=== PATIENT | female | born 1955 | race Caucasian/White ===

== ENCOUNTER 2017-01-18 08:32 | Emergency (ER) | payer OTHER ==
[~2017-01-18] VITALS: Ht 162.6 cm; Wt 68.0 kg
[~2017-01-18 08:32] MED LIST: ACET-1175 PO; ATOR-24 PO; CLC100 PO; CYAN100T PO; FLX10 PO; GLC500 PO; IMT100 PO; LEVO88TA3 PO; LISI-461; LISI10TA PO; MISO200T PO; ONDA4TAB46 PO; RANI150T3 PO; REPA0.5T PO; SITA100T3 PO; TRAM-10 PO; TRAZ50TA35 PO; VENL150C PO
[2017-01-18 08:40] VITALS: Ht 162.6 cm; Wt 68.0 kg
[2017-01-18 09:38] LABS: HEMATOCRIT 38.5 % (37-47); MEAN CELL VOLUME 86.3 fL (80-100); MEAN CORPUSCULAR HGB CONC 34.8 g/dl (32-36); MEAN PLATELET VOLUME 9.3 fL (7.4-10.4); PLATELET COUNT 297 K/uL (130-400); RED BLOOD COUNT 4.46 M/uL (4.2-5.4); WHITE BLOOD COUNT 14.82 K/uL (4.8-10.8)
--- NOTE | 2017-01-18 09:45 | DIAGNOSTIC IMAGING REPORT ---
CHEST ONE VIEW PORTABLE CLINICAL HISTORY: EPIGASTRIC PAIN nausea COMPARISON STUDY: 06/18/2015 FINDINGS: Several old right-sided rib fractures. Lungs are considered clear. Diaphragms smooth. IMPRESSION: No acute process. Electronically signed by: Konrad Issa M.D. 01/18/2017 9:43 AM Dictated Date/Time: 01/18/2017 9:43 AM
[2017-01-18 09:46] LABS: CALCIUM 9.3 mg/dl (8.5-10.1); CREATININE 1.3 mg/dl (0.60-1.20); POTASSIUM 3.8 mmol/L (3.5-5.1)
[2017-01-18 09:49] LABS: ALB/GLOB RATIO 1.1 (0.9-2)
[2017-01-18] MEDS ORDERED: ONDANSETRON INJ 2 MG/ML 2 ML VIAL IV STA (09:49)
[2017-01-18] MEDS ORDERED: SODIUM CHLORIDE 0.9% 1000ML 1,000 ML IV STA (09:49)
[2017-01-18 10:15] LABS: BASO % 0.1 %; BASO ABS # 0.02 K/uL (0-0.2); COMPLETE YES; EOS % 0.5 %; IG% 0.2 %; LYMPH % 9.9 %; LYMPH ABS # 1.46 K/uL (1.2-3.4); NEUT % 86.3 %
[2017-01-18] MEDS ORDERED: ONDA4TAB10 SL (11:38)
--- NOTE | 2017-01-18 11:39 | EMERGENCY ROOM VISIT NOTE ---
History Report prepared by oLy: Farhan Jennings Under the Supervision of: Dr. Asif Painter D.O. First contact with patient: 09:43 Chief Complaint: ILLNESS Stated Complaint: CHEST PAIN History of Present Illness The patient is a 61 year old female who presents to the Emergency Room with complaints of recurrent nausea & vomiting for the past several weeks. The patient notes that the vomiting was worse last night. The vomit was yellow and contained dried blood. The patient states that she vomits 20-30 times per day. The patient has intermittently taken Zofran, which usually helps very little. The patient was feeling pretty good this morning until she suddenly became lightheaded at work. At that time she was also experiencing chest pain and was having trouble moving her jaw. The patient denies diarrhea or burning with urination. She has been having bowel movements. The patient has had multiple previous endoscopies. The patient has a history of gastric ulcers and is s/p gastric bypass. Source of History: patient Onset: several weeks Position: other (GI) Quality: other (nausea & vomiting) Timing: other (recurrent) Modifying Factors (Relieving): other (Zofran) Associated Symptoms: + chest pain, No diarrhea, No urinary symptoms Review of Systems See HPI for pertinent positives & negatives. A total of 10 systems reviewed and were otherwise negative. Past Medical & Surgical Medical Problems: (1) Alcohol Abuse-Unspec (2) Anemia, iron deficiency (3) Depressive Disorder Nec (4) Diab Marita Wo Comp Type Ii,Or Nos/Uncontrolled (5) Hyperlipidemia Nec/Nos (6) Hypertension Nos (7) Hypothyroidism (8) Tobacco Use Disorder Surgical Problems: (1) Status post appendectomy (2) Status post cholecystectomy (3) Status post gastric bypass for obesity (4) Status post hysterectomy Family History Diabetes mellitus FH: heart disease Social History Smoking Status: Current Some Day Smoker Alcohol Use: none Drug Use: none Marital Status: Occupation Status: employed Current/Historical Medications Scheduled Acetaminophen (Tylenol), 650 MG PO Q4HR PRN Atorvastatin (Lipitor), 40 MG PO DAILY Cyanocobalamin (Vitamin B-12), 100 MCG PO DAILY Docusate Sodium (Docusate Sodium), 100 MG PO BID Levothyroxine Sodium (Levothyroxine Sodium), 1 TAB PO DAILY Lisinopril (Prinivil), 10 MG PO DAILY Lisinopril (Lisinopril), 10 DAILY Metformin HCL (Glucophage *), 1,000 MG PO BID Misoprostol (Cytotec), 100 MCG PO QID Ondasetron Odt (Zofran Odt), 4 MG SL Q6H Ranitidine Hcl (Zantac), 150 MG PO BID Repaglinide (Prandin), 0.5 MG PO AC Sitagliptin Phosphate (Januvia), 100 MG PO DAILY Sumatriptan Succinate (Imitrex), 100 MG PO PRN Venlafaxine Hcl (Effexor Xr), 150 MG PO DAILY Scheduled PRN Cyclobenzaprine HCl (Cyclobenzaprine HCl), MG PO TID PRN for Muscle Spasms Ondansetron Hcl (Zofran), 4 MG PO Q6 PRN for Nausea Tramadol (Ultram), 50 MG PO Q6 PRN for Pain Trazodone Hcl (Trazodone), 50 MG PO HS PRN for Sleep Allergies Coded Allergies: Sulfa Antibiotics (Verified Allergy, Severe, FACE/THROAT SWELL UP, 01/18/17 ) Physical Exam Vital Signs Date Time Temp Pulse Resp B/P Pulse Ox O2 Delivery O2 Flow Rate FiO2 01/18/17 11:02 98 16 121/68 01/18/17 10:03 103 16 120/69 01/18/17 08:40 92 Room Air Physical Exam CONSTITUTIONAL/VITAL SIGNS: Reviewed / noted above. GENERAL: Non-toxic in appearance. INTEGUMENTARY: Warm, dry, and [place]. HEAD: Normocephalic. EYES: without scleral icterus or trauma. ENT/OROPHARYNX: clear and moist. LYMPHADENOPATHY/NECK: Is supple without lymphadenopathy or meningismus. RESPIRATORY: Lungs clear and equal. CARDIOVASCULAR: Regular rate and rhythm. GI/ABDOMEN: Soft and nontender. No organomegaly or pulsatile mass. No rebound or guarding. Normal bowel sounds. EXTREMITIES: Warm and well perfused. BACK: No CVA tenderness. NEUROLOGICAL: Intact without focal deficits. PSYCHIATRIC: normal affect. MUSCULOSKELETAL: Normally developed with good muscle tone. Medical Decision & Procedures ER Provider Diagnostic Interpretation: X ray results and stated below per my interpretation and radiology interpretation. CHEST ONE VIEW PORTABLE CLINICAL HISTORY: EPIGASTRIC PAIN nausea COMPARISON STUDY: 06/18/2015 FINDINGS: Several old right-sided rib fractures. Lungs are considered clear. Diaphragms smooth. IMPRESSION: No acute process. Electronically signed by: Konrad Issa M.D. 01/18/2017 9:43 AM Dictated Date/Time: 01/18/2017 9:43 AM Laboratory Results 01/18/17 08:38 Red Blood Count 4.46, Mean Corpuscular Volume 86.3, Mean Corpuscular Hemoglobin 30.0, Mean Corpuscular Hemoglobin Concent 34.8, Mean Platelet Volume 9.3, Neutrophils (%) (Auto) 86.3, Lymphocytes (%) (Auto) 9.9, Monocytes (%) (Auto) 3.0, Eosinophils (%) (Auto) 0.5, Basophils (%) (Auto) 0.1, Neutrophils # (Auto) 12.80, Lymphocytes # (Auto) 1.46, Monocytes # (Auto) 0.44, Eosinophils # (Auto) 0.07, Basophils # (Auto) 0.02 01/18/17 08:38 Test 01/18/17 08:38 White Blood Count 14.82 K/uL (4.8-10.8) Red Blood Count 4.46 M/uL (4.2-5.4) Hemoglobin 13.4 g/dL (12.0-16.0) Hematocrit 38.5 % (37-47) Mean Corpuscular Volume 86.3 fL (80-100) Mean Corpuscular Hemoglobin 30.0 pg (25-34) Mean Corpuscular Hemoglobin Concent 34.8 g/dl (32-36) Platelet Count 297 K/uL (130-400) Mean Platelet Volume 9.3 fL (7.4-10.4) Neutrophils (%) (Auto) 86.3 % Lymphocytes (%) (Auto) 9.9 % Monocytes (%) (Auto) 3.0 % Eosinophils (%) (Auto) 0.5 % Basophils (%) (Auto) 0.1 % Neutrophils # (Auto) 12.80 K/uL (1.4-6.5) Lymphocytes # (Auto) 1.46 K/uL (1.2-3.4) Monocytes # (Auto) 0.44 K/uL (0.11-0.59) Eosinophils # (Auto) 0.07 K/uL (0-0.5) Basophils # (Auto) 0.02 K/uL (0-0.2) RDW Standard Deviation 42.3 fL (36.4-46.3) RDW Coefficient of Variation 13.3 % (11.5-14.5) Immature Granulocyte % (Auto) 0.2 % Immature Granulocyte # (Auto) 0.03 K/uL (0.00-0.02) Red Blood Cell Morphology Unremarkable Anion Gap 12.0 mmol/L (3-11) Est Creatinine Clear Calc Drug Dose 43.6 ml/min Estimated GFR () 51.6 Estimated GFR (Non- 44.6 BUN/Creatinine Ratio 10.0 (10-20) Calcium Level 9.3 mg/dl (8.5-10.1) Total Bilirubin 0.8 mg/dl (0.2-1) Aspartate Amino Transf (AST/SGOT) 13 U/L (15-37) Alanine Aminotransferase (ALT/SGPT) 16 U/L (12-78) Alkaline Phosphatase 87 U/L (45-117) Total Protein 7.7 gm/dl (6.4-8.2) Albumin 4.0 gm/dl (3.4-5.0) Globulin 3.7 gm/dl (2.5-4.0) Albumin/Globulin Ratio 1.1 (0.9-2) Laboratory results as stated above per my review. Medications Administered Medications (Trade) Dose Ordered Sig/Aaron Route Start Time Stop Time Status Last Admin Dose Admin Sodium Chloride (Nss 1000ml) 1,000 ml @ 999 mls/hr Q1H1M STAT IV 01/18/17 09:49 01/18/17 10:49 DC 01/18/17 10:01 999 MLS/HR Ondansetron HCl (Zofran Inj) 4 mg NOW STAT IV 01/18/17 09:49 01/18/17 09:50 DC 01/18/17 10:01 4 MG ECG Indication: chest pain Rate (beats per minute): 115 Rhythm: sinus tachycardia Findings: no acute ischemic change, no ectopy ED Course 0944: Previous medical records were reviewed. The patient was evaluated in room B3b. A complete history and physical examination was performed. 0949: NSS 1000 ml @ 999 mls/hr, Zofran 4 mg IV. 1140: Reassessed the patient. Discussed the discharge instructions with her. She verbalized understanding and agreement. She would like something for her headache before being discharged. 1145: Morphine Sulfate 4 mg IV. Medical Decision Differential diagnosis: Etiologies such as gastroenteritis, food borne illness, infections, appendicitis , diverticulitis, inflammatory bowel disease, obstruction, GI bleed, biliary pathology, as well as others were entertained. This is a 61-year-old female who presents to the ED with a chief complaint of nausea and vomiting that has been going on for "a long time". She states that she feels it is reflux. He has recently gotten worse. The patient reports a history of gastric bypass surgery. She has not seen a occasional caregiver for the symptoms recently. She reports vomiting 2 this morning as well as feeling a little lightheaded and sometimes some chest discomfort after vomiting. Her physical exam was unremarkable. She is in no distress. Vital signs are stable. Chest x-ray was negative for acute disease. White blood cell count was 14. Complete medical panel was unremarkable. EKG shows sinus tach. The patient was treated with IV fluids and IV Zofran. She was told results the test. She was told to follow-up with her occasional caregiver. She was given a shot of IV Morphine for a headache prior to DC. She will return for any worsening or new concerns. Impression Primary Impression: Vomiting Scribe Attestation The scribe's documentation has been prepared under my direction and personally reviewed by me in its entirety. I confirm that the note above accurately reflects all work, treatment, procedures, and medical decision making performed by me. Departure Information Dispostion Home / Self-Care Prescriptions Ondasetron Odt (ZOFRAN ODT) 4 Mg Tab 4 MG SL Q6H for Nausea, #15 TAB Prov: Asif Painter D.O. 01/18/17 Referrals Nolan Royal M.D.([facility]) (PCP) Forms HOME CARE DOCUMENTATION FORM, IMPORTANT VISIT INFORMATION, WORK / SCHOOL INSTRUCTIONS Patient Instructions My [facility] Additional Instructions Follow-up with your occasional caregiver for recheck. Call today for an appointment. Follow-up with your family doctor this week for recheck. Zofran: Allow one tablet to dissolve under the tongue every 6 hours as needed for nausea or vomiting. Follow-up with your doctor for further care and evaluation in 1-2 days. Return to the emergency department for worsening or new symptoms or any concerns. You have been examined and treated today on an emergency basis only. This is not a substitute for, or an effort to provide, complete comprehensive medical care. It is impossible to recognize and treat all injuries or illnesses in a single emergency department visit. It is therefore important that you follow up closely with your doctor. Call as soon as possible for an appointment.
[2017-01-18] MEDS ORDERED: MoRPHine SULFATE 4 MG/ML 1 ML CARP\\VIAL IV STA (11:42)
[2017-01-18 12:34] VITALS: BP 107/71; PULSE 113; O2SAT 98
== END 2017-01-18 12:36 | disposition home or self-care (01) ==
LOC: EDBD 08:32 → C.EDB 08:36
DX: R11.10 Vomiting, unspecified (principal); D50.9 Iron deficiency anemia, unspecified; F32.9 Major depressive disorder, single episode, unspecified; E11.9 Type 2 diabetes mellitus without complications; E78.5 Hyperlipidemia, unspecified; I10 Essential (primary) hypertension; E03.9 Hypothyroidism, unspecified; F17.200 Nicotine dependence, unspecified, uncomplicated; Z83.3 Family history of diabetes mellitus; Z82.49 Family history of ischemic heart disease and other diseases of the circulatory system; Z79.899 Other long term (current) drug therapy; Z98.84 Bariatric surgery status

== ENCOUNTER 2017-01-24 10:13 | Emergency (ER) | payer OTHER ==
[~2017-01-24] VITALS: Ht 165.1 cm; Wt 64.8 kg
[~2017-01-24 10:13] MED LIST changes: +ONDA4TAB10 SL
[2017-01-24 10:17] VITALS: Ht 165.1 cm; Wt 64.8 kg
[2017-01-24] MEDS ORDERED: MoRPHine SULFATE 4 MG/ML 1 ML CARP\\VIAL IV STA ×2 (10:39→11:42)
[2017-01-24] MEDS ORDERED: ONDANSETRON INJ 2 MG/ML 2 ML VIAL IV STA (10:39)
[2017-01-24] MEDS ORDERED: SODIUM CHLORIDE 0.9% 1000ML 1,000 ML IV STA (10:39)
[2017-01-24] MEDS ORDERED: SODIUM CHLORIDE 0.9% 500ML 500 ML IV STA (10:39)
--- NOTE | 2017-01-24 10:45 | EMERGENCY ROOM VISIT NOTE ---
History Report prepared by Loy: Wilmer Quevedo Under the Supervision of: Dr. Misti Childers M.D. First contact with patient: 10:26 Chief Complaint: DEHYDRATION Stated Complaint: DEHYDRATED, HEADACHE, NAUSEA-SENT BY 'S OFFICE History of Present Illness The patient is a 61 year old female who presents to the Emergency Room with complaints of persistent nausea for the past 6 days. The patient also complains of vomiting, headache, lightheadedness and dehydration. She notes that she is not able to keep anything down including water. Last week, the patient presented to the ED via ALS for similar symptoms and notes that her symptoms have not improved. The patient had an appointment with GI this morning who recommended she present to the ED for further evaluation and testing. She denies fever at this time. Source of History: patient Onset: the past 6 days Position: other (global) Timing: other (persistent) Associated Symptoms: + headache, + vomiting, No fevers Note: Other associated symptoms: lightheadedness, dehydration Review of Systems See HPI for pertinent positives & negatives. A total of 10 systems reviewed and were otherwise negative. Past Medical & Surgical Medical Problems: (1) Alcohol Abuse-Unspec (2) Anemia, iron deficiency (3) Depressive Disorder Nec (4) Diab Marita Wo Comp Type Ii,Or Nos/Uncontrolled (5) Hyperlipidemia Nec/Nos (6) Hypertension Nos (7) Hypothyroidism (8) Tobacco Use Disorder Surgical Problems: (1) Status post appendectomy (2) Status post cholecystectomy (3) Status post gastric bypass for obesity (4) Status post hysterectomy Family History Diabetes mellitus FH: heart disease Social History Smoking Status: Current Every Day Smoker Alcohol Use: none Drug Use: none Marital Status: Occupation Status: employed Current/Historical Medications Scheduled Folic Acid (Folvite), 1 MG PO DAILY Nortriptyline (Pamelor), 25 MG PO HS Omeprazole (Prilosec), 20 MG PO DAILY Omeprazole (Prilosec), 1 CAP PO BID Venlafaxine Hcl (Venlafaxine Extended Rel), 75 MG PO DAILY Scheduled PRN Cyclobenzaprine Hcl (Flexeril), 10 MG PO TID PRN for Muscle Spasms Ondansetron Odt (Zofran Odt), 8 MG SL Q6H PRN for Nausea Trazodone Hcl (Trazodone), 1-2 TAB PO HS PRN for Sleep Allergies Coded Allergies: Sulfa Antibiotics (Verified Allergy, Severe, FACE/THROAT SWELL UP, 01/24/17 ) Physical Exam Vital Signs Date Time Temp Pulse Resp B/P Pulse Ox O2 Delivery O2 Flow Rate FiO2 01/24/17 15:15 68 20 115/78 99 01/24/17 13:57 36.6 73 20 120/70 99 Room Air 01/24/17 12:22 72 18 111/55 95 Room Air 01/24/17 11:41 67 18 111/53 97 Room Air 01/24/17 11:05 76 01/24/17 10:17 36.9 88 20 115/75 98 Room Air Physical Exam Vital signs reviewed. General: Well-appearing female, in significant distress. HEENT: No scleral icterus, PERRLA, neck supple. Atraumatic. Dry mucus membranes. Cardiovascular: Regular rate and rhythm, no extra sounds. Pulmonary: Clear to auscultation bilaterally, normal work of breathing. Abdomen: Soft, mild diffuse abdominal tender, no rebound or guarding, positive bowel sounds. Musculoskeletal: Atraumatic, no peripheral edema. Neurologic: Patient awake alert and oriented x 3, full strength in all 4 extremities. Cranial nerves 2 through 12 grossly intact. Skin: Warm, dry, no rash Medical Decision & Procedures ER Provider Diagnostic Interpretation: X-ray results as stated below per interpretation by me and the radiologist: PA CHEST WITH ABDOMINAL SERIES CLINICAL HISTORY: Generalized abdominal pain. Vomiting. FINDINGS: A PA chest radiograph is compared to study dated 01/18/2017. The cardiac silhouette is normal for projection. There is atherosclerotic calcification of the thoracic aorta. Chronic interstitial thickening is similar to previous. There is no airspace consolidation or pleural effusion. No pneumothorax is seen. The skeletal structures are osteopenic. There are healed right-sided rib fractures. Degenerative changes and mild scoliosis are noted in the thoracic spine. Supine and erect abdominal radiographs are correlated with abdominal CT dated 06/18/2015. Suture material is present at the level of the esophageal hiatus. When correlated with prior CT scans, this is consistent with previous [place]-en-Y gastric bypass surgery. No bowel obstruction is identified. No evidence of intraperitoneal free air is seen. Moderate colonic fecal retention is observed. There are numerous calcified phleboliths in the pelvis. There is mild lumbosacral spondylosis. The bony pelvis is grossly intact. IMPRESSION: 1. No active disease in the chest. 2. Postoperative changes are consistent with a history of [place]-en-Y gastric bypass surgery when correlated with the prior CT scan. 3. There is no radiographic evidence of bowel obstruction. No intraperitoneal free air is seen. 4. Moderate colonic fecal retention. Electronically signed by: Yury Brown M.D. 01/24/2017 11:46 AM Dictated Date/Time: 01/24/2017 11:42 AM Laboratory Results 01/24/17 10:54 Red Blood Count 3.93, Mean Corpuscular Volume 88.5, Mean Corpuscular Hemoglobin 30.3, Mean Corpuscular Hemoglobin Concent 34.2, Mean Platelet Volume 8.7, Neutrophils (%) (Auto) 65.2, Lymphocytes (%) (Auto) 27.0, Monocytes (%) (Auto) 5.4, Eosinophils (%) (Auto) 1.8, Basophils (%) (Auto) 0.4, Neutrophils # (Auto) 3.24, Lymphocytes # (Auto) 1.34, Monocytes # (Auto) 0.27, Eosinophils # (Auto) 0.09, Basophils # (Auto) 0.02 01/24/17 10:54 Test 01/24/17 10:54 White Blood Count 4.97 K/uL (4.8-10.8) Red Blood Count 3.93 M/uL (4.2-5.4) Hemoglobin 11.9 g/dL (12.0-16.0) Hematocrit 34.8 % (37-47) Mean Corpuscular Volume 88.5 fL (80-100) Mean Corpuscular Hemoglobin 30.3 pg (25-34) Mean Corpuscular Hemoglobin Concent 34.2 g/dl (32-36) Platelet Count 250 K/uL (130-400) Mean Platelet Volume 8.7 fL (7.4-10.4) Neutrophils (%) (Auto) 65.2 % Lymphocytes (%) (Auto) 27.0 % Monocytes (%) (Auto) 5.4 % Eosinophils (%) (Auto) 1.8 % Basophils (%) (Auto) 0.4 % Neutrophils # (Auto) 3.24 K/uL (1.4-6.5) Lymphocytes # (Auto) 1.34 K/uL (1.2-3.4) Monocytes # (Auto) 0.27 K/uL (0.11-0.59) Eosinophils # (Auto) 0.09 K/uL (0-0.5) Basophils # (Auto) 0.02 K/uL (0-0.2) RDW Standard Deviation 44.3 fL (36.4-46.3) RDW Coefficient of Variation 13.6 % (11.5-14.5) Immature Granulocyte % (Auto) 0.2 % Immature Granulocyte # (Auto) 0.01 K/uL (0.00-0.02) Anion Gap 8.0 mmol/L (3-11) Est Creatinine Clear Calc Drug Dose 53.8 ml/min Estimated GFR () 70.9 Estimated GFR (Non- 61.2 BUN/Creatinine Ratio 10.3 (10-20) Calcium Level 8.7 mg/dl (8.5-10.1) Magnesium Level 2.3 mg/dl (1.8-2.4) Total Bilirubin 0.3 mg/dl (0.2-1) Direct Bilirubin 0.1 mg/dl (0-0.2) Aspartate Amino Transf (AST/SGOT) 8 U/L (15-37) Alanine Aminotransferase (ALT/SGPT) 28 U/L (12-78) Alkaline Phosphatase 79 U/L (45-117) Total Protein 6.7 gm/dl (6.4-8.2) Albumin 3.3 gm/dl (3.4-5.0) Lipase 243 U/L (73-393) Laboratory results per my review. Medications Administered Medications (Trade) Dose Ordered Sig/Aaron Route Start Time Stop Time Status Last Admin Dose Admin Morphine Sulfate (MoRPHine SULFATE INJ) 4 mg NOW STAT IV 01/24/17 10:39 01/24/17 10:41 DC 01/24/17 11:02 4 MG Ondansetron HCl 4 mg 4 mg NOW STAT IV 01/24/17 10:39 01/24/17 10:41 DC 01/24/17 11:01 4 MG Sodium Chloride 1,000 ml @ 150 mls/hr Q6H40M STAT IV 01/24/17 10:39 01/24/17 15:57 DC 01/24/17 11:40 150 MLS/HR Sodium Chloride (Nss 500ml) 500 ml @ 999 mls/hr Q31M STAT IV 01/24/17 10:39 01/24/17 11:09 DC 01/24/17 11:01 999 MLS/HR Morphine Sulfate (MoRPHine SULFATE INJ) 4 mg NOW STAT IV 01/24/17 11:42 01/24/17 11:43 DC 01/24/17 11:54 4 MG Miscellaneous (Soap Suds Enema) 1 ea NOW STAT NE 01/24/17 11:51 01/24/17 11:53 DC 01/24/17 12:33 1 EA Magnesium Citrate (Citrate Of Magnesia Soln) 300 ml NOW ONCE PO 01/24/17 13:15 01/24/17 13:16 DC 01/24/17 13:18 296 ML Methylprednisolone Sodium Succinate (Solu-Medrol IV) 125 mg NOW STAT IV 01/24/17 14:02 01/24/17 14:04 DC 01/24/17 14:18 125 MG Acetaminophen/ Hydrocodone Bitart 1 tab 1 tab NOW STAT PO 01/24/17 14:02 01/24/17 14:04 DC 01/24/17 14:18 1 TAB Promethazine HCl/ Sodium Chloride (Phenergan Inj/ Nss 50ml) 50.5 ml @ 204 mls/hr NOW STAT IV 01/24/17 14:02 01/24/17 14:16 DC 01/24/17 14:19 204 MLS/HR ED Course 1036: Past medical records reviewed. The patient was evaluated in room A4. A complete history and physical examination was performed. 1039: Ordered NSS 500 ml @ 999 mls/hr IV, NSS 1000 ml @ 150 mls/hr IV, Zofran Inj 4 mg IV, Morphine Sulfate 4 mg IV. 1142: Ordered Morphine Sulfate 4 mg IV. 1151: Ordered Soap Suds Enema 1 ea NE. 1315: Ordered Magnesium Citrate 300 ml PO. 1402: Ordered Promethazine HCl 12.5 mg/ NSS 50.5 ml @ 204 mls/hr IV, [place] 5/ 325 Tab 1 tab PO, Solu-Medrol IV 125 mg IV. 1445: Upon reevaluation, the patient appeared to have improvement of her symptoms. I discussed findings with her. She verbalized agreement of the treatment plan. The patient was discharged home. Medical Decision Differential diagnosis: Etiologies such as gastroenteritis, food borne illness, infections, appendicitis , diverticulitis, inflammatory bowel disease, obstruction, GI bleed, biliary pathology, as well as others were entertained. This pt was evaluated and appeared to be in no distress. IV access was obtained and lab work was drawn. PT was placed on the quality assurance monitor. She was hydrated with NSS and given IV morphine and zofran. She continued to c/o a headache and nausea. Abd XR series is c/w constipation. Pt felt comfortable that this is a typical [place] for her, therefore no further imaging of the head was performed. Pt was given po mag citrate for constipation, IV solu-medral and po norco. She did require additional morphine for pain. The pt was informed of the findings. She was asked to f/u with PCP this week and GI for further management. I do not feel comfortable Rx controlled medications to this pt as she is exhibiting some red flags with pain med requests. She was asked to continue her medications as prescribed and return to the ED for worsening of symptoms or any medical concerns. Impression Primary Impression: Constipation by delayed colonic transit Additional Impression: Migraine Scribe Attestation The scribe's documentation has been prepared under my direction and personally reviewed by me in its entirety. I confirm that the note above accurately reflects all work, treatment, procedures, and medical decision making performed by me. Departure Information Dispostion Home / Self-Care Prescriptions Omeprazole (PRILOSEC) 20 Mg Cap 1 CAP PO BID for 14 Days, #28 CAP 3 Refills Prov: Misti Childers M.D. 01/24/17 Referrals Nolan Royal M.D.([facility]) (PCP) Forms HOME CARE DOCUMENTATION FORM, IMPORTANT VISIT INFORMATION, WORK / SCHOOL INSTRUCTIONS Patient Instructions My [facility] Additional Instructions Diagnosis: Constipation, migraine Prilosec 20 mg twice daily for 2 weeks. MiraLAX 1 capful 1-2 times daily for regular bowel movement. Increase the fiber in your diet. Follow-up with your educational program director and primary care physician this week for reevaluation. Return to the ER for worsening of symptoms or any medical concerns. Problem Qualifiers Additional Impression: Migraine Migraine type: unspecified Status migrainosus presence: without status migrainosus Intractability: not intractable Qualified Codes: G43.909 - Migraine, unspecified, not intractable, without status migrainosus
[2017-01-24] MEDS ORDERED: CYCL10TA6 PO (10:50)
[2017-01-24] MEDS ORDERED: NORT25CA PO (10:50)
[2017-01-24] MEDS ORDERED: FOLI1TAB7 PO (10:50)
[2017-01-24] MEDS ORDERED: VENL75CA73 PO (10:50)
[2017-01-24] MEDS ORDERED: ONDA8TAB62 SL (10:50)
[2017-01-24] MEDS ORDERED: PRLSR20 PO (10:50)
[2017-01-24] MEDS ORDERED: TRAZ100T29 PO (10:50)
[2017-01-24 11:08] LABS: BASO % 0.4 %; BASO ABS # 0.02 K/uL (0-0.2); COMPLETE YES; EOS % 1.8 %; HEMATOCRIT 34.8 % (37-47); IG% 0.2 %; LYMPH ABS # 1.34 K/uL (1.2-3.4); MEAN CELL VOLUME 88.5 fL (80-100); MEAN CORPUSCULAR HEMOGLOBIN 30.3 pg (25-34); MEAN CORPUSCULAR HGB CONC 34.2 g/dl (32-36); MEAN PLATELET VOLUME 8.7 fL (7.4-10.4); MONO % 5.4 %; NEUT % 65.2 %; PLATELET COUNT 250 K/uL (130-400); RED BLOOD COUNT 3.93 M/uL (4.2-5.4); WHITE BLOOD COUNT 4.97 K/uL (4.8-10.8)
[2017-01-24 11:24] LABS: BUN/CREATININE RATIO 10.3 (10-20); CALCIUM 8.7 mg/dl (8.5-10.1); MAGNESIUM 2.3 mg/dl (1.8-2.4); POTASSIUM 3.4 mmol/L (3.5-5.1)
--- NOTE | 2017-01-24 11:47 | DIAGNOSTIC IMAGING REPORT ---
PA CHEST WITH ABDOMINAL SERIES CLINICAL HISTORY: Generalized abdominal pain. Vomiting. FINDINGS: A PA chest radiograph is compared to study dated 01/18/2017. The cardiac silhouette is normal for projection. There is atherosclerotic calcification of the thoracic aorta. Chronic interstitial thickening is similar to previous. There is no airspace consolidation or pleural effusion. No pneumothorax is seen. The skeletal structures are osteopenic. There are healed right-sided rib fractures. Degenerative changes and mild scoliosis are noted in the thoracic spine. Supine and erect abdominal radiographs are correlated with abdominal CT dated 06/18/2015. Suture material is present at the level of the esophageal hiatus. When correlated with prior CT scans, this is consistent with previous [place]-en-Y gastric bypass surgery. No bowel obstruction is identified. No evidence of intraperitoneal free air is seen. Moderate colonic fecal retention is observed. There are numerous calcified phleboliths in the pelvis. There is mild lumbosacral spondylosis. The bony pelvis is grossly intact. IMPRESSION: 1. No active disease in the chest. 2. Postoperative changes are consistent with a history of [place]-en-Y gastric bypass surgery when correlated with the prior CT scan. 3. There is no radiographic evidence of bowel obstruction. No intraperitoneal free air is seen. 4. Moderate colonic fecal retention. Electronically signed by: Yury Brown M.D. 01/24/2017 11:46 AM Dictated Date/Time: 01/24/2017 11:42 AM
[2017-01-24] MEDS ORDERED: SOAP SUDS ENEMA PR STA (11:51)
[2017-01-24] MEDS ORDERED: MAGNESIUM CITRATE 296 ML/BTL PO ONE (13:15)
[2017-01-24 13:57] VITALS: TEMP 36.6
[2017-01-24] MEDS ORDERED: HYDROCODONE/ACETAMOPHEN 5/325MG TAB PO STA (14:02)
[2017-01-24] MEDS ORDERED: PROMETHAZINE HCL INJ 12.5 MG in SODIUM CHLORIDE 0.9% 50ML 50 ML IV STA (14:02)
[2017-01-24] MEDS ORDERED: METHYLPREDNISOLONE 125 MG VIAL IV STA (14:02)
[2017-01-24] MEDS ORDERED: OMEP20CA9 PO (14:53)
[2017-01-24 15:15] VITALS: BP 115/78; PULSE 68; O2SAT 99
== END 2017-01-24 15:21 | disposition home or self-care (01) ==
LOC: C.EDB 10:14 → C.EDA 15:21
DX: K59.01 Slow transit constipation (principal); G43.909 Migraine, unspecified, not intractable, without status migrainosus; F17.200 Nicotine dependence, unspecified, uncomplicated; F32.9 Major depressive disorder, single episode, unspecified; E11.9 Type 2 diabetes mellitus without complications; I10 Essential (primary) hypertension; E78.5 Hyperlipidemia, unspecified; E03.9 Hypothyroidism, unspecified; Z90.49 Acquired absence of other specified parts of digestive tract; Z98.84 Bariatric surgery status; Z90.710 Acquired absence of both cervix and uterus

== ENCOUNTER 2017-02-19 12:58 | Emergency (ER) | payer OTHER ==
[~2017-02-19] VITALS: Ht 165.1 cm; Wt 67.2 kg
[~2017-02-19 12:58] MED LIST changes: -ACET-1175 PO; -ATOR-24 PO; -CLC100 PO; -CYAN100T PO; +CYCL10TA6 PO; -FLX10 PO; +FOLI1TAB7 PO; -GLC500 PO; -IMT100 PO; -LEVO88TA3 PO; -LISI-461; -LISI10TA PO; -MISO200T PO; +NORT25CA PO; +OMEP20CA9 PO; -ONDA4TAB10 SL; -ONDA4TAB46 PO; +ONDA8TAB62 SL; +PRLSR20 PO; -RANI150T3 PO; -REPA0.5T PO; -SITA100T3 PO; -TRAM-10 PO; +TRAZ100T29 PO; -TRAZ50TA35 PO; -VENL150C PO; +VENL75CA73 PO
[2017-02-19 13:04] VITALS: TEMP 36.5; Ht 165.1 cm; Wt 67.2 kg
[2017-02-19] MEDS ORDERED: SODIUM CHLORIDE 0.9% 1000ML 1,000 ML IV STA (13:20)
[2017-02-19] MEDS ORDERED: ONDANSETRON INJ 2 MG/ML 2 ML VIAL IV STA (13:20)
[2017-02-19] MEDS: MoRPHine SULFATE 4 MG/ML 1 ML CARP\\VIAL IV PRN ×2 (13:29→15:11)
[2017-02-19 13:58] LABS: BASO % 0.5 %; BASO ABS # 0.03 K/uL (0-0.2); COMPLETE YES; EOS % 1.4 %; HEMATOCRIT 34.4 % (37-47); IG% 0.2 %; LYMPH ABS # 1.87 K/uL (1.2-3.4); MEAN CELL VOLUME 89.1 fL (80-100); MEAN CORPUSCULAR HEMOGLOBIN 29.5 pg (25-34); MEAN CORPUSCULAR HGB CONC 33.1 g/dl (32-36); MEAN PLATELET VOLUME 8.8 fL (7.4-10.4); MONO % 3.9 %; PLATELET COUNT 285 K/uL (130-400); RED BLOOD COUNT 3.86 M/uL (4.2-5.4); WHITE BLOOD COUNT 5.66 K/uL (4.8-10.8)
--- NOTE | 2017-02-19 13:59 | DIAGNOSTIC IMAGING REPORT ---
CHEST ONE VIEW PORTABLE HISTORY: Generalized abdominal pain. COMPARISON: Chest 01/24/2017. FINDINGS: A few linear densities at the left lower lung zone favor subsegmental atelectasis. The lungs are otherwise clear. The heart is normal in size. No pleural effusions. No pneumothorax. IMPRESSION: Left basilar subsegmental atelectasis. Otherwise, no acute process within the chest. Electronically signed by: Matty Matias M.D. 02/19/2017 1:57 PM Dictated Date/Time: 02/19/2017 1:54 PM
[2017-02-19] MEDS ORDERED: MISO1TAB10 PO (14:11)
--- NOTE | 2017-02-19 14:19 | DIAGNOSTIC IMAGING REPORT ---
CT SCAN OF THE ABDOMEN AND PELVIS WITHOUT IV CONTRAST CLINICAL HISTORY: Generalized abdominal pain status post endoscopy. COMPARISON STUDY: Abdominal CT dated 06/18/2015. TECHNIQUE: CT scan of the abdomen and pelvis is performed from the lung bases to the proximal femora. Images are reviewed in the axial, sagittal, and coronal planes. IV contrast was not administered for this examination as per the front clinician. Note that the examination was performed in significantly suboptimal fashion without IV contrast. Automated dose control exposure was utilized. CT DOSE: 300.39 mGy.cm FINDINGS: Lung bases: The heart is normal in size and without pericardial effusion. There is no airspace consolidation typical for pneumonia or pleural effusion. A 9 mm pulmonary nodule at the left lung base seen on image #51. A 3 mm pleural-based nodule the right lung base is again seen on image #45. These are unchanged from 2015. Dependent atelectasis is observed. Liver: The unenhanced liver is normal in size, contour, and attenuation. There is mild central intrahepatic biliary ductal dilatation. Gallbladder: Not identified and presumed surgically absent. Spleen: Normal in size and attenuation. Pancreas: Atrophic and grossly unremarkable. Adrenal glands: There is mild nodular thickening of the adrenal glands. Kidneys: The unenhanced kidneys are atrophic and without hydronephrosis. There are bilateral extrarenal pelvises. There are no renal calculi identified. There is no evidence of contour deforming renal mass lesion. Abdominal vasculature: The abdominal aorta is normal in course and caliber noting advanced atherosclerotic calcification. Stomach and bowel: There are postoperative changes consistent with a Reno-en-Y gastric bypass surgery. No bowel obstruction is seen. There are scattered colonic diverticula without CT evidence of acute diverticulitis. Mild colonic fecal retention is observed. Enteric contrast is noted in the colon. The appendix is not identified and reported surgically absent. Peritoneum: There is no intraperitoneal free air or abdominal ascites. Lymphadenopathy: None. Pelvic viscera: The bladder is normal as visualized. The uterus is surgically absent. No adnexal lesion is seen. 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 This is unchanged from previous. Skeletal structures: The skeletal structures are osteopenic. There is mild/moderate lumbosacral spondylosis. No lytic or blastic lesions are seen. IMPRESSION: 1. Suboptimal examination without IV contrast. 2. There are no acute infectious or inflammatory findings in the abdomen or pelvis. 3. There are postoperative changes consistent with a Reno-en-Y gastric bypass procedure. No bowel obstruction is seen. 4. An 8 mm pulmonary nodule at the left lung base is unchanged from 2015. This is of low suspicion given long-term stability. 5. There are scattered colonic diverticula without CT evidence of acute diverticulitis. 6. Additional changes as above. Electronically signed by: Yury Brown M.D. 02/19/2017 2:17 PM Dictated Date/Time: 02/19/2017 2:04 PM
[2017-02-19 14:23] LABS: ALT/SGPT 14 U/L (12-78); AST/SGOT 8 U/L (15-37); BLOOD UREA NITROGEN 7 mg/dl (7-18); BUN/CREATININE RATIO 9.1 (10-20); CALCIUM 8.3 mg/dl (8.5-10.1); CARBON DIOXIDE 29 mmol/L (21-32); CHLORIDE 107 mmol/L (98-107); CREATININE 0.79 mg/dl (0.60-1.20); GLUCOSE 92 mg/dl (70-99); POTASSIUM 3.6 mmol/L (3.5-5.1); SODIUM 142 mmol/L (136-145)
[2017-02-19 14:24] LABS: ALKALINE PHOSPHATASE 71 U/L (45-117)
--- NOTE | 2017-02-19 15:35 | Progress Note ---
Progress Note Date of Service Feb 19, 2017. (Joi Welsh CRNP) Progress Note GI note: Pt is a 61 y/o female referred to ED by Dr. Christian for abd pain after EGD w dilation. Hx of Reno en Y gastric bypass, previous gastric anastamosis stenosis dilation before w/o issues. Today had EGD w repeat dilation done and then complained of severe epigastric abd pain radiating to below both ribs. She denies any n/v. In ED she had received Morphine 4mg IV but still having pain on the epigastric area. CT abd/pelvis and CXR reviewed - no signs of perforation after dilation. VS stable. Pt seen together w Dr. Haynes. Exam: AAOx3, in NAD. Chest clear to auscultation bilaterally. HR regular, no murmur or gallops. Abd soft, TTP on epigastric area, BS hypoactive. Pt prefers to be discharged home. We have discussed case together w Dr. Lambert ( ED physician) - recommended trial of GI cocktail, and symptomatic management before she is discharged home. Pt advised to call clinic if she still have severe abd pain or other concerning issues tomorrow. Pt may also consider referral back to GI Surgery for bypass revision if appropriate in the future. She has an appt to see ERIC Galarza at GI clinic on 02/26/17. Dr. Christian and Ms. Coburn have been notified of pt's ED visit today, and plans. (Joi Welsh CRNP) I performed a history and physical examination of the patient. I have discussed the patient's case, impression and plan with ERIC Diane on . Her note reflects my findings and plan. No signs of perforation. Patient wants to go home. She will stay on a liquid diet and call Dr. Christian with update in am. Shantanu Haynes MD (Shantanu Haynes MD)
--- NOTE | 2017-02-19 15:49 | EMERGENCY ROOM VISIT NOTE ---
History Report prepared by Loy: Karley Lancaster Under the Supervision of: Dr. Asif Painter D.O. First contact with patient: 13:12 Chief Complaint: ABDOMINAL PAIN Stated Complaint: ABD PAIN Nursing Triage Summary: PT PRESENTS TO ED VIA ALS FROM [facility] OFFICE S/P EGD. PT WAS HAVING EGD COMPLETED FOR ESOPHOGEAL STRETCHING. PT STATES HAS HAD IT DONE 15 TIMES IN THE PAST AND HAS NEVER HAD COMPLICATIONS RELATED TO THE PROCEDURE. PT STATES DEVELOPING EPIGASTRIC PAIN THAT RADIATES INTO STOMACH WITH NAUSEA. PT STATES RECEIVED ZOFRAN WHILE AT [facility] [place] WITH RELIEF. PT STATES HAVING GASTRIC BYPASS IN 1999 AND HAS HAD PROBLEMS SINCE. PT DENIES ANY OTHER SYMPTOMS History of Present Illness The patient is a 61 year old female who presents to the Emergency Room with complaints of persistent abdominal pain starting DAIRY HELPER. She rates her discomfort as an 8/10 in severity. She woke up from an EGD and had the pain. She had her lower esophagus stretched. She has had the procedure 15 times in the past and has never had complications. She reports nausea which resolved after Zofran. Source of History: patient Onset: DAIRY HELPER Position: abdomen Symptom Intensity: 8/10 Timing: other (persistent) Associated Symptoms: + nausea Review of Systems See HPI for pertinent positives & negatives. A total of 10 systems reviewed and were otherwise negative. Past Medical & Surgical Medical Problems: (1) Alcohol Abuse-Unspec (2) Anemia, iron deficiency (3) Depressive Disorder Nec (4) Diab Marita Wo Comp Type Ii,Or Nos/Uncontrolled (5) Hyperlipidemia Nec/Nos (6) Hypertension Nos (7) Hypothyroidism (8) Tobacco Use Disorder Surgical Problems: (1) Status post appendectomy (2) Status post cholecystectomy (3) Status post gastric bypass for obesity (4) Status post hysterectomy Family History Diabetes mellitus FH: heart disease Social History Smoking Status: Unknown if Ever Smoked Alcohol Use: none Drug Use: none Marital Status: Occupation Status: employed Current/Historical Medications Scheduled Folic Acid (Folvite), 1 MG PO DAILY Misoprostol (Cytotec), 100 MCG PO QID Nortriptyline (Pamelor), 25 MG PO HS Omeprazole (Prilosec), 20 MG PO DAILY Venlafaxine Hcl (Venlafaxine Extended Rel), 75 MG PO DAILY Scheduled PRN Ondansetron Odt (Zofran Odt), 8 MG SL Q6H PRN for Nausea Trazodone Hcl (Trazodone), 1-2 TAB PO HS PRN for Sleep Allergies Coded Allergies: Sulfa Antibiotics (Verified Allergy, Severe, FACE/THROAT SWELL UP, 02/19/17 ) Physical Exam Vital Signs Date Time Temp Pulse Resp B/P Pulse Ox O2 Delivery O2 Flow Rate FiO2 02/19/17 15:13 66 16 128/68 99 Room Air 02/19/17 14:05 64 20 126/70 94 Room Air 02/19/17 13:04 36.5 71 20 120/70 98 Room Air Physical Exam CONSTITUTIONAL/VITAL SIGNS: Reviewed / noted above. GENERAL: Non-toxic in appearance. INTEGUMENTARY: Warm, dry, and [place]. HEAD: Normocephalic. EYES: without scleral icterus or trauma. ENT/OROPHARYNX: clear and moist. LYMPHADENOPATHY/NECK: Is supple without lymphadenopathy or meningismus. RESPIRATORY: Lungs clear and equal. CARDIOVASCULAR: Regular rate and rhythm. GI/ABDOMEN: Soft with diffuse abdominal tenderness more prominent in the epigastric area.. No organomegaly or pulsatile mass. No rebound or guarding. Normal bowel sounds. EXTREMITIES: Warm and well perfused. BACK: No CVA tenderness. NEUROLOGICAL: Intact without focal deficits. PSYCHIATRIC: normal affect. MUSCULOSKELETAL: Normally developed with good muscle tone. Medical Decision & Procedures ER Provider Diagnostic Interpretation: X ray results and stated below per my interpretation and radiology interpretation. Radiology results as stated below per my review and radiologist interpretation: CHEST ONE VIEW PORTABLE HISTORY: Generalized abdominal pain. COMPARISON: Chest 01/24/2017. FINDINGS: A few linear densities at the left lower lung zone favor subsegmental atelectasis. The lungs are otherwise clear. The heart is normal in size. No pleural effusions. No pneumothorax. IMPRESSION: Left basilar subsegmental atelectasis. Otherwise, no acute process within the chest. Electronically signed by: Matty Matias M.D. 02/19/2017 1:57 PM Dictated Date/Time: 02/19/2017 1:[address] SCAN OF THE ABDOMEN AND PELVIS WITHOUT IV CONTRAST CLINICAL HISTORY: Generalized abdominal pain status post endoscopy. COMPARISON STUDY: Abdominal CT dated 06/18/2015. TECHNIQUE: CT scan of the abdomen and pelvis is performed from the lung bases to the proximal femora. Images are reviewed in the axial, sagittal, and coronal planes. IV contrast was not administered for this examination as per the front clinician. Note that the examination was performed in significantly suboptimal fashion without IV contrast. Automated dose control exposure was utilized. CT DOSE: 300.39 mGy.cm FINDINGS: Lung bases: The heart is normal in size and without pericardial effusion. There is no airspace consolidation typical for pneumonia or pleural effusion. A 9 mm pulmonary nodule at the left lung base seen on image #51. A 3 mm pleural-based nodule the right lung base is again seen on image #45. These are unchanged from 2015. Dependent atelectasis is observed. Liver: The unenhanced liver is normal in size, contour, and attenuation. There is mild central intrahepatic biliary ductal dilatation. Gallbladder: Not identified and presumed surgically absent. Spleen: Normal in size and attenuation. Pancreas: Atrophic and grossly unremarkable. Adrenal glands: There is mild nodular thickening of the adrenal glands. Kidneys: The unenhanced kidneys are atrophic and without hydronephrosis. There are bilateral extrarenal pelvises. There are no renal calculi identified. There is no evidence of contour deforming renal mass lesion. Abdominal vasculature: The abdominal aorta is normal in course and caliber noting advanced atherosclerotic calcification. Stomach and bowel: There are postoperative changes consistent with a Reno-en-Y gastric bypass surgery. No bowel obstruction is seen. There are scattered colonic diverticula without CT evidence of acute diverticulitis. Mild colonic fecal retention is observed. Enteric contrast is noted in the colon. The appendix is not identified and reported surgically absent. Peritoneum: There is no intraperitoneal free air or abdominal ascites. Lymphadenopathy: None. Pelvic viscera: The bladder is normal as visualized. The uterus is surgically absent. No adnexal lesion is seen. 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 This is unchanged from previous. Skeletal structures: The skeletal structures are osteopenic. There is mild/moderate lumbosacral spondylosis. No lytic or blastic lesions are seen. IMPRESSION: 1. Suboptimal examination without IV contrast. 2. There are no acute infectious or inflammatory findings in the abdomen or pelvis. 3. There are postoperative changes consistent with a Reno-en-Y gastric bypass procedure. No bowel obstruction is seen. 4. An 8 mm pulmonary nodule at the left lung base is unchanged from 2015. This is of low suspicion given long-term stability. 5. There are scattered colonic diverticula without CT evidence of acute diverticulitis. 6. Additional changes as above. Electronically signed by: Yury Brown M.D. 02/19/2017 2:17 PM Dictated Date/Time: 02/19/2017 2:04 PM Laboratory Results 02/19/17 13:35 Red Blood Count 3.86, Mean Corpuscular Volume 89.1, Mean Corpuscular Hemoglobin 29.5, Mean Corpuscular Hemoglobin Concent 33.1, Mean Platelet Volume 8.8, Neutrophils (%) (Auto) 61.0, Lymphocytes (%) (Auto) 33.0, Monocytes (%) (Auto) 3.9, Eosinophils (%) (Auto) 1.4, Basophils (%) (Auto) 0.5, Neutrophils # (Auto) 3.45, Lymphocytes # (Auto) 1.87, Monocytes # (Auto) 0.22, Eosinophils # (Auto) 0.08, Basophils # (Auto) 0.03 02/19/17 13:35 Test 02/19/17 13:35 White Blood Count 5.66 K/uL (4.8-10.8) Red Blood Count 3.86 M/uL (4.2-5.4) Hemoglobin 11.4 g/dL (12.0-16.0) Hematocrit 34.4 % (37-47) Mean Corpuscular Volume 89.1 fL (80-100) Mean Corpuscular Hemoglobin 29.5 pg (25-34) Mean Corpuscular Hemoglobin Concent 33.1 g/dl (32-36) Platelet Count 285 K/uL (130-400) Mean Platelet Volume 8.8 fL (7.4-10.4) Neutrophils (%) (Auto) 61.0 % Lymphocytes (%) (Auto) 33.0 % Monocytes (%) (Auto) 3.9 % Eosinophils (%) (Auto) 1.4 % Basophils (%) (Auto) 0.5 % Neutrophils # (Auto) 3.45 K/uL (1.4-6.5) Lymphocytes # (Auto) 1.87 K/uL (1.2-3.4) Monocytes # (Auto) 0.22 K/uL (0.11-0.59) Eosinophils # (Auto) 0.08 K/uL (0-0.5) Basophils # (Auto) 0.03 K/uL (0-0.2) RDW Standard Deviation 44.1 fL (36.4-46.3) RDW Coefficient of Variation 13.4 % (11.5-14.5) Immature Granulocyte % (Auto) 0.2 % Immature Granulocyte # (Auto) 0.01 K/uL (0.00-0.02) Anion Gap 6.0 mmol/L (3-11) Est Creatinine Clear Calc Drug Dose 68.1 ml/min Estimated GFR () 94.3 Estimated GFR (Non- 81.4 BUN/Creatinine Ratio 9.1 (10-20) Calcium Level 8.3 mg/dl (8.5-10.1) Total Bilirubin 0.4 mg/dl (0.2-1) Direct Bilirubin < 0.1 mg/dl (0-0.2) Aspartate Amino Transf (AST/SGOT) 8 U/L (15-37) Alanine Aminotransferase (ALT/SGPT) 14 U/L (12-78) Alkaline Phosphatase 71 U/L (45-117) Total Protein 6.4 gm/dl (6.4-8.2) Albumin 3.0 gm/dl (3.4-5.0) Lipase 141 U/L (73-393) Laboratory results as stated above per my review. Medications Administered Medications (Trade) Dose Ordered Sig/Aaron Route Start Time Stop Time Status Last Admin Dose Admin Sodium Chloride (Nss 1000ml) 1,000 ml @ 999 mls/hr Q1H1M STAT IV 02/19/17 13:20 02/19/17 14:20 DC 02/19/17 13:48 999 MLS/HR Ondansetron HCl (Zofran Inj) 4 mg NOW STAT IV 02/19/17 13:20 02/19/17 13:23 DC 02/19/17 13:29 4 MG Morphine Sulfate (MoRPHine SULFATE INJ) 4 mg Q1H PRN IV 02/19/17 13:30 03/05/17 13:29 02/19/17 15:11 4 MG ED Course 1312: Previous medical records were reviewed. The patient was evaluated in room B4B. A complete history and physical examination was performed. 1320: Zofran Inj 4 mg IV, NSS 1000 ml @ 999 mls/hr IV, Morphine Sulfate 4 mg IV. 1549: On reevaluation, the patient is resting comfortably. I discussed the results and findings with the patient. She verbalized agreement of the treatment plan. She was discharged home. Medical Decision Differential considered: pancreatitis, hepatitis, or acute cholecystitis, AAA, UTI, pyelonephritis, kidney stones, appendicitis, diverticulitis, shingles, bowel obstruction mesenteric ischemia, intussusception,hernia. This is a 61-year-old female who presents to the ED with a chief complaint of epigastric abdominal pain. The patient had her lower esophagus stretched just prior to arrival here. She was complaining of epigastric discomfort following the procedure. She was sent over by Dr. Christian. The patient has normal vital signs. Her physical exam revealed some tenderness the epigastric area predominantly. A CT scan of the abdomen and pelvis did not show acute process. A chest x-ray was negative for acute disease. CBC and complete metabolic panel are unremarkable. The patient was told the results. She was treated with IV morphine, she was given IV fluids and IV Zofran. She is felt to be stable for discharge. Impression Primary Impression: Epigastric abdominal pain Scribe Attestation The scribe's documentation has been prepared under my direction and personally reviewed by me in its entirety. I confirm that the note above accurately reflects all work, treatment, procedures, and medical decision making performed by me. Departure Information Dispostion Home / Self-Care Referrals Nolan Royal M.D.([facility]) (PCP) Patient Instructions My [facility] Additional Instructions Follow-up with your doctor for further care and evaluation in 1-2 days. Return to the emergency department for worsening or new symptoms or any concerns. You have been examined and treated today on an emergency basis only. This is not a substitute for, or an effort to provide, complete comprehensive medical care. It is impossible to recognize and treat all injuries or illnesses in a single emergency department visit. It is therefore important that you follow up closely with your doctor. Call as soon as possible for an appointment.
[2017-02-19 16:05] VITALS: BP 136/79; PULSE 80; O2SAT 98
[2017-02-19 16:07] LABS: URINE APPEARANCE CLEAR (CLEAR); URINE BILIRUBIN NEG (NEG); URINE COLOR YELLOW; URINE NITRITE NEG (NEG); URINE PH 8.5 (4.5-7.5); URINE SPECIFIC GRAVITY 1.006 (1.000-1.030); UROBILINOGEN NEG (NEG); ZZUR CULT IF INDIC CLEAN CATCH NO
[2017-02-19 16:16] LABS: MANUAL MICROSCOPIC REQUIRED? NO; REVIEW REQ? NO
== END 2017-02-19 16:05 | disposition home or self-care (01) ==
LOC: EDBD 12:58 → C.EDB 12:59
DX: R10.13 Epigastric pain (principal); E11.9 Type 2 diabetes mellitus without complications; E78.5 Hyperlipidemia, unspecified; I10 Essential (primary) hypertension; E03.9 Hypothyroidism, unspecified; F32.9 Major depressive disorder, single episode, unspecified; F17.200 Nicotine dependence, unspecified, uncomplicated; Z98.84 Bariatric surgery status; Z98.890 Other specified postprocedural states; Z90.710 Acquired absence of both cervix and uterus; Z90.49 Acquired absence of other specified parts of digestive tract; Z79.899 Other long term (current) drug therapy; Z88.2 Allergy status to sulfonamides; Z83.3 Family history of diabetes mellitus; Z82.49 Family history of ischemic heart disease and other diseases of the circulatory system

== ENCOUNTER 2018-02-26 08:51 | Observation (INO) | payer OTHER ==
[~2018-02-26] VITALS: Ht 162.6 cm; Wt 76.4 kg
[~2018-02-26 08:51] MED LIST changes: -CYCL10TA6 PO; -FOLI1TAB7 PO; +FOLI1TAB8 PO; +MISO1TAB10 PO; -OMEP20CA9 PO
[2018-02-26] MEDS ORDERED: SODIUM CHLORIDE 0.9% 500ML 500 ML IV STA (09:27)
[2018-02-26] MEDS ORDERED: ONDANSETRON INJ 2 MG/ML 2 ML VIAL IV STA (09:27)
[2018-02-26] MEDS ORDERED: SODIUM CHLORIDE 0.9% 1000ML 1,000 ML IV STA (09:27)
[2018-02-26 09:39] LABS: BASO % 0.4 %; BASO ABS # 0.04 K/uL (0-0.2); EOS % 1.4 %; EOS ABS # 0.13 K/uL (0-0.5); HEMATOCRIT 39.7 % (37-47); HEMOGLOBIN 13.1 g/dL (12.0-16.0); IG# 0.03 K/uL (0.00-0.02); LYMPH % 17.6 %; LYMPH ABS # 1.63 K/uL (1.2-3.4); MEAN CELL VOLUME 85.6 fL (80-100); MEAN CORPUSCULAR HEMOGLOBIN 28.2 pg (25-34); MEAN PLATELET VOLUME 8.7 fL (7.4-10.4); MONO % 6.2 %; MONO ABS # 0.57 K/uL (0.11-0.59); NEUT % 74.1 %; NEUT ABS # 6.85 K/uL (1.4-6.5); PLATELET COUNT 315 K/uL (130-400); RED CELL DISTRIBUTION WIDTH SD 46.8 fL (36.4-46.3); WHITE BLOOD COUNT 9.25 K/uL (4.8-10.8)
[2018-02-26 09:46] LABS: ALBUMIN 3.7 gm/dl (3.4-5.0); CALCIUM 8.8 mg/dl (8.5-10.1); CREATININE 1.32 mg/dl (0.60-1.20); POTASSIUM 3.2 mmol/L (3.5-5.1)
[2018-02-26 09:49] LABS: ISTAT CREATININE 1.1 mg/dl (0.6-1.3); ISTAT IONIZED CALCIUM 1.06 mmol/l (1.12-1.32); ISTAT POTASSIUM 3.1 mEq/L (3.3-5.0)
[2018-02-26 09:49] LABS: TOTAL PROTEIN 7.8 gm/dl (6.4-8.2)
[2018-02-26] MEDS ORDERED: DULO60CA44 PO (10:08)
[2018-02-26] MEDS ORDERED: MoRPHine SULFATE 4 MG/ML 1 ML CARP\\VIAL IV STA (10:18)
--- NOTE | 2018-02-26 10:20 | DIAGNOSTIC IMAGING REPORT ---
ABDOMEN 2VIEW W/PA CHEST RTN CLINICAL HISTORY: abd pain, vomiting, esoph stricture pain COMPARISON STUDY: No previous studies for comparison. FINDINGS: Lungs are considered clear. Heart top limits normal terms of size. Small fixed lateral hernia. Diaphragms are smooth. IMPRESSION: No acute process. The above report was generated using voice recognition software. It may contain grammatical, syntax or spelling errors. Electronically signed by: Konrad Issa M.D. 02/26/2018 10:19 AM Dictated Date/Time: 02/26/2018 10:19 AM
[2018-02-26] MEDS ORDERED: SUCRALFATE 1 GM/10 ML UDC PO STA (10:36)
[2018-02-26] MEDS ORDERED: POTASSIUM CHLR 10 MEQ / WTR 100 ML IV STA (11:37)
[2018-02-26 12:59] VITALS: O2SAT 91; Ht 162.6 cm; Wt 76.4 kg
--- NOTE | 2018-02-26 13:03 | EMERGENCY ROOM VISIT NOTE ---
History Report prepared by Loy: Shivam Drake Under the Supervision of: Dr. Misti Childers M.D. First contact with patient: 09:23 Chief Complaint: ABDOMINAL PAIN Stated Complaint: UPPER ABD PAIN,VOMITING Nursing Triage Summary: pt reports dr ramirez has been stretching stomach for months. told she has ulcer .done again in january. sunday pain started in abd , has not been able to meds down since sunday am. yesterday able to eat toast in am stayed down then at lunch ate toast came back up. this am took sips and vomited . mid upper abd pain. vomiting nauseated. no diarrhea History of Present Illness The patient is a 62 year old female who presents to the Emergency Room with complaints of worsening abdominal pain that began 3 days ago. The patient states that she has been having her esophagus stretched by Dr. Christian for the past several months. She had this procedure done again in January, around a month ago. She has been told that her abdominal pain is due to an ulcer in her stomach. She describes her pain as "unbearable" and "horrible." The patient has not been able to keep down any food/drink/medication in the past two days. She did eat a piece of toast yesterday and vomited it right back up. She does have a history of small bowel obstruction. Source of History: patient Onset: 3 days ago Position: abdomen Symptom Intensity: unbearable Timing: worsening Associated Symptoms: + vomiting Review of Systems See HPI for pertinent positives & negatives. A total of 10 systems reviewed and were otherwise negative. Past Medical & Surgical Medical Problems: (1) Alcohol Abuse-Unspec (2) Altered mental status (3) Anemia, iron deficiency (4) Depressive Disorder Nec (5) Diab Marita Wo Comp Type Ii,Or Nos/Uncontrolled (6) Drug overdose (7) Hyperlipidemia Nec/Nos (8) Hypertension Nos (9) Hypothyroidism (10) Small bowel obstruction (11) Tobacco Use Disorder Surgical Problems: (1) Status post appendectomy (2) Status post cholecystectomy (3) Status post gastric bypass for obesity (4) Status post hysterectomy Family History Diabetes mellitus FH: heart disease Social History Smoking Status: Former Smoker Alcohol Use: none Drug Use: none Marital Status: Occupation Status: employed Current/Historical Medications Scheduled Cyanocobalamin (Vitamin B-12), 1 TAB PO DAILY Duloxetine HCl (Cymbalta), 1 CAP PO BID Folic Acid (Folvite), 1 MG PO DAILY Gabapentin (Gabapentin), 1 CAP PO TID Misoprostol (Cytotec), 200 MCG PO QID Nortriptyline (Pamelor), 25 MG PO HS Omeprazole (Prilosec), 20 MG PO BID Sucralfate (Sucralfate), 1 GM PO QID Allergies Coded Allergies: Sulfa Antibiotics (Verified Allergy, Severe, FACE/THROAT SWELL UP, 02/26/18 ) Physical Exam Vital Signs Date Time Temp Pulse Resp B/P (MAP) Pulse Ox O2 Delivery O2 Flow Rate FiO2 02/26/18 12:30 71 117/59 91 Room Air 02/26/18 12:00 83 20 130/75 99 Room Air 02/26/18 11:15 83 22 98 Room Air 02/26/18 10:46 72 18 141/74 100 Room Air 02/26/18 10:24 69 02/26/18 09:44 69 16 147/62 100 Room Air 02/26/18 08:56 36.5 90 18 104/73 99 Room Air Physical Exam Vital signs reviewed General: uncomfortable appearing. in no significant distress. HEENT: No scleral icterus, PERRLA, neck supple. Atraumatic. Cardiovascular: Regular rate and rhythm, no extra sounds. Pulmonary: Clear to auscultation bilaterally, normal work of breathing. Abdomen: Soft, TTP in epigastric region. positive guarding, nondistended, positive bowel sounds. Musculoskeletal: Atraumatic, no peripheral edema. Neurologic: Patient awake alert and oriented x 3, full strength in all 4 extremities. Cranial nerves 2 through 12 grossly intact. Skin: Warm, dry, no rash Medical Decision & Procedures ER Provider Diagnostic Interpretation: Radiology results as stated below per my review and radiologist interpretation: ABDOMEN 2VIEW W/PA CHEST RTN CLINICAL HISTORY: abd pain, vomiting, esoph stricture pain COMPARISON STUDY: No previous studies for comparison. FINDINGS: Lungs are considered clear. Heart top limits normal terms of size. Small fixed lateral hernia. Diaphragms are smooth. IMPRESSION: No acute process. The above report was generated using voice recognition software. It may contain grammatical, syntax or spelling errors. Electronically signed by: Konrad Issa M.D. 02/26/2018 10:19 AM Dictated Date/Time: 02/26/2018 10:19 AM Laboratory Results Test 02/26/18 09:00 02/26/18 09:05 02/26/18 09:10 02/26/18 09:36 Immature Granulocyte % (Auto) 0.3 % White Blood Count 9.25 K/uL (4.8-10.8) Red Blood Count 4.64 M/uL (4.2-5.4) Hemoglobin 13.1 g/dL (12.0-16.0) Hematocrit 39.7 % (37-47) Mean Corpuscular Volume 85.6 fL (80-100) Mean Corpuscular Hemoglobin 28.2 pg (25-34) Mean Corpuscular Hemoglobin Concent 33.0 g/dl (32-36) Platelet Count 315 K/uL (130-400) Mean Platelet Volume 8.7 fL (7.4-10.4) Neutrophils (%) (Auto) 74.1 % Lymphocytes (%) (Auto) 17.6 % Monocytes (%) (Auto) 6.2 % Eosinophils (%) (Auto) 1.4 % Basophils (%) (Auto) 0.4 % Neutrophils # (Auto) 6.85 K/uL (1.4-6.5) Lymphocytes # (Auto) 1.63 K/uL (1.2-3.4) Monocytes # (Auto) 0.57 K/uL (0.11-0.59) Eosinophils # (Auto) 0.13 K/uL (0-0.5) Basophils # (Auto) 0.04 K/uL (0-0.2) Immature Granulocyte # (Auto) 0.03 K/uL (0.00-0.02) Total Bilirubin 0.6 mg/dl (0.2-1) Direct Bilirubin 0.2 mg/dl (0-0.2) Aspartate Amino Transf (AST/SGOT) 10 U/L (15-37) Alanine Aminotransferase (ALT/SGPT) 16 U/L (12-78) Alkaline Phosphatase 132 U/L (45-117) Total Protein 7.8 gm/dl (6.4-8.2) Albumin 3.7 gm/dl (3.4-5.0) Lipase 159 U/L (73-393) Thyroid Stimulating Hormone (TSH) 5.350 uIu/ml (0.300-4.500) Urine Color YELLOW Urine Appearance CLEAR (CLEAR) Urine pH 6.5 (4.5-7.5) Urine Specific [place] 1.032 (1.000-1.030) Urine Protein NEG (NEG) Urine Glucose (UA) 3+ (NEG) Urine Ketones NEG (NEG) Urine Occult Blood NEG (NEG) Urine Nitrite NEG (NEG) Urine Bilirubin NEG (NEG) Urine Urobilinogen NEG (NEG) Urine Leukocyte Esterase NEG (NEG) Prothrombin Time 10.0 SECONDS (9.0-12.0) Prothromb Time International Ratio 1.0 (0.9-1.1) Activated Partial Thromboplast Time 26.8 SECONDS (21.0-31.0) Partial Thromboplastin Ratio 1.0 Hepatitis C Antibody Screen NEG (NEG) Bedside Hemoglobin 13.6 g/dl (12.0-16.0) Bedside Hematocrit 40 % (37-47) Bedside Sodium 138 mEq/L (135-144) Bedside Potassium 3.1 mEq/L (3.3-5.0) Bedside Chloride 100 mEq/L (101-112) Bedside Total CO2 27 mEq/l (24-31) Bedside Blood Urea Nitrogen 12 mg/dl (7-18) Bedside Creatinine 1.1 mg/dl (0.6-1.3) Bedside Glucose (other) 139 mg/dl (70-99) Bedside Ionized Calcium (Yareli) 1.06 mmol/l (1.12-1.32) Laboratory results per my review. Medications Administered Medications (Trade) Dose Ordered Sig/Aaron Route Start Time Stop Time Status Last Admin Dose Admin Sodium Chloride 500 ml @ 999 mls/hr Q31M STAT IV 02/26/18 09:27 02/26/18 09:57 DC 02/26/18 09:27 999 MLS/HR Sodium Chloride 1,000 ml @ 150 mls/hr Q6H40M STAT IV 02/26/18 09:27 02/26/18 15:10 DC 02/26/18 09:42 150 MLS/HR Ondansetron HCl (Zofran Inj) 4 mg NOW STAT IV 02/26/18 09:27 02/26/18 09:30 DC 02/26/18 09:41 4 MG Morphine Sulfate (MoRPHine SULFATE INJ) 4 mg NOW STAT IV 02/26/18 10:18 02/26/18 10:19 DC 02/26/18 10:44 4 MG Sucralfate (Carafate Susp) 1 gm NOW STAT PO 02/26/18 10:36 02/26/18 10:37 DC 02/26/18 11:12 1 GM Potassium Chloride 100 ml @ 100 mls/hr NOW STAT IV 02/26/18 11:37 02/26/18 12:36 DC 02/26/18 12:07 100 MLS/HR ED Course 925: Past medical records reviewed. The patient was evaluated in room B11B. A complete history and physical examination was performed. 0927: Ordered Zofran 4 mg IV, Sodium Chloride 1000 mL @ 150 mL/hr IV, Sodium Chloride 500 mL @ 999 mL/hr IV. 1018: Ordered Morphine Sulfate 4 mg IV. 1036: Ordered Sucralfate 1 gm PO. 1137: Ordered Potassium Chloride 100 mL @ 100 mL/hr IV. 1211: I discussed the case with Dr. Javier Lindsey. She will evaluate the patient for further treatment. Medical Decision Differential diagnosis: Etiologies such as appendicitis, diverticulitis, PUD, biliary pathology, UTI, pancreatitis, obstruction, mesenteric ischemia, aortic pathology, infections, inflammatory bowel disease, renal colic, as well as others were entertained. This pt was evaluated and appeared to be in no distress. IV access was obtained and lab work was drawn. Pt was given IV zofran 4 mg, IV morphine, IVF were initially. Pt was given po carafate. GI was consulted and eels pt will likely need an admission for repeat scope and pain control. Potassium 20 MEq was given IV. Pt was reevaluated continued to be in pain. The hospitalist was consulted and agreed to evaluate the pt for admission. She is aware of the plan and agrees. Consults Time Called: 1207 Consulting Physician: Dr. Javier Lindsey Returned Call: 1211 I discussed the case with Dr. Javier Lindsey. She will evaluate the patient for further treatment. Impression Primary Impression: Intractable abdominal pain Additional Impressions: Peptic ulcer Hypokalemia Scribe Attestation The scribe's documentation has been prepared under my direction and personally reviewed by me in its entirety. I confirm that the note above accurately reflects all work, treatment, procedures, and medical decision making performed by me. Departure Information Dispostion Being Evaluated By Hospitalist Prescriptions Sucralfate (Sucralfate) 1 Gm/10 Ml Susp 1 GM PO QID for 30 Days, #1200 ML Prov: Nisa Reyes, 02/28/18 Misoprostol (CYTOTEC) 200 Mcg Tab 200 MCG PO QID for 30 Days, #120 TAB Prov: Nisa Reyes, 02/28/18 Referrals Nolan Royal M.D.(GARRETT) (PCP) Patient Instructions [facility] Problem Qualifiers
[2018-02-26 13:05] LABS: PTT PATIENT 26.8 SECONDS (21.0-31.0)
[2018-02-26] MEDS ORDERED: CYM/30 PO (13:08)
[2018-02-26] MEDS ORDERED: VTMB12100 PO (13:09)
[2018-02-26] MEDS ORDERED: NRN300 PO (13:09)
[2018-02-26] MEDS ORDERED: ALUMINUM/MAGNESIUM/SIMETH (MAALOX MAX) 30 ML UDC PO PRN (13:15)
[2018-02-26] MEDS ORDERED: MAGNESIUM HYDROXIDE SUSP 30 ML UDC PO PRN (13:15)
[2018-02-26] MEDS ORDERED: DEXTROSE 50% 50 ML SYR IV PRN (13:30)
[2018-02-26] MEDS ORDERED: GLUCOSE 40% GEL 15 GM TUBE PO PRN (13:30)
[2018-02-26] MEDS ORDERED: GLUCAGON FOR INJ 1 MG VIAL SQ PRN (13:30)
[2018-02-26] MEDS ORDERED: GLUCOSE 10 TABS/TUBE PO PRN (13:30)
[2018-02-26] MEDS ORDERED: OPTIRAY 320 IV PRN (13:30)
--- NOTE | 2018-02-26 13:31 | Gastrointestinal Consultation ---
Gastrointestinal Consultation Date of Consultation: Feb 26, 2018 Attending Physician: Misti Childers Consulting Physician: Shiva Quiles Reason for Consultation: Abd pain History of Present Illness Patient is a 62 year old female w PMHx of MDD, ETOH abuse (abstinent x 5 yrs), DM II, gastroparesis, hypothyroidism, s/p gastric bypass w revision between 1997 -1999 who presented to ED w c/o abd pain, n/v. She reports that since Sunday, as soon as she eats, she would experience epigastric area abd pain, then n/v. Denies any hematemesis, coffee ground emesis, or changes in bowel habits. Also denies any fever, chills, CP, SOB, sick contact. 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 Christian. She was also on Cytotec 100mcg QID and Prilosec 20mg BID which she reports she's been taking consistently. She admits to drinking Red Bull on daily basis and smoking tobacco "here and there" last use 3 weeks ago when camping. Denies ETOH x 5 yrs. Denies any NSAIDs Labs including CBC, CMP relatively normal except low K 3.1. Chest/abd xray normal appearing. Past Medical/Surgical History Medical Problems: (1) Constipation by delayed colonic transit Status: Acute (2) Epigastric abdominal pain Status: Acute (3) Hypokalemia Status: Acute (4) Intractable abdominal pain Status: Acute (5) Migraine Status: Acute (6) Peptic ulcer Status: Acute (7) Vomiting Status: Acute Past Medical History: See above. Past Surgical History: As above, appendectomy, total hysterectomy, cholecystectomy Family History Diabetes mellitus FH: heart disease Social History Smoking Status: Current Some Day Smoker Alcohol Use: none Drug Use: none Marital Status: Occupation Status: employed Allergies Coded Allergies: Sulfa Antibiotics (Verified Allergy, Severe, FACE/THROAT SWELL UP, 02/26/18 ) Current Medications Home Meds and Scripts Medications Dose Route/Sig Max Daily Dose Days Date Category Vitamin B-12 (Cyanocobalamin) 100 Mcg Tab 1 Tab PO DAILY 02/26/18 Reported Gabapentin 300 Mg Cap 1 Cap PO TID 02/26/18 Reported Cymbalta (Duloxetine HCl) 30 Mg Cap 1 Cap PO BID 30 02/26/18 Reported Cytotec (Misoprostol) 100 Mcg Tab 100 Mcg PO QID 02/19/17 Reported Prilosec (Omeprazole) 20 Mg Capcr 20 Mg PO BID 01/24/17 Reported Pamelor (Nortriptyline HCl) 25 Mg Cap 25 Mg PO HS 01/24/17 Reported Folvite (Folic Acid) 1 Mg Tab 1 Mg PO DAILY 01/24/17 Reported Review of Systems Constitutional: No fever, No chills Respiratory: No cough, No shortness of breath Cardiac: No chest pain Abdomen: + pain, + nausea, + vomiting Skin: No rash, No itch Physical Exam Date Time Temp Pulse Resp B/P (MAP) Pulse Ox O2 Delivery O2 Flow Rate FiO2 02/26/18 12:59 91 Room Air 02/26/18 12:30 71 117/59 91 Room Air 02/26/18 12:00 83 20 130/75 99 Room Air 02/26/18 11:15 83 22 98 Room Air 02/26/18 10:46 72 18 141/74 100 Room Air 02/26/18 10:24 69 02/26/18 09:44 69 16 147/62 100 Room Air 02/26/18 08:56 36.5 90 18 104/73 99 Room Air General Appearance: WD/WN, no apparent distress Eyes: normal inspection, PERRL, EOMI Neck: supple, no JVD, trachea midline Respiratory/Chest: normal breath sounds, no respiratory distress, no accessory muscle use Cardiovascular: regular rate, rhythm, no gallop, no murmur Abdomen: normal bowel sounds, soft, + tenderness (epigastric, RUQ, LLQ ) Extremities: normal inspection, no pedal edema, no calf tenderness Neurologic/Psych: alert, normal mood/affect, oriented x 3 Skin: normal color, no jaundice, no rash Laboratory Results Last 24 Hours Test 02/26/18 09:00 02/26/18 09:05 02/26/18 09:10 02/26/18 09:15 White Blood Count 9.25 K/uL Red Blood Count 4.64 M/uL Hemoglobin 13.1 g/dL Hematocrit 39.7 % Mean Corpuscular Volume 85.6 fL Mean Corpuscular Hemoglobin 28.2 pg Mean Corpuscular Hemoglobin Concent 33.0 g/dl Platelet Count 315 K/uL Mean Platelet Volume 8.7 fL Neutrophils (%) (Auto) 74.1 % Lymphocytes (%) (Auto) 17.6 % Monocytes (%) (Auto) 6.2 % Eosinophils (%) (Auto) 1.4 % Basophils (%) (Auto) 0.4 % Neutrophils # (Auto) 6.85 K/uL Lymphocytes # (Auto) 1.63 K/uL Monocytes # (Auto) 0.57 K/uL Eosinophils # (Auto) 0.13 K/uL Basophils # (Auto) 0.04 K/uL RDW Standard Deviation 46.8 fL RDW Coefficient of Variation 15.0 % Immature Granulocyte % (Auto) 0.3 % Immature Granulocyte # (Auto) 0.03 K/uL Sodium Level 136 mmol/L Potassium Level 3.2 mmol/L Chloride Level 102 mmol/L Carbon Dioxide Level 28 mmol/L Anion Gap 6.0 mmol/L Blood Urea Nitrogen 12 mg/dl Creatinine 1.32 mg/dl Est Creatinine Clear Calc Drug Dose 44.8 ml/min Estimated GFR () 50.3 Estimated GFR (Non- 43.4 BUN/Creatinine Ratio 9.3 Random Glucose 137 mg/dl Calcium Level 8.8 mg/dl Total Bilirubin 0.6 mg/dl Direct Bilirubin 0.2 mg/dl Aspartate Amino Transf (AST/SGOT) 10 U/L Alanine Aminotransferase (ALT/SGPT) 16 U/L Alkaline Phosphatase 132 U/L Total Protein 7.8 gm/dl Albumin 3.7 gm/dl Lipase 159 U/L Urine Color YELLOW Urine Appearance CLEAR Urine pH 6.5 Urine Specific [place] 1.032 Urine Protein NEG Urine Glucose (UA) 3+ Urine Ketones NEG Urine Occult Blood NEG Urine Nitrite NEG Urine Bilirubin NEG Urine Urobilinogen NEG Urine Leukocyte Esterase NEG Prothrombin Time 10.0 SECONDS Prothromb Time International Ratio 1.0 Activated Partial Thromboplast Time 26.8 SECONDS Partial Thromboplastin Ratio 1.0 Bedside Glucose 146 mg/dl Test 02/26/18 09:36 02/26/18 13:17 Bedside Hemoglobin 13.6 g/dl Bedside Hematocrit 40 % Bedside Sodium 138 mEq/L Bedside Potassium 3.1 mEq/L Bedside Chloride 100 mEq/L Bedside Total CO2 27 mEq/l Anion Gap 15.0 mmol/L Bedside Blood Urea Nitrogen 12 mg/dl Bedside Creatinine 1.1 mg/dl Bedside Glucose (other) 139 mg/dl Bedside Ionized Calcium (Yareli) 1.06 mmol/l Impression Patient is a 62 year old female w hx of gastric bypass, healing ulcer and 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 Has associated N/V. No bowel habit changes. Admits to be compliant w her PPI and Misoprostol. However admits to tobacco smoking occasionally and drinking Red Bull once daily. Denies NSAIDs and ETOH. Plan - Obtain CT abd/pelvis w contrast - Replete K - CL diet - Protonix 40mg IV BID, Misoprostol 100mcg QID. - Last EGD w stenosis dilation on 01/18/18 - Advised to quite tobacco and caffeinated beverages; remain abstinent of ETOH Attg add: I interviewed and examined pt, reviewed chart and labs. Pt with persistent abd miguel, known anastamotic ulcer and stenosis. Will plan repeat EGD for possible dilation.
--- NOTE | 2018-02-26 13:54 | History and Physical ---
History & Physical Date & Time of Service: Feb 26, 2018 at 13:10 Chief Complaint: Upper Abd Pain,Vomiting Primary Care Physician: Nolan Royal M.D.(GARRETT) History of Present Illness Source: patient, clinic records, hospital records Pt is 62 y/o F with PMH peptic ulcer, esophageal stricture, GERD, gastric bypass , depression presented to ER with c/o upper abdominal pain x 3 days. States having nausea and vomiting 2-3 times a day over the past 3 days. Also with epigastric discomfort described as constant sharp pain aggravated by eating. States was able to keep down toast and pretzels some over past couple of days, however other times has emesis. Reports small soft BM's daily which is "normal" for her. Pt reports has been drinking one Redbull drink daily. She states hasn't been drinking that past couple of days secondary to abdominal discomfort. Reports has not been drinking ETOH or using NSAIDs, and denies tobacco use to this provider. Denies fever/chills, diaphoresis, [place]WIN, dizziness, syncope, vision changes, neck pain, CP, SOB, orthopnea, palpitations, cough, sore throat, choking, otalgia, rhinorrhea, hematemesis, hematochezia, melena, paresthesias, weakness, extremity edema, rashes, urinary symptoms, weight loss. Hx bowel obstruction in past. Hx cholecystectomy, hysterectomy, appendectomy. Hx EGD with Dr Christian on 01/18/18 - dilation of esophageal stricture. Pt reports hx ulcer in past. Past Medical/Surgical History Medical Problems: (1) Alcohol Abuse-Unspec Status: Chronic (2) Altered mental status Status: Resolved (3) Anemia, iron deficiency Status: Chronic (4) Depressive Disorder Nec Status: Chronic (5) Diab Marita Wo Comp Type Ii,Or Nos/Uncontrolled Status: Chronic (6) Drug overdose Status: Resolved (7) Hyperlipidemia Nec/Nos Status: Chronic (8) Hypertension Nos Status: Chronic (9) Hypothyroidism Status: Chronic (10) Small bowel obstruction Status: Resolved (11) Tobacco Use Disorder Status: Chronic Surgical Problems: (1) Status post appendectomy Status: Chronic (2) Status post cholecystectomy Status: Chronic (3) Status post gastric bypass for obesity Status: Chronic (4) Status post hysterectomy Status: Chronic Family History Diabetes mellitus FH: heart disease Social History Smoking Status: Former Smoker Smokeless Tobacco Use: No Alcohol Use: none (Pt state hasn't consumed for 5 years) Drug Use: none Marital Status: Housing status: lives alone Occupational Status: employed Immunizations History of Influenza Vaccine: Yes Influenza Vaccine Date: Aug 19, 2007 History of Tetanus Vaccine?: Yes History of Pneumococcal: Yes History of Hepatitis B Vaccine: Yes Allergies Coded Allergies: Sulfa Antibiotics (Verified Allergy, Severe, FACE/THROAT SWELL UP, 02/26/18 ) Home Medications Scheduled Cyanocobalamin (Vitamin B-12), 1 TAB PO DAILY Duloxetine HCl (Cymbalta), 1 CAP PO BID Folic Acid (Folvite), 1 MG PO DAILY Gabapentin (Gabapentin), 1 CAP PO TID Misoprostol (Cytotec), 200 MCG PO QID Nortriptyline (Pamelor), 25 MG PO HS Omeprazole (Prilosec), 20 MG PO BID Sucralfate (Sucralfate), 1 GM PO QID Review of Systems See HPI for pertinent positives & negatives. All other systems reviewed and were otherwise negative Physical Exam Vital Signs Date Time Temp Pulse Resp B/P (MAP) Pulse Ox O2 Delivery O2 Flow Rate FiO2 02/26/18 12:30 71 117/59 91 Room Air 02/26/18 12:00 83 20 130/75 99 Room Air 02/26/18 11:15 83 22 98 Room Air 02/26/18 10:46 72 18 141/74 100 Room Air 02/26/18 10:24 69 02/26/18 09:44 69 16 147/62 100 Room Air 02/26/18 08:56 36.5 90 18 104/73 99 Room Air General Appearance: WD/WN, no apparent distress Head: normocephalic, atraumatic Eyes: normal inspection, sclerae normal ENT: hearing grossly normal, pharynx normal, + pertinent finding (mildly dry mucous membranes) Neck: supple, no JVD, trachea midline Respiratory/Chest: lungs clear, normal breath sounds, no respiratory distress Cardiovascular: regular rate, rhythm, no murmur Abdomen/GI: normal bowel sounds, soft, + tenderness (RUQ, epigastric, LUQ without guarding or rebound. ), + pertinent finding (+healed surgical scars noted) Back: no CVA tenderness Extremities/Musculoskelatal: normal inspection, no pedal edema, normal range of motion, non-tender Neurologic/Psych: alert, normal mood/affect, + abnormal cerebellar tests Skin: normal color, warm/dry Diagnostics Laboratory Results Results Past 24 Hours Test 02/26/18 09:00 02/26/18 09:05 02/26/18 09:10 02/26/18 09:15 Range/Units White Blood Count 9.25 4.8-10.8 K/uL Red Blood Count 4.64 4.2-5.4 M/uL Hemoglobin 13.1 12.0-16.0 g/dL Hematocrit 39.7 37-47 % Mean Corpuscular Volume 85.6 80-100 fL Mean Corpuscular Hemoglobin 28.2 25-34 pg Mean Corpuscular Hemoglobin Concent 33.0 32-36 g/dl Platelet Count 315 130-400 K/uL Mean Platelet Volume 8.7 7.4-10.4 fL Neutrophils (%) (Auto) 74.1 % Lymphocytes (%) (Auto) 17.6 % Monocytes (%) (Auto) 6.2 % Eosinophils (%) (Auto) 1.4 % Basophils (%) (Auto) 0.4 % Neutrophils # (Auto) 6.85 1.4-6.5 K/uL Lymphocytes # (Auto) 1.63 1.2-3.4 K/uL Monocytes # (Auto) 0.57 0.11-0.59 K/uL Eosinophils # (Auto) 0.13 0-0.5 K/uL Basophils # (Auto) 0.04 0-0.2 K/uL RDW Standard Deviation 46.8 36.4-46.3 fL RDW Coefficient of Variation 15.0 11.5-14.5 % Immature Granulocyte % (Auto) 0.3 % Immature Granulocyte # (Auto) 0.03 0.00-0.02 K/uL Sodium Level 136 136-145 mmol/L Potassium Level 3.2 3.5-5.1 mmol/L Chloride Level 102 98-107 mmol/L Carbon Dioxide Level 28 21-32 mmol/L Anion Gap 6.0 3-11 mmol/L Blood Urea Nitrogen 12 7-18 mg/dl Creatinine 1.32 0.60-1.20 mg/dl Est Creatinine Clear Calc Drug Dose 44.8 ml/min Estimated GFR () 50.3 Estimated GFR (Non- 43.4 BUN/Creatinine Ratio 9.3 10-20 Random Glucose 137 70-99 mg/dl Calcium Level 8.8 8.5-10.1 mg/dl Total Bilirubin 0.6 0.2-1 mg/dl Direct Bilirubin 0.2 0-0.2 mg/dl Aspartate Amino Transf (AST/SGOT) 10 15-37 U/L Alanine Aminotransferase (ALT/SGPT) 16 12-78 U/L Alkaline Phosphatase 132 45-117 U/L Total Protein 7.8 6.4-8.2 gm/dl Albumin 3.7 3.4-5.0 gm/dl Lipase 159 73-393 U/L Urine Color YELLOW Urine Appearance CLEAR CLEAR Urine pH 6.5 4.5-7.5 Urine Specific [place] 1.032 1.000-1.030 Urine Protein NEG NEG Urine Glucose (UA) 3+ NEG Urine Ketones NEG NEG Urine Occult Blood NEG NEG Urine Nitrite NEG NEG Urine Bilirubin NEG NEG Urine Urobilinogen NEG NEG Urine Leukocyte Esterase NEG NEG Prothrombin Time 10.0 9.0-12.0 SECONDS Prothromb Time International Ratio 1.0 0.9-1.1 Activated Partial Thromboplast Time 26.8 21.0-31.0 SECONDS Partial Thromboplastin Ratio 1.0 Bedside Glucose 146 70-90 mg/dl Test 02/26/18 09:36 Range/Units Bedside Hemoglobin 13.6 12.0-16.0 g/dl Bedside Hematocrit 40 37-47 % Bedside Sodium 138 135-144 mEq/L Bedside Potassium 3.1 3.3-5.0 mEq/L Bedside Chloride 100 101-112 mEq/L Bedside Total CO2 27 24-31 mEq/l Anion Gap 15.0 16-25 mmol/L Bedside Blood Urea Nitrogen 12 7-18 mg/dl Bedside Creatinine 1.1 0.6-1.3 mg/dl Bedside Glucose (other) 139 70-99 mg/dl Bedside Ionized Calcium ([place]) 1.06 1.12-1.32 mmol/l Diagnostic Radiology CXR/ ABD XRAY: IMPRESSION: No acute process. EKG EKG: NSR, rate 77, Left anterior fascicular block. Past EKG reviews with left anterior fascicular block noted also Impression Assessment and Plan ABDOMINAL PAIN Pt with 3 days of upper abdominal pain and N/V. Denies melena, hematochezia, hematemesis. Hx gastric bypass, ulcer and stricture. Most recent EGD 01/18/[address] Christian had dilation of stricture at that time. Pt been drinking Redbull. In ER afebrile, vitals stable. No leukocytosis. negative U/A. Suspect gastritis. In ER pt given morphine, zofran, carafate po, 1500ml NSS. -zofran prn N/V -morphine prn pain -clear fluids -Protonix IV BID instead of home dose omeprazole po -GI consult - spoke to Joi REYES - recommends abd/pelvis CT -CBC, PRP in AM HYPOKALEMIA probable secondary to vomiting and poor po intake. Pt given 20meq K IV in ER. -replace and monitor prp ANNE Cr: 1.32. baseline ~1.0. suspect secondary to dehydration -IVF -monitor renal functions -avoid nephrotoxic agents when possible HYPERGLYCEMIA HA1c 6.4 in 2017. Pt reports hx DM II in past, however now diet controlled. -HA1c in am -sliding scale per protocol if needed DEPRESSION -continue Cymbalta and nortriptyline HYPOTHYROIDISM Not on medications -TSH added DVT Prophylaxis -SCDs in case GI plans a procedure Disposition admit [facility] Full code Follows with Dr Royal for routine care Pt was seen with Dr Herrera. See addendum ATTENDING ADDENDUM : pt seen and examined care co ordinated with Rosa Deleon PA-C 62 yo F with hx of peptic ulcer disease /gastric bypass surgery , esophageal stricture -presented to ED with complain of 2-3 days of epigastric pain , nausea Ct abdomen/pelvis shows : Subtle infiltration the perigastric fat near the level of the gastrojejunostomy. This is likely secondary to an infectious/inflammatory process (gastritis or ulcer). GI consultation for consideration of upper endoscopy is recommended GI eval requested NPO IV PPI monitor H&H Barbi Herrera MD Resuscitation Status VTE Prophylaxis Will order VTE Prophylaxis: Yes Additional Copies To Nolan Royal M.D.(GARRETT)
[2018-02-26] MEDS: MoRPHine SULFATE 2 MG/ML CARP IV PRN ×2 (13:57→20:55)
[2018-02-26] MEDS ORDERED: IV FLUIDS COMPLETED PRN (14:30)
[2018-02-26 15:13] VITALS: BP 123/77; PULSE 75; TEMP 36.5; O2SAT 97
[2018-02-26] MEDS: GABAPENTIN 300 MG CAP PO SCH ×2 (15:23→20:54)
[2018-02-26] MEDS: ONDANSETRON INJ 2 MG/ML 2 ML VIAL IV PRN (15:24)
[2018-02-26] MEDS ORDERED: POTASSIUM CHLORIDE INJ 40 MEQ in SODIUM CHLORIDE 0.9% 1000ML 1,000 ML IV SCH (16:00)
[2018-02-26] MEDS: MISOPROSTOL 100 MCG TAB PO SCH ×2 (16:33→20:54)
--- NOTE | 2018-02-26 16:38 | DIAGNOSTIC IMAGING REPORT ---
CT ABD/PELVIS IV AND ORAL CONT CLINICAL HISTORY: Abdominal pain and vomiting COMPARISON STUDY: February 19, 2017 TECHNIQUE: Following the IV administration of 115 mL of Optiray-320, CT scan of the abdomen and pelvis was performed from the lung bases to the proximal femurs. Images are reviewed in the axial, sagittal, and coronal planes. IV contrast was administered without complication. A dose lowering technique was utilized adhering to the principles of ALARA. CT DOSE: 489.55 mGy.cm FINDINGS: Lower chest: There are old right-sided rib deformities. There is a hiatal hernia. There are basilar atelectatic changes. There is an 8 mm solid left lower lobe pulmonary nodule, unchanged in size from the preceding study. Liver: There is mild central ductal prominence, likely secondary to a prior cholecystectomy. No focal masses are visualized. Gallbladder: Not visualized and presumed surgically absent Spleen: Normal in size and attenuation. Pancreas: Unremarkable. Adrenal glands: Unremarkable. Kidneys: There is symmetric renal cortical enhancement. The kidneys are normal in size without hydronephrosis. Bowel: There are postsurgical changes of a prior gastric bypass. There are no transition zones indicate bowel obstruction. There is infiltration of the perigastric fat near the level of the gastrojejunostomy. This likely is secondary to an infectious/inflammatory process. This could indicate a gastritis or ulcer. GI consultation for consideration of upper endoscopy is recommended.. Peritoneum: There is no intraperitoneal free air or abdominal ascites. Vasculature: The abdominal aorta is normal in course and caliber. Adenopathy: None. Pelvic viscera: The uterus appears surgically absent Skeletal structures: No destructive osseous lesions are seen. IMPRESSION: 1. Stable 8 mm left lower lobe pulmonary nodule 2. Postsurgical changes of a prior gastric bypass with [place] anastomosis 3. No evidence of bowel obstruction. No evidence of free air 4. Subtle infiltration the perigastric fat near the level of the gastrojejunostomy. This is likely secondary to an infectious/inflammatory process (gastritis or ulcer). GI consultation for consideration of upper endoscopy is recommended 5. Hiatal hernia Electronically signed by: Jevon Fitzpatrick M.D. 02/26/2018 4:36 PM Dictated Date/Time: 02/26/2018 4:26 PM
[2018-02-26] MEDS: INSULIN ASPART 100 UNITS/ML 3 ML PEN SC SCH ×2 (17:04→20:51)
[2018-02-26 19:15] VITALS: O2SAT 97
[2018-02-26] MEDS ORDERED: SUCRALFATE 1 GM/10 ML UDC PO ONE (19:15)
[2018-02-26] MEDS: PANTOprazole INJ 40 MG in SYRINGE 0 ML IV SCH (20:54)
[2018-02-26] MEDS: DULOXETINE (CYMBALTA) 30 MG CAP PO SCH (20:54)
[2018-02-26] MEDS: SUCRALFATE 1 GM/10 ML UDC PO SCH (20:54)
[2018-02-26] MEDS: NORTRIPTYLINE HCL 25 MG CAP PO SCH (20:54)
[2018-02-26 22:45] VITALS: BP 111/69; PULSE 69; TEMP 36.7; O2SAT 95
[2018-02-27 06:21] LABS: HEMATOCRIT 33.3 % (37-47); HEMOGLOBIN 10.8 g/dL (12.0-16.0); MEAN CELL VOLUME 86.5 fL (80-100); MEAN CORPUSCULAR HEMOGLOBIN 28.1 pg (25-34); MEAN CORPUSCULAR HGB CONC 32.4 g/dl (32-36); MEAN PLATELET VOLUME 8.7 fL (7.4-10.4); PLATELET COUNT 217 K/uL (130-400); RED CELL DISTRIBUTION WIDTH SD 48.1 fL (36.4-46.3); WHITE BLOOD COUNT 4.21 K/uL (4.8-10.8)
[2018-02-27 06:39] LABS: CALCIUM 7.9 mg/dl (8.5-10.1); CREATININE 0.95 mg/dl (0.60-1.20)
[2018-02-27 07:00] LABS: HEMOGLOBIN A1C 6.9 % (4.5-5.6)
[2018-02-27 07:17] VITALS: BP 127/70; PULSE 67; TEMP 36.9; O2SAT 97
[2018-02-27] MEDS: PANTOprazole INJ 40 MG in SYRINGE 0 ML IV SCH ×2 (08:42→21:25)
[2018-02-27] MEDS: GABAPENTIN 300 MG CAP PO SCH ×3 (08:42→21:24)
[2018-02-27] MEDS: DULOXETINE (CYMBALTA) 30 MG CAP PO SCH ×2 (08:43→21:24)
[2018-02-27] MEDS: MISOPROSTOL 100 MCG TAB PO SCH ×4 (08:43→21:24)
[2018-02-27] MEDS: SUCRALFATE 1 GM/10 ML UDC PO SCH ×4 (08:43→21:25)
[2018-02-27] MEDS: CYANOCOBALAMIN 100 MCG TAB (VIT B-12) PO SCH (08:44)
[2018-02-27] MEDS: INSULIN ASPART 100 UNITS/ML 3 ML PEN SC SCH ×4 (09:07→20:04)
[2018-02-27] MEDS: ONDANSETRON INJ 2 MG/ML 2 ML VIAL IV PRN ×2 (09:07→17:12)
--- NOTE | 2018-02-27 12:02 | Gastroenterology Progress Note ---
Progress Note Date of Service: Feb 27, 2018 Subjective Pt evaluation today including: conversation w/ patient, physical exam, lab review, review of studies, review of inpatient medication list Mild abdominal pain this morning that worsened with pill ingestion, otherwise feeling better. Review of Systems Constitutional: No fever, No chills Respiratory: No cough, No sputum Cardiac: No chest pain Abdomen: + see HPI Medications Current Inpatient Medications Medications (Trade) Dose Ordered Sig/Aaron Route Start Time Stop Time Status Last Admin Dose Admin Ondansetron HCl (Zofran Inj) 4 mg Q6H PRN IV 02/26/18 13:00 03/28/18 12:59 02/27/18 09:07 4 MG Al Hydrox/Mg Hydrox/Simethicone (Maalox Max Susp) 15 ml Q4H PRN PO 02/26/18 13:15 03/28/18 13:14 Magnesium Hydroxide (Milk Of Magnesia Susp) 30 ml Q6H PRN PO 02/26/18 13:15 03/28/18 13:14 Morphine Sulfate (MoRPHine SULFATE INJ) 2 mg Q4 PRN IV 02/26/18 13:15 03/12/18 13:14 02/26/18 20:55 2 MG Cyanocobalamin (Vitamin B-12 Tab) 100 mcg DAILY PO 02/27/18 09:00 03/29/18 08:59 02/27/18 08:44 100 MCG Duloxetine HCl (Cymbalta Cap) 30 mg BID PO 02/26/18 21:00 03/28/18 20:59 02/27/18 08:43 30 MG Folic Acid (Folvite Tab) 1 mg DAILY PO 02/27/18 09:00 03/29/18 08:59 02/27/18 08:43 1 MG Gabapentin (Neurontin Cap) 300 mg TID PO 02/26/18 14:00 03/28/18 13:59 02/27/18 08:42 300 MG Misoprostol (Cytotec Tab) 100 mcg QID PO 02/26/18 17:00 03/28/18 16:59 02/27/18 08:43 100 MCG Nortriptyline HCl (Pamelor Cap) 25 mg HS PO 02/26/18 21:00 03/28/18 20:59 02/26/18 20:54 25 MG Pantoprazole Sodium 40 mg/ Syringe 10 ml @ 5 mls/min BID@0900,2100 IV 02/26/18 21:00 03/28/18 20:59 02/27/18 08:42 5 MLS/MIN Ioversol (Optiray 320) 125 ml UD PRN IV 02/26/18 13:30 03/02/18 13:29 Insulin Aspart (novoLOG ASPART) SLIDING SCALE If C... ACHS SC 02/26/18 16:30 03/28/18 16:29 02/26/18 17:04 1 UNITS Glucose (Glucose 40% Gel) 15-30 GRAMS 15 GRAMS... UD PRN PO 02/26/18 13:30 03/28/18 13:29 Glucose (Glucose Chew Tab) 4-8 Tablets 4 Tabl... UD PRN PO 02/26/18 13:30 03/28/18 13:29 Dextrose (Dextrose 50% 50ML Syringe) 25-50ML OF 50% DW IV FOR... UD PRN IV 02/26/18 13:30 03/28/18 13:29 Glucagon (Glucagon Inj) 1 mg UD PRN SQ 02/26/18 13:30 03/28/18 13:29 Miscellaneous (Iv Fluids Completed) 1 ea PRN PRN N/A 02/26/18 14:30 02/26/19 14:29 Sucralfate (Carafate Susp) 1 gm QID PO 02/26/18 21:00 03/28/18 20:59 02/27/18 08:43 1 GM Objective Vital Signs Date Time Temp Pulse Resp B/P (MAP) Pulse Ox O2 Delivery O2 Flow Rate FiO2 02/27/18 08:00 Room Air 02/27/18 07:17 36.9 67 20 127/70 (89) 97 Room Air 02/26/18 23:59 Room Air 02/26/18 22:45 36.7 69 20 111/69 (83) 95 Room Air 02/26/18 19:15 97 Room Air 02/26/18 16:00 Room Air 02/26/18 15:13 36.5 75 18 123/77 (92) 97 Room Air 02/26/18 14:44 80 14 134/67 98 02/26/18 13:31 75 12 109/60 97 Room Air 02/26/18 12:59 91 Room Air 02/26/18 12:30 71 117/59 91 Room Air 02/26/18 12:00 83 20 130/75 99 Room Air Physical Exam General Appearance: WD/WN, no apparent distress Eyes: PERRL, EOMI Respiratory/Chest: chest non-tender, lungs clear, normal breath sounds, no respiratory distress, no accessory muscle use Cardiovascular: regular rate, rhythm, no edema, no gallop Abdomen: normal bowel sounds, non tender, soft Laboratory Results Last 24 Hours Test 02/26/18 16:54 02/26/18 20:50 02/27/18 05:36 02/27/18 07:33 Bedside Glucose 151 mg/dl 141 mg/dl 100 mg/dl White Blood Count 4.21 K/uL Red Blood Count 3.85 M/uL Hemoglobin 10.8 g/dL Hematocrit 33.3 % Mean Corpuscular Volume 86.5 fL Mean Corpuscular Hemoglobin 28.1 pg Mean Corpuscular Hemoglobin Concent 32.4 g/dl RDW Standard Deviation 48.1 fL RDW Coefficient of Variation 15.0 % Platelet Count 217 K/uL Mean Platelet Volume 8.7 fL Sodium Level 140 mmol/L Potassium Level 4.0 mmol/L Chloride Level 110 mmol/L Carbon Dioxide Level 25 mmol/L Anion Gap 5.0 mmol/L Blood Urea Nitrogen 5 mg/dl Creatinine 0.95 mg/dl Est Creatinine Clear Calc Drug Dose 62.2 ml/min Estimated GFR () 74.9 Estimated GFR (Non- 64.6 BUN/Creatinine Ratio 5.5 Random Glucose 86 mg/dl Estimated Average Glucose 151 mg/dl Hemoglobin A1c 6.9 % Calcium Level 7.9 mg/dl Test 02/27/18 11:19 Bedside Glucose 130 mg/dl Assessment and Plan 62 year old female w hx of gastric bypass, healing ulcer and 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 Has associated N/V. No bowel habit changes. Admits to be compliant w her PPI and Misoprostol. However admits to tobacco smoking occasionally and drinking Red Bull once daily. Denies NSAIDs and ETOH. Plan - CT A/P reviewed- no evidence of obstruction. Persistent inflammation consistent with PUD which is known. - CL diet - Protonix 40mg IV BID, Misoprostol 100mcg QID. Carafate 1 gram qid. - Last EGD w stenosis dilation on 01/18/18 - Advised to quite tobacco and caffeinated beverages; remain abstinent of ETOH Attg add (late entry): I interviewed and examined pt, reviewed chart and labs, agree with plan as above. Pt with h//o mult anast ulcers, s/p approx 15 EGD's in the past, currently maintained on cytotec and PPI. She was admit with acute worsening of upper abd pain that has now resolved. Will plan EGD to r/o recurrent ulcer and stenosis.
[2018-02-27 14:37] VITALS: BP 104/66; PULSE 92; TEMP 36.9; O2SAT 90
--- NOTE | 2018-02-27 15:06 | Progress Note ---
Subjective Date of Service: Feb 27, 2018. Subjective Pt evaluation today including: conversation w/ patient, physical exam, lab review, review of studies, review of inpatient medication list Saw/examined the patient in room 255 She's doing well today, states she feels much better Had some nausea this AM after her pills, but improved after Zofran Tolerating clear liquid diet Problem List Medical Problems: (1) Constipation by delayed colonic transit Status: Acute (2) Epigastric abdominal pain Status: Acute (3) Hypokalemia Status: Acute (4) Intractable abdominal pain Status: Acute (5) Migraine Status: Acute (6) Peptic ulcer Status: Acute (7) Vomiting Status: Acute Review of Systems Constitutional: No fever, No chills Respiratory: No cough, No sputum, No shortness of breath Cardiac: No chest pain, No edema, No palpitations Abdomen: + pain (epigastric), + nausea, No vomiting, No diarrhea, No constipation, No GI bleeding Heme: No abnormal bleeding/bruising Medications Current Inpatient Medications Medications (Trade) Dose Ordered Sig/Aaron Route Start Time Stop Time Status Last Admin Dose Admin Ondansetron HCl (Zofran Inj) 4 mg Q6H PRN IV 02/26/18 13:00 03/28/18 12:59 02/27/18 09:07 4 MG Al Hydrox/Mg Hydrox/Simethicone (Maalox Max Susp) 15 ml Q4H PRN PO 02/26/18 13:15 03/28/18 13:14 Magnesium Hydroxide (Milk Of Magnesia Susp) 30 ml Q6H PRN PO 02/26/18 13:15 03/28/18 13:14 Morphine Sulfate (MoRPHine SULFATE INJ) 2 mg Q4 PRN IV 02/26/18 13:15 03/12/18 13:14 02/26/18 20:55 2 MG Cyanocobalamin (Vitamin B-12 Tab) 100 mcg DAILY PO 02/27/18 09:00 03/29/18 08:59 02/27/18 08:44 100 MCG Duloxetine HCl (Cymbalta Cap) 30 mg BID PO 02/26/18 21:00 03/28/18 20:59 02/27/18 08:43 30 MG Folic Acid (Folvite Tab) 1 mg DAILY PO 02/27/18 09:00 03/29/18 08:59 02/27/18 08:43 1 MG Gabapentin (Neurontin Cap) 300 mg TID PO 02/26/18 14:00 03/28/18 13:59 02/27/18 13:31 300 MG Misoprostol (Cytotec Tab) 100 mcg QID PO 02/26/18 17:00 03/28/18 16:59 02/27/18 12:21 100 MCG Nortriptyline HCl (Pamelor Cap) 25 mg HS PO 02/26/18 21:00 03/28/18 20:59 02/26/18 20:54 25 MG Pantoprazole Sodium 40 mg/ Syringe 10 ml @ 5 mls/min BID@0900,2100 IV 02/26/18 21:00 03/28/18 20:59 02/27/18 08:42 5 MLS/MIN Ioversol (Optiray 320) 125 ml UD PRN IV 02/26/18 13:30 03/02/18 13:29 Insulin Aspart (novoLOG ASPART) SLIDING SCALE If C... ACHS SC 02/26/18 16:30 03/28/18 16:29 02/27/18 12:23 1 UNITS Glucose (Glucose 40% Gel) 15-30 GRAMS 15 GRAMS... UD PRN PO 02/26/18 13:30 03/28/18 13:29 Glucose (Glucose Chew Tab) 4-8 Tablets 4 Tabl... UD PRN PO 02/26/18 13:30 03/28/18 13:29 Dextrose (Dextrose 50% 50ML Syringe) 25-50ML OF 50% DW IV FOR... UD PRN IV 02/26/18 13:30 03/28/18 13:29 Glucagon (Glucagon Inj) 1 mg UD PRN SQ 02/26/18 13:30 03/28/18 13:29 Miscellaneous (Iv Fluids Completed) 1 ea PRN PRN N/A 02/26/18 14:30 02/26/19 14:29 Sucralfate (Carafate Susp) 1 gm QID PO 02/26/18 21:00 03/28/18 20:59 02/27/18 12:21 1 GM Objective Vital Signs Date Time Temp Pulse Resp B/P (MAP) Pulse Ox O2 Delivery O2 Flow Rate FiO2 02/27/18 14:37 36.9 92 18 104/66 (79) 90 Room Air 02/27/18 08:00 Room Air 02/27/18 07:17 36.9 67 20 127/70 (89) 97 Room Air 02/26/18 23:59 Room Air 02/26/18 22:45 36.7 69 20 111/69 (83) 95 Room Air 02/26/18 19:15 97 Room Air 02/26/18 16:00 Room Air 02/26/18 15:13 36.5 75 18 123/77 (92) 97 Room Air 02/26/18 14:44 80 14 134/67 98 Physical Exam General Appearance: no apparent distress Respiratory/Chest: lungs clear, normal breath sounds, no respiratory distress, no accessory muscle use Cardiovascular: regular rate, rhythm, no edema, no murmur Abdomen: normal bowel sounds, non tender, soft Laboratory Results Last 24 Hours Test 02/26/18 16:54 02/26/18 20:50 02/27/18 05:36 02/27/18 07:33 Bedside Glucose 151 mg/dl 141 mg/dl 100 mg/dl White Blood Count 4.21 K/uL Red Blood Count 3.85 M/uL Hemoglobin 10.8 g/dL Hematocrit 33.3 % Mean Corpuscular Volume 86.5 fL Mean Corpuscular Hemoglobin 28.1 pg Mean Corpuscular Hemoglobin Concent 32.4 g/dl RDW Standard Deviation 48.1 fL RDW Coefficient of Variation 15.0 % Platelet Count 217 K/uL Mean Platelet Volume 8.7 fL Sodium Level 140 mmol/L Potassium Level 4.0 mmol/L Chloride Level 110 mmol/L Carbon Dioxide Level 25 mmol/L Anion Gap 5.0 mmol/L Blood Urea Nitrogen 5 mg/dl Creatinine 0.95 mg/dl Est Creatinine Clear Calc Drug Dose 62.2 ml/min Estimated GFR () 74.9 Estimated GFR (Non- 64.6 BUN/Creatinine Ratio 5.5 Random Glucose 86 mg/dl Estimated Average Glucose 151 mg/dl Hemoglobin A1c 6.9 % Calcium Level 7.9 mg/dl Test 02/27/18 11:19 Bedside Glucose 130 mg/dl Assessment and Plan This is a 62 year old female with a past medical history of gastric bypass, PUD , DM2, depression, hypothyroidism, HLD, iron deficiency anemia, tobacco use disorder - presents with epigastric pain, nausea Epigastric Pain Known PUD - peptic ulcer disease - recently had an EGD - plan to continue PPI BID, Misoprostol; adding Carafate - appreciate GI input - clear liquid diet - advance diet as tolerated - will monitor and hopefully d/c on 02/28 DM2 - no longer on medications s/p gastric bypass - Ha1c = 6.9%; monitor Major Depressive Disorder - continue home medications DVT ppx - SCDs FULL CODE
[2018-02-27 16:00] VITALS: O2SAT 90
[2018-02-27] MEDS: MoRPHine SULFATE 2 MG/ML CARP IV PRN (17:12)
[2018-02-27] MEDS: NORTRIPTYLINE HCL 25 MG CAP PO SCH (21:24)
[2018-02-27 22:56] VITALS: BP 108/64; PULSE 67; TEMP 36.6; O2SAT 94
[2018-02-28 07:51] LABS: HEMATOCRIT 33.6 % (37-47); HEMOGLOBIN 10.7 g/dL (12.0-16.0); MEAN CELL VOLUME 86.8 fL (80-100); MEAN CORPUSCULAR HEMOGLOBIN 27.6 pg (25-34); MEAN CORPUSCULAR HGB CONC 31.8 g/dl (32-36); MEAN PLATELET VOLUME 8.7 fL (7.4-10.4); PLATELET COUNT 220 K/uL (130-400); RED CELL DISTRIBUTION WIDTH CV 14.9 % (11.5-14.5); RED CELL DISTRIBUTION WIDTH SD 47.2 fL (36.4-46.3); WHITE BLOOD COUNT 3.83 K/uL (4.8-10.8)
[2018-02-28 07:54] VITALS: BP 123/71; PULSE 58; TEMP 36.7; O2SAT 96
[2018-02-28] MEDS: INSULIN ASPART 100 UNITS/ML 3 ML PEN SC SCH ×2 (08:10→14:07)
[2018-02-28 08:15] LABS: CALCIUM 8.1 mg/dl (8.5-10.1); CREATININE 1.01 mg/dl (0.60-1.20); POTASSIUM 4.2 mmol/L (3.5-5.1)
[2018-02-28] MEDS: PANTOprazole INJ 40 MG in SYRINGE 0 ML IV SCH (08:49)
[2018-02-28] MEDS: GABAPENTIN 300 MG CAP PO SCH ×2 (09:00→12:55)
[2018-02-28] MEDS: SUCRALFATE 1 GM/10 ML UDC PO SCH ×2 (09:00→12:56)
[2018-02-28] MEDS: MISOPROSTOL 100 MCG TAB PO SCH ×2 (09:00→12:55)
[2018-02-28] MEDS ORDERED: LIDOCAINE HCL 2% 2 ML VIAL (20MG/ML) ONE (11:32)
[2018-02-28] MEDS ORDERED: PROPOFOL IV EMULSION 10 MG/ML 20 ML VIAL IV ONE (11:32)
--- NOTE | 2018-02-28 11:33 | History & Physical Bridge Note ---
H&P Re-Evaluation Bridge Note: I have examined the patient, reviewed the History & Physical and in the interval since the performance of the History & Physical I have noted the following changes of clinical significance: No changes noted
[2018-02-28] MEDS ORDERED: FENTANYL CITRATE INJ 50 MCG/1 ML 2 ML VIAL ONE (11:37)
--- NOTE | 2018-02-28 12:04 | GI REPORT ---
Patient Name: Nicole Kelley Procedure Date: 02/28/2018 11:42 AM Date of : 1955 Admit Type: Inpatient Age: 62 Gender: Female Attending MD: Shiva Quiles MD Procedure: Upper GI endoscopy Providers: Shiva Quiles MD Referring MD: Nisa Reyes Md Indications: Abdominal pain; h/o RYGB in 1999 with persistent recurring ulcer and stricture at anastamosis, s/p recent dilation in January 2018. On cytotec 100 QID and PPI; Denies NSAIDs; + tobacco. Medicines: See the Anesthesia note for documentation of the administered medications Complications: No immediate complications. Estimated Blood Loss: Estimated blood loss: none. Procedure: Pre-Anesthesia Assessment: - ASA Grade Assessment: III - A patient with severe systemic disease. After obtaining informed consent, the endoscope was passed under direct vision. Throughout the procedure, the patient's blood pressure, pulse, and oxygen saturations were monitored continuously. The scope was introduced through the mouth, and advanced to the efferent jejunal loop. The upper GI endoscopy was accomplished without difficulty. The patient tolerated the procedure well. Findings: The examined esophagus was normal. The gastric pouch was small. The mucosa of the stomach was unremarkable. There was a gastro-enteric anastamosis. There was marked edema and mild narrowing of the anastamosis with easy passage of the upper endoscope. There was a giant (> 3cm) cratered ulcer at the jejunal side of the anastamosis. The base of the ulcer had a flat pigmented spot. The ulcer crater appeared deep. The ulcer appeared benign, with no associated at the mass. The edges of the ulcer were biopsied. The examined portion of the small intestine was normal. Impression: - Large cratered anastamotic ulcer. Mild associated narrowing of anastamosis. Recommendation: - Discharge patient to floor. Diet as tolerated. She may be discharged home if she tolerates PO. Would repeat EGD in 8 weeks. Smoking cessation and strict NSAID avoidance should be emphasized. Would continue BID PPI and increase Cytotec to 200 QID if tolerated. Would consider outpt f/u with bariatric surgery service for consideration for revision of bypass, given recurrent stricturing/ulcering disease. Shiva Quiles M.D. Shiva Quiles MD 02/28/2018 12:04:09 PM This report has been signed electronically. Note Initiated On: 02/28/2018 11:42 AM Number of Addenda: 0 I attest to the content of the Intraoperative Record and orders documented therein, exceptions below {[id number]}
--- NOTE | 2018-02-28 12:53 | Anesthesiology Progress Note ---
Anesthesia Post Op Note Date & Time Feb 28, 2018 at 12:53 Vital Signs Pain Intensity: 0 Vital Signs Past 12 Hours Date Time Temp Pulse Resp B/P (MAP) Pulse Ox O2 Delivery O2 Flow Rate FiO2 02/28/18 12:30 67 18 116/62 (80) 96 Room Air 02/28/18 12:14 68 18 121/63 (82) 95 Room Air 02/28/18 11:59 65 18 115/62 (79) 94 Room Air 02/28/18 10:54 36.6 66 18 125/68 (87) 99 Room Air 02/28/18 08:00 Room Air 02/28/18 07:54 36.7 58 18 123/71 (88) 96 Room Air Notes Mental Status: alert / awake / arousable, participated in evaluation Pt Amnestic to Procedure: Yes Nausea / Vomiting: adequately controlled Pain: adequately controlled Airway Patency, RR, SpO2: stable & adequate BP & HR: stable & adequate Hydration State: stable & adequate Anesthetic Complications: no major complications apparent
[2018-02-28] MEDS: CYANOCOBALAMIN 100 MCG TAB (VIT B-12) PO SCH (12:54)
[2018-02-28] MEDS: DULOXETINE (CYMBALTA) 30 MG CAP PO SCH (12:56)
[2018-02-28 15:21] VITALS: BP 116/62; PULSE 67; TEMP 36.6; O2SAT 96
[2018-02-28 15:39] VITALS: BP 137/77; PULSE 67; TEMP 36.6; O2SAT 94
--- NOTE | 2018-02-28 16:08 | Progress Note ---
Subjective Date of Service: Feb 28, 2018. Subjective Pt evaluation today including: conversation w/ patient, physical exam, lab review, review of studies, review of inpatient medication list Saw/examined the patient in room 255 She had an EGD - no other issues to note she is tolerating her diet no abdominal pain, no nausea/vomiting; diarrhea resolved Problem List Medical Problems: (1) Constipation by delayed colonic transit Status: Acute (2) Epigastric abdominal pain Status: Acute (3) Hypokalemia Status: Acute (4) Intractable abdominal pain Status: Acute (5) Migraine Status: Acute (6) Peptic ulcer Status: Acute (7) Vomiting Status: Acute Review of Systems Constitutional: No fever, No chills, No weakness Respiratory: No cough, No sputum, No shortness of breath Cardiac: No chest pain, No edema, No palpitations Abdomen: No pain (improving), No nausea, No vomiting, No diarrhea (improving), No constipation, No GI bleeding Musculoskeletal: No joint pain Heme: No abnormal bleeding/bruising Medications Current Inpatient Medications Medications (Trade) Dose Ordered Sig/Aaron Route Start Time Stop Time Status Last Admin Dose Admin Ondansetron HCl (Zofran Inj) 4 mg Q6H PRN IV 02/26/18 13:00 03/28/18 12:59 02/27/18 17:12 4 MG Al Hydrox/Mg Hydrox/Simethicone (Maalox Max Susp) 15 ml Q4H PRN PO 02/26/18 13:15 03/28/18 13:14 Magnesium Hydroxide (Milk Of Magnesia Susp) 30 ml Q6H PRN PO 02/26/18 13:15 03/28/18 13:14 Morphine Sulfate (MoRPHine SULFATE INJ) 2 mg Q4 PRN IV 02/26/18 13:15 03/12/18 13:14 02/27/18 17:12 2 MG Cyanocobalamin (Vitamin B-12 Tab) 100 mcg DAILY PO 02/27/18 09:00 03/29/18 08:59 02/28/18 12:54 100 MCG Duloxetine HCl (Cymbalta Cap) 30 mg BID PO 02/26/18 21:00 03/28/18 20:59 02/28/18 12:56 30 MG Folic Acid (Folvite Tab) 1 mg DAILY PO 02/27/18 09:00 03/29/18 08:59 02/28/18 12:56 1 MG Gabapentin (Neurontin Cap) 300 mg TID PO 02/26/18 14:00 03/28/18 13:59 02/28/18 12:55 300 MG Nortriptyline HCl (Pamelor Cap) 25 mg HS PO 02/26/18 21:00 03/28/18 20:59 02/27/18 21:24 25 MG Pantoprazole Sodium 40 mg/ Syringe 10 ml @ 5 mls/min BID@0900,2100 IV 02/26/18 21:00 03/28/18 20:59 02/28/18 08:49 5 MLS/MIN Ioversol (Optiray 320) 125 ml UD PRN IV 02/26/18 13:30 03/02/18 13:29 Insulin Aspart (novoLOG ASPART) SLIDING SCALE If C... ACHS SC 02/26/18 16:30 03/28/18 16:29 02/27/18 17:26 3 UNITS Glucose (Glucose 40% Gel) 15-30 GRAMS 15 GRAMS... UD PRN PO 02/26/18 13:30 03/28/18 13:29 Glucose (Glucose Chew Tab) 4-8 Tablets 4 Tabl... UD PRN PO 02/26/18 13:30 03/28/18 13:29 Dextrose (Dextrose 50% 50ML Syringe) 25-50ML OF 50% DW IV FOR... UD PRN IV 02/26/18 13:30 03/28/18 13:29 Glucagon (Glucagon Inj) 1 mg UD PRN SQ 02/26/18 13:30 03/28/18 13:29 Miscellaneous (Iv Fluids Completed) 1 ea PRN PRN N/A 02/26/18 14:30 02/26/19 14:29 Sucralfate (Carafate Susp) 1 gm QID PO 02/26/18 21:00 03/28/18 20:59 02/28/18 12:56 1 GM Misoprostol (Cytotec Tab) 200 mcg QID PO 02/28/18 17:00 03/28/18 16:59 Objective Vital Signs Date Time Temp Pulse Resp B/P (MAP) Pulse Ox O2 Delivery O2 Flow Rate FiO2 02/28/18 15:39 36.6 67 17 137/77 (97) 94 Room Air 02/28/18 15:21 36.6 67 18 96 Room Air 02/28/18 12:30 67 18 116/62 (80) 96 Room Air 02/28/18 12:14 68 18 121/63 (82) 95 Room Air 02/28/18 11:59 65 18 115/62 (79) 94 Room Air 02/28/18 10:54 36.6 66 18 125/68 (87) 99 Room Air 02/28/18 08:00 Room Air 02/28/18 07:54 36.7 58 18 123/71 (88) 96 Room Air 02/28/18 00:00 Room Air 02/27/18 22:56 36.6 67 18 108/64 (79) 94 Room Air Physical Exam General Appearance: no apparent distress Respiratory/Chest: lungs clear, normal breath sounds, no respiratory distress, no accessory muscle use Cardiovascular: regular rate, rhythm, no edema, no murmur Abdomen: normal bowel sounds, non tender, soft Laboratory Results Last 24 Hours Test 02/27/18 16:36 02/27/18 19:44 02/28/18 07:12 02/28/18 07:39 Bedside Glucose 113 mg/dl 80 mg/dl 95 mg/dl White Blood Count 3.83 K/uL Red Blood Count 3.87 M/uL Hemoglobin 10.7 g/dL Hematocrit 33.6 % Mean Corpuscular Volume 86.8 fL Mean Corpuscular Hemoglobin 27.6 pg Mean Corpuscular Hemoglobin Concent 31.8 g/dl RDW Standard Deviation 47.2 fL RDW Coefficient of Variation 14.9 % Platelet Count 220 K/uL Mean Platelet Volume 8.7 fL Sodium Level 141 mmol/L Potassium Level 4.2 mmol/L Chloride Level 109 mmol/L Carbon Dioxide Level 29 mmol/L Anion Gap 3.0 mmol/L Blood Urea Nitrogen 4 mg/dl Creatinine 1.01 mg/dl Est Creatinine Clear Calc Drug Dose 58.5 ml/min Estimated GFR () 69.6 Estimated GFR (Non- 60.0 BUN/Creatinine Ratio 3.9 Random Glucose 96 mg/dl Calcium Level 8.1 mg/dl Test 02/28/18 12:44 Bedside Glucose 85 mg/dl Assessment and Plan This is a 62 year old female with a past medical history of gastric bypass, PUD , DM2, depression, hypothyroidism, HLD, iron deficiency anemia, tobacco use disorder - presents with epigastric pain, nausea Epigastric Pain Known PUD 02/28 - s/p EGD, no significant findings - outpatient f/u with bariatric surgeon for possible revision - Carafate added, Misoprostol dose increased, PPI BID 02/27 - peptic ulcer disease - recently had an EGD - plan to continue PPI BID, Misoprostol; adding Carafate - appreciate GI input - clear liquid diet - advance diet as tolerated - will monitor and hopefully d/c on 02/28 DM2 - no longer on medications s/p gastric bypass - Ha1c = 6.9%; monitor Major Depressive Disorder - continue home medications DVT ppx - SCDs FULL CODE
[2018-02-28] MEDS ORDERED: PANT40TA PO (16:16)
[2018-02-28] MEDS ORDERED: CRFUDL PO (16:16)
[2018-02-28] MEDS ORDERED: MISO200T PO (16:16)
--- NOTE | 2018-02-28 16:22 | Discharge Instructions ---
Discharge Instructions Date of Service Feb 28, 2018. Admission Reason for Admission: Abdominal Pain Discharge Discharge Diagnosis / Problem: Peptic Ulcer Disease Discharge Goals Goal(s): Decrease discomfort, Improve function, Diagnostic testing, Therapeutic intervention Activity Recommendations Activity Limitations: resume your previous activity . Instructions / Follow-Up Instructions / Follow-Up Please follow-up with Dr. Royal on March 04 at 11:05AM * You are started on Carafate four times daily * Your dose of Misoprostol is increased to 200mcg four times daily * Continue Prilosec twice daily * Outpatient follow-up with bariatric surgeon Current Hospital Diet Patient's current hospital diet: Diabetes Type 2 Diet Discharge Diet Recommended Diet: Diabetes Type 2 Diet Procedures Procedures Performed: BX Pending Studies Studies pending at discharge: no Laboratory Results Hemoglobin A1c Test 02/27/18 05:36 Range/Units Estimated Average Glucose 151 mg/dl Hemoglobin A1c 6.9 H 4.5-5.6 % Medical Emergencies . Who to Call and When: Medical Emergencies: If at any time you feel your situation is an emergency, please call 911 immediately. . Non-Emergent Contact Non-Emergency issues call your: Primary Care Provider . . "Provider Documentation" section prepared by Nisa Reyes. .
--- NOTE | 2018-02-28 16:25 | Discharge Summary ---
Discharge Summary Date of Service Feb 28, 2018. Discharge Summary Admission Date: Feb 26, 2018 at 12:53 Discharge Date: Feb 28, 2018 Discharge Disposition: Home Principal Diagnosis: Epigastric Pain Peptic Ulcer Disease Status Post Gastric Bypass Diet controlled DM2 Major Depressive Disorder Medication Reconciliation New Medications: Sucralfate (Sucralfate) 1 Gm/10 Ml Susp 1 GM PO QID for 30 Days, #1200 ML Changed Medications: Misoprostol (Cytotec) 200 Mcg Tab 200 MCG PO QID for 30 Days, #120 TAB (Changed from: Misoprostol (Cytotec) 100 Mcg Tab 100 Mcg PO QID #120 ) Continued Medications: Cyanocobalamin (Vitamin B-12) 100 Mcg Tab 1 TAB PO DAILY Duloxetine HCl (Cymbalta) 30 Mg Cap 1 CAP PO BID for 30 Days, #60 CAP 5 Refills Folic Acid (Folvite) 1 Mg Tab 1 MG PO DAILY, TAB Gabapentin (Gabapentin) 300 Mg Cap 1 CAP PO TID Nortriptyline (Pamelor) 25 Mg Cap 25 MG PO HS, CAP Omeprazole (Prilosec) 20 Mg Capcr 20 MG PO BID, CAP Admission Information HPI (per Admitting provider): Pt is 62 y/o F with PMH peptic ulcer, esophageal stricture, GERD, gastric bypass , depression presented to ER with c/o upper abdominal pain x 3 days. States having nausea and vomiting 2-3 times a day over the past 3 days. Also with epigastric discomfort described as constant sharp pain aggravated by eating. States was able to keep down toast and pretzels some over past couple of days, however other times has emesis. Reports small soft BM's daily which is "normal" for her. Pt reports has been drinking one Redbull drink daily. She states hasn't been drinking that past couple of days secondary to abdominal discomfort. Reports has not been drinking ETOH or using NSAIDs, and denies tobacco use to this provider. Denies fever/chills, diaphoresis, [place]WIN, dizziness, syncope, vision changes, neck pain, CP, SOB, orthopnea, palpitations, cough, sore throat, choking, otalgia, rhinorrhea, hematemesis, hematochezia, melena, paresthesias, weakness, extremity edema, rashes, urinary symptoms, weight loss. Hx bowel obstruction in past. Hx cholecystectomy, hysterectomy, appendectomy. Hx EGD with Dr Christian on 01/18/18 - dilation of esophageal stricture. Pt reports hx ulcer in past. Physical Exam (per Admitting): General Appearance: WD/WN, no apparent distress Head: normocephalic, atraumatic Eyes: normal inspection, sclerae normal ENT: hearing grossly normal, pharynx normal, + pertinent finding (mildly dry mucous membranes) Neck: supple, no JVD, trachea midline Respiratory/Chest: lungs clear, normal breath sounds, no respiratory distress Cardiovascular: regular rate, rhythm, no murmur Abdomen/GI: normal bowel sounds, soft, + tenderness (RUQ, epigastric, LUQ without guarding or rebound. ), + pertinent finding (+healed surgical scars noted) Back: no CVA tenderness Extremities/Musculoskelatal: normal inspection, no pedal edema, normal range of motion, non-tender Neurologic/Psych: alert, normal mood/affect, + abnormal cerebellar tests Skin: normal color, warm/dry Hospital Course This is a 62 year old female with a past medical history of gastric bypass, PUD , DM2, depression, hypothyroidism, HLD, iron deficiency anemia, tobacco use disorder - presents with epigastric pain, nausea Epigastric Pain Known PUD 02/28 - s/p EGD, no significant findings - outpatient f/u with bariatric surgeon for possible revision - Carafate added, Misoprostol dose increased, PPI BID 02/27 - peptic ulcer disease - recently had an EGD - plan to continue PPI BID, Misoprostol; adding Carafate - appreciate GI input - clear liquid diet - advance diet as tolerated - will monitor and hopefully d/c on 02/28 DM2 - no longer on medications s/p gastric bypass - Ha1c = 6.9%; monitor Major Depressive Disorder - continue home medications DVT ppx - SCDs FULL CODE Total time spent on discharge = 25 minutes This includes examination of the patient, discharge planning, medication reconciliation, and communication with other providers. Discharge Instructions Please follow-up with Dr. Royal on March 04 at 11:05AM * You are started on Carafate four times daily * Your dose of Misoprostol is increased to 200mcg four times daily * Continue Prilosec twice daily * Outpatient follow-up with bariatric surgeon
[2018-02-28] MEDS ORDERED: MISOPROSTOL 200 MCG TAB PO SCH (17:00)
== END 2018-02-28 16:32 | disposition home or self-care (01) ==
LOC: C.EDB 08:52 → C.MS2W 12:53 → ENRESERV 13:17
PROVIDERS: ADMIT Hospitalist; ATTEND Family Medicine
DX: R10.13 Epigastric pain (principal); K27.9 Peptic ulcer, site unspecified, unspecified as acute or chronic, without hemorrhage or perforation; Z98.84 Bariatric surgery status; E11.9 Type 2 diabetes mellitus without complications; F32.9 Major depressive disorder, single episode, unspecified; Z79.899 Other long term (current) drug therapy; F17.200 Nicotine dependence, unspecified, uncomplicated; Z90.89 Acquired absence of other organs; Z90.710 Acquired absence of both cervix and uterus; Z90.49 Acquired absence of other specified parts of digestive tract; Z88.2 Allergy status to sulfonamides; Z83.3 Family history of diabetes mellitus; Z82.49 Family history of ischemic heart disease and other diseases of the circulatory system

== ENCOUNTER 2018-03-16 19:14 | Emergency (ER) | payer OTHER ==
[~2018-03-16] VITALS: Ht 162.6 cm; Wt 76.9 kg
[~2018-03-16 19:14] MED LIST changes: +CRFUDL PO; +CYM/30 PO; -MISO1TAB10 PO; +MISO200T PO; +NRN300 PO; -ONDA8TAB62 SL; -TRAZ100T29 PO; -VENL75CA73 PO; +VTMB12100 PO
[2018-03-16 19:17] VITALS: Ht 162.6 cm; Wt 76.9 kg
[2018-03-16] MEDS ORDERED: HYDROCODONE/ACETAMIN 5/325MG TAB PO STA (19:25)
[2018-03-16] MEDS ORDERED: PANT40TA PO (19:30)
[2018-03-16] MEDS ORDERED: ONDA4TAB9 PO (19:30)
[2018-03-16] MEDS ORDERED: MISO1TAB10 PO (19:30)
[2018-03-16] MEDS ORDERED: CYM20 PO (19:30)
[2018-03-16] MEDS ORDERED: VENL37.593 PO (19:30)
--- NOTE | 2018-03-16 19:35 | EMERGENCY ROOM VISIT NOTE ---
ED Visit Note First contact with patient: 19:21 CHIEF COMPLAINT: Wrist injury HISTORY OF PRESENT ILLNESS: This 62-year-old female patient presents to the emergency department by private vehicle complaining of pain in the left hand and wrist after injuring from a fall 2 days ago. Patient states that she was carrying a turkey and slipped on a wet floor in her kitchen, fell and put out her left hand to catch her fall. She states that she was initially managing the pain with ice and ibuprofen, however the pain has gotten worse today and the bruising has increased. She denies any previous injuries to this wrist.. The patient is able to move their wrist, but this greatly increases the pain. The patient states the pain is throbbing and 7/10. No laceration, no weakness. No numbness or tingling. Patient states that she has had trouble using the hand today because of increased swelling and is not able to bend her fingers very well. The patient denies any other injury. The patient is able to move the elbow without difficulty. The patient has taken ibuprofen for the pain last dose was 2:30 PM today. REVIEW OF SYSTEMS: A 6 system review of systems was performed with positives and pertinent negatives in the HPI. ALLERGIES: Reviewed in chart, see below MEDICATIONS: Reviewed in chart, see below PMH: Reviewed in chart, see problem list below SOCIAL HISTORY: Lives at home. She is a former smoker. She denies alcohol use. PHYSICAL EXAM: Vital Signs: Reviewed Nurse's notes, vital signs stable. GENERAL : Pleasant and cooperative, in no acute distress, but appears to be in pain, well-developed, well-nourished. NEURO: Alert and oriented to person place and time. Normal sensation to light and sharp touch. MUSCULOSKELETAL: There is no deformity of the left wrist. There is tenderness and edema over entire left hand and wrist, with ecchymosis tracking up the forearm. Most tenderness over the metacarpal and carpal bones. No tenderness to palpation of the fingers. There is positive snuff box tenderness. Range of motion is limited due to pain and swelling. There is no tenderness of the elbow or shoulder. Hand Rounder strength unable to be assessed as patient cannot make a fist due to swelling in her fingers. Radial pulse 2+. SKIN: Normal and intact. The hand is warm and well perfused with capillary refill less than 2 seconds. IMAGING: L WRIST W/NAVICULAR MIN 3 VIEWS, L HAND MIN 3 VIEWS ROUTINE HISTORY: 62 years-old Female FALL, PAIN, SWELLING, EVAL FX, DISLOCATION acute left hand and wrist pain and swelling COMPARISON: None available TECHNIQUE: 4 views of the left hand with 5 views of the left wrist and scaphoid FINDINGS: WRIST: Bones are mildly demineralized. 3 mm negative ulnar variance with mild radiocarpal and triscaphe with mild to moderate first carpometacarpal osteoarthritis. Mild soft tissue swelling about the wrist without acute fracture or dislocation identified. No opaque foreign body. HAND: Bones are mildly demineralized. There are acute mildly comminuted fracture is noted involving the distal metaphyseal portions of the second, third and fourth metacarpals with mild apex radial angulation of the fractures. No significant displacement. Moderate soft tissue swelling. No additional acute fracture, dislocation or opaque foreign body. Mild interphalangeal osteoarthritis throughout. IMPRESSION: Acute mildly comminuted and mildly angulated fractures of the distal metaphyseal second, third and fourth metacarpals with soft tissue swelling. EMERGENCY DEPARTMENT COURSE: I examined the patient. Differential diagnosis includes contusion, sprain/strain, fracture, dislocation, among others. Patient was given PO Barnet for pain. X-ray of the left hand and wrist was reviewed by myself and radiologist and showed acute fractures of the 2nd, 3rd, and 4th distal metacarpals. A volar Orthoglass splint was placed under my direction and the position was satisfactory. Neurovascular status rechecked and intact. Patient was educated regarding splint care, pain management, orthopedic surgery follow-up, and return precautions, she verbalized understanding. The patient was discharged home with a family member in stable condition and ambulatory. Problem List Medical Problems: (1) Alcohol Abuse-Unspec Status: Chronic (2) Altered mental status Status: Resolved (3) Anemia, iron deficiency Status: Chronic (4) Depressive Disorder Nec Status: Chronic (5) Diab Marita Wo Comp Type Ii,Or Nos/Uncontrolled Status: Chronic (6) Drug overdose Status: Resolved (7) Hyperlipidemia Nec/Nos Status: Chronic (8) Hypertension Nos Status: Chronic (9) Hypothyroidism Status: Chronic (10) Small bowel obstruction Status: Resolved (11) Tobacco Use Disorder Status: Chronic Surgical Problems: (1) Status post appendectomy Status: Chronic (2) Status post cholecystectomy Status: Chronic (3) Status post gastric bypass for obesity Status: Chronic (4) Status post hysterectomy Status: Chronic Current/Historical Medications Scheduled Cyanocobalamin (Vitamin B-12), 1 TAB PO DAILY Duloxetine HCl (Duloxetine HCl), 20 MG PO BID Folic Acid (Folvite), 1 MG PO DAILY Ibuprofen (Advil), 400 MG PO PRN UD Misoprostol (Cytotec), 100 MG PO QID Nortriptyline (Pamelor), 25 MG PO HS Ondansetron (Ondansetron HCl), 4 MG PO PRN UD Pantoprazole (Protonix), 40 MG PO BID Venlafaxine Hcl (Venlafaxine Extended Rel), 37.5 MG PO DAILY Scheduled PRN Hydrocodone/Acetaminophen 5MG/325MG (Barnet 5MG/325MG), 1 TABLET PO Q6H PRN for Pain Allergies Coded Allergies: Sulfa Antibiotics (Verified Allergy, Severe, FACE/THROAT SWELL UP, 03/16/18 ) Vital Signs Date Time Temp Pulse Resp B/P (MAP) Pulse Ox O2 Delivery O2 Flow Rate FiO2 03/16/18 20:25 36.6 88 16 132/83 98 03/16/18 19:17 36.6 88 16 132/83 98 Room Air Medications Administered Medications (Trade) Dose Ordered Sig/Aaron Route Start Time Stop Time Status Last Admin Dose Admin Acetaminophen/ Hydrocodone Bitart (Barnet 5/325 Tab) 1 tab NOW STAT PO 03/16/18 19:25 03/16/18 19:27 DC 03/16/18 19:30 1 TAB Acetaminophen/ Hydrocodone Bitart (Barnet 5/325mg Home Pack) 1 homepack UD ONCE PO 03/16/18 20:15 03/16/18 20:16 DC 03/16/18 20:19 1 HOMEPACK Departure Information Impression Primary Impression: Fracture of metacarpal, multiple sites, left hand, closed Dispostion Home / Self-Care Condition GOOD Prescriptions Hydrocodone/Acetaminophen 5MG/325MG (Barnet 5MG/325MG) Tab 1 TABLET PO Q6H Y for Pain, #20 TAB For Initial Treatment Prov: Shirley Smith, FISCAL MANAGER 03/16/18 Referrals Nolan Royal M.D.([facility]) (PCP) [facility] Patient Instructions ED Fx Hand Closed, My [facility] Additional Instructions DISCHARGE INSTRUCTIONS & TREATMENT: You have been evaluated and treated in the emergency department today for your left hand and wrist injury. X-rays today have shown fractures of the second, third, and fourth metacarpal bones that make up your left hand. Wear the wrist splint at all times to support your fractures. The splint cannot get wet. Apply ice and keep the hand elevated to help reduce swelling. You have been prescribed Barnet for the pain, 1 tablet every 4-6 hours as needed for SEVERE pain. This is a narcotic, do not drive, operate machinery, or drink alcohol while you are taking this medication. You may continue to take ibuprofen 600mg every 6-8 hours as needed for pain. Do not take more than 2400mg in 24 hours. You have been provided with follow-up information for [facility], please call on Sunday to make an appointment to follow-up in the next 4-5 days. Please return to the emergency department for severe pain that is not manageable with pain medication, or for new numbness in the hand or fingers. Problem Qualifiers Primary Impression: Fracture of metacarpal, multiple sites, left hand, closed Encounter type: initial encounter Qualified Codes: S62.309A - Unspecified fracture of unspecified metacarpal bone, initial encounter for closed fracture
[2018-03-16] MEDS ORDERED: IBUP-1050 PO (19:45)
--- NOTE | 2018-03-16 19:55 | DIAGNOSTIC IMAGING REPORT ---
L WRIST W/NAVICULAR MIN 3 VIEWS, L HAND MIN 3 VIEWS ROUTINE HISTORY: 62 years-old Female FALL, PAIN, SWELLING, EVAL FX, DISLOCATION acute left hand and wrist pain and swelling COMPARISON: None available TECHNIQUE: 4 views of the left hand with 5 views of the left wrist and scaphoid FINDINGS: WRIST: Bones are mildly demineralized. 3 mm negative ulnar variance with mild radiocarpal and triscaphe with mild to moderate first carpometacarpal osteoarthritis. Mild soft tissue swelling about the wrist without acute fracture or dislocation identified. No opaque foreign body. HAND: Bones are mildly demineralized. There are acute mildly comminuted fracture is noted involving the distal metaphyseal portions of the second, third and fourth metacarpals with mild apex radial angulation of the fractures. No significant displacement. Moderate soft tissue swelling. No additional acute fracture, dislocation or opaque foreign body. Mild interphalangeal osteoarthritis throughout. IMPRESSION: Acute mildly comminuted and mildly angulated fractures of the distal metaphyseal second, third and fourth metacarpals with soft tissue swelling. The above report was generated using voice recognition software. It may contain grammatical, syntax or spelling errors. Electronically signed by: Mitchell Nina M.D. 03/16/2018 7:54 PM Dictated Date/Time: 03/16/2018 7:49 PM
[2018-03-16] MEDS ORDERED: NORCO 5/325MG HOME PACK PO ONE (20:15)
[2018-03-16] MEDS ORDERED: HYDR-5688 PO (20:17)
[2018-03-16 20:25] VITALS: BP 132/83; PULSE 88; TEMP 36.6; O2SAT 98
== END 2018-03-16 20:26 | disposition home or self-care (01) ==
LOC: C.EDB 19:15 → C.EDD 20:26
DX: S62.341A Nondisplaced fracture of base of second metacarpal bone, left hand, initial encounter for closed fracture (principal); S62.343A Nondisplaced fracture of base of third metacarpal bone, left hand, initial encounter for closed fracture; S62.345A Nondisplaced fracture of base of fourth metacarpal bone, left hand, initial encounter for closed fracture; W01.0XXA Fall on same level from slipping, tripping and stumbling without subsequent striking against object, initial encounter; Y92.000 Kitchen of unspecified non-institutional (private) residence as the place of occurrence of the external cause; Z87.891 Personal history of nicotine dependence; F10.10 Alcohol abuse, uncomplicated; D50.9 Iron deficiency anemia, unspecified; F32.9 Major depressive disorder, single episode, unspecified; E11.9 Type 2 diabetes mellitus without complications; E78.5 Hyperlipidemia, unspecified; I10 Essential (primary) hypertension; E03.9 Hypothyroidism, unspecified; F17.200 Nicotine dependence, unspecified, uncomplicated; Z79.899 Other long term (current) drug therapy; Z88.2 Allergy status to sulfonamides

== ENCOUNTER 2019-08-17 17:58 | Inpatient (IN) ==
[2019-08-17] MEDS ORDERED: DAPTOmycin 350 MG in SYRINGE 0 ML IV ONE (18:17)
[2019-08-17] MEDS ORDERED: PIPERACILL/TAZOBAC CONSULT ACTIVE PRN (18:17)
[2019-08-17] MEDS ORDERED: PIPERACILLIN/TAZOBACTAM 4.5 GM/120 ML BAG IV ONE (18:17)
[2019-08-17] MEDS ORDERED: ONDANSETRON INJ 2 MG/ML 2 ML VIAL IV STA (18:17)
[2019-08-17 18:42] LABS: Basophils # (auto) 0.03 K/uL (0-0.2); Basophils % (auto) 0.7 %; Eosinophils # (auto) 0.03 K/uL (0-0.5); Eosinophils % (auto) 0.7 %; Hematocrit (blood only) 33.6 % (37-47); Hemoglobin 11.3 g/dL (12.0-16.0); Lymphocytes # (auto) 1.25 K/uL (1.2-3.4); Lymphocytes % (auto) 28.4 %; Mean Corpuscular Hemoglobin 29.7 pg (25-34); Mean Corpuscular Hgb Conc 33.6 g/dL (32-36); Mean Corpuscular Volume 88.4 fL (80-100); Mean Platelet Volume 8.1 fL (7.4-10.4); Monocytes # (auto) 0.31 K/uL (0.11-0.59); Neutrophils # (auto) 2.78 K/uL (1.4-6.5); Neutrophils % (auto) 63.2 %; Platelet Count 242 K/uL (130-400); RDW Coefficient of Variation 17.4 % (11.5-14.5); RDW Standard Deviation 56.5 fL (36.4-46.3)
[2019-08-17] MEDS ORDERED: IOVERSOL 100ml IV PRN (18:54)
[2019-08-17 18:55] LABS: Partial Thromboplastin Ratio 0.9; Partial Thromboplastin Time 23.4 Seconds (21.0-31.0); Prothrombin Time 10.4 Seconds (9.0-12.0)
[2019-08-17] MEDS: HYDROmorphone INJ 0.5 MG/0.5 ML SYR IV PRN ×2 (19:00→19:49)
[2019-08-17 19:04] LABS: Albumin Level 2.4 gm/dl (3.4-5.0); BUN Creatinine Ratio 6.1 (10-20); Calcium 7.8 mg/dl (8.5-10.1); Est GFR (African American) 74.4; Est GFR (Non-African American) 64.2; Potassium 2.7 mmol/L (3.5-5.1)
[2019-08-17 19:07] LABS: Albumin Globulin Ratio 0.7 (0.9-2); Bilirubin,Total 0.3 mg/dl (0.2-1); Globulin 3.3 gm/dl (2.5-4.0); Total Protein 5.7 gm/dl (6.4-8.2)
--- NOTE | 2019-08-17 19:09 | CT Scan Report ---
CT abd pelvis IV con only CLINICAL HISTORY: Generalized abdominal pain COMPARISON STUDY: 02/26/2018 TECHNIQUE: The patient was scanned in a dynamic helical fashion during intravenous administration of 92 cc of Optiray 3. A dose lowering technique was utilized adhering to the principles of ALARA. CT DOSE: 344.23 mGycm FINDINGS: Lower chest: There is a stable 7 mm left lower lobe pulmonary nodule. Also evident is a 3 mm left low er lobe pulmonary nodule, not included on the preceding study. There is mild dependent atelectasis. Liver: There is hepatic steatosis with a more focal hypodense area involving the medial aspect of the left lobe, likely representing focal fat. The liver is enlarged measuring 23 cm. Gallbladder: Surgically absent. The common bile duct measures 7 mm Spleen: Normal in size and attenuation. Pancreas: Unremarkable. Adrenal glands: There is minor left adrenal gland thickening similar to the preceding study Kidneys: There is symmetric renal cortical enhancement. The kidneys are normal in size without hydron ephrosis. Bowel: There is a hiatal hernia. There is a gastric bypass with a Reno-en-Y anastomosis. There are no transition zones indicate bowel obstruction. There is no evidence of acute diverticulitis. There are no findings to indicate acute appendicitis. The appendix is not visualized with certainty. Peritoneum: There is no intraperitoneal free air or abdominal ascites. There is a stable eggshell laurence cified nodule within the lower left anterior pelvis. This remains unchanged and is not felt to be of acute clinical significance Vasculature: The abdominal aorta is normal in course and caliber. Adenopathy: None. Pelvic viscera: The uterus appears surgically absent Skeletal structures: There is an old right-sided rib fracture. No destructive lesions are visualized IMPRESSION: 1. Postsurgical changes of a gastric bypass and Reno-en-Y anastomosis 2. No evidence of bowel obstruction. No evidence of free air 3. No evidence of diverticulitis. No evidence of acute appendicitis 4. Hiatal hernia 5. Hepatic steatosis and hepatomegaly Electronically signed by: Jevon Fitzpatrick M.D. 08/17/2019 7:07 PM
[2019-08-17] MEDS ORDERED: POTASSIUM CHLORIDE 20 MEQ TABCR PO STA (19:15)
[2019-08-17] MEDS ORDERED: METOCLOPRAMIDE HCL INJ 5 MG/ML 2 ML VIAL IV STA (19:16)
[2019-08-17] MEDS ORDERED: FAMOTIDINE 20 MG TAB PO ONE (19:18)
[2019-08-17] MEDS ORDERED: SUCRALFATE 1 GM TAB PO STA (19:18)
[2019-08-17] MEDS ORDERED: GI COCKTAIL ED USE PO ONE (19:18)
[2019-08-17] MEDS: POTASSIUM CHLORIDE / WTR 10 MEQ/100 ML PLCT IV SCH ×2 (19:45→22:12)
--- NOTE | 2019-08-17 20:01 | XRay Report ---
XR chest 1V portable CLINICAL HISTORY: Sepsis COMPARISON STUDY: 10/24/2018 FINDINGS: The cardiac and mediastinal contours are normal. There is no evidence of focal pulmonary co nsolidation. There is no evidence of failure. No pleural effusions are visualized.[Old right-sided ri b fractures are visualized. There is evidence for chronic calcific tendinitis involving the left shou lder IMPRESSION: No active disease in the chest. Electronically signed by: Jevon Fitzpatrick M.D. 08/17/2019 8:00 PM
[2019-08-17 20:06] LABS: Magnesium 1.9 mg/dl (1.8-2.4)
--- NOTE | 2019-08-17 20:22 | History & Physical Report ---
Date of Service August 17, 2019 Assessment & Plan (1) Bacteremia: Secondary to abscess, L chest wall No sepsis for now Hypokalemia secondary to emesis, poor p.o. intake Recurrent syncope Differentials include : Orthostasis, arrhythmia, structural cardiac pathology, brain tumor given headache complaints, seizures hypertension, slightly elevated DM2 diet-controlled, well-controlled as of recent outpatient hemoglobin A1c of 6.11 February 2018 hx bariatric surgery hx PUD Past alcohol abuse/tobacco abuse; off alcohol for years, patient admits to just one time drink before coming in today due to frustration with health issues mood disorder, at baseline chronic anemia, hemoglobin at baseline Medical telemetry Repeat blood cultures IV Daptomycin, ID consult for bacteremia Surgery consult RE left chest wall abscess Replace potassium Syncope work-up : orthostatic vitals, EKG, TTE, EEG, Brain MRI DVT prophylaxis SCDs for now; Lovenox subcu if no brain tumor on brain MRI Full code History of Present Illness Chief Complaint: Abnormal blood work Primary Care Provider: Jelly Quintanilla, History obtained from patient and records. Medical history significant for hypertension, hyperlipidemia DM2 diet- controlled, hx bariatric surgery, hx PUD, Past alcohol abuse/tobacco abuse, mood disorder, chronic MEHRAN ( baseline hemoglobin 11). Recent confinement February 2018 for epigastric discomfort. No significant findings on EGD. Few months history of poor appetite, generalized achy abdominal pain, nausea and emesis. Significant weight loss as per patient. Patient gives history of recurrent passing out episodes lasting a few minutes, almost every day since June 2019-usually while standing up, witnessed by some family members, she would be disoriented and be doing a small 'dance' after, no tongue biting/incontinence, persistent achy headache symptoms. Patient denies unusual chest pain, S OB. 1 week history of painful bump between left breast and armpit. A few days later, lesion broke open yielding white drainage. No fever, no chills. Patient self-medicating with topical Neosporin. Patient seen at the ER yesterday. Blood cultures obtained. Doxycycline prescribed for abscess. Blood cultures subsequently grew gram-positive cocci in clusters. Patient requested to come back to the ER. Patient given IV Daptomycin and Zosyn at the ER. Medical History as above 2017 mammogram was normal. Surgical History : TERRY-BSO, cholecystectomy, appendectomy, knee surgery, cholecystectomy, gastric bypass Family History : Breast cancer, diabetes, heart disease, COPD Personal/Social history : Past tobacco/alcohol abuse, disabled Allergies Allergy/AdvReac Type Severity Reaction Status Date / Time Sulfa (Sulfonamide Allergy Severe FACE/THROAT Verified 08/17/19 19:29 Antibiotics) SWELL UP Home Medications Home Medications Medication Instructions Recorded Confirmed Type nortriptyline 25 mg PO HS 10/24/18 08/17/19 History cyanocobalamin (vitamin B-12) 500 mcg PO DAILY 08/16/19 08/17/19 History [Vitamin B-12] doxycycline hyclate 100 mg PO BID 10 Days #20 tab 08/16/19 08/17/19 Rx duloxetine [Cymbalta] 30 mg PO BID 08/16/19 08/17/19 History esomeprazole magnesium [Nexium] 40 mg PO DAILY 08/16/19 08/17/19 History folic acid 1 mg PO DAILY 08/16/19 08/17/19 History gabapentin 300 mg PO TID 08/16/19 08/17/19 History misoprostol [Cytotec] 100 mcg PO QID 08/16/19 08/17/19 History ondansetron HCl 4 mg PO Q8 PRN 08/16/19 08/17/19 History sucralfate [Carafate] 1 g PO ACHS 08/16/19 08/17/19 History Past Med/Surg History Medical History Anemia, iron deficiency (Chronic) Small bowel obstruction (Resolved) Ulcer GI Surgical History Status post gastric bypass for obesity (Chronic) Status post cholecystectomy (Chronic) Status post hysterectomy (Chronic) Status post appendectomy (Chronic) History of incision and drainage (08/18/19) Left Axillary Abscess Incision and Drainage Dr. 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 Beliefs That Will Affect Care: None Current Living Situation: Alone Other Information That Helps Us Care for You: No Feels Safe at Home: Yes Safety Concerns: Feels Safe At This Time Smoking Status: Former smoker Tobacco Type: cigarettes ; Do You Dip or Chew Tobacco: No ; Second Hand Exposure: Yes ; Hx Alcohol Use: Yes Alcohol type: hard liquor Hx Substance Use: No Review of Systems Review of Systems: As per HPI, all 10 systems reviewed, all other ROS negative Physical Exam Physical Exam: GENERAL: Comfortable, slightly anxious, no respiratory distress SKIN: Pallor, warm HEENT: Pale palpebral conjunctivae, no ptosis, dry buccal mucosa NECK : Supple, no tenderness CHEST : oblong shaped indurated mass left upper outer chest/left axillary area with a necrotic surface with note of white-yellow granular drainage, mildly tender; decreased breath sounds, no tenderness HEART : RRR, no obvious murmurs ABDOMEN: Some distention, nontender EXTREMITIES : No LE swelling/tenderness, no other conspicuous deformities noted NEUROLOGIC : Coherent, no facial asymmetry, no other gross focality Results & Data Vital Signs (Past 12 Hours) Vital Signs Temp Pulse Pulse Resp BP Pulse Ox 08/17/19 19:08 79 99 08/17/19 18:20 97 08/17/19 18:07 37.0 C 82 18 148/90 H 99 Laboratory Results Laboratory Results WBC 4.40 K/uL (4.8-10.8) L 08/17/19 18:26 RBC 3.80 M/uL (4.2-5.4) L 08/17/19 18:26 Hgb 11.3 g/dL (12.0-16.0) L 08/17/19 18:26 Hct 33.6 % (37-47) L 08/17/19 18:26 MCV 88.4 fL (80-100) 08/17/19 18:26 MCH 29.7 pg (25-34) 08/17/19 18:26 MCHC 33.6 g/dL (32-36) 08/17/19 18:26 RDW Std Deviation 56.5 fL (36.4-46.3) H 08/17/19 18:26 RDW Coeff of Taye 17.4 % (11.5-14.5) H 08/17/19 18:26 Plt Count 242 K/uL (130-400) 08/17/19 18:26 MPV 8.1 fL (7.4-10.4) 08/17/19 18:26 Immature Gran % (Auto) 0.0 % 08/17/19 18:26 Neut % (Auto) 63.2 % 08/17/19 18:26 Lymph % (Auto) 28.4 % 08/17/19 18:26 Mills % (Auto) 7.0 % 08/17/19 18:26 Eos % (Auto) 0.7 % 08/17/19 18:26 Baso % (Auto) 0.7 % 08/17/19 18: Immature Gran # (Auto) 0.00 K/uL (0.00-0.02) 08/17/19 18: Neut # (Auto) 2.78 K/uL (1.4-6.5) 08/17/19 18: Lymph # (Auto) 1.25 K/uL (1.2-3.4) 08/17/19 18: Mills # (Auto) 0.31 K/uL (0.11-0.59) 08/17/19 18: Eos # (Auto) 0.03 K/uL (0-0.5) 08/17/19 18: Baso # (Auto) 0.03 K/uL (0-0.2) 08/17/19 18: PT 10.4 Seconds (9.0-12.0) 08/17/19 18: INR 1.0 (0.9-1.1) 08/17/19 18: APTT 23.4 Seconds (21.0-31.0) 08/17/19 18: PTT Ratio 0.9 08/17/19 18: Sodium 140 mmol/L (136-145) 08/17/19 18: Potassium 2.7 mmol/L (3.5-5.1) L 08/17/19 18: Chloride 103 mmol/L (98-107) 08/17/19 18: Carbon Dioxide 25 mmol/L (21-32) 08/17/19 18: Anion Gap 12.0 (3-11) H 08/17/19 18:26 BUN 6 mg/dl (7-18) L D 08/17/19 18: Creatinine 0.95 mg/dl (0.6-1.2) D 08/17/19 18:26 Est Cr Clr Drug Dosing 53.0 ml/min 08/17/19 18:26 Est GFR ( Amer) 74.4 08/17/19 18:26 Est GFR (Non-Af Amer) 64.2 08/17/19 18:26 BUN/Creatinine Ratio 6.1 (10-20) L 08/17/19 18:26 Glucose 148 mg/dl (70-99) H 08/17/19 18:26 Lactate 4.6 mmol/L (0.4-2.0) H* 08/17/19 19:37 Calcium 7.8 mg/dl (8.5-10.1) L 08/17/19 18:26 Magnesium 1.9 mg/dl (1.8-2.4) 08/17/19 18:26 Magnesium Cancelled 08/17/19 18:26 Total Bilirubin 0.3 mg/dl (0.2-1) 08/17/19 18:26 AST 70 U/L (15-37) H 08/17/19 18:26 ALT 62 U/L (12-78) 08/17/19 18:26 Alkaline Phosphatase 187 U/L (45-117) H 08/17/19 18:26 Total Creatine Kinase 63 U/L (26-192) 08/17/19 18:26 Total Creatine Kinase Cancelled 08/17/19 18:26 Total Protein 5.7 gm/dl (6.4-8.2) L 08/17/19 18:26 Albumin 2.4 gm/dl (3.4-5.0) L 08/17/19 18:26 Globulin 3.3 gm/dl (2.5-4.0) 08/17/19 18:26 Albumin/Globulin Ratio 0.7 (0.9-2) L 08/17/19 18:26 Lipase 158 U/L (73-393) 08/17/19 18:26 Lipase Cancelled 08/17/19 18:26 TSH Cancelled 08/17/19 18:26 Ethyl Alcohol mg/dL 148.0 mg/dl (0-3) H 08/17/19 18:[address] abdomen pelvis: 1. Postsurgical changes of a gastric bypass and Reno-en-Y anastomosis 2. No evidence of bowel obstruction. No evidence of free air 3. No evidence of diverticulitis. No evidence of acute appendicitis 4. Hiatal hernia 5. Hepatic steatosis and hepatomegaly Chest x-ray : No active disease
[2019-08-17 20:38] LABS: Thyroid Stimulating Hormone 7.46 uIu/ml (0.300-4.500)
[2019-08-17] MEDS ORDERED: OXYCODONE HCL IR 5 MG TAB (IMMEDIATE RELEASE) PO PRN (22:05)
[2019-08-17] MEDS ORDERED: GLUCOSE 10 TABS/TUBE PO PRN (22:05)
[2019-08-17] MEDS ORDERED: SODIUM CHLORIDE 0.9% 1000ML 1,000 ML IV ONE (22:05)
[2019-08-17] MEDS ORDERED: ACETAMINOPHEN 325 MG TAB PO PRN (22:05)
[2019-08-17] MEDS ORDERED: GLUCAGON FOR INJ 1 MG VIAL SQ PRN (22:05)
[2019-08-17] MEDS ORDERED: LORazepam 0.25 MG/0.5 ML VIAL IV PRN (22:05)
[2019-08-17] MEDS ORDERED: DEXTROSE 50% 50 ML SYRINGE IV PRN (22:05)
[2019-08-17] MEDS ORDERED: CARBOHYDRATES FOR HYPOGLYCEMIA PO PRN (22:05)
[2019-08-17] MEDS ORDERED: PROMETHAZINE HCL 12.5 MG in SODIUM CHLORIDE 0.9% 50 ML IV PRN (22:05)
[2019-08-17] MEDS ORDERED: GLUCOSE 40% GEL 15 GM TUBE PO PRN (22:05)
[2019-08-17] MEDS ORDERED: MoRPHine SULFATE 2 MG/ML CARP IV PRN (22:05)
[2019-08-17] MEDS ORDERED: POTASSIUM CHLORIDE 40 MEQ in SODIUM CHLORIDE 0.9% 1000ML 1,000 ML IV STA (22:05)
[2019-08-17] MEDS ORDERED: THIAMINE HCL 100 MG in SYRINGE 9 ML IV STA (22:16)
[2019-08-17] MEDS ORDERED: LACTATED RINGER'S 1,000 ML IV ONE (23:00)
[2019-08-17] MEDS ORDERED: POTASSIUM CHLORIDE 20 MEQ TABCR PO ONE (23:00)
[2019-08-17 23:14] LABS: Appearance Urine Clear (Clear); Bilirubin Urine Negative (Negative); Blood Urine Negative (Negative); Color Urine Yellow; Glucose Urine UA 1+ (Negative); Ketones Urine Negative (Negative); Leukocyte Esterase Urine Negative (Negative); Nitrite Urine Negative (Negative); Protein Urine Negative (Negative); Specific Gravity Urine 1.034 (1.000-1.030); Urobilinogen Urine Negative (Negative)
[2019-08-17 23:41] LABS: Amphetamines+Metham, Urine Neg (Neg); Barbiturates, Urine Neg (Neg); Benzodiazepine, Urine Neg (Neg); Cocaine, Urine Neg (Neg); MDMA (Ecstacy), Urine Neg (Neg); Methadone, Urine Neg (Neg); Opiate, Urine Neg (Neg); Phencyclidine, Urine Neg (Neg)
[2019-08-17] MEDS: SUCRALFATE 1 GM TAB PO SCH (23:41)
[2019-08-17] MEDS: GABAPENTIN 300 MG CAP PO SCH (23:41)
[2019-08-17] MEDS: DULOXETINE HCL 30 MG CAP PO SCH (23:41)
[2019-08-17] MEDS ORDERED: DAPTOMYCIN CONSULT ACTIVE PRN (23:42)
[2019-08-17] MEDS ORDERED: INSULIN GLARGINE SOLOSTAR 100 UNITS/ML 3 ML PEN SQ SCH (23:45)
[2019-08-18] MEDS: INSULIN ASPART 100 UNITS/ML 3 ML PEN SC SCH ×5 (00:14→21:25)
[2019-08-18] MEDS: NORTRIPTYLINE HCL 25 MG CAP PO SCH ×2 (00:17→20:55)
[2019-08-18] MEDS ORDERED: GADOBUTROL 65ML VIAL IV PRN (03:10)
[2019-08-18] MEDS: NORMOSOL-R 1,000 ML IV SCH ×2 (03:38→20:33)
[2019-08-18 04:06] LABS: Basophils # (auto) 0.04 K/uL (0-0.2); Basophils % (auto) 0.9 %; Eosinophils # (auto) 0.04 K/uL (0-0.5); Eosinophils % (auto) 0.9 %; Hematocrit (blood only) 30.7 % (37-47); Immature Granulocytes # (auto) 0.01 K/uL (0.00-0.02); Immature Granulocytes % (auto) 0.2 %; Lymphocytes # (auto) 1.09 K/uL (1.2-3.4); Lymphocytes % (auto) 24.4 %; Mean Corpuscular Hemoglobin 29.5 pg (25-34); Mean Corpuscular Hgb Conc 32.6 g/dL (32-36); Mean Corpuscular Volume 90.6 fL (80-100); Mean Platelet Volume 8.1 fL (7.4-10.4); Monocytes # (auto) 0.32 K/uL (0.11-0.59); Monocytes % (auto) 7.2 %; Neutrophils # (auto) 2.96 K/uL (1.4-6.5); Neutrophils % (auto) 66.4 %; Platelet Count 170 K/uL (130-400); RDW Coefficient of Variation 17.6 % (11.5-14.5); RDW Standard Deviation 57.9 fL (36.4-46.3); Red Blood Count 3.39 M/uL (4.2-5.4); White Blood Count 4.46 K/uL (4.8-10.8)
[2019-08-18 04:35] LABS: BUN Creatinine Ratio 4.9 (10-20); Calcium 7.3 mg/dl (8.5-10.1); Creatinine Clr Calc Pharmacy 58.6 ml/min; Est GFR (African American) 83.9; Est GFR (Non-African American) 72.4; Potassium 3.9 mmol/L (3.5-5.1)
[2019-08-18] MEDS ORDERED: NORMOSOL-R 1,000 ML IV ONE (05:02)
--- NOTE | 2019-08-18 07:01 | Magnetic Resonance Report ---
MR brain wo/w con CLINICAL HISTORY: headache COMPARISON STUDY: No previous studies for comparison. TECHNIQUE: Utilizing a 1.5 Tawanna magnet and dedicated coil, multiplanar, multiecho imaging of the br ain was performed pre and postcontrast administration. IV administration of 5.7 mL of Gadavist contr ast was uneventful. FINDINGS: Diffusion images show no evidence for an acute ischemic event. Considerable number of foci of increased signal within the periventricular deep white matter regions throughout both cerebral hem ispheres. No evidence for abnormal postcontrast enhancement. IMPRESSION: 1. No evidence for an acute intracranial abnormality. 2. Multiple foci of increased signal throughout both cerebral hemispheres suggesting either advanced chronic small vessel change versus a demyelinating disorder,. 3. No evidence for abnormal postcontrast enhancement. The above report was generated using voice recognition software. It may contain grammatical, syntax or spelling errors. Electronically signed by: Konrad Issa M.D. 08/18/2019 7:00 AM
[2019-08-18] MEDS: DULOXETINE HCL 30 MG CAP PO SCH ×2 (09:09→20:55)
[2019-08-18] MEDS: GABAPENTIN 300 MG CAP PO SCH ×3 (09:09→20:55)
[2019-08-18] MEDS: CYANOCOBALAMIN 500 MCG TABLET (VITAMIN B-12) PO SCH (09:09)
[2019-08-18] MEDS: PANTOprazole 40 MG TAB PO SCH (09:10)
[2019-08-18] MEDS: SUCRALFATE 1 GM TAB PO SCH ×4 (09:10→20:55)
[2019-08-18] MEDS: FOLIC ACID 1 MG TAB PO SCH (09:10)
[2019-08-18] MEDS: THIAMINE HCL 100 MG TAB PO SCH (09:13)
--- NOTE | 2019-08-18 09:14 | Surgery Consultation ---
Date of Consultation August 18, 2019 Assessment & Plan (1) Abscess: This is a 63y F who presents with a left axillary abscess. Wound cultures growing MRSA and blood cultures growing staph. She is currently on IV Daptomycin and infectious disease has been consulted. I have discussed this case with my attending and we will plan to take her to the OR to clean out abscess. Will make NPO and continue IV abx. Dr Perdue- I examined pt in her room- Lt axilla shows abscess with necrotic skin and subcutaneous tissue purulent drainage blood cult ++ MRSA will need incision/ drainage/ debridement in OR and wound vac at some point History of Present Illness Attending Physician: Kari Hayes, History of Present Illness This is a 63y F with a PMH of gastric bypass c/b GI ulcer, cholecystectomy, appendectomy, and hysterectomy who presented to the [facility] [place] ED on 08/16/19 with a 1 week history of a draining wound under her left armpit. Patient states that she noticed a bump about 1 week ago and as of a couple days ago it started draining pus. The lump has been painful and she endorses chills associated with this. She denies fevers, knicking herself with a razor, or any bug bites. She was using Neosporin on it at home. In the ED they took blood and wound culture and sent her home on oral abx. When results came back + she was asked to return to the hospital for IV abx and further treatment. In addition to this she has been dealing with a GI ulcer that causes her to vomit multiple times a week pending what she eats as well as intermittent syncope since June of which she is being worked up for by medicine here. General surgery was consulted for evaluation of abscess. WBC today is 4.4 and patient is afebrile. Allergies Allergy/AdvReac Type Severity Reaction Status Date / Time Sulfa (Sulfonamide Allergy Severe FACE/THROAT Verified 08/17/19 19:29 Antibiotics) SWELL UP Home Medications Home Medications Medication Instructions Recorded Confirmed Type nortriptyline 25 mg PO HS 10/24/18 08/17/19 History cyanocobalamin (vitamin B-12) 500 mcg PO DAILY 08/16/19 08/17/19 History [Vitamin B-12] doxycycline hyclate 100 mg PO BID 10 Days #20 tab 08/16/19 08/17/19 Rx duloxetine [Cymbalta] 30 mg PO BID 08/16/19 08/17/19 History esomeprazole magnesium [Nexium] 40 mg PO DAILY 08/16/19 08/17/19 History folic acid 1 mg PO DAILY 08/16/19 08/17/19 History gabapentin 300 mg PO TID 08/16/19 08/17/19 History misoprostol [Cytotec] 100 mcg PO QID 08/16/19 08/17/19 History ondansetron HCl 4 mg PO Q8 PRN 08/16/19 08/17/19 History sucralfate [Carafate] 1 g PO ACHS 08/16/19 08/17/19 History Patient History Medical History Anemia, iron deficiency (Chronic) Small bowel obstruction (Resolved) Surgical History Status post gastric bypass for obesity (Chronic) Status post cholecystectomy (Chronic) Status post hysterectomy (Chronic) Status post appendectomy (Chronic) Family History Other No pertinent family history in first degree relatives Social History 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 Beliefs That Will Affect Care: None Current Living Situation: Alone Other Information That Helps Us Care for You: No Feels Safe at Home: Yes Safety Concerns: Feels Safe At This Time Smoking Status: Former smoker Tobacco Type: cigarettes ; Do You Dip or Chew Tobacco: No ; Second Hand Exposure: Yes ; Hx Alcohol Use: Yes Alcohol type: hard liquor Hx Substance Use: No Review of Systems Constitutional: + chills; no fever Gastrointestinal: + vomiting Integumentary: + wounds left underarm wound draining pus Physical Exam Physical Exam: alert/awake Constitutional: well developed and well nourished; no acute distress Respiratory: normal respiratory effort Cardiovascular: Rate/Rhythm: regular rate Skin: left axillary abscess, with central opening draining pus. Inferiorly there is a black eschar. There is some surrounding fluctuance Results & Data Vital Signs (Past 12 Hours) Vital Signs Temp Pulse Pulse Resp BP BP Pulse Ox 08/18/19 08:09 75 08/18/19 04:00 36.4 C L 20 96 08/17/19 22:56 86 08/17/19 22:36 36.7 C 71 18 150/76 H 97 08/17/19 21:42 75 20 144/74 H 93 08/17/19 21:30 72 13 144/74 H 93 PG Care Time/CCT Total # of Minutes Spent Total Time Spent with Patient: Total time spent is greater than 50% in coordination of care (as documented) at patient's floor/unit and/or counseling patient:
[2019-08-18] MEDS ORDERED: BACITRACIN INJ 50,000 UNIT VIAL ONE (10:17)
[2019-08-18] MEDS ORDERED: BUPIVACAINE 0.5 % 5 MG/1 ML MPF 30ML VIAL ONE (10:17)
[2019-08-18] MEDS ORDERED: MIDAZOLAM HCL 1 MG/ML 2ML VIAL ONE (10:19)
[2019-08-18] MEDS ORDERED: PROPOFOL IV EMULSION 10 MG/ML 20 ML VIAL IV ONE (10:20)
[2019-08-18] MEDS ORDERED: fentaNYL citrate 100 MCG/2 ML VIAL ONE (10:20)
[2019-08-18] MEDS ORDERED: LIDOCAINE HCL 2% 2 ML VIAL/AMP(20MG/ML) INFIL ONE (10:20)
--- NOTE | 2019-08-18 10:21 | Infectious Disease Consult ---
Date of Consultation August 18, 2019 Assessment & Plan (1) Gram positive sepsis: continue dapto, suspect MRSA bsi. will need echo. follow repeat cultures, follow OR findings. will follow. (2) Abscess: History of Present Illness Attending Physician: Kari Hayes, pt intially presented to ER on 08/16 with left axillary abscess, pain and spontaneous drainage at home. no trauma to area, had I&D in ER, cultures obtained, blood cultures as well. was d/c home on doxy. blood and wound culture +, wound culture CA-MRSA, blood cultures gpc. notified of + blood cultures and returned for admission, she is to go to OR later today for I&D. She is on Dapto and tolerating well. had chills overnight, denies fevers, afebrile. wbc 4.4, creat 0.8. UA negative UDS negative, alcohol level elevated. CXR and abd ct nega tive. 08/17 blood cultures pending. Allergies Allergy/AdvReac Type Severity Reaction Status Date / Time Sulfa (Sulfonamide Allergy Severe FACE/THROAT Verified 08/17/19 19:29 Antibiotics) SWELL UP Home Medications Home Medications Medication Instructions Recorded Confirmed Type nortriptyline 25 mg PO HS 10/24/18 08/17/19 History cyanocobalamin (vitamin B-12) 500 mcg PO DAILY 08/16/19 08/17/19 History [Vitamin B-12] doxycycline hyclate 100 mg PO BID 10 Days #20 tab 08/16/19 08/17/19 Rx duloxetine [Cymbalta] 30 mg PO BID 08/16/19 08/17/19 History esomeprazole magnesium [Nexium] 40 mg PO DAILY 08/16/19 08/17/19 History folic acid 1 mg PO DAILY 08/16/19 08/17/19 History gabapentin 300 mg PO TID 08/16/19 08/17/19 History misoprostol [Cytotec] 100 mcg PO QID 08/16/19 08/17/19 History ondansetron HCl 4 mg PO Q8 PRN 08/16/19 08/17/19 History sucralfate [Carafate] 1 g PO ACHS 08/16/19 08/17/19 History Patient History Medical History Anemia, iron deficiency (Chronic) Small bowel obstruction (Resolved) Surgical History Status post gastric bypass for obesity (Chronic) Status post cholecystectomy (Chronic) Status post hysterectomy (Chronic) Status post appendectomy (Chronic) Family History Other No pertinent family history in first degree relatives Social History 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 Beliefs That Will Affect Care: None Current Living Situation: Alone Other Information That Helps Us Care for You: No Feels Safe at Home: Yes Safety Concerns: Feels Safe At This Time Smoking Status: Former smoker Tobacco Type: cigarettes ; Do You Dip or Chew Tobacco: No ; Second Hand Exposure: Yes ; Hx Alcohol Use: Yes Alcohol type: hard liquor Hx Substance Use: No Review of Systems Review of Systems: All systems reviewed & are unremarkable except as noted in HPI & below Physical Exam Constitutional: WD/WN, vitals as above Eyes: PERRL, conjunctivae normal, anicteric sclerae ENMT: external ear and nose normal, oropharynx normal Neck: normal visual inspection Respiratory: normal respiratory effort, lungs clear to auscultation Cardiovascular: RRR, no murmur, no edema Gastrointestinal (Abdomen): normal bowel sounds, soft, nontender, no he patosplenomegaly Musculoskeletal: no cyanosis or clubbing, extremities motor strength 5/5 Skin: + wound (left axillary dressing c/d/i, tender) Psychiatric: A+Ox3, euthymic affect Results & Data Vital Signs (Past 12 Hours) Vital Signs Temp Pulse Pulse Resp BP Pulse Ox 08/18/19 09:48 36.8 C 76 18 158/83 H 98 08/18/19 08:09 75 08/18/19 04:00 36.4 C L 20 96 08/17/19 22:56 86 08/17/19 22:36 36.7 C 71 18 150/76 H 97 PG Care Time/CCT Total # of Minutes Spent Total Time Spent with Patient: Total time spent is greater than 50% in coordination of care (as documented) at patient's floor/unit and/or counseling patient:
--- NOTE | 2019-08-18 10:28 | Anesthesiology Consultation ---
Date of Service August 18, 2019 Assessment & Plan (1) Encounter for pre-operative examination: Chart Review Chart Review: Acceptable Risk for Surgery and Patient NOT seen in Pre Admission Testing Consults Requested none History Surgery Operation Date: 08/18/19 09:30 Proposed Procedures p Left Axillary Abscess Incision and Drainage - Rai Perdue MD, FACS Height/Weight Height: 5 ft 4 in Weight: 57.9 kg Allergies Allergy/AdvReac Type Severity Reaction Status Date / Time Sulfa (Sulfonamide Allergy Severe FACE/THROAT Verified 08/17/19 19:29 Antibiotics) SWELL UP Medications Home Medications Medication Instructions Recorded Confirmed Last Taken nortriptyline 25 mg PO HS 10/24/18 08/17/19 08/16/19 cyanocobalamin (vitamin B-12) 500 mcg PO DAILY 08/16/19 08/17/19 08/16/19 [Vitamin B-12] doxycycline hyclate 100 mg PO BID 10 Days #20 tab 08/16/19 08/17/19 08/16/19 duloxetine [Cymbalta] 30 mg PO BID 08/16/19 08/17/19 08/16/19 esomeprazole magnesium [Nexium] 40 mg PO DAILY 08/16/19 08/17/19 08/16/19 folic acid 1 mg PO DAILY 08/16/19 08/17/19 08/16/19 gabapentin 300 mg PO TID 08/16/19 08/17/19 08/16/19 misoprostol [Cytotec] 100 mcg PO QID 08/16/19 08/17/19 08/16/19 ondansetron HCl 4 mg PO Q8 PRN 08/16/19 08/17/19 08/17/19 sucralfate [Carafate] 1 g PO ACHS 08/16/19 08/17/19 08/16/19 Active Medications Generic Name Dose Route Start Last Admin Trade Name Freq PRN Reason Stop Dose Admin Acetaminophen 325 mg 08/17/19 22:05 08/18/19 00:19 Tylenol PO 09/16/19 22:04 325 mg Q6H PRN Administration Pain or Fever Cyanocobalamin 500 mcg 08/18/19 09:00 08/18/19 09:09 Vitamin B-12 PO 09/17/19 08:59 500 mcg DAILY BABAK Administration Duloxetine HCl 30 mg 08/17/19 22:05 08/18/19 09:09 Cymbalta PO 09/16/19 22:04 30 mg BID BABAK Administration Folic Acid 1 mg 08/18/19 09:00 08/18/19 09:10 Folvite PO 09/17/19 08:59 1 mg DAILY BABAK Administration Gabapentin 300 mg 08/17/19 22:05 08/18/19 09:09 Neurontin PO 09/16/19 22:04 300 mg TID BABAK Administration Gadobutrol 5.7 ml 08/18/19 03:10 08/18/19 02:52 Gadavist 65ml IV 08/22/19 03:09 5.7 ml ONCE PRN Administration Interaction Checking Lorazepam 0.25 mg in 0.5 mls @ 0.5 mls/min 08/17/19 22:05 08/18/19 01:44 Ativan IV 09/16/19 22:04 0.5 mls/min Q4H PRN Administration Anxiety Parenteral Electrolytes 1,000 mls @ 75 mls/hr 08/18/19 01:00 08/18/19 05:13 Normosol-R IV 08/18/19 18:21 75 mls/hr .[id number] BABAK Infusion Insulin Aspart 0 units 08/17/19 23:45 08/18/19 09:10 Novolog Flexpen SC 09/16/19 23:44 Not Given ACHS BABAK Nortriptyline HCl 25 mg 08/17/19 22:05 08/18/19 00:17 Pamelor PO 09/16/19 22:04 25 mg HS BABAK Administration Pantoprazole Sodium 40 mg 08/18/19 09:00 08/18/19 09:10 Protonix PO 09/17/19 08:59 40 mg DAILY BABAK Administration Sucralfate 1 gm 08/17/19 22:05 08/18/19 09:10 Carafate Tab PO 09/16/19 22:04 1 gm ACHS BABAK Administration Thiamine HCl 100 mg 08/18/19 09:00 08/18/19 09:13 Vitamin B-1 PO 09/17/19 08:59 100 mg QAM BABAK Administration NPO Date Last Intake of Fluids: 08/18/19 Time Last Intake of Fluids: 08:00 Last Intake of Fluids Comment: 120 ml clear liquid breakfast, took am meds at 0900-- reported to OR staff Date Last Intake of Solids: 08/17/19 Time Last Intake of Solids: 20:00 Past Medical History Medical History Anemia, iron deficiency (Chronic) Small bowel obstruction (Resolved) Ulcer GI Exercise / Class Metabolic Activity II 4-5 Yardwork/Stairs/Walk up hill Past Family History Family History Other No pertinent family history in first degree relatives Past Surgical History Surgical History Status post gastric bypass for obesity (Chronic) Status post cholecystectomy (Chronic) Status post hysterectomy (Chronic) Status post appendectomy (Chronic) Past Anesthesia History No Hx of Anesthesia Complications and No Family Hx of Anesthesia Complications History of PONV No Hx of PONV and No Hx of Motion Sickness Social History Smoking Status: Former smoker tobacco type: cigarettes Do You Dip or Chew Tobacco: No Hx Alcohol Use: Yes Alcohol type: hard liquor alcohol intake frequency: other Alcohol Intake Frequency Comment: 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 Hx Substance Use: No Physical Exam Vital Signs Last Vital Signs Temp 36.8 C 08/18/19 09:48 Pulse 76 08/18/19 09:48 Resp 18 08/18/19 09:48 BP 158/83 H 08/18/19 09:48 Pulse Ox 98 08/18/19 09:48 Testing Laboratory Results 08/18/19 03:51 08/18/19 03:51 PT 10.4 Seconds (9.0-12.0) 08/17/19 18:26 INR 1.0 (0.9-1.1) 08/17/19 18:26 APTT 23.4 Seconds (21.0-31.0) 08/17/19 18:26 Urine Color Yellow 08/17/19 22:53 Urine Appearance Clear (Clear) 08/17/19 22:53 Urine pH 8.0 (4.5-7.5) H 08/17/19 22:53 Ur Specific [place] 1.034 (1.000-1.030) H 08/17/19 22:53 Urine Protein Negative (Negative) 08/17/19 22:53 Urine Glucose (UA) 1+ (Negative) H 08/17/19 22:53 Urine Ketones Negative (Negative) 08/17/19 22:53 Urine Nitrite Negative (Negative) 08/17/19 22:53 Ur Leukocyte Esterase Negative (Negative) 08/17/19 22:53 08/18/19 08/17/19 07:28 23:38 POC Glucose 78 105 H Electrocardiogram Date: 10/24/18 Findings: + NSR @ (81) Normal sinus rhythm Left axis deviation Abnormal ECG When compared with ECG of 26-FEB-2018 13:06, No significant change was found Confirmed by BEAR MELÉNDEZ ([id number]) on 10/26/2018 6:17:30 AM
[2019-08-18] MEDS ORDERED: HYDROmorphone INJ 1 MG/ML SYRINGE IV PRN (10:31)
[2019-08-18] MEDS ORDERED: ePHEDrine sulfate 50 MG/ML AMP IV PRN (10:31)
[2019-08-18] MEDS ORDERED: ATROPINE SULFATE 0.1 MG/ML 10ML SYR IV PRN (10:31)
[2019-08-18] MEDS ORDERED: ONDANSETRON INJ 2 MG/ML 2 ML VIAL IV PRN (10:31)
[2019-08-18] MEDS ORDERED: ACETAMINOPHEN 1,000 MG/100 ML VIAL IV ONE (12:18)
--- NOTE | 2019-08-18 12:18 | Operative Report ---
PG Post Operative Report Pre & Post Diagnosis Operation Date: 08/18/19 09:30 Pre-Op Diagnosis: Left axillary abscess Post-Op Diagnosis: Left axillary abscess I identified the patient and participated in the time-out.: Yes Procedure Operation Date: 08/18/19 09:30 Actual Procedures p Left Axillary Abscess Incision and Drainage(Left) - Rai Perdue MD, FACS debridement, culture Surgeon Rai Perdue MD, FACS [employer] Janel Aragon Estimated Blood Loss 10 Findings Consistent with Post-Op Diagnosis Specimens Lt axillary tissue Description of Procedure see dictation I attest to the content of the Intraoperative Record and any orders documented therein. Any exceptions are noted below.
[2019-08-18] MEDS ORDERED: MoRPHine SULFATE 2 MG/ML CARP IV PRN (12:22)
[2019-08-18] MEDS ORDERED: HYDROCODONE/ACETAMOPHEN 5/325MG TAB PO PRN ×2 (12:22)
--- NOTE | 2019-08-18 12:31 | Electroencephalogram ---
EEG Procedure Note Date of Service August 18, 2019 Start / End Times Start Time: 08:24 End Time: 08:[address] Alexander Fuentes History A 63 year old woman with recurrent syncope. Admitted to [facility] for sepsis. EEG performed for evaluation of epileptiform acivity. Home Medication List Home Medications Medication Instructions Recorded Confirmed Type nortriptyline 25 mg PO HS 10/24/18 08/17/19 History cyanocobalamin (vitamin B-12) 500 mcg PO DAILY 08/16/19 08/17/19 History [Vitamin B-12] doxycycline hyclate 100 mg PO BID 10 Days #20 tab 08/16/19 08/17/19 Rx duloxetine [Cymbalta] 30 mg PO BID 08/16/19 08/17/19 History esomeprazole magnesium [Nexium] 40 mg PO DAILY 08/16/19 08/17/19 History folic acid 1 mg PO DAILY 08/16/19 08/17/19 History gabapentin 300 mg PO TID 08/16/19 08/17/19 History misoprostol [Cytotec] 100 mcg PO QID 08/16/19 08/17/19 History ondansetron HCl 4 mg PO Q8 PRN 08/16/19 08/17/19 History sucralfate [Carafate] 1 g PO ACHS 08/16/19 08/17/19 History Inpatient Medication List Acetaminophen (Tylenol) 325 mg PO Q6H PRN PRN Reason: Pain or Fever Stop: 09/16/19 22:04 Last Admin: 08/18/19 00:19 Dose: 325 mg Documented by: [id number] Cyanocobalamin (Vitamin B-12) 500 mcg PO DAILY [facility] Stop: 09/17/19 08:59 Last Admin: 08/18/19 09:09 Dose: 500 mcg Documented by: [id number] Duloxetine HCl (Cymbalta) 30 mg PO BID [facility] Stop: 09/16/19 22:04 Last Admin: 08/18/19 09:09 Dose: 30 mg Documented by: [id number] Admin: 08/17/19 23:41 Dose: 30 mg Documented by: [id number] Folic Acid (Folvite) 1 mg PO DAILY [facility] Stop: 09/17/19 08:59 Last Admin: 08/18/19 09:10 Dose: 1 mg Documented by: [id number] Gabapentin (Neurontin) 300 mg PO TID BABAK Stop: 09/16/19 22:04 Last Admin: 08/18/19 09:09 Dose: 300 mg Documented by: [id number] Admin: 08/17/19 23:41 Dose: 300 mg Documented by: [id number] Gadobutrol (Gadavist 65ml) 5.7 ml IV ONCE PRN PRN Reason: Interaction Checking Stop: 08/22/19 03:09 Last Admin: 08/18/19 02:52 Dose: 5.7 ml Documented by: [id number] Lorazepam (Ativan) 0.25 mg in 0.5 mls @ 0.5 mls/min IV Q4H PRN PRN Reason: Anxiety Stop: 09/16/19 22:04 Last Admin: 08/18/19 01:44 Dose: 0.5 mls/min Documented by: [id number] Parenteral Electrolytes (Normosol-R) 1,000 mls @ 75 mls/hr IV .[id number] BABAK Stop: 08/18/19 18:21 Last Infusion: 08/18/19 05:13 Dose: 75 mls/hr Documented by: [id number] Admin: 08/18/19 03:38 Dose: 200 mls/hr Documented by: [id number] Insulin Aspart (Novolog Flexpen) 0 units SC ACHS BABAK Stop: 09/16/19 23:44 Last Admin: 08/18/19 09:10 Dose: Not Given Documented by: [id number] Cosigned by: [id number] Admin: 08/18/19 00:14 Dose: Not Given Documented by: [id number] Cosigned by: [id number] Nortriptyline HCl (Pamelor) 25 mg PO HS BABAK Stop: 09/16/19 22:04 Last Admin: 08/18/19 00:17 Dose: 25 mg Documented by: [id number] Pantoprazole Sodium (Protonix) 40 mg PO DAILY BABAK Stop: 09/17/19 08:59 Last Admin: 08/18/19 09:10 Dose: 40 mg Documented by: [id number] Sucralfate (Carafate Tab) 1 gm PO ACHS BABAK Stop: 09/16/19 22:04 Last Admin: 08/18/19 09:10 Dose: 1 gm Documented by: [id number] Admin: 08/17/19 23:41 Dose: 1 gm Documented by: [id number] Thiamine HCl (Vitamin B-1) 100 mg PO QAM [facility] Stop: 09/17/19 08:59 Last Admin: 08/18/19 09:13 Dose: 100 mg Documented by: [id number] Discontinued Medications Al Hydrox/Mg Hydrox/Simethicone () 1 dose PO ONE ONE Stop: 08/17/19 19:19 Last Admin: 08/17/19 19:49 Dose: 1 dose Documented by: [id number] Bacitracin (Bacitracin) Confirm Administered Dose 50,000 units .ROUTE .STK-MED ONE Stop: 08/18/19 10:18 Last Admin: 08/18/19 12:05 Dose: 50,000 units Documented by: [id number] Bupivacaine HCl (Marcaine 0.5% Mpf) Confirm Administered Dose 30 ml .ROUTE .STK- MED ONE Stop: 08/18/19 10:18 Last Admin: 08/18/19 12:05 Dose: 10 ml Documented by: [id number] Famotidine (Pepcid) 20 mg PO NOW ONE Stop: 08/17/19 19:19 Last Admin: 08/17/19 19:49 Dose: 20 mg Documented by: [id number] Hydromorphone HCl (Dilaudid) 0.5 mg IV Q15M PRN PRN Reason: Pain Stop: 08/31/19 18:16 Last Admin: 08/17/19 19:49 Dose: 0.5 mg Documented by: [id number] Admin: 08/17/19 19:00 Dose: 0.5 mg Documented by: [id number] Piperacillin Sod/Tazobactam Sod (Zosyn) 4.5 gm in 120 mls @ 240 mls/hr IV NOW ONE Stop: 08/17/19 18:46 Last Infusion: 08/17/19 19:40 Dose: 0 mls/hr Documented by: [id number] Admin: 08/17/19 19:00 Dose: 240 mls/hr Documented by: [id number] Daptomycin 350 mg/ Syringe 7 mls @ 3.5 mls/min IV NOW ONE; Protocol Stop: 08/17/19 18:18 Last Admin: 08/17/19 19:48 Dose: 3.5 mls/min Documented by: [id number] Potassium Chloride (K Yousif / Wtr) 10 meq in 100 mls @ 100 mls/hr IV Q1H BABAK Stop: 08/17/19 21:29 Last Infusion: 08/17/19 23:50 Dose: 0 mls/hr Documented by: [id number] Admin: 08/17/19 22:12 Dose: 100 mls/hr Documented by: [id number] Infusion: 08/17/19 20:45 Dose: 0 mls/hr Documented by: [id number] Admin: 08/17/19 19:45 Dose: 100 mls/hr Documented by: [id number] Lactated Ringer's (Lr) 1,000 mls @ 500 mls/hr IV .Q2H ONE Stop: 08/18/19 00:59 Last Infusion: 08/18/19 03:38 Dose: 0 mls/hr Documented by: [id number] Infusion: 08/18/19 01:49 Dose: 0 mls/hr Documented by: [id number] Admin: 08/18/19 00:06 Dose: 500 mls/hr Documented by: [id number] Thiamine HCl 100 mg/ Syringe 10 mls @ 2 mls/min IV NOW STA Stop: 08/17/19 22:20 Last Admin: 08/17/19 23:42 Dose: 2 mls/min Documented by: [id number] Potassium Chloride 40 meq/ (Sodium Chloride) 1,020 mls @ 75 mls/hr IV .[id number] STA Stop: 08/18/19 11:40 Last Admin: 08/17/19 23:51 Dose: Not Given Documented by: [id number] Sodium Chloride (Nss 1000ml) 1,000 mls @ 999 mls/hr IV .Q1H1M ONE Stop: 08/17/19 23:05 Last Infusion: 08/17/19 23:50 Dose: 0 mls/hr Documented by: [id number] Admin: 08/17/19 22:35 Dose: 999 mls/hr Documented by: [id number] Insulin Glargine (Lantus Solostar Pen) 5 units SQ HS BABAK Stop: 09/16/19 23:44 Last Admin: 08/18/19 00:13 Dose: Not Given Documented by: [id number] Cosigned by: [id number] Ioversol (Optiray 320 100ml) 92 ml IV ONCE PRN PRN Reason: Interaction Checking Stop: 08/21/19 18:53 Last Admin: 08/17/19 18:54 Dose: 92 ml Documented by: [id number] Metoclopramide HCl (Reglan) 10 mg IV NOW STA Stop: 08/17/19 19:17 Last Admin: 08/17/19 19:49 Dose: 10 mg Documented by: [id number] Ondansetron HCl (Zofran) 4 mg IV NOW STA Stop: 08/17/19 18:18 Last Admin: 08/17/19 19:00 Dose: 4 mg Documented by: [id number] Potassium Chloride (Klor-Con M20) 40 meq PO NOW STA Stop: 08/17/19 19:16 Last Admin: 08/17/19 19:49 Dose: 40 meq Documented by: [id number] Potassium Chloride (Klor-Con M20) 40 meq PO ONE ONE Stop: 08/17/19 23:01 Last Admin: 08/17/19 23:43 Dose: 40 meq Documented by: [id number] Sucralfate (Carafate Tab) 1 gm PO NOW STA Stop: 08/17/19 19:19 Last Admin: 08/17/19 19:49 Dose: 1 gm Documented by: [id number] Description This is a 21 electrode EEG with a single channel dedicated to limited EKG. The electrodes were placed in accordance with the International 10-20 system. REPORT: At the onset of the EEG, the patient is awake. The background activity consist of 10-11 Hz, persistent, posteriorly dominant, moderate amplitude, symmetric and rhythmic activity that is reactive to eye opening. Anteriorly, it consist of a mixture of low voltage indeterminate activity and 15-25 Hz, persistent, low amplitude, symmetric and rhythmic activity. Stepwise intermittent photic stimulation does not induce any abnormalities. Drowsiness is characterized by low amplitude mixed frequency activity, roving eye movements, and decreased eye blinking and muscle artifact. IMPRESSION: This is a normal awake and drowsy EEG. There is no evidence of epileptiform activity.
[2019-08-18] MEDS ORDERED: ePHEDrine sulfate 50 MG/ML SYR ONE (12:37)
[2019-08-18] MEDS ORDERED: GLYCOPYRROLATE 0.2 MG/ML VIAL ONE (12:37)
[2019-08-18] MEDS ORDERED: ROCURONIUM BROMIDE 10 MG/ML 5 ML VIAL ONE (12:37)
[2019-08-18] MEDS ORDERED: NEOSTIGMINE METHYLSULFATE 5 MG/5 ML SYR ONE (12:37)
[2019-08-18] MEDS ORDERED: ONDANSETRON INJ 2 MG/ML 2 ML VIAL ONE (12:37)
[2019-08-18] MEDS: fentaNYL citrate 100 MCG/2 ML VIAL IV PRN ×4 (12:39→12:54)
--- NOTE | 2019-08-18 14:09 | Operative Report ---
DATE OF OPERATION: 08/18/2019 NAME OF OPERATION: Incision, drainage and debridement of left axillary abscess. PREOPERATIVE DIAGNOSIS: Left axillary abscess with necrosis. POSTOPERATIVE DIAGNOSIS: Left axillary abscess with necrosis. STAFF SURGEON: Rai Perdue M.D. [employer] INTER[employer]: Jolene Aragon. ANESTHESIA: General. DESCRIPTION OF PROCEDURE: The patient was brought in the operating room and placed on the operating table in supine position. Her left arm was extended on an arm board. She had an area of abscess and necrosis of the left axilla. The site was anesthetized using 0.5% plain Marcaine. My shampoo assistant helped with prepping, draping, excision of the tissue and dressing placement. Incision was made around the area of necrosis to normal tissue, dissecting down into the subcutaneous tissue, excising a piece of tissue approximately 6 x 5 cm. It was also cultured. It was sent for routine pathology. Deep tissue was cauterized and also small vessels oversewn using 2-0 plain suture. Betadine gauze packing applied. A gauze dressing applied. The patient transferred to recovery room in stable condition. I attest to the content of the Intraoperative Record and any orders documented therein. Any exception s are noted below.
--- NOTE | 2019-08-18 14:14 | Anesthesiology Progress Note ---
Date of Service August 18, 2019 Anesthesia Post Procedure Vital Signs Vital Signs: Temp Pulse Pulse Pulse Resp BP BP 08/18/19 14:02 36.6 C 70 18 08/18/19 13:15 68 13 08/18/19 13:05 36.6 C 66 18 08/18/19 12:55 66 16 08/18/19 12:45 66 14 08/18/19 12:35 78 24 08/18/19 12:26 37.0 C 87 21 08/18/19 09:48 36.8 C 76 18 158/83 H 08/18/19 08:09 75 08/18/19 04:00 36.4 C L 20 08/17/19 22:56 86 08/17/19 22:36 36.7 C 71 18 150/76 H 08/17/19 21:42 75 20 144/74 H 08/17/19 21:30 72 13 144/74 H 08/17/19 21:00 80 16 136/71 08/17/19 20:33 83 22 135/71 08/17/19 19:08 79 08/17/19 18:20 08/17/19 18:07 37.0 C 82 18 148/90 H 08/17/19 18:03 86 20 148/90 H BP Pulse Ox 08/18/19 14:02 138/70 92 08/18/19 13:15 118/89 99 08/18/19 13:05 133/61 100 08/18/19 12:55 131/64 98 08/18/19 12:45 134/68 100 08/18/19 12:35 131/55 L 100 08/18/19 12:26 139/77 99 08/18/19 09:48 98 08/18/19 08:09 08/18/19 04:00 96 08/17/19 22:56 08/17/19 22:36 97 08/17/19 21:42 93 08/17/19 21:30 93 08/17/19 21:00 90 08/17/19 20:33 97 08/17/19 19:08 99 08/17/19 18:20 97 08/17/19 18:07 99 08/17/19 18:03 100 Pain Intensity Abdomen: Pain Intensity: 8 Left Axilla: Pain Intensity: 4 Transfer of Care Handoff Completed per policy Notes Mental Status: alert / awake / arousable and participated in evaluation Patient Amnestic to Procedure: Yes Nausea / Vomiting: adequately controlled Pain: adequately controlled Airway Patency, RR, SpO2: stable & adequate BP & HR: stable & adequate Hydration State: stable & adequate Anesthetic Complications: no major complications apparent and Pt Satisfied with anesthetic care
[2019-08-18] MEDS: PROMETHAZINE HCL 12.5 MG in SODIUM CHLORIDE 0.9% 50 ML IV PRN ×2 (16:10→22:15)
[2019-08-18] MEDS: DAPTOmycin 350 MG in SYRINGE 0 ML IV SCH (17:23)
--- NOTE | 2019-08-18 18:49 | Hospitalist Progress Note ---
Date of Service August 18, 2019 Assessment & Plan (1) Bacteremia: Secondary to abscess on left chest wall. Patient is not septic. Continues on daptomycin. ID consulted. She is status post I&D this morning and recovering well. (2) Hypokalemia: Possibly secondary to poor intake and intermittent vomiting with nausea. Resolved after supplementation given period (3) Syncope: Uncertain etiology. Sinus rhythm on telemetry review overnight. She is a heavy alcohol user although currently denying this. Sister reports visible intoxication just a few days ago and alcohol level was 180 on arrival. She does have a history of an anastomotic ulcer and is having some issues with nausea and vomiting. She has no history of seizures but this is also in the differential as the patient is somewhat postictal upon awakening. MRI of the brain revealed possible chronic microvascular disease versus demyelination in the setting of white matter visible on imaging. Will consult neurology for assistance with this. Echo otherwise reveals no structural heart changes. Orthostatic vital signs ordered every shift. Continue supportive care and treatment for current bacteremia infection. (4) Abscess: Status post I&D as above. (5) Status post gastric bypass for obesity: History of known anastomotic ulcer. Continue sucralfate and pantoprazole. (6) Alcohol abuse: History of alcohol abuse with evidence of recent drinking although patient denies this. May be contributing to development of GI ulcer and recurrent syncope. (7) DVT prophylaxis: SCDs/ambulation Full code Dispo-continue telemetry monitoring. Kari Hayes DO [facility] Hospitalist Subjective feels improved today she is post-op and recovering well from her I&D procedure mentating clearly reports multiple episodes of syncope that just began in the last couple of months alcohol level was 180 on admission but she denies any alcohol use in the past she is a self-reported heavy drinker who previously quit drinking, however, sister who is at bedside reported known alcohol use within the last week known h/o gastric bypass with an anastomotic ulcer reports chills for the past week in the setting of bacteremia doing well on IV abx Review of Systems Review of Systems: All systems reviewed & are unremarkable except as noted in HPI & below Physical Exam Physical Exam: CONSTITUTIONAL: WNWD, vitals as above, generally well- appearing EYES: EOMI, PERRL, normal conjunctivae, no scleral icterus ENT: oropharynx clear RESPIRATORY: clear to auscultation bilaterally, no crackles, rales or wheezes, normal respiratory effort CARDIOVASCULAR: regular rate and rhythm, S1 and 2 heard without murmurs, gallops or rubs, no JVD, no peripheral edema, no carotid bruits GASTROINTESTINAL: normal bowel sounds, soft, nontender, nondistended MUSCULOSKELETAL: strength 5/5 throughout, head is normocephalic and atraumatic SKIN: warm and dry, incision site in L axilla covered with clean, dry dressing. NEUROLOGIC: PERRL, EOMI, no facial palsy, no dysarthria. CN 2-12 grossly intact, no sensory deficit, normal cognition, normal speech, no tremor, no gross focal deficit but did not walk patient. PSYCHIATRIC: alert cooperative and oriented to person, place and time. Results & Data Vital Signs (Past 12 Hours) Vital Signs Temp Pulse Pulse Pulse Resp BP BP 08/18/19 15:29 36.6 C 75 17 137/76 08/18/19 15:21 74 08/18/19 14:32 36.4 C L 71 18 146/66 H 08/18/19 14:02 36.6 C 70 18 138/70 08/18/19 13:15 68 13 118/89 08/18/19 13:05 36.6 C 66 18 133/61 08/18/19 12:55 66 16 131/64 08/18/19 12:45 66 14 134/68 08/18/19 12:35 78 24 131/55 L 08/18/19 12:26 37.0 C 87 21 139/77 08/18/19 09:48 36.8 C 76 18 158/83 H 08/18/19 08:09 75 Pulse Ox 08/18/19 15:29 96 08/18/19 15:21 08/18/19 14:32 92 08/18/19 14:02 92 08/18/19 13:15 99 08/18/19 13:05 100 08/18/19 12:55 98 08/18/19 12:45 100 08/18/19 12:35 100 08/18/19 12:26 99 08/18/19 09:48 98 08/18/19 08:09 Laboratory Results Short CBC 08/18/19 Range/Units 03:51 WBC 4.46 L (4.8-10.8) K/uL Hgb 10.0 L (12.0-16.0) g/dL Hct 30.7 L (37-47) % Plt Count 170 (130-400) K/uL BMP 08/17/19 08/18/19 18:26 03:51 Sodium 140 140 Potassium 2.7 L 3.9 D Chloride 103 107 Carbon Dioxide 25 29 BUN 6 L D 4 L Creatinine 0.95 D 0.86 Glucose 148 H 83 Calcium 7.8 L 7.3 L Cardiac Enzymes 08/17/19 08/17/19 Range/Units 18:26 18:26 Total Creatine Kinase 63 Cancelled (26-192) U/L Liver Function 08/17/19 08/18/19 Range/Units 18:26 05:15 Total Bilirubin 0.3 (0.2-1) mg/dl AST 70 H (15-37) U/L ALT 62 (12-78) U/L Alkaline Phosphatase 187 H (45-117) U/L Albumin 2.4 L 2.0 L (3.4-5.0) gm/dl Urine 08/17/19 Range/Units 22:53 Urine Color Yellow Urine Appearance Clear (Clear) Urine pH 8.0 H (4.5-7.5) Ur Specific [place] 1.034 H (1.000-1.030) Urine Protein Negative (Negative) Urine Glucose (UA) 1+ H (Negative) Medications Administered Current Inpatient Medications Acetaminophen (Tylenol) 325 mg PO Q6H PRN PRN Reason: Pain or Fever Stop: 09/16/19 22:04 Last Admin: 08/18/19 00:19 Dose: 325 mg Documented by: Hydrocodone Bitart/Acetaminophen ([place] 5/325) 2 tab PO 3XDQ4 PRN PRN Reason: Pain Stop: 09/01/19 12:21 Hydrocodone Bitart/Acetaminophen ([place] 5/325) 1 tab PO 3XDQ4 PRN PRN Reason: Pain Stop: 09/01/19 12:21 Cyanocobalamin (Vitamin B-12) 500 mcg PO DAILY [facility] Stop: 09/17/19 08:59 Last Admin: 08/18/19 09:09 Dose: 500 mcg Documented by: Dextrose (Dextrose 50%) 25 - 50 ml IV UD PRN; Protocol PRN Reason: Hypoglycemia Protocol Stop: 09/16/19 22:04 Duloxetine HCl (Cymbalta) 30 mg PO BID [facility] Stop: 09/16/19 22:04 Last Admin: 08/18/19 09:09 Dose: 30 mg Documented by: Folic Acid (Folvite) 1 mg PO DAILY [facility] Stop: 09/17/19 08:59 Last Admin: 08/18/19 09:10 Dose: 1 mg Documented by: Gabapentin (Neurontin) 300 mg PO TID [facility] Stop: 09/16/19 22:04 Last Admin: 08/18/19 14:05 Dose: 300 mg Documented by: Gadobutrol (Gadavist 65ml) 5.7 ml IV ONCE PRN PRN Reason: Interaction Checking Stop: 08/22/19 03:09 Last Admin: 08/18/19 02:52 Dose: 5.7 ml Documented by: Glucagon (Glucagen) 1 mg SQ UD PRN; Protocol PRN Reason: Hypoglycemia Protocol Stop: 09/16/19 22:04 Glucose (Glucose 40%) 15 - 30 gm PO UD PRN; Protocol PRN Reason: Hypoglycemia Protocol Stop: 09/16/19 22:04 Glucose (Dex4 Glucose) 4 - 8 tabs PO UD PRN; Protocol PRN Reason: Hypoglycemia Protocol Stop: 09/16/19 22:04 Lorazepam (Ativan) 0.25 mg in 0.5 mls @ 0.5 mls/min IV Q4H PRN PRN Reason: Anxiety Stop: 09/16/19 22:04 Last Admin: 08/18/19 01:44 Dose: 0.5 mls/min Documented by: Promethazine HCl 12.5 mg/ (Sodium Chloride) 50.5 mls @ 202 mls/hr IV Q6H PRN PRN Reason: Nausea And Vomiting Stop: 09/16/19 22:04 Daptomycin 350 mg/ Syringe 7 mls @ 3.5 mls/min IV Q24H [facility]; Protocol Stop: 08/31/19 17:59 Last Admin: 08/18/19 17:23 Dose: 3.5 mls/min Documented by: Promethazine HCl 12.5 mg/ (Sodium Chloride) 50.5 mls @ 204 mls/hr IV Q6H PRN PRN Reason: Nausea And Vomiting Stop: 09/17/19 12:21 Last Infusion: 08/18/19 16:25 Dose: Infused Documented by: Insulin Aspart (Novolog Flexpen) 0 units SC [facility] Stop: 09/16/19 23:44 Last Admin: 08/18/19 16:13 Dose: Not Given Documented by: Miscellaneous (Carbohydrates For Hypoglycemia) 15 - 30 gm PO UD PRN PRN Reason: Hypoglycemia Treatment Stop: 09/16/19 22:04 Miscellaneous Information (Consult) 1 ea N/A UD PRN PRN Reason: Consult Stop: 09/16/19 23:41 Morphine Sulfate (Morphine Sulfate) 1 mg IV 4XDQ3H PRN PRN Reason: Pain Stop: 09/01/19 12:21 Morphine Sulfate (Morphine Sulfate) 2 mg IV 4XDQ3H PRN PRN Reason: Pain Stop: 09/01/19 12:21 Nortriptyline HCl (Pamelor) 25 mg PO HS [facility] Stop: 09/16/19 22:04 Last Admin: 08/18/19 00:17 Dose: 25 mg Documented by: Oxycodone HCl (Roxicodone Immediate Rel) 5 mg PO Q4H PRN PRN Reason: Pain Stop: 08/31/19 22:04 Pantoprazole Sodium (Protonix) 40 mg PO DAILY [facility] Stop: 09/17/19 08:59 Last Admin: 08/18/19 09:10 Dose: 40 mg Documented by: Sucralfate (Carafate Tab) 1 gm PO ACHS [facility] Stop: 09/16/19 22:04 Last Admin: 08/18/19 16:13 Dose: Not Given Documented by: Thiamine HCl (Vitamin B-1) [facility] [place]: 09/17/19 08:59 Last Admin: 08/18/19 09:13 Dose: 100 mg Documented by:
[2019-08-18] MEDS: MoRPHine SULFATE 2 MG/ML CARP IV PRN (20:50)
--- NOTE | 2019-08-19 01:27 | Emergency Department Note ---
Entered by Lauryn Sandoval acting as a scribe for History of Present Illness General Chief complaint: Abdominal Pain Stated complaint: ABNORMAL LABS Time Seen by Provider: 08/17/19 18:07 Source: patient Mode of arrival: ambulatory Limitations: no limitations History of Present Illness Onset (ago): day(s) 1 Location: abdomen Radiation: non-radiation Pain Consistency: + constant Maximum Pain Intensity: 9 Current Pain Intensity: 9 Relieved By: + none Exacerbated By: + other (drinking vodka yesterday) Associated symptoms: + nausea/vomiting Treatments prior to arrival: none The patient is a 63 year old female who presents to the ED with complaints of abdominal pain. She rates her pain as a 9/10 in severity. She states she has been nauseous and vomiting and has had to chew on ice chips to relieve her nausea. The patient does admit to drinking vodka yesterday, that may have worsened an existing abdominal ulcer. She was seen here in the ED yesterday for an abscess under her arm that grew out positive blood cultures. Home Medications Home Medications Medication Instructions Recorded Confirmed Type nortriptyline 25 mg PO HS 10/24/18 08/17/19 History cyanocobalamin (vitamin B-12) 500 mcg PO DAILY 08/16/19 08/17/19 History [Vitamin B-12] doxycycline hyclate 100 mg PO BID 10 Days #20 tab 08/16/19 08/17/19 Rx duloxetine [Cymbalta] 30 mg PO BID 08/16/19 08/17/19 History esomeprazole magnesium [Nexium] 40 mg PO DAILY 08/16/19 08/17/19 History folic acid 1 mg PO DAILY 08/16/19 08/17/19 History gabapentin 300 mg PO TID 08/16/19 08/17/19 History misoprostol [Cytotec] 100 mcg PO QID 08/16/19 08/17/19 History ondansetron HCl 4 mg PO Q8 PRN 08/16/19 08/17/19 History sucralfate [Carafate] 1 g PO ACHS 08/16/19 08/17/19 History Allergies Allergy/AdvReac Type Severity Reaction Status Date / Time Sulfa (Sulfonamide Allergy Severe FACE/THROAT Verified 08/17/19 19:29 Antibiotics) SWELL UP Past Med/Surg History Medical History Anemia, iron deficiency (Chronic) Small bowel obstruction (Resolved) Ulcer GI Surgical History Status post gastric bypass for obesity (Chronic) Status post cholecystectomy (Chronic) Status post hysterectomy (Chronic) Status post appendectomy (Chronic) History of incision and drainage (08/18/19) Left Axillary Abscess Incision and Drainage Dr. 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 and A total of 10 systems reviewed and were otherwise negative Physical Exam Vital Signs Vital Signs - 24 hr 08/17/19 18:07 08/17/19 18:20 08/17/19 19:08 Temperature 98.6 F Temperature Source Oral Sepsis Recent Fever Within 48 Hours No Sepsis Action Taken by Nursing No Action Required Pulse Rate 82 Pulse Rate [Finger] 79 Respiratory Rate 18 Respiratory Depth Normal Blood Pressure 148/90 H Blood Pressure Mean 109 Pulse Oximetry 99 97 99 Oxygen Delivery Method Room Air Room Air Room Air GENERAL: Awake, alert, well-appearing, in no acute distress HENT: Normocephalic, atraumatic. Oropharynx unremarkable. EYES: Normal conjunctiva. Sclera non-icteric. NECK: Supple. No nuchal rigidity. FROM. No JVD. RESPIRATORY: Clear to auscultation. CARDIAC: Regular rate, normal rhythm. Extremities warm and well perfused. Pulses equal. ABDOMEN: Soft, non-distended. Tenderness in LLQ. No rebound or guarding. No masses. RECTAL: Deferred. MUSCULOSKELETAL: Chest examination reveals no tenderness. The back is symmetrical on inspection without obvious abnormality. There is no CVA tenderness to palpation. No joint edema. LOWER EXTREMITIES: Calves are equal size bilaterally and non-tender. No edema. No discoloration. NEURO: Normal sensorium. No sensory or motor deficits noted. SKIN: No rash or jaundice noted. Course 1811: The patient was evaluated in room C6 and a complete history and physical were performed. 1919: [facility] The patient will be further evaluated. Consultations Consultation #1: I [facility] the patients [facility] The patient will be further evaluated. Time: 19:20 Administered Medications Acetaminophen (Tylenol) 325 mg PO Q6H PRN PRN Reason: Pain or Fever Stop: 09/16/19 22:04 Last Admin: 08/18/19 00:19 Dose: 325 mg Documented by: [id number] Cyanocobalamin (Vitamin B-12) 500 mcg PO DAILY [facility] Stop: 09/17/19 08:59 Last Admin: 08/18/19 09:09 Dose: 500 mcg Documented by: [id number] Duloxetine HCl (Cymbalta) 30 mg PO BID [facility] Stop: 09/16/19 22:04 Last Admin: 08/18/19 20:55 Dose: 30 mg Documented by: [id number] Admin: 08/18/19 09:09 Dose: 30 mg Documented by: [id number] Admin: 08/17/19 23:41 Dose: 30 mg Documented by: [id number] Folic Acid (Folvite) 1 mg PO DAILY [facility] Stop: 09/17/19 08:59 Last Admin: 08/18/19 09:10 Dose: 1 mg Documented by: [id number] Gabapentin (Neurontin) 300 mg PO TID [facility] Stop: 09/16/19 22:04 Last Admin: 08/18/19 20:55 Dose: 300 mg Documented by: [id number] Admin: 08/18/19 14:05 Dose: 300 mg Documented by: [id number] Admin: 08/18/19 09:09 Dose: 300 mg Documented by: [id number] Admin: 08/17/19 23:41 Dose: 300 mg Documented by: [id number] Gadobutrol (Gadavist 65ml) 5.7 ml IV ONCE PRN PRN Reason: Interaction Checking Stop: 08/22/19 03:09 Last Admin: 08/18/19 02:52 Dose: 5.7 ml Documented by: [id number] Lorazepam (Ativan) 0.25 mg in 0.5 mls @ 0.5 mls/min IV Q4H PRN PRN Reason: Anxiety Stop: 09/16/19 22:04 Last Admin: 08/18/19 01:44 Dose: 0.5 mls/min Documented by: [id number] Daptomycin 350 mg/ Syringe 7 mls @ 3.5 mls/min IV Q24H [facility]; Protocol Stop: 08/31/19 17:59 Last Admin: 08/18/19 17:23 Dose: 3.5 mls/min Documented by: [id number] Promethazine HCl 12.5 mg/ (Sodium Chloride) 50.5 mls @ 204 mls/hr IV Q6H PRN PRN Reason: Nausea And Vomiting Stop: 09/17/19 12:21 Last Infusion: 08/18/19 22:33 Dose: 0 mls/hr Documented by: [id number] Admin: 08/18/19 22:15 Dose: 204 mls/hr Documented by: [id number] Infusion: 08/18/19 16:25 Dose: 0 mls/hr Documented by: [id number] Admin: 08/18/19 16:10 Dose: 204 mls/hr Documented by: [id number] Insulin Aspart (Novolog Flexpen) 0 units SC ACHS [facility] Stop: 09/16/19 23:44 Last Admin: 08/18/19 21:25 Dose: Not Given Documented by: [id number] Cosigned by: [id number] Admin: 08/18/19 16:13 Dose: Not Given Documented by: [id number] Cosigned by: [id number] Admin: 08/18/19 14:03 Dose: Not Given Documented by: [id number] Cosigned by: [id number] Admin: 08/18/19 09:10 Dose: Not Given Documented by: [id number] Cosigned by: [id number] Admin: 08/18/19 00:14 Dose: Not Given Documented by: [id number] Cosigned by: [id number] Morphine Sulfate (Morphine Sulfate) 2 mg IV [id number] PRN PRN Reason: Pain Stop: 09/01/19 12:21 Last Admin: 08/18/19 20:50 Dose: 2 mg Documented by: [id number] Nortriptyline HCl (Pamelor) 25 mg PO HS [facility] Stop: 09/16/19 22:04 Last Admin: 08/18/19 20:55 Dose: 25 mg Documented by: [id number] Admin: 08/18/19 00:17 Dose: 25 mg Documented by: [id number] Pantoprazole Sodium (Protonix) 40 mg PO DAILY [facility] Stop: 09/17/19 08:59 Last Admin: 08/18/19 09:10 Dose: 40 mg Documented by: [id number] Sucralfate (Carafate Tab) 1 gm PO ACHS [facility] Stop: 09/16/19 22:04 Last Admin: 08/18/19 20:55 Dose: 1 gm Documented by: [id number] Admin: 08/18/19 16:13 Dose: Not Given Documented by: [id number] Admin: 08/18/19 13:46 Dose: Not Given Documented by: [id number] Admin: 08/18/19 09:10 Dose: 1 gm Documented by: [id number] Admin: 08/17/19 23:41 Dose: 1 gm Documented by: [id number] Thiamine HCl (Vitamin B-1) 100 mg PO QAM [facility] Stop: 09/17/19 08:59 Last Admin: 08/18/19 09:13 Dose: 100 mg Documented by: [id number] Discontinued Medications Al Hydrox/Mg Hydrox/Simethicone () 1 dose PO ONE ONE Stop: 08/17/19 19:19 Last Admin: 08/17/19 19:49 Dose: 1 dose Documented by: [id number] Bacitracin (Bacitracin) Confirm Administered Dose 50,000 units .ROUTE .STK-MED ONE Stop: 08/18/19 10:18 Last Admin: 08/18/19 12:05 Dose: 50,000 units Documented by: [id number] Bupivacaine HCl (Marcaine 0.5% Mpf) Confirm Administered Dose 30 ml .ROUTE .STK- MED ONE Stop: 08/18/19 10:18 Last Admin: 08/18/19 12:05 Dose: 10 ml Documented by: [id number] Famotidine (Pepcid) 20 mg PO NOW ONE Stop: 08/17/19 19:19 Last Admin: 08/17/19 19:49 Dose: 20 mg Documented by: [id number] Fentanyl Citrate (Fentanyl Citrate) 25 mcg IV Q5M PRN PRN Reason: PACU Use Only-Pain Stop: 08/18/19 15:31 Last Admin: 08/18/19 12:54 Dose: 25 mcg Documented by: [id number] Admin: 08/18/19 12:49 Dose: 25 mcg Documented by: [id number] Admin: 08/18/19 12:44 Dose: 25 mcg Documented by: [id number] Admin: 08/18/19 12:39 Dose: 25 mcg Documented by: [id number] Hydromorphone HCl (Dilaudid) 0.5 mg IV Q15M PRN PRN Reason: Pain Stop: 08/31/19 18:16 Last Admin: 08/17/19 19:49 Dose: 0.5 mg Documented by: [id number] Admin: 08/17/19 19:00 Dose: 0.5 mg Documented by: [id number] Piperacillin Sod/Tazobactam Sod (Zosyn) 4.5 gm in 120 mls @ 240 mls/hr IV NOW ONE Stop: 08/17/19 18:46 Last Infusion: 08/17/19 19:40 Dose: 0 mls/hr Documented by: [id number] Admin: 08/17/19 19:00 Dose: 240 mls/hr Documented by: [id number] Daptomycin 350 mg/ Syringe 7 mls @ 3.5 mls/min IV NOW ONE; Protocol Stop: 08/17/19 18:18 Last Admin: 08/17/19 19:48 Dose: 3.5 mls/min Documented by: [id number] Potassium Chloride (K Yousif / Wtr) 10 meq in 100 mls @ 100 mls/hr IV Q1H [facility] Stop: 08/17/19 21:29 Last Infusion: 08/17/19 23:50 Dose: 0 mls/hr Documented by: [id number] Admin: 08/17/19 22:12 Dose: 100 mls/hr Documented by: [id number] Infusion: 08/17/19 20:45 Dose: 0 mls/hr Documented by: [id number] Admin: 08/17/19 19:45 Dose: 100 mls/hr Documented by: [id number] Lactated Ringer's (Lr) 1,000 mls @ 500 mls/hr IV .Q2H ONE Stop: 08/18/19 00:59 Last Infusion: 08/18/19 03:38 Dose: 0 mls/hr Documented by: [id number] Infusion: 08/18/19 01:49 Dose: 0 mls/hr Documented by: [id number] Admin: 08/18/19 00:06 Dose: 500 mls/hr Documented by: [id number] Parenteral Electrolytes (Normosol-R) 1,000 mls @ 75 mls/hr IV .[id number] [facility] Stop: 08/18/19 18:21 Last Admin: 08/18/19 20:33 Dose: 75 mls/hr Documented by: [id number] Infusion: 08/18/19 18:20 Dose: 75 mls/hr Documented by: [id number] Infusion: 08/18/19 13:30 Dose: 75 mls/hr Documented by: [id number] Infusion: 08/18/19 09:30 Dose: 0 mls/hr Documented by: [id number] Infusion: 08/18/19 05:13 Dose: 75 mls/hr Documented by: [id number] Admin: 08/18/19 03:38 Dose: 200 mls/hr Documented by: [id number] Thiamine HCl 100 mg/ Syringe 10 mls @ 2 mls/min IV NOW STA Stop: 08/17/19 22:20 Last Admin: 08/17/19 23:42 Dose: 2 mls/min Documented by: [id number] Potassium Chloride 40 meq/ (Sodium Chloride) 1,020 mls @ 75 mls/hr IV .[id number] STA Stop: 08/18/19 11:40 Last Admin: 08/17/19 23:51 Dose: Not Given Documented by: [id number] Sodium Chloride (Nss 1000ml) 1,000 mls @ 999 mls/hr IV .Q1H1M ONE Stop: 08/17/19 23:05 Last Infusion: 08/17/19 23:50 Dose: 0 mls/hr Documented by: [id number] Admin: 08/17/19 22:35 Dose: 999 mls/hr Documented by: [id number] Acetaminophen (Ofirmev) 1,000 mg in 100 mls @ 400 mls/hr IV NOW ONE Stop: 08/18/19 12:32 Last Infusion: 08/18/19 14:15 Dose: 0 mls/hr Documented by: [id number] Admin: 08/18/19 14:00 Dose: 400 mls/hr Documented by: [id number] Insulin Glargine (Lantus Solostar Pen) 5 units SQ HS [facility] Stop: 09/16/19 23:44 Last Admin: 08/18/19 00:13 Dose: Not Given Documented by: [id number] Cosigned by: [id number] Ioversol (Optiray 320 100ml) 92 ml IV ONCE PRN PRN Reason: Interaction Checking Stop: 08/21/19 18:53 Last Admin: 08/17/19 18:54 Dose: 92 ml Documented by: [id number] Metoclopramide HCl (Reglan) 10 mg IV NOW STA Stop: 08/17/19 19:17 Last Admin: 08/17/19 19:49 Dose: 10 mg Documented by: [id number] Ondansetron HCl (Zofran) 4 mg IV NOW STA Stop: 08/17/19 18:18 Last Admin: 08/17/19 19:00 Dose: 4 mg Documented by: [id number] Potassium Chloride (Klor-Con M20) 40 meq PO NOW STA Stop: 08/17/19 19:16 Last Admin: 08/17/19 19:49 Dose: 40 meq Documented by: [id number] Potassium Chloride (Klor-Con M20) 40 meq PO ONE ONE Stop: 08/17/19 23:01 Last Admin: 08/17/19 23:43 Dose: 40 meq Documented by: [id number] Sucralfate (Carafate Tab) 1 gm PO NOW STA Stop: 08/17/19 19:19 Last Admin: 08/17/19 19:49 Dose: 1 gm Documented by: [id number] Medical Decision Making Differential Diagnosis Differential diagnoses includes but is not limited to gastritis, peptic ulcer disease, GERD, gallbladder disease, pancreatitis, small bowel obstruction, acute coronary syndrome, pericarditis, ischemic bowel, irritable bowel disease, irritable bowel syndrome, appendicitis, diverticulitis, malignancy, hernia, urinary tract infection, torsion, perforation, trauma, infectious. Medical Records Attestation: I reviewed the patient's medical records. Home Medications Current Medication List: was personally reviewed by me Laboratory Data Attestation: I reviewed the patient's lab results. Result diagrams: 08/18/19 03:51 08/18/19 03:51 Lab Results 08/17/19 08/17/19 08/17/19 Range/Units 18:26 18:26 18:26 WBC 4.40 L (4.8-10.8) K/uL RBC 3.80 L (4.2-5.4) M/uL Hgb 11.3 L (12.0-16.0) g/dL Hct 33.6 L (37-47) % MCV 88.4 (80-100) fL MCH 29.7 (25-34) pg MCHC 33.6 (32-36) g/dL RDW Std Deviation 56.5 H (36.4-46.3) fL RDW Coeff of Taye 17.4 H (11.5-14.5) % Plt Count 242 (130-400) K/uL MPV 8.1 (7.4-10.4) fL Immature Gran % (Auto) 0.0 % Neut % (Auto) 63.2 % Lymph % (Auto) 28.4 % [place] % (Auto) 7.0 % Eos % (Auto) 0.7 % Baso % (Auto) 0.7 % Immature Gran # (Auto) 0.00 (0.00-0.02) K/uL Neut # (Auto) 2.78 (1.4-6.5) K/uL Lymph # (Auto) 1.25 (1.2-3.4) K/uL [place] # (Auto) 0.31 (0.11-0.59) K/uL Eos # (Auto) 0.03 (0-0.5) K/uL Baso # (Auto) 0.03 (0-0.2) K/uL PT 10.4 (9.0-12.0) Seconds INR 1.0 (0.9-1.1) APTT 23.4 (21.0-31.0) Seconds PTT Ratio 0.9 Sodium 140 (136-145) mmol/L Potassium 2.7 L (3.5-5.1) mmol/L Chloride 103 (98-107) mmol/L Carbon Dioxide 25 (21-32) mmol/L Anion Gap 12.0 H (3-11) BUN 6 L D (7-18) mg/dl Creatinine 0.95 D (0.6-1.2) mg/dl Est Cr Clr Drug Dosing 53.0 ml/min Est GFR ( Amer) 74.4 Est GFR (Non-Af Amer) 64.2 BUN/Creatinine Ratio 6.1 L (10-20) Glucose 148 H (70-99) mg/dl Lactate Calcium 7.8 L (8.5-10.1) mg/dl Magnesium 1.9 (1.8-2.4) mg/dl Total Bilirubin 0.3 (0.2-1) mg/dl AST 70 H (15-37) U/L ALT 62 (12-78) U/L Alkaline Phosphatase 187 H (45-117) U/L Total Creatine Kinase 63 (26-192) U/L Total Protein 5.7 L (6.4-8.2) gm/dl Albumin 2.4 L (3.4-5.0) gm/dl Globulin 3.3 (2.5-4.0) gm/dl Albumin/Globulin Ratio 0.7 L (0.9-2) Lipase 158 (73-393) U/L TSH 7.460 H (0.300-4.500) uIu/ml Ethyl Alcohol mg/dL (0-3) mg/dl 08/17/19 08/17/19 08/17/19 Range/Units 18:26 18:26 18:26 WBC (4.8-10.8) K/uL RBC (4.2-5.4) M/uL Hgb (12.0-16.0) g/dL Hct (37-47) % MCV (80-100) fL MCH (25-34) pg MCHC (32-36) g/dL RDW Std Deviation (36.4-46.3) fL RDW Coeff of Taye (11.5-14.5) % Plt Count (130-400) K/uL MPV (7.4-10.4) fL Immature Gran % (Auto) % Neut % (Auto) % Lymph % (Auto) % [place] % (Auto) % Eos % (Auto) % Baso % (Auto) % Immature Gran # (Auto) (0.00-0.02) K/uL Neut # (Auto) (1.4-6.5) K/uL Lymph # (Auto) (1.2-3.4) K/uL [place] # (Auto) (0.11-0.59) K/uL Eos # (Auto) (0-0.5) K/uL Baso # (Auto) (0-0.2) K/uL PT (9.0-12.0) Seconds INR (0.9-1.1) APTT (21.0-31.0) Seconds PTT Ratio Sodium (136-145) mmol/L Potassium (3.5-5.1) mmol/L Chloride (98-107) mmol/L Carbon Dioxide (21-32) mmol/L Anion Gap (3-11) BUN (7-18) mg/dl Creatinine (0.6-1.2) mg/dl Est Cr Clr Drug Dosing ml/min Est GFR ( Amer) Est GFR (Non-Af Amer) BUN/Creatinine Ratio (10-20) Glucose (70-99) mg/dl Lactate Cancelled Calcium (8.5-10.1) mg/dl Magnesium Cancelled (1.8-2.4) mg/dl Total Bilirubin (0.2-1) mg/dl AST (15-37) U/L ALT (12-78) U/L Alkaline Phosphatase (45-117) U/L Total Creatine Kinase Cancelled (26-192) U/L Total Protein (6.4-8.2) gm/dl Albumin (3.4-5.0) gm/dl Globulin (2.5-4.0) gm/dl Albumin/Globulin Ratio (0.9-2) Lipase Cancelled (73-393) U/L TSH Cancelled (0.300-4.500) uIu/ml Ethyl Alcohol mg/dL (0-3) mg/dl 08/17/19 08/17/19 Range/Units 18:29 19:37 WBC (4.8-10.8) K/uL RBC (4.2-5.4) M/uL Hgb (12.0-16.0) g/dL Hct (37-47) % MCV (80-100) fL MCH (25-34) pg MCHC (32-36) g/dL RDW Std Deviation (36.4-46.3) fL RDW Coeff of Taye (11.5-14.5) % Plt Count (130-400) K/uL MPV (7.4-10.4) fL Immature Gran % (Auto) % Neut % (Auto) % Lymph % (Auto) % [place] % (Auto) % Eos % (Auto) % Baso % (Auto) % Immature Gran # (Auto) (0.00-0.02) K/uL Neut # (Auto) (1.4-6.5) K/uL Lymph # (Auto) (1.2-3.4) K/uL [place] # (Auto) (0.11-0.59) K/uL Eos # (Auto) (0-0.5) K/uL Baso # (Auto) (0-0.2) K/uL PT (9.0-12.0) Seconds INR (0.9-1.1) APTT (21.0-31.0) Seconds PTT Ratio Sodium (136-145) mmol/L Potassium (3.5-5.1) mmol/L Chloride (98-107) mmol/L Carbon Dioxide (21-32) mmol/L Anion Gap (3-11) BUN (7-18) mg/dl Creatinine (0.6-1.2) mg/dl Est Cr Clr Drug Dosing ml/min Est GFR ( Amer) Est GFR (Non-Af Amer) BUN/Creatinine Ratio (10-20) Glucose (70-99) mg/dl Lactate 4.6 H* Calcium (8.5-10.1) mg/dl Magnesium (1.8-2.4) mg/dl Total Bilirubin (0.2-1) mg/dl AST (15-37) U/L ALT (12-78) U/L Alkaline Phosphatase (45-117) U/L Total Creatine Kinase (26-192) U/L Total Protein (6.4-8.2) gm/dl Albumin (3.4-5.0) gm/dl Globulin (2.5-4.0) gm/dl Albumin/Globulin Ratio (0.9-2) Lipase (73-393) U/L TSH (0.300-4.500) uIu/ml Ethyl Alcohol mg/dL 148.0 H (0-3) mg/dl Imaging Data Radiologist's Impression: Radiology results as stated below per my review and the radiologist's interpretation: CT abd pelvis IV con only CLINICAL HISTORY: Generalized abdominal pain COMPARISON STUDY: 02/26/2018 TECHNIQUE: The patient was scanned in a dynamic helical fashion during intravenous administration of 92 cc of Optiray 3. A dose lowering technique was utilized adhering to the principles of ALARA. CT DOSE: 344.23 mGycm FINDINGS: Lower chest: There is a stable 7 mm left lower lobe pulmonary nodule. Also evident is a 3 mm left lower lobe pulmonary nodule, not included on the precedin g study. There is mild dependent atelectasis. Liver: There is hepatic steatosis with a more focal hypodense area involving the medial aspect of the left lobe, likely representing focal fat. The liver is enlarged measuring 23 cm. Gallbladder: Surgically absent. The common bile duct measures 7 mm Spleen: Normal in size and attenuation. Pancreas: Unremarkable. Adrenal glands: There is minor left adrenal gland thickening similar to the preceding study Kidneys: There is symmetric renal cortical enhancement. The kidneys are normal in size without hydronephrosis. Bowel: There is a hiatal hernia. There is a gastric bypass with a [place]-en-Y anastomosis. There are no transition zones indicate bowel obstruction. There is no evidence of acute diverticulitis. There are no findings to indicate acute appendicitis. The appendix is not visualized with certainty. Peritoneum: There is no intraperitoneal free air or abdominal ascites. There is a stable eggshell calcified nodule within the lower left anterior pelvis. This remains unchanged and is not felt to be of acute clinical significance Vasculature: The abdominal aorta is normal in course and caliber. Adenopathy: None. Pelvic viscera: The uterus appears surgically absent Skeletal structures: There is an old right-sided rib fracture. No destructive lesions are visualized IMPRESSION: 1. Postsurgical changes of a gastric bypass and [place]-en-Y anastomosis 2. No evidence of bowel obstruction. No evidence of free air 3. No evidence of diverticulitis. No evidence of acute appendicitis 4. Hiatal hernia 5. Hepatic steatosis and hepatomegaly Electronically signed by: Jevon Fitzpatrick M.D. 08/17/2019 7:07 PM Blood Pressure Blood Pressure Findings: Elevated blood pressure Blood Pressure Disposition: further management by hospitalist NILDA Ríos This is a 63-year-old female who presents emergency department over concerns that the patient has positive blood cultures. The patient was seen in the emergency department yesterday and started on doxycycline. She is intoxicated this evening. She was given pain medication here in the emergency department sent for CAT scan of the abdomen pelvis over concerns of her abdominal pain. Serial abdominal examinations were performed on the patient in the emergency d epartment and at no time the patient exhibited surgical abdomen. Patient was given Dilaudid here for her pain. Repeat examination revealed improvement the patient's symptoms. Patient was started on Zosyn as well as Levaquin here in the emergency department I did discuss the case with the hospitalist service who agreed to admit the patient. Patient was in agreement with the treatment plan. Impression & Plan Abscess, Abdominal pain Discharge Plan Visit Data *Final* Discharge Date/Time: 08/17/19 21:42 Chief Complaint: Abdominal Pain Stated Complaint: ABNORMAL LABS ED Provider: Asif Aguirre Discharge Problem: Abscess, Abdominal pain Patient Disposition: Admitted As Inpatient Discharge Instructions Interventions: ED Discharge Assessment Last Done: 08/17/19 21:42 The scribe's documentation has been prepared under my direction and personally reviewed by me in its entirety. I confirm that the note above accurately reflects all work, treatment, procedures, and medical decision making performed by me.
[2019-08-19] MEDS: MoRPHine SULFATE 2 MG/ML CARP IV PRN ×3 (05:40→20:11)
[2019-08-19] MEDS: SUCRALFATE 1 GM TAB PO SCH ×4 (05:41→20:13)
--- NOTE | 2019-08-19 06:26 | Progress Note ---
Date of Service August 19, 2019 Assessment & Plan (1) Gram positive sepsis: s/p excision of soft tissue infection Lt axilla- gm st- gm pos cocci some pain- dressing in place- can chg this am suspect will grow MRSA will need wound vac at some point in near future Results & Data Vital Signs (Past 12 Hours) Vital Signs Temp Pulse Pulse Resp BP Pulse Ox 08/19/19 00:00 36.8 C 78 20 134/62 93 08/18/19 22:20 77 08/18/19 19:28 36.8 C 75 20 153/82 H 95 PG Care Time/CCT Total # of Minutes Spent Total Time Spent with Patient: Total time spent is greater than 50% in coordination of care (as documented) at patient's floor/unit and/or counseling patient:
[2019-08-19 07:05] LABS: Est GFR (African American) 102.3; Est GFR (Non-African American) 88.3
[2019-08-19] MEDS: INSULIN ASPART 100 UNITS/ML 3 ML PEN SC SCH ×4 (09:38→20:36)
[2019-08-19] MEDS: PROMETHAZINE HCL 12.5 MG in SODIUM CHLORIDE 0.9% 50 ML IV PRN (10:40)
[2019-08-19 10:43] LABS: BUN Creatinine Ratio 5.8 (10-20); Est GFR (African American) 108.1; Est GFR (Non-African American) 93.3; Potassium 3.8 mmol/L (3.5-5.1)
--- NOTE | 2019-08-19 10:45 | Gastrointestinal Consultation ---
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 She notes her emesis was brown and denies any hematemesis/coffee ground emesis. No BM since admission, suggests prior stools were formed, brown stool - IV PPI BID - Continue Cytotec - Continue Carafate - Trend HGB - Monitor and document all GI output - Transfuse PRN HGB < 8 - Anti-emetics PRN - ETOH cessation - ETOH withdrawal protocol - Stop smoking - No NSAIDs - Follow up with [facility] as OP to discuss revision - Check lipase/LFTs Thank you for allowing us to participate in the care of this patient. Please call with any acute changes, questions or concerns. Please see addendum below with additional recommendation from my supervising physician. Present on Admission?: Yes Supervising Physician Co-Signing Physician Notes I have performed a history and physical examination of this patient and reviewed the electronic medical record. Specifically, on physical examination there is mild epigastric tenderness. I have discussed the case with ERIC Galarza. The above note reflects my findings, conclusions, and recommendations. Anoop Christian MD History of Present Illness Reason for Consultation: ?hematemesis Requesting Physician: Freddy Attending Physician: Kari Hayes, DO History of Present Illness 63 year old female with history of T2DM, dyslipidemia, HTN, hypothyroidism, obesity s/p RYGB w/ anastomotic ulcer who presented through the ED for abd pain, abscess under her arm that grew out positive blood culture - GI asked for evaluation for abd pain, vomiting. Pt was seen and evaluated, chart reviewed. She endorses chronic upper abdominal pain. She is maintained on PPI BID, carafate QID and cytotec QID but is often symptomatic w/ reflux/regurgitation. EGD: Normal upper third of esophagus, middle third of esophagus and lower third of esophagus.Z-line regular, 35 cm from the incisors.Normal mucosa was found in the entire stomach. Large deep anastomotic ulcer with no stigmata of bleeding.Biopsied. Gastric bypass with a normal-sized pouch and intact staple line. Gastrojejunal anastomosis characterized by ulceration see above). Normal examined jejunum. Allergies Allergy/AdvReac Type Severity Reaction Status Date / Time Sulfa (Sulfonamide Allergy Severe FACE/THROAT Verified 08/17/19 19:29 Antibiotics) SWELL UP Home Medications Home Medications Medication Instructions Recorded Confirmed Type nortriptyline 25 mg PO HS 10/24/18 08/17/19 History cyanocobalamin (vitamin B-12) 500 mcg PO DAILY 08/16/19 08/17/19 History [Vitamin B-12] doxycycline hyclate 100 mg PO BID 10 Days #20 tab 08/16/19 08/17/19 Rx duloxetine [Cymbalta] 30 mg PO BID 08/16/19 08/17/19 History esomeprazole magnesium [Nexium] 40 mg PO DAILY 08/16/19 08/17/19 History folic acid 1 mg PO DAILY 08/16/19 08/17/19 History gabapentin 300 mg PO TID 08/16/19 08/17/19 History misoprostol [Cytotec] 100 mcg PO QID 08/16/19 08/17/19 History ondansetron HCl 4 mg PO Q8 PRN 08/16/19 08/17/19 History sucralfate [Carafate] 1 g PO ACHS 08/16/19 08/17/19 History Patient History Medical History Anemia, iron deficiency (Chronic) Small bowel obstruction (Resolved) Ulcer GI Surgical History Status post gastric bypass for obesity (Chronic) Status post cholecystectomy (Chronic) Status post hysterectomy (Chronic) Status post appendectomy (Chronic) History of incision and drainage (08/18/19) Left Axillary Abscess Incision and Drainage Dr. 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 Beliefs That Will Affect Care: None Current Living Situation: Alone Other Information That Helps Us Care for You: No Feels Safe at Home: Yes Safety Concerns: Feels Safe At This Time Smoking Status: Former smoker Tobacco Type: cigarettes ; Do You Dip or Chew Tobacco: No ; Second Hand Exposure: Yes ; Hx Alcohol Use: Yes Alcohol type: hard liquor Hx Substance Use: No Review of Systems Constitutional: no fever and no chills Respiratory: no cough and no dyspnea Cardiovascular: no chest pain and no radiating jaw, neck or arm pain Gastrointestinal: + abdominal pain, + nausea and + vomiting; no coffee ground emesis, no hematemesis, no cramping, no blood in stools and no melena Physical Exam Constitutional: well developed, well nourished and + ill appearing (chronically ill); no acute distress Respiratory: normal respiratory effort, lungs clear to auscultation Cardiovascular: Rate/Rhythm: regular rate Gastrointestinal (Abdomen): Percussion/Palpation: + abdomen tender and abdomen soft; no guarding and abdomen not rigid Skin: no rashes, warm and dry Results & Data Vital Signs (Past 12 Hours) Vital Signs Temp Pulse Pulse Resp BP Pulse Ox 08/19/19 08:45 101 H 20 122/69 91 08/19/19 07:40 88 08/19/19 00:00 36.8 C 78 20 134/62 93 Laboratory Results 08/19/19 08/19/19 08/19/19 Range/Units 07:41 06:13 06:13 WBC 5.55 (4.8-10.8) K/uL RBC 3.40 L (4.2-5.4) M/uL Hgb 10.1 L (12.0-16.0) g/dL Hct 31.5 L (37-47) % MCV 92.6 (80-100) fL MCH 29.7 (25-34) pg MCHC 32.1 (32-36) g/dL RDW Std Deviation 59.3 H (36.4-46.3) fL RDW Coeff of Taye 17.6 H (11.5-14.5) % Plt Count 214 (130-400) K/uL MPV 8.8 (7.4-10.4) fL Sodium 139 (136-145) mmol/L Potassium 3.8 (3.5-5.1) mmol/L Chloride 106 (98-107) mmol/L Carbon Dioxide 29 (21-32) mmol/L Anion Gap 4.0 (3-11) BUN 4 L (7-18) mg/dl Creatinine 0.69 (0.6-1.2) mg/dl Est Cr Clr Drug Dosing 73.0 ml/min Est GFR ( Amer) 108.1 Est GFR (Non-Af Amer) 93.3 BUN/Creatinine Ratio 5.8 L (10-20) Glucose 80 (70-99) mg/dl POC Glucose 82 (70-99) Calcium 8.0 L (8.5-10.1) mg/dl Magnesium 2.0 (1.8-2.4) mg/dl 08/19/19 08/18/19 08/18/19 Range/Units 06:10 20:05 16:09 WBC (4.8-10.8) K/uL RBC (4.2-5.4) M/uL Hgb (12.0-16.0) g/dL Hct (37-47) % MCV (80-100) fL MCH (25-34) pg MCHC (32-36) g/dL RDW Std Deviation (36.4-46.3) fL RDW Coeff of Taye (11.5-14.5) % Plt Count (130-400) K/uL MPV (7.4-10.4) fL Sodium (136-145) mmol/L Potassium (3.5-5.1) mmol/L Chloride (98-107) mmol/L Carbon Dioxide (21-32) mmol/L Anion Gap (3-11) BUN (7-18) mg/dl Creatinine 0.73 (0.6-1.2) mg/dl Est Cr Clr Drug Dosing 69.0 ml/min Est GFR ( Amer) 102.3 Est GFR (Non-Af Amer) 88.3 BUN/Creatinine Ratio (10-20) Glucose (70-99) mg/dl POC Glucose 113 H 103 H (70-99) Calcium (8.5-10.1) mg/dl Magnesium (1.8-2.4) mg/dl 08/18/19 Range/Units 13:49 WBC (4.8-10.8) K/uL RBC (4.2-5.4) M/uL Hgb (12.0-16.0) g/dL Hct (37-47) % MCV (80-100) fL MCH (25-34) pg MCHC (32-36) g/dL RDW Std Deviation (36.4-46.3) fL RDW Coeff of Taye (11.5-14.5) % Plt Count (130-400) K/uL MPV (7.4-10.4) fL Sodium (136-145) mmol/L Potassium (3.5-5.1) mmol/L Chloride (98-107) mmol/L Carbon Dioxide (21-32) mmol/L Anion Gap (3-11) BUN (7-18) mg/dl Creatinine (0.6-1.2) mg/dl Est Cr Clr Drug Dosing ml/min Est GFR ( Amer) Est GFR (Non-Af Amer) BUN/Creatinine Ratio (10-20) Glucose (70-99) mg/dl POC Glucose 94 (70-99) Calcium (8.5-10.1) mg/dl Magnesium (1.8-2.4) mg/dl
[2019-08-19 10:50] LABS: Hematocrit (blood only) 31.5 % (37-47); Hemoglobin 10.1 g/dL (12.0-16.0); Mean Corpuscular Hemoglobin 29.7 pg (25-34); Mean Corpuscular Hgb Conc 32.1 g/dL (32-36); Mean Corpuscular Volume 92.6 fL (80-100); Mean Platelet Volume 8.8 fL (7.4-10.4); Platelet Count 214 K/uL (130-400); RDW Coefficient of Variation 17.6 % (11.5-14.5); RDW Standard Deviation 59.3 fL (36.4-46.3); White Blood Count 5.55 K/uL (4.8-10.8)
[2019-08-19] MEDS: DULOXETINE HCL 30 MG CAP PO SCH ×2 (11:34→20:12)
[2019-08-19] MEDS: THIAMINE HCL 100 MG TAB PO SCH (11:35)
[2019-08-19] MEDS: CYANOCOBALAMIN 500 MCG TABLET (VITAMIN B-12) PO SCH (11:35)
[2019-08-19] MEDS: FOLIC ACID 1 MG TAB PO SCH (11:35)
[2019-08-19] MEDS: PANTOprazole 40 MG TAB PO SCH (11:35)
[2019-08-19] MEDS: GABAPENTIN 300 MG CAP PO SCH ×3 (11:35→20:12)
--- NOTE | 2019-08-19 13:40 | Hospitalist Progress Note ---
Date of Service August 19, 2019 Assessment & Plan (1) Bacteremia: Secondary to abscess on left chest wall. Patient is not septic. Continues on daptomycin. ID consulted. Recovering well status post I&D. (2) Syncope: Uncertain etiology. Sinus rhythm on telemetry review overnight. She is a heavy alcohol user although currently denying this. Sister reports visible intoxication just a few days ago and alcohol level was 180 on arrival. She does have a history of an anastomotic ulcer and is having some issues with nausea and vomiting. She has no history of seizures but this is also in the differential as the patient is somewhat postictal upon awakening. MRI of the brain revealed possible chronic microvascular disease versus demyelination in the setting of white matter visible on imaging. Will consult neurology for assistance with th is. Echo otherwise reveals no structural heart changes. Continue supportive care and treatment for current bacteremia infection. (3) Abscess: Status post I&D as above. (4) Status post gastric bypass for obesity: History of known anastomotic ulcer. Continue sucralfate and pantoprazole. (5) Alcohol abuse: History of alcohol abuse with evidence of recent drinking although patient denies this. May be contributing to development of GI ulcer and recurrent syncope. (6) DVT prophylaxis: SCDs/ambulation Full code Dispo-continue telemetry monitoring. Kari Hayes DO [facility] Hospitalist Subjective Doing well this morning. Pain is controlled in her surgical site with medications. Episode of questionable hematemesis this morning with a history of gastric bypass ulcer that is known. GI is being consulted. She endorses intermittent nausea and vomiting as well as intermittent abdominal pain in the epigastric region. Last EGD with dilation reported in January 2019 Review of Systems Review of Systems: All systems reviewed & are unremarkable except as noted in HPI & below Physical Exam Physical Exam: CONSTITUTIONAL: WNWD, vitals as above, generally well- appearing EYES: normal conjunctivae, no scleral icterus ENT: MMM RESPIRATORY: clear to auscultation bilaterally, no crackles, rales or wheezes, normal respiratory effort CARDIOVASCULAR: regular rate and rhythm, S1 and 2 heard without murmurs, ga llops or rubs, no JVD, no peripheral edema, no carotid bruits GASTROINTESTINAL: normal bowel sounds, soft, nontender, nondistended MUSCULOSKELETAL: strength 5/5 throughout, head is normocephalic and atraumatic SKIN: warm and dry, incision site in L axilla covered with clean, dry dressing. NEUROLOGIC: PERRL, EOMI, no facial palsy, no dysarthria. CN 2-12 grossly intact, no sensory deficit, normal cognition, normal speech, no tremor, no gross focal deficit PSYCHIATRIC: alert cooperative and oriented to person, place and time. Results & Data Vital Signs (Past 12 Hours) Vital Signs Temp Pulse Pulse Resp BP Pulse Ox 08/19/19 12:05 36.7 C 107 H 18 124/76 95 08/19/19 08:45 101 H 20 122/69 91 08/19/19 07:40 88 Laboratory Results Short CBC 08/19/19 Range/Units 06:13 WBC 5.55 (4.8-10.8) K/uL Hgb 10.1 L (12.0-16.0) g/dL Hct 31.5 L (37-47) % Plt Count 214 (130-400) K/uL BMP 08/19/19 08/19/19 06:10 06:13 Sodium 139 Potassium 3.8 Chloride 106 Carbon Dioxide 29 BUN 4 L Creatinine 0.73 0.69 Glucose 80 Calcium 8.0 L Medications Administered Current Inpatient Medications Acetaminophen (Tylenol) 325 mg PO Q6H PRN PRN Reason: Pain or Fever Stop: 09/16/19 22:04 Last Admin: 08/18/19 00:19 Dose: 325 mg Documented by: Hydrocodone Bitart/Acetaminophen ([place] 5/325) 2 tab PO 3XDQ4 PRN PRN Reason: Pain Stop: 09/01/19 12:21 Hydrocodone Bitart/Acetaminophen ([place] 5/325) 1 tab PO 3XDQ4 PRN PRN Reason: Pain Stop: 09/01/19 12:21 Cyanocobalamin (Vitamin B-12) 500 mcg PO DAILY BABAK Stop: 09/17/19 08:59 Last Admin: 08/19/19 11:35 Dose: Not Given Documented by: Dextrose (Dextrose 50%) 25 - 50 ml IV UD PRN; Protocol PRN Reason: Hypoglycemia Protocol Stop: 09/16/19 22:04 Duloxetine HCl (Cymbalta) 30 mg PO BID BABAK Stop: 09/16/19 22:04 Last Admin: 08/19/19 11:34 Dose: Not Given Documented by: Folic Acid (Folvite) 1 mg PO DAILY BABAK Stop: 09/17/19 08:59 Last Admin: 08/19/19 11:35 Dose: Not Given Documented by: Gabapentin (Neurontin) 300 mg PO TID BABAK Stop: 09/16/19 22:04 Last Admin: 08/19/19 11:35 Dose: Not Given Documented by: Gadobutrol (Gadavist 65ml) 5.7 ml IV ONCE PRN PRN Reason: Interaction Checking Stop: 08/22/19 03:09 Last Admin: 08/18/19 02:52 Dose: 5.7 ml Documented by: Glucagon (Glucagen) 1 mg SQ UD PRN; Protocol PRN Reason: Hypoglycemia Protocol Stop: 09/16/19 22:04 Glucose (Glucose 40%) 15 - 30 gm PO UD PRN; Protocol PRN Reason: Hypoglycemia Protocol Stop: 09/16/19 22:04 Glucose (Dex4 Glucose) 4 - 8 tabs PO UD PRN; Protocol PRN Reason: Hypoglycemia Protocol Stop: 09/16/19 22:04 Lorazepam (Ativan) 0.25 mg in 0.5 mls @ 0.5 mls/min IV Q4H PRN PRN Reason: Anxiety Stop: 09/16/19 22:04 Last Admin: 08/18/19 01:44 Dose: 0.5 mls/min Documented by: Daptomycin 350 mg/ Syringe 7 mls @ 3.5 mls/min IV Q24H BABAK; Protocol Stop: 08/31/19 17:59 Last Admin: 08/18/19 17:23 Dose: 3.5 mls/min Documented by: Promethazine HCl 12.5 mg/ (Sodium Chloride) 50.5 mls @ 204 mls/hr IV Q6H PRN PRN Reason: Nausea And Vomiting Stop: 09/17/19 12:21 Last Infusion: 08/19/19 10:55 Dose: Infused Documented by: Insulin Aspart (Novolog Flexpen) 0 units SC ACHS [facility] Stop: 09/16/19 23:44 Last Admin: 08/19/19 13:12 Dose: Not Given Documented by: Miscellaneous (Carbohydrates For Hypoglycemia) 15 - 30 gm PO UD PRN PRN Reason: Hypoglycemia Treatment Stop: 09/16/19 22:04 Miscellaneous Information (Consult) 1 ea N/A UD PRN PRN Reason: Consult Stop: 09/16/19 23:41 Morphine Sulfate (Morphine Sulfate) 1 mg IV 4XDQ3H PRN PRN Reason: Pain Stop: 09/01/19 12:21 Morphine Sulfate (Morphine Sulfate) 2 mg IV 4XDQ3H PRN PRN Reason: Pain Stop: 09/01/19 12:21 Last Admin: 08/19/19 05:40 Dose: 2 mg Documented by: Nortriptyline HCl (Pamelor) 25 mg PO HS [facility] Stop: 09/16/19 22:04 Last Admin: 08/18/19 20:55 Dose: 25 mg Documented by: Oxycodone HCl (Roxicodone Immediate Rel) 5 mg PO Q4H PRN PRN Reason: Pain Stop: 08/31/19 22:04 Pantoprazole Sodium (Protonix) 40 mg PO DAILY [facility] Stop: 09/17/19 08:59 Last Admin: 08/19/19 11:35 Dose: Not Given Documented by: Sucralfate (Carafate Tab) 1 gm PO ACHS [facility] Stop: 09/16/19 22:04 Last Admin: 08/19/19 13:12 Dose: 1 gm Documented by: Thiamine HCl (Vitamin B-1) 100 mg PO QAM [facility] Stop: 09/17/19 08:59 Last Admin: 08/19/19 11:35 Dose: Not Given Documented by:
--- NOTE | 2019-08-19 14:12 | Infectious Disease Progress Nt ---
Date of Service August 19, 2019 Assessment & Plan (1) Gram positive sepsis: continue dapto, suspect MRSA bsi. will need echo. follow repeat cultures, negative to date. follow OR findings. will follow. (2) Abscess: Subjective pt s/p I&D left axillary abscess, tolerated well. afebrile. initial blood cultures 08/16 growing staph species, I&D culture from ER growing MRSA, on dapto, tolerating well. repeat cultures negative to date. Results & Data Vital Signs (Past 12 Hours) Vital Signs Temp Pulse Pulse Resp BP Pulse Ox 08/19/19 12:05 36.7 C 107 H 18 124/76 95 08/19/19 08:45 101 H 20 122/69 91 08/19/19 07:40 88 Laboratory Results Microbiology 08/18/19 12:09 Axilla,Left Gram Stain - Final 08/18/19 12:09 Axilla,Left Aerobic and Anaerobic Culture - Preliminary Staphylococcus aureus 08/17/19 18:26 Blood Aerobic Blood Culture - Preliminary No growth in Aerobic bottle after 24 hours. 08/17/19 18:26 Blood Anaerobic Blood Culture - Preliminary No growth in Anaerobic bottle after 24 hours. 08/17/19 18:29 Blood Aerobic Blood Culture - Preliminary No growth in Aerobic bottle after 24 hours. 08/17/19 18:29 Blood Anaerobic Blood Culture - Preliminary No growth in Anaerobic bottle after 24 hours. PG Care Time/CCT Total # of Minutes Spent Total Time Spent with Patient: Total time spent is greater than 50% in coordination of care (as documented) at patient's floor/unit and/or counseling patient:
--- NOTE | 2019-08-19 16:20 | Neurology Consultation ---
Date of Consultation August 19, 2019 Assessment & Plan (1) Syncope: 1. white matter changes on MRI likely chronic findings 2. orthostatics- if not already done 3. correct lytes other correctable issues 4. + blood cultures- treat to culture and sensitivity- ID involved 5. ongoing GI issues -GI consulted on board 6. once patients other issues are corrected - if ongoing syncope can be worked up as outpatient will be available as needed. Supervising Physician Co-Signing Physician Notes Patient was seen and examined. Agree with Ro Parks PA-C. I believe this patient likely has pre-syncopal / vasovagal episodes likely from poor PO intake, bactermia, dehydration (chronic alcohol use) , and probable autonomic dysfunction. Episodes are positional and aborted with sitting down. Denies incontinence of tongue biting. MRI brain reviewed and shows diffuse patchy subcortical hyperintensities which are non specific. I do not believe this patient has MS. Routine EEG was Normal. - Will defer to primary for treatment of sepsis/bacteremia - Discussed with patient that staying hydrated, avoiding alcohol, and regular meals may help. - Recommend patient monitor blood pressures at home - Agree with telemetry while inpatient. - Recommend starting Thiamine Please call me with any further questions. History of Present Illness Reason for Consultation: Syncope Requesting Physician: Kari Hayes DO Attending Physician: Kari Hayes DO History of Present Illness Nicole is a 63 year old female PMH HTN, HLD, DM diet controlled, hx bariatric surgery, hx PUD, past EtOH abuse/tobacco abuse, mood disorder, chronic MEHRAN baseline Hgb 11. After the bipass surgery she had a poor appetite, generalized abdominal pain, N, V. She had significant weight loss. She had a history of passing out episodes. She states this happens when she is walking and if she stops and sits down she can abort the passing out. other bhatia she gets weak in her legs and dizzy and then passes out. She is not confused after arrieta and does not bite her tongue or wet herself. She states they did orthostatic blood pressure and she felt light headed with standing. She was admitted with a lesion with white drainage and started on doxycycline for the abscess. Blood cultures grew gram positive cocci in clusters. denies CP, SOB, current abdominal pain, one sided weakness, numbness tingling, vision changes, +swallowing issues. Allergies Allergy/AdvReac Type Severity Reaction Status Date / Time Sulfa (Sulfonamide Allergy Severe FACE/THROAT Verified 08/17/19 19:29 Antibiotics) SWELL UP Home Medications Home Medications Medication Instructions Recorded Confirmed Type nortriptyline 25 mg PO HS 10/24/18 08/17/19 History cyanocobalamin (vitamin B-12) 500 mcg PO DAILY 08/16/19 08/17/19 History [Vitamin B-12] doxycycline hyclate 100 mg PO BID 10 Days #20 tab 08/16/19 08/17/19 Rx duloxetine [Cymbalta] 30 mg PO BID 08/16/19 08/17/19 History esomeprazole magnesium [Nexium] 40 mg PO DAILY 08/16/19 08/17/19 History folic acid 1 mg PO DAILY 08/16/19 08/17/19 History gabapentin 300 mg PO TID 08/16/19 08/17/19 History misoprostol [Cytotec] 100 mcg PO QID 08/16/19 08/17/19 History ondansetron HCl 4 mg PO Q8 PRN 08/16/19 08/17/19 History sucralfate [Carafate] 1 g PO ACHS 08/16/19 08/17/19 History Patient History Medical History Anemia, iron deficiency (Chronic) Small bowel obstruction (Resolved) Ulcer GI Surgical History Status post gastric bypass for obesity (Chronic) Status post cholecystectomy (Chronic) Status post hysterectomy (Chronic) Status post appendectomy (Chronic) History of incision and drainage (08/18/19) Left Axillary Abscess Incision and Drainage Dr. 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 Beliefs That Will Affect Care: None Current Living Situation: Alone Other Information That Helps Us Care for You: No Feels Safe at Home: Yes Safety Concerns: Feels Safe At This Time Smoking Status: Former smoker Tobacco Type: cigarettes ; Do You Dip or Chew Tobacco: No ; Second Hand Exposure: Yes ; Hx Alcohol Use: Yes Alcohol type: hard liquor Hx Substance Use: No Physical Exam Physical Exam: Physical Exam: Constitutional: appearance thin pale, pleasant Ears, Nose, Mouth and Throat: mucous membranes moist, no injection and skin normal, eyes normal Cardiovascular: normal S-1 and S-2 and regular rate and rhythm Respiratory: course breath sounds Musculoskeletal: no peripheral edema and good distal pulses Skin: no stigmata of neurocutaneous disease noted and normal and intact Eyes: extraocular muscles intact (EOMI) and pupils equal, round and reactive to light (PERRL) NEUROLOGIC EXAMINATION: Mental status: Alert and interactive Oriented to full date and location Oriented to person Speech fluent with no evidence of aphasia Cranial Nerves smile eye brow raise symmetric Reflexes: Deep tendon reflexes were symmetrical and graded 2/5. down going toes Sensory: to light cool touch intact Coordination: finger to nose no bi pass Gait/Stance: Posture lying in bed Motor: Negative for pronator drift of out stretched arms with eyes closed. Strength: hand equipment operating engineer biceps triceps 5/5 bilaterally hip flex patellar plantar flex ext 5/5 bilaterally Results & Data Vital Signs (Past 12 Hours) Vital Signs Temp Pulse Pulse Resp BP Pulse Ox 08/19/19 12:05 36.7 C 107 H 18 124/76 95 08/19/19 08:45 101 H 20 122/69 91 08/19/19 07:40 88 Laboratory Results Abnormal lab results 08/18/19 08/18/19 08/19/19 Range/Units 16:09 20:05 06:13 RBC 3.40 L (4.2-5.4) M/uL Hgb 10.1 L (12.0-16.0) g/dL Hct 31.5 L (37-47) % RDW Std Deviation 59.3 H (36.4-46.3) fL RDW Coeff of Taye 17.6 H (11.5-14.5) % BUN (7-18) mg/dl BUN/Creatinine Ratio (10-20) POC Glucose 103 H 113 H (70-99) Calcium (8.5-10.1) mg/dl 08/19/19 Range/Units 06:13 RBC (4.2-5.4) M/uL Hgb (12.0-16.0) g/dL Hct (37-47) % RDW Std Deviation (36.4-46.3) fL RDW Coeff of Taye (11.5-14.5) % BUN 4 L (7-18) mg/dl BUN/Creatinine Ratio 5.8 L (10-20) POC Glucose (70-99) Calcium 8.0 L (8.5-10.1) mg/dl Diagnostic Findings CT abd/pelvis- Postsurgical changes of a gastric bypass and [place] anastomosis No evidence of bowel obstruction. No evidence of free air No evidence of diverticulitis. No evidence of acute appendicitis Hiatal hernia Hepatic steatosis and hepatomegaly CXR- No active disease in the chest MRI brain-No evidence for an acute intracranial abnormality. Multiple foci of increased signal throughout both cerebral hemispheres suggesting either advanced chronic small vessel change versus a demyelinating disorder. No evidence for abnormal postcontrast enhancement.
[2019-08-19] MEDS: DAPTOmycin 350 MG in SYRINGE 0 ML IV SCH (17:49)
[2019-08-19] MEDS: NORTRIPTYLINE HCL 25 MG CAP PO SCH (20:12)
[2019-08-20] MEDS ORDERED: ONDANSETRON INJ 2 MG/ML 2 ML VIAL IV PRN (06:11)
[2019-08-20] MEDS: MoRPHine SULFATE 2 MG/ML CARP IV PRN (06:37)
[2019-08-20 07:25] LABS: Albumin Level 1.8 gm/dl (3.4-5.0); Bilirubin Direct 0.3 mg/dl (0-0.2); Est GFR (African American) 102.3; Est GFR (Non-African American) 88.3
[2019-08-20 07:27] LABS: Bilirubin,Total 0.7 mg/dl (0.2-1); Total Protein 4.7 gm/dl (6.4-8.2)
--- NOTE | 2019-08-20 08:09 | Gastroenterology Progress Note ---
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 She notes her emesis was brown and denies any hematemesis/coffee ground emesis. No BM since admission, suggests prior stools were formed, brown stool - IV PPI BID x 48 hours then back to PO BID - Trend HGB - Monitor and document all GI output - Transfuse PRN HGB < 8 - Anti-emetics PRN - ETOH cessation - ETOH withdrawal protocol - Stop smoking - No NSAIDs - Follow up with [facility] as OP to discuss revision Will sign off. Thank you for allowing us to participate in the care of this patient. Please call with any acute changes, questions or concerns. Please see addendum below with additional recommendation from my supervising physician. Supervising Physician Co-Signing Physician Notes I have performed a history and physical examination of this patient and reviewed the electronic medical record. Specifically, on history she is tolerating full liquids. Will plan EGD with dilation tomorros. I have discussed the case with ERIC Galarza. The above note reflects my findings, conclusions, and recommendations. Anoop Christian MD Subjective Pt was seen and evaluated, chart reviewed. No acute events noted over night Notes symptoms improved from GI standpoint No abd pain, nausea/vomiting since initial episode yesterday AM Tolerating full liquids diet Has not moved bowels - denies prior episodes of melena/BRB No fever, chills, CP, SOB. Review of Systems Constitutional: no fever, no chills and no fatigue Respiratory: no cough and no dyspnea Cardiovascular: no chest pain and no radiating jaw, neck or arm pain Gastrointestinal: no abdominal pain, no heartburn, no nausea, no vomiting, no coffee ground emesis, no blood in stools and no melena Physical Exam Constitutional: well nourished; no acute distress Respiratory: normal respiratory effort, lungs clear to auscultation Cardiovascular: Rate/Rhythm: regular rate Gastrointestinal (Abdomen): normal bowel sounds, soft, nontender, no hepatosplenomegaly Results & Data Vital Signs (Past 12 Hours) Vital Signs Temp Pulse Pulse Pulse Resp BP BP 08/20/19 07:58 79 08/20/19 07:52 36.9 C 78 16 117/70 08/20/19 04:24 37.0 C 83 20 119/63 08/20/19 01:00 85 08/19/19 23:16 36.8 C 96 H 20 112/62 Pulse Ox 08/20/19 07:58 08/20/19 07:52 91 08/20/19 04:24 92 08/20/19 01:00 08/19/19 23:16 92
[2019-08-20] MEDS: SUCRALFATE 1 GM TAB PO SCH ×4 (08:38→19:47)
[2019-08-20] MEDS: PANTOprazole 40 MG TAB PO SCH (08:38)
[2019-08-20] MEDS: THIAMINE HCL 100 MG TAB PO SCH (08:39)
[2019-08-20] MEDS: CYANOCOBALAMIN 500 MCG TABLET (VITAMIN B-12) PO SCH (08:39)
[2019-08-20] MEDS: DULOXETINE HCL 30 MG CAP PO SCH ×2 (08:39→19:47)
[2019-08-20] MEDS: FOLIC ACID 1 MG TAB PO SCH (08:39)
[2019-08-20] MEDS: GABAPENTIN 300 MG CAP PO SCH ×3 (08:40→19:47)
[2019-08-20] MEDS: INSULIN ASPART 100 UNITS/ML 3 ML PEN SC SCH ×4 (08:41→20:20)
--- NOTE | 2019-08-20 14:06 | Infectious Disease Progress Nt ---
Date of Service August 20, 2019 Assessment & Plan (1) Gram positive sepsis: continue dapto,blood cultures from ER on 08/16 now growing CENTERLESS GRINDER, not MRSA, suspect skin contaminant. follow repeat cultures, negative to date. can continue Dapto while in hospital. upon d/c can change to po doxy 100mg po bid, would give 21 days. will need ongoing wound care post d/c. can follow with ID post d/c. no contraindication to d/c from ID standpoint when otherwise stable. (2) Abscess: Subjective s/p I&D, OR cultures growing MRSA as well. afebrile. remains on dapto, toleraitng well. 08/17 blood cultures negative to date. Results & Data Vital Signs (Past 12 Hours) Vital Signs Temp Pulse Pulse Pulse Resp BP BP 08/20/19 12:08 36.8 C 85 18 120/70 08/20/19 07:58 79 08/20/19 07:52 36.9 C 78 16 117/70 08/20/19 04:24 37.0 C 83 20 119/63 Pulse Ox 08/20/19 12:08 94 08/20/19 07:58 08/20/19 07:52 91 08/20/19 04:24 92 Laboratory Results Microbiology 08/18/19 12:09 Axilla,Left Gram Stain - Final 08/18/19 12:09 Axilla,Left Aerobic and Anaerobic Culture - Preliminary Staph aureus MRSA 08/17/19 18:26 Blood Aerobic Blood Culture - Preliminary No growth in Aerobic bottle after 48 hours. 08/17/19 18:26 Blood Anaerobic Blood Culture - Preliminary No growth in Anaerobic bottle after 48 hours. 08/17/19 18:29 Blood Aerobic Blood Culture - Preliminary No growth in Aerobic bottle after 48 hours. 08/17/19 18:29 Blood Anaerobic Blood Culture - Preliminary No growth in Anaerobic bottle after 48 hours. PG Care Time/CCT Total # of Minutes Spent Total Time Spent with Patient: Total time spent is greater than 50% in coordination of care (as documented) at patient's floor/unit and/or counseling patient:
--- NOTE | 2019-08-20 16:51 | Hospitalist Progress Note ---
Date of Service August 20, 2019 Assessment & Plan (1) Bacteremia: Secondary to abscess on left chest wall. Patient is not septic. Continues on daptomycin. ID consulted. Wound vac in place and doing well. Pain controlled. (2) Syncope: Recurrent syncope reported. Uncertain with possible etiologies including but not limited to pre-syncopal / vasovagal episodes likely from poor PO intake, bacteremia, dehydration (chronic alcohol use) , and probable autonomic dysfunction. Episodes are positional and aborted with sitting down. Denies incontinence or tongue biting and EEG this admission was negative for epileptic discharge. MRI brain reviewed and shows diffuse patchy subcortical hyperintensities which are non specific. Neuro does not feel this patient has MS. Cont current treatment plan. (3) Abscess: Status post I&D as above. (4) Status post gastric bypass for obesity: History of known anastomotic ulcer with episode of hematemesis here in the hospital. Plan for EGD/CSP in am. Continue sucralfate and pantoprazole. (5) Alcohol abuse: History of alcohol abuse with evidence of recent drinking although patient denies this. May be contributing to development of GI ulcer and recurrent syncope. (6) DVT prophylaxis: SCDs/ambulation Full code Dispo-continue telemetry monitoring. Kari Hayes DO [facility] Hospitalist Subjective feeling well, EGD planned for am. Intermittent nausea and vomiting but for now is holding food down. Review of Systems Review of Systems: All systems reviewed & are unremarkable except as noted in HPI & below Physical Exam Physical Exam: CONSTITUTIONAL: WNWD, vitals as above, generally well- appearing EYES: normal conjunctivae, no scleral icterus ENT: oropharynx clear RESPIRATORY: clear to auscultation bilaterally, no crackles, rales or wheezes, normal respiratory effort CARDIOVASCULAR: regular rate and rhythm, S1 and 2 heard without murmurs, gallops or rubs, no JVD, no peripheral edema GASTROINTESTINAL: normal bowel sounds, soft, nontender, nondistended MUSCULOSKELETAL: strength 5/5 throughout, head is normocephalic and atraumatic SKIN: warm and dry, incision site in L axilla with wound vac intact NEUROLOGIC: CN 2-12 grossly intact, no sensory deficit, normal cognition, normal speech, saw her ambulate without issue today carrying her wound vac. No gross focal deficits. PSYCHIATRIC: alert cooperative and oriented to person, place and time. Results & Data Vital Signs (Past 12 Hours) Vital Signs Temp Pulse Pulse Resp BP BP Pulse Ox 08/20/19 16:03 36.9 C 78 19 120/71 95 08/20/19 12:08 36.8 C 85 18 120/70 94 08/20/19 07:58 79 08/20/19 07:52 36.9 C 78 16 117/70 91 Laboratory Results BMP 08/20/19 06:23 Creatinine 0.73 Liver Function 08/20/19 Range/Units 06:23 Total Bilirubin 0.7 (0.2-1) mg/dl Direct Bilirubin 0.3 H (0-0.2) mg/dl AST 78 H (15-37) U/L ALT 70 (12-78) U/L Alkaline Phosphatase 172 H (45-117) U/L Albumin 1.8 L (3.4-5.0) gm/dl Medications Administered Current Inpatient Medications Acetaminophen (Tylenol) 325 mg PO Q6H PRN PRN Reason: Pain or Fever Stop: 09/16/19 22:04 Last Admin: 08/18/19 00:19 Dose: 325 mg Documented by: Hydrocodone Bitart/Acetaminophen ([place] 5/325) 2 tab PO 3XDQ4 PRN PRN Reason: Pain Stop: 09/01/19 12:21 Hydrocodone Bitart/Acetaminophen ([place] 5/325) 1 tab PO 3XDQ4 PRN PRN Reason: Pain Stop: 09/01/19 12:21 Cyanocobalamin (Vitamin B-12) 500 mcg PO DAILY BABAK Stop: 09/17/19 08:59 Last Admin: 08/20/19 08:39 Dose: 500 mcg Documented by: Dextrose (Dextrose 50%) 25 - 50 ml IV UD PRN; Protocol PRN Reason: Hypoglycemia Protocol Stop: 09/16/19 22:04 Duloxetine HCl (Cymbalta) 30 mg PO BID BABAK Stop: 09/16/19 22:04 Last Admin: 08/20/19 08:39 Dose: 30 mg Documented by: Folic Acid (Folvite) 1 mg PO DAILY BABAK Stop: 09/17/19 08:59 Last Admin: 08/20/19 08:39 Dose: 1 mg Documented by: Gabapentin (Neurontin) 300 mg PO TID BABAK Stop: 09/16/19 22:04 Last Admin: 08/20/19 14:44 Dose: 300 mg Documented by: Gadobutrol (Gadavist 65ml) 5.7 ml IV ONCE PRN PRN Reason: Interaction Checking Stop: 08/22/19 03:09 Last Admin: 08/18/19 02:52 Dose: 5.7 ml Documented by: Glucagon (Glucagen) 1 mg SQ UD PRN; Protocol PRN Reason: Hypoglycemia Protocol Stop: 09/16/19 22:04 Glucose (Glucose 40%) 15 - 30 gm PO UD PRN; Protocol PRN Reason: Hypoglycemia Protocol Stop: 09/16/19 22:04 Glucose (Dex4 Glucose) 4 - 8 tabs PO UD PRN; Protocol PRN Reason: Hypoglycemia Protocol Stop: 09/16/19 22:04 Lorazepam (Ativan) 0.25 mg in 0.5 mls @ 0.5 mls/min IV Q4H PRN PRN Reason: Anxiety Stop: 09/16/19 22:04 Last Admin: 08/18/19 01:44 Dose: 0.5 mls/min Documented by: Daptomycin 350 mg/ Syringe 7 mls @ 3.5 mls/min IV Q24H BABAK; Protocol Stop: 08/31/19 17:59 Last Admin: 08/19/19 17:49 Dose: 3.5 mls/min Documented by: Promethazine HCl 12.5 mg/ (Sodium Chloride) 50.5 mls @ 204 mls/hr IV Q6H PRN PRN Reason: Nausea And Vomiting Stop: 09/17/19 12:21 Last Infusion: 08/19/19 10:55 Dose: Infused Documented by: Insulin Aspart (Novolog Flexpen) 0 units SC ACHS BABAK Stop: 09/16/19 23:44 Last Admin: 08/20/19 12:51 Dose: 1 units Documented by: Miscellaneous (Carbohydrates For Hypoglycemia) 15 - 30 gm PO UD PRN PRN Reason: Hypoglycemia Treatment Stop: 09/16/19 22:04 Miscellaneous Information (Consult) 1 ea N/A UD PRN PRN Reason: Consult Stop: 09/16/19 23:41 Morphine Sulfate (Morphine Sulfate) 1 mg IV 4XDQ3H PRN PRN Reason: Pain Stop: 09/01/19 12:21 Morphine Sulfate (Morphine Sulfate) 2 mg IV 4XDQ3H PRN PRN Reason: Pain Stop: 09/01/19 12:21 Last Admin: 08/20/19 06:37 Dose: 2 mg Documented by: Nortriptyline HCl (Pamelor) 25 mg PO HS [facility] Stop: 09/16/19 22:04 Last Admin: 08/19/19 20:12 Dose: 25 mg Documented by: Ondansetron HCl (Zofran) 4 mg IV 4XDQ4H PRN PRN Reason: Nausea Stop: 09/19/19 06:10 Oxycodone HCl (Roxicodone Immediate Rel) 5 mg PO Q4H PRN PRN Reason: Pain Stop: 08/31/19 22:04 Pantoprazole Sodium (Protonix) 40 mg PO DAILY [facility] Stop: 09/17/19 08:59 Last Admin: 08/20/19 08:38 Dose: 40 mg Documented by: Sucralfate (Carafate Tab) 1 gm PO ACHS [facility] Stop: 09/16/19 22:04 Last Admin: 08/20/19 15:52 Dose: 1 gm Documented by: Thiamine HCl (Vitamin B-1) 100 mg PO QAM [facility] Stop: 09/17/19 08:59 Last Admin: 08/20/19 08:39 Dose: 100 mg Documented by:
[2019-08-20] MEDS: DAPTOmycin 350 MG in SYRINGE 0 ML IV SCH (17:26)
[2019-08-20] MEDS: NORTRIPTYLINE HCL 25 MG CAP PO SCH (19:47)
--- NOTE | 2019-08-21 05:44 | Progress Note ---
Date of Service August 21, 2019 Assessment & Plan (1) Abscess: No further surgery planned cont with wound vac- f/u wound clinic [facility] per I/D as ordered d/c when ok with med team Results & Data Vital Signs (Past 12 Hours) Vital Signs Temp Pulse Pulse Resp BP Pulse Ox 08/20/19 19:00 37 C 81 18 130/70 96 08/20/19 18:33 80 PG Care Time/CCT Total # of Minutes Spent Total Time Spent with Patient: Total time spent is greater than 50% in coordination of care (as documented) at patient's floor/unit and/or counseling patient:
[2019-08-21 06:45] LABS: BUN Creatinine Ratio 6.6 (10-20); Calcium 7.6 mg/dl (8.5-10.1); Est GFR (African American) 108.1; Est GFR (Non-African American) 93.3; Magnesium 1.8 mg/dl (1.8-2.4); Potassium 3.9 mmol/L (3.5-5.1)
[2019-08-21 06:46] LABS: Phosphorus 2.3 mg/dl (2.5-4.9)
--- NOTE | 2019-08-21 08:12 | Gastroenterology Progress Note ---
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 She notes her emesis was brown and denies any hematemesis/coffee ground emesis. No BM since admission, suggests prior stools were formed, brown stool. NPO for EGD Please see prior notes for additional recommendations Thank you for allowing us to participate in the care of this patient. Please call with any acute changes, questions or concerns. Please see addendum below with additional recommendation from my supervising physician. (2) Status post gastric bypass for obesity: Supervising Physician Co-Signing Physician Notes I have performed a history and physical examination of this patient and reviewed the electronic medical record. Specifically, on physical examination there is no abdominal tenderness. EGD today. I have discussed the case with ERIC Galarza. The above note reflects my findings, conclusions, and recommendations. Anoop Christian MD Subjective Pt was seen and evaluated, chart reviewed No acute events overnight NPO for EGD No concerns Abd pain resolved No dysphagia Was tolerating full liquid diet No CP, SOB Review of Systems Constitutional: no fever and no chills Respiratory: no cough and no dyspnea Cardiovascular: no chest pain Gastrointestinal: no abdominal pain, no blood in stools and no melena Physical Exam Constitutional: WD/WN, vitals as above Neck: trachea midline Respiratory: normal respiratory effort Cardiovascular: Rate/Rhythm: regular rate Gastrointestinal (Abdomen): normal bowel sounds, soft, nontender, no hepato splenomegaly
[2019-08-21] MEDS: THIAMINE HCL 100 MG TAB PO SCH (09:32)
[2019-08-21] MEDS: FOLIC ACID 1 MG TAB PO SCH (09:32)
[2019-08-21] MEDS: DULOXETINE HCL 30 MG CAP PO SCH ×2 (09:32→20:47)
[2019-08-21] MEDS: SUCRALFATE 1 GM TAB PO SCH ×4 (09:32→20:44)
[2019-08-21] MEDS: GABAPENTIN 300 MG CAP PO SCH ×3 (09:32→20:47)
[2019-08-21] MEDS: PANTOprazole 40 MG TAB PO SCH (09:32)
[2019-08-21] MEDS: CYANOCOBALAMIN 500 MCG TABLET (VITAMIN B-12) PO SCH (09:33)
[2019-08-21] MEDS: INSULIN ASPART 100 UNITS/ML 3 ML PEN SC SCH ×4 (09:34→21:28)
--- NOTE | 2019-08-21 11:17 | Anesthesiology Consultation ---
Date of Service August 21, 2019 Assessment & Plan (1) Encounter for pre-operative examination: Chart Review Chart Review: Acceptable Risk for Surgery and Patient NOT seen in Pre Admission Testing Consults Requested none History Surgery Operation Date: 08/18/19 09:30 Proposed Procedures p Left Axillary Abscess Incision and Drainage - Rai Perdue MD, FACS Operation Date: 08/21/19 08:30 Proposed Procedures p Esophagogastroduodenoscopy Dr Chavez - Anoop Christian MD Height/Weight Height: 5 ft 4 in Weight: 58.8 kg Allergies Allergy/AdvReac Type Severity Reaction Status Date / Time Sulfa (Sulfonamide Allergy Severe FACE/THROAT Verified 08/17/19 19:29 Antibiotics) SWELL UP Medications Home Medications Medication Instructions Recorded Confirmed Last Taken nortriptyline 25 mg PO HS 10/24/18 08/17/19 08/16/19 cyanocobalamin (vitamin B-12) 500 mcg PO DAILY 08/16/19 08/17/19 08/16/19 [Vitamin B-12] doxycycline hyclate 100 mg PO BID 10 Days #20 tab 08/16/19 08/17/19 08/16/19 duloxetine [Cymbalta] 30 mg PO BID 08/16/19 08/17/19 08/16/19 esomeprazole magnesium [Nexium] 40 mg PO DAILY 08/16/19 08/17/19 08/16/19 folic acid 1 mg PO DAILY 08/16/19 08/17/19 08/16/19 gabapentin 300 mg PO TID 08/16/19 08/17/19 08/16/19 misoprostol [Cytotec] 100 mcg PO QID 08/16/19 08/17/19 08/16/19 ondansetron HCl 4 mg PO Q8 PRN 08/16/19 08/17/19 08/17/19 sucralfate [Carafate] 1 g PO ACHS 08/16/19 08/17/19 08/16/19 Active Medications Generic Name Dose Route Start Last Admin Trade Name Freq PRN Reason Stop Dose Admin Acetaminophen 325 mg 08/17/19 22:05 08/18/19 00:19 Tylenol PO 09/16/19 22:04 325 mg Q6H PRN Administration Pain or Fever Hydrocodone Bitart/Acetaminophen 2 tab 08/18/19 12:22 08/20/19 21:58 [place] 5/325 PO 09/01/19 12:21 2 tab 3XDQ4 PRN Administration Pain Cyanocobalamin 500 mcg 08/18/19 09:00 08/21/19 09:33 Vitamin B-12 PO 09/17/19 08:59 Not Given DAILY [facility] Duloxetine HCl 30 mg 08/17/19 22:05 08/21/19 09:32 Cymbalta PO 09/16/19 22:04 Not Given BID [facility] Folic Acid 1 mg 08/18/19 09:00 08/21/19 09:32 Folvite PO 09/17/19 08:59 Not Given DAILY [facility] Gabapentin 300 mg 08/17/19 22:05 08/21/19 09:32 Neurontin PO 09/16/19 22:04 Not Given TID [facility] Gadobutrol 5.7 ml 08/18/19 03:10 08/18/19 02:52 Gadavist 65ml IV 08/22/19 03:09 5.7 ml ONCE PRN Administration Interaction Checking Lorazepam 0.25 mg in 0.5 mls @ 0.5 mls/min 08/17/19 22:05 08/18/19 01:44 Ativan IV 09/16/19 22:04 0.5 mls/min Q4H PRN Administration Anxiety Promethazine HCl 12.5 mg/ 50.5 mls @ 204 mls/hr 08/18/19 12:22 08/19/19 10:55 Sodium Chloride IV 09/17/19 12:21 Infused Q6H PRN Infusion Nausea And Vomiting Insulin Aspart 0 units 08/17/19 23:45 08/21/19 09:34 Novolog Flexpen SC 09/16/19 23:44 Not Given ACHS BABAK Morphine Sulfate 2 mg 08/18/19 12:22 08/20/19 06:37 Morphine Sulfate IV 09/01/19 12:21 2 mg 4XDQ3H PRN Administration Pain Nortriptyline HCl 25 mg 08/17/19 22:05 08/20/19 19:47 Pamelor PO 09/16/19 22:04 25 mg HS BABAK Administration Oxycodone HCl 5 mg 08/17/19 22:05 08/21/19 00:13 Roxicodone Immediate Rel PO 08/31/19 22:04 5 mg Q4H PRN Administration Pain Pantoprazole Sodium 40 mg 08/18/19 09:00 08/21/19 09:32 Protonix PO 09/17/19 08:59 Not Given DAILY [facility]ABAK Sucralfate 1 gm 08/17/19 22:05 08/21/19 09:32 Carafate Tab PO 09/16/19 22:04 Not Given ACHS BABAK Thiamine HCl 100 mg 08/18/19 09:00 08/21/19 09:32 Vitamin B-1 PO 09/17/19 08:59 Not Given QAM BABAK NPO Date Last Intake of Fluids: 08/18/19 Time Last Intake of Fluids: 08:00 Last Intake of Fluids Comment: 120 ml clear liquid breakfast, took am meds at 0900-- reported to OR staff Date Last Intake of Solids: 08/17/19 Time Last Intake of Solids: 20:00 Past Medical History Medical History Anemia, iron deficiency (Chronic) Small bowel obstruction (Resolved) Ulcer GI Past Family History Family History Other No pertinent family history in first degree relatives Past Surgical History Surgical History Status post gastric bypass for obesity (Chronic) Status post cholecystectomy (Chronic) Status post hysterectomy (Chronic) Status post appendectomy (Chronic) History of incision and drainage (08/18/19) Left Axillary Abscess Incision and Drainage Dr. Perdue 08/18/19 Social History Smoking Status: Former smoker tobacco type: cigarettes Do You Dip or Chew Tobacco: No Hx Alcohol Use: Yes Alcohol type: hard liquor alcohol intake frequency: other Alcohol Intake Frequency Comment: 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 Hx Substance Use: No Physical Exam Vital Signs Last Vital Signs Temp 37 C 08/20/19 19:00 Pulse 81 08/20/19 19:00 Resp 18 08/20/19 19:00 BP 130/70 08/20/19 19:00 Pulse Ox 96 08/20/19 19:00 Testing Laboratory Results 08/19/19 06:13 08/21/19 05:17 PT 10.4 Seconds (9.0-12.0) 10/13/19 18: INR 1.0 (0.9-1.1) 08/17/19 18:26 APTT 23.4 Seconds (21.0-31.0) 08/17/19 18:26 Urine Color Yellow 08/17/19 22:53 Urine Appearance Clear (Clear) 08/17/19 22:53 Urine pH 8.0 (4.5-7.5) H 08/17/19 22:53 Ur Specific [place] 1.034 (1.000-1.030) H 08/17/19 22:53 Urine Protein Negative (Negative) 08/17/19 22:53 Urine Glucose (UA) 1+ (Negative) H 08/17/19 22:53 Urine Ketones Negative (Negative) 08/17/19 22:53 Urine Nitrite Negative (Negative) 08/17/19 22:53 Ur Leukocyte Esterase Negative (Negative) 08/17/19 22:53 08/18/19 12:09 Gram Stain - Final Axilla,Left Aerobic and Anaerobic Culture - Preliminary Staph aureus MRSA 08/17/19 18:26 Aerobic Blood Culture - Preliminary Blood No growth in Aerobic bottle after 48 hours. Anaerobic Blood Culture - Preliminary No growth in Anaerobic bottle after 48 hours. 08/17/19 18:29 Aerobic Blood Culture - Preliminary Blood No growth in Aerobic bottle after 48 hours. Anaerobic Blood Culture - Preliminary No growth in Anaerobic bottle after 48 hours. 08/21/19 08/21/19 07:22 06:21 POC Glucose 82 82
[2019-08-21] MEDS ORDERED: LIDOCAINE HCL 2% 2 ML VIAL/AMP(20MG/ML) INFIL ONE (11:22)
[2019-08-21] MEDS ORDERED: PROPOFOL IV EMULSION 10 MG/ML 20 ML VIAL IV ONE (11:22)
[2019-08-21] MEDS ORDERED: fentaNYL citrate 100 MCG/2 ML VIAL ONE (11:24)
--- NOTE | 2019-08-21 12:18 | GI REPORT ---
Patient Name: Nicole Kelley Procedure Date: 08/21/2019 11:26 AM Date of : 1955 Admit Type: Inpatient Age: 63 Gender: Female Attending MD: Anoop Christian MD Procedure: Upper GI endoscopy Providers: Anoop Christian MD Referring MD: Kari Hayes Do, Edilberto Her M.d., Megan Muhammad Do Indications: For therapy of post-bariatric anastomotic stenosis Medicines: Monitored Anesthesia Care Complications: No immediate complications. Estimated blood loss: None. Estimated Blood Loss: Estimated blood loss: none. Procedure: Pre-Anesthesia Assessment: - Prior to the procedure, a History and Physical was performed, and patient medications, allergies and sensitivities were reviewed. The patient's tolerance of previous anesthesia was reviewed. - ASA Grade Assessment: III - A patient with severe systemic disease. After obtaining informed consent, the endoscope was passed under direct vision. Throughout the procedure, the patient's blood pressure, pulse, and oxygen saturations were monitored continuously. The Endoscope was introduced through the mouth, and advanced to the third part of duodenum. The upper GI endoscopy was accomplished with ease. The patient tolerated the procedure well. Findings: The examined esophagus was normal. The Z-line was regular and was found 38 cm from the incisors. Evidence of a gastric bypass was found. A gastric pouch with a normal size was found. The staple line appeared intact. The gastrojejunal anastomosis was characterized by moderate stenosis and ulceration. This was traversed prior to dilation. A TTS dilator was passed through the scope. Dilation with a 12-13.5-15 mm pyloric balloon dilator was performed. The examined jejunum was normal. Impression: - Normal esophagus. - Z-line regular, 38 cm from the incisors. - Gastric bypass with a normal-sized pouch and intact staple line. Gastrojejunal anastomosis characterized by ulceration and moderate stenosis. Dilated. - Normal examined jejunum. - No specimens collected. Recommendation: - Return patient to [facility] for [facility] care. - Observe patient's clinical course. Aleksandar Torres MD 08/21/2019 12:17:47 PM This report has been signed electronically. Note Initiated On: 08/21/2019 11:26 AM Number of Addenda: 0 I attest to the content of the Intraoperative Record and orders documented therein, exceptions below {[id number]}
--- NOTE | 2019-08-21 13:35 | Hospitalist Progress Note ---
Date of Service August 21, 2019 Assessment & Plan (1) Bacteremia: Secondary to abscess on left chest wall. Patient is not septic. Continues on daptomycin but will switch to doxy tonight per ID recs. Wound vac in place and doing well. Pain controlled. (2) Syncope: Recurrent syncope reported. Uncertain with possible etiologies including but not limited to pre-syncopal / vasovagal episodes likely from poor PO intake, bacteremia, dehydration (chronic alcohol use) , and probable autonomic dysfunction. Episodes are positional and aborted with sitting down. Denies incontinence or tongue biting and EEG this admission was negative for epileptic discharge. MRI brain reviewed and shows diffuse patchy subcortical hyperintensities which are non specific. Neuro does not feel this patient has MS. Cont current treatment plan. (3) Abscess: Status post I&D as above. (4) Status post gastric bypass for obesity: History of known anastomotic ulcer with episode of hematemesis here in the hospital. Plan for EGD/CSP in am. Continue sucralfate and pantoprazole. (5) Alcohol abuse: History of alcohol abuse with evidence of recent drinking although patient denies this. May be contributing to development of GI ulcer and recurrent syncope. (6) DVT prophylaxis: SCDs/ambulation Full code Dispo-dispo to home in am. Wound care followup needed. Kari Hayes DO [facility] Hospitalist Subjective EGD w dilation this am. She is feeling well today. She is tolerating a pureed diet and doing well. Plan to start doxycycline tonight so we can ensure no GI side effects present. Must take two hours prior to carafate. Denies abdominal pain, fevers or chills. Ambulating independently. No further episodes of syncope. Review of Systems Review of Systems: All systems reviewed & are unremarkable except as noted in HPI & below Physical Exam Physical Exam: CONSTITUTIONAL: WNWD, vitals as above, generally well- appearing EYES: normal conjunctivae, no scleral icterus ENT: oropharynx clear RESPIRATORY: clear to auscultation bilaterally, no crackles, rales or wheezes, normal respiratory effort CARDIOVASCULAR: regular rate and rhythm, S1 and 2 heard without murmurs, gallops or rubs, no JVD, no peripheral edema GASTROINTESTINAL: normal bowel sounds, soft, nontender, nondistended MUSCULOSKELETAL: strength 5/5 throughout, head is normocephalic and atraumatic SKIN: warm and dry, incision site in L axilla with wound vac intact NEUROLOGIC: CN 2-12 grossly intact, no sensory deficit, normal cognition, normal speech, saw her ambulate without issue today carrying her wound vac. No gross focal deficits. PSYCHIATRIC: alert cooperative and oriented to person, place and time. Results & Data Vital Signs (Past 12 Hours) Vital Signs Temp Pulse Pulse Resp BP Pulse Ox 08/21/19 12:43 85 18 136/74 95 08/21/19 12:28 80 18 116/80 94 08/21/19 12:17 37.4 C 89 18 124/64 98 08/21/19 11:49 37.4 C 75 16 128/85 Laboratory Results BMP 08/21/19 05:17 Sodium 138 Potassium 3.9 Chloride 106 Carbon Dioxide 29 BUN 5 L Creatinine 0.69 Glucose 75 Calcium 7.6 L Medications Administered Current Inpatient Medications Acetaminophen (Tylenol) 325 mg PO Q6H PRN PRN Reason: Pain or Fever Stop: 09/16/19 22:04 Last Admin: 08/18/19 00:19 Dose: 325 mg Documented by: Hydrocodone Bitart/Acetaminophen ([place] 5/325) 2 tab PO 3XDQ4 PRN PRN Reason: Pain Stop: 09/01/19 12:21 Last Admin: 08/20/19 21:58 Dose: 2 tab Documented by: Hydrocodone Bitart/Acetaminophen ([place]resson 5/325) 1 tab PO 3XDQ4 PRN PRN Reason: Pain Stop: 09/01/19 12:21 Cyanocobalamin (Vitamin B-12) 500 mcg PO DAILY COUNT INCLUDES THE [facility] Stop: 09/17/19 08:59 Last Admin: 08/21/19 09:33 Dose: Not Given Documented by: Dextrose (Dextrose 50%) 25 - 50 ml IV UD PRN; Protocol PRN Reason: Hypoglycemia Protocol Stop: 09/16/19 22:04 Doxycycline Hyclate (Vibramycin) 100 mg PO BID COUNT INCLUDES THE [facility] Stop: 09/04/19 20:59 Duloxetine HCl (Cymbalta) 30 mg PO BID COUNT INCLUDES THE [facility] Stop: 09/16/19 22:04 Last Admin: 08/21/19 09:32 Dose: Not Given Documented by: Folic Acid (Folvite) 1 mg PO DAILY COUNT INCLUDES THE [facility] Stop: 09/17/19 08:59 Last Admin: 08/21/19 09:32 Dose: Not Given Documented by: Gabapentin (Neurontin) 300 mg PO TID BABAK Stop: 09/16/19 22:04 Last Admin: 08/21/19 09:32 Dose: Not Given Documented by: Gadobutrol (Gadavist 65ml) 5.7 ml IV ONCE PRN PRN Reason: Interaction Checking Stop: 08/22/19 03:09 Last Admin: 08/18/19 02:52 Dose: 5.7 ml Documented by: Glucagon (Glucagen) 1 mg SQ UD PRN; Protocol PRN Reason: Hypoglycemia Protocol Stop: 09/16/19 22:04 Glucose (Glucose 40%) 15 - 30 gm PO UD PRN; Protocol PRN Reason: Hypoglycemia Protocol Stop: 09/16/19 22:04 Glucose (Dex4 Glucose) 4 - 8 tabs PO UD PRN; Protocol PRN Reason: Hypoglycemia Protocol Stop: 09/16/19 22:04 Lorazepam (Ativan) 0.25 mg in 0.5 mls @ 0.5 mls/min IV Q4H PRN PRN Reason: Anxiety Stop: 09/16/19 22:04 Last Admin: 08/18/19 01:44 Dose: 0.5 mls/min Documented by: Promethazine HCl 12.5 mg/ (Sodium Chloride) 50.5 mls @ 204 mls/hr IV Q6H PRN PRN Reason: Nausea And Vomiting Stop: 09/17/19 12:21 Last Infusion: 08/19/19 10:55 Dose: Infused Documented by: Insulin Aspart (Novolog Flexpen) 0 units SC ACHS COUNT INCLUDES THE [facility] Stop: 09/16/19 23:44 Last Admin: 08/21/19 12:30 Dose: Not Given Documented by: Miscellaneous (Carbohydrates For Hypoglycemia) 15 - 30 gm PO UD PRN PRN Reason: Hypoglycemia Treatment Stop: 09/16/19 22:04 Morphine Sulfate (Morphine Sulfate) 1 mg IV 4XDQ3H PRN PRN Reason: Pain Stop: 09/01/19 12:21 Morphine Sulfate (Morphine Sulfate) 2 mg IV 4XDQ3H PRN PRN Reason: Pain Stop: 09/01/19 12:21 Last Admin: 08/20/19 06:37 Dose: 2 mg Documented by: Nortriptyline HCl (Pamelor) 25 mg PO HS COUNT INCLUDES THE [facility] Stop: 09/16/19 22:04 Last Admin: 08/20/19 19:47 Dose: 25 mg Documented by: Ondansetron HCl (Zofran) 4 mg IV 4XDQ4H PRN PRN Reason: Nausea Stop: 09/19/19 06:10 Oxycodone HCl (Roxicodone Immediate Rel) 5 mg PO Q4H PRN PRN Reason: Pain Stop: 08/31/19 22:04 Last Admin: 08/21/19 00:13 Dose: 5 mg Documented by: Pantoprazole Sodium (Protonix) 40 mg PO DAILY COUNT INCLUDES THE [facility] Stop: 09/17/19 08:59 Last Admin: 08/21/19 09:32 Dose: Not Given Documented by: Sucralfate (Carafate Tab) 1 gm PO ACHS COUNT INCLUDES THE [facility] Stop: 09/16/19 22:04 Last Admin: 08/21/19 12:30 Dose: Not Given Documented by: Thiamine HCl (Vitamin B-1) 100 mg PO QAM BABAK Stop: 09/17/19 08:59 Last Admin: 08/21/19 09:32 Dose: Not Given Documented by:
--- NOTE | 2019-08-21 15:13 | Anesthesiology Progress Note ---
Date of Service August 21, 2019 Anesthesia Post Procedure Vital Signs Vital Signs: Temp Pulse Pulse Pulse Resp BP BP 08/21/19 13:00 36.9 C 89 18 130/87 08/21/19 12:43 85 18 136/74 08/21/19 12:28 80 18 116/80 08/21/19 12:17 37.4 C 89 18 124/64 08/21/19 11:49 37.4 C 75 16 128/85 08/20/19 19:00 37 C 81 18 130/70 08/20/19 18:33 80 08/20/19 16:03 36.9 C 78 19 120/71 Pulse Ox 08/21/19 13:00 93 08/21/19 12:43 95 08/21/19 12:28 94 08/21/19 12:17 98 08/21/19 11:49 08/20/19 19:00 96 08/20/19 18:33 08/20/19 16:03 95 Pain Intensity Abdomen: Pain Intensity: 8 Left Axilla: Pain Intensity: 10 Transfer of Care Handoff Completed per policy Notes Mental Status: alert / awake / arousable Patient Amnestic to Procedure: Yes Nausea / Vomiting: adequately controlled Pain: adequately controlled Airway Patency, RR, SpO2: stable & adequate BP & HR: stable & adequate Hydration State: stable & adequate Anesthetic Complications: no major complications apparent and Pt Satisfied with anesthetic care
[2019-08-21] MEDS ORDERED: DAPTOmycin 225 MG in SYRINGE 0 ML IV SCH (18:00)
[2019-08-21] MEDS: DOXYCYCLINE HYCLATE 100 MG CAP PO SCH (19:02)
[2019-08-21] MEDS: NORTRIPTYLINE HCL 25 MG CAP PO SCH (20:47)
--- NOTE | 2019-08-22 07:49 | Anesthesiology Progress Note ---
Date of Service August 22, 2019 Anesthesia Post Procedure Vital Signs Vital Signs: Temp Pulse Pulse Resp BP BP Pulse Ox 08/22/19 07:36 36.8 C 76 16 125/72 94 08/21/19 23:10 36.8 C 89 18 132/78 94 08/21/19 15:35 36.9 C 73 20 136/75 96 08/21/19 13:00 36.9 C 89 18 130/87 93 08/21/19 12:43 85 18 136/74 95 08/21/19 12:28 80 18 116/80 94 08/21/19 12:17 37.4 C 89 18 124/64 98 08/21/19 11:49 37.4 C 75 16 128/85 Pain Intensity Abdomen: Pain Intensity: 8 Left Axilla: Pain Intensity: 10 Notes Mental Status: alert / awake / arousable and participated in evaluation Nausea / Vomiting: adequately controlled Pain: adequately controlled Airway Patency, RR, SpO2: stable & adequate BP & HR: stable & adequate Hydration State: stable & adequate
[2019-08-22] MEDS: DULOXETINE HCL 30 MG CAP PO SCH (08:06)
[2019-08-22] MEDS: GABAPENTIN 300 MG CAP PO SCH ×2 (08:06→13:03)
[2019-08-22] MEDS: PANTOprazole 40 MG TAB PO SCH (08:06)
[2019-08-22] MEDS: CYANOCOBALAMIN 500 MCG TABLET (VITAMIN B-12) PO SCH (08:06)
[2019-08-22] MEDS: THIAMINE HCL 100 MG TAB PO SCH (08:06)
[2019-08-22] MEDS: DOXYCYCLINE HYCLATE 100 MG CAP PO SCH (08:07)
[2019-08-22] MEDS: FOLIC ACID 1 MG TAB PO SCH (08:07)
[2019-08-22] MEDS: SUCRALFATE 1 GM TAB PO SCH ×2 (08:07→10:44)
[2019-08-22] MEDS: INSULIN ASPART 100 UNITS/ML 3 ML PEN SC SCH ×2 (08:58→12:50)
--- NOTE | 2019-08-22 13:50 | Discharge Summary ---
Date of Service August 22, 2019 Admission HPI Per Admitting Provider History obtained from patient and records. Medical history significant for hypertension, hyperlipidemia DM2 diet- controlled, hx bariatric surgery, hx PUD, Past alcohol abuse/tobacco abuse, mood disorder, chronic MEHRAN ( baseline hemoglobin 11). Recent confinement February 2018 for epigastric discomfort. No significant findings on EGD. Few months history of poor appetite, generalized achy abdominal pain, nausea and emesis. Significant weight loss as per patient. Patient gives history of recurrent passing out episodes lasting a few minutes, almost every day since June 2019-usually while standing up, witnessed by some family members, she would be disoriented and be doing a small 'dance' after, no tongue biting/incontinence, persistent achy headache symptoms. Patient denies unusual chest pain, S OB. 1 week history of painful bump between left breast and armpit. A few days later, lesion broke open yielding white drainage. No fever, no chills. Patient self-medicating with topical Neosporin. Patient seen at the ER yesterday. Blood cultures obtained. Doxycycline prescribed for abscess. Blood cultures subsequently grew gram-positive cocci in clusters. Patient requested to come back to the ER. Patient given IV Daptomycin and Zosyn at the ER. Medical History as above 2017 mammogram was normal. Surgical History : TERRY-BSO, cholecystectomy, appendectomy, knee surgery, cholecystectomy, gastric bypass Family History : Breast cancer, diabetes, heart disease, COPD Personal/Social history : Past tobacco/alcohol abuse, disabled Admission Exam Per Admitting Provider GENERAL: Comfortable, slightly anxious, no respiratory distress SKIN: Pallor, warm HEENT: Pale palpebral conjunctivae, no ptosis, dry buccal mucosa NECK : Supple, no tenderness CHEST : oblong shaped indurated mass left upper outer chest/left axillary area with a necrotic surface with note of white-yellow granular drainage, mildly tender; decreased breath sounds, no tenderness HEART : RRR, no obvious murmurs ABDOMEN: Some distention, nontender EXTREMITIES : No LE swelling/tenderness, no other conspicuous deformities noted NEUROLOGIC : Coherent, no facial asymmetry, no other gross focality Principal Diagnosis Bacteremia secondary to coag negative staph Left axillary MRSA abscess status post I&D with wound VAC placement Anastomotic ulcer status post RY GB Alcohol use Recurrent syncope Discharge Data Allergies Allergy/AdvReac Type Severity Reaction Status Date / Time Sulfa (Sulfonamide Allergy Severe FACE/THROAT Verified 08/17/19 19:29 Antibiotics) SWELL UP Consultations 08/17/19 19:22 ED Decision to Admit Stat 08/17/19 20:35 Consult General Surgery Routine 08/18/19 07:21 Consult Infectious Diseases Routine 08/19/19 10:02 Consult Gastroenterology Routine Consult Neurology Routine Procedures Performed Operation Date: 08/18/19 09:30 Actual Procedures p Left Axillary Abscess Incision and Drainage(Left) - Rai Perdue MD, FACS Operation Date: 08/21/19 08:30 Actual Procedures p EGD Dilatation - Anoop Christian MD Ordered Studies 08/17/19 18:17 CT abd pelvis IV con only Stat 08/18/19 01:01 MR brain wo/w con Routine Hospital Course (1) Bacteremia: (2) Syncope: (3) Abscess: (4) Status post gastric bypass for obesity: (5) Alcohol abuse: 63-year-old female presented to the emergency room with abdominal pain. She admitted to drinking vodka to the ER provider and had an alcohol level of 148, which may have worsened an existing abdominal ulcer. Additionally, she had been seen in the ER a couple days prior for an abscess under her arm and had grown bacteria in her blood cultures. On arrival to the ER, she was afebrile and hemodynamically stable and oxygenating well on room air. She was admitted to the [facility] Hospitalist team. She was started on Zosyn and Levaquin in the emergency room and transition to IV daptomycin. Infectious disease was consulted and recommended initially continuing daptomycin for suspected MRSA in the setting of axillary abscess. General surgery was consulted and performed an incision and drainage on 08/18 in her left axilla. She had an abscess with necrosis and ultimately was placed on a wound VAC. Wound growth was consistent with MRSA and she was transitioned to doxycycline for 21 days. Clinical history was consistent with recurrent syncope of uncertain etiology with possibilities including but not limited to presyncopal/vasovagal episodes from poor intake of food, bacteremia, dehydration (chronic alcohol use) and probable autonomic dysfunction. Episodes appear to be positional and aborted with sitting down. Patient denied any incontinence or tongue biting however an EEG was performed and was normal. A brain MRI was performed revealing diffuse patchy subcortical hyperintensities which were nonspecific. Neurology did not believe this patient had MS. A couple of days into the hospitalization she had a concerning episode of emesis that appeared coffee ground in consistency. Gastroenterology was consulted and performed an EGD on 08/21. This revealed a normal esophagus and gastric bypass with a normal-sized pouch and intact staple line. The gastrojejunal anastomosis was characterized by ulceration and moderate stenosis. This was dilated. After the procedure the patient was tolerating a pured diet consistently and felt better from a pain standpoint which was epigastric and chronic. She is to follow-up with her bariatric surgeon Dr. Her at [facility] after discharge. At time of discharge a [id number] examination was performed revealing a hemodynamically stable and afebrile patient in no acute distress. Physical exam revealed a soft, nontender nondistended abdomen. Lungs were clear to auscultation and heart sounds were normal. She was mentating emulating at baseline. Close primary care follow-up was recommended to ensure she is doing well and facilitate care and follow-up appointments. Additionally, the patient has anemia since February, reporting symptoms of intolerance of food s yanira January. The anemia should be monitored by the primary care doctor with the patient being facilitated back to her bariatric surgeon faster if clinical symptoms return/worsen. Continue diet that is pured at discharge with transition to solid food as tolerated and as per GI recommendations which should be reviewed at follow-up. Total Time Total Time Spent Total Time Spent (In Minutes): 60 Total Time Includes: Examination of the Patient, Discharge Planning, Medication Reconciliation, Communication With Other Providers and Other (arrange follow-up) Discharge Plan Discharge Items Patient Disposition: Home - Home Health Services Reason For Visit: RECURRENT SYNCOPE, BACTEREMIA Discharge Diagnosis: Bacteremia secondary to coag negative staph Left axillary MRSA abscess status post I&D with wound VAC placement Anastomotic ulcer status post RY GB Alcohol use Recurrent syncope Condition on Discharge: Good Health Concerns: Recurrent syncope-continue to follow-up with PCP for further investigation as needed Anemia and food intolerance/restrictions related to anastomotic ulcer s/p RYGB Goals: Avoid alcohol Avoid smoking or other tobacco products Follow-up closely with bariatric surgeon regarding continued management of ulcer. Activity: Resume your previous activity Driving/Machine Use: avoid driving Non-emergency contact: Primary Care Provider Call non-emergency contact if: you have any medication questions, your symptoms worsen, your pain is not controlled, your pain is worsening, your pain is unusual for you, your pain is concerning for you and you have a fever Follow-up/Referrals: Michelle Lofton DO [Physician] - Jelly Quintanilla DO [Primary Care Provider] - Diet: Regular Diet Texture: Pureed (blended smooth) Addtl Attending Provider Instructions: Please take all medications as instructed on discharge list below. You will need to take doxycycline 100 mg twice daily as an antibiotic for the next 20 days. Please ensure you take doxycycline at least 2 hours before taking any Carafate as there is an interaction with these medications. Taking them together may decrease the absorption and effectiveness of doxycycline. Please follow-up with the wound care as scheduled. Home health has been ordered to come to your home and monitor your progress on the wound VAC. Please follow-up with the infectious disease specialist within 4 to 6 weeks of discharge to ensure you are doing well after having a diagnosis of bacteria in your blood. Please work with your primary care doctor regarding a referral for this. It is recommended that you follow-up with your primary care doctor within 1 week of discharge. You have been scheduled for the following time and date. 08/29/2019 11:00 AM Jelly Quintanilla DO [facility] Please continue to restrict driving or other behaviors where you may be harmed if you lost consciousness. Please continue to work with your primary care doctor regarding the progress of your recurrent syncope. It is highly recommended for the sake of your health that you avoid alcohol completely and avoid tobacco products. Please follow-up with [facility] gastroenterology as instructed. They will be in contact with you to reschedule follow-up. Along the same lines, please follow- up with your bariatric surgeon regarding your progress and needs post-gastric bypass. You were noted to have two small pulmonary nodules in your left lung as an incidental finding on your CT scan. Please follow-up with primary care doctor regarding further monitoring of these. It was a pleasure taking care of you! Please call if you have any questions or problems. You can reach a [facility] hospitalist on duty at [facility] 24 hours a day by calling [phone]. Take care of yourself. Kari Hayes [facility] Forms: Call Back Authorization, [facility] Medications and DC Order Prescriptions: New thiamine HCl (vitamin B1) [Vitamin B-1] 100 mg Tablet 100 mg PO QAM Qty: 30 RF: 1 doxycycline hyclate 100 mg Capsule 100 mg PO BID 20 Days Qty: 40 RF: 0 Continued nortriptyline 25 mg Capsule 25 mg PO HS RF: 0 sucralfate [Carafate] 1 gram tablet 1 g PO ACHS RF: 0 ondansetron HCl 4 mg tablet 4 mg PO Q8 PRN (Reason: Nausea) RF: 0 cyanocobalamin (vitamin B-12) [Vitamin B-12] 500 mcg Tablet 500 mcg PO DAILY RF: 0 esomeprazole magnesium [Nexium] 40 mg capsule,delayed release(DR/EC) 40 mg PO DAILY RF: 0 misoprostol [Cytotec] 100 mcg tablet 100 mcg PO QID RF: 0 gabapentin 300 mg Capsule 300 mg PO TID RF: 0 folic acid 1 mg Tablet 1 mg PO DAILY RF: 0 duloxetine [Cymbalta] 30 mg capsule,delayed release(DR/EC) 30 mg PO BID RF: 0 Discontinued doxycycline hyclate 100 mg tablet 100 mg PO BID 10 Days Qty: 20 RF: 0 Discharge Orders: Discharge Order (Routine); Ordered 08/22/19 Ordered By: Kari Hayes Admission Data Admit Date/Time: 08/17/19 20:27 Attending Provider: Kari Hayes Admit Provider: Alexander Fuentes Primary Care Provider: Jelly Quintanilla Other Providers: Anoop Christian ; Jose Alvarez ; Noel Ward ; Paxton Glez ; Alexander Fuentes Other Interventions: Discharge Summary Assessment (RN) Last Done: 08/21/19 12:28
--- NOTE | 2019-08-26 12:39 | Coding Query ---
SEPSIS THERE IS CONFLICTING DOCUMENTATION OF SEPSIS (EXAMPLE ID CONSULT & PN'S) AND BACTEREMIA ( ON DS & ALL ATTENDING NOTS) To promote full compliance with coding requirements relating to patient care, physician participation is requested in all cases of hims coder uncertainty. Please assist us with the question(s) below: In responding to this query, please exercise your independent professional judgement. The fact that a question is asked does not imply that any particular answer is desired or expected. We appreciate your clarification on this issue. Throughout the medical record, you have clearly documented a localized infection and your patient has clinical evidence of a generalized sepsis or severe sepsis. The term urosepsis is a nonspecific entity and is coded as an UTI. If the patient has sepsis, severe sepsis, from an urinary source or some other source, please clarify in your response below. The medical record reflects the following clinical findings: (With dates as appropriate) (Body temperature of >38.3 C(101 F) or <36 C(96.8F), pulse >90/minute, respirations >20/minute, WBC count >12,000 or <4,000, altered mental status, significant edema or positive fluid balance, hyperglycemia without diabetes, hypotension, metabolic acidosis (elev. lactate level, anion gap or reduced blood pH), shock, positive blood culture (enter organism) ____ (x)Bacteremia (Nonspecific laboratory finding of bacteria in the blood) Specify Organism -->COAG NEG STAPH, NOT LUGDUNESIS (x) Present on Admission () Not present on admission () Unable to clinically determine () Septicemia (Systemic disease associated with the presence of pathogenic microorganisms in the blood): Specify Organism () Present on Admission () Not present on admission () Unable to clinically determine () Sepsis Specify Organism Specify Associated Condition/Diagnosis () Present on Admission () Not present on admission () Unable to clinically determine () Severe Sepsis (Sepsis associated with acute organ dysfunction) Specify Organism Specify Associated Condition/Diagnosis () Present on Admission () Not present on admission () Unable to clinically determine () Septic Shock (Severe sepsis with acute circulatory failure, unexplained by other causes) () Present on Admission () Not present on admission () Unable to clinically determine () Other, patient has: MTDD
--- NOTE | 2019-08-26 12:44 | Coding Query ---
CODING QUERY To promote full compliance with coding requirements relating to patient care, provider participation is requested in all cases of butting saw operator uncertainty. Please assist us with the question(s) below: Coding Question(s): There is documentation on the 08/21 Progress Note of , " History of known anastomotic ulcer with episode of hematemesis here in the hospital.", and the Discharge Summary documents, "A couple of days into the hospitalization she had a concerning episode of emesis that appeared coffee ground in consistency.". Please clarify below, in your clinical opinion regarding hematemesis. ( ) there was likely hematemesis during the admission ( x ) there was No hematemesis during the admission - this was ruled-out ( ) Other: Please specify Physician's Response(s): Episode of emesis was described as coffee ground per nursing, however, when patient was questioned by GI provider later that day, patient denied any blood or coffee ground appearance. Thank you Nasreen Mirza Principal Diagnosis: "that condition established after study, to be chiefly responsible for occasioning the admission of the patient to the hospital for care." Co-Existing Principal Diagnosis: "when two or more diagnoses equally meet the criteria for principal diagnosis as determined by the circumstances of admission, diagnostic work up, and/or therapy provided, and the Alphabetic Index, Tabular List, or another coding guideline does not provide sequencing direction, any one of the diagnoses may be sequenced first." "When the physician has documented what appears to be a current diagnosis in the body of the record, but has not included the diagnosis in the final diagnostic statement, the physician should be asked whether the diagnosis should be added." (Source [facility] 2 QTR90. p3-4) CHARLIE
== END 2019-08-22 15:01 | disposition home health service (06) | DRG 571 ==
LOC: ED 17:58 → 2N 20:27

== ENCOUNTER 2019-09-24 17:47 | Inpatient (IN) ==
[2019-09-24] MEDS ORDERED: SODIUM CHLORIDE 0.9% 1000ML 2,000 ML IV ONE (18:10)
--- NOTE | 2019-09-24 18:30 | XRay Report ---
XR chest 1V portable CLINICAL HISTORY: Chest Pain dyspnea COMPARISON STUDY: 08/17/2019 FINDINGS: The bones soft tissues and hemidiaphragms are normal. The cardiomediastinal silhouette is n ormal. The lungs are clear. The pulmonary vasculature is normal. IMPRESSION: Negative chest. The above report was generated using voice recognition software. It may contain grammatical, syntax or spelling errors. Electronically signed by: Konrad Issa M.D. 09/24/2019 6:29 PM
[2019-09-24 18:48] LABS: Hematocrit (blood only) 35.3 % (37-47); Hemoglobin 11.9 g/dL (12.0-16.0); Mean Corpuscular Hemoglobin 30.7 pg (25-34); Mean Corpuscular Hgb Conc 33.7 g/dL (32-36); RDW Coefficient of Variation 19.6 % (11.5-14.5); RDW Standard Deviation 64.2 fL (36.4-46.3); Red Blood Count 3.88 M/uL (4.2-5.4); White Blood Count 4.99 K/uL (4.8-10.8)
[2019-09-24] MEDS ORDERED: PROCHLORPERAZINE 2 ML IV ONE (19:04)
[2019-09-24] MEDS ORDERED: ACETAMINOPHEN 1,000 MG/100 ML VIAL IV STA (19:04)
[2019-09-24] MEDS ORDERED: FAMOTIDINE 20MG IV PUSH 20 MG/5 ML SYR IV STA (19:04)
[2019-09-24] MEDS ORDERED: DiphenhydrAMINE HCL 50 MG/ML VIAL IV STA (19:04)
[2019-09-24 19:09] LABS: Albumin Level 2.8 gm/dl (3.4-5.0); Aspartate Aminotransferase 125 U/L (15-37); BUN Creatinine Ratio 7.3 (10-20); Blood Urea Nitrogen 8 mg/dl (7-18); Calcium 8.5 mg/dl (8.5-10.1); Carbon Dioxide 34 mmol/L (21-32); Chloride 93 mmol/L (98-107); Creatinine Clr Calc Pharmacy 46.4 ml/min; Est GFR (African American) 64.4; Est GFR (Non-African American) 55.6; Glucose 189 mg/dl (70-99); Lipase 489 U/L (73-393); Magnesium 1.8 mg/dl (1.8-2.4); Potassium 2.3 mmol/L (3.5-5.1); Sodium 134 mmol/L (136-145)
[2019-09-24 19:10] LABS: Mean Platelet Volume 9.7 fL (7.4-10.4); Platelet Count 99 K/uL (130-400)
[2019-09-24] MEDS ORDERED: POTASSIUM CHLORIDE / WTR 10 MEQ/100 ML PLCT IV STA (19:10)
[2019-09-24 19:11] LABS: Basophils # (auto) 0.01 K/uL (0-0.2); Basophils % (auto) 0.2 %; Eosinophils # (auto) 0.01 K/uL (0-0.5); Eosinophils % (auto) 0.2 %; Immature Granulocytes # (auto) 0.01 K/uL (0.00-0.02); Immature Granulocytes % (auto) 0.2 %; Lymphocytes # (auto) 0.68 K/uL (1.2-3.4); Lymphocytes % (auto) 13.6 %; Monocytes # (auto) 0.31 K/uL (0.11-0.59); Monocytes % (auto) 6.2 %; Neutrophils # (auto) 3.97 K/uL (1.4-6.5); Neutrophils % (auto) 79.6 %; Platelet Estimate Decreased (Normal)
[2019-09-24] MEDS ORDERED: MAGNESIUM SULFATE / D5W 1 GM/100 ML BAG IV ONE (19:11)
[2019-09-24 19:13] LABS: Alanine Aminotransferase 126 U/L (12-78); Albumin Globulin Ratio 0.8 (0.9-2); Alkaline Phosphatase 306 U/L (45-117); Bilirubin,Total 1.1 mg/dl (0.2-1); Globulin 3.6 gm/dl (2.5-4.0); Phosphorus 0.8 mg/dl (2.5-4.9); Total Protein 6.4 gm/dl (6.4-8.2); Troponin I < 0.015 ng/ml (0-0.045)
[2019-09-24] MEDS ORDERED: POTASSIUM PHOS 3 MMOL/1 ML INFUSION IV STA ×2 (19:18→20:52)
[2019-09-24] MEDS ORDERED: POTASSIUM PHOSPHATE 9 MMOL in SODIUM CHLORIDE 0.9% 250 ML IV ONE (19:45)
[2019-09-24] MEDS ORDERED: IOVERSOL 100ml IV PRN (19:49)
--- NOTE | 2019-09-24 20:04 | CT Scan Report ---
CT abd pelvis IV con only CT DOSE: 263.91 mGy.cm HISTORY: Pain abd pain, n/v/d TECHNIQUE: Multiaxial CT images of the abdomen and pelvis were performed following the use of intrave nous contrast. A dose lowering technique was utilized adhering to the principles of ALARA. COMPARISON STUDY: 08/17/2019 FINDINGS: Lung bases are clear. Stable 7 mm nodule left lateral costophrenic angle. Diffuse fatty rep lacement of the liver. Unchanged small hemangioma anterior aspect medial right hepatic lobe. Stable o perative changes consistent with a prior gastric bypass type procedure. Kidneys negative for hydronep hrosis. Unchanged left extrarenal pelvis. Prior cholecystectomy. Minimal stable hyperplastic change of the adrenal glands. No evidence for calin l hydronephrosis as described previously. Nonobstructive bowel pattern. Bladder is midline. No evidence for obstructive change or free air. IMPRESSION: 1. No acute process of the abdomen or pelvis. 2. Stable operative changes consistent with gastric bypass type procedure and cholecystectomy. 3. Stable 7 mm nodule left lung base. 4. Stable fatty replacement of the liver. The above report was generated using voice recognition software. It may contain grammatical, syntax or spelling errors. Electronically signed by: Konrad Issa M.D. 09/24/2019 8:03 PM
[2019-09-24] MEDS ORDERED: POTASSIUM CHLORIDE / WTR 10 MEQ/100 ML PLCT IV ONE (20:44)
[2019-09-24] MEDS ORDERED: ONDANSETRON INJ 2 MG/ML 2 ML VIAL IV PRN (20:53)
--- NOTE | 2019-09-24 21:13 | History & Physical Report ---
Date of Service September 24, 2019 Assessment & Plan (1) Gastroenteritis: Presenting with abdominal discomfort with nausea, vomiting and diarrhea since Sunday last Seems to be secondary to gastroenteritis but could be alcohol induced/peptic ulcer disease We will continue with clear liquid diets and symptomatic management for nausea and vomiting No coffee-ground vomiting and no melena and/or bright red blood per rectum We will check a stool for C. difficile and occult blood (2) Hypokalemia due to excessive gastrointestinal loss of potassium: Noted to have severe hypokalemia likely secondary to nausea, vomiting and diarrhea EKG changes with flattening of T waves Admitted to telemetry unit for monitoring We will supplement and recheck (3) Hypophosphatemia: Severe hypophosphatemia with potassium of only 0.8 Secondary to alcoholism and complicated by nausea vomiting diarrhea and poor intake We will supplement phosphate and recheck (4) LFTs abnormal: Liver function test seems to be worse compared with prior Likely secondary to use of alcohol and complicated by nausea vomiting We will repeat LFTs (5) Alcohol abuse: Continues to use alcohol Does not have any withdrawal Will watch for any withdrawal symptoms Has been on gabapentin (6) Status post gastric bypass for obesity: History of stomal ulcer Has been getting sucralfate, Cytotec and PPI We will continue all of those No evidence of any acute GI bleeding DVT prophylaxis with subcu heparin CODE STATUS Full resuscitation without mechanical ventilation History of Present Illness Chief Complaint: Abdominal discomfort with nausea, vomiting and diarrhea since on the last Primary Care Provider: Jelly Quintanilla DO She is 63-year-old female with significant past medical history of hypertension, hyperlipidemia, type 2 diabetes, history of bariatric surgery, peptic ulcer disease, past history of alcohol and tobacco abuse, mood disorder and chronic iron deficiency anemia apparently has been complaining of dizziness when ambulance at since discharge from recent hospitalization and abdominal discomfort with nausea vomiting and diarrhea since Sunday last. She has had left upper chest wall/axillary abscess which treated and resolved. She denies any fever and/or chills with it but she complains of abdominal abdominal discomfort. She denies any coffee-ground vomiting and/or any blood in the stool or any black tarry stool. She feels chilly but denies any documented fever. She denies any chest pain, shortness of breath, palpitation, denies any problem with her urine and denies any numbness and tingling involving any of the extremities. She has been dizzy when ambulance but no recent fall and/or syncope. In the ER she was hemodynamically stable but was noted to have severely electrolyte depleted with elevated LFTs from that point she was admitted to telemetry unit for continuation of care. Allergies Allergy/AdvReac Type Severity Reaction Status Date / Time Sulfa (Sulfonamide Allergy Severe FACE/THROAT Verified 09/24/19 18:15 Antibiotics) SWELL UP Home Medications Home Medications Medication Instructions Recorded Confirmed Type nortriptyline 25 mg PO HS 10/24/18 09/24/19 History cyanocobalamin (vitamin B-12) 500 mcg PO DAILY 08/16/19 09/24/19 History [Vitamin B-12] duloxetine [Cymbalta] 30 mg PO BID 08/16/19 09/24/19 History esomeprazole magnesium [Nexium] 40 mg PO DAILY 08/16/19 09/24/19 History folic acid 1 mg PO DAILY 08/16/19 09/24/19 History gabapentin 300 mg PO TID 08/16/19 09/24/19 History misoprostol [Cytotec] 100 mcg PO QID 08/16/19 09/24/19 History ondansetron HCl 4 mg PO Q8H PRN 08/16/19 09/24/19 History sucralfate [Carafate] 1 g PO ACHS 08/16/19 09/24/19 History thiamine HCl (vitamin B1) [Vitamin 100 mg PO QAM #30 tab 08/22/19 09/24/19 Rx B-1] Past Med/Surg History Medical History (Updated 09/24/19 @ 21:08 by Samreen Mcmahon MD) Acute alcohol abuse (Chronic) Alcohol abuse Anemia, iron deficiency (Chronic) Arthritis (Chronic) Bacteremia DVT prophylaxis Esophagus disorder Gram positive sepsis Hypokalemia Small bowel obstruction (Resolved) Ulcer GI Surgical History History of incision and drainage (08/18/19) Left Axillary Abscess Incision and Drainage Dr. Perdue 08/18/19 Status post appendectomy (Chronic) Status post cholecystectomy (Chronic) Status post gastric bypass for obesity (Chronic) Status post hysterectomy (Chronic) Social History (Reviewed 08/27/19 @ 09:00 by TEETEE Davison Preferred Language: Greek Communication Ability: Effective Recreation Officer Required: No Beliefs That Will Affect Care: None Current Living Situation: Alone Feels Safe at Home: Yes Smoking Status: Current some day smoker Tobacco Type: cigarettes ; Second Hand Exposure: Yes ; Hx Alcohol Use: Yes Alcohol type: hard liquor Hx Substance Use: No Review of Systems Review of Systems: All systems reviewed & are unremarkable except as noted in HPI & below Physical Exam Physical Exam: No apparent distress at rest Constitutional: well developed and + ill appearing; no acute distress Eyes: PERRL, conjunctivae normal, anicteric sclerae ENMT: external ear and nose normal, oropharynx normal Neck: trachea midline, no thyromegaly Respiratory: normal respiratory effort; no respiratory distress Auscultation: + diminished lung sounds; no rhonchi and no wheezes Cardiovascular: Rate/Rhythm: regular rhythm Heart Sounds: no murmur Gastrointestinal (Abdomen): Inspection/Auscultation: abdomen normal to inspection and normal bowel sounds Percussion/Palpation: + abdomen tender (Mildly tender in the epigastrium) and abdomen soft Musculoskeletal: No acute arthritis in any joint Neurologic: Alert, awake and oriented x3. Generally weak Lymphatic: no cervical or axillary lymphadenopathy Results & Data Vital Signs (Past 12 Hours) Vital Signs Temp Pulse Pulse Resp BP BP Pulse Ox 09/24/19 19:59 78 16 124/58 L 99 09/24/19 18:54 78 18 108/78 98 09/24/19 17:45 37 C 94 H 16 125/64 92 Laboratory Results Short CBC 09/24/19 Range/Units 18:33 WBC 4.99 (4.8-10.8) K/uL Hgb 11.9 L (12.0-16.0) g/dL Hct 35.3 L (37-47) % Plt Count 99 L (130-400) K/uL BMP 09/24/19 18:33 Sodium 134 L Potassium 2.3 L* Chloride 93 L Carbon Dioxide 34 H BUN 8 Creatinine 1.07 Glucose 189 H Calcium 8.5 Cardiac Enzymes 09/24/19 Range/Units 18:33 Troponin I < 0.015 (0-0.045) ng/ml Liver Function 09/24/19 Range/Units 18:33 Total Bilirubin 1.1 H (0.2-1) mg/dl AST 125 H (15-37) U/L ALT 126 H (12-78) U/L Alkaline Phosphatase 306 H (45-117) U/L Albumin 2.8 L (3.4-5.0) gm/dl Medications Administered Current Inpatient Medications Heparin Sodium (Porcine) (Heparin Sodium (Porcine)) 5,000 units SQ Q12 BABAK Stop: 10/24/19 20:59 Potassium Phosphate 9 mmol/ (Sodium Chloride) 253 mls @ 88 mls/hr IV ONE ONE Stop: 09/24/19 22:37 Last Admin: 09/24/19 19:58 Dose: 88 mls/hr Documented by: Potassium Chloride (K Yousif / Wtr) 10 meq in 100 mls @ 100 mls/hr IV ONE ONE Stop: 09/24/19 21:43 Last Admin: 09/24/19 20:45 Dose: 100 mls/hr Documented by: Potassium Chloride/Sodium Chloride (Normal Saline W/20 Meq Kcl) 20 meq in 1,000 mls @ 80 mls/hr IV .[id number] BABAK Stop: 09/26/19 10:29 Promethazine HCl 12.5 mg/ (Sodium Chloride) 50.5 mls @ 202 mls/hr IV Q6H PRN PRN Reason: Nausea And Vomiting Stop: 10/24/19 20:56 Ioversol (Optiray 320 100ml) 90 ml IV ONCE PRN PRN Reason: Interaction Checking Stop: 09/28/19 19:48 Last Admin: 09/24/19 19:50 Dose: 90 ml Documented by: Potassium Phosphate (Potassium Phosphate Replace) 40 mmol IV NOW STA Stop: 09/24/19 20:53 Code Status & VTE Plan VTE Prophylaxis Plan VTE Prophylaxis will be ordered: Yes
[2019-09-24] MEDS ORDERED: POTASSIUM PHOSPHATE 40 MMOL in SODIUM CHLORIDE 0.9% 1000ML 1,000 ML IV ONE (21:45)
[2019-09-24] MEDS: HEPARIN SOD 5,000 UNIT/0.5 ML VIAL SQ SCH (22:36)
[2019-09-24] MEDS: DULOXETINE HCL 30 MG CAP PO SCH (23:48)
[2019-09-24] MEDS: GABAPENTIN 300 MG CAP PO SCH (23:48)
[2019-09-24] MEDS: NORTRIPTYLINE HCL 25 MG CAP PO SCH (23:48)
[2019-09-24] MEDS: SUCRALFATE 1 GM TAB PO SCH (23:48)
[2019-09-24] MEDS: miSOPROStoL 100 MCG TAB PO SCH (23:48)
[2019-09-25 00:17] LABS: Calcium 7.4 mg/dl (8.5-10.1); Creatinine Clr Calc Pharmacy 64.6 ml/min; Est GFR (African American) 95.9; Est GFR (Non-African American) 82.8; Phosphorus 2.6 mg/dl (2.5-4.9); Potassium 2.6 mmol/L (3.5-5.1)
--- NOTE | 2019-09-25 01:04 | Emergency Department Note ---
Entered by Latonia Franklin acting as a scribe for History of Present Illness General Chief complaint: Illness Stated complaint: DIZZINESS, VOMITING Time Seen by Provider: 09/24/19 17:51 History of Present Illness Provider complaint: illness Onset (ago): day(s) 3 Pain Consistency: + other (episode) Maximum Pain Intensity: 0 Quality: + other (illness) Exacerbated By: + eating Associated symptoms: + nausea/vomiting and + other (diarrhea, lightheaded, cannot keep medication down, several falls since cyst removal in August, stopped taking antibiotics 4 days ago) The patient is a 63 year old female who presents to the ED with complaints of an episode of an illness that started 3 days ago. The patient states that she was seen here approximately 1 month ago for a cyst removal. The patient notes that she has had nausea, vomiting, diarrhea and lightheadedness since the day after she stopped taking her antibiotics 4 days ago. The patient notes that she cannot keep anything down, including her other medications. The patient states that eating typically exacerbates the vomiting. The patient states that she has been going to physical therapy and they have been working her good. However, the patient states that she has had several falls since her cyst was removed in August. The patient notes that it feels like she cannot stand anymore because she is so weak. The patient notes that she has esophagus issues that require her to need esophageal stretching. That patient states that she also needs a ga stric bypass revision because of an ulcer on her bowel. Home Medications Home Medications Medication Instructions Recorded Confirmed Type nortriptyline 25 mg PO HS 10/24/18 09/24/19 History cyanocobalamin (vitamin B-12) 500 mcg PO DAILY 08/16/19 09/24/19 History [Vitamin B-12] duloxetine [Cymbalta] 30 mg PO BID 08/16/19 09/24/19 History esomeprazole magnesium [Nexium] 40 mg PO DAILY 08/16/19 09/24/19 History folic acid 1 mg PO DAILY 08/16/19 09/24/19 History gabapentin 300 mg PO TID 08/16/19 09/24/19 History misoprostol [Cytotec] 100 mcg PO QID 08/16/19 09/24/19 History ondansetron HCl 4 mg PO Q8H PRN 08/16/19 09/24/19 History sucralfate [Carafate] 1 g PO ACHS 08/16/19 09/24/19 History thiamine HCl (vitamin B1) [Vitamin 100 mg PO QAM #30 tab 08/22/19 09/24/19 Rx B-1] Allergies Allergy/AdvReac Type Severity Reaction Status Date / Time Sulfa (Sulfonamide Allergy Severe FACE/THROAT Verified 09/24/19 18:15 Antibiotics) SWELL UP Past Med/Surg History Medical History Acute alcohol abuse (Chronic) Alcohol abuse Anemia, iron deficiency (Chronic) Arthritis (Chronic) Bacteremia DVT prophylaxis Esophagus disorder Gram positive sepsis Hypokalemia Small bowel obstruction (Resolved) Ulcer GI Surgical History History of incision and drainage (08/18/19) Left Axillary Abscess Incision and Drainage Dr. Perdue 08/18/19 Status post appendectomy (Chronic) Status post cholecystectomy (Chronic) Status post gastric bypass for obesity (Chronic) Status post hysterectomy (Chronic) Family History Other No pertinent family history in first degree relatives Social History Preferred Language: [place] Citizen Communication Ability: Effective Treasury Specialist Required: No Beliefs That Will Affect Care: None Current Living Situation: Alone Current Living Situation Comment: lives at home with friend (ambreen Padilla) Other Information That Helps Us Care for You: No Feels Safe at Home: Yes Safety Concerns: Feels Safe At This Time Smoking Status: Former smoker Tobacco Type: cigarettes ; Do You Dip or Chew Tobacco: No ; Second Hand Exposure: Yes ; Hx Alcohol Use: Yes Alcohol type: beer Hx Substance Use: No Review of Systems See HPI for pertinent positives & negatives. and A total of 10 systems reviewed and were otherwise negative Physical Exam Vital Signs Vital Signs - 24 hr 09/24/19 17:45 09/24/19 18:54 09/24/19 19:59 Temperature 37 C Temperature Source Oral Pulse Rate 94 H Pulse Rate [Apical] 78 78 Pulse Rhythm Regular Pulse Rhythm [Apical] Regular Pulse Strength Normal Respiratory Rate 16 18 16 Respiratory Effort / Characteristics Non-Labored Spontaneous Non-Labored Spontaneous Respiratory Depth Normal Normal Normal Respiratory Pattern Regular Blood Pressure 125/64 Blood Pressure [Left Arm] 108/78 124/58 L Blood Pressure Mean 84 Blood Pressure Mean [Left Arm] 88 80 Blood Pressure Position Lying Pulse Oximetry 92 98 99 Oxygen Delivery Method Room Air Room Air Room Air Sepsis Recent Fever Within 48 Hours No Sepsis New/Unexplained Change in Mental Status No Sepsis Action Taken by Nursing No Action Required GENERAL: Awake, alert, uncomfortable-appearing, in no distress HENT: Normocephalic, atraumatic. Oropharynx with dry mucous membranes and otherwise unremarkable. EYES: Normal conjunctiva. Sclera non-icteric. NECK: Supple. No nuchal rigidity. FROM. No JVD. RESPIRATORY: Clear to auscultation bilaterally. CARDIAC: Regular rate, normal rhythm. Extremities warm and well perfused. Pulses equal. ABDOMEN: Soft, non-distended. Generalized abdominal discomfort without discrete tenderness. No rebound or guarding. No masses. RECTAL: Deferred. MUSCULOSKELETAL: Chest examination reveals no tenderness. The back is symmetrical on inspection without obvious abnormality. There is no CVA tenderness to palpation. No joint edema. Left axillary prior IND site, clean, dry and intact without erythema and discharge. LOWER EXTREMITIES: Calves are equal size bilaterally and non-tender. No edema. No discoloration. NEURO: Normal sensorium. No sensory or motor deficits noted. SKIN: No rash or jaundice noted. Course Course 1800: Past medical records reviewed. The patient was evaluated in room C3. A complete history and physical exam was performed. 2025: I discussed the patient's case with Dr. Molly Lindsey. He will evaluate the patient for further management. Consultations Consultation #1: I discussed the patient's case with Dr. Molly Lindsey. He will evaluate the patient for further management. Time: 20:26 Administered Medications Duloxetine HCl (Cymbalta) 30 mg PO BID BABAK Stop: 10/24/19 21:40 Last Admin: 09/24/19 23:48 Dose: 30 mg Documented by: [id number] Gabapentin (Neurontin) 300 mg PO TID BABAK Stop: 10/24/19 21:40 Last Admin: 09/24/19 23:48 Dose: 300 mg Documented by: [id number] Heparin Sodium (Porcine) (Heparin Sodium (Porcine)) 5,000 units SQ Q12 BABAK Stop: 10/24/19 20:59 Last Admin: 11/20/19 22:36 Dose: 5,000 units Documented by: [id number] Cosigned by: [id number] Potassium Phosphate 40 mmol/ (Sodium Chloride) 1,013.3333 mls @ 100 mls/hr IV ONE ONE Stop: 09/25/19 07:52 Last Admin: 09/24/19 22:36 Dose: 100 mls/hr Documented by: [id number] Misoprostol (Cytotec) 100 mcg PO QID BABAK Stop: 10/24/19 21:40 Last Admin: 09/24/19 23:48 Dose: 100 mcg Documented by: [id number] Nortriptyline HCl (Pamelor) 25 mg PO HS BABAK Stop: 10/24/19 21:40 Last Admin: 09/24/19 23:48 Dose: 25 mg Documented by: [id number] Sucralfate (Carafate Tab) 1 gm PO ACHS BABAK Stop: 10/24/19 21:40 Last Admin: 09/24/19 23:48 Dose: 1 gm Documented by: [id number] Discontinued Medications Diphenhydramine HCl (Benadryl) 25 mg IV NOW STA Stop: 09/24/19 19:05 Last Admin: 09/24/19 19:12 Dose: 25 mg Documented by: [id number] Sodium Chloride (Nss 1000ml) 2,000 mls @ 999 mls/hr IV .Q2H1M ONE Stop: 09/24/19 20:10 Last Infusion: 09/24/19 20:39 Dose: 0 mls/hr Documented by: [id number] Admin: 09/24/19 18:46 Dose: 999 mls/hr Documented by: [id number] Prochlorperazine (Compazine) 2 mls @ 1 mls/min IV ONE ONE Stop: 09/24/19 19:05 Last Admin: 09/24/19 19:12 Dose: 1 mls/min Documented by: [id number] Famotidine (Pepcid 20mg Iv Push) 20 mg in 5 mls @ 2.5 mls/min IV NOW STA Stop: 09/24/19 19:05 Last Admin: 09/24/19 19:12 Dose: 2.5 mls/min Documented by: [id number] Acetaminophen (Ofirmev) 1,000 mg in 100 mls @ 400 mls/hr IV NOW STA Stop: 09/24/19 19:18 Last Infusion: 09/24/19 19:34 Dose: 0 mls/hr Documented by: [id number] Admin: 09/24/19 19:12 Dose: 400 mls/hr Documented by: [id number] Potassium Chloride (K Yousif / Wtr) 10 meq in 100 mls @ 100 mls/hr IV Q1H STA Stop: 09/24/19 20:09 Last Infusion: 09/24/19 20:39 Dose: 0 mls/hr Documented by: [id number] Admin: 09/24/19 19:18 Dose: 100 mls/hr Documented by: [id number] Magnesium Sulfate/Dextrose (Magnesium Sulfate / D5w) 1 gm in 100 mls @ 100 mls/hr IV ONE ONE Stop: 09/24/19 20:10 Last Infusion: 09/24/19 20:38 Dose: 0 mls/hr Documented by: [id number] Admin: 09/24/19 19:18 Dose: 100 mls/hr Documented by: [id number] Potassium Phosphate 9 mmol/ (Sodium Chloride) 253 mls @ 88 mls/hr IV ONE ONE Stop: 09/24/19 22:37 Last Infusion: 09/25/19 00:01 Dose: 0 mls/hr Documented by: [id number] Admin: 09/24/19 19:58 Dose: 88 mls/hr Documented by: [id number] Potassium Chloride (K Yousif / Wtr) 10 meq in 100 mls @ 100 mls/hr IV ONE ONE Stop: 09/24/19 21:43 Last Infusion: 09/24/19 21:45 Dose: 0 mls/hr Documented by: [id number] Admin: 09/24/19 20:45 Dose: 100 mls/hr Documented by: [id number] Ioversol (Optiray 320 100ml) 90 ml IV ONCE PRN PRN Reason: Interaction Checking Stop: 09/28/19 19:48 Last Admin: 09/24/19 19:50 Dose: 90 ml Documented by: [id number] Medical Decision Making Differential Diagnosis Differential diagnosis: Etiologies such as metabolic, infection, hypo/hyperglycemia, electrolyte abnormalities, cardiac sources, intracerebral event, toxicologic, neurologic, as well as others were entertained. Medical Records Attestation: I reviewed the patient's medical records. Home Medications Current Medication List: was personally reviewed by me Laboratory Data Attestation: I reviewed the patient's lab results. Result diagrams: 09/24/19 18:33 09/24/19 23:38 Lab Results 09/24/19 09/24/19 09/24/19 Range/Units 18:33 18:33 18:33 WBC 4.99 (4.8-10.8) K/uL RBC 3.88 L (4.2-5.4) M/uL Hgb 11.9 L (12.0-16.0) g/dL Hct 35.3 L (37-47) % MCV 91.0 (80-100) fL MCH 30.7 (25-34) pg MCHC 33.7 (32-36) g/dL RDW Std Deviation 64.2 H (36.4-46.3) fL RDW Coeff of Taye 19.6 H (11.5-14.5) % Plt Count 99 L (130-400) K/uL MPV 9.7 (7.4-10.4) fL Immature Gran % (Auto) 0.2 % Neut % (Auto) 79.6 % Lymph % (Auto) 13.6 % [place] % (Auto) 6.2 % Eos % (Auto) 0.2 % Baso % (Auto) 0.2 % Immature Gran # (Auto) 0.01 (0.00-0.02) K/uL Neut # (Auto) 3.97 (1.4-6.5) K/uL Lymph # (Auto) 0.68 L (1.2-3.4) K/uL [place] # (Auto) 0.31 (0.11-0.59) K/uL Eos # (Auto) 0.01 (0-0.5) K/uL Baso # (Auto) 0.01 (0-0.2) K/uL Platelet Estimate Decreased L (Normal) Sodium 134 L (136-145) mmol/L Potassium 2.3 L* (3.5-5.1) mmol/L Chloride 93 L (98-107) mmol/L Carbon Dioxide 34 H (21-32) mmol/L Anion Gap 6.0 (3-11) BUN 8 (7-18) mg/dl Creatinine 1.07 (0.6-1.2) mg/dl Est Cr Clr Drug Dosing 46.4 ml/min Est GFR ( Amer) 64.4 Est GFR (Non-Af Amer) 55.6 BUN/Creatinine Ratio 7.3 L (10-20) Glucose 189 H (70-99) mg/dl Calcium 8.5 (8.5-10.1) mg/dl Phosphorus 0.8 L* (2.5-4.9) mg/dl Magnesium 1.8 (1.8-2.4) mg/dl Total Bilirubin 1.1 H (0.2-1) mg/dl AST 125 H (15-37) U/L ALT 126 H (12-78) U/L Alkaline Phosphatase 306 H (45-117) U/L Troponin I < 0.015 (0-0.045) ng/ml Total Protein 6.4 (6.4-8.2) gm/dl Albumin 2.8 L (3.4-5.0) gm/dl Globulin 3.6 (2.5-4.0) gm/dl Albumin/Globulin Ratio 0.8 L (0.9-2) Lipase 489 H (73-393) U/L Ethyl Alcohol mg/dL < 3.0 (0-3) mg/dl Hepatitis C Ab Screen (Neg) 09/24/19 Range/Units 18:34 WBC (4.8-10.8) K/uL RBC (4.2-5.4) M/uL Hgb (12.0-16.0) g/dL Hct (37-47) % MCV (80-100) fL MCH (25-34) pg MCHC (32-36) g/dL RDW Std Deviation (36.4-46.3) fL RDW Coeff of Taye (11.5-14.5) % Plt Count (130-400) K/uL MPV (7.4-10.4) fL Immature Gran % (Auto) % Neut % (Auto) % Lymph % (Auto) % [place] % (Auto) % Eos % (Auto) % Baso % (Auto) % Immature Gran # (Auto) (0.00-0.02) K/uL Neut # (Auto) (1.4-6.5) K/uL Lymph # (Auto) (1.2-3.4) K/uL [place] # (Auto) (0.11-0.59) K/uL Eos # (Auto) (0-0.5) K/uL Baso # (Auto) (0-0.2) K/uL Platelet Estimate (Normal) Sodium (136-145) mmol/L Potassium (3.5-5.1) mmol/L Chloride (98-107) mmol/L Carbon Dioxide (21-32) mmol/L Anion Gap (3-11) BUN (7-18) mg/dl Creatinine (0.6-1.2) mg/dl Est Cr Clr Drug Dosing ml/min Est GFR ( Amer) Est GFR (Non-Af Amer) BUN/Creatinine Ratio (10-20) Glucose (70-99) mg/dl Calcium (8.5-10.1) mg/dl Phosphorus (2.5-4.9) mg/dl Magnesium (1.8-2.4) mg/dl Total Bilirubin (0.2-1) mg/dl AST (15-37) U/L ALT (12-78) U/L Alkaline Phosphatase (45-117) U/L Troponin I (0-0.045) ng/ml Total Protein (6.4-8.2) gm/dl Albumin (3.4-5.0) gm/dl Globulin (2.5-4.0) gm/dl Albumin/Globulin Ratio (0.9-2) Lipase (73-393) U/L Ethyl Alcohol mg/dL (0-3) mg/dl Hepatitis C Ab Screen Neg (Neg) Imaging Data Radiologist's Impression: Radiology results as stated below per my review and the radiologist's interpretation: XR chest 1V portable CLINICAL HISTORY: Chest Pain dyspnea COMPARISON STUDY: 08/17/2019 FINDINGS: The bones soft tissues and hemidiaphragms are normal. The cardiomediastinal silhouette is normal. The lungs are clear. The pulmonary vasculature is normal. IMPRESSION: Negative chest. The above report was generated using voice recognition software. It may contain grammatical, syntax or spelling errors. Electronically signed by: Konrad Issa M.D. 09/24/2019 6:[address] abd pelvis IV con only CT DOSE: 263.91 mGy.cm HISTORY: Pain abd pain, n/v/d TECHNIQUE: Multiaxial CT images of the abdomen and pelvis were performed following the use of intravenous contrast. A dose lowering technique was utilized adhering to the principles of ALARA. COMPARISON STUDY: 08/17/2019 FINDINGS: Lung bases are clear. Stable 7 mm nodule left lateral costophrenic angle. Diffuse fatty replacement of the liver. Unchanged small hemangioma anterior aspect medial right hepatic lobe. Stable operative changes consistent with a prior gastric bypass type procedure. Kidneys negative for hydronephrosis. Unchanged left extrarenal pelvis. Prior cholecystectomy. Minimal stable hyperplastic change of the adrenal glands. No evidence for renal hydronephrosis as described previously. Nonobstructive bowel pattern. Bladder is midline. No evidence for obstructive change or free air. IMPRESSION: 1. No acute process of the abdomen or pelvis. 2. Stable operative changes consistent with gastric bypass type procedure and cholecystectomy. 3. Stable 7 mm nodule left lung base. 4. Stable fatty replacement of the liver. The above report was generated using voice recognition software. It may contain grammatical, syntax or spelling errors. Electronically signed by: Konrad Issa M.D. 09/24/2019 8:03 PM ECG Data Attestation: I personally reviewed and interpreted this ECG as follows: Indication: + vomiting Rate (beats per minute): 90 Rhythm: + normal sinus ECG Intervals/blocks: + Left anterior fascicular block ECG ST segments: + Normal ST segments ECG Findings: + Other (Non-specific ST abnormality, QTC 623); no PACs and no PVCs Comparison ECG Date: from (08/19/2019) Change: the following changes noted (QTC has increased) Blood Pressure Blood Pressure Findings: Elevated blood pressure Blood Pressure Disposition: further management by hospitalist NILDA Narrative The patient is a pleasant 63-year-old woman with a past medical history of gastric bypass, recent admission for left axillary abscess having completed antibiotics who presents emerged department with generalized weakness over the past week in the setting of nausea vomiting and diarrhea after completing her course of antibiotics per hpi. On arrival patient is uncomfortable no acute distress, afebrile stable vital signs. The patient is neurologically intact. T he patient appears clinically dry. EKG without overt acute ischemia. Chest x- ray negative for acute process. WBC wnl. H/H 11.9/35.3 similar to prior. Platelets 99newly decreased. Potassium low at 2.3, phosphorus low at 0.8, and magnesium low at 1.8 with repletion provided. Chemisty without acidosis.CT and pelvis was performed and negative for acute process. Cdiff ordered however BM pending.Given the patient's electrolyte abnormalities in the setting of her generalized weakness reasonable to admit for further management. Patient agreeable. Case was discussed with Dr. Fuentes, [employer] Hospitalist, who evaluate the patient for admission. Impression & Plan Hypokalemia, Abdominal pain, Hypophosphatemia, Hypomagnesemia, Dehydration Discharge Plan Visit Data *Final* Discharge Date/Time: 09/24/19 21:13 Chief Complaint: Illness Stated Complaint: DIZZINESS, VOMITING ED Provider: Keven Humphreys Discharge Problem: Hypokalemia, Abdominal pain, Hypophosphatemia, Hypomagnesemia, Dehydration Patient Disposition: Admitted As Inpatient Discharge Instructions Interventions: ED Discharge Assessment Last Done: 09/24/19 21:13 Discharge Problem: Abdominal pain Qualifiers: Abdominal location: unspecified location Qualified Code(s): R10.9 - Unspecified abdominal pain The scribe's documentation has been prepared under my direction and personally reviewed by me in its entirety. I confirm that the note above accurately reflects all work, treatment, procedures, and medical decision making performed by me.
[2019-09-25 06:12] LABS: Hematocrit (blood only) 32.9 % (37-47); Hemoglobin 10.8 g/dL (12.0-16.0); Mean Corpuscular Hemoglobin 29.8 pg (25-34); Mean Corpuscular Hgb Conc 32.8 g/dL (32-36); Mean Corpuscular Volume 90.9 fL (80-100); Platelet Count 71 K/uL (130-400); Red Blood Count 3.62 M/uL (4.2-5.4)
[2019-09-25 06:20] LABS: Basophils # (auto) 0.01 K/uL (0-0.2); Basophils % (auto) 0.3 %; Eosinophils # (auto) 0.06 K/uL (0-0.5); Eosinophils % (auto) 2.1 %; Monocytes # (auto) 0.14 K/uL (0.11-0.59); Monocytes % (auto) 4.8 %; Neutrophils # (auto) 1.79 K/uL (1.4-6.5); Neutrophils % (auto) 61.8 %
[2019-09-25 06:21] LABS: RDW Coefficient of Variation 20.2 % (11.5-14.5); RDW Standard Deviation 66.3 fL (36.4-46.3)
[2019-09-25 06:22] LABS: Anisocytosis Present
[2019-09-25 06:33] LABS: Albumin Level 2.1 gm/dl (3.4-5.0); BUN Creatinine Ratio 8.1 (10-20); Bilirubin Direct 0.5 mg/dl (0-0.2); Bilirubin,Total 0.8 mg/dl (0.2-1); Calcium 7.2 mg/dl (8.5-10.1); Creatinine Clr Calc Pharmacy 80.5 ml/min; Est GFR (African American) 111.4; Est GFR (Non-African American) 96.1; Magnesium 1.9 mg/dl (1.8-2.4); Phosphorus 5.1 mg/dl (2.5-4.9); Potassium 2.5 mmol/L (3.5-5.1); Total Protein 4.6 gm/dl (6.4-8.2)
[2019-09-25 07:01] LABS: Appearance Urine Clear (Clear); Bilirubin Urine Negative (Negative); Blood Urine Negative (Negative); Color Urine Yellow; Glucose Urine UA Negative (Negative); Ketones Urine Negative (Negative); Leukocyte Esterase Urine Negative (Negative); Nitrite Urine Negative (Negative); Protein Urine Negative (Negative); Specific Gravity Urine 1.034 (1.000-1.030); Urobilinogen Urine Negative (Negative); pH Urine >= 9.0 (4.5-7.5)
[2019-09-25] MEDS ORDERED: POTASSIUM CHLORIDE 40 MEQ in SODIUM CHLORIDE 0.9% 1000ML 1,000 ML IV ONE (07:15)
[2019-09-25] MEDS ORDERED: MAGNESIUM SULFATE / D5W 1 GM/100 ML BAG IV ONE (07:15)
[2019-09-25] MEDS ORDERED: POTASSIUM CHLORIDE 10 MEQ TABCR PO ONE ×2 (07:15→09:00)
[2019-09-25] MEDS: THIAMINE HCL 100 MG TAB PO SCH (07:37)
[2019-09-25] MEDS: FOLIC ACID 1 MG TAB PO SCH (07:37)
[2019-09-25] MEDS: CYANOCOBALAMIN 500 MCG TABLET (VITAMIN B-12) PO SCH (07:37)
[2019-09-25] MEDS: SUCRALFATE 1 GM TAB PO SCH ×4 (07:38→19:41)
[2019-09-25] MEDS: DULOXETINE HCL 30 MG CAP PO SCH ×2 (07:38→19:40)
[2019-09-25] MEDS: GABAPENTIN 300 MG CAP PO SCH ×3 (07:38→19:41)
[2019-09-25] MEDS: PANTOprazole 40 MG TAB PO SCH (07:38)
[2019-09-25] MEDS: miSOPROStoL 100 MCG TAB PO SCH ×4 (07:38→19:40)
[2019-09-25] MEDS: HEPARIN SOD 5,000 UNIT/0.5 ML VIAL SQ SCH (07:39)
[2019-09-25] MEDS ORDERED: NSS + 20MEQ KCL 20 MEQ/1,000 ML BAG IV SCH (08:00)
[2019-09-25] MEDS ORDERED: ACETAMINOPHEN 500 MG TAB PO ONE (09:28)
--- NOTE | 2019-09-25 16:20 | Hospitalist Progress Note ---
Date of Service September 25, 2019 Assessment & Plan (1) Gastroenteritis: Gastroenteritis CT ABD:No acute process of the abdomen or pelvis. Stable operative changes consistent with gastric bypass type procedure and cholecystectomy. Stable 7 mm nodule left lung base. Stable fatty replacement of the liver. Fecal Occult:Negative Stool Studies:pending Advance diet as tolerated Continue IV fluids Consider GI eval with no improvement Prolonged QTC Avoid QTC prolonging meds Repeat EKG in a.m. Pulmonary nodule Incidental finding on CT scan History of remote smoking Follow-up with repeat CT as outpatient (2) Hypokalemia due to excessive gastrointestinal loss of potassium: Secondary to GI losses Poor oral intake contributing Platelets as needed Monitor (3) Hypophosphatemia: Severe hypophosphatemia Secondary to alcoholism, GI loses and poor oral intake Replace electrolytes as needed (4) LFTs abnormal: Chronic transaminitis CT ABD:Stable fatty replacement of the liver. Avoid hepatotoxic agents as able Monitor LFTs (5) Alcohol abuse: Consult to quit alcohol use Monitor for withdrawal On gabapentin at home Continue thiamine, folic acid Pancytopenia Likely secondary to chronic alcohol use Currently no acute bleeding issues Monitor platelet count (6) Status post gastric bypass for obesity: H/O Peptic ulcer Continue sucralfate, Cytotec, PPI Monitor DVT Px: Heparin SQ CODE STATUS Full resuscitation without mechanical ventilation Disposition PT/OT prior to discharge Subjective Patient is seen and examined at bedside Reports dizziness, headache this morning Also states having nausea but no vomiting Has chronic abdominal discomfort which is unchanged No diarrhea this morning States her last alcohol drink was 45 days ago Denies any chest pain, shortness of breath Offers no other complaints Review of Systems Review of Systems: All systems reviewed & are unremarkable except as noted in HPI & below Physical Exam Physical Exam: Physical Exam: Vitals signs as noted above General Appearance:Chronic ill appearing, no apparent distress Head: normocephalic, Atraumatic Eyes: normal inspection, EOMI Neck: supple, Trachea midline Respiratory/Chest: Normal breath sounds, CTA Cardiovascular: S1, S2, No murmur Abdomen/GI:Soft, Mild tender, Bowel sounds present Extremities/Musculoskelatal:normal inspection, no edema Neurologic/Psych:AAOX3, grossly no focal neurological deficits Skin: normal color, warm Results & Data Vital Signs (Past 12 Hours) Vital Signs Temp Pulse Pulse Resp BP Pulse Ox 09/25/19 15:12 36.7 C 76 20 115/61 100 09/25/19 08:00 74 09/25/19 07:03 36.6 C 75 20 127/72 96 Laboratory Results Short CBC 09/24/19 09/25/19 Range/Units 18:33 05:11 WBC 4.99 2.90 L (4.8-10.8) K/uL Hgb 11.9 L 10.8 L (12.0-16.0) g/dL Hct 35.3 L 32.9 L (37-47) % Plt Count 99 L 71 L (130-400) K/uL BMP 09/24/19 09/24/19 09/25/19 18:33 23:38 05:11 Sodium 134 L 136 138 Potassium 2.3 L* 2.6 L 2.5 L* Chloride 93 L 98 101 Carbon Dioxide 34 H 34 H 31 BUN 8 6 L 5 L Creatinine 1.07 0.77 D 0.63 Glucose 189 H 98 76 Calcium 8.5 7.4 L 7.2 L Cardiac Enzymes 09/24/19 Range/Units 18:33 Troponin I < 0.015 (0-0.045) ng/ml Liver Function 09/24/19 09/25/19 Range/Units 18:33 05:11 Total Bilirubin 1.1 H 0.8 (0.2-1) mg/dl Direct Bilirubin 0.5 H (0-0.2) mg/dl AST 125 H 86 H (15-37) U/L ALT 126 H 87 H (12-78) U/L Alkaline Phosphatase 306 H 212 H (45-117) U/L Albumin 2.8 L 2.1 L (3.4-5.0) gm/dl Urine 09/25/19 Range/Units 06:25 Urine Color Yellow Urine Appearance Clear (Clear) Urine pH >= 9.0 H (4.5-7.5) Ur Specific [place] 1.034 H (1.000-1.030) Urine Protein Negative (Negative) Urine Glucose (UA) Negative (Negative)
[2019-09-25 16:30] LABS: BUN Creatinine Ratio 7.5 (10-20); Calcium 7.8 mg/dl (8.5-10.1); Creatinine Clr Calc Pharmacy 75.7 ml/min; Est GFR (African American) 109.2; Est GFR (Non-African American) 94.2
[2019-09-25 16:31] LABS: Potassium 4.3 mmol/L (3.5-5.1)
[2019-09-25] MEDS: NORTRIPTYLINE HCL 25 MG CAP PO SCH (19:40)
[2019-09-25] MEDS: ACETAMINOPHEN 325 MG TAB PO PRN (19:44)
[2019-09-26 05:49] LABS: Hematocrit (blood only) 29.1 % (37-47); Hemoglobin 9.6 g/dL (12.0-16.0); Mean Corpuscular Hemoglobin 30.9 pg (25-34); Mean Corpuscular Volume 93.6 fL (80-100); RDW Coefficient of Variation 20.3 % (11.5-14.5); RDW Standard Deviation 68.8 fL (36.4-46.3); Red Blood Count 3.11 M/uL (4.2-5.4); White Blood Count 3.83 K/uL (4.8-10.8)
[2019-09-26 06:20] LABS: BUN Creatinine Ratio 13.1 (10-20); Bilirubin Direct 0.3 mg/dl (0-0.2); Creatinine Clr Calc Pharmacy 87.5 ml/min; Est GFR (African American) 113.2; Est GFR (Non-African American) 97.7; Magnesium 1.9 mg/dl (1.8-2.4); Potassium 4.2 mmol/L (3.5-5.1)
[2019-09-26 06:25] LABS: Bilirubin,Total 0.6 mg/dl (0.2-1); Phosphorus 2.9 mg/dl (2.5-4.9); Total Protein 4.9 gm/dl (6.4-8.2)
[2019-09-26 06:29] LABS: Mean Platelet Volume 8.8 fL (7.4-10.4); Platelet Count 95 K/uL (130-400)
[2019-09-26 07:11] LABS: Anisocytosis Present; Basophils # (auto) 0.02 K/uL (0-0.2); Basophils % (auto) 0.5 %; Eosinophils # (auto) 0.09 K/uL (0-0.5); Eosinophils % (auto) 2.3 %; Lymphocytes # (auto) 1.16 K/uL (1.2-3.4); Lymphocytes % (auto) 30.3 %; Monocytes # (auto) 0.28 K/uL (0.11-0.59); Monocytes % (auto) 7.3 %; Neutrophils # (auto) 2.28 K/uL (1.4-6.5); Neutrophils % (auto) 59.6 %; Polychromasia 1+
[2019-09-26] MEDS: SUCRALFATE 1 GM TAB PO SCH ×4 (07:48→19:51)
[2019-09-26] MEDS: DULOXETINE HCL 30 MG CAP PO SCH ×2 (07:48→19:51)
[2019-09-26] MEDS: PANTOprazole 40 MG TAB PO SCH (07:49)
[2019-09-26] MEDS: THIAMINE HCL 100 MG TAB PO SCH (07:49)
[2019-09-26] MEDS: CYANOCOBALAMIN 500 MCG TABLET (VITAMIN B-12) PO SCH (07:49)
[2019-09-26] MEDS: GABAPENTIN 300 MG CAP PO SCH ×3 (07:49→19:51)
[2019-09-26] MEDS: miSOPROStoL 100 MCG TAB PO SCH ×4 (07:49→19:51)
[2019-09-26] MEDS: FOLIC ACID 1 MG TAB PO SCH (07:49)
[2019-09-26] MEDS ORDERED: SODIUM CHLORIDE 0.9% 500 ML IV ONE (11:20)
[2019-09-26] MEDS: ACETAMINOPHEN 325 MG TAB PO PRN (15:05)
--- NOTE | 2019-09-26 16:36 | Hospitalist Progress Note ---
Date of Service September 26, 2019 Assessment & Plan (1) Gastroenteritis: Gastroenteritis CT ABD:No acute process of the abdomen or pelvis. Stable operative changes consistent with gastric bypass type procedure and cholecystectomy. Stable 7 mm nodule left lung base. Stable fatty replacement of the liver. Fecal Occult:Negative Stool Studies (Cdiff, Cx):Negative Advance diet today Continue IV fluids Prolonged QTC Avoid QTC prolonging meds Repeat EKG: QTC shortened Pulmonary nodule Incidental finding on CT scan History of remote smoking Follow-up with repeat CT as outpatient (2) Hypokalemia due to excessive gastrointestinal loss of potassium: Secondary to GI losses Poor oral intake contributing Replete as needed Monitor (3) Hypophosphatemia: Severe hypophosphatemia Secondary to alcoholism, GI loses and poor oral intake Replace electrolytes as needed (4) LFTs abnormal: Chronic transaminitis CT ABD:Stable fatty replacement of the liver. Avoid hepatotoxic agents as able Monitor LFTs (5) Alcohol abuse: Consult to quit alcohol use Monitor for withdrawal On gabapentin at home Continue thiamine, folic acid Pancytopenia Likely secondary to chronic alcohol use Currently no acute bleeding issues Monitor platelet count (6) Status post gastric bypass for obesity: H/O Peptic ulcer Continue sucralfate, Cytotec, PPI Monitor DVT Px: SCDs re: Anemia, thrombocytopenia CODE STATUS Full resuscitation without mechanical ventilation Disposition PT/OT prior to discharge Subjective Patient is seen and examined at bedside Feels better today Dizziness improved No nausea, vomiting today Has chronic abdominal discomfort which is unchanged Tolerating diet Had 1 loose BM today Denies any chest pain, shortness of breath Offers no other complaints Review of Systems Review of Systems: All systems reviewed & are unremarkable except as noted in HPI & below Physical Exam Physical Exam: Physical Exam: Vitals signs as noted above General Appearance:Chronic ill appearing, no apparent distress Head: normocephalic, Atraumatic Eyes: normal inspection, EOMI Neck: supple, Trachea midline Respiratory/Chest: Normal breath sounds, CTA Cardiovascular: S1, S2, No murmur Abdomen/GI:Soft, Mild tender, Bowel sounds present Extremities/Musculoskelatal:normal inspection, no edema Neurologic/Psych:AAOX3, grossly no focal neurological deficits Skin: normal color, warm Results & Data Vital Signs (Past 12 Hours) Vital Signs Temp Pulse Pulse Resp BP Pulse Ox 09/26/19 15:00 36.6 C 86 18 121/77 94 09/26/19 12:40 112/69 09/26/19 11:02 36.8 C 83 18 92/60 L 97 09/26/19 06:51 36.8 C 77 18 110/72 94 Laboratory Results Short CBC 09/26/19 Range/Units 05:19 WBC 3.83 L (4.8-10.8) K/uL Hgb 9.6 L (12.0-16.0) g/dL Hct 29.1 L (37-47) % Plt Count 95 L (130-400) K/uL BMP 09/25/19 09/26/19 15:51 05:19 Sodium 138 137 Potassium 4.3 D 4.2 Chloride 104 106 Carbon Dioxide 27 26 BUN 5 L 8 Creatinine 0.67 0.60 Glucose 79 67 L Calcium 7.8 L 8.0 L Liver Function 09/26/19 Range/Units 05:19 Total Bilirubin 0.6 (0.2-1) mg/dl Direct Bilirubin 0.3 H (0-0.2) mg/dl AST 75 H (15-37) U/L ALT 76 (12-78) U/L Alkaline Phosphatase 219 H (45-117) U/L Albumin 2.0 L (3.4-5.0) gm/dl
[2019-09-26] MEDS: NORTRIPTYLINE HCL 25 MG CAP PO SCH (19:51)
[2019-09-27 06:01] LABS: Basophils # (auto) 0.02 K/uL (0-0.2); Basophils % (auto) 0.4 %; Eosinophils # (auto) 0.08 K/uL (0-0.5); Eosinophils % (auto) 1.6 %; Hematocrit (blood only) 29.8 % (37-47); Hemoglobin 9.8 g/dL (12.0-16.0); Immature Granulocytes # (auto) 0.02 K/uL (0.00-0.02); Immature Granulocytes % (auto) 0.4 %; Lymphocytes # (auto) 1.04 K/uL (1.2-3.4); Lymphocytes % (auto) 21.4 %; Mean Corpuscular Hemoglobin 30.4 pg (25-34); Mean Corpuscular Hgb Conc 32.9 g/dL (32-36); Mean Corpuscular Volume 92.5 fL (80-100); Mean Platelet Volume 8.8 fL (7.4-10.4); Monocytes # (auto) 0.39 K/uL (0.11-0.59); Neutrophils # (auto) 3.32 K/uL (1.4-6.5); Neutrophils % (auto) 68.2 %; Platelet Count 132 K/uL (130-400); RDW Coefficient of Variation 19.9 % (11.5-14.5); RDW Standard Deviation 67.7 fL (36.4-46.3); Red Blood Count 3.22 M/uL (4.2-5.4); White Blood Count 4.87 K/uL (4.8-10.8)
[2019-09-27 06:33] LABS: BUN Creatinine Ratio 9.2 (10-20); Bilirubin Direct 0.3 mg/dl (0-0.2); Creatinine Clr Calc Pharmacy 79.5 ml/min; Est GFR (African American) 109.7; Est GFR (Non-African American) 94.7; Potassium 4.2 mmol/L (3.5-5.1)
[2019-09-27 06:36] LABS: Bilirubin,Total 0.6 mg/dl (0.2-1); Total Protein 4.9 gm/dl (6.4-8.2)
[2019-09-27] MEDS: GABAPENTIN 300 MG CAP PO SCH ×3 (08:39→21:20)
[2019-09-27] MEDS: DULOXETINE HCL 30 MG CAP PO SCH ×2 (08:39→21:20)
[2019-09-27] MEDS: PANTOprazole 40 MG TAB PO SCH (08:39)
[2019-09-27] MEDS: THIAMINE HCL 100 MG TAB PO SCH (08:40)
[2019-09-27] MEDS: SUCRALFATE 1 GM TAB PO SCH ×4 (08:40→21:20)
[2019-09-27] MEDS: miSOPROStoL 100 MCG TAB PO SCH ×4 (08:40→21:21)
[2019-09-27] MEDS: CYANOCOBALAMIN 500 MCG TABLET (VITAMIN B-12) PO SCH (08:40)
[2019-09-27] MEDS: FOLIC ACID 1 MG TAB PO SCH (08:40)
[2019-09-27] MEDS ORDERED: LOPERAMIDE HCL 2 MG CAP PO PRN (11:32)
[2019-09-27] MEDS ORDERED: MECLIZINE HCL 25 MG TAB PO PRN (11:39)
[2019-09-27] MEDS: SODIUM CHLORIDE 0.9% 1000ML 1,000 ML IV SCH ×2 (12:19→21:18)
[2019-09-27] MEDS: ACETAMINOPHEN 325 MG TAB PO PRN (16:08)
--- NOTE | 2019-09-27 17:24 | Hospitalist Progress Note ---
Date of Service September 27, 2019 Assessment & Plan (1) Gastroenteritis: Gastroenteritis CT ABD:No acute process of the abdomen or pelvis. Stable operative changes consistent with gastric bypass type procedure and cholecystectomy. Stable 7 mm nodule left lung base. Stable fatty replacement of the liver. Fecal Occult:Negative Stool Studies (Cdiff, Cx):Negative Tolerates regular diet Continue IV fluids Imodium as needed for diarrhea Ongoing dizziness Worsened from baseline as per patient Positive orthostatics Continue IV fluids Liberalize salt in diet Prolonged QTC Avoid QTC prolonging meds Repeat EKG: QTC shortened Pulmonary nodule Incidental finding on CT scan History of remote smoking Follow-up with repeat CT as outpatient (2) Hypokalemia due to excessive gastrointestinal loss of potassium: Secondary to GI losses Poor oral intake contributing Replete as needed Monitor (3) Hypophosphatemia: Severe hypophosphatemia Secondary to alcoholism, GI loses and poor oral intake Resolved Replace electrolytes as needed (4) LFTs abnormal: Chronic transaminitis CT ABD:Stable fatty replacement of the liver. Avoid hepatotoxic agents as able Monitor LFTs (5) Alcohol abuse: Consult to quit alcohol use Monitor for withdrawal On gabapentin at home Continue thiamine, folic acid Pancytopenia Likely secondary to chronic alcohol use Currently no acute bleeding issues Platelet count normalized (6) Status post gastric bypass for obesity: H/O Peptic ulcer Continue sucralfate, Cytotec, PPI Monitor DVT Px: SCDs re: Anemia, thrombocytopenia CODE STATUS Full resuscitation without mechanical ventilation Disposition PT/OT: Likely needs home with home health Subjective Patient is seen and examined at bedside Dizziness is improved but not back to baseline as per patient Had 2 loose bowel movements today Reports headache Has chronic abdominal discomfort which is unchanged as per patient Denies any chest pain, shortness of breath Review of Systems Review of Systems: All systems reviewed & are unremarkable except as noted in HPI & below Physical Exam Physical Exam: Physical Exam: Vitals signs as noted above General Appearance:Chronic ill appearing, no apparent distress Head: normocephalic, Atraumatic Eyes: normal inspection, EOMI Neck: supple, Trachea midline Respiratory/Chest: Normal breath sounds, CTA Cardiovascular: S1, S2, No murmur Abdomen/GI:Soft, Mild tender, Bowel sounds present Extremities/Musculoskelatal:normal inspection, no edema Neurologic/Psych:AAOX3, grossly no focal neurological deficits Skin: normal color, warm Results & Data Vital Signs (Past 12 Hours) Vital Signs Temp Pulse Resp BP Pulse Ox 09/27/19 15:07 36.7 C 83 16 116/69 96 09/27/19 07:22 36.7 C 96 H 16 99/65 L 94 Laboratory Results Short CBC 09/27/19 Range/Units 05:11 WBC 4.87 (4.8-10.8) K/uL Hgb 9.8 L (12.0-16.0) g/dL Hct 29.8 L (37-47) % Plt Count 132 (130-400) K/uL BMP 09/27/19 05:11 Sodium 135 L Potassium 4.2 Chloride 105 Carbon Dioxide 25 BUN 6 L Creatinine 0.66 Glucose 85 Calcium 8.0 L Liver Function 09/27/19 Range/Units 05:11 Total Bilirubin 0.6 (0.2-1) mg/dl Direct Bilirubin 0.3 H (0-0.2) mg/dl AST 53 H (15-37) U/L ALT 65 (12-78) U/L Alkaline Phosphatase 215 H (45-117) U/L Albumin 2.0 L (3.4-5.0) gm/dl
[2019-09-27] MEDS: NORTRIPTYLINE HCL 25 MG CAP PO SCH (21:22)
[2019-09-28 06:14] LABS: BUN Creatinine Ratio 9.9 (10-20); Bilirubin Direct 0.4 mg/dl (0-0.2); Calcium 8.1 mg/dl (8.5-10.1); Creatinine Clr Calc Pharmacy 83.3 ml/min; Est GFR (African American) 111.4; Est GFR (Non-African American) 96.1
[2019-09-28 06:17] LABS: Bilirubin,Total 0.7 mg/dl (0.2-1); Total Protein 4.9 gm/dl (6.4-8.2)
[2019-09-28] MEDS: PROMETHAZINE HCL 12.5 MG in SODIUM CHLORIDE 0.9% 50 ML IV PRN ×2 (10:11→17:32)
[2019-09-28] MEDS: FOLIC ACID 1 MG TAB PO SCH (10:36)
[2019-09-28] MEDS: PANTOprazole 40 MG TAB PO SCH (10:36)
[2019-09-28] MEDS: DULOXETINE HCL 30 MG CAP PO SCH ×2 (10:36→20:26)
[2019-09-28] MEDS: GABAPENTIN 300 MG CAP PO SCH ×3 (10:36→20:27)
[2019-09-28] MEDS: THIAMINE HCL 100 MG TAB PO SCH (10:36)
[2019-09-28] MEDS: SUCRALFATE 1 GM TAB PO SCH ×4 (10:36→20:27)
[2019-09-28] MEDS: CYANOCOBALAMIN 500 MCG TABLET (VITAMIN B-12) PO SCH (10:36)
[2019-09-28] MEDS: miSOPROStoL 100 MCG TAB PO SCH ×4 (11:29→20:27)
[2019-09-28] MEDS: FLUDROCORTISONE ACETATE 0.1 MG TAB PO SCH (13:08)
[2019-09-28] MEDS: MoRPHine SULFATE 2 MG/ML CARP IV PRN (16:40)
--- NOTE | 2019-09-28 18:32 | Hospitalist Progress Note ---
Date of Service September 28, 2019 Assessment & Plan (1) Gastroenteritis: Gastroenteritis CT ABD:No acute process of the abdomen or pelvis. Stable operative changes consistent with gastric bypass type procedure and cholecystectomy. Stable 7 mm nodule left lung base. Stable fatty replacement of the liver. Fecal Occult:Negative Stool Studies (Cdiff, Cx):Negative Tolerates regular diet Received IV fluids Imodium as needed for diarrhea Ongoing dizziness Worsened from baseline as per patient Positive orthostatics Received IV fluids Liberalize salt in diet Started on Florinef Prolonged QTC Avoid QTC prolonging meds Repeat EKG: QTC shortened Pulmonary nodule Incidental finding on CT scan History of remote smoking Follow-up with repeat CT as outpatient (2) Hypokalemia due to excessive gastrointestinal loss of potassium: Secondary to GI losses Poor oral intake contributing Replete as needed Monitor (3) Hypophosphatemia: Severe hypophosphatemia Secondary to alcoholism, GI loses and poor oral intake Resolved Replace electrolytes as needed (4) LFTs abnormal: Chronic transaminitis CT ABD:Stable fatty replacement of the liver. Avoid hepatotoxic agents as able Monitor LFTs (5) Alcohol abuse: Counseled to quit alcohol use Monitor for withdrawal On gabapentin at home Continue thiamine, folic acid Pancytopenia Likely secondary to chronic alcohol use Currently no acute bleeding issues Platelet count normalized (6) Status post gastric bypass for obesity: H/O Peptic ulcer Continue sucralfate, Cytotec, PPI Monitor DVT Px: SCDs re: Anemia, thrombocytopenia CODE STATUS Full resuscitation without mechanical ventilation Disposition PT/OT: Likely needs home with home health Subjective Patient is seen and examined at bedside Had 2 episodes of vomiting today likely secondary to significant dizziness Positive orthostatics Has chronic abdominal discomfort Denies any chest pain, shortness of breath Plan to be started on Florinef today Review of Systems Review of Systems: All systems reviewed & are unremarkable except as noted in HPI & below Physical Exam Physical Exam: Physical Exam: Vitals signs as noted above General Appearance:Chronic ill appearing, no apparent distress Head: normocephalic, Atraumatic Eyes: normal inspection, EOMI Neck: supple, Trachea midline Respiratory/Chest: Normal breath sounds, CTA Cardiovascular: S1, S2, No murmur Abdomen/GI:Soft, Mild tender, Bowel sounds present Extremities/Musculoskelatal:normal inspection, no edema Neurologic/Psych:AAOX3, grossly no focal neurological deficits Skin: normal color, warm Results & Data Vital Signs (Past 12 Hours) Vital Signs Temp Pulse Resp BP Pulse Ox 09/28/19 15:27 36.9 C 77 16 137/80 97 09/28/19 07:25 36.6 C 76 16 121/69 97 Laboratory Results [facility] 09/28/19 05:14 Sodium 138 Potassium 4.0 Chloride 107 Carbon Dioxide 26 BUN 6 L Creatinine 0.63 Glucose 78 Calcium 8.1 L Liver Function 09/28/19 Range/Units 05:14 Total Bilirubin 0.7 (0.2-1) mg/dl Direct Bilirubin 0.4 H (0-0.2) mg/dl AST 48 H (15-37) U/L ALT 56 (12-78) U/L Alkaline Phosphatase 223 H (45-117) U/L Albumin 2.0 L (3.4-5.0) gm/dl
[2019-09-28] MEDS: NORTRIPTYLINE HCL 25 MG CAP PO SCH (20:26)
[2019-09-29] MEDS: MoRPHine SULFATE 2 MG/ML CARP IV PRN
[2019-09-29] MEDS: SUCRALFATE 1 GM TAB PO SCH ×2 (06:08→12:19)
[2019-09-29 07:06] LABS: BUN Creatinine Ratio 7.7 (10-20); Calcium 8.1 mg/dl (8.5-10.1); Creatinine Clr Calc Pharmacy 83.3 ml/min; Est GFR (African American) 111.4; Est GFR (Non-African American) 96.1; Magnesium 1.8 mg/dl (1.8-2.4); Potassium 3.3 mmol/L (3.5-5.1)
[2019-09-29] MEDS: FLUDROCORTISONE ACETATE 0.1 MG TAB PO SCH (07:43)
[2019-09-29] MEDS: DULOXETINE HCL 30 MG CAP PO SCH (07:43)
[2019-09-29] MEDS: PANTOprazole 40 MG TAB PO SCH (07:44)
[2019-09-29] MEDS: CYANOCOBALAMIN 500 MCG TABLET (VITAMIN B-12) PO SCH (07:44)
[2019-09-29] MEDS: GABAPENTIN 300 MG CAP PO SCH ×2 (07:44→13:50)
[2019-09-29] MEDS: FOLIC ACID 1 MG TAB PO SCH (07:44)
[2019-09-29] MEDS: miSOPROStoL 100 MCG TAB PO SCH ×2 (07:45→12:19)
[2019-09-29] MEDS: THIAMINE HCL 100 MG TAB PO SCH (07:45)
[2019-09-29] MEDS ORDERED: POTASSIUM CHLORIDE 20 MEQ TABCR PO ONE (09:45)
--- NOTE | 2019-09-29 12:50 | Hospitalist Progress Note ---
Date of Service September 29, 2019 Assessment & Plan (1) Gastroenteritis: Gastroenteritis CT ABD:No acute process of the abdomen or pelvis. Stable operative changes consistent with gastric bypass type procedure and cholecystectomy. Stable 7 mm nodule left lung base. Stable fatty replacement of the liver. Fecal Occult:Negative Stool Studies (Cdiff, Cx):Negative Tolerates regular diet Received IV fluids Imodium as needed for diarrhea Diarrhea resolved Ongoing dizziness Worsened from baseline as per patient Positive orthostatics Received IV fluids Liberalize salt in diet Continue Florinef Dizziness improved Prolonged QTC Avoid QTC prolonging meds Repeat EKG: QTC shortened Pulmonary nodule Incidental finding on CT scan History of remote smoking Follow-up with repeat CT as outpatient (2) Hypokalemia due to excessive gastrointestinal loss of potassium: Secondary to GI losses Poor oral intake contributing Replete as needed Monitor (3) Hypophosphatemia: Severe hypophosphatemia Secondary to alcoholism, GI loses and poor oral intake Resolved Replace electrolytes as needed (4) LFTs abnormal: Chronic transaminitis CT ABD:Stable fatty replacement of the liver. Avoid hepatotoxic agents as able Monitor LFTs (5) Alcohol abuse: Counseled to quit alcohol use Monitor for withdrawal On gabapentin at home Continue thiamine, folic acid Pancytopenia Likely secondary to chronic alcohol use Currently no acute bleeding issues Platelet count normalized (6) Status post gastric bypass for obesity: H/O Peptic ulcer Continue sucralfate, Cytotec, PPI Monitor DVT Px: SCDs re: Anemia, thrombocytopenia CODE STATUS Full resuscitation without mechanical ventilation Disposition Plan to discharge home with home health Subjective Patient is seen and examined at bedside States feeling much better today Denies any nausea, vomiting, diarrhea, abdominal pain. Dizziness, headache much improved Also denies any chest pain, shortness of breath Eager to be discharged Review of Systems Review of Systems: All systems reviewed & are unremarkable except as noted in HPI & below Physical Exam Physical Exam: Physical Exam: Vitals signs as noted above General Appearance:No apparent distress Head: normocephalic, Atraumatic Eyes: normal inspection, EOMI Neck: supple, Trachea midline Respiratory/Chest: Normal breath sounds, CTA Cardiovascular: S1, S2, No murmur Abdomen/GI:Soft, Mild tender, Bowel sounds present Extremities/Musculoskelatal:normal inspection, no edema Neurologic/Psych:AAOX3, grossly no focal neurological deficits Skin: normal color, warm Results & Data Vital Signs (Past 12 Hours) Vital Signs Temp Pulse Resp BP Pulse Ox 09/29/19 07:45 36.4 C L 78 16 119/68 94 Laboratory Results BMP 09/29/19 05:56 Sodium 138 Potassium 3.3 L D Chloride 107 Carbon Dioxide 26 BUN 5 L Creatinine 0.63 Glucose 75 Calcium 8.1 L
--- NOTE | 2019-09-29 13:01 | Discharge Summary ---
Date of Service September 29, 2019 Admission HPI Per Admitting Provider She is 63-year-old female with significant past medical history of hypertension, hyperlipidemia, type 2 diabetes, history of bariatric surgery, peptic ulcer disease, past history of alcohol and tobacco abuse, mood disorder and chronic iron deficiency anemia apparently has been complaining of dizziness when ambulance at since discharge from recent hospitalization and abdominal discomfort with nausea vomiting and diarrhea since Sunday last. She has had left upper chest wall/axillary abscess which treated and resolved. She denies any fever and/or chills with it but she complains of abdominal abdominal discomfort. She denies any coffee-ground vomiting and/or any blood in the stool or any black tarry stool. She feels chilly but denies any documented fever. She denies any chest pain, shortness of breath, palpitation, denies any problem with her urine and denies any numbness and tingling involving any of the extremities. She has been dizzy when ambulance but no recent fall and/or syncope. In the ER she was hemodynamically stable but was noted to have severely electrolyte depleted with elevated LFTs from that point she was admitted to telemetry unit for continuation of care. Admission Exam Per Admitting Provider Physical Exam: No apparent distress at rest Constitutional: well developed and + ill appearing; no acute distress Eyes: PERRL, conjunctivae normal, anicteric sclerae ENMT: external ear and nose normal, oropharynx normal Neck: trachea midline, no thyromegaly Respiratory: normal respiratory effort; no respiratory distress Auscultation: + diminished lung sounds; no rhonchi and no wheezes Cardiovascular: Rate/Rhythm: regular rhythm Heart Sounds: no murmur Gastrointestinal (Abdomen): Inspection/Auscultation: abdomen normal to inspection and normal bowel sounds Percussion/Palpation: + abdomen tender (Mildly tender in the epigastrium) and abdomen soft Musculoskeletal: No acute arthritis in any joint Neurologic: Alert, awake and oriented x3. Generally weak Lymphatic: no cervical or axillary lymphadenopathy Principal Diagnosis Gastroenteritis Orthostatic hypotension Hypophosphatemia Hypokalemia Discharge Data Allergies Allergy/AdvReac Type Severity Reaction Status Date / Time Sulfa (Sulfonamide Allergy Severe FACE/THROAT Verified 09/24/19 18:15 Antibiotics) SWELL UP Consultations 09/24/19 20:10 ED Decision to Admit Stat Procedures Performed CT ABD:No acute process of the abdomen or pelvis. Stable operative changes consistent with gastric bypass type procedure and cholecystectomy. Stable 7 mm nodule left lung base. Stable fatty replacement of the liver. CXR:Negative chest. Ordered Studies 09/24/19 18:08 CT abd pelvis IV con only Stat Hospital Course (1) Gastroenteritis: Gastroenteritis CT ABD:No acute process of the abdomen or pelvis. Stable operative changes consistent with gastric bypass type procedure and cholecystectomy. Stable 7 mm nodule left lung base. Stable fatty replacement of the liver. Fecal Occult:Negative Stool Studies (Cdiff, Cx):Negative Tolerates regular diet Received IV fluids Imodium as needed for diarrhea Diarrhea resolved Ongoing dizziness Worsened from baseline as per patient Positive orthostatics Received IV fluids Liberalize salt in diet Continue Florinef Dizziness improved Prolonged QTC Avoid QTC prolonging meds Repeat EKG: QTC shortened Pulmonary nodule Incidental finding on CT scan History of remote smoking Follow-up with repeat CT as outpatient (2) Hypokalemia due to excessive gastrointestinal loss of potassium: Secondary to GI losses Poor oral intake contributing Replete as needed Monitor (3) Hypophosphatemia: Severe hypophosphatemia Secondary to alcoholism, GI loses and poor oral intake Resolved Replace electrolytes as needed (4) LFTs abnormal: Chronic transaminitis CT ABD:Stable fatty replacement of the liver. Avoid hepatotoxic agents as able Monitor LFTs (5) Alcohol abuse: Counseled to quit alcohol use Monitor for withdrawal On gabapentin at home Continue thiamine, folic acid Pancytopenia Likely secondary to chronic alcohol use Currently no acute bleeding issues Platelet count normalized (6) Status post gastric bypass for obesity: H/O Peptic ulcer Continue sucralfate, Cytotec, PPI Monitor DVT Px: SCDs re: Anemia, thrombocytopenia CODE STATUS Full resuscitation without mechanical ventilation Disposition Plan to discharge home with home health Total Time Total Time Spent Total Time Spent (In Minutes): 37 minutes Total Time Includes: Examination of the Patient, Discharge Planning, Medication Reconciliation, Communication With Other Providers and Other Discharge Plan Discharge Items Patient Disposition: Home - Home Health Services Reason For Visit: GASTROENTERITIS WITH SEVERE ELECTROLYTES IMBALANCE Discharge Diagnosis: Gastroenteritis Orthostatic hypotension Hypophosphatemia Hypokalemia Activity: Resume your previous activity Exercise/Sports: Gradually increase as tolerated Non-emergency contact: Primary Care Provider Call non-emergency contact if: you have any medication questions, your symptoms worsen, your pain is not controlled, your pain is worsening, your pain is unusual for you, your pain is concerning for you and you have a fever Follow-up/Referrals: Jelly Quintanilla, [Primary Care Provider] - Diet: Regular Addtl Attending Provider Instructions: Follow-up with your primary care physician on October 06, 2019 at 12:45 PM Liberalize salt in diet as advised. Increase your oral fluid intake as advised. Seek immediate medical attention if your symptoms reoccur or worsen Pending Studies at Discharge: No Stand-Alone Forms: My [facility], Smoking Cessation Medications and DC Order Prescriptions: New meclizine 25 mg Tablet 25 mg PO Q8H PRN (Reason: dizziness or vertigo) Qty: 30 RF: 0 fludrocortisone 0.1 mg Tablet 0.1 mg PO QAM 30 Days Qty: 30 RF: 0 Continued nortriptyline 25 mg Capsule 25 mg PO HS RF: 0 thiamine HCl (vitamin B1) [Vitamin B-1] 100 mg Tablet 100 mg PO QAM Qty: 30 RF: 1 sucralfate [Carafate] 1 gram tablet 1 g PO ACHS RF: 0 ondansetron HCl 4 mg tablet 4 mg PO Q8H PRN (Reason: Nausea) RF: 0 cyanocobalamin (vitamin B-12) [Vitamin B-12] 500 mcg Tablet 500 mcg PO DAILY RF: 0 esomeprazole magnesium [Nexium] 40 mg capsule,delayed release(DR/EC) 40 mg PO DAILY RF: 0 misoprostol [Cytotec] 100 mcg tablet 100 mcg PO QID RF: 0 gabapentin 300 mg Capsule 300 mg PO TID RF: 0 folic acid 1 mg Tablet 1 mg PO DAILY RF: 0 duloxetine [Cymbalta] 30 mg capsule,delayed release(DR/EC) 30 mg PO BID RF: 0 Discharge Orders: Discharge Order (Routine); Ordered 09/29/19 Ordered By: Tobias Rodas/Other Patient Handouts: Hypokalemia Dc Admission Data Admit Date/Time: 09/24/19 20:46 Attending Provider: Tobias Allen Admit Provider: Samreen Mcmahon Primary Care Provider: Jelly Quintanilla Other Providers: [facility] ; Alexander Fuentes Other Interventions: Discharge Summary Assessment (RN) Last Done: 09/29/19 13:29 DC Date/Time DO NOT enter until pt leaves facility: 09/29/19 15:55
== END 2019-09-29 15:55 | disposition home health service (06) | DRG 392 ==
LOC: ED 17:47 → 2E 20:46 → 3W 09-26 14:43

== ENCOUNTER 2019-11-17 01:48 | Inpatient (IN) ==
[2019-11-17] MEDS ORDERED: fentaNYL citrate 100 MCG/2 ML VIAL IV STA (02:15)
[2019-11-17] MEDS ORDERED: SODIUM CHLORIDE 0.9% 1000ML 1,000 ML IV ONE ×2 (02:15→03:10)
[2019-11-17 02:21] LABS: Hematocrit (blood only) 31.2 % (37-47); Hemoglobin 10.5 g/dL (12.0-16.0); Mean Corpuscular Hemoglobin 31.5 pg (25-34); Mean Corpuscular Hgb Conc 33.7 g/dL (32-36); Mean Corpuscular Volume 93.7 fL (80-100); Platelet Count 157 K/uL (130-400); RDW Coefficient of Variation 16.9 % (11.5-14.5); RDW Standard Deviation 58.3 fL (36.4-46.3); Red Blood Count 3.33 M/uL (4.2-5.4); White Blood Count 8.47 K/uL (4.8-10.8)
[2019-11-17 02:30] LABS: INR 1.1 (0.9-1.1); Prothrombin Time 11.5 Seconds (9.0-12.0)
--- NOTE | 2019-11-17 02:37 | Emergency Department Note ---
ED Provider Note Name: DANEILITO WHITT Age: 63 Arrives Via: Ambulance Informant: Patient CC: Diffuse Pain HPI: 63F arrives for evaluation of diffuse pain. Patient with 5 days of nausea and vomiting. She has been unable to keep any fluids or medications down for the previous few days. Notes she felt weak and fell on her chair the other day. Worsening weakness with increasing diffuse body aches over the last few days. States pain started in low back but now is everywhere throughout chest, abdomen, and back. Pain is cramping and worse with movement. Better with staying still. She has been unable to use any Tylenol nor motrin due to vomiting. She tried Jello earlier but found out it had alcohol in it. Admits history of alcoholism but denies recent consumption other than Jello. Denies fevers, chills, syncope, sob, headache, neck pain, leg swelling, rashes, nor other symptoms. ROS: See above HPI for pertinent positives & negatives. A total of 10 systems reviewed and were otherwise negative. Past Medical History:Alcoholism, Sepsis, Hypokalemia Past Surgical History:Gastric Bypass, Cholecystectomy, Hysterectomy, Appendectomy Family History:States no medical problems in familyR Social History:Retired, lives with friend, denies recent etoh, former smoker, denies drug use Home Medications:B12, nexsium, folic acid, levothyroixine, thiamine Allergies:Sulfa Vitals:Blood Pressure 92/60, Pulse 90, Resp 25, T 366C, O2 3% on RA Physical Exam: GENERAL: Patient is chronically unwell appearing and in moderate distress. Dehydrated appearing, pain with any movement EYES: ++ jaundice sclera, unremarkable pupils. ENT: Mucous membranes dry, no nasal congestion. NECK: No masses appreciated, nomeningismus, trachea is midline. RESPIRATORY: No dyspnea. Clear to auscultation and equal bilaterally. No wheeze, no rhonchi. CARDIOVASCULAR: Tachy.No murmurs, rubs, gallops appreciated. GASTROINTESTINAL: Diffuse TTP though no overt no peritonitis.Bowel sounds positive.No masses appreciated. BACK: Diffuse non-specific TTP, no specific CVA tenderness EXTREMITIES: Normal motion all extremities, no cyanosis, no edema. NEUROLOGIC: Alert and oriented, no acute motor or sensory deficits, no focal weakness, cranial nerves grossly intact. SKIN: No rash, + jaundice, no diaphoresis. ED Course: Prior Medical Record, Triage/Nursing Notes, Medications, Allergies reviewed by Me Vital Signs: reviewed and remarkable for Hypotension Labs:Reviewed and remarkable for HypoK Interventions: saline lock, nss bolus IV 2 L , Fentanyl 50mcg IV Imaging:X ray results are stated below per my interpretation: Chest: 1 view: New LLL infiltrate vs effusion EKG:Per My Interpretation: Indication Hypotension: ST 106 bpm, qtc 520. No Ectopy. No Ischemia. Compared to EKG 09/26/19, HR increased and baseline poor Consults:Dr Lacy Mcwilliams Hospitalist Reassessments/Times: Multiple, BP improving, pain improved. Blood pressure:Normal.No Referral necessary Disposition:Hospitalization Differentials:Sepsis, Infectious (UTI/Pneumonia/Meningitis/etc), Metab olic/Electrolyte, Abnormality, Cardiac, Dehydration, Anemia, Hepatic, Endocrine, Toxicologic, Neurologic, amongst other pathologies entertained. Medical Decision Makin yr old female with history alcoholism, sepsis, hypokalemia arrives with diffuse pains and vomiting. Did fall a few days ago with beginning of pain. Also nausea/vomiting several days. With diffuse findings and initial hypotension/tachy and dehydrated sepsis work-up initiated with IV fluid bolus. BP improved with IV fluids. Labs with normal Lactate and normal wbc. CXR with LLL abnormality thus CT chest ordered. With diffuse abdo pain as well CT done of abdomen. Imaging reveals acute left posterior rib fractures. Also noted is a left loculated pleural effusion. Unclear if this is infective or not. Does not sound like hemothorax. I do not feel indication to transfer to trauma center. Given no fever, wbc elevation, normal LA, and resolution of abnormal vitals with IV fluids, will hold off on empiric abx for the moment. Bili is quite elevated which may just be from gastroenteritis and n/v last few days though will need further work-up and evaluation. She is much more comfortable with just some small bolus Fentanyl. Impression: Acute Hypotension Acute Dehydration Pleural Effusion, Left Left Rib Fracture Acute Hyponatremia Nausea and Vomiting Critical Care Time: I have personally spent 35 minutes of critical care time in the direct management of this patient. Hypotension requiring fluid resus. This was a life/limb threatening event. This 35 minutes is in excess of all separately billable procedures. Florentin Kent MD Impression & Plan Acute dehydration, Acute hypotension, Pleural effusion, left, Left rib fracture, Acute hyponatremia, Nausea & vomiting Past Med/Surg History Social History Preferred Language: Uzbek Communication Ability: Effective Lamp Replacer Required: No Beliefs That Will Affect Care: None Current Living Situation: Other Current Living Situation Comment: Friend Feels Safe at Home: Yes Safety Concerns: Feels Safe At This Time Smoking Status: Former smoker Tobacco Type: cigarettes ; Second Hand Exposure: Yes ; Hx Alcohol Use: Yes Alcohol type: beer Hx Substance Use: No Results & Data Vital Signs Vital Signs - 24 hr 11/17/19 01:53 11/17/19 01:54 11/17/19 02:00 Temperature 36.6 C Temperature Source Oral Pulse Rate 113 H 115 H 108 H Pulse Rate from SpO2 Sensor 115 H 108 H Respiratory Rate 23 20 21 Respiratory Effort / Characteristics Non-Labored Spontaneous Respiratory Depth Normal Respiratory Pattern Regular Blood Pressure 87/55 L 87/55 L 92/60 L Blood Pressure Mean 68 65 70 Blood Pressure Position Left Lateral Pulse Oximetry 97 95 95 Oxygen Delivery Method Room Air Room Air Room Air Sepsis Recent Fever Within 48 Hours No Sepsis New/Unexplained Change in Mental Status No Sepsis Action Taken by Nursing No Action Required 11/17/19 02:30 11/17/19 02:53 11/17/19 03:00 Temperature Temperature Source Pulse Rate 90 89 95 H Pulse Rate from SpO2 Sensor 88 89 93 H Respiratory Rate 25 H 22 21 Respiratory Effort / Characteristics Respiratory Depth Respiratory Pattern Blood Pressure 108/66 117/63 Blood Pressure Mean 77 81 Blood Pressure Position Pulse Oximetry 93 96 96 Oxygen Delivery Method Room Air Sepsis Recent Fever Within 48 Hours Sepsis New/Unexplained Change in Mental Status Sepsis Action Taken by Nursing 11/17/19 03:01 11/17/19 03:31 11/17/19 03:32 Temperature Temperature Source Pulse Rate 89 90 85 Pulse Rate from SpO2 Sensor 89 86 85 Respiratory Rate 21 25 H 20 Respiratory Effort / Characteristics Respiratory Depth Respiratory Pattern Blood Pressure 131/72 Blood Pressure Mean 90 Blood Pressure Position Pulse Oximetry 96 96 Oxygen Delivery Method Sepsis Recent Fever Within 48 Hours Sepsis New/Unexplained Change in Mental Status Sepsis Action Taken by Nursing 11/17/19 03:33 11/17/19 04:00 11/17/19 04:01 Temperature Temperature Source Pulse Rate 88 85 87 Pulse Rate from SpO2 Sensor 87 85 88 Respiratory Rate 23 22 25 H Respiratory Effort / Characteristics Respiratory Depth Respiratory Pattern Blood Pressure 125/64 Blood Pressure Mean 81 Blood Pressure Position Pulse Oximetry 94 95 95 Oxygen Delivery Method Sepsis Recent Fever Within 48 Hours Sepsis New/Unexplained Change in Mental Status Sepsis Action Taken by Nursing 11/17/19 04:30 11/17/19 04:31 Temperature Temperature Source Pulse Rate 87 88 Pulse Rate from SpO2 Sensor 87 88 Respiratory Rate 16 21 Respiratory Effort / Characteristics Respiratory Depth Respiratory Pattern Blood Pressure 124/70 Blood Pressure Mean 90 Blood Pressure Position Pulse Oximetry 96 95 Oxygen Delivery Method Sepsis Recent Fever Within 48 Hours Sepsis New/Unexplained Change in Mental Status Sepsis Action Taken by Nursing Laboratory Data Result diagrams: 11/17/19 01:57 11/17/19 01:57 Lab Results 11/17/19 11/17/19 11/17/19 Range/Units 01:57 01:57 01:57 WBC 8.47 (4.8-10.8) K/uL RBC 3.33 L (4.2-5.4) M/uL Hgb 10.5 L (12.0-16.0) g/dL Hct 31.2 L (37-47) % MCV 93.7 (80-100) fL MCH 31.5 (25-34) pg MCHC 33.7 (32-36) g/dL RDW Std Deviation 58.3 H (36.4-46.3) fL RDW Coeff of Taye 16.9 H (11.5-14.5) % Plt Count 157 (130-400) K/uL MPV 10.0 (7.4-10.4) fL Immature Gran % (Auto) 0.7 % Neut % (Auto) 87.5 % Lymph % (Auto) 5.2 % Hand % (Auto) 6.5 % Eos % (Auto) 0.0 % Baso % (Auto) 0.1 % Immature Gran # (Auto) 0.06 H (0.00-0.02) K/uL Neut # (Auto) 7.41 H (1.4-6.5) K/uL Lymph # (Auto) 0.44 L (1.2-3.4) K/uL Hand # (Auto) 0.55 (0.11-0.59) K/uL Eos # (Auto) 0.00 (0-0.5) K/uL Baso # (Auto) 0.01 (0-0.2) K/uL Toxic Vacuolation Occasional Dohle Bodies Occasional Rouleaux 1+ PT 11.5 (9.0-12.0) Seconds INR 1.1 (0.9-1.1) Sodium 132 L (136-145) mmol/L Potassium 2.6 L (3.5-5.1) mmol/L Chloride 89 L (98-107) mmol/L Carbon Dioxide 23 (21-32) mmol/L Anion Gap 20.0 H (3-11) BUN 17 (7-18) mg/dl Creatinine 0.89 (0.6-1.2) mg/dl Est Cr Clr Drug Dosing 59.0 ml/min Est GFR ( Amer) 80.5 Est GFR (Non-Af Amer) 69.5 BUN/Creatinine Ratio 19.0 (10-20) Glucose 67 L (70-99) mg/dl Lactate (0.4-2.0) mmol/L Calcium 7.8 L (8.5-10.1) mg/dl Magnesium 1.7 L (1.8-2.4) mg/dl Total Bilirubin 4.6 H (0.2-1) mg/dl Direct Bilirubin 3.5 H (0-0.2) mg/dl AST 128 H (15-37) U/L ALT 56 (12-78) U/L Alkaline Phosphatase 181 H (45-117) U/L Ammonia (11-32) umol/L Troponin I 0.017 (0-0.045) ng/ml Total Protein 5.3 L (6.4-8.2) gm/dl Albumin 1.7 L (3.4-5.0) gm/dl Lipase 92 (73-393) U/L Ethyl Alcohol mg/dL (0-3) mg/dl 11/17/19 11/17/19 11/17/19 Range/Units 02:33 02:33 02:33 WBC (4.8-10.8) K/uL RBC (4.2-5.4) M/uL Hgb (12.0-16.0) g/dL Hct (37-47) % MCV (80-100) fL MCH (25-34) pg MCHC (32-36) g/dL RDW Std Deviation (36.4-46.3) fL RDW Coeff of Taye (11.5-14.5) % Plt Count (130-400) K/uL MPV (7.4-10.4) fL Immature Gran % (Auto) % Neut % (Auto) % Lymph % (Auto) % Hand % (Auto) % Eos % (Auto) % Baso % (Auto) % Immature Gran # (Auto) (0.00-0.02) K/uL Neut # (Auto) (1.4-6.5) K/uL Lymph # (Auto) (1.2-3.4) K/uL Hand # (Auto) (0.11-0.59) K/uL Eos # (Auto) (0-0.5) K/uL Baso # (Auto) (0-0.2) K/uL Toxic Vacuolation Dohle Bodies Rouleaux PT (9.0-12.0) Seconds INR (0.9-1.1) Sodium (136-145) mmol/L Potassium (3.5-5.1) mmol/L Chloride (98-107) mmol/L Carbon Dioxide (21-32) mmol/L Anion Gap (3-11) BUN (7-18) mg/dl Creatinine (0.6-1.2) mg/dl Est Cr Clr Drug Dosing ml/min Est GFR ( Amer) Est GFR (Non-Af Amer) BUN/Creatinine Ratio (10-20) Glucose (70-99) mg/dl Lactate 1.9 (0.4-2.0) mmol/L Calcium (8.5-10.1) mg/dl Magnesium (1.8-2.4) mg/dl Total Bilirubin (0.2-1) mg/dl Direct Bilirubin (0-0.2) mg/dl AST (15-37) U/L ALT (12-78) U/L Alkaline Phosphatase (45-117) U/L Ammonia < 10.0 L (11-32) umol/L Troponin I (0-0.045) ng/ml Total Protein (6.4-8.2) gm/dl Albumin (3.4-5.0) gm/dl Lipase (73-393) U/L Ethyl Alcohol mg/dL < 3.0 (0-3) mg/dl Administered Medications Discontinued Medications Fentanyl Citrate (Fentanyl Citrate) 75 mcg IV NOW STA Stop: 11/17/19 02:16 Last Admin: 11/17/19 02:21 Dose: 75 mcg Documented by: [id number] Sodium Chloride (Nss 1000ml) 1,000 mls @ 999 mls/hr IV .Q1H1M ONE Stop: 11/17/19 03:15 Last Infusion: 11/17/19 03:13 Dose: 0 mls/hr Documented by: [id number] Admin: 11/17/19 02:21 Dose: 999 mls/hr Documented by: [id number] Sodium Chloride (Nss 1000ml) 1,000 mls @ 999 mls/hr IV .Q1H1M ONE Stop: 11/17/19 04:10 Last Infusion: 11/17/19 04:45 Dose: 0 mls/hr Documented by: [id number] Admin: 11/17/19 03:12 Dose: 999 mls/hr Documented by: [id number] Ioversol (Optiray 320 100ml) 100 ml IV ONCE PRN PRN Reason: Interaction Checking Stop: 11/21/19 03:32 Last Admin: 11/17/19 03:34 Dose: 93 ml Documented by: [id number] Discharge Plan Visit Data *Final* Discharge Date/Time: 11/17/19 06:04 Chief Complaint: Illness Stated Complaint: FALL ED Provider: Florentin Kent Discharge Problem: Acute dehydration, Acute hypotension, Pleural effusion, left, Left rib fracture, Acute hyponatremia, Nausea & vomiting Patient Disposition: Admitted As Inpatient Discharge Instructions Interventions: ED Discharge Assessment Last Done: 11/17/19 06:04 Discharge Problem: Left rib fracture Qualifiers: Encounter type: initial encounter Rib fracture type: multiple ribs Fracture type: closed Qualified Code(s): S22.42XA - Multiple fractures of ribs, left side, initial encounter for closed fracture Nausea & vomiting Qualifiers: Vomiting type: unspecified Vomiting Intractability: non-intractable Qualified Code(s): R11.2 - Nausea with vomiting, unspecified
[2019-11-17 02:40] LABS: Basophils # (auto) 0.01 K/uL (0-0.2); Basophils % (auto) 0.1 %; Dohle Bodies Occasional; Immature Granulocytes # (auto) 0.06 K/uL (0.00-0.02); Immature Granulocytes % (auto) 0.7 %; Lymphocytes # (auto) 0.44 K/uL (1.2-3.4); Lymphocytes % (auto) 5.2 %; Monocytes # (auto) 0.55 K/uL (0.11-0.59); Monocytes % (auto) 6.5 %; Neutrophils # (auto) 7.41 K/uL (1.4-6.5); Neutrophils % (auto) 87.5 %; Rouleaux 1+; Toxic Vacuolation Occasional
[2019-11-17 02:55] LABS: Albumin Level 1.7 gm/dl (3.4-5.0); Bilirubin Direct 3.5 mg/dl (0-0.2); Bilirubin,Total 4.6 mg/dl (0.2-1); Calcium 7.8 mg/dl (8.5-10.1); Est GFR (African American) 80.5; Est GFR (Non-African American) 69.5; Magnesium 1.7 mg/dl (1.8-2.4); Potassium 2.6 mmol/L (3.5-5.1); Total Protein 5.3 gm/dl (6.4-8.2); Troponin I 0.017 ng/ml (0-0.045)
[2019-11-17] MEDS ORDERED: IOVERSOL 100ml IV PRN (03:33)
[2019-11-17] MEDS ORDERED: MAGNESIUM SULFATE / D5W 1 GM/100 ML BAG IV ONE (06:22)
[2019-11-17] MEDS ORDERED: PROMETHAZINE HCL 12.5 MG in SODIUM CHLORIDE 0.9% 50 ML IV PRN (06:22)
[2019-11-17] MEDS ORDERED: NITROGLYCERIN SL 0.4 MG/TAB TAB SL PRN (06:22)
[2019-11-17] MEDS ORDERED: POTASSIUM CHLORIDE 20 MEQ/15 ML UDC PO STA (06:22)
[2019-11-17] MEDS ORDERED: MECLIZINE HCL 25 MG TAB PO PRN (06:27)
--- NOTE | 2019-11-17 06:30 | XRay Report ---
XR chest 1V portable HISTORY: 63 years-old Female sepsis acute sepsis COMPARISON: Chest CT of same day, chest radiograph 09/24/2019 TECHNIQUE: Portable AP view of the chest FINDINGS: Patient is rotated towards the left. Cardiomediastinal and hilar silhouettes are within normal limits . No pneumothorax or overt pulmonary edema. The right lung is clear. Small left pleural effusion with left lung base consolidative opacities, new from comparison study. Acute and displaced fracture of t he posterior left 10th rib is better seen on comparison CT study of same day. Multiple remote right-s ided rib fractures. Left shoulder rotator cuff calcific tendinosis. Degenerative changes of the shoul ders and spine. IMPRESSION: 1. Acute and mildly displaced fracture of the posterior left 10th rib is better seen on comparison ch est CT of same day. 2. Small left pleural effusion with left lung base consolidative opacities are suggestive of atelecta sis. 3. No pneumothorax identified. ACT 112: Negative or not required by law. The above report was generated using voice recognition software. It may contain grammatical, syntax o r spelling errors. Electronically signed by: Mitchell Nina M.D. 11/17/2019 6:29 AM
[2019-11-17] MEDS: D5NSS + 20MEQ KCL 20 MEQ/1,000 ML BAG IV SCH ×2 (06:48→14:31)
[2019-11-17] MEDS: POTASSIUM CHLORIDE / WTR 10 MEQ/100 ML PLCT IV SCH ×4 (06:49→10:12)
--- NOTE | 2019-11-17 06:59 | CT Scan Report ---
CHEST CT WITH CONTRAST CT DOSE: 546.44 mGy.cm HISTORY: Acute sepsis with left lung base opacities. Patient reportedly fell 5 days prior. LLL infil trate vs effusion TECHNIQUE: Multiaxial CT images of the chest were performed following the IV administration of 93 cc of Optiray 320. A dose lowering technique was utilized adhering to the principles of ALARA. COMPARISON: CT abdomen and pelvis of same day and also 09/24/2019, CT abdomen pelvis 06/02/2011. FINDINGS: Multinodular thyroid, nodules on the right measuring up to 1.3 cm no adenopathy by CT size criteria. Heart is upper limits of normal in size. Three-vessel distribution of coronary arterial calcification s are noted. No thoracic aortic aneurysm. There is patency of the imaged great vessels. Tortuosity of the descending thoracic aorta. The opacified pulmonary arterial tree is unremarkable. Small mildly loculated left pleural effusion with groundglass and linear consolidative left lung base opacities. Multifocal mucus plugging of the left lower lobe main, lobar, segmental and subsegmental portions. Mild atelectasis of the inferior segment lingula. Right lung is clear. There are a few fuad gn-appearing fissural nodules noted adjacent to the right major fissure. 4 mm solid nodule of the lat eral segment right middle lobe, image 167 series 6 is incidentally noted. 4 mm nodule of the right lo wer lobe on image 193 series 6 is unchanged dating back to 2010 compatible with benign etiology. Mini mal subsegmental right basilar atelectasis. Operative changes of gastric bypass. Mild nonspecific thickening of the adrenal glands. Severe hepati c steatosis. Mild generalized body wall edema. Degenerative changes of the spine and shoulders. Multi ple remote appearing anterior right-sided rib fractures. Anterior right fourth and fifth fractures ma y be subacute. There is an acute mildly displaced fracture of the posterior left 10th and 11th ribs w ith mild comminution. There is subtle acute nondisplaced fractures of the anterior left second throug h eighth ribs. There is suggestion of a healed remote mid sternal fracture, just below the manubrium. IMPRESSION: 1. Acute mildly displaced fractures of the posterior left 10th and 11th ribs with subtle acute nondis placed fractures of the anterior left second through eighth ribs. No associated pneumothorax. 2. Small left pleural effusion with left lung base mucous plugging and left lung base opacities sugge stive of probable atelectasis. 3. Severe hepatic steatosis. 4. Additional findings as above. ACT 112: Negative or not required by law. Electronically signed by: Mitchell Nina M.D. 11/17/2019 6:58 AM
--- NOTE | 2019-11-17 07:18 | CT Scan Report ---
CT abd pelvis IV con only CLINICAL HISTORY: 63 years-old Female presenting with generalized abdominal pain, vomiting, elevated LFTs, recent fall 5 days ago. TECHNIQUE: Multidetector CT of the abdomen and pelvis was performed after the administration of intra venous contrast. IV contrast: 93 mL of Optiray 320. One or more dose lowering techniques were used co nsistent with the principles of ALARA (as low as reasonably achievable), including automatic exposure control, mA or kV adjustment to individual patient size, and/or use of iterative reconstruction. COMPARISON: 09/24/2019. CT DOSE (mGy.cm): The estimated cumulative dose is 546.44. FINDINGS: Quality Assurance Inspector topogram: Left basilar opacity. Lung bases: Normal heart size. Coronary artery and aortic valve calcification. Small left pleural eff usion new from prior. There may be trace dependent complexity of the fusion is predominantly water de nsity. Left basilar consolidation and volume loss. Mucous plugging noted and subsegmental airways to the left lower lobe. Liver: Normal morphology. Density consistent with severe hepatic steatosis. No focal lesion. Patent h epatic vasculature. Biliary: No intrahepatic or extrahepatic biliary ductal dilatation. Gallbladder surgically absent. Pancreas: Mild parenchymal atrophy. Spleen: Normal. Adrenal glands: Normal. Kidneys and ureters: Slight heterogeneity of enhancement of the upper pole the left kidney is felt to be artifactual related to beam hardening artifact arising from positioning of the arms at the sides. Kidneys otherwise normal. No nephrolithiasis or hydronephrosis. Calcifications in the pelvis consist ent with phleboliths. Bladder: Incompletely evaluated secondary to underdistention. Pelvic organs: Uterus surgically absent. Bowel: Calcified body adjacent to the proximal sigmoid colon may represent prior epiploic appendagiti s or a dropped gallstone. Postsurgical changes of antecolic [place]-en-Y gastric bypass. No bowel obstru ction. Distal anastomosis patent. No appendix visualized. Peritoneal cavity: No free fluid or intraperitoneal gas. Lymph nodes: No enlarged lymph nodes in the abdomen or pelvis. Vasculature: Atherosclerosis of the normal caliber abdominal aorta. IVC patent. Abdominal wall: Mild body wall edema. Small fat-containing right inguinal hernia. Musculoskeletal: Degenerative changes of the spine. Displaced fractures of the posterior left 10th an d 11th ribs, which are acute appearing. Old fracture deformity of the posterior right ninth rib. In s everal anterolateral ribs. IMPRESSION: 1. Displaced fractures of the posterior left 10th and 11th ribs, which are acute appearing. 2. Small left pleural effusion new from prior. Minimal complexity suggested dependently while the ma jority of this effusion is water density. It is difficult to exclude a minimal hemothorax component. 3. Left basilar atelectasis with mucous plugging. 4. No evidence of acute intra-abdominal injury. 5. [place]-en-Y gastric bypass without evidence of complication. 6. Severe hepatic steatosis. The report will be called/faxed according to standard departmental protocol. ACT 112: Negative or not required by law. Electronically signed by: Eric Verduzco M.D. 11/17/2019 7:16 AM
[2019-11-17] MEDS: OXYCODONE HCL IR 5 MG TAB (IMMEDIATE RELEASE) PO PRN ×3 (07:38→22:37)
[2019-11-17] MEDS: THIAMINE HCL 100 MG TAB PO SCH (07:39)
[2019-11-17] MEDS: LEVOTHYROXINE SODIUM 25 MCG TABLET PO SCH (07:39)
[2019-11-17] MEDS: CYANOCOBALAMIN 500 MCG TABLET (VITAMIN B-12) PO SCH (07:40)
[2019-11-17] MEDS: FLUDROCORTISONE ACETATE 0.1 MG TAB PO SCH (07:40)
[2019-11-17] MEDS: FOLIC ACID 1 MG TAB PO SCH (07:40)
[2019-11-17] MEDS: miSOPROStoL 100 MCG TAB PO SCH ×4 (07:40→21:30)
[2019-11-17] MEDS: PANTOprazole 40 MG TAB PO SCH (07:41)
[2019-11-17] MEDS: SUCRALFATE 1 GM TAB PO SCH ×4 (07:41→21:30)
[2019-11-17] MEDS: DULOXETINE HCL 30 MG CAP PO SCH ×2 (07:42→21:30)
[2019-11-17] MEDS: GABAPENTIN 300 MG CAP PO SCH ×3 (07:43→21:30)
--- NOTE | 2019-11-17 09:48 | History and Physical Report ---
DATE OF ADMISSION: 11/17/2019 CHIEF COMPLAINT: Nausea, vomiting, weakness, falls and pain and tenderness in torso. HISTORY OF PRESENT ILLNESS: This is a 63-year-old female with past medical history significant for hypertension; hyperlipidemia; type 2 diabetes, not on any medications; history of bariatric surgery; peptic ulcer disease; history of past alcohol abuse and tobacco abuse; mood disorder and chronic iron deficiency anemia, who lives with a friend, presents with ongoing nausea and vomiting since last Sunday evening. She is not able to take anything. Whatever she eats, she is vomiting and last 1 or 2 days, she is not able to take pills. On Sunday, a friend brought her Jell-O, after eating it she felt more sick and found out it made of alcohol. She is falling frequently.. She usually walks with help of walker. She is having pain and tenderness all over the chest and the abdomen and for this reasons she came to the hospital. When she came in, her blood pressures was 87/55. On last admission, she was given Florinef for orthostatic hypotension, but the patient says she was taking that medication. With the fluids, her blood pressure improved. Has some headache. No blurred vision, no earache, no runny nose, no sore throat, no cough, no fever, no chills. Denies any chest pain, but she has shortness of breath on exertion. Vomited several times since last few days. No blood in the vomitus. Mild abdominal discomfort. Did not moved her bowels because she is not eating anything. Denies any blood in the stools. Not micturating much, but no pain when micturating, no blood in the urine. No rash, no swelling in the legs. Currently resting comfortably and hemodynamically stable. Denies any recent alcohol use except for the alcohol with the Jell-O a friend brought. ALLERGIES: TO SULFA ANTIBIOTICS. PAST MEDICAL HISTORY: As mentioned above. PAST SURGICAL HISTORY: Colonoscopy, multiple EGDs, gastric bypass for obesity, knee arthroscopy, appendectomy, bilateral oophorectomy, hysterectomy, cholecystectomy. MEDICATIONS: The patient is on Nexium 40 mg p.o. daily, Florinef 0.1 mg p.o. daily, levothyroxine 25 mcg p.o. daily, meclizine 25 mg p.o. daily p.r.n., misoprostol 100 mcg 4 times daily, thiamine 100 mg p.o. daily, gabapentin 300 mg p.o. t.i.d., Zofran 4 mg p.o. 6 hours p.r.n., sucralfate 1 g p.o. a.c. and at bedtime, Cymbalta 30 mg p.o. daily, nortriptyline 25 mg p.o. at bedtime, folic acid 1 mg p.o. daily, vitamin B12 100 mcg p.o. daily. FAMILY HISTORY: Significant for brother has diabetes and heart disorder. Mother has diabetes. Son has diabetes. Sister has COPD. SOCIAL HISTORY: , lives with a friend. Former smoker. Quit drinking several years ago. No drug use. REVIEW OF SYSTEMS: As per HPI. Rest of systems are negative. PHYSICAL EXAMINATION: GENERAL: The patient is frail, not in acute distress. VITAL SIGNS: Temperature 36.6, pulse 85, respiratory rate 20, blood pressure when she came in was 87/55 and currently 131/72, oxygen 96% on room air. HEENT: No pallor, mild icterus present. Atraumatic. NECK: No JVD, no neck masses, no carotid bruits. CARDIOVASCULAR: S1, S2 heard. Regular rate and rhythm. No murmur, no gallop. RESPIRATORY SYSTEM: Normal AP diameter. No accessory muscle use. No wheezing, no crackles. ABDOMEN: Soft, bowel sounds present. Mild discomfort. No guarding. No rigidity. No distention. CENTRAL NERVOUS SYSTEM: Cranial nerves II-XII grossly intact. Nonfocal. EXTREMITIES: No edema, no erythema. LABORATORY DATA: WBC 8.4, hemoglobin 10.5, hematocrit 31.2, platelets 157. PT 11.5, INR 1.1. Sodium 132, potassium 2.6, chloride 189, bicarb 23, BUN 17, creatinine 0.8, serum glucose 67, lactate 1.9, calcium 7.8, magnesium 1.7. Total bilirubin 4.6, direct bilirubin 3.5, AST 128, ALT 56, alkaline phosphatase 181 ,Ammonia <10. Troponin I 0.017. Lipase 92. Ethyl alcohol less than 3. IMAGING: Chest x-ray: No acute findings seen. CT of the abdomen and pelvis preliminary report: No traumatic injury within abdomen or pelvis. No free fluid or free air. No fracture. Severe hepatic steatosis. Status post gastric bypass surgery, cholecystectomy and hysterectomy. CT chest preliminary report: Acute posterior left 10th and 11th rib fractures, multiple right-sided fractures Small left pleural effusion which is partially loculated. Atelectasis within the left lower lobe. No pneumothorax, no evidence of pneumonia. hepatic steatosis. ASSESSMENT AND PLAN: A 63-year-old female who presents with nausea and vomiting for few days, frequent falls and soreness all over the body and found to be hypotensive when she came in. 1. Nausea and vomiting, several episodes, possible gastroenteritis. Denies any diarrhea. States she did not moved her bowels because she is not eating anything. This nausea and vomiting going on since last Sunday. She is thought somewhat improved on Sunday, but her friend brought her Jell-O, which after eating she got more sicker. CT of abdomen and pelvis was unremarkable except for hepatic steatosis. We will keep her on clear liquid diet, IV fluids, IV antiemetics and monitor. 2. Hypotension probably from the dehydration from not eating. Also recently started on Florinef, may be she is not taking because of her nausea . Currently, blood pressure improved with fluids. Continue IV fluids. We will restart Florinef and monitor in med/surg tele. 3. Electrolyte abnormalities with hypokalemia and hypomagnesemia. Potassium 2.6, magnesium 1.7. We will replace and follow the repeat labs today. 4. elevated total bilirubin. Denies any recent alcohol use. CT abdomen and pelvis shows only hepatic steatosis. We will follow the repeat labs if still elevated will Consult GI. 5. Diabetes, not on medication. The patient is getting fluids with D5 normal saline. We will monitor blood sugars. We will follow HbA1c levels. 6. Peptic ulcer disease. Continue Nexium and sucralfate. 7. Recent pulmonary nodule. Follow up repeat CT scan as outpatient. 8. Alcoholism . Says quit alcohol long time back. We will continue thiamine and folic acid. We will monitor for any withdrawal symptoms. 9. Rib fractures. Possible ible cause of her pain in torso. From falls. Needs BP monitor. PT/OT. Pain control. 10.. Status post gastric bypass for obesity 11. DVT prophylaxis. SCDs for now. 12. Code status: Full. DISPOSITION: Monitor in the medical floor. PT and OT prior to discharge. Social Service to help with discharge planning. CHARLIE
--- NOTE | 2019-11-17 09:55 | Electrocardiogram Report ---
Test Reason : Blood Pressure : / mmHG Vent. Rate : 106 BPM Atrial Rate : 106 BPM P-R Int : 116 ms QRS Dur : 086 ms QT Int : 392 ms P-R-T Axes : 024 -55 078 degrees QTc Int : 520 ms Poor data quality, interpretation may be adversely affected Sinus tachycardia Left anterior fascicular block Abnormal ECG When compared with ECG of 26-SEP-2019 06:56, HR has increased by 27 bpm Otherwise no significant change Confirmed by Noe Leggett ([id number]) on 11/17/2019 9:55:36 AM Referred By: REFERRED SELF Confirmed By:Noe Leggett
--- NOTE | 2019-11-17 10:14 | Electrocardiogram Report ---
Test Reason : Blood Pressure : / mmHG Vent. Rate : 095 BPM Atrial Rate : 095 BPM P-R Int : 156 ms QRS Dur : 084 ms QT Int : 380 ms P-R-T Axes : 060 -42 054 degrees QTc Int : 477 ms Normal sinus rhythm Left axis deviation Borderline Criteria for Old Septal infarct Abnormal ECG When compared with ECG of 17-NOV-2019 02:05, Borderline Criteria for Old Septal infarct now present Otherwise no significant change Confirmed by Noe Leggett ([id number]) on 11/17/2019 10:13:43 AM Referred By: REFERRED SELF Confirmed By:Noe Leggett
--- NOTE | 2019-11-17 12:43 | Gastrointestinal Consultation ---
Date of Consultation November 17, 2019 Assessment & Plan (1) Hyperbilirubinemia: - 63 y/o female s/p RYGB with anastomotic ulcer, chronic n/v/abd pain with acute hyperbilirubinemia. Discussed diff dx with pt; concern for acute obstruction (stone?) - Check US ABD to evaluate for biliary stone/sludge - May need to consider MRCP - Given anatomy s/p RYGB, if she has biliary obstruction would likely require advanced endoscopy - Continue antiemetics, analgesia - Hydration with IVF - Correct electrolytes (hypoNA, hypoK, hypoMG) - Continue POST ANESTHESIA CARE UNIT NURSE PPI BID, carafate QID Thank you for allowing us to participate in the care of this patient. Please call with any acute changes, questions or concerns. Please see addendum below with additional recommendation from my supervising physician. (2) Nausea & vomiting: (3) LFTs abnormal: Supervising Physician Co-Signing Physician Notes Late entry: marilynn was seen and examined with Liz Bowie PA-C on 11/17. Her note reflects our findings and plan. LFT elevation. Labs in progress. Imaging of the biliary tree in progress. Abd exam is benign History of Present Illness Reason for Consultation: Hyperbilirubinemia Attending Physician: Tobias Allen MD History of Present Illness 63 y/o female pt with h/o T2DM, dyslipidemia, HTN, hypothyroidism, obestiy, s/p RYGB > 10 years ago w/ anastomotic ulcer, chronic n/v/abd pain, chronic transaminitis who developed nausea/vomiting last Sunday 11/12. She had a fall 11/13 and presented to the ER this AM with chest wall/abd pain; was found to have multiple left-sided rib fractures. GI consulted as her bilirubin was 4.6; AST 128, ALT 56, ALP 181; normal Lipase; HGB stable at 10.5. ETOH neg. In addition she has hyponatremia, hypokalemia, hypomagnesemia. CTAP with IV contrast with severe hepatic steatosis, surgically absent GB; no IHDD, EHDD. She endorses chronic intermittent abd pain which continues; she is maintained on PPI BID, carafate QID, cytotec QID; heartburn lately has been controlled. Currently this AM having continued abd/chest wall pain, nausea. In the last few days has had very little PO intake; no vomiting today. Last BM was at least several days ago; typically has 1-2 solid brown BMs per week. No recent mar stools, dark urine, jaundice, rashes, itching, fever, melena, hematochezia, hematemesis. Denies any recent ETOH intake; no Tylenol. She has ongoing weakness, fatigue. EGD 08/21/19: Normal esophagus, Z-line regular, gastric bypass with a normal- sized pouch and intact staple line. Gastrojejunal anastomosis with ulceration and moderate stenosis which was dilated; normal jejunum, no specimens. Allergies Allergy/AdvReac Type Severity Reaction Status Date / Time Sulfa (Sulfonamide Allergy Severe FACE/THROAT Verified 11/17/19 02:12 Antibiotics) SWELL UP Home Medications Home Medications Medication Instructions Recorded Confirmed Type cyanocobalamin (vitamin B-12) 500 mcg PO DAILY 08/16/19 11/17/19 History [Vitamin B-12] esomeprazole magnesium [Nexium] 40 mg PO DAILY 08/16/19 11/17/19 History folic acid 1 mg PO DAILY 08/16/19 11/17/19 History misoprostol [Cytotec] 100 mcg PO QID 08/16/19 11/17/19 History thiamine HCl (vitamin B1) [Vitamin 100 mg PO QAM #30 tab 08/22/19 11/17/19 Rx B-1] meclizine 25 mg PO Q8H PRN #30 tab 09/29/19 11/17/19 Rx duloxetine 30 mg PO BID 11/17/19 11/17/19 History fludrocortisone 0.1 mg PO DAILY 11/17/19 11/17/19 History gabapentin 300 mg PO TID 11/17/19 11/17/19 History levothyroxine 25 mcg PO DAILY 11/17/19 11/17/19 History nortriptyline 25 mg PO HS 11/17/19 11/17/19 History sucralfate 1 g PO ACHS 11/17/19 11/17/19 History Patient History Medical History Acute alcohol abuse (Chronic) Alcohol abuse Anemia, iron deficiency (Chronic) Arthritis (Chronic) Bacteremia DVT prophylaxis Esophagus disorder Gram positive sepsis Hypokalemia Small bowel obstruction (Resolved) Ulcer GI Surgical History History of incision and drainage (08/18/19) Left Axillary Abscess Incision and Drainage Dr. Perdue 08/18/19 Status post appendectomy (Chronic) Status post cholecystectomy (Chronic) Status post gastric bypass for obesity (Chronic) Status post hysterectomy (Chronic) Family History Other No pertinent family history in first degree relatives Social History Preferred Language: Indonesian Communication Ability: Effective Chimney Mechanic Required: No Beliefs That Will Affect Care: None marital status: Current Living Situation: Other Current Living Situation Comment: Friend Feels Safe at Home: Yes Safety Concerns: Feels Safe At This Time Smoking Status: Former smoker Tobacco Type: cigarettes ; Second Hand Exposure: Yes ; Hx Alcohol Use: Yes Alcohol type: beer and hard liquor Hx Substance Use: No Review of Systems Constitutional: + fatigue and + anorexia; no fever and no chills Eyes: Denies icterus Respiratory: no cough and no dyspnea + pain with rib fx Cardiovascular: + chest pain; no chest pain with activity, no dyspnea, no paroxysmal nocturnal dyspnea and no edema Gastrointestinal: as per Subjective / HPI Genitourinary: no dysuria and no hematuria Integumentary: no rash and no pruritus Neurologic: + falls Endocrine: + T2DM Hematologic / Lymphatic: no easy bleeding and no easy bruising Physical Exam Constitutional: WD/WN, vitals as above no acute distress Eyes: + mild icterus Respiratory: normal respiratory effort, lungs clear to auscultation Cardiovascular: Rate/Rhythm: regular rate and regular rhythm Gastrointestinal (Abdomen): Inspection/Auscultation: abdomen normal to inspection Percussion/Palpation: abdomen soft + mild generalized tenderness, no distention, peritoneal signs Musculoskeletal: no cyanosis or clubbing, extremities motor strength 5/5 Skin: + skin is sallow, mild jaundice Psychiatric: A+Ox3, euthymic affect Results & Data Vital Signs (Past 12 Hours) Vital Signs Temp Pulse Pulse Resp BP BP Pulse Ox 11/17/19 11:00 36.7 C 96 H 16 109/71 95 11/17/19 08:25 36.5 C 111 H 20 94/58 L 94 11/17/19 07:41 94 H 11/17/19 06:04 94 H 16 126/68 94 11/17/19 05:51 36.3 C L 93 H 16 128/72 95 11/17/19 05:01 90 22 97 11/17/19 05:00 90 22 126/71 96 11/17/19 04:31 88 21 95 11/17/19 04:30 87 16 124/70 96 11/17/19 04:01 87 25 H 95 11/17/19 04:00 85 22 125/64 95 11/17/19 03:33 88 23 94 11/17/19 03:32 85 20 131/72 96 11/17/19 03:31 90 25 H 11/17/19 03:01 89 21 96 11/17/19 03:00 95 H 21 117/63 96 11/17/19 02:53 89 22 108/66 96 11/17/19 02:30 90 25 H 93 11/17/19 02:00 108 H 21 92/60 L 95 11/17/19 01:54 36.6 C 115 H 20 87/55 L 95 11/17/19 01:53 113 H 23 87/55 L 97 Laboratory Results 11/17/19 11/17/19 11/17/19 Range/Units 11:40 11:34 08:05 WBC (4.8-10.8) K/uL RBC (4.2-5.4) M/uL Hgb (12.0-16.0) g/dL Hct (37-47) % MCV (80-100) fL MCH (25-34) pg MCHC (32-36) g/dL RDW Std Deviation (36.4-46.3) fL RDW Coeff of Taye (11.5-14.5) % Plt Count (130-400) K/uL MPV (7.4-10.4) fL Immature Gran % (Auto) % Neut % (Auto) % Lymph % (Auto) % Bent % (Auto) % Eos % (Auto) % Baso % (Auto) % Immature Gran # (Auto) (0.00-0.02) K/uL Neut # (Auto) (1.4-6.5) K/uL Lymph # (Auto) (1.2-3.4) K/uL Bent # (Auto) (0.11-0.59) K/uL Eos # (Auto) (0-0.5) K/uL Baso # (Auto) (0-0.2) K/uL Toxic Vacuolation Dohle Bodies Rouleaux PT (9.0-12.0) Seconds INR (0.9-1.1) Sodium 132 L (136-145) mmol/L Potassium 3.4 L D (3.5-5.1) mmol/L Chloride 96 L (98-107) mmol/L Carbon Dioxide 24 (21-32) mmol/L Anion Gap 12.0 H (3-11) BUN 14 (7-18) mg/dl Creatinine 0.94 (0.6-1.2) mg/dl Est Cr Clr Drug Dosing 54.3 ml/min Est GFR ( Amer) 75.4 Est GFR (Non-Af Amer) 65.0 BUN/Creatinine Ratio 15.2 (10-20) Glucose 191 H (70-99) mg/dl POC Glucose 222 H 115 H (70-99) Lactate (0.4-2.0) mmol/L Calcium 7.4 L (8.5-10.1) mg/dl Phosphorus Pending Magnesium 2.0 (1.8-2.4) mg/dl Total Bilirubin (0.2-1) mg/dl Direct Bilirubin (0-0.2) mg/dl AST (15-37) U/L ALT (12-78) U/L Alkaline Phosphatase (45-117) U/L Ammonia (11-32) umol/L Troponin I Pending (0-0.045) ng/ml Total Protein (6.4-8.2) gm/dl Albumin (3.4-5.0) gm/dl Lipase (73-393) U/L Ethyl Alcohol mg/dL (0-3) mg/dl 11/17/19 11/17/19 11/17/19 Range/Units 06:19 02:33 02:33 WBC (4.8-10.8) K/uL RBC (4.2-5.4) M/uL Hgb (12.0-16.0) g/dL Hct (37-47) % MCV (80-100) fL MCH (25-34) pg MCHC (32-36) g/dL RDW Std Deviation (36.4-46.3) fL RDW Coeff of Taye (11.5-14.5) % Plt Count (130-400) K/uL MPV (7.4-10.4) fL Immature Gran % (Auto) % Neut % (Auto) % Lymph % (Auto) % Bent % (Auto) % Eos % (Auto) % Baso % (Auto) % Immature Gran # (Auto) (0.00-0.02) K/uL Neut # (Auto) (1.4-6.5) K/uL Lymph # (Auto) (1.2-3.4) K/uL Bent # (Auto) (0.11-0.59) K/uL Eos # (Auto) (0-0.5) K/uL Baso # (Auto) (0-0.2) K/uL Toxic Vacuolation Dohle Bodies Rouleaux PT (9.0-12.0) Seconds INR (0.9-1.1) Sodium (136-145) mmol/L Potassium (3.5-5.1) mmol/L Chloride (98-107) mmol/L Carbon Dioxide (21-32) mmol/L Anion Gap (3-11) BUN (7-18) mg/dl Creatinine (0.6-1.2) mg/dl Est Cr Clr Drug Dosing ml/min Est GFR ( Amer) Est GFR (Non-Af Amer) BUN/Creatinine Ratio (10-20) Glucose (70-99) mg/dl POC Glucose 74 (70-99) Lactate (0.4-2.0) mmol/L Calcium (8.5-10.1) mg/dl Phosphorus Magnesium (1.8-2.4) mg/dl Total Bilirubin (0.2-1) mg/dl Direct Bilirubin (0-0.2) mg/dl AST (15-37) U/L ALT (12-78) U/L Alkaline Phosphatase (45-117) U/L Ammonia < 10.0 L (11-32) umol/L Troponin I (0-0.045) ng/ml Total Protein (6.4-8.2) gm/dl Albumin (3.4-5.0) gm/dl Lipase (73-393) U/L Ethyl Alcohol mg/dL < 3.0 (0-3) mg/dl 11/17/19 11/17/19 11/17/19 Range/Units 02:33 01:57 01:57 WBC (4.8-10.8) K/uL RBC (4.2-5.4) M/uL Hgb (12.0-16.0) g/dL Hct (37-47) % MCV (80-100) fL MCH (25-34) pg MCHC (32-36) g/dL RDW Std Deviation (36.4-46.3) fL RDW Coeff of Taye (11.5-14.5) % Plt Count (130-400) K/uL MPV (7.4-10.4) fL Immature Gran % (Auto) % Neut % (Auto) % Lymph % (Auto) % Bent % (Auto) % Eos % (Auto) % Baso % (Auto) % Immature Gran # (Auto) (0.00-0.02) K/uL Neut # (Auto) (1.4-6.5) K/uL Lymph # (Auto) (1.2-3.4) K/uL Bent # (Auto) (0.11-0.59) K/uL Eos # (Auto) (0-0.5) K/uL Baso # (Auto) (0-0.2) K/uL Toxic Vacuolation Dohle Bodies Rouleaux PT 11.5 (9.0-12.0) Seconds INR 1.1 (0.9-1.1) Sodium 132 L (136-145) mmol/L Potassium 2.6 L (3.5-5.1) mmol/L Chloride 89 L (98-107) mmol/L Carbon Dioxide 23 (21-32) mmol/L Anion Gap 20.0 H (3-11) BUN 17 (7-18) mg/dl Creatinine 0.89 (0.6-1.2) mg/dl Est Cr Clr Drug Dosing 59.0 ml/min Est GFR ( Amer) 80.5 Est GFR (Non-Af Amer) 69.5 BUN/Creatinine Ratio 19.0 (10-20) Glucose 67 L (70-99) mg/dl POC Glucose (70-99) Lactate 1.9 (0.4-2.0) mmol/L Calcium 7.8 L (8.5-10.1) mg/dl Phosphorus Magnesium 1.7 L (1.8-2.4) mg/dl Total Bilirubin 4.6 H (0.2-1) mg/dl Direct Bilirubin 3.5 H (0-0.2) mg/dl AST 128 H (15-37) U/L ALT 56 (12-78) U/L Alkaline Phosphatase 181 H (45-117) U/L Ammonia (11-32) umol/L Troponin I 0.017 (0-0.045) ng/ml Total Protein 5.3 L (6.4-8.2) gm/dl Albumin 1.7 L (3.4-5.0) gm/dl Lipase 92 (73-393) U/L Ethyl Alcohol mg/dL (0-3) mg/dl 11/17/19 Range/Units 01:57 WBC 8.47 (4.8-10.8) K/uL RBC 3.33 L (4.2-5.4) M/uL Hgb 10.5 L (12.0-16.0) g/dL Hct 31.2 L (37-47) % MCV 93.7 (80-100) fL MCH 31.5 (25-34) pg MCHC 33.7 (32-36) g/dL RDW Std Deviation 58.3 H (36.4-46.3) fL RDW Coeff of Taye 16.9 H (11.5-14.5) % Plt Count 157 (130-400) K/uL MPV 10.0 (7.4-10.4) fL Immature Gran % (Auto) 0.7 % Neut % (Auto) 87.5 % Lymph % (Auto) 5.2 % Bent % (Auto) 6.5 % Eos % (Auto) 0.0 % Baso % (Auto) 0.1 % Immature Gran # (Auto) 0.06 H (0.00-0.02) K/uL Neut # (Auto) 7.41 H (1.4-6.5) K/uL Lymph # (Auto) 0.44 L (1.2-3.4) K/uL Bent # (Auto) 0.55 (0.11-0.59) K/uL Eos # (Auto) 0.00 (0-0.5) K/uL Baso # (Auto) 0.01 (0-0.2) K/uL Toxic Vacuolation Occasional Dohle Bodies Occasional Rouleaux 1+ PT (9.0-12.0) Seconds INR (0.9-1.1) Sodium (136-145) mmol/L Potassium (3.5-5.1) mmol/L Chloride (98-107) mmol/L Carbon Dioxide (21-32) mmol/L Anion Gap (3-11) BUN (7-18) mg/dl Creatinine (0.6-1.2) mg/dl Est Cr Clr Drug Dosing ml/min Est GFR ( Amer) Est GFR (Non-Af Amer) BUN/Creatinine Ratio (10-20) Glucose (70-99) mg/dl POC Glucose (70-99) Lactate (0.4-2.0) mmol/L Calcium (8.5-10.1) mg/dl Phosphorus Magnesium (1.8-2.4) mg/dl Total Bilirubin (0.2-1) mg/dl Direct Bilirubin (0-0.2) mg/dl AST (15-37) U/L ALT (12-78) U/L Alkaline Phosphatase (45-117) U/L Ammonia (11-32) umol/L Troponin I (0-0.045) ng/ml Total Protein (6.4-8.2) gm/dl Albumin (3.4-5.0) gm/dl Lipase (73-393) U/L Ethyl Alcohol mg/dL (0-3) mg/dl Diagnostic Findings [place], [place] [phone] CT Scan Report Patient: DANIELITO WHITT AAdmit Date: 11/17/19 MR#: [id number]: [address] Acct ID:[id number]: [facility]: 1955[facility] [id number] Age: 63Location: 2N Sex: F Room/Bed: [facility] Att Phy: Xavier Maurice DODiagnosis: PAIN ALL OVER, FALL, N/V Berta Phy: Jelly Quintanilla, DOService Date: 11/17/19 Fam Phy:Interpreting Phy: Eric Verduzco MD Admit Phy: Joe House MD Ordering Phy: Florentin Kent M.D. cc: ~ CT abd pelvis IV con only CLINICAL HISTORY: 63 years-old Female presenting with generalized abdominal pain, vomiting, elevated LFTs, recent fall 5 days ago. TECHNIQUE: Multidetector CT of the abdomen and pelvis was performed after the administration of intravenous contrast. IV contrast: 93 mL of Optiray 320. One or more dose lowering techniques were used consistent with the principles of ALARA (as low as reasonably achievable), including automatic exposure control, mA or kV adjustment to individual patient size, and/or use of iterative re construction. COMPARISON: 09/24/2019. CT DOSE (mGy.cm): The estimated cumulative dose is 546.44. FINDINGS: Knockup Worker topogram: Left basilar opacity. Lung bases: Normal heart size. Coronary artery and aortic valve calcification. Small left pleural effusion new from prior. There may be trace dependent complexity of the fusion is predominantly water density. Left basilar consolidation and volume loss. Mucous plugging noted and subsegmental airways to the left lower lobe. Liver: Normal morphology. Density consistent with severe hepatic steatosis. No focal lesion. Patent hepatic vasculature. Biliary: No intrahepatic or extrahepatic biliary ductal dilatation. Gallbladder surgically absent. Pancreas: Mild parenchymal atrophy. Spleen: Normal. Adrenal glands: Normal. Kidneys and ureters: Slight heterogeneity of enhancement of the upper pole the left kidney is felt to be artifactual related to beam hardening artifact arising from positioning of the arms at the sides. Kidneys otherwise normal. No nephrolithiasis or hydronephrosis. Calcifications in the pelvis consistent with phleboliths. Bladder: Incompletely evaluated secondary to underdistention. Pelvic organs: Uterus surgically absent. Bowel: Calcified body adjacent to the proximal sigmoid colon may represent prior epiploic appendagitis or a dropped gallstone. Postsurgical changes of antecolic Ren[place]-en-Y gastric bypass. No bowel obstruction. Distal anastomosis patent. No appendix visualized. Peritoneal cavity: No free fluid or intraperitoneal gas. Lymph nodes: No enlarged lymph nodes in the abdomen or pelvis. Vasculature: Atherosclerosis of the normal caliber abdominal aorta. IVC patent. Abdominal wall: Mild body wall edema. Small fat-containing right inguinal hernia. Musculoskeletal: Degenerative changes of the spine. Displaced fractures of the posterior left 10th and 11th ribs, which are acute appearing. Old fracture deformity of the posterior right ninth rib. In several anterolateral ribs. IMPRESSION: 1. Displaced fractures of the posterior left 10th and 11th ribs, which are acute appearing. 2. Small left pleural effusion new from prior. Minimal complexity suggested dependently while the majority of this effusion is water density. It is difficult to exclude a minimal hemothorax component. 3. Left basilar atelectasis with mucous plugging. 4. No evidence of acute intra-abdominal injury. 5. Reno-en-Y gastric bypass without evidence of complication. 6. Severe hepatic steatosis. The report will be called/faxed according to standard departmental protocol. (1) Nausea & vomiting Vomiting Intractability: non-intractable Vomiting type: unspecified Qualified Code(s): R11.2 - Nausea with vomiting, unspecified
[2019-11-17 12:48] LABS: BUN Creatinine Ratio 15.2 (10-20); Calcium 7.4 mg/dl (8.5-10.1); Creatinine Clr Calc Pharmacy 54.3 ml/min; Est GFR (African American) 75.4; Potassium 3.4 mmol/L (3.5-5.1)
[2019-11-17 13:23] LABS: Phosphorus 1.2 mg/dl (2.5-4.9); Troponin I 0.026 ng/ml (0-0.045)
[2019-11-17] MEDS ORDERED: POTASSIUM PHOS 3 MMOL/1 ML INFUSION IV STA (13:38)
[2019-11-17] MEDS ORDERED: POTASSIUM PHOSPHATE 15 MMOL in SODIUM CHLORIDE 0.9% 250 ML IV ONE (14:00)
[2019-11-17] MEDS ORDERED: SODIUM BICARB 8.4% INJ 50 MEQ/50 ML SYR IV ONE (15:50)
--- NOTE | 2019-11-17 15:54 | Ultrasound Report ---
BILIARY ULTRASOUND CLINICAL HISTORY: abd pain, nausea, bilirubin of 4 COMPARISON STUDY: CT scan dated November 17, 2019 FINDINGS: The liver is of diffusely increased echogenicity, consistent with the known hepatic steatosis. No foc al masses are visualized. The pancreas appears sonographically normal. The gallbladder is surgically absent. There is no intrahepatic biliary ductal dilatation. The common bile duct measures 6 mm. There is no right-sided hydronephrosis. IMPRESSION: 1. Surgically absent gallbladder 2. Hepatic steatosis 3. No significant ductal dilatation ACT 112: Negative or not required by law. Electronically signed by: Jevon Fitzpatrick M.D. 11/17/2019 3:53 PM
[2019-11-17] MEDS ORDERED: GLUCAGON FOR INJ 1 MG VIAL SQ PRN (17:31)
[2019-11-17] MEDS ORDERED: GLUCOSE 40% GEL 15 GM TUBE PO PRN (17:31)
[2019-11-17] MEDS ORDERED: DEXTROSE 50% 50 ML SYRINGE IV PRN (17:31)
[2019-11-17] MEDS ORDERED: GLUCOSE 10 TABS/TUBE PO PRN (17:31)
--- NOTE | 2019-11-17 17:44 | Hospitalist Progress Note ---
Date of Service November 17, 2019 Assessment & Plan (1) Hyperbilirubinemia: Patient is a 63 yr female who presents with nausea and vomiting for few days, frequent falls, generalized body ache Nausea/Vomiting Hyperbilirubinemia H/O RYGB with anastomotic ulcer --CT ABD:Displaced fractures of the posterior left 10th and 11th ribs, which are acute appearing. Small left pleural effusion new from prior. Minimal complexity suggested dependently while the majority of this effusion is water density. It is difficult to exclude a minimal hemothorax component. Left basilar atelectasis with mucous plugging. No evidence of acute intra-abdominal injury. [place]-en-Y gastric bypass without evidence of complication. Severe hepatic steatosis. --ABD USD:Surgically absent gallbladder. Hepatic steatosis. No significant ductal dilatation --Appreciate GI Input --May need MRCP Vs advanced endoscopy --Continue IV fluids --Clear liquid diet --Continue PPI, Carafate --Monitor LFTs Hypotension: Likely worsened due to dehydration on Florinef Monitor BP Electrolyte abnormalities: Hypokalemia/Hypomagnesemia/Hypophosphatemia Likely due to GI loses Replace electrolytes as needed Bacteremia H/O MSSA bacteremia Blood Cx: Gram-positive cocci clusters Check ECHO Started on Vancomycin empirically ID consulted for Input DM II Last Hb A1C:5.4 Continue ISS while hospitalized Peptic ulcer disease Continue Nexium and sucralfate Recent pulmonary nodule. Follow up repeat CT scan as outpatient Alcoholism Denies any recent alcohol drink Continue thiamine, folic acid H/O Falls Rib fractures secondary to fall Pain control Incentive Spirometry H/O Obesity H/O Gastric Bypass DVT Px: SCDs Code status: Full Code DISPOSITION: PT/OT prior to discharge Subjective Patient seen and examined at bedside Complains of mild generalized pain Reports nausea but no vomiting today Denies any chest pain, shortness of breath, dizziness Also reported left-sided rib pain Review of Systems Review of Systems: All systems reviewed & are unremarkable except as noted in HPI & below Physical Exam Physical Exam: Physical Exam: Vitals signs as noted above General Appearance:Thin, frail, No apparent distress Head: normocephalic, Atraumatic Eyes: normal inspection, EOMI Neck: supple, Trachea midline Respiratory/Chest: Normal breath sounds, CTA Cardiovascular: S1, S2, No murmur Abdomen/GI:Soft, Mild generalized tender, Bowel sounds present Extremities/Musculoskelatal:normal inspection, no edema Neurologic/Psych:AAOX3, grossly no focal neurological deficits Skin: normal color, warm Results & Data Vital Signs (Past 12 Hours) Vital Signs Temp Pulse Pulse Resp BP BP Pulse Ox 11/17/19 15:00 112 H 11/17/19 14:37 36.7 C 100 H 16 106/64 95 11/17/19 11:00 36.7 C 96 H 16 109/71 95 11/17/19 08:25 36.5 C 111 H 20 94/58 L 94 11/17/19 07:41 94 H 11/17/19 06:04 94 H 16 126/68 94 11/17/19 05:51 36.3 C L 93 H 16 128/72 95 Laboratory Results Short CBC 11/17/19 Range/Units 01:57 WBC 8.47 (4.8-10.8) K/uL Hgb 10.5 L (12.0-16.0) g/dL Hct 31.2 L (37-47) % Plt Count 157 (130-400) K/uL BMP 11/17/19 11/17/19 01:57 11:34 Sodium 132 L 132 L Potassium 2.6 L 3.4 L D Chloride 89 L 96 L Carbon Dioxide 23 24 BUN 17 14 Creatinine 0.89 0.94 Glucose 67 L 191 H Calcium 7.8 L 7.4 L Cardiac Enzymes 11/17/19 11/17/19 Range/Units 01:57 11:34 Troponin I 0.017 0.026 (0-0.045) ng/ml Liver Function 11/17/19 Range/Units 01:57 Total Bilirubin 4.6 H (0.2-1) mg/dl Direct Bilirubin 3.5 H (0-0.2) mg/dl AST 128 H (15-37) U/L ALT 56 (12-78) U/L Alkaline Phosphatase 181 H (45-117) U/L Albumin 1.7 L (3.4-5.0) gm/dl
[2019-11-17] MEDS ORDERED: VANCOMYCIN CONSULT ACTIVE PRN (17:45)
[2019-11-17] MEDS ORDERED: VANCOMYCIN HCL 1,250 MG in SODIUM CHLORIDE 0.9% 250 ML IV STA (17:59)
[2019-11-17] MEDS: NSS + 20MEQ KCL 20 MEQ/1,000 ML BAG IV SCH (19:08)
--- NOTE | 2019-11-17 20:21 | Pharmacy Report ---
Pharmacy Abx Dose Short Note - Date of Service November 17, 2019 - Assessment & Plan Assessment 63 year old F receiving IV Vancomycin for treatment of bacteremia Day # 1 of antimicrobial therapy. * Most recent sCr = 0.94 mg/dL with estimated CrCl ~54 mL/min. Estimated pharmacokinetic parameters: * Ke ~0.049/hr, T1/2 ~14.1 hrs Plan Vancomycin * Give Vancomycin 1250mg (~23mg/kg) IV x 1 as loading dose * Initiate Vancomycin 1000mg (~18mg/kg) IV q16 for maintenance regimen * Goal trough level for bacteremia : 15 to 20 mcg/mL * Trough level ordered for: 11/18/19 @ 2330 (prior to 2nd dose due on 11/19 @ 0000) - note this is an early level not reflective of steady state, but want to assess dosing regimen early due to severity of infection Pharmacy will continue to follow and will adjust dose/frequency as necessary. Thank you.
[2019-11-17] MEDS: INSULIN ASPART 100 UNITS/ML 3 ML PEN SC SCH (21:28)
[2019-11-17] MEDS: NORTRIPTYLINE HCL 25 MG CAP PO SCH (21:30)
[2019-11-18] MEDS: NSS + 20MEQ KCL 20 MEQ/1,000 ML BAG IV SCH (05:02)
[2019-11-18] MEDS: LEVOTHYROXINE SODIUM 25 MCG TABLET PO SCH (06:17)
[2019-11-18 06:18] LABS: Hematocrit (blood only) 27.3 % (37-47); Hemoglobin 8.8 g/dL (12.0-16.0); Mean Corpuscular Hemoglobin 30.9 pg (25-34); Mean Corpuscular Hgb Conc 32.2 g/dL (32-36); Mean Corpuscular Volume 95.8 fL (80-100); Mean Platelet Volume 9.2 fL (7.4-10.4); Platelet Count 187 K/uL (130-400); RDW Coefficient of Variation 17.4 % (11.5-14.5); RDW Standard Deviation 61.4 fL (36.4-46.3); Red Blood Count 2.85 M/uL (4.2-5.4); White Blood Count 9.78 K/uL (4.8-10.8)
[2019-11-18 06:49] LABS: Anisocytosis Present; Basophils # (auto) 0.01 K/uL (0-0.2); Basophils % (auto) 0.1 %; Dohle Bodies 1+; Eosinophils # (auto) 0.01 K/uL (0-0.5); Eosinophils % (auto) 0.1 %; Immature Granulocytes # (auto) 0.05 K/uL (0.00-0.02); Immature Granulocytes % (auto) 0.5 %; Lymphocytes % (auto) 6.1 %; Monocytes # (auto) 0.56 K/uL (0.11-0.59); Monocytes % (auto) 5.7 %; Neutrophils # (auto) 8.55 K/uL (1.4-6.5); Neutrophils % (auto) 87.5 %
[2019-11-18 07:04] LABS: Albumin Level 1.5 gm/dl (3.4-5.0); BUN Creatinine Ratio 15.4 (10-20); Calcium 7.7 mg/dl (8.5-10.1); Creatinine Clr Calc Pharmacy 61.3 ml/min; Est GFR (African American) 85.1; Est GFR (Non-African American) 73.4; Magnesium 1.8 mg/dl (1.8-2.4); Potassium 3.5 mmol/L (3.5-5.1)
[2019-11-18 07:12] LABS: Albumin Globulin Ratio 0.4 (0.9-2); Globulin 3.9 gm/dl (2.5-4.0); Total Protein 5.4 gm/dl (6.4-8.2)
[2019-11-18 07:17] LABS: Albumin Level 1.5 gm/dl (3.4-5.0); Bilirubin Direct 3.2 mg/dl (0-0.2); Magnesium 1.8 mg/dl (1.8-2.4); Phosphorus 1.3 mg/dl (2.5-4.9); Total Protein 5.3 gm/dl (6.4-8.2)
[2019-11-18] MEDS ORDERED: POTASSIUM PHOS 3 MMOL/1 ML INFUSION IV STA (07:29)
[2019-11-18 07:46] LABS: Estimated Average Glucose 94 mg/dl; Hemoglobin A1C 4.9 % (4.5-5.6)
[2019-11-18] MEDS ORDERED: VANCOMYCIN HCL 1,000 MG in SODIUM CHLORIDE 0.9% 250 ML IV SCH (08:00)
[2019-11-18] MEDS ORDERED: POTASSIUM PHOSPHATE 21 MMOL in SODIUM CHLORIDE 0.9% 500 ML IV ONE (08:00)
[2019-11-18] MEDS: SUCRALFATE 1 GM TAB PO SCH ×4 (08:38→20:34)
[2019-11-18] MEDS: PANTOprazole 40 MG TAB PO SCH (08:39)
[2019-11-18] MEDS: FOLIC ACID 1 MG TAB PO SCH (08:39)
[2019-11-18] MEDS: CYANOCOBALAMIN 500 MCG TABLET (VITAMIN B-12) PO SCH (08:39)
[2019-11-18] MEDS: FLUDROCORTISONE ACETATE 0.1 MG TAB PO SCH (08:39)
[2019-11-18] MEDS: THIAMINE HCL 100 MG TAB PO SCH (08:39)
[2019-11-18] MEDS: DULOXETINE HCL 30 MG CAP PO SCH ×2 (08:40→20:34)
[2019-11-18] MEDS: miSOPROStoL 100 MCG TAB PO SCH ×4 (08:40→20:34)
[2019-11-18] MEDS: INSULIN ASPART 100 UNITS/ML 3 ML PEN SC SCH ×4 (08:41→21:26)
[2019-11-18] MEDS: GABAPENTIN 300 MG CAP PO SCH ×3 (08:42→20:34)
[2019-11-18] MEDS: INSULIN GLARGINE SOLOSTAR 100 UNITS/ML 3 ML PEN SC SCH ×2 (08:43→21:26)
[2019-11-18] MEDS: VANCOMYCIN HCL 750 MG in SODIUM CHLORIDE 0.9% 250 ML IV SCH ×2 (10:18→21:56)
--- NOTE | 2019-11-18 11:37 | Gastroenterology Progress Note ---
Date of Service November 18, 2019 Assessment & Plan (1) Hyperbilirubinemia: - 63 y/o female s/p RYGB with chronic marginal ulcer, chronic n/v/abd pain with acute hyperbilirubinemia in the setting of recent fall with left-sided rib fx - US ABD without evidence for jenniffer dil; CBD 6 mm; no IHDD. 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 Thank you for allowing us to participate in the care of this patient. Please call with any acute changes, questions or concerns. Please see addendum below with additional recommendation from my supervising physician. (2) Nausea & vomiting: (3) LFTs abnormal: Supervising Physician Co-Signing Physician Notes Late entry: Patient was seen and examined on 11/18 with Liz Bowie PA-C whose note reflects our findings and plan. Subjective Pt seen and examined. Feeling about the same today; still complains of generalized abd pain, left-sided rib pain. Tolerating clear liquids. No acute events overnight. Had some nausea after breakfast. No vomiting, diarhea, melena, hematochezia, dark urine, fevers. Bilirubin down to 4 today; LFTs improving. K improved to 3.5. US ABD yesterday with CBD of 6 mm; no IHDD. Review of Systems Constitutional: + fatigue and + anorexia; no fever and no chills Eyes: Denies icterus Respiratory: + pain with rib fx Cardiovascular: + chest pain; no chest pain with activity, no dyspnea, no paroxysmal nocturnal dyspnea and no edema Gastrointestinal: as per Subjective / HPI Neurologic: + falls Endocrine: + T2DM Physical Exam Constitutional: WD/WN, vitals as above no acute distress Respiratory: normal respiratory effort, lungs clear to auscultation Cardiovascular: Rate/Rhythm: regular rate and regular rhythm Gastrointestinal (Abdomen): Inspection/Auscultation: abdomen normal to inspection Percussion/Palpation: abdomen soft Musculoskeletal: no cyanosis or clubbing, extremities motor strength 5/5 Psychiatric: A+Ox3, euthymic affect Results & Data Vital Signs (Past 12 Hours) Vital Signs Temp Pulse Pulse Resp BP Pulse Ox 11/18/19 11:16 37.8 C H 109 H 16 98/62 L 90 11/18/19 07:24 106 H 11/18/19 07:19 36.8 C 102 H 18 114/70 90 11/18/19 03:05 36.6 C 102 H 18 106/66 95 (1) Nausea & vomiting Vomiting Intractability: non-intractable Vomiting type: unspecified Qualified Code(s): R11.2 - Nausea with vomiting, unspecified
--- NOTE | 2019-11-18 12:52 | Infectious Disease Consult ---
Date of Consultation November 18, 2019 Assessment & Plan (1) Gram positive sepsis: continue abx, follow repeat culture. needs echo. will follow. History of Present Illness Attending Physician: Tobias Allen MD pt admitted with chest pain/tenderness, frequent falls at home and n/v. ct found acute displaced 10 and 11 rib fractures with ? hemothorax. she has h/o etoh abuse, no ascites noted. AST 101. wbc 9, creat 0.8 afebrile since admission, blood cultures done in [place], growing S.aureus, final pending. tolerating abx. repeat cultures pending. denies cough, sob, garcia, pain with inspiration due to fracture, no cp, no abd pain, no n/v/d. no gu symptoms. Allergies Allergy/AdvReac Type Severity Reaction Status Date / Time Sulfa (Sulfonamide Allergy Severe FACE/THROAT Verified 11/17/19 02:12 Antibiotics) SWELL UP Home Medications Home Medications Medication Instructions Recorded Confirmed Type cyanocobalamin (vitamin B-12) 500 mcg PO DAILY 08/16/19 11/17/19 History [Vitamin B-12] esomeprazole magnesium [Nexium] 40 mg PO DAILY 08/16/19 11/17/19 History folic acid 1 mg PO DAILY 08/16/19 11/17/19 History misoprostol [Cytotec] 100 mcg PO QID 08/16/19 11/17/19 History thiamine HCl (vitamin B1) [Vitamin 100 mg PO QAM #30 tab 08/22/19 11/17/19 Rx B-1] meclizine 25 mg PO Q8H PRN #30 tab 09/29/19 11/17/19 Rx duloxetine 30 mg PO BID 11/17/19 11/17/19 History fludrocortisone 0.1 mg PO DAILY 11/17/19 11/17/19 History gabapentin 300 mg PO TID 11/17/19 11/17/19 History levothyroxine 25 mcg PO DAILY 11/17/19 11/17/19 History nortriptyline 25 mg PO HS 11/17/19 11/17/19 History sucralfate 1 g PO ACHS 11/17/19 11/17/19 History Patient History Medical History Acute alcohol abuse (Chronic) Alcohol abuse Anemia, iron deficiency (Chronic) Arthritis (Chronic) Bacteremia DVT prophylaxis Esophagus disorder Gram positive sepsis Hypokalemia Small bowel obstruction (Resolved) Ulcer GI Surgical History History of incision and drainage (08/18/19) Left Axillary Abscess Incision and Drainage Dr. Perdue 08/18/19 Status post appendectomy (Chronic) Status post cholecystectomy (Chronic) Status post gastric bypass for obesity (Chronic) Status post hysterectomy (Chronic) Family History Other No pertinent family history in first degree relatives Social History Preferred Language: Bulgarian Communication Ability: Effective Roofing Layer Required: No Beliefs That Will Affect Care: None marital status: Current Living Situation: Other Current Living Situation Comment: Friend Feels Safe at Home: Yes Safety Concerns: Feels Safe At This Time Smoking Status: Former smoker Tobacco Type: cigarettes ; Second Hand Exposure: Yes ; Hx Alcohol Use: Yes Alcohol type: beer and hard liquor Hx Substance Use: No Review of Systems Review of Systems: All systems reviewed & are unremarkable except as noted in HPI & below Physical Exam Constitutional: WD/WN, vitals as above Eyes: PERRL, conjunctivae normal, anicteric sclerae ENMT: external ear and nose normal, oropharynx normal Neck: normal visual inspection Respiratory: normal respiratory effort, lungs clear to auscultation Auscultation: + diminished lung sounds Cardiovascular: RRR, no murmur, no edema Gastrointestinal (Abdomen): normal bowel sounds, soft, nontender, no hepatosplenomegaly Musculoskeletal: no cyanosis or clubbing, extremities motor strength 5/5 Skin: no rashes, warm and dry Psychiatric: A+Ox3, euthymic affect Results & Data Vital Signs (Past 12 Hours) Vital Signs Temp Pulse Pulse Resp BP Pulse Ox 11/18/19 11:16 37.8 C H 109 H 16 98/62 L 90 11/18/19 07:24 106 H 11/18/19 07:19 36.8 C 102 H 18 114/70 90 11/18/19 03:05 36.6 C 102 H 18 106/66 95 Laboratory Results Microbiology 11/17/19 02:36 Blood Aerobic Blood Culture - Preliminary No growth in Aerobic bottle after 24 hours. 11/17/19 02:36 Blood Anaerobic Blood Culture - Preliminary Staphylococcus aureus 11/17/19 02:33 Blood Aerobic Blood Culture - Preliminary No growth in Aerobic bottle after 24 hours. 11/17/19 02:33 Blood Anaerobic Blood Culture - Preliminary Staphylococcus aureus PG Care Time/CCT Total # of Minutes Spent Total Time Spent with Patient: Total time spent is greater than 50% in coordination of care (as documented) at patient's floor/unit and/or counseling patient:
[2019-11-18] MEDS: OXYCODONE HCL IR 5 MG TAB (IMMEDIATE RELEASE) PO PRN ×2 (13:00→20:33)
--- NOTE | 2019-11-18 18:37 | Hospitalist Progress Note ---
Date of Service November 18, 2019 Assessment & Plan (1) Hyperbilirubinemia: Patient is a 63 yr female who presents with nausea and vomiting for few days, frequent falls, generalized body ache Nausea/Vomiting Hyperbilirubinemia H/O RYGB with anastomotic ulcer --CT ABD:Displaced fractures of the posterior left 10th and 11th ribs, which are acute appearing. Small left pleural effusion new from prior. Minimal complexity suggested dependently while the majority of this effusion is water density. It is difficult to exclude a minimal hemothorax component. Left basilar atelectasis with mucous plugging. No evidence of acute intra-abdominal injury. [place]-en-Y gastric bypass without evidence of complication. Severe hepatic steatosis. --ABD USD:Surgically absent gallbladder. Hepatic steatosis. No significant ductal dilatation --Appreciate GI Input --Since CBD is nondilated, no plan for MRCP --Continue IV fluids --Clear liquid diet --Continue PPI, Carafate --Monitor LFTs --Chronic abdominal pain--with history of chronic marginal ulcer--May need possible revision of her RYGB. --We will advise patient to follow-up with bariatric surgeon upon discharge Hypotension: Likely worsened due to dehydration on Florinef Monitor BP Electrolyte abnormalities: Hypokalemia/Hypomagnesemia/Hypophosphatemia Likely due to GI loses Replace electrolytes as needed Bacteremia H/O MSSA bacteremia Blood Cx: Staph-- ECHO: No visualized valvular disease Continue Vancomycin for now Appreciate ID Input DM II Last Hb A1C:5.4 Continue ISS while hospitalized Peptic ulcer disease Continue Nexium and sucralfate Recent pulmonary nodule. Follow up repeat CT scan as outpatient Alcoholism Denies any recent alcohol drink Continue thiamine, folic acid H/O Falls Rib fractures secondary to fall Pain control Incentive Spirometry H/O Obesity H/O Gastric Bypass DVT Px: SCDs Code status: Full Code DISPOSITION: PT/OT prior to discharge Subjective Patient seen and examined at bedside Feels slightly better today Reports dry cough Still complains of generalized abdominal discomfort, left-sided rib pain Denies nausea, vomiting, diarrhea today Also denies any chest pain, SOB, dizziness Review of Systems Review of Systems: All systems reviewed & are unremarkable except as noted in HPI & below Physical Exam Physical Exam: Physical Exam: Vitals signs as noted above General Appearance:Thin, frail, No apparent distress Head: normocephalic, Atraumatic Eyes: normal inspection, EOMI Neck: supple, Trachea midline Respiratory/Chest: Normal breath sounds, CTA Cardiovascular: S1, S2, No murmur Abdomen/GI:Soft, Mild generalized tender, Bowel sounds present Extremities/Musculoskelatal:normal inspection, no edema Neurologic/Psych:AAOX3, grossly no focal neurological deficits Skin: normal color, warm Results & Data Vital Signs (Past 12 Hours) Vital Signs Temp Pulse Pulse Resp BP Pulse Ox 11/18/19 15:07 37.2 C 16 100/64 100 11/18/19 15:00 111 H 11/18/19 11:16 37.8 C H 109 H 16 98/62 L 90 11/18/19 07:24 106 H 11/18/19 07:19 36.8 C 102 H 18 114/70 90 Laboratory Results Short CBC 11/18/19 Range/Units 05:55 WBC 9.78 (4.8-10.8) K/uL Hgb 8.8 L (12.0-16.0) g/dL Hct 27.3 L (37-47) % Plt Count 187 (130-400) K/uL BMP 11/18/19 05:55 Sodium 135 L Potassium 3.5 Chloride 102 Carbon Dioxide 27 BUN 13 Creatinine 0.85 Glucose 214 H Calcium 7.7 L Liver Function 11/18/19 11/18/19 Range/Units 05:55 05:55 Total Bilirubin 4.0 H 4.0 H (0.2-1) mg/dl Direct Bilirubin 3.2 H (0-0.2) mg/dl AST 100 H 101 H (15-37) U/L ALT 56 56 (12-78) U/L Alkaline Phosphatase 154 H 153 H (45-117) U/L Albumin 1.5 L 1.5 L (3.4-5.0) gm/dl
[2019-11-18] MEDS: NORTRIPTYLINE HCL 25 MG CAP PO SCH (20:34)
[2019-11-18] MEDS ORDERED: VANCOMYCIN TROUGH ONE (23:30)
[2019-11-19 03:36] LABS: Appearance Urine Clear (Clear); Bilirubin Urine Negative (Negative); Blood Urine Negative (Negative); Color Urine Yellow; Glucose Urine UA 3+ (Negative); Ketones Urine Negative (Negative); Leukocyte Esterase Urine Negative (Negative); Nitrite Urine Negative (Negative); Protein Urine Negative (Negative); Urobilinogen Urine Negative (Negative)
[2019-11-19] MEDS: LEVOTHYROXINE SODIUM 25 MCG TABLET PO SCH (06:34)
[2019-11-19] MEDS: SUCRALFATE 1 GM TAB PO SCH ×4 (07:57→21:15)
[2019-11-19] MEDS: GABAPENTIN 300 MG CAP PO SCH ×3 (07:58→21:14)
[2019-11-19] MEDS: PANTOprazole 40 MG TAB PO SCH (07:58)
[2019-11-19] MEDS: CYANOCOBALAMIN 500 MCG TABLET (VITAMIN B-12) PO SCH (07:58)
[2019-11-19] MEDS: FLUDROCORTISONE ACETATE 0.1 MG TAB PO SCH (07:59)
[2019-11-19] MEDS: FOLIC ACID 1 MG TAB PO SCH (07:59)
[2019-11-19] MEDS: THIAMINE HCL 100 MG TAB PO SCH (07:59)
[2019-11-19] MEDS: DULOXETINE HCL 30 MG CAP PO SCH ×2 (08:00→21:15)
[2019-11-19] MEDS: miSOPROStoL 100 MCG TAB PO SCH ×4 (08:00→21:14)
[2019-11-19] MEDS: INSULIN ASPART 100 UNITS/ML 3 ML PEN SC SCH ×4 (08:08→20:00)
[2019-11-19] MEDS: VANCOMYCIN HCL 750 MG in SODIUM CHLORIDE 0.9% 250 ML IV SCH ×2 (08:08→22:25)
[2019-11-19] MEDS: INSULIN GLARGINE SOLOSTAR 100 UNITS/ML 3 ML PEN SC SCH (08:09)
[2019-11-19 08:22] LABS: Hematocrit (blood only) 25.3 % (37-47); Hemoglobin 8.3 g/dL (12.0-16.0)
[2019-11-19] MEDS ORDERED: VANCOMYCIN TROUGH ONE (08:30)
[2019-11-19] MEDS: OXYCODONE HCL IR 5 MG TAB (IMMEDIATE RELEASE) PO PRN ×2 (08:45→18:40)
[2019-11-19 08:50] LABS: Albumin Level 1.3 gm/dl (3.4-5.0); BUN Creatinine Ratio 16.5 (10-20); Calcium 7.9 mg/dl (8.5-10.1); Creatinine Clr Calc Pharmacy 69.5 ml/min; Est GFR (Non-African American) 85.4; Magnesium 1.6 mg/dl (1.8-2.4); Phosphorus 1.6 mg/dl (2.5-4.9); Potassium 3.4 mmol/L (3.5-5.1)
[2019-11-19 08:53] LABS: Albumin Globulin Ratio 0.3 (0.9-2); Bilirubin,Total 4.4 mg/dl (0.2-1); Globulin 3.8 gm/dl (2.5-4.0); Total Protein 5.1 gm/dl (6.4-8.2)
[2019-11-19] MEDS ORDERED: POTASSIUM PHOS 3 MMOL/1 ML INFUSION IV STA (09:21)
--- NOTE | 2019-11-19 09:21 | Pharmacy Report ---
Pharmacy Abx Dose Short Note - Date of Service November 19, 2019 - Assessment & Plan Assessment 63 year old F receiving vancomycin for treatment of Staphylococcus aureus (MRSA) bacteremia (unknown origin) Day # 3 of antimicrobial therapy. Renal function stable - will continue to monitor TTE on 11/18/19 - no visualized valvular disease Microbiology: -Blood cultures x 2 (11/17): Staphylococcus aureus x 2 --PCR: MRSA positive -Blood cultures x 2 (11/18): Gram-positive cocci in clusters x 2 Plan Vancomycin * Trough level of 16.3 mcg/mL is therapeutic * Continue dose of 750 mg IV every 12 hours * Goal trough level for MRSA bacteremia : 15 to 20 mcg/mL * Trough or random level ordered for: 11/21/2019 Pharmacy will continue to follow and will adjust dose/frequency as necessary. Thank you.
[2019-11-19] MEDS ORDERED: POTASSIUM PHOSPHATE 21 MMOL in SODIUM CHLORIDE 0.9% 500 ML IV STA (09:25)
[2019-11-19] MEDS: MAGNESIUM SULFATE / D5W 1 GM/100 ML BAG IV SCH ×2 (10:01→10:40)
--- NOTE | 2019-11-19 10:45 | Infectious Disease Progress Nt ---
Date of Service November 19, 2019 Assessment & Plan (1) Gram positive sepsis: continue abx, repeat culture also + for S. aureus. will repeat, unclear source, denies any wounds, cuts, procedures, dental work, etc will follow. Subjective pt seen in f/u, less pain, appears more comfortable. tolerating clears for regular diet at lunch, not hungry but no abd pain, no n/v/d. no cp, sob, cough. Initial blood cultures growing S. aureus, final pending, repeat cultures 11/18 + as well. on vanco, tolerating well. tmax 37.8 no am labs. Echo negative for veg. Review of Systems Review of Systems: All systems reviewed & are unremarkable except as noted in HPI & below Physical Exam Constitutional: WD/WN, vitals as above Eyes: PERRL, conjunctivae normal, anicteric sclerae ENMT: external ear and nose normal, oropharynx normal Neck: normal visual inspection Respiratory: normal respiratory effort, lungs clear to auscultation Auscultation: + diminished lung sounds Cardiovascular: RRR, no murmur, no edema Gastrointestinal (Abdomen): normal bowel sounds, soft, nontender, no hepatosplenomegaly Musculoskeletal: no cyanosis or clubbing, extremities motor strength 5/5 Skin: no rashes, warm and dry + jaundice Psychiatric: A+Ox3, euthymic affect Results & Data Vital Signs (Past 12 Hours) Vital Signs Temp Pulse Pulse Resp BP BP Pulse Ox 11/19/19 09:36 97 H 11/19/19 07:06 36.9 C 97 H 18 110/68 95 11/19/19 04:26 37.5 C 99 H 20 107/64 92 11/19/19 04:20 88 L 11/18/19 23:48 102 H 11/18/19 23:10 36.6 C 94 H 16 106/63 92 Laboratory Results Microbiology 11/18/19 06:04 Blood Aerobic Blood Culture - Preliminary Staphylococcus aureus 11/18/19 06:04 Blood Anaerobic Blood Culture - Preliminary No growth in Anaerobic bottle after 24 hours. 11/18/19 05:55 Blood Aerobic Blood Culture - Preliminary Staphylococcus aureus 11/18/19 05:55 Blood Anaerobic Blood Culture - Preliminary No growth in Anaerobic bottle after 24 hours. 11/17/19 02:33 Blood Aerobic Blood Culture - Preliminary No growth in Aerobic bottle after 48 hours. 11/17/19 02:33 Blood Anaerobic Blood Culture - Preliminary Staphylococcus aureus 11/17/19 02:36 Blood Aerobic Blood Culture - Preliminary No growth in Aerobic bottle after 48 hours. 11/17/19 02:36 Blood Anaerobic Blood Culture - Preliminary Staphylococcus aureus PG Care Time/CCT Total # of Minutes Spent Total Time Spent with Patient: Total time spent is greater than 50% in coordination of care (as documented) at patient's floor/unit and/or counseling patient:
--- NOTE | 2019-11-19 12:33 | Gastroenterology Progress Note ---
Date of Service November 19, 2019 Assessment & Plan (1) Hyperbilirubinemia: - 63 y/o female with h/o RYGB and chronic marginal ulcer, chronic abd pain, chronic ALP elevation, history of ETOH abuse (pt states she stopped drinking in 2011 though ETOH level was elevated in August 2019), tobacco use admitted with abd pain, left rib fx, being tx for gram + sepsis (staph aureus), source unknown. GI had been consulted for elevated bilirubin. - Etiology of hyperbilirubinemia unclear - Bilirubin was elevated at 4.6 on admission then improved to 4, now back up to 4.4; AST elevated along with ALP; pattern of AST/ALT ratio suggests perhaps ETOH liver disease is playing a role. She continues with electrolyte derangements (hypo NA, hypo K, hypoMg), HGB lower than baseline at 8.3. - US ABD was without evidence for jenniffer dil; CBD 6 mm; no IHDD; though showed hepatic steatosis; no focal lesion - Will send full liver serologies to eval for alpha-1 antitrypsin deficiency, autoimmune liver disease, Celiac, hemochromatosis, viral hepatitis, etc - Continue diet as tolerated - Continue PPI, carafate PRN - Antiemetics, analgesia PRN - Correct electrolyte derangements - Trend H&H, transfuse PRN - Recommend strict ETOH, tobacco avoidance (2) Nausea & vomiting: (3) LFT elevation: Supervising Physician Co-Signing Physician Notes Late entry: Patient was seen and examined with Liz Bowie PA-C on 11/19. Her note reflects our findings and plan. Subjective Pt seen today in f/u elevated bilirubin, LFTs. Bilirubin was 4.6 on admission, improved to 4.0, now 4.4. Continues with AST elevation of 142, ALT 61; has chronically elevated ALP and today is better than previous (134). She is being tx for gram + sepsis (cultures growing staph aureus); unknown source. She has baseline chronic anemia (9-10), HGB 8.3 today. Plt 187; normal INR. She continues with her chronic abd pain, known marginal ulcer; most recent EGD 08/23. N/v coninues and has been present since last week. Tolerating clears; had regular diet today for lunch but had nausea after only a few bites. Bowels are moving daily, loose; no melena, hematochezia, no vomiting. Physical Exam Constitutional: + chronically ill Eyes: + icterus Respiratory: normal respiratory effort, lungs clear to auscultation Cardiovascular: RRR, no murmur, no edema Gastrointestinal (Abdomen): Inspection/Auscultation: abdomen normal to inspection and normal bowel sounds Percussion/Palpation: + abdomen tender (mildly tender to the epigastrium) and abdomen soft Non distended Skin: + sallow Psychiatric: A+Ox3, euthymic affect Results & Data Vital Signs (Past 12 Hours) Vital Signs Temp Pulse Pulse Resp BP Pulse Ox 11/19/19 11:00 36.7 C 89 18 108/68 91 11/19/19 09:36 97 H 11/19/19 07:06 36.9 C 97 H 18 110/68 95 11/19/19 04:26 37.5 C 99 H 20 107/64 92 11/19/19 04:20 88 L Laboratory Results 11/19/19 11/19/19 11/19/19 Range/Units 12:46 12:46 12:46 Hgb (12.0-16.0) g/dL Hct (37-47) % PT 12.0 (9.0-12.0) Seconds INR 1.2 H (0.9-1.1) Sodium (136-145) mmol/L Potassium (3.5-5.1) mmol/L Chloride (98-107) mmol/L Carbon Dioxide (21-32) mmol/L Anion Gap (3-11) BUN (7-18) mg/dl Creatinine (0.6-1.2) mg/dl Est Cr Clr Drug Dosing ml/min Est GFR ( Amer) Est GFR (Non-Af Amer) BUN/Creatinine Ratio (10-20) Glucose (70-99) mg/dl POC Glucose (70-99) mg/dl Calcium (8.5-10.1) mg/dl Phosphorus (2.5-4.9) mg/dl Magnesium (1.8-2.4) mg/dl Ferritin 385.9 (8-388) ng/ml Total Bilirubin (0.2-1) mg/dl AST (15-37) U/L ALT (12-78) U/L Alkaline Phosphatase (45-117) U/L Total Protein (6.4-8.2) gm/dl Albumin (3.4-5.0) gm/dl Globulin (2.5-4.0) gm/dl Albumin/Globulin Ratio (0.9-2) Urine Color Urine Appearance (Clear) Urine pH (4.5-7.5) Ur Specific [place] (1.000-1.030) Urine Protein (Negative) Urine Glucose (UA) (Negative) Urine Ketones (Negative) Urine Blood (Negative) Urine Nitrite (Negative) Urine Bilirubin (Negative) Urine Urobilinogen (Negative) Ur Leukocyte Esterase (Negative) Vancomycin Trough (See Comment) mcg/ml Anti-Mitochondrial Ab Pending Anti-Smooth Muscle Ab Pending Tiss Transglutamin IgA Pending Bld Cult Staph aureus PCR (Negative) Blood Culture MRSA PCR (Negative) 11/19/19 11/19/19 11/19/19 Range/Units 11:40 07:59 07:59 Hgb 8.3 L (12.0-16.0) g/dL Hct 25.3 L (37-47) % PT (9.0-12.0) Seconds INR (0.9-1.1) Sodium 133 L (136-145) mmol/L Potassium 3.4 L (3.5-5.1) mmol/L Chloride 103 (98-107) mmol/L Carbon Dioxide 23 (21-32) mmol/L Anion Gap 7.0 (3-11) BUN 12 (7-18) mg/dl Creatinine 0.75 (0.6-1.2) mg/dl Est Cr Clr Drug Dosing 69.5 ml/min Est GFR ( Amer) 99.0 Est GFR (Non-Af Amer) 85.4 BUN/Creatinine Ratio 16.5 (10-20) Glucose 72 (70-99) mg/dl POC Glucose 103 H (70-99) mg/dl Calcium 7.9 L (8.5-10.1) mg/dl Phosphorus 1.6 L (2.5-4.9) mg/dl Magnesium 1.6 L (1.8-2.4) mg/dl Ferritin (8-388) ng/ml Total Bilirubin 4.4 H (0.2-1) mg/dl AST 142 H (15-37) U/L ALT 61 (12-78) U/L Alkaline Phosphatase 134 H (45-117) U/L Total Protein 5.1 L (6.4-8.2) gm/dl Albumin 1.3 L (3.4-5.0) gm/dl Globulin 3.8 (2.5-4.0) gm/dl Albumin/Globulin Ratio 0.3 L (0.9-2) Urine Color Urine Appearance (Clear) Urine pH (4.5-7.5) Ur Specific [place] (1.000-1.030) Urine Protein (Negative) Urine Glucose (UA) (Negative) Urine Ketones (Negative) Urine Blood (Negative) Urine Nitrite (Negative) Urine Bilirubin (Negative) Urine Urobilinogen (Negative) Ur Leukocyte Esterase (Negative) Vancomycin Trough (See Comment) mcg/ml Anti-Mitochondrial Ab Anti-Smooth Muscle Ab Tiss Transglutamin IgA Bld Cult Staph aureus PCR (Negative) Blood Culture MRSA PCR (Negative) 11/19/19 11/19/19 11/19/19 Range/Units 07:59 07:33 02:49 Hgb (12.0-16.0) g/dL Hct (37-47) % PT (9.0-12.0) Seconds INR (0.9-1.1) Sodium (136-145) mmol/L Potassium (3.5-5.1) mmol/L Chloride (98-107) mmol/L Carbon Dioxide (21-32) mmol/L Anion Gap (3-11) BUN (7-18) mg/dl Creatinine (0.6-1.2) mg/dl Est Cr Clr Drug Dosing ml/min Est GFR ( Amer) Est GFR (Non-Af Amer) BUN/Creatinine Ratio (10-20) Glucose (70-99) mg/dl POC Glucose 87 (70-99) mg/dl Calcium (8.5-10.1) mg/dl Phosphorus (2.5-4.9) mg/dl Magnesium (1.8-2.4) mg/dl Ferritin (8-388) ng/ml Total Bilirubin (0.2-1) mg/dl AST (15-37) U/L ALT (12-78) U/L Alkaline Phosphatase (45-117) U/L Total Protein (6.4-8.2) gm/dl Albumin (3.4-5.0) gm/dl Globulin (2.5-4.0) gm/dl Albumin/Globulin Ratio (0.9-2) Urine Color Yellow Urine Appearance Clear (Clear) Urine pH 5.0 (4.5-7.5) Ur Specific [place] 1.020 (1.000-1.030) Urine Protein Negative (Negative) Urine Glucose (UA) 3+ H (Negative) Urine Ketones Negative (Negative) Urine Blood Negative (Negative) Urine Nitrite Negative (Negative) Urine Bilirubin Negative (Negative) Urine Urobilinogen Negative (Negative) Ur Leukocyte Esterase Negative (Negative) Vancomycin Trough 16.3 (See Comment) mcg/ml Anti-Mitochondrial Ab Anti-Smooth Muscle Ab Tiss Transglutamin IgA Bld Cult Staph aureus PCR (Negative) Blood Culture MRSA PCR (Negative) 11/18/19 11/18/19 11/18/19 Range/Units 21:04 16:50 05:55 Hgb (12.0-16.0) g/dL Hct (37-47) % PT (9.0-12.0) Seconds INR (0.9-1.1) Sodium (136-145) mmol/L Potassium (3.5-5.1) mmol/L Chloride (98-107) mmol/L Carbon Dioxide (21-32) mmol/L Anion Gap (3-11) BUN (7-18) mg/dl Creatinine (0.6-1.2) mg/dl Est Cr Clr Drug Dosing ml/min Est GFR ( Amer) Est GFR (Non-Af Amer) BUN/Creatinine Ratio (10-20) Glucose (70-99) mg/dl POC Glucose 78 70 (70-99) mg/dl Calcium (8.5-10.1) mg/dl Phosphorus (2.5-4.9) mg/dl Magnesium (1.8-2.4) mg/dl Ferritin (8-388) ng/ml Total Bilirubin (0.2-1) mg/dl AST (15-37) U/L ALT (12-78) U/L Alkaline Phosphatase (45-117) U/L Total Protein (6.4-8.2) gm/dl Albumin (3.4-5.0) gm/dl Globulin (2.5-4.0) gm/dl Albumin/Globulin Ratio (0.9-2) Urine Color Urine Appearance (Clear) Urine pH (4.5-7.5) Ur Specific [place] (1.000-1.030) Urine Protein (Negative) Urine Glucose (UA) (Negative) Urine Ketones (Negative) Urine Blood (Negative) Urine Nitrite (Negative) Urine Bilirubin (Negative) Urine Urobilinogen (Negative) Ur Leukocyte Esterase (Negative) Vancomycin Trough (See Comment) mcg/ml Anti-Mitochondrial Ab Anti-Smooth Muscle Ab Tiss Transglutamin IgA Bld Cult Staph aureus PCR Positive A (Negative) Blood Culture MRSA PCR Positive A (Negative) (1) Nausea & vomiting Vomiting Intractability: non-intractable Vomiting type: unspecified Qualified Code(s): R11.2 - Nausea with vomiting, unspecified
[2019-11-19 13:27] LABS: INR 1.2 (0.9-1.1)
--- NOTE | 2019-11-19 15:39 | Internal Medicine Consult Note ---
Date of Consultation November 19, 2019 Assessment & Plan (1) Encounter for rehabilitation evaluation: Liver disease and bacteremia. Chronic liver disease with GI completing the evaluation. IV vanco in place for the bacteremia. ID involved in the evaluation. Once the acute care phase of treatment and diagnostics completed she will be a good candidate for the rehab hospital environment secondary to her multisystem disease involvement and need for ongoing close medical oversight and laboratory investigation. Will continue to track her during the hospital course. History of Present Illness Reason for Consultation: High Risk Rehab Candidate Evaluation Attending Physician: Tobias Allen MD History of Present Illness Ms. Kelley suffers from liver disease and bacteremia. History of [place]-en-y gastric bypass noted. Persistent LFT/bili abnormalities being evaluated by GI. Staph bacteremia treatment and evaluation in progress. She is profoundly weak as a result of the critical illness and chronic disease. She lives in [place] and has someone at home to help. She is cooperative and anxious to improve her health and performance. Given the above, she requires ongoing close medical oversight and monitoring of appropriate labs. She may also require an extended period of IV antibiotics. She is a good candidate for the level of post acute care intensity provided in the rehab hospital environment. Allergies Allergy/AdvReac Type Severity Reaction Status Date / Time Sulfa (Sulfonamide Allergy Severe FACE/THROAT Verified 11/17/19 02:12 Antibiotics) SWELL UP Home Medications Home Medications Medication Instructions Recorded Confirmed Type cyanocobalamin (vitamin B-12) 500 mcg PO DAILY 08/16/19 11/17/19 History [Vitamin B-12] esomeprazole magnesium [Nexium] 40 mg PO DAILY 08/16/19 11/17/19 History folic acid 1 mg PO DAILY 08/16/19 11/17/19 History misoprostol [Cytotec] 100 mcg PO QID 08/16/19 11/17/19 History thiamine HCl (vitamin B1) [Vitamin 100 mg PO QAM #30 tab 08/22/19 11/17/19 Rx B-1] meclizine 25 mg PO Q8H PRN #30 tab 09/29/19 11/17/19 Rx duloxetine 30 mg PO BID 11/17/19 11/17/19 History fludrocortisone 0.1 mg PO DAILY 11/17/19 11/17/19 History gabapentin 300 mg PO TID 11/17/19 11/17/19 History levothyroxine 25 mcg PO DAILY 11/17/19 11/17/19 History nortriptyline 25 mg PO HS 11/17/19 11/17/19 History sucralfate 1 g PO ACHS 11/17/19 11/17/19 History Patient History Medical History Acute alcohol abuse (Chronic) Alcohol abuse Anemia, iron deficiency (Chronic) Arthritis (Chronic) Bacteremia DVT prophylaxis Esophagus disorder Gram positive sepsis Hypokalemia Small bowel obstruction (Resolved) Ulcer GI Surgical History History of incision and drainage (08/18/19) Left Axillary Abscess Incision and Drainage Dr. Perdue 08/18/19 Status post appendectomy (Chronic) Status post cholecystectomy (Chronic) Status post gastric bypass for obesity (Chronic) Status post hysterectomy (Chronic) Family History Other No pertinent family history in first degree relatives Social History Preferred Language: [place] Communication Ability: Effective Glass Designer Required: No Beliefs That Will Affect Care: None marital status: Current Living Situation: Other Current Living Situation Comment: Friend Feels Safe at Home: Yes Safety Concerns: Feels Safe At This Time Smoking Status: Former smoker Tobacco Type: cigarettes ; Second Hand Exposure: Yes ; Hx Alcohol Use: Yes Alcohol type: beer and hard liquor Hx Substance Use: No Review of Systems Review of Systems: No new ROS targets Physical Exam Physical Exam: Vitals--noted HEENT--icteric Respiratory--comfortable--diminished in the base Cardio--some generalized edema--perfusion is adequate GI--no worsening tenderness Musculo--no acute target Neuro--symmetric weakness Results & Data Vital Signs (Past 12 Hours) Vital Signs Temp Pulse Pulse Resp BP Pulse Ox 11/19/19 15:06 36.6 C 99 H 18 99/67 L 93 11/19/19 11:00 36.7 C 89 18 108/68 91 11/19/19 09:36 97 H 11/19/19 07:06 36.9 C 97 H 18 110/68 95 01/15/20 04:26 37.5 C 99 H 20 107/64 92 11/19/19 04:20 88 L
[2019-11-19] MEDS: CARBOHYDRATES FOR HYPOGLYCEMIA PO PRN ×2 (16:59→17:29)
--- NOTE | 2019-11-19 19:23 | Hospitalist Progress Note ---
Date of Service November 19, 2019 Assessment & Plan (1) Hyperbilirubinemia: Patient is a 63 yr female who presents with nausea and vomiting for few days, frequent falls, generalized body ache Nausea/Vomiting Hyperbilirubinemia H/O RYGB with anastomotic ulcer --CT ABD:Displaced fractures of the posterior left 10th and 11th ribs, which are acute appearing. Small left pleural effusion new from prior. Minimal complexity suggested dependently while the majority of this effusion is water density. It is difficult to exclude a minimal hemothorax component. Left basilar atelectasis with mucous plugging. No evidence of acute intra-abdominal injury. [place]-en-Y gastric bypass without evidence of complication. Severe hepatic steatosis. --ABD USD:Surgically absent gallbladder. Hepatic steatosis. No significant ductal dilatation --Appreciate GI Input --Since CBD is nondilated, no plan for MRCP --Not tolerated regular diet --Continue PPI, Carafate --Liver serological studies ordered --Monitor LFTs --Chronic abdominal pain--with history of chronic marginal ulcer--May need possible revision of her RYGB. --We will advise patient to follow-up with bariatric surgeon upon discharge --Advance diet as tolerated Hypotension: Likely worsened due to dehydration on [place] Monitor BP Electrolyte abnormalities: Hypokalemia/Hypomagnesemia/Hypophosphatemia Likely due to GI loses Replace electrolytes as needed Bacteremia H/O MSSA bacteremia Blood Cx: MRSA ECHO: No visualized valvular disease Continue Vancomycin Appreciate ID Input DM II Last Hb A1C:5.4 Hypoglycemia noted ISS while hospitalized Monitor BGs Peptic ulcer disease Continue Nexium and sucralfate Recent pulmonary nodule. Follow up repeat CT scan as outpatient Alcoholism Denies any recent alcohol drink Continue thiamine, folic acid Counseled to quit completely H/O Falls Rib fractures secondary to fall Pain control Incentive Spirometry H/O Obesity H/O Gastric Bypass DVT Px: SCDs Code status: Full Code DISPOSITION: PT/OT prior to discharge Subjective Patient seen and examined at bedside Denies any nausea, vomiting, abdominal pain this morning Not tolerating diet this afternoon after having regular food Blood cultures growing MRSA Continues to have chronic abdominal pain Reports loose BMs today Denies any chest pain, SOB, dizziness Review of Systems Review of Systems: All systems reviewed & are unremarkable except as noted in HPI & below Physical Exam Physical Exam: Physical Exam: Vitals signs as noted above General Appearance:Thin, frail, No apparent distress Head: normocephalic, Atraumatic Eyes: normal inspection, EOMI Neck: supple, Trachea midline Respiratory/Chest: Normal breath sounds, CTA Cardiovascular: S1, S2, No murmur Abdomen/GI:Soft, Mild generalized tender, Bowel sounds present Extremities/Musculoskelatal:normal inspection, no edema Neurologic/Psych:AAOX3, grossly no focal neurological deficits Skin: normal color, warm Results & Data Vital Signs (Past 12 Hours) Vital Signs Temp Pulse Pulse Resp BP Pulse Ox 11/19/19 18:41 37.3 C 121 H 22 113/89 89 L 11/19/19 16:18 99 H 11/19/19 15:06 36.6 C 99 H 18 99/67 L 93 11/19/19 11:00 36.7 C 89 18 108/68 91 11/19/19 09:36 97 H Laboratory Results Short CBC 11/19/19 Range/Units 07:59 Hgb 8.3 L (12.0-16.0) g/dL Hct 25.3 L (37-47) % BMP 11/19/19 07:59 Sodium 133 L Potassium 3.4 L Chloride 103 Carbon Dioxide 23 BUN 12 Creatinine 0.75 Glucose 72 Calcium 7.9 L Liver Function 11/19/19 Range/Units 07:59 Total Bilirubin 4.4 H (0.2-1) mg/dl AST 142 H (15-37) U/L ALT 61 (12-78) U/L Alkaline Phosphatase 134 H (45-117) U/L Albumin 1.3 L (3.4-5.0) gm/dl Urine 11/19/19 Range/Units 02:49 Urine Color Yellow Urine Appearance Clear (Clear) Urine pH 5.0 (4.5-7.5) Ur Specific [place] 1.020 (1.000-1.030) Urine Protein Negative (Negative) Urine Glucose (UA) 3+ H (Negative)
[2019-11-19] MEDS: NORTRIPTYLINE HCL 25 MG CAP PO SCH (21:15)
[2019-11-20] MEDS: OXYCODONE HCL IR 5 MG TAB (IMMEDIATE RELEASE) PO PRN ×2 (04:23→21:15)
[2019-11-20] MEDS: LEVOTHYROXINE SODIUM 25 MCG TABLET PO SCH (05:49)
[2019-11-20 06:26] LABS: Hematocrit (blood only) 21.7 % (37-47); Hemoglobin 7.1 g/dL (12.0-16.0)
[2019-11-20 07:01] LABS: Calcium 7.1 mg/dl (8.5-10.1); Creatinine Clr Calc Pharmacy 83.3 ml/min; Est GFR (African American) 111.4; Est GFR (Non-African American) 96.1; Magnesium 1.7 mg/dl (1.8-2.4); Potassium 3.1 mmol/L (3.5-5.1)
[2019-11-20 07:06] LABS: Phosphorus 2.4 mg/dl (2.5-4.9)
[2019-11-20] MEDS: PANTOprazole 40 MG TAB PO SCH (08:01)
[2019-11-20] MEDS: SUCRALFATE 1 GM TAB PO SCH ×4 (08:01→21:11)
[2019-11-20] MEDS: FLUDROCORTISONE ACETATE 0.1 MG TAB PO SCH (08:01)
[2019-11-20] MEDS: INSULIN ASPART 100 UNITS/ML 3 ML PEN SC SCH ×4 (08:02→21:32)
[2019-11-20] MEDS: FOLIC ACID 1 MG TAB PO SCH (08:02)
[2019-11-20] MEDS: CYANOCOBALAMIN 500 MCG TABLET (VITAMIN B-12) PO SCH (08:02)
[2019-11-20] MEDS: GABAPENTIN 300 MG CAP PO SCH ×3 (08:02→21:10)
[2019-11-20] MEDS: THIAMINE HCL 100 MG TAB PO SCH (08:02)
[2019-11-20] MEDS: miSOPROStoL 100 MCG TAB PO SCH ×4 (08:02→21:11)
[2019-11-20] MEDS: DULOXETINE HCL 30 MG CAP PO SCH ×2 (08:05→21:11)
[2019-11-20] MEDS: VANCOMYCIN HCL 750 MG in SODIUM CHLORIDE 0.9% 250 ML IV SCH (08:15)
[2019-11-20 08:52] LABS: Albumin Level 1.1 gm/dl (3.4-5.0); Bilirubin,Total 3.6 mg/dl (0.2-1); Total Protein 4.5 gm/dl (6.4-8.2)
[2019-11-20 09:02] LABS: Hepatitis B Surface Ab Quant < 3.10 mIU/mL (>or=10mIU/mL Immune); Hepatitis B Surface Antibody Non-Immune
[2019-11-20 09:12] LABS: Hepatitis B Surface Antigen Neg (Neg)
[2019-11-20] MEDS ORDERED: POTASSIUM CHLORIDE 20 MEQ TABCR PO STA ×2 (09:15→21:28)
[2019-11-20 09:41] LABS: Hepatitis C IgG 13Yrs+Old_Rflx Neg (Neg)
--- NOTE | 2019-11-20 10:07 | Infectious Disease Progress Nt ---
Date of Service November 20, 2019 Assessment & Plan (1) Gram positive sepsis: will change to dapto and repeat culture also + for MRSA will repeat, unclear source, back pain may be due to rib fracture but would consider MRI t and l spine to r/o infection as she remains with + blood cultures. RAFITA to vanco 2, will change to dapto. Subjective pt seen in f/u, still with back/chest discomfort. blood cultures remain + - all sets. initial culture growing MRSA ugalde rafita = 2. afebrile. she remains afebrile. no sob, cough, no abd pain, no n/v/d. Review of Systems Review of Systems: All systems reviewed & are unremarkable except as noted in HPI & below Physical Exam Constitutional: WD/WN, vitals as above Eyes: PERRL, conjunctivae normal, anicteric sclerae ENMT: external ear and nose normal, oropharynx normal Neck: normal visual inspection Respiratory: normal respiratory effort, lungs clear to auscultation Auscultation: + diminished lung sounds Cardiovascular: RRR, no murmur, no edema Gastrointestinal (Abdomen): normal bowel sounds, soft, nontender, no hepatosplenomegaly Musculoskeletal: no cyanosis or clubbing, extremities motor strength 5/5 Skin: no rashes, warm and dry + jaundice Psychiatric: A+Ox3, euthymic affect Results & Data Vital Signs (Past 12 Hours) Vital Signs Temp Pulse Pulse Resp BP Pulse Ox 11/20/19 07:45 97 H 11/20/19 07:00 36.2 C L 95 H 18 88/57 L 94 11/20/19 03:23 37.2 C 96 H 18 103/66 96 11/19/19 23:33 37 C 89 16 99/61 L 97 11/19/19 22:25 96 H Laboratory Results Microbiology 11/19/19 11:33 Blood Aerobic Blood Culture - Preliminary Gram positive cocci clusters 11/19/19 11:33 Blood Aerobic Blood Culture - Preliminary Gram positive cocci clusters 11/18/19 06:04 Blood Aerobic Blood Culture - Preliminary Staph aureus MRSA 11/18/19 06:04 Blood Anaerobic Blood Culture - Preliminary No growth in Anaerobic bottle after 48 hours. 11/18/19 05:55 Blood Aerobic Blood Culture - Preliminary Staph aureus MRSA 11/18/19 05:55 Blood Anaerobic Blood Culture - Preliminary No growth in Anaerobic bottle after 48 hours. 11/17/19 02:36 Blood Aerobic Blood Culture - Preliminary No growth in Aerobic bottle after 48 hours. 11/17/19 02:36 Blood Anaerobic Blood Culture - Preliminary Staph aureus MRSA 11/17/19 02:33 Blood Aerobic Blood Culture - Preliminary No growth in Aerobic bottle after 48 hours. 11/17/19 02:33 Blood Anaerobic Blood Culture - Preliminary Staph aureus MRSA PG Care Time/CCT Total # of Minutes Spent Total Time Spent with Patient: Total time spent is greater than 50% in coordination of care (as documented) at patient's floor/unit and/or counseling patient:
[2019-11-20] MEDS: MAGNESIUM CHLORIDE 64MG DELAYED REL TAB PO SCH ×2 (10:15→21:10)
[2019-11-20] MEDS ORDERED: DAPTOmycin 350 MG in SYRINGE 0 ML IV SCH (11:00)
[2019-11-20] MEDS: DAPTOmycin 450 MG in SYRINGE 0 ML IV SCH (11:30)
--- NOTE | 2019-11-20 12:32 | Gastroenterology Progress Note ---
Date of Service November 20, 2019 Assessment & Plan (1) Hyperbilirubinemia: - Labs improved today - Would repeat daily LFTs, bilirubin (2) LFT elevation: - Await liver serologies - Repeat daily LFts - Would f/u with GI as an outpt - Strict ETOH avoidance. Tylenol < 2 gm daily Supervising Physician Co-Signing Physician Notes I have seen and examined the patient with Liz GORMAN whose note reflects our findings and plan. Subjective Pt seen and examined; this AM feeling somewhat better; abd pain and nausea are improved. No vomiting; tolerated some breakfast. Liver serologies are pending. Bilirubin improved to 3.6. Bowels are moving regularly, on the looser side; denies melena, hematochezia, chest pain, dyspnea, cough, fever. Review of Systems Review of Systems: All systems reviewed & are unremarkable except as noted in HPI & below Physical Exam Constitutional: WD/WN, vitals as above Respiratory: normal respiratory effort, lungs clear to auscultation Cardiovascular: RRR, no murmur, no edema Gastrointestinal (Abdomen): normal bowel sounds, soft, nontender, no h epatosplenomegaly Skin: no rashes, warm and dry Neurologic: no focal motor deficits Psychiatric: A+Ox3, euthymic affect Results & Data Vital Signs (Past 12 Hours) Vital Signs Temp Pulse Pulse Resp BP Pulse Ox 11/20/19 11:54 36.8 C 98 H 18 96/61 L 95 11/20/19 07:45 97 H 11/20/19 07:00 36.2 C L 95 H 18 88/57 L 94 11/20/19 03:23 37.2 C 96 H 18 103/66 96 Laboratory Results 11/20/19 11/20/19 11/20/19 Range/Units 11:40 11:02 07:41 Hgb (12.0-16.0) g/dL Hct (37-47) % PT (9.0-12.0) Seconds INR (0.9-1.1) Sodium (136-145) mmol/L Potassium (3.5-5.1) mmol/L Chloride (98-107) mmol/L Carbon Dioxide (21-32) mmol/L Anion Gap (3-11) BUN (7-18) mg/dl Creatinine (0.6-1.2) mg/dl Est Cr Clr Drug Dosing ml/min Est GFR ( Amer) Est GFR (Non-Af Amer) BUN/Creatinine Ratio (10-20) Glucose (70-99) mg/dl POC Glucose 85 72 (70-99) mg/dl Calcium (8.5-10.1) mg/dl Phosphorus (2.5-4.9) mg/dl Magnesium (1.8-2.4) mg/dl Iron (35-150) mcg/dl TIBC (250-450) mcg/dl Transferrin (200-360) mg/dl Ferritin (8-388) ng/ml Total Bilirubin (0.2-1) mg/dl Direct Bilirubin (0-0.2) mg/dl AST (15-37) U/L ALT (12-78) U/L Alkaline Phosphatase (45-117) U/L Total Creatine Kinase 24 L (26-192) U/L Total Protein (6.4-8.2) gm/dl Total Protein (PEP) Albumin (3.4-5.0) gm/dl Albumin (PEP) Ruvmq-3-Caqgzvvfq Jjuqb-3-Kstvneuzg Dwlg-5-Geenbboe Maib-1-Nktcqnrk Gamma Globulins Monoclonal Peak 3 Ser Monoclonl Protein Ser Monoclonal Prot 2 PEP Interpretation Acmbe-5-Ihcfxsjixsa Ceruloplasmin MAURICIO Screen Anti-Mitochondrial Ab Anti-Smooth Muscle Ab Tiss Transglutamin IgA Hepatitis A IgM Ab Hepatitis A Ab Total Hep Bs Antigen (Neg) Hep Bs Antibody Hep Bs Antibody, Quant (>or=10mIU/mL Immune) mIU/mL Hep B Core IgM Ab Hepatitis C Antibody (Neg) Hepatitis C Ab (EIA) Hep C Ab Signal/Cutoff 11/20/19 11/20/19 11/20/19 Range/Units 05:40 05:40 05:40 Hgb 7.1 L (12.0-16.0) g/dL Hct 21.7 L (37-47) % PT (9.0-12.0) Seconds INR (0.9-1.1) Sodium (136-145) mmol/L Potassium (3.5-5.1) mmol/L Chloride (98-107) mmol/L Carbon Dioxide (21-32) mmol/L Anion Gap (3-11) BUN (7-18) mg/dl Creatinine (0.6-1.2) mg/dl Est Cr Clr Drug Dosing ml/min Est GFR ( Amer) Est GFR (Non-Af Amer) BUN/Creatinine Ratio (10-20) Glucose (70-99) mg/dl POC Glucose (70-99) mg/dl Calcium (8.5-10.1) mg/dl Phosphorus (2.5-4.9) mg/dl Magnesium (1.8-2.4) mg/dl Iron (35-150) mcg/dl TIBC (250-450) mcg/dl Transferrin (200-360) mg/dl Ferritin (8-388) ng/ml Total Bilirubin 3.6 H (0.2-1) mg/dl Direct Bilirubin 3.0 H (0-0.2) mg/dl AST 111 H (15-37) U/L ALT 51 (12-78) U/L Alkaline Phosphatase 124 H (45-117) U/L Total Creatine Kinase (26-192) U/L Total Protein 4.5 L (6.4-8.2) gm/dl Total Protein (PEP) Pending Albumin 1.1 L (3.4-5.0) gm/dl Albumin (PEP) Pending Gpggd-5-Hcmajeefp Pending Ivrzv-6-Gbrmvboaq Pending Kwiz-2-Xajddodx Pending Ojhd-0-Nyjpeknx Pending Gamma Globulins Pending Monoclonal Peak 3 Pending Ser Monoclonl Protein Pending Ser Monoclonal Prot 2 Pending PEP Interpretation Pending Ujsfp-3-Szadfzwqsbz Pending Ceruloplasmin Pending MAURICIO Screen Pending Anti-Mitochondrial Ab Anti-Smooth Muscle Ab Tiss Transglutamin IgA Hepatitis A IgM Ab Pending Hepatitis A Ab Total Pending Hep Bs Antigen (Neg) Hep Bs Antibody Hep Bs Antibody, Quant (>or=10mIU/mL Immune) mIU/mL Hep B Core IgM Ab Pending Hepatitis C Antibody (Neg) Hepatitis C Ab (EIA) Pending Hep C Ab Signal/Cutoff Pending 11/20/19 11/20/19 11/19/19 Range/Units 05:40 05:40 19:55 Hgb (12.0-16.0) g/dL Hct (37-47) % PT (9.0-12.0) Seconds INR (0.9-1.1) Sodium 132 L (136-145) mmol/L Potassium 3.1 L (3.5-5.1) mmol/L Chloride 102 (98-107) mmol/L Carbon Dioxide 25 (21-32) mmol/L Anion Gap 5.0 (3-11) BUN 9 (7-18) mg/dl Creatinine 0.63 (0.6-1.2) mg/dl Est Cr Clr Drug Dosing 83.3 ml/min Est GFR ( Amer) 111.4 Est GFR (Non-Af Amer) 96.1 BUN/Creatinine Ratio 14.0 (10-20) Glucose 55 L (70-99) mg/dl POC Glucose 97 (70-99) mg/dl Calcium 7.1 L (8.5-10.1) mg/dl Phosphorus 2.4 L (2.5-4.9) mg/dl Magnesium 1.7 L (1.8-2.4) mg/dl Iron 12 L (35-150) mcg/dl TIBC 70 L (250-450) mcg/dl Transferrin 59 L (200-360) mg/dl Ferritin (8-388) ng/ml Total Bilirubin (0.2-1) mg/dl Direct Bilirubin (0-0.2) mg/dl AST (15-37) U/L ALT (12-78) U/L Alkaline Phosphatase (45-117) U/L Total Creatine Kinase (26-192) U/L Total Protein (6.4-8.2) gm/dl Total Protein (PEP) Albumin (3.4-5.0) gm/dl Albumin (PEP) Loiep-8-Uzvuslkgr Xdjdz-1-Xadxmltza Tehs-9-Hsywnujz Bjhi-2-Lmktrbet Gamma Globulins Monoclonal Peak 3 Ser Monoclonl Protein Ser Monoclonal Prot 2 PEP Interpretation Piowf-2-Jklqnoonxjx Ceruloplasmin MAURICIO Screen Anti-Mitochondrial Ab Anti-Smooth Muscle Ab Tiss Transglutamin IgA Hepatitis A IgM Ab Hepatitis A Ab Total Hep Bs Antigen Neg (Neg) Hep Bs Antibody Non-Immune Hep Bs Antibody, Quant < 3.10 L (>or=10mIU/mL Immune) mIU/mL Hep B Core IgM Ab Hepatitis C Antibody Neg (Neg) Hepatitis C Ab (EIA) Hep C Ab Signal/Cutoff 11/19/19 11/19/19 11/19/19 Range/Units 17:48 17:27 17:11 Hgb (12.0-16.0) g/dL Hct (37-47) % PT (9.0-12.0) Seconds INR (0.9-1.1) Sodium (136-145) mmol/L Potassium (3.5-5.1) mmol/L Chloride (98-107) mmol/L Carbon Dioxide (21-32) mmol/L Anion Gap (3-11) BUN (7-18) mg/dl Creatinine (0.6-1.2) mg/dl Est Cr Clr Drug Dosing ml/min Est GFR ( Amer) Est GFR (Non-Af Amer) BUN/Creatinine Ratio (10-20) Glucose (70-99) mg/dl POC Glucose 71 59 L* 61 L* (70-99) mg/dl Calcium (8.5-10.1) mg/dl Phosphorus (2.5-4.9) mg/dl Magnesium (1.8-2.4) mg/dl Iron (35-150) mcg/dl TIBC (250-450) mcg/dl Transferrin (200-360) mg/dl Ferritin (8-388) ng/ml Total Bilirubin (0.2-1) mg/dl Direct Bilirubin (0-0.2) mg/dl AST (15-37) U/L ALT (12-78) U/L Alkaline Phosphatase (45-117) U/L Total Creatine Kinase (26-192) U/L Total Protein (6.4-8.2) gm/dl Total Protein (PEP) Albumin (3.4-5.0) gm/dl Albumin (PEP) Billq-0-Lowypfjeq Yhdxk-8-Dugmvelct Bhks-6-Akerfozp Suzk-8-Trxlcqvs Gamma Globulins Monoclonal Peak 3 Ser Monoclonl Protein Ser Monoclonal Prot 2 PEP Interpretation Ucgra-7-Yvkaiqfyrjf Ceruloplasmin MAURICIO Screen Anti-Mitochondrial Ab Anti-Smooth Muscle Ab Tiss Transglutamin IgA Hepatitis A IgM Ab Hepatitis A Ab Total Hep Bs Antigen (Neg) Hep Bs Antibody Hep Bs Antibody, Quant (>or=10mIU/mL Immune) mIU/mL Hep B Core IgM Ab Hepatitis C Antibody (Neg) Hepatitis C Ab (EIA) Hep C Ab Signal/Cutoff 11/19/19 11/19/19 11/19/19 Range/Units 16:24 12:46 12:46 Hgb (12.0-16.0) g/dL Hct (37-47) % PT (9.0-12.0) Seconds INR (0.9-1.1) Sodium (136-145) mmol/L Potassium (3.5-5.1) mmol/L Chloride (98-107) mmol/L Carbon Dioxide (21-32) mmol/L Anion Gap (3-11) BUN (7-18) mg/dl Creatinine (0.6-1.2) mg/dl Est Cr Clr Drug Dosing ml/min Est GFR ( Amer) Est GFR (Non-Af Amer) BUN/Creatinine Ratio (10-20) Glucose (70-99) mg/dl POC Glucose 67 L* (70-99) mg/dl Calcium (8.5-10.1) mg/dl Phosphorus (2.5-4.9) mg/dl Magnesium (1.8-2.4) mg/dl Iron (35-150) mcg/dl TIBC (250-450) mcg/dl Transferrin (200-360) mg/dl Ferritin 385.9 (8-388) ng/ml Total Bilirubin (0.2-1) mg/dl Direct Bilirubin (0-0.2) mg/dl AST (15-37) U/L ALT (12-78) U/L Alkaline Phosphatase (45-117) U/L Total Creatine Kinase (26-192) U/L Total Protein (6.4-8.2) gm/dl Total Protein (PEP) Albumin (3.4-5.0) gm/dl Albumin (PEP) Wllzb-4-Czutaydxu Zeegx-7-Oujxnkayt Vwrt-6-Pslyzlkw Xjcp-2-Aumubiwi Gamma Globulins Monoclonal Peak 3 Ser Monoclonl Protein Ser Monoclonal Prot 2 PEP Interpretation Nektz-0-Notjavnrlvn Ceruloplasmin MAURICIO Screen Anti-Mitochondrial Ab Pending Anti-Smooth Muscle Ab Pending Tiss Transglutamin IgA Pending Hepatitis A IgM Ab Hepatitis A Ab Total Hep Bs Antigen (Neg) Hep Bs Antibody Hep Bs Antibody, Quant (>or=10mIU/mL Immune) mIU/mL Hep B Core IgM Ab Hepatitis C Antibody (Neg) Hepatitis C Ab (EIA) Hep C Ab Signal/Cutoff 11/19/19 Range/Units 12:46 Hgb (12.0-16.0) g/dL Hct (37-47) % PT 12.0 (9.0-12.0) Seconds INR 1.2 H (0.9-1.1) Sodium (136-145) mmol/L Potassium (3.5-5.1) mmol/L Chloride (98-107) mmol/L Carbon Dioxide (21-32) mmol/L Anion Gap (3-11) BUN (7-18) mg/dl Creatinine (0.6-1.2) mg/dl Est Cr Clr Drug Dosing ml/min Est GFR ( Amer) Est GFR (Non-Af Amer) BUN/Creatinine Ratio (10-20) Glucose (70-99) mg/dl POC Glucose (70-99) mg/dl Calcium (8.5-10.1) mg/dl Phosphorus (2.5-4.9) mg/dl Magnesium (1.8-2.4) mg/dl Iron (35-150) mcg/dl TIBC (250-450) mcg/dl Transferrin (200-360) mg/dl Ferritin (8-388) ng/ml Total Bilirubin (0.2-1) mg/dl Direct Bilirubin (0-0.2) mg/dl AST (15-37) U/L ALT (12-78) U/L Alkaline Phosphatase (45-117) U/L Total Creatine Kinase (26-192) U/L Total Protein (6.4-8.2) gm/dl Total Protein (PEP) Albumin (3.4-5.0) gm/dl Albumin (PEP) Hwbog-6-Udkueodzl Uwmpr-5-Bvdngnavj Trth-5-Yhnfnsbk Xztj-7-Lmsdjzon Gamma Globulins Monoclonal Peak 3 Ser Monoclonl Protein Ser Monoclonal Prot 2 PEP Interpretation Vbhem-9-Notptbzwsfy Ceruloplasmin MAURICIO Screen Anti-Mitochondrial Ab Anti-Smooth Muscle Ab Tiss Transglutamin IgA Hepatitis A IgM Ab Hepatitis A Ab Total Hep Bs Antigen (Neg) Hep Bs Antibody Hep Bs Antibody, Quant (>or=10mIU/mL Immune) mIU/mL Hep B Core IgM Ab Hepatitis C Antibody (Neg) Hepatitis C Ab (EIA) Hep C Ab Signal/Cutoff
[2019-11-20 15:13] LABS: Hematocrit (blood only) 21.3 % (37-47); Hemoglobin 7.1 g/dL (12.0-16.0)
--- NOTE | 2019-11-20 18:26 | Hospitalist Progress Note ---
Date of Service November 20, 2019 Assessment & Plan (1) Hyperbilirubinemia: Patient is a 63 yr female who presents with nausea and vomiting for few days, frequent falls, generalized body ache Nausea/Vomiting Hyperbilirubinemia H/O RYGB with anastomotic ulcer --CT ABD:Displaced fractures of the posterior left 10th and 11th ribs, which are acute appearing. Small left pleural effusion new from prior. Minimal complexity suggested dependently while the majority of this effusion is water density. It is difficult to exclude a minimal hemothorax component. Left basilar atelectasis with mucous plugging. No evidence of acute intra-abdominal injury. [place]-en-Y gastric bypass without evidence of complication. Severe hepatic steatosis. --ABD USD:Surgically absent gallbladder. Hepatic steatosis. No significant ductal dilatation --Appreciate GI Input --Since CBD is nondilated, no plan for MRCP --Continue PPI, Carafate --Liver serological studies ordered --Monitor LFTs --Chronic abdominal pain--with history of chronic marginal ulcer--May need possible revision of her RYGB. --We will advise patient to follow-up with bariatric surgeon upon discharge --Very poor appetite --LFTs slightly better Hypotension: Likely worsened due to dehydration on Florinef Monitor BP Electrolyte abnormalities: Hypokalemia/Hypomagnesemia/Hypophosphatemia Likely due to GI loses Replace electrolytes as needed Sepsis MRSA Bacteremia Unidentified source Blood Cx: MRSA ECHO: No visualized valvular disease IV Vancomycin changed to Daptomycin Appreciate ID Input Get MRI thoracic, lumbar spine DM II Last Hb A1C:5.4 Hypoglycemia noted ISS while hospitalized Monitor BGs Peptic ulcer disease Continue Nexium and sucralfate Recent pulmonary nodule. Follow up repeat CT scan as outpatient Alcoholism Denies any recent alcohol drink Continue thiamine, folic acid Counseled to quit completely H/O Falls Rib fractures secondary to fall Pain control Incentive Spirometry H/O Obesity H/O Gastric Bypass DVT Px: SCDs Code status: Full Code DISPOSITION: PT/OT prior to discharge Subjective Patient seen and examined at bedside Poor appetite Nausea, abdominal pain better Had loose bowel movement today Reports dyspnea on exertion Review of Systems Review of Systems: All systems reviewed & are unremarkable except as noted in HPI & below Physical Exam Physical Exam: Physical Exam: Vitals signs as noted above General Appearance:Thin, frail, No apparent distress Head: normocephalic, Atraumatic Eyes: normal inspection, EOMI Neck: supple, Trachea midline Respiratory/Chest: Normal breath sounds, CTA Cardiovascular: S1, S2, No murmur Abdomen/GI:Soft, Mild generalized tender, Bowel sounds present Extremities/Musculoskelatal:normal inspection, no edema Neurologic/Psych:AAOX3, grossly no focal neurological deficits Skin: normal color, warm Results & Data Vital Signs (Past 12 Hours) Vital Signs Temp Pulse Pulse Resp BP Pulse Ox 11/20/19 16:59 96 H 11/20/19 15:35 36.7 C 98 H 18 97/63 L 94 11/20/19 11:54 36.8 C 98 H 18 96/61 L 95 11/20/19 07:45 97 H 11/20/19 07:00 36.2 C L 95 H 18 88/57 L 94 Laboratory Results Short CBC 11/20/19 11/20/19 Range/Units 05:40 14:56 Hgb 7.1 L 7.1 L (12.0-16.0) g/dL Hct 21.7 L 21.3 L (37-47) % BMP 11/20/19 05:40 Sodium 132 L Potassium 3.1 L Chloride 102 Carbon Dioxide 25 BUN 9 Creatinine 0.63 Glucose 55 L Calcium 7.1 L Cardiac Enzymes 11/20/19 Range/Units 11:02 Total Creatine Kinase 24 L (26-192) U/L Liver Function 11/20/19 Range/Units 05:40 Total Bilirubin 3.6 H (0.2-1) mg/dl Direct Bilirubin 3.0 H (0-0.2) mg/dl AST 111 H (15-37) U/L ALT 51 (12-78) U/L Alkaline Phosphatase 124 H (45-117) U/L Albumin 1.1 L (3.4-5.0) gm/dl
[2019-11-20] MEDS: NORTRIPTYLINE HCL 25 MG CAP PO SCH (21:10)
[2019-11-20] MEDS ORDERED: LACTATED RINGER'S 1,000 ML IV ONE (21:40)
[2019-11-20] MEDS: MAGNESIUM SULFATE / D5W 1 GM/100 ML BAG IV SCH ×2 (22:02→23:04)
[2019-11-20 22:34] LABS: Hematocrit (blood only) 20.9 % (37-47)
[2019-11-20 22:38] LABS: Albumin Level 1.2 gm/dl (3.4-5.0); BUN Creatinine Ratio 13.1 (10-20); Calcium 7.3 mg/dl (8.5-10.1); Creatinine Clr Calc Pharmacy 69.1 ml/min; Est GFR (African American) 97.4; Est GFR (Non-African American) 84.1; Magnesium 1.6 mg/dl (1.8-2.4); Potassium 3.6 mmol/L (3.5-5.1)
[2019-11-20 22:58] LABS: Albumin Globulin Ratio 0.3 (0.9-2); Bilirubin,Total 4.1 mg/dl (0.2-1); Globulin 3.7 gm/dl (2.5-4.0); Thyroid Stimulating Hormone 4.34 uIu/ml (0.300-4.500); Total Protein 4.9 gm/dl (6.4-8.2)
[2019-11-21] MEDS ORDERED: SODIUM CHLORIDE 0.9% 250 ML IV PRN (00:24)
[2019-11-21] MEDS: LEVOTHYROXINE SODIUM 25 MCG TABLET PO SCH (06:11)
[2019-11-21] MEDS: OXYCODONE HCL IR 5 MG TAB (IMMEDIATE RELEASE) PO PRN ×2 (06:11→13:18)
[2019-11-21] MEDS: PANTOprazole 40 MG TAB PO SCH (07:59)
[2019-11-21] MEDS: FOLIC ACID 1 MG TAB PO SCH (07:59)
[2019-11-21] MEDS: SUCRALFATE 1 GM TAB PO SCH ×4 (07:59→21:12)
[2019-11-21] MEDS: CYANOCOBALAMIN 500 MCG TABLET (VITAMIN B-12) PO SCH (07:59)
[2019-11-21] MEDS: FLUDROCORTISONE ACETATE 0.1 MG TAB PO SCH (07:59)
[2019-11-21] MEDS: DULOXETINE HCL 30 MG CAP PO SCH ×2 (07:59→21:12)
[2019-11-21] MEDS: THIAMINE HCL 100 MG TAB PO SCH (08:00)
[2019-11-21] MEDS: miSOPROStoL 100 MCG TAB PO SCH ×4 (08:00→21:12)
[2019-11-21] MEDS: MAGNESIUM CHLORIDE 64MG DELAYED REL TAB PO SCH ×2 (08:00→21:12)
[2019-11-21] MEDS: GABAPENTIN 300 MG CAP PO SCH ×3 (08:01→21:12)
[2019-11-21] MEDS: INSULIN ASPART 100 UNITS/ML 3 ML PEN SC SCH ×4 (08:01→21:25)
[2019-11-21] MEDS ORDERED: VANCOMYCIN TROUGH ONE (08:30)
[2019-11-21] MEDS ORDERED: LORazepam 0.5 MG TAB PO STA (08:48)
--- NOTE | 2019-11-21 11:30 | Magnetic Resonance Report ---
MR lumbar spine wo con HISTORY: Pain. Infection. MRSA BActeremia TECHNIQUE: Multiplanar multisequence MRI of the lumbar spine was performed without the use of contras t. COMPARISON: None. FINDINGS: For the purpose of the report the L5-S1 disc space will be located on axial image 27 of 30. Limited study technically due to severe patient motion. Signal characteristics of the vertebral jeanette s are unremarkable. Posterior disc herniation L2-L3. No significant bone marrow replacing process. L1-L2: No significant central canal or neural foraminal narrowing. L2-L3: Broad-based disc herniation. Moderate narrowing of the spinal canal. Moderate to significant n arrowing of the neural foramina bilaterally. L3-L4: No significant central canal or neural foraminal narrowing. L4-L5: Minimal broad-based disc bulge. Mild hypertrophic change posterior elements. L5-S1: No significant central canal or neural foraminal narrowing. IMPRESSION: 1. Limited study technically due to severe patient motion. 2. Broad-based disc herniation L3-L4 with moderate narrowing of the spinal canal and moderate to sign ificant narrowing of the neural foramina bilaterally. 3. Mild broad-based bulging disc L4-L5. ACT 112: Negative or not required by law. The above report was generated using voice recognition software. It may contain grammatical, syntax or spelling errors. Electronically signed by: Konrad Issa M.D. 11/21/2019 11:28 AM
[2019-11-21 11:31] LABS: Hematocrit (blood only) 27.1 % (37-47)
--- NOTE | 2019-11-21 11:36 | Magnetic Resonance Report ---
MR thoracic spine wo con HISTORY: Pain MRSA BActeremia TECHNIQUE: Multiplanar multisequence MRI of the thoracic spine was performed without the use of contr ast. COMPARISON: CT chest 11/17/2019 FINDINGS: Limited study technically due to severe patient motion. Vertebral body stature is normal. No evidence for bone marrow replacing process. Slightly complex left pleural effusion raises the possibility of hemothorax. Transaxial images throughout the entire thoracic region show no major disc herniation. There is no hi gh-grade component of spinal stenosis. There are several slight disc bulges. Signal characteristics o f the thoracic cord are unremarkable. IMPRESSION: 1. No significant compromise of the spinal canal. 2. Compromised exam due to patient motion. 3. No evidence for compression deformity or bone marrow replacing process. 4. Slightly complex left pleural effusion raising the possibility of a left hemothorax/left pleural e ffusion. ACT 112: Negative or not required by law. The above report was generated using voice recognition software. It may contain grammatical, syntax or spelling errors. Electronically signed by: Konrad Issa M.D. 11/21/2019 11:35 AM
[2019-11-21 11:52] LABS: BUN Creatinine Ratio 12.4 (10-20); Calcium 7.8 mg/dl (8.5-10.1); Creatinine Clr Calc Pharmacy 68.2 ml/min; Est GFR (African American) 95.9; Est GFR (Non-African American) 82.8; Phosphorus 2.2 mg/dl (2.5-4.9); Potassium 4.4 mmol/L (3.5-5.1)
--- NOTE | 2019-11-21 13:00 | Infectious Disease Progress Nt ---
Date of Service November 21, 2019 Assessment & Plan (1) Gram positive sepsis: continue dapto, 11/20 culture negative to date, will follow., unclear source, back pain may be due to rib fracture but would consider MRI t and l spine to r/o infection will need prolonged course of IV abx, range of 6 weeks, will need weekly cbc,cmp, esr, cpk while on abx. Subjective 11/20 blood cultures negative at 24 hours, now on dapto. tolerating well. no mri. afebrile overnight Previous blood cultures growing MRSA, echo negative. Results & Data Vital Signs (Past 12 Hours) Vital Signs Temp Pulse Pulse Resp BP BP BP 11/21/19 11:16 36.4 C L 123 H 20 95/61 L 11/21/19 07:32 95 H 11/21/19 07:00 36.8 C 78 18 99/78 L 11/21/19 04:32 36.6 C 97 H 14 105/66 11/21/19 04:05 37.2 C 96 H 14 94/59 L 11/21/19 03:50 36.7 C 92 H 14 94/61 L 11/21/19 03:30 36.6 C 94 H 16 93/60 L 11/21/19 03:08 36.7 C 96 H 18 94/60 L Pulse Ox 11/21/19 11:16 96 11/21/19 07:32 11/21/19 07:00 96 11/21/19 04:32 94 11/21/19 04:05 95 11/21/19 03:50 94 11/21/19 03:30 93 11/21/19 03:08 94 Laboratory Results Microbiology 11/20/19 11:02 Blood Aerobic Blood Culture - Preliminary No growth in Aerobic bottle after 24 hours. 11/20/19 11:02 Blood Anaerobic Blood Culture - Preliminary No growth in Anaerobic bottle after 24 hours. 11/20/19 11:14 Blood Aerobic Blood Culture - Preliminary No growth in Aerobic bottle after 24 hours. 11/20/19 11:14 Blood Anaerobic Blood Culture - Preliminary No growth in Anaerobic bottle after 24 hours. 11/19/19 11:33 Blood Aerobic Blood Culture - Preliminary Staph aureus MRSA 11/19/19 11:33 Blood Anaerobic Blood Culture - Preliminary No growth in Anaerobic bottle after 24 hours. 11/19/19 11:33 Blood Aerobic Blood Culture - Preliminary Staph aureus MRSA 11/19/19 11:33 Blood Anaerobic Blood Culture - Preliminary No growth in Anaerobic bottle after 24 hours. 11/18/19 06:04 Blood Aerobic Blood Culture - Preliminary Staph aureus MRSA 11/18/19 06:04 Blood Anaerobic Blood Culture - Preliminary No growth in Anaerobic bottle after 48 hours. 11/18/19 05:55 Blood Aerobic Blood Culture - Preliminary Staph aureus MRSA 11/18/19 05:55 Blood Anaerobic Blood Culture - Preliminary No growth in Anaerobic bottle after 48 hours. 11/17/19 02:36 Blood Aerobic Blood Culture - Preliminary No growth in Aerobic bottle after 48 hours. 11/17/19 02:36 Blood Anaerobic Blood Culture - Preliminary Staph aureus MRSA 11/17/19 02:33 Blood Aerobic Blood Culture - Preliminary No growth in Aerobic bottle after 48 hours. 11/17/19 02:33 Blood Anaerobic Blood Culture - Preliminary Staph aureus MRSA PG Care Time/CCT Total # of Minutes Spent Total Time Spent with Patient: Total time spent is greater than 50% in coordination of care (as documented) at patient's floor/unit and/or counseling patient:
[2019-11-21] MEDS: DAPTOmycin 450 MG in SYRINGE 0 ML IV SCH (13:01)
--- NOTE | 2019-11-21 13:26 | Gastroenterology Progress Note ---
Date of Service November 21, 2019 Assessment & Plan (1) Hyperbilirubinemia: - Bilirubin 4.1 today; ALP 144, AST 126, ALT 55, sodium low at 131, HGB improved to 9 - Would monitor daily LFTs, bilirubin Re: her chronic abd pain, s/p RYGB, marginal ulcer - recommend pt keep outpt appts in [place] for surgery f/u for possible revision (2) Nausea & vomiting: (3) LFT elevation: - Await liver serologies - Repeat daily LFTs - Would f/u with GI as an outpt - Strict ETOH avoidance. Tylenol < 2 gm daily (4) Diarrhea: - Check C. diff, stool culture - If neg can try Imodium Subjective Pt seen and examined. Doing about the same; no acute events. She got MRI of the T/L spine earlier today due to back pain (r/o infection, as she is also being tx for gram + sepsis with unclear source). Abd pain continues but is mild; no nausea, vomiting, abd distention, bloating. Tolerating some of her regular diet. Having several liquid brown BMs daily; no melena, hematochezia, fever. Liver serologies still pending. Review of Systems Constitutional: + fatigue and + anorexia; no fever and no chills Respiratory: + pain with rib fx Cardiovascular: + chest pain; no chest pain with activity, no dyspnea, no paroxysmal nocturnal dyspnea and no edema Gastrointestinal: as per Subjective / HPI Neurologic: + falls Endocrine: + T2DM Physical Exam Constitutional: WD/WN, vitals as above no acute distress Respiratory: normal respiratory effort, lungs clear to auscultation Cardiovascular: RRR, no murmur, no edema Rate/Rhythm: regular rate and regular rhythm Gastrointestinal (Abdomen): normal bowel sounds, soft, nontender, no hepatos plenomegaly Inspection/Auscultation: abdomen normal to inspection and normal bowel sounds; abdomen not distended Percussion/Palpation: abdomen soft; abdomen nontender Musculoskeletal: no cyanosis or clubbing, extremities motor strength 5/5 Skin: no rashes, warm and dry Neurologic: no focal motor deficits Psychiatric: A+Ox3, euthymic affect Results & Data Vital Signs (Past 12 Hours) Vital Signs Temp Pulse Pulse Resp BP BP BP 11/21/19 11:16 36.4 C L 123 H 20 95/61 L 11/21/19 07:32 95 H 11/21/19 07:00 36.8 C 78 18 99/78 L 11/21/19 04:32 36.6 C 97 H 14 105/66 11/21/19 04:05 37.2 C 96 H 14 94/59 L 11/21/19 03:50 36.7 C 92 H 14 94/61 L 11/21/19 03:30 36.6 C 94 H 16 93/60 L 11/21/19 03:08 36.7 C 96 H 18 94/60 L Pulse Ox 11/21/19 11:16 96 11/21/19 07:32 11/21/19 07:00 96 11/21/19 04:32 94 11/21/19 04:05 95 11/21/19 03:50 94 11/21/19 03:30 93 11/21/19 03:08 94 Laboratory Results 11/21/19 11/21/19 11/21/19 Range/Units 11:42 11:17 11:17 Hgb (12.0-16.0) g/dL Hct (37-47) % Sodium 132 L (136-145) mmol/L Potassium 4.4 D (3.5-5.1) mmol/L Chloride 102 (98-107) mmol/L Carbon Dioxide 22 (21-32) mmol/L Anion Gap 7.0 (3-11) BUN 10 (7-18) mg/dl Creatinine 0.77 (0.6-1.2) mg/dl Est Cr Clr Drug Dosing 68.2 ml/min Est GFR ( Amer) 95.9 Est GFR (Non-Af Amer) 82.8 BUN/Creatinine Ratio 12.4 (10-20) Glucose 84 (70-99) mg/dl POC Glucose 100 H (70-99) mg/dl Lactate (0.4-2.0) mmol/L Calcium 7.8 L (8.5-10.1) mg/dl Phosphorus 2.2 L (2.5-4.9) mg/dl Magnesium 2.0 (1.8-2.4) mg/dl Total Bilirubin (0.2-1) mg/dl AST (15-37) U/L ALT (12-78) U/L Alkaline Phosphatase (45-117) U/L Total Protein (6.4-8.2) gm/dl Albumin (3.4-5.0) gm/dl Globulin (2.5-4.0) gm/dl Albumin/Globulin Ratio (0.9-2) Sdvsk-1-Yebyptoalmn Ceruloplasmin TSH (0.300-4.500) uIu/ml Vancomycin Trough 11.3 (See Comment) mcg/ml Blood Type Antibody Screen Antigen Identification Crossmatch 11/21/19 11/21/19 11/21/19 Range/Units 11:17 11:17 07:28 Hgb 9.0 L (12.0-16.0) g/dL Hct 27.1 L (37-47) % Sodium (136-145) mmol/L Potassium (3.5-5.1) mmol/L Chloride (98-107) mmol/L Carbon Dioxide (21-32) mmol/L Anion Gap (3-11) BUN (7-18) mg/dl Creatinine (0.6-1.2) mg/dl Est Cr Clr Drug Dosing ml/min Est GFR ( Amer) Est GFR (Non-Af Amer) BUN/Creatinine Ratio (10-20) Glucose (70-99) mg/dl POC Glucose 89 (70-99) mg/dl Lactate (0.4-2.0) mmol/L Calcium (8.5-10.1) mg/dl Phosphorus (2.5-4.9) mg/dl Magnesium (1.8-2.4) mg/dl Total Bilirubin (0.2-1) mg/dl AST (15-37) U/L ALT (12-78) U/L Alkaline Phosphatase (45-117) U/L Total Protein (6.4-8.2) gm/dl Albumin (3.4-5.0) gm/dl Globulin (2.5-4.0) gm/dl Albumin/Globulin Ratio (0.9-2) Dupie-2-Vebcawpxlfz Pending Ceruloplasmin Pending TSH (0.300-4.500) uIu/ml Vancomycin Trough (See Comment) mcg/ml Blood Type Antibody Screen Antigen Identification Crossmatch 11/21/19 11/20/19 11/20/19 Range/Units 02:00 22:07 22:07 Hgb 7.0 L (12.0-16.0) g/dL Hct 20.9 L* (37-47) % Sodium (136-145) mmol/L Potassium (3.5-5.1) mmol/L Chloride (98-107) mmol/L Carbon Dioxide (21-32) mmol/L Anion Gap (3-11) BUN (7-18) mg/dl Creatinine (0.6-1.2) mg/dl Est Cr Clr Drug Dosing ml/min Est GFR ( Amer) Est GFR (Non-Af Amer) BUN/Creatinine Ratio (10-20) Glucose (70-99) mg/dl POC Glucose 87 (70-99) mg/dl Lactate (0.4-2.0) mmol/L Calcium (8.5-10.1) mg/dl Phosphorus (2.5-4.9) mg/dl Magnesium (1.8-2.4) mg/dl Total Bilirubin (0.2-1) mg/dl AST (15-37) U/L ALT (12-78) U/L Alkaline Phosphatase (45-117) U/L Total Protein (6.4-8.2) gm/dl Albumin (3.4-5.0) gm/dl Globulin (2.5-4.0) gm/dl Albumin/Globulin Ratio (0.9-2) Ahhpk-4-Kfedrppxxva Ceruloplasmin TSH (0.300-4.500) uIu/ml Vancomycin Trough (See Comment) mcg/ml Blood Type A Positive Antibody Screen NEGATIVE Antigen Identification c Antigen - NEGATIVE Crossmatch See Detail 11/20/19 11/20/19 11/20/19 Range/Units 22:07 22:07 20:14 Hgb (12.0-16.0) g/dL Hct (37-47) % Sodium 131 L (136-145) mmol/L Potassium 3.6 D (3.5-5.1) mmol/L Chloride 100 (98-107) mmol/L Carbon Dioxide 26 (21-32) mmol/L Anion Gap 5.0 (3-11) BUN 10 (7-18) mg/dl Creatinine 0.76 (0.6-1.2) mg/dl Est Cr Clr Drug Dosing 69.1 ml/min Est GFR ( Amer) 97.4 Est GFR (Non-Af Amer) 84.1 BUN/Creatinine Ratio 13.1 (10-20) Glucose 71 (70-99) mg/dl POC Glucose 86 (70-99) mg/dl Lactate 1.2 (0.4-2.0) mmol/L Calcium 7.3 L (8.5-10.1) mg/dl Phosphorus (2.5-4.9) mg/dl Magnesium 1.6 L (1.8-2.4) mg/dl Total Bilirubin 4.1 H (0.2-1) mg/dl AST 126 H (15-37) U/L ALT 55 (12-78) U/L Alkaline Phosphatase 144 H (45-117) U/L Total Protein 4.9 L (6.4-8.2) gm/dl Albumin 1.2 L (3.4-5.0) gm/dl Globulin 3.7 (2.5-4.0) gm/dl Albumin/Globulin Ratio 0.3 L (0.9-2) Lilrv-4-Uyfplmjypwq Ceruloplasmin TSH 4.340 (0.300-4.500) uIu/ml Vancomycin Trough (See Comment) mcg/ml Blood Type Antibody Screen Antigen Identification Crossmatch 11/20/19 11/20/19 Range/Units 16:45 14:56 Hgb 7.1 L (12.0-16.0) g/dL Hct 21.3 L (37-47) % Sodium (136-145) mmol/L Potassium (3.5-5.1) mmol/L Chloride (98-107) mmol/L Carbon Dioxide (21-32) mmol/L Anion Gap (3-11) BUN (7-18) mg/dl Creatinine (0.6-1.2) mg/dl Est Cr Clr Drug Dosing ml/min Est GFR ( Amer) Est GFR (Non-Af Amer) BUN/Creatinine Ratio (10-20) Glucose (70-99) mg/dl POC Glucose 87 (70-99) mg/dl Lactate (0.4-2.0) mmol/L Calcium (8.5-10.1) mg/dl Phosphorus (2.5-4.9) mg/dl Magnesium (1.8-2.4) mg/dl Total Bilirubin (0.2-1) mg/dl AST (15-37) U/L ALT (12-78) U/L Alkaline Phosphatase (45-117) U/L Total Protein (6.4-8.2) gm/dl Albumin (3.4-5.0) gm/dl Globulin (2.5-4.0) gm/dl Albumin/Globulin Ratio (0.9-2) Ttwdz-5-Wfhswjtzmjt Ceruloplasmin TSH (0.300-4.500) uIu/ml Vancomycin Trough (See Comment) mcg/ml Blood Type Antibody Screen Antigen Identification Crossmatch (1) Nausea & vomiting Vomiting Intractability: non-intractable Vomiting type: unspecified Qualified Code(s): R11.2 - Nausea with vomiting, unspecified
--- NOTE | 2019-11-21 16:08 | Surgery Progress Note ---
Date of Service November 21, 2019 Assessment & Plan (1) Pleural effusion, left: This 63-year-old active smoker and user of alcohol has a loculated left pleural effusion which is rather small. She history of broken ribs however she is a rather poor historian and did not see evidence on physical exam these are acute fractures. At any rate, I will follow along with x-rays to see how she does with this. This possibly would offer her a thoracoscopy. I would not tamp to drain this given the appearance on CT scan. They are small and loculated. If they do not resolve we may offer her a thoracoscopy. We discussed this fully with the patient. For details of this consultation please see Neri Lopez's full consult. Present on Admission?: Yes Results & Data Vital Signs (Past 12 Hours) Vital Signs Temp Pulse Pulse Resp BP BP BP 11/21/19 15:52 107 H 11/21/19 11:16 36.4 C L 123 H 20 95/61 L 11/21/19 07:32 95 H 11/21/19 07:00 36.8 C 78 18 99/78 L 11/21/19 04:32 36.6 C 97 H 14 105/66 Pulse Ox 11/21/19 15:52 11/21/19 11:16 96 11/21/19 07:32 11/21/19 07:00 96 11/21/19 04:32 94 PG Care Time/CCT Total # of Minutes Spent Total Time Spent with Patient: Total time spent is greater than 50% in coordination of care (as documented) at patient's floor/unit and/or counseling patient:
--- NOTE | 2019-11-21 16:39 | XRay Report ---
XR knee LT 3V HISTORY: 63 years-old Female Knee pain left-sided knee pain without reported trauma COMPARISON: None available TECHNIQUE: 3 views of the left knee FINDINGS: Demineralized appearance the bones. Moderate to severe medial and patellofemoral compartment with mil d lateral compartment osteoarthritis. No acute fracture or dislocation. Moderate joint effusion. Samantha rial calcifications noted. Mild anterior soft tissue swelling. IMPRESSION: 1. Soft tissue swelling without acute fracture or dislocation. 2. Tricompartmental osteoarthritis as above with moderate joint effusion. ACT 112: Negative or not required by law. The above report was generated using voice recognition software. It may contain grammatical, syntax o r spelling errors. Electronically signed by: Mitchell Nina M.D. 11/21/2019 4:38 PM
--- NOTE | 2019-11-21 19:55 | Hospitalist Progress Note ---
Date of Service November 21, 2019 Assessment & Plan (1) Hyperbilirubinemia: Patient is a 63 yr female who presents with nausea and vomiting for few days, frequent falls, generalized body ache Nausea/Vomiting Hyperbilirubinemia H/O RYGB with anastomotic ulcer --CT ABD:Displaced fractures of the posterior left 10th and 11th ribs, which are acute appearing. Small left pleural effusion new from prior. Minimal complexity suggested dependently while the majority of this effusion is water density. It is difficult to exclude a minimal hemothorax component. Left basilar atelectasis with mucous plugging. No evidence of acute intra-abdominal injury. [place]-en-Y gastric bypass without evidence of complication. Severe hepatic steatosis. --ABD USD:Surgically absent gallbladder. Hepatic steatosis. No significant ductal dilatation --Appreciate GI Input --Since CBD is nondilated, no plan for MRCP --Continue PPI, Carafate --Liver serological studies pending --Monitor LFTs --Chronic abdominal pain--with history of chronic marginal ulcer--May need possible revision of her RYGB. --We will advise patient to follow-up with bariatric surgeon upon discharge --poor appetite --Monitor LFTs --GI following Left loculated pleural effusion --MRI:No significant compromise of the spinal canal. Compromised exam due to patient motion. No evidence for compression deformity or bone marrow replacing process. Slightly complex left pleural effusion raising the possibility of a left hemothorax/left pleural effusion. --May need thoracoscopy --Appreciate CT surgery input Left Knee Joint Swelling: Knee X ray:Soft tissue swelling without acute fracture or dislocation. Tricompartmental osteoarthritis as above with moderate joint effusion. Orthopedics consulted Pain control Diarrhea Check stool for C. difficile We will start on Imodium as needed if C. difficile negative Hypotension:--Chronic Likely worsened due to dehydration on Florinef Monitor BP Electrolyte abnormalities: Hypokalemia/Hypomagnesemia/Hypophosphatemia Likely due to GI loses Replace electrolytes as needed Sepsis MRSA Bacteremia Unidentified source --MRI L spine:Limited study technically due to severe patient motion. Broad- based disc herniation L3-L4 with moderate narrowing of the spinal canal and mode rate to significant narrowing of the neural foramina bilaterally. Mild broad- based bulging disc L4-L5. --MRI T Spine:No significant compromise of the spinal canal. Compromised exam due to patient motion. No evidence for compression deformity or bone marrow replacing process. Slightly complex left pleural effusion raising the possibility of a left hemothorax/left pleural effusion. Blood Cx: MRSA ECHO: No visualized valvular disease IV Vancomycin changed to Daptomycin Appreciate ID Input Monitor CPK levels while on IV daptomycin DM II Last Hb A1C:5.4 Hypoglycemia noted ISS while hospitalized Monitor BGs Peptic ulcer disease Continue Nexium and sucralfate Recent pulmonary nodule. Follow up repeat CT scan as outpatient Alcoholism Denies any recent alcohol drink Continue thiamine, folic acid Counseled to quit completely H/O Falls Rib fractures secondary to fall Pain control Incentive Spirometry H/O Obesity H/O Gastric Bypass DVT Px: SCDs Code status: Full Code DISPOSITION: PT/OT prior to discharge Subjective Patient seen and examined at bedside Continues to have diarrhea Reports of no nausea, vomiting today States having dyspnea on exertion Complained of left knee swelling and pain especially with ambulation Has chronic abdominal pain Review of Systems Review of Systems: All systems reviewed & are unremarkable except as noted in HPI & below Physical Exam Physical Exam: Physical Exam: Vitals signs as noted above General Appearance:Thin, frail, No apparent distress Head: normocephalic, Atraumatic Eyes: normal inspection, EOMI Neck: supple, Trachea midline Respiratory/Chest: Decresed breath sounds, CTA Cardiovascular: S1, S2, No murmur Abdomen/GI:Soft, Mild generalized tender, Bowel sounds present Extremities/Musculoskelatal:normal inspection, Left Knee swelling/tender, No pedal edema Neurologic/Psych:AAOX3, grossly no focal neurological deficits Skin: normal color, warm Results & Data Vital Signs (Past 12 Hours) Vital Signs Temp Pulse Pulse Resp BP Pulse Ox 11/21/19 19:00 36.3 C L 91 H 18 97/62 L 97 11/21/19 15:52 107 H 11/21/19 11:16 36.4 C L 123 H 20 95/61 L 96 Laboratory Results Short CBC 11/20/19 11/21/19 11/21/19 Range/Units 22:07 11:17 15:50 Hgb 7.0 L 9.0 L 8.0 L (12.0-16.0) g/dL Hct 20.9 L* 27.1 L 24.0 L (37-47) % BMP 11/20/19 11/21/19 22:07 11:17 Sodium 131 L 132 L Potassium 3.6 D 4.4 D Chloride 100 102 Carbon Dioxide 26 22 BUN 10 10 Creatinine 0.76 0.77 Glucose 71 84 Calcium 7.3 L 7.8 L Liver Function 11/20/19 Range/Units 22:07 Total Bilirubin 4.1 H (0.2-1) mg/dl AST 126 H (15-37) U/L ALT 55 (12-78) U/L Alkaline Phosphatase 144 H (45-117) U/L Albumin 1.2 L (3.4-5.0) gm/dl
[2019-11-21] MEDS: NORTRIPTYLINE HCL 25 MG CAP PO SCH (21:12)
[2019-11-22] MEDS: LEVOTHYROXINE SODIUM 25 MCG TABLET PO SCH (05:47)
[2019-11-22] MEDS: OXYCODONE HCL IR 5 MG TAB (IMMEDIATE RELEASE) PO PRN ×3 (05:47→21:14)
[2019-11-22 06:38] LABS: Hematocrit (blood only) 24.6 % (37-47); Hemoglobin 8.5 g/dL (12.0-16.0)
[2019-11-22 07:02] LABS: BUN Creatinine Ratio 11.6 (10-20); Calcium 7.5 mg/dl (8.5-10.1); Creatinine Clr Calc Pharmacy 63.2 ml/min; Est GFR (African American) 87.6; Est GFR (Non-African American) 75.6; Magnesium 1.9 mg/dl (1.8-2.4); Potassium 4.1 mmol/L (3.5-5.1)
[2019-11-22] MEDS ORDERED: SODIUM PHOSPHATE 3 MMOL/1 ML INFUSION IV STA (08:24)
[2019-11-22] MEDS ORDERED: SODIUM CHLORIDE 0.9% 1000ML 1,000 ML IV ONE (08:25)
--- NOTE | 2019-11-22 08:32 | Surgery Progress Note ---
Date of Service November 22, 2019 Assessment & Plan (1) Pleural effusion, left: We will check a chest x-ray tomorrow morning. I discussed this with the patient explained that it is possible we would offer her a thoracoscopy. She understands. Present on Admission?: Yes Subjective Patient has no real complaints. She sitting up eating breakfast in a chair. She states that her knee hurts her more than anything. She denies shortness of breath. She really is not having much in the way of pain in her left chest. Physical Exam Physical Exam: He is awake and alert. She has mildly decreased breath sounds in the left base. Results & Data Vital Signs (Past 12 Hours) Vital Signs Temp Pulse Pulse Resp BP Pulse Ox 11/22/19 07:58 36.4 C L 113 H 20 90/59 L 93 11/22/19 07:40 95 H 11/22/19 04:00 37 C 96 H 20 108/69 94 11/22/19 00:00 92 H 11/21/19 23:00 36.9 C 95 H 20 107/70 97 PG Care Time/CCT Total # of Minutes Spent Total Time Spent with Patient: Total time spent is greater than 50% in coordination of care (as documented) at patient's floor/unit and/or counseling patient:
[2019-11-22] MEDS: DULOXETINE HCL 30 MG CAP PO SCH ×2 (08:43→21:16)
[2019-11-22] MEDS: SUCRALFATE 1 GM TAB PO SCH ×4 (08:43→21:15)
[2019-11-22] MEDS: FOLIC ACID 1 MG TAB PO SCH (08:44)
[2019-11-22] MEDS: FLUDROCORTISONE ACETATE 0.1 MG TAB PO SCH (08:44)
[2019-11-22] MEDS: PANTOprazole 40 MG TAB PO SCH (08:44)
[2019-11-22] MEDS: miSOPROStoL 100 MCG TAB PO SCH ×4 (08:44→21:15)
[2019-11-22] MEDS: GABAPENTIN 300 MG CAP PO SCH ×3 (08:44→21:16)
[2019-11-22] MEDS: THIAMINE HCL 100 MG TAB PO SCH (08:45)
[2019-11-22] MEDS: MAGNESIUM CHLORIDE 64MG DELAYED REL TAB PO SCH ×2 (08:45→21:18)
[2019-11-22] MEDS: CYANOCOBALAMIN 500 MCG TABLET (VITAMIN B-12) PO SCH (08:45)
[2019-11-22] MEDS ORDERED: SODIUM PHOSPHATE 15 MMOL in SODIUM CHLORIDE 0.9% 250 ML IV ONE (09:00)
[2019-11-22] MEDS: INSULIN ASPART 100 UNITS/ML 3 ML PEN SC SCH ×4 (09:09→22:35)
[2019-11-22] MEDS: DAPTOmycin 450 MG in SYRINGE 0 ML IV SCH (09:42)
[2019-11-22] MEDS ORDERED: ETHYL CHLORIDE AER PER SPRAY 100 ML CAN EXT ONE (10:16)
[2019-11-22] MEDS ORDERED: BUPIVACAINE 0.25% 30 ML VIAL INFIL ONE (10:16)
[2019-11-22] MEDS ORDERED: methylPREDNISolone acetate 80 MG/ML VIAL IA ONE (10:16)
--- NOTE | 2019-11-22 11:20 | Orthopedic Consultation ---
Date of Consultation November 22, 2019 Assessment & Plan (1) Knee effusion, left: Due to patient's bacteremia positive for MRSA, I have indicated the patient for arthrocentesis to the left knee. The risk benefits complications alternatives to the procedure were explained to the patient in detail these include however not limited to infections, injury to surrounding nerves, bone, vessels, soft tissue, arthrofibrosis, chronic pain, need for surgery, loss of limb and loss of life. Alternatives include no aspiration which could result in worsening symptoms. The patient wished to proceed with arthrocentesis of the left knee and informed consent was obtained. 46 cc of a straw turbid colored fluid was aspirated and sent for analysis including cell count with differential, crystals, and aerobic anaerobic cultures and Gram stain. We will follow-up those results once available. Continue with ice and elevation and pain control. Thank you for the consultation. Differential includes arthritic flare, septic arthritis, gout History of Present Illness Reason for Consultation: Left knee pain/swelling Attending Physician: Tobias Allen MD History of Present Illness The patient is a 63-year-old female with significant past medical history for hypertension, HLD, diabetes type 2, bariatric surgery, peptic ulcer disease, alcohol and tobacco abuse, mood disorder, chronic iron deficiency anemia who was admitted to [facility] secondary to ongoing complaints for nausea and vomiting. Patient blood cultures were positive for MRSA. We were consulted for 1 day history for new onset of left knee pain. Patient reports arthroscopic surgery to her left knee, poor historian, unsure of when, at least 10 years prior she reports, unsure of surgeon, it was performed here in [place]. She reports no new trauma to the left knee. Intermittent pain. Previous corticosteroid injection" years ago". Denies any numbness or tingling to her left lower extremity. Denies history for gout. Currently denies fevers, chills, nausea, vomiting, shortness of breath or chest pain. Allergies Allergy/AdvReac Type Severity Reaction Status Date / Time Sulfa (Sulfonamide Allergy Severe FACE/THROAT Verified 11/17/19 02:12 Antibiotics) SWELL UP Home Medications Home Medications Medication Instructions Recorded Confirmed Type cyanocobalamin (vitamin B-12) 500 mcg PO DAILY 08/16/19 11/17/19 History [Vitamin B-12] esomeprazole magnesium [Nexium] 40 mg PO DAILY 08/16/19 11/17/19 History folic acid 1 mg PO DAILY 08/16/19 11/17/19 History misoprostol [Cytotec] 100 mcg PO QID 08/16/19 11/17/19 History thiamine HCl (vitamin B1) [Vitamin 100 mg PO QAM #30 tab 08/22/19 11/17/19 Rx B-1] meclizine 25 mg PO Q8H PRN #30 tab 09/29/19 11/17/19 Rx duloxetine 30 mg PO BID 11/17/19 11/17/19 History fludrocortisone 0.1 mg PO DAILY 11/17/19 11/17/19 History gabapentin 300 mg PO TID 11/17/19 11/17/19 History levothyroxine 25 mcg PO DAILY 11/17/19 11/17/19 History nortriptyline 25 mg PO HS 11/17/19 11/17/19 History sucralfate 1 g PO ACHS 11/17/19 11/17/19 History Patient History Medical History Acute alcohol abuse (Chronic) Alcohol abuse Anemia, iron deficiency (Chronic) Arthritis (Chronic) Bacteremia DVT prophylaxis Esophagus disorder Gram positive sepsis Hypokalemia Small bowel obstruction (Resolved) Ulcer GI Surgical History History of incision and drainage (08/18/19) Left Axillary Abscess Incision and Drainage Dr. Perdue 08/18/19 Status post appendectomy (Chronic) Status post cholecystectomy (Chronic) Status post gastric bypass for obesity (Chronic) Status post hysterectomy (Chronic) Family History Other No pertinent family history in first degree relatives Social History Preferred Language: Georgian Communication Ability: Effective Research Methods Instructor Required: No Beliefs That Will Affect Care: None marital status: Current Living Situation: Other Current Living Situation Comment: Friend Feels Safe at Home: Yes Safety Concerns: Feels Safe At This Time Smoking Status: Former smoker Tobacco Type: cigarettes ; Second Hand Exposure: Yes ; Hx Alcohol Use: Yes Alcohol type: beer and hard liquor Hx Substance Use: No Review of Systems Review of Systems: All systems reviewed & are unremarkable except as noted in HPI & below Constitutional: as per Subjective / HPI Physical Exam Physical Exam: LLE NVSI +EHL/FHL/TA/GS SILT grossly, +2 DP pulse, compartments soft NT, limited painful range of motion 15 to 90 degrees, no erythema or edema, large effusion to the left knee. Skin temperature normal to touch. Constitutional: WD/WN, vitals as above Results & Data Vital Signs (Past 12 Hours) Vital Signs Temp Pulse Pulse Resp BP Pulse Ox 11/22/19 07:58 36.4 C L 113 H 20 90/59 L 93 11/22/19 07:40 95 H 11/22/19 04:00 37 C 96 H 20 108/69 94 11/22/19 00:00 92 H Laboratory Results 11/22/19 11/22/19 11/22/19 Range/Units 11:40 11:19 11:19 Hgb (12.0-16.0) g/dL Hct (37-47) % Sodium (136-145) mmol/L Potassium (3.5-5.1) mmol/L Chloride (98-107) mmol/L Carbon Dioxide (21-32) mmol/L Anion Gap (3-11) BUN (7-18) mg/dl Creatinine (0.6-1.2) mg/dl Est Cr Clr Drug Dosing ml/min Est GFR ( Amer) Est GFR (Non-Af Amer) BUN/Creatinine Ratio (10-20) Glucose (70-99) mg/dl POC Glucose 121 H (70-99) mg/dl Calcium (8.5-10.1) mg/dl Phosphorus (2.5-4.9) mg/dl Magnesium (1.8-2.4) mg/dl Synovial Source KNEE Synovial Color YELLOW Synovial Appearance CLOUDY Synovial WBC 63952 H (0-200) /uL Synovial RBC 42381 /uL Synovial Polynuclear % 88.0 % Synovial Mononuclear % 12.0 % Synovial Crystals Pending Antibody Screen Crossmatch 11/22/19 11/22/19 11/22/19 Range/Units 07:41 06:08 06:08 Hgb 8.5 L (12.0-16.0) g/dL Hct 24.6 L (37-47) % Sodium 131 L (136-145) mmol/L Potassium 4.1 (3.5-5.1) mmol/L Chloride 101 (98-107) mmol/L Carbon Dioxide 24 (21-32) mmol/L Anion Gap 6.0 (3-11) BUN 10 (7-18) mg/dl Creatinine 0.83 (0.6-1.2) mg/dl Est Cr Clr Drug Dosing 63.2 ml/min Est GFR ( Amer) 87.6 Est GFR (Non-Af Amer) 75.6 BUN/Creatinine Ratio 11.6 (10-20) Glucose 84 (70-99) mg/dl POC Glucose 95 (70-99) mg/dl Calcium 7.5 L (8.5-10.1) mg/dl Phosphorus 2.0 L (2.5-4.9) mg/dl Magnesium 1.9 (1.8-2.4) mg/dl Synovial Source Synovial Color Synovial Appearance Synovial WBC (0-200) /uL Synovial RBC /uL Synovial Polynuclear % % Synovial Mononuclear % % Synovial Crystals Antibody Screen Crossmatch 11/21/19 11/21/19 11/21/19 Range/Units 20:00 16:23 15:50 Hgb 8.0 L (12.0-16.0) g/dL Hct 24.0 L (37-47) % Sodium (136-145) mmol/L Potassium (3.5-5.1) mmol/L Chloride (98-107) mmol/L Carbon Dioxide (21-32) mmol/L Anion Gap (3-11) BUN (7-18) mg/dl Creatinine (0.6-1.2) mg/dl Est Cr Clr Drug Dosing ml/min Est GFR ( Amer) Est GFR (Non-Af Amer) BUN/Creatinine Ratio (10-20) Glucose (70-99) mg/dl POC Glucose 117 H 98 (70-99) mg/dl Calcium (8.5-10.1) mg/dl Phosphorus (2.5-4.9) mg/dl Magnesium (1.8-2.4) mg/dl Synovial Source Synovial Color Synovial Appearance Synovial WBC (0-200) /uL Synovial RBC /uL Synovial Polynuclear % % Synovial Mononuclear % % Synovial Crystals Antibody Screen Crossmatch 11/20/19 Range/Units 22:07 Hgb (12.0-16.0) g/dL Hct (37-47) % Sodium (136-145) mmol/L Potassium (3.5-5.1) mmol/L Chloride (98-107) mmol/L Carbon Dioxide (21-32) mmol/L Anion Gap (3-11) BUN (7-18) mg/dl Creatinine (0.6-1.2) mg/dl Est Cr Clr Drug Dosing ml/min Est GFR ( Amer) Est GFR (Non-Af Amer) BUN/Creatinine Ratio (10-20) Glucose (70-99) mg/dl POC Glucose (70-99) mg/dl Calcium (8.5-10.1) mg/dl Phosphorus (2.5-4.9) mg/dl Magnesium (1.8-2.4) mg/dl Synovial Source Synovial Color Synovial Appearance Synovial WBC (0-200) /uL Synovial RBC /uL Synovial Polynuclear % % Synovial Mononuclear % % Synovial Crystals Antibody Screen NEGATIVE Crossmatch See Detail Diagnostic Findings XR knee LT 3V HISTORY: 63 years-old Female Knee pain left-sided knee pain without reported trauma COMPARISON: None available TECHNIQUE: 3 views of the left knee FINDINGS: Demineralized appearance the bones. Moderate to severe medial and patellofemoral compartment with mild lateral compartment osteoarthritis. No acute fracture or dislocation. Moderate joint effusion. Arterial calcifications noted. Mild anterior soft tissue swelling. IMPRESSION: 1. Soft tissue swelling without acute fracture or dislocation. 2. Tricompartmental osteoarthritis as above with moderate joint effusion.
--- NOTE | 2019-11-22 11:31 | Procedure Note ---
Procedure Note Date of Service November 22, 2019 Note The patient's left knee was prepped with a combination of Betadine and alcohol. Utilizing sterile techniques, 18 gauge needle and 60cc syringe, an anterolateral arthrocentesis was performed. 46 cc of turbid synovial fluid was collected. 4x4's and doc wrap were applied to the knee. The patient tolerated the procedure well. Coding
[2019-11-22 12:00] LABS: Appearance Synovial Fluid CLOUDY; Color Synovial Fluid YELLOW; RBC Synovial Fluid (A) 19000 /uL; Source Synovial Fluid KNEE; WBC Synovial Fluid (A) 78084 /uL (0-200)
--- NOTE | 2019-11-22 18:36 | Hospitalist Progress Note ---
Date of Service November 22, 2019 Assessment & Plan (1) Hyperbilirubinemia: Patient is a 63 yr female who presents with nausea and vomiting for few days, frequent falls, generalized body ache Nausea/Vomiting Hyperbilirubinemia H/O RYGB with anastomotic ulcer --CT ABD:Displaced fractures of the posterior left 10th and 11th ribs, which are acute appearing. Small left pleural effusion new from prior. Minimal complexity suggested dependently while the majority of this effusion is water density. It is difficult to exclude a minimal hemothorax component. Left basilar atelectasis with mucous plugging. No evidence of acute intra-abdominal injury. [place]-en-Y gastric bypass without evidence of complication. Severe hepatic steatosis. --ABD USD:Surgically absent gallbladder. Hepatic steatosis. No significant ductal dilatation --Appreciate GI Input --Since CBD is nondilated, no plan for MRCP --Continue PPI, Carafate --Liver serological studies pending --Monitor LFTs --Chronic abdominal pain--with history of chronic marginal ulcer--May need possible revision of her RYGB. --Patient to follow-up with bariatric surgeon upon discharge --Continue to have poor appetite --Monitor LFTs --Gentle IV fluids --Continue current manage --No nausea, vomiting today Sepsis MRSA Bacteremia ? Left knee septic arthritis --MRI L spine:Limited study technically due to severe patient motion. Broad- based disc herniation L3-L4 with moderate narrowing of the spinal canal and moderate to significant narrowing of the neural foramina bilaterally. Mild broad-based bulging disc L4-L5. --MRI T Spine:No significant compromise of the spinal canal. Compromised exam due to patient motion. No evidence for compression deformity or bone marrow replacing process. Slightly complex left pleural effusion raising the possibility of a left hemothorax/left pleural effusion. Blood Cx: MRSA ECHO: No visualized valvular disease Follow-up synovial fluid culture IV Vancomycin changed to Daptomycin Appreciate ID Input Monitor CPK levels while on IV daptomycin Left loculated pleural effusion --MRI:No significant compromise of the spinal canal. Compromised exam due to patient motion. No evidence for compression deformity or bone marrow replacing process. Slightly complex left pleural effusion raising the possibility of a left hemothorax/left pleural effusion. --May need thoracoscopy --Appreciate CT surgery input Left Knee Joint Swelling:? Source of Bactermia Knee X ray:Soft tissue swelling without acute fracture or dislocation. Tricompartmental osteoarthritis as above with moderate joint effusion. S/P left knee arthrocentesis on 11/22/19 Follow-up synovial fluid studies Appreciate orthopedics input Planned for arthroscopy and I&D of L knee tomorrow Pain control NPO after midnight Diarrhea Check stool for C. difficile We will start on Imodium as needed if C. difficile negative No diarrhea today Hypotension:--Chronic Likely worsened due to dehydration on Florinef Monitor BP Electrolyte abnormalities: Hypokalemia/Hypomagnesemia/Hypophosphatemia Likely due to GI loses Replace electrolytes as needed DM II Last Hb A1C:5.4 Hypoglycemia noted ISS while hospitalized Monitor BGs Peptic ulcer disease Continue Nexium and sucralfate Recent pulmonary nodule. Follow up repeat CT scan as outpatient Alcoholism Denies any recent alcohol drink Continue thiamine, folic acid Counseled to quit completely H/O Falls Rib fractures secondary to fall Pain control Incentive Spirometry H/O Obesity H/O Gastric Bypass DVT Px: SCDs Code status: Full Code DISPOSITION: PT/OT prior to discharge Subjective Patient is seen and examined at bedside Reports headache today No nausea, vomiting, diarrhea today Left knee aspirated by Ortho Plan for I&D of left knee tomorrow Has chronic abdominal pain Review of Systems Review of Systems: All systems reviewed & are unremarkable except as noted in HPI & below Physical Exam Physical Exam: Physical Exam: Vitals signs as noted above General Appearance:Thin, frail, No apparent distress Head: normocephalic, Atraumatic Eyes: normal inspection, EOMI Neck: supple, Trachea midline Respiratory/Chest: Decresed breath sounds, CTA Cardiovascular: S1, S2, No murmur Abdomen/GI:Soft, Mild generalized tender, Bowel sounds present Extremities/Musculoskelatal:normal inspection, Left Knee swelling/tender, No pedal edema Neurologic/Psych:AAOX3, grossly no focal neurological deficits Skin: normal color, warm Results & Data Vital Signs (Past 12 Hours) Vital Signs Temp Pulse Pulse Resp BP Pulse Ox 11/22/19 15:35 37.1 C 91 H 20 107/71 93 11/22/19 11:23 36.6 C 90 18 110/65 98 11/22/19 07:58 36.4 C L 113 H 20 90/59 L 93 11/22/19 07:40 95 H Laboratory Results Short CBC 11/22/19 Range/Units 06:08 Hgb 8.5 L (12.0-16.0) g/dL Hct 24.6 L (37-47) % BMP 11/22/19 06:08 Sodium 131 L Potassium 4.1 Chloride 101 Carbon Dioxide 24 BUN 10 Creatinine 0.83 Glucose 84 Calcium 7.5 L
[2019-11-22 20:33] LABS: Appearance Urine Cloudy (Clear); Bacteria Urine Automated 2+ (Negative); Blood Urine Trace (Negative); Color Urine Orange; Epithelial Cell Urine Auto >30 /lpf (0-5); Glucose Urine UA Negative (Negative); Ketones Urine Trace (Negative); Leukocyte Esterase Urine 2+ (Negative); Nitrite Urine Positive (Negative); Protein Urine Trace (Negative); Specific Gravity Urine 1.017 (1.000-1.030); Urobilinogen Urine Negative (Negative)
[2019-11-22 20:46] LABS: Bilirubin Urine 2+ (Negative)
[2019-11-22 20:48] LABS: Ictotest Urine Positive (Negative)
[2019-11-22 20:56] LABS: Mucus Urine Present (None Prsent); RBC Urine Automated 0-4 /hpf (0-4)
[2019-11-22] MEDS: NORTRIPTYLINE HCL 25 MG CAP PO SCH (21:15)
[2019-11-23] MEDS: cefTRIAXone SODIUM 1,000 MG in DEXTROSE 5% 50 ML IV SCH (00:23)
[2019-11-23] MEDS: LEVOTHYROXINE SODIUM 25 MCG TABLET PO SCH (06:40)
[2019-11-23 07:14] LABS: Hematocrit (blood only) 23.3 % (37-47); Hemoglobin 7.7 g/dL (12.0-16.0)
--- NOTE | 2019-11-23 07:41 | XRay Report ---
XR chest 1V portable CLINICAL HISTORY: 63 years-old Female presenting with left pleural effusion. TECHNIQUE: Portable upright AP view of the chest was obtained. COMPARISON: 11/17/2019. FINDINGS: The left heart border is now completely. Due to development of a large left pleural effusion, which c ompletely obscures the left hemithorax. Previously there was only a small left pleural effusion. Fara eration of the left lung. Right lung grossly clear though there may be mild congestive change. No pne umothorax. POSTERIOR right rib fractures noted. Acute or not subacute left posterior 10th rib fractur e better seen on prior CT. External leads project over the epigastrium degrading evaluation. IMPRESSION: 1. Large left pleural effusion with complete opacification of the left hemithorax and nonaeration of the left lung. 2. Congestive changes in the right lung. ACT 112: Negative or not required by law. Electronically signed by: Eric Verduzco M.D. 11/23/2019 7:40 AM
[2019-11-23 07:49] LABS: BUN Creatinine Ratio 9.4 (10-20); C Reactive Protein 8.87 mg/dl (0-0.29); Calcium 7.2 mg/dl (8.5-10.1); Creatinine Clr Calc Pharmacy 71.9 ml/min; Est GFR (African American) 102.3; Est GFR (Non-African American) 88.3; Magnesium 1.7 mg/dl (1.8-2.4); Phosphorus 2.5 mg/dl (2.5-4.9)
--- NOTE | 2019-11-23 07:49 | Infectious Disease Progress Nt ---
Date of Service November 23, 2019 Assessment & Plan (1) Gram positive sepsis: continue dapto, 11/20 culture now + will repeat x 2, will follow., unclear source - MRI spine negative. agree that knee is likely infected, unclear if source or if seeded due to prolonged bsi. will continue dapto for now. ortho following, suspect knee culture will grow MRSA as well. will need prolonged course of IV abx, range of 6 weeks, will need weekly cbc,cmp, esr, cpk while on abx. Subjective pt still with + blood culture, now 11/20 + gpc as well. remains on dapto, afebrile MRI l/t spine negative for osteo. left knee swelling, ortho eval, aspirated [place] [address]24 wbc, 88%N, culture pending but few gpc on gram stain. now on ctx as well. urine culture pending. am labs pending, afebrile. Results & Data Vital Signs (Past 12 Hours) Vital Signs Temp Pulse Pulse Resp BP Pulse Ox 11/23/19 06:41 18 96 11/23/19 04:23 36.6 C 78 20 109/62 94 11/23/19 00:00 97 H 11/22/19 23:46 36.6 C 101 H 20 107/67 95 Laboratory Results Microbiology 11/18/19 05:55 Blood Aerobic Blood Culture - Preliminary Staph aureus MRSA 11/18/19 05:55 Blood Anaerobic Blood Culture - Final No growth in Anaerobic bottle after 5 days. 11/18/19 06:04 Blood Aerobic Blood Culture - Preliminary Staph aureus MRSA 11/18/19 06:04 Blood Anaerobic Blood Culture - Final No growth in Anaerobic bottle after 5 days. 11/20/19 11:14 Blood Aerobic Blood Culture - Preliminary Gram positive cocci clusters 11/20/19 11:14 Blood Anaerobic Blood Culture - Preliminary No growth in Anaerobic bottle after 48 hours. 11/20/19 11:02 Blood Aerobic Blood Culture - Preliminary Gram positive cocci clusters 11/20/19 11:02 Blood Anaerobic Blood Culture - Preliminary No growth in Anaerobic bottle after 48 hours. 11/22/19 11:19 Knee,Left Gram Stain - Final 11/17/19 02:33 Blood Aerobic Blood Culture - Final No growth in Aerobic bottle after 5 days. 11/17/19 02:33 Blood Anaerobic Blood Culture - Preliminary Staph aureus MRSA 11/17/19 02:36 Blood Aerobic Blood Culture - Final No growth in Aerobic bottle after 5 days. 11/17/19 02:36 Blood Anaerobic Blood Culture - Preliminary Staph aureus MRSA 11/19/19 11:33 Blood Aerobic Blood Culture - Preliminary Staph aureus MRSA 11/19/19 11:33 Blood Anaerobic Blood Culture - Preliminary No growth in Anaerobic bottle after 48 hours. 11/19/19 11:33 Blood Aerobic Blood Culture - Preliminary Staph aureus MRSA 11/19/19 11:33 Blood Anaerobic Blood Culture - Preliminary No growth in Anaerobic bottle after 48 hours. PG Care Time/CCT Total # of Minutes Spent Total Time Spent with Patient: Total time spent is greater than 50% in coordination of care (as documented) at patient's floor/unit and/or counseling patient:
[2019-11-23] MEDS ORDERED: FUROSEMIDE 20 MG in SYRINGE 0 ML IV ONE (08:30)
[2019-11-23] MEDS: SUCRALFATE 1 GM TAB PO SCH ×4 (08:36→21:13)
--- NOTE | 2019-11-23 08:36 | Surgery Progress Note ---
Date of Service November 23, 2019 Assessment & Plan (1) Pleural effusion, left: Present on Admission?: No (2) Gram positive sepsis: Present on Admission?: Yes (3) Left rib fracture: This is an interesting case. She has a septic left knee. She was noted to have gram-positive cocci on fluid aspirated by Dr. Rodriguez yesterday. He had plan on doing an arthroscopy with washing out of her left knee today however, her chest x-ray was reviewed today and she has complete opacification of the left side. She had a loculated effusion with a left rib fracture on CT scan few days ago. This is worsened. Her hemoglobin has been low but has not really dropped precipitously. Had a long talk with the patient. Also discussed this with the operating room and with Dr. Rodriguez. We can cancel this arthroscopy t roger. I will discuss this with infectious disease and have a call out to Dr. Lofton. I think this patient needs a left thoracoscopy. She had a loculated effusion in her base a few days ago. I do not think a simple thoracentesis is going to help her. We will clean her out tomorrow. I went back and reviewed her echocardiogram she does not have vegetations but she has had multiple positive blood cultures. I do not have a good explanation from this. I do not think this process started in the chest. I also do not think it started in her knee. It appears to me she may have an endocarditis and I will discuss repeating her echocardiogram. Present on Admission?: Yes Subjective Patient states she "feels about the same". Saturations are 95% on 2 L. She has a pretty good cough although she is not bringing very much up. Physical Exam Physical Exam: Markedly decreased breath sounds on the left side she had some upper airway rhonchi. She has no wheezing. Her abdomen is soft. She has a compressive wrap around her left knee. Results & Data Vital Signs (Past 12 Hours) Vital Signs Temp Pulse Pulse Resp BP Pulse Ox 11/23/19 07:48 36.6 C 95 H 16 107/64 95 11/23/19 06:41 18 96 11/23/19 04:23 36.6 C 78 20 109/62 94 11/23/19 00:00 97 H 11/22/19 23:46 36.6 C 101 H 20 107/67 95 PG Care Time/CCT Total # of Minutes Spent Total Time Spent with Patient: Total time spent is greater than 50% in coordination of care (as documented) at patient's floor/unit and/or counseling patient: (1) Left rib fracture Encounter type: initial encounter Fracture type: closed Rib fracture type: multiple ribs Qualified Code(s): S22.42XA - Multiple fractures of ribs, left side, initial encounter for closed fracture
[2019-11-23] MEDS: MAGNESIUM CHLORIDE 64MG DELAYED REL TAB PO SCH ×2 (08:37→21:15)
[2019-11-23] MEDS: DULOXETINE HCL 30 MG CAP PO SCH ×2 (08:37→21:12)
[2019-11-23] MEDS: CYANOCOBALAMIN 500 MCG TABLET (VITAMIN B-12) PO SCH (08:38)
[2019-11-23] MEDS: THIAMINE HCL 100 MG TAB PO SCH (08:38)
[2019-11-23] MEDS: FLUDROCORTISONE ACETATE 0.1 MG TAB PO SCH (08:38)
[2019-11-23] MEDS: FOLIC ACID 1 MG TAB PO SCH (08:39)
[2019-11-23] MEDS: PANTOprazole 40 MG TAB PO SCH (08:39)
[2019-11-23] MEDS: GABAPENTIN 300 MG CAP PO SCH ×3 (08:39→21:14)
[2019-11-23] MEDS: miSOPROStoL 100 MCG TAB PO SCH ×4 (08:40→21:13)
[2019-11-23] MEDS: INSULIN ASPART 100 UNITS/ML 3 ML PEN SC SCH ×4 (09:20→22:27)
[2019-11-23] MEDS: DAPTOmycin 450 MG in SYRINGE 0 ML IV SCH (10:37)
[2019-11-23] MEDS: OXYCODONE HCL IR 5 MG TAB (IMMEDIATE RELEASE) PO PRN ×3 (10:37→21:10)
--- NOTE | 2019-11-23 11:06 | Anesthesiology Consultation ---
Date of Service November 23, 2019 Patient admitted with nausea and vomiting. Patient has a hx of RYGBP and ulcers. N/V improving since admission. Acute on chronic elevation of LFTs noted. She also was found to have staph bacteremia, now on antibiotics. L knee septic arthritis was evaluated by orthopedic surgery and planned for i&d. This was however postponed due to complete opacification of the L lung, and she was instead scheduled for VATS to break up and drain loculated pleural effusion. She has a history of chronic ETOH abuse and multiple falls and has several displaced rib fractures this visit. Cardiac workup revealed a normal echo, normal valves, with no obvious endocarditis noted on the TTE. Assessment & Plan (1) Encounter for pre-operative examination: Chart Review Chart Review: Acceptable Risk for Surgery and Patient NOT seen in Pre Admission Testing Consults Requested none History Surgery Operation Date: 11/23/19 09:00 Proposed Procedures p Left Knee Arthroscopic I&D - Wilmer Rodriguez, Height/Weight Height: 5 ft 5 in Weight: 66.5 kg Allergies Allergy/AdvReac Type Severity Reaction Status Date / Time Sulfa (Sulfonamide Allergy Severe FACE/THROAT Verified 11/17/19 02:12 Antibiotics) SWELL UP Medications Home Medications Medication Instructions Recorded Confirmed Last Taken cyanocobalamin (vitamin B-12) 500 mcg PO DAILY 08/16/19 11/17/19 11/12/19 [Vitamin B-12] esomeprazole magnesium [Nexium] 40 mg PO DAILY 08/16/19 11/17/19 11/12/19 folic acid 1 mg PO DAILY 08/16/19 11/17/19 11/12/19 misoprostol [Cytotec] 100 mcg PO QID 08/16/19 11/17/19 11/12/19 thiamine HCl (vitamin B1) [Vitamin 100 mg PO QAM #30 tab 08/22/19 11/17/19 11/12/19 B-1] meclizine 25 mg PO Q8H PRN #30 tab 09/29/19 11/17/19 Unknown duloxetine 30 mg PO BID 11/17/19 11/17/19 Unknown fludrocortisone 0.1 mg PO DAILY 11/17/19 11/17/19 Unknown gabapentin 300 mg PO TID 11/17/19 11/17/19 Unknown levothyroxine 25 mcg PO DAILY 11/17/19 11/17/19 11/12/19 nortriptyline 25 mg PO HS 11/17/19 11/17/19 Unknown sucralfate 1 g PO ACHS 11/17/19 11/17/19 Unknown Active Medications Generic Name Dose Route Start Last Admin Trade Name Freq PRN Reason Stop Dose Admin Cyanocobalamin 500 mcg 11/17/19 09:00 11/23/19 08:38 Vitamin B-12 PO 12/17/19 08:59 500 mcg DAILY BABAK Administration Duloxetine HCl 30 mg 11/17/19 09:00 11/23/19 08:37 Cymbalta PO 12/17/19 08:59 30 mg BID BABAK Administration Fludrocortisone Acetate 0.1 mg 11/17/19 09:00 11/23/19 08:38 Florinef PO 12/17/19 08:59 0.1 mg DAILY BABAK Administration Folic Acid 1 mg 11/17/19 09:00 11/23/19 08:39 Folvite PO 12/17/19 08:59 1 mg DAILY BABAK Administration Gabapentin 300 mg 11/17/19 09:00 11/23/19 08:39 Neurontin PO 12/17/19 08:59 300 mg TID BABAK Administration Promethazine HCl 12.5 mg/ 50.5 mls @ 202 mls/hr 11/17/19 06:22 11/19/19 12:50 Sodium Chloride IV 12/17/19 06:21 Infused Q6H PRN Infusion Nausea And Vomiting Daptomycin 450 mg/ Syringe 9 mls @ 4.5 mls/min 11/20/19 10:45 11/23/19 10:37 IV 12/04/19 10:44 4.5 mls/min Q24H BABAK Administration Protocol Ceftriaxone Sodium 1,000 mg/ 50 mls @ 100 mls/hr 11/23/19 00:00 11/23/19 01:24 Dextrose IV 12/03/19 00:00 Infused Q24H BABAK Infusion Protocol Insulin Aspart 0 units 11/17/19 21:00 11/23/19 09:20 Novolog Flexpen SC 12/17/19 20:59 Not Given ACHS BABAK Levothyroxine Sodium 25 mcg 11/17/19 06:30 11/23/19 06:40 Synthroid PO 12/17/19 06:29 25 mcg DAILYBB BABAK Administration Magnesium Chloride 64 mg 11/20/19 09:15 11/23/19 08:37 Slow-Mag PO 12/20/19 09:14 64 mg BID BABAK Administration Miscellaneous 15 - 30 gm 11/17/19 17:31 11/19/19 17:29 Carbohydrates For Hypoglycemia PO 12/17/19 17:30 30 gm UD PRN Administration Hypoglycemia Protocol Misoprostol 100 mcg 11/17/19 09:00 11/23/19 08:40 Cytotec PO 12/17/19 08:59 100 mcg QID BABAK Administration Nortriptyline HCl 25 mg 11/17/19 21:00 11/22/19 21:15 Pamelor PO 12/17/19 20:59 25 mg HS BABAK Administration Oxycodone HCl 5 mg 11/17/19 07:06 11/23/19 10:37 Roxicodone Immediate Rel PO 12/01/19 07:05 5 mg Q4H PRN Administration Pain Pantoprazole Sodium 40 mg 11/17/19 09:00 11/23/19 08:39 Protonix PO 12/17/19 08:59 40 mg DAILY BABAK Administration Sucralfate 1 gm 11/17/19 07:30 11/23/19 10:37 Carafate Tab PO 12/17/19 07:29 1 gm ACHS BABAK Administration Thiamine HCl 100 mg 11/17/19 09:00 11/23/19 08:38 Vitamin B-1 PO 12/17/19 08:59 100 mg QAM BABAK Administration NPO Date Last Intake of Fluids: 11/22/19 Time Last Intake of Fluids: 23:30 Date Last Intake of Solids: 11/22/19 Time Last Intake of Solids: 19:00 Past Medical History Medical History Acute alcohol abuse (Chronic) Alcohol abuse Anemia, iron deficiency (Chronic) Arthritis (Chronic) Bacteremia DVT prophylaxis Esophagus disorder Gram positive sepsis Hypokalemia Small bowel obstruction (Resolved) Ulcer GI Past Family History Family History Other No pertinent family history in first degree relatives Past Surgical History Surgical History History of incision and drainage (08/18/19) Left Axillary Abscess Incision and Drainage Dr. Perdue 08/18/19 Status post appendectomy (Chronic) Status post cholecystectomy (Chronic) Status post gastric bypass for obesity (Chronic) Status post hysterectomy (Chronic) Social History Smoking Status: Former smoker tobacco type: cigarettes Hx Alcohol Use: Yes Alcohol type: beer and hard liquor alcohol intake frequency: 3 or more drinks per day Hx Substance Use: No substance use type: does not use Physical Exam Vital Signs Last Vital Signs Temp 36.6 C 11/23/19 07:48 Pulse 95 H 11/23/19 07:48 Resp 16 11/23/19 07:48 BP 107/64 11/23/19 07:48 Pulse Ox 95 11/23/19 07:48 Testing Laboratory Results 11/23/19 06:48 11/23/19 06:48 PT 12.0 Seconds (9.0-12.0) 11/19/19 12:46 INR 1.2 (0.9-1.1) H 11/19/19 12:46 Hemoglobin A1c 4.9 % (4.5-5.6) 11/18/19 05:55 Urine Color [place] 11/22/19 18:38 Urine Appearance Cloudy (Clear) A 11/22/19 18:38 Urine pH 5.0 (4.5-7.5) 11/22/19 18:38 Ur Specific [place] 1.017 (1.000-1.030) 11/22/19 18:38 Urine Protein Trace (Negative) H 11/22/19 18:38 Urine Glucose (UA) Negative (Negative) 11/22/19 18:38 Urine Ketones Trace (Negative) H 11/22/19 18:38 Urine Nitrite Positive (Negative) A 11/22/19 18:38 Ur Leukocyte Esterase 2+ (Negative) H 11/22/19 18:38 Urine WBC (Auto) 10-30 /hpf (0-5) H 11/22/19 18:38 Urine RBC (Auto) 0-4 /hpf (0-4) 11/22/19 18:38 U Hyaline Cast (Auto) 5-10 /lpf (0-5) H 11/22/19 18:38 U Epithel Cells (Auto) >30 /lpf (0-5) H 11/22/19 18:38 Urine Bacteria (Auto) 2+ (Negative) H 11/22/19 18:38 Blood Type A Positive 11/20/19 22:07 Antibody Screen NEGATIVE 11/20/19 22:07 11/22/19 18:38 Urine Culture - Preliminary Urine,Clean Catch Escherichia coli 11/20/19 11:14 Aerobic Blood Culture - Preliminary Blood Staphylococcus aureus Anaerobic Blood Culture - Preliminary No growth in Anaerobic bottle after 48 hours. 11/20/19 11:02 Aerobic Blood Culture - Preliminary Blood Staphylococcus aureus Anaerobic Blood Culture - Preliminary No growth in Anaerobic bottle after 48 hours. 11/18/19 05:55 Aerobic Blood Culture - Preliminary Blood Staph aureus MRSA Anaerobic Blood Culture - Final No growth in Anaerobic bottle after 5 days. 11/18/19 06:04 Aerobic Blood Culture - Preliminary Blood Staph aureus MRSA Anaerobic Blood Culture - Final No growth in Anaerobic bottle after 5 days. 11/22/19 11:19 Gram Stain - Final Knee,Left 11/17/19 02:33 Aerobic Blood Culture - Final Blood No growth in Aerobic bottle after 5 days. Anaerobic Blood Culture - Preliminary Staph aureus MRSA 11/17/19 02:36 Aerobic Blood Culture - Final Blood No growth in Aerobic bottle after 5 days. Anaerobic Blood Culture - Preliminary Staph aureus MRSA 11/19/19 11:33 Aerobic Blood Culture - Preliminary Blood Staph aureus MRSA Anaerobic Blood Culture - Preliminary No growth in Anaerobic bottle after 48 hours. 11/19/19 11:33 Aerobic Blood Culture - Preliminary Blood Staph aureus MRSA Anaerobic Blood Culture - Preliminary No growth in Anaerobic bottle after 48 hours. 11/23/19 07:38 POC Glucose 97 Electrocardiogram Date: 11/17/19 Findings: + NSR @ Chest X-Ray Date: 11/23/19 complete opacification of L lung. congestive change in R lung. Echocardiogram Date: 11/18/19 EF: 65 LV Function: normal Other Findings: + LVH (mild) Valvular Disease: + no significant valvular disease
--- NOTE | 2019-11-23 11:39 | Orthopedic Progress Note ---
Date of Service November 23, 2019 Assessment & Plan (1) Septic arthritis of knee, left: Left knee aspiration synovial analysis concerning for infection, gram- positive cocci seen on Gram stain, cell count 78,084 and will WBC 88%. [place] knee infection likely due to hematogenous spread. Plan for left knee arthroscopic I&D today however discussed patient's case with Dr. Williamson, concern for endocarditis, patient has collapsed lung, not stable for surgery at this time. Treatment options moving forward include arthroscopic I&D of the left knee when medically stable versus serial aspirations and IV antibiotics. Continue with IV antibiotics per infectious disease. Ice and elevation to left lower extremity. Trend inflammatory labs. Subjective Patient seen resting comfortably in bed. No acute distress. Reports slight improvement in pain to left knee after aspiration. Review of Systems Review of Systems: All systems reviewed & are unremarkable except as noted in HPI & below Constitutional: as per Subjective / HPI Physical Exam Physical Exam: LLE NVSI +EHL/FHL/TA/GS SILT grossly, +2 DP pulse, compartments soft NT, mild edema and effusion. Range of motion 5-100 degrees of flexion with discomfort however improved since previous physical exam. Constitutional: WD/WN, vitals as above Results & Data Vital Signs (Past 12 Hours) Vital Signs Temp Pulse Pulse Resp BP Pulse Ox 11/23/19 07:48 36.6 C 95 H 16 107/64 95 11/23/19 06:41 18 96 11/23/19 04:23 36.6 C 78 20 109/62 94 11/23/19 00:00 97 H 11/22/19 23:46 36.6 C 101 H 20 107/67 95 Laboratory Results 11/23/19 11/23/19 11/23/19 Range/Units 07:38 06:48 06:48 Hgb 7.7 L (12.0-16.0) g/dL Hct 23.3 L (37-47) % ESR 63 H (0-21) mm/hr Sodium (136-145) mmol/L Potassium (3.5-5.1) mmol/L Chloride (98-107) mmol/L Carbon Dioxide (21-32) mmol/L Anion Gap (3-11) BUN (7-18) mg/dl Creatinine (0.6-1.2) mg/dl Est Cr Clr Drug Dosing ml/min Est GFR ( Amer) Est GFR (Non-Af Amer) BUN/Creatinine Ratio (10-20) Glucose (70-99) mg/dl POC Glucose 97 (70-99) mg/dl Calcium (8.5-10.1) mg/dl Phosphorus (2.5-4.9) mg/dl Magnesium (1.8-2.4) mg/dl C-Reactive Protein (0-0.29) mg/dl Specimen Hemolysis Urine Color Urine Appearance (Clear) Urine pH (4.5-7.5) Ur Specific [place] (1.000-1.030) Urine Protein (Negative) Urine Glucose (UA) (Negative) Urine Ketones (Negative) Urine Blood (Negative) Urine Nitrite (Negative) Urine Bilirubin (Negative) Urine Urobilinogen (Negative) Ur Leukocyte Esterase (Negative) Urine WBC (Auto) (0-5) /hpf Urine RBC (Auto) (0-4) /hpf U Hyaline Cast (Auto) (0-5) /lpf U Epithel Cells (Auto) (0-5) /lpf Urine Bacteria (Auto) (Negative) Urine Mucus (None Prsent) Synovial Source Synovial Color Synovial Appearance Synovial WBC (0-200) /uL Synovial RBC /uL Synovial Polynuclear % % Synovial Mononuclear % % 11/23/19 11/22/19 11/22/19 Range/Units 06:48 20:32 18:38 Hgb (12.0-16.0) g/dL Hct (37-47) % ESR (0-21) mm/hr Sodium 133 L (136-145) mmol/L Potassium 4.0 (3.5-5.1) mmol/L Chloride 103 (98-107) mmol/L Carbon Dioxide 25 (21-32) mmol/L Anion Gap 5.0 (3-11) BUN 7 (7-18) mg/dl Creatinine 0.73 (0.6-1.2) mg/dl Est Cr Clr Drug Dosing 71.9 ml/min Est GFR ( Amer) 102.3 Est GFR (Non-Af Amer) 88.3 BUN/Creatinine Ratio 9.4 L (10-20) Glucose 82 (70-99) mg/dl POC Glucose 136 H (70-99) mg/dl Calcium 7.2 L (8.5-10.1) mg/dl Phosphorus 2.5 (2.5-4.9) mg/dl Magnesium 1.7 L (1.8-2.4) mg/dl C-Reactive Protein 8.87 H (0-0.29) mg/dl Specimen Hemolysis Urine Color [place] Urine Appearance Cloudy A (Clear) Urine pH 5.0 (4.5-7.5) Ur Specific [place] 1.017 (1.000-1.030) Urine Protein Trace H (Negative) Urine Glucose (UA) Negative (Negative) Urine Ketones Trace H (Negative) Urine Blood Trace H (Negative) Urine Nitrite Positive A (Negative) Urine Bilirubin 2+ H (Negative) Urine Urobilinogen Negative (Negative) Ur Leukocyte Esterase 2+ H (Negative) Urine WBC (Auto) 10-30 H (0-5) /hpf Urine RBC (Auto) 0-4 (0-4) /hpf U Hyaline Cast (Auto) 5-10 H (0-5) /lpf U Epithel Cells (Auto) >30 H (0-5) /lpf Urine Bacteria (Auto) 2+ H (Negative) Urine Mucus Present A (None Prsent) Synovial Source Synovial Color Synovial Appearance Synovial WBC (0-200) /uL Synovial RBC /uL Synovial Polynuclear % % Synovial Mononuclear % % 11/22/19 11/22/19 11/22/19 Range/Units 16:43 11:40 11:19 Hgb (12.0-16.0) g/dL Hct (37-47) % ESR (0-21) mm/hr Sodium (136-145) mmol/L Potassium (3.5-5.1) mmol/L Chloride (98-107) mmol/L Carbon Dioxide (21-32) mmol/L Anion Gap (3-11) BUN (7-18) mg/dl Creatinine (0.6-1.2) mg/dl Est Cr Clr Drug Dosing ml/min Est GFR ( Amer) Est GFR (Non-Af Amer) BUN/Creatinine Ratio (10-20) Glucose (70-99) mg/dl POC Glucose 170 H 121 H (70-99) mg/dl Calcium (8.5-10.1) mg/dl Phosphorus (2.5-4.9) mg/dl Magnesium (1.8-2.4) mg/dl C-Reactive Protein (0-0.29) mg/dl Specimen Hemolysis Urine Color Urine Appearance (Clear) Urine pH (4.5-7.5) Ur Specific [place] (1.000-1.030) Urine Protein (Negative) Urine Glucose (UA) (Negative) Urine Ketones (Negative) Urine Blood (Negative) Urine Nitrite (Negative) Urine Bilirubin (Negative) Urine Urobilinogen (Negative) Ur Leukocyte Esterase (Negative) Urine WBC (Auto) (0-5) /hpf Urine RBC (Auto) (0-4) /hpf U Hyaline Cast (Auto) (0-5) /lpf U Epithel Cells (Auto) (0-5) /lpf Urine Bacteria (Auto) (Negative) Urine Mucus (None Prsent) Synovial Source KNEE Synovial Color YELLOW Synovial Appearance CLOUDY Synovial WBC 06683 H (0-200) /uL Synovial RBC [id number] /uL Synovial Polynuclear % 88.0 % Synovial Mononuclear % 12.0 %
--- NOTE | 2019-11-23 17:23 | Hospitalist Progress Note ---
Date of Service November 23, 2019 Assessment & Plan (1) Hyperbilirubinemia: Patient is a 63 yr female who presents with nausea and vomiting for few days, frequent falls, generalized body ache Nausea/Vomiting Hyperbilirubinemia H/O RYGB with anastomotic ulcer --CT ABD:Displaced fractures of the posterior left 10th and 11th ribs, which are acute appearing. Small left pleural effusion new from prior. Minimal complexity suggested dependently while the majority of this effusion is water density. It is difficult to exclude a minimal hemothorax component. Left basilar atelectasis with mucous plugging. No evidence of acute intra-abdominal injury. [place]-en-Y gastric bypass without evidence of complication. Severe hepatic steatosis. --ABD USD:Surgically absent gallbladder. Hepatic steatosis. No significant ductal dilatation --Appreciate GI Input --Since CBD is nondilated, no plan for MRCP --Continue PPI, Carafate --Liver serological studies pending --Monitor LFTs --Chronic abdominal pain--with history of chronic marginal ulcer--May need possible revision of her RYGB. --Patient to follow-up with bariatric surgeon upon discharge --Poor appetite--slowly improving --Monitor LFTs Sepsis MRSA Bacteremia ? Left knee septic arthritis --MRI L spine:Limited study technically due to severe patient motion. Broad- based disc herniation L3-L4 with moderate narrowing of the spinal canal and moderate to significant narrowing of the neural foramina bilaterally. Mild broad-based bulging disc L4-L5. --MRI T Spine:No significant compromise of the spinal canal. Compromised exam due to patient motion. No evidence for compression deformity or bone marrow replacing process. Slightly complex left pleural effusion raising the possibility of a left hemothorax/left pleural effusion. Blood Cx: MRSA ECHO: No visualized valvular disease Follow-up synovial fluid culture IV Vancomycin changed to Daptomycin Appreciate ID Input Monitor CPK levels while on IV daptomycin Left loculated pleural effusion --MRI:No significant compromise of the spinal canal. Compromised exam due to patient motion. No evidence for compression deformity or bone marrow replacing process. Slightly complex left pleural effusion raising the possibility of a left hemothorax/left pleural effusion. --CXR:Large left pleural effusion with complete opacification of the left hemithorax and nonaeration of the left lung. Congestive changes in the right lung. --Needs thoracoscopy --Appreciate CT surgery input --Plan for thoracoscopy tomorrow --NPO after midnight Left Knee Joint Swelling:? Source of Bacteremia Knee X ray:Soft tissue swelling without acute fracture or dislocation. Tricompartmental osteoarthritis as above with moderate joint effusion. S/P left knee arthrocentesis on 11/22/19 Synovial fluid Cx: [place] Appreciate orthopedics input On Daptomycin as above Needs arthroscopy and I&D of L knee eventually Pain control UTI: Urine Cx: E.coli Empirically started on Rocephin Diarrhea Check stool for C. difficile if develops recurrence of diarrhea Hypotension:--Chronic Likely worsened due to dehydration on Florinef Monitor BP Electrolyte abnormalities: Hypokalemia/Hypomagnesemia/Hypophosphatemia Likely due to GI loses Replace electrolytes as needed DM II Last Hb A1C:5.4 Hypoglycemia noted ISS while hospitalized Monitor BGs Peptic ulcer disease Continue Nexium and sucralfate Recent pulmonary nodule. Follow up repeat CT scan as outpatient Alcoholism Denies any recent alcohol drink Continue thiamine, folic acid Counseled to quit completely H/O Falls Rib fractures secondary to fall Pain control Incentive Spirometry H/O Obesity H/O Gastric Bypass DVT Px: SCDs Code status: Full Code DISPOSITION: PT/OT prior to discharge Subjective Patient is seen and examined at bedside No significant change from yesterday as per patient No nausea, vomiting, diarrhea this morning Chest x-ray showed worsened left pleural effusion Needs thoracoscopy, planned for tomorrow Reports left knee pain, dyspnea on exertion Also has chronic abdominal pain Review of Systems Review of Systems: All systems reviewed & are unremarkable except as noted in HPI & below Physical Exam Physical Exam: Physical Exam: Vitals signs as noted above General Appearance:Thin, frail, No apparent distress Head: normocephalic, Atraumatic Eyes: normal inspection, EOMI Neck: supple, Trachea midline Respiratory/Chest: Decreased breath sounds, CTA Cardiovascular: S1, S2, No murmur Abdomen/GI:Soft, Mild generalized tender, Bowel sounds present Extremities/Musculoskelatal:normal inspection, Left Knee swelling/tender, No pedal edema Neurologic/Psych:AAOX3, grossly no focal neurological deficits Skin: normal color, warm Results & Data Vital Signs (Past 12 Hours) Vital Signs Temp Pulse Pulse Resp BP Pulse Ox 11/23/19 15:10 36.6 C 93 H 16 105/68 99 11/23/19 11:48 36.5 C 90 20 103/65 96 11/23/19 07:48 36.6 C 95 H 16 107/64 95 11/23/19 07:00 97 H 11/23/19 06:41 18 96 Laboratory Results Short CBC 11/23/19 Range/Units 06:48 Hgb 7.7 L (12.0-16.0) g/dL Hct 23.3 L (37-47) % BMP 11/23/19 06:48 Sodium 133 L Potassium 4.0 Chloride 103 Carbon Dioxide 25 BUN 7 Creatinine 0.73 Glucose 82 Calcium 7.2 L Urine 11/22/19 Range/Units 18:38 Urine Color [place] Urine Appearance Cloudy A (Clear) Urine pH 5.0 (4.5-7.5) Ur Specific [place] 1.017 (1.000-1.030) Urine Protein Trace H (Negative) Urine Glucose (UA) Negative (Negative)
[2019-11-23] MEDS: NORTRIPTYLINE HCL 25 MG CAP PO SCH (21:12)
[2019-11-24] MEDS: cefTRIAXone SODIUM 1,000 MG in DEXTROSE 5% 50 ML IV SCH ×2 (00:21→23:44)
[2019-11-24 07:00] LABS: Hematocrit (blood only) 21.3 % (37-47); Hemoglobin 7.1 g/dL (12.0-16.0); Mean Corpuscular Hemoglobin 31.8 pg (25-34); Mean Corpuscular Hgb Conc 33.3 g/dL (32-36); Mean Corpuscular Volume 95.5 fL (80-100); Mean Platelet Volume 8.8 fL (7.4-10.4); Platelet Count 403 K/uL (130-400); RDW Coefficient of Variation 17.3 % (11.5-14.5); RDW Standard Deviation 59.7 fL (36.4-46.3); Red Blood Count 2.23 M/uL (4.2-5.4); White Blood Count 15.14 K/uL (4.8-10.8)
--- NOTE | 2019-11-24 07:13 | XRay Report ---
XR chest 1V portable CLINICAL HISTORY: Pleural effusion COMPARISON STUDY: 11/23/2019 FINDINGS: There is slight improved aeration the left lung at the left lung still remains largely opac ified with a suspected left pleural effusion. There is elevation of the right lung interstitium. An e lement of pulmonary vascular congestion is suspected. There are old right-sided rib deformities. Ther e is a stable nonspecific right midlung zone peripheral opacity.[ IMPRESSION: 1. Slight improvement in the aeration left lung with a persistent effusion volume loss 2. Elevation right lung interstitium, likely secondary to pulmonary vascular congestion 3. Stable nonspecific right midlung zone peripheral opacity. ACT 112: Negative or not required by law. Electronically signed by: Jevon Fitzpatrick M.D. 11/24/2019 7:12 AM
[2019-11-24 07:22] LABS: Basophils # (auto) 0.02 K/uL (0-0.2); Basophils % (auto) 0.1 %; Eosinophils # (auto) 0.02 K/uL (0-0.5); Eosinophils % (auto) 0.1 %; Immature Granulocytes % (auto) 0.7 %; Lymphocytes # (auto) 0.71 K/uL (1.2-3.4); Lymphocytes % (auto) 4.7 %; Monocytes # (auto) 0.43 K/uL (0.11-0.59); Monocytes % (auto) 2.8 %; Neutrophils # (auto) 13.86 K/uL (1.4-6.5); Neutrophils % (auto) 91.6 %; Target Cells 1+
[2019-11-24 07:33] LABS: Magnesium 1.5 mg/dl (1.8-2.4); Phosphorus 2.3 mg/dl (2.5-4.9)
[2019-11-24] MEDS: LEVOTHYROXINE SODIUM 25 MCG TABLET PO SCH (08:26)
[2019-11-24] MEDS: DULOXETINE HCL 30 MG CAP PO SCH (08:27)
[2019-11-24] MEDS: FLUDROCORTISONE ACETATE 0.1 MG TAB PO SCH (08:27)
[2019-11-24] MEDS: SUCRALFATE 1 GM TAB PO SCH ×4 (08:27→20:56)
[2019-11-24] MEDS: FOLIC ACID 1 MG TAB PO SCH (08:27)
[2019-11-24] MEDS: miSOPROStoL 100 MCG TAB PO SCH ×4 (08:27→20:57)
[2019-11-24] MEDS: CYANOCOBALAMIN 500 MCG TABLET (VITAMIN B-12) PO SCH (08:28)
[2019-11-24] MEDS: THIAMINE HCL 100 MG TAB PO SCH (08:28)
[2019-11-24] MEDS: GABAPENTIN 300 MG CAP PO SCH ×3 (08:28→20:58)
[2019-11-24] MEDS: MAGNESIUM CHLORIDE 64MG DELAYED REL TAB PO SCH ×2 (08:28→21:03)
[2019-11-24] MEDS: PANTOprazole 40 MG TAB PO SCH (08:28)
[2019-11-24] MEDS: INSULIN ASPART 100 UNITS/ML 3 ML PEN SC SCH ×3 (08:42→21:07)
[2019-11-24] MEDS ORDERED: SODIUM CHLORIDE 0.9% 250 ML IV PRN (09:45)
[2019-11-24] MEDS ORDERED: MAGNESIUM SULFATE / D5W 1 GM/100 ML BAG IV ONE (09:50)
[2019-11-24 09:54] LABS: Alpha 1 Antitrypsin 275 mg/dL (83-199); Ceruloplasmin 21 mg/dL (18-53)
--- NOTE | 2019-11-24 09:58 | Infectious Disease Progress Nt ---
Date of Service November 24, 2019 Assessment & Plan (1) Gram positive sepsis: continue dapto, all blood cultures + MRSA will repeat, will follow., unclear source - MRI spine negative. agree that knee is likely infected, unclear if source or if seeded due to prolonged bsi. will continue dapto for now. ortho following, knee culture growing MRSA as well. will need prolonged course of IV abx, range of 6 weeks, will need weekly cbc,cmp, esr, cpk while on abx. Now with effusion, will await OR findings. Subjective remains on dapto, knee aspirate 11/20 now growing MRSA as well. now with left effusion, spoke with CT surgery, will proceed with drainage. tolerating abx, afebrile. urine culture growing E. coli, on ctx. Results & Data Vital Signs (Past 12 Hours) Vital Signs Temp Pulse Pulse Resp BP Pulse Ox 11/24/19 07:05 36.5 C 101 H 20 107/66 92 11/24/19 04:20 37.0 C 98 H 20 102/68 97 11/24/19 00:00 95 H 11/23/19 23:14 37.1 C 96 H 20 100/64 96 Laboratory Results Microbiology 11/22/19 18:38 Urine,Clean Catch Urine Culture - Preliminary Escherichia coli Gram negative bacilli 11/20/19 11:14 Blood Aerobic Blood Culture - Preliminary Staph aureus MRSA 11/20/19 11:14 Blood Anaerobic Blood Culture - Preliminary No growth in Anaerobic bottle after 48 hours. 11/22/19 11:19 Knee,Left Gram Stain - Final 11/22/19 11:19 Knee,Left Aerobic and Anaerobic Culture - Preliminary Staph aureus MRSA 11/20/19 11:02 Blood Aerobic Blood Culture - Preliminary Staph aureus MRSA 11/20/19 11:02 Blood Anaerobic Blood Culture - Preliminary No growth in Anaerobic bottle after 48 hours. 11/18/19 06:04 Blood Aerobic Blood Culture - Final Staph aureus MRSA 11/18/19 06:04 Blood Anaerobic Blood Culture - Final No growth in Anaerobic bottle after 5 days. 11/18/19 05:55 Blood Aerobic Blood Culture - Final Staph aureus MRSA 11/18/19 05:55 Blood Anaerobic Blood Culture - Final No growth in Anaerobic bottle after 5 days. 11/17/19 02:36 Blood Aerobic Blood Culture - Final No growth in Aerobic bottle after 5 days. 11/17/19 02:36 Blood Anaerobic Blood Culture - Final Staph aureus MRSA 11/17/19 02:33 Blood Aerobic Blood Culture - Final No growth in Aerobic bottle after 5 days. 11/17/19 02:33 Blood Anaerobic Blood Culture - Final Staph aureus MRSA 11/19/19 11:33 Blood Aerobic Blood Culture - Preliminary Staph aureus MRSA 11/19/19 11:33 Blood Anaerobic Blood Culture - Preliminary No growth in Anaerobic bottle after 48 hours. 11/19/19 11:33 Blood Aerobic Blood Culture - Preliminary Staph aureus MRSA 11/19/19 11:33 Blood Anaerobic Blood Culture - Preliminary No growth in Anaerobic bottle after 48 hours. PG Care Time/CCT Total # of Minutes Spent Total Time Spent with Patient: Total time spent is greater than 50% in coordination of care (as documented) at patient's floor/unit and/or counseling patient:
[2019-11-24] MEDS: DAPTOmycin 450 MG in SYRINGE 0 ML IV SCH (11:06)
[2019-11-24] MEDS ORDERED: MoRPHine SULFATE 2 MG/ML CARP IV PRN (11:14)
[2019-11-24] MEDS: POT PHOSPHATE MONOBASIC W/ SOD TAB PO SCH ×3 (11:20→20:59)
[2019-11-24] MEDS ORDERED: MoRPHine SULFATE 2 MG/ML CARP ONE (11:27)
--- NOTE | 2019-11-24 12:06 | History & Physical Bridge Note ---
Date of Service November 24, 2019 History & Physical Bridge Note I have examined the patient, reviewed the History & Physical and in the interval since the performance of the History & Physical I have noted the following changes of clinical significance: no changes noted
[2019-11-24] MEDS ORDERED: NEOSTIGMINE METHYLSULFATE 5 MG/5 ML SYR ONE (12:50)
[2019-11-24] MEDS ORDERED: MIDAZOLAM HCL 1 MG/ML 2ML VIAL ONE (12:50)
[2019-11-24] MEDS ORDERED: SUCCINYLCHOLINE CHLORIDE 20 MG/ML 10 ML VIAL ONE (12:50)
[2019-11-24] MEDS ORDERED: DEXAMETHASONE SOD INJ 4 MG/ML VIAL ONE (12:50)
[2019-11-24] MEDS ORDERED: PROPOFOL IV EMULSION 10 MG/ML 20 ML VIAL IV ONE (12:50)
[2019-11-24] MEDS ORDERED: ONDANSETRON INJ 2 MG/ML 2 ML VIAL ONE (12:50)
[2019-11-24] MEDS ORDERED: ePHEDrine sulfate 50 MG/ML AMP ONE (12:50)
[2019-11-24] MEDS ORDERED: LIDOCAINE HCL 2% 2 ML VIAL/AMP(20MG/ML) INFIL ONE (12:50)
[2019-11-24] MEDS ORDERED: PHENYLEPHRINE HCL 10 MG/ML VIAL ONE ×2 (12:50→15:20)
[2019-11-24] MEDS ORDERED: GLYCOPYRROLATE 0.2 MG/ML VIAL ONE (12:50)
[2019-11-24] MEDS ORDERED: fentaNYL citrate 100 MCG/2 ML VIAL ONE (12:51)
[2019-11-24] MEDS ORDERED: BUPIVACAINE 0.5 % 5 MG/1 ML MPF 30ML VIAL ONE (12:58)
[2019-11-24] MEDS ORDERED: SODIUM CHLORIDE 0.9% PF 50 ML VIAL ONE (12:58)
[2019-11-24] MEDS ORDERED: BUPIVACAINE LIPOSOME 1.3% 266 MG/20 ML VIAL ONE (12:58)
[2019-11-24] MEDS ORDERED: HYDROmorphone INJ 1 MG/ML SYRINGE IV PRN (13:17)
[2019-11-24] MEDS ORDERED: fentaNYL citrate 100 MCG/2 ML VIAL IV PRN (13:17)
[2019-11-24] MEDS ORDERED: ONDANSETRON INJ 2 MG/ML 2 ML VIAL IV PRN ×2 (13:17→19:17)
[2019-11-24] MEDS ORDERED: ATROPINE SULFATE 0.1 MG/ML 10ML SYR IV PRN (13:17)
[2019-11-24] MEDS ORDERED: ALBUMIN HUMAN 5% 12.5 GM/250 ML VIAL IV ONE (14:50)
[2019-11-24] MEDS ORDERED: ePHEDrine sulfate 50 MG/ML SYR ONE (15:20)
[2019-11-24] MEDS ORDERED: VASOPRESSIN 20 UNIT/ML VIAL ONE ×2 (15:20→17:25)
[2019-11-24] MEDS ORDERED: SUGAMMADEX SODIUM 200 MG/2 ML VIAL IV ONE (15:20)
[2019-11-24 15:24] LABS: Anti Mitochondrial Antibody NEGATIVE (NEGATIVE); Smooth Muscle Antibody POSITIVE (NEGATIVE); Transglutaminase, Tissue IgA 1 U/mL
[2019-11-24] MEDS ORDERED: METOCLOPRAMIDE HCL INJ 5 MG/ML 2 ML VIAL IV ONE (15:50)
--- NOTE | 2019-11-24 16:59 | Anesthesiology Progress Note ---
Date of Service November 24, 2019 Anesthesia Post Procedure Vital Signs Vital Signs: Temp Pulse Pulse Resp BP BP BP 11/24/19 12:48 36.7 C 96 H 20 111/58 L 11/24/19 12:06 36.3 C L 94 H 20 102/57 L 102/57 L 11/24/19 11:31 36.6 C 101 H 16 105/59 L 11/24/19 10:07 98 H 11/24/19 07:05 36.5 C 101 H 20 107/66 11/24/19 04:20 37.0 C 98 H 20 102/68 11/24/19 00:00 95 H 11/23/19 23:14 37.1 C 96 H 20 100/64 11/23/19 19:15 36.8 C 95 H 20 104/68 11/23/19 18:30 89 Pulse Ox 11/24/19 12:48 96 11/24/19 12:06 94 11/24/19 11:31 94 11/24/19 10:07 11/24/19 07:05 92 11/24/19 04:20 97 11/24/19 00:00 11/23/19 23:14 96 11/23/19 19:15 98 11/23/19 18:30 Pain Intensity Back: Pain Intensity: 8 Transfer of Care Handoff Completed per policy Notes Mental Status: see notes below Patient Amnestic to Procedure: Yes Nausea / Vomiting: adequately controlled Pain: adequately controlled Airway Patency, RR, SpO2: see Notes below BP & HR: see Notes below Hydration State: see Notes below Anesthetic Complications: see Notes below Notes: The patient is a 63 y/o s/p L thoracoscopy and decortication. She was admitted with staph bacteremia, L septic knee, ulcer at the gastric bypass anastomosis and loculated left pleural effusion. The patient has a PMH of chronic ETOH abuse, anemia, multiple falls, and rib fractures. The patient's hemoglobin preoperatively was 7.0. A unit of PRBC was started on the floor prior to the OR. The patient's preoperative vitals were BP 100s/50s, HR 90-100, and SpO2 96% on 2L NC. She appeared generally weak. Intraoperatively, the patient was intubated without difficulty although she was noted to have a significant amount of thick dry secretions in the back of her oropharynx. The patient became more hemodynamically unstable as the procedure progressed. An arterial line was placed in the R radial artery. The patient required a phenylephrine drip and multiple boluses of IV vasopressin to maintain SBP >100. The patient was given a total of 2 unit PRBC, 250 ml 5% Albumin, and 1500 ml crystalloid. EBL 200 ml. She did not have a Palencia catheter. A hemoglobin obtained after the second unit of blood was given was 8.5. At the end of the procedure the patient was extubated after reversal with sugammadex. She was following commands and breathing tidal volumes of 400-600 ml with a RR of 22. She was noted to have some airway obstruction so BiPAP was started in the OR. Her SpO2 was 98% on BiPAP. She was transferred to the ICU on full monitors and a full report was given to the ICU team who took over her care.
--- NOTE | 2019-11-24 17:14 | Procedure Note ---
Procedure Note Date of Service November 24, 2019 Note CENTRAL LINE PROCEDURE NOTE: Procedure: Central Line Placement Provider: Abdiel Bergeron MD Indication: Central Drug Administration, Poor Venous Access, Multiple Lab Draws Necessary, etc. Anesthesia: 5 mL lidocaine 1% Site: Left subclavian Consent was not able to be obtained. The procedure was urgent as the patient was hemodynamically unstable. No family immediately available. Patient was sedated from her surgical procedure earlier today A time-out was completed verifying correct patient, procedure, site, positioning, and implants(s) or special equipment if applicable. Patients left clavicular area was cleansed and draped in the typical sterile fashion using Chloraprep. The superficial tissue was anesthetized using 5 mL of 1% lidocaine without epinephrine under direct visualization with the ultrasound. After liya quate anesthetization was achieved, left subclavian vein was accessed. Good venous blood return was maintained prior to removal of syringe from introducer needle. Using Seldinger Technique, a guide wire was advanced through the introducer needle without resistance. The introducer needle was removed. A small incision was made in penetrating fashion at the guide wire insertion site utilizing an 11 blade scalpel. The dilator was advanced to the vessel without resistance. The dilator was exchanged for the triple lumen catheter which was advanced into the vessel without resistance. The guide wire was removed intact from the catheter without issue. Claves were placed on each catheter tip with confirmation of good blood flow from each lumen. Each port was easily flushed with sterile saline. The catheter was placed at 22 cm and sutured in place. BioPatch was applied to the catheter and a sterile Tegaderm dressing was applied over the catheter with careful attention to sterility. Patient tolerated procedure well. No immediate complications were met. Post procedure x-ray was completed, placement was appropriate and no pneumothorax was noted. Coding CPT Codes Tubes, Drains, and Vasc Access - Tubes, Drains, and Vasc Access: [id number] Place catheter in vein superior or inferior vena cava ([id number])
[2019-11-24 17:23] LABS: iSTAT Arterial Blood Gas HCO3 21 meg/L (19-24); iSTAT Arterial Blood Gas pCO2 40 mmHg (35-46); iSTAT Arterial Blood Gas pH 7.33 (7.35-7.45); iSTAT Arterial Blood Gas pO2 100 mmHg (80-95); iSTAT Carbon Dioxide 22 mmol/L (24-31); iSTAT Hematocrit 25 % (37-47); iSTAT Hemoglobin 8.5 g/dl (12.0-16.0); iSTAT Potassium 3.1 mmol/L (3.3-5.0); iSTAT Sodium 133 mmol/L (135-144)
--- NOTE | 2019-11-24 17:29 | Critical Care Consultation ---
Date of Consultation November 24, 2019 Assessment & Plan (1) Acute hypoxemic respiratory failure: Impression: 63-year-old female with history of diabetes hypertension and prior bariatric surgery presenting with nausea and vomiting found to have incidentally persistent bacteremia with right septic knee. She is brought to the ICU post video-assisted thoracoscopic washout for complicated parapneumonic effusion. Recommendations: 1. Severe sepsis with septic shock: Continue volume resuscitation. Check serum cortisol. Continue antibiotics in the form of daptomycin. May require additional volume repletion. Pressor support with levo fed as needed. 2. Persistent MRSA bacteremia: Recheck surveillance cultures today. Orthopedics consult has been obtained and plans on washing out the knee at some point. We will check follow-up chest x-ray. Defer to infectious disease as to whether or not transesophageal echocardiogram is required. Interestingly, the patient did have an atrial septal aneurysm with a hemodynamically insignificant shunt. 3. Empyema: Chest tube management per thoracic surgery: 4. Hypoxemic respiratory failure: Continue noninvasive positive pressure ventilation pending improvement in the patient's mental status and respiratory drive. Hopefully we can avoid reintubation. Postoperative chest x-ray is currently pending. 5. Anemia: Unclear issue. It is related that this was a prior issue. Given gastric bypass consider the possibility of pernicious anemia. Anemia of chronic disease also possible. No obvious source of bleeding. The site count will now be useless in the setting of recent transfusion. Iron stores may also be somewhat problematic. 6. Hyponatremia: Suspect volume down. Continue volume repletion and trend sodium. 7. Abnormal LFTs: These have not been checked in several days. Will repeat values today. 8. Hypocalcemia, hypomagnesemia: Suspect poor p.o. intake. Replacement and recheck. Patient remains critically ill at this point time with significant possibility of organ system dysfunction. No family immediately available. A total of 50 minutes critical care time was spent in evaluation management and stabilizing exclusive of procedures. (2) Pleural effusion: (3) Septic shock: History of Present Illness Attending Physician: Tobias Allen MD History of Present Illness Asked by Dr. Justine Herrera to assist in management of this patient post thoracoscopy for empyema. History is obtained from discussion with Dr. Justine Herrera as well as review the electronic medical record. The patient is on full face BiPAP and recovering from general anesthesia and unable to provide any additional history. Patient is a 63-year-old female who was admitted to the facility 11/17/2019. She was admitted with nausea and vomiting. GI consultation was obtained. She was found to have hyperbilirubinemia and there was concern about need for potential ERCP. She did not have intraductal dilatation. Blood cultures obtained in the emergency room grew staph aureus. ID consultation was obtained. She was placed on daptomycin. Serial cultures showed persistent bacteremia. Surface echocardiogram demonstrated no evidence of endocarditis. MRI of the spine showed no evidence of osteomyelitis or discitis. The patient developed a rapidly progressive left-sided effusion was taken to the OR today for decortication. There was also an abscess in the chest wall which was drained intraoperatively internally. The knee is been tapped as well and is growing gram-positive cocci. Orthopedics plans on taking the patient for a knee washout at some point. She has not had surveillance cultures done since the . Postoperatively the patient required noninvasive positive pressure ventilation to maintain oxygenation. She also required intermittent pushes of vasopressor agents during her course. I arrived to assess the patient on arrival to the ICU. A central line was placed. Blood gas was repeated and appears stable. She did receive 2 units of packed cells for anemia during the case. There is no sign of ongoing bleeding. Allergies Allergy/AdvReac Type Severity Reaction Status Date / Time Sulfa (Sulfonamide Allergy Severe FACE/THROAT Verified 11/17/19 02:12 Antibiotics) SWELL UP Home Medications Home Medications Medication Instructions Recorded Confirmed Type cyanocobalamin (vitamin B-12) 500 mcg PO DAILY 08/16/19 11/17/19 History [Vitamin B-12] esomeprazole magnesium [Nexium] 40 mg PO DAILY 08/16/19 11/17/19 History folic acid 1 mg PO DAILY 08/16/19 11/17/19 History misoprostol [Cytotec] 100 mcg PO QID 08/16/19 11/17/19 History thiamine HCl (vitamin B1) [Vitamin 100 mg PO QAM #30 tab 08/22/19 11/17/19 Rx B-1] meclizine 25 mg PO Q8H PRN #30 tab 09/29/19 11/17/19 Rx duloxetine 30 mg PO BID 11/17/19 11/17/19 History fludrocortisone 0.1 mg PO DAILY 11/17/19 11/17/19 History gabapentin 300 mg PO TID 11/17/19 11/17/19 History levothyroxine 25 mcg PO DAILY 11/17/19 11/17/19 History nortriptyline 25 mg PO HS 11/17/19 11/17/19 History sucralfate 1 g PO ACHS 11/17/19 11/17/19 History Patient History Medical History Acute alcohol abuse (Chronic) Alcohol abuse Anemia, iron deficiency (Chronic) Arthritis (Chronic) Bacteremia DVT prophylaxis Esophagus disorder Gram positive sepsis Hypokalemia Small bowel obstruction (Resolved) Ulcer GI Surgical History History of incision and drainage (08/18/19) Left Axillary Abscess Incision and Drainage Dr. 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 Full face BiPAP in place Eyes: PERRL Neck: trachea midline, no thyromegaly Respiratory: Breath sounds are coarse bilateral Cardiovascular: RRR, no murmur, no edema Musculoskeletal: Left knee wrapped. Mild effusion Skin: no rashes, warm and dry Results & Data Vital Signs (Past 12 Hours) Vital Signs Temp Pulse Pulse Resp BP BP BP 11/24/19 16:35 29 H 11/24/19 16:30 89 24 11/24/19 12:48 36.7 C 96 H 20 111/58 L 11/24/19 12:06 36.3 C L 94 H 20 102/57 L 102/57 L 11/24/19 11:31 36.6 C 101 H 16 105/59 L 11/24/19 10:07 98 H 11/24/19 07:05 36.5 C 101 H 20 107/66 Pulse Ox 11/24/19 16:35 98 11/24/19 16:30 94 11/24/19 12:48 96 11/24/19 12:06 94 11/24/19 11:31 94 11/24/19 10:07 11/24/19 07:05 92 Laboratory Results 11/24/19 06:24 11/23/19 06:48 Microbiology 11/24/19 15:24 Chest Fungal Smear - Final 11/24/19 15:24 Chest Gram Stain - Final 11/24/19 14:12 Pleural Fluid Fungal Smear - Final 11/24/19 14:12 Pleural Fluid Gram Stain - Final 11/19/19 11:33 Blood Aerobic Blood Culture - Final Staph aureus MRSA 11/19/19 11:33 Blood Anaerobic Blood Culture - Final No growth in Anaerobic bottle after 5 days. 11/19/19 11:33 Blood Aerobic Blood Culture - Final Staph aureus MRSA 11/19/19 11:33 Blood Anaerobic Blood Culture - Final No growth in Anaerobic bottle after 5 days. 11/22/19 18:38 Urine,Clean Catch Urine Culture - Preliminary Escherichia coli Gram negative bacilli 11/20/19 11:14 Blood Aerobic Blood Culture - Preliminary Staph aureus MRSA 11/20/19 11:14 Blood Anaerobic Blood Culture - Preliminary No growth in Anaerobic bottle after 48 hours. 11/22/19 11:19 Knee,Left Gram Stain - Final 11/22/19 11:19 Knee,Left Aerobic and Anaerobic Culture - Preliminary Staph aureus MRSA 11/20/19 11:02 Blood Aerobic Blood Culture - Preliminary Staph aureus MRSA 11/20/19 11:02 Blood Anaerobic Blood Culture - Preliminary No growth in Anaerobic bottle after 48 hours. 11/18/19 06:04 Blood Aerobic Blood Culture - Final Staph aureus MRSA 11/18/19 06:04 Blood Anaerobic Blood Culture - Final No growth in Anaerobic bottle after 5 days. 11/18/19 05:55 Blood Aerobic Blood Culture - Final Staph aureus MRSA 11/18/19 05:55 Blood Anaerobic Blood Culture - Final No growth in Anaerobic bottle after 5 days. 11/17/19 02:36 Blood Aerobic Blood Culture - Final No growth in Aerobic bottle after 5 days. 11/17/19 02:36 Blood Anaerobic Blood Culture - Final Staph aureus MRSA 11/17/19 02:33 Blood Aerobic Blood Culture - Final No growth in Aerobic bottle after 5 days. 11/17/19 02:33 Blood Anaerobic Blood Culture - Final Staph aureus MRSA Diagnostic Findings Chest x-ray from today was independently reviewed. There is opacification of the left hemithorax with some volume loss and tracheal shift towards the side of volume loss. Postoperative film is currently pending. CT of the chest from 11/17/2019 was reviewed. It revealed a small loculated pleural effusion at that time. This was on the left. No significant right- sided effusion. Coding Level of Care Code Critical Care 1st 30-74 mins Diagnoses Acute hypoxemic respiratory failure J96.01 Pleural effusion J90 Septic shock A41.9; R65.21 Time Spent (min) 50 Comment 50 minutes critical care time exclusive of procedures stabilizing patient and coordinating care. Patient with life-threatening illness
[2019-11-24] MEDS ORDERED: NORMOSOL-R 1,000 ML IV ONE (17:35)
[2019-11-24] MEDS ORDERED: CALCIUM CHLORIDE 10% 1,000 MG in SODIUM CHLORIDE 0.9% 50 ML IV STA (17:39)
[2019-11-24] MEDS: NOREPINEPHRINE BIT INJ 8 MG in DEXTROSE 5% 500 ML IV SCH (17:46)
--- NOTE | 2019-11-24 17:53 | Hospitalist Progress Note ---
Date of Service November 24, 2019 Assessment & Plan (1) Hyperbilirubinemia: Patient is a 63 yr female who presents with nausea and vomiting for few days, frequent falls, generalized body ache Nausea/Vomiting Hyperbilirubinemia H/O RYGB with anastomotic ulcer --CT ABD:Displaced fractures of the posterior left 10th and 11th ribs, which are acute appearing. Small left pleural effusion new from prior. Minimal complexity suggested dependently while the majority of this effusion is water density. It is difficult to exclude a minimal hemothorax component. Left basilar atelectasis with mucous plugging. No evidence of acute intra-abdominal injury. [place]-en-Y gastric bypass without evidence of complication. Severe hepatic steatosis. --ABD USD:Surgically absent gallbladder. Hepatic steatosis. No significant ductal dilatation --Appreciate GI Input --Since CBD is nondilated, no plan for MRCP --Continue PPI, Carafate --Liver serological studies pending --Monitor LFTs --Chronic abdominal pain--with history of chronic marginal ulcer--May need possible revision of her RYGB. --Patient to follow-up with bariatric surgeon upon discharge --Poor appetite--slowly improving --Monitor LFTs --N.p.o. today as planned for thoracoscopy today Sepsis MRSA Bacteremia Left knee septic arthritis --MRI L spine:Limited study technically due to severe patient motion. Broad- based disc herniation L3-L4 with moderate narrowing of the spinal canal and moderate to significant narrowing of the neural foramina bilaterally. Mild broad-based bulging disc L4-L5. --MRI T Spine:No significant compromise of the spinal canal. Compromised exam due to patient motion. No evidence for compression deformity or bone marrow replacing process. Slightly complex left pleural effusion raising the possibility of a left hemothorax/left pleural effusion. Blood Cx: MRSA ECHO: No visualized valvular disease synovial fluid culture: MRSA IV Vancomycin changed to Daptomycin Appreciate ID Input Monitor CPK levels while on IV daptomycin Continue IV daptomycin Left loculated pleural effusion --MRI:No significant compromise of the spinal canal. Compromised exam due to patient motion. No evidence for compression deformity or bone marrow replacing process. Slightly complex left pleural effusion raising the possibility of a left hemothorax/left pleural effusion. --CXR:Large left pleural effusion with complete opacification of the left hemithorax and nonaeration of the left lung. Congestive changes in the right lung. --Needs thoracoscopy --Appreciate CT surgery input --Plan for thoracoscopy today --May need chest tube placement after bronchoscopy Left Knee Joint Swelling:? Source of Bacteremia Knee X ray:Soft tissue swelling without acute fracture or dislocation. Tricompartmental osteoarthritis as above with moderate joint effusion. S/P left knee arthrocentesis on 11/22/19 Synovial fluid Cx: MRSA Appreciate orthopedics input On Daptomycin as above Needs arthroscopy and I&D of L knee eventually Pain control UTI: Urine Cx: E.coli, gram-negative basilli On Rocephin Day #2 Diarrhea Check stool for C. difficile if develops recurrence of diarrhea Hypotension:--Chronic Likely worsened due to dehydration on Florinef Monitor BP Electrolyte abnormalities: Hypokalemia/Hypomagnesemia/Hypophosphatemia Likely due to GI loses Replace electrolytes as needed DM II Last Hb A1C:5.4 Hypoglycemia noted ISS while hospitalized Monitor BGs Peptic ulcer disease Continue Nexium and sucralfate Recent pulmonary nodule. Follow up repeat CT scan as outpatient Alcoholism Denies any recent alcohol drink Continue thiamine, folic acid Counseled to quit completely H/O Falls Rib fractures secondary to fall Pain control Incentive Spirometry H/O Obesity H/O Gastric Bypass DVT Px: SCDsRe: Procedure today Code status: Full Code DISPOSITION: PT/OT prior to discharge Subjective Patient is seen and examined at bedside this morning Plan for thoracoscopy today Hemoglobin dropped to 7.1 today We will give 1 unit of PRBC Denies any nausea, vomiting, diarrhea today Continues to complain of left knee pain, dyspnea on exertion and chronic abdominal pain Review of Systems Review of Systems: All systems reviewed & are unremarkable except as noted in HPI & below Physical Exam Physical Exam: Physical Exam: Vitals signs as noted above General Appearance:Thin, frail, No apparent distress Head: normocephalic, Atraumatic Eyes: normal inspection, EOMI Neck: supple, Trachea midline Respiratory/Chest: Decreased breath sounds predominantly on left , CTA Cardiovascular: S1, S2, No murmur Abdomen/GI:Soft, Mild generalized tender, Bowel sounds present Extremities/Musculoskelatal:normal inspection, Left Knee in dressing, No pedal edema Neurologic/Psych:AAOX3, grossly no focal neurological deficits Skin: normal color, warm Results & Data Vital Signs (Past 12 Hours) Vital Signs Temp Pulse Pulse Resp BP BP BP 11/24/19 16:35 29 H 11/24/19 16:30 89 24 11/24/19 12:48 36.7 C 96 H 20 111/58 L 11/24/19 12:06 36.3 C L 94 H 20 102/57 L 102/57 L 11/24/19 11:31 36.6 C 101 H 16 105/59 L 11/24/19 10:07 98 H 11/24/19 07:05 36.5 C 101 H 20 107/66 Pulse Ox 11/24/19 16:35 98 11/24/19 16:30 94 11/24/19 12:48 96 11/24/19 12:06 94 11/24/19 11:31 94 11/24/19 10:07 11/24/19 07:05 92 Laboratory Results Short CBC 11/24/19 Range/Units 06:24 WBC 15.14 H (4.8-10.8) K/uL Hgb 7.1 L (12.0-16.0) g/dL Hct 21.3 L (37-47) % Plt Count 403 H (130-400) K/uL
[2019-11-24] MEDS: MAGNESIUM SULFATE / D5W 1 GM/100 ML BAG IV SCH ×2 (17:58→19:03)
[2019-11-24] MEDS: LACTATED RINGER'S 1,000 ML IV SCH (18:03)
--- NOTE | 2019-11-24 18:07 | XRay Report ---
XR chest 1V portable CLINICAL HISTORY: s/p decortication postoperative COMPARISON STUDY: 12/02/2019 FINDINGS: Considerable improvement in aeration left hemithorax post decortication. Lateral as well as inferior chest tubes are present. No significant postprocedural pneumothorax. There is a central catheter in the right atrium. IMPRESSION: 1. Unremarkable postoperative changes left hemithorax post decortication. 2. No significant postprocedural pneumothorax. 3. Considerable improvement in aeration left hemithorax. ACT 112: Negative or not required by law. The above report was generated using voice recognition software. It may contain grammatical, syntax or spelling errors. Electronically signed by: Konrad Issa M.D. 11/24/2019 6:05 PM
[2019-11-24 18:36] LABS: Albumin Level 0.9 gm/dl (3.4-5.0); Bilirubin Direct 3.1 mg/dl (0-0.2); Bilirubin,Total 3.9 mg/dl (0.2-1); Total Protein 3.4 gm/dl (6.4-8.2)
--- NOTE | 2019-11-24 18:52 | Operative Report ---
DATE OF OPERATION: 11/24/2019 PREOPERATIVE DIAGNOSIS: Enlarging complex left pleural effusion. POSTOPERATIVE DIAGNOSES: 1. Complex left pleural empyema. 2. Apparent chest wall abscess. PROCEDURE: 1. Left thoracoscopy with extensive decortication. 2. Drainage of intrathoracic chest wall abscess. SURGEON: Alexander Miranda MD. BED SPRING MAKER: LINWOOD Atkinson (Mr. Lopez was present for the entire case and closed skin incisions at the conclusion). ANESTHESIA: General anesthesia with a single lumen tube. FINDINGS: Nicole Kelley is an interesting 63-year-old female with a past medical history for positive blood cultures dating back to last August. She has had a urinary tract infection with E. coli. She has had a nonhealing wound of her left axilla, which probably healed. She presented "hurting all over" and really did not have an elevated white count until today. I was asked to see her a couple of days ago and she had a small loculations in her left pleural cavity and positive blood culture, but she also had a septic left knee. I got a repeat chest x-ray yesterday and her effusion had greatly enlarged. She was still on room air. For this reason, I elected to proceed with a thoracoscopy to drain this. On 11/24/2019, I brought the patient to the operating room and did an uncomplicated left thoracoscopy and indeed she had an empyema. Gram stain from the OR showed gram-positive cocci. It was actually fairly watery with some fibrinous material, which was easily cleaned off of the upper lobe; however, the lower lobe was quite adherent. I broke up all these pockets and decorticated her. Interestingly enough, as I was removing all this debris, I noticed a ballottable area on the chest wall. This was away from the lung. I opened this up with a clamp and pus poured out of this. I cleaned it off and there was a rib exposed, though the rib appeared to be intact cortically. I cleaned it off for a few centimeters and did not see evidence of a fracture. We irrigated out the chest quite aggressively with a large amount of sterile saline. I did not see much of an air leak; however, she did have a moderate leak when we finished the case, when we hooked the chest tubes up. She tolerated this rather poorly actually. She has very little reserve. We had to put an A-line in during the case. She was transported to the ICU with a BiPAP. She was waking up after she got over there. I saw no other evidence of malignancy, but it is an interesting patient from an infectious standpoint, she has had multiple blood cultures that have been positive for methicillin-resistant Staph aureus. Her echocardiogram showed no evidence of vegetations. DESCRIPTION OF PROCEDURE: The patient was brought to the operating room and laid in supine position. General anesthesia induced. Endotracheal intubation was performed with a single lumen tube. The patient was placed in the right lateral decubitus position and her left chest was prepped and draped in usual sterile fashion. After appropriate timeout had been called and antibiotics given, a 5 mm port was placed just anterior to the latissimus dorsi muscle anteriorly. Upon entering the pleural cavity, we could see this was obviously an abscess. I was able to use the scope to break up into these flimsy loculations, we put another 5 mm port posterior to the scapula. Using these 2, I suctioned and removed all of the fluid and broke up what flimsy loculations we could block off. There was about 700 mL of fluid. We sent this for Gram stain, which came back with gram positive cocci. I then made a working channel down and at about the midline and made it about 4 cm and placed a Weitlaner retractor. Going in with a sponge on a stick, I then was able to remove all of this material. I had to grasp this and pulled it off of the lower lobe as well as the upper lobe but we finally were able to get all of this decorticated. There is a large abscess posteriorly, which we were able to bluntly and sharply bring off of the chest wall. All loculations were opened up and the lungs were completely freed. We then irrigated out the chest with a large amount of saline. I was quite pleased with the expansion of the lung. I then noticed that there was an area of fluctuance on the chest wall under the parietal pleura. This appeared to be about 8 cm in length and about 3-4 cm in width. Using my forceps, I grasped this and opened it and was surprised to see there was milky pus in this. We did do a Gram stain on this and just got numerous neutrophils. We did send it for culture. I was able to irrigate all this out and I closely inspected the rib and using an Aquamantys, I controlled the bleeding quite well and exposed the rib and I did not see evidence of fracture. I was prepared to debride this but as I did not see a fracture, I did not remove any of the bone. Irrigated out the chest quite aggressively. I saw no evidence of further bleeding. We then performed a block using Exparel. A total of 266 mg of Exparel were mixed with 30 mL of 0.5% bupivacaine and 250 mL of normal saline used to inject each of the port sites. I also used it to block each of the intercostal spaces from the 2nd to the 12th rib. We then placed a 24-Lithuanian chest tube through a separate stab wound, anterior and inferior directed towards the apex. I then put a 28-Lithuanian right angle chest tube along the diaphragmatic gutter and put that through a separate stab wound. These were held in place with heavy silk suture. 0 Vicryl was used to close the muscle layer of the working channel. 4-0 Monocryl was used in running subcuticular fashion to approximate the wound edges of all of these. The patient did have a [id number]-[id number] air leak at the conclusion. We lost about 200 mL of blood. She required insertion of an A-line. We also gave her 2 units of blood. She was only 7.1 when we started. I did not see evidence of hemothorax in the chest. She was stabilizing upon her transfer to the intensive care unit. I attest to the content of the Intraoperative Record and any orders documented therein. Any exception s are noted below.
[2019-11-24] MEDS ORDERED: SODIUM CHLORIDE 0.9% 1000ML 1,000 ML IV SCH (19:17)
[2019-11-24] MEDS: ACETAMINOPHEN 1,000 MG/100 ML VIAL IV SCH (19:36)
[2019-11-24 20:02] LABS: Hematocrit (blood only) 24.8 % (37-47); Hemoglobin 8.3 g/dL (12.0-16.0)
[2019-11-24] MEDS: DOCUSATE SODIUM 100 MG CAP PO SCH (20:55)
[2019-11-24] MEDS ORDERED: ALBUMIN 5% 500 ML IV ONE (23:21)
[2019-11-25] MEDS ORDERED: INSULIN ASPART 100 UNITS/ML 3 ML PEN SC SCH
[2019-11-25] MEDS ORDERED: NORMOSOL-R 1,000 ML IV ONE (01:47)
[2019-11-25] MEDS: LACTATED RINGER'S 1,000 ML IV SCH ×2 (01:50→10:47)
[2019-11-25] MEDS ORDERED: METOCLOPRAMIDE HCL INJ 5 MG/ML 2 ML VIAL IV SCH (02:00)
[2019-11-25] MEDS: ACETAMINOPHEN 1,000 MG/100 ML VIAL IV SCH (04:19)
[2019-11-25 04:32] LABS: Hematocrit (blood only) 22.1 % (37-47); Hemoglobin 7.5 g/dL (12.0-16.0); Mean Corpuscular Hemoglobin 31.8 pg (25-34); Mean Corpuscular Hgb Conc 33.9 g/dL (32-36); Mean Corpuscular Volume 93.6 fL (80-100); Mean Platelet Volume 8.6 fL (7.4-10.4); Platelet Count 349 K/uL (130-400); RDW Coefficient of Variation 17.7 % (11.5-14.5); RDW Standard Deviation 59.3 fL (36.4-46.3); Red Blood Count 2.36 M/uL (4.2-5.4); White Blood Count 21.33 K/uL (4.8-10.8)
[2019-11-25 04:51] LABS: Basophils # (auto) 0.01 K/uL (0-0.2); Immature Granulocytes # (auto) 0.11 K/uL (0.00-0.02); Immature Granulocytes % (auto) 0.5 %; Lymphocytes # (auto) 0.67 K/uL (1.2-3.4); Lymphocytes % (auto) 3.1 %; Monocytes # (auto) 0.48 K/uL (0.11-0.59); Monocytes % (auto) 2.3 %; Neutrophils # (auto) 20.06 K/uL (1.4-6.5); Neutrophils % (auto) 94.1 %; Polychromasia 1+
[2019-11-25 04:54] LABS: Albumin Level 1.3 gm/dl (3.4-5.0); BUN Creatinine Ratio 9.3 (10-20); Calcium 6.9 mg/dl (8.5-10.1); Creatinine Clr Calc Pharmacy 68.2 ml/min; Est GFR (African American) 95.9; Est GFR (Non-African American) 82.8; Magnesium 2.1 mg/dl (1.8-2.4); Potassium 3.8 mmol/L (3.5-5.1)
[2019-11-25 05:02] LABS: Albumin Globulin Ratio 0.4 (0.9-2); Bilirubin,Total 4.6 mg/dl (0.2-1); Globulin 2.9 gm/dl (2.5-4.0); Phosphorus 3.3 mg/dl (2.5-4.9); Total Protein 4.2 gm/dl (6.4-8.2)
[2019-11-25] MEDS: ALBUMIN 25% 100 ML IV SCH ×2 (06:06→06:20)
[2019-11-25] MEDS: LEVOTHYROXINE SODIUM 25 MCG TABLET PO SCH (06:07)
[2019-11-25] MEDS ORDERED: CALCIUM CHLORIDE 10% 1,000 MG in SODIUM CHLORIDE 0.9% 50 ML IV ONE ×2 (06:25→07:40)
--- NOTE | 2019-11-25 07:27 | XRay Report ---
XR chest 1V portable CLINICAL HISTORY: empyema COMPARISON STUDY: Chest CT November 17, 2019. Chest radiograph November 24, 2019. FINDINGS: 2 left-sided chest tubes remain in place. A left subclavian central line is in place. There is no pneumothorax. A small left pleural effusion persists. Airspace opacity and interstitial thicke rosario, greater within the left lung, has increased. There are old right rib fractures. Rightward displ acement of trachea is probably technical. IMPRESSION: 1. Increase in airspace opacity and interstitial thickening, greater within the left lung. The findin gs may reflect pulmonary edema or pneumonia. 2. [address] No pneumothorax. Small left pleural effusion. 3. Rightward displacement of trachea which is probably technical but can be assessed on follow-up frieda st radiograph. ACT 112: Negative or not required by law. Electronically signed by: Bernardino Baig M.D. 11/25/2019 7:25 AM
--- NOTE | 2019-11-25 07:48 | Gastroenterology Progress Note ---
Date of Service November 25, 2019 Assessment & Plan (1) LFT elevation: 63 year old female with complicated hospital course w/ persistently elevated LFTS although transaminases are improving. Initially presented with abd pain, nausea/vomiting which has since resolved. She does have chronic abbie stomatic ulcer s/p RYGB and does report chronic abd pain. She tells me this AM she has ongoing ETOH use, but is vague about her consumption suggesting last use was days prior to admission, a few times a week, less than 10 shots of hard alcohol in a day. - Trend LFTs - Follow liver serologies - Dedicated MRCP once medically stable to leave the floor - Strict ETOH cessation - Less than 2G of tylenol containing products - OP follow up with [facility] - Continue anti-reflux regiment - Acute hep panel pending - Autoimmune studies - ABBIE negative - AMA negative - ASMA positive - Await previously ordered labs for alpha-1 antitrypsin deficiency, Celiac, hemochromatosis, viral hepatitis, etc Thank you for allowing us to participate in the care of this patient. Please call with any acute changes, questions or concerns. Please see addendum below with additional recommendation from my supervising physician. Present on Admission?: Yes Supervising Physician Co-Signing Physician Notes I performed a history and physical examination of the patient, including specifically on physical exam - soft, nontender abdomen. I have discussed the patient's management with Sonia. Please refer to the nurse practitioner's note for the documented findings and plan of care. MRCP once stable to r/o choledocholithiasis. Subjective Pt trasnferred to the ICU, septic shock w/ MRSA bacteremia, acute respiratory failure s/p uncomplicated left thoracoscopy GI to evaluate for persistently elevated LFTs Repeat this AM w/ TB 4.6 but improvement of transaminases w/ AST 58, ALT 35, ALKP 125 She had full liver serology sent at time of consultation which is pending Does not appear she has had dedicated MR biliary imaging Today, she is awake, alert and oriented She is denying any abdominal pain, nausea, vomiting, black/bloody stools/emesis. Review of Systems Constitutional: no fever and no chills Gastrointestinal: no abdominal pain, no nausea, no vomiting, no blood in stools and no melena Physical Exam Constitutional: + ill appearing Neck: trachea midline Respiratory: normal respiratory effort Cardiovascular: Rate/Rhythm: regular rhythm Gastrointestinal (Abdomen): normal bowel sounds, soft, nontender, no hepatosplenomegaly Results & Data Vital Signs (Past 12 Hours) Vital Signs Temp Pulse Pulse Resp BP BP Pulse Ox 11/25/19 06:17 83 18 118/60 115/44 L 94 11/25/19 05:00 91 H 18 110/55 L 106/47 L 11/25/19 04:17 36.5 C 92 H 16 113/56 L 107/35 L 97 11/25/19 03:00 90 16 111/61 101/40 L 98 11/25/19 02:17 11/25/19 02:11 96 H 20 96 11/25/19 02:00 95 H 20 125/43 L 124/42 L 93 11/25/19 01:00 90 16 115/60 110/60 98 11/25/19 00:03 99 H 21 96 11/25/19 00:00 36.4 C L 94 H 16 113/64 101/52 L 95 11/24/19 22:23 81 20 98 11/24/19 22:17 100 H 16 91/40 L 105/61 96 11/24/19 21:17 89 12 106/64 101/40 L 97 11/24/19 20:17 96 H 14 106/60 106/42 L 100 11/24/19 20:00 91 H Pulse Ox 11/25/19 06:17 94 11/25/19 05:00 11/25/19 04:17 97 11/25/19 03:00 11/25/19 02:17 93 11/25/19 02:11 11/25/19 02:00 11/25/19 01:00 11/25/19 00:03 11/25/19 00:00 98 11/24/19 22:23 11/24/19 22:17 98 11/24/19 21:17 97 11/24/19 20:17 100 11/24/19 20:00
--- NOTE | 2019-11-25 08:00 | Critical Care Progress Note ---
Date of Service November 25, 2019 Assessment & Plan (1) Acute hypoxemic respiratory failure: Impression: 63-year-old female with history of diabetes hypertension and prior bariatric surgery presenting with nausea and vomiting found to have incidentally persistent bacteremia with right septic knee. She is brought to the ICU post video-assisted thoracoscopic washout for complicated parapneumonic effusion. 24-hour events: Patient admitted to the ICU after undergoing decortication. Central line was placed. Vasopressors were initiated. She was weaned off noninvasive positive pressure ventilation. She is on low-dose pressors currently. Recommendations: 1. Severe sepsis with septic shock: Wean norepinephrine as tolerated. Relative adrenal insufficiency confirmed with cortisol of 16 in the setting of pressor use. Initiate Florinef and hydrocortisone. 2. Persistent MRSA bacteremia: Surveillance cultures negative to date but relatively young. Continue daptomycin per ID. Interestingly, the patient did have an atrial septal aneurysm with a hemodynamically insignificant shunt. Unclear if repeat echocardiogram is indicated although it would likely not change duration of antibiotics given the septic knee. May reconsider if the patient remains persistently bacteremic 3. Empyema: Chest tube management per thoracic surgery. 4. Hypoxemic respiratory failure: Weaning oxygen as tolerated. Will need to initiate diuresis once the patient is off vasopressors 5. Anemia: Unclear etiology. It is related that this was a prior issue. Given gastric bypass consider the possibility of pernicious anemia. Check B12 and folate as well as reticulocyte count. Anemia of chronic disease also possible. Posttransfusion hemolysis labs such as haptoglobin would be unreliable. Iron studies will also not be reliable. Check reticulocyte count 6. Hyponatremia: Currently stable. The patient appears mildly hypervolemic currently. Trend for now. SIDH is possible 7. Abnormal LFTs: AST and ALT improving however bilirubin remains elevated. Appreciate GI consultants 8. Hypocalcemia, hypomagnesemia: Continue replacement protocols 9. Septic left knee: We will need to go to the OR with orthopedics for washout at some point. She is clinically improved today and would potentially tolerate anesthesia. Timing per orthopedics and anesthesia 10. Mild hyperglycemia: Sliding scale insulin per protocol. May be aggravated by steroids Patient remains critically ill at this point time with significant possibility of organ system dysfunction. Keep in ICU pending hemodynamic stability. Discussed with ICU nurse at bedside and on multidisciplinary rounds. Total of 40 minutes critical care time (2) Pleural effusion: (3) Septic shock: Subjective Remains on pressors overnight. Received additional IV fluids and albumin. And weaned off BiPAP. Awake alert and conversant this morning. Remains on low-dose levo fed. Denies specific complaints including pain. Review of Systems Review of Systems: Unchanged from prior Physical Exam Eyes: PERRL Neck: trachea midline, no thyromegaly Respiratory: Coarse rhonchi bilaterally. No wheezing. Small air leak from chest tube. Outputs noted Cardiovascular: RRR, no murmur, no edema Gastrointestinal (Abdomen): normal bowel sounds, soft, nontender, no hepatosplenomegaly Musculoskeletal: Left knee effusion again noted Skin: no rashes, warm and dry Results & Data Vital Signs (Past 12 Hours) Vital Signs Temp Pulse Pulse Resp BP BP Pulse Ox 11/25/19 06:17 83 18 118/60 115/44 L 94 11/25/19 05:00 91 H 18 110/55 L 106/47 L 11/25/19 04:17 36.5 C 92 H 16 113/56 L 107/35 L 97 11/25/19 03:00 90 16 111/61 101/40 L 98 11/25/19 02:17 11/25/19 02:11 96 H 20 96 11/25/19 02:00 95 H 20 125/43 L 124/42 L 93 11/25/19 01:00 90 16 115/60 110/60 98 11/25/19 00:03 99 H 21 96 11/25/19 00:00 36.4 C L 94 H 16 113/64 101/52 L 95 11/24/19 22:23 81 20 98 11/24/19 22:17 100 H 16 91/40 L 105/61 96 11/24/19 21:17 89 12 106/64 101/40 L 97 11/24/19 20:17 96 H 14 106/60 106/42 L 100 11/24/19 20:00 91 H Pulse Ox 11/25/19 06:17 94 11/25/19 05:00 11/25/19 04:17 97 11/25/19 03:00 11/25/19 02:17 93 11/25/19 02:11 11/25/19 02:00 11/25/19 01:00 11/25/19 00:03 11/25/19 00:00 98 11/24/19 22:23 11/24/19 22:17 98 11/24/19 21:17 97 11/24/19 20:17 100 11/24/19 20:00 Laboratory Results 11/25/19 04:16 11/25/19 04:16 Diagnostic Findings Chest x-ray from today was independently reviewed. There is increased vascular congestion. Chest tubes remain in place. Mild cardiomegaly. Coding Level of Care Code Critical Care 1st 30-74 mins Diagnoses Acute hypoxemic respiratory failure J96.01 Pleural effusion J90 Septic shock A41.9; R65.21 Time Spent (min) 38 Comment 38 minutes critical care time evaluating life-threatening illness.
--- NOTE | 2019-11-25 08:00 | Anesthesiology Progress Note ---
Date of Service November 25, 2019 Anesthesia Post Procedure Vital Signs Vital Signs: Temp Pulse Pulse Pulse Resp BP BP 11/25/19 06:17 83 18 118/60 11/25/19 05:00 91 H 18 110/55 L 11/25/19 04:17 36.5 C 92 H 16 113/56 L 11/25/19 03:00 90 16 111/61 11/25/19 02:17 11/25/19 02:11 96 H 20 11/25/19 02:00 95 H 20 125/43 L 11/25/19 01:00 90 16 115/60 11/25/19 00:03 99 H 21 11/25/19 00:00 36.4 C L 94 H 16 113/64 11/24/19 22:23 81 20 11/24/19 22:17 100 H 16 91/40 L 11/24/19 21:17 89 12 106/64 11/24/19 20:17 96 H 14 106/60 11/24/19 20:00 91 H 11/24/19 19:17 36.4 C L 103 H 21 11/24/19 18:21 91 H 23 11/24/19 17:06 36.2 C L 94 H 24 11/24/19 16:56 89 21 11/24/19 16:46 94 H 21 11/24/19 16:36 36.2 C L 93 H 12 11/24/19 16:35 29 H 11/24/19 16:30 89 24 11/24/19 12:48 36.7 C 96 H 20 111/58 L 11/24/19 12:06 36.3 C L 94 H 20 102/57 L 11/24/19 11:31 36.6 C 101 H 16 11/24/19 10:07 98 H BP Pulse Ox Pulse Ox 11/25/19 06:17 115/44 L 94 94 11/25/19 05:00 106/47 L 11/25/19 04:17 107/35 L 97 97 11/25/19 03:00 101/40 L 98 11/25/19 02:17 93 11/25/19 02:11 96 11/25/19 02:00 124/42 L 93 11/25/19 01:00 110/60 98 11/25/19 00:03 96 01/21/20 00:00 101/52 L 95 98 11/24/19 22:23 98 11/24/19 22:17 105/61 96 98 11/24/19 21:17 101/40 L 97 97 11/24/19 20:17 106/42 L 100 100 11/24/19 20:00 11/24/19 19:17 105/46 L 95 11/24/19 18:21 96 11/24/19 17:06 85/39 L 93 11/24/19 16:56 83/38 L 95 11/24/19 16:46 82/49 L 95 11/24/19 16:36 87/51 L 96 11/24/19 16:35 98 11/24/19 16:30 94 11/24/19 12:48 96 11/24/19 12:06 102/57 L 94 11/24/19 11:31 105/59 L 94 11/24/19 10:07 Pain Intensity Back: Pain Intensity: 8 Notes Mental Status: alert / awake / arousable and participated in evaluation Patient Amnestic to Procedure: Yes Nausea / Vomiting: adequately controlled Pain: adequately controlled Airway Patency, RR, SpO2: stable & adequate BP & HR: stable & adequate Hydration State: stable & adequate Anesthetic Complications: no major complications apparent and Pt Satisfied with anesthetic care
[2019-11-25] MEDS ORDERED: SODIUM CHLORIDE 0.9% 250 ML IV PRN (08:03)
--- NOTE | 2019-11-25 08:14 | Hospitalist Progress Note ---
Date of Service November 25, 2019 Assessment & Plan (1) Septic shock: 63-year-old female with history of diabetes hypertension and prior bariatric surgery presenting with nausea and vomiting found to have incidentally persistent bacteremia with right septic knee. She was brought to the ICU post VATS washout for complicated parapneumonic effusion. She is on low-dose pressors currently. Hyperbilirubinemia: Nausea/Vomiting Hyperbilirubinemia H/O RYGB with anastomotic ulcer --CT ABD:Displaced fractures of the posterior left 10th and 11th ribs, which are acute appearing. Small left pleural effusion new from prior. Minimal complexity suggested dependently while the majority of this effusion is water density. It is difficult to exclude a minimal hemothorax component. Left basilar atelectasis with mucous plugging. No evidence of acute intra-abdominal injury. [place]-en-Y gastric bypass without evidence of complication. Severe hepatic steatosis. --ABD USD:Surgically absent gallbladder. Hepatic steatosis. No significant ductal dilatation --Since CBD is nondilated, no plan for MRCP --Continue PPI, Carafate --Monitor LFTs --Chronic abdominal pain--with history of chronic marginal ulcer--May need possible revision of her RYGB. --Patient to follow-up with bariatric surgeon upon discharge --Poor appetite--slowly improving --Thoracoscopy 11/24 Sepsis MRSA Bacteremia Left knee septic arthritis --MRI L spine:Limited study technically due to severe patient motion. Broad- based disc herniation L3-L4 with moderate narrowing of the spinal canal and moderate to significant narrowing of the neural foramina bilaterally. Mild broad-based bulging disc L4-L5. --MRI T Spine:No significant compromise of the spinal canal. Compromised exam due to patient motion. No evidence for compression deformity or bone marrow replacing process. Slightly complex left pleural effusion raising the possibility of a left hemothorax/left pleural effusion. Blood Cx: MRSA Urine-E Coli and Kleb Oxytoca-Both pansensitive ECHO: No visualized valvular disease synovial fluid culture: MRSA IV Vancomycin changed to Daptomycin Monitor CPK levels while on IV daptomycin Continue IV daptomycin Left loculated pleural effusion --MRI:No significant compromise of the spinal canal. Compromised exam due to patient motion. No evidence for compression deformity or bone marrow replacing process. Slightly complex left pleural effusion raising the possibility of a left hemothorax/left pleural effusion. --CXR:Large left pleural effusion with complete opacification of the left hemithorax and non-aeration of the left lung. Congestive changes in the right lung. --Thoracoscopy Left Knee Joint Swelling: likely Source of Bacteremia Knee X ray:Soft tissue swelling without acute fracture or dislocation. Tricompartmental osteoarthritis as above with moderate joint effusion. S/P left knee arthrocentesis on 11/22/19 Synovial fluid Cx: MRSA On Daptomycin as above Needs arthroscopy and I&D of L knee eventually Pain control UTI: Urine Cx: E.coli, gram-negative bacilli, Kleb Oxytoca On Rocephin Day #3 Diarrhea Check stool for C. difficile if develops recurrence of diarrhea Hypotension:--Chronic Likely worsened due to dehydration Pressors, Florinef, IV Hydrocortisone Electrolyte abnormalities: Hypokalemia/Hypomagnesemia/Hypophosphatemia Likely due to GI loses Replace electrolytes as needed DM II Last Hb A1C:5.4 Hypoglycemia noted ISS while hospitalized Monitor BGs Peptic ulcer disease Continue Nexium and sucralfate Recent pulmonary nodule. Follow up repeat CT scan as outpatient Alcoholism Denies any recent alcohol drink Continue thiamine, folic acid Counseled to quit completely H/O Falls Rib fractures secondary to fall Pain control Incentive Spirometry H/O Obesity H/O Gastric Bypass DVT Px: SCDsRe: Procedure today Code status: Full Code Labs checked DISPOSITION: In ICU on pressors PT/OT prior to discharge ROS-Offers little history Physical Exam Gen-NAD, Afebrile Head-NCAT, EOMI, PERRLA, Anicteric Sclera, No Posterior Pharyngeal Erythema Neck-Supple, No JVD, No Thyromegaly, No Masses, No LAD, No Bruits Lungs-Clear to Auscultation Bilaterally, No Rales, No Rhonchi, No Wheezing, No Crepitus Chest-No S4, +S1, +S2, No S3, No Murmurs, No Rubs, No Gallops, No Ectopy, L Chest Tubes x 2 Abdomen-Soft, Bowel Sounds Present, Non Tender, Non Distended, No Hepatomegaly, No Splenomegaly, No Palpable Masses, No Rebound, No Rigidity, No Guarding Musculoskeletal-Full Range of Motion Bilaterally, No CVAT Extremities-No Cyanosis, No Clubbing, + Edema, +SCDs Nuero-Cranial Nerves II-XII grossly intact, Motor WNL, DTRs WNL, Strength WNL, Non Focal Psych-Flat Results & Data Vital Signs (Past 12 Hours) Vital Signs Temp Pulse Pulse Resp BP BP Pulse Ox 11/25/19 06:17 83 18 118/60 115/44 L 94 11/25/19 05:00 91 H 18 110/55 L 106/47 L 11/25/19 04:17 36.5 C 92 H 16 113/56 L 107/35 L 97 11/25/19 03:00 90 16 111/61 101/40 L 98 11/25/19 02:17 11/25/19 02:11 96 H 20 96 11/25/19 02:00 95 H 20 125/43 L 124/42 L 93 11/25/19 01:00 90 16 115/60 110/60 98 11/25/19 00:03 99 H 21 96 11/25/19 00:00 36.4 C L 94 H 16 113/64 101/52 L 95 11/24/19 22:23 81 20 98 11/24/19 22:17 100 H 16 91/40 L 105/61 96 11/24/19 21:17 89 12 106/64 101/40 L 97 11/24/19 20:17 96 H 14 106/60 106/42 L 100 Pulse Ox 11/25/19 06:17 94 11/25/19 05:00 11/25/19 04:17 97 11/25/19 03:00 11/25/19 02:17 93 11/25/19 02:11 11/25/19 02:00 11/25/19 01:00 11/25/19 00:03 11/25/19 00:00 98 11/24/19 22:23 11/24/19 22:17 98 11/24/19 21:17 97 11/24/19 20:17 100
[2019-11-25] MEDS: SUCRALFATE 1 GM TAB PO SCH ×4 (08:15→20:15)
[2019-11-25] MEDS: INSULIN ASPART 100 UNITS/ML 3 ML PEN SC SCH ×5 (08:15→20:12)
[2019-11-25] MEDS: GABAPENTIN 300 MG CAP PO SCH ×3 (08:20→20:15)
[2019-11-25] MEDS: CYANOCOBALAMIN 500 MCG TABLET (VITAMIN B-12) PO SCH (08:20)
[2019-11-25] MEDS: THIAMINE HCL 100 MG TAB PO SCH (08:20)
[2019-11-25] MEDS: POT PHOSPHATE MONOBASIC W/ SOD TAB PO SCH ×4 (08:20→20:11)
[2019-11-25] MEDS: FLUDROCORTISONE ACETATE 0.1 MG TAB PO SCH (08:20)
[2019-11-25] MEDS: DOCUSATE SODIUM 100 MG CAP PO SCH ×2 (08:21→20:15)
[2019-11-25] MEDS: miSOPROStoL 100 MCG TAB PO SCH ×4 (08:21→20:14)
[2019-11-25] MEDS: FOLIC ACID 1 MG TAB PO SCH (08:23)
[2019-11-25] MEDS: PANTOprazole 40 MG TAB PO SCH (08:23)
[2019-11-25] MEDS: MAGNESIUM CHLORIDE 64MG DELAYED REL TAB PO SCH ×2 (08:24→20:28)
[2019-11-25 08:27] LABS: Reticulocyte % 3.5 % (0.5-2.0); Reticulocytes # 0.08 10^6/uL (0.02-0.10)
[2019-11-25] MEDS: OXYCODONE HCL IR 5 MG TAB (IMMEDIATE RELEASE) PO PRN (08:32)
[2019-11-25] MEDS: MoRPHine SULFATE 2 MG/ML CARP IV PRN ×2 (09:08→14:04)
[2019-11-25 09:15] LABS: Vitamin B12 > 2000 pg/ml (211-911)
[2019-11-25] MEDS: HYDROCORTISONE SOD 50 MG in SYRINGE 0 ML IV SCH ×3 (10:05→22:01)
--- NOTE | 2019-11-25 10:12 | Internal Medicine Consult Note ---
Date of Consultation November 25, 2019 Assessment & Plan (1) Encounter for rehabilitation evaluation: She will need extended recovery time given the sepsis with multiple foci of infection. She continues to require additional acute care investigation and care, but once complete she is an excellent candidate for the rehab hospital environment. She will likely require extended period of IV antibiotics. [facility] has a respiratory therapist who will help with the recovery from the empyema. Daily medical oversight and laboratory monitoring is more available in the rehab hospital, which is required given her complexity. Will track her progress and anticipate her admission when medically ready. History of Present Illness Reason for Consultation: High Risk Rehab Patient Attending Physician: Xavier Maurice DO History of Present Illness Ms. Kelley lives in [place] in a single story residence with two steps to enter. Developed sepsis secondary to MRSA. Left knee and empyema. She underwent a VATS procedure. She is now in the ICU with pressor support and receiving a transfusion. History is significant for a gastric bypass procedure and HTN/DM. She is awake, alert and cooperative. She is anxious to improve and return home. She will have help at home. Allergies Allergy/AdvReac Type Severity Reaction Status Date / Time Sulfa (Sulfonamide Allergy Severe FACE/THROAT Verified 11/17/19 02:12 Antibiotics) SWELL UP Home Medications Home Medications Medication Instructions Recorded Confirmed Type cyanocobalamin (vitamin B-12) 500 mcg PO DAILY 08/16/19 11/17/19 History [Vitamin B-12] esomeprazole magnesium [Nexium] 40 mg PO DAILY 08/16/19 11/17/19 History folic acid 1 mg PO DAILY 08/16/19 11/17/19 History misoprostol [Cytotec] 100 mcg PO QID 08/16/19 11/17/19 History thiamine HCl (vitamin B1) [Vitamin 100 mg PO QAM #30 tab 08/22/19 11/17/19 Rx B-1] meclizine 25 mg PO Q8H PRN #30 tab 09/29/19 11/17/19 Rx duloxetine 30 mg PO BID 11/17/19 11/17/19 History fludrocortisone 0.1 mg PO DAILY 11/17/19 11/17/19 History gabapentin 300 mg PO TID 11/17/19 11/17/19 History levothyroxine 25 mcg PO DAILY 11/17/19 11/17/19 History nortriptyline 25 mg PO HS 11/17/19 11/17/19 History sucralfate 1 g PO ACHS 11/17/19 11/17/19 History Patient History Medical History Acute alcohol abuse (Chronic) Alcohol abuse Anemia, iron deficiency (Chronic) Arthritis (Chronic) Bacteremia DVT prophylaxis Esophagus disorder Gram positive sepsis Hypokalemia Small bowel obstruction (Resolved) Ulcer GI Surgical History History of incision and drainage (08/18/19) Left Axillary Abscess Incision and Drainage Dr. Perdue 08/18/19 Status post appendectomy (Chronic) Status post cholecystectomy (Chronic) Status post gastric bypass for obesity (Chronic) Status post hysterectomy (Chronic) Family History Other No pertinent family history in first degree relatives Social History Preferred Language: Surinamese Communication Ability: Effective Senior Agricultural Assistant Required: No Beliefs That Will Affect Care: None marital status: Current Living Situation: Other Current Living Situation Comment: Friend Feels Safe at Home: Yes Safety Concerns: Feels Safe At This Time Smoking Status: Former smoker Tobacco Type: cigarettes ; Second Hand Exposure: Yes ; Hx Alcohol Use: Yes Alcohol type: beer and hard liquor Hx Substance Use: No Review of Systems Review of Systems: No new target Physical Exam Physical Exam: Vitals--reviewed HEENT--no focal changes. Pulmonary--no distress--left chest tubes noted Cardio--perfusion is good--no edema GI--functional--no target pain Musculo--no worsening left knee pain Neuro--nonfocal Results & Data Vital Signs (Past 12 Hours) Vital Signs Temp Pulse Pulse Resp BP BP BP 11/25/19 09:33 36.4 C L 91 H 18 106/46 L 11/25/19 09:18 36.4 C L 92 H 20 105/45 L 11/25/19 09:01 36.3 C L 88 18 94/47 L 11/25/19 08:30 90 15 11/25/19 08:08 84 6 L 109/50 L 11/25/19 08:06 95 H 26 H 81/40 L 11/25/19 08:04 92 H 21 103/54 L 11/25/19 08:02 87 19 115/59 L 11/25/19 08:00 36.4 C L 86 24 11/25/19 07:30 90 19 11/25/19 07:08 83 17 117/56 L 11/25/19 07:01 83 16 11/25/19 06:17 83 18 118/60 115/44 L 11/25/19 05:00 91 H 18 110/55 L 106/47 L 11/25/19 04:17 36.5 C 92 H 16 113/56 L 107/35 L 11/25/19 03:00 90 16 111/61 101/40 L 11/25/19 02:17 11/25/19 02:11 96 H 20 11/25/19 02:00 95 H 20 125/43 L 124/42 L 11/25/19 01:00 90 16 115/60 110/60 11/25/19 00:03 99 H 21 11/25/19 00:00 36.4 C L 94 H 16 113/64 101/52 L 11/24/19 22:23 81 20 11/24/19 22:17 100 H 16 91/40 L 105/61 Pulse Ox Pulse Ox 11/25/19 09:33 99 11/25/19 09:18 99 11/25/19 09:01 100 11/25/19 08:30 94 11/25/19 08:08 94 11/25/19 08:06 90 11/25/19 08:04 92 11/25/19 08:02 93 11/25/19 08:00 94 11/25/19 07:30 92 11/25/19 07:08 92 11/25/19 07:01 92 11/25/19 06:17 94 94 11/25/19 05:00 11/25/19 04:17 97 97 11/25/19 03:00 98 11/25/19 02:17 93 11/25/19 02:11 96 11/25/19 02:00 93 11/25/19 01:00 98 11/25/19 00:03 96 11/25/19 00:00 95 98 11/24/19 22:23 98 11/24/19 22:17 96 98
[2019-11-25] MEDS: DAPTOmycin 450 MG in SYRINGE 0 ML IV SCH (10:46)
[2019-11-25] MEDS: ENOXAPARIN INJ 40 MG/0.4 ML SYR SQ SCH (10:46)
[2019-11-25] MEDS ORDERED: HYDROCORTISONE SOD 50 MG in SYRINGE 0 ML IV SCH (12:00)
[2019-11-25 12:16] LABS: iSTAT Hematocrit 25 % (37-47); iSTAT Hemoglobin 8.5 g/dl (12.0-16.0); iSTAT Potassium 3.4 mmol/L (3.3-5.0); iSTAT Sodium 135 mmol/L (135-144)
[2019-11-25 12:17] LABS: iSTAT Art Bld Gas pCO2 Correct 45 mmHg (35-46); iSTAT Arterial Blood Gas HCO3 21 meg/L (19-24); iSTAT Arterial Blood Gas pCO2 45 mmHg (35-46); iSTAT Arterial Blood Gas pH 7.28 (7.35-7.45); iSTAT Arterial Blood Gas pO2 72 mmHg (80-95); iSTAT Arterial Blood Gas pO2 C 72; iSTAT Carbon Dioxide 22 mmol/L (24-31)
[2019-11-25 12:18] LABS: iSTAT Allen Test Not Performed; iSTAT Sample Type Arterial
[2019-11-25 12:19] LABS: iSTAT Site Art Line
[2019-11-25 12:20] LABS: iSTAT SpO2 100
--- NOTE | 2019-11-25 13:06 | Infectious Disease Progress Nt ---
Date of Service November 25, 2019 Assessment & Plan (1) Gram positive sepsis: continue dapto, multiple blood cultures + MRSA, 11/24 negative at 24 , unclear initial source, multiple areas now growing staph - knee, chest abscess. echo negative, may ultimately require repeat but regardless she will receive prolonged abx due to chest and knee infections. will continue dapto for now. ortho following, knee culture growing MRSA as well. will need prolonged course of IV abx, range of 6 weeks, will need weekly cbc,cmp, esr, cpk while on abx. Subjective pt s/p chest tube, thoracic surgery, drainge of empyema and drainage of chest wall abscess, lung cultures pending, chest cultures growing staph. multiple blood cultures growing mrsa. she remains on dapto, she is afebrile. had resp distress post op transferred to ICU, placed on pressors, improving. wbc elevated to 21 today. remains on ctx for + urine culture. Results & Data Vital Signs (Past 12 Hours) Vital Signs Temp Pulse Pulse Resp BP BP BP 11/25/19 12:45 89 16 108/55 L 114/48 L 11/25/19 12:42 36.4 C L 87 16 114/48 L 11/25/19 12:30 89 21 11/25/19 12:03 36.4 C L 89 16 108/50 L 11/25/19 12:00 36.4 C L 89 19 11/25/19 11:03 36.3 C L 85 20 110/49 L 11/25/19 11:01 97 H 17 11/25/19 10:30 87 21 11/25/19 10:03 36.3 C L 85 17 96/45 L 11/25/19 09:33 36.4 C L 91 H 18 106/46 L 11/25/19 09:18 36.4 C L 92 H 20 105/45 L 11/25/19 09:01 36.3 C L 88 18 94/47 L 11/25/19 09:00 88 23 11/25/19 08:30 90 15 11/25/19 08:06 95 H 26 H 81/40 L 11/25/19 08:04 92 H 21 103/54 L 11/25/19 08:02 87 19 115/59 L 11/25/19 08:00 36.4 C L 88 24 11/25/19 07:30 90 19 11/25/19 07:08 83 17 117/56 L 11/25/19 07:01 83 16 11/25/19 06:17 83 18 118/60 115/44 L 11/25/19 05:00 91 H 18 110/55 L 106/47 L 11/25/19 04:17 36.5 C 92 H 16 113/56 L 107/35 L 11/25/19 03:00 90 16 111/61 101/40 L 11/25/19 02:17 11/25/19 02:11 96 H 20 11/25/19 02:00 95 H 20 125/43 L 124/42 L Pulse Ox Pulse Ox 11/25/19 12:45 96 11/25/19 12:42 96 11/25/19 12:30 89 L 11/25/19 12:03 92 11/25/19 12:00 96 11/25/19 11:03 98 11/25/19 11:01 11/25/19 10:30 94 11/25/19 10:03 98 11/25/19 09:33 99 11/25/19 09:18 99 11/25/19 09:01 100 11/25/19 09:00 100 11/25/19 08:30 94 11/25/19 08:06 90 11/25/19 08:04 92 11/25/19 08:02 93 11/25/19 08:00 94 11/25/19 07:30 92 11/25/19 07:08 92 11/25/19 07:01 92 11/25/19 06:17 94 94 11/25/19 05:00 11/25/19 04:17 97 97 11/25/19 03:00 98 11/25/19 02:17 93 11/25/19 02:11 96 11/25/19 02:00 93 PG Care Time/CCT Total # of Minutes Spent Total Time Spent with Patient: Total time spent is greater than 50% in coordination of care (as documented) at patient's floor/unit and/or counseling patient:
[2019-11-25 13:57] LABS: Hematocrit (blood only) 27.9 % (37-47); Hemoglobin 9.4 g/dL (12.0-16.0)
--- NOTE | 2019-11-25 14:15 | Orthopedic Progress Note ---
Date of Service November 25, 2019 Assessment & Plan (1) Septic arthritis of knee, left: I have spoken to Dr. Bergeron today as well as Dr. Miranda. Patient is doing well postoperatively after Dr. Miranda's procedure yesterday. They both feel patient would be stable for the left knee arthroscopic debridement. Patient is in agreement to undergo the arthroscopic I/D. It is felt that the arthroscopic debridement would be a better option for the patient rather than serial aspirations especially since she is progressing well post op. I will discuss this with [facility] physicians and plan to add her on the OR schedule tomorrow for arthroscopic I&D as long as [facility] physician is available. ` Subjective . Patient sleeping upon arrival. She is easily awoken. States she is feeling fairly comfortable at this point in time. We discussed on how her left knee was feeling. She states at rest that it is not bothering her much however when she tries to bend it or put weight on it she continues to have moderate to severe pain. She has no other complaints at this time. Physical Exam Physical Exam: Left knee with effusion. Effusion is not tense and she has some mild tenderness on palpation throughout. Minimal range of motion of the knee causes her discomfort. It is not overtly erythematous but is warm to the touch or so compared to the right. Calves are soft and nontender. Results & Data Vital Signs (Past 12 Hours) Vital Signs Temp Pulse Pulse Resp BP BP BP 11/25/19 13:08 83 16 107/56 L 11/25/19 13:00 84 21 11/25/19 12:45 89 16 108/55 L 114/48 L 11/25/19 12:42 36.4 C L 87 16 114/48 L 11/25/19 12:30 89 21 11/25/19 12:03 36.4 C L 89 16 108/50 L 11/25/19 12:00 36.4 C L 89 19 11/25/19 11:03 36.3 C L 85 20 110/49 L 11/25/19 11:01 97 H 17 11/25/19 10:30 87 21 11/25/19 10:03 36.3 C L 85 17 96/45 L 11/25/19 09:33 36.4 C L 91 H 18 106/46 L 11/25/19 09:18 36.4 C L 92 H 20 105/45 L 11/25/19 09:01 36.3 C L 88 18 94/47 L 11/25/19 09:00 88 23 11/25/19 08:30 90 15 11/25/19 08:06 95 H 26 H 81/40 L 11/25/19 08:04 92 H 21 103/54 L 11/25/19 08:02 87 19 115/59 L 11/25/19 08:00 36.4 C L 88 24 11/25/19 07:30 90 19 11/25/19 07:08 83 17 117/56 L 11/25/19 07:01 83 16 11/25/19 06:17 83 18 118/60 115/44 L 11/25/19 05:00 91 H 18 110/55 L 106/47 L 11/25/19 04:17 36.5 C 92 H 16 113/56 L 107/35 L 11/25/19 03:00 90 16 111/61 101/40 L 11/25/19 02:17 Pulse Ox Pulse Ox 11/25/19 13:08 94 11/25/19 13:00 95 11/25/19 12:45 96 11/25/19 12:42 96 11/25/19 12:30 89 L 11/25/19 12:03 92 11/25/19 12:00 96 11/25/19 11:03 98 11/25/19 11:01 11/25/19 10:30 94 11/25/19 10:03 98 11/25/19 09:33 99 11/25/19 09:18 99 11/25/19 09:01 100 11/25/19 09:00 100 11/25/19 08:30 94 11/25/19 08:06 90 11/25/19 08:04 92 11/25/19 08:02 93 11/25/19 08:00 94 11/25/19 07:30 92 11/25/19 07:08 92 11/25/19 07:01 92 11/25/19 06:17 94 94 11/25/19 05:00 11/25/19 04:17 97 97 11/25/19 03:00 98 11/25/19 02:17 93 Laboratory Results Laboratory Results WBC 21.33 K/uL (4.8-10.8) H 11/25/19 04:16 RBC 2.36 M/uL (4.2-5.4) L 11/25/19 04:16 Hgb 9.4 g/dL (12.0-16.0) L 11/25/19 13:48 POC Hgb 8.5 g/dl (12.0-16.0) L 11/24/19 16:52 Hct 27.9 % (37-47) L 11/25/19 13:48 POC Hct 25 % (37-47) L 11/24/19 16:52 MCV 93.6 fL (80-100) 11/25/19 04:16 MCH 31.8 pg (25-34) 11/25/19 04:16 MCHC 33.9 g/dL (32-36) 11/25/19 04:16 RDW Std Deviation 59.3 fL (36.4-46.3) H 11/25/19 04:16 RDW Coeff of Taye 17.7 % (11.5-14.5) H 11/25/19 04:16 Plt Count 349 K/uL (130-400) 11/25/19 04:16 MPV 8.6 fL (7.4-10.4) 11/25/19 04:16 Immature Gran % (Auto) 0.5 % 11/25/19 04:16 Neut % (Auto) 94.1 % 11/25/19 04:16 Lymph % (Auto) 3.1 % 11/25/19 04:16 Dupage % (Auto) 2.3 % 11/25/19 04:16 Eos % (Auto) 0.0 % 11/25/19 04:16 Baso % (Auto) 0.0 % 11/25/19 04:16 Reticulocyte % (Auto) 3.5 % (0.5-2.0) H 11/25/19 08:17 Immature Gran # (Auto) 0.11 K/uL (0.00-0.02) H 11/25/19 04:16 Neut # (Auto) 20.06 K/uL (1.4-6.5) H 11/25/19 04:16 Lymph # (Auto) 0.67 K/uL (1.2-3.4) L 11/25/19 04:16 [place] # (Auto) 0.48 K/uL (0.11-0.59) 11/25/19 04:16 Eos # (Auto) 0.00 K/uL (0-0.5) 11/25/19 04:16 Baso # (Auto) 0.01 K/uL (0-0.2) 11/25/19 04:16 Reticulocyte # 0.08 10^6/uL (0.02-0.10) 11/25/19 08:17 Toxic Vacuolation Occasional 11/17/19 01:57 Dohle Bodies 1+ 11/18/19 05:55 Polychromasia 1+ 11/25/19 04:16 Anisocytosis Present 11/18/19 05:55 Target Cells 1+ 11/24/19 06:24 Rouleaux 1+ 11/17/19 01:57 ESR 63 mm/hr (0-21) H 11/23/19 06:48 PT 12.0 Seconds (9.0-12.0) 11/19/19 12:46 INR 1.2 (0.9-1.1) H 11/19/19 12:46 Specimen Type Arterial 11/24/19 16:52 Sample Site Art Line 11/24/19 16:52 Patient Temperature 37.0 11/24/19 16:52 POC pH 7.28 (7.35-7.45) L 11/24/19 16:52 POC pCO2 45 mmHg (35-46) 11/24/19 16:52 POC pO2 72 mmHg (80-95) L 11/24/19 16:52 POC HCO3 21 mireille/L (19-24) 11/24/19 16:52 POC Total CO2 22 mmol/L (24-31) L 11/24/19 16:52 POC Base Excess -6.0 mireille/L (-9-1.8) 11/24/19 16:52 POC O2 Saturation 92 11/24/19 16:52 O2 Sat Pulse Oximetry 100 11/24/19 16:52 ABG pH (Temp Correct) 7.280 (7.35-7.45) L 11/24/19 16:52 ABG pCO2 (Temp Corrct 45 mmHg (35-46) 11/24/19 16:52 POC ABG pO2 at Pt Temp 72 11/24/19 16:52 Juan Test Not Performed 11/24/19 16:52 O2 Delivery Device BIPAP 11/24/19 16:52 POC O2 Rate 12 11/24/19 16:52 EPAP 5 11/24/19 16:52 IPAP 12 11/24/19 16:52 POC Sodium 135 mmol/L (135-144) 11/24/19 16:52 Sodium 132 mmol/L (136-145) L 11/25/19 04:16 POC Potassium 3.4 mmol/L (3.3-5.0) 11/24/19 16:52 Potassium 3.8 mmol/L (3.5-5.1) 11/25/19 04:16 Chloride 102 mmol/L (98-107) 11/25/19 04:16 Carbon Dioxide 23 mmol/L (21-32) 11/25/19 04:16 Anion Gap 7.0 (3-11) 11/25/19 04:16 BUN 7 mg/dl (7-18) 11/25/19 04:16 Creatinine 0.77 mg/dl (0.6-1.2) 11/25/19 04:16 Est Cr Clr Drug Dosing 68.2 ml/min 11/25/19 04:16 Est GFR ( Amer) 95.9 11/25/19 04:16 Est GFR (Non-Af Amer) 82.8 11/25/19 04:16 BUN/Creatinine Ratio 9.3 (10-20) L 11/25/19 04:16 Glucose 143 mg/dl (70-99) H 11/25/19 04:16 POC Glucose 131 mg/dl (70-99) H 11/24/19 21:06 POC Glucose (other) 144 mg/dl (70-99) H 11/25/19 11:21 Estimat Average Glucose 94 mg/dl 11/18/19 05:55 Hemoglobin A1c 4.9 % (4.5-5.6) 11/18/19 05:55 Lactate 1.2 mmol/L (0.4-2.0) 11/20/19 22:07 Calcium 6.9 mg/dl (8.5-10.1) L 11/25/19 04:16 Phosphorus 3.3 mg/dl (2.5-4.9) D 11/25/19 04:16 Magnesium 2.1 mg/dl (1.8-2.4) 11/25/19 04:16 Iron 12 mcg/dl (35-150) L 11/20/19 05:40 TIBC 70 mcg/dl (250-450) L 11/20/19 05:40 Transferrin 59 mg/dl (200-360) L 11/20/19 05:40 Ferritin 385.9 ng/ml (8-388) 11/19/19 12:46 Total Bilirubin 4.6 mg/dl (0.2-1) H 11/25/19 04:16 Direct Bilirubin 3.1 mg/dl (0-0.2) H 11/24/19 17:45 AST 58 U/L (15-37) H 11/25/19 04:16 ALT 35 U/L (12-78) 11/25/19 04:16 Alkaline Phosphatase 125 U/L (45-117) H 11/25/19 04:16 Ammonia < 10.0 umol/L (11-32) L 11/17/19 02:33 Total Creatine Kinase 24 U/L (26-192) L 11/20/19 11:02 Troponin I 0.025 ng/ml (0-0.045) 11/17/19 17:33 C-Reactive Protein 8.87 mg/dl (0-0.29) H 11/23/19 06:48 Total Protein 4.2 gm/dl (6.4-8.2) L 11/25/19 04:16 Albumin 1.3 gm/dl (3.4-5.0) L 11/25/19 04:16 Globulin 2.9 gm/dl (2.5-4.0) 11/25/19 04:16 Albumin/Globulin Ratio 0.4 (0.9-2) L 11/25/19 04:16 Zdwdh-1-Erkilmizcvs 275 mg/dL (83-199) H 11/21/19 11:17 Ceruloplasmin 21 mg/dL (18-53) 11/21/19 11:17 Lipase 92 U/L (73-393) 11/17/19 01:57 Vitamin B12 > 2000 pg/ml (211-911) H 11/25/19 08:17 Folate 6.20 ng/ml (>5.38) 11/25/19 08:17 TSH 4.340 uIu/ml (0.300-4.500) 11/20/19 22:07 Random Cortisol 17.87 mcg/dl 11/24/19 17:45 Specimen Hemolysis 11/23/19 06:48 Urine Color [place] 11/22/19 18:38 Urine Appearance Cloudy (Clear) A 11/22/19 18:38 Urine pH 5.0 (4.5-7.5) 11/22/19 18:38 Ur Specific [place] 1.017 (1.000-1.030) 11/22/19 18:38 Urine Protein Trace (Negative) H 11/22/19 18:38 Urine Glucose (UA) Negative (Negative) 11/22/19 18:38 Urine Ketones Trace (Negative) H 11/22/19 18:38 Urine Blood Trace (Negative) H 11/22/19 18:38 Urine Nitrite Positive (Negative) A 11/22/19 18:38 Urine Bilirubin 2+ (Negative) H 11/22/19 18:38 Urine Urobilinogen Negative (Negative) 11/22/19 18:38 Ur Leukocyte Esterase 2+ (Negative) H 11/22/19 18:38 Urine WBC (Auto) 10-30 /hpf (0-5) H 11/22/19 18:38 Urine RBC (Auto) 0-4 /hpf (0-4) 11/22/19 18:38 U Hyaline Cast (Auto) 5-10 /lpf (0-5) H 11/22/19 18:38 U Epithel Cells (Auto) >30 /lpf (0-5) H 11/22/19 18:38 Urine Bacteria (Auto) 2+ (Negative) H 11/22/19 18:38 Urine Mucus Present (None Prsent) A 11/22/19 18:38 Synovial Source KNEE 11/22/19 11:19 Synovial Color YELLOW 11/22/19 11:19 Synovial Appearance CLOUDY 11/22/19 11:19 Synovial WBC 64464 /uL (0-200) H 11/22/19 11:19 Synovial RBC 45011 /uL 11/22/19 11:19 Synovial Polynuclear % 88.0 % 11/22/19 11:19 Synovial Mononuclear % 12.0 % 11/22/19 11:19 Synovial Crystals 11/22/19 11:19 Nasal Screen MRSA (PCR) Positive (Negative) A 11/24/19 17:40 Vancomycin Trough 11.3 mcg/ml (See Comment) 11/21/19 11:17 Ethyl Alcohol mg/dL < 3.0 mg/dl (0-3) 11/17/19 02:33 Anti-Mitochondrial Ab NEGATIVE (NEGATIVE) 11/19/19 12:46 Smooth Muscle Ab Titer 1:40 titer (<1:20) H 11/19/19 12:46 Anti-Smooth Muscle Ab POSITIVE (NEGATIVE) A 11/19/19 12:46 Tiss Transglutamin IgA 1 U/mL 11/19/19 12:46 Hep Bs Antigen Neg (Neg) 11/20/19 05:40 Hep Bs Antibody Non-Immune 11/20/19 05:40 Hep Bs Antibody, Quant < 3.10 mIU/mL (>or=10mIU/mL Immune) L 11/20/19 05:40 Hepatitis C Antibody Neg (Neg) 11/20/19 05:40 Bld Cult Staph aureus PCR Positive (Negative) A 11/18/19 05:55 Blood Culture MRSA PCR Positive (Negative) A 11/18/19 05:55 Blood Type A Positive 11/24/19 09:52 Antibody Screen POSITIVE A 11/24/19 09:52 Antibody Identification Anti-E 11/24/19 09:52 Antibody ID Comment 11/24/19 09:52 Antigen Identification c Antigen - NEGATIVE 11/20/19 22:07 Crossmatch See Detail 11/24/19 09:52 [place] [address] / Director: Eric Jacob M.D. Clinical Laboratory Report Name: DANIELITO WHTIT Acct: [id number] Status: ADM [place] : 1955 [facility] [place]: 11/17/19 Age: 63 Sex: F Dis Date: Loc: ICU Surgical [address] [place] [address]/Bed: E10[facility] Spec: [id number] Collected: 11/22/19-111 Received: 11/22/19-[address]: Wilmer Rodriguez, D.O. Copy To: Joe House MD Source: Knee,Left OV Order: Ordered: Aer/Katherine Cult/Sm Procedure Result Verified Site Gram Stain Final 11/22/19-1218 Gram Stain Result Many WBCs Seen Few Gram Positive Cocci Critical result called to Katie Blancas On 11/22/19 at 1216 by Theodora Graves and results were verbalized back. Aero/Katherine Cult Preliminary 11/25/19-1002 Organism 1 Staph aureus MRSA Quantity Moderate Sens Sensitivities to Follow Sensitivity results indicate a Methicillin-Resistant Staph aureus. Phoned to [facility] on 11/24/19 at 0787 by Ashlyn Petit. Results were verbalized back. MRSA RX M.I.C. --- --------- Clindamycin S <=0.5 Daptomycin S <=0.5 Erythromycin R >4 Oxacillin R >2 Rifampin S <=1 Tetracycline S <=4 Trimeth/Sulfa S <=0.5/9.5 Vancomycin S 1 S = SENSITIVE I = INTERMEDIATE R = RESISTANT
--- NOTE | 2019-11-25 14:50 | Surgery Progress Note ---
Date of Service November 25, 2019 Assessment & Plan (1) Empyema of left pleural space: Patient appears much more stable. I have discussed this with orthopedics and I believe the patient is stable enough to have a washout of her left knee done tomorrow. She is okay to move to the floor when cleared by the primary service. I prefer to have her on the third floor for maintenance of her chest tubes. Present on Admission?: Yes Subjective Patient is sitting up in a chair. She is eating breakfast. She has been weaned off of the vasopressor. She had a pretty uneventful night. Is on 3 L of O2 with good saturations today. Her chest tube is draining sero-bloody fluid and she has a minimal air leak. Physical Exam Physical Exam: She is much more awake. She actually moving air well on the left side. She has some chest tube noises but I was pleasantly surprised with how good her aeration was. Complaining of left knee pain. Results & Data Vital Signs (Past 12 Hours) Vital Signs Temp Pulse Pulse Resp BP BP BP 11/25/19 13:08 83 16 107/56 L 11/25/19 13:00 84 21 11/25/19 12:45 89 16 108/55 L 114/48 L 11/25/19 12:42 36.4 C L 87 16 114/48 L 11/25/19 12:30 89 21 11/25/19 12:03 36.4 C L 89 16 108/50 L 11/25/19 12:00 36.4 C L 89 19 11/25/19 11:03 36.3 C L 85 20 110/49 L 11/25/19 11:01 97 H 17 11/25/19 10:30 87 21 11/25/19 10:03 36.3 C L 85 17 96/45 L 11/25/19 09:33 36.4 C L 91 H 18 106/46 L 11/25/19 09:18 36.4 C L 92 H 20 105/45 L 11/25/19 09:01 36.3 C L 88 18 94/47 L 11/25/19 09:00 88 23 11/25/19 08:30 90 15 11/25/19 08:06 95 H 26 H 81/40 L 11/25/19 08:04 92 H 21 103/54 L 11/25/19 08:02 87 19 115/59 L 11/25/19 08:00 36.4 C L 88 24 11/25/19 07:30 90 19 11/25/19 07:08 83 17 117/56 L 11/25/19 07:01 83 16 11/25/19 06:17 83 18 118/60 115/44 L 11/25/19 05:00 91 H 18 110/55 L 106/47 L 11/25/19 04:17 36.5 C 92 H 16 113/56 L 107/35 L 11/25/19 03:00 90 16 111/61 101/40 L Pulse Ox Pulse Ox 11/25/19 13:08 94 11/25/19 13:00 95 11/25/19 12:45 96 11/25/19 12:42 96 11/25/19 12:30 89 L 11/25/19 12:03 92 11/25/19 12:00 96 11/25/19 11:03 98 11/25/19 11:01 11/25/19 10:30 94 11/25/19 10:03 98 11/25/19 09:33 99 11/25/19 09:18 99 11/25/19 09:01 100 11/25/19 09:00 100 11/25/19 08:30 94 11/25/19 08:06 90 11/25/19 08:04 92 11/25/19 08:02 93 11/25/19 08:00 94 11/25/19 07:30 92 11/25/19 07:08 92 11/25/19 07:01 92 11/25/19 06:17 94 94 11/25/19 05:00 11/25/19 04:17 97 97 11/25/19 03:00 98 PG Care Time/CCT Total # of Minutes Spent Total Time Spent with Patient: Total time spent is greater than 50% in coordination of care (as documented) at patient's floor/unit and/or counseling patient:
[2019-11-25] MEDS: NOREPINEPHRINE BIT INJ 8 MG in DEXTROSE 5% 500 ML IV SCH (17:35)
[2019-11-25] MEDS: cefTRIAXone SODIUM 1,000 MG in DEXTROSE 5% 50 ML IV SCH (23:24)
[2019-11-26] MEDS ORDERED: ALBUMIN 5% 500 ML IV ONE (01:00)
[2019-11-26] MEDS: HYDROCORTISONE SOD 50 MG in SYRINGE 0 ML IV SCH ×4 (04:05→21:12)
[2019-11-26] MEDS: MoRPHine SULFATE 2 MG/ML CARP IV PRN ×5 (04:09→22:57)
[2019-11-26] MEDS: LACTATED RINGER'S 1,000 ML IV SCH (04:11)
[2019-11-26 04:58] LABS: Hematocrit (blood only) 25.3 % (37-47); Hemoglobin 8.6 g/dL (12.0-16.0); Mean Corpuscular Hemoglobin 31.4 pg (25-34); Mean Corpuscular Volume 92.3 fL (80-100); Mean Platelet Volume 8.7 fL (7.4-10.4); Platelet Count 297 K/uL (130-400); RDW Coefficient of Variation 17.3 % (11.5-14.5); RDW Standard Deviation 56.4 fL (36.4-46.3); Red Blood Count 2.74 M/uL (4.2-5.4); White Blood Count 17.79 K/uL (4.8-10.8)
[2019-11-26 05:17] LABS: Albumin Level 1.8 gm/dl (3.4-5.0); BUN Creatinine Ratio 8.2 (10-20); Calcium 7.6 mg/dl (8.5-10.1); Creatinine Clr Calc Pharmacy 81.4 ml/min; Est GFR (Non-African American) 89.8; Magnesium 1.9 mg/dl (1.8-2.4); Potassium 3.6 mmol/L (3.5-5.1)
[2019-11-26 05:26] LABS: Albumin Globulin Ratio 0.7 (0.9-2); Bilirubin,Total 3.3 mg/dl (0.2-1); Globulin 2.6 gm/dl (2.5-4.0); Phosphorus 2.8 mg/dl (2.5-4.9); Total Protein 4.4 gm/dl (6.4-8.2)
[2019-11-26] MEDS ORDERED: MAGNESIUM SULFATE / D5W 1 GM/100 ML BAG IV ONE (05:30)
[2019-11-26] MEDS ORDERED: POTASSIUM CHLORIDE / WTR 20 MEQ/100 ML PLCT IV ONE (05:31)
[2019-11-26 05:41] LABS: Basophils # (auto) 0.01 K/uL (0-0.2); Basophils % (auto) 0.1 %; Immature Granulocytes # (auto) 0.08 K/uL (0.00-0.02); Immature Granulocytes % (auto) 0.4 %; Lymphocytes # (auto) 0.63 K/uL (1.2-3.4); Lymphocytes % (auto) 3.5 %; Monocytes # (auto) 0.27 K/uL (0.11-0.59); Monocytes % (auto) 1.5 %; Neutrophils % (auto) 94.5 %
[2019-11-26] MEDS: LEVOTHYROXINE SODIUM 25 MCG TABLET PO SCH (05:59)
--- NOTE | 2019-11-26 07:31 | XRay Report ---
XR chest 1V portable CLINICAL HISTORY: empyema COMPARISON STUDY: Chest CT November 17, 2019. Chest radiograph November 25, 2019. FINDINGS: Left subclavian central line remains in place. Kyphotic positioning is noted. 2 left-sided chest tubes remain in place. Interstitial thickening persists. Left lung airspace opacity is slightly improved. Right basilar opacity persists. Cardiomediastinal silhouette is stable. There is no pneumo thorax. Small left pleural effusion is unchanged. There is also a small right pleural effusion. Old r ight rib fractures are incidentally noted. IMPRESSION: 1. [address]. Small left pleural effusion with no pneumothorax. 2. Persistent interstitial thickening suggests mild pulmonary edema. Slight improvement in left lung airspace opacity which may reflect pulmonary edema or pneumonia. ACT 112: Negative or not required by law. Electronically signed by: Bernardino Baig M.D. 11/26/2019 7:30 AM
[2019-11-26] MEDS: INSULIN ASPART 100 UNITS/ML 3 ML PEN SC SCH ×4 (08:13→21:07)
[2019-11-26] MEDS: FOLIC ACID 1 MG TAB PO SCH (08:14)
[2019-11-26] MEDS: miSOPROStoL 100 MCG TAB PO SCH ×4 (08:14→20:39)
[2019-11-26] MEDS: SUCRALFATE 1 GM TAB PO SCH ×4 (08:14→20:38)
[2019-11-26] MEDS: DOCUSATE SODIUM 100 MG CAP PO SCH ×2 (08:14→20:38)
[2019-11-26] MEDS: GABAPENTIN 300 MG CAP PO SCH ×3 (08:14→20:39)
[2019-11-26] MEDS: FLUDROCORTISONE ACETATE 0.1 MG TAB PO SCH (08:15)
[2019-11-26] MEDS: ENOXAPARIN INJ 40 MG/0.4 ML SYR SQ SCH (08:21)
[2019-11-26] MEDS: THIAMINE HCL 100 MG TAB PO SCH (08:21)
[2019-11-26] MEDS: CYANOCOBALAMIN 500 MCG TABLET (VITAMIN B-12) PO SCH (08:21)
[2019-11-26] MEDS: PANTOprazole 40 MG TAB PO SCH (08:21)
[2019-11-26] MEDS: MAGNESIUM CHLORIDE 64MG DELAYED REL TAB PO SCH ×2 (08:23→21:09)
[2019-11-26] MEDS ORDERED: KETOROLAC TROMETHAMINE 15 MG/ML VIAL IV ONE (08:25)
[2019-11-26] MEDS ORDERED: LACTATED RINGER'S 1,000 ML IV ONE (08:26)
[2019-11-26] MEDS: POT PHOSPHATE MONOBASIC W/ SOD TAB PO SCH (08:41)
--- NOTE | 2019-11-26 08:49 | Critical Care Progress Note ---
Date of Service November 26, 2019 Assessment & Plan (1) Acute hypoxemic respiratory failure: Impression: 63-year-old female with history of diabetes hypertension and prior bariatric surgery presenting with nausea and vomiting found to have incidentally persistent bacteremia with right septic knee. She is brought to the ICU post video-assisted thoracoscopic washout for complicated parapneumonic effusion. 24-hour events: Pressors weaned off. Stress dose hydrocortisone and Florinef started. Minimal output from chest tubes. Out of bed to chair as tolerated. Orthopedics plans on taking to the OR today. Urine output slightly decreased overnight. Blood pressure also slightly soft. N.p.o. for OR with orthopedics for knee washout Recommendations: 1. Severe sepsis with septic shock: Wean norepinephrine as tolerated. Relative adrenal insufficiency confirmed with cortisol of 16 in the setting of pressor use. Continue Florinef and hydrocortisone. Add oral midodrine. 2. Persistent MRSA bacteremia: Last blood cultures positive were 11/20/2019. Surveillance cultures from 11/24/2019 no growth to date. Continue daptomycin per ID. Interestingly, the patient did have an atrial septal aneurysm with a hemodynamically insignificant shunt. Unclear if repeat echocardiogram is indicated although it would likely not change duration of antibiotics given the septic knee. May reconsider if the patient remains persistently bacteremic. White blood cell count continues to decrease. 3. Empyema: Chest tube management per thoracic surgery. 6 to 8 weeks of antibiotics will be necessitated 4. Hypoxemic respiratory failure: Weaning oxygen as tolerated. Will need to initiate diuresis once the patient is off vasopressors. 5. Anemia: Suspect slow ooze from gastric ulcer. B12 and folate acceptable. On PPI. Discussed with GI. They may consider Carafate. Continue Cytotec. Continue serial hemoglobin and hematocrit. Transfusion threshold around 7-/2 6. Hyponatremia: Currently stable. The patient appears mildly hypervolemic currently. Trend for now. SIDH is possible 7. Abnormal LFTs: AST and ALT and bilirubin improving. MRCP ordered by GI. Appreciate GI consultants 8. Hypocalcemia, hypomagnesemia: Continue replacement protocols 9. Septic left knee: To the OR with orthopedics for washout today. She is clinically improved today and would potentially tolerate anesthesia. Timing per orthopedics and anesthesia 10. Mild hyperglycemia: Sliding scale insulin per protocol. May be aggravated by steroids. Add low dose lantus while on hydrocortisone and follow. 11. Urinary tract infection: Urine growing sensitive E. coli and Klebsiella. On ceftriaxone per infectious disease Continue to follow in ICU until HD stable. (2) Pleural effusion: (3) Septic shock: Subjective Patient complaining of some pain at her chest tube site this morning. Overnight she was weaned off of pressors. She is not coughing or expectorating phlegm. She is n.p.o. for washout of left knee today. Review of Systems Review of Systems: Unchanged from prior Physical Exam Eyes: PERRL Neck: trachea midline, no thyromegaly Cardiovascular: RRR, no murmur, no edema Gastrointestinal (Abdomen): normal bowel sounds, soft, nontender, no hepatosplenomegaly Skin: no rashes, warm and dry Results & Data Vital Signs (Past 12 Hours) Vital Signs Temp Pulse Pulse Resp BP BP BP 11/26/19 06:00 93 H 16 102/50 L 98/42 L 11/26/19 05:00 84 16 99/53 L 103/46 L 11/26/19 04:00 85 20 113/59 L 102/46 L 11/26/19 03:00 86 18 107/54 L 104/44 L 11/26/19 02:31 82 21 11/26/19 02:00 84 16 107/58 L 95/47 L 11/26/19 01:00 85 16 98/54 L 89/50 L 11/26/19 00:00 36.7 C 87 86 16 95/43 L 99/51 L 95/43 L 11/25/19 23:28 87 23 11/25/19 22:14 86 25 H 11/25/19 22:08 87 26 H 107/58 L 11/25/19 22:00 88 21 11/25/19 21:30 87 20 11/25/19 21:08 87 18 108/55 L 11/25/19 21:00 88 19 11/25/19 20:47 87 Pulse Ox 11/26/19 06:00 92 11/26/19 05:00 91 11/26/19 04:00 94 11/26/19 03:00 94 11/26/19 02:31 90 11/26/19 02:00 94 11/26/19 01:00 98 11/26/19 00:00 98 11/25/19 23:28 92 11/25/19 22:14 93 11/25/19 22:08 93 11/25/19 22:00 95 11/25/19 21:30 95 11/25/19 21:08 95 11/25/19 21:00 93 11/25/19 20:47 Laboratory Results 11/26/19 04:42 11/26/19 04:42 Microbiology 11/24/19 15:24 Chest Gram Stain - Final 11/24/19 15:24 Chest Aerobic and Anaerobic Culture - Preliminary Staph aureus MRSA 11/24/19 17:55 Blood Aerobic Blood Culture - Preliminary No growth in Aerobic bottle after 24 hours. 11/24/19 17:55 Blood Anaerobic Blood Culture - Preliminary No growth in Anaerobic bottle after 24 hours. 11/24/19 17:45 Blood Aerobic Blood Culture - Preliminary No growth in Aerobic bottle after 24 hours. 11/24/19 17:45 Blood Anaerobic Blood Culture - Preliminary No growth in Anaerobic bottle after 24 hours. 11/24/19 14:12 Pleural Fluid Gram Stain - Final 11/24/19 14:12 Pleural Fluid Aerobic and Anaerobic Culture - Preliminary Staphylococcus aureus 11/20/19 11:02 Blood Aerobic Blood Culture - Preliminary Staph aureus MRSA 11/20/19 11:02 Blood Anaerobic Blood Culture - Final No growth in Anaerobic bottle after 5 days. 11/20/19 11:14 Blood Aerobic Blood Culture - Preliminary Staph aureus MRSA 11/20/19 11:14 Blood Anaerobic Blood Culture - Final No growth in Anaerobic bottle after 5 days. 11/24/19 10:44 Blood Aerobic Blood Culture - Preliminary No growth in Aerobic bottle after 24 hours. 11/24/19 10:44 Blood Anaerobic Blood Culture - Preliminary No growth in Anaerobic bottle after 24 hours. 11/24/19 10:35 Blood Aerobic Blood Culture - Preliminary No growth in Aerobic bottle after 24 hours. 11/24/19 10:35 Blood Anaerobic Blood Culture - Preliminary No growth in Anaerobic bottle after 24 hours. 11/22/19 18:38 Urine,Clean Catch Urine Culture - Final Escherichia coli Klebsiella oxytoca 11/24/19 15:24 Chest Fungal Smear - Final 11/24/19 14:12 Pleural Fluid Fungal Smear - Final 11/19/19 11:33 Blood Aerobic Blood Culture - Final Staph aureus MRSA 11/19/19 11:33 Blood Anaerobic Blood Culture - Final No growth in Anaerobic bottle after 5 days. 11/19/19 11:33 Blood Aerobic Blood Culture - Final Staph aureus MRSA 11/19/19 11:33 Blood Anaerobic Blood Culture - Final No growth in Anaerobic bottle after 5 days. 11/22/19 11:19 Knee,Left Gram Stain - Final 11/22/19 11:19 Knee,Left Aerobic and Anaerobic Culture - Preliminary Staph aureus MRSA 11/18/19 06:04 Blood Aerobic Blood Culture - Final Staph aureus MRSA 11/18/19 06:04 Blood Anaerobic Blood Culture - Final No growth in Anaerobic bottle after 5 days. 11/18/19 05:55 Blood Aerobic Blood Culture - Final Staph aureus MRSA 11/18/19 05:55 Blood Anaerobic Blood Culture - Final No growth in Anaerobic bottle after 5 days. 11/17/19 02:36 Blood Aerobic Blood Culture - Final No growth in Aerobic bottle after 5 days. 11/17/19 02:36 Blood Anaerobic Blood Culture - Final Staph aureus MRSA 11/17/19 02:33 Blood Aerobic Blood Culture - Final No growth in Aerobic bottle after 5 days. 11/17/19 02:33 Blood Anaerobic Blood Culture - Final Staph aureus MRSA Diagnostic Findings Chest x-ray from today was independently reviewed. There is increasing pulmonary venous congestion bilaterally. Chest tubes appear to be in good position with no significant pneumothorax. Coding Level of Care Code 76396 Subseq Hosp Care Lvl 3 Diagnoses Acute hypoxemic respiratory failure J96.01 Pleural effusion J90 Septic shock A41.9; R65.21
[2019-11-26] MEDS ORDERED: CALCIUM CHLORIDE 10% 1,000 MG in SODIUM CHLORIDE 0.9% 50 ML IV ONE (09:00)
[2019-11-26] MEDS: MIDODRINE HCL 2.5 MG TAB PO SCH ×2 (09:15→16:02)
[2019-11-26] MEDS ORDERED: fentaNYL citrate 100 MCG/2 ML VIAL ONE (10:33)
[2019-11-26] MEDS ORDERED: MIDAZOLAM HCL 1 MG/ML 2ML VIAL ONE (10:33)
--- NOTE | 2019-11-26 10:36 | Infectious Disease Progress Nt ---
Date of Service November 26, 2019 Assessment & Plan (1) Gram positive sepsis: spoke with pharmacy, states ICU will be changing abx to ceftaroline due to lung involvement. follow cultures 11/24 negative to date. for OR later today, await findings. will need several weeks of IV abx. Subjective pt oob to chair, having pain with inspiration at chest tube sites, no f/c. remains on dapto and ctx, tolerating well. 11/24 blood cultures negative. pleural fluid growing S. aureus, chest wall culture growing MRSA. for knee surgery later today, previous aspiration growing MRSA. wbc down to 17.CXR with effusions, infiltrate. no cough. no abd pain, no n/v/d Review of Systems Review of Systems: All systems reviewed & are unremarkable except as noted in HPI & below Physical Exam Constitutional: WD/WN, vitals as above Eyes: PERRL, conjunctivae normal, anicteric sclerae ENMT: external ear and nose normal, oropharynx normal Neck: normal visual inspection Respiratory: normal respiratory effort, lungs clear to auscultation Auscultation: + diminished lung sounds left chest tubes in places Cardiovascular: RRR, no murmur, no edema Gastrointestinal (Abdomen): normal bowel sounds, soft, nontender, no hepatosplenomegaly Musculoskeletal: no cyanosis or clubbing, extremities motor strength 5/5 Skin: no rashes, warm and dry + jaundice Psychiatric: A+Ox3, euthymic affect Results & Data Vital Signs (Past 12 Hours) Vital Signs Temp Pulse Pulse Resp BP BP BP 11/26/19 10:00 93 H 20 11/26/19 08:09 93 H 24 93/53 L 11/26/19 07:35 93 H 28 H 97/53 L 11/26/19 07:00 92 H 21 11/26/19 06:00 93 H 16 102/50 L 98/42 L 11/26/19 05:00 84 16 99/53 L 103/46 L 11/26/19 04:00 85 20 113/59 L 102/46 L 11/26/19 03:00 86 18 107/54 L 104/44 L 11/26/19 02:31 82 21 11/26/19 02:00 84 16 107/58 L 95/47 L 11/26/19 01:00 85 16 98/54 L 89/50 L 11/26/19 00:00 36.7 C 87 86 16 95/43 L 99/51 L 95/43 L 11/25/19 23:28 87 23 Pulse Ox 11/26/19 10:00 92 11/26/19 08:09 91 11/26/19 07:35 92 11/26/19 07:00 91 11/26/19 06:00 92 11/26/19 05:00 91 11/26/19 04:00 94 11/26/19 03:00 94 11/26/19 02:31 90 11/26/19 02:00 94 11/26/19 01:00 98 11/26/19 00:00 98 11/25/19 23:28 92 PG Care Time/CCT Total # of Minutes Spent Total Time Spent with Patient: Total time spent is greater than 50% in coordination of care (as documented) at patient's floor/unit and/or counseling patient:
[2019-11-26] MEDS: DAPTOmycin 450 MG in SYRINGE 0 ML IV SCH (11:04)
--- NOTE | 2019-11-26 13:21 | Progress Note ---
DATE: 11/26/2019 Nicole was seen this morning. She is going to have her left knee washed out in the OR by orthopedics today. She admitted a bit more pain in her chest tube site today. On exam, the patient has decreased breath sounds with some rhonchi on the right from the chest tube. She is awake and alert, complaining of pain. Her chest tube really does not have an air leak any longer. She has drained a fair amount of fluid. She has multiple issues, but it appears from an empyema standpoint, she is at least stable. I was concerned about the infiltrative pattern in her lung manzano radiographically that may all be due to volume. At any rate, she is stable hemodynamically and is off pressors at this point. She has made good urine. ASSESSMENT AND PLAN: Postoperative day #2 status post thoracoscopic extensive decortication and evacuation of empyema, left pleural cavity. This is growing out methicillin-resistant Staph aureus. Dr. Michelle Lofton from infectious disease is on the case.
[2019-11-26] MEDS ORDERED: FUROSEMIDE 20 MG in SYRINGE 0 ML IV ONE (14:05)
--- NOTE | 2019-11-26 14:24 | Hospitalist Progress Note ---
Date of Service November 26, 2019 Assessment & Plan (1) Gram positive sepsis: Presented with malaise, myalgias, nausea, vomiting. Afebrile at time of admission and white count was normal. Was not obviously septic, but was tachycardic and tachypneic and therefore, in retrospect, met criteria for sepsis per current CMS guidelines. Serum lactate was 1.9. Blood cultures were drawn and subsequently grew MRSA. Subsequently found to have MRSA empyema as well as MRSA septic arthritis of left knee. MRI of thoracic and lumbar spine did not show any apparent discitis, osteomyelitis, epidural abscess. Echocardiogram did not show any valvular vegetations. Started on IV vancomycin with positive blood cultures were reported. ID consulted. Repeat blood cultures on 11/18, 11/19, 11/20 were positive. Source control of empyema and septic arthritis as discussed below. Blood cultures from 11/24 negative thus far. Antibiotic therapy IV vancomycin --> daptomycin --> ceftaroline. Long course of parental IV antibiotic therapy anticipated. (2) Hypotension: Recent orthostatic hypotension, started on fludrocortisone prior to admission. Hypotensive at time of admission. Volume depletion considered, but suspect that sepsis was a factor. Received IV fluids. Required pressor support after thoracoscopy Relative adrenal insufficiency, currently receiving hydrocortisone as well as fludrocortisone. May have underlying autonomic neuropathy. Started on midodrine. Follow hemodynamics, fluids status. (3) Empyema of left pleural space: Imaging at time of admission demonstrated a left pleural effusion. Thoracic Surgery consulted. Pleural fluid from thoracentesis grew MRSA. Thoracoscopy and decortication recommended for complex empyema. Procedure performed by Dr. Miranda on 11/24. Ongoing management per Thoracic Surgery. (4) Septic arthritis of knee, left: Experienced pain and swelling of left knee. Seen in consultation by Orthopedics. Arthrocentesis on 11/22/2019 demonstrated 78,000 WBCs (88% polys). Cultures subsequently grew MRSA. Receiving IV antibiotics as discussed above. Further management per Orthopedics. (5) Urinary tract infection: Urine culture from 11/22/2019 grew E. coli and Klebsiella oxytoca. Received IV antibiotics. Discontinue Palencia catheter as soon as possible. (6) Acute respiratory failure with hypoxia: Requiring supplemental oxygen for hypoxia. Wean O2 as tolerated. (7) Left rib fracture: Multiple left rib fractures due to recent fall. Analgesics PRN. Incentive spirometry. (8) Anastomotic ulcer S/P gastric bypass: Status post [place]-en-Y gastric bypass years ago. History anastomotic ulcer. No gross GI bleeding. Continue PPI, sucralfate, misoprostol. (9) LFT elevation: At time of admission, total bilirubin 4.6, AST 128, ALT 56, alkaline phosphatase 181. Ultrasound of abdomen on 11/17 demonstrated hepatic steatosis, no significant ductal dilatation, surgical absence of gallbladder. CT performed on the same day showed similar findings. GI consulted. Liver profile today demonstrated total bilirubin 3.3, AST 66, ALT 30, alkaline phosphatase 145. Further evaluation/management per GI. (10) Hyponatremia: Serum sodium 132 at time of admission and has remained relatively stable. Possible SIADH from pulmonary disease or SSRI. Serum sodium today = 135. Follow. (11) Hypokalemia: Serum potassium at time of admission 2.6. Hypokalemia probably multifactorial-inadequate oral intake, GI loss, mineralocorticoid therapy could all be contributing factors. Received replacement. Potassium today = 3.6. Follow. (12) Hypomagnesemia: Serum magnesium 1.6. Received replacement. Potassium today = 1.9. Follow. (13) Diabetes mellitus type 2, controlled: Diabetes mellitus type 2, recently diet controlled. Hemoglobin A1c 4.9. Blood sugars as high as 214 due to acute illness; also had episodes of hypoglycemia. Receiving Lantus/NovoLog. Fasting blood sugar today = 187. (14) Anemia: Hemoglobin 10.5 at time of admission. Hemoglobin fell as low as 7.0. No gross GI bleeding. Serum iron 12, TIBC 70, transferrin 59, ferritin 385, B12 greater than 2000, folate 6.2, SPEP pending. Anemia probably multifactorial-possible blood loss from anastomotic ulcer and sepsis contributing factors. Has received 4 units of packed RBCs thus far. Hemoglobin today = 8.6. Follow H&H. (15) Alcoholism: History of alcoholism. Denies recent consumption, though she apparently inadvertently ate some Jell-O shots around the time of admission. Continue thiamine. (16) DVT prophylaxis: Enoxaparin. SCDs. Ambulate as able. (17) Discharge planning issues: Discharge disposition to be determined. Will likely need transition to rehab facility before returning home. Family Medicine follow-up with Dr. Quintanilla. Subjective Recheck for multiple problems. Patient seen in their room around 1320. Family visiting. Somnolent. Requiring supplemental oxygen. Occasional nonproductive cough. Feels somewhat dyspneic. Has some chest wall discomfort from chest tubes. Has some left knee pain. No fever. Review of Systems: Constitutional- as noted above. Cardiac- no anginal symptoms. Pulmonary- as noted above. GI- no nausea, vomiting, diarrhea, melena, hematochezia. - Palencia cath. Otherwise, as noted above. Physical Exam Constitutional: + ill appearing; no acute distress Eyes: + scleral abnormality (icteric) Respiratory: Auscultation: + rales (left base) Cardiovascular: Rate/Rhythm: regular rate and regular rhythm Vessels: no JVD Extremities: + edema (trace pretibial); no calf tenderness Gastrointestinal (Abdomen): normal bowel sounds, soft, nontender, no hepatosplenomegaly Musculoskeletal: SCD's applied Skin: no rashes, warm and dry Psychiatric: Orientation: + not alert (somnolent) Genitourinary: + bladder abnormality (Palencia cath) Results & Data Vital Signs (Past 12 Hours) Vital Signs Temp Pulse Pulse Resp BP BP BP 11/26/19 14:06 73 17 11/26/19 12:29 11/26/19 12:09 36.5 C 81 18 96/48 L 11/26/19 11:08 88 21 106/52 L 11/26/19 10:09 84 13 104/57 L 11/26/19 10:00 93 H 20 11/26/19 08:09 93 H 24 93/53 L 11/26/19 07:35 93 H 28 H 97/53 L 11/26/19 07:00 92 H 21 11/26/19 06:00 93 H 16 102/50 L 98/42 L 11/26/19 05:00 84 16 99/53 L 103/46 L 11/26/19 04:00 85 20 113/59 L 102/46 L 11/26/19 03:00 86 18 107/54 L 104/44 L 11/26/19 02:31 82 21 Pulse Ox 11/26/19 14:06 92 11/26/19 12:29 92 11/26/19 12:09 89 L 11/26/19 11:08 90 11/26/19 10:09 90 11/26/19 10:00 92 11/26/19 08:09 91 11/26/19 07:35 92 11/26/19 07:00 91 11/26/19 06:00 92 11/26/19 05:00 91 11/26/19 04:00 94 11/26/19 03:00 94 11/26/19 02:31 90 Laboratory Results Laboratory Results - last 24 hr 11/24/19 11/26/19 11/26/19 09:52 04:42 04:42 WBC 17.79 H RBC 2.74 L Hgb 8.6 L Hct 25.3 L MCV 92.3 MCH 31.4 MCHC 34.0 RDW Std Deviation 56.4 H RDW Coeff of Taye 17.3 H Plt Count 297 MPV 8.7 Immature Gran % (Auto) 0.4 Neut % (Auto) 94.5 Lymph % (Auto) 3.5 [place] % (Auto) 1.5 Eos % (Auto) 0.0 Baso % (Auto) 0.1 Immature Gran # (Auto) 0.08 H Neut # (Auto) 16.80 H Lymph # (Auto) 0.63 L [place] # (Auto) 0.27 Eos # (Auto) 0.00 Baso # (Auto) 0.01 Sodium 135 L Potassium 3.6 Chloride 104 Carbon Dioxide 27 Anion Gap 4.0 BUN 6 L Creatinine 0.72 Est Cr Clr Drug Dosing 81.4 Est GFR ( Amer) 104.0 Est GFR (Non-Af Amer) 89.8 BUN/Creatinine Ratio 8.2 L Glucose 185 H POC Glucose Calcium 7.6 L Phosphorus 2.8 Magnesium 1.9 Total Bilirubin 3.3 H AST 66 H ALT 30 Alkaline Phosphatase 145 H Total Protein 4.4 L Albumin 1.8 L Globulin 2.6 Albumin/Globulin Ratio 0.7 L Crossmatch See Detail 11/26/19 11/26/19 11/26/19 08:12 11:11 16:06 WBC RBC Hgb Hct MCV MCH MCHC RDW Std Deviation RDW Coeff of Taye Plt Count MPV Immature Gran % (Auto) Neut % (Auto) Lymph % (Auto) [place] % (Auto) Eos % (Auto) Baso % (Auto) Immature Gran # (Auto) Neut # (Auto) Lymph # (Auto) [place] # (Auto) Eos # (Auto) Baso # (Auto) Sodium Potassium Chloride Carbon Dioxide Anion Gap BUN Creatinine Est Cr Clr Drug Dosing Est GFR ( Amer) Est GFR (Non-Af Amer) BUN/Creatinine Ratio Glucose POC Glucose 187 H 193 H 174 H Calcium Phosphorus Magnesium Total Bilirubin AST ALT Alkaline Phosphatase Total Protein Albumin Globulin Albumin/Globulin Ratio Crossmatch Microbiology 11/24/19 17:55 Blood Aerobic Blood Culture - Preliminary No growth in Aerobic bottle after 48 hours. 11/24/19 17:55 Blood Anaerobic Blood Culture - Preliminary No growth in Anaerobic bottle after 48 hours. 11/24/19 17:45 Blood Aerobic Blood Culture - Preliminary No growth in Aerobic bottle after 48 hours. 11/24/19 17:45 Blood Anaerobic Blood Culture - Preliminary No growth in Anaerobic bottle after 48 hours. 11/24/19 14:12 Pleural Fluid Gram Stain - Final 11/24/19 14:12 Pleural Fluid Aerobic and Anaerobic Culture - Preliminary Staph aureus MRSA 11/24/19 10:44 Blood Aerobic Blood Culture - Preliminary No growth in Aerobic bottle after 48 hours. 11/24/19 10:44 Blood Anaerobic Blood Culture - Preliminary No growth in Anaerobic bottle after 48 hours. 11/24/19 10:35 Blood Aerobic Blood Culture - Preliminary No growth in Aerobic bottle after 48 hours. 11/24/19 10:35 Blood Anaerobic Blood Culture - Preliminary No growth in Anaerobic bottle after 48 hours. 11/24/19 15:24 Chest Gram Stain - Final 11/24/19 15:24 Chest Aerobic and Anaerobic Culture - Preliminary Staph aureus MRSA 11/24/19 15:24 Lung Acid Fast Bacilli Smear - Final 11/24/19 14:12 Pleural Fluid Acid Fast Bacilli Smear - Final 11/20/19 11:02 Blood Aerobic Blood Culture - Preliminary Staph aureus MRSA 11/20/19 11:02 Blood Anaerobic Blood Culture - Final No growth in Anaerobic bottle after 5 days. 11/20/19 11:14 Blood Aerobic Blood Culture - Preliminary Staph aureus MRSA 11/20/19 11:14 Blood Anaerobic Blood Culture - Final No growth in Anaerobic bottle after 5 days. 11/22/19 18:38 Urine,Clean Catch Urine Culture - Final Escherichia coli Klebsiella oxytoca 11/24/19 15:24 Chest Fungal Smear - Final 11/24/19 14:12 Pleural Fluid Fungal Smear - Final 11/19/19 11:33 Blood Aerobic Blood Culture - Final Staph aureus MRSA 11/19/19 11:33 Blood Anaerobic Blood Culture - Final No growth in Anaerobic bottle after 5 days. 11/19/19 11:33 Blood Aerobic Blood Culture - Final Staph aureus MRSA 11/19/19 11:33 Blood Anaerobic Blood Culture - Final No growth in Anaerobic bottle after 5 days. 11/22/19 11:19 Knee,Left Gram Stain - Final 11/22/19 11:19 Knee,Left Aerobic and Anaerobic Culture - Preliminary Staph aureus MRSA 11/18/19 06:04 Blood Aerobic Blood Culture - Final Staph aureus MRSA 11/18/19 06:04 Blood Anaerobic Blood Culture - Final No growth in Anaerobic bottle after 5 days. 11/18/19 05:55 Blood Aerobic Blood Culture - Final Staph aureus MRSA 11/18/19 05:55 Blood Anaerobic Blood Culture - Final No growth in Anaerobic bottle after 5 days. 11/17/19 02:36 Blood Aerobic Blood Culture - Final No growth in Aerobic bottle after 5 days. 11/17/19 02:36 Blood Anaerobic Blood Culture - Final Staph aureus MRSA 11/17/19 02:33 Blood Aerobic Blood Culture - Final No growth in Aerobic bottle after 5 days. 11/17/19 02:33 Blood Anaerobic Blood Culture - Final Staph aureus MRSA (1) Left rib fracture Encounter type: initial encounter Fracture type: closed Rib fracture type: multiple ribs Qualified Code(s): S22.42XA - Multiple fractures of ribs, left side, initial encounter for closed fracture
[2019-11-26] MEDS: CEFTAROLINE FOSAMIL ACETATE 600 MG in SODIUM CHLORIDE 0.9% 250 ML IV SCH ×2 (16:00→22:55)
[2019-11-26] MEDS: INSULIN GLARGINE SOLOSTAR 100 UNITS/ML 3 ML PEN SC SCH (21:06)
--- NOTE | 2019-11-26 23:11 | Orthopedic Progress Note ---
Date of Service November 26, 2019 Assessment & Plan (1) Septic arthritis of knee, left: Patient's surgery will be delayed till 11/27/19 due to OR availability. Spoke with charge nurse for OR, due to multiple surgeons operating there is no available OR or staff to accommodate the patient today 11/26/19. NPO after midnight. OR 11/27/19 pending OR and surgeon availability. Subjective Patient seen in ICU, comfortable, offers no complaints of left knee pain, only c/o chest tube site pain. No acute issues. Review of Systems Review of Systems: All systems reviewed & are unremarkable except as noted in HPI & below Constitutional: as per Subjective / HPI Physical Exam Physical Exam: LLE NVSI +EHL/FHL/TA/GS SILT grossly, +2 DP pulse, compartments soft NT, mild effusion, moderate edema, no erythema Constitutional: WD/WN, vitals as above Results & Data Vital Signs (Past 12 Hours) Vital Signs Temp Pulse Pulse Resp BP BP Pulse Ox 11/26/19 22:00 36.9 C 78 4 L 102/53 L 99 11/26/19 21:45 96 H 12 100 11/26/19 21:00 80 20 110/58 L 97 11/26/19 20:00 36.9 C 79 21 117/46 L 99 11/26/19 19:00 76 17 98/56 L 97 11/26/19 18:13 96 H 15 98 11/26/19 18:00 77 14 98 11/26/19 17:30 77 14 98 11/26/19 17:09 78 16 110/57 L 98 11/26/19 17:00 75 16 98 11/26/19 16:30 77 15 97 11/26/19 16:23 80 18 96 11/26/19 16:09 83 20 106/56 L 95 11/26/19 16:00 79 20 96 11/26/19 15:30 78 18 95 11/26/19 15:09 82 17 103/57 L 94 11/26/19 15:00 78 19 93 11/26/19 14:30 77 16 95 11/26/19 14:09 76 16 100/54 L 94 11/26/19 14:06 73 17 92 11/26/19 14:00 79 18 92 11/26/19 13:30 83 15 91 11/26/19 13:09 78 14 93/47 L 93 11/26/19 13:00 79 14 90 11/26/19 12:30 85 20 90 11/26/19 12:29 92 11/26/19 12:10 81 18 88 L 11/26/19 12:09 36.5 C 81 18 96/48 L 89 L 11/26/19 11:30 36.8 C 87 22 106/52 L 93 11/26/19 11:08 88 21 106/52 L 90 Laboratory Results 11/26/19 11/26/19 11/26/19 Range/Units 21:05 16:06 11:11 WBC (4.8-10.8) K/uL RBC (4.2-5.4) M/uL Hgb (12.0-16.0) g/dL Hct (37-47) % MCV (80-100) fL MCH (25-34) pg MCHC (32-36) g/dL RDW Std Deviation (36.4-46.3) fL RDW Coeff of Taye (11.5-14.5) % Plt Count (130-400) K/uL MPV (7.4-10.4) fL Immature Gran % (Auto) % Neut % (Auto) % Lymph % (Auto) % [place] % (Auto) % Eos % (Auto) % Baso % (Auto) % Immature Gran # (Auto) (0.00-0.02) K/uL Neut # (Auto) (1.4-6.5) K/uL Lymph # (Auto) (1.2-3.4) K/uL [place] # (Auto) (0.11-0.59) K/uL Eos # (Auto) (0-0.5) K/uL Baso # (Auto) (0-0.2) K/uL Sodium (136-145) mmol/L Potassium (3.5-5.1) mmol/L Chloride (98-107) mmol/L Carbon Dioxide (21-32) mmol/L Anion Gap (3-11) BUN (7-18) mg/dl Creatinine (0.6-1.2) mg/dl Est Cr Clr Drug Dosing ml/min Est GFR ( Amer) Est GFR (Non-Af Amer) BUN/Creatinine Ratio (10-20) Glucose (70-99) mg/dl POC Glucose 171 H 174 H 193 H (70-99) mg/dl Calcium (8.5-10.1) mg/dl Phosphorus (2.5-4.9) mg/dl Magnesium (1.8-2.4) mg/dl Total Bilirubin (0.2-1) mg/dl AST (15-37) U/L ALT (12-78) U/L Alkaline Phosphatase (45-117) U/L Total Protein (6.4-8.2) gm/dl Albumin (3.4-5.0) gm/dl Globulin (2.5-4.0) gm/dl Albumin/Globulin Ratio (0.9-2) Crossmatch 11/26/19 11/26/19 11/26/19 Range/Units 08:12 04:42 04:42 WBC 17.79 H (4.8-10.8) K/uL RBC 2.74 L (4.2-5.4) M/uL Hgb 8.6 L (12.0-16.0) g/dL Hct 25.3 L (37-47) % MCV 92.3 (80-100) fL MCH 31.4 (25-34) pg MCHC 34.0 (32-36) g/dL RDW Std Deviation 56.4 H (36.4-46.3) fL RDW Coeff of Taye 17.3 H (11.5-14.5) % Plt Count 297 (130-400) K/uL MPV 8.7 (7.4-10.4) fL Immature Gran % (Auto) 0.4 % Neut % (Auto) 94.5 % Lymph % (Auto) 3.5 % [place] % (Auto) 1.5 % Eos % (Auto) 0.0 % Baso % (Auto) 0.1 % Immature Gran # (Auto) 0.08 H (0.00-0.02) K/uL Neut # (Auto) 16.80 H (1.4-6.5) K/uL Lymph # (Auto) 0.63 L (1.2-3.4) K/uL [place] # (Auto) 0.27 (0.11-0.59) K/uL Eos # (Auto) 0.00 (0-0.5) K/uL Baso # (Auto) 0.01 (0-0.2) K/uL Sodium 135 L (136-145) mmol/L Potassium 3.6 (3.5-5.1) mmol/L Chloride 104 (98-107) mmol/L Carbon Dioxide 27 (21-32) mmol/L Anion Gap 4.0 (3-11) BUN 6 L (7-18) mg/dl Creatinine 0.72 (0.6-1.2) mg/dl Est Cr Clr Drug Dosing 81.4 ml/min Est GFR ( Amer) 104.0 Est GFR (Non-Af Amer) 89.8 BUN/Creatinine Ratio 8.2 L (10-20) Glucose 185 H (70-99) mg/dl POC Glucose 187 H (70-99) mg/dl Calcium 7.6 L (8.5-10.1) mg/dl Phosphorus 2.8 (2.5-4.9) mg/dl Magnesium 1.9 (1.8-2.4) mg/dl Total Bilirubin 3.3 H (0.2-1) mg/dl AST 66 H (15-37) U/L ALT 30 (12-78) U/L Alkaline Phosphatase 145 H (45-117) U/L Total Protein 4.4 L (6.4-8.2) gm/dl Albumin 1.8 L (3.4-5.0) gm/dl Globulin 2.6 (2.5-4.0) gm/dl Albumin/Globulin Ratio 0.7 L (0.9-2) Crossmatch 11/24/19 Range/Units 09:52 WBC (4.8-10.8) K/uL RBC (4.2-5.4) M/uL Hgb (12.0-16.0) g/dL Hct (37-47) % MCV (80-100) fL MCH (25-34) pg MCHC (32-36) g/dL RDW Std Deviation (36.4-46.3) fL RDW Coeff of Taye (11.5-14.5) % Plt Count (130-400) K/uL MPV (7.4-10.4) fL Immature Gran % (Auto) % Neut % (Auto) % Lymph % (Auto) % [place] % (Auto) % Eos % (Auto) % Baso % (Auto) % Immature Gran # (Auto) (0.00-0.02) K/uL Neut # (Auto) (1.4-6.5) K/uL Lymph # (Auto) (1.2-3.4) K/uL [place] # (Auto) (0.11-0.59) K/uL Eos # (Auto) (0-0.5) K/uL Baso # (Auto) (0-0.2) K/uL Sodium (136-145) mmol/L Potassium (3.5-5.1) mmol/L Chloride (98-107) mmol/L Carbon Dioxide (21-32) mmol/L Anion Gap (3-11) BUN (7-18) mg/dl Creatinine (0.6-1.2) mg/dl Est Cr Clr Drug Dosing ml/min Est GFR ( Amer) Est GFR (Non-Af Amer) BUN/Creatinine Ratio (10-20) Glucose (70-99) mg/dl POC Glucose (70-99) mg/dl Calcium (8.5-10.1) mg/dl Phosphorus (2.5-4.9) mg/dl Magnesium (1.8-2.4) mg/dl Total Bilirubin (0.2-1) mg/dl AST (15-37) U/L ALT (12-78) U/L Alkaline Phosphatase (45-117) U/L Total Protein (6.4-8.2) gm/dl Albumin (3.4-5.0) gm/dl Globulin (2.5-4.0) gm/dl Albumin/Globulin Ratio (0.9-2) Crossmatch See Detail
[2019-11-27] MEDS: LACTATED RINGER'S 1,000 ML IV SCH (00:06)
[2019-11-27] MEDS ORDERED: FUROSEMIDE 40 MG in SYRINGE 0 ML IV ONE (03:15)
[2019-11-27] MEDS: HYDROCORTISONE SOD 50 MG in SYRINGE 0 ML IV SCH ×4 (03:49→22:12)
[2019-11-27] MEDS ORDERED: LORazepam 0.5 MG/1 ML VIAL IV STA (04:13)
[2019-11-27] MEDS ORDERED: LORazepam 2 MG/4 ML VIAL ONE (04:16)
[2019-11-27] MEDS ORDERED: HydrALAZINE HCL 20 MG/ML VIAL ONE (04:43)
[2019-11-27] MEDS: LEVOTHYROXINE SODIUM 25 MCG TABLET PO SCH (06:14)
[2019-11-27 06:29] LABS: Hematocrit (blood only) 27.2 % (37-47); Immature Granulocytes # (auto) 0.07 K/uL (0.00-0.02); Immature Granulocytes % (auto) 0.4 %; Lymphocytes # (auto) 0.65 K/uL (1.2-3.4); Mean Corpuscular Hemoglobin 31.1 pg (25-34); Mean Corpuscular Hgb Conc 33.1 g/dL (32-36); Mean Corpuscular Volume 94.1 fL (80-100); Mean Platelet Volume 8.6 fL (7.4-10.4); Monocytes # (auto) 0.28 K/uL (0.11-0.59); Monocytes % (auto) 1.7 %; Neutrophils # (auto) 15.33 K/uL (1.4-6.5); Neutrophils % (auto) 93.9 %; Platelet Count 294 K/uL (130-400); RDW Coefficient of Variation 17.6 % (11.5-14.5); RDW Standard Deviation 59.2 fL (36.4-46.3); Red Blood Count 2.89 M/uL (4.2-5.4); White Blood Count 16.33 K/uL (4.8-10.8)
--- NOTE | 2019-11-27 06:39 | Magnetic Resonance Report ---
MRCP CLINICAL HISTORY: elevated LFTs TECHNIQUE: Utilizing a 1.5 Tawanna magnet and dedicated coil, multiplanar, multiecho imaging of the [facility] er abdomen was performed utilizing heavily T2 weighted pulsing sequences without IV contrast. COMPARISON STUDY: CT of the abdomen and pelvis and right upper quadrant ultrasound November 17, 2019. FINDINGS: Imaged portions of the lower chest demonstrate a moderate right pleural effusion which is n ew since CT of November 17, 2019. There is trace left pleural effusion. Left lower lung airspace opaci ty is noted. Suspected left-sided chest tubes are noted. Right lower lung opacity reflects atelectasi s. Mild cardiomegaly is noted. There is evidence for volume overload. A small amount of abdominal and pelvic ascites is noted. Mild biliary ductal dilatation is noted. Common bile duct measures 1.1 cm i n caliber. This is similar to CT of February 26, 2018. The gallbladder is surgically absent. No definite common bile duct calculi are identified. Exam is mildly compromised by artifact. Marked fatty infilt ration of the liver is better depicted on prior CT. There is moderate hepatomegaly. There is borderli ne splenomegaly. Patient is status post [place]-en-Y gastric bypass. There is no hydronephrosis. The laurence iber of the main pancreatic duct is normal. IMPRESSION: 1. Mild biliary ductal dilatation which is similar to CT of February 26, 2018. This is likely related to previous cholecystectomy. No common bile duct calculi identified although exam mildly compromised by motion artifact. 2. Evidence for volume overload. Small amount of ascites. Moderate right pleural effusion with trace left pleural effusion with left-sided chest tubes in place. Left lower lung airspace opacity. 3. Marked fatty infiltration of the liver. Moderate hepatomegaly. ACT 112: Negative or not required by law. Electronically signed by: Bernardino Baig M.D. 11/27/2019 6:37 AM
[2019-11-27] MEDS: CEFTAROLINE FOSAMIL ACETATE 600 MG in SODIUM CHLORIDE 0.9% 250 ML IV SCH ×2 (06:40→17:36)
[2019-11-27 06:46] LABS: Albumin Level 1.4 gm/dl (3.4-5.0); BUN Creatinine Ratio 10.2 (10-20); Calcium 7.9 mg/dl (8.5-10.1); Creatinine Clr Calc Pharmacy 72.5 ml/min; Est GFR (African American) 90.2; Est GFR (Non-African American) 77.8; Magnesium 1.9 mg/dl (1.8-2.4); Potassium 3.3 mmol/L (3.5-5.1)
[2019-11-27 06:49] LABS: Albumin Globulin Ratio 0.4 (0.9-2); Bilirubin,Total 3.2 mg/dl (0.2-1); Globulin 3.2 gm/dl (2.5-4.0); Phosphorus 3.1 mg/dl (2.5-4.9); Total Protein 4.6 gm/dl (6.4-8.2)
--- NOTE | 2019-11-27 07:14 | XRay Report ---
XR chest 1V portable CLINICAL HISTORY: empyema dyspnea COMPARISON STUDY: 11/26/2019 FINDINGS: 2 left-sided chest tubes are unchanged in position. There is under catheter in superior dylan a cava. Prominent pulmonary vasculature is unchanged. No evidence for pneumothorax. IMPRESSION: Unchanging findings of pulmonary edema. Unchanging postoperative change left lung base w ith no evidence for pneumothorax. ACT 112: Negative or not required by law. The above report was generated using voice recognition software. It may contain grammatical, syntax or spelling errors. Electronically signed by: Konrad Issa M.D. 11/27/2019 7:12 AM
[2019-11-27] MEDS: INSULIN ASPART 100 UNITS/ML 3 ML PEN SC SCH ×4 (07:23→23:30)
[2019-11-27] MEDS ORDERED: ICU ELECTROLYTE REPLACEMENT PROTOCOL PRN (08:53)
--- NOTE | 2019-11-27 09:01 | Infectious Disease Progress Nt ---
Date of Service November 27, 2019 Assessment & Plan (1) Gram positive sepsis: continue ceftaroline due to lung involvement. follow cultures 11/24 negative to date. for OR later today, await findings. will need several weeks of IV abx. Subjective now on ceftaroline, tolerating well. For OR later today, afebrile 11/24 blood cultures remain negative. Results & Data Vital Signs (Past 12 Hours) Vital Signs Temp Pulse Resp BP Pulse Ox 11/27/19 06:01 77 21 110/54 L 95 11/27/19 06:00 36.9 C 76 20 97 11/27/19 04:00 37 C 71 22 109/58 L 98 11/27/19 03:00 73 19 108/59 L 98 11/27/19 02:00 37 C 76 20 108/55 L 97 11/27/19 01:35 74 22 96 11/27/19 01:00 78 18 105/52 L 95 11/27/19 00:00 36.9 C 78 19 115/58 L 99 11/26/19 23:20 76 19 97 11/26/19 23:00 80 20 104/57 L 99 11/26/19 22:00 36.9 C 78 4 L 102/53 L 99 11/26/19 21:45 96 H 12 100 PG Care Time/CCT Total # of Minutes Spent Total Time Spent with Patient: Total time spent is greater than 50% in coordinat ion of care (as documented) at patient's floor/unit and/or counseling patient:
--- NOTE | 2019-11-27 09:05 | Critical Care Progress Note ---
Date of Service November 27, 2019 Assessment & Plan (1) Acute hypoxemic respiratory failure: Impression: 63-year-old female with history of diabetes hypertension and prior bariatric surgery presenting with nausea and vomiting found to have incidentally persistent bacteremia with right septic knee. She is brought to the ICU post video-assisted thoracoscopic washout for complicated parapneumonic effusion. 24-hour events: Remains off pressors. She did require BiPAP for a brief period of time yesterday. She is back to high flow mask. She states her breathing is better. She was diuresed. Her blood pressure continues to improve. She was initially anticipating going to the OR tomorrow for washout of the knee however due to OR scheduling this was bumped and has been rescheduled for today. Recommendations: 1. Severe sepsis with septic shock: Remains off pressors. Relative adrenal insufficiency confirmed with cortisol of 16 in the setting of pressor use. Continue Florinef and hydrocortisone. Continue oral midodrine. 2. Persistent MRSA bacteremia: Last blood cultures positive were 11/20/2019. Surveillance cultures from 11/24/2019 no growth to date. Changed from daptomycin to ceftaroline 11/26/2019 pulmonary penetration given her x-ray pattern. White blood cell count continues to decrease. No fevers. 3. Empyema: Chest tube management per thoracic surgery. 6 to 8 weeks of antibiotics will be necessitated 4. Hypoxemic respiratory failure: Weaning oxygen as tolerated. Continue diuretics. Start Lasix 20 mg every 8 hours follow blood pressure electrolytes and serum creatinine. 5. Anemia: Suspect slow ooze from gastric ulcer. B12 and folate acceptable. On PPI. Discussed with GI. They may consider Carafate. Continue Cytotec. Continue serial hemoglobin and hematocrit. Transfusion threshold around 7-1/2. Stable today 6. Hyponatremia: Now resolved. Continue to trend 7. Abnormal LFTs: AST and ALT and bilirubin improving. MRCP ordered by GI. Appreciate GI consultants 8. Hypocalcemia, hypomagnesemia, hypokalemia: Continue replacement protocols 9. Septic left knee: To the OR with orthopedics for washout today. Okay for general anesthesia from a medical standpoint. Timing per orthopedics and anesthesia 10. Mild hyperglycemia: Sliding scale insulin per protocol. May be aggravated by steroids. Continue lantus while on hydrocortisone and follow. 11. Urinary tract infection: Urine growing sensitive E. coli and Klebsiella. Covered by ceftaroline Can potentially transfer to the floor later today or tomorrow after her OR procedure is completed. (2) Pleural effusion: (3) Septic shock: Review of Systems Review of Systems: Unchanged from prior Physical Exam Eyes: PERRL Neck: trachea midline, no thyromegaly Respiratory: Coarse rhonchi bilaterally. Chest tube output decreasing down to 1-200 mils per 24 hours. No significant air leak Cardiovascular: RRR, no murmur, no edema Gastrointestinal (Abdomen): normal bowel sounds, soft, nontender, no hepatosplenomegaly Skin: no rashes, warm and dry Results & Data Vital Signs (Past 12 Hours) Vital Signs Temp Pulse Resp BP Pulse Ox 11/27/19 06:01 77 21 110/54 L 95 11/27/19 06:00 36.9 C 76 20 97 11/27/19 04:00 37 C 71 22 109/58 L 98 11/27/19 03:00 73 19 108/59 L 98 11/27/19 02:00 37 C 76 20 108/55 L 97 11/27/19 01:35 74 22 96 11/27/19 01:00 78 18 105/52 L 95 11/27/19 00:00 36.9 C 78 19 115/58 L 99 11/26/19 23:20 76 19 97 11/26/19 23:00 80 20 104/57 L 99 11/26/19 22:00 36.9 C 78 4 L 102/53 L 99 11/26/19 21:45 96 H 12 100 11/26/19 21:00 80 20 110/58 L 97 Laboratory Results 11/27/19 06:09 11/27/19 06:09 Diagnostic Findings Chest x-ray from today was independently reviewed and compared to prior films. There are persistent hazy opacities in the bilateral, slightly better compared to yesterday. Chest tubes remain in place. MRCP 11/27/2019. Mild biliary ductal dilatation similar to February 2018. No common bile duct stone identified however there was some motion artifact. Small ascites with small right pleural effusion and trace left effusion. Hepatomegaly with fatty infiltration Coding Level of Care Code 98582 Subseq Hosp Care Lvl 3 Diagnoses Acute hypoxemic respiratory failure J96.01 Pleural effusion J90 Septic shock A41.9; R65.21
[2019-11-27] MEDS ORDERED: CALCIUM CHLORIDE 10% 1,000 MG in SODIUM CHLORIDE 0.9% 50 ML IV ONE (09:15)
--- NOTE | 2019-11-27 09:16 | Gastroenterology Progress Note ---
Date of Service November 27, 2019 Assessment & Plan (1) LFT elevation: 63 year old female with complicated hospital course w/ persistently elevated LFTS although transaminases are improving. Initially presented with abd pain, nausea/vomiting which has since resolved. She does have chronic abbie stomatic ulcer s/p RYGB and does report chronic abd pain. She tells me this AM she has ongoing ETOH use, but is vague about her consumption suggesting last use was days prior to admission, a few times a week, less than 10 shots of hard alcohol in a day. MRCP reviewed, no indication of biliary obstruction. Fatty liver changes, hepatomegaly. LFT elevation likely multifactorial - ?ETOH hepatitis, ETOH cirhrosis, sepsis. Will need OP GI follow up for evaluation and to rule out cirrhosis - Trend LFTs - Follow liver serologies - Strict ETOH cessation - Less than 2G of tylenol containing products - OP follow up with [facility] - Continue anti-reflux regiment - Acute hep panel pending - Autoimmune studies - ABBIE negative - AMA negative - ASMA positive - Await previously ordered labs for alpha-1 antitrypsin deficiency, Celiac, hemochromatosis, viral hepatitis, etc Will sign off. Recall if needed. Thank you for allowing us to participate in the care of this patient. Please call with any acute changes, questions or concerns. Please see addendum below with additional recommendation from my supervising physician. Supervising Physician Co-Signing Physician Notes I have discussed the patient's management with Sonia. Please refer to the nurse practitioner's note for the documented findings and plan of care. Subjective Pt was seen and evaluated. Chart reviewed. To OR today. Denies any abd pain, nausea, vomiting. No GERD. No CP, SOB. MRCP negative from a biliary standpoint Review of Systems Gastrointestinal: no abdominal pain, no change in bowel habits, no blood in stools and no melena Physical Exam Constitutional: + ill appearing Neck: trachea midline Respiratory: normal respiratory effort Cardiovascular: Rate/Rhythm: regular rhythm Gastrointestinal (Abdomen): normal bowel sounds, soft, nontender, no hepatosplenomegaly Results & Data Vital Signs (Past 12 Hours) Vital Signs Temp Pulse Resp BP Pulse Ox 11/27/19 06:01 77 21 110/54 L 95 11/27/19 06:00 36.9 C 76 20 97 11/27/19 04:00 37 C 71 22 109/58 L 98 11/27/19 03:00 73 19 108/59 L 98 11/27/19 02:00 37 C 76 20 108/55 L 97 11/27/19 01:35 74 22 96 11/27/19 01:00 78 18 105/52 L 95 11/27/19 00:00 36.9 C 78 19 115/58 L 99 11/26/19 23:20 76 19 97 11/26/19 23:00 80 20 104/57 L 99 11/26/19 22:00 36.9 C 78 4 L 102/53 L 99 11/26/19 21:45 96 H 12 100
[2019-11-27] MEDS: INSULIN GLARGINE SOLOSTAR 100 UNITS/ML 3 ML PEN SC SCH ×2 (09:30→19:26)
[2019-11-27] MEDS ORDERED: INSULIN GLARGINE SOLOSTAR 100 UNITS/ML 3 ML PEN SC STA (09:58)
[2019-11-27] MEDS ORDERED: FUROSEMIDE 20 MG in SYRINGE 0 ML IV ONE (10:00)
[2019-11-27] MEDS ORDERED: bisacodyL 10 MG SUPP PR ONE (10:00)
[2019-11-27] MEDS: DOCUSATE SODIUM 100 MG CAP PO SCH ×2 (10:11→19:18)
[2019-11-27] MEDS: MIDODRINE HCL 2.5 MG TAB PO SCH ×4 (10:12→18:41)
[2019-11-27] MEDS: miSOPROStoL 100 MCG TAB PO SCH ×4 (10:12→19:19)
[2019-11-27] MEDS: SUCRALFATE 1 GM TAB PO SCH ×4 (10:12→19:17)
[2019-11-27] MEDS: FLUDROCORTISONE ACETATE 0.1 MG TAB PO SCH (10:13)
[2019-11-27] MEDS: GABAPENTIN 300 MG CAP PO SCH ×4 (10:13→19:19)
[2019-11-27] MEDS: FOLIC ACID 1 MG TAB PO SCH (10:13)
[2019-11-27] MEDS: THIAMINE HCL 100 MG TAB PO SCH (10:14)
[2019-11-27] MEDS: PANTOprazole 40 MG TAB PO SCH (10:15)
[2019-11-27] MEDS: MAGNESIUM CHLORIDE 64MG DELAYED REL TAB PO SCH ×2 (10:19→19:20)
[2019-11-27] MEDS: POTASSIUM CHLORIDE / WTR 20 MEQ/100 ML PLCT IV SCH ×4 (10:24→19:46)
[2019-11-27] MEDS: MoRPHine SULFATE 2 MG/ML CARP IV PRN (10:58)
[2019-11-27] MEDS: CYANOCOBALAMIN 500 MCG TABLET (VITAMIN B-12) PO SCH (10:59)
[2019-11-27] MEDS: ENOXAPARIN INJ 40 MG/0.4 ML SYR SQ SCH (11:00)
--- NOTE | 2019-11-27 11:37 | Progress Note ---
DATE: 11/27/2019 Ms. Kelley was seen today on 11/27/2019. I am concerned about this patient. She has a septic left knee, which is to be drained today. She is requiring more oxygen. Having said that, I believe that Dr. Bergeron is correct that she is probably fluid overloaded. Her x-ray, I think looks a bit better today, although the official radiology interpretation is no change. I certainly do not see evidence of pneumothorax or pleural effusions. I do not see an air leak today. In addition, her drainage is decreased. Both tubes put out 432 mL. This is serous in appearance. Her white count is 16,330. Her hemoglobin is 9.0. This woman has multiple issues that I am quite concerned about. She is malnourished with hypoalbuminemia, sepsis, repeatedly positive blood cultures over the last few months with multiple sites of infection including her left axilla, empyema, and urinary tract infections along with her septic left knee. At this point, I agree with irrigating out her knee in the hopes that we will achieve a bit better clinical stability. From a thoracic surgery standpoint, I am pleased with her. The fact that she has no air leak is a very positive sign. We will hopefully get her chest tubes out in the next few days.
[2019-11-27] MEDS: FUROSEMIDE 20 MG in SYRINGE 0 ML IV SCH ×2 (14:06→22:12)
[2019-11-27] MEDS ORDERED: ONDANSETRON INJ 2 MG/ML 2 ML VIAL ONE (15:12)
[2019-11-27] MEDS ORDERED: LIDOCAINE HCL 2% 2 ML VIAL/AMP(20MG/ML) INFIL ONE (15:12)
[2019-11-27] MEDS ORDERED: MIDAZOLAM HCL 1 MG/ML 2ML VIAL ONE (15:12)
[2019-11-27] MEDS ORDERED: PROPOFOL IV EMULSION 10 MG/ML 20 ML VIAL IV ONE (15:12)
[2019-11-27] MEDS ORDERED: fentaNYL citrate 100 MCG/2 ML VIAL ONE (15:13)
[2019-11-27 15:29] LABS: BUN Creatinine Ratio 9.6 (10-20); Calcium 8.2 mg/dl (8.5-10.1); Creatinine Clr Calc Pharmacy 71.1 ml/min; Est GFR (African American) 83.9; Est GFR (Non-African American) 72.4; Potassium 3.5 mmol/L (3.5-5.1)
[2019-11-27] MEDS ORDERED: ePHEDrine sulfate 50 MG/ML AMP IV PRN (15:37)
[2019-11-27] MEDS ORDERED: ATROPINE SULFATE 0.1 MG/ML 10ML SYR IV PRN (15:37)
--- NOTE | 2019-11-27 15:37 | Anesthesiology Consultation ---
Date of Service November 27, 2019 hypoxic respiratory failure multiple sites of infection/sepsis anemia alcoholism diabetes Assessment & Plan (1) Encounter for pre-operative examination: Chart Review Chart Review: Acceptable Risk for Surgery and Patient NOT seen in Pre Admission Testing Consults Requested none ASA ASA4 Proposed Anesthesia Anesthesia Type: General Risk / Benefits Reviewed With: PT / POA / Parent / Guardian, Accepts Plan and Informed Consent Obtained History Surgery Operation Date: 11/23/19 09:00 Proposed Procedures p Left Knee Arthroscopic I&D - Wilmer Rodriguez DO Operation Date: 11/24/19 07:00 Proposed Procedures p Left Thoracoscopy With Possible Decortication - Alexander Miranda MD, FACS Operation Date: 11/26/19 11:30 Proposed Procedures p Arthroscopic Incision and Drainage of Left Knee - Wilmer Rodriguez DO Operation Date: 11/27/19 13:25 Proposed Procedures p Arthroscopy Knee Incision and Drainage - Wilmer Rodriguez DO Height/Weight Height: 5 ft 5 in Weight: 80.5 kg Allergies Allergy/AdvReac Type Severity Reaction Status Date / Time Sulfa (Sulfonamide Allergy Severe FACE/THROAT Verified 11/17/19 02:12 Antibiotics) SWELL UP Medications Home Medications Medication Instructions Recorded Confirmed Last Taken cyanocobalamin (vitamin B-12) 500 mcg PO DAILY 08/16/19 11/17/19 11/12/19 [Vitamin B-12] esomeprazole magnesium [Nexium] 40 mg PO DAILY 08/16/19 11/17/19 11/12/19 folic acid 1 mg PO DAILY 08/16/19 11/17/19 11/12/19 misoprostol [Cytotec] 100 mcg PO QID 08/16/19 11/17/19 11/12/19 thiamine HCl (vitamin B1) [Vitamin 100 mg PO QAM #30 tab 08/22/19 11/17/19 0 11/12/19 B-1] meclizine 25 mg PO Q8H PRN #30 tab 09/29/19 11/17/19 Unknown duloxetine 30 mg PO BID 11/17/19 11/17/19 Unknown fludrocortisone 0.1 mg PO DAILY 11/17/19 11/17/19 Unknown gabapentin 300 mg PO TID 11/17/19 11/17/19 Unknown levothyroxine 25 mcg PO DAILY 11/17/19 11/17/19 11/12/19 nortriptyline 25 mg PO HS 11/17/19 11/17/19 Unknown sucralfate 1 g PO ACHS 11/17/19 11/17/19 Unknown Active Medications Generic Name Dose Route Start Last Admin Trade Name Freq PRN Reason Stop Dose Admin Cyanocobalamin 500 mcg 11/17/19 09:00 11/27/19 10:59 Vitamin B-12 PO 12/17/19 08:59 Not Given DAILY BABAK Docusate Sodium 100 mg 11/24/19 21:00 11/27/19 10:11 Colace PO 12/24/19 20:59 100 mg BID BABAK Administration Enoxaparin Sodium 40 mg 11/25/19 09:30 11/27/19 11:00 Lovenox SQ 12/25/19 09:29 Not Given QAM BABAK Fludrocortisone Acetate 0.1 mg 11/25/19 09:00 11/27/19 10:13 Florinef PO 12/25/19 08:59 0.1 mg QAM BABAK Administration Folic Acid 1 mg 11/17/19 09:00 11/27/19 10:13 Folvite PO 12/17/19 08:59 1 mg DAILY BABAK Administration Gabapentin 300 mg 11/17/19 09:00 11/27/19 14:23 Neurontin PO 12/17/19 08:59 Not Given TID BABAK Promethazine HCl 12.5 mg/ 50.5 mls @ 202 mls/hr 11/17/19 06:22 11/19/19 12:50 Sodium Chloride IV 12/17/19 06:21 Infused Q6H PRN Infusion Nausea And Vomiting Norepinephrine Bitartrate 8 mg 508 mls @ 0 mls/hr 11/24/19 18:00 11/25/19 17:35 / Dextrose IV 12/24/19 17:59 Not Given .Q0M BABAK Protocol 0 MCG/KG/MIN Lactated Ringer's 1,000 mls @ 50 mls/hr 11/24/19 18:15 11/27/19 00:06 Lr IV 12/24/19 18:14 50 mls/hr .Q20H BABAK Administration Hydrocortisone Sodium 1 mls @ 4 mls/min 11/25/19 10:00 11/27/19 09:26 Succinate 50 mg/ Syringe IV 12/25/19 09:59 4 mls/min Q6H BABAK Administration Ceftaroline Fosamil 600 mg/ 270 mls @ 270 mls/hr 11/26/19 15:00 11/27/19 08:04 Sodium Chloride IV 12/04/19 23:59 Infused Q8H BABAK Infusion Furosemide 20 mg/ Syringe 2 mls @ 4 mls/min 11/27/19 14:00 11/27/19 14:06 IV 12/27/19 13:59 4 mls/min Q8 BABAK Administration Insulin Aspart 0 units 11/24/19 21:15 11/27/19 11:45 Novolog Flexpen SC 12/24/19 21:14 Not Given ACHS BABAK Levothyroxine Sodium 25 mcg 11/17/19 06:30 11/27/19 06:14 Synthroid PO 12/17/19 06:29 25 mcg DAILYBB BABAK Administration Magnesium Chloride 64 mg 11/20/19 09:15 11/27/19 10:19 Slow-Mag PO 12/20/19 09:14 64 mg BID BABAK Administration Midodrine 5 mg 11/26/19 12:00 11/27/19 12:36 Proamatine PO 12/26/19 11:59 5 mg TID@0800,1200,1700 BABAK Administration Miscellaneous 15 - 30 gm 11/17/19 17:31 11/19/19 17:29 Carbohydrates For Hypoglycemia PO 12/17/19 17:30 30 gm UD PRN Administration Hypoglycemia Protocol Misoprostol 100 mcg 11/17/19 09:00 11/27/19 12:36 Cytotec PO 12/17/19 08:59 100 mcg QID BABAK Administration Morphine Sulfate 1 - 2 mg 11/24/19 19:17 11/27/19 10:58 Morphine Sulfate IV 12/08/19 19:16 2 mg Q1H PRN Administration Pain Pantoprazole Sodium 40 mg 11/17/19 09:00 11/27/19 10:15 Protonix PO 12/17/19 08:59 40 mg DAILY BABAK Administration Sucralfate 1 gm 11/17/19 07:30 11/27/19 11:46 Carafate Tab PO 12/17/19 07:29 Not Given ACHS [facility] Thiamine HCl 100 mg 11/17/19 09:00 11/27/19 10:14 Vitamin B-1 PO 12/17/19 08:59 100 mg QAM BABAK Administration NPO Date Last Intake of Fluids: 11/25/19 Time Last Intake of Fluids: 22:00 Date Last Intake of Solids: 11/25/19 Time Last Intake of Solids: 18:00 Past Medical History Medical History (Updated 11/26/19 @ 21:48 by Kamaljit Leavitt MD) Acute alcohol abuse (Chronic) Alcohol abuse Alcoholism Anemia, iron deficiency (Chronic) Arthritis (Chronic) Bacteremia Diabetes mellitus type 2, controlled DVT prophylaxis Esophagus disorder Gram positive sepsis Hypokalemia Small bowel obstruction (Resolved) Ulcer GI Exercise / Class Metabolic Activity II 4-5 Yardwork/Stairs/Walk up hill Past Family History Family History Other No pertinent family history in first degree relatives Past Surgical History Surgical History History of incision and drainage (08/18/19) Left Axillary Abscess Incision and Drainage Dr. Perdue 08/18/19 Status post appendectomy (Chronic) Status post cholecystectomy (Chronic) Status post gastric bypass for obesity (Chronic) Status post hysterectomy (Chronic) Past Anesthesia History No Hx of Anesthesia Complications and No Family Hx of Anesthesia Complications History of PONV No Hx of PONV and No Hx of Motion Sickness Social History Smoking Status: Former smoker tobacco type: cigarettes Hx Alcohol Use: Yes Alcohol type: beer and hard liquor alcohol intake frequency: 3 or more drinks per day Hx Substance Use: No substance use type: does not use Physical Exam Vital Signs Last Vital Signs Temp 36 C L 11/27/19 11:09 Pulse 80 11/27/19 11:32 Resp 22 11/27/19 11:32 BP 106/69 11/27/19 11:32 Pulse Ox 97 11/27/19 11:32 Constitutional + lethargic (answers questions appropriately) ENMT Mouth: no dentition abnormality Thyromental Distance: > or= 3.5 Finger Breadths Mallampati Class: IV pill fragment noted below tongue Neck normal visual inspection Respiratory normal respiratory effort Auscultation: lungs clear to auscultation bilaterally oxygen facemask, high flow Cardiovascular Rate/Rhythm: regular rate and regular rhythm Psychiatric Orientation: alert Testing Laboratory Results 11/27/19 06:09 11/27/19 15:02 PT 12.0 Seconds (9.0-12.0) 11/19/19 12:46 INR 1.2 (0.9-1.1) H 11/19/19 12:46 Hemoglobin A1c 4.9 % (4.5-5.6) 11/18/19 05:55 Urine Color [place] 11/22/19 18:38 Urine Appearance Cloudy (Clear) A 11/22/19 18:38 Urine pH 5.0 (4.5-7.5) 11/22/19 18:38 Ur Specific [place] 1.017 (1.000-1.030) 11/22/19 18:38 Urine Protein Trace (Negative) H 11/22/19 18:38 Urine Glucose (UA) Negative (Negative) 11/22/19 18:38 Urine Ketones Trace (Negative) H 11/22/19 18:38 Urine Nitrite Positive (Negative) A 11/22/19 18:38 Ur Leukocyte Esterase 2+ (Negative) H 11/22/19 18:38 Urine WBC (Auto) 10-30 /hpf (0-5) H 11/22/19 18:38 Urine RBC (Auto) 0-4 /hpf (0-4) 11/22/19 18:38 U Hyaline Cast (Auto) 5-10 /lpf (0-5) H 11/22/19 18:38 U Epithel Cells (Auto) >30 /lpf (0-5) H 11/22/19 18:38 Urine Bacteria (Auto) 2+ (Negative) H 11/22/19 18:38 Blood Type A Positive 11/24/19 09:52 Antibody Screen POSITIVE A 11/24/19 09:52 11/22/19 11:19 Gram Stain - Final Knee,Left Aerobic and Anaerobic Culture - Final Staph aureus MRSA 11/24/19 17:55 Aerobic Blood Culture - Preliminary Blood No growth in Aerobic bottle after 48 hours. Anaerobic Blood Culture - Preliminary No growth in Anaerobic bottle after 48 hours. 11/24/19 17:45 Aerobic Blood Culture - Preliminary Blood No growth in Aerobic bottle after 48 hours. Anaerobic Blood Culture - Preliminary No growth in Anaerobic bottle after 48 hours. 11/24/19 14:12 Gram Stain - Final Pleural Fluid Aerobic and Anaerobic Culture - Preliminary Staph aureus MRSA 11/24/19 10:44 Aerobic Blood Culture - Preliminary Blood No growth in Aerobic bottle after 48 hours. Anaerobic Blood Culture - Preliminary No growth in Anaerobic bottle after 48 hours. 11/24/19 10:35 Aerobic Blood Culture - Preliminary Blood No growth in Aerobic bottle after 48 hours. Anaerobic Blood Culture - Preliminary No growth in Anaerobic bottle after 48 hours. 11/24/19 15:24 Gram Stain - Final Chest Aerobic and Anaerobic Culture - Preliminary Staph aureus MRSA 11/24/19 15:24 Acid Fast Bacilli Smear - Final Lung 11/24/19 14:12 Acid Fast Bacilli Smear - Final Pleural Fluid 11/20/19 11:02 Aerobic Blood Culture - Preliminary Blood Staph aureus MRSA Anaerobic Blood Culture - Final No growth in Anaerobic bottle after 5 days. 11/20/19 11:14 Aerobic Blood Culture - Preliminary Blood Staph aureus MRSA Anaerobic Blood Culture - Final No growth in Anaerobic bottle after 5 days. 11/22/19 18:38 Urine Culture - Final Urine,Clean Catch Escherichia coli Klebsiella oxytoca 11/24/19 15:24 Fungal Smear - Final Chest 11/24/19 14:12 Fungal Smear - Final Pleural Fluid 11/19/19 11:33 Aerobic Blood Culture - Final Blood Staph aureus MRSA Anaerobic Blood Culture - Final No growth in Anaerobic bottle after 5 days. 11/19/19 11:33 Aerobic Blood Culture - Final Blood Staph aureus MRSA Anaerobic Blood Culture - Final No growth in Anaerobic bottle after 5 days. 11/18/19 06:04 Aerobic Blood Culture - Final Blood Staph aureus MRSA Anaerobic Blood Culture - Final No growth in Anaerobic bottle after 5 days. 11/18/19 05:55 Aerobic Blood Culture - Final Blood Staph aureus MRSA Anaerobic Blood Culture - Final No growth in Anaerobic bottle after 5 days. 11/17/19 02:36 Aerobic Blood Culture - Final Blood No growth in Aerobic bottle after 5 days. Anaerobic Blood Culture - Final Staph aureus MRSA 11/17/19 02:33 Aerobic Blood Culture - Final Blood No growth in Aerobic bottle after 5 days. Anaerobic Blood Culture - Final Staph aureus MRSA 11/27/19 11/27/19 11:44 06:20 POC Glucose 179 H 169 H Electrocardiogram Date: 11/17/19 Findings: + NSR @ Chest X-Ray Date: 11/23/19 complete opacification of L lung. congestive change in R lung. Echocardiogram Date: 01/14/20 EF: 65 LV Function: normal Other Findings: + LVH (mild) Valvular Disease: + no significant valvular disease
[2019-11-27] MEDS ORDERED: BACITRACIN INJ 50,000 UNIT VIAL ONE (15:40)
--- NOTE | 2019-11-27 15:41 | History & Physical Bridge Note ---
Date of Service November 27, 2019 History & Physical Bridge Note I have examined the patient, reviewed the History & Physical and in the interval since the performance of the History & Physical I have noted the following changes of clinical significance: no changes noted
--- NOTE | 2019-11-27 15:44 | Orthopedic Progress Note ---
Date of Service November 27, 2019 Assessment & Plan (1) Septic arthritis of knee, left: I have indicated the patient for arthroscopic irrigation debridement of left knee, the risks, benefits, complications and alternatives to the procedure were explained to the patient detail which include however not limited to infections, blood clots, acute blood loss, injury to surrounding nerves, bone, vessels, soft tissue, arthrofibrosis, chronic pain, need for repeat surgery, loss of limb and loss of life. Alternatives include no surgery which could result in worsening symptoms, patient wished to proceed with arthroscopic I and D and informed consent was obtained. Subjective Patient seen in preoperative holding, comfortable, denies pain in knee however does have pain at chest tube site. No acute issues overnight, 2 OR for arthroscopic I&D of left septic knee. Review of Systems Review of Systems: All systems reviewed & are unremarkable except as noted in HPI & below Constitutional: as per Subjective / HPI Physical Exam Physical Exam: LLE NVSI +EHL/FHL/TA/GS SILT grossly, +2 DP pulse, compartments soft NT, moderate knee effusion and edema mild erythema. Constitutional: WD/WN, vitals as above Results & Data Vital Signs (Past 12 Hours) Vital Signs Temp Pulse Resp BP Pulse Ox 11/27/19 11:32 80 22 106/69 97 11/27/19 11:09 36 C L 11/27/19 11:02 80 25 H 118/64 97 11/27/19 10:32 80 25 H 122/60 97 11/27/19 10:02 78 25 H 110/59 L 96 11/27/19 09:32 91 H 23 104/57 L 94 11/27/19 08:32 79 24 114/47 L 95 11/27/19 08:02 86 28 H 104/52 L 11/27/19 08:00 35.9 C L 11/27/19 07:32 75 21 112/68 11/27/19 07:02 71 21 109/58 L 97 11/27/19 06:01 77 21 110/54 L 95 11/27/19 06:00 36.9 C 76 20 97 11/27/19 04:00 37 C 71 22 109/58 L 98 Laboratory Results 11/27/19 11/27/19 11/27/19 Range/Units 15:02 11:44 11:32 WBC (4.8-10.8) K/uL RBC (4.2-5.4) M/uL Hgb (12.0-16.0) g/dL Hct (37-47) % MCV (80-100) fL MCH (25-34) pg MCHC (32-36) g/dL RDW Std Deviation (36.4-46.3) fL RDW Coeff of Taye (11.5-14.5) % Plt Count (130-400) K/uL MPV (7.4-10.4) fL Immature Gran % (Auto) % Neut % (Auto) % Lymph % (Auto) % [place] % (Auto) % Eos % (Auto) % Baso % (Auto) % Immature Gran # (Auto) (0.00-0.02) K/uL Neut # (Auto) (1.4-6.5) K/uL Lymph # (Auto) (1.2-3.4) K/uL [place] # (Auto) (0.11-0.59) K/uL Eos # (Auto) (0-0.5) K/uL Baso # (Auto) (0-0.2) K/uL Sodium 138 (136-145) mmol/L Potassium 3.5 (3.5-5.1) mmol/L Chloride 106 (98-107) mmol/L Carbon Dioxide 26 (21-32) mmol/L Anion Gap 6.0 (3-11) BUN 8 (7-18) mg/dl Creatinine 0.86 (0.6-1.2) mg/dl Est Cr Clr Drug Dosing 71.1 ml/min Est GFR ( Amer) 83.9 Est GFR (Non-Af Amer) 72.4 BUN/Creatinine Ratio 9.6 L (10-20) Glucose 156 H (70-99) mg/dl POC Glucose 179 H (70-99) mg/dl Calcium 8.2 L (8.5-10.1) mg/dl Phosphorus (2.5-4.9) mg/dl Magnesium (1.8-2.4) mg/dl Total Bilirubin (0.2-1) mg/dl AST (15-37) U/L ALT (12-78) U/L Alkaline Phosphatase (45-117) U/L Total Creatine Kinase 10 L (26-192) U/L Total Protein (6.4-8.2) gm/dl Albumin (3.4-5.0) gm/dl Globulin (2.5-4.0) gm/dl Albumin/Globulin Ratio (0.9-2) Crossmatch 11/27/19 11/27/19 11/27/19 Range/Units 06:20 06:09 06:09 WBC 16.33 H (4.8-10.8) K/uL RBC 2.89 L (4.2-5.4) M/uL Hgb 9.0 L (12.0-16.0) g/dL Hct 27.2 L (37-47) % MCV 94.1 (80-100) fL MCH 31.1 (25-34) pg MCHC 33.1 (32-36) g/dL RDW Std Deviation 59.2 H (36.4-46.3) fL RDW Coeff of Taye 17.6 H (11.5-14.5) % Plt Count 294 (130-400) K/uL MPV 8.6 (7.4-10.4) fL Immature Gran % (Auto) 0.4 % Neut % (Auto) 93.9 % Lymph % (Auto) 4.0 % [place] % (Auto) 1.7 % Eos % (Auto) 0.0 % Baso % (Auto) 0.0 % Immature Gran # (Auto) 0.07 H (0.00-0.02) K/uL Neut # (Auto) 15.33 H (1.4-6.5) K/uL Lymph # (Auto) 0.65 L (1.2-3.4) K/uL [place] # (Auto) 0.28 (0.11-0.59) K/uL Eos # (Auto) 0.00 (0-0.5) K/uL Baso # (Auto) 0.00 (0-0.2) K/uL Sodium 136 (136-145) mmol/L Potassium 3.3 L (3.5-5.1) mmol/L Chloride 104 (98-107) mmol/L Carbon Dioxide 24 (21-32) mmol/L Anion Gap 8.0 (3-11) BUN 8 (7-18) mg/dl Creatinine 0.81 (0.6-1.2) mg/dl Est Cr Clr Drug Dosing 72.5 ml/min Est GFR ( Amer) 90.2 Est GFR (Non-Af Amer) 77.8 BUN/Creatinine Ratio 10.2 (10-20) Glucose 173 H (70-99) mg/dl POC Glucose 169 H (70-99) mg/dl Calcium 7.9 L (8.5-10.1) mg/dl Phosphorus 3.1 (2.5-4.9) mg/dl Magnesium 1.9 (1.8-2.4) mg/dl Total Bilirubin 3.2 H (0.2-1) mg/dl AST 120 H (15-37) U/L ALT 48 (12-78) U/L Alkaline Phosphatase 254 H (45-117) U/L Total Creatine Kinase (26-192) U/L Total Protein 4.6 L (6.4-8.2) gm/dl Albumin 1.4 L (3.4-5.0) gm/dl Globulin 3.2 (2.5-4.0) gm/dl Albumin/Globulin Ratio 0.4 L (0.9-2) Crossmatch 11/26/19 11/26/19 11/26/19 Range/Units 21:05 16:06 11:11 WBC (4.8-10.8) K/uL RBC (4.2-5.4) M/uL Hgb (12.0-16.0) g/dL Hct (37-47) % MCV (80-100) fL MCH (25-34) pg MCHC (32-36) g/dL RDW Std Deviation (36.4-46.3) fL RDW Coeff of Taye (11.5-14.5) % Plt Count (130-400) K/uL MPV (7.4-10.4) fL Immature Gran % (Auto) % Neut % (Auto) % Lymph % (Auto) % [place] % (Auto) % Eos % (Auto) % Baso % (Auto) % Immature Gran # (Auto) (0.00-0.02) K/uL Neut # (Auto) (1.4-6.5) K/uL Lymph # (Auto) (1.2-3.4) K/uL [place] # (Auto) (0.11-0.59) K/uL Eos # (Auto) (0-0.5) K/uL Baso # (Auto) (0-0.2) K/uL Sodium (136-145) mmol/L Potassium (3.5-5.1) mmol/L Chloride (98-107) mmol/L Carbon Dioxide (21-32) mmol/L Anion Gap (3-11) BUN (7-18) mg/dl Creatinine (0.6-1.2) mg/dl Est Cr Clr Drug Dosing ml/min Est GFR ( Amer) Est GFR (Non-Af Amer) BUN/Creatinine Ratio (10-20) Glucose (70-99) mg/dl POC Glucose 171 H 174 H 193 H (70-99) mg/dl Calcium (8.5-10.1) mg/dl Phosphorus (2.5-4.9) mg/dl Magnesium (1.8-2.4) mg/dl Total Bilirubin (0.2-1) mg/dl AST (15-37) U/L ALT (12-78) U/L Alkaline Phosphatase (45-117) U/L Total Creatine Kinase (26-192) U/L Total Protein (6.4-8.2) gm/dl Albumin (3.4-5.0) gm/dl Globulin (2.5-4.0) gm/dl Albumin/Globulin Ratio (0.9-2) Crossmatch 11/24/19 Range/Units 09:52 WBC (4.8-10.8) K/uL RBC (4.2-5.4) M/uL Hgb (12.0-16.0) g/dL Hct (37-47) % MCV (80-100) fL MCH (25-34) pg MCHC (32-36) g/dL RDW Std Deviation (36.4-46.3) fL RDW Coeff of Taye (11.5-14.5) % Plt Count (130-400) K/uL MPV (7.4-10.4) fL Immature Gran % (Auto) % Neut % (Auto) % Lymph % (Auto) % [place] % (Auto) % Eos % (Auto) % Baso % (Auto) % Immature Gran # (Auto) (0.00-0.02) K/uL Neut # (Auto) (1.4-6.5) K/uL Lymph # (Auto) (1.2-3.4) K/uL [place] # (Auto) (0.11-0.59) K/uL Eos # (Auto) (0-0.5) K/uL Baso # (Auto) (0-0.2) K/uL Sodium (136-145) mmol/L Potassium (3.5-5.1) mmol/L Chloride (98-107) mmol/L Carbon Dioxide (21-32) mmol/L Anion Gap (3-11) BUN (7-18) mg/dl Creatinine (0.6-1.2) mg/dl Est Cr Clr Drug Dosing ml/min Est GFR ( Amer) Est GFR (Non-Af Amer) BUN/Creatinine Ratio (10-20) Glucose (70-99) mg/dl POC Glucose (70-99) mg/dl Calcium (8.5-10.1) mg/dl Phosphorus (2.5-4.9) mg/dl Magnesium (1.8-2.4) mg/dl Total Bilirubin (0.2-1) mg/dl AST (15-37) U/L ALT (12-78) U/L Alkaline Phosphatase (45-117) U/L Total Creatine Kinase (26-192) U/L Total Protein (6.4-8.2) gm/dl Albumin (3.4-5.0) gm/dl Globulin (2.5-4.0) gm/dl Albumin/Globulin Ratio (0.9-2) Crossmatch See Detail
--- NOTE | 2019-11-27 16:44 | Post Operative Brief Note ---
Immediate Post Op Note v1 Date of Surgery November 27, 2019 Pre & Post Diagnosis Operation Date: 11/23/19 09:00 <No data on this case meets the specified criteria> Operation Date: 11/24/19 07:00 Pre-Op Diagnosis: Left Pleural Effusion Post-Op Diagnosis: Left Pleural Effusion Operation Date: 11/26/19 11:30 <No data on this case meets the specified criteria> Operation Date: 11/27/19 13:25 Pre-Op Diagnosis: Septic arthritis of left knee. Post-Op Diagnosis: Septic arthritis of left knee. I identified the patient and participated in the time-out.: Yes Procedure Operation Date: 11/23/19 09:00 <No data on this case meets the specified criteria> Operation Date: 11/24/19 07:00 Actual Procedures p Left Thoracoscopy With Decortication(Left) - Alexander Miranda MD, FACS Operation Date: 11/26/19 11:30 <No data on this case meets the specified criteria> Operation Date: 11/27/19 13:25 Actual Procedures p Arthroscopy left knee incision and drainage with partial synovectomy.(Left) - Wilmer Rodriguez DO Surgeon Wilmer Rodriguez DO Architect Manager none Estimated Blood Loss 5 Findings Consistent with Post-Op Diagnosis Fluids 300 cc LR Specimens none Drains Chest Tube and Palencia Catheter Anesthesia Type General Disposition Disposition: Recovery Room Overlapping Procedure I was present for: the critical portions of procedure. I was immediately available: during the entire case. Back up surgeon: was not required during procedure.
--- NOTE | 2019-11-27 16:52 | Operative Report ---
Post Operative Report Pre & Post Diagnosis Operation Date: 11/23/19 09:00 <No data on this case meets the specified criteria> Operation Date: 11/24/19 07:00 Pre-Op Diagnosis: Left Pleural Effusion Post-Op Diagnosis: Left Pleural Effusion Operation Date: 11/26/19 11:30 <No data on this case meets the specified criteria> Operation Date: 11/27/19 13:25 Pre-Op Diagnosis: Septic arthritis of left knee. Post-Op Diagnosis: Septic arthritis of left knee. I identified the patient and participated in the time-out.: Yes Procedure Operation Date: 11/23/19 09:00 <No data on this case meets the specified criteria> Operation Date: 11/24/19 07:00 Actual Procedures p Left Thoracoscopy With Decortication(Left) - Alexander Miranda MD, FACS Operation Date: 11/26/19 11:30 <No data on this case meets the specified criteria> Operation Date: 11/27/19 13:25 Actual Procedures p Arthroscopy left knee incision and drainage with partial synovectomy.(Left) - Wilmer Rodriguez DO Surgeon Wilmer Rodriguez DO Hospice Chaplain none Estimated Blood Loss 5 Findings Consistent with Post-Op Diagnosis Fluids 300 cc LR Specimens None Anesthesia Type General Complications none Disposition Disposition: Recovery Room Description of Procedure The patient was brought to the operating room and placed in supine position and induced into general anesthesia per the anesthesia staff. A well-padded tourniquet was placed on the thigh and the left leg was prepped and draped in the usual standard manner with ChloraPrep. A time out was performed, pre- operative antibiotics given and site chaim confirmed. The left leg was elevated for 5 minutes and tourniquet inflated at 250 mmHg. I made a standard anterolateral viewing portal made through a stab incision and bluntly entered the suprapatellar pouch. Then under spinal needle localization I established an anteromedial portal. There was grade 3 cartilage of the patella. There was grade 3 cartilage of the trochlea. There was grade 4 cartilage of the medial femoral condyle. There was grade 4 cartilage of the medial tibial plateau. The medial meniscus was probed and was normal. The ACL and PCL were probed and were normal. The lateral meniscus was probed and was normal. There was grade 2 cartilage of the lateral femoral condyle. There was grade 3 cartilage of the lateral tibial plateau. A extensive synovectomy of hyptertrophic synovium was performed with a meniscal shaver. 9L in total of sterile saline solution with bacitracin was flushed through the knee joint. All of the instrumentation was removed from the knee. The portal sites were closed with 4-0 nylon. A sterile dressing was applied and the tourniquet was released at 19 minutes. All needle and sponge counts were correct at the end of the procedure. The patient was transferred to the ICU in stable condition without apparent complication. I attest to the content of the Intraoperative Record and any orders documented therein. Any exceptions are noted below.
[2019-11-27] MEDS ORDERED: SODIUM CHLORIDE 0.9% 1000ML 1,000 ML IV SCH (17:02)
[2019-11-27] MEDS ORDERED: bisacodyL 10 MG SUPP PR PRN (17:02)
[2019-11-27] MEDS ORDERED: MAGNESIUM HYDROXIDE SUSP 30 ML UDC PO PRN (17:02)
[2019-11-27] MEDS ORDERED: NALOXONE HCL 0.4 MG/1 ML VIAL/CARP IV PRN (17:02)
--- NOTE | 2019-11-27 17:47 | Anesthesiology Progress Note ---
Date of Service November 27, 2019 Anesthesia Post Procedure Vital Signs Vital Signs: Temp Pulse Resp BP Pulse Ox 11/27/19 17:30 90 20 121/71 100 11/27/19 17:25 95 H 15 126/64 100 11/27/19 17:20 114/63 100 11/27/19 17:15 99 H 19 131/68 100 11/27/19 17:10 36.6 C 103 H 19 102/81 100 11/27/19 16:00 81 11/27/19 11:32 80 22 106/69 97 11/27/19 11:09 36 C L 11/27/19 11:02 80 25 H 118/64 97 11/27/19 10:32 80 25 H 122/60 97 11/27/19 10:02 78 25 H 110/59 L 96 11/27/19 09:32 91 H 23 104/57 L 94 11/27/19 08:32 79 24 114/47 L 95 11/27/19 08:02 86 28 H 104/52 L 11/27/19 08:00 35.9 C L 74 11/27/19 07:32 75 21 112/68 11/27/19 07:02 71 21 109/58 L 97 11/27/19 06:01 77 21 110/54 L 95 11/27/19 06:00 36.9 C 76 20 97 11/27/19 04:00 37 C 71 22 109/58 L 98 11/27/19 03:00 73 19 108/59 L 98 11/27/19 02:00 37 C 76 20 108/55 L 97 11/27/19 01:35 74 22 96 11/27/19 01:00 78 18 105/52 L 95 11/27/19 00:00 36.9 C 78 19 115/58 L 99 11/26/19 23:20 76 19 97 11/26/19 23:00 80 20 104/57 L 99 11/26/19 22:00 36.9 C 78 4 L 102/53 L 99 11/26/19 21:45 96 H 12 100 11/26/19 21:00 80 20 110/58 L 97 11/26/19 20:00 36.9 C 79 21 117/46 L 99 11/26/19 19:00 76 17 98/56 L 97 01/22/20 18:13 96 H 15 98 11/26/19 18:00 77 14 98 Pain Intensity Back: Pain Intensity: 8 Left Chest: Pain Intensity: 7 Transfer of Care Handoff Completed per policy Notes Mental Status: see notes below Patient Amnestic to Procedure: Yes Nausea / Vomiting: adequately controlled Pain: adequately controlled Airway Patency, RR, SpO2: see Notes below BP & HR: stable & adequate Hydration State: stable & adequate Anesthetic Complications: no major complications apparent Notes: patient slowly awakening at end of case, opens eyes to voice and follows commands, but respiratory effort poor. given her poor preoperative pulmonary s tatus, she was left intubated and ventilated at the end of the procedure. this was discussed with the patient as a strong possibility preoperatively. i have given signout to the ICU team on staff.
[2019-11-27] MEDS: MIDAZOLAM HCL 1 MG/ML 2ML VIAL IV PRN (17:55)
--- NOTE | 2019-11-27 18:47 | XRay Report ---
KUB CLINICAL HISTORY: Enteric tube placement. FINDINGS: 2 AP, portable, supine abdominal radiographs are correlated with abdominal CT dated 11/17/19. Postoperative change is again seen projecting over the gastroesophageal junction. An enteric tube has been placed. The tip projects below the diaphragm. 2 chest tubes project over the left lung base . There is no radiographic evidence of bowel obstruction. The left pleural effusion is noted with ass ociated left basilar consolidation. There are healed right-sided rib fractures. IMPRESSION: The tip of the enteric tube projects below the diaphragm. Electronically signed by: Yury Brown M.D. 11/27/2019 6:46 PM
[2019-11-27] MEDS: fentaNYL citrate 100 MCG/2 ML VIAL IV PRN ×2 (19:45→22:42)
--- NOTE | 2019-11-27 19:49 | Orthopedic Progress Note ---
Date of Service November 27, 2019 Assessment & Plan (1) Septic arthritis of knee, left: s/p arthroscopic I+D Left knee -cefaroline -DVT ppx: SCDs, TEDs, Lovenox daily -WBAT LLE -PT/OT when medically stable -am labs Subjective Post Operative Progress Note Patient seen in ICU, intubated, opens eyes and comfortable appearing, following commands. Review of Systems Review of Systems: All systems reviewed & are unremarkable except as noted in HPI & below Constitutional: as per Subjective / HPI Physical Exam Physical Exam: LLE PE CR< 2 seconds, compartments soft NT, +EHL/FHL, dressing cdi Constitutional: WD/WN, vitals as above Results & Data Vital Signs (Past 12 Hours) Vital Signs Temp Pulse Pulse Resp BP Pulse Ox 11/27/19 19:16 77 23 115/70 97 11/27/19 18:40 74 20 111/61 99 11/27/19 18:35 36.3 C L 79 2 L 112/61 97 11/27/19 18:32 74 11/27/19 18:30 78 26 H 103/60 100 11/27/19 18:25 78 13 109/54 L 98 11/27/19 18:20 80 6 L 111/57 L 99 11/27/19 18:15 81 12 118/61 100 11/27/19 18:10 88 20 113/57 L 97 11/27/19 18:05 82 14 113/59 L 100 11/27/19 18:01 80 12 100 11/27/19 18:00 81 12 119/62 100 11/27/19 17:55 84 15 117/66 100 11/27/19 17:50 84 24 120/66 100 11/27/19 17:45 91 H 23 126/68 100 11/27/19 17:40 95 H 22 136/67 100 11/27/19 17:35 89 15 123/66 100 11/27/19 17:30 90 20 121/71 100 11/27/19 17:25 95 H 15 126/64 100 11/27/19 17:20 114/63 100 11/27/19 17:15 99 H 19 131/68 100 11/27/19 17:10 36.6 C 103 H 19 102/81 100 11/27/19 17:00 82 12 100 11/27/19 16:00 81 11/27/19 11:32 80 22 106/69 97 11/27/19 11:09 36 C L 11/27/19 11:02 80 25 H 118/64 97 11/27/19 10:32 80 25 H 122/60 97 11/27/19 10:02 78 25 H 110/59 L 96 11/27/19 09:32 91 H 23 104/57 L 94 11/27/19 08:32 79 24 114/47 L 95 11/27/19 08:02 86 28 H 104/52 L 11/27/19 08:00 35.9 C L 74
[2019-11-27] MEDS ORDERED: SENNA 8.6 MG TAB PO SCH (21:00)
[2019-11-27] MEDS ORDERED: DOCUSATE SODIUM 100 MG CAP PO SCH (21:00)
--- NOTE | 2019-11-27 21:19 | Hospitalist Progress Note ---
Date of Service November 27, 2019 Assessment & Plan (1) Gram positive sepsis: Presented with malaise, myalgias, nausea, vomiting. Afebrile at time of admission and white count was normal. Was not obviously septic, but was tachycardic and tachypneic and therefore, in retrospect, met criteria for sepsis per current CMS guidelines. Serum lactate was 1.9. Blood cultures were drawn and subsequently grew MRSA. Subsequently found to have MRSA empyema as well as MRSA septic arthritis of left knee. MRI of thoracic and lumbar spine did not show any apparent discitis, osteomyelitis, epidural abscess. Echocardiogram did not show any valvular vegetations. Started on IV vancomycin with positive blood cultures were reported. ID consulted. Repeat blood cultures on 11/18, 11/19, 11/20 were positive. Source control of empyema and septic arthritis as discussed below. Blood cultures from 11/24 remain negative. Antibiotic therapy IV vancomycin --> daptomycin --> ceftaroline. Long course of parental IV antibiotic therapy anticipated. (2) Hypotension: Recent orthostatic hypotension, started on fludrocortisone prior to admission. Hypotensive at time of admission. Volume depletion considered, but suspect that sepsis was a factor. Received IV fluids. Required pressor support after thoracoscopy Relative adrenal insufficiency, currently receiving hydrocortisone as well as fludrocortisone. May have underlying autonomic neuropathy. Started on midodrine. Follow hemodynamics, fluids status. (3) Empyema of left pleural space: Imaging at time of admission demonstrated a left pleural effusion. Thoracic Surgery consulted. Pleural fluid from thoracentesis grew MRSA. Thoracoscopy and decortication recommended for complex empyema. Procedure performed by Dr. Miranda on 11/24. Ongoing management per Thoracic Surgery. (4) Septic arthritis of knee, left: Experienced pain and swelling of left knee. Seen in consultation by Orthopedics. Arthrocentesis on 11/22/2019 demonstrated 78,000 WBCs (88% polys). Cultures subsequently grew MRSA. Receiving IV antibiotics as discussed above. Arthroscopic incision and drainage performed today. Further management per Orthopedics. (5) Urinary tract infection: Urine culture from 11/22/2019 grew E. coli and Klebsiella oxytoca. Received IV antibiotics. Discontinue Palencia catheter as soon as possible. (6) Acute respiratory failure with hypoxia: Requiring supplemental oxygen for hypoxia. Mechanical ventilation postop. Wean O2 as tolerated. (7) Left rib fracture: Multiple left rib fractures due to recent fall. Analgesics PRN. Incentive spirometry. (8) Anastomotic ulcer S/P gastric bypass: Status post [place] gastric bypass years ago. History anastomotic ulcer. No gross GI bleeding. Continue PPI, sucralfate, misoprostol. (9) LFT elevation: At time of admission, total bilirubin 4.6, AST 128, ALT 56, alkaline phosphatase 181. Ultrasound of abdomen on 11/17 demonstrated hepatic steatosis, no significant ductal dilatation, surgical absence of gallbladder. CT performed on the same day showed similar findings. GI consulted. Liver profile today demonstrated total bilirubin 3.2, AST 120, ALT 48, alkaline phosphatase 254. Further evaluation/management per GI. (10) Hyponatremia: Serum sodium 132 at time of admission and has remained relatively stable. Possible SIADH from pulmonary disease or SSRI. Serum sodium today = 136. Follow. (11) Hypokalemia: Serum potassium at time of admission 2.6. Hypokalemia probably multifactorial-inadequate oral intake, GI loss, mineralocorticoid therapy could all be contributing factors. Received replacement. Potassium today = 3.3. Follow. (12) Hypomagnesemia: Serum magnesium 1.6. Received replacement. Magnesium today = 1.9. Follow. (13) Diabetes mellitus type 2, controlled: Diabetes mellitus type 2, recently diet controlled. Hemoglobin A1c 4.9. Blood sugars as high as 214 due to acute illness; also had episodes of hypoglycemia. Receiving Lantus/NovoLog. Fasting blood sugar today = 169. (14) Anemia: Hemoglobin 10.5 at time of admission. Hemoglobin fell as low as 7.0. No gross GI bleeding. Serum iron 12, TIBC 70, transferrin 59, ferritin 385, B12 greater than 2000, folate 6.2, SPEP pending. Anemia probably multifactorial-possible blood loss from anastomotic ulcer and sepsis contributing factors. Has received 4 units of packed RBCs thus far. Hemoglobin today = 9.0. Follow H&H. (15) Alcoholism: History of alcoholism. Denies recent consumption, though she apparently inadvertently ate some Jell-O shots around the time of admission. Continue thiamine. (16) DVT prophylaxis: Enoxaparin. SCDs. Ambulate as able. (17) Discharge planning issues: Discharge disposition to be determined. Will likely need transition to rehab facility before returning home. Family Medicine follow-up with Dr. Quintanilla. Subjective Recheck for multiple problems. Patient seen in their room around 1900. Taken to OR today for arthroscopic incision and drainage of left knee. Returned to ICU on ventilator. Review of Systems: Unable to obtain due to ventilation / sedation. Physical Exam Constitutional: + ill appearing; no acute distress ENMT: Mouth: + oropharynx abnormality (oral ETT and GT) Respiratory: Auscultation: + rales (left base) Cardiovascular: Rate/Rhythm: regular rate and regular rhythm Vessels: no JVD Extremities: + edema (trace pretibial); no calf tenderness Gastrointestinal (Abdomen): normal bowel sounds, soft, nontender, no hepat osplenomegaly Skin: no rashes, warm and dry Psychiatric: Orientation: + not alert (sedated) Genitourinary: + bladder abnormality (Palencia cath) Results & Data Vital Signs (Past 12 Hours) Vital signs this morning @ 0600- temperature 36.9, pulse 76, respirations 20, BP 110/54. Laboratory Results 11/27/19 06:09 11/27/19 15:02 (1) Left rib fracture Encounter type: initial encounter Fracture type: closed Rib fracture type: multiple ribs Qualified Code(s): S22.42XA - Multiple fractures of ribs, left side, initial encounter for closed fracture
[2019-11-27] MEDS ORDERED: Nursing to Pharmacy Communication ONE (22:07)
[2019-11-28] MEDS: CEFTAROLINE FOSAMIL ACETATE 600 MG in SODIUM CHLORIDE 0.9% 250 ML IV SCH ×4 (00:10→23:44)
[2019-11-28] MEDS: MIDAZOLAM HCL 1 MG/ML 2ML VIAL IV PRN ×4 (00:11→07:39)
[2019-11-28] MEDS: INSULIN ASPART 100 UNITS/ML 3 ML PEN SC SCH ×4 (00:20→21:25)
[2019-11-28] MEDS: LACTATED RINGER'S 1,000 ML IV SCH ×3 (00:35→23:44)
[2019-11-28] MEDS: fentaNYL citrate 100 MCG/2 ML VIAL IV PRN ×3 (01:38→15:18)
[2019-11-28] MEDS: HYDROCORTISONE SOD 50 MG in SYRINGE 0 ML IV SCH ×4 (03:56→22:32)
[2019-11-28 04:18] LABS: Eosinophils # (auto) 0.01 K/uL (0-0.5); Eosinophils % (auto) 0.1 %; Hematocrit (blood only) 26.5 % (37-47); Immature Granulocytes # (auto) 0.03 K/uL (0.00-0.02); Immature Granulocytes % (auto) 0.3 %; Lymphocytes # (auto) 0.63 K/uL (1.2-3.4); Lymphocytes % (auto) 6.4 %; Mean Corpuscular Hemoglobin 31.4 pg (25-34); Mean Corpuscular Volume 92.3 fL (80-100); Mean Platelet Volume 9.1 fL (7.4-10.4); Monocytes # (auto) 0.11 K/uL (0.11-0.59); Monocytes % (auto) 1.1 %; Neutrophils # (auto) 9.07 K/uL (1.4-6.5); Neutrophils % (auto) 92.1 %; Platelet Count 296 K/uL (130-400); RDW Coefficient of Variation 17.2 % (11.5-14.5); RDW Standard Deviation 55.7 fL (36.4-46.3); Red Blood Count 2.87 M/uL (4.2-5.4); White Blood Count 9.85 K/uL (4.8-10.8)
[2019-11-28 04:20] LABS: Base Excess ABG 1.1 mEq/L (-9-1.8); HCO3 ABG 24 mmol/L (19-24); Oxygen Saturation ABG 94.6 % (90-95); PCO2 ABG 31 mmHg (35-46); PO2 ABG 70 mmHg (80-95)
[2019-11-28 04:22] LABS: Allen Test Pos (Pos)
[2019-11-28 04:30] LABS: pH ABG 7.51 (7.35-7.45)
[2019-11-28] MEDS: LEVOTHYROXINE SODIUM 25 MCG TABLET PO SCH (04:43)
[2019-11-28 04:44] LABS: Albumin Level 1.3 gm/dl (3.4-5.0); BUN Creatinine Ratio 11.2 (10-20); Bilirubin,Total 3.3 mg/dl (0.2-1); Calcium 7.6 mg/dl (8.5-10.1); Creatinine Clr Calc Pharmacy 71.1 ml/min; Est GFR (African American) 83.9; Est GFR (Non-African American) 72.4; Phosphorus 2.5 mg/dl (2.5-4.9); Total Protein 4.6 gm/dl (6.4-8.2)
[2019-11-28 04:49] LABS: Bilirubin Direct 2.1 mg/dl (0-0.2); Magnesium 1.7 mg/dl (1.8-2.4); Potassium 3.4 mmol/L (3.5-5.1)
[2019-11-28] MEDS ORDERED: POTASSIUM CHLORIDE / WTR 20 MEQ/100 ML PLCT IV ONE (05:11)
[2019-11-28] MEDS ORDERED: MAGNESIUM SULFATE / D5W 1 GM/100 ML BAG IV ONE (05:11)
[2019-11-28] MEDS ORDERED: POTASSIUM PHOS 3 MMOL/1 ML INFUSION IV STA (05:11)
[2019-11-28] MEDS ORDERED: POTASSIUM PHOSPHATE 15 MMOL in SODIUM CHLORIDE 0.9% 250 ML IV ONE (05:30)
[2019-11-28] MEDS: FUROSEMIDE 20 MG in SYRINGE 0 ML IV SCH (05:33)
[2019-11-28] MEDS: MAGNESIUM SULFATE / D5W 1 GM/100 ML BAG IV SCH ×2 (05:34→07:39)
[2019-11-28] MEDS: POTASSIUM CHLORIDE / WTR 20 MEQ/100 ML PLCT IV SCH ×2 (05:34→07:40)
--- NOTE | 2019-11-28 06:33 | XRay Report ---
XR chest 1V portable CLINICAL HISTORY: Resp Distress dyspnea COMPARISON STUDY: 11/27/2019 FINDINGS: Endotracheal tube placed 5 cm above the geovanny. Left-sided chest tubes are unchanged in pos ition. Aeration of both hemithoraces is perhaps somewhat improved. Pulmonary vasculature is slightly diminished in prominence. Central catheter remains in superior vena cava. IMPRESSION: 1. Endotracheal tube 5 cm above the geovanny.. 2. Improving postoperative changes left base with improving pulmonary vascular prominence. ACT 112: Negative or not required by law. The above report was generated using voice recognition software. It may contain grammatical, syntax or spelling errors. Electronically signed by: Konrad Issa M.D. 11/28/2019 6:32 AM
[2019-11-28] MEDS ORDERED: ALBUT/IPRATROP 3MG/0.5MG NEB 3 ML VIAL NEB STA ×2 (06:40→08:57)
[2019-11-28] MEDS ORDERED: MIDAZOLAM HCL 5 MG/ML VIAL IV STA (06:40)
[2019-11-28 07:10] LABS: Base Excess ABG -8.3 mEq/L (-9-1.8); HCO3 ABG 26 mmol/L (19-24); Oxygen Saturation ABG 99.1 % (90-95); PCO2 ABG 132 mmHg (35-46); PO2 ABG 233 mmHg (80-95)
[2019-11-28 07:12] LABS: Allen Test ALINE (Pos); pH ABG 6.91 (7.35-7.45)
[2019-11-28] MEDS ORDERED: PROPOFOL IV EMULSION 10 MG/ML 100 ML VIAL IV ONE (07:32)
[2019-11-28] MEDS: propofoL 1,000 MG/100 ML VIAL IV SCH ×2 (07:40→19:53)
--- NOTE | 2019-11-28 07:54 | Anesthesiology Progress Note ---
Date of Service November 28, 2019 Anesthesia Post Procedure Vital Signs Vital Signs: Temp Pulse Pulse Resp BP Pulse Ox 11/28/19 07:00 114 H 93 11/28/19 06:55 116 H 100 11/28/19 06:50 117 H 97 11/28/19 06:46 122 H 124/81 98 11/28/19 06:45 124 H 100 11/28/19 06:40 128 H 99 11/28/19 06:35 123 H 96 11/28/19 06:30 124 H 97 11/28/19 06:25 128 H 94 11/28/19 06:20 117 H 82 L 11/28/19 06:15 118 H 133/89 91 11/28/19 06:10 107 H 62 L 11/28/19 06:05 99 H 88 L 11/28/19 06:00 86 98 11/28/19 05:55 89 99 11/28/19 05:50 94 H 98 11/28/19 05:46 95 H 114/74 98 11/28/19 05:45 96 H 98 11/28/19 05:40 98 H 98 11/28/19 05:35 106 H 98 11/28/19 05:30 96 H 92 11/28/19 05:25 82 11/28/19 05:20 79 98 11/28/19 05:15 58 L 128/60 100 11/28/19 05:10 67 16 100 11/28/19 05:05 57 L 100 11/28/19 05:00 58 L 121/59 L 100 11/28/19 04:00 36.7 C 60 119/62 98 11/28/19 03:30 54 L 99 11/28/19 03:00 53 L 100 11/28/19 02:30 53 L 100 11/28/19 02:24 52 L 20 100 11/28/19 02:15 54 L 112/58 L 100 11/28/19 02:00 54 L 100 11/28/19 01:46 53 L 123/62 100 11/28/19 01:30 55 L 100 11/28/19 01:15 58 L 127/61 100 11/28/19 01:00 73 95 11/28/19 00:45 71 124/67 100 11/28/19 00:30 59 L 100 11/28/19 00:15 76 122/78 98 11/28/19 00:00 59 L 11/27/19 23:45 57 L 105/57 L 97 11/27/19 23:44 58 L 20 100 11/27/19 23:15 36.9 C 58 L 113/59 L 100 11/27/19 22:30 61 96 11/27/19 22:16 86 117/72 11/27/19 22:05 67 20 96 11/27/19 22:00 57 L 20 95 11/27/19 21:45 56 L 20 104/55 L 97 11/27/19 21:30 57 L 20 98 11/27/19 21:15 57 L 20 106/54 L 99 11/27/19 21:00 57 L 20 100 11/27/19 20:45 58 L 20 107/55 L 100 11/27/19 20:30 58 L 20 100 11/27/19 20:15 59 L 20 110/54 L 100 11/27/19 20:00 62 20 99 11/27/19 19:45 77 23 123/60 99 11/27/19 19:30 66 20 97 11/27/19 19:17 74 21 98 11/27/19 19:16 77 23 115/70 97 11/27/19 18:40 74 20 111/61 99 11/27/19 18:35 36.3 C L 79 2 L 112/61 97 11/27/19 18:32 74 11/27/19 18:30 78 26 H 103/60 100 11/27/19 18:25 78 13 109/54 L 98 11/27/19 18:20 80 6 L 111/57 L 99 11/27/19 18:15 81 12 118/61 100 11/27/19 18:10 88 20 113/57 L 97 11/27/19 18:05 82 14 113/59 L 100 11/27/19 18:01 80 12 100 11/27/19 18:00 81 12 119/62 100 11/27/19 17:55 84 15 117/66 100 11/27/19 17:50 84 24 120/66 100 11/27/19 17:45 91 H 23 126/68 100 11/27/19 17:40 95 H 22 136/67 100 11/27/19 17:35 89 15 123/66 100 11/27/19 17:30 90 20 121/71 100 11/27/19 17:25 95 H 15 126/64 100 11/27/19 17:20 114/63 100 11/27/19 17:15 99 H 19 131/68 100 11/27/19 17:10 36.6 C 103 H 19 102/81 100 11/27/19 17:00 82 12 100 11/27/19 16:00 81 11/27/19 11:32 80 22 106/69 97 11/27/19 11:09 36 C L 11/27/19 11:02 80 25 H 118/64 97 11/27/19 10:32 80 25 H 122/60 97 11/27/19 10:02 78 25 H 110/59 L 96 11/27/19 09:32 91 H 23 104/57 L 94 11/27/19 08:32 79 24 114/47 L 95 11/27/19 08:02 86 28 H 104/52 L 11/27/19 08:00 35.9 C L 74 Pain Intensity Back: Pain Intensity: 8 Left Chest: Pain Intensity: 7 Notes Mental Status: see notes below Patient Amnestic to Procedure: Yes Nausea / Vomiting: adequately controlled Pain: adequately controlled Airway Patency, RR, SpO2: see Notes below BP & HR: stable & adequate Hydration State: stable & adequate Anesthetic Complications: see Notes below Notes: Patient remained intubated post procedure due to poor respiratory effort and poor baseline pulmonary status. Remains intubated in ICU. Arousable to voice and no longer requiring pressors.
--- NOTE | 2019-11-28 07:55 | Procedure Note ---
Procedure Note Date of Service November 28, 2019 Note Procedure: Fiberoptic bronchoscopy Therapeutic aspiration of secretions Provider: Abdiel Bergeron MD Procedure was emergent. Patient ventilated. No family available for consent Called urgently to the bedside by the critical care JAIME due to inability to ventilate patient. She had gone to the OR yesterday for knee washout and was left intubated overnight. She done well overnight but this morning developed hypoxemic and hypercarbic respiratory failure with a near respiratory arrest. They had been bagging the patient on my arrival. We trouble shot the chest tubes and an x-ray showed no evidence of pneumothorax. She had minimal breath sounds and appeared extremely bronchospastic. Albuterol was administered 5 mL's down the endotracheal tube. We were able to suction some small plugs with some improvement. I called for the fiberoptic bronchoscope. The patient that point time was stable to be placed on the ventilator on an FiO2 of 100%. We advanced the fiberoptic bronchoscope through the Bodai adapter. There were thick tenacious secretions present in the endotracheal tube. Initially we are using a small bore scope however we changed to a conventional scope as the secretions were so tenuous they were blocking the channel. After the endotracheal tube was cleared, we inspected the lower airways. The main geovanny was sharp. There were thick mucoid secretions most prominently within the right lower lobe. These required extensive lavage. The scope had to be removed and reinserted multiple times due to secretions blocking the working channel. Eventually with extensive lavage we were able to clear these plugs. We then inspected the left-sided airways which also showed some mild lower lobe mucus plugging which was easily cleared with saline lavage. At the conclusion of the procedure, the airways appeared patent with minimally inflamed mucosa. No endobronchial lesions were identified. The patient remained on the mechanical ventilator with improvement in oxygenation, ventilation, and hemodyna mics Impression: 1. Endotracheal tube approximately 5 cm above the geovanny. 2. Extensive mucus plugging extending down into the right lower lobe, lavaged free with extensive saline. 3. Bronchospasm secondary to #2 Coding CPT Codes Pulmonary/Thoracic - Pulmonary and Thoracic: 01339 Bronchoscopy, clear airways ([id number]) [facility] Procedure Codes (Charges) Pulmonary/Thoracic Procedure 1: Pulmonary and Thoracic: 90548 Bronchoscopy, clear airways
[2019-11-28] MEDS: NOREPINEPHRINE BIT INJ 8 MG in DEXTROSE 5% 500 ML IV SCH ×3 (08:15→22:32)
[2019-11-28] MEDS: SUCRALFATE 1 GM TAB PO SCH (08:17)
[2019-11-28] MEDS: DOCUSATE SODIUM 100 MG CAP PO SCH (08:18)
[2019-11-28] MEDS: MIDODRINE HCL 2.5 MG TAB PO SCH (08:18)
[2019-11-28] MEDS: miSOPROStoL 100 MCG TAB PO SCH (08:19)
[2019-11-28] MEDS: FLUDROCORTISONE ACETATE 0.1 MG TAB PO SCH (08:19)
[2019-11-28] MEDS: MULTIVITAMIN TAB PO SCH (08:21)
[2019-11-28] MEDS: GABAPENTIN 300 MG CAP PO SCH (08:22)
[2019-11-28] MEDS: PANTOprazole 40 MG TAB PO SCH (08:22)
[2019-11-28] MEDS: MAGNESIUM CHLORIDE 64MG DELAYED REL TAB PO SCH (08:22)
[2019-11-28] MEDS: THIAMINE HCL 100 MG TAB PO SCH (08:22)
[2019-11-28] MEDS: CYANOCOBALAMIN 500 MCG TABLET (VITAMIN B-12) PO SCH (08:22)
[2019-11-28] MEDS: INSULIN GLARGINE SOLOSTAR 100 UNITS/ML 3 ML PEN SC SCH (08:31)
[2019-11-28] MEDS: ENOXAPARIN INJ 40 MG/0.4 ML SYR SQ SCH (09:02)
--- NOTE | 2019-11-28 09:26 | XRay Report ---
XR chest 1V portable HISTORY: 63 years-old Female s/p FOB; chest tube removal status post removal of left-sided chest tub es COMPARISON: Chest radiograph of same day at 6:13 AM TECHNIQUE: Portable AP view of the chest FINDINGS: Interval removal of the left-sided chest tubes. No left-sided pneumothorax identified. Mild pulmonary vascular congestion is suggested. Unchanged positioning of the left subclavian central venous cathet er. Endotracheal tube terminates 4.3 cm superior to the geovanny. Cardiac silhouette is mildly enlarged . Calcified plaque of the thoracic aortic arch. Medial lung apex is partially obscured by the patient 's chin. Small pleural effusions with persistent left greater than right bibasilar opacities. Pulmona ry vascular congestion. Degenerative changes of the shoulders and spine. IMPRESSION: 1. Status post removal of the left-sided chest tubes. No pneumothorax identified. 2. Satisfactory positioning of the endotracheal tube. 3. Small pleural effusions with left greater than right bibasilar opacities redemonstrated. ACT 112: Negative or not required by law. The above report was generated using voice recognition software. It may contain grammatical, syntax o r spelling errors. Electronically signed by: Mitchell Nina M.D. 11/28/2019 9:25 AM
--- NOTE | 2019-11-28 09:31 | Critical Care Progress Note ---
Date of Service November 28, 2019 Assessment & Plan (1) Acute hypoxemic respiratory failure: Impression: 63-year-old female with history of diabetes hypertension and prior bariatric surgery presenting with nausea and vomiting found to have incidentally persistent bacteremia with right septic knee. She is brought to the ICU post video-assisted thoracoscopic washout for complicated parapneumonic effusion. 24-hour events: Patient taken to the OR yesterday for washout of left knee. She returned intubated as her oxygenation status was marginal. She did well overnight with hemodynamic instability until early this morning when peak airway pressures increased and tidal volumes dropped. She was bagged by the critical care JAIME. Stat chest x-ray did not demonstrate any evidence of pneumothorax. Tubes were returned to suction. I arrived to find the patient profoundly bronchospastic. We administered albuterol through the tube with some improveme nt. Bronchoscopy was performed as well. Please see separate note. She had significant mucus plugging identified. Once the clot plugs were evacuated and bronchospasm was improved, the patient's respiratory mechanics improved significantly. She was initiated on Levophed during this course and did receive 1 dose of IV bicarb for significant acidosis. Follow-up blood gas is markedly improved. Recommendations: 1. Severe sepsis with septic shock: Back on pressors this morning however I suspect this is related to the patient's respiratory event this morning with profound acidosis and hypercapnic respiratory failure. Wean as tolerated. Rela tive adrenal insufficiency confirmed with cortisol of 16 in the setting of pressor use. Continue hydrocortisone. Holding midodrine and Florinef due to lack of enteric access currently. May need to consider restarting depending on clinical course. Try to defend systolic blood pressure 100-110 2. Persistent MRSA bacteremia: Last blood cultures positive were 11/20/2019. Surveillance cultures from 11/24/2019 no growth to date. Changed from daptomycin to ceftaroline 11/26/2019 2 improve pulmonary penetration given her x-ray pattern. White blood cell count continues to decrease. No fevers. Okay for PICC line today as will likely require long-term antibiotics 3. Empyema: Chest tube removed today. Follow chest x-ray 4. Hypoxemic respiratory failure: Hold diuretics given hemodynamic instability and respiratory issues today. Wean FiO2 and PEEP. Add DuoNebs every 6 hours to prevent additional plugging and bronchospasm 5. Anemia: Suspect slow ooze from gastric ulcer. On oral Cytotec currently on hold due to lack of enteric access. B12 and folate acceptable. On PPI. Continue serial hemoglobin and hematocrit. Transfusion threshold around 7-1/2. Stable today 6. Hyponatremia: Now resolved. Continue to trend 7. Abnormal LFTs: AST and ALT and bilirubin improving. MRCP ordered by GI. Appreciate GI consultants. Discussion about liver biopsy at some point 8. Hypocalcemia, hypomagnesemia, hypokalemia: Continue replacement protocols 9. Septic left knee: Status post washout per orthopedics. 10. Mild hyperglycemia: Sliding scale insulin per protocol. May be aggravated by steroids. Continue lantus and as needed insulin while on hydrocortisone and follow. 11. Urinary tract infection: Urine growing sensitive E. coli and Klebsiella. Covered by ceftaroline Continue to monitor in ICU pending ventilator (2) Pleural effusion: (3) Septic shock: Review of Systems Review of Systems: Unobtainable due to endotracheal tube Physical Exam Constitutional: Intubated and sedated Eyes: PERRL Neck: trachea midline, no thyromegaly Respiratory: Initially breath sounds were essentially absent. Were able to get back to where the patient had mid-to-late end expiratory wheezes bilaterally. Better now after bronchoscopy and albuterol Cardiovascular: RRR, no murmur, no edema Gastrointestinal (Abdomen): normal bowel sounds, soft, nontender, no hepatosplenomegaly Skin: no rashes, warm and dry Psychiatric: Intubated and sedated Results & Data Vital Signs (Past 12 Hours) Vital Signs Temp Pulse Pulse Resp BP Pulse Ox 11/28/19 08:25 20 11/28/19 08:00 36.7 C 11/28/19 07:44 20 11/28/19 07:00 114 H 93 11/28/19 06:55 116 H 135 H 99 11/28/19 06:50 117 H 97 11/28/19 06:46 122 H 124/81 98 11/28/19 06:45 124 H 120 H 99 11/28/19 06:40 128 H 99 11/28/19 06:35 123 H 96 11/28/19 06:30 124 H 97 11/28/19 06:25 128 H 94 11/28/19 06:20 117 H 82 L 11/28/19 06:15 118 H 133/89 91 01/24/20 06:10 107 H 62 L 11/28/19 06:05 99 H 88 L 11/28/19 06:00 86 98 11/28/19 05:55 89 99 11/28/19 05:50 94 H 98 11/28/19 05:46 95 H 114/74 98 11/28/19 05:45 96 H 98 11/28/19 05:40 98 H 98 11/28/19 05:35 106 H 98 11/28/19 05:30 96 H 92 11/28/19 05:25 82 11/28/19 05:20 79 98 11/28/19 05:15 58 L 128/60 100 11/28/19 05:10 67 16 100 11/28/19 05:05 57 L 100 11/28/19 05:00 58 L 121/59 L 100 11/28/19 04:00 36.7 C 60 119/62 98 11/28/19 03:30 54 L 99 11/28/19 03:00 53 L 100 11/28/19 02:30 53 L 100 11/28/19 02:24 52 L 20 100 11/28/19 02:15 54 L 112/58 L 100 11/28/19 02:00 54 L 100 11/28/19 01:46 53 L 123/62 100 11/28/19 01:30 55 L 100 11/28/19 01:15 58 L 127/61 100 11/28/19 01:00 73 95 11/28/19 00:45 71 124/67 100 11/28/19 00:30 59 L 100 11/28/19 00:15 76 122/78 98 11/28/19 00:00 59 L 11/27/19 23:45 57 L 105/57 L 97 11/27/19 23:44 58 L 20 100 11/27/19 23:15 36.9 C 58 L 113/59 L 100 11/27/19 22:30 61 96 11/27/19 22:16 86 117/72 11/27/19 22:05 67 20 96 11/27/19 22:00 57 L 20 95 11/27/19 21:45 56 L 20 104/55 L 97 11/27/19 21:30 57 L 20 98 Laboratory Results 11/28/19 04:06 11/28/19 04:06 Diagnostic Findings Multiple chest x-rays for this morning were all independently reviewed to be in decent position. Lung manzano show improved aeration with some haziness at the left lung base. Subclavian line in good position. No pneumothorax. Chest tubes remain in place on the initial film but have been removed on the most recent film Coding Level of Care Code Critical Care 1st 30-74 mins Diagnoses Acute hypoxemic respiratory failure J96.01 Pleural effusion J90 Septic shock A41.9; R65.21 Time Spent (min) 50 Comment 50 minutes critical care time managing life-threatening illness exclusive of procedures
[2019-11-28 09:32] LABS: iSTAT Hematocrit 32 % (37-47); iSTAT Hemoglobin 10.9 g/dl (12.0-16.0); iSTAT Potassium 3.9 mmol/L (3.3-5.0); iSTAT Sodium 139 mmol/L (135-144)
[2019-11-28 09:33] LABS: Patient Temperature 36.7; iSTAT Art Bld Gas pCO2 Correct 109 mmHg (35-46); iSTAT Arterial Blood Gas HCO3 27 meg/L (19-24); iSTAT Arterial Blood Gas pCO2 110 mmHg (35-46); iSTAT Arterial Blood Gas pO2 106 mmHg (80-95); iSTAT Arterial Blood Gas pO2 C 104; iSTAT Carbon Dioxide 30 mmol/L (24-31)
[2019-11-28 09:34] LABS: iSTAT Allen Test Not Performed; iSTAT Sample Type Arterial; iSTAT Site Art Line
[2019-11-28 09:35] LABS: iSTAT Sodium 137 mmol/L (135-144)
[2019-11-28 09:36] LABS: iSTAT Arterial Blood Gas HCO3 25 meg/L (19-24); iSTAT Arterial Blood Gas pCO2 40 mmHg (35-46); iSTAT Arterial Blood Gas pO2 229 mmHg (80-95); iSTAT Carbon Dioxide 26 mmol/L (24-31); iSTAT Hematocrit 28 % (37-47); iSTAT Hemoglobin 9.5 g/dl (12.0-16.0); iSTAT Potassium 3.8 mmol/L (3.3-5.0)
[2019-11-28 09:37] LABS: iSTAT Allen Test Not Performed; iSTAT FiO2 80 %; iSTAT Sample Type Arterial; iSTAT Site Art Line
[2019-11-28] MEDS: PANTOprazole 40 MG in SYRINGE 0 ML IV SCH ×2 (11:16→22:32)
[2019-11-28] MEDS ORDERED: INSULIN ASPART 100 UNITS/ML 3 ML PEN SC SCH (12:00)
[2019-11-28 12:15] LABS: BUN Creatinine Ratio 10.8 (10-20); Calcium 7.6 mg/dl (8.5-10.1); Creatinine Clr Calc Pharmacy 55.8 ml/min; Est GFR (African American) 63.7; Potassium 4.2 mmol/L (3.5-5.1)
--- NOTE | 2019-11-28 12:36 | Orthopedic Progress Note ---
Date of Service November 28, 2019 Assessment & Plan (1) Septic arthritis of knee, left: Postop day 1 s/p arthroscopic I+D Left knee I discussed the case with Dr. Rodriguez. Plan for discontinuation of the current dressing help with the foot swelling. Keep the left foot elevated at least on o ne pillow. -ceftaroline -DVT ppx: SCDs, TEDs, Lovenox daily -WBAT LLE -PT/OT when medically stable -am labs as noted above Subjective Postop day 1 Patient currently intubated. Currently does not arouse to light physical or verbal stimuli. Respiratory failure developed after patient had returned to the ICU, related to mucus plugging which was rectified. Nursing relates increased swelling on the operative side in the foot with discolored toes. She states that pulses were not palpable but could be found with Doppler. Physical Exam Physical Exam: Dressings are clean, dry, and intact. Patient does not arouse when palpating the left knee and lower extremity. Calves are soft. Left foot is noted to be swollen on the dorsal aspect and down to the toes. Toes are a dusky purple color. Refill is slightly sluggish. Pulses not palpable currently in that foot. Results & Data Vital Signs (Past 12 Hours) Vital Signs Temp Pulse Pulse Resp BP Pulse Ox 11/28/19 11:08 20 11/28/19 08:25 20 11/28/19 08:00 36.7 C 124 H 11/28/19 07:44 20 11/28/19 07:00 114 H 93 11/28/19 06:55 116 H 135 H 99 11/28/19 06:50 117 H 97 11/28/19 06:46 122 H 124/81 98 11/28/19 06:45 124 H 120 H 99 11/28/19 06:40 128 H 99 11/28/19 06:35 123 H 96 11/28/19 06:30 124 H 97 11/28/19 06:25 128 H 94 11/28/19 06:20 117 H 82 L 11/28/19 06:15 118 H 133/89 91 11/28/19 06:10 107 H 62 L 11/28/19 06:05 99 H 88 L 11/28/19 06:00 86 98 11/28/19 05:55 89 99 11/28/19 05:50 94 H 98 11/28/19 05:46 95 H 114/74 98 11/28/19 05:45 96 H 98 11/28/19 05:40 98 H 98 11/28/19 05:35 106 H 98 11/28/19 05:30 96 H 92 11/28/19 05:25 82 11/28/19 05:20 79 98 11/28/19 05:15 58 L 128/60 100 11/28/19 05:10 67 16 100 11/28/19 05:05 57 L 100 11/28/19 05:00 58 L 121/59 L 100 11/28/19 04:00 36.7 C 60 119/62 98 11/28/19 03:30 54 L 99 11/28/19 03:00 53 L 100 11/28/19 02:30 53 L 100 11/28/19 02:24 52 L 20 100 11/28/19 02:15 54 L 112/58 L 100 11/28/19 02:00 54 L 100 11/28/19 01:46 53 L 123/62 100 11/28/19 01:30 55 L 100 11/28/19 01:15 58 L 127/61 100 11/28/19 01:00 73 95 11/28/19 00:45 71 124/67 100 Laboratory Results Laboratory Results WBC 9.85 K/uL (4.8-10.8) 11/28/19 04:06 RBC 2.87 M/uL (4.2-5.4) L 11/28/19 04:06 Hgb 9.0 g/dL (12.0-16.0) L 11/28/19 04:06 POC Hgb 9.5 g/dl (12.0-16.0) L 11/28/19 08:22 Hct 26.5 % (37-47) L 11/28/19 04:06 POC Hct 28 % (37-47) L 11/28/19 08:22 MCV 92.3 fL (80-100) 11/28/19 04:06 MCH 31.4 pg (25-34) 11/28/19 04:06 MCHC 34.0 g/dL (32-36) 11/28/19 04:06 RDW Std Deviation 55.7 fL (36.4-46.3) H 11/28/19 04:06 RDW Coeff of Taye 17.2 % (11.5-14.5) H 11/28/19 04:06 Plt Count 296 K/uL (130-400) 11/28/19 04:06 MPV 9.1 fL (7.4-10.4) 11/28/19 04:06 Immature Gran % (Auto) 0.3 % 11/28/19 04:06 Neut % (Auto) 92.1 % 11/28/19 04:06 Lymph % (Auto) 6.4 % 11/28/19 04:06 Beaver % (Auto) 1.1 % 11/28/19 04:06 Eos % (Auto) 0.1 % 11/28/19 04:06 Baso % (Auto) 0.0 % 11/28/19 04:06 Reticulocyte % (Auto) 3.5 % (0.5-2.0) H 11/25/19 08:17 Immature Gran # (Auto) 0.03 K/uL (0.00-0.02) H 11/28/19 04:06 Neut # (Auto) 9.07 K/uL (1.4-6.5) H 11/28/19 04:06 Lymph # (Auto) 0.63 K/uL (1.2-3.4) L 11/28/19 04:06 Beaver # (Auto) 0.11 K/uL (0.11-0.59) 11/28/19 04:06 Eos # (Auto) 0.01 K/uL (0-0.5) 11/28/19 04:06 Baso # (Auto) 0.00 K/uL (0-0.2) 11/28/19 04:06 Reticulocyte # 0.08 10^6/uL (0.02-0.10) 11/25/19 08:17 Toxic Vacuolation Occasional 11/17/19 01:57 Dohle Bodies 1+ 11/18/19 05:55 Polychromasia 1+ 11/25/19 04:16 Anisocytosis Present 11/18/19 05:55 Target Cells 1+ 11/24/19 06:24 Rouleaux 1+ 11/17/19 01:57 ESR 63 mm/hr (0-21) H 11/23/19 06:48 PT 12.0 Seconds (9.0-12.0) 11/19/19 12:46 INR 1.2 (0.9-1.1) H 11/19/19 12:46 Specimen Type Arterial 11/28/19 08:22 Sample Site Art Line 11/28/19 08:22 Patient Temperature 37.0 11/28/19 08:22 POC pH 7.40 (7.35-7.45) 11/28/19 08:22 POC pCO2 40 mmHg (35-46) 11/28/19 08:22 POC pO2 229 mmHg (80-95) H 11/28/19 08:22 POC HCO3 25 mireille/L (19-24) H 11/28/19 08:22 POC Total CO2 26 mmol/L (24-31) 11/28/19 08:22 POC Base Excess 0.0 mireille/L (-9-1.8) 11/28/19 08:22 POC O2 Saturation 100 11/28/19 08:22 O2 Sat Pulse Oximetry 100 11/24/19 16:52 ABG pH 6.91 (7.35-7.45) L* 11/28/19 06:51 ABG pH (Temp Correct) 7.000 (7.35-7.45) L* 11/28/19 06:28 ABG pCO2 132 mmHg (35-46) H 11/28/19 06:51 ABG pCO2 (Temp Corrct 109 mmHg (35-46) H 11/28/19 06:28 ABG pO2 233 mmHg (80-95) H 11/28/19 06:51 POC ABG pO2 at Pt Temp 104 11/28/19 06:28 ABG HCO3 26 mmol/L (19-24) H 11/28/19 06:51 ABG O2 Saturation 99.1 % (90-95) H 11/28/19 06:51 ABG Base Excess -8.3 mEq/L (-9-1.8) 11/28/19 06:51 Juan Test Not Performed 11/28/19 08:22 Barometric Pressure 737.3 mm/Hg 11/28/19 06:51 Oxygen Given 100% 11/28/19 06:51 O2 Delivery Device Ventilator 11/28/19 08:22 POC O2 Rate 20 11/28/19 08:22 Minute Ventilation 8.7 11/28/19 08:22 Vent Mode AC 11/28/19 08:22 POC FiO2 80 % 11/28/19 08:22 Tidal Volume 450 11/28/19 08:22 PEEP 5 11/28/19 08:22 EPAP 5 11/24/19 16:52 IPAP 12 11/24/19 16:52 POC Sodium 137 mmol/L (135-144) 11/28/19 08:22 Sodium 135 mmol/L (136-145) L 11/28/19 11:46 POC Potassium 3.8 mmol/L (3.3-5.0) 11/28/19 08:22 Potassium 4.2 mmol/L (3.5-5.1) D 11/28/19 11:46 Chloride 105 mmol/L (98-107) 11/28/19 11:46 Carbon Dioxide 22 mmol/L (21-32) 11/28/19 11:46 Anion Gap 9.0 (3-11) 11/28/19 11:46 BUN 12 mg/dl (7-18) 11/28/19 11:46 Creatinine 1.08 mg/dl (0.6-1.2) 11/28/19 11:46 Est Cr Clr Drug Dosing 55.8 ml/min 11/28/19 11:46 Est GFR ( Amer) 63.7 11/28/19 11:46 Est GFR (Non-Af Amer) 55.0 11/28/19 11:46 BUN/Creatinine Ratio 10.8 (10-20) 11/28/19 11:46 Glucose 274 mg/dl (70-99) H 11/28/19 11:46 POC Glucose 197 mg/dl (70-99) H 11/28/19 06:49 POC Glucose (other) 255 mg/dl (70-99) H 11/28/19 11:50 Estimat Average Glucose 94 mg/dl 11/18/19 05:55 Hemoglobin A1c 4.9 % (4.5-5.6) 11/18/19 05:55 Lactate 1.2 mmol/L (0.4-2.0) 11/20/19 22:07 Calcium 7.6 mg/dl (8.5-10.1) L 11/28/19 11:46 Phosphorus 2.5 mg/dl (2.5-4.9) 11/28/19 04:06 Magnesium 1.7 mg/dl (1.8-2.4) L 11/28/19 04:06 Iron 12 mcg/dl (35-150) L 11/20/19 05:40 TIBC 70 mcg/dl (250-450) L 11/20/19 05:40 Transferrin 59 mg/dl (200-360) L 11/20/19 05:40 Ferritin 385.9 ng/ml (8-388) 11/19/19 12:46 Total Bilirubin 3.3 mg/dl (0.2-1) H 11/28/19 04:06 Direct Bilirubin 2.1 mg/dl (0-0.2) H 11/28/19 04:06 AST 189 U/L (15-37) H 11/28/19 04:06 ALT 72 U/L (12-78) 11/28/19 04:06 Alkaline Phosphatase 406 U/L (45-117) H 11/28/19 04:06 Ammonia < 10.0 umol/L (11-32) L 11/17/19 02:33 Total Creatine Kinase 10 U/L (26-192) L 11/27/19 11:32 Troponin I 0.025 ng/ml (0-0.045) 11/17/19 17:33 C-Reactive Protein 8.87 mg/dl (0-0.29) H 11/23/19 06:48 Total Protein 4.6 gm/dl (6.4-8.2) L 11/28/19 04:06 Albumin 1.3 gm/dl (3.4-5.0) L 11/28/19 04:06 Globulin 3.2 gm/dl (2.5-4.0) 11/27/19 06:09 Albumin/Globulin Ratio 0.4 (0.9-2) L 11/27/19 06:09 [id number] 275 mg/dL (83-199) H 11/21/19 11:17 Ceruloplasmin 21 mg/dL (18-53) 11/21/19 11:17 Lipase 92 U/L (73-393) 11/17/19 01:57 Vitamin B12 > 2000 pg/ml (211-911) H 11/25/19 08:17 Folate 6.20 ng/ml (>5.38) 11/25/19 08:17 TSH 4.340 uIu/ml (0.300-4.500) 11/20/19 22:07 Random Cortisol 17.87 mcg/dl 11/24/19 17:45 Specimen Hemolysis 11/28/19 04:06 Urine Color [place] 11/22/19 18:38 Urine Appearance Cloudy (Clear) A 11/22/19 18:38 Urine pH 5.0 (4.5-7.5) 11/22/19 18:38 Ur Specific [place] 1.017 (1.000-1.030) 11/22/19 18:38 Urine Protein Trace (Negative) H 11/22/19 18:38 Urine Glucose (UA) Negative (Negative) 11/22/19 18:38 Urine Ketones Trace (Negative) H 11/22/19 18:38 Urine Blood Trace (Negative) H 11/22/19 18:38 Urine Nitrite Positive (Negative) A 11/22/19 18:38 Urine Bilirubin 2+ (Negative) H 11/22/19 18:38 Urine Urobilinogen Negative (Negative) 11/22/19 18:38 Ur Leukocyte Esterase 2+ (Negative) H 11/22/19 18:38 Urine WBC (Auto) 10-30 /hpf (0-5) H 11/22/19 18:38 Urine RBC (Auto) 0-4 /hpf (0-4) 11/22/19 18:38 U Hyaline Cast (Auto) 5-10 /lpf (0-5) H 11/22/19 18:38 U Epithel Cells (Auto) >30 /lpf (0-5) H 11/22/19 18:38 Urine Bacteria (Auto) 2+ (Negative) H 11/22/19 18:38 Urine Mucus Present (None Prsent) A 11/22/19 18:38 Synovial Source KNEE 11/22/19 11:19 Synovial Color YELLOW 11/22/19 11:19 Synovial Appearance CLOUDY 11/22/19 11:19 Synovial WBC 22767 /uL (0-200) H 11/22/19 11:19 Synovial RBC 62386 /uL 11/22/19 11:19 Synovial Polynuclear % 88.0 % 11/22/19 11:19 Synovial Mononuclear % 12.0 % 11/22/19 11:19 Synovial Crystals 11/22/19 11:19 Nasal Screen MRSA (PCR) Positive (Negative) A 11/24/19 17:40 Vancomycin Trough 11.3 mcg/ml (See Comment) 11/21/19 11:17 Ethyl Alcohol mg/dL < 3.0 mg/dl (0-3) 11/17/19 02:33 Anti-Mitochondrial Ab NEGATIVE (NEGATIVE) 11/19/19 12:46 Smooth Muscle Ab Titer 1:40 titer (<1:20) H 11/19/19 12:46 Anti-Smooth Muscle Ab POSITIVE (NEGATIVE) A 11/19/19 12:46 Tiss Transglutamin IgA 1 U/mL 11/19/19 12:46 Hep Bs Antigen Neg (Neg) 11/20/19 05:40 Hep Bs Antibody Non-Immune 11/20/19 05:40 Hep Bs Antibody, Quant < 3.10 mIU/mL (>or=10mIU/mL Immune) L 11/20/19 05:40 Hepatitis C Antibody Neg (Neg) 11/20/19 05:40 Bld Cult Staph aureus PCR Positive (Negative) A 11/18/19 05:55 Blood Culture MRSA PCR Positive (Negative) A 11/18/19 05:55 Blood Type A Positive 11/24/19 09:52 Antibody Screen POSITIVE A 11/24/19 09:52 Antibody Identification Anti-E 11/24/19 09:52 Antibody ID Comment 11/24/19 09:52 Antigen Identification c Antigen - NEGATIVE 11/20/19 22:07 Crossmatch See Detail 11/24/19 09:52
[2019-11-28] MEDS ORDERED: INSULIN REGULAR 250 UNITS in SODIUM CHLORIDE 0.9% 247.5 ML IV SCH (13:15)
[2019-11-28] MEDS ORDERED: NovoLIN-R BOLUS FROM BAG IV ONE (13:15)
[2019-11-28] MEDS ORDERED: SEVERE STRESS LEVEL ONE (13:15)
[2019-11-28] MEDS ORDERED: INSULIN PROTOCOL GOAL RANGE ONE (13:15)
[2019-11-28] MEDS ORDERED: PHARMACY GLYCEMIC MGMT CONSULT PRN (13:21)
[2019-11-28] MEDS: ALBUT/IPRATROP 3MG/0.5MG NEB 3 ML VIAL NEB SCH ×2 (13:22→19:57)
--- NOTE | 2019-11-28 13:57 | Pharmacy Report ---
Pharmacy Glycemic Short Note 2 - Date of Service November 28, 2019 - Glycemic Short BSG Results (Last 24 hours): 11/27/19 11/27/19 11/28/19 15:02 17:41 00:15 Glucose 156 H POC Glucose 146 H 134 H POC Glucose (other) 11/28/19 11/28/19 11/28/19 04:06 06:49 11:46 Glucose 112 H 274 H POC Glucose 197 H POC Glucose (other) 11/28/19 11:50 Glucose POC Glucose POC Glucose (other) 255 H OUTPATIENT ANTIDIABETIC REGIMEN: * + h/o type 2 DM however no medications * A1c = 4.9% ASSESSMENT: * Type 2 diabetic, diet controlled, admitted to ICU for acute hypercarbic hypox ic resp failure secondary to mucous plugging * Pt admitted for sepsis secondary to MRSA bacteremia, MRSA empyema and MRSA knee infxn * Pt has been intubated, sedated, and placed on pressor support (norepi) * She continues to received IV hydrocortisone + ABX therapy (ceftaroline) * BSGs began to climb following acute events - will begin IV insulin drip per severe stress protocol given BSGs > 220 and ongoing acute stressors PLAN FOR INPATIENT GLYCEMIC CONTROL: * IV insulin drip, per severe stress protocol, goal range 110-180 * Discontinue current Lantus orders now that drip has been ordered PLAN FOR DISCHARGE: * given A1c results (4.9%) may be discharged w/o medications for DM, continue dietary/lifestyle interventions
--- NOTE | 2019-11-28 15:26 | Progress Note ---
DATE: 11/28/2019 The patient underwent washout of her left knee. She was maintained on the ventilator, had an episode this morning with mucus plugging. I have been discussing this case with Dr. Bergeron throughout the course of the day. At this point, her chest tube had no air leak and very little drainage and I removed them. Her chest x-ray is about the same. Her incisions are clean. This patient is very ill. She has multiple issues. From a thoracic surgeon empyema standpoint, she appears stable. We will continue to follow along.
[2019-11-28 17:43] LABS: Alpha 1 Antitrypsin 249 mg/dL (83-199); Alpha 1 Globulin 0.5 g/dL (0.2-0.3); Alpha 2 Globulin 0.6 g/dL (0.5-0.9); Anti Nuclear Antibody Screen POSITIVE (NEGATIVE); Beta-1-Globulin 0.2 g/dL (0.4-0.6); Beta-2-Globulin 0.4 g/dL (0.2-0.5); Ceruloplasmin 19 mg/dL (18-53); Gamma Globulin 0.6 g/dL (0.8-1.7); Hepatitis A Antibody IgM NON-REACTIVE (NON-REACTIVE); Hepatitis A Antibody Total NON-REACTIVE (NON-REACTIVE); Hepatitis B Core Antibody IgM NON-REACTIVE (NON-REACTIVE); Monoclonal Protein Band 1 DNR g/dL (NONE DETECTED); Monoclonal Protein Band 2 DNR g/dL (NONE DETECTED); Monoclonal Protein Band 3 DNR g/dL (NONE DETECTED); Total Protein 3.7 g/dL (6.1-8.1)
--- NOTE | 2019-11-28 22:02 | Hospitalist Progress Note ---
Date of Service November 28, 2019 Assessment & Plan (1) Gram positive sepsis: Presented with malaise, myalgias, nausea, vomiting. Afebrile at time of admission and white count was normal. Was not obviously septic, but was tachycardic and tachypneic and therefore, in retrospect, met criteria for sepsis per current CMS guidelines. Serum lactate was 1.9. Blood cultures were drawn and subsequently grew MRSA. Subsequently found to have MRSA empyema as well as MRSA septic arthritis of left knee. MRI of thoracic and lumbar spine did not show any apparent discitis, osteomyelitis, epidural abscess. Echocardiogram did not show any valvular vegetations. Started on IV vancomycin with positive blood cultures were reported. ID consulted. Repeat blood cultures on 11/18, 11/19, 11/20 were positive. Source control of empyema and septic arthritis as discussed below. Blood cultures from 11/24 remain negative. Antibiotic therapy IV vancomycin --> daptomycin --> ceftaroline. Long course of parental IV antibiotic therapy anticipated. (2) Hypotension: Recent orthostatic hypotension, started on fludrocortisone prior to admission. Hypotensive at time of admission. Volume depletion considered, but suspect that sepsis was a factor. Received IV fluids. Required pressor support after thoracoscopy Relative adrenal insufficiency, currently receiving hydrocortisone as well as fludrocortisone. May have underlying autonomic neuropathy. Started on midodrine. Follow hemodynamics, fluids status. (3) Empyema of left pleural space: Imaging at time of admission demonstrated a left pleural effusion. Thoracic Surgery consulted. Pleural fluid from thoracentesis grew MRSA. Thoracoscopy and decortication recommended for complex empyema. Procedure performed by Dr. Miranda on 11/24. Ongoing management per Thoracic Surgery. (4) Septic arthritis of knee, left: Experienced pain and swelling of left knee. Seen in consultation by Orthopedics. Arthrocentesis on 11/22/2019 demonstrated 78,000 WBCs (88% polys). Cultures subsequently grew MRSA. Receiving IV antibiotics as discussed above. Arthroscopic incision and drainage performed 11/27. Further management per Orthopedics. (5) Urinary tract infection: Urine culture from 11/22/2019 grew E. coli and Klebsiella oxytoca. Received IV antibiotics. Discontinue Palencia catheter as soon as possible. (6) Acute respiratory failure with hypoxia: Requiring supplemental oxygen for hypoxia. Mechanical ventilation postop- management per [facility]. Wean O2 as tolerated. (7) Left rib fracture: Multiple left rib fractures due to recent fall. Analgesics PRN. Incentive spirometry. (8) Anastomotic ulcer S/P gastric bypass: Status post [place] gastric bypass years ago. History anastomotic ulcer. No gross GI bleeding. Continue PPI, sucralfate, misoprostol. (9) LFT elevation: At time of admission, total bilirubin 4.6, AST 128, ALT 56, alkaline phosphatase 181. Ultrasound of abdomen on 11/17 demonstrated hepatic steatosis, no significant ductal dilatation, surgical absence of gallbladder. CT performed on the same day showed similar findings. GI consulted. Liver profile today demonstrated total bilirubin 3.3, direct bilirubin 2.1, AST 189, ALT 72, alkaline phosphatase 406. Further evaluation/management per GI. (10) Hyponatremia: Serum sodium 132 at time of admission. Possible SIADH from pulmonary disease or SSRI. Serum sodium today = 138. Follow. (11) Hypokalemia: Serum potassium at time of admission 2.6. Hypokalemia probably multifactorial-inadequate oral intake, GI loss, mineralocorticoid therapy could all be contributing factors. Received replacement. Potassium today = 3.4. Follow. (12) Hypomagnesemia: Serum magnesium 1.6. Received replacement. Magnesium today = 1.7. Follow. (13) Diabetes mellitus type 2, controlled: Diabetes mellitus type 2, recently diet controlled. Hemoglobin A1c 4.9. Blood sugars as high as 214 due to acute illness; also had episodes of hypoglycemia. Receiving Lantus/NovoLog. Fasting blood sugar today = 197. (14) Anemia: Hemoglobin 10.5 at time of admission. Hemoglobin fell as low as 7.0. No gross GI bleeding. Serum iron 12, TIBC 70, transferrin 59, ferritin 385, B12 greater than 2000, folate 6.2, SPEP pending. Anemia probably multifactorial-possible blood loss from anastomotic ulcer and sepsis contributing factors. Has received 4 units of packed RBCs thus far. Hemoglobin today = 9.0. Follow H&H. (15) Alcoholism: History of alcoholism. Denies recent consumption, though she apparently inadvertently ate some Jell-O shots around the time of admission. Continue thiamine. (16) DVT prophylaxis: Enoxaparin. SCDs. Ambulate as able. (17) Discharge planning issues: Discharge disposition to be determined. Will likely need transition to rehab facility before returning home. Family Medicine follow-up with Dr. Quintanilla. Subjective Recheck for multiple problems. Remains on vent. Respiratory distress this morning due to mucus plugging; improved with suctioning and bronchodilator. Review of Systems: Unable to obtain due to ventilation / sedation. Physical Exam Constitutional: + ill appearing; no acute distress ENMT: Mouth: + oropharynx abnormality (oral ETT) Respiratory: Auscultation: + rales (left base), + rhonchi and + wheezes Cardiovascular: Rate/Rhythm: regular rate and regular rhythm Vessels: no JVD Extremities: + edema (bilateral upper extremity; trace pretibial); no calf tenderness Gastrointestinal (Abdomen): normal bowel sounds, soft, nontender, no hepatosplenomegaly Musculoskeletal: SCD's applied Skin: no rashes, warm and dry Psychiatric: Orientation: + not alert (sedated) Genitourinary: + bladder abnormality (Palencia cath) Results & Data Vital Signs (Past 12 Hours) Vital Signs Temp Pulse Pulse Resp BP BP BP 11/28/19 21:00 36.7 C 116 H 20 105/60 113/70 11/28/19 20:16 115 H 20 11/28/19 20:00 115 H 104/60 11/28/19 19:00 36.6 C 115 H 20 101/60 114/71 11/28/19 18:00 36.5 C 112 H 123/77 11/28/19 17:30 114 H 115/72 11/28/19 17:00 113 H 117/74 11/28/19 16:30 113 H 115/72 11/28/19 16:02 120 H 20 11/28/19 16:00 36.5 C 115 H 111/70 11/28/19 15:30 120 H 108/70 11/28/19 15:29 126 H 11/28/19 15:00 126 H 108/70 11/28/19 14:30 124 H 99/70 L 11/28/19 14:00 120 H 11/28/19 13:30 116 H 100/78 11/28/19 13:22 115 H 115 H 20 11/28/19 13:00 116 H 118/74 11/28/19 12:30 116 H 113/70 11/28/19 12:26 116 H 112/70 11/28/19 12:11 116 H 112/66 11/28/19 11:56 118 H 110/67 11/28/19 11:41 115 H 113/66 11/28/19 11:26 115 H 102/64 11/28/19 11:11 119 H 109/69 11/28/19 11:08 20 11/28/19 10:56 119 H 114/74 11/28/19 10:41 122 H 122/77 11/28/19 10:26 122 H 124/83 11/28/19 10:11 123 H 130/81 11/28/19 09:56 124 H 133/81 Pulse Ox 11/28/19 21:00 97 11/28/19 20:16 97 11/28/19 20:00 11/28/19 19:00 95 11/28/19 18:00 97 11/28/19 17:30 96 11/28/19 17:00 95 11/28/19 16:30 97 11/28/19 16:02 100 11/28/19 16:00 100 11/28/19 15:30 100 11/28/19 15:29 11/28/19 15:00 98 11/28/19 14:30 100 11/28/19 14:00 95 11/28/19 13:30 98 11/28/19 13:22 96 11/28/19 13:00 99 11/28/19 12:30 95 11/28/19 12:26 95 11/28/19 12:11 96 11/28/19 11:56 96 11/28/19 11:41 97 11/28/19 11:26 90 11/28/19 11:11 100 11/28/19 11:08 11/28/19 10:56 100 11/28/19 10:41 100 11/28/19 10:26 99 11/28/19 10:11 100 11/28/19 09:56 100 Laboratory Results 11/28/19 04:06 11/28/19 11:46 Diagnostic Findings XR chest 1V portable FINDINGS: Endotracheal tube placed 5 cm above the geovanny. Left-sided chest tubes are unchanged in position. Aeration of both hemithoraces is perhaps somewhat improved. Pulmonary vasculature is slightly diminished in prominence. Central catheter remains in superior vena cava. IMPRESSION: 1. Endotracheal tube 5 cm above the geovanny.. 2. Improving postoperative changes left base with improving pulmonary vascular prominence. ACT 112: Negative or not required by law. The above report was generated using voice recognition software. It may contain grammatical, syntax or spelling errors. Electronically signed by: Konrad Issa M.D. 11/28/2019 6:32 AM (1) Left rib fracture Encounter type: initial encounter Fracture type: closed Rib fracture type: multiple ribs Qualified Code(s): S22.42XA - Multiple fractures of ribs, left side, initial encounter for closed fracture
[2019-11-29] MEDS: ALBUT/IPRATROP 3MG/0.5MG NEB 3 ML VIAL NEB SCH ×4 (01:43→20:11)
[2019-11-29] MEDS: HYDROCORTISONE SOD 50 MG in SYRINGE 0 ML IV SCH ×4 (04:16→21:20)
[2019-11-29 05:11] LABS: Hematocrit (blood only) 28.4 % (37-47); Hemoglobin 9.4 g/dL (12.0-16.0); Immature Granulocytes # (auto) 0.07 K/uL (0.00-0.02); Immature Granulocytes % (auto) 0.3 %; Lymphocytes # (auto) 0.78 K/uL (1.2-3.4); Lymphocytes % (auto) 3.8 %; Mean Corpuscular Hemoglobin 31.1 pg (25-34); Mean Corpuscular Hgb Conc 33.1 g/dL (32-36); Mean Platelet Volume 9.2 fL (7.4-10.4); Monocytes # (auto) 0.18 K/uL (0.11-0.59); Monocytes % (auto) 0.9 %; Neutrophils # (auto) 19.51 K/uL (1.4-6.5); Platelet Count 244 K/uL (130-400); RDW Coefficient of Variation 17.8 % (11.5-14.5); RDW Standard Deviation 59.9 fL (36.4-46.3); Red Blood Count 3.02 M/uL (4.2-5.4); White Blood Count 20.54 K/uL (4.8-10.8)
[2019-11-29 05:40] LABS: Albumin Level 1.3 gm/dl (3.4-5.0); BUN Creatinine Ratio 10.4 (10-20); Bilirubin Direct 1.3 mg/dl (0-0.2); Calcium 7.5 mg/dl (8.5-10.1); Est GFR (African American) 57.2; Est GFR (Non-African American) 49.4; Magnesium 1.9 mg/dl (1.8-2.4); Potassium 3.6 mmol/L (3.5-5.1)
[2019-11-29 05:45] LABS: Bilirubin,Total 1.7 mg/dl (0.2-1); Phosphorus 2.5 mg/dl (2.5-4.9); Total Protein 4.8 gm/dl (6.4-8.2)
[2019-11-29] MEDS ORDERED: FUROSEMIDE 20 MG in SYRINGE 0 ML IV ONE (05:46)
--- NOTE | 2019-11-29 06:09 | Electrocardiogram Report ---
Test Reason : Blood Pressure : / mmHG Vent. Rate : 125 BPM Atrial Rate : 127 BPM P-R Int : 000 ms QRS Dur : 094 ms QT Int : 324 ms P-R-T Axes : 038 -52 029 degrees QTc Int : 467 ms Poor data quality, interpretation may be adversely affected Sinus tachycardia Left axis deviation Low voltage QRS Inferior infarct , age undetermined Anteroseptal infarct Abnormal ECG When compared with ECG of 17-NOV-2019 09:10, Questionable change in initial forces of Anterior leads Inferior infarct is now Present Confirmed by Jovanni Galvan ([id number]) on 11/29/2019 6:08:52 AM Referred By: REFERRED SELF Confirmed By:Jovanni Galvan
[2019-11-29] MEDS: INSULIN ASPART 100 UNITS/ML 3 ML PEN SC SCH ×4 (06:12→21:58)
[2019-11-29] MEDS: CEFTAROLINE FOSAMIL ACETATE 600 MG in SODIUM CHLORIDE 0.9% 250 ML IV SCH ×3 (06:14→23:27)
[2019-11-29] MEDS ORDERED: MAGNESIUM SULFATE / D5W 1 GM/100 ML BAG IV ONE (06:50)
--- NOTE | 2019-11-29 07:38 | Orthopedic Progress Note ---
Date of Service November 29, 2019 Assessment & Plan (1) Septic arthritis of knee, left: Postop day 2 s/p arthroscopic I+D Left knee -ceftaroline -DVT ppx: SCDs, TEDs, Lovenox daily -WBAT LLE -PT/OT when medically stable -am labs as noted above Subjective POD#2 left knee arthroscopic I&D for septic left knee. Cultures growing MRSA. Patient sedated and intubated. Review of Systems Review of Systems: Unobtainable due to endotracheal tube Physical Exam Physical Exam: Patient sleeping and sedated, intubated. Does to respond to verbal stimuli. Left knee dressing is c/d/i. No erythema noted. Mild diffuse edema left LE. Distal pulses palpable. Results & Data Vital Signs (Past 12 Hours) Vital Signs Temp Pulse Pulse Resp BP BP BP 11/29/19 06:00 105 H 30 H 94/51 L 104/59 L 11/29/19 05:41 99 H 21 11/29/19 05:00 81 30 H 94/56 L 88/51 L 11/29/19 04:00 36.9 C 99 H 105 H 31 H 97/53 L 104/59 L 98/53 L 11/29/19 03:00 36.9 C 108 H 20 110/65 106/55 L 11/29/19 02:00 113 H 20 116/68 115/59 L 11/29/19 01:53 115 H 25 H 11/29/19 01:00 36.7 C 108 H 20 118/73 121/63 11/29/19 00:00 36.8 C 115 H 107 H 20 122/63 118/61 118/73 11/28/19 23:49 113 H 20 11/28/19 23:00 115 H 20 115/70 111/61 11/28/19 22:00 36.6 C 113 H 20 111/68 123/68 11/28/19 21:00 36.7 C 116 H 20 105/60 113/70 11/28/19 20:16 115 H 20 11/28/19 20:00 36.9 C 115 H 115 H 20 104/60 124/73 121/61 Pulse Ox 11/29/19 06:00 97 11/29/19 05:41 95 11/29/19 05:00 97 11/29/19 04:00 92 11/29/19 03:00 97 11/29/19 02:00 94 11/29/19 01:53 99 11/29/19 01:00 95 11/29/19 00:00 97 11/28/19 23:49 97 11/28/19 23:00 97 11/28/19 22:00 97 11/28/19 21:00 97 11/28/19 20:16 97 11/28/19 20:00 98
[2019-11-29] MEDS: POTASSIUM CHLORIDE / WTR 10 MEQ/100 ML PLCT IV SCH ×4 (07:45→11:05)
[2019-11-29] MEDS ORDERED: CALCIUM CHLORIDE 10% 1,000 MG in SODIUM CHLORIDE 0.9% 50 ML IV STA (07:55)
--- NOTE | 2019-11-29 08:00 | Critical Care Progress Note ---
Date of Service November 29, 2019 Assessment & Plan (1) Acute hypoxemic respiratory failure: Impression: 63-year-old female with history of diabetes hypertension and prior bariatric surgery presenting with nausea and vomiting found to have incidentally persistent bacteremia with right septic knee. She is brought to the ICU post video-assisted thoracoscopic washout for complicated parapneumonic effusion. 24-hour events: Stable on vent. Weaning norepinephrine. Urine output tailed off and the patient did receive a fluid bolus as well as a dose of Lasix with transient improvement in urine output. Serum creatinine holding. RSB I this morning greater than 105. Recommendations: 1. Severe sepsis with septic shock: Weaning pressors as tolerated. Continue Florinef and hydrocortisone for relative adrenal insufficiency. Have not been able to give Florinef due to lack of enteric access. Midodrine is also been held due to lack of enteric access. We will try and replace OG tube today. Previous placement was complicated by potential gastric bypass. Try to defend systolic blood pressure 100-110 2. Persistent MRSA bacteremia: Last blood cultures positive were 11/20/2019. Surveillance cultures from 11/24/2019 no growth to date. Changed from daptomycin to ceftaroline 11/26/2019 for improved pulmonary penetration given her x-ray pattern. White blood cell count markedly increased today but suspect that the stress response related to yesterday's events. We will continue to trend. No fevers. Assessed for PICC line yesterday but they did not feel there was an appropriate vein. Continue central line for now. Will need to reassess prior to discharge. 3. Empyema: Chest tube removed 11/28/2019. Follow chest x-ray 4. Hypoxemic respiratory failure: Continue duo nebs every 6. Weaning oxygen as tolerated. Again RSBI prohibitive for extubation this morning. May reassess this afternoon or tomorrow. 5. Anemia: Suspect slow ooze from gastric ulcer. On oral Cytotec, currently on hold due to lack of enteric access. B12 and folate acceptable. On PPI. Continue serial hemoglobin and hematocrit. Transfusion threshold around 7-1/2. Stable today 6. Hyponatremia: Now resolved. Continue to trend 7. Abnormal LFTs: AST and ALT and bilirubin improving. MRCP ordered by GI. Appreciate GI consultants. Discussion about liver biopsy at some point 8. Hypocalcemia, hypomagnesemia, hypokalemia: Continue replacement protocols 9. Septic left knee: Status post washout per orthopedics. 10. Mild hyperglycemia: Sliding scale insulin per protocol. May be aggravated by steroids. Continue lantus and as needed insulin while on hydrocortisone and follow. 11. Urinary tract infection: Urine growing sensitive E. coli and Klebsiella. Covered by ceftaroline 12. Poor nutritional status: Albumin remains low. Do not have enteric access for tube feeding currently. We will try and replace OG tube today. If can adequately replace will consider initiation of tube feeds today. Nutrition following with calorie counts. Given her markedly low albumin, will schedule for 6 doses of IV albumin for now and then reassess Continue to monitor in ICU pending ventilator liberation. No family available (2) Pleural effusion: (3) Septic shock: Subjective Patient remains intubated and sedated. Weaning pressors. No acute events overnight Review of Systems Review of Systems: Unobtainable due to endotracheal tube Physical Exam Constitutional: Intubated and sedated Eyes: PERRL Neck: trachea midline, no thyromegaly Cardiovascular: RRR, no murmur, no edema Gastrointestinal (Abdomen): normal bowel sounds, soft, nontender, no hepatosplenomegaly Skin: no rashes, warm and dry Results & Data Vital Signs (Past 12 Hours) Vital Signs Temp Pulse Pulse Resp BP BP BP 11/29/19 06:00 105 H 30 H 94/51 L 104/59 L 11/29/19 05:41 99 H 21 11/29/19 05:00 81 30 H 94/56 L 88/51 L 11/29/19 04:00 36.9 C 99 H 105 H 31 H 97/53 L 104/59 L 98/53 L 11/29/19 03:00 36.9 C 108 H 20 110/65 106/55 L 11/29/19 02:00 113 H 20 116/68 115/59 L 11/29/19 01:53 115 H 25 H 11/29/19 01:00 36.7 C 108 H 20 118/73 121/63 11/29/19 00:00 36.8 C 115 H 107 H 20 122/63 118/61 118/73 11/28/19 23:49 113 H 20 11/28/19 23:00 115 H 20 115/70 111/61 11/28/19 22:00 36.6 C 113 H 20 111/68 123/68 11/28/19 21:00 36.7 C 116 H 20 105/60 113/70 11/28/19 20:16 115 H 20 11/28/19 20:00 36.9 C 115 H 115 H 20 104/60 124/73 121/61 Pulse Ox 11/29/19 06:00 97 11/29/19 05:41 95 11/29/19 05:00 97 11/29/19 04:00 92 11/29/19 03:00 97 11/29/19 02:00 94 11/29/19 01:53 99 11/29/19 01:00 95 11/29/19 00:00 97 11/28/19 23:49 97 11/28/19 23:00 97 11/28/19 22:00 97 11/28/19 21:00 97 11/28/19 20:16 97 11/28/19 20:00 98 Laboratory Results 11/29/19 04:26 11/29/19 04:26 11/28/19 11/28/19 04:06 06:51 ABG pH 7.51 H* 6.91 L* ABG pCO2 31 L 132 H ABG pO2 70 L 233 H ABG HCO3 24 26 H ABG O2 Saturation 94.6 99.1 H ABG Base Excess 1.1 -8.3 Surveillance cultures remain negative to date. Diagnostic Findings Chest x-ray from today was independently reviewed. Endotracheal tube and subclavian line in good position. Lungs demonstrate bilateral increased interstitial markings with small pleural effusions. No acute airspace opacities. Coding Level of Care Code Critical Care 1st 30-74 mins Diagnoses Acute hypoxemic respiratory failure J96.01 Pleural effusion J90 Septic shock A41.9; R65.21 Time Spent (min) 42 Comment 42 minutes critical care time including evaluation management life-threatening illness. Discussed with ICU nurse at bedside
--- NOTE | 2019-11-29 08:06 | Hospitalist Progress Note ---
Date of Service November 29, 2019 Assessment & Plan (1) Gram positive sepsis: Presented with malaise, myalgias, nausea, vomiting. Afebrile at time of admission and white count was normal. Was not obviously septic, but was tachycardic and tachypneic and therefore, in retrospect, met criteria for sepsis per current CMS guidelines. Serum lactate was 1.9. Blood cultures were drawn and subsequently grew MRSA. Subsequently found to have MRSA empyema as well as MRSA septic arthritis of left knee. MRI of thoracic and lumbar spine did not show any apparent discitis, osteomyelitis, epidural abscess. Echocardiogram did not show any valvular vegetations. Started on IV vancomycin when positive blood cultures were reported. ID consulted. Repeat blood cultures on 11/18, 11/19, 11/20 were positive. Source control of empyema and septic arthritis as discussed below. Blood cultures from 11/24 remain negative. Antibiotic therapy IV vancomycin --> daptomycin --> ceftaroline. Long course of parental IV antibiotic therapy anticipated. (2) Hypotension: Recent orthostatic hypotension, started on fludrocortisone prior to admission. Hypotensive at time of admission. Volume depletion considered, but suspect that sepsis was a factor. Received IV fluids. Required pressor support after thoracoscopy and again after knee arthroscopy. Relative adrenal insufficiency, currently receiving hydrocortisone as well as fludrocortisone. May have underlying autonomic neuropathy. Started on midodrine. Wean pressors. Follow hemodynamics, fluids status. (3) Empyema of left pleural space: Imaging at time of admission demonstrated a left pleural effusion. Thoracic Surgery consulted. Pleural fluid from thoracentesis grew MRSA. Thoracoscopy and decortication recommended for complex empyema. Procedure performed by Dr. Miranda on 11/24. Chest tube removed 11/28. (4) Septic arthritis of knee, left: Experienced pain and swelling of left knee. Seen in consultation by Orthopedics. Arthrocentesis on 11/22/2019 demonstrated 78,000 WBCs (88% polys). Cultures subsequently grew MRSA. Receiving IV antibiotics as discussed above. Arthroscopic incision and drainage performed 11/27. Further management per Orthopedics. (5) Urinary tract infection: Urine culture from 11/22/2019 grew E. coli and Klebsiella oxytoca. Received IV antibiotics. Discontinue Palencia catheter as soon as possible. (6) Acute respiratory failure with hypoxia: Requiring supplemental oxygen for hypoxia. Mechanical ventilation postop- management per CCM. Wean O2 as tolerated. (7) Left rib fracture: Multiple left rib fractures due to recent fall. Analgesics PRN. Incentive spirometry. (8) Anastomotic ulcer S/P gastric bypass: Status post [place]-en-Y gastric bypass years ago. History anastomotic ulcer. No gross GI bleeding. Continue PPI, sucralfate, misoprostol. (9) LFT elevation: At time of admission, total bilirubin 4.6, AST 128, ALT 56, alkaline phosphatase 181. Ultrasound of abdomen on 11/17 demonstrated hepatic steatosis, no significant ductal dilatation, surgical absence of gallbladder. CT performed on the same day showed similar findings. GI consulted. Liver profile today demonstrated total bilirubin 1.7, direct bilirubin 1.3, AST 80, ALT 62, alkaline phosphatase 359. Further evaluation/management per GI. (10) Hyponatremia: Serum sodium 132 at time of admission. Possible SIADH from pulmonary disease or SSRI. Serum sodium today = 136. Follow. (11) Hypokalemia: Serum potassium at time of admission 2.6. Hypokalemia probably multifactorial-inadequate oral intake, GI loss, [place] locorticoid therapy could all be contributing factors. Received replacement. Potassium today = 3.6. Follow. (12) Hypomagnesemia: Serum magnesium 1.6. Received replacement. Magnesium today = 1.9. Follow. (13) Diabetes mellitus type 2, controlled: Diabetes mellitus type 2, recently diet controlled. Hemoglobin A1c 4.9. Blood sugars as high as 214 due to acute illness; also had episodes of hypoglycemia. Receiving Lantus/NovoLog. Fasting blood sugar today = 99. (14) Anemia: Hemoglobin 10.5 at time of admission. Hemoglobin fell as low as 7.0. No gross GI bleeding. Serum iron 12, TIBC 70, transferrin 59, ferritin 385, B12 greater than 2000, folate 6.2, SPEP pending. Anemia probably multifactorial-possible blood loss from anastomotic ulcer and sepsis contributing factors. Has received 4 units of packed RBCs thus far. Hemoglobin today = 9.4. Follow H&H. (15) Alcoholism: History of alcoholism. Denies recent consumption, though she apparently inadvertently ate some Jell-O shots around the time of admission. Continue thiamine. (16) Malnutrition: Nutritional support per CCM while in ICU. (17) DVT prophylaxis: Enoxaparin. SCDs. Ambulate as able. (18) Discharge planning issues: Remains critically ill. Discharge disposition to be determined. Will likely need transition to rehab facility before returning home. Family Medicine follow-up with Dr. Quintanilla. Subjective Recheck for multiple problems. Chest tube removed yesterday. No new problems last night. Still on ventilator. Sedated. Pressors being weaned. Review of Systems: Unable to obtain due to ventilation / sedation. Physical Exam Constitutional: + ill appearing; no acute distress Eyes: + scleral abnormality (icteric) ENMT: Mouth: + oropharynx abnormality (oral ETT) Respiratory: Auscultation: + rhonchi and + wheezes Cardiovascular: Rate/Rhythm: regular rate and regular rhythm Vessels: no JVD Extremities: + edema (bilateral upper extremity; trace pretibial); no calf tenderness Gastrointestinal (Abdomen): normal bowel sounds, soft, nontender, no hepatosplenomegaly Musculoskeletal: SCD's applied Skin: no rashes, warm and dry Psychiatric: Orientation: + not alert (sedated) Genitourinary: + bladder abnormality (Palencia cath) Results & Data Vital Signs (Past 12 Hours) Vital Signs Temp Pulse Pulse Resp BP BP BP 11/29/19 06:00 105 H 30 H 94/51 L 104/59 L 11/29/19 05:41 99 H 21 11/29/19 05:00 81 30 H 94/56 L 88/51 L 11/29/19 04:00 36.9 C 99 H 105 H 31 H 97/53 L 104/59 L 98/53 L 11/29/19 03:00 36.9 C 108 H 20 110/65 106/55 L 11/29/19 02:00 113 H 20 116/68 115/59 L 11/29/19 01:53 115 H 25 H 11/29/19 01:00 36.7 C 108 H 20 118/73 121/63 11/29/19 00:00 36.8 C 115 H 107 H 20 122/63 118/61 118/73 11/28/19 23:49 113 H 20 11/28/19 23:00 115 H 20 115/70 111/61 11/28/19 22:00 36.6 C 113 H 20 111/68 123/68 11/28/19 21:00 36.7 C 116 H 20 105/60 113/70 11/28/19 20:16 115 H 20 11/28/19 20:00 36.9 C 115 H 115 H 20 104/60 124/73 121/61 Pulse Ox 11/29/19 06:00 97 11/29/19 05:41 95 11/29/19 05:00 97 11/29/19 04:00 92 11/29/19 03:00 97 11/29/19 02:00 94 11/29/19 01:53 99 11/29/19 01:00 95 11/29/19 00:00 97 11/28/19 23:49 97 11/28/19 23:00 97 11/28/19 22:00 97 11/28/19 21:00 97 11/28/19 20:16 97 11/28/19 20:00 98 Laboratory Results 11/29/19 04:26 11/29/19 04:26 Diagnostic Findings PORTABLE CHEST X-RAY (preliminary interpretation per undersigned) ETT about 4 cm above geovanny left subclavian central line LLL infiltrate / effusion (1) Left rib fracture Encounter type: initial encounter Fracture type: closed Rib fracture type: multiple ribs Qualified Code(s): S22.42XA - Multiple fractures of ribs, left side, initial encounter for closed fracture
[2019-11-29] MEDS: ENOXAPARIN INJ 40 MG/0.4 ML SYR SQ SCH (08:55)
--- NOTE | 2019-11-29 09:12 | XRay Report ---
SINGLE VIEW CHEST CLINICAL HISTORY: Empyema. FINDINGS: An AP, portable, upright chest radiograph is compared to study dated 11/28/2019. Correlation is made with chest CT dated 11/17/2019. The examination is degraded by portable technique and patient rotation. An endotracheal tube and a left subclavian central venous catheter are unchanged in positi on. The heart is top normal for projection noting atherosclerotic calcification of the thoracic aorta . There is a small left pleural effusion with left basilar consolidation. Right lung appears clear. N o pneumothorax is seen. The skeletal structures are osteopenic. The bony thorax is grossly intact. Ca lcific tendinopathy is noted in the left shoulder. IMPRESSION: 1. There is a small left pleural effusion with left basilar consolidation. This is unchanged to sligh tly improved from yesterday. 2. No pneumothorax is identified. ACT 112: Negative or not required by law. Electronically signed by: Yury Brown M.D. 11/29/2019 9:11 AM
[2019-11-29] MEDS: FUROSEMIDE 20 MG in SYRINGE 0 ML IV SCH ×2 (09:58→21:20)
--- NOTE | 2019-11-29 10:42 | Procedure Note ---
Procedure Note Date of Service November 29, 2019 Note ARTERIAL LINE PROCEDURE NOTE: Procedure: Arterial Line Placement Provider: Abdiel Bergeron MD Indication: Monitoring on Pressors Anesthesia: None Procedure was emergent. Patient intubated on the ventilator and unable to provide consent. No family immediately available. A time-out was completed verifying correct patient, procedure, site, positioning, and implant(s) or special equipment if applicable. Allens test was performed to ensure adequate perfusion. Patients left wrist was prepped and draped in the usual sterile fashion. Ultrasound guidance was used to aid needle placement. A 20g Arrow arterial line was introduced into the left radial artery. Catheter was threaded, and the needle was removed with appropriate blood return. Good waveform was observed. The patient tolerated the procedure well. Blood Loss: Minimal Complications: None Coding CPT Codes Tubes, Drains, and Vasc Access - Tubes, Drains, and Vasc Access: [id number] Insertion Catheter, Artery ([id number]) [facility] Procedure Codes (Charges) Tubes, Drains, and Vasc Access Procedure 1: Tubes, Drains, and Vasc Access: [id number] Insertion Catheter, Artery
--- NOTE | 2019-11-29 11:03 | Progress Note ---
DATE: 11/29/2019 Ms. Kelley was seen today on 11/29/2019. She remains on a ventilator, although they did attempt a weaning trial this morning. She is only on 30% FIO2. The patient's x-ray has not really changed much. We pulled her tube out yesterday. She has marked edema in her extremities. She is quite ill. From a surgery standpoint, we will continue to follow along; however, I do not think her empyema is contributing to her current tenuous clinical state.
--- NOTE | 2019-11-29 11:17 | XRay Report ---
SINGLE VIEW CHEST CLINICAL HISTORY: Enteric tube placement. FINDINGS: An AP, portable, semierect view of the lower chest and upper abdomen is compared to study p erformed earlier the same day 11/29/2019. Correlation is made with chest CT dated 11/17/2019. The [facility] is degraded by portable technique and patient rotation. An enteric tube has been placed. The t ip projects below the diaphragm over the mid stomach. An endotracheal tube and a left subclavian cent ral venous catheter are unchanged in position. The heart is top normal for projection noting atherosc lerotic calcification of the thoracic aorta. There is a small left pleural effusion with left basilar consolidation. Right lung appears clear. No pneumothorax is seen. The skeletal structures are osteop enic. The bony thorax is grossly intact. Calcific tendinopathy is noted in the left shoulder. IMPRESSION: 1. An enteric tube has been placed. The tip projects below the diaphragm over the mid stomach. 2. There is a small left pleural effusion with left basilar consolidation. This is unchanged from ear lier today. ACT 112: Negative or not required by law. Electronically signed by: Yury Brown M.D. 11/29/2019 11:16 AM
[2019-11-29] MEDS: PANTOprazole 40 MG in SYRINGE 0 ML IV SCH ×2 (11:41→23:27)
[2019-11-29] MEDS: propofoL 1,000 MG/100 ML VIAL IV SCH (13:14)
[2019-11-29] MEDS: ALBUMIN 25% 50 ML IV SCH ×2 (14:58→21:18)
[2019-11-29] MEDS: PEPTAMEN INTENSE VHP 1.0 CAL 1,000 ML BAG OG SCH (15:00)
[2019-11-29] MEDS: fentaNYL citrate 100 MCG/2 ML VIAL IV PRN (21:21)
[2019-11-29 23:57] LABS: BUN Creatinine Ratio 13.5 (10-20); Calcium 7.4 mg/dl (8.5-10.1); Est GFR (African American) 68.3; Est GFR (Non-African American) 58.9; Magnesium 1.9 mg/dl (1.8-2.4); Potassium 3.5 mmol/L (3.5-5.1)
[2019-11-29 23:59] LABS: Phosphorus 3.1 mg/dl (2.5-4.9)
[2019-11-30] MEDS: propofoL 1,000 MG/100 ML VIAL IV SCH ×3 (00:32→20:01)
[2019-11-30] MEDS: INSULIN ASPART 100 UNITS/ML 3 ML PEN SC SCH ×6 (00:34→21:55)
[2019-11-30] MEDS: ALBUT/IPRATROP 3MG/0.5MG NEB 3 ML VIAL NEB SCH ×4 (01:42→20:18)
[2019-11-30] MEDS: LACTATED RINGER'S 1,000 ML IV SCH (02:42)
[2019-11-30] MEDS: HYDROCORTISONE SOD 50 MG in SYRINGE 0 ML IV SCH ×4 (04:19→22:01)
[2019-11-30] MEDS: NOREPINEPHRINE BIT INJ 8 MG in DEXTROSE 5% 500 ML IV SCH (04:22)
[2019-11-30 04:39] LABS: Eosinophils # (auto) 0.01 K/uL (0-0.5); Eosinophils % (auto) 0.1 %; Hematocrit (blood only) 26.3 % (37-47); Hemoglobin 8.7 g/dL (12.0-16.0); Immature Granulocytes # (auto) 0.03 K/uL (0.00-0.02); Immature Granulocytes % (auto) 0.2 %; Lymphocytes # (auto) 0.36 K/uL (1.2-3.4); Lymphocytes % (auto) 2.9 %; Mean Corpuscular Hemoglobin 31.2 pg (25-34); Mean Corpuscular Hgb Conc 33.1 g/dL (32-36); Mean Corpuscular Volume 94.3 fL (80-100); Mean Platelet Volume 9.2 fL (7.4-10.4); Monocytes # (auto) 0.17 K/uL (0.11-0.59); Monocytes % (auto) 1.4 %; Neutrophils # (auto) 11.87 K/uL (1.4-6.5); Neutrophils % (auto) 95.4 %; Platelet Count 176 K/uL (130-400); RDW Coefficient of Variation 18.1 % (11.5-14.5); RDW Standard Deviation 62.6 fL (36.4-46.3); Red Blood Count 2.79 M/uL (4.2-5.4); White Blood Count 12.44 K/uL (4.8-10.8)
[2019-11-30 04:53] LABS: Base Excess ABG -2.9 mEq/L (-9-1.8); HCO3 ABG 19 mmol/L (19-24); PCO2 ABG 26 mmHg (35-46); PO2 ABG 65 mmHg (80-95); pH ABG 7.49 (7.35-7.45)
[2019-11-30 04:54] LABS: Allen Test POS (Pos)
[2019-11-30 04:58] LABS: BUN Creatinine Ratio 13.5 (10-20); Calcium 7.5 mg/dl (8.5-10.1); Creatinine Clr Calc Pharmacy 57.9 ml/min; Est GFR (African American) 66.7; Est GFR (Non-African American) 57.5; Magnesium 1.8 mg/dl (1.8-2.4)
[2019-11-30 04:59] LABS: Phosphorus 3.1 mg/dl (2.5-4.9)
[2019-11-30] MEDS ORDERED: POTASSIUM CHLORIDE 20 MEQ/15 ML UDC PO STA (04:59)
[2019-11-30] MEDS: POTASSIUM CHLORIDE / WTR 20 MEQ/100 ML PLCT IV SCH ×3 (05:58→10:33)
[2019-11-30] MEDS: ALBUMIN 25% 50 ML IV SCH ×3 (05:59→22:00)
--- NOTE | 2019-11-30 06:48 | Orthopedic Progress Note ---
Date of Service November 30, 2019 Assessment & Plan (1) Septic arthritis of knee, left: Postop day 3 s/p arthroscopic I+D Left knee -ceftaroline -DVT ppx: SCDs, TEDs, Lovenox daily -WBAT LLE -PT/OT when medically stable Ortho will sign off at this time. Patient shoulder follow up with Dr. Rodriguez 10-14 days post operatively. Subjective POD#3 left knee arthroscopic I&D. She is intubated so history is limited. Review of Systems Review of Systems: All systems reviewed & are unremarkable except as noted in HPI & below Physical Exam Physical Exam: Does not appear to be in distress. Does move head with gentle palpation and movement of her knee. Left knee-No erythema or drainage, incisions c/d/i. Mild to minimal effusion. Distally pulses palpable. Calves soft. Results & Data Vital Signs (Past 12 Hours) Vital Signs Temp Pulse Pulse Resp BP BP BP 11/30/19 06:00 37 C 71 20 166/57 H 117/60 11/30/19 05:43 79 27 H 11/30/19 05:00 71 20 105/63 11/30/19 04:00 78 78 20 100/55 L 162/58 H 105/63 11/30/19 03:30 71 20 11/30/19 03:00 78 20 144/51 H 88/68 L 11/30/19 02:00 80 20 133/49 L 100/52 L 11/30/19 01:00 63 20 137/51 L 105/54 L 11/30/19 00:00 70 64 20 102/53 L 134/49 L 102/53 L 11/29/19 23:13 66 20 11/29/19 23:00 37.1 C 67 20 108/62 130/51 L 11/29/19 22:00 67 20 122/48 L 103/57 L 11/29/19 21:00 63 20 125/50 L 100/56 L 11/29/19 20:13 77 31 H 11/29/19 20:00 80 69 20 101/42 L 101/42 L 85/46 L 11/29/19 19:00 36.7 C 71 20 94/41 L 83/47 L Pulse Ox 11/30/19 06:00 97 11/30/19 05:43 100 11/30/19 05:00 94 11/30/19 04:00 97 11/30/19 03:30 99 11/30/19 03:00 99 11/30/19 02:00 97 11/30/19 01:00 94 11/30/19 00:00 97 11/29/19 23:13 94 11/29/19 23:00 96 11/29/19 22:00 95 11/29/19 21:00 97 11/29/19 20:13 94 11/29/19 20:00 98 11/29/19 19:00 95
[2019-11-30] MEDS ORDERED: MAGNESIUM OXIDE 400 MG TAB PO ONE (07:19)
--- NOTE | 2019-11-30 07:28 | XRay Report ---
XR chest 1V portable HISTORY: 63 years-old Female f/u follow-up study in a patient with acute respiratory failure COMPARISON: Chest radiograph 11/29/2019 TECHNIQUE: Portable AP view of the chest FINDINGS: Endotracheal tube overlies the midline, distal tip terminating 3.9 cm superior to the geovanny. Unchang ed positioning of the left subclavian central venous catheter. Enteric tube distal tip projects over the expected location of the mid gastric lumen. Cardiac silhouette is upper limits of normal in size. Calcified plaque of the thoracic aortic arch. Small left pleural effusion with left basilar consolid ation is unchanged. No pneumothorax. Mild interstitial coarsening with interval development of mixed alveolar densities throughout the right lung. Bones appear grossly intact. IMPRESSION: 1. Life-support lines and tubes as above. 2. Cardiomegaly with pulmonary vascular congestion and interval development of right greater than lef t reticular opacities suggestive of pulmonary edema. 3. Small left pleural effusion with unchanged left basilar consolidation. ACT 112: Negative or not required by law. The above report was generated using voice recognition software. It may contain grammatical, syntax o r spelling errors. Electronically signed by: Mitchell Nina M.D. 11/30/2019 7:27 AM
[2019-11-30] MEDS: CEFTAROLINE FOSAMIL ACETATE 600 MG in SODIUM CHLORIDE 0.9% 250 ML IV SCH ×3 (07:42→22:02)
[2019-11-30] MEDS: FUROSEMIDE 20 MG in SYRINGE 0 ML IV SCH (07:52)
[2019-11-30] MEDS: ENOXAPARIN INJ 40 MG/0.4 ML SYR SQ SCH (07:52)
--- NOTE | 2019-11-30 08:24 | Hospitalist Progress Note ---
Date of Service November 30, 2019 Assessment & Plan (1) Gram positive sepsis: Presented with malaise, myalgias, nausea, vomiting. Afebrile at time of admission and white count was normal. Was not obviously septic, but was tachycardic and tachypneic and therefore, in retrospect, met criteria for sepsis per current CMS guidelines. Serum lactate was 1.9. Blood cultures were drawn and subsequently grew MRSA. Subsequently found to have MRSA empyema as well as MRSA septic arthritis of left knee. MRI of thoracic and lumbar spine did not show any apparent discitis, osteomyelitis, epidural abscess. Echocardiogram did not show any valvular vegetations. Started on IV vancomycin when positive blood cultures were reported. ID consulted. Repeat blood cultures on 11/18, 11/19, 11/20 were positive. Source control of empyema and septic arthritis as discussed below. Blood cultures from 11/24 remain negative. Antibiotic therapy IV vancomycin --> daptomycin --> ceftaroline. Long course of parental IV antibiotic therapy anticipated. (2) Hypotension: Recent orthostatic hypotension, started on fludrocortisone prior to admission. Hypotensive at time of admission. Volume depletion considered, but suspect that sepsis was a factor. Received IV fluids. Required pressor support after thoracoscopy and again after knee arthroscopy. Relative adrenal insufficiency, currently receiving hydrocortisone as well as fludrocortisone. May have underlying autonomic neuropathy. Weaned off pressors. Follow hemodynamics, fluids status. (3) Empyema of left pleural space: Imaging at time of admission demonstrated a left pleural effusion. Thoracic Surgery consulted. Pleural fluid from thoracentesis grew MRSA. Thoracoscopy and decortication recommended for complex empyema. Procedure performed by Dr. Miranda on 11/24. Chest tube removed 11/28. (4) Septic arthritis of knee, left: Experienced pain and swelling of left knee. Seen in consultation by Orthopedics. Arthrocentesis on 11/22/2019 demonstrated 78,000 WBCs (88% polys). Cultures subsequently grew MRSA. Receiving IV antibiotics as discussed above. Arthroscopic incision and drainage performed 11/27. Further management per Orthopedics. (5) Urinary tract infection: Urine culture from 11/22/2019 grew E. coli and Klebsiella oxytoca. Received IV antibiotics. Discontinue Palencia catheter as soon as possible. (6) Acute respiratory failure with hypoxia: Requiring supplemental oxygen for hypoxia. Mechanical ventilation postop- management per CCM. Wean O2 as tolerated. (7) Left rib fracture: Multiple left rib fractures due to recent fall. Analgesics PRN. Incentive spirometry. (8) Anastomotic ulcer S/P gastric bypass: Status post [place]-en-Y gastric bypass years ago. History anastomotic ulcer. No gross GI bleeding. Continue PPI; resume sucralfate, misoprostol when able. (9) LFT elevation: At time of admission, total bilirubin 4.6, AST 128, ALT 56, alkaline phosphatase 181. Ultrasound of abdomen on 11/17 demonstrated hepatic steatosis, no significant ductal dilatation, surgical absence of gallbladder. CT performed on the same day showed similar findings. GI consulted. Liver profile 11/29 demonstrated total bilirubin 1.7, direct bilirubin 1.3, AST 80, ALT 62, alkaline phosphatase 359. Further evaluation/management per GI. (10) Hyponatremia: Serum sodium 132 at time of admission. Possible SIADH from pulmonary disease or SSRI. Serum sodium today = 137. Follow. (11) Hypokalemia: Serum potassium at time of admission 2.6. Hypokalemia probably multifactorial-inadequate oral intake, GI loss, mineralocorticoid therapy could all be contributing factors. Received replacement. Potassium today = 3.0. Follow. (12) Hypomagnesemia: Serum magnesium 1.6. Received replacement. Magnesium today = 1.8. Follow. (13) Diabetes mellitus type 2, controlled: Diabetes mellitus type 2, recently diet controlled. Hemoglobin A1c 4.9. Blood sugars as high as 214 due to acute illness; also had episodes of hypoglycemia. Receiving Lantus/NovoLog. Fasting blood sugar today = 99. (14) Anemia: Hemoglobin 10.5 at time of admission. Hemoglobin fell as low as 7.0. No gross GI bleeding. Serum iron 12, TIBC 70, transferrin 59, ferritin 385, B12 greater than 2000, folate 6.2, SPEP pending. Anemia probably multifactorial-possible blood loss from anastomotic ulcer and sepsis contributing factors. Has received 4 units of packed RBCs thus far. Hemoglobin today = 8.7. Follow H&H. (15) Alcoholism: History of alcoholism. Denies recent consumption, though she apparently inadvertently ate some Jell-O shots around the time of admission. (16) Malnutrition: Nutritional support per CCM while in ICU. (17) DVT prophylaxis: Enoxaparin. SCDs. Ambulate as able. (18) Discharge planning issues: Remains critically ill. Discharge disposition to be determined. Will likely need transition to rehab facility before returning home. Family Medicine follow-up with Dr. Quintanilla. Subjective Recheck for multiple problems. Patient seen in her room around 0800. No new problems last night. Still on ventilator. Sedated. Pressors weaned and discontinued. Received IV furosemide with effective diuresis. No fever. Review of Systems: Unable to obtain due to ventilation / sedation. Physical Exam Constitutional: + ill appearing; no acute distress Eyes: + scleral abnormality (icteric) ENMT: Mouth: + oropharynx abnormality (oral ETT) Respiratory: Auscultation: + rhonchi (improved) and + wheezes (improved) Cardiovascular: Rate/Rhythm: regular rate and regular rhythm Vessels: no JVD Extremities: normal capillary refill (toes ~ 1 sec) and + edema (bilateral upper extremity; trace pretibial); no calf tenderness Gastrointestinal (Abdomen): normal bowel sounds, soft, nontender, no hepatosplenomegaly Musculoskeletal: Extremities: + extremities abnormal to inspection (L knee without erythema or warmth) Skin: no rashes, warm and dry Psychiatric: Orientation: + not alert (sedated) Genitourinary: + bladder abnormality (Palencia cath) Results & Data Vital Signs (Past 12 Hours) Vital Signs Temp Pulse Pulse Resp BP BP BP 11/30/19 06:00 37 C 71 20 166/57 H 117/60 11/30/19 05:43 79 27 H 11/30/19 05:00 71 20 105/63 11/30/19 04:00 78 78 20 100/55 L 162/58 H 105/63 11/30/19 03:30 71 20 11/30/19 03:00 78 20 144/51 H 88/68 L 11/30/19 02:00 80 20 133/49 L 100/52 L 11/30/19 01:00 63 20 137/51 L 105/54 L 11/30/19 00:00 70 64 20 102/53 L 134/49 L 102/53 L 11/29/19 23:13 66 20 11/29/19 23:00 37.1 C 67 20 108/62 130/51 L 11/29/19 22:00 67 20 122/48 L 103/57 L 11/29/19 21:00 63 20 125/50 L 100/56 L Pulse Ox 11/30/19 06:00 97 11/30/19 05:43 100 11/30/19 05:00 94 11/30/19 04:00 97 11/30/19 03:30 99 11/30/19 03:00 99 11/30/19 02:00 97 11/30/19 01:00 94 11/30/19 00:00 97 11/29/19 23:13 94 11/29/19 23:00 96 11/29/19 22:00 95 11/29/19 21:00 97 Laboratory Results Laboratory Results - last 24 hr 11/29/19 11/29/19 11/29/19 11:43 15:59 21:49 WBC RBC Hgb Hct MCV MCH MCHC RDW Std Deviation RDW Coeff of Taye Plt Count MPV Immature Gran % (Auto) Neut % (Auto) Lymph % (Auto) [place] % (Auto) Eos % (Auto) Baso % (Auto) Immature Gran # (Auto) Neut # (Auto) Lymph # (Auto) [place] # (Auto) Eos # (Auto) Baso # (Auto) ABG pH ABG pCO2 ABG pO2 ABG HCO3 ABG O2 Saturation ABG Base Excess Juan Test Barometric Pressure Oxygen Given Sodium Potassium Chloride Carbon Dioxide Anion Gap BUN Creatinine Est Cr Clr Drug Dosing Est GFR ( Amer) Est GFR (Non-Af Amer) BUN/Creatinine Ratio Glucose POC Glucose (other) 123 H 118 H 155 H Calcium Phosphorus Magnesium 11/29/19 11/30/19 11/30/19 23:25 00:28 04:26 WBC RBC Hgb Hct MCV MCH MCHC RDW Std Deviation RDW Coeff of Taye Plt Count MPV Immature Gran % (Auto) Neut % (Auto) Lymph % (Auto) [place] % (Auto) Eos % (Auto) Baso % (Auto) Immature Gran # (Auto) Neut # (Auto) Lymph # (Auto) [place] # (Auto) Eos # (Auto) Baso # (Auto) ABG pH ABG pCO2 ABG pO2 ABG HCO3 ABG O2 Saturation ABG Base Excess Juan Test Barometric Pressure Oxygen Given Sodium 137 137 Potassium 3.5 3.0 L Chloride 106 105 Carbon Dioxide 23 22 Anion Gap 8.0 10.0 BUN 14 14 Creatinine 1.02 1.04 Est Cr Clr Drug Dosing 59.0 57.9 Est GFR ( Amer) 68.3 66.7 Est GFR (Non-Af Amer) 58.9 57.5 BUN/Creatinine Ratio 13.5 13.5 Glucose 175 H 208 H POC Glucose (other) 174 H Calcium 7.4 L 7.5 L Phosphorus 3.1 3.1 Magnesium 1.9 1.8 11/30/19 11/30/19 11/30/19 04:26 04:26 04:27 WBC 12.44 H RBC 2.79 L Hgb 8.7 L Hct 26.3 L MCV 94.3 MCH 31.2 MCHC 33.1 RDW Std Deviation 62.6 H RDW Coeff of Taye 18.1 H Plt Count 176 MPV 9.2 Immature Gran % (Auto) 0.2 Neut % (Auto) 95.4 Lymph % (Auto) 2.9 [place] % (Auto) 1.4 Eos % (Auto) 0.1 Baso % (Auto) 0.0 Immature Gran # (Auto) 0.03 H Neut # (Auto) 11.87 H Lymph # (Auto) 0.36 L [place] # (Auto) 0.17 Eos # (Auto) 0.01 Baso # (Auto) 0.00 ABG pH 7.49 H ABG pCO2 26 L ABG pO2 65 L ABG HCO3 19 ABG O2 Saturation 94.0 ABG Base Excess -2.9 Juan Test POS Barometric Pressure 728.8 Oxygen Given 7 Sodium Potassium Chloride Carbon Dioxide Anion Gap BUN Creatinine Est Cr Clr Drug Dosing Est GFR ( Amer) Est GFR (Non-Af Amer) BUN/Creatinine Ratio Glucose POC Glucose (other) 197 H Calcium Phosphorus Magnesium (1) Left rib fracture Encounter type: initial encounter Fracture type: closed Rib fracture type: multiple ribs Qualified Code(s): S22.42XA - Multiple fractures of ribs, left side, initial encounter for closed fracture
[2019-11-30] MEDS: PEPTAMEN INTENSE VHP 1.0 CAL 1,000 ML BAG OG SCH (08:25)
--- NOTE | 2019-11-30 08:53 | Critical Care Progress Note ---
Date of Service November 30, 2019 Assessment & Plan (1) Acute hypoxemic respiratory failure: Impression: 63-year-old female with history of diabetes hypertension and prior bariatric surgery presenting with nausea and vomiting found to have incidentally persistent bacteremia with right septic knee. She is brought to the ICU post video-assisted thoracoscopic washout for complicated parapneumonic effusion. 24-hour events: Remains on minimal vent settings overnight. Pressors have been weaned off. Initiated diuresis which was well-tolerated, however I's and O's appear even. SBT this morning performed with RSB I remaining above 105. Recommendations: 1. Severe sepsis with septic shock: Now off pressors continue Florinef and hydrocortisone for relative adrenal insufficiency. Try to defend systolic blood pressure 100-110 2. Persistent MRSA bacteremia: Last blood cultures positive were 11/20/2019. Surveillance cultures from 11/24/2019 no growth to date. Changed from daptomycin to ceftaroline 11/26/2019 for improved pulmonary penetration given her x-ray pattern. White blood cell count continues to decrease. We will continue to trend. No fevers. Assessed for PICC line yesterday but they did not feel there was an appropriate vein. Continue central line for now. Will need to reassess prior to discharge. 3. Empyema: Chest tube removed 11/28/2019. Follow chest x-ray 4. Hypoxemic respiratory failure: Continue duo nebs every 6. Weaning oxygen as tolerated. SBT improved this morning but the patient developed tachypnea after about 15 minutes even on pressure support of 10. We will continue diuresis and reassess later today for potential extubation. 5. Anemia: Suspect slow ooze from gastric ulcer. On oral Cytotec, and PPI. B12 and folate acceptable. Continue serial hemoglobin and hematocrit. Transfusion threshold around 7-1/2. Stable today 6. Hyponatremia: Now resolved. Continue to trend 7. Abnormal LFTs: AST and ALT and bilirubin improving. MRCP ordered by GI. Appreciate GI consultants. Discussion about liver biopsy at some point 8. Hypocalcemia, hypomagnesemia, hypokalemia: Continue replacement protocols 9. Septic left knee: Status post washout per orthopedics. 10. Mild hyperglycemia: Sliding scale insulin per protocol. May be aggravated by steroids. Increase Lantus and as needed insulin while on hydrocortisone and follow. 11. Urinary tract infection: Urine growing sensitive E. coli and Klebsiella. Covered by ceftaroline 12. Poor nutritional status: Albumin remains low. Albumin support and enteric tube feeds. Nutrition following with calorie counts. Continue to monitor in ICU pending ventilator liberation. No family available. Discussed with respiratory therapy and ICU nurse at bedside. (2) Pleural effusion: (3) Septic shock: Physical Exam Constitutional: + mechanically ventilated Eyes: PERRL Neck: trachea midline, no thyromegaly Respiratory: Coarse crackles bilaterally. No wheezing Cardiovascular: Rate/Rhythm: regular rate Heart Sounds: normal S1 and kanwal l S2 Extremities: + edema Gastrointestinal (Abdomen): normal bowel sounds, soft, nontender, no hepatosplenomegaly Skin: no rashes, warm and dry Results & Data Vital Signs (Past 12 Hours) Vital Signs Temp Pulse Pulse Resp BP BP BP 11/30/19 06:00 37 C 71 20 166/57 H 117/60 11/30/19 05:43 79 27 H 11/30/19 05:00 71 20 105/63 11/30/19 04:00 78 78 20 100/55 L 162/58 H 105/63 11/30/19 03:30 71 20 11/30/19 03:00 78 20 144/51 H 88/68 L 11/30/19 02:00 80 20 133/49 L 100/52 L 11/30/19 01:00 63 20 137/51 L 105/54 L 11/30/19 00:00 70 64 20 102/53 L 134/49 L 102/53 L 11/29/19 23:13 66 20 11/29/19 23:00 37.1 C 67 20 108/62 130/51 L 11/29/19 22:00 67 20 122/48 L 103/57 L 11/29/19 21:00 63 20 125/50 L 100/56 L Pulse Ox 11/30/19 06:00 97 11/30/19 05:43 100 11/30/19 05:00 94 11/30/19 04:00 97 11/30/19 03:30 99 11/30/19 03:00 99 11/30/19 02:00 97 11/30/19 01:00 94 11/30/19 00:00 97 11/29/19 23:13 94 11/29/19 23:00 96 11/29/19 22:00 95 11/29/19 21:00 97 Laboratory Results 11/30/19 04:26 11/30/19 04:26 11/28/19 11/28/19 11/30/19 04:06 06:51 04:26 ABG pH 7.51 H* 6.91 L* 7.49 H ABG pCO2 31 L 132 H 26 L ABG pO2 70 L 233 H 65 L ABG HCO3 24 26 H 19 ABG O2 Saturation 94.6 99.1 H 94.0 ABG Base Excess 1.1 -8.3 -2.9 Diagnostic Findings Chest x-ray from today was independently reviewed. There is some left basilar atelectasis. Endotracheal tube, subclavian line, and orogastric tube appear to be in good position. Some hazy opacity in the bilateral lung manzano, stable compared to yesterday. Coding Level of Care Code 79772 Subseq Hosp Care Lv 3 Diagnoses Acute hypoxemic respiratory failure J96.01 Pleural effusion J90 Septic shock A41.9; R65.21
[2019-11-30] MEDS: PANTOprazole 40 MG in SYRINGE 0 ML IV SCH ×2 (10:03→22:02)
[2019-11-30] MEDS ORDERED: INSULIN GLARGINE SOLOSTAR 100 UNITS/ML 3 ML PEN SQ SCH ×2 (10:15→21:00)
--- NOTE | 2019-11-30 14:05 | Pharmacy Report ---
Pharmacy Glycemic Short Note 2 - Date of Service November 30, 2019 - Glycemic Short BSG Results (Last 24 hours): 11/29/19 11/29/19 11/29/19 15:59 21:49 23:25 Glucose 175 H POC Glucose POC Glucose (other) 118 H 155 H 11/30/19 11/30/19 11/30/19 00:28 04:26 04:27 Glucose 208 H POC Glucose POC Glucose (other) 174 H 197 H 11/30/19 11/30/19 08:09 12:34 Glucose POC Glucose 230 H POC Glucose (other) 212 H OUTPATIENT ANTIDIABETIC REGIMEN: * + h/o type 2 DM however no medications * A1c = 4.9% ASSESSMENT: * BSGs elevated since peptamen initiation. PLAN FOR INPATIENT GLYCEMIC CONTROL: * Lantus 15u BID * Q4 Novolog: goal range: 140-180, CF30, CR 10 PLAN FOR DISCHARGE: * given A1c results (4.9%) may be discharged w/o medications for DM, continue dietary/lifestyle interventions
[2019-11-30] MEDS: FUROSEMIDE 40 MG in SYRINGE 0 ML IV SCH ×2 (14:31→22:01)
[2019-12-01] MEDS: propofoL 1,000 MG/100 ML VIAL IV SCH (01:10)
[2019-12-01] MEDS: INSULIN ASPART 100 UNITS/ML 3 ML PEN SC SCH ×6 (01:11→19:53)
[2019-12-01] MEDS: ALBUT/IPRATROP 3MG/0.5MG NEB 3 ML VIAL NEB SCH ×4 (01:39→19:10)
[2019-12-01] MEDS: HYDROCORTISONE SOD 50 MG in SYRINGE 0 ML IV SCH ×3 (04:13→15:53)
[2019-12-01 05:15] LABS: Eosinophils % (auto) 0.1 %; Hematocrit (blood only) 23.6 % (37-47); Hemoglobin 7.9 g/dL (12.0-16.0); Lymphocytes % (auto) 4.2 %; Mean Corpuscular Hemoglobin 31.9 pg (25-34); Mean Corpuscular Hgb Conc 33.5 g/dL (32-36); Mean Corpuscular Volume 95.2 fL (80-100); Mean Platelet Volume 9.1 fL (7.4-10.4); Monocytes % (auto) 0.9 %; Neutrophils % (auto) 94.5 %; Platelet Count 133 K/uL (130-400); RDW Standard Deviation 61.8 fL (36.4-46.3); Red Blood Count 2.48 M/uL (4.2-5.4); White Blood Count 9.49 K/uL (4.8-10.8)
[2019-12-01 05:16] LABS: Eosinophils # (auto) 0.01 K/uL (0-0.5); Immature Granulocytes # (auto) 0.03 K/uL (0.00-0.02); Immature Granulocytes % (auto) 0.3 %; Monocytes # (auto) 0.09 K/uL (0.11-0.59); Neutrophils # (auto) 8.96 K/uL (1.4-6.5)
[2019-12-01 05:18] LABS: Base Excess ABG 0.8 mEq/L (-9-1.8); HCO3 ABG 24 mmol/L (19-24); Oxygen Saturation ABG 95.4 % (90-95); PCO2 ABG 33 mmHg (35-46); PO2 ABG 78 mmHg (80-95); pH ABG 7.49 (7.35-7.45)
[2019-12-01 05:21] LABS: Allen Test Pos (Pos)
[2019-12-01 05:49] LABS: Stomatocytes 1+
[2019-12-01 06:00] LABS: Albumin Level 1.8 gm/dl (3.4-5.0); BUN Creatinine Ratio 14.7 (10-20); Bilirubin Direct 0.8 mg/dl (0-0.2); Calcium 7.2 mg/dl (8.5-10.1); Creatinine Clr Calc Pharmacy 55.1 ml/min; Est GFR (African American) 62.3; Est GFR (Non-African American) 53.8; Magnesium 1.6 mg/dl (1.8-2.4); Potassium 2.6 mmol/L (3.5-5.1)
[2019-12-01] MEDS: POTASSIUM CHLORIDE / WTR 20 MEQ/100 ML PLCT IV SCH ×6 (06:24→21:56)
[2019-12-01] MEDS: FUROSEMIDE 40 MG in SYRINGE 0 ML IV SCH ×3 (06:24→21:56)
[2019-12-01] MEDS: ALBUMIN 25% 50 ML IV SCH (06:24)
[2019-12-01 06:30] LABS: Bilirubin,Total 1.1 mg/dl (0.2-1); Phosphorus 2.2 mg/dl (2.5-4.9); Total Protein 4.5 gm/dl (6.4-8.2)
--- NOTE | 2019-12-01 06:57 | XRay Report ---
XR chest 1V portable CLINICAL HISTORY: Respiratory failure COMPARISON STUDY: 11/30/2019 FINDINGS: There is an endotracheal tube 4.7 cm above the geovanny. The cardiac and mediastinal contours remain stable. There is a nasogastric tube which passes into the stomach. There is a persistent smal l left pleural effusion with left lower lobe atelectasis/consolidation. There is lateral shouldering of the right hemidiaphragm suggesting a subpulmonic pleural effusion. There is elevation of interstit ium asymmetric on the right, likely secondary to congestive failure.[ IMPRESSION: 1. Continued radiographic evidence of congestive failure/fluid overload 2. Small bilateral pleural effusions 3. Left basilar atelectasis/consolidation ACT 112: Negative or not required by law. Electronically signed by: Jevon Fitzpatrick M.D. 12/01/2019 6:56 AM
[2019-12-01] MEDS ORDERED: SODIUM PHOSPHATE 3 MMOL/1 ML INFUSION IV STA (07:03)
[2019-12-01] MEDS ORDERED: SODIUM PHOSPHATE 15 MMOL in SODIUM CHLORIDE 0.9% 250 ML IV ONE (07:30)
[2019-12-01] MEDS: CEFTAROLINE FOSAMIL ACETATE 600 MG in SODIUM CHLORIDE 0.9% 250 ML IV SCH ×3 (07:37→21:58)
[2019-12-01] MEDS: ENOXAPARIN INJ 40 MG/0.4 ML SYR SQ SCH (07:57)
--- NOTE | 2019-12-01 07:57 | Hospitalist Progress Note ---
Date of Service December 01, 2019 Assessment & Plan (1) Gram positive sepsis: Presented with malaise, myalgias, nausea, vomiting. Afebrile at time of admission and white count was normal. Was not obviously septic, but was tachycardic and tachypneic and therefore, in retrospect, met criteria for severe sepsis per current CMS guidelines. Serum lactate was 1.9. Blood cultures were drawn and subsequently grew MRSA. Subsequently found to have MRSA empyema as well as MRSA septic arthritis of left knee. MRI of thoracic and lumbar spine did not show any apparent discitis, osteomyelitis, epidural abscess. Echocardiogram did not show any valvular vegetations. Started on IV vancomycin when positive blood cultures were reported. ID consulted. Source control of empyema and septic arthritis as discussed below. Repeat blood cultures on 11/18, 11/19, 11/20 were positive. Blood cultures from 11/24 remain negative. Antibiotic therapy IV vancomycin --> daptomycin --> ceftaroline. Long course of parental IV antibiotic therapy anticipated. (2) Hypotension: Recent orthostatic hypotension, started on fludrocortisone prior to admission. Hypotensive at time of admission. Volume depletion considered, but sepsis probably a factor. Received IV fluids. Required pressor support after thoracoscopy and again after knee arthroscopy. Relative adrenal insufficiency, currently receiving hydrocortisone as well as fludrocortisone. May have underlying autonomic neuropathy. Weaned off pressors. Follow hemodynamics, fluids status. (3) Empyema of left pleural space: Imaging at time of admission demonstrated a left pleural effusion. Thoracic Surgery consulted. Pleural fluid from thoracentesis grew MRSA. Thoracoscopy and decortication recommended for complex empyema. Procedure performed by Dr. Miranda on 11/24. Chest tube removed 11/28. (4) Septic arthritis of knee, left: Experienced pain and swelling of left knee. Seen in consultation by Orthopedics. Arthrocentesis on 11/22/2019 demonstrated 78,000 WBCs (88% polys). Cultures subsequently grew MRSA. Receiving IV antibiotics as discussed above. Arthroscopic incision and drainage performed 11/27. Further management per Orthopedics. (5) Urinary tract infection: Urine culture from 11/22/2019 grew E. coli and Klebsiella oxytoca. Received IV antibiotics. Discontinue Palencia catheter as soon as possible. (6) Acute respiratory failure with hypoxia: Requiring supplemental oxygen for hypoxia. Mechanical ventilation postop- management per CCM. Wean O2 as tolerated. (7) Left rib fracture: Multiple left rib fractures due to recent fall. Analgesics PRN. Incentive spirometry. (8) Anastomotic ulcer S/P gastric bypass: Status post [place] gastric bypass years ago. History anastomotic ulcer. No gross GI bleeding. Continue PPI; resume sucralfate, misoprostol when able. (9) LFT elevation: At time of admission, total bilirubin 4.6, AST 128, ALT 56, alkaline phosphatase 181. Ultrasound of abdomen on 11/17 demonstrated hepatic steatosis, no significant ductal dilatation, surgical absence of gallbladder. CT performed on the same day showed similar findings. GI consulted. Liver profile today demonstrated total bilirubin 1.1, direct bilirubin 0.8, AST 57, ALT 39, alkaline phosphatase 217. Sepsis may have been contributing to hepatic dysfunction. Further evaluation/management per GI. (10) Hyponatremia: Serum sodium 132 at time of admission. Possible SIADH from pulmonary disease or SSRI. Serum sodium today = 140. Follow. (11) Hypokalemia: Serum potassium at time of admission 2.6. Hypokalemia probably multifactorial-inadequate oral intake, GI loss, mineralocorticoid therapy could all be contributing factors. Received replacement. Potassium today = 2.6. Follow. (12) Hypomagnesemia: Serum magnesium 1.6. Received replacement. Magnesium today = 1.6. Follow. (13) Diabetes mellitus type 2, controlled: Diabetes mellitus type 2, recently diet controlled. Hemoglobin A1c 4.9. Blood sugars as high as 214 due to acute illness; also had episodes of hypoglycemia. Receiving Lantus/NovoLog. Fasting blood sugar today = 151. (14) Anemia: Hemoglobin 10.5 at time of admission. Hemoglobin fell as low as 7.0. No gross GI bleeding. Serum iron 12, TIBC 70, transferrin 59, ferritin 385, B12 greater than 2000, folate 6.2, SPEP pending. Anemia probably multifactorial-possible blood loss from anastomotic ulcer and sepsis contributing factors. Has received 4 units of packed RBCs thus far. Hemoglobin today = 7.9. Follow H&H. (15) Alcoholism: History of alcoholism. Denies recent consumption, though she apparently inadvertently ate some Jell-O shots around the time of admission. (16) Malnutrition: Nutritional support per CCM while in ICU. (17) DVT prophylaxis: Enoxaparin. SCDs. Ambulate as able. (18) Discharge planning issues: Remains critically ill. Discharge disposition to be determined. Will likely need transition to rehab facility before returning home. Family Medicine follow-up with Dr. Quintanilla. Subjective Recheck for multiple problems. Patient seen in her room around 0730. No new problems last night. Still on ventilator. CPAP/PS trial this morning. Sedation being weaned. No fever. Review of Systems: Unable to obtain due to ventilation / sedation. Physical Exam Constitutional: + ill appearing; no acute distress Eyes: + scleral abnormality (icteric) ENMT: Mouth: + oropharynx abnormality (oral ETT, OGT) Respiratory: Auscultation: + rhonchi (improved) and + wheezes (improved) Cardiovascular: Rate/Rhythm: regular rate and regular rhythm Vessels: no JVD Extremities: normal capillary refill (toes ~ 1 sec) and + edema (bilateral upper extremity; 1-2+ pretibial); no calf tenderness Gastrointestinal (Abdomen): normal bowel sounds, soft, nontender, no hepato splenomegaly Musculoskeletal: Extremities: + extremities abnormal to inspection (L knee without erythema or warmth; SCD applied to RLE; waffle boots) Skin: no rashes, warm and dry Psychiatric: Orientation: + not alert (sedated) Genitourinary: + bladder abnormality (Palencia cath) Results & Data Vital Signs (Past 12 Hours) Vital Signs Temp Pulse Pulse Resp BP BP BP 12/01/19 06:10 67 24 12/01/19 06:00 65 18 143/52 H 99/56 L 12/01/19 05:00 66 21 133/52 L 93/53 L 12/01/19 04:53 67 23 12/01/19 04:00 36.7 C 64 64 20 130/49 L 129/49 L 91/50 L 12/01/19 03:00 66 18 126/46 L 92/50 L 12/01/19 02:00 68 18 125/47 L 94/50 L 12/01/19 01:40 58 L 18 12/01/19 01:00 58 L 18 124/48 L 91/50 L 12/01/19 00:00 61 61 18 129/47 L 129/47 L 95/53 L 11/30/19 23:50 65 18 11/30/19 23:00 60 18 94/50 L 131/84 11/30/19 22:00 62 18 90/48 L 121/44 L 11/30/19 21:00 66 18 92/49 L 117/44 L 11/30/19 20:10 69 22 11/30/19 20:00 68 68 18 119/43 L 119/43 L 89/45 L Pulse Ox 12/01/19 06:10 96 12/01/19 06:00 95 12/01/19 05:00 95 12/01/19 04:53 94 12/01/19 04:00 93 12/01/19 03:00 94 12/01/19 02:00 97 12/01/19 01:40 96 12/01/19 01:00 97 12/01/19 00:00 95 11/30/19 23:50 96 11/30/19 23:00 96 11/30/19 22:00 95 11/30/19 21:00 97 11/30/19 20:10 95 11/30/19 20:00 94 Laboratory Results 12/01/19 05:07 12/01/19 05:07 (1) Left rib fracture Encounter type: initial encounter Fracture type: closed Rib fracture type: multiple ribs Qualified Code(s): S22.42XA - Multiple fractures of ribs, left side, initial encounter for closed fracture
[2019-12-01] MEDS: MAGNESIUM SULFATE / D5W 1 GM/100 ML BAG IV SCH ×2 (08:51→10:09)
[2019-12-01] MEDS ORDERED: INSULIN GLARGINE SOLOSTAR 100 UNITS/ML 3 ML PEN SQ SCH ×2 (09:00→21:00)
--- NOTE | 2019-12-01 09:32 | Critical Care Progress Note ---
Date of Service December 01, 2019 Assessment & Plan (1) Acute hypoxemic respiratory failure: Impression: 63-year-old female with history of diabetes hypertension and prior bariatric surgery presenting with nausea and vomiting found to have incidentally persistent bacteremia with right septic knee. She is brought to the ICU post video-assisted thoracoscopic washout for complicated parapneumonic effusion. 24-hour events: Off vasopressors. Diuresing well. on SBT trial as of now. Recommendations: -- Severe sepsis s/p septic shock: No Off pressors continue Florinef and hydrocortisone for relative adrenal insufficiency. Try to defend systolic blood pressure 100-110 -- Persistent MRSA bacteremia: Last blood cultures from 11/24/2019 no growth to date. Changed from daptomycin to ceftaroline 11/26/2019 for improved pulmonary penetration given her x-ray pattern. White blood cell count continues to decrease. Assessed for PICC line did not show an appropriate vein. Continue central line for now. Will need to reassess prior to discharge. -- Empyema: Chest tube removed 11/28/2019. CXR showed improvement -- VDRF: Continue duo nebs every 6. Weaning oxygen as tolerated. trial of extubation today -- Anemia: Suspect slow ooze from gastric ulcer. On PPI BID IV. B12 and folate ac ceptable. Monitor hemoglobin and hematocrit. Transfuse for Hb<7.5 -- Abnormal LFTs: AST and ALT trending down MRCP mild ductal dilatation likely sec to Cholecystectomy -- Septic left knee: Status post washout per orthopedics. -- Mild hyperglycemia: Sliding scale insulin per protocol. May be aggravated by steroids. Increase Lantus and as needed insulin while on hydrocortisone and follow. -- Urinary tract infection: Urine growing sensitive E. coli and Klebsiella. Covered by ceftaroline -- Poor nutritional status: Albumin remains low. Nutrition following with calorie counts. -- DVT prophylaxis On Heparin -- Hypomagnesemia, Hypokalaemia, Hypophosphataemia Being replaced Plan: Extubate to BiPAP Replace electrolytes Maintain negative balance Swallow evaluation tomorrow. D5-1/2 @ 40ml for the time being. (2) Pleural effusion: (3) Septic shock: Subjective Patient seen and examined at bedside. No acute distress, no adverse events overnight. Patient has been off pressors as of yesterday. Diuresing well. Patient was on SBT since 6:30 AM in the morning. At the time of examination patient respiratory was 20 getting good tidal volumes of around 400 with but pressure in the 140s, heart rate in high 60s. Patient has been afebrile. On ceftaroline for empyema. Patient answering questions by nodding her head. Denies any chest pain, wants the tube out. Patient following commands. Review of Systems Review of Systems: All systems reviewed & are unremarkable except as noted in HPI & below Physical Exam Physical Exam: Constitutional: No acute distress HEENT: EOMI, PERRLA Respiratory system: Decreased air entry bilaterally, no wheeze, no rhonchi, positive crackles bilateral lower lobes. CVS: S1-S2 positive, no murmurs or gallops Abdomen: Soft, nontender, nondistended, positive bowel sounds x4 Extremities: +2 pulses bilaterally radialis/ dorsalis pedis, no cyanosis, +1 edema b/l LE Neuro: GCS 15, patient moving all the extremities Psych: Normal mood and affect G/U: +ve vee Skin: Break down on coccyx Left subclavian line Skin: no rashes, warm and dry Lymphatic: no cervical or axillary lymphadenopathy Results & Data Vital Signs (Past 12 Hours) Vital Signs Temp Pulse Pulse Resp BP BP BP 12/01/19 06:10 67 24 12/01/19 06:00 65 18 143/52 H 99/56 L 12/01/19 05:00 66 21 133/52 L 93/53 L 12/01/19 04:53 67 23 12/01/19 04:00 36.7 C 64 64 20 130/49 L 129/49 L 91/50 L 12/01/19 03:00 66 18 126/46 L 92/50 L 12/01/19 02:00 68 18 125/47 L 94/50 L 12/01/19 01:40 58 L 18 12/01/19 01:00 58 L 18 124/48 L 91/50 L 12/01/19 00:00 61 61 18 129/47 L 129/47 L 95/53 L 11/30/19 23:50 65 18 11/30/19 23:00 60 18 94/50 L 131/84 11/30/19 22:00 62 18 90/48 L 121/44 L Pulse Ox 12/01/19 06:10 96 12/01/19 06:00 95 12/01/19 05:00 95 12/01/19 04:53 94 12/01/19 04:00 93 12/01/19 03:00 94 12/01/19 02:00 97 12/01/19 01:40 96 12/01/19 01:00 97 12/01/19 00:00 95 11/30/19 23:50 96 11/30/19 23:00 96 11/30/19 22:00 95 12/01/19 05:07 12/01/19 05:07 Coding Level of Care Code Critical Care 1st 30-74 mins Diagnoses Acute hypoxemic respiratory failure J96.01 Pleural effusion J90 Septic shock A41.9; R65.21 Time Spent (min) 50 Comment >50% time was spent [id number] with the patient discussing diagnosis and plan of care.
[2019-12-01] MEDS: PANTOprazole 40 MG in SYRINGE 0 ML IV SCH ×2 (10:14→21:58)
[2019-12-01] MEDS: LEVOTHYROXINE SODIUM 12.5 MCG in SYRINGE 0 ML IV SCH (10:47)
[2019-12-01] MEDS: D5W AND 1/2NSS 1,000 ML IV SCH (11:24)
[2019-12-01] MEDS: PEPTAMEN INTENSE VHP 1.0 CAL 1,000 ML BAG OG SCH (11:33)
--- NOTE | 2019-12-01 12:29 | Pharmacy Report ---
Pharmacy Glycemic Short Note 2 - Date of Service December 01, 2019 - Glycemic Short BSG Results (Last 24 hours): 11/30/19 11/30/19 11/30/19 12:34 15:29 20:05 Glucose POC Glucose 230 H 210 H 201 H 12/01/19 12/01/19 12/01/19 01:02 04:10 05:07 Glucose 151 H POC Glucose 198 H 174 H 12/01/19 07:52 Glucose POC Glucose 184 H OUTPATIENT ANTIDIABETIC REGIMEN: * + h/o type 2 DM however no medications * A1c = 4.9% ASSESSMENT: 12/01 * New events over last 24 hrs: Patient successfully extubated this AM, tube feedings stopped, steroid being weaned (HC 50mg Q 6 hrs --> 50mg Q 8 hrs), dextrose containing IVFs initiated, diuresis continues today * BSGs did climb with the initiation of continuous tube feeds. When these tube feeds were not in use, pt required no insulin once pressors weaned off * Will lessening basal insulin doses at this time as CHO delivery in IVFs less likely to lead to severe hyperglycemia vs continuous tube feeds PLAN FOR INPATIENT GLYCEMIC CONTROL: * Lantus * BID per the following scale * 0 units if less than 130 * 7 units if 130-200 * 13 units if BSG above 200 * Q4 Novolog: goal range: 120-150, CF30, CR 10 PLAN FOR DISCHARGE: * given A1c results (4.9%) may be discharged w/o medications for DM, continue dietary/lifestyle interventions
--- NOTE | 2019-12-01 13:48 | Internal Medicine Consult Note ---
Date of Consultation December 01, 2019 Assessment & Plan (1) Encounter for rehabilitation evaluation: Our high risk team will continue to track her progress in preparation for eventual medical stability and start of rehab phase of recovery. History of Present Illness Reason for Consultation: Rehab Follow-up Attending Physician: Kamaljit Leavitt MD History of Present Illness Events of the past week noted. Respiratory situation remains tenuous. Extubation and non-invasive support noted. ID issues noted. She will require very close RT support and oversight once comes to our campus. Weakness is profound. Critical illness will take some time for improvement. I expect she will need at a minimum 3 weeks with us. Allergies Allergy/AdvReac Type Severity Reaction Status Date / Time Sulfa (Sulfonamide Allergy Severe FACE/THROAT Verified 11/17/19 02:12 Antibiotics) SWELL UP Home Medications Home Medications Medication Instructions Recorded Confirmed Type cyanocobalamin (vitamin B-12) 500 mcg PO DAILY 08/16/19 11/17/19 History [Vitamin B-12] esomeprazole magnesium [Nexium] 40 mg PO DAILY 08/16/19 11/17/19 History folic acid 1 mg PO DAILY 08/16/19 11/17/19 History misoprostol [Cytotec] 100 mcg PO QID 08/16/19 11/17/19 History thiamine HCl (vitamin B1) [Vitamin 100 mg PO QAM #30 tab 08/22/19 11/17/19 Rx B-1] meclizine 25 mg PO Q8H PRN #30 tab 09/29/19 11/17/19 Rx duloxetine 30 mg PO BID 11/17/19 11/17/19 History fludrocortisone 0.1 mg PO DAILY 11/17/19 11/17/19 History gabapentin 300 mg PO TID 11/17/19 11/17/19 History levothyroxine 25 mcg PO DAILY 11/17/19 11/17/19 History nortriptyline 25 mg PO HS 11/17/19 11/17/19 History sucralfate 1 g PO ACHS 11/17/19 11/17/19 History Patient History Medical History (Updated 11/29/19 @ 08:07 by Kamaljit Leavitt MD) Acute alcohol abuse (Chronic) Alcohol abuse Alcoholism Anemia, iron deficiency (Chronic) Arthritis (Chronic) Bacteremia Diabetes mellitus type 2, controlled DVT prophylaxis Esophagus disorder Gram positive sepsis Hypokalemia Small bowel obstruction (Resolved) Ulcer GI Surgical History History of incision and drainage (08/18/19) Left Axillary Abscess Incision and Drainage Dr. Perdue 08/18/19 Status post appendectomy (Chronic) Status post cholecystectomy (Chronic) Status post gastric bypass for obesity (Chronic) Status post hysterectomy (Chronic) Family History Other No pertinent family history in first degree relatives Social History Preferred Language: Chinese Communication Ability: Effective Periodontist Required: No Beliefs That Will Affect Care: None marital status: Current Living Situation: Other Current Living Situation Comment: Friend Feels Safe at Home: Yes Safety Concerns: Feels Safe At This Time Smoking Status: Former smoker Tobacco Type: cigarettes ; Second Hand Exposure: Yes ; Hx Alcohol Use: Yes Alcohol type: beer and hard liquor Hx Substance Use: No Review of Systems Review of Systems: No target Physical Exam Physical Exam: Very frail Non-Invasive in place Exchange is adequate Volume status ok--good urine out GI--functional Musculo--no new target Neuro--no focal changes. Results & Data Vital Signs (Past 12 Hours) Vital Signs Temp Pulse Pulse Resp BP BP BP 12/01/19 12:00 36.7 C 67 102/55 L 12/01/19 11:00 70 110/61 12/01/19 10:11 97 H 20 12/01/19 10:00 36.8 C 70 104/58 L 12/01/19 09:00 64 102/55 L 12/01/19 08:00 36.8 C 72 105/58 L 12/01/19 07:00 68 101/53 L 12/01/19 06:10 67 24 12/01/19 06:00 65 18 143/52 H 99/56 L 12/01/19 05:00 66 21 133/52 L 93/53 L 12/01/19 04:53 67 23 12/01/19 04:00 36.7 C 64 64 20 130/49 L 129/49 L 91/50 L 12/01/19 03:00 66 18 126/46 L 92/50 L 12/01/19 02:00 68 18 125/47 L 94/50 L Pulse Ox 12/01/19 12:00 99 12/01/19 11:00 99 12/01/19 10:11 97 12/01/19 10:00 98 12/01/19 09:00 95 12/01/19 08:00 95 12/01/19 07:00 96 12/01/19 06:10 96 12/01/19 06:00 95 12/01/19 05:00 95 12/01/19 04:53 94 12/01/19 04:00 93 12/01/19 03:00 94 12/01/19 02:00 97
[2019-12-01] MEDS ORDERED: MAGNESIUM SULFATE / D5W 1 GM/100 ML BAG IV ONE (15:15)
[2019-12-01 16:56] LABS: BUN Creatinine Ratio 16.2 (10-20); Calcium 7.2 mg/dl (8.5-10.1); Creatinine Clr Calc Pharmacy 61.2 ml/min; Est GFR (African American) 70.8; Est GFR (Non-African American) 61.1; Magnesium 1.9 mg/dl (1.8-2.4); Phosphorus 2.7 mg/dl (2.5-4.9); Potassium 2.4 mmol/L (3.5-5.1)
[2019-12-01] MEDS ORDERED: POTASSIUM PHOS 3 MMOL/1 ML INFUSION IV STA (17:07)
[2019-12-01] MEDS ORDERED: POTASSIUM PHOSPHATE 15 MMOL in SODIUM CHLORIDE 0.9% 250 ML IV ONE (17:30)
--- NOTE | 2019-12-01 17:45 | Progress Note ---
DATE: 12/01/2019 Ms. Kelley was seen today. She has now been extubated. I saw her a couple of times today. She is on BiPAP now. I had a long discussion with the patient's son. She remains quite ill and quite malnourished; however, she does look better to me. She has some rhonchi, but is moving air better. Her white count is 9490, hemoglobin down to 7.9. I reviewed her x-ray today and her left base actually looks pretty good on the ventilator. She has very little in the way of any fluid. She does have some drainage through her left chest tube dressing; however, we are reinforcing it currently. We will give her another day or so. We will change everything and put antimicrobials. Continue antibiotics as well as nutritional support are going to be roche in this woman's recovery.
[2019-12-02] MEDS: HYDROCORTISONE SOD 50 MG in SYRINGE 0 ML IV SCH ×3 (00:10→23:34)
[2019-12-02] MEDS: ALBUT/IPRATROP 3MG/0.5MG NEB 3 ML VIAL NEB SCH ×4 (00:59→18:52)
[2019-12-02] MEDS: INSULIN ASPART 100 UNITS/ML 3 ML PEN SC SCH ×5 (02:04→18:00)
[2019-12-02 04:50] LABS: Basophils # (auto) 0.01 K/uL (0-0.2); Basophils % (auto) 0.1 %; Eosinophils # (auto) 0.01 K/uL (0-0.5); Eosinophils % (auto) 0.1 %; Hemoglobin 8.5 g/dL (12.0-16.0); Immature Granulocytes # (auto) 0.04 K/uL (0.00-0.02); Immature Granulocytes % (auto) 0.5 %; Lymphocytes # (auto) 0.46 K/uL (1.2-3.4); Lymphocytes % (auto) 5.2 %; Mean Corpuscular Hemoglobin 31.4 pg (25-34); Mean Corpuscular Hgb Conc 32.7 g/dL (32-36); Mean Corpuscular Volume 95.9 fL (80-100); Mean Platelet Volume 9.3 fL (7.4-10.4); Monocytes # (auto) 0.19 K/uL (0.11-0.59); Monocytes % (auto) 2.2 %; Neutrophils # (auto) 8.11 K/uL (1.4-6.5); Neutrophils % (auto) 91.9 %; Platelet Count 138 K/uL (130-400); RDW Coefficient of Variation 18.2 % (11.5-14.5); RDW Standard Deviation 63.7 fL (36.4-46.3); Red Blood Count 2.71 M/uL (4.2-5.4); White Blood Count 8.82 K/uL (4.8-10.8)
[2019-12-02 04:54] LABS: Base Excess ABG 3.7 mEq/L (-9-1.8); HCO3 ABG 27 mmol/L (19-24); Oxygen Saturation ABG 95.8 % (90-95); PCO2 ABG 36 mmHg (35-46); PO2 ABG 76 mmHg (80-95); pH ABG 7.49 (7.35-7.45)
[2019-12-02 05:05] LABS: BUN Creatinine Ratio 17.5 (10-20); Calcium 7.1 mg/dl (8.5-10.1); Creatinine Clr Calc Pharmacy 68.1 ml/min; Est GFR (African American) 80.5; Est GFR (Non-African American) 69.5; Magnesium 1.8 mg/dl (1.8-2.4); Potassium 2.6 mmol/L (3.5-5.1)
[2019-12-02 05:07] LABS: C Reactive Protein 2.1 mg/dl (0-0.29); Phosphorus 3.1 mg/dl (2.5-4.9)
[2019-12-02] MEDS ORDERED: POTASSIUM CHLORIDE / WTR 20 MEQ/100 ML PLCT IV ONE (06:00)
[2019-12-02] MEDS: FUROSEMIDE 40 MG in SYRINGE 0 ML IV SCH ×2 (06:20→18:00)
[2019-12-02 06:21] LABS: Allen Test POS (Pos)
[2019-12-02] MEDS: POTASSIUM CHLORIDE / WTR 20 MEQ/100 ML PLCT IV SCH ×4 (06:21→23:23)
[2019-12-02] MEDS: CEFTAROLINE FOSAMIL ACETATE 600 MG in SODIUM CHLORIDE 0.9% 250 ML IV SCH ×3 (06:39→23:23)
--- NOTE | 2019-12-02 07:11 | XRay Report ---
XR chest 1V portable CLINICAL HISTORY: f/u COMPARISON STUDY: Chest radiograph December 01, 2019. Chest CT November 17, 2019. FINDINGS: Left subclavian central line is in place. Endotracheal and nasogastric tubes have been jose bronson. There are old right rib fractures. There is no pneumothorax. Small left pleural effusion is note d with mild left basilar opacity. Persistent mild pulmonary edema is noted. IMPRESSION: 1. Persistent mild pulmonary edema. 2. Small left pleural effusion with left basilar opacity. ACT 112: Negative or not required by law. Electronically signed by: Bernardino Baig M.D. 12/02/2019 7:10 AM
--- NOTE | 2019-12-02 07:50 | Hospitalist Progress Note ---
Date of Service December 02, 2019 Assessment & Plan (1) Gram positive sepsis: Presented with malaise, myalgias, nausea, vomiting. Afebrile at time of admission and white count was normal. Was not obviously septic, but was tachycardic and tachypneic and therefore, in retrospect, met criteria for severe sepsis per current CMS guidelines. Serum lactate was 1.9. Blood cultures were drawn and subsequently grew MRSA. Subsequently found to have MRSA empyema as well as MRSA septic arthritis of left knee. MRI of thoracic and lumbar spine did not show any apparent discitis, osteomyelitis, epidural abscess. Echocardiogram did not show any valvular vegetations. Started on IV vancomycin when positive blood cultures were reported. ID consulted. Source control of empyema and septic arthritis as discussed below. Repeat blood cultures on 11/18, 11/19, 11/20 were positive. Blood cultures from 11/24 remain negative. Antibiotic therapy IV vancomycin --> daptomycin --> ceftaroline. C-reactive protein 8.87 11/23 --> 2.10 12/02. Long course of parental IV antibiotic therapy anticipated. (2) Hypotension: Recent orthostatic hypotension, started on fludrocortisone prior to admission. Hypotensive at time of admission. Volume depletion considered, but sepsis probably a factor. Received IV fluids. Required pressor support after thoracoscopy and again after knee arthroscopy. Relative adrenal insufficiency, currently receiving hydrocortisone as well as fludrocortisone. May have underlying autonomic neuropathy. Weaned off pressors. Follow hemodynamics, fluids status. (3) Empyema of left pleural space: Imaging at time of admission demonstrated a left pleural effusion. Thoracic Surgery consulted. Pleural fluid from thoracentesis grew MRSA. Thoracoscopy and decortication recommended for complex empyema. Procedure performed by Dr. Miranda on 11/24. Chest tube removed 11/28. (4) Septic arthritis of knee, left: Experienced pain and swelling of left knee. Seen in consultation by Orthopedics. Arthrocentesis on 11/22/2019 demonstrated 78,000 WBCs (88% polys). Cultures subsequently grew MRSA. Receiving IV antibiotics as discussed above. Arthroscopic incision and drainage performed 11/27. Further management per Orthopedics. (5) Urinary tract infection: Urine culture from 11/22/2019 grew E. coli and Klebsiella oxytoca. Received IV antibiotics. Discontinue Palencia catheter as soon as possible. (6) Acute respiratory failure with hypoxia: Requiring supplemental oxygen for hypoxia. Mechanical ventilation postop- management per CCM. Wean O2 as tolerated. (7) Left rib fracture: Multiple left rib fractures due to recent fall. Analgesics PRN. Incentive spirometry. (8) Anastomotic ulcer S/P gastric bypass: Status post [place] gastric bypass years ago. History anastomotic ulcer. No gross GI bleeding. Continue PPI; resume sucralfate, misoprostol when able. (9) LFT elevation: At time of admission, total bilirubin 4.6, AST 128, ALT 56, alkaline phosphatase 181. Ultrasound of abdomen on 11/17 demonstrated hepatic steatosis, no significant ductal dilatation, surgical absence of gallbladder. CT performed on the same day showed similar findings. GI consulted. Liver profile 12/01 demonstrated total bilirubin 1.1, direct bilirubin 0.8, AST 57, ALT 39, alkaline phosphatase 217. Sepsis may have been contributing to hepatic dysfunction. Further evaluation/management per GI. (10) Hyponatremia: Serum sodium 132 at time of admission. Possible SIADH from pulmonary disease or SSRI. Serum sodium today = 141. Follow. (11) Hypokalemia: Serum potassium at time of admission 2.6. Hypokalemia probably multifactorial-inadequate oral intake, GI loss, mine ralocorticoid therapy could all be contributing factors. Received replacement. Potassium today = 2.6. Follow. (12) Hypomagnesemia: Serum magnesium 1.6. Received replacement. Magnesium today = 1.8. Follow. (13) Diabetes mellitus type 2, controlled: Diabetes mellitus type 2, recently diet controlled. Hemoglobin A1c 4.9. Blood sugars fluctuating due to acute illness. Receiving Lantus/NovoLog. Fasting blood sugar today = 97. (14) Anemia: Hemoglobin 10.5 at time of admission. Hemoglobin fell as low as 7.0. No gross GI bleeding. Serum iron 12, TIBC 70, transferrin 59, ferritin 385, B12 greater than 2000, folate 6.2, SPEP pending. Anemia probably multifactorial-possible blood loss from anastomotic ulcer and sepsis contributing factors. Has received 4 units of packed RBCs thus far. Hemoglobin today = 8.5. Follow H&H. (15) Alcoholism: History of alcoholism. Denies recent consumption, though she apparently inadvertently ate some Jell-O shots around the time of admission. (16) Malnutrition: Nutritional support per [facility] while in ICU. (17) DVT prophylaxis: Enoxaparin. SCDs. Ambulate as able. (18) Discharge planning issues: Remains critically ill. Discharge disposition to be determined. Will likely need transition to rehab facility before returning home. Family Medicine follow-up with Dr. Quintanilla. Subjective Recheck for multiple problems. Patient seen in her room around 0735. Extubated yesterday. Tolerating BiPAP. Sedation weaned. More alert. Occasional cough. Denies CP, SOB. No nausea or vomiting. No diarrhea. Still has Palencia. No fever. Review of Systems: As noted above. Physical Exam Constitutional: + ill appearing; no acute distress ENMT: BiPAP Respiratory: Auscultation: + rhonchi (few) and + wheezes (mild) Cardiovascular: Rate/Rhythm: regular rate and regular rhythm Vessels: no JVD Extremities: normal capillary refill (toes ~ 1 sec) and + edema (bilateral upper extremity; 1-2+ pretibial); no calf tenderness Gastrointestinal (Abdomen): normal bowel sounds, soft, nontender, no hepatosplenomegaly Musculoskeletal: Extremities: + extremities abnormal to inspection (L knee without erythema or warmth; SCD applied to RLE; waffle boots) Skin: no rashes, warm and dry Psychiatric: Orientation: alert Genitourinary: + bladder abnormality (Palencia cath) Results & Data Vital Signs (Past 12 Hours) Vital Signs Temp Pulse Pulse Resp BP BP BP 12/02/19 07:34 62 21 12/02/19 06:00 37.0 C 59 L 22 149/54 H 110/86 12/02/19 05:00 58 L 18 148/53 H 103/56 L 12/02/19 04:00 36.9 C 55 L 56 L 16 134/52 L 134/52 L 103/55 L 12/02/19 03:00 54 L 16 134/52 L 104/56 L 12/02/19 02:00 36.7 C 56 L 16 132/53 L 102/55 L 12/02/19 01:06 60 60 20 12/02/19 01:00 56 L 16 102/57 L 129/53 L 12/02/19 00:00 60 63 22 97/54 L 129/54 L 97/54 L 12/01/19 23:00 57 L 16 114/51 L 95/51 L 12/01/19 22:00 60 18 94/52 L 110/49 L 12/01/19 21:00 65 18 106/49 L 12/01/19 20:00 36.7 C 70 63 20 107/49 L 107/49 L 95/52 L Pulse Ox 12/02/19 07:34 93 12/02/19 06:00 12/02/19 05:00 94 12/02/19 04:00 95 12/02/19 03:00 94 12/02/19 02:00 97 12/02/19 01:06 93 12/02/19 01:00 94 12/02/19 00:00 97 12/01/19 23:00 99 12/01/19 22:00 96 12/01/19 21:00 97 12/01/19 20:00 99 Laboratory Results Laboratory Results - last 24 hr 11/20/19 12/01/19 12/01/19 05:40 07:52 11:27 WBC RBC Hgb Hct MCV MCH MCHC RDW Std Deviation RDW Coeff of Taye Plt Count MPV Immature Gran % (Auto) Neut % (Auto) Lymph % (Auto) [place] % (Auto) Eos % (Auto) Baso % (Auto) Immature Gran # (Auto) Neut # (Auto) Lymph # (Auto) [place] # (Auto) Eos # (Auto) Baso # (Auto) ESR ABG pH ABG pCO2 ABG pO2 ABG HCO3 ABG O2 Saturation ABG Base Excess Juan Test Barometric Pressure Oxygen Given Sodium Potassium Chloride Carbon Dioxide Anion Gap BUN Creatinine Est Cr Clr Drug Dosing Est GFR ( Amer) Est GFR (Non-Af Amer) BUN/Creatinine Ratio Glucose POC Glucose 184 H 162 H Calcium Phosphorus Magnesium C-Reactive Protein Total Protein (PEP) 3.7 L Albumin (PEP) SEE NOTE Uorqa-0-Vqakhtqot 0.5 H Qordp-1-Pfjcgjnbb 0.6 Lsek-9-Vmbodswo 0.2 L Ezoz-7-Lmigzbkk 0.4 Gamma Globulins 0.6 L Monoclonal Peak 3 DNR Ser Monoclonl Protein DNR Ser Monoclonal Prot 2 DNR PEP Interpretation SEE NOTE Dfbfc-1-Lgbjydrlzvm 249 H Ceruloplasmin 19 MAURICIO Screen POSITIVE A MAURICIO Titer 1:80 H MAURICIO Pattern A Hepatitis A IgM Ab NON-REACTIVE Hepatitis A Ab Total NON-REACTIVE Hep B Core IgM Ab NON-REACTIVE Hepatitis C Ab (EIA) Cancelled Hep C Ab Signal/Cutoff Cancelled 12/01/19 12/01/19 12/01/19 15:51 15:58 19:53 WBC RBC Hgb Hct MCV MCH MCHC RDW Std Deviation RDW Coeff of Taye Plt Count MPV Immature Gran % (Auto) Neut % (Auto) Lymph % (Auto) [place] % (Auto) Eos % (Auto) Baso % (Auto) Immature Gran # (Auto) Neut # (Auto) Lymph # (Auto) [place] # (Auto) Eos # (Auto) Baso # (Auto) ESR ABG pH ABG pCO2 ABG pO2 ABG HCO3 ABG O2 Saturation ABG Base Excess Juan Test Barometric Pressure Oxygen Given Sodium 141 Potassium 2.4 L* Chloride 106 Carbon Dioxide 28 Anion Gap 7.0 BUN 16 Creatinine 0.99 Est Cr Clr Drug Dosing 61.2 Est GFR ( Amer) 70.8 Est GFR (Non-Af Amer) 61.1 BUN/Creatinine Ratio 16.2 Glucose 93 POC Glucose 103 H 97 Calcium 7.2 L Phosphorus 2.7 Magnesium 1.9 C-Reactive Protein Total Protein (PEP) Albumin (PEP) Tjmgv-5-Cnsufgafq Vyxnx-3-Ngovpmcdh Qjhy-3-Bmkloetw Mxbh-6-Ibvqayfx Gamma Globulins Monoclonal Peak 3 Ser Monoclonl Protein Ser Monoclonal Prot 2 PEP Interpretation Vrulc-2-Hpwygehjyfx Ceruloplasmin MAURICIO Screen MAURICIO Titer MAURICIO Pattern Hepatitis A IgM Ab Hepatitis A Ab Total Hep B Core IgM Ab Hepatitis C Ab (EIA) Hep C Ab Signal/Cutoff 12/02/19 12/02/19 12/02/19 00:14 04:11 04:40 WBC RBC Hgb Hct MCV MCH MCHC RDW Std Deviation RDW Coeff of Taye Plt Count MPV Immature Gran % (Auto) Neut % (Auto) Lymph % (Auto) [place] % (Auto) Eos % (Auto) Baso % (Auto) Immature Gran # (Auto) Neut # (Auto) Lymph # (Auto) [place] # (Auto) Eos # (Auto) Baso # (Auto) ESR ABG pH ABG pCO2 ABG pO2 ABG HCO3 ABG O2 Saturation ABG Base Excess Juan Test Barometric Pressure Oxygen Given Sodium 141 Potassium 2.6 L Chloride 107 Carbon Dioxide 31 Anion Gap 3.0 BUN 16 Creatinine 0.89 Est Cr Clr Drug Dosing 68.1 Est GFR ( Amer) 80.5 Est GFR (Non-Af Amer) 69.5 BUN/Creatinine Ratio 17.5 Glucose 97 POC Glucose 93 105 H Calcium 7.1 L Phosphorus 3.1 Magnesium 1.8 C-Reactive Protein 2.10 H Total Protein (PEP) Albumin (PEP) Hrbuq-0-Cyqzujipi Ofegk-4-Kdqagpxsi Xdgw-7-Umcqlcfy Qpbp-6-Yygspqjv Gamma Globulins Monoclonal Peak 3 Ser Monoclonl Protein Ser Monoclonal Prot 2 PEP Interpretation Eiyab-7-Lqyvqliqbno Ceruloplasmin MAURICIO Screen MAURICIO Titer MAURICIO Pattern Hepatitis A IgM Ab Hepatitis A Ab Total Hep B Core IgM Ab Hepatitis C Ab (EIA) Hep C Ab Signal/Cutoff 12/02/19 12/02/19 12/02/19 04:40 04:40 04:40 WBC 8.82 RBC 2.71 L Hgb 8.5 L Hct 26.0 L MCV 95.9 MCH 31.4 MCHC 32.7 RDW Std Deviation 63.7 H RDW Coeff of Taye 18.2 H Plt Count 138 MPV 9.3 Immature Gran % (Auto) 0.5 Neut % (Auto) 91.9 Lymph % (Auto) 5.2 [place] % (Auto) 2.2 Eos % (Auto) 0.1 Baso % (Auto) 0.1 Immature Gran # (Auto) 0.04 H Neut # (Auto) 8.11 H Lymph # (Auto) 0.46 L [place] # (Auto) 0.19 Eos # (Auto) 0.01 Baso # (Auto) 0.01 ESR 15 ABG pH 7.49 H ABG pCO2 36 ABG pO2 76 L ABG HCO3 27 H ABG O2 Saturation 95.8 H ABG Base Excess 3.7 H Juan Test POS Barometric Pressure 728.0 Oxygen Given 30% Sodium Potassium Chloride Carbon Dioxide Anion Gap BUN Creatinine Est Cr Clr Drug Dosing Est GFR ( Amer) Est GFR (Non-Af Amer) BUN/Creatinine Ratio Glucose POC Glucose Calcium Phosphorus Magnesium C-Reactive Protein Total Protein (PEP) Albumin (PEP) Pppxh-4-Nseglrkub Hiybk-8-Hjvajufwr Ayyn-2-Lidmijwr Txhw-4-Gfhoxnmj Gamma Globulins Monoclonal Peak 3 Ser Monoclonl Protein Ser Monoclonal Prot 2 PEP Interpretation Czgun-4-Vitjrjxtulm Ceruloplasmin MAURICIO Screen MAURICIO Titer MAURICIO Pattern Hepatitis A IgM Ab Hepatitis A Ab Total Hep B Core IgM Ab Hepatitis C Ab (EIA) Hep C Ab Signal/Cutoff (1) Left rib fracture Encounter type: initial encounter Fracture type: closed Rib fracture type: multiple ribs Qualified Code(s): S22.42XA - Multiple fractures of ribs, left side, initial encounter for closed fracture
--- NOTE | 2019-12-02 07:59 | Critical Care Progress Note ---
Date of Service December 02, 2019 Assessment & Plan (1) Acute hypoxemic respiratory failure: Impression: 63-year-old female with history of diabetes hypertension and prior bariatric surgery presenting with nausea and vomiting found to have incidentally persistent bacteremia with right septic knee. She is brought to the ICU post video-assisted thoracoscopic washout for complicated parapneumonic effusion. 24-hour events: Extubated 12/01/2019. Hemodynamically doing well. Recommendations: -- Severe sepsis s/p septic shock: Off pressors. On hydrocortisone for relative adrenal insufficiency. Titrating Hydrocortisone off -- Persistent MRSA bacteremia: Last blood cultures from 11/24/2019 no growth to date. Changed from daptomycin to ceftaroline 11/26/2019 for improved pulmonary penetration given her x-ray pattern. Assessed for PICC line did not show an appropriate vein. Continue central line for now. Will need to reassess prior to discharge. -- Empyema: Chest tube removed 11/28/2019. CXR showed improvement -- S/p VDRF: Continue duo nebs every 6. Weaning oxygen as tolerated. BiPAP qhs and PRN SOB -- Anemia: Suspect slow ooze from gastric ulcer. On PPI BID IV. B12 and folate acceptable. Monitor hemoglobin and hematocrit. Transfuse for Hb<7.5 -- Abnormal LFTs: AST and ALT trending down MRCP mild ductal dilatation likely sec to Cholecystectomy -- Septic left knee: Status post washout per orthopedics. -- Urinary tract infection: Urine growing sensitive E. coli and Klebsiella. Covered by ceftaroline -- Poor nutritional status: Albumin remains low. Nutrition following with calorie counts. -- DVT prophylaxis On Lovenox --Hypokalemia Being replaced Patient is also on 20 KCl twice daily --EKG changes New T wave inversions appreciated on the lateral leads which were not present on the EKG done before. Patient is asymptomatic. Could be electrolyte derangement given the patient has hypokalemia. We will repeat an EKG after the potassium has been replaced We will get cardiology involved. Patient had a recent echo 11/18/19 which did not show any regional wall motion abnormalities and ejection fraction was good. Plan: CXR shows improvement on daily basis. Replace potassium, repeat BMP yesterday Removal arterial line and Vee. Go down on hydrocortisone to 50 every 12 Swallow eval Physical therapy Try to get midline on the patient Decrease Lasix to 40 every 12 hours. Hold Lasix in the morning till all the potassium has been replaced and then give the dose. I have personally spent 40 minutes of critical care time in the direct management of this patient. This is a life/limb threatening event. This includes time spent evaluating patient, direct bedside care, chart review, placing orders, interpretation of diagnostic studies, discussion with consultants, patient, and family members, as well as other required patient management activities. This time is exclusive of all separately billable procedures, and teaching time and separate from and in addition to any other critical care service time. Please note the above document was generated using voice recognition software. It may contain grammatical, syntax or spelling errors. (2) Pleural effusion: (3) Septic shock: Subjective Patient seen and examined at bedside. No acute distress, no adverse events overnight. Patient was extubated on 12/01/2019. Patient doing well saturating well on BiPAP. Patient responding to all questions appropriately. Awake alert oriented x3. Denies any chest pain, no shortness of breath, no headache, no nausea, no vomiting. Asking to eat. Review of Systems Review of Systems: All systems reviewed & are unremarkable except as noted in HPI & below Physical Exam Physical Exam: Constitutional: No acute distress HEENT: EOMI, PERRLA Respiratory system: Decreased air entry bilaterally, no wheeze, no rhonchi, positive crackles bilateral lower lobes. CVS: S1-S2 positive, no murmurs or gallops Abdomen: Soft, nontender, nondistended, positive bowel sounds x4 Extremities: +2 pulses bilaterally radialis/ dorsalis pedis, no cyanosis, +2 edema b/l LE Neuro: Awake alert oriented x3, moving all the extremities appropriately Psych: Normal mood and affect G/U: +ve vee Skin: Break down on coccyx Left subclavian triple-lumen, left radial A-line Skin: no rashes, warm and dry Lymphatic: no cervical or axillary lymphadenopathy Results & Data Vital Signs (Past 12 Hours) Vital Signs Temp Pulse Pulse Resp BP BP BP 12/02/19 07:34 62 21 12/02/19 07:30 62 21 12/02/19 06:00 37.0 C 59 L 22 149/54 H 110/86 12/02/19 05:00 58 L 18 148/53 H 103/56 L 12/02/19 04:00 36.9 C 55 L 56 L 16 134/52 L 134/52 L 103/55 L 12/02/19 03:00 54 L 16 134/52 L 104/56 L 12/02/19 02:00 36.7 C 56 L 16 132/53 L 102/55 L 12/02/19 01:06 60 60 20 12/02/19 01:00 56 L 16 102/57 L 129/53 L 12/02/19 00:00 60 63 22 97/54 L 129/54 L 97/54 L 12/01/19 23:00 57 L 16 114/51 L 95/51 L 12/01/19 22:00 60 18 94/52 L 110/49 L 12/01/19 21:00 65 18 106/49 L 12/01/19 20:00 36.7 C 70 63 20 107/49 L 107/49 L 95/52 L Pulse Ox 12/02/19 07:34 93 12/02/19 07:30 93 12/02/19 06:00 12/02/19 05:00 94 12/02/19 04:00 95 12/02/19 03:00 94 12/02/19 02:00 97 12/02/19 01:06 93 12/02/19 01:00 94 12/02/19 00:00 97 12/01/19 23:00 99 12/01/19 22:00 96 12/01/19 21:00 97 12/01/19 20:00 99 12/02/19 04:40 12/02/19 04:40 Coding Level of Care Code Critical Care 1st 30-74 mins Diagnoses Acute hypoxemic respiratory failure J96.01 Pleural effusion J90 Septic shock A41.9; R65.21 Time Spent (min) 40
[2019-12-02] MEDS: MAGNESIUM SULFATE / D5W 1 GM/100 ML BAG IV SCH ×2 (08:52→09:57)
[2019-12-02] MEDS: ENOXAPARIN INJ 40 MG/0.4 ML SYR SQ SCH (08:52)
[2019-12-02] MEDS: D5W AND 1/2NSS 1,000 ML IV SCH (10:00)
[2019-12-02] MEDS: PANTOprazole 40 MG in SYRINGE 0 ML IV SCH ×2 (10:02→23:23)
--- NOTE | 2019-12-02 10:28 | Pharmacy Report ---
Pharmacy Glycemic Short Note 2 - Date of Service December 02, 2019 - Glycemic Short BSG Results (Last 24 hours): 12/01/19 12/01/19 12/01/19 11:27 15:51 15:58 Glucose 93 POC Glucose 162 H 103 H 12/01/19 12/02/19 12/02/19 19:53 00:14 04:11 Glucose POC Glucose 97 93 105 H 12/02/19 12/02/19 04:40 08:44 Glucose 97 POC Glucose 99 OUTPATIENT ANTIDIABETIC REGIMEN: * + h/o type 2 DM however no medications * A1c = 4.9% ASSESSMENT: 12/02 * Fasting BSG 99 this AM with 13 units of Lantus on board from yesterday. * BSGs have ranged 97-103 for > 12 hrs. * Will discontinue basal insulin coverage at this time as dextrose containing IVFs have not led to hyperglycemia and the patient remains NPO * Will also remove the carb ratio from Novolog order as pt has been improving clinically and steroid is again being tapered; A1c only 4.9% leading me to believe that once acute stressors subside no insulin will be required. 12/01 * New events over last 24 hrs: Patient successfully extubated this AM, tube feedings stopped, steroid being weaned (HC 50mg Q 6 hrs --> 50mg Q 8 hrs), dextrose containing IVFs initiated, diuresis continues today * BSGs did climb with the initiation of continuous tube feeds. When these tube feeds were not in use, pt required no insulin once pressors weaned off * Will lessening basal insulin doses at this time as CHO delivery in IVFs less likely to lead to severe hyperglycemia vs continuous tube feeds PLAN FOR INPATIENT GLYCEMIC CONTROL: * Lantus * none at this time * Novolog * Change to Q 6 hr coverage * Goal Range: 120-150mg/dL * Correction Factor 30mg/dL/unit * Carb Ratio: none at this time PLAN FOR DISCHARGE: * given A1c results (4.9%) may be discharged w/o medications for DM, continue dietary/lifestyle interventions
--- NOTE | 2019-12-02 10:48 | Cardiology Consultation ---
Date of Consultation December 02, 2019 Assessment & Plan (1) Cardiomyopathy: (2) Malnutrition: (3) Acute respiratory failure with hypoxia: (4) Empyema of left pleural space: (5) Septic shock: (6) Septic arthritis of knee, left: (7) LFT elevation: (8) Hypokalemia: (9) Gram positive sepsis: Her EKG changes do correspond with significant drop of her LV systolic function. 2D echocardiogram performed earlier this admission showed normal LV systolic function without regional wall motion abnormality, EF 65 to 70%. Repeat echocardiogram now shows an apical ballooning pattern along significantly reduced LV systolic function EF approximately 30 to 35%. 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 Given her lack of symptoms I do not believe an ischemic work-up is warranted at this point. We will treat her supportively with evidence-based beta-cynthia and ARB as her vital signs allow. Obviously, will defer further treatment of her multiple other medical issues to the primary and specialty teams. Continue to monitor on telemetry while admitted. History of Present Illness Reason for Consultation: EKG changes Requesting Physician: Dr. Leavitt Attending Physician: Kamaljit Leavitt MD History of Present Illness It was my pleasure to see Ms. Kelley in consultation today December 02, 2019. She is a very pleasant yet currently very medically complex who presented to [facility] on 11/17/2019 with complaints of nausea and vomiting. During extended hospital stay she was found to have septic shock with gram-positive sepsis, MRSA empyema as well as MRSA septic arthritis of the left knee complicated by acute respiratory failure with hypoxia, anemia and electrolyte abnormalities. She was incidentally found to have T wave inversions on telemetry monitoring and repeat EKG confirmed this. Cardiology was now consulted. Clinically she states that she feels very tired and wiped out and has some back pain at the site of the chest tube placement. But she denies cardiac complaints of chest pain, palpitations, lightheadedness, dizziness or syncope. She states that she had not had chest pain at all during this admission but obviously her breathing has been variable. She has no previous known cardiac history Allergies Allergy/AdvReac Type Severity Reaction Status Date / Time Sulfa (Sulfonamide Allergy Severe FACE/THROAT Verified 11/17/19 02:12 Antibiotics) SWELL UP Home Medications Home Medications Medication Instructions Recorded Confirmed Type cyanocobalamin (vitamin B-12) 500 mcg PO DAILY 08/16/19 11/17/19 History [Vitamin B-12] esomeprazole magnesium [Nexium] 40 mg PO DAILY 08/16/19 11/17/19 History folic acid 1 mg PO DAILY 08/16/19 11/17/19 History misoprostol [Cytotec] 100 mcg PO QID 08/16/19 11/17/19 History thiamine HCl (vitamin B1) [Vitamin 100 mg PO QAM #30 tab 08/22/19 11/17/19 Rx B-1] meclizine 25 mg PO Q8H PRN #30 tab 09/29/19 11/17/19 Rx duloxetine 30 mg PO BID 11/17/19 11/17/19 History fludrocortisone 0.1 mg PO DAILY 11/17/19 11/17/19 History gabapentin 300 mg PO TID 11/17/19 11/17/19 History levothyroxine 25 mcg PO DAILY 11/17/19 11/17/19 History nortriptyline 25 mg PO HS 11/17/19 11/17/19 History sucralfate 1 g PO ACHS 11/17/19 11/17/19 History Patient History Medical History Acute alcohol abuse (Chronic) Alcohol abuse Alcoholism Anemia, iron deficiency (Chronic) Arthritis (Chronic) Bacteremia Diabetes mellitus type 2, controlled DVT prophylaxis Esophagus disorder Gram positive sepsis Hypokalemia Small bowel obstruction (Resolved) Ulcer GI Surgical History History of incision and drainage (08/18/19) Left Axillary Abscess Incision and Drainage Dr. Perdue 08/18/19 Status post appendectomy (Chronic) Status post cholecystectomy (Chronic) Status post gastric bypass for obesity (Chronic) Status post hysterectomy (Chronic) Family History Other No pertinent family history in first degree relatives Social History Preferred Language: [place] Islander Communication Ability: Effective Manager [place] Required: No Beliefs That Will Affect Care: None marital status: Current Living Situation: Other Current Living Situation Comment: Friend Feels Safe at Home: Yes Safety Concerns: Feels Safe At This Time Smoking Status: Former smoker Tobacco Type: cigarettes ; Second Hand Exposure: Yes ; Hx Alcohol Use: Yes Alcohol type: beer and hard liquor Hx Substance Use: No Review of Systems Review of Systems: All systems reviewed & are unremarkable except as noted in HPI & below Physical Exam Physical Exam: General: Awake, alert and oriented x 3. No acute distress. HEENT: Normocephalic, atraumatic. Pupils equal, round and reactive to light and accommodation. Extraocular muscles are intact. Anicteric sclera. Moist mucous membranes. Neck: No JVD. No bruit. Cardiovascular: Regular. Positive S-4. Normal S-1 and S-2. No S-3. No murmurs or rubs. Pulmonary: Clear to auscultation B/L. No rales, rhonchi or wheezing Abdomen: Bowel sounds x 4, soft. No rebound, guarding or tenderness. No organomegaly. Extremities: No clubbing, cyanosis or edema. +2 pedal pulses bilaterally. Skin: Warm and dry. Results & Data Vital Signs (Past 12 Hours) Vital Signs Temp Pulse Pulse Resp BP BP BP 12/02/19 08:00 36.7 C 62 20 105/58 L 12/02/19 07:34 62 21 12/02/19 07:30 62 21 12/02/19 06:00 37.0 C 59 L 22 149/54 H 110/86 12/02/19 05:00 58 L 18 148/53 H 103/56 L 12/02/19 04:00 36.9 C 55 L 56 L 16 134/52 L 134/52 L 103/55 L 12/02/19 03:00 54 L 16 134/52 L 104/56 L 12/02/19 02:00 36.7 C 56 L 16 132/53 L 102/55 L 12/02/19 01:06 60 60 20 12/02/19 01:00 56 L 16 102/57 L 129/53 L 12/02/19 00:00 60 63 22 97/54 L 129/54 L 97/54 L 12/01/19 23:00 57 L 16 114/51 L 95/51 L Pulse Ox 12/02/19 08:00 91 12/02/19 07:34 93 12/02/19 07:30 93 12/02/19 06:00 12/02/19 05:00 94 12/02/19 04:00 95 12/02/19 03:00 94 12/02/19 02:00 97 12/02/19 01:06 93 12/02/19 01:00 94 12/02/19 00:00 97 12/01/19 23:00 99
[2019-12-02] MEDS: LEVOTHYROXINE SODIUM 12.5 MCG in SYRINGE 0 ML IV SCH (10:49)
[2019-12-02 16:05] LABS: BUN Creatinine Ratio 15.5 (10-20); Calcium 7.1 mg/dl (8.5-10.1); Creatinine Clr Calc Pharmacy 65.2 ml/min; Est GFR (African American) 76.3; Est GFR (Non-African American) 65.9; Potassium 2.7 mmol/L (3.5-5.1)
[2019-12-02] MEDS ORDERED: POTASSIUM CHLORIDE / WTR 20 MEQ/100 ML PLCT IV STA (16:11)
--- NOTE | 2019-12-02 16:25 | Progress Note ---
DATE: 12/02/2019 I was quite pleased to see Mrs. Kelley extubated today. She still remains markedly edematous and has some essentially anasarca. I inspected her left chest tube sites and they are not really healing well, but they are clean. We placed antimicrobial over this. In addition, I reviewed her chest x-ray, which I think actually looks pretty good. She has very little in the way of fluid on the left side. We will continue to follow this periodically. She is now postoperative day #8 from a left thoracoscopy with extensive decortication.
[2019-12-02] MEDS ORDERED: POTASSIUM CHLORIDE 20 MEQ TABCR PO ONE (16:30)
[2019-12-02] MEDS: ONDANSETRON INJ 2 MG/ML 2 ML VIAL IV PRN ×2 (17:01→21:35)
--- NOTE | 2019-12-02 17:49 | Orthopedic Progress Note ---
Date of Service December 02, 2019 Assessment & Plan (1) Septic arthritis of knee, left: Postop day 5 s/p arthroscopic I+D Left knee -ceftaroline -DVT ppx: SCDs, TEDs, Lovenox daily -WBAT LLE -PT/OT when medically stable -Trend inflammatory labs: ESR 15, CRP 2.1, significantly improved. Patient will need to follow up with Dr. Rodriguez 10-14 days post operatively. Suture removal and incision check. Subjective Post Operative Progress Note Patient seen sitting up in bed, comfortable, denies complaints, pain well controlled, no acute issues. Denies F/C/N/V/SOP/CP, extubated. Review of Systems Review of Systems: All systems reviewed & are unremarkable except as noted in HPI & below Constitutional: as per Subjective / HPI Physical Exam Physical Exam: LLE NVSI +EHL/FHL/TA/GS SILT grossly, +2 DP pulse, compartments soft NT, incisions cdi, mild effusion Constitutional: WD/WN, vitals as above Results & Data ([facility]) Vital Signs (Past 12 Hours) Vital Signs Temp Pulse Pulse Resp BP BP BP 12/02/19 17:00 67 23 12/02/19 16:51 67 22 117/61 12/02/19 16:15 67 12/02/19 15:51 36.5 C 72 23 105/54 L 12/02/19 14:52 67 23 91/56 L 12/02/19 13:51 36.4 C L 67 23 111/54 L 12/02/19 13:03 81 19 12/02/19 12:51 36.5 C 60 21 108/65 12/02/19 12:00 68 14 111/59 L 12/02/19 11:33 63 18 115/60 12/02/19 10:07 61 20 105/60 12/02/19 08:00 36.7 C 60 20 105/58 L 12/02/19 07:34 62 21 12/02/19 07:30 62 21 12/02/19 06:00 37.0 C 59 L 22 149/54 H 110/86 Pulse Ox 12/02/19 17:00 92 12/02/19 16:51 93 12/02/19 16:15 12/02/19 15:51 94 12/02/19 14:52 94 12/02/19 13:51 94 12/02/19 13:03 96 12/02/19 12:51 97 12/02/19 12:00 93 12/02/19 11:33 95 12/02/19 10:07 94 12/02/19 08:00 91 12/02/19 07:34 93 12/02/19 07:30 93 12/02/19 06:00 Laboratory Results 12/02/19 12/02/19 12/02/19 Range/Units 17:05 15:14 12:24 WBC (4.8-10.8) K/uL RBC (4.2-5.4) M/uL Hgb (12.0-16.0) g/dL Hct (37-47) % MCV (80-100) fL MCH (25-34) pg MCHC (32-36) g/dL RDW Std Deviation (36.4-46.3) fL RDW Coeff of Taye (11.5-14.5) % Plt Count (130-400) K/uL MPV (7.4-10.4) fL Immature Gran % (Auto) % Neut % (Auto) % Lymph % (Auto) % [place] % (Auto) % Eos % (Auto) % Baso % (Auto) % Immature Gran # (Auto) (0.00-0.02) K/uL Neut # (Auto) (1.4-6.5) K/uL Lymph # (Auto) (1.2-3.4) K/uL [place] # (Auto) (0.11-0.59) K/uL Eos # (Auto) (0-0.5) K/uL Baso # (Auto) (0-0.2) K/uL ESR (0-21) mm/hr ABG pH (7.35-7.45) ABG pCO2 (35-46) mmHg ABG pO2 (80-95) mmHg ABG HCO3 (19-24) mmol/L ABG O2 Saturation (90-95) % ABG Base Excess (-9-1.8) mEq/L Juan Test (Pos) Barometric Pressure mm/Hg Oxygen Given Sodium 140 (136-145) mmol/L Potassium 2.7 L (3.5-5.1) mmol/L Chloride 105 (98-107) mmol/L Carbon Dioxide 30 (21-32) mmol/L Anion Gap 5.0 (3-11) BUN 14 (7-18) mg/dl Creatinine 0.93 (0.6-1.2) mg/dl Est Cr Clr Drug Dosing 65.2 ml/min Est GFR ( Amer) 76.3 Est GFR (Non-Af Amer) 65.9 BUN/Creatinine Ratio 15.5 (10-20) Glucose 128 H (70-99) mg/dl POC Glucose 147 H 110 H (70-99) mg/dl Calcium 7.1 L (8.5-10.1) mg/dl Phosphorus (2.5-4.9) mg/dl Magnesium (1.8-2.4) mg/dl C-Reactive Protein (0-0.29) mg/dl 12/02/19 12/02/19 12/02/19 Range/Units 08:44 04:40 04:40 WBC 8.82 (4.8-10.8) K/uL RBC 2.71 L (4.2-5.4) M/uL Hgb 8.5 L (12.0-16.0) g/dL Hct 26.0 L (37-47) % MCV 95.9 (80-100) fL MCH 31.4 (25-34) pg MCHC 32.7 (32-36) g/dL RDW Std Deviation 63.7 H (36.4-46.3) fL RDW Coeff of Taye 18.2 H (11.5-14.5) % Plt Count 138 (130-400) K/uL MPV 9.3 (7.4-10.4) fL Immature Gran % (Auto) 0.5 % Neut % (Auto) 91.9 % Lymph % (Auto) 5.2 % [place] % (Auto) 2.2 % Eos % (Auto) 0.1 % Baso % (Auto) 0.1 % Immature Gran # (Auto) 0.04 H (0.00-0.02) K/uL Neut # (Auto) 8.11 H (1.4-6.5) K/uL Lymph # (Auto) 0.46 L (1.2-3.4) K/uL [place] # (Auto) 0.19 (0.11-0.59) K/uL Eos # (Auto) 0.01 (0-0.5) K/uL Baso # (Auto) 0.01 (0-0.2) K/uL ESR (0-21) mm/hr ABG pH 7.49 H (7.35-7.45) ABG pCO2 36 (35-46) mmHg ABG pO2 76 L (80-95) mmHg ABG HCO3 27 H (19-24) mmol/L ABG O2 Saturation 95.8 H (90-95) % ABG Base Excess 3.7 H (-9-1.8) mEq/L Juan Test POS (Pos) Barometric Pressure 728.0 mm/Hg Oxygen Given 30% Sodium (136-145) mmol/L Potassium (3.5-5.1) mmol/L Chloride (98-107) mmol/L Carbon Dioxide (21-32) mmol/L Anion Gap (3-11) BUN (7-18) mg/dl Creatinine (0.6-1.2) mg/dl Est Cr Clr Drug Dosing ml/min Est GFR ( Amer) Est GFR (Non-Af Amer) BUN/Creatinine Ratio (10-20) Glucose (70-99) mg/dl POC Glucose 99 (70-99) mg/dl Calcium (8.5-10.1) mg/dl Phosphorus (2.5-4.9) mg/dl Magnesium (1.8-2.4) mg/dl C-Reactive Protein (0-0.29) mg/dl 12/02/19 12/02/19 12/02/19 Range/Units 04:40 04:40 04:11 WBC (4.8-10.8) K/uL RBC (4.2-5.4) M/uL Hgb (12.0-16.0) g/dL Hct (37-47) % MCV (80-100) fL MCH (25-34) pg MCHC (32-36) g/dL RDW Std Deviation (36.4-46.3) fL RDW Coeff of Taye (11.5-14.5) % Plt Count (130-400) K/uL MPV (7.4-10.4) fL Immature Gran % (Auto) % Neut % (Auto) % Lymph % (Auto) % [place] % (Auto) % Eos % (Auto) % Baso % (Auto) % Immature Gran # (Auto) (0.00-0.02) K/uL Neut # (Auto) (1.4-6.5) K/uL Lymph # (Auto) (1.2-3.4) K/uL [place] # (Auto) (0.11-0.59) K/uL Eos # (Auto) (0-0.5) K/uL Baso # (Auto) (0-0.2) K/uL ESR 15 (0-21) mm/hr ABG pH (7.35-7.45) ABG pCO2 (35-46) mmHg ABG pO2 (80-95) mmHg ABG HCO3 (19-24) mmol/L ABG O2 Saturation (90-95) % ABG Base Excess (-9-1.8) mEq/L Juan Test (Pos) Barometric Pressure mm/Hg Oxygen Given Sodium 141 (136-145) mmol/L Potassium 2.6 L (3.5-5.1) mmol/L Chloride 107 (98-107) mmol/L Carbon Dioxide 31 (21-32) mmol/L Anion Gap 3.0 (3-11) BUN 16 (7-18) mg/dl Creatinine 0.89 (0.6-1.2) mg/dl Est Cr Clr Drug Dosing 68.1 ml/min Est GFR ( Amer) 80.5 Est GFR (Non-Af Amer) 69.5 BUN/Creatinine Ratio 17.5 (10-20) Glucose 97 (70-99) mg/dl POC Glucose 105 H (70-99) mg/dl Calcium 7.1 L (8.5-10.1) mg/dl Phosphorus 3.1 (2.5-4.9) mg/dl Magnesium 1.8 (1.8-2.4) mg/dl C-Reactive Protein 2.10 H (0-0.29) mg/dl 12/02/19 12/01/19 Range/Units 00:14 19:53 WBC (4.8-10.8) K/uL RBC (4.2-5.4) M/uL Hgb (12.0-16.0) g/dL Hct (37-47) % MCV (80-100) fL MCH (25-34) pg MCHC (32-36) g/dL RDW Std Deviation (36.4-46.3) fL RDW Coeff of Taye (11.5-14.5) % Plt Count (130-400) K/uL MPV (7.4-10.4) fL Immature Gran % (Auto) % Neut % (Auto) % Lymph % (Auto) % [place] % (Auto) % Eos % (Auto) % Baso % (Auto) % Immature Gran # (Auto) (0.00-0.02) K/uL Neut # (Auto) (1.4-6.5) K/uL Lymph # (Auto) (1.2-3.4) K/uL [place] # (Auto) (0.11-0.59) K/uL Eos # (Auto) (0-0.5) K/uL Baso # (Auto) (0-0.2) K/uL ESR (0-21) mm/hr ABG pH (7.35-7.45) ABG pCO2 (35-46) mmHg ABG pO2 (80-95) mmHg ABG HCO3 (19-24) mmol/L ABG O2 Saturation (90-95) % ABG Base Excess (-9-1.8) mEq/L Juan Test (Pos) Barometric Pressure mm/Hg Oxygen Given Sodium (136-145) mmol/L Potassium (3.5-5.1) mmol/L Chloride (98-107) mmol/L Carbon Dioxide (21-32) mmol/L Anion Gap (3-11) BUN (7-18) mg/dl Creatinine (0.6-1.2) mg/dl Est Cr Clr Drug Dosing ml/min Est GFR ( Amer) Est GFR (Non-Af Amer) BUN/Creatinine Ratio (10-20) Glucose (70-99) mg/dl POC Glucose 93 97 (70-99) mg/dl Calcium (8.5-10.1) mg/dl Phosphorus (2.5-4.9) mg/dl Magnesium (1.8-2.4) mg/dl C-Reactive Protein (0-0.29) mg/dl
[2019-12-02] MEDS: METOPROLOL SUCC 25MG EXT REL TAB PO SCH (17:52)
[2019-12-02] MEDS: POTASSIUM CHLORIDE / WTR 10 MEQ/100 ML PLCT IV SCH ×2 (17:52→19:01)
[2019-12-02] MEDS: POTASSIUM CHLORIDE 20 MEQ TABCR PO SCH (21:35)
[2019-12-02] MEDS: ACETAMINOPHEN 325 MG TAB PO PRN (23:33)
[2019-12-03] MEDS: INSULIN ASPART 100 UNITS/ML 3 ML PEN SC SCH ×5 (00:02→20:34)
[2019-12-03] MEDS: ALBUT/IPRATROP 3MG/0.5MG NEB 3 ML VIAL NEB SCH ×4 (01:18→19:06)
[2019-12-03 04:34] LABS: Basophils # (auto) 0.01 K/uL (0-0.2); Basophils % (auto) 0.1 %; Eosinophils # (auto) 0.05 K/uL (0-0.5); Eosinophils % (auto) 0.5 %; Hematocrit (blood only) 28.4 % (37-47); Immature Granulocytes # (auto) 0.04 K/uL (0.00-0.02); Immature Granulocytes % (auto) 0.4 %; Lymphocytes # (auto) 0.57 K/uL (1.2-3.4); Lymphocytes % (auto) 5.4 %; Mean Corpuscular Hemoglobin 30.9 pg (25-34); Mean Corpuscular Hgb Conc 31.7 g/dL (32-36); Mean Corpuscular Volume 97.6 fL (80-100); Monocytes # (auto) 0.25 K/uL (0.11-0.59); Monocytes % (auto) 2.4 %; Neutrophils # (auto) 9.67 K/uL (1.4-6.5); Neutrophils % (auto) 91.2 %; Platelet Count 145 K/uL (130-400); RDW Coefficient of Variation 18.3 % (11.5-14.5); Red Blood Count 2.91 M/uL (4.2-5.4); White Blood Count 10.59 K/uL (4.8-10.8)
[2019-12-03 04:52] LABS: BUN Creatinine Ratio 16.9 (10-20); Calcium 7.2 mg/dl (8.5-10.1); Creatinine Clr Calc Pharmacy 69.6 ml/min; Est GFR (African American) 82.8; Est GFR (Non-African American) 71.4; Magnesium 1.9 mg/dl (1.8-2.4); Potassium 3.8 mmol/L (3.5-5.1)
[2019-12-03] MEDS: ONDANSETRON INJ 2 MG/ML 2 ML VIAL IV PRN (05:14)
[2019-12-03] MEDS: FUROSEMIDE 40 MG in SYRINGE 0 ML IV SCH ×2 (06:11→18:47)
[2019-12-03] MEDS: CEFTAROLINE FOSAMIL ACETATE IV SCH ×3 (07:19→23:50)
[2019-12-03] MEDS: SODIUM CHLORIDE 0.9% IV SCH ×3 (07:19→23:50)
--- NOTE | 2019-12-03 07:19 | XRay Report ---
XR chest 1V portable CLINICAL HISTORY: f/u dyspnea COMPARISON STUDY: 12/02/2019 FINDINGS: Mild cardiomegaly. Central catheter has been removed. Patchy bilateral parenchymal infiltrative changes are similar. Slight increase in prominence of lung base. IMPRESSION: Interval Central catheter removal. Pulmonary edema versus diffuse bilateral parenchymal infiltrative change slightly improved although slightly progressive focally at the left lung base. ACT 112: Negative or not required by law. The above report was generated using voice recognition software. It may contain grammatical, syntax or spelling errors. Electronically signed by: Konrad Issa M.D. 12/03/2019 7:17 AM
[2019-12-03] MEDS: METOCLOPRAMIDE HCL INJ 5 MG/ML 2 ML VIAL IV PRN (07:20)
[2019-12-03] MEDS ORDERED: MAGNESIUM SULFATE / D5W 1 GM/100 ML BAG IV SCH (08:45)
--- NOTE | 2019-12-03 08:45 | Critical Care Progress Note ---
Date of Service December 03, 2019 Assessment & Plan (1) Acute hypoxemic respiratory failure: Impression: 63-year-old female with history of diabetes hypertension and prior bariatric surgery presenting with nausea and vomiting found to have incidentally persistent bacteremia with right septic knee. She is brought to the ICU post video-assisted thoracoscopic washout for complicated parapneumonic effusion. 24-hour events: Extubated 12/01/2019. Hemodynamically doing well. Recommendations: -- Severe sepsis s/p septic shock: Off pressors. resume fludrocortisone and DC hydrocortisone -- Persistent MRSA bacteremia: Last blood cultures from 11/24/2019 no growth to date. Changed from daptomycin to ceftaroline 11/26/2019 for improved pulmonary penetration given her x-ray pattern. Central line removed 12/02/19. Has midline -- Empyema: Chest tube removed 11/28/2019. CXR showed improvement -- S/p VDRF: Continue duo nebs every 6. Weaning oxygen as tolerated. BiPAP qhs and PRN SOB -- Anemia: Suspect slow ooze from gastric ulcer. On PPI BID. B12 and folate acceptable. Monitor hemoglobin and hematocrit. Transfuse for Hb<7.5 -- Abnormal LFTs: AST and ALT trending down MRCP mild ductal dilatation likely sec to Cholecystectomy -- Septic left knee: Status post washout per orthopedics. -- Urinary tract infection: Urine growing sensitive E. coli and Klebsiella. Covered by ceftaroline -- Poor nutritional status: Albumin remains low. Nutrition following with calorie counts. -- DVT prophylaxis On Lovenox -New onset systolic CHF As per echo done 12/02/2019 it seems like patient has Takotsubo cardiomyopathy Cardiology on board Recommends no aggressive measures right now. Continue with beta-blockers and gradually add ACEI if the blood pressure tolerates Continue with diuresis as tolerated Plan: Chest x-ray showing improvement. We will change Protonix to p.o. twice daily, will restart her fludrocortisone, resume her sucralfate, thiamine folic acid and B12. DC hydrocortisone. Continue with ceftaroline till 12/08/2019 followed by linezolid. Patient is stable enough to be downgraded to telemetry floor. Patient will need a long-term rehab. I have personally spent 40 minutes of critical care time in the direct management of this patient. This is a life/limb threatening event. This includes time spent evaluating patient, direct bedside care, chart review, placing orders, interpretation of diagnostic studies, discussion with consultants, patient, and family members, as well as other required patient management activities. This time is exclusive of all separately billable procedures, and teaching time and separate from and in addition to any other critical care service time. Please note the above document was generated using voice recognition software. It may contain grammatical, syntax or spelling errors. (2) Pleural effusion: (3) Septic shock: Subjective Patient seen and examined at bedside. No acute distress, no adverse events overnight. No shortness of breath, no chest pain, no headache, no vomiting, mild nausea. Patient has been complaining of mild abdominal pain diffuse going on since yesterday but it has improved today. Patient is having bowel movements which are nonbloody. Patient tolerating oral diet. Review of Systems Review of Systems: All systems reviewed & are unremarkable except as noted in HPI & below Physical Exam Physical Exam: Constitutional: No acute distress HEENT: EOMI, PERRLA Respiratory system: Decreased air entry bilaterally, no wheeze, no rhonchi, positive crackles bilateral lower lobes. CVS: S1-S2 positive, no murmurs or gallops Abdomen: Soft, mild epigastric tenderness, nondistended, positive bowel sounds x4 Extremities: +2 pulses bilaterally radialis/ dorsalis pedis, no cyanosis, +2 edema b/l LE Neuro: Awake alert oriented x3, moving all the extremities appropriately Psych: Normal mood and affect G/U: +ve vee Skin: Break down on coccyx Left subclavian triple-lumen and left radial A-line removed 12/02/19 Skin: no rashes, warm and dry Lymphatic: no cervical or axillary lymphadenopathy Results & Data Vital Signs (Past 12 Hours) Vital Signs Temp Pulse Pulse Resp BP BP Pulse Ox 12/03/19 07:49 36.3 C L 53 L 14 98/51 L 94 12/03/19 07:31 52 L 18 90 12/03/19 06:49 56 L 17 108/60 92 12/03/19 05:49 68 13 112/68 96 12/03/19 05:00 53 L 18 93 12/03/19 04:49 52 L 19 105/56 L 94 12/03/19 04:00 50 L 14 95 12/03/19 03:49 50 L 16 94/52 L 94 12/03/19 03:00 52 L 16 94 12/03/19 02:49 52 L 19 94/55 L 93 12/03/19 02:00 51 L 17 93 12/03/19 01:49 52 L 7 L 91/51 L 94 12/03/19 01:43 52 L 15 90/48 L 93 12/03/19 01:27 51 L 20 97 12/03/19 01:20 54 L 20 97 12/03/19 01:00 52 L 18 94 12/03/19 00:49 51 L 16 90/48 L 94 12/03/19 00:00 54 L 15 94 12/02/19 23:49 52 L 17 89/49 L 93 12/02/19 23:45 53 L 12/02/19 23:00 52 L 16 93 12/02/19 22:49 54 L 18 96/50 L 94 12/02/19 22:03 58 L 24 93 12/02/19 22:00 69 63 21 109/56 L 93 12/02/19 21:49 62 23 109/56 L 95 12/02/19 21:40 63 22 100/55 L 94 12/02/19 21:00 60 57 L 12 97/52 L 95 12/02/19 20:49 60 19 97/52 L 95 12/03/19 04:19 12/03/19 04:19 Coding Level of Care Code Critical Care 1st 30-74 mins Diagnoses Acute hypoxemic respiratory failure J96.01 Pleural effusion J90 Septic shock A41.9; R65.21 Time Spent (min) 40
[2019-12-03] MEDS: PANTOprazole 40 MG TAB PO SCH ×2 (09:47→20:35)
[2019-12-03] MEDS: LEVOTHYROXINE SODIUM 25 MCG TABLET PO SCH (09:48)
[2019-12-03] MEDS: ENOXAPARIN INJ 40 MG/0.4 ML SYR SQ SCH (09:48)
[2019-12-03] MEDS: POTASSIUM CHLORIDE 20 MEQ TABCR PO SCH ×2 (09:49→20:37)
--- NOTE | 2019-12-03 09:50 | Pharmacy Report ---
Pharmacy Glycemic Short Note 2 - Date of Service December 03, 2019 - Glycemic Short BSG Results (Last 24 hours): 12/02/19 12/02/19 12/02/19 12:24 15:14 17:05 Glucose 128 H POC Glucose 110 H 147 H 12/02/19 12/03/19 12/03/19 23:54 04:19 06:08 Glucose 127 H POC Glucose 133 H 134 H OUTPATIENT ANTIDIABETIC REGIMEN: * + h/o type 2 DM however no medications * A1c = 4.9% ASSESSMENT: 12/03 * BSGs well controlled at this time * May consider reducing frequency of BSG monitoring if BSGs not elevated after resuming diet 12/02 * Fasting BSG 99 this AM with 13 units of Lantus on board from yesterday. * BSGs have ranged 97-103 for > 12 hrs. * Will discontinue basal insulin coverage at this time as dextrose containing IVFs have not led to hyperglycemia and the patient remains NPO * Will also remove the carb ratio from Novolog order as pt has been improving clinically and steroid is again being tapered; A1c only 4.9% leading me to believe that once acute stressors subside no insulin will be required. 12/01 * New events over last 24 hrs: Patient successfully extubated this AM, tube feedings stopped, steroid being weaned (HC 50mg Q 6 hrs --> 50mg Q 8 hrs), dextrose containing IVFs initiated, diuresis continues today * BSGs did climb with the initiation of continuous tube feeds. When these tube feeds were not in use, pt required no insulin once pressors weaned off * Will lessening basal insulin doses at this time as CHO delivery in IVFs less likely to lead to severe hyperglycemia vs continuous tube feeds PLAN FOR INPATIENT GLYCEMIC CONTROL: * Lantus * none at this time * Novolog * ACHS coverage: * Goal Range: 120-150mg/dL * Correction Factor 30mg/dL/unit * Carb Ratio: none at this time PLAN FOR DISCHARGE: * given A1c results (4.9%) may be discharged w/o medications for DM, continue dietary/lifestyle interventions
[2019-12-03] MEDS: METOPROLOL SUCC 25MG EXT REL TAB PO SCH ×3 (10:43→20:34)
[2019-12-03] MEDS: CYANOCOBALAMIN 500 MCG TABLET (VITAMIN B-12) PO SCH (11:39)
[2019-12-03] MEDS: SUCRALFATE 1 GM TAB PO SCH ×2 (11:39→16:07)
[2019-12-03] MEDS: FLUDROCORTISONE ACETATE 0.1 MG TAB PO SCH (11:39)
[2019-12-03] MEDS: FOLIC ACID 1 MG TAB PO SCH (11:39)
--- NOTE | 2019-12-03 11:46 | Progress Note ---
DATE: 12/03/2019 Ms. Kelley looks much better today. She is awake. She is alert. She is on 3 liters with 95% saturations. Overall, she is improving. There is not really much that had surgically. She is moving air fairly well on the left.
--- NOTE | 2019-12-03 15:32 | Cardiology Progress Note ---
Date of Service December 03, 2019 Assessment & Plan (1) Cardiomyopathy: (2) Malnutrition: (3) Acute respiratory failure with hypoxia: (4) Empyema of left pleural space: (5) Septic shock: (6) Septic arthritis of knee, left: (7) LFT elevation: (8) Hypokalemia: (9) Gram positive sepsis: Her EKG changes do correspond with significant drop of her LV systolic function. 2D echocardiogram performed earlier this admission showed normal LV systolic function without regional wall motion abnormality, EF 65 to 70%. Repeat echocardiogram now shows an apical ballooning pattern along significantly reduced LV systolic function EF approximately 30 to 35%. 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 Given her lack of symptoms I do not believe an ischemic work-up is warranted at this point. We will treat her supportively with evidence-based beta-cynthia and ARB as her vital signs allow. BP a little tenuous with the addition of beta-cynthia and dosing frequency adjusted to help for allow for better absorption as per pharmacy colleagues recommendations. Recommend following standard holding parameters for evening dose of metoprolol succinate. Obviously, will defer further treatment of her multiple other medical issues to the primary and specialty teams. Continue to monitor on telemetry while admitted. Subjective Patient seen and examined, little more fatigued today but denying cardiac complaints. She denies any chest pain, worsening shortness of breath, palpitations, lightheadedness, dizziness or syncope. Telemetry reviewed: Normal sinus rhythm without significant ectopy or arrhythmia. Review of Systems Review of Systems: All systems reviewed & are unremarkable except as noted in HPI & below Physical Exam Physical Exam: General: Awake, alert and oriented x 3. No acute distress. HEENT: Normocephalic, atraumatic. Pupils equal, round and reactive to light and accommodation. Extraocular muscles are intact. Anicteric sclera. Moist mucous membranes. Neck: No JVD. No bruit. Cardiovascular: Regular. Positive S-4. Normal S-1 and S-2. No S-3. No murmurs or rubs. Pulmonary: Decreased air movement in bilateral bases but otherwise clear. Abdomen: Bowel sounds x 4, soft. No rebound, guarding or tenderness. No organomegaly. Extremities: No clubbing, cyanosis or edema. +2 pedal pulses bilaterally. Skin: Warm and dry. Results & Data Vital Signs (Past 12 Hours) Vital Signs Temp Pulse Pulse Resp BP Pulse Ox 12/03/19 13:59 55 L 18 96 12/03/19 12:10 73 18 95 12/03/19 12:07 66 23 96 12/03/19 12:06 74 16 73/49 L 96 12/03/19 12:00 69 24 93 12/03/19 11:38 63 26 H 83/48 L 12/03/19 11:30 62 23 98/52 L 12/03/19 10:49 60 19 89/47 L 93 12/03/19 09:49 50 L 11 L 103/62 95 12/03/19 08:49 51 L 14 104/53 L 96 12/03/19 07:49 36.3 C L 53 L 14 98/51 L 94 12/03/19 07:31 52 L 18 90 12/03/19 07:00 54 L 12/03/19 06:49 56 L 17 108/60 92 12/03/19 05:49 68 13 112/68 96 12/03/19 05:00 53 L 18 93 12/03/19 04:49 52 L 19 105/56 L 94 12/03/19 04:00 50 L 14 95 12/03/19 03:49 50 L 16 94/52 L 94
[2019-12-03 15:51] LABS: BUN Creatinine Ratio 17.9 (10-20); Calcium 7.4 mg/dl (8.5-10.1); Creatinine Clr Calc Pharmacy 61.8 ml/min; Est GFR (African American) 71.7; Est GFR (Non-African American) 61.8; Phosphorus 2.3 mg/dl (2.5-4.9)
--- NOTE | 2019-12-03 17:34 | Electrocardiogram Report ---
Test Reason : Blood Pressure : / mmHG Vent. Rate : 070 BPM Atrial Rate : 070 BPM P-R Int : 130 ms QRS Dur : 084 ms QT Int : 498 ms P-R-T Axes : 034 -25 229 degrees QTc Int : 537 ms Sinus rhythm possible Anteroseptal infarct (cited on or before 17-NOV-2019) Prolonged QT Abnormal ECG When compared with ECG of 28-NOV-2019 06:44, Vent. rate has decreased BY 55 BPM Criteria for Inferior infarct are no longer Present Confirmed by Ajith Medrano ([id number]) on 12/03/2019 5:33:45 PM Referred By: REFERRED SELF Confirmed By:Barry Medrano
[2019-12-03] MEDS: miSOPROStoL 100 MCG TAB PO SCH ×2 (19:32→20:34)
[2019-12-03] MEDS ORDERED: POTASSIUM PHOS 3 MMOL/1 ML INFUSION IV STA (19:43)
[2019-12-03] MEDS ORDERED: MAGNESIUM SULFATE / D5W 1 GM/100 ML BAG IV ONE (20:00)
[2019-12-03] MEDS ORDERED: POTASSIUM PHOSPHATE 30 MMOL in SODIUM CHLORIDE 0.9% 500 ML IV ONE (20:00)
[2019-12-03] MEDS: SUCRALFATE 1 GM/10 ML UDC PO SCH (20:24)
[2019-12-03] MEDS: MAGNESIUM CHLORIDE 64MG DELAYED REL TAB PO SCH (21:42)
[2019-12-03] MEDS: DOCUSATE SODIUM 100 MG CAP PO SCH (21:42)
--- NOTE | 2019-12-03 21:44 | Hospitalist Progress Note ---
Date of Service December 03, 2019 Assessment & Plan (1) Gram positive sepsis: Presented with malaise, myalgias, nausea, vomiting. Afebrile at time of admission and white count was normal. Was not obviously septic, but was tachycardic and tachypneic and therefore, in retrospect, met criteria for severe sepsis per current CMS guidelines. Serum lactate was 1.9. Blood cultures were drawn and subsequently grew MRSA. Subsequently found to have MRSA empyema as well as MRSA septic arthritis of left knee. MRI of thoracic and lumbar spine did not show any apparent discitis, osteomyelitis, epidural abscess. Echocardiogram did not show any valvular vegetations. Started on IV vancomycin when positive blood cultures were reported. ID consulted. Source control of empyema and septic arthritis as discussed below. Repeat blood cultures on 11/18, 11/19, 11/20 were positive. Blood cultures from 11/24 remain negative. Antibiotic therapy IV vancomycin --> daptomycin --> ceftaroline. C-reactive protein 8.87 11/23 --> 2.10 12/02. Long course of parental IV antibiotic therapy anticipated. (2) Hypotension: Recent orthostatic hypotension, started on fludrocortisone prior to admission. Hypotensive at time of admission. Volume depletion considered, but sepsis probably a factor. Received IV fluids. Required pressor support after thoracoscopy and again after knee arthroscopy. Relative adrenal insufficiency, currently receiving hydrocortisone as well as fludrocortisone. May have underlying autonomic neuropathy. Weaned off pressors. Follow hemodynamics, fluids status. (3) Empyema of left pleural space: Imaging at time of admission demonstrated a left pleural effusion. Thoracic Surgery consulted. Pleural fluid from thoracentesis grew MRSA. Thoracoscopy and decortication recommended for complex empyema. Procedure performed by Dr. Miranda on 11/24. Chest tube removed 11/28. (4) Septic arthritis of knee, left: Experienced pain and swelling of left knee. Seen in consultation by Orthopedics. Arthrocentesis on 11/22/2019 demonstrated 78,000 WBCs (88% polys). Cultures subsequently grew MRSA. Receiving IV antibiotics as discussed above. Arthroscopic incision and drainage performed 11/27. Further management per Orthopedics. (5) Urinary tract infection: Urine culture from 11/22/2019 grew E. coli and Klebsiella oxytoca. Received IV antibiotics. (6) Acute respiratory failure with hypoxia: Requiring supplemental oxygen for hypoxia. Mechanical ventilation postop- management per CCM. Wean O2 as tolerated. (7) Left rib fracture: Multiple left rib fractures due to recent fall. Analgesics PRN. Incentive spirometry. (8) Anastomotic ulcer S/P gastric bypass: Status post [place]-en-[place] gastric bypass years ago. History anastomotic ulcer. No gross GI bleeding. Continue PPI; resume sucralfate, misoprostol when able. (9) LFT elevation: At time of admission, total bilirubin 4.6, AST 128, ALT 56, alkaline phosphatase 181. Ultrasound of abdomen on 11/17 demonstrated hepatic steatosis, no significant ductal dilatation, surgical absence of gallbladder. CT performed on the same day showed similar findings. GI consulted. Liver profile 12/01 demonstrated total bilirubin 1.1, direct bilirubin 0.8, AST 57, ALT 39, alkaline phosphatase 217. Sepsis may have been contributing to hepatic dysfunction. Further evaluation/management per GI. (10) Hyponatremia: Serum sodium 132 at time of admission. Possible SIADH from pulmonary disease or SSRI. Serum sodium today = 140 follow (11) Hypokalemia: Serum potassium at time of admission 2.6. Hypokalemia probably multifactorial-inadequate oral intake, GI loss, mineralocorticoid therapy could all be contributing factors. Replace and monitor (12) Hypomagnesemia: Serum magnesium 1.6 Replace and monitor (13) Diabetes mellitus type 2, controlled: Diabetes mellitus type 2, recently diet controlled. Hemoglobin A1c 4.9. Blood sugars fluctuating due to acute illness. Receiving Lantus/NovoLog. (14) Anemia: Hemoglobin 10.5 at time of admission. Hemoglobin fell as low as 7.0. No gross GI bleeding. Serum iron 12, TIBC 70, transferrin 59, ferritin 385, B12 greater than 2000, folate 6.2, SPEP pending. Anemia probably multifactorial-possible blood loss from anastomotic ulcer and sepsis contributing factors. Has received 4 units of packed RBCs thus far. Hemoglobin today = 9.0 (stable) Follow H&H. (15) Alcoholism: History of alcoholism. Denies recent consumption, though she apparently inadvertently ate some Jell-O shots around the time of admission. (16) Malnutrition: Cont. nutritional support (17) DVT prophylaxis: Enoxaparin. SCDs. Ambulate as able. (18) Discharge planning issues: Discharge disposition to be determined. Will likely need transition to rehab facility before returning home. Family Medicine follow-up with Dr. Quintanilla. Subjective Patient sitting up in bed, in no acute distress. Denies any fevers, chills, chest pain, shortness of breath. Says that she has acid reflux. Currently on nasal cannula, extubated on December 01. Speaking in full sentences without difficulty. Review of Systems Review of Systems: All systems reviewed & are unremarkable except as noted in HPI & below Constitutional: no fever and no chills Respiratory: no cough and no dyspnea Cardiovascular: no chest pain and no palpitations Gastrointestinal: + heartburn and + nausea; no vomiting Physical Exam Physical Exam: Constitutional: + ill appearing female sitting up in bed in no acute distress, on 2L of NC ENMT: EOMI, PERRL, normal to inspection, anicteric sclerae Respiratory: Auscultation: + mild rhonchi, no increased resp. effort Cardiovascular: Rate/Rhythm: regular rate and regular rhythm Vessels: no JVD Extremities: normal capillary refill (toes ~ 1 sec) and + edema (bilateral upper extremity; 1+ pretibial); no calf tenderness Gastrointestinal (Abdomen): normal bowel sounds, soft, mildly tender to palpation in epigastric area, nondistended, no guarding Musculoskeletal: Extremities: + extremities abnormal to inspection (L knee without erythema or warmth; SCDs applied to RLE; waffle boots) Skin: no rashes, warm and dry Neuro/Psychiatric: Orientation: alert and oriented x3, no facial asymmetry, speech fluent, moves all extremities spontaneously Results & Data Vital Signs (Past 12 Hours) Vital Signs Temp Pulse Pulse Pulse Resp BP BP 12/03/19 20:24 36.6 C 64 18 91/56 L 12/03/19 19:09 55 L 18 12/03/19 17:20 36.9 C 60 20 89/53 L 12/03/19 16:00 61 12/03/19 15:00 58 L 12/03/19 13:59 55 L 18 12/03/19 12:10 73 18 12/03/19 12:07 66 23 12/03/19 12:06 74 16 73/49 L 12/03/19 12:00 69 24 12/03/19 11:38 63 26 H 83/48 L 12/03/19 11:30 62 23 98/52 L 12/03/19 10:49 60 19 89/47 L 12/03/19 09:49 50 L 11 L 103/62 Pulse Ox 12/03/19 20:24 97 12/03/19 19:09 95 12/03/19 17:20 91 12/03/19 16:00 12/03/19 15:00 12/03/19 13:59 96 12/03/19 12:10 95 12/03/19 12:07 96 12/03/19 12:06 96 12/03/19 12:00 93 12/03/19 11:38 12/03/19 11:30 12/03/19 10:49 93 12/03/19 09:49 95 Laboratory Results 12/03/19 12/03/19 12/03/19 Range/Units 16:13 15:17 11:48 WBC (4.8-10.8) K/uL RBC (4.2-5.4) M/uL Hgb (12.0-16.0) g/dL Hct (37-47) % MCV (80-100) fL MCH (25-34) pg MCHC (32-36) g/dL RDW Std Deviation (36.4-46.3) fL RDW Coeff of Taye (11.5-14.5) % Plt Count (130-400) K/uL MPV (7.4-10.4) fL Immature Gran % (Auto) % Neut % (Auto) % Lymph % (Auto) % [place] % (Auto) % Eos % (Auto) % Baso % (Auto) % Immature Gran # (Auto) (0.00-0.02) K/uL Neut # (Auto) (1.4-6.5) K/uL Lymph # (Auto) (1.2-3.4) K/uL [place] # (Auto) (0.11-0.59) K/uL Eos # (Auto) (0-0.5) K/uL Baso # (Auto) (0-0.2) K/uL Sodium 140 (136-145) mmol/L Potassium 3.0 L D (3.5-5.1) mmol/L Chloride 105 (98-107) mmol/L Carbon Dioxide 31 (21-32) mmol/L Anion Gap 4.0 (3-11) BUN 18 (7-18) mg/dl Creatinine 0.98 (0.6-1.2) mg/dl Est Cr Clr Drug Dosing 61.8 ml/min Est GFR ( Amer) 71.7 Est GFR (Non-Af Amer) 61.8 BUN/Creatinine Ratio 17.9 (10-20) Glucose 137 H (70-99) mg/dl POC Glucose 131 H 217 H (70-99) mg/dl Calcium 7.4 L (8.5-10.1) mg/dl Phosphorus 2.3 L (2.5-4.9) mg/dl Magnesium 2.0 (1.8-2.4) mg/dl 12/03/19 12/03/19 12/03/19 Range/Units 07:50 06:08 04:19 WBC 10.59 (4.8-10.8) K/uL RBC 2.91 L (4.2-5.4) M/uL Hgb 9.0 L (12.0-16.0) g/dL Hct 28.4 L (37-47) % MCV 97.6 (80-100) fL MCH 30.9 (25-34) pg MCHC 31.7 L (32-36) g/dL RDW Std Deviation 65.0 H (36.4-46.3) fL RDW Coeff of Taye 18.3 H (11.5-14.5) % Plt Count 145 (130-400) K/uL MPV 10.0 (7.4-10.4) fL Immature Gran % (Auto) 0.4 % Neut % (Auto) 91.2 % Lymph % (Auto) 5.4 % [place] % (Auto) 2.4 % Eos % (Auto) 0.5 % Baso % (Auto) 0.1 % Immature Gran # (Auto) 0.04 H (0.00-0.02) K/uL Neut # (Auto) 9.67 H (1.4-6.5) K/uL Lymph # (Auto) 0.57 L (1.2-3.4) K/uL [place] # (Auto) 0.25 (0.11-0.59) K/uL Eos # (Auto) 0.05 (0-0.5) K/uL Baso # (Auto) 0.01 (0-0.2) K/uL Sodium (136-145) mmol/L Potassium (3.5-5.1) mmol/L Chloride (98-107) mmol/L Carbon Dioxide (21-32) mmol/L Anion Gap (3-11) BUN (7-18) mg/dl Creatinine (0.6-1.2) mg/dl Est Cr Clr Drug Dosing ml/min Est GFR ( Amer) Est GFR (Non-Af Amer) BUN/Creatinine Ratio (10-20) Glucose (70-99) mg/dl POC Glucose 127 H 134 H (70-99) mg/dl Calcium (8.5-10.1) mg/dl Phosphorus (2.5-4.9) mg/dl Magnesium (1.8-2.4) mg/dl 12/03/19 12/02/19 Range/Units 04:19 23:54 WBC (4.8-10.8) K/uL RBC (4.2-5.4) M/uL Hgb (12.0-16.0) g/dL Hct (37-47) % MCV (80-100) fL MCH (25-34) pg MCHC (32-36) g/dL RDW Std Deviation (36.4-46.3) fL RDW Coeff of Taye (11.5-14.5) % Plt Count (130-400) K/uL MPV (7.4-10.4) fL Immature Gran % (Auto) % Neut % (Auto) % Lymph % (Auto) % [place] % (Auto) % Eos % (Auto) % Baso % (Auto) % Immature Gran # (Auto) (0.00-0.02) K/uL Neut # (Auto) (1.4-6.5) K/uL Lymph # (Auto) (1.2-3.4) K/uL [place] # (Auto) (0.11-0.59) K/uL Eos # (Auto) (0-0.5) K/uL Baso # (Auto) (0-0.2) K/uL Sodium 141 (136-145) mmol/L Potassium 3.8 D (3.5-5.1) mmol/L Chloride 108 H (98-107) mmol/L Carbon Dioxide 30 (21-32) mmol/L Anion Gap 3.0 (3-11) BUN 15 (7-18) mg/dl Creatinine 0.87 (0.6-1.2) mg/dl Est Cr Clr Drug Dosing 69.6 ml/min Est GFR ( Amer) 82.8 Est GFR (Non-Af Amer) 71.4 BUN/Creatinine Ratio 16.9 (10-20) Glucose 127 H (70-99) mg/dl POC Glucose 133 H (70-99) mg/dl Calcium 7.2 L (8.5-10.1) mg/dl Phosphorus 3.0 (2.5-4.9) mg/dl Magnesium 1.9 (1.8-2.4) mg/dl Medications Administered Current Inpatient Medications Acetaminophen (Tylenol) 650 mg PO Q4H PRN PRN Reason: Pain Stop: 01/01/20 16:11 Last Admin: 12/02/19 23:33 Dose: 650 mg Documented by: Albuterol (Duoneb) 3 ml NEB Q6R [facility] Stop: 12/28/19 12:59 Last Admin: 12/03/19 19:06 Dose: 3 ml Documented by: Bisacodyl (Dulcolax) 10 mg HI DAILY PRN PRN Reason: Constipation Stop: 12/27/19 17:01 Cyanocobalamin (Vitamin B-12) 500 mcg PO DAILY [facility] Stop: 12/17/19 08:59 Last Admin: 12/03/19 11:39 Dose: 500 mcg Documented by: Dextrose (Dextrose 50%) 25 - 50 ml IV UD PRN; Protocol PRN Reason: Hypoglycemia Protocol Stop: 12/17/19 17:30 Last Admin: 11/28/19 23:45 Dose: 25 ml Documented by: Docusate Sodium (Colace) 100 mg PO BID [facility] Stop: 12/24/19 20:59 Last Admin: 12/03/19 21:42 Dose: 100 mg Documented by: Enoxaparin Sodium (Lovenox) 40 mg SQ QAM [facility] Stop: 12/25/19 09:29 Last Admin: 12/03/19 09:48 Dose: 40 mg Documented by: Fludrocortisone Acetate (Florinef) 0.1 mg PO QAM [facility] Stop: 12/25/19 08:59 Last Admin: 12/03/19 11:39 Dose: 0.1 mg Documented by: Folic Acid (Folvite) 1 mg PO DAILY [facility] Stop: 12/17/19 08:59 Last Admin: 12/03/19 11:39 Dose: 1 mg Documented by: Gabapentin (Neurontin) 300 mg PO TID [facility] Stop: 12/17/19 08:59 Last Admin: 11/28/19 08:22 Dose: Not Given Documented by: Glucagon (Glucagen) 1 mg SQ UD PRN; Protocol PRN Reason: Hypoglycemia Protocol Stop: 12/17/19 17:30 Glucose (Dex4 Glucose) 4 - 8 tabs PO UD PRN; Protocol PRN Reason: Hypoglycemia Protocol Stop: 12/17/19 17:30 Glucose (Glucose 40%) 15 - 30 gm PO UD PRN; Protocol PRN Reason: Hypoglycemia Protocol Stop: 12/17/19 17:30 Promethazine HCl 12.5 mg/ (Sodium Chloride) 50.5 mls @ 202 mls/hr IV Q6H PRN PRN Reason: Nausea And Vomiting Stop: 12/17/19 06:21 Last Infusion: 11/19/19 12:50 Dose: Infused Documented by: Furosemide 40 mg/ Syringe 4 mls @ 4 mls/min IV Q12H [facility] Stop: 01/01/20 17:59 Last Admin: 12/03/19 18:47 Dose: 4 mls/min Documented by: Ceftaroline Fosamil 600 mg/ (Sodium Chloride) 50 mls @ 50 mls/hr IV Q8H [facility]; Protocol Stop: 12/09/19 08:59 Last Infusion: 12/03/19 18:00 Dose: Infused Documented by: Potassium Phosphate 30 mmol/ (Sodium Chloride) 510 mls @ 88 mls/hr IV ONE ONE Stop: 12/04/19 01:47 Last Admin: 12/03/19 20:24 Dose: 88 mls/hr Documented by: Insulin Aspart (Novolog Flexpen) 0 units SC ACHS [facility] Stop: 01/02/20 11:29 Last Admin: 12/03/19 20:34 Dose: Not Given Documented by: Levothyroxine Sodium (Synthroid) 25 mcg PO DAILYBB [facility] Stop: 12/17/19 06:29 Last Admin: 12/03/19 09:48 Dose: 25 mcg Documented by: Linezolid (Zyvox) 600 mg PO BID [facility] Stop: 12/16/19 08:59 Magnesium Chloride (Slow-Mag) 64 mg PO BID [facility] Stop: 12/20/19 09:14 Last Admin: 12/03/19 21:42 Dose: 64 mg Documented by: Metoclopramide HCl (Reglan) 10 mg IV Q6H PRN PRN Reason: Nausea And Vomiting Stop: 12/27/19 17:01 Last Admin: 12/03/19 07:20 Dose: 10 mg Documented by: Metoprolol Succinate (Toprol Xl) 12.5 mg PO BID [facility] Stop: 01/02/20 10:44 Last Admin: 12/03/19 20:34 Dose: Not Given Documented by: Miscellaneous (Carbohydrates For Hypoglycemia) 15 - 30 gm PO UD PRN PRN Reason: Hypoglycemia Protocol Stop: 12/17/19 17:30 Last Admin: 11/19/19 17:29 Dose: 30 gm Documented by: Miscellaneous Information (Consult Glycemic Management Pharmacy) 1 ea N/A UD PRN PRN Reason: Consult Stop: 12/28/19 13:20 Misoprostol (Cytotec) 100 mcg PO QID [facility] Stop: 12/17/19 08:59 Last Admin: 12/03/19 20:34 Dose: Not Given Documented by: Multivitamins (Multivitamin Tab) 1 tab PO QAM [facility] Stop: 12/28/19 08:59 Last Admin: 11/28/19 08:21 Dose: Not Given Documented by: Naloxone HCl (Narcan) 0.1 mg IV Q5M PRN PRN Reason: Oversedation/Resp Depression Stop: 12/27/19 17:01 Nitroglycerin (Nitrostat) 0.4 mg SL UD PRN PRN Reason: Chest Pain Stop: 12/17/19 06:21 Ondansetron HCl (Zofran) 4 mg IV Q6H PRN PRN Reason: Nausea And Vomiting Stop: 12/27/19 17:01 Last Admin: 12/03/19 05:14 Dose: 4 mg Documented by: Pantoprazole Sodium (Protonix) 40 mg PO BID [facility] Stop: 01/02/20 08:59 Last Admin: 12/03/19 20:35 Dose: 40 mg Documented by: Potassium Chloride (Klor-Con M20) 40 meq PO BID [facility] Stop: 01/01/20 20:59 Last Admin: 12/03/19 20:37 Dose: 40 meq Documented by: Sucralfate (Carafate) 1 gm PO QID [facility] Stop: 01/02/20 19:59 Last Admin: 12/03/19 20:24 Dose: 1 gm Documented by: Thiamine HCl (Vitamin B-1) 100 mg PO QAM [facility] Stop: 12/17/19 08:59 Last Admin: 11/28/19 08:22 Dose: Not Given Documented by: (1) Left rib fracture Encounter type: initial encounter Fracture type: closed Rib fracture type: multiple ribs Qualified Code(s): S22.42XA - Multiple fractures of ribs, left side, initial encounter for closed fracture
[2019-12-04] MEDS: ALBUT/IPRATROP 3MG/0.5MG NEB 3 ML VIAL NEB SCH ×4 (00:31→19:22)
[2019-12-04 06:08] LABS: Hematocrit (blood only) 26.6 % (37-47); Hemoglobin 8.6 g/dL (12.0-16.0); Mean Corpuscular Hemoglobin 32.1 pg (25-34); Mean Corpuscular Hgb Conc 32.3 g/dL (32-36); Mean Corpuscular Volume 99.3 fL (80-100); Mean Platelet Volume 9.8 fL (7.4-10.4); Platelet Count 144 K/uL (130-400); RDW Coefficient of Variation 18.3 % (11.5-14.5); RDW Standard Deviation 66.4 fL (36.4-46.3); Red Blood Count 2.68 M/uL (4.2-5.4); White Blood Count 11.06 K/uL (4.8-10.8)
[2019-12-04] MEDS: FUROSEMIDE 40 MG in SYRINGE 0 ML IV SCH ×2 (06:43→17:55)
[2019-12-04] MEDS: SODIUM CHLORIDE 0.9% IV SCH ×3 (06:43→23:22)
[2019-12-04] MEDS: CEFTAROLINE FOSAMIL ACETATE IV SCH ×3 (06:43→23:22)
[2019-12-04] MEDS: LEVOTHYROXINE SODIUM 25 MCG TABLET PO SCH (06:44)
[2019-12-04 07:03] LABS: BUN Creatinine Ratio 17.2 (10-20); Calcium 7.4 mg/dl (8.5-10.1); Creatinine Clr Calc Pharmacy 71.4 ml/min; Est GFR (African American) 86.3; Est GFR (Non-African American) 74.5; Magnesium 1.9 mg/dl (1.8-2.4); Phosphorus 3.2 mg/dl (2.5-4.9); Potassium 3.5 mmol/L (3.5-5.1)
[2019-12-04] MEDS ORDERED: POTASSIUM CHLORIDE 20 MEQ TABCR PO STA (07:59)
--- NOTE | 2019-12-04 08:02 | Hospitalist Progress Note ---
Date of Service December 04, 2019 Assessment & Plan (1) Gram positive sepsis: Presented with malaise, myalgias, nausea, vomiting. Afebrile at time of admission and white count was normal. Was not obviously septic, but was tachycardic and tachypneic and therefore, in retrospect, met criteria for severe sepsis per current CMS guidelines. Serum lactate was 1.9. Blood cultures were drawn and subsequently grew MRSA. Subsequently found to have MRSA empyema as well as MRSA septic arthritis of left knee. MRI of thoracic and lumbar spine did not show any apparent discitis, osteomyelitis, epidural abscess. Echocardiogram did not show any valvular vegetations. Started on IV vancomycin when positive blood cultures were reported. ID consulted. Source control of empyema and septic arthritis as discussed below. Repeat blood cultures on 11/18, 11/19, 11/20 were positive. Blood cultures from 11/24 remain negative. Antibiotic therapy IV vancomycin --> daptomycin --> ceftaroline. C-reactive protein 8.87 11/23 --> 2.10 12/02. Long course of parental IV antibiotic therapy anticipated. (2) Hypotension: Recent orthostatic hypotension, started on fludrocortisone prior to admission. Hypotensive at time of admission. Volume depletion considered, but sepsis probably a factor. Received IV fluids. Required pressor support after thoracoscopy and again after knee arthroscopy. Relative adrenal insufficiency, currently receiving hydrocortisone as well as fludrocortisone. May have underlying autonomic neuropathy. Weaned off pressors. Follow hemodynamics, fluids status. (3) Empyema of left pleural space: Imaging at time of admission demonstrated a left pleural effusion. Thoracic Surgery consulted. Pleural fluid from thoracentesis grew MRSA. Thoracoscopy and decortication recommended for complex empyema. Procedure performed by Dr. Miranda on 11/24. Chest tube removed 11/28. (4) Septic arthritis of knee, left: Experienced pain and swelling of left knee. Seen in consultation by Orthopedics. Arthrocentesis on 11/22/2019 demonstrated 78,000 WBCs (88% polys). Cultures subsequently grew MRSA. Receiving IV antibiotics as discussed above. Arthroscopic incision and drainage performed 11/27. Further management per Orthopedics. (5) Urinary tract infection: Urine culture from 11/22/2019 grew E. coli and Klebsiella oxytoca. Received IV antibiotics. (6) Acute respiratory failure with hypoxia: Requiring supplemental oxygen for hypoxia. Wean O2 as tolerated. (7) Left rib fracture: Multiple left rib fractures due to recent fall. Analgesics PRN. Incentive spirometry. (8) Anastomotic ulcer S/P gastric bypass: Status post [place] gastric bypass years ago. History anastomotic ulcer. No gross GI bleeding. Continue PPI; resume sucralfate, misoprostol when able. (9) LFT elevation: At time of admission, total bilirubin 4.6, AST 128, ALT 56, alkaline phosphatase 181. Ultrasound of abdomen on 11/17 demonstrated hepatic steatosis, no significant ductal dilatation, surgical absence of gallbladder. CT performed on the same day showed similar findings. GI consulted. Liver profile 12/01 demonstrated total bilirubin 1.1, direct bilirubin 0.8, AST 57, ALT 39, alkaline phosphatase 217. Sepsis may have been contributing to hepatic dysfunction. Further evaluation/management per GI. (10) Hyponatremia: Serum sodium 132 at time of admission. Possible SIADH from pulmonary disease or SSRI. Serum sodium today = 142 (been stable) follow (11) Hypokalemia: Serum potassium at time of admission 2.6. Hypokalemia probably multifactorial-inadequate oral intake, GI loss, mineralocorticoid therapy could all be contributing factors. Replace and monitor (12) Hypomagnesemia: Serum magnesium 1.6 Replace and monitor (13) Diabetes mellitus type 2, controlled: Diabetes mellitus type 2, recently diet controlled. Hemoglobin A1c 4.9. Blood sugars fluctuating due to acute illness. Receiving Lantus/NovoLog. (14) Anemia: Hemoglobin 10.5 at time of admission. Hemoglobin fell as low as 7.0. No gross GI bleeding. Serum iron 12, TIBC 70, transferrin 59, ferritin 385, B12 greater than 2000, folate 6.2, SPEP pending. Anemia probably multifactorial-possible blood loss from anastomotic ulcer and sepsis contributing factors. Has received 4 units of packed RBCs thus far. Hemoglobin today = 8.6 (stable) Follow H&H. (15) Alcoholism: History of alcoholism. Denies recent consumption, though she apparently inadvertently ate some Jell-O shots around the time of admission. (16) Malnutrition: Cont. nutritional support (17) DVT prophylaxis: Enoxaparin. SCDs. Ambulate as able. (18) Discharge planning issues: Discharge disposition to be determined. Will likely need transition to rehab facility before returning home. Family Medicine follow-up with Dr. Quintanilla. Subjective Pt is lying in bed in NAD but complains of headache. says that she gets GOODWIN several times a week. Often she does not take anything for that and just tries to fall asleep. Pt took tylenol but had only small relief. Nursing staff, helping to keep the room dark and quiet, give ice packs/ heat packs as needed. Will give another dose of tylenol and add advil. Pt denies fever, chills, chest pain, shortness of breath, abd. pain, nausea or vomiting. Review of Systems Review of Systems: All systems reviewed & are unremarkable except as noted in HPI & below Constitutional: no fever and no chills Ear, Nose, Mouth, Throat: + headache Respiratory: no cough and no dyspnea Cardiovascular: no chest pain, no palpitations and no edema Gastrointestinal: no abdominal pain, no nausea and no vomiting Physical Exam Physical Exam: Constitutional: + ill appearing female lying in bed in no acute distress, on 2L of NC ENMT: EOMI, PERRL, normal to inspection, anicteric sclerae Respiratory: Auscultation: + mild rhonchi Cardiovascular: Rate/Rhythm: regular rate and regular rhythm Vessels: no JVD Extremities: normal capillary refill (toes ~ 1 sec) and + edema (bilateral upper extremity; 1+ pretibial); no calf tenderness Gastrointestinal (Abdomen): normal bowel sounds, soft, nontender, nondistended, no guarding Musculoskeletal: Extremities: + extremities abnormal to inspection (L knee without erythema or warmth; SCDs applied to RLE; waffle boots) Skin: no rashes, warm and dry Neuro/Psychiatric: Orientation: alert and oriented x3, no facial asymmetry, speech fluent, moves all extremities spontaneously Results & Data Vital Signs (Past 12 Hours) Vital Signs Temp Pulse Pulse Resp BP Pulse Ox 12/04/19 07:29 36.2 C L 67 20 99/62 L 92 12/04/19 07:20 66 16 92 12/04/19 02:56 36.3 C L 68 16 96/59 L 93 12/04/19 00:32 65 18 91 12/03/19 23:12 36.7 C 64 18 93/52 L 92 12/03/19 20:24 36.6 C 64 18 91/56 L 97 Laboratory Results 12/04/19 12/04/19 12/04/19 Range/Units 07:38 05:41 05:41 WBC 11.06 H (4.8-10.8) K/uL RBC 2.68 L (4.2-5.4) M/uL Hgb 8.6 L (12.0-16.0) g/dL Hct 26.6 L (37-47) % MCV 99.3 (80-100) fL MCH 32.1 (25-34) pg MCHC 32.3 (32-36) g/dL RDW Std Deviation 66.4 H (36.4-46.3) fL RDW Coeff of Taye 18.3 H (11.5-14.5) % Plt Count 144 (130-400) K/uL MPV 9.8 (7.4-10.4) fL Sodium 142 (136-145) mmol/L Potassium 3.5 D (3.5-5.1) mmol/L Chloride 107 (98-107) mmol/L Carbon Dioxide 31 (21-32) mmol/L Anion Gap 4.0 (3-11) BUN 15 (7-18) mg/dl Creatinine 0.84 (0.6-1.2) mg/dl Est Cr Clr Drug Dosing 71.4 ml/min Est GFR ( Amer) 86.3 Est GFR (Non-Af Amer) 74.5 BUN/Creatinine Ratio 17.2 (10-20) Glucose 92 (70-99) mg/dl POC Glucose 100 H (70-99) mg/dl Calcium 7.4 L (8.5-10.1) mg/dl Phosphorus 3.2 (2.5-4.9) mg/dl Magnesium 1.9 (1.8-2.4) mg/dl 12/03/19 12/03/19 12/03/19 Range/Units 20:34 16:13 15:17 WBC (4.8-10.8) K/uL RBC (4.2-5.4) M/uL Hgb (12.0-16.0) g/dL Hct (37-47) % MCV (80-100) fL MCH (25-34) pg MCHC (32-36) g/dL RDW Std Deviation (36.4-46.3) fL RDW Coeff of Taye (11.5-14.5) % Plt Count (130-400) K/uL MPV (7.4-10.4) fL Sodium 140 (136-145) mmol/L Potassium 3.0 L D (3.5-5.1) mmol/L Chloride 105 (98-107) mmol/L Carbon Dioxide 31 (21-32) mmol/L Anion Gap 4.0 (3-11) BUN 18 (7-18) mg/dl Creatinine 0.98 (0.6-1.2) mg/dl Est Cr Clr Drug Dosing 61.8 ml/min Est GFR ( Amer) 71.7 Est GFR (Non-Af Amer) 61.8 BUN/Creatinine Ratio 17.9 (10-20) Glucose 137 H (70-99) mg/dl POC Glucose 135 H 131 H (70-99) mg/dl Calcium 7.4 L (8.5-10.1) mg/dl Phosphorus 2.3 L (2.5-4.9) mg/dl Magnesium 2.0 (1.8-2.4) mg/dl 12/03/19 12/03/19 Range/Units 11:48 07:50 WBC (4.8-10.8) K/uL RBC (4.2-5.4) M/uL Hgb (12.0-16.0) g/dL Hct (37-47) % MCV (80-100) fL MCH (25-34) pg MCHC (32-36) g/dL RDW Std Deviation (36.4-46.3) fL RDW Coeff of Taye (11.5-14.5) % Plt Count (130-400) K/uL MPV (7.4-10.4) fL Sodium (136-145) mmol/L Potassium (3.5-5.1) mmol/L Chloride (98-107) mmol/L Carbon Dioxide (21-32) mmol/L Anion Gap (3-11) BUN (7-18) mg/dl Creatinine (0.6-1.2) mg/dl Est Cr Clr Drug Dosing ml/min Est GFR ( Amer) Est GFR (Non-Af Amer) BUN/Creatinine Ratio (10-20) Glucose (70-99) mg/dl POC Glucose 217 H 127 H (70-99) mg/dl Calcium (8.5-10.1) mg/dl Phosphorus (2.5-4.9) mg/dl Magnesium (1.8-2.4) mg/dl Medications Administered Current Inpatient Medications Acetaminophen (Tylenol) 650 mg PO Q4H PRN PRN Reason: Pain Stop: 01/01/20 16:11 Last Admin: 12/02/19 23:33 Dose: 650 mg Documented by: Albuterol (Duoneb) 3 ml NEB Q6R [facility] Stop: 12/28/19 12:59 Last Admin: 12/04/19 07:19 Dose: 3 ml Documented by: Bisacodyl (Dulcolax) 10 mg ID DAILY PRN PRN Reason: Constipation Stop: 12/27/19 17:01 Cyanocobalamin (Vitamin B-12) 500 mcg PO DAILY [facility] Stop: 12/17/19 08:59 Last Admin: 12/03/19 11:39 Dose: 500 mcg Documented by: Dextrose (Dextrose 50%) 25 - 50 ml IV UD PRN; Protocol PRN Reason: Hypoglycemia Protocol Stop: 12/17/19 17:30 Last Admin: 11/28/19 23:45 Dose: 25 ml Documented by: Docusate Sodium (Colace) 100 mg PO BID [facility] Stop: 12/24/19 20:59 Last Admin: 12/03/19 21:42 Dose: 100 mg Documented by: Enoxaparin Sodium (Lovenox) 40 mg SQ QAM [facility] Stop: 12/25/19 09:29 Last Admin: 12/03/19 09:48 Dose: 40 mg Documented by: Fludrocortisone Acetate (Florinef) 0.1 mg PO QAM [facility] Stop: 12/25/19 08:59 Last Admin: 12/03/19 11:39 Dose: 0.1 mg Documented by: Folic Acid (Folvite) 1 mg PO DAILY [facility] Stop: 12/17/19 08:59 Last Admin: 12/03/19 11:39 Dose: 1 mg Documented by: Gabapentin (Neurontin) 300 mg PO TID [facility] Stop: 12/17/19 08:59 Last Admin: 11/28/19 08:22 Dose: Not Given Documented by: Glucagon (Glucagen) 1 mg SQ UD PRN; Protocol PRN Reason: Hypoglycemia Protocol Stop: 12/17/19 17:30 Glucose (Dex4 Glucose) 4 - 8 tabs PO UD PRN; Protocol PRN Reason: Hypoglycemia Protocol Stop: 12/17/19 17:30 Glucose (Glucose 40%) 15 - 30 gm PO UD PRN; Protocol PRN Reason: Hypoglycemia Protocol Stop: 12/17/19 17:30 Promethazine HCl 12.5 mg/ (Sodium Chloride) 50.5 mls @ 202 mls/hr IV Q6H PRN PRN Reason: Nausea And Vomiting Stop: 12/17/19 06:21 Last Infusion: 11/19/19 12:50 Dose: Infused Documented by: Furosemide 40 mg/ Syringe 4 mls @ 4 mls/min IV Q12H [facility] Stop: 01/01/20 17:59 Last Admin: 12/04/19 06:43 Dose: 4 mls/min Documented by: Ceftaroline Fosamil 600 mg/ (Sodium Chloride) 50 mls @ 50 mls/hr IV Q8H [facility]; Protocol Stop: 12/09/19 08:59 Last Admin: 12/04/19 06:43 Dose: 50 mls/hr Documented by: Insulin Aspart (Novolog Flexpen) 0 units SC ACHS [facility] Stop: 01/02/20 11:29 Last Admin: 12/03/19 20:34 Dose: Not Given Documented by: [facility]: 12/17/19 06:29 Last Admin: 12/04/19 06:44 Dose: 25 mcg Documented by: Linezolid (Zyvox) 600 mg PO BID [facility] Stop: 12/16/19 08:59 Magnesium Chloride (Slow-Mag) 64 mg PO BID [facility] Stop: 12/20/19 09:14 Last Admin: 12/03/19 21:42 Dose: 64 mg Documented by: Metoclopramide HCl (Reglan) 10 mg IV Q6H PRN PRN Reason: Nausea And Vomiting Stop: 12/27/19 17:01 Last Admin: 12/03/19 07:20 Dose: 10 mg Documented by: Metoprolol Succinate (Toprol Xl) 12.5 mg PO BID [facility] Stop: 01/02/20 10:44 Last Admin: 12/03/19 20:34 Dose: Not Given Documented by: Miscellaneous (Carbohydrates For Hypoglycemia) 15 - 30 gm PO UD PRN PRN Reason: Hypoglycemia Protocol Stop: 12/17/19 17:30 Last Admin: 11/19/19 17:29 Dose: 30 gm Documented by: Miscellaneous Information (Consult Glycemic Management Pharmacy) 1 ea N/A UD PRN PRN Reason: Consult Stop: 12/28/19 13:20 Misoprostol (Cytotec) 100 mcg PO QID [facility] Stop: 12/17/19 08:59 Last Admin: 12/03/19 20:34 Dose: Not Given Documented by: [facility]ivit[facility] ([facility]itamin Tab) [facility] [place]: 12/28/19 08:59 Last Admin: 11/28/19 08:21 Dose: Not Given Documented by: Naloxone HCl (Narcan) 0.1 mg IV Q5M PRN PRN Reason: Oversedation/Resp Depression Stop: 12/27/19 17:01 Nitroglycerin (Nitrostat) 0.4 mg SL UD PRN PRN Reason: Chest Pain Stop: 12/17/19 06:21 Ondansetron HCl (Zofran) 4 mg IV Q6H PRN PRN Reason: Nausea And Vomiting Stop: 12/27/19 17:01 Last Admin: 12/03/19 05:14 Dose: 4 mg Documented by: Pantoprazole Sodium (Protonix) 40 mg PO BID [facility] Stop: 01/02/20 08:59 Last Admin: 12/03/19 20:35 Dose: 40 mg Documented by: Potassium Chloride (Klor-Con M20) 40 meq PO BID [facility] Stop: 01/01/20 20:59 Last Admin: 12/03/19 20:37 Dose: 40 meq Documented by: Sucralfate (Carafate) 1 gm PO QID [facility] Stop: 01/02/20 19:59 Last Admin: 12/03/19 20:24 Dose: 1 gm Documented by: Thiamine HCl (Vitamin B-1) 100 mg PO QAM [facility] Stop: 12/17/19 08:59 Last Admin: 11/28/19 08:22 Dose: Not Given Documented by: (1) Left rib fracture Encounter type: initial encounter Fracture type: closed Rib fracture type: multiple ribs Qualified Code(s): S22.42XA - Multiple fractures of ribs, left side, initial encounter for closed fracture
[2019-12-04] MEDS: SUCRALFATE 1 GM/10 ML UDC PO SCH ×4 (08:38→21:37)
[2019-12-04] MEDS: CYANOCOBALAMIN 500 MCG TABLET (VITAMIN B-12) PO SCH (08:39)
[2019-12-04] MEDS: FOLIC ACID 1 MG TAB PO SCH (08:39)
[2019-12-04] MEDS: FLUDROCORTISONE ACETATE 0.1 MG TAB PO SCH (08:40)
[2019-12-04] MEDS: POTASSIUM CHLORIDE 20 MEQ TABCR PO SCH ×2 (08:41→21:38)
[2019-12-04] MEDS: PANTOprazole 40 MG TAB PO SCH ×2 (08:41→21:38)
[2019-12-04] MEDS: MAGNESIUM CHLORIDE 64MG DELAYED REL TAB PO SCH ×2 (08:42→21:38)
[2019-12-04] MEDS: DOCUSATE SODIUM 100 MG CAP PO SCH ×2 (08:42→21:39)
[2019-12-04] MEDS: ENOXAPARIN INJ 40 MG/0.4 ML SYR SQ SCH (08:42)
[2019-12-04] MEDS: INSULIN ASPART 100 UNITS/ML 3 ML PEN SC SCH ×4 (08:44→21:39)
[2019-12-04] MEDS: METOPROLOL SUCC 25MG EXT REL TAB PO SCH ×2 (09:07→21:39)
[2019-12-04] MEDS: miSOPROStoL 100 MCG TAB PO SCH ×4 (11:57→21:37)
[2019-12-04] MEDS: MULTIVITAMIN TAB PO SCH (11:58)
[2019-12-04] MEDS: THIAMINE HCL 100 MG TAB PO SCH (11:59)
[2019-12-04] MEDS: ACETAMINOPHEN 325 MG TAB PO PRN ×3 (12:09→21:42)
--- NOTE | 2019-12-04 12:26 | Cardiology Progress Note ---
Date of Service December 04, 2019 Assessment & Plan (1) Cardiomyopathy: (2) Malnutrition: (3) Acute respiratory failure with hypoxia: (4) Empyema of left pleural space: (5) Septic shock: (6) Septic arthritis of knee, left: (7) LFT elevation: (8) Hypokalemia: (9) Gram positive sepsis: Her EKG changes do correspond with significant drop of her LV systolic function. 2D echocardiogram performed earlier this admission showed normal LV systolic function without regional wall motion abnormality, EF 65 to 70%. Repeat echocardiogram now shows an apical ballooning pattern along significantly reduced LV systolic function EF approximately 30 to 35%. 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 Given her lack of symptoms I do not believe an ischemic work-up is warranted at this point. We will treat her supportively with evidence-based beta-cynthia and ARB as her vital signs allow. BP has been running on the low side and metoprolol has been held as per parameters, I agree with this and would not force the issue at this point. We will try to provide once BP allows. No further cardiac testing or intervention is necessary. Okay to discharge from telemetry or to home from a cardiac standpoint. Obviously, will defer further treatment of her multiple other medical issues to the primary and specialty teams. Continue to monitor on telemetry while admitted. Subjective Patient seen and examined, states that she is feeling a little fatigued today but otherwise denies any chest pain, shortness of breath, palpitations, lighth eadedness, dizziness or syncope. Blood pressures been running a little on the low side and her metoprolol has been held per parameters. Telemetry reviewed: Normal sinus rhythm without arrhythmia or significant ectopy. Review of Systems Review of Systems: All systems reviewed & are unremarkable except as noted in HPI & below Physical Exam Physical Exam: General: Awake, alert and oriented x 3. No acute distress. HEENT: Normocephalic, atraumatic. Pupils equal, round and reactive to light and accommodation. Extraocular muscles are intact. Anicteric sclera. Moist mucous membranes. Neck: No JVD. No bruit. Cardiovascular: Regular. Positive S-4. Normal S-1 and S-2. No S-3. No murmurs or rubs. Pulmonary: Clear to auscultation B/L. No rales, rhonchi or wheezing Abdomen: Bowel sounds x 4, soft. No rebound, guarding or tenderness. No organomegaly. Extremities: No clubbing, cyanosis or edema. +2 pedal pulses bilaterally. Skin: Warm and dry. Results & Data Vital Signs (Past 12 Hours) Vital Signs Temp Pulse Pulse Pulse Resp BP BP 12/04/19 10:40 75 18 84/48 L 12/04/19 08:00 61 12/04/19 07:29 36.2 C L 67 20 99/62 L 12/04/19 07:20 66 16 12/04/19 02:56 36.3 C L 68 16 96/59 L 12/04/19 00:32 65 18 Pulse Ox 12/04/19 10:40 97 12/04/19 08:00 12/04/19 07:29 92 12/04/19 07:20 92 12/04/19 02:56 93 12/04/19 00:32 91
[2019-12-04] MEDS ORDERED: IBUPROFEN 200 MG TAB PO ONE (17:30)
--- NOTE | 2019-12-04 19:33 | Progress Note ---
DATE: 12/04/2019 The patient was seen today on 12/04/2019. She is pouring out copious amounts of fluid from her chest tube sites. I have asked the nurses to place an ostomy bag on this should this continue. Otherwise, I think the patient is improving. She is only on 2 liters at 95% saturations. We will check a chest x-ray tomorrow. I am pleased by her improvement.
[2019-12-05] MEDS: ALBUT/IPRATROP 3MG/0.5MG NEB 3 ML VIAL NEB SCH ×4 (00:24→19:15)
[2019-12-05] MEDS: FUROSEMIDE 40 MG in SYRINGE 0 ML IV SCH ×2 (06:33→17:57)
[2019-12-05] MEDS: SODIUM CHLORIDE 0.9% IV SCH ×3 (06:34→22:34)
[2019-12-05] MEDS: CEFTAROLINE FOSAMIL ACETATE IV SCH ×3 (06:34→22:34)
[2019-12-05] MEDS: LEVOTHYROXINE SODIUM 25 MCG TABLET PO SCH (06:34)
[2019-12-05 07:29] LABS: Hematocrit (blood only) 30.5 % (37-47); Hemoglobin 9.7 g/dL (12.0-16.0); Mean Corpuscular Hemoglobin 31.3 pg (25-34); Mean Corpuscular Hgb Conc 31.8 g/dL (32-36); Mean Corpuscular Volume 98.4 fL (80-100); Mean Platelet Volume 9.7 fL (7.4-10.4); Platelet Count 164 K/uL (130-400); RDW Coefficient of Variation 17.9 % (11.5-14.5); RDW Standard Deviation 64.3 fL (36.4-46.3); White Blood Count 10.51 K/uL (4.8-10.8)
[2019-12-05] MEDS: SUCRALFATE 1 GM/10 ML UDC PO SCH ×4 (08:37→22:34)
[2019-12-05] MEDS: MULTIVITAMIN TAB PO SCH (08:38)
[2019-12-05] MEDS: PANTOprazole 40 MG TAB PO SCH ×3 (08:38→22:59)
[2019-12-05] MEDS: miSOPROStoL 100 MCG TAB PO SCH ×5 (08:38→22:48)
[2019-12-05] MEDS: POTASSIUM CHLORIDE 20 MEQ TABCR PO SCH ×2 (08:39→22:36)
[2019-12-05] MEDS: FLUDROCORTISONE ACETATE 0.1 MG TAB PO SCH (08:39)
[2019-12-05] MEDS: FOLIC ACID 1 MG TAB PO SCH (08:39)
[2019-12-05] MEDS: MAGNESIUM CHLORIDE 64MG DELAYED REL TAB PO SCH ×3 (08:40→22:58)
[2019-12-05] MEDS: THIAMINE HCL 100 MG TAB PO SCH (08:40)
[2019-12-05] MEDS: CYANOCOBALAMIN 500 MCG TABLET (VITAMIN B-12) PO SCH (08:40)
[2019-12-05] MEDS: ENOXAPARIN INJ 40 MG/0.4 ML SYR SQ SCH (08:41)
[2019-12-05] MEDS: INSULIN ASPART 100 UNITS/ML 3 ML PEN SC SCH ×4 (08:42→22:56)
[2019-12-05] MEDS: DOCUSATE SODIUM 100 MG CAP PO SCH ×2 (08:43→22:35)
[2019-12-05] MEDS: METOPROLOL SUCC 25MG EXT REL TAB PO SCH ×3 (08:43→23:00)
--- NOTE | 2019-12-05 08:55 | Pharmacy Report ---
Pharmacy Glycemic Sign Off Nt - Date of Service December 05, 2019 - Assessment & Plan ASSESSMENT: * Pharmacy was consulted by Dr Bergeron on 11/28/19 for glycemic control and to write orders per [facility] inpatient glycemic control protocol. * Major changes made by pharmacy to antidiabetic regimen include: * Using Insulin drip then converting to Lantus and Novolog to cover steroid induced hyperglycemia in ICU * Patient has been receiving/requiring 0-3 units of insulin per day for adequa te glycemic control * BSGs ranging 92-173mg/dl * Regimen has only required minor adjustments over the past 48hrs to achieve this level of control * Do not anticipate further changes in patient status that would quickly deteriorate glycemic control (i.e. patient to be NPO for upcoming procedure, steroids tapering, starting tube feedings, etc). * Please see recommendations for outpatient antidiabetic regimen below. PLAN FOR INPATIENT GLYCEMIC CONTROL: No changes needed to current regimen. * Continue NovoLog per scale ACHS/Q6hrs while NPO * Goal range = 120-150 mg/dl * CF = 30 mg/dl/unit * CR = none * A1c added to discharge instructions to be communicated to PCP. * Pharmacy is signing off of glycemic consult and will no longer be making adjustments to inpatient regimen. Please feel free to re-consult if needed. Thank you. DISCHARGE RECOMMENDATIONS: * A1c 4.9 % on 11/18/19 - no outpatient DM medications needed at this time
--- NOTE | 2019-12-05 11:54 | Cardiology Progress Note ---
Date of Service December 05, 2019 Assessment & Plan (1) Cardiomyopathy: (2) Malnutrition: (3) Acute respiratory failure with hypoxia: (4) Empyema of left pleural space: (5) Septic shock: (6) Septic arthritis of knee, left: (7) LFT elevation: (8) Hypokalemia: (9) Gram positive sepsis: Her EKG changes do correspond with significant drop of her LV systolic function. 2D echocardiogram performed earlier this admission showed normal LV systolic function without regional wall motion abnormality, EF 65 to 70%. Repeat echocardiogram now shows an apical ballooning pattern along significantly reduced LV systolic function EF approximately 30 to 35%. 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 Given her lack of symptoms I do not believe an ischemic work-up is warranted at this point. We will treat her supportively with evidence-based beta-cynthia as her BP allows. BP has been running on the low side and metoprolol has been held as per parameters, I agree with this and would not force the issue at this point. We will try to provide once BP allows. No further cardiac testing or intervention is necessary. Okay to discharge from telemetry or to home from a cardiac standpoint. Obviously, will defer further treatment of her multiple other medical issues to the primary and specialty teams. Continue to monitor on telemetry while admitted. Subjective Patient seen and examined, states that she has been having some issues with a headache and back pain at tube insertion site. Otherwise she is feeling very tired and worn out. Unfortunately, her relative hypotension has not been supportive of continued metoprolol. She denies any chest pain, shortness of breath, palpitations, lightheadedness, dizziness or syncope. Telemetry reviewed: Normal sinus rhythm without arrhythmia or significant ectopy. Review of Systems Review of Systems: All systems reviewed & are unremarkable except as noted in HPI & below Physical Exam Physical Exam: General: Awake, alert and oriented x 3. No acute distress. HEENT: Normocephalic, atraumatic. Pupils equal, round and reactive to light and accommodation. Extraocular muscles are intact. Anicteric sclera. Moist mucous membranes. Neck: No JVD. No bruit. Cardiovascular: Regular. Positive S-4. Normal S-1 and S-2. No S-3. No murmurs or rubs. Pulmonary: Clear to auscultation B/L. No rales, rhonchi or wheezing Abdomen: Bowel sounds x 4, soft. No rebound, guarding or tenderness. No organomegaly. Extremities: No clubbing, cyanosis or edema. +2 pedal pulses bilaterally. Skin: Warm and dry. Results & Data Vital Signs (Past 12 Hours) Vital Signs Temp Pulse Pulse Resp BP Pulse Ox 12/05/19 11:20 37.0 C 72 20 115/60 94 12/05/19 08:00 36.9 C 59 L 66 18 110/63 99 12/05/19 07:27 63 100 12/05/19 03:43 36.3 C L 64 18 105/64 96 12/05/19 00:24 81 18 96
--- NOTE | 2019-12-05 15:49 | Progress Note ---
DATE: 12/05/2019 Nicole Kelley was seen today. She is now on room air which is a remarkable turnaround. She is still draining fluid from her chest tube sites. Her white count is normal. Hemoglobin stable at 9.7. We did not check an x-ray in a couple of days. Overall, I am very pleased. We will continue to follow. I think this drainage will stop from her chest. We will check a chest x-ray in the morning.
--- NOTE | 2019-12-05 18:42 | Hospitalist Progress Note ---
Date of Service December 05, 2019 Assessment & Plan (1) Gram positive sepsis: Presented with malaise, myalgias, nausea, vomiting. Afebrile at time of admission and white count was normal. Was not obviously septic, but was tachycardic and tachypneic and therefore, in retrospect, met criteria for severe sepsis per current CMS guidelines. Serum lactate was 1.9. Blood cultures were drawn and subsequently grew MRSA. Subsequently found to have MRSA empyema as well as MRSA septic arthritis of left knee. MRI of thoracic and lumbar spine did not show any apparent discitis, osteomyelitis, epidural abscess. Echocardiogram did not show any valvular vegetations. Started on IV vancomycin when positive blood cultures were reported. ID consulted. Source control of empyema and septic arthritis as discussed below. Repeat blood cultures on 11/18, 11/19, 11/20 were positive. Blood cultures from 11/24 remain negative. Antibiotic therapy IV vancomycin --> daptomycin --> ceftaroline. C-reactive protein 8.87 11/23 --> 2.10 12/02. Long course of parental IV antibiotic therapy anticipated. (2) Hypotension: Recent orthostatic hypotension, started on fludrocortisone prior to admission. Hypotensive at time of admission. Volume depletion considered, but sepsis probably a factor. Received IV fluids. Required pressor support after thoracoscopy and again after knee arthroscopy. Relative adrenal insufficiency, was receiving hydrocortisone as well as fludrocortisone, hydrocortisone stopped May have underlying autonomic neuropathy. Weaned off pressors. Follow hemodynamics, fluids status. (3) Empyema of left pleural space: Imaging at time of admission demonstrated a left pleural effusion. Thoracic Surgery consulted. Pleural fluid from thoracentesis grew MRSA. Thoracoscopy and decortication recommended for complex empyema. Procedure performed by Dr. Miranda on 11/24. Chest tube removed 11/28. Patient had increased fluid drainage today (12/05) from the chest tube site, will need to closely monitor, ask the nursing staff to notify me whn occurs again (4) Septic arthritis of knee, left: Experienced pain and swelling of left knee. Seen in consultation by Orthopedics. Arthrocentesis on 11/22/2019 demonstrated 78,000 WBCs (88% polys). Cultures subsequently grew MRSA. Receiving IV antibiotics as discussed above. Arthroscopic incision and drainage performed 11/27. Further management per Orthopedics. (5) Urinary tract infection: Urine culture from 11/22/2019 grew E. coli and Klebsiella oxytoca. Received IV antibiotics. (6) Acute respiratory failure with hypoxia: Requiring supplemental oxygen for hypoxia. Wean O2 as tolerated. (7) Left rib fracture: Multiple left rib fractures due to recent fall. Analgesics PRN. Incentive spirometry. (8) Anastomotic ulcer S/P gastric bypass: Status post [place] gastric bypass years ago. History anastomotic ulcer. No gross GI bleeding. Continue PPI; resume sucralfate, misoprostol when able. (9) LFT elevation: At time of admission, total bilirubin 4.6, AST 128, ALT 56, alkaline phosphatase 181. Ultrasound of abdomen on 11/17 demonstrated hepatic steatosis, no significant ductal dilatation, surgical absence of gallbladder. CT performed on the same day showed similar findings. GI consulted. Liver profile 12/01 demonstrated total bilirubin 1.1, direct bilirubin 0.8, AST 57, ALT 39, alkaline phosphatase 217. Sepsis may have been contributing to hepatic dysfunction. Further evaluation/management per GI. (10) Hyponatremia: Serum sodium 132 at time of admission. Possible SIADH from pulmonary disease or SSRI. Resolved (11) Hypokalemia: Serum potassium at time of admission 2.6. Hypokalemia probably multifactorial-inadequate oral intake, GI loss, mineralocorticoid therapy could all be contributing factors. Replace and monitor (12) Hypomagnesemia: Serum magnesium 1.6 Replace and monitor (13) Diabetes mellitus type 2, controlled: Diabetes mellitus type 2, recently diet controlled. Hemoglobin A1c 4.9. Blood sugars fluctuating due to acute illness. Receiving Lantus/NovoLog. (14) Anemia: Hemoglobin 10.5 at time of admission. Hemoglobin fell as low as 7.0. No gross GI bleeding. Serum iron 12, TIBC 70, transferrin 59, ferritin 385, B12 greater than 2000, folate 6.2, SPEP pending. Anemia probably multifactorial-possible blood loss from anastomotic ulcer and sepsis contributing factors. Has received 4 units of packed RBCs thus far. Hemoglobin 8 -9 (stable) Follow H&H. (15) Alcoholism: History of alcoholism. Denies recent consumption, though she apparently inadvertently ate some Jell-O shots around the time of admission. (16) Malnutrition: Cont. nutritional support (17) DVT prophylaxis: Enoxaparin. SCDs. Ambulate as able. (18) Discharge planning issues: Discharge disposition to be determined, plan for [facility] once medically stable Will likely need transition to rehab facility before returning home. Family Medicine follow-up with Dr. Quintanilla. Subjective Patient is lying in bed, in no acute distress, however she continues to have headache. Nursing staff also noticed more drainage from the chest tube site. Patient feels very tired. Denies any fevers, chills, chest pain, shortness of breath, has some epigastric abdominal pain/reflux. Review of Systems Review of Systems: All systems reviewed & are unremarkable except as noted in HPI & below Constitutional: + fatigue; no fever and no chills Ear, Nose, Mouth, Throat: + headache Respiratory: no cough and no dyspnea Increased drainage from chest tube site Cardiovascular: no chest pain and no palpitations Gastrointestinal: no abdominal pain, no nausea and no vomiting Physical Exam Physical Exam: Constitutional: + ill appearing female lying in bed in no acute distress, on 2L of NC ENMT: EOMI, PERRL, normal to inspection, anicteric sclerae Respiratory: Auscultation: + diffuse crackles, no accessory muscle use, poor air movement Cardiovascular: Rate/Rhythm: regular rate and regular rhythm Vessels: no JVD Extremities: normal capillary refill (toes ~ 1 sec) and + edema (bilateral upper extremity; 1+ pretibial); no calf tenderness Gastrointestinal (Abdomen): normal bowel sounds, soft, nontender, nondistended, no guarding Musculoskeletal: Extremities: + extremities abnormal to inspection (L knee without erythema or warmth; SCDs applied to RLE; waffle boots) Skin: no rashes, warm and dry Neuro/Psychiatric: Orientation: alert and oriented x3, no facial asymmetry, speech fluent, moves all extremities spontaneously Results & Data ([facility]) Vital Signs (Past 12 Hours) Vital Signs Temp Pulse Pulse Pulse Resp BP Pulse Ox 12/05/19 16:00 81 12/05/19 15:26 36.3 C L 78 18 115/67 91 12/05/19 13:28 72 16 91 12/05/19 11:20 37.0 C 72 20 115/60 94 12/05/19 08:00 36.9 C 59 L 66 18 110/63 99 12/05/19 07:27 63 100 Laboratory Results 12/05/19 12/05/19 12/05/19 Range/Units 16:29 11:24 07:35 WBC (4.8-10.8) K/uL RBC (4.2-5.4) M/uL Hgb (12.0-16.0) g/dL Hct (37-47) % MCV (80-100) fL MCH (25-34) pg MCHC (32-36) g/dL RDW Std Deviation (36.4-46.3) fL RDW Coeff of Taye (11.5-14.5) % Plt Count (130-400) K/uL MPV (7.4-10.4) fL POC Glucose 108 H 116 H 109 H (70-99) mg/dl 12/05/19 12/04/19 Range/Units 07:16 20:58 WBC 10.51 (4.8-10.8) K/uL RBC 3.10 L (4.2-5.4) M/uL Hgb 9.7 L (12.0-16.0) g/dL Hct 30.5 L (37-47) % MCV 98.4 (80-100) fL MCH 31.3 (25-34) pg MCHC 31.8 L (32-36) g/dL RDW Std Deviation 64.3 H (36.4-46.3) fL RDW Coeff of Taye 17.9 H (11.5-14.5) % Plt Count 164 (130-400) K/uL MPV 9.7 (7.4-10.4) fL POC Glucose 124 H (70-99) mg/dl Medications Administered Current Inpatient Medications Acetaminophen (Tylenol) 650 mg PO Q4H PRN PRN Reason: Pain Stop: 01/01/20 16:11 Last Admin: 12/04/19 21:42 Dose: 650 mg Documented by: Albuterol (Duoneb) 3 ml NEB Q6R BABAK Stop: 12/28/19 12:59 Last Admin: 12/05/19 13:27 Dose: 3 ml Documented by: Bisacodyl (Dulcolax) 10 mg FL DAILY PRN PRN Reason: Constipation Stop: 12/27/19 17:01 Cyanocobalamin (Vitamin B-12) 500 mcg PO DAILY BABAK Stop: 12/17/19 08:59 Last Admin: 12/05/19 08:40 Dose: 500 mcg Documented by: Dextrose (Dextrose 50%) 25 - 50 ml IV UD PRN; Protocol PRN Reason: Hypoglycemia Protocol Stop: 12/17/19 17:30 Last Admin: 11/28/19 23:45 Dose: 25 ml Documented by: Docusate Sodium (Colace) 100 mg PO BID BABAK Stop: 12/24/19 20:59 Last Admin: 12/05/19 08:43 Dose: Not Given Documented by: Enoxaparin Sodium (Lovenox) 40 mg SQ QAM [facility] Stop: 12/25/19 09:29 Last Admin: 12/05/19 08:41 Dose: 40 mg Documented by: Fludrocortisone Acetate (Florinef) 0.1 mg PO QAM [facility] Stop: 12/25/19 08:59 Last Admin: 12/05/19 08:39 Dose: 0.1 mg Documented by: Folic Acid (Folvite) 1 mg PO DAILY [facility]ABAK Stop: 12/17/19 08:59 Last Admin: 12/05/19 08:39 Dose: 1 mg Documented by: Gabapentin (Neurontin) 300 mg PO TID [facility] Stop: 12/17/19 08:59 Last Admin: 11/28/19 08:22 Dose: Not Given Documented by: Glucagon (Glucagen) 1 mg SQ UD PRN; Protocol PRN Reason: Hypoglycemia Protocol Stop: 12/17/19 17:30 Glucose (Dex4 Glucose) 4 - 8 tabs PO UD PRN; Protocol PRN Reason: Hypoglycemia Protocol Stop: 12/17/19 17:30 Glucose (Glucose 40%) 15 - 30 gm PO UD PRN; Protocol PRN Reason: Hypoglycemia Protocol Stop: 12/17/19 17:30 Heparin Sodium (Beef Lung) (Heparin Sod 10 Unit/Ml Flush) 5 ml FLUSH PRN PRN PRN Reason: Flush Stop: 01/04/20 07:53 Promethazine HCl 12.5 mg/ (Sodium Chloride) 50.5 mls @ 202 mls/hr IV Q6H PRN PRN Reason: Nausea And Vomiting Stop: 12/17/19 06:21 Last Infusion: 11/19/19 12:50 Dose: Infused Documented by: Furosemide 40 mg/ Syringe 4 mls @ 4 mls/min IV Q12H [facility] Stop: 01/01/20 17:59 Last Admin: 12/05/19 17:57 Dose: 4 mls/min Documented by: Ceftaroline Fosamil 600 mg/ (Sodium Chloride) 50 mls @ 50 mls/hr IV Q8H [facility]; Protocol Stop: 12/09/19 08:59 Last Infusion: 12/05/19 16:59 Dose: Infused Documented by: Insulin Aspart (Novolog Flexpen) 0 units SC ACHS [facility] Stop: 01/02/20 11:29 Last Admin: 12/05/19 17:44 Dose: Not Given Documented by: Levothyroxine Sodium (Synthroid) 25 mcg PO DAILYBB [facility] Stop: 12/17/19 06:29 Last Admin: 12/05/19 06:34 Dose: 25 mcg Documented by: Linezolid (Zyvox) 600 mg PO BID [facility] Stop: 12/16/19 08:59 Magnesium Chloride (Slow-Mag) 64 mg PO BID [facility] Stop: 12/20/19 09:14 Last Admin: 12/05/19 08:40 Dose: 64 mg Documented by: Metoclopramide HCl (Reglan) 10 mg IV Q6H PRN PRN Reason: Nausea And Vomiting Stop: 12/27/19 17:01 Last Admin: 12/03/19 07:20 Dose: 10 mg Documented by: Metoprolol Succinate (Toprol Xl) 12.5 mg PO BID [facility] Stop: 01/02/20 10:44 Last Admin: 12/05/19 08:43 Dose: Not Given Documented by: Miscellaneous (Carbohydrates For Hypoglycemia) 15 - 30 gm PO UD PRN PRN Reason: Hypoglycemia Protocol Stop: 12/17/19 17:30 Last Admin: 11/19/19 17:29 Dose: 30 gm Documented by: Misoprostol (Cytotec) 100 mcg PO QID [facility] Stop: 12/17/19 08:59 Last Admin: 12/05/19 17:57 Dose: 100 mcg Documented by: Multivitamins (Multivitamin Tab) 1 tab PO QAM [facility] Stop: 12/28/19 08:59 Last Admin: 12/05/19 08:38 Dose: 1 tab Documented by: Naloxone HCl (Narcan) 0.1 mg IV Q5M PRN PRN Reason: Oversedation/Resp Depression Stop: 12/27/19 17:01 Nitroglycerin (Nitrostat) 0.4 mg SL UD PRN PRN Reason: Chest Pain Stop: 12/17/19 06:21 Ondansetron HCl (Zofran) 4 mg IV Q6H PRN PRN Reason: Nausea And Vomiting Stop: 12/27/19 17:01 Last Admin: 12/03/19 05:14 Dose: 4 mg Documented by: Pantoprazole Sodium (Protonix) 40 mg PO BID [facility] Stop: 01/02/20 08:59 Last Admin: 12/05/19 08:38 Dose: 40 mg Documented by: Potassium Chloride (Klor-Con M20) 40 meq PO BID [facility] Stop: 01/01/20 20:59 Last Admin: 12/05/19 08:39 Dose: 40 meq Documented by: Sucralfate (Carafate) 1 gm PO QID [facility] Stop: 01/02/20 19:59 Last Admin: 12/05/19 17:57 Dose: 1 gm Documented by: Thiamine HCl (Vitamin B-1) 100 mg PO QAM [facility] Stop: 12/17/19 08:59 Last Admin: 12/05/19 08:40 Dose: 100 mg Documented by: (1) Left rib fracture Encounter type: initial encounter Fracture type: closed Rib fracture type: multiple ribs Qualified Code(s): S22.42XA - Multiple fractures of ribs, left side, initial encounter for closed fracture
[2019-12-06] MEDS: ALBUT/IPRATROP 3MG/0.5MG NEB 3 ML VIAL NEB SCH ×4 (01:16→19:44)
[2019-12-06] MEDS: LEVOTHYROXINE SODIUM 25 MCG TABLET PO SCH (06:17)
[2019-12-06] MEDS: FUROSEMIDE 40 MG in SYRINGE 0 ML IV SCH ×2 (06:39→16:17)
[2019-12-06] MEDS: CEFTAROLINE FOSAMIL ACETATE IV SCH ×3 (07:57→23:28)
[2019-12-06] MEDS: SODIUM CHLORIDE 0.9% IV SCH ×3 (07:57→23:28)
[2019-12-06] MEDS: INSULIN ASPART 100 UNITS/ML 3 ML PEN SC SCH ×4 (08:02→21:42)
--- NOTE | 2019-12-06 08:30 | XRay Report ---
XR chest 1V portable HISTORY: empyema COMPARISON: Chest 12/03/2019. FINDINGS: No pneumothorax. Moderate sized loculated left basilar pleural effusion. There is a small r ight pleural effusion. The heart is normal in size. Diffuse interstitial thickening persists. IMPRESSION: 1. Moderate-sized loculated left basilar pleural effusion. This has progressed. 2. Small right pleural effusion. ACT 112: Negative or not required by law. Electronically signed by: Matty Matias M.D. 12/06/2019 8:29 AM
[2019-12-06] MEDS: ACETAMINOPHEN 325 MG TAB PO PRN (09:30)
[2019-12-06] MEDS: miSOPROStoL 100 MCG TAB PO SCH ×4 (09:31→21:41)
[2019-12-06] MEDS: POTASSIUM CHLORIDE 20 MEQ TABCR PO SCH ×2 (09:31→21:42)
[2019-12-06] MEDS: CYANOCOBALAMIN 500 MCG TABLET (VITAMIN B-12) PO SCH (09:31)
[2019-12-06] MEDS: MAGNESIUM CHLORIDE 64MG DELAYED REL TAB PO SCH ×2 (09:31→21:44)
[2019-12-06] MEDS: PANTOprazole 40 MG TAB PO SCH ×2 (09:31→21:44)
[2019-12-06] MEDS: METOPROLOL SUCC 25MG EXT REL TAB PO SCH ×2 (09:31→21:45)
--- NOTE | 2019-12-06 09:31 | CT Scan Report ---
CT chest wo con CT DOSE: 431.62 mGy.cm HISTORY: enlarging left pleural effusion TECHNIQUE: Multiaxial CT images of the chest were performed without contrast. A dose lowering techni que was utilized adhering to the principles of ALARA. COMPARISON: Chest CT 11/17/2019. FINDINGS: The ascending thoracic aorta measures up to 3.9 cm in diameter. This remains unchanged. The re is a small pericardial effusion which is new from the prior study. The heart is normal in size. He patic steatosis. The visualized spleen is unremarkable. Postoperative changes suggestive of prior gas tric bypass. This is only partially visualized on this study. There is moderate body wall edema most pronounced on the left. No mediastinal or hilar lymphadenopathy. Small to moderate bilateral pleural effusions, left greater than right. The left pleural effusion is also partially loculated. There is n o gas within the pleural space. No pneumothorax. Old, healed right posterior rib fractures. Multiple healing right anterior rib fractures. Mildly displaced left posterior 10th and 11th rib fractures are again noted. These demonstrate partial healing. Multiple nondisplaced acute left anterior rib fractu res remain unchanged. The central airways are patent. Bilateral lower lobe linear densities favor com pressive atelectasis from the pleural effusions. Multifocal small patchy airspace opacities are also noted throughout the lungs most pronounced within the apices. This is new from the prior study. There is a new 12 mm nodular density within the right lung apex on image 40. This also favors a focus of i nflammatory/infectious change. IMPRESSION: 1. Increase in size in the bilateral pleural effusions, left greater than right. The left pleural eff usion is also partially loculated. No gas identified within the pleural space. 2. Bilateral rib fractures are again noted as described above. No pneumothorax. 3. Interval development of multiple small scattered patchy airspace opacity seen throughout the lungs . This represents a pneumonia or congestive change. There is also a new 12 mm subpleural nodule withi n the right lung apex which also favors a focus of inflammatory/infectious change. 4. Moderate body wall edema which has progressed. 5. The ascending thoracic aorta measures up to 3.9 cm in diameter. 6. Small pericardial effusion which is new from the prior study. 7. Hepatic steatosis. 8. Additional findings as described above. ACT 112: Negative or not required by law. Electronically signed by: Matty Matias M.D. 12/06/2019 9:30 AM
[2019-12-06] MEDS: FOLIC ACID 1 MG TAB PO SCH (09:32)
[2019-12-06] MEDS: THIAMINE HCL 100 MG TAB PO SCH (09:32)
[2019-12-06] MEDS: ENOXAPARIN INJ 40 MG/0.4 ML SYR SQ SCH (09:32)
[2019-12-06] MEDS: MULTIVITAMIN TAB PO SCH (09:32)
[2019-12-06] MEDS: FLUDROCORTISONE ACETATE 0.1 MG TAB PO SCH (09:32)
[2019-12-06] MEDS: SUCRALFATE 1 GM/10 ML UDC PO SCH ×4 (09:33→21:41)
[2019-12-06 09:41] LABS: Hemoglobin 8.6 g/dL (12.0-16.0); Mean Corpuscular Hemoglobin 31.4 pg (25-34); Mean Corpuscular Hgb Conc 31.9 g/dL (32-36); Mean Corpuscular Volume 98.5 fL (80-100); Mean Platelet Volume 9.5 fL (7.4-10.4); Platelet Count 177 K/uL (130-400); RDW Coefficient of Variation 18.1 % (11.5-14.5); RDW Standard Deviation 63.8 fL (36.4-46.3); Red Blood Count 2.74 M/uL (4.2-5.4); White Blood Count 9.42 K/uL (4.8-10.8)
[2019-12-06 10:06] LABS: Calcium 7.4 mg/dl (8.5-10.1); Creatinine Clr Calc Pharmacy 67.1 ml/min; Est GFR (African American) 83.9; Est GFR (Non-African American) 72.4; Magnesium 1.6 mg/dl (1.8-2.4); Potassium 3.2 mmol/L (3.5-5.1)
[2019-12-06] MEDS: DOCUSATE SODIUM 100 MG CAP PO SCH ×2 (11:37→21:41)
[2019-12-06] MEDS: MAGNESIUM SULFATE / D5W 1 GM/100 ML BAG IV SCH ×2 (12:02→13:09)
[2019-12-06] MEDS: POTASSIUM CHLORIDE / WTR 10 MEQ/100 ML PLCT IV SCH ×2 (12:03→13:09)
--- NOTE | 2019-12-06 12:47 | Progress Note ---
DATE: 12/06/2019 Allie was evaluated today. She is still on room air. She is complaining of chest pain in her retrosternal area. Her vital signs are stable. Pulse rate is in the 70s and she is on room air with 93% saturations. She has decreased breath sounds in both of her bases actually, but a bit more on the left. Her white count today is only 9420 with hemoglobin of 8.6. I was concerned about her x-ray this morning and ordered a CT scan, which shows a loculated fluid along the left side. This is not surprising, but it is larger than I would like. I am going to place a PleurX catheter in her at bedside tomorrow. We may use the MIST-2 protocol. We will see how she looks in the morning. I explained this carefully to the patient who understands.
[2019-12-06] MEDS ORDERED: FUROSEMIDE 20 MG in SYRINGE 0 ML IV ONE (15:15)
--- NOTE | 2019-12-06 15:28 | Hospitalist Progress Note ---
Date of Service December 06, 2019 Assessment & Plan (1) Gram positive sepsis: Presented with malaise, myalgias, nausea, vomiting. Afebrile at time of admission and white count was normal. Was not obviously septic, but was tachycardic and tachypneic and therefore, in retrospect, met criteria for severe sepsis per current CMS guidelines. Serum lactate was 1.9. Blood cultures were drawn and subsequently grew MRSA. Subsequently found to have MRSA empyema as well as MRSA septic arthritis of left knee. MRI of thoracic and lumbar spine did not show any apparent discitis, osteomyelitis, epidural abscess. Echocardiogram did not show any valvular vegetations. Started on IV vancomycin when positive blood cultures were reported. ID consulted. Source control of empyema and septic arthritis as discussed below. Repeat blood cultures on 11/18, 11/19, 11/20 were positive. Blood cultures from 11/24 remain negative. Antibiotic therapy IV vancomycin --> daptomycin --> ceftaroline. C-reactive protein 8.87 11/23 --> 2.10 12/02. Long course of parental IV antibiotic therapy anticipated. (2) Hypotension: Recent orthostatic hypotension, started on fludrocortisone prior to admission. Hypotensive at time of admission. Volume depletion considered, but sepsis probably a factor. Received IV fluids. Required pressor support after thoracoscopy and again after knee arthroscopy. Relative adrenal insufficiency, was receiving hydrocortisone as well as fludrocortisone, hydrocortisone stopped May have underlying autonomic neuropathy. Weaned off pressors. Follow hemodynamics, fluids status. (3) Empyema of left pleural space: Imaging at time of admission demonstrated a left pleural effusion. Thoracic Surgery consulted. Pleural fluid from thoracentesis grew MRSA. Thoracoscopy and decortication recommended for complex empyema. Procedure performed by Dr. Miranda on 11/24. Chest tube removed 11/28. Patient had increased fluid drainage (12/05) from the chest tube site, will need to closely monitor, ask the nursing staff to notify me when occurs again - evaluated by CT surg., poss. pleurex placement tomorrow (12/07) (4) Septic arthritis of knee, left: Experienced pain and swelling of left knee. Seen in consultation by Orthopedics. Arthrocentesis on 11/22/2019 demonstrated 78,000 WBCs (88% polys). Cultures subsequently grew MRSA. Receiving IV antibiotics as discussed above. Arthroscopic incision and drainage performed 11/27. Further management per Orthopedics. (5) Urinary tract infection: Urine culture from 11/22/2019 grew E. coli and Klebsiella oxytoca. Received IV antibiotics. (6) Acute respiratory failure with hypoxia: Requiring supplemental oxygen for hypoxia. Wean O2 as tolerated. Continues to require 2L/min (7) Left rib fracture: Multiple left rib fractures due to recent fall. Analgesics PRN. Incentive spirometry. (8) Anastomotic ulcer S/P gastric bypass: Status post [place]-en-[place] gastric bypass years ago. History anastomotic ulcer. No gross GI bleeding. Continue PPI; resume sucralfate, misoprostol when able. (9) LFT elevation: At time of admission, total bilirubin 4.6, AST 128, ALT 56, alkaline phosphatase 181. Ultrasound of abdomen on 11/17 demonstrated hepatic steatosis, no significant ductal dilatation, surgical absence of gallbladder. CT performed on the same day showed similar findings. GI consulted. Liver profile 12/01 demonstrated total bilirubin 1.1, direct bilirubin 0.8, AST 57, ALT 39, alkaline phosphatase 217. Sepsis may have been contributing to hepatic dysfunction. Further evaluation/management per GI. (10) Hyponatremia: Serum sodium 132 at time of admission. Possible SIADH from pulmonary disease or SSRI. Resolved (11) Hypokalemia: Serum potassium at time of admission 2.6. Hypokalemia probably multifactorial-inadequate oral intake, GI loss, mineralocorticoid therapy could all be contributing factors. Replace and monitor (12) Hypomagnesemia: Serum magnesium 1.6 Replace and monitor (13) Diabetes mellitus type 2, controlled: Diabetes mellitus type 2, recently diet controlled. Hemoglobin A1c 4.9. Blood sugars fluctuating due to acute illness. Receiving Lantus/NovoLog. Loose stools - no blood noted - will test for C. diff (12/06) (14) Anemia: Hemoglobin 10.5 at time of admission. Hemoglobin fell as low as 7.0. No gross GI bleeding. Serum iron 12, TIBC 70, transferrin 59, ferritin 385, B12 greater than 2000, folate 6.2, SPEP pending. Anemia probably multifactorial-possible blood loss from anastomotic ulcer and sepsis contributing factors. Has received 4 units of packed RBCs thus far. Hemoglobin 8 -9 (stable) Follow H&H. (15) Alcoholism: History of alcoholism. Denies recent consumption, though she apparently inadvertently ate some Jell-O shots around the time of admission. (16) Malnutrition: Cont. nutritional support (17) DVT prophylaxis: Enoxaparin. SCDs. Ambulate as able. (18) Discharge planning issues: Discharge disposition to be determined, plan for [facility] once medically stable Will likely need transition to rehab facility before returning home. Family Medicine follow-up with Dr. Quintanilla. Subjective Patient is lying in bed, in no acute distress, denies any fevers, chills, chest pain, shortness of breath, abdominal pain, nausea or vomiting. Patient has been having loose stools, will test for C. difficile. Pl. effusions worsening, possible pleurex per CT surg. tomtosinw K, Mg - replete Review of Systems Review of Systems: All systems reviewed & are unremarkable except as noted in HPI & below Constitutional: + fatigue; no fever and no chills Ear, Nose, Mouth, Throat: + headache Respiratory: + cough (mild ); no dyspnea Cardiovascular: no chest pain and no palpitations Gastrointestinal: + abdominal pain (some epigastric discomfort) and + diarrhea/loose stools; no nausea, no vomiting and no blood in stools Physical Exam Physical Exam: Constitutional: + ill appearing female lying in bed in no acute distress, on 2L of [place] ENMT: EOMI, PERRL, normal to inspection, anicteric sclerae Respiratory: Auscultation: + diffuse crackles, no accessory muscle use, poor air movement Cardiovascular: Rate/Rhythm: regular rate and regular rhythm Vessels: no JVD Extremities: normal capillary refill and + edema (bilateral upper extremity; 1+ pretibial); no calf tenderness Gastrointestinal (Abdomen): normal bowel sounds, soft, mildly tender to palp. in epigastric region, nondistended, no guarding Musculoskeletal: Extremities: + extremities abnormal to inspection (L knee without erythema or warmth; SCDs applied to RLE; waffle boots) Skin: no rashes, warm and dry Neuro/Psychiatric: Orientation: alert and oriented x3, no facial asymmetry, spe ech fluent, moves all extremities spontaneously Results & Data ([facility]) Vital Signs (Past 12 Hours) Vital Signs Temp Pulse Pulse Pulse Resp BP Pulse Ox 12/06/19 15:08 36.6 C 69 18 107/62 89 L 12/06/19 13:15 69 18 91 12/06/19 11:00 36.7 C 68 16 109/70 93 12/06/19 08:00 36.9 C 71 71 19 106/66 93 12/06/19 04:01 36.6 C 78 16 112/63 93 Laboratory Results 12/06/19 12/06/19 12/06/19 Range/Units 11:22 09:23 09:23 WBC 9.42 (4.8-10.8) K/uL RBC 2.74 L (4.2-5.4) M/uL Hgb 8.6 L (12.0-16.0) g/dL Hct 27.0 L (37-47) % MCV 98.5 (80-100) fL MCH 31.4 (25-34) pg MCHC 31.9 L (32-36) g/dL RDW Std Deviation 63.8 H (36.4-46.3) fL RDW Coeff of Taye 18.1 H (11.5-14.5) % Plt Count 177 (130-400) K/uL MPV 9.5 (7.4-10.4) fL Sodium 139 (136-145) mmol/L Potassium 3.2 L (3.5-5.1) mmol/L Chloride 102 (98-107) mmol/L Carbon Dioxide 33 H (21-32) mmol/L Anion Gap 4.0 (3-11) BUN 11 (7-18) mg/dl Creatinine 0.86 (0.6-1.2) mg/dl Est Cr Clr Drug Dosing 67.1 ml/min Est GFR ( Amer) 83.9 Est GFR (Non-Af Amer) 72.4 POC Glucose 109 H (70-99) mg/dl Fasting Glucose 121 H (70-99) mg/dl Calcium 7.4 L (8.5-10.1) mg/dl Magnesium 1.6 L (1.8-2.4) mg/dl 12/06/19 12/05/19 Range/Units 07:47 16:29 WBC (4.8-10.8) K/uL RBC (4.2-5.4) M/uL Hgb (12.0-16.0) g/dL Hct (37-47) % MCV (80-100) fL MCH (25-34) pg MCHC (32-36) g/dL RDW Std Deviation (36.4-46.3) fL RDW Coeff of Taye (11.5-14.5) % Plt Count (130-400) K/uL MPV (7.4-10.4) fL Sodium (136-145) mmol/L Potassium (3.5-5.1) mmol/L Chloride (98-107) mmol/L Carbon Dioxide (21-32) mmol/L Anion Gap (3-11) BUN (7-18) mg/dl Creatinine (0.6-1.2) mg/dl Est Cr Clr Drug Dosing ml/min Est GFR ( Amer) Est GFR (Non-Af Amer) POC Glucose 93 108 H (70-99) mg/dl Fasting Glucose (70-99) mg/dl Calcium (8.5-10.1) mg/dl Magnesium (1.8-2.4) mg/dl Medications Administered Current Inpatient Medications Acetaminophen (Tylenol) 650 mg PO Q4H PRN PRN Reason: Pain Stop: 01/01/20 16:11 Last Admin: 12/06/19 09:30 Dose: 650 mg Documented by: Albuterol (Duoneb) 3 ml NEB Q6R [facility] Stop: 12/28/19 12:59 Last Admin: 12/06/19 13:14 Dose: 3 ml Documented by: Bisacodyl (Dulcolax) 10 mg KS DAILY PRN PRN Reason: Constipation Stop: 12/27/19 17:01 Cyanocobalamin (Vitamin B-12) 500 mcg PO DAILY [facility] Stop: 12/17/19 08:59 Last Admin: 12/06/19 09:31 Dose: 500 mcg Documented by: Dextrose (Dextrose 50%) 25 - 50 ml IV UD PRN; Protocol PRN Reason: Hypoglycemia Protocol Stop: 12/17/19 17:30 Last Admin: 11/28/19 23:45 Dose: 25 ml Documented by: Docusate Sodium (Colace) 100 mg PO BID [facility] Stop: 12/24/19 20:59 Last Admin: 12/06/19 11:37 Dose: Not Given Documented by: Enoxaparin Sodium (Lovenox) 40 mg SQ QAM [facility] Stop: 12/25/19 09:29 Last Admin: 12/06/19 09:32 Dose: 40 mg Documented by: Fludrocortisone Acetate (Florinef) 0.1 mg PO QAM [facility] Stop: 12/25/19 08:59 Last Admin: 12/06/19 09:32 Dose: 0.1 mg Documented by: Folic Acid (Folvite) 1 mg PO DAILY [facility] Stop: 12/17/19 08:59 Last Admin: 12/06/19 09:32 Dose: 1 mg Documented by: Gabapentin (Neurontin) 300 mg PO TID [facility] Stop: 12/17/19 08:59 Last Admin: 11/28/19 08:22 Dose: Not Given Documented by: Glucagon (Glucagen) 1 mg SQ UD PRN; Protocol PRN Reason: Hypoglycemia Protocol Stop: 12/17/19 17:30 Glucose (Dex4 Glucose) 4 - 8 tabs PO UD PRN; Protocol PRN Reason: Hypoglycemia Protocol Stop: 12/17/19 17:30 Glucose (Glucose 40%) 15 - 30 gm PO UD PRN; Protocol PRN Reason: Hypoglycemia Protocol Stop: 12/17/19 17:30 Heparin Sodium (Beef Lung) (Heparin Sod 10 Unit/Ml Flush) 5 ml FLUSH PRN PRN PRN Reason: Flush Stop: 01/04/20 07:53 Promethazine HCl 12.5 mg/ (Sodium Chloride) 50.5 mls @ 202 mls/hr IV Q6H PRN PRN Reason: Nausea And Vomiting Stop: 12/17/19 06:21 Last Infusion: 11/19/19 12:50 Dose: Infused Documented by: Ceftaroline Fosamil 600 mg/ (Sodium Chloride) 50 mls @ 50 mls/hr IV Q8H [facility]; Protocol Stop: 12/09/19 08:59 Last Admin: 12/06/19 14:44 Dose: 50 mls/hr Documented by: Furosemide 40 mg/ Syringe 4 mls @ 4 mls/min IV Q12H [facility] Stop: 01/05/20 15:29 Insulin Aspart (Novolog Flexpen) 0 units SC ACHS [facility] Stop: 01/02/20 11:29 Last Admin: 12/06/19 12:03 Dose: Not Given Documented by: Levothyroxine Sodium (Synthroid) 25 mcg PO DAILYBB [facility] Stop: 12/17/19 06:29 Last Admin: 12/06/19 06:17 Dose: Not Given Documented by: Linezolid (Zyvox) 600 mg PO BID [facility] Stop: 12/16/19 08:59 Magnesium Chloride (Slow-Mag) 64 mg PO BID [facility] Stop: 12/20/19 09:14 Last Admin: 12/06/19 09:31 Dose: 64 mg Documented by: Metoclopramide HCl (Reglan) 10 mg IV Q6H PRN PRN Reason: Nausea And Vomiting Stop: 12/27/19 17:01 Last Admin: 12/03/19 07:20 Dose: 10 mg Documented by: Metoprolol Succinate (Toprol Xl) 12.5 mg PO BID [facility] Stop: 01/02/20 10:44 Last Admin: 12/06/19 09:31 Dose: 12.5 mg Documented by: Miscellaneous (Carbohydrates For Hypoglycemia) 15 - 30 gm PO UD PRN PRN Reason: Hypoglycemia Protocol Stop: 12/17/19 17:30 Last Admin: 11/19/19 17:29 Dose: 30 gm Documented by: Misoprostol (Cytotec) 100 mcg PO QID [facility] Stop: 12/17/19 08:59 Last Admin: 12/06/19 13:09 Dose: 100 mcg Documented by: Multivitamins (Multivitamin Tab) 1 tab PO QAM [facility] Stop: 12/28/19 08:59 Last Admin: 12/06/19 09:32 Dose: 1 tab Documented by: Naloxone HCl (Narcan) 0.1 mg IV Q5M PRN PRN Reason: Oversedation/Resp Depression Stop: 12/27/19 17:01 Nitroglycerin (Nitrostat) 0.4 mg SL UD PRN PRN Reason: Chest Pain Stop: 12/17/19 06:21 Ondansetron HCl (Zofran) 4 mg IV Q6H PRN PRN Reason: Nausea And Vomiting Stop: 12/27/19 17:01 Last Admin: 12/03/19 05:14 Dose: 4 mg Documented by: Pantoprazole Sodium (Protonix) 40 mg PO BID [facility] Stop: 01/02/20 08:59 Last Admin: 12/06/19 09:31 Dose: 40 mg Documented by: Potassium Chloride (Klor-Con M20) 40 meq PO BID [facility] Stop: 01/01/20 20:59 Last Admin: 12/06/19 09:31 Dose: 40 meq Documented by: Sucralfate (Carafate) 1 gm PO QID [facility] Stop: 01/02/20 19:59 Last Admin: 12/06/19 13:09 Dose: 1 gm Documented by: Thiamine HCl (Vitamin B-1) 100 mg PO QAM [facility] Stop: 12/17/19 08:59 Last Admin: 12/06/19 09:32 Dose: 100 mg Documented by: (1) Left rib fracture Encounter type: initial encounter Fracture type: closed Rib fracture type: multiple ribs Qualified Code(s): S22.42XA - Multiple fractures of ribs, left side, initial encounter for closed fracture
[2019-12-07] MEDS: ALBUT/IPRATROP 3MG/0.5MG NEB 3 ML VIAL NEB SCH ×4 (01:58→19:30)
[2019-12-07] MEDS: LEVOTHYROXINE SODIUM 25 MCG TABLET PO SCH (05:40)
[2019-12-07 06:02] LABS: Hematocrit (blood only) 24.8 % (37-47); Hemoglobin 8.2 g/dL (12.0-16.0); Mean Corpuscular Hemoglobin 32.2 pg (25-34); Mean Corpuscular Hgb Conc 33.1 g/dL (32-36); Mean Corpuscular Volume 97.3 fL (80-100); Mean Platelet Volume 9.3 fL (7.4-10.4); Platelet Count 222 K/uL (130-400); RDW Coefficient of Variation 18.2 % (11.5-14.5); RDW Standard Deviation 64.1 fL (36.4-46.3); Red Blood Count 2.55 M/uL (4.2-5.4); White Blood Count 9.39 K/uL (4.8-10.8)
[2019-12-07 06:35] LABS: BUN Creatinine Ratio 12.6 (10-20); Calcium 7.4 mg/dl (8.5-10.1); Est GFR (African American) 83.9; Est GFR (Non-African American) 72.4; Phosphorus 2.9 mg/dl (2.5-4.9); Potassium 3.4 mmol/L (3.5-5.1)
[2019-12-07] MEDS: SODIUM CHLORIDE 0.9% IV SCH ×3 (07:54→23:10)
[2019-12-07] MEDS: CEFTAROLINE FOSAMIL ACETATE IV SCH ×3 (07:54→23:10)
[2019-12-07] MEDS: INSULIN ASPART 100 UNITS/ML 3 ML PEN SC SCH ×4 (07:56→21:25)
[2019-12-07] MEDS: FOLIC ACID 1 MG TAB PO SCH (07:57)
[2019-12-07] MEDS: POTASSIUM CHLORIDE 20 MEQ TABCR PO SCH ×2 (07:57→21:25)
[2019-12-07] MEDS: SUCRALFATE 1 GM/10 ML UDC PO SCH ×4 (07:57→21:24)
[2019-12-07] MEDS: DOCUSATE SODIUM 100 MG CAP PO SCH ×2 (07:57→21:24)
[2019-12-07] MEDS: THIAMINE HCL 100 MG TAB PO SCH (07:57)
[2019-12-07] MEDS: METOPROLOL SUCC 25MG EXT REL TAB PO SCH ×2 (07:58→21:26)
[2019-12-07] MEDS: CYANOCOBALAMIN 500 MCG TABLET (VITAMIN B-12) PO SCH (07:58)
[2019-12-07] MEDS: MAGNESIUM CHLORIDE 64MG DELAYED REL TAB PO SCH ×2 (07:58→21:26)
[2019-12-07] MEDS: FLUDROCORTISONE ACETATE 0.1 MG TAB PO SCH (07:58)
[2019-12-07] MEDS: miSOPROStoL 100 MCG TAB PO SCH ×4 (07:59→21:24)
[2019-12-07] MEDS: PANTOprazole 40 MG TAB PO SCH ×2 (07:59→21:26)
[2019-12-07] MEDS: ENOXAPARIN INJ 40 MG/0.4 ML SYR SQ SCH (08:00)
[2019-12-07] MEDS: FUROSEMIDE 40 MG in SYRINGE 0 ML IV SCH ×2 (08:01→16:44)
[2019-12-07] MEDS: MULTIVITAMIN TAB PO SCH (09:00)
[2019-12-07] MEDS ORDERED: FUROSEMIDE 40 MG in SYRINGE 0 ML IV SCH (09:00)
--- NOTE | 2019-12-07 13:21 | Progress Note ---
DATE: 12/07/2019 Ms. Kelley was seen today. She is depressed. She is also not eating. From a pulmonary standpoint, she is on room air. She is complaining some retrosternal chest pain which is not related to the fluid on the lateral left chest. At this point, I would like to hold off the PleurX today and repeat a chest x-ray tomorrow. In the meantime, I am also going to get a psychiatry consult as this woman appears to be markedly depressed to me. In addition, I am going to start her on some Megace. CHARLIE
[2019-12-07] MEDS ORDERED: POTASSIUM CHLORIDE 20 MEQ TABCR PO STA (16:04)
[2019-12-07] MEDS ORDERED: ALBUT/IPRATROP 3MG/0.5MG NEB 3 ML VIAL NEB PRN (19:48)
[2019-12-07] MEDS: MEGESTROL ACETATE SUSP 400 MG/10 ML UDC PO SCH (21:25)
--- NOTE | 2019-12-08 06:58 | Hospitalist Progress Note ---
Date of Service December 07, 2019 Assessment & Plan (1) Gram positive sepsis: Presented with malaise, myalgias, nausea, vomiting. Afebrile at time of admission and white count was normal. Was not obviously septic, but was tachycardic and tachypneic and therefore, in retrospect, met criteria for severe sepsis per current CMS guidelines. Serum lactate was 1.9. Blood cultures were drawn and subsequently grew MRSA. Subsequently found to have MRSA empyema as well as MRSA septic arthritis of left knee. MRI of thoracic and lumbar spine did not show any apparent discitis, osteomyelitis, epidural abscess. Echocardiogram did not show any valvular vegetations. Started on IV vancomycin when positive blood cultures were reported. ID consulted. Source control of empyema and septic arthritis as discussed below. Repeat blood cultures on 11/18, 11/19, 11/20 were positive. Blood cultures from 11/24 remain negative. Antibiotic therapy IV vancomycin --> daptomycin --> ceftaroline. C-reactive protein 8.87 11/23 --> 2.10 12/02. Long course of parental IV antibiotic therapy anticipated. (2) Hypotension: Recent orthostatic hypotension, started on fludrocortisone prior to admission. Hypotensive at time of admission. Volume depletion considered, but sepsis probably a factor. Received IV fluids. Required pressor support after thoracoscopy and again after knee arthroscopy. Relative adrenal insufficiency, was receiving hydrocortisone as well as fludrocortisone, hydrocortisone stopped May have underlying autonomic neuropathy. Weaned off pressors. Follow hemodynamics, fluids status. (3) Empyema of left pleural space: Imaging at time of admission demonstrated a left pleural effusion. Thoracic Surgery consulted. Pleural fluid from thoracentesis grew MRSA. Thoracoscopy and decortication recommended for complex empyema. Procedure performed by Dr. Miranda on 11/24. Chest tube removed 11/28. Patient had increased fluid drainage (12/05) from the chest tube site, will need to closely monitor, ask the nursing staff to notify me when occurs again - evaluated by CT surg., for poss. pleurex placement today (2/2) - decided to postpone and evaluate tomorrow (3/) (4) Septic arthritis of knee, left: Experienced pain and swelling of left knee. Seen in consultation by Orthopedics. Arthrocentesis on 11/22/2019 demonstrated 78,000 WBCs (88% polys). Cultures subsequently grew MRSA. Receiving IV antibiotics as discussed above. Arthroscopic incision and drainage performed 11/27. Further management per Orthopedics. (5) Urinary tract infection: Urine culture from 11/22/2019 grew E. coli and Klebsiella oxytoca. Received IV antibiotics. (6) Acute respiratory failure with hypoxia: Requiring supplemental oxygen for hypoxia. Wean O2 as tolerated. Continues to require 2L/min (7) Left rib fracture: Multiple left rib fractures due to recent fall. Analgesics PRN. Incentive spirometry. (8) Anastomotic ulcer S/P gastric bypass: Status post [place]-en-[place] gastric bypass years ago. History anastomotic ulcer. No gross GI bleeding. Continue PPI; resume sucralfate, misoprostol when able. (9) LFT elevation: At time of admission, total bilirubin 4.6, AST 128, ALT 56, alkaline phosphatase 181. Ultrasound of abdomen on 11/17 demonstrated hepatic steatosis, no significant ductal dilatation, surgical absence of gallbladder. CT performed on the same day showed similar findings. GI consulted. Liver profile 12/01 demonstrated total bilirubin 1.1, direct bilirubin 0.8, AST 57, ALT 39, alkaline phosphatase 217. Sepsis may have been contributing to hepatic dysfunction. Further evaluation/management per GI. (10) Hyponatremia: Serum sodium 132 at time of admission. Possible SIADH from pulmonary disease or SSRI. Resolved (11) Hypokalemia: Serum potassium at time of admission 2.6. Hypokalemia probably multifactorial-inadequate oral intake, GI loss, mineralocorticoid therapy could all be contributing factors. Replace and monitor (12) Hypomagnesemia: Serum magnesium 1.6 Replace and monitor (13) Diabetes mellitus type 2, controlled: Diabetes mellitus type 2, recently diet controlled. Hemoglobin A1c 4.9. Blood sugars fluctuating due to acute illness. Receiving Lantus/NovoLog. Loose stools - no blood noted - C. diff (12/06/2019) - negative - likely secondary to Abx use - will start probiotics, cont. to monitor (14) Anemia: Hemoglobin 10.5 at time of admission. Hemoglobin fell as low as 7.0. No gross GI bleeding. Serum iron 12, TIBC 70, transferrin 59, ferritin 385, B12 greater than 2000, folate 6.2, SPEP pending. Anemia probably multifactorial-possible blood loss from anastomotic ulcer and sepsis contributing factors. Has received 4 units of packed RBCs thus far. Hemoglobin 8 -9 (stable) Follow H&H. (15) Alcoholism: History of alcoholism. Denies recent consumption, though she apparently inadvertently ate some Jell-O shots around the time of admission. (16) Malnutrition: Cont. nutritional support (17) DVT prophylaxis: Enoxaparin. SCDs. Ambulate as able. (18) Discharge planning issues: Discharge disposition to be determined, plan for [facility] once medically stable Will likely need transition to rehab facility before returning home. Family Medicine follow-up with Dr. Quintanilla. Subjective Patient is lying in bed, in no acute distress, denies any fevers, chills, increased chest pain, shortness of breath, abdominal pain, nausea or vomiting. However she is still requiring suppl. O2, has worsening pleural effusion, that CT surgery is evaluating and planning possible Pleurx. She also has consistent mild epigastric discomfort/ acid reflux. C. diff - negative, loose stool likely secondary to Abx use - will start p robiotic Review of Systems Constitutional: + fatigue; no fever and no chills Ear, Nose, Mouth, Throat: + headache Respiratory: + cough (mild ); no dyspnea Gastrointestinal: + abdominal pain (some epigastric discomfort) and + diarrhea/loose stools; no nausea, no vomiting and no blood in stools Physical Exam Physical Exam: Constitutional: + ill appearing female lying in bed in no acute distress, on 2L of [place] ENMT: EOMI, PERRL, normal to inspection, anicteric sclerae Respiratory: Auscultation: + diffuse crackles, no accessory muscle use, poor air movement Cardiovascular: Rate/Rhythm: regular rate and regular rhythm Vessels: no JVD Extremities: normal capillary refill and + edema (bilateral upper extremity; 1+ pretibial); no calf tenderness Gastrointestinal (Abdomen): normal bowel sounds, soft, mildly tender to palp. in epigastric region, nondistended, no guarding Musculoskeletal: Extremities: + extremities abnormal to inspection (L knee without erythema or warmth; SCDs applied to RLE; waffle boots) Skin: no rashes, warm and dry Neuro/Psychiatric: Orientation: alert and oriented x3, no facial asymmetry, speech fluent, moves all extremities spontaneously Results & Data ([facility]) Vital Signs (Past 12 Hours) Vital Signs Temp Pulse Pulse Pulse Resp BP Pulse Ox 12/07/19 23:48 36.7 C 67 18 125/74 97 12/07/19 23:00 61 12/07/19 19:22 36.4 C L 63 18 126/71 98 (1) Left rib fracture Encounter type: initial encounter Fracture type: closed Rib fracture type: multiple ribs Qualified Code(s): S22.42XA - Multiple fractures of ribs, left side, initial encounter for closed fracture
[2019-12-08 06:59] LABS: Hemoglobin 8.1 g/dL (12.0-16.0); Mean Corpuscular Hemoglobin 31.6 pg (25-34); Mean Corpuscular Hgb Conc 32.4 g/dL (32-36); Mean Corpuscular Volume 97.7 fL (80-100); Mean Platelet Volume 9.1 fL (7.4-10.4); Platelet Count 259 K/uL (130-400); RDW Standard Deviation 64.4 fL (36.4-46.3); Red Blood Count 2.56 M/uL (4.2-5.4); White Blood Count 9.01 K/uL (4.8-10.8)
[2019-12-08] MEDS: LEVOTHYROXINE SODIUM 25 MCG TABLET PO SCH (07:07)
--- NOTE | 2019-12-08 07:15 | Hospitalist Progress Note ---
Date of Service December 08, 2019 Assessment & Plan (1) Gram positive sepsis: Presented with malaise, myalgias, nausea, vomiting. Afebrile at time of admission and white count was normal. Was not obviously septic, but was tachycardic and tachypneic and therefore, in retrospect, met criteria for severe sepsis per current CMS guidelines. Serum lactate was 1.9. Blood cultures were drawn and subsequently grew MRSA. Subsequently found to have MRSA empyema as well as MRSA septic arthritis of left knee. MRI of thoracic and lumbar spine did not show any apparent discitis, osteomyelitis, epidural abscess. Echocardiogram did not show any valvular vegetations. Started on IV vancomycin when positive blood cultures were reported. ID consulted. Source control of empyema and septic arthritis as discussed below. Repeat blood cultures on 11/18, 11/19, 11/20 were positive. Blood cultures from 11/24 remain negative. Antibiotic therapy IV vancomycin --> daptomycin --> ceftaroline. C-reactive protein 8.87 11/23 --> 2.10 12/02. Long course of parental IV antibiotic therapy anticipated. (2) Hypotension: Recent orthostatic hypotension, started on fludrocortisone prior to admission. Hypotensive at time of admission. Volume depletion considered, but sepsis probably a factor. Received IV fluids. Required pressor support after thoracoscopy and again after knee arthroscopy. Relative adrenal insufficiency, was receiving hydrocortisone as well as fludrocortisone, hydrocortisone stopped May have underlying autonomic neuropathy. Weaned off pressors. Follow hemodynamics, fluids status. (3) Empyema of left pleural space: Imaging at time of admission demonstrated a left pleural effusion. Thoracic Surgery consulted. Pleural fluid from thoracentesis grew MRSA. Thoracoscopy and decortication recommended for complex empyema. Procedure performed by Dr. Miranda on 11/24. Chest tube removed 11/28. Patient had increased fluid drainage (12/05) from the chest tube site - evaluated by CT surg., now s/p pleurex placement today (12/08/2019) (4) Septic arthritis of knee, left: Experienced pain and swelling of left knee. Seen in consultation by Orthopedics. Arthrocentesis on 11/22/2019 demonstrated 78,000 WBCs (88% polys). Cultures subsequently grew MRSA. Receiving IV antibiotics as discussed above. Arthroscopic incision and drainage performed 11/27. Further management per Orthopedics. (5) Urinary tract infection: Urine culture from 11/22/2019 grew E. coli and Klebsiella oxytoca. Received IV antibiotics. (6) Acute respiratory failure with hypoxia: Requiring supplemental oxygen for hypoxia. Wean O2 as tolerated. Continues to require 2L/min (7) Left rib fracture: Multiple left rib fractures due to recent fall. Analgesics PRN. Incentive spirometry. (8) Anastomotic ulcer S/P gastric bypass: Status post [place] gastric bypass years ago. History anastomotic ulcer. No gross GI bleeding. Continue PPI; resume sucralfate, misoprostol when able. (9) LFT elevation: At time of admission, total bilirubin 4.6, AST 128, ALT 56, alkaline phosphatase 181. Ultrasound of abdomen on 11/17 demonstrated hepatic steatosis, no significant ductal dilatation, surgical absence of gallbladder. CT performed on the same day showed similar findings. GI consulted. Liver profile 12/01 demonstrated total bilirubin 1.1, direct bilirubin 0.8, AST 57, ALT 39, alkaline phosphatase 217. Sepsis may have been contributing to hepatic dysfunction. Further evaluation/management per GI. (10) Hyponatremia: Serum sodium 132 at time of admission. Possible SIADH from pulmonary disease or SSRI. Resolved (11) Hypokalemia: Serum potassium at time of admission 2.6. Hypokalemia probably multifactorial-inadequate oral intake, GI loss, mineralocorticoid therapy could all be contributing factors. Replace and monitor (12) Hypomagnesemia: Serum magnesium 1.6 Replace and monitor (13) Diabetes mellitus type 2, controlled: Diabetes mellitus type 2, recently diet controlled. Hemoglobin A1c 4.9. Blood sugars fluctuating due to acute illness. Receiving Lantus/NovoLog. Loose stools - no blood noted - C. diff (12/06/2019) - negative - likely secondary to Abx use - started probiotics, cont. to monitor (14) Anemia: Hemoglobin 10.5 at time of admission. Hemoglobin fell as low as 7.0. No gross GI bleeding. Serum iron 12, TIBC 70, transferrin 59, ferritin 385, B12 greater than 2000, folate 6.2, SPEP pending. Anemia probably multifactorial-possible blood loss from anastomotic ulcer and sepsis contributing factors. Has received 4 units of packed RBCs thus far. Hemoglobin 8 -9 (stable) Follow H&H. (15) Alcoholism: History of alcoholism. Denies recent consumption, though she apparently inadvertently ate some Jell-O shots around the time of admission. (16) Malnutrition: Cont. nutritional support (17) DVT prophylaxis: Enoxaparin. SCDs. Ambulate as able. (18) Discharge planning issues: Discharge disposition to be determined, plan for [facility] once medically stable Will likely need transition to rehab facility before returning home. Family Medicine follow-up with Dr. Quintanilla. Subjective Patient is lying in bed, in no acute distress, denies any fevers, chills, increased chest pain, shortness of breath, abdominal pain, nausea or vomiting. Status post Pleurx placement by CT surgery today (12/09/2019). C. diff - negative, loose stool likely secondary to Abx use - started probiotic Review of Systems Constitutional: + fatigue; no fever and no chills Ear, Nose, Mouth, Throat: + headache Respiratory: + cough (mild ); no dyspnea Cardiovascular: no chest pain Gastrointestinal: + abdominal pain (some epigastric discomfort) and + diarr hea/loose stools; no nausea, no vomiting and no blood in stools Physical Exam Physical Exam: Constitutional: + ill appearing female lying in bed in no acute distress, on 2L of NC ENMT: EOMI, PERRL, normal to inspection, anicteric sclerae Respiratory: Auscultation: + diffuse crackles, no accessory muscle use Cardiovascular: Rate/Rhythm: regular rate and regular rhythm Vessels: no JVD Extremities: normal capillary refill and + edema (bilateral upper extremity; 1+ pretibial); no calf tenderness Gastrointestinal (Abdomen): normal bowel sounds, soft, mildly tender to palp. in epigastric region, nondistended, no guarding Musculoskeletal: Extremities: + extremities abnormal to inspection (L knee without erythema or warmth; SCDs applied to RLE; waffle boots) Skin: no rashes, warm and dry Neuro/Psychiatric: Orientation: alert and oriented x3, no facial asymmetry, speech fluent, moves all extremities spontaneously Results & Data ([facility]) Vital Signs (Past 12 Hours) Vital Signs Temp Pulse Pulse Pulse Resp BP Pulse Ox 12/08/19 07:12 36.3 C L 65 23 104/60 92 12/08/19 03:32 36.3 C L 67 18 112/66 97 12/07/19 23:48 36.7 C 67 18 125/74 97 12/07/19 23:00 61 12/07/19 19:22 36.4 C L 63 18 126/71 98 Laboratory Results 12/08/19 12/08/19 12/07/19 Range/Units 06:03 06:03 20:25 WBC 9.01 (4.8-10.8) K/uL RBC 2.56 L (4.2-5.4) M/uL Hgb 8.1 L (12.0-16.0) g/dL Hct 25.0 L (37-47) % MCV 97.7 (80-100) fL MCH 31.6 (25-34) pg MCHC 32.4 (32-36) g/dL RDW Std Deviation 64.4 H (36.4-46.3) fL RDW Coeff of Taye 18.0 H (11.5-14.5) % Plt Count 259 (130-400) K/uL MPV 9.1 (7.4-10.4) fL Sodium Pending Potassium Pending Chloride Pending Carbon Dioxide Pending Anion Gap Pending BUN Pending Creatinine Pending Est Cr Clr Drug Dosing Pending Est GFR ( Amer) Pending Est GFR (Non-Af Amer) Pending BUN/Creatinine Ratio Pending Glucose Pending POC Glucose 98 (70-99) mg/dl Calcium Pending Phosphorus Pending Magnesium Pending Stl C. diff Tox B Gene (Neg) 12/07/19 12/07/19 12/07/19 Range/Units 16:09 11:31 11:06 WBC (4.8-10.8) K/uL RBC (4.2-5.4) M/uL Hgb (12.0-16.0) g/dL Hct (37-47) % MCV (80-100) fL MCH (25-34) pg MCHC (32-36) g/dL RDW Std Deviation (36.4-46.3) fL RDW Coeff of Taye (11.5-14.5) % Plt Count (130-400) K/uL MPV (7.4-10.4) fL Sodium Potassium Chloride Carbon Dioxide Anion Gap BUN Creatinine Est Cr Clr Drug Dosing Est GFR ( Amer) Est GFR (Non-Af Amer) BUN/Creatinine Ratio Glucose POC Glucose 103 H 103 H (70-99) mg/dl Calcium Phosphorus Magnesium Stl C. diff Tox B Gene Negative Cdiff Gene (Neg) 12/07/19 Range/Units 07:10 WBC (4.8-10.8) K/uL RBC (4.2-5.4) M/uL Hgb (12.0-16.0) g/dL Hct (37-47) % MCV (80-100) fL MCH (25-34) pg MCHC (32-36) g/dL RDW Std Deviation (36.4-46.3) fL RDW Coeff of Taye (11.5-14.5) % Plt Count (130-400) K/uL MPV (7.4-10.4) fL Sodium Potassium Chloride Carbon Dioxide Anion Gap BUN Creatinine Est Cr Clr Drug Dosing Est GFR ( Amer) Est GFR (Non-Af Amer) BUN/Creatinine Ratio Glucose POC Glucose 105 H (70-99) mg/dl Calcium Phosphorus Magnesium Stl C. diff Tox B Gene (Neg) Medications Administered Current Inpatient Medications Acetaminophen (Tylenol) 650 mg PO Q4H PRN PRN Reason: Pain Stop: 01/01/20 16:11 Last Admin: 12/06/19 09:30 Dose: 650 mg Documented by: Albuterol (Duoneb) 3 ml NEB Q6RWA PRN PRN Reason: SOB, wheezing Stop: 01/06/20 19:47 Bisacodyl (Dulcolax) 10 mg [place] DAILY PRN PRN Reason: Constipation Stop: 12/27/19 17:01 Cyanocobalamin (Vitamin B-12) 500 mcg PO DAILY [facility] Stop: 12/17/19 08:59 Last Admin: 12/07/19 07:58 Dose: 500 mcg Documented by: Dextrose (Dextrose 50%) 25 - 50 ml IV UD PRN; Protocol PRN Reason: Hypoglycemia Protocol Stop: 12/17/19 17:30 Last Admin: 11/28/19 23:45 Dose: 25 ml Documented by: Docusate Sodium (Colace) 100 mg PO BID [facility] Stop: 12/24/19 20:59 Last Admin: 12/07/19 21:24 Dose: Not Given Documented by: Enoxaparin Sodium (Lovenox) 40 mg SQ QAM [facility] Stop: 12/25/19 09:29 Last Admin: 12/07/19 08:00 Dose: Not Given Documented by: Fludrocortisone Acetate (Florinef) 0.1 mg PO QAM [facility] Stop: 12/25/19 08:59 Last Admin: 12/07/19 07:58 Dose: 0.1 mg Documented by: Folic Acid (Folvite) 1 mg PO DAILY [facility] Stop: 12/17/19 08:59 Last Admin: 12/07/19 07:57 Dose: 1 mg Documented by: Gabapentin (Neurontin) 300 mg PO TID [facility] Stop: 12/17/19 08:59 Last Admin: 11/28/19 08:22 Dose: Not Given Documented by: Glucagon (Glucagen) 1 mg SQ UD PRN; Protocol PRN Reason: Hypoglycemia Protocol Stop: 12/17/19 17:30 Glucose (Dex4 Glucose) 4 - 8 tabs PO UD PRN; Protocol PRN Reason: Hypoglycemia Protocol Stop: 12/17/19 17:30 Glucose (Glucose 40%) 15 - 30 gm PO UD PRN; Protocol PRN Reason: Hypoglycemia Protocol Stop: 12/17/19 17:30 Heparin Sodium (Beef Lung) (Heparin Sod 10 Unit/Ml Flush) 5 ml FLUSH PRN PRN PRN Reason: Flush Stop: 01/04/20 07:53 Promethazine HCl 12.5 mg/ (Sodium Chloride) 50.5 mls @ 202 mls/hr IV Q6H PRN PRN Reason: Nausea And Vomiting Stop: 12/17/19 06:21 Last Infusion: 11/19/19 12:50 Dose: Infused Documented by: Ceftaroline Fosamil 600 mg/ (Sodium Chloride) 50 mls @ 50 mls/hr IV Q8H [facility]; Protocol Stop: 12/09/19 08:59 Last Infusion: 12/08/19 00:11 Dose: Infused Documented by: Furosemide 40 mg/ Syringe 4 mls @ 4 mls/min IV BID17 [facility] Stop: 01/05/20 15:59 Last Admin: 12/07/19 16:44 Dose: 4 mls/min Documented by: Insulin Aspart (Novolog Flexpen) 0 units SC ACHS [facility] Stop: 01/02/20 11:29 Last Admin: 12/07/19 21:25 Dose: Not Given Documented by: Lactobacillus Acidophilus (Floranex Granules/Powder Packet) 1 gm PO TIDM [facility] Stop: 01/07/20 07:59 Levothyroxine Sodium (Synthroid) 25 mcg PO DAILYBB [facility] Stop: 12/17/19 06:29 Last Admin: 12/08/19 07:07 Dose: Not Given Documented by: Linezolid (Zyvox) 600 mg PO BID [facility] Stop: 12/16/19 08:59 Magnesium Chloride (Slow-Mag) 64 mg PO BID [facility] Stop: 12/20/19 09:14 Last Admin: 12/07/19 21:26 Dose: Not Given Documented by: Megestrol Acetate (Megace) 400 mg PO BID [facility] Stop: 01/06/20 20:59 Last Admin: 12/07/19 21:25 Dose: Not Given Documented by: Metoclopramide HCl (Reglan) 10 mg IV Q6H PRN PRN Reason: Nausea And Vomiting Stop: 12/27/19 17:01 Last Admin: 12/03/19 07:20 Dose: 10 mg Documented by: Metoprolol Succinate (Toprol Xl) 12.5 mg PO BID [facility] Stop: 01/02/20 10:44 Last Admin: 12/07/19 21:26 Dose: Not Given Documented by: Miscellaneous (Carbohydrates For Hypoglycemia) 15 - 30 gm PO UD PRN PRN Reason: Hypoglycemia Protocol Stop: 12/17/19 17:30 Last Admin: 11/19/19 17:29 Dose: 30 gm Documented by: Misoprostol (Cytotec) 100 mcg PO QID [facility] Stop: 12/17/19 08:59 Last Admin: 12/07/19 21:24 Dose: Not Given Documented by: Multivitamins (Multivitamin Tab) 1 tab PO QAM [facility] Stop: 12/28/19 08:59 Last Admin: 12/07/19 09:00 Dose: 1 tab Documented by: Naloxone HCl (Narcan) 0.1 mg IV Q5M PRN PRN Reason: Oversedation/Resp Depression Stop: 12/27/19 17:01 Nitroglycerin (Nitrostat) 0.4 mg SL UD PRN PRN Reason: Chest Pain Stop: 12/17/19 06:21 Ondansetron HCl (Zofran) 4 mg IV Q6H PRN PRN Reason: Nausea And Vomiting Stop: 12/27/19 17:01 Last Admin: 12/03/19 05:14 Dose: 4 mg Documented by: Pantoprazole Sodium (Protonix) 40 mg PO BID [facility] Stop: 01/02/20 08:59 Last Admin: 12/07/19 21:26 Dose: Not Given Documented by: Potassium Chloride (Klor-Con M20) 40 meq PO BID [facility] Stop: 01/01/20 20:59 Last Admin: 12/07/19 21:25 Dose: Not Given Documented by: Sucralfate (Carafate) 1 gm PO QID [facility] Stop: 01/02/20 19:59 Last Admin: 12/07/19 21:24 Dose: Not Given Documented by: Thiamine HCl (Vitamin B-1) 100 mg PO QAM [facility] Stop: 12/17/19 08:59 Last Admin: 12/07/19 07:57 Dose: 100 mg Documented by: (1) Left rib fracture Encounter type: initial encounter Fracture type: closed Rib fracture type: multiple ribs Qualified Code(s): S22.42XA - Multiple fractures of ribs, left side, initial encounter for closed fracture
[2019-12-08 07:18] LABS: BUN Creatinine Ratio 13.2 (10-20); Calcium 7.7 mg/dl (8.5-10.1); Creatinine Clr Calc Pharmacy 59.6 ml/min; Est GFR (African American) 81.6; Est GFR (Non-African American) 70.4; Magnesium 1.8 mg/dl (1.8-2.4); Potassium 3.1 mmol/L (3.5-5.1)
[2019-12-08 07:27] LABS: Phosphorus 3.5 mg/dl (2.5-4.9)
--- NOTE | 2019-12-08 07:28 | XRay Report ---
XR chest 1V portable CLINICAL HISTORY: 63 years-old Female presenting with pleural effusion. TECHNIQUE: Portable upright AP view of the chest was obtained. COMPARISON: 12/06/2019. FINDINGS: Cardiac silhouette partially obscured along the left heart border due to the moderate to large left p leural effusion, which may be loculated. Small right pleural effusion also evident. Significant under lying prominence of pulmonary vasculature and lung markings bilaterally. There is added density of th e right lung on the current exam. No pneumothorax. The presence of underlying rib fractures is best a ppreciated on prior CT. External leads project over the right upper quadrant. A catheter terminates i n the region of the left axilla possibly representing a midline. IMPRESSION: 1. Increased density of the right lung raises concern for developing congestive change/early pulmona ry edema. 2. Slight interval increase in moderate to large left and small right pleural effusions. 3. Underlying rib fractures best appreciated on prior CT. No pneumothorax. ACT 112: Negative or not required by law. Electronically signed by: Eric Verduzco M.D. 12/08/2019 7:27 AM
[2019-12-08] MEDS ORDERED: LIDOCAINE HCL 1% 20 ML VIAL ONE (08:10)
[2019-12-08] MEDS: INSULIN ASPART 100 UNITS/ML 3 ML PEN SC SCH ×4 (08:35→21:32)
[2019-12-08] MEDS: LACTOBACILLUS ACIDOPHILUS 1 GM PACK PO SCH ×3 (08:36→16:41)
[2019-12-08] MEDS: CEFTAROLINE FOSAMIL ACETATE IV SCH ×3 (08:49→22:04)
[2019-12-08] MEDS: SODIUM CHLORIDE 0.9% IV SCH ×3 (08:49→22:04)
--- NOTE | 2019-12-08 08:50 | Operative Report ---
DATE OF OPERATION: 12/08/2019 REASON FOR PROCEDURE: Recurrent left pleural effusion. PROCEDURE: Insertion of left PleurX catheter. SURGEON: Alexander Miranda MD. [employer]ING AGENT: LINWOOD Atkinson ANESTHESIA: Local. SPECIFICS OF PROCEDURE: After appropriate consent had been obtained and we discussed this in detail with the patient. The patient was placed in the right lateral decubitus position. The left chest was evaluated using ultrasound. This showed a good window into the lateral base fluid. The patient was prepped and draped in usual sterile fashion. After appropriate timeout had been called, a 25-gauge needle, 1% Xylocaine without epinephrine was used to anesthetize skin and subcutaneous tissues. Large bore needle was used to anesthetize the deeper muscle tissues and pleura. We got free flowing fluid out. Syringe removed and a soft J-tipped guidewire placed through the needle and the needle removed. Approximately 10 cm anterior and a bit inferior to this, another skin wheal was raised with 25-gauge needle. 1 cm incisions were made at both skin wheals. A large needle was used to anesthetize the subcutaneous tissues connecting these 2 skin wheals with 1% Xylocaine without epinephrine. A tunneler was attached to the PleurX catheter and dragged from the anterior to posterior incision and then the tunneler was detached from the catheter. An introducer sheath with inner cannula was slid over the guidewire and the guidewire and inner cannula were removed. The PleurX catheter was inserted through the peel-away sheath which was peeled away and removed. Two separate 2-0 silk sutures were used to close the posterior incision. A 2-0 silk suture was used to anchor the catheter skin anteriorly. A 600 mL of serous fluid was drained. She tolerated it very well. Antimicrobial dressings were placed. Sterile cap was placed. Chest x-ray is pending. I attest to the content of the Intraoperative Record and any orders documented therein. Any exception s are noted below.
--- NOTE | 2019-12-08 09:16 | XRay Report ---
SINGLE VIEW CHEST CLINICAL HISTORY: Pleurx catheter placement. FINDINGS: An AP, portable, upright chest radiograph is compared to study performed earlier the same d ay 12/08/2019. Correlation is made with chest CT dated 12/06/2019. The examination is degraded by portabl e technique and patient rotation. The heart is top normal for projection noting atherosclerotic calc ification of the thoracic aorta. Pulmonary vascular congestion has improved. A pleural drain has been placed at the left lung base. The left pleural effusion has significantly decreased in size. Small r esidual pleural effusions are seen bilaterally with bibasilar consolidation. No pneumothorax is seen. The skeletal structures are osteopenic. There are healed right-sided rib fractures. IMPRESSION: 1. There a left pleural drain has been placed. The left pleural collection has significantly decrease d in size from previous. 2. No pneumothorax is identified post procedure. 3. Small residual pleural effusions and bibasilar consolidation. ACT 112: Negative or not required by law. Electronically signed by: Yury Brown M.D. 12/08/2019 9:15 AM
[2019-12-08 09:48] LABS: Total Protein Pleural Fluid 2.4 g/dl
[2019-12-08] MEDS: miSOPROStoL 100 MCG TAB PO SCH ×4 (10:15→22:06)
[2019-12-08] MEDS: METOPROLOL SUCC 25MG EXT REL TAB PO SCH ×2 (10:16→22:06)
[2019-12-08] MEDS: POTASSIUM CHLORIDE 20 MEQ TABCR PO SCH ×2 (10:17→22:06)
[2019-12-08] MEDS: FOLIC ACID 1 MG TAB PO SCH (10:17)
[2019-12-08] MEDS: MEGESTROL ACETATE SUSP 400 MG/10 ML UDC PO SCH ×2 (10:17→22:06)
[2019-12-08] MEDS: MULTIVITAMIN TAB PO SCH (10:18)
[2019-12-08] MEDS: DOCUSATE SODIUM 100 MG CAP PO SCH ×2 (10:18→22:05)
[2019-12-08] MEDS: THIAMINE HCL 100 MG TAB PO SCH (10:18)
[2019-12-08] MEDS: CYANOCOBALAMIN 500 MCG TABLET (VITAMIN B-12) PO SCH (10:18)
[2019-12-08] MEDS: FUROSEMIDE 40 MG in SYRINGE 0 ML IV SCH ×2 (10:19→16:50)
[2019-12-08] MEDS: MAGNESIUM CHLORIDE 64MG DELAYED REL TAB PO SCH ×2 (10:19→22:06)
[2019-12-08] MEDS: ENOXAPARIN INJ 40 MG/0.4 ML SYR SQ SCH (10:19)
[2019-12-08] MEDS: FLUDROCORTISONE ACETATE 0.1 MG TAB PO SCH (10:19)
[2019-12-08] MEDS: SUCRALFATE 1 GM/10 ML UDC PO SCH ×4 (10:20→22:05)
[2019-12-08] MEDS: PANTOprazole 40 MG TAB PO SCH ×2 (10:20→22:06)
[2019-12-08 10:34] LABS: Appearance Pleural Fluid BLOODY; Basophils, Fluid 1 %; Color Pleural Fluid AMBER; Eosinophils, Fluid 1 %; Lymphocytes, Fluid 27 %; Mono,Macrophage,Mesothelial 16 %; Neutrophils, Fluid 55 %; RBC Pleural Fluid (A) 47000 /uL; Source Pleural Fluid LEFT LUNG; WBC Pleural Fluid (A) 712 /uL
--- NOTE | 2019-12-08 14:29 | Psychiatric Consultation ---
Date of Consultation December 08, 2019 Impression / Recommendations Impression 63 yo female with worsening depression reactive to recent loss and extended confinement in the hospital. She denies SI and there is no indication for inpatient psychiatric hospitalization. (1) Major depression: Risks/benefits/alternatives reviewed with patient re: Remeron 7.5 mg po qhs starting dose given favorable side effect profile of improved appetite and sleep. Given current chest issues, co-admin with neurontin, and nortriptyline will defer order to primary team. Ideally would replace TCA due to risk of drug drug interactions and combined sedation. Risk Factors Assessment Do You Have Access To A Gun?: No Psych History Identifying Data 63 yo female admit 21 days ago with complex medical issues sepsis, bilateral emphysema, UTI with ARF, hypoxia/L rib fx, diabetes. Consult is for depression. Chief Complaint "Of course I'm depressed". History of Present Illness patient has exhibited worsening of mood during extended hospitalization with delayed/poor eye contact, tearfulness, hopelessness. She has repeatedly denied SI but is no eating or sleeping well. It is hard for her to concentrate and she feels more jittery due to anxiety. She feels overhwhelmed and SOB on a daily basis. There is some remote hx of [facility], otherwise no formal psych history other than therapy at [facility] 3 years ago. Meds are managed by Dr. Quintanilla and were verified by the [facility] pharmacy as last fill 06/18/19--Cymbalta 20 BID, nortriptyline 25 mg hs, gabapentin 300 mg TID. She is unsure why she stopped the medications but says they were for her mood. Past Psychiatric History Outpatient Services: no current Previous Psych Admissions: none Do You Have Access To A Gun?: No History of Previous Suicide Attempt: No Past Medication Trials: other antidepressants but unsure names, doesn't believe she's taken Remeron before. Allergies Allergy/AdvReac Type Severity Reaction Status Date / Time Sulfa (Sulfonamide Allergy Severe FACE/THROAT Verified 11/17/19 02:12 Antibiotics) SWELL UP Home Medications Home Medications Medication Instructions Recorded Confirmed Type cyanocobalamin (vitamin B-12) 500 mcg PO DAILY 08/16/19 11/17/19 History [Vitamin B-12] esomeprazole magnesium [Nexium] 40 mg PO DAILY 08/16/19 11/17/19 History folic acid 1 mg PO DAILY 08/16/19 11/17/19 History misoprostol [Cytotec] 100 mcg PO QID 08/16/19 11/17/19 History thiamine HCl (vitamin B1) [Vitamin 100 mg PO QAM #30 tab 08/22/19 11/17/19 Rx B-1] meclizine 25 mg PO Q8H PRN #30 tab 09/29/19 11/17/19 Rx duloxetine 30 mg PO BID 11/17/19 11/17/19 History fludrocortisone 0.1 mg PO DAILY 11/17/19 11/17/19 History gabapentin 300 mg PO TID 11/17/19 11/17/19 History levothyroxine 25 mcg PO DAILY 11/17/19 11/17/19 History nortriptyline 25 mg PO HS 11/17/19 11/17/19 History sucralfate 1 g PO ACHS 11/17/19 11/17/19 History Family History brother with D&A otherwise denies Substance Abuse History hx of heavy drinking up to 1 year ago Personal History Born In: [facility] Highest Grade Completed: High School Graduate ([employer]) Employment Status: Other (homemaker) Marital Status: Number Of Children: 2 Beliefs That Will Affect Care: None and Spiritual (Catholic) Psychological Trauma History Comment: daughter in law 3 weeks ago Patient History Medical History Acute alcohol abuse (Chronic) Alcohol abuse Alcoholism Anemia, iron deficiency (Chronic) Arthritis (Chronic) Bacteremia Diabetes mellitus type 2, controlled DVT prophylaxis Esophagus disorder Gram positive sepsis Hypokalemia Small bowel obstruction (Resolved) Ulcer GI Surgical History History of incision and drainage (08/18/19) Left Axillary Abscess Incision and Drainage Dr. Perdue 08/18/19 Status post appendectomy (Chronic) Status post cholecystectomy (Chronic) Status post gastric bypass for obesity (Chronic) Status post hysterectomy (Chronic) Family History Other No pertinent family history in first degree relatives Social History Preferred Language: Hungarian Communication Ability: Effective Resource Conservation Manager Required: No Beliefs That Will Affect Care: None marital status: Current Living Situation: Other Current Living Situation Comment: Friend Feels Safe at Home: Yes Safety Concerns: Feels Safe At This Time Smoking Status: Former smoker Tobacco Type: cigarettes ; Second Hand Exposure: Yes ; Hx Alcohol Use: Yes Alcohol type: beer and hard liquor Hx Substance Use: No Physical Exam Mental Examination: The patient presented as alert and cooperative. Eye contact was fair. No psychomotor restlessness but did exhibited retardation. Speech was nonspontaneous. Affect was mood congruent. The patients mood appeared depressed. Thought processes were clear, coherent without evidence of loose associations or flight of ideas. Thought content/perception was reality based without delusions. The patient denied suicidal and homicidal ideation. The patient denied hallucinations and did not appear to be responding to internal stimuli. Insight and Judgement were grossly intact. Vital Signs (Past 24 Hours): Last Vital Signs Temp 36.5 C 12/08/19 11:36 Pulse 64 12/08/19 11:36 Resp 17 12/08/19 11:36 BP 108/67 12/08/19 11:36 Pulse Ox 99 12/08/19 11:36 Review of Systems All systems reviewed & are unremarkable except as noted in HPI & below Results & Data (PSY) Medications Administered Acetaminophen (Tylenol) 650 mg PO Q4H PRN PRN Reason: Pain Stop: 01/01/20 16:11 Last Admin: 12/06/19 09:30 Dose: 650 mg Documented by: [id number] Admin: 12/04/19 21:42 Dose: 650 mg Documented by: [id number] Admin: 12/04/19 17:54 Dose: 650 mg Documented by: [id number] Cosigned by: [id number] Admin: 12/04/19 12:09 Dose: 650 mg Documented by: [id number] Cosigned by: [id number] Admin: 12/02/19 23:33 Dose: 650 mg Documented by: [id number] Cyanocobalamin (Vitamin B-12) 500 mcg PO DAILY BABAK Stop: 12/17/19 08:59 Last Admin: 12/08/19 10:18 Dose: 500 mcg Documented by: [id number] Admin: 12/07/19 07:58 Dose: 500 mcg Documented by: [id number] Admin: 12/06/19 09:31 Dose: 500 mcg Documented by: [id number] Admin: 12/05/19 08:40 Dose: 500 mcg Documented by: [id number] Admin: 12/04/19 08:39 Dose: 500 mcg Documented by: [id number] Admin: 12/03/19 11:39 Dose: 500 mcg Documented by: [id number] Admin: 11/28/19 08:22 Dose: Not Given Documented by: [id number] Admin: 11/27/19 10:59 Dose: Not Given Documented by: [id number] Admin: 11/26/19 08:21 Dose: 500 mcg Documented by: [id number] Admin: 11/25/19 08:20 Dose: 500 mcg Documented by: [id number] Admin: 11/24/19 08:28 Dose: Not Given Documented by: [id number] Admin: 11/23/19 08:38 Dose: 500 mcg Documented by: [id number] Admin: 11/22/19 08:45 Dose: 500 mcg Documented by: [id number] Admin: 11/21/19 07:59 Dose: 500 mcg Documented by: [id number] Admin: 11/20/19 08:02 Dose: 500 mcg Documented by: [id number] Admin: 11/19/19 07:58 Dose: 500 mcg Documented by: [id number] Admin: 11/18/19 08:39 Dose: 500 mcg Documented by: [id number] Admin: 11/17/19 07:40 Dose: 500 mcg Documented by: [id number] Dextrose (Dextrose 50%) 25 - 50 ml IV UD PRN; Protocol PRN Reason: Hypoglycemia Protocol Stop: 12/17/19 17:30 Last Admin: 11/28/19 23:45 Dose: 25 ml Documented by: [id number] Docusate Sodium (Colace) 100 mg PO BID BABAK Stop: 12/24/19 20:59 Last Admin: 12/08/19 10:18 Dose: 100 mg Documented by: [id number] Admin: 12/07/19 21:24 Dose: Not Given Documented by: [id number] Admin: 12/07/19 07:57 Dose: Not Given Documented by: [id number] Admin: 12/06/19 21:41 Dose: Not Given Documented by: [id number] Admin: 12/06/19 11:37 Dose: Not Given Documented by: [id number] Admin: 12/05/19 22:35 Dose: Not Given Documented by: [id number] Admin: 12/05/19 08:43 Dose: Not Given Documented by: [id number] Admin: 12/04/19 21:39 Dose: 100 mg Documented by: [id number] Admin: 12/04/19 08:42 Dose: 100 mg Documented by: [id number] Admin: 12/03/19 21:42 Dose: 100 mg Documented by: [id number] Admin: 11/28/19 08:18 Dose: Not Given Documented by: [id number] Admin: 11/27/19 19:18 Dose: Not Given Documented by: [id number] Admin: 11/27/19 10:11 Dose: 100 mg Documented by: [id number] Admin: 11/26/19 20:38 Dose: Not Given Documented by: [id number] Admin: 11/26/19 08:14 Dose: 100 mg Documented by: [id number] Admin: 11/25/19 20:15 Dose: 100 mg Documented by: [id number] Admin: 11/25/19 08:21 Dose: 100 mg Documented by: [id number] Admin: 11/24/19 20:55 Dose: 100 mg Documented by: [id number] Enoxaparin Sodium (Lovenox) 40 mg SQ QAM BABAK Stop: 12/25/19 09:29 Last Admin: 12/08/19 10:19 Dose: 40 mg Documented by: [id number] Admin: 12/07/19 08:00 Dose: Not Given Documented by: [id number] Admin: 12/06/19 09:32 Dose: 40 mg Documented by: [id number] Admin: 12/05/19 08:41 Dose: 40 mg Documented by: [id number] Admin: 12/04/19 08:42 Dose: 40 mg Documented by: [id number] Admin: 12/03/19 09:48 Dose: 40 mg Documented by: [id number] Admin: 12/02/19 08:52 Dose: 40 mg Documented by: [id number] Admin: 12/01/19 07:57 Dose: 40 mg Documented by: [id number] Admin: 11/30/19 07:52 Dose: 40 mg Documented by: [id number] Admin: 11/29/19 08:55 Dose: 40 mg Documented by: [id number] Admin: 11/28/19 09:02 Dose: 40 mg Documented by: [id number] Admin: 11/27/19 11:00 Dose: Not Given Documented by: [id number] Admin: 11/26/19 08:21 Dose: Not Given Documented by: [id number] Admin: 11/25/19 10:46 Dose: 40 mg Documented by: [id number] Fludrocortisone Acetate (Florinef) 0.1 mg PO QAM BABAK Stop: 12/25/19 08:59 Last Admin: 12/08/19 10:19 Dose: 0.1 mg Documented by: [id number] Admin: 12/07/19 07:58 Dose: 0.1 mg Documented by: [id number] Admin: 12/06/19 09:32 Dose: 0.1 mg Documented by: [id number] Admin: 12/05/19 08:39 Dose: 0.1 mg Documented by: [id number] Admin: 12/04/19 08:40 Dose: 0.1 mg Documented by: [id number] Admin: 12/03/19 11:39 Dose: 0.1 mg Documented by: [id number] Admin: 11/28/19 08:19 Dose: Not Given Documented by: [id number] Admin: 11/27/19 10:13 Dose: 0.1 mg Documented by: [id number] Admin: 11/26/19 08:15 Dose: 0.1 mg Documented by: [id number] Admin: 11/25/19 08:20 Dose: 0.1 mg Documented by: [id number] Folic Acid (Folvite) 1 mg PO DAILY BABAK Stop: 12/17/19 08:59 Last Admin: 12/08/19 10:17 Dose: 1 mg Documented by: [id number] Admin: 12/07/19 07:57 Dose: 1 mg Documented by: [id number] Admin: 12/06/19 09:32 Dose: 1 mg Documented by: [id number] Admin: 12/05/19 08:39 Dose: 1 mg Documented by: [id number] Admin: 12/04/19 08:39 Dose: 1 mg Documented by: [id number] Admin: 12/03/19 11:39 Dose: 1 mg Documented by: [id number] Admin: 11/27/19 10:13 Dose: 1 mg Documented by: [id number] Admin: 11/27/19 10:13 Dose: 1 mg Documented by: [id number] Admin: 11/26/19 08:14 Dose: 1 mg Documented by: [id number] Admin: 11/25/19 08:23 Dose: 1 mg Documented by: [id number] Admin: 11/24/19 08:27 Dose: Not Given Documented by: [id number] Admin: 11/23/19 08:39 Dose: 1 mg Documented by: [id number] Admin: 11/22/19 08:44 Dose: 1 mg Documented by: [id number] Admin: 11/21/19 07:59 Dose: 1 mg Documented by: [id number] Admin: 11/20/19 08:02 Dose: 1 mg Documented by: [id number] Admin: 11/19/19 07:59 Dose: 1 mg Documented by: [id number] Admin: 11/18/19 08:39 Dose: 1 mg Documented by: [id number] Admin: 11/17/19 07:40 Dose: 1 mg Documented by: [id number] Gabapentin (Neurontin) 300 mg PO TID BABAK Stop: 12/17/19 08:59 Last Admin: 11/28/19 08:22 Dose: Not Given Documented by: [id number] Admin: 11/27/19 19:19 Dose: Not Given Documented by: [id number] Admin: 11/27/19 14:23 Dose: Not Given Documented by: [id number] Admin: 11/27/19 10:13 Dose: 300 mg Documented by: [id number] Admin: 11/26/19 20:39 Dose: Not Given Documented by: [id number] Admin: 11/26/19 16:00 Dose: 300 mg Documented by: [id number] Admin: 11/26/19 08:14 Dose: 300 mg Documented by: [id number] Admin: 11/25/19 20:15 Dose: 300 mg Documented by: [id number] Admin: 11/25/19 12:27 Dose: 300 mg Documented by: [id number] Admin: 11/25/19 08:20 Dose: 300 mg Documented by: [id number] Admin: 11/24/19 20:58 Dose: 300 mg Documented by: [id number] Admin: 11/24/19 14:09 Dose: Not Given Documented by: [id number] Admin: 11/24/19 08:28 Dose: Not Given Documented by: [id number] Admin: 11/23/19 21:14 Dose: 300 mg Documented by: [id number] Admin: 11/23/19 13:58 Dose: 300 mg Documented by: [id number] Admin: 11/23/19 08:39 Dose: 300 mg Documented by: [id number] Admin: 11/22/19 21:16 Dose: 300 mg Documented by: [id number] Admin: 11/22/19 12:37 Dose: 300 mg Documented by: [id number] Admin: 11/22/19 08:44 Dose: 300 mg Documented by: [id number] Admin: 11/21/19 21:12 Dose: 300 mg Documented by: [id number] Admin: 11/21/19 13:02 Dose: 300 mg Documented by: [id number] Admin: 11/21/19 08:01 Dose: 300 mg Documented by: [id number] Admin: 11/20/19 21:10 Dose: 300 mg Documented by: [id number] Admin: 11/20/19 14:07 Dose: 300 mg Documented by: [id number] Admin: 11/20/19 08:02 Dose: 300 mg Documented by: [id number] Admin: 11/19/19 21:14 Dose: 300 mg Documented by: [id number] Admin: 11/19/19 12:35 Dose: 300 mg Documented by: [id number] Admin: 11/19/19 07:58 Dose: 300 mg Documented by: [id number] Admin: 11/18/19 20:34 Dose: 300 mg Documented by: [id number] Admin: 11/18/19 13:01 Dose: 300 mg Documented by: [id number] Admin: 11/18/19 08:42 Dose: 300 mg Documented by: [id number] Admin: 11/17/19 21:30 Dose: 300 mg Documented by: [id number] Admin: 11/17/19 14:01 Dose: 300 mg Documented by: [id number] Admin: 11/17/19 07:43 Dose: 300 mg Documented by: [id number] Promethazine HCl 12.5 mg/ (Sodium Chloride) 50.5 mls @ 202 mls/hr IV Q6H PRN PRN Reason: Nausea And Vomiting Stop: 12/17/19 06:21 Last Infusion: 11/19/19 12:50 Dose: 0 mls/hr Documented by: [id number] Admin: 11/19/19 12:34 Dose: 202 mls/hr Documented by: [id number] Ceftaroline Fosamil 600 mg/ (Sodium Chloride) 50 mls @ 50 mls/hr IV Q8H [facility]; Protocol Stop: 12/09/19 08:59 Last Infusion: 12/08/19 10:16 Dose: 0 mls/hr Documented by: [id number] Admin: 12/08/19 08:49 Dose: 50 mls/hr Documented by: [id number] Infusion: 12/08/19 00:11 Dose: 0 mls/hr Documented by: [id number] Admin: 12/07/19 23:10 Dose: 50 mls/hr Documented by: [id number] Infusion: 12/07/19 16:39 Dose: 0 mls/hr Documented by: [id number] Admin: 12/07/19 15:09 Dose: 50 mls/hr Documented by: [id number] Infusion: 12/07/19 08:54 Dose: 0 mls/hr Documented by: [id number] Admin: 12/07/19 07:54 Dose: 50 mls/hr Documented by: [id number] Infusion: 12/07/19 01:06 Dose: 0 mls/hr Documented by: [id number] Admin: 12/06/19 23:28 Dose: 50 mls/hr Documented by: [id number] Infusion: 12/06/19 15:50 Dose: 0 mls/hr Documented by: [id number] Admin: 12/06/19 14:44 Dose: 50 mls/hr Documented by: [id number] Infusion: 12/06/19 08:57 Dose: 0 mls/hr Documented by: [id number] Admin: 12/06/19 07:57 Dose: 50 mls/hr Documented by: [id number] Infusion: 12/06/19 01:34 Dose: 0 mls/hr Documented by: [id number] Admin: 12/05/19 22:34 Dose: 50 mls/hr Documented by: [id number] Infusion: 12/05/19 16:59 Dose: 0 mls/hr Documented by: [id number] Admin: 12/05/19 15:59 Dose: 50 mls/hr Documented by: [id number] Infusion: 12/05/19 07:34 Dose: 0 mls/hr Documented by: [id number] Admin: 12/05/19 06:34 Dose: 50 mls/hr Documented by: [id number] Infusion: 12/05/19 01:04 Dose: 0 mls/hr Documented by: [id number] Admin: 12/04/19 23:22 Dose: 50 mls/hr Documented by: [id number] Infusion: 12/04/19 16:40 Dose: 0 mls/hr Documented by: [id number] Cosigned by: [id number] Admin: 12/04/19 15:40 Dose: 50 mls/hr Documented by: [id number] Cosigned by: [id number] Infusion: 12/04/19 07:43 Dose: 0 mls/hr Documented by: [id number] Admin: 12/04/19 06:43 Dose: 50 mls/hr Documented by: [id number] Infusion: 12/04/19 01:42 Dose: 0 mls/hr Documented by: [id number] Admin: 12/03/19 23:50 Dose: 50 mls/hr Documented by: [id number] Infusion: 12/03/19 18:00 Dose: 0 mls/hr Documented by: [id number] Admin: 12/03/19 16:07 Dose: 50 mls/hr Documented by: [id number] Infusion: 12/03/19 08:20 Dose: 0 mls/hr Documented by: [id number] Admin: 12/03/19 07:19 Dose: 50 mls/hr Documented by: [id number] Furosemide 40 mg/ Syringe 4 mls @ 4 mls/min IV [id number] BABAK Stop: 01/05/20 15:59 Last Admin: 12/08/19 10:19 Dose: 4 mls/min Documented by: [id number] Admin: 12/07/19 16:44 Dose: 4 mls/min Documented by: [id number] Admin: 12/07/19 08:01 Dose: 4 mls/min Documented by: [id number] Admin: 12/06/19 16:17 Dose: 4 mls/min Documented by: [id number] Insulin Aspart (Novolog Flexpen) 0 units SC ACHS BABAK Stop: 01/02/20 11:29 Last Admin: 12/08/19 11:40 Dose: Not Given Documented by: [id number] Cosigned by: [id number] Admin: 12/08/19 08:35 Dose: Not Given Documented by: [id number] Cosigned by: [id number] Admin: 12/07/19 21:25 Dose: Not Given Documented by: [id number] Cosigned by: [id number] Admin: 12/07/19 16:40 Dose: Not Given Documented by: [id number] Cosigned by: [id number] Admin: 12/07/19 12:01 Dose: Not Given Documented by: [id number] Cosigned by: [id number] Admin: 12/07/19 07:56 Dose: Not Given Documented by: [id number] Cosigned by: [id number] Admin: 12/06/19 21:42 Dose: Not Given Documented by: [id number] Cosigned by: [id number] Admin: 12/06/19 16:19 Dose: Not Given Documented by: [id number] Cosigned by: [id number] Admin: 12/06/19 12:03 Dose: Not Given Documented by: [id number] Cosigned by: [id number] Admin: 12/06/19 08:02 Dose: Not Given Documented by: [id number] Cosigned by: [id number] Admin: 12/05/19 22:56 Dose: Not Given Documented by: [id number] Cosigned by: [id number] Admin: 12/05/19 17:44 Dose: Not Given Documented by: [id number] Cosigned by: [id number] Admin: 12/05/19 14:47 Dose: Not Given Documented by: [id number] Cosigned by: [id number] Admin: 12/05/19 08:42 Dose: Not Given Documented by: [id number] Cosigned by: [id number] Admin: 12/04/19 21:39 Dose: Not Given Documented by: [id number] Admin: 12/04/19 16:55 Dose: 1 units Documented by: [id number] Cosigned by: [id number] Admin: 12/04/19 12:05 Dose: Not Given Documented by: [id number] Cosigned by: [id number] Admin: 12/04/19 08:44 Dose: Not Given Documented by: [id number] Cosigned by: [id number] Admin: 12/03/19 20:34 Dose: Not Given Documented by: [id number] Cosigned by: [id number] Admin: 12/03/19 17:57 Dose: Not Given Documented by: [id number] Cosigned by: [id number] Admin: 12/03/19 11:56 Dose: 3 units Documented by: [id number] Cosigned by: [id number] Lactobacillus Acidophilus (Floranex Granules/Powder Packet) 1 gm PO TIDM BABAK Stop: 01/07/20 07:59 Last Admin: 12/08/19 11:41 Dose: Not Given Documented by: [id number] Admin: 12/08/19 08:36 Dose: Not Given Documented by: [id number] Levothyroxine Sodium (Synthroid) 25 mcg PO DAILYBB [facility] Stop: 12/17/19 06:29 Last Admin: 12/08/19 07:07 Dose: Not Given Documented by: [id number] Admin: 12/07/19 05:40 Dose: 25 mcg Documented by: [id number] Admin: 12/06/19 06:17 Dose: Not Given Documented by: [id number] Admin: 12/05/19 06:34 Dose: 25 mcg Documented by: [id number] Admin: 12/04/19 06:44 Dose: 25 mcg Documented by: [id number] Admin: 12/03/19 09:48 Dose: 25 mcg Documented by: [id number] Admin: 11/28/19 04:43 Dose: Not Given Documented by: [id number] Admin: 11/27/19 06:14 Dose: 25 mcg Documented by: [id number] Admin: 11/26/19 05:59 Dose: 25 mcg Documented by: [id number] Admin: 11/25/19 06:07 Dose: 25 mcg Documented by: [id number] Admin: 11/24/19 08:26 Dose: Not Given Documented by: [id number] Admin: 11/23/19 06:40 Dose: 25 mcg Documented by: [id number] Admin: 11/22/19 05:47 Dose: 25 mcg Documented by: [id number] Admin: 11/21/19 06:11 Dose: 25 mcg Documented by: [id number] Admin: 11/20/19 05:49 Dose: 25 mcg Documented by: [id number] Admin: 11/19/19 06:34 Dose: 25 mcg Documented by: [id number] Admin: 11/18/19 06:17 Dose: 25 mcg Documented by: [id number] Admin: 11/17/19 07:39 Dose: 25 mcg Documented by: [id number] Magnesium Chloride (Slow-Mag) 64 mg PO BID BABAK Stop: 12/20/19 09:14 Last Admin: 12/08/19 10:19 Dose: 64 mg Documented by: [id number] Admin: 12/07/19 21:26 Dose: Not Given Documented by: [id number] Admin: 12/07/19 07:58 Dose: 64 mg Documented by: [id number] Admin: 12/06/19 21:44 Dose: Not Given Documented by: [id number] Admin: 12/06/19 09:31 Dose: 64 mg Documented by: [id number] Admin: 12/05/19 22:58 Dose: Not Given Documented by: [id number] Admin: 12/05/19 08:40 Dose: 64 mg Documented by: [id number] Admin: 12/04/19 21:38 Dose: 64 mg Documented by: [id number] Admin: 12/04/19 08:42 Dose: 64 mg Documented by: [id number] Admin: 12/03/19 21:42 Dose: 64 mg Documented by: [id number] Admin: 11/28/19 08:22 Dose: Not Given Documented by: [id number] Admin: 11/27/19 19:20 Dose: Not Given Documented by: [id number] Admin: 11/27/19 10:19 Dose: 64 mg Documented by: [id number] Admin: 11/26/19 21:09 Dose: Not Given Documented by: [id number] Admin: 11/26/19 08:23 Dose: 64 mg Documented by: [id number] Admin: 11/25/19 20:28 Dose: 64 mg Documented by: [id number] Admin: 11/25/19 08:24 Dose: 64 mg Documented by: [id number] Admin: 11/24/19 21:03 Dose: 64 mg Documented by: [id number] Admin: 11/24/19 08:28 Dose: Not Given Documented by: [id number] Admin: 11/23/19 21:15 Dose: 64 mg Documented by: [id number] Admin: 11/23/19 08:37 Dose: 64 mg Documented by: [id number] Admin: 11/22/19 21:18 Dose: 64 mg Documented by: [id number] Admin: 11/22/19 08:45 Dose: 64 mg Documented by: [id number] Admin: 11/21/19 21:12 Dose: 64 mg Documented by: [id number] Admin: 11/21/19 08:00 Dose: 64 mg Documented by: [id number] Admin: 11/20/19 21:10 Dose: 64 mg Documented by: [id number] Admin: 11/20/19 10:15 Dose: 64 mg Documented by: [id number] Megestrol Acetate (Megace) 400 mg PO BID BABAK Stop: 01/06/20 20:59 Last Admin: 12/08/19 10:17 Dose: 400 mg Documented by: [id number] Admin: 12/07/19 21:25 Dose: Not Given Documented by: [id number] Metoclopramide HCl (Reglan) 10 mg IV Q6H PRN PRN Reason: Nausea And Vomiting Stop: 12/27/19 17:01 Last Admin: 12/03/19 07:20 Dose: 10 mg Documented by: [id number] Metoprolol Succinate (Toprol Xl) 12.5 mg PO BID [facility] Stop: 01/02/20 10:44 Last Admin: 12/08/19 10:16 Dose: 12.5 mg Documented by: [id number] Admin: 12/07/19 21:26 Dose: Not Given Documented by: [id number] Admin: 12/07/19 07:58 Dose: 12.5 mg Documented by: [id number] Admin: 12/06/19 21:45 Dose: Not Given Documented by: [id number] Admin: 12/06/19 09:31 Dose: 12.5 mg Documented by: [id number] Admin: 12/05/19 23:00 Dose: Not Given Documented by: [id number] Admin: 12/05/19 08:43 Dose: Not Given Documented by: [id number] Admin: 12/04/19 21:39 Dose: Not Given Documented by: [id number] Admin: 12/04/19 09:07 Dose: Not Given Documented by: [id number] Admin: 12/03/19 20:34 Dose: Not Given Documented by: [id number] Admin: 12/03/19 14:52 Dose: Not Given Documented by: [id number] Miscellaneous (Carbohydrates For Hypoglycemia) 15 - 30 gm PO UD PRN PRN Reason: Hypoglycemia Protocol Stop: 12/17/19 17:30 Last Admin: 11/19/19 17:29 Dose: 30 gm Documented by: [id number] Admin: 11/19/19 16:59 Dose: 30 gm Documented by: [id number] Misoprostol (Cytotec) 100 mcg PO QID [facility]ABAK Stop: 12/17/19 08:59 Last Admin: 12/08/19 13:04 Dose: Not Given Documented by: [id number] Admin: 12/08/19 10:15 Dose: 100 mcg Documented by: [id number] Admin: 12/07/19 21:24 Dose: Not Given Documented by: [id number] Admin: 12/07/19 16:45 Dose: 100 mcg Documented by: [id number] Admin: 12/07/19 13:02 Dose: 100 mcg Documented by: [id number] Admin: 12/07/19 07:59 Dose: 100 mcg Documented by: [id number] Admin: 12/06/19 21:41 Dose: Not Given Documented by: [id number] Admin: 12/06/19 16:18 Dose: 100 mcg Documented by: [id number] Admin: 12/06/19 13:09 Dose: 100 mcg Documented by: [id number] Admin: 12/06/19 09:31 Dose: 100 mcg Documented by: [id number] Admin: 12/05/19 22:48 Dose: Not Given Documented by: [id number] Admin: 12/05/19 17:57 Dose: 100 mcg Documented by: [id number] Admin: 12/05/19 14:24 Dose: 100 mcg Documented by: [id number] Admin: 12/05/19 08:38 Dose: 100 mcg Documented by: [id number] Admin: 12/04/19 21:37 Dose: 100 mcg Documented by: [id number] Admin: 12/04/19 18:37 Dose: Not Given Documented by: [id number] Admin: 12/04/19 18:07 Dose: 100 mcg Documented by: [id number] Admin: 12/04/19 11:57 Dose: 100 mcg Documented by: [id number] Cosigned by: [id number] Admin: 12/03/19 20:34 Dose: Not Given Documented by: [id number] Admin: 12/03/19 19:32 Dose: 100 mcg Documented by: [id number] Admin: 11/28/19 08:19 Dose: Not Given Documented by: [id number] Admin: 11/27/19 19:19 Dose: Not Given Documented by: [id number] Admin: 11/27/19 17:45 Dose: Not Given Documented by: [id number] Admin: 11/27/19 12:36 Dose: 100 mcg Documented by: [id number] Admin: 11/27/19 10:12 Dose: 100 mcg Documented by: [id number] Admin: 11/26/19 20:39 Dose: Not Given Documented by: [id number] Admin: 11/26/19 18:07 Dose: 100 mcg Documented by: [id number] Admin: 11/26/19 16:00 Dose: 100 mcg Documented by: [id number] Admin: 11/26/19 08:14 Dose: 100 mcg Documented by: [id number] Admin: 11/25/19 20:14 Dose: 100 mcg Documented by: [id number] Admin: 11/25/19 15:54 Dose: 100 mcg Documented by: [id number] Admin: 11/25/19 12:27 Dose: 100 mcg Documented by: [id number] Admin: 11/25/19 08:21 Dose: 100 mcg Documented by: [id number] Admin: 11/24/19 20:57 Dose: 100 mcg Documented by: [id number] Admin: 11/24/19 19:02 Dose: Not Given Documented by: [id number] Admin: 11/24/19 12:03 Dose: Not Given Documented by: [id number] Admin: 11/24/19 08:27 Dose: Not Given Documented by: [id number] Admin: 11/23/19 21:13 Dose: 100 mcg Documented by: [id number] Admin: 11/23/19 16:23 Dose: 100 mcg Documented by: [id number] Admin: 11/23/19 12:32 Dose: 100 mcg Documented by: [id number] Admin: 11/23/19 08:40 Dose: 100 mcg Documented by: [id number] Admin: 11/22/19 21:15 Dose: 100 mcg Documented by: [id number] Admin: 11/22/19 17:25 Dose: 100 mcg Documented by: [id number] Admin: 11/22/19 12:35 Dose: 100 mcg Documented by: [id number] Admin: 11/22/19 08:44 Dose: 100 mcg Documented by: [id number] Admin: 11/21/19 21:12 Dose: 100 mcg Documented by: [id number] Admin: 11/21/19 17:46 Dose: 100 mcg Documented by: [id number] Admin: 11/21/19 13:02 Dose: 100 mcg Documented by: [id number] Admin: 11/21/19 08:00 Dose: 100 mcg Documented by: [id number] Admin: 11/20/19 21:11 Dose: 100 mcg Documented by: [id number] Admin: 11/20/19 18:41 Dose: 100 mcg Documented by: [id number] Admin: 11/20/19 12:39 Dose: 100 mcg Documented by: [id number] Admin: 11/20/19 08:02 Dose: 100 mcg Documented by: [id number] Admin: 11/19/19 21:14 Dose: 100 mcg Documented by: [id number] Admin: 11/19/19 16:20 Dose: 100 mcg Documented by: [id number] Admin: 11/19/19 12:35 Dose: 100 mcg Documented by: [id number] Admin: 11/19/19 08:00 Dose: 100 mcg Documented by: [id number] Admin: 11/18/19 20:34 Dose: 100 mcg Documented by: [id number] Admin: 11/18/19 16:04 Dose: 100 mcg Documented by: [id number] Admin: 11/18/19 13:01 Dose: 100 mcg Documented by: [id number] Admin: 11/18/19 08:40 Dose: 100 mcg Documented by: [id number] Admin: 11/17/19 21:30 Dose: 100 mcg Documented by: [id number] Admin: 11/17/19 16:43 Dose: 100 mcg Documented by: [id number] Admin: 11/17/19 11:52 Dose: 100 mcg Documented by: [id number] Admin: 11/17/19 07:40 Dose: 100 mcg Documented by: [id number] Multivitamins (Multivitamin Tab) 1 tab PO QAM BABAK Stop: 12/28/19 08:59 Last Admin: 12/08/19 10:18 Dose: 1 tab Documented by: [id number] Admin: 12/07/19 09:00 Dose: 1 tab Documented by: [id number] Admin: 12/06/19 09:32 Dose: 1 tab Documented by: [id number] Admin: 12/05/19 08:38 Dose: 1 tab Documented by: [id number] Admin: 12/04/19 11:58 Dose: 1 tab Documented by: [id number] Cosigned by: [id number] Admin: 11/28/19 08:21 Dose: Not Given Documented by: [id number] Ondansetron HCl (Zofran) 4 mg IV Q6H PRN PRN Reason: Nausea And Vomiting Stop: 12/27/19 17:01 Last Admin: 12/03/19 05:14 Dose: 4 mg Documented by: [id number] Admin: 12/02/19 21:35 Dose: 4 mg Documented by: [id number] Admin: 12/02/19 17:01 Dose: 4 mg Documented by: [id number] Pantoprazole Sodium (Protonix) 40 mg PO BID BABAK Stop: 01/02/20 08:59 Last Admin: 12/08/19 10:20 Dose: 40 mg Documented by: [id number] Admin: 12/07/19 21:26 Dose: Not Given Documented by: [id number] Admin: 12/07/19 07:59 Dose: 40 mg Documented by: [id number] Admin: 12/06/19 21:44 Dose: Not Given Documented by: [id number] Admin: 12/06/19 09:31 Dose: 40 mg Documented by: [id number] Admin: 12/05/19 22:59 Dose: Not Given Documented by: [id number] Admin: 12/05/19 08:38 Dose: 40 mg Documented by: [id number] Admin: 12/04/19 21:38 Dose: 40 mg Documented by: [id number] Admin: 12/04/19 08:41 Dose: 40 mg Documented by: [id number] Admin: 12/03/19 20:35 Dose: 40 mg Documented by: [id number] Admin: 12/03/19 09:47 Dose: 40 mg Documented by: [id number] Potassium Chloride (Klor-Con M20) 40 meq PO BID BABAK Stop: 01/01/20 20:59 Last Admin: 12/08/19 10:17 Dose: 40 meq Documented by: [id number] Admin: 12/07/19 21:25 Dose: Not Given Documented by: [id number] Admin: 12/07/19 07:57 Dose: 40 meq Documented by: [id number] Admin: 12/06/19 21:42 Dose: Not Given Documented by: [id number] Admin: 12/06/19 09:31 Dose: 40 meq Documented by: [id number] Admin: 12/05/19 22:36 Dose: 20 meq Documented by: [id number] Admin: 12/05/19 08:39 Dose: 40 meq Documented by: [id number] Admin: 12/04/19 21:38 Dose: 40 meq Documented by: [id number] Admin: 12/04/19 08:41 Dose: 40 meq Documented by: [id number] Admin: 12/03/19 20:37 Dose: 40 meq Documented by: [id number] Admin: 12/03/19 09:49 Dose: 40 meq Documented by: [id number] Admin: 12/02/19 21:35 Dose: 40 meq Documented by: [id number] Sucralfate (Carafate) 1 gm PO QID BABAK Stop: 01/02/20 19:59 Last Admin: 12/08/19 13:04 Dose: Not Given Documented by: [id number] Admin: 12/08/19 10:20 Dose: 1 gm Documented by: [id number] Admin: 12/07/19 21:24 Dose: Not Given Documented by: [id number] Admin: 12/07/19 16:44 Dose: 1 gm Documented by: [id number] Admin: 12/07/19 13:02 Dose: 1 gm Documented by: [id number] Admin: 12/07/19 07:57 Dose: 1 gm Documented by: [id number] Admin: 12/06/19 21:41 Dose: Not Given Documented by: [id number] Admin: 12/06/19 16:18 Dose: 1 gm Documented by: [id number] Admin: 12/06/19 13:09 Dose: 1 gm Documented by: [id number] Admin: 12/06/19 09:33 Dose: 1 gm Documented by: [id number] Admin: 12/05/19 22:34 Dose: 1 gm Documented by: [id number] Admin: 12/05/19 17:57 Dose: 1 gm Documented by: [id number] Admin: 12/05/19 14:23 Dose: 1 gm Documented by: [id number] Admin: 12/05/19 08:37 Dose: 1 gm Documented by: [id number] Admin: 12/04/19 21:37 Dose: 1 gm Documented by: [id number] Admin: 12/04/19 17:59 Dose: 1 gm Documented by: [id number] Cosigned by: [id number] Admin: 12/04/19 14:25 Dose: 1 gm Documented by: [id number] Admin: 12/04/19 08:38 Dose: 1 gm Documented by: [id number] Admin: 12/03/19 20:24 Dose: 1 gm Documented by: [id number] Thiamine HCl (Vitamin B-1) [facility]: 12/17/19 08:59 Last Admin: 12/08/19 10:18 Dose: 100 mg Documented by: [id number] Admin: 12/07/19 07:57 Dose: 100 mg Documented by: [id number] Admin: 12/06/19 09:32 Dose: 100 mg Documented by: [id number] Admin: 12/05/19 08:40 Dose: 100 mg Documented by: [id number] Admin: 12/04/19 11:59 Dose: 100 mg Documented by: [id number] Cosigned by: [id number] Admin: 11/28/19 08:22 Dose: Not Given Documented by: [id number] Admin: 11/27/19 10:14 Dose: 100 mg Documented by: [id number] Admin: 11/26/19 08:21 Dose: 100 mg Documented by: [id number] Admin: 11/25/19 08:20 Dose: 100 mg Documented by: [id number] Admin: 11/24/19 08:28 Dose: Not Given Documented by: [id number] Admin: 11/23/19 08:38 Dose: 100 mg Documented by: [id number] Admin: 11/22/19 08:45 Dose: 100 mg Documented by: [id number] Admin: 11/21/19 08:00 Dose: 100 mg Documented by: [id number] Admin: 11/20/19 08:02 Dose: 100 mg Documented by: [id number] Admin: 11/19/19 07:59 Dose: 100 mg Documented by: [id number] Admin: 11/18/19 08:39 Dose: 100 mg Documented by: [id number] Admin: 11/17/19 07:39 Dose: 100 mg Documented by: [id number] Coding Level of Care Code 87705 [facility] Intl Hosp Care Lvl 2 Diagnoses Major depression F32.9
[2019-12-09 06:09] LABS: Hematocrit (blood only) 23.9 % (37-47); Hemoglobin 7.7 g/dL (12.0-16.0); Mean Corpuscular Hemoglobin 31.7 pg (25-34); Mean Corpuscular Hgb Conc 32.2 g/dL (32-36); Mean Corpuscular Volume 98.4 fL (80-100); Mean Platelet Volume 9.3 fL (7.4-10.4); Platelet Count 217 K/uL (130-400); RDW Coefficient of Variation 17.8 % (11.5-14.5); Red Blood Count 2.43 M/uL (4.2-5.4)
[2019-12-09 06:19] LABS: BUN Creatinine Ratio 15.5 (10-20); Calcium 7.3 mg/dl (8.5-10.1); Est GFR (African American) 88.9; Est GFR (Non-African American) 76.7; Potassium 2.8 mmol/L (3.5-5.1)
[2019-12-09] MEDS: SODIUM CHLORIDE 0.9% IV SCH (06:39)
[2019-12-09] MEDS: CEFTAROLINE FOSAMIL ACETATE IV SCH (06:39)
[2019-12-09] MEDS: LEVOTHYROXINE SODIUM 25 MCG TABLET PO SCH (06:39)
[2019-12-09] MEDS ORDERED: POTASSIUM CHLORIDE 20 MEQ TABCR PO STA (07:42)
[2019-12-09] MEDS: INSULIN ASPART 100 UNITS/ML 3 ML PEN SC SCH ×4 (07:47→21:02)
[2019-12-09] MEDS: METOPROLOL SUCC 25MG EXT REL TAB PO SCH ×2 (07:47→21:05)
[2019-12-09] MEDS: PANTOprazole 40 MG TAB PO SCH ×2 (07:48→21:05)
[2019-12-09] MEDS: MULTIVITAMIN TAB PO SCH (07:48)
[2019-12-09] MEDS: LACTOBACILLUS ACIDOPHILUS 1 GM PACK PO SCH ×3 (07:50→16:10)
[2019-12-09] MEDS: miSOPROStoL 100 MCG TAB PO SCH ×4 (07:50→21:03)
[2019-12-09] MEDS: ENOXAPARIN INJ 40 MG/0.4 ML SYR SQ SCH (07:50)
[2019-12-09] MEDS: FOLIC ACID 1 MG TAB PO SCH (07:50)
[2019-12-09] MEDS: MEGESTROL ACETATE SUSP 400 MG/10 ML UDC PO SCH ×2 (07:51→21:03)
[2019-12-09] MEDS: SUCRALFATE 1 GM/10 ML UDC PO SCH ×4 (07:51→21:02)
[2019-12-09] MEDS: THIAMINE HCL 100 MG TAB PO SCH (07:51)
[2019-12-09] MEDS: MAGNESIUM CHLORIDE 64MG DELAYED REL TAB PO SCH ×2 (07:51→21:06)
[2019-12-09] MEDS: FLUDROCORTISONE ACETATE 0.1 MG TAB PO SCH (07:51)
[2019-12-09] MEDS: DOCUSATE SODIUM 100 MG CAP PO SCH ×2 (07:59→21:04)
[2019-12-09] MEDS: POTASSIUM CHLORIDE / WTR 10 MEQ/100 ML PLCT IV SCH ×3 (08:04→10:08)
--- NOTE | 2019-12-09 08:30 | Surgery Progress Note ---
Date of Service December 09, 2019 Assessment & Plan (1) Empyema of left pleural space: -pt. is s/p LVATS with decortication -operative cultures grew MRSA -continue antibiotics as ordered -due to pleural effusion, left pleurex placed on 12/08/19 -thus far no organisms noted on cultures from this procedure -continue pleurex drainage daily Subjective Pt. notes that since yesterday's procedure her breathing feel "a little better." Physical Exam Constitutional: no acute distress Respiratory: normal respiratory effort; no respiratory distress and no labored breathing BS noted to be decreased at bases; no wheezing Neurologic: moves all extremities Psychiatric: A+Ox3, euthymic affect Results & Data Vital Signs (Past 12 Hours) Vital Signs Temp Pulse Pulse Pulse Resp BP Pulse Ox 12/09/19 07:16 36.3 C L 71 18 125/66 96 12/09/19 07:00 63 12/09/19 03:18 36.5 C 65 18 118/65 96 12/08/19 23:25 36.3 C L 66 18 112/65 96 12/08/19 23:00 61 PG Care Time/CCT Total # of Minutes Spent Total Time Spent with Patient: Total time spent is greater than 50% in coordination of care (as documented) at patient's floor/unit and/or counseling patient: Coding Level of Care Code None Diagnoses Empyema of left pleural space J86.9
[2019-12-09] MEDS ORDERED: LINEZOLID 600 MG/300 ML BAG IV SCH (09:00)
[2019-12-09] MEDS ORDERED: LINEZOLID 600 MG TAB PO SCH (09:00)
[2019-12-09] MEDS: FUROSEMIDE 40 MG in SYRINGE 0 ML IV SCH ×2 (09:04→16:10)
[2019-12-09] MEDS: POTASSIUM CHLORIDE 20 MEQ TABCR PO SCH ×2 (09:05→21:02)
[2019-12-09] MEDS: CYANOCOBALAMIN 500 MCG TABLET (VITAMIN B-12) PO SCH (09:05)
[2019-12-09] MEDS: CEFTAROLINE FOSAMIL ACETATE 600 MG in SODIUM CHLORIDE 0.9% 250 ML IV SCH (16:09)
[2019-12-09] MEDS: ACETAMINOPHEN 325 MG TAB PO PRN (21:20)
[2019-12-10] MEDS: LEVOTHYROXINE SODIUM 25 MCG TABLET PO SCH (05:00)
[2019-12-10] MEDS: CEFTAROLINE FOSAMIL ACETATE 600 MG in SODIUM CHLORIDE 0.9% 250 ML IV SCH ×2 (05:00→16:32)
[2019-12-10 06:07] LABS: Calcium 7.6 mg/dl (8.5-10.1); Creatinine Clr Calc Pharmacy 62.5 ml/min; Est GFR (African American) 86.3; Est GFR (Non-African American) 74.5; Potassium 3.2 mmol/L (3.5-5.1)
[2019-12-10] MEDS ORDERED: POTASSIUM CHLORIDE / WTR 20 MEQ/100 ML PLCT IV STA (06:20)
[2019-12-10] MEDS: POTASSIUM CHLORIDE / WTR 20 MEQ/100 ML PLCT IV SCH ×4 (06:32→12:38)
--- NOTE | 2019-12-10 06:52 | Hospitalist Progress Note ---
Date of Service December 09, 2019 Assessment & Plan (1) Gram positive sepsis: Presented with malaise, myalgias, nausea, vomiting. Afebrile at time of admission and white count was normal. Was not obviously septic, but was tachycardic and tachypneic and therefore, in retrospect, met criteria for severe sepsis per current CMS guidelines. Serum lactate was 1.9. Blood cultures were drawn and subsequently grew MRSA. Subsequently found to have MRSA empyema as well as MRSA septic arthritis of left knee. MRI of thoracic and lumbar spine did not show any apparent discitis, osteomyelitis, epidural abscess. Echocardiogram did not show any valvular vegetations. Started on IV vancomycin when positive blood cultures were reported. ID consulted. Source control of empyema and septic arthritis as discussed below. Repeat blood cultures on 11/18, 11/19, 11/20 were positive. Blood cultures from 11/24 remain negative. Antibiotic therapy IV vancomycin --> daptomycin --> ceftaroline. C-reactive protein 8.87 11/23 --> 2.10 12/02. Long course of parental IV antibiotic therapy anticipated. Discussed with ID, Dr. Lofton today (12/09/2019) - pt should not be switched to PO linezolid as previously anticipated by pulmonary. Pt will need to continue on IV antibiotics for 6 weeks from her negative blood cltx (11/24/2019). (2) Hypotension: Recent orthostatic hypotension, started on fludrocortisone prior to admission. Hypotensive at time of admission. Volume depletion considered, but sepsis probably a factor. Received IV fluids. Required pressor support after thoracoscopy and again after knee arthroscopy. Relative adrenal insufficiency, was receiving hydrocortisone as well as fludrocortisone, hydrocortisone stopped May have underlying autonomic neuropathy. Weaned off pressors. Follow hemodynamics, fluids status. (3) Empyema of left pleural space: Imaging at time of admission demonstrated a left pleural effusion. Thoracic Surgery consulted. Pleural fluid from thoracentesis grew MRSA. Thoracoscopy and decortication recommended for complex empyema. Procedure performed by Dr. Miranda on 11/24. Chest tube removed 11/28. Patient had increased fluid drainage (12/05) from the chest tube site - evaluated by CT surg., now s/p pleurex placement yesterday (12/08/2019) (4) Septic arthritis of knee, left: Experienced pain and swelling of left knee. Seen in consultation by Orthopedics. Arthrocentesis on 11/22/2019 demonstrated 78,000 WBCs (88% polys). Cultures subsequently grew MRSA. Receiving IV antibiotics as discussed above. Arthroscopic incision and drainage performed 11/27. Further management per Orthopedics. (5) Urinary tract infection: Urine culture from 11/22/2019 grew E. coli and Klebsiella oxytoca. Received IV antibiotics. (6) Acute respiratory failure with hypoxia: Requiring supplemental oxygen for hypoxia. Wean O2 as tolerated. Continues to require 2L/min (7) Left rib fracture: Multiple left rib fractures due to recent fall. Analgesics PRN. Incentive spirometry. (8) Anastomotic ulcer S/P gastric bypass: Status post [place]-en-Y gastric bypass years ago. History anastomotic ulcer. No gross GI bleeding. Continue PPI; resume sucralfate, misoprostol when able. (9) LFT elevation: At time of admission, total bilirubin 4.6, AST 128, ALT 56, alkaline phosphatase 181. Ultrasound of abdomen on 11/17 demonstrated hepatic steatosis, no significant ductal dilatation, surgical absence of gallbladder. CT performed on the same day showed similar findings. GI consulted. Liver profile 12/01 demonstrated total bilirubin 1.1, direct bilirubin 0.8, AST 57, ALT 39, alkaline phosphatase 217. Sepsis may have been contributing to hepatic dysfunction. Further evaluation/management per GI. (10) Hyponatremia: Serum sodium 132 at time of admission. Possible SIADH from pulmonary disease or SSRI. Resolved (11) Hypokalemia: Serum potassium at time of admission 2.6. Hypokalemia probably multifactorial-inadequate oral intake, GI loss, mineralocorticoid therapy could all be contributing factors. Replace and monitor (12) Hypomagnesemia: Serum magnesium 1.6 Replace and monitor (13) Diabetes mellitus type 2, controlled: Diabetes mellitus type 2, recently diet controlled. Hemoglobin A1c 4.9. Blood sugars fluctuating due to acute illness. Receiving Lantus/NovoLog. Loose stools - no blood noted - C. diff (12/06/2019) - negative - likely secondary to Abx use - started probiotics, cont. to monitor (14) Anemia: Hemoglobin 10.5 at time of admission. Hemoglobin fell as low as 7.0. No gross GI bleeding. Serum iron 12, TIBC 70, transferrin 59, ferritin 385, B12 greater than 2000, folate 6.2 Anemia probably multifactorial-possible blood loss from anastomotic ulcer and sepsis contributing factors. Has received 4 units of packed RBCs thus far. Hemoglobin 8 -9 (been relat. stable), but today less than 8, will need to closely monitor for poss. need for transfusion Follow H&H. (15) Alcoholism: History of alcoholism. Denies recent consumption, though she apparently inadvertently ate some Jell-O shots around the time of admission. (16) Malnutrition: Cont. nutritional support (17) DVT prophylaxis: Enoxaparin. SCDs. Ambulate as able. (18) Discharge planning issues: Discharge disposition to be determined, plan [facility] once medically stable Family Medicine follow-up with Dr. Quintanilla. Subjective Pt is lying in bed, in NAD. Continues to require suppl. O2. S/p pleurex placement yesterday. On ROS, "breathing is little better, otherwise everything is the same" Pt appears very withdrawn today. Review of Systems Review of Systems: All systems reviewed & are unremarkable except as noted in HPI & below Constitutional: + fatigue; no fever and no chills Ear, Nose, Mouth, Throat: + headache Respiratory: + cough (mild ); no dyspnea Gastrointestinal: + abdominal pain (some epigastric discomfort) and + diarrhea/loose stools; no nausea, no vomiting and no blood in stools Physical Exam Physical Exam: Constitutional: + ill appearing female lying in bed in no acute distress, on 2L of NC ENMT: EOMI, PERRL, normal to inspection, anicteric sclerae Respiratory: Auscultation: + diffuse crackles, no accessory muscle use Chest: L side- pleurex placed, clean dressings applied Cardiovascular: Rate/Rhythm: regular rate and regular rhythm Vessels: no JVD Extremities: normal capillary refill and + edema (bilateral upper extremity; 1+ pretibial); no calf tenderness Gastrointestinal (Abdomen): normal bowel sounds, soft, mildly tender to palp. in epigastric region, nondistended, no guarding Musculoskeletal: Extremities: + extremities abnormal to inspection (L knee without erythema or warmth; SCDs applied to RLE; waffle boots) Skin: no rashes, warm and dry Neuro/Psychiatric: Orientation: alert and oriented x3, no facial asymmetry, speech fluent, moves all extremities spontaneously Results & Data ([facility]) Vital Signs (Past 12 Hours) Vital Signs Temp Pulse Pulse Pulse Resp BP Pulse Ox 12/10/19 06:46 36.5 C 75 19 112/61 91 12/10/19 04:04 36.3 C L 68 19 122/71 97 12/09/19 23:36 36.7 C 68 18 110/70 96 12/09/19 23:00 70 12/09/19 21:07 76 100/65 12/09/19 19:34 36.7 C 70 20 129/76 99 Laboratory Results reviewed (1) Left rib fracture Encounter type: initial encounter Fracture type: closed Rib fracture type: multiple ribs Qualified Code(s): S22.42XA - Multiple fractures of ribs, left side, initial encounter for closed fracture
[2019-12-10] MEDS: MAGNESIUM CHLORIDE 64MG DELAYED REL TAB PO SCH ×2 (07:34→21:48)
[2019-12-10] MEDS: INSULIN ASPART 100 UNITS/ML 3 ML PEN SC SCH ×4 (07:34→20:45)
[2019-12-10] MEDS: THIAMINE HCL 100 MG TAB PO SCH (07:35)
[2019-12-10] MEDS: FLUDROCORTISONE ACETATE 0.1 MG TAB PO SCH (07:35)
[2019-12-10] MEDS: CYANOCOBALAMIN 500 MCG TABLET (VITAMIN B-12) PO SCH (07:35)
[2019-12-10] MEDS: MULTIVITAMIN TAB PO SCH (07:36)
[2019-12-10] MEDS: METOPROLOL SUCC 25MG EXT REL TAB PO SCH ×2 (07:36→21:45)
[2019-12-10] MEDS: miSOPROStoL 100 MCG TAB PO SCH ×4 (07:38→21:47)
[2019-12-10] MEDS: LACTOBACILLUS ACIDOPHILUS 1 GM PACK PO SCH ×3 (07:38→17:32)
[2019-12-10] MEDS: SUCRALFATE 1 GM/10 ML UDC PO SCH ×4 (07:38→21:46)
[2019-12-10] MEDS: MEGESTROL ACETATE SUSP 400 MG/10 ML UDC PO SCH ×2 (07:38→21:47)
[2019-12-10] MEDS: ENOXAPARIN INJ 40 MG/0.4 ML SYR SQ SCH (07:39)
[2019-12-10] MEDS: FOLIC ACID 1 MG TAB PO SCH (07:40)
[2019-12-10] MEDS: POTASSIUM CHLORIDE 20 MEQ TABCR PO SCH ×2 (07:40→21:47)
[2019-12-10] MEDS: PANTOprazole 40 MG TAB PO SCH ×2 (07:41→21:48)
[2019-12-10] MEDS: DOCUSATE SODIUM 100 MG CAP PO SCH ×2 (07:41→21:47)
[2019-12-10] MEDS: FUROSEMIDE 40 MG in SYRINGE 0 ML IV SCH ×3 (07:41→17:32)
--- NOTE | 2019-12-10 07:41 | Orthopedic Progress Note ---
Date of Service December 10, 2019 Assessment & Plan (1) Septic arthritis of knee, left: Postop day 5 s/p arthroscopic I+D Left knee POD#13 (2 week post op check) -ceftaroline per ID -DVT ppx: per medical team -WBAT LLE -Remove sutures, apply steri strips -PT/OT when medically stable -Trend inflammatory labs: today's labs pending Patient will need to follow up with Dr. Rodriguez 1-2 weeks after discharge. Subjective Post Operative Progress Note Patient seen sitting up in bed, comfortable, denies complaints, pain well controlled, no acute issues. Review of Systems Review of Systems: All systems reviewed & are unremarkable except as noted in HPI & below Constitutional: as per Subjective / HPI Physical Exam Physical Exam: LLE NVSI +EHL/FHL/TA/GS SILT grossly, +2 DP pulse, compartments soft NT, incision cdi, mild edema/effusion, no erryhema, decreased ROM without pain Constitutional: WD/WN, vitals as above Results & Data ([facility]) Vital Signs (Past 12 Hours) Vital Signs Temp Pulse Pulse Pulse Resp BP Pulse Ox 12/10/19 07:00 72 12/10/19 06:46 36.5 C 75 19 112/61 91 12/10/19 04:04 36.3 C L 68 19 122/71 97 12/09/19 23:36 36.7 C 68 18 110/70 96 12/09/19 23:00 70 12/09/19 21:07 76 100/65
--- NOTE | 2019-12-10 08:27 | XRay Report ---
XR chest 2V PA/lateral CLINICAL HISTORY: 63 years-old Female presenting with pleural effusion. TECHNIQUE: Portable upright AP view of the chest was obtained. COMPARISON: 12/08/2019. FINDINGS: Cardiomediastinal silhouette normal. 2 pleural drains remain in position at the periphery of the left midlung and left lung base. The left pleural thickening is again noted with persistent though decrea sed irregular linear opacities in the left lower lung. A trace right pleural effusion may also be pre sent. No pneumothorax. Mild interstitial prominence of the lungs. Persistent opacities in the periphe ry of the right midlung, unchanged. Multiple old posterior right rib fractures. Upper abdomen normal. IMPRESSION: 1. Slight interval decrease in left basilar infiltrates with the 2 left pleural drains unchanged in position. 2. No pneumothorax. 3. Trace right pleural effusion and peripheral right mid lung opacities unchanged. ACT 112: Negative or not required by law. Electronically signed by: Eric Verduzco M.D. 12/10/2019 8:26 AM
--- NOTE | 2019-12-10 11:22 | Hospitalist Progress Note ---
Date of Service December 10, 2019 Assessment & Plan (1) Gram positive sepsis: Presented with malaise, myalgias, nausea, vomiting. Afebrile at time of admission and white count was normal. Was not obviously septic, but was tachycardic and tachypneic and therefore, in retrospect, met criteria for severe sepsis per current CMS guidelines. Serum lactate was 1.9. Blood cultures were drawn and subsequently grew MRSA. Subsequently found to have MRSA empyema as well as MRSA septic arthritis of left knee. MRI of thoracic and lumbar spine did not show any apparent discitis, osteomyelitis, epidural abscess. Echocardiogram did not show any valvular vegetations. Started on IV vancomycin when positive blood cultures were reported. ID consulted. Source control of empyema and septic arthritis as discussed below. Repeat blood cultures on 11/18, 11/19, 11/20 were positive. Blood cultures from 11/24 remain negative. Antibiotic therapy IV vancomycin --> daptomycin --> ceftaroline. C-reactive protein 8.87 11/23 --> 2.10 12/02. Long course of parental IV antibiotic therapy anticipated. Discussed with ID, Dr. Lofton (12/09/2019) - pt should not be switched to PO linezolid as previously anticipated by pulmonary. Pt will need to continue on IV antibiotics for 6 weeks from her negative blood cltx (11/24/2019). (2) Hypotension: Recent orthostatic hypotension, started on fludrocortisone prior to admission. Hypotensive at time of admission. Volume depletion considered, but sepsis probably a factor. Received IV fluids. Required pressor support after thoracoscopy and again after knee arthroscopy. Relative adrenal insufficiency, was receiving hydrocortisone as well as fludrocortisone, hydrocortisone stopped May have underlying autonomic neuropathy. Weaned off pressors. Follow hemodynamics, fluids status. (3) Empyema of left pleural space: Imaging at time of admission demonstrated a left pleural effusion. Thoracic Surgery consulted. Pleural fluid from thoracentesis grew MRSA. Thoracoscopy and decortication recommended for complex empyema. Procedure performed by Dr. Miranda on 11/24. Chest tube removed 11/28. Patient had increased fluid drainage (12/05) from the chest tube site - evaluated by CT surg., now s/p pleurex placement yesterday (12/08/2019) (4) Septic arthritis of knee, left: Experienced pain and swelling of left knee. Seen in consultation by Orthopedics. Arthrocentesis on 11/22/2019 demonstrated 78,000 WBCs (88% polys). Cultures subsequently grew MRSA. Receiving IV antibiotics as discussed above. Arthroscopic incision and drainage performed 11/27. Further management per Orthopedics. (5) Urinary tract infection: Urine culture from 11/22/2019 grew E. coli and Klebsiella oxytoca. Received IV antibiotics. (6) Acute respiratory failure with hypoxia: Requiring supplemental oxygen for hypoxia. Wean O2 as tolerated. Continues to require 2L/min (7) Left rib fracture: Multiple left rib fractures due to recent fall. Analgesics PRN. Incentive spirometry. (8) Anastomotic ulcer S/P gastric bypass: Status post [place]-en-[place] gastric bypass years ago. History anastomotic ulcer. No gross GI bleeding. Continue PPI; resume sucralfate, misoprostol when able. (9) LFT elevation: At time of admission, total bilirubin 4.6, AST 128, ALT 56, alkaline phosphatase 181. Ultrasound of abdomen on 11/17 demonstrated hepatic steatosis, no significant ductal dilatation, surgical absence of gallbladder. CT performed on the same day showed similar findings. GI consulted. Liver profile 12/01 demonstrated total bilirubin 1.1, direct bilirubin 0.8, AST 57, ALT 39, alkaline phosphatase 217. Sepsis may have been contributing to hepatic dysfunction. Further evaluation/management per GI. (10) Hyponatremia: Serum sodium 132 at time of admission. Possible SIADH from pulmonary disease or SSRI. Resolved (11) Hypokalemia: Serum potassium at time of admission 2.6. Hypokalemia probably multifactorial-inadequate oral intake, GI loss, mineralocorticoid therapy could all be contributing factors. Replace and monitor (12) Hypomagnesemia: Serum magnesium 1.6 Replace and monitor (13) Diabetes mellitus type 2, controlled: Diabetes mellitus type 2, recently diet controlled. Hemoglobin A1c 4.9. Blood sugars fluctuating due to acute illness. Receiving Lantus/NovoLog. Loose stools - no blood noted - C. diff (12/06/2019) - negative - likely secondary to Abx use - started probiotics, cont. to monitor (14) Anemia: Hemoglobin 10.5 at time of admission. Hemoglobin fell as low as 7.0. No gross GI bleeding. Serum iron 12, TIBC 70, transferrin 59, ferritin 385, B12 greater than 2000, folate 6.2 Anemia probably multifactorial-possible blood loss from anastomotic ulcer and sepsis contributing factors. Has received 4 units of packed RBCs thus far. Hemoglobin 8 -9 (been relat. stable), but today less than 8, will need to closely monitor for poss. need for transfusion Follow H&H. (15) Alcoholism: History of alcoholism. Denies recent consumption, though she apparently inadvertently ate some Jell-O shots around the time of admission. (16) Malnutrition: Cont. nutritional support (17) DVT prophylaxis: Enoxaparin. SCDs. Ambulate as able. (18) Discharge planning issues: Discharge disposition to be determined, plan for [facility] once medically stable Family Medicine follow-up with Dr. Quintanilla. Labs Checked ROS-No Headache, No Visual Changes, No Nausea, No Vomiting, No Fever, No Chills, No Neck Pain or Stiffness, No Chest Pain, No Palpitations, + SOB, No ATKINSON, + Cough, No Sputum, No Wheezing, No Abdominal Pain, No Diarrhea, No Hematemesis, No Hemoptysis, No Unexpected Weight Loss, No Flank pain, No Melena, No Hematochezia, No Frequency, No Urgency, No Burning, No Hematuria, No Rashes, No Diaphoresis. Appetite is Normal Physical Exam Gen-AAO x 3, NAD, Afebrile, [place]-NCAT, EOMI, PERRLA, Anicteric Sclera, No Posterior Pharyngeal Erythema Neck-Supple, No JVD, No Thyromegaly, No Masses, No LAD, No Bruits Lungs-Coarse BS L, L Pleurex catheter Chest-No S4, +S1, +S2, No S3, No Murmurs, No Rubs, No Gallops, No Ectopy Abdomen-Soft, Bowel Sounds Present, Non Tender, Non Distended, No Hepatomegaly, No Splenomegaly, No Palpable Masses, No Rebound, No Rigidity, No Guarding Musculoskeletal-Full Range of Motion Bilaterally, No CVAT Extremities-No Cyanosis, No Clubbing, No Edema Nuero-Cranial Nerves II-XII grossly intact, Motor WNL, DTRs WNL, Strength WNL, Non Focal Psych-Normal Mood Results & Data ([facility]) Vital Signs (Past 12 Hours) Vital Signs Temp Pulse Pulse Pulse Resp BP Pulse Ox 12/10/19 10:47 36.3 C L 73 20 110/68 97 12/10/19 07:00 72 12/10/19 06:46 36.5 C 75 19 112/61 91 12/10/19 04:04 36.3 C L 68 19 122/71 97 12/09/19 23:36 36.7 C 68 18 110/70 96 (1) Left rib fracture Encounter type: initial encounter Fracture type: closed Rib fracture type: multiple ribs Qualified Code(s): S22.42XA - Multiple fractures of ribs, left side, initial encounter for closed fracture
--- NOTE | 2019-12-10 15:35 | Progress Note ---
DATE: 12/10/2019 Ms. Kelley was seen today. She looks a bit better to me. I think she is more interactive. She is eating better according to the nurses. She still is not eating nearly enough, however. On 2 liters she is 100% saturations. Her white count is not elevated. We are not growing anything from our fluid from her PleurX. We had an AP and lateral film today and quite frankly I am pleased with it. I do not think she has much fluid at all on the left side. She has a small amount on the right. We are draining very little from her pleural catheter. At this point, I would like to keep it in for another day or two; we may remove the PleurX.
[2019-12-11] MEDS: CEFTAROLINE FOSAMIL ACETATE 600 MG in SODIUM CHLORIDE 0.9% 250 ML IV SCH ×2 (04:00→16:53)
[2019-12-11] MEDS: LEVOTHYROXINE SODIUM 25 MCG TABLET PO SCH (05:53)
[2019-12-11 06:04] LABS: Hemoglobin 7.1 g/dL (12.0-16.0); Mean Corpuscular Hemoglobin 32.1 pg (25-34); Mean Corpuscular Hgb Conc 32.3 g/dL (32-36); Mean Corpuscular Volume 99.5 fL (80-100); Mean Platelet Volume 9.1 fL (7.4-10.4); Platelet Count 160 K/uL (130-400); RDW Coefficient of Variation 17.8 % (11.5-14.5); RDW Standard Deviation 64.4 fL (36.4-46.3); Red Blood Count 2.21 M/uL (4.2-5.4); White Blood Count 7.79 K/uL (4.8-10.8)
[2019-12-11 06:41] LABS: BUN Creatinine Ratio 10.4 (10-20); C Reactive Protein 4.41 mg/dl (0-0.29); Calcium 7.4 mg/dl (8.5-10.1); Creatinine Clr Calc Pharmacy 63.2 ml/min; Est GFR (African American) 87.6; Est GFR (Non-African American) 75.6; Potassium 3.2 mmol/L (3.5-5.1)
--- NOTE | 2019-12-11 07:36 | XRay Report ---
SINGLE VIEW CHEST CLINICAL HISTORY: Pleural effusion. FINDINGS: An AP, portable, upright chest radiograph is compared to study performed earlier the same d ay 12/10/2019. Correlation is made with chest CT dated 12/06/2019. The examination is degraded by portabl e technique and patient rotation. The heart is top normal for projection noting atherosclerotic calc ification of the thoracic aorta. Pulmonary vascular congestion persists. A pleural drain at the left lung base is unchanged in position. A small residual left pleural effusion with associated basilar co nsolidation is unchanged from yesterday there is likely trace residual right pleural effusion. No pne umothorax is seen. The skeletal structures are osteopenic. There are healed right-sided rib fractures . IMPRESSION: 1. A left pleural drain is unchanged in position. A small left pleural effusion with left basilar con solidation persists. 2. Cardiomegaly with mild pulmonary vascular congestion. ACT 112: Negative or not required by law. Electronically signed by: Yury Brown M.D. 12/11/2019 7:35 AM
[2019-12-11] MEDS: SUCRALFATE 1 GM/10 ML UDC PO SCH ×4 (08:48→20:32)
[2019-12-11] MEDS: FLUDROCORTISONE ACETATE 0.1 MG TAB PO SCH (08:48)
[2019-12-11] MEDS: FUROSEMIDE 40 MG in SYRINGE 0 ML IV SCH ×2 (08:48→16:56)
[2019-12-11] MEDS: MEGESTROL ACETATE SUSP 400 MG/10 ML UDC PO SCH ×2 (08:48→20:35)
[2019-12-11] MEDS: PANTOprazole 40 MG TAB PO SCH ×2 (08:49→20:35)
[2019-12-11] MEDS: miSOPROStoL 100 MCG TAB PO SCH ×4 (08:49→20:34)
[2019-12-11] MEDS: POTASSIUM CHLORIDE 20 MEQ TABCR PO SCH ×2 (08:50→20:35)
--- NOTE | 2019-12-11 08:56 | XRay Report ---
SINGLE VIEW CHEST CLINICAL HISTORY: Pleural drain removal. FINDINGS: An AP, portable, upright chest radiograph is compared to study performed earlier the same d ay 12/11/2019. Correlation is made with chest CT dated 12/06/2019. The examination is degraded by portabl e technique and patient rotation. The heart is top normal for projection noting atherosclerotic calc ification of the thoracic aorta. Pulmonary vascular congestion persists. A pleural drain at the left lung base has been removed. A small residual left pleural effusion with associated basilar consolidat ion is unchanged from yesterday. There is likely trace residual right pleural effusion. No pneumothor ax is seen. The skeletal structures are osteopenic. There are healed right-sided rib fractures. IMPRESSION: 1. A left pleural drain has been removed. A small left pleural effusion with left basilar consolidati on persists. 2. Cardiomegaly with mild pulmonary vascular congestion. ACT 112: Negative or not required by law. Electronically signed by: Yury Brown M.D. 12/11/2019 8:54 AM
[2019-12-11] MEDS: METOPROLOL SUCC 25MG EXT REL TAB PO SCH ×2 (08:57→20:33)
--- NOTE | 2019-12-11 09:12 | Progress Note ---
DATE: 12/11/2019 Ms. Kelley is draining very little from her chest tube. Her hemoglobin continues to drop, is down to 7.1 now. Hemodynamically, she has been fine and she has made good urine. I thought her x-ray today looked a bit better. At this point, I do not feel we need to keep her PleurX in. We will pull this out today. I would push on with antibiotics. She is markedly debilitated. [facility]
[2019-12-11] MEDS: FOLIC ACID 1 MG TAB PO SCH (10:41)
[2019-12-11] MEDS: INSULIN ASPART 100 UNITS/ML 3 ML PEN SC SCH ×4 (10:41→20:46)
[2019-12-11] MEDS: LACTOBACILLUS ACIDOPHILUS 1 GM PACK PO SCH ×3 (10:41→16:56)
[2019-12-11] MEDS: DOCUSATE SODIUM 100 MG CAP PO SCH ×2 (10:41→20:34)
[2019-12-11] MEDS: MULTIVITAMIN TAB PO SCH (10:41)
[2019-12-11] MEDS: MAGNESIUM CHLORIDE 64MG DELAYED REL TAB PO SCH ×2 (10:42→20:35)
[2019-12-11] MEDS: CYANOCOBALAMIN 500 MCG TABLET (VITAMIN B-12) PO SCH (10:42)
[2019-12-11] MEDS: THIAMINE HCL 100 MG TAB PO SCH (10:42)
[2019-12-11] MEDS: ENOXAPARIN INJ 40 MG/0.4 ML SYR SQ SCH (13:02)
--- NOTE | 2019-12-11 14:17 | Hospitalist Progress Note ---
Date of Service December 11, 2019 Assessment & Plan (1) Gram positive sepsis: Presented with malaise, myalgias, nausea, vomiting. Afebrile at time of admission and white count was normal. Was not obviously septic, but was tachycardic and tachypneic and therefore, in retrospect, met criteria for severe sepsis per current CMS guidelines. Serum lactate was 1.9. Blood cultures were drawn and subsequently grew MRSA. Subsequently found to have MRSA empyema as well as MRSA septic arthritis of left knee. MRI of thoracic and lumbar spine did not show any apparent discitis, osteomyelitis, epidural abscess. Echocardiogram did not show any valvular vegetations. Started on IV vancomycin when positive blood cultures were reported. ID consulted. Source control of empyema and septic arthritis as discussed below. Repeat blood cultures on 11/18, 11/19, 11/20 were positive. Blood cultures from 11/24 remain negative. Antibiotic therapy IV vancomycin --> daptomycin --> ceftaroline. C-reactive protein 8.87 11/23 --> 2.10 12/02. Long course of parental IV antibiotic therapy anticipated. Discussed with ID, Dr. Lofton (12/09/2019) - pt should not be switched to PO linezolid as previously anticipated by pulmonary. Pt will need to continue on IV antibiotics for 6 weeks from her negative blood cltx (11/24/2019). (2) Hypotension: Orthostatic hypotension, started on fludrocortisone prior to admission. Hypotensive at time of admission. Volume depletion considered, but sepsis probably a factor. Received IV fluids. Required pressor support after thoracoscopy and again after knee arthroscopy. Relative adrenal insufficiency, was receiving hydrocortisone as well as fludrocortisone, hydrocortisone stopped May have underlying autonomic neuropathy. (3) Empyema of left pleural space: Imaging at time of admission demonstrated a left pleural effusion. Thoracic Surgeryon case Pleural fluid from thoracentesis grew MRSA. Thoracoscopy and decortication recommended for complex empyema. Procedure performed by Dr. Miranda on 11/24. Chest tube removed 11/28. Patient had increased fluid drainage (12/05) from the chest tube site - evaluated by CT surg.,Pleurex placed (12/08/2019) and removed 12/11 (4) Septic arthritis of knee, left: Arthrocentesis on 11/22/2019 demonstrated 78,000 WBCs (88% polys). Cultures subsequently grew MRSA. Receiving IV antibiotics Arthroscopic incision and drainage performed 11/27. Further management per Orthopedics. (5) Urinary tract infection: Urine culture from 11/22/2019 grew E. coli and Klebsiella oxytoca. Received IV antibiotics. (6) Acute respiratory failure with hypoxia: Resolved (7) Left rib fracture: Multiple left rib fractures due to recent fall. Analgesics PRN. Incentive spirometry. (8) Anastomotic ulcer S/P gastric bypass: Status post [place] gastric bypass years ago. History anastomotic ulcer. No gross GI bleeding. Continue PPI; resume sucralfate, misoprostol when able. (9) LFT elevation: At time of admission, total bilirubin 4.6, AST 128, ALT 56, alkaline phosphatase 181. Ultrasound of abdomen on 11/17 demonstrated hepatic steatosis, no significant ductal dilatation, surgical absence of gallbladder. CT performed on the same day showed similar findings. GI consulted. Liver profile 12/01 demonstrated total bilirubin 1.1, direct bilirubin 0.8, AST 57, ALT 39, alkaline phosphatase 217. Sepsis may have been contributing to hepatic dysfunction. Further evaluation/management per GI. (10) Hyponatremia: Serum sodium 132 at time of admission. Possible SIADH from pulmonary disease or SSRI. Resolved (11) Hypokalemia: Serum potassium at time of admission 2.6. Today 3.2 and 20 meq iv ordered Hypokalemia probably multifactorial-inadequate oral intake, GI loss, mineralocorticoid therapy could all be contributing factors. Replace and monitor (12) Hypomagnesemia: Replace and monitor (13) Diabetes mellitus type 2, controlled: Diabetes mellitus type 2, recently diet controlled. Hemoglobin A1c 4.9. Blood sugars fluctuating due to acute illness. Receiving Lantus/NovoLog. Loose stools - no blood noted - C. diff (12/06/2019) - negative - likely secondary to Abx use - started probiotics, cont. to monitor (14) Anemia: Hemoglobin 10.5 at time of admission. Hemoglobin fell as low as 7.0. No gross GI bleeding. Serum iron 12, TIBC 70, transferrin 59, ferritin 385, B12 greater than 2000, folate 6.2 Anemia probably multifactorial-possible blood loss from anastomotic ulcer and sepsis contributing factors. Has received 4 units of packed RBCs thus far. Hemoglobin 7 today Follow H&H. (15) Alcoholism: History of alcoholism. Denies recent consumption, though she apparently inadvertently ate some Jell-O shots around the time of admission. (16) Malnutrition: Cont. nutritional support (17) DVT prophylaxis: Enoxaparin. SCDs. Ambulate as able. (18) Discharge planning issues: Discharge disposition to be determined, plan for [facility] once medically stable Family Medicine follow-up with Dr. Quintanilla. Labs Checked ROS-No Headache, No Visual Changes, No Nausea, No Vomiting, No Fever, No Chills, No Neck Pain or Stiffness, No Chest Pain, No Palpitations, + SOB, No ATKINSON, + Cough, No Sputum, No Wheezing, No Abdominal Pain, No Diarrhea, No Hematemesis, No Hemoptysis, No Unexpected Weight Loss, No Flank pain, No Melena, No Hematochezia, No Frequency, No Urgency, No Burning, No Hematuria, No Rashes, No Diaphoresis. Appetite is Normal Physical Exam Gen-AAO x 3, NAD, Afebrile, Pleasant Head-NCAT, EOMI, PERRLA, Anicteric Sclera, No Posterior Pharyngeal Erythema Neck-Supple, No JVD, No Thyromegaly, No Masses, No LAD, No Bruits Lungs-Coarse BS L, L Pleurex catheter Chest-No S4, +S1, +S2, No S3, No Murmurs, No Rubs, No Gallops, No Ectopy Abdomen-Soft, Bowel Sounds Present, Non Tender, Non Distended, No Hepatomegaly, No Splenomegaly, No Palpable Masses, No Rebound, No Rigidity, No Guarding Musculoskeletal-Full Range of Motion Bilaterally, No CVAT Extremities-No Cyanosis, No Clubbing, No Edema Nuero-Cranial Nerves II-XII grossly intact, Motor WNL, DTRs WNL, Strength WNL, Non Focal Psych-Normal Mood Results & Data ([facility]) Vital Signs (Past 12 Hours) Vital Signs Temp Pulse Pulse Pulse Resp BP Pulse Ox 12/11/19 11:07 36.5 C 71 20 130/65 100 12/11/19 08:00 70 12/11/19 06:57 36.4 C L 72 19 124/73 98 12/11/19 03:26 36.4 C L 82 22 121/72 98 (1) Left rib fracture Encounter type: initial encounter Fracture type: closed Rib fracture type: multiple ribs Qualified Code(s): S22.42XA - Multiple fractures of ribs, left side, initial encounter for closed fracture
[2019-12-11] MEDS: POTASSIUM CHLORIDE / WTR 10 MEQ/100 ML PLCT IV SCH ×2 (14:53→15:55)
[2019-12-11] MEDS: ONDANSETRON INJ 2 MG/ML 2 ML VIAL IV PRN (19:40)
[2019-12-12] MEDS: METOCLOPRAMIDE HCL INJ 5 MG/ML 2 ML VIAL IV PRN (00:03)
[2019-12-12] MEDS: CEFTAROLINE FOSAMIL ACETATE 600 MG in SODIUM CHLORIDE 0.9% 250 ML IV SCH ×2 (04:02→16:40)
[2019-12-12] MEDS: LEVOTHYROXINE SODIUM 25 MCG TABLET PO SCH (06:06)
[2019-12-12 06:41] LABS: Hemoglobin 7.5 g/dL (12.0-16.0); Mean Corpuscular Hemoglobin 32.5 pg (25-34); Mean Corpuscular Hgb Conc 32.6 g/dL (32-36); Mean Corpuscular Volume 99.6 fL (80-100); Platelet Count 172 K/uL (130-400); RDW Coefficient of Variation 17.2 % (11.5-14.5); RDW Standard Deviation 62.8 fL (36.4-46.3); Red Blood Count 2.31 M/uL (4.2-5.4); White Blood Count 7.56 K/uL (4.8-10.8)
[2019-12-12 07:13] LABS: BUN Creatinine Ratio 10.3 (10-20); Calcium 7.9 mg/dl (8.5-10.1); Creatinine Clr Calc Pharmacy 63.2 ml/min; Est GFR (African American) 87.6; Est GFR (Non-African American) 75.6; Potassium 3.1 mmol/L (3.5-5.1)
--- NOTE | 2019-12-12 08:31 | Internal Med Progress Note ---
Date of Service December 12, 2019 Assessment & Plan (1) Encounter for rehabilitation evaluation: She continues to gain ground clinically. When the hospitalist team is ready, I see no contraindications regarding transfer to the rehab hospital environment. She will continue to be monitored closely regarding volume status, pulmonary toilet and completion of antibiotics. The ID specialist recommendations regarding antibiotics noted. Given the severity of her illness and the nature of the organism isolated, IV course indicated per specialty orders. Subjective Follow-up today on medical progress and rehab hospital admission status. She continues to gain ground. No new medical targets today. She is comfortable and compensated today. We talked about a course of rehab. She is very interested. Review of hospitalist/cosmetic sales consultant notes indicates acute care needs are coming to an end, and a period of more robust therapy now required for additional recovery. Review of Systems Review of Systems: no new target Physical Exam Physical Exam: She is comfortable on RA No new neurological changes. Cardiopulmonary status is stable No GI concerns. No new orthopedics targets suggested Results & Data Vital Signs (Past 12 Hours) Vital Signs Temp Pulse Pulse Pulse Resp BP Pulse Ox 12/12/19 07:08 36.9 C 76 18 130/73 96 12/12/19 03:13 37.3 C 75 18 136/71 94 12/12/19 00:00 78 12/11/19 23:56 36.8 C 76 18 130/84 92 12/11/19 20:40 36.8 C 63 114/62 100
--- NOTE | 2019-12-12 09:22 | Surgery Progress Note ---
Date of Service December 12, 2019 Assessment & Plan (1) Empyema of left pleural space: -pt. is s/p LVATS with decortication and drainage of chest wall abscess on 11/24/19 -no malignancy noted on opertive specimens -operative cultures grew MRSA -continue antibiotics as ordered--currently ceftaroline -due to pleural effusion, left pleurex placed on 12/08/19 -no malignancy noted on fluid analysis -cultures remain (-) for growth from this procedure -as pleurex had minimal drainage, it was removed on 12/11/19 Subjective Pt. denies fevers, shakes, chills. She notes she s not SOB. No N/V or abdominal pain. Physical Exam Constitutional: no acute distress Neck: trachea midline Respiratory: normal respiratory effort; no respiratory distress and no labored breathing BS only with slight decreased component at bases Results & Data Vital Signs (Past 12 Hours) Vital Signs Temp Pulse Pulse Pulse Resp BP Pulse Ox 12/12/19 07:08 36.9 C 76 18 130/73 96 12/12/19 03:13 37.3 C 75 18 136/71 94 12/12/19 00:00 78 12/11/19 23:56 36.8 C 76 18 130/84 92 PG Care Time/CCT Total # of Minutes Spent Total Time Spent with Patient: Total time spent is greater than 50% in coordination of care (as documented) at patient's floor/unit and/or counseling patient: Coding Level of Care Code 94739 Subseq Hosp Care Lvl 1 Diagnoses Empyema of left pleural space J86.9
--- NOTE | 2019-12-12 10:31 | Discharge Summary ---
Date of Service December 12, 2019 Admission HPI Per Admitting Provider 63-year-old female with past medical history significant for hypertension; hyperlipidemia; type 2 diabetes, not on any medications; history of bariatric surgery; peptic ulcer disease; history of past alcohol abuse and tobacco abuse; mood disorder and chronic iron deficiency anemia, who lives with a friend, presents with ongoing nausea and vomiting since last Sunday evening. She is not able to take anything. Whatever she eats, she is vomiting and last 1 or 2 days, she is not able to take pills. On Sunday, a friend brought her July-Ashleigh, after eating it she felt more sick and found out it made of alcohol. She is falling frequently.. She usually walks with help of walker. She is having pain and tenderness all over the chest and the abdomen and for this reasons she came to the hospital. When she came in, her blood pressures was 87/55. On last admission, she was given Florinef for orthostatic hypotension, but the patient says she was taking that medication. With the fluids, her blood pressure improved. Has some headache. No blurred vision, no earache, no runny nose, no sore throat, no cough, no fever, no chills. Denies any chest pain, but she has shortness of breath on exertion. Vomited several times since last few days. No blood in the vomitus. Mild abdominal discomfort. Did not moved her bowels because she is not eating anything. Denies any blood in the stools. Not micturating much, but no pain when micturating, no blood in the urine. No rash, no swelling in the legs. Currently resting comfortably and hemodynamically stable. Denies any recent alcohol use except for the alcohol with the Marky a friend brought. Admission Exam Per Admitting Provider PHYSICAL EXAMINATION: GENERAL: The patient is frail, not in acute distress. VITAL SIGNS: Temperature 36.6, pulse 85, respiratory rate 20, blood pressure when she came in was 87/55 and currently 131/72, oxygen 96% on room air. HEENT: No pallor, mild icterus present. Atraumatic. NECK: No JVD, no neck masses, no carotid bruits. CARDIOVASCULAR: S1, S2 heard. Regular rate and rhythm. No murmur, no gallop. RESPIRATORY SYSTEM: Normal AP diameter. No accessory muscle use. No wheezing, no crackles. ABDOMEN: Soft, bowel sounds present. Mild discomfort. No guarding. No rigidity. No distention. CENTRAL NERVOUS SYSTEM: Cranial nerves II-XII grossly intact. Nonfocal. EXTREMITIES: No edema, no erythema. Principal Diagnosis Gram positive sepsis: Hypotension: Empyema of left pleural space: Septic arthritis of knee, left: Urinary tract infection: Acute respiratory failure with hypoxia: Left rib fracture: Anastomotic ulcer S/P gastric bypass: LFT elevation: Hyponatremia: Hypokalemia: Hypomagnesemia: Diabetes mellitus type 2, controlled: Alcoholism: Malnutrition: Discharge Exam Physical Exam Gen-AAO x 3, NAD, Afebrile Head-NCAT, EOMI, PERRLA, Anicteric Sclera, No Posterior Pharyngeal Erythema Neck-Supple, No JVD, No Thyromegaly, No Masses, No LAD, No Bruits Lungs-Clear to Auscultation Bilaterally, No Rales, No Rhonchi, No Wheezing, No Crepitus Chest-No S4, +S1, +S2, No S3, No Murmurs, No Rubs, No Gallops, No Ectopy Abdomen-Soft, Bowel Sounds Present, Non Tender, Non Distended, No Hepatomegaly, No Splenomegaly, No Palpable Masses, No Rebound, No Rigidity, No Guarding Musculoskeletal-Full Range of Motion Bilaterally, No CVAT Extremities-No Cyanosis, No Clubbing, No Edema Nuero-Cranial Nerves II-XII grossly intact, Motor WNL, DTRs WNL, Strength WNL, Non Focal Psych-Normal Mood Discharge Data Allergies Allergy/AdvReac Type Severity Reaction Status Date / Time Sulfa (Sulfonamide Allergy Severe FACE/THROAT Verified 11/17/19 02:12 Antibiotics) SWELL UP Consultations 11/17/19 04:26 ED Decision to Admit Stat 11/17/19 06:22 Consult Case Management - Discharge Planning Routine 11/17/19 08:29 Consult Gastroenterology Routine 11/18/19 08:00 Consult Infectious Diseases Routine 11/21/19 12:01 Consult Thoracic Surgery Routine 11/21/19 15:13 Consult Orthopedic Surgery Routine 11/24/19 16:27 Consult Regulatory Compliance Specialist Stat 11/27/19 17:02 Consult Case Management - Discharge Planning Routine 12/02/19 08:02 Consult Cardiology Routine 12/07/19 13:07 Consult Psychiatry Routine Procedures Performed Operation Date: 11/23/19 09:00 <No data on this case meets the specified criteria> Operation Date: 11/24/19 07:00 Actual Procedures p Left Thoracoscopy With Decortication(Left) - Alexander Miranda MD, FACS Operation Date: 11/26/19 11:30 <No data on this case meets the specified criteria> Operation Date: 11/27/19 13:25 Actual Procedures p Arthroscopy left knee incision and drainage with partial synovectomy.(Left) - Wilmer Rodriguez, Ordered Studies 11/17/19 02:57 CT abd pelvis IV con only Urgent CT chest w con Urgent 11/17/19 09:51 US abdomen limited Urgent 11/21/19 01:05 MR lumbar spine wo con Routine 11/21/19 01:06 MR thoracic spine wo con Routine 11/27/19 02:45 MR MRCP Routine 12/06/19 08:10 CT chest wo con Stat Current Diagnoses Other specified sepsis (11/17/19) Sepsis, unspecified organism (11/17/19) Anemia, unspecified (11/17/19) Type 2 diabetes mellitus without complications (11/17/19) Unspecified protein-calorie malnutrition (11/17/19) Other disorders of bilirubin metabolism (11/17/19) Hypomagnesemia (11/17/19) Hypo-osmolality and hyponatremia (11/17/19) Hypokalemia (11/17/19) Alcohol dependence, uncomplicated (11/17/19) Major depressive disorder, single episode, unspecified (11/17/19) Cardiomyopathy, unspecified (11/17/19) Hypotension, unspecified (11/17/19) Pyothorax without fistula (11/17/19) Pleural effusion, not elsewhere classified (11/17/19) Acute respiratory failure with hypoxia (11/17/19) Gastrojejunal ulcer, unspecified as acute or chronic, without hemorrhage or perforation (11/17/19) Pyogenic arthritis, unspecified (11/17/19) Effusion, left knee (11/17/19) Urinary tract infection, site not specified (11/17/19) Nausea with vomiting, unspecified (11/17/19) Diarrhea, unspecified (11/17/19) Severe sepsis with septic shock (11/17/19) Abnormal results of liver function studies (11/17/19) Multiple fractures of ribs, left side, initial encounter for closed fracture (11/17/19) Encounter for other preprocedural examination (11/17/19) Encounter for other specified special examinations (11/17/19) Encounter for administrative examinations, unspecified (11/17/19) Encounter for prophylactic measures, unspecified (11/17/19) Allergies Sulfa (Sulfonamide Antibiotics) Allergy (Severe, Verified 11/17/19 02:12) FACE/THROAT SWELL UP Height/Weight/Isolation Height 5 ft 5 in Weight 55.6 kg Isolation Type Contact Precautions Chemistry 12/11/19 12/12/19 05:44 06:33 Sodium 137 137 Potassium 3.2 L 3.1 L Chloride 101 101 Carbon Dioxide 32 29 Anion Gap 4.0 7.0 BUN 9 8 Creatinine 0.83 0.83 Glucose 100 H 88 Microbiology 12/08/19 Unknown Pleural Fluid Gram Stain - Final 12/08/19 Unknown Pleural Fluid Aerobic and Anaerobic Culture - Preliminary No growth to date. Hospital Course (1) Gram positive sepsis: Presented with malaise, myalgias, nausea, vomiting. Afebrile at time of admission and white count was normal. Was not obviously septic, but was tachycardic and tachypneic and therefore, in retrospect, met criteria for severe sepsis per current CMS guidelines. Serum lactate was 1.9. Blood cultures were drawn and subsequently grew MRSA. Subsequently found to have MRSA empyema as well as MRSA septic arthritis of left knee. MRI of thoracic and lumbar spine did not show any apparent discitis, osteomyelitis, epidural abscess. Echocardiogram did not show any valvular vegetations. Started on IV vancomycin when positive blood cultures were reported. ID consulted. Source control of empyema and septic arthritis as discussed below. Repeat blood cultures on 11/18, 11/19, 11/20 were positive. Blood cultures from 11/24 remain negative. Antibiotic therapy IV vancomycin --> daptomycin --> ceftaroline. C-reactive protein 8.87 11/23 --> 2.10 12/02. Long course of parental IV antibiotic therapy anticipated. Discussed with ID, Dr. Loftno (12/09/2019) - pt should not be switched to PO linezolid as previously anticipated by pulmonary. Pt will need to continue on IV antibiotics for 6 weeks from her negative blood cltx (11/24/2019). January 06, 2020 (2) Hypotension: Orthostatic hypotension, started on fludrocortisone prior to admission. Hypotensive at time of admission. Volume depletion considered, but sepsis probably a factor. Received IV fluids. Required pressor support after thoracoscopy and again after knee arthroscopy. Relative adrenal insufficiency, was receiving hydrocortisone as well as fludrocortisone, hydrocortisone stopped May have underlying autonomic neuropathy. (3) Empyema of left pleural space: Imaging at time of admission demonstrated a left pleural effusion. Thoracic Surgeryon case Pleural fluid from thoracentesis grew MRSA. Thoracoscopy and decortication recommended for complex empyema. Procedure performed by Dr. Miranda on 11/24. Chest tube removed 11/28. Patient had increased fluid drainage (12/05) from the chest tube site - evaluated by CT surg.,Pleurex placed (12/08/2019) and removed 12/11 (4) Septic arthritis of knee, left: Arthrocentesis on 11/22/2019 demonstrated 78,000 WBCs (88% polys). Cultures subsequently grew MRSA. Receiving IV antibiotics Arthroscopic incision and drainage performed 11/27. (5) Urinary tract infection: Urine culture from 11/22/2019 grew E. coli and Klebsiella oxytoca. Received IV antibiotics. (6) Acute respiratory failure with hypoxia: Resolved (7) Left rib fracture: Multiple left rib fractures due to recent fall. Analgesics PRN. Incentive spirometry. (8) Anastomotic ulcer S/P gastric bypass: Status post [place] gastric bypass years ago. History anastomotic ulcer. No gross GI bleeding. Continue PPI; resume sucralfate, misoprostol when able. (9) LFT elevation: At time of admission, total bilirubin 4.6, AST 128, ALT 56, alkaline phosphatase 181. Ultrasound of abdomen on 11/17 demonstrated hepatic steatosis, no significant ductal dilatation, surgical absence of gallbladder. CT performed on the same day showed similar findings. GI on case. Liver profile 12/01 demonstrated total bilirubin 1.1, direct bilirubin 0.8, AST 57, ALT 39, alkaline phosphatase 217. Sepsis may have been contributing to hepatic dysfunction. (10) Hyponatremia: Serum sodium 132 at time of admission. Possible SIADH from pulmonary disease or SSRI. Resolved (11) Hypokalemia: Serum potassium at time of admission 2.6. Today 3.1 and 40 meq iv ordered Hypokalemia probably multifactorial-inadequate oral intake, GI loss, mineralocorticoid therapy could all be contributing factors. Replace and monitor (12) Hypomagnesemia: Replace and monitor (13) Diabetes mellitus type 2, controlled: Diabetes mellitus type 2, recently diet controlled. Hemoglobin A1c 4.9. Blood sugars fluctuating due to acute illness. Receiving Lantus/NovoLog. Loose stools - no blood noted - C. diff (12/06/2019) - negative - likely secondary to Abx use - started probiotics, cont. to monitor (14) Anemia: Hemoglobin 10.5 at time of admission. Hemoglobin fell as low as 7.0. now rising 7.5 today on DC day No gross GI bleeding. Serum iron 12, TIBC 70, transferrin 59, ferritin 385, B12 greater than 2000, folate 6.2 Anemia probably multifactorial-possible blood loss from anastomotic ulcer and sepsis contributing factors. Has received 4 units of packed RBCs thus far. (15) Alcoholism: History of alcoholism. Denies recent consumption, though she apparently inadvertently ate some Jell-O shots around the time of admission. (16) Malnutrition: Cont. nutritional support (17) DVT prophylaxis: Enoxaparin. SCDs. Ambulate as able. (18) Discharge planning issues: Discharge disposition [facility]/rehab Family Medicine follow-up with Dr. Quintanilla. F/U c Dr Lofton, Ruth, Gilberto Cho, and John Total Time Total Time Spent Total Time Spent (In Minutes): 45 mins Total Time Includes: Examination of the Patient, Discharge Planning, Medication Reconciliation and Communication With Other Providers Discharge Plan Discharge Items Patient Disposition: Transfer Fdc Fac Reason For Visit: PAIN ALL OVER, FALL, N/V Discharge Diagnosis: Gram positive sepsis: Hypotension: Empyema of left pleural space: Septic arthritis of knee, left: Urinary tract infection: Acute respiratory failure with hypoxia: Left rib fracture: Anastomotic ulcer S/P gastric bypass: LFT elevation: Hyponatremia: Hypokalemia: Hypomagnesemia: Diabetes mellitus type 2, controlled: Alcoholism: Malnutrition Condition on Discharge: Good Health Concerns: Recurrence of effusion/empyema, Low K and Low Mag Activity: As commented below Activity Comment: Ad agustin Lifting: Gradually increase as tolerated Bathing: No limitations Sexual Activity: Wait until after follow-up appointment Exercise/Sports: Gradually increase as tolerated Driving/Machine Use: No limitations Weightbearing: Full weightbearing Non-emergency contact: Primary Care Provider, Surgeon and Specialist Call non-emergency contact if: you have any medication questions Follow-up/Referrals: Jelly Quintanilla DO [Primary Care Provider] - Michelle Lofton DO [Physician] - (2-3 weeks) Alexander Miranda MD, FACS [Surgeon] - (2-3 weeks) Wilmer Rodriguez DO [Physician] - (2-3 weeks) [facility] [Non-Staff] - 12/12/19 3:00 pm Diet: Carb Consistent or DM2 and Heart Healthy Addtl Attending Provider Instructions: ESR, CRP, CBC, CMP weekly Addtl Vending Machine Attendant Provider Instructions: ACTIVITY RECOMMENDATIONS: * You may walk on the leg with or without crutches as comfort permits. * Bending of the knee should start at once. * Do not shower for 48 hours following surgery. SPECIAL CARE INSTRUCTIONS: * You may cleanse the skin adjacent to the small wounds with soap and water at the time of the first dressing change. * The application of an ice bag to the front and sides of the knee will decrease swelling and discomfort for the first 48 hours. * The small incisions may be sore and develop bruising. This bruising does not require any special care. SPECIAL PRECAUTIONS: * If you experience unusual pain unrelieved by prescriptions, temperature elevation (100 degrees F. or above) or progressive swelling or bleeding, you should contact our office at for further evaluation. * You may have been prescribed pain medication. If you experience nausea and/or fine skin rash, discontinue this medication and contact our office at for an alternate medication. DRESSING: * Dressing should be comfortable and absorb any leakage of fluid and/or blood. * The dressing may become moist or bloodstained. * Dressing may be removed __ after surgery and bandaids placed over the small surgical incisions. If can be removed sooner if it becomes very s oiled or loose. * Bandaids may be used over next several days as needed and can be discontinued when there is not further drainage from the wounds. FOLLOW UP VISIT: If appointment is not already scheduled: Please call [facility] to make a follow-up appointment, 1-[address] Rodriguez for your surgery at . Pending Studies at Discharge: No Stand-Alone Forms: My [facility] Skilled Items Patient informed of condition?: Yes DNR: No Discharge Level of Care: Skilled Communicable Disease: Yes Discharge Prognosis: Improving Lines: Mid-Line Urinary Catheter: No Medications and DC Order Prescriptions: New acetaminophen [Mapap (acetaminophen)] 325 mg Tablet 650 mg PO Q4H PRN (Reason: fever or pain) Qty: 100 RF: 0 metoprolol succinate 25 mg Tablet Extended Release 24 Hr 12.5 mg PO BID Qty: 60 RF: 0 enoxaparin 40 mg/0.4 mL Syringe 40 mg subcut QAM Qty: 30 RF: 0 potassium chloride [Klor-Con M20] 20 mEq Tablet,Er Particles/Crystals 40 meq PO BID Qty: 60 RF: 0 bisacodyl [Laxative (bisacodyl)] 10 mg Suppository 10 mg HI DAILY PRN (Reason: constipation) Qty: 30 RF: 0 docusate sodium 100 mg Capsule 100 mg PO BID Qty: 60 RF: 0 magnesium chloride [Mag 64] 64 mg Tablet,Delayed Release (Dr/Ec) 64 mg PO BID Qty: 60 RF: 0 multivitamin [Daily-Satnam] Tablet 1 tab PO QAM Qty: 30 RF: 0 sucralfate 100 mg/mL Suspension 10 ml PO QID Qty: 1500 RF: 0 pantoprazole 40 mg Tablet,Delayed Release (Dr/Ec) 40 mg PO BID Qty: 60 RF: 0 Floranex 100 million cell Granules In Packet 1 g PO TIDM Qty: 60 RF: 0 ceftaroline fosamil 600 mg recon soln 600 mg IV Q12H Qty: 50 RF: 0 Continued thiamine HCl (vitamin B1) [Vitamin B-1] 100 mg Tablet 100 mg PO QAM Qty: 30 RF: 1 meclizine 25 mg Tablet 25 mg PO Q8H PRN (Reason: dizziness or vertigo) Qty: 30 RF: 0 esomeprazole magnesium [Nexium] 40 mg capsule,delayed release(DR/EC) 40 mg PO DAILY RF: 0 misoprostol [Cytotec] 100 mcg tablet 100 mcg PO QID RF: 0 levothyroxine 25 mcg tablet 25 mcg PO DAILY RF: 0 sucralfate 1 gram tablet 1 g PO ACHS RF: 0 nortriptyline 25 mg capsule 25 mg PO HS RF: 0 gabapentin 300 mg capsule 300 mg PO TID RF: 0 fludrocortisone 0.1 mg tablet 0.1 mg PO DAILY RF: 0 duloxetine 30 mg capsule,delayed release(DR/EC) 30 mg PO BID RF: 0 cyanocobalamin (vitamin B-12) [Vitamin B-12] 500 mcg Tablet 500 mcg PO DAILY Qty: 30 RF: 0 folic acid 1 mg Tablet 1 mg PO DAILY Qty: 30 RF: 0 Discharge Orders: Discharge Order (Routine); Ordered 12/12/19 Ordered By: Xavier Maurice Admission Data Admit Date/Time: 11/17/19 04:59 Attending Provider: Xaveir Maurice Admit Provider: Joe House Primary Care Provider: Jelly Quintanilla Other Providers: [facility] ; Xavier Maurice ; Joe House ; Samreen Pruitt ; Michelle Lofton ; Alexander Miranda ; Abdiel Mccurdy ; Gamaliel De Paz ; Rj Jackman ; Megan Mabry ; Vic Trammell ; Patsy Lind ; Eulogio Martin ; Konrad Moy ; Kieran Srinivasan ; Konrad Dai ; Ronan Stanley ; Kieran Vaughan ; Rishi Mcintyre ; Ammon Copeland ; Suman Crawford ; Eric Ramirez ; Paul Gayle ; Patsy Caal ; Wilmer Rodriguez ; Maurice Cat ; Kamaljit Noriega ; Abdiel Bergeron ; Edilberto Lee ; Freedom Hurt ; Ashlyn Ellison ; Matheus Smith ; Gerald Tran ; Boom Dao ; Faby Tatum ; Edilberto Wilder ; Jeri Brown ; Ness Tinsley ; Charlene Torrez ; Cristina Valadez ; Rishi Suggs I. ; Juanita Bustamante ; Lila Almaraz ; Azalia Katz ; Jhony Almeida.
[2019-12-12] MEDS: FUROSEMIDE 40 MG in SYRINGE 0 ML IV SCH ×2 (11:21→16:42)
[2019-12-12] MEDS: MEGESTROL ACETATE SUSP 400 MG/10 ML UDC PO SCH (11:21)
[2019-12-12] MEDS: SUCRALFATE 1 GM/10 ML UDC PO SCH ×3 (11:21→16:43)
[2019-12-12] MEDS: METOPROLOL SUCC 25MG EXT REL TAB PO SCH (11:23)
[2019-12-12] MEDS: miSOPROStoL 100 MCG TAB PO SCH ×3 (11:24→16:43)
[2019-12-12] MEDS: FOLIC ACID 1 MG TAB PO SCH (11:24)
[2019-12-12] MEDS: INSULIN ASPART 100 UNITS/ML 3 ML PEN SC SCH ×3 (12:26→16:48)
[2019-12-12] MEDS: THIAMINE HCL 100 MG TAB PO SCH (12:27)
[2019-12-12] MEDS: MAGNESIUM CHLORIDE 64MG DELAYED REL TAB PO SCH (12:27)
[2019-12-12] MEDS: CYANOCOBALAMIN 500 MCG TABLET (VITAMIN B-12) PO SCH (12:27)
[2019-12-12] MEDS: FLUDROCORTISONE ACETATE 0.1 MG TAB PO SCH (12:28)
[2019-12-12] MEDS: ENOXAPARIN INJ 40 MG/0.4 ML SYR SQ SCH (12:28)
[2019-12-12] MEDS: MULTIVITAMIN TAB PO SCH (12:28)
[2019-12-12] MEDS: DOCUSATE SODIUM 100 MG CAP PO SCH (12:28)
[2019-12-12] MEDS: POTASSIUM CHLORIDE 20 MEQ TABCR PO SCH (12:28)
[2019-12-12] MEDS: LACTOBACILLUS ACIDOPHILUS 1 GM PACK PO SCH ×3 (12:29→16:43)
[2019-12-12] MEDS: POTASSIUM CHLORIDE / WTR 10 MEQ/100 ML PLCT IV SCH ×4 (12:36→15:53)
[2019-12-12] MEDS: PANTOprazole 40 MG TAB PO SCH (12:36)
== END 2019-12-12 18:48 | DRG 853 ==
LOC: ED 01:48 → 2N 04:59 → SUATTDRO 04:59 → 2N 06:04 → 2W 11-18 23:40 → 1E 11-24 15:44 → 2S 12-03 15:06

== ENCOUNTER 2019-12-15 12:15 | Inpatient (IN) ==
[2019-12-15] MEDS ORDERED: ACETAMINOPHEN 325 MG TAB PO STA (12:49)
[2019-12-15] MEDS ORDERED: DiphenhydrAMINE HCL 50 MG/ML VIAL IV STA (12:49)
[2019-12-15] MEDS ORDERED: SODIUM CHLORIDE 0.9% 250 ML IV PRN (12:49)
[2019-12-15] MEDS ORDERED: SODIUM CHLORIDE 0.9% 500 ML IV SCH (13:00)
[2019-12-15 13:24] LABS: Basophils # (auto) 0.04 K/uL (0-0.2); Basophils % (auto) 0.8 %; Eosinophils # (auto) 0.22 K/uL (0-0.5); Eosinophils % (auto) 4.5 %; Hematocrit (blood only) 21.4 % (37-47); Hemoglobin 7.3 g/dL (12.0-16.0); Immature Granulocytes # (auto) 0.02 K/uL (0.00-0.02); Immature Granulocytes % (auto) 0.4 %; Lymphocytes # (auto) 0.84 K/uL (1.2-3.4); Lymphocytes % (auto) 17.2 %; Mean Corpuscular Hgb Conc 34.1 g/dL (32-36); Mean Corpuscular Volume 99.5 fL (80-100); Mean Platelet Volume 8.9 fL (7.4-10.4); Monocytes # (auto) 0.37 K/uL (0.11-0.59); Monocytes % (auto) 7.6 %; Neutrophils # (auto) 3.38 K/uL (1.4-6.5); Neutrophils % (auto) 69.5 %; Platelet Count 113 K/uL (130-400); RDW Coefficient of Variation 18.3 % (11.5-14.5); RDW Standard Deviation 65.2 fL (36.4-46.3); Red Blood Count 2.15 M/uL (4.2-5.4); White Blood Count 4.87 K/uL (4.8-10.8)
[2019-12-15] MEDS ORDERED: MoRPHine SULFATE 2 MG/ML CARP IV PRN (13:25)
[2019-12-15] MEDS ORDERED: ALUMINUM/MAGNESIUM SUSP 30 ML UDC PO PRN (13:25)
[2019-12-15] MEDS ORDERED: ACETAMINOPHEN 325 MG TAB PO PRN ×2 (13:25→14:55)
[2019-12-15] MEDS ORDERED: POLYETHYLENE (MIRALAX) 17 GM PACK PO PRN (13:25)
[2019-12-15] MEDS ORDERED: MAGNESIUM HYDROXIDE SUSP 30 ML UDC PO PRN (13:25)
[2019-12-15] MEDS ORDERED: ONDANSETRON INJ 2 MG/ML 2 ML VIAL IV PRN (13:25)
--- NOTE | 2019-12-15 13:40 | History & Physical Report ---
Date of Service December 15, 2019 Assessment & Plan (1) SOB (shortness of breath): (2) Anemia: (3) Weakness: (4) Chest pain, precordial: (5) Major depression: (6) Cardiomyopathy: (7) Malnutrition: (8) Anastomotic ulcer S/P gastric bypass: (9) Diabetes mellitus type 2, controlled: (10) Status post gastric bypass for obesity: s/p Gram Pos Sepsis, Septic Arthritis L Knee, Empyema and UTI last admission Admit inpatient, resume Ceftaroline, Transfuse Blood up to 10. Midodrine, Shannon x 3 for CP, Monitor daily labs, CRP, ESR, Call cards if Shannon positive. SSI Labs checked ROS-No Headache, No Visual Changes, No Nausea, No Vomiting, No Fever, No Chills, No Neck Pain or Stiffness, No Chest Pain, No Palpitations, + SOB, + ATKINSON, + Cough, No Sputum, No Wheezing, No Abdominal Pain, No Diarrhea, No Hematemesis, No Hemoptysis, No Unexpected Weight Loss, No Flank pain, No Melena, No Hemat ochezia, No Frequency, No Urgency, No Burning, No Hematuria, No Rashes, No Diaphoresis. Appetite is Normal Physical Exam Gen-AAO x 3, NAD, Afebrile, Pleasant, Weak Head-NCAT, EOMI, PERRLA, Anicteric Sclera, No Posterior Pharyngeal Erythema Neck-Supple, No JVD, No Thyromegaly, No Masses, No LAD, No Bruits Lungs-Coarse BS L, R Clear Chest-No S4, +S1, +S2, No S3, No Murmurs, No Rubs, No Gallops, No Ectopy Abdomen-Soft, Bowel Sounds Present, Non Tender, Non Distended, No Hepatomegaly, No Splenomegaly, No Palpable Masses, No Rebound, No Rigidity, No Guarding Musculoskeletal-Full Range of Motion Bilaterally, No CVAT Extremities-No Cyanosis, No Clubbing, No Edema Nuero-Cranial Nerves II-XII grossly intact, Motor WNL, DTRs WNL, Strength WNL, Non Focal Psych-Normal Mood History of Present Illness 63 year old female who presented to the Emergency Room 12/13 with complaints of constant weakness. She was transfused one unit of blood and returned to [facility]. She returns today weak, tired and hypotensive, Hb was 6.4 at [facility], she was unable to participate in rehab so was sent back to our ER. The patient states she is feeling SOB, dizzy, and lightheaded. She denies having bloody or black stools. She was heme neg in the ER on 12/13 and today. She states her bowel movements have been all liquid. She states she has been having chest pain. She is on Ceftaroline until 01/05. She states she has a history of a bleeding ulcer from a gastric bypass. She had an extended stay of 25 days for a Left Empyema for which a CTube and eventually a Pleurex Catheter was placed. ID and Thoracic Surgery were on the case and the pleurex catheter was removed prior to DC. She also had a septic knee on last admission and ortho. Primary Care Provider: Jelly Quintanilla DO Allergies Allergy/AdvReac Type Severity Reaction Status Date / Time Sulfa (Sulfonamide Allergy Severe FACE/THROAT Verified 12/15/19 12:44 Antibiotics) SWELL UP Home Medications Home Medications Medication Instructions Recorded Confirmed Type misoprostol [Cytotec] 100 mcg PO QID 08/16/19 12/15/19 History thiamine HCl (vitamin B1) [Vitamin 100 mg PO QAM #30 tab 08/22/19 12/15/19 Rx B-1] meclizine 25 mg PO Q8H PRN #30 tab 09/29/19 12/15/19 Rx fludrocortisone 0.1 mg PO QAM 11/17/19 12/15/19 History gabapentin 300 mg PO TID 11/17/19 12/15/19 History levothyroxine 25 mcg PO QAM 11/17/19 12/15/19 History nortriptyline 25 mg PO HS 11/17/19 12/15/19 History Lactobacillus acidoph-L.bulgar 1 g PO TIDM #60 ea 12/12/19 12/15/19 Rx [Floranex] acetaminophen [Mapap 650 mg PO Q4H PRN #100 tab 12/12/19 12/15/19 Rx (acetaminophen)] bisacodyl [Laxative (bisacodyl)] 10 mg AK DAILY PRN #30 ea 12/12/19 12/15/19 Rx ceftaroline fosamil 600 mg IV Q12H #50 ea 12/12/19 12/15/19 Rx magnesium chloride [Mag 64] 64 mg PO BID #60 tab 12/12/19 12/15/19 Rx metoprolol succinate 12.5 mg PO BID #60 tab 12/12/19 12/15/19 Rx pantoprazole 40 mg PO BID #60 tab 12/12/19 12/15/19 Rx cyanocobalamin (vitamin B-12) 500 mcg PO QAM 12/15/19 12/15/19 History [Vitamin B-12] docusate sodium 100 mg PO BID PRN 12/15/19 12/15/19 History enoxaparin [Lovenox] 40 mg SUBCUT QAM 12/15/19 12/15/19 History folic acid 1 mg PO QAM 12/15/19 12/15/19 History multivitamin [Daily-Satnam] 1 tab PO QDL 12/15/19 12/15/19 History potassium chloride [Klor-Con M20] 20 meq PO BID 12/15/19 12/15/19 History sucralfate 10 ml PO ACHS 12/15/19 12/15/19 History Past Med/Surg History Medical History Acute alcohol abuse (Chronic) Alcohol abuse Alcoholism Anemia, iron deficiency (Chronic) Arthritis (Chronic) Bacteremia Chest tube in place Diabetes mellitus type 2, controlled DVT prophylaxis Empyema Esophagus disorder Gram positive sepsis Hypokalemia Small bowel obstruction (Resolved) Ulcer GI Surgical History History of incision and drainage (08/18/19) Left Axillary Abscess Incision and Drainage Dr. Perdue 08/18/19 Status post appendectomy (Chronic) Status post cholecystectomy (Chronic) Status post gastric bypass for obesity (Chronic) Status post hysterectomy (Chronic) Family History Other No pertinent family history in first degree relatives Social History Preferred Language: Italian Communication Ability: Effective Photographers' Model Required: No Beliefs That Will Affect Care: None and Spiritual marital status: Current Living Situation: Rehab Current Living Situation Comment: [facility] Other Information That Helps Us Care for You: No Feels Safe at Home: Yes Safety Concerns: Feels Safe At This Time Smoking Status: Former smoker Tobacco Type: cigarettes ; Second Hand Exposure: Yes ; Hx Alcohol Use: Yes Alcohol type: beer and hard liquor Hx Substance Use: No Results & Data Vital Signs (Past 12 Hours) Vital Signs Temp Pulse Resp BP Pulse Ox 12/15/19 13:00 96 12/15/19 12:24 36.8 C 79 20 84/60 L 97 Code Status & VTE Plan VTE Prophylaxis Plan VTE Prophylaxis will be ordered: Yes (1) Anemia Anemia type: unspecified type Qualified Code(s): D64.9 - Anemia, unspecified
[2019-12-15 13:44] LABS: Alanine Aminotransferase 23 U/L (12-78); Albumin Globulin Ratio 0.4 (0.9-2); Albumin Level 1.7 gm/dl (3.4-5.0); Alkaline Phosphatase 132 U/L (45-117); Aspartate Aminotransferase 58 U/L (15-37); BUN Creatinine Ratio 13.4 (10-20); Bilirubin,Total 1.3 mg/dl (0.2-1); Blood Urea Nitrogen 12 mg/dl (7-18); C Reactive Protein 3.31 mg/dl (0-0.29); Calcium 7.7 mg/dl (8.5-10.1); Carbon Dioxide 24 mmol/L (21-32); Chloride 107 mmol/L (98-107); Est GFR (African American) 83.9; Est GFR (Non-African American) 72.4; Globulin 4.2 gm/dl (2.5-4.0); Glucose 113 mg/dl (70-99); Magnesium 1.8 mg/dl (1.8-2.4); Polychromasia 1+; Potassium 3.6 mmol/L (3.5-5.1); Sodium 137 mmol/L (136-145); Total Protein 5.9 gm/dl (6.4-8.2); Troponin I < 0.015 ng/ml (0-0.045)
--- NOTE | 2019-12-15 13:49 | Electrocardiogram Report ---
Test Reason : Blood Pressure : / mmHG Vent. Rate : 071 BPM Atrial Rate : 071 BPM P-R Int : 162 ms QRS Dur : 086 ms QT Int : 454 ms P-R-T Axes : 035 -29 232 degrees QTc Int : 493 ms Normal sinus rhythm Marked T wave abnormality, consider inferior ischemia Prolonged QT Abnormal ECG When compared with ECG of 13-DEC-2019 15:17, No significant change was found Confirmed by Ferny Law ([id number]) on 12/15/2019 1:49:03 PM Referred By: Confirmed By:Ferny Law
--- NOTE | 2019-12-15 13:57 | XRay Report ---
XR chest 1V portable CLINICAL HISTORY: weakness COMPARISON STUDY: December 13, 2019 FINDINGS: The heart is normal in size. The patient is rotated. There are old right-sided rib fracture s. There is no overt failure. There is blunting of both lateral costophrenic angle suggesting trace p leural effusions. There are left basilar opacity statistically atelectatic.[ IMPRESSION: 1. Left basilar opacities, likely atelectatic 2. Trace pleural effusions ACT 112: Negative or not required by law. Electronically signed by: Jevon Fitzpatrick M.D. 12/15/2019 1:56 PM
[2019-12-15] MEDS ORDERED: DOCUSATE SODIUM 100 MG CAP PO PRN (14:55)
[2019-12-15] MEDS ORDERED: DEXTROSE 50% 50 ML SYRINGE IV PRN (14:55)
[2019-12-15] MEDS ORDERED: CARBOHYDRATES FOR HYPOGLYCEMIA PO PRN (14:55)
[2019-12-15] MEDS ORDERED: GLUCOSE 40% GEL 15 GM TUBE PO PRN (14:55)
[2019-12-15] MEDS ORDERED: bisacodyL 10 MG SUPP PR PRN (14:55)
[2019-12-15] MEDS ORDERED: GLUCOSE 10 TABS/TUBE PO PRN (14:55)
[2019-12-15] MEDS ORDERED: PHARMACY GLYCEMIC MGMT CONSULT PRN (14:55)
[2019-12-15] MEDS ORDERED: MECLIZINE HCL 25 MG TAB PO PRN (14:55)
[2019-12-15] MEDS ORDERED: CEFTAROLINE FOSAMIL IV SCH (14:55)
[2019-12-15] MEDS ORDERED: GLUCAGON FOR INJ 1 MG VIAL SQ PRN (14:55)
[2019-12-15] MEDS: SODIUM CHLORIDE 0.9% 1000ML 1,000 ML IV SCH ×2 (14:59→22:46)
--- NOTE | 2019-12-15 15:38 | Pharmacy Report ---
Glycemic Control Consultation - Date of Service December 15, 2019 - Scope Scope: Glycemic Pharmacist consulted by Dr [] on [date] for glycemic control and to write orders per [facility] inpatient glycemic control protocol - Objective Weight: 60 kg Accuchecks BSG (last 24hrs): 12/15/19 12:54 Glucose 113 H Laboratory Data (last 24hrs): 12/15/19 12:54 Potassium 3.6 Carbon Dioxide 24 Anion Gap 6.0 Creatinine 0.86 Est Cr Clr Drug Dosing Not Reportable - Recent Pertinent Medications Outpatient Anti-diabetic Regimen: * N/A * A1c = 4.9 % 11/2019 Risk Factors for Insulin Resistance: * Infection: Ceftaroline * Diet: T2DM - Assessment & Plan Assessment & Plan: ASSESSMENT: * Ms Kelley is a 63 y/o F admitted with weakness. During her previous hospitalization she was a glycemic control patient that pharmacy signed off care. Patient required only Novolog with CF, no CR. This is typically not done but almost all blood sugars were below goal range. Will continue with that care currently as patient has no steroids ordered. PLAN FOR INPATIENT GLYCEMIC CONTROL: * Basal insulin- hold * Bolus insulin * NovoLog per scale ACHS or Q6hrs while NPO * Goal Range: Low 120 mg/dL - High 150 mg/dL * Correction Factor: 30 mg/dL/unit * Nutritional / Prandial insulin per carb ratio of 1 unit per -- grams CHO consumed O * Please note that the plan above was derived based on current level of insulin resistance and hospital stress. These recommendations are appropriate for inpatient admission only. Plan of care upon discharge will need to be reassessed to avoid potential outpatient hypo/hyperglycemia. Thank you.
[2019-12-15] MEDS: THIAMINE HCL 100 MG TAB PO SCH (15:46)
[2019-12-15] MEDS: FLUDROCORTISONE ACETATE 0.1 MG TAB PO SCH (15:46)
[2019-12-15] MEDS: GABAPENTIN 300 MG CAP PO SCH ×2 (15:52→21:40)
[2019-12-15] MEDS: SUCRALFATE 1 GM/10 ML UDC PO SCH ×2 (15:53→21:38)
[2019-12-15] MEDS: miSOPROStoL 100 MCG TAB PO SCH ×2 (16:48→21:39)
[2019-12-15] MEDS: MIDODRINE HCL 10 MG TAB PO SCH (16:48)
[2019-12-15] MEDS: LACTOBACILLUS ACIDOPHILUS 1 GM PACK PO SCH (16:48)
[2019-12-15] MEDS: INSULIN ASPART 100 UNITS/ML 3 ML PEN SC SCH ×2 (17:25→21:33)
--- NOTE | 2019-12-15 18:35 | Emergency Department Note ---
Entered by Bianca De Los Santos acting as a scribe for Yury Alexander MD History of Present Illness General Chief complaint: Illness Stated complaint: BLOOD TRANSFUSION, SENT FROM [facility] Time Seen by Provider: 12/15/19 12:35 Source: patient and RN notes reviewed History of Present Illness Onset (ago): day(s) (several) Location: left and right Pain Consistency: + constant Quality: + other (weakness) Associated symptoms: + headaches and + other (+low hemoglobin; +lightheaded; - black/bloody stool; ) The patient was discharged from [facility] on 12/12/19 to go to [facility]. She was discharged with IV antibiotics, ceftaroline, to be taken every 12 hours for 6 weeks for MRSA. The patient returned to the ED on 12/13/19 where it was found the patient had a hemoglobin of 6.8. She was then given 1 unit of red blood cells and discharged back to [facility]. The patients hemoglobin was found to be 6.4 today. The patient has a history of ulcer at the gastric bypass anastomosis. The patient is a 63 year old female, with past medical history of type 2 diabetes and major depression, who presents to the Emergency Room with complaints of constant weakness over the past several days. The patient admits to knowing her hemoglobin levels are low, she states she can tell due to her weakness. She also reports she has been lightheaded and has a headache. She denies black or bloody stool. The patient states she has been urinating without issues, but she notes her urine has been a little dark. The patient states she has been eating and drinking fine. The patient admits to still receiving rehab at [facility], and she admits to being on IV antibiotics while at [facility]. She states she has been able to do very little at [facility] lately due to her present symptoms. Home Medications Home Medications Medication Instructions Recorded Confirmed Type misoprostol [Cytotec] 100 mcg PO QID 08/16/19 12/15/19 History thiamine HCl (vitamin B1) [Vitamin 100 mg PO QAM #30 tab 08/22/19 12/15/19 Rx B-1] meclizine 25 mg PO Q8H PRN #30 tab 09/29/19 12/15/19 Rx fludrocortisone 0.1 mg PO QAM 11/17/19 12/15/19 History gabapentin 300 mg PO TID 11/17/19 12/15/19 History levothyroxine 25 mcg PO QAM 11/17/19 12/15/19 History nortriptyline 25 mg PO HS 11/17/19 12/15/19 History Lactobacillus acidoph-L.bulgar 1 g PO TIDM #60 ea 12/12/19 12/15/19 Rx [Floranex] acetaminophen [Mapap 650 mg PO Q4H PRN #100 tab 12/12/19 12/15/19 Rx (acetaminophen)] bisacodyl [Laxative (bisacodyl)] 10 mg OK DAILY PRN #30 ea 12/12/19 12/15/19 Rx ceftaroline fosamil 600 mg IV Q12H #50 ea 12/12/19 12/15/19 Rx magnesium chloride [Mag 64] 64 mg PO BID #60 tab 12/12/19 12/15/19 Rx metoprolol succinate 12.5 mg PO BID #60 tab 12/12/19 12/15/19 Rx pantoprazole 40 mg PO BID #60 tab 12/12/19 12/15/19 Rx cyanocobalamin (vitamin B-12) 500 mcg PO QAM 12/15/19 12/15/19 History [Vitamin B-12] docusate sodium 100 mg PO BID PRN 12/15/19 12/15/19 History enoxaparin [Lovenox] 40 mg SUBCUT QAM 12/15/19 12/15/19 History folic acid 1 mg PO QAM 12/15/19 12/15/19 History multivitamin [Daily-Satnam] 1 tab PO QDL 12/15/19 12/15/19 History potassium chloride [Klor-Con M20] 20 meq PO BID 12/15/19 12/15/19 History sucralfate 10 ml PO ACHS 12/15/19 12/15/19 History Allergies Allergy/AdvReac Type Severity Reaction Status Date / Time Sulfa (Sulfonamide Allergy Severe FACE/THROAT Verified 12/15/19 12:44 Antibiotics) SWELL UP Past Med/Surg History Medical History Acute alcohol abuse (Chronic) Alcohol abuse Alcoholism Anemia, iron deficiency (Chronic) Arthritis (Chronic) Bacteremia Chest tube in place Diabetes mellitus type 2, controlled DVT prophylaxis Empyema Esophagus disorder Gram positive sepsis Hypokalemia Small bowel obstruction (Resolved) Ulcer GI Surgical History History of incision and drainage (08/18/19) Left Axillary Abscess Incision and Drainage Dr. Perdue 08/18/19 Status post appendectomy (Chronic) Status post cholecystectomy (Chronic) Status post gastric bypass for obesity (Chronic) Status post hysterectomy (Chronic) Family History Other No pertinent family history in first degree relatives Social History Preferred Language: German Communication Ability: Effective Forcer Maker Required: No Beliefs That Will Affect Care: None and Spiritual marital status: Current Living Situation: Rehab Current Living Situation Comment: [facility] Other Information That Helps Us Care for You: No Feels Safe at Home: Yes Safety Concerns: Feels Safe At This Time Smoking Status: Former smoker Tobacco Type: cigarettes ; Second Hand Exposure: Yes ; Hx Alcohol Use: Yes Alcohol type: beer and hard liquor Hx Substance Use: No Review of Systems See HPI for pertinent positives & negatives. and A total of 10 systems reviewed and were otherwise negative Physical Exam Vital Signs Vital Signs - 24 hr 12/15/19 12:24 12/15/19 13:00 Temperature 36.8 C Temperature Source Oral Pulse Rate 79 Respiratory Rate 20 Blood Pressure 84/60 L Blood Pressure Mean 68 Pulse Oximetry 97 96 Oxygen Delivery Method Room Air Room Air Sepsis Recent Fever Within 48 Hours No Sepsis New/Unexplained Change in Mental Status No Sepsis Action Taken by Nursing No Action Required GENERAL: Patient is in no acute distress. HEENT: No acute trauma, normocephalic atraumatic, mucous membranes dry, no nasal congestion, no scleral icterus. NECK: No stridor, no adenopathy, no meningismus, trachea is midline. LUNGS: Crackles to left lung. No wheezing. No respiratory distress. Right lung seems clear. HEART: Without murmurs gallops or rubs, regular rate and rhythm. ABDOMEN: Soft, mildly diffusely tender, bowel sounds positive, no hernias, no peritonitis. EXTREMITIES: No cyanosis or edema, full range of motion of all the joints without pain or difficulty, no signs for acute trauma. RECTAL: Brown stool, heme negative. NEUROLOGIC: Oriented x 3, no acute motor or sensory deficits, no focal weakness. SKIN: No rash, no jaundice, no diaphoresis. Course Course 1240: Past medical records reviewed. The patient was evaluated in room B11A. A complete history and physical exam was performed. 1255: I reviewed the patient's case with Dr. Daniel Lindsey. Dr. Saunders would like a lactic completed. 1325: I reviewed the patient's case with Dr[facility] who saw the patient before she was previously discharged. Dr. Maurice will evaluate the patient for further management. Consultations Consultation #1: I reviewed the patient's case with Dr. Daniel Lindsey. Dr. Saunders would like a lactic completed. Time: 12:55 Consultation #2: I reviewed the patient's case with Dr[facility] who saw the patient before she was previously discharged. Dr. Maurice will evaluate the patient for further management. Time: 13:25 Administered Medications Fludrocortisone Acetate (Florinef) 0.1 mg PO QAM [facility] Stop: 01/14/20 15:29 Last Admin: 12/15/19 15:46 Dose: Not Given Documented by: [id number] Gabapentin (Neurontin) 300 mg PO TID [facility]AK Stop: 01/14/20 15:29 Last Admin: 12/15/19 15:52 Dose: 300 mg Documented by: [id number] Sodium Chloride (Nss 1000ml) 1,000 mls @ 100 mls/hr IV .Q10H [facility]ABAK Stop: 01/14/20 13:29 Last Infusion: 12/15/19 16:45 Dose: 0 mls/hr Documented by: [id number] Admin: 12/15/19 14:59 Dose: 100 mls/hr Documented by: [id number] Ceftaroline Fosamil 600 mg/ (Sodium Chloride) 270 mls @ 270 mls/hr IV Q12H [facility]ABAK Stop: 01/06/20 17:59 Last Admin: 12/15/19 19:58 Dose: 270 mls/hr Documented by: [id number] Insulin Aspart (Novolog Flexpen) 0 units SC ACHS [facility] Stop: 01/14/20 16:29 Last Admin: 12/15/19 17:25 Dose: Not Given Documented by: [id number] Cosigned by: [id number] Lactobacillus Acidophilus (Floranex Granules/Powder Packet) 1 gm PO TIDM [facility] Stop: 01/14/20 16:59 Last Admin: 12/15/19 16:48 Dose: 1 gm Documented by: [id number] Midodrine (Proamatine) 10 mg PO TID@0800,1200,1700 [facility] Stop: 01/14/20 16:59 Last Admin: 12/15/19 16:48 Dose: 10 mg Documented by: [id number] Misoprostol (Cytotec) 100 mcg PO QID [facility] Stop: 01/14/20 16:59 Last Admin: 12/15/19 16:48 Dose: 100 mcg Documented by: [id number] Sucralfate (Carafate) 1 gm PO ACHS [facility] Stop: 01/14/20 16:29 Last Admin: 12/15/19 15:53 Dose: 1 gm Documented by: [id number] Thiamine HCl (Vitamin B-1) 100 mg PO QAM [facility] Stop: 01/14/20 15:29 Last Admin: 12/15/19 15:46 Dose: Not Given Documented by: [id number] Discontinued Medications Acetaminophen (Tylenol) 650 mg PO NOW STA Stop: 12/15/19 12:50 Last Admin: 12/15/19 13:45 Dose: 650 mg Documented by: [id number] Diphenhydramine HCl (Benadryl) 12.5 mg IV NOW STA Stop: 12/15/19 12:50 Last Admin: 12/15/19 13:45 Dose: 12.5 mg Documented by: [id number] Sodium Chloride (Nss) 500 mls @ 999 mls/hr IV .Q31M [facility] Stop: 12/15/19 13:30 Last Infusion: 12/15/19 14:01 Dose: 0 mls/hr Documented by: [id number] Admin: 12/15/19 13:29 Dose: 999 mls/hr Documented by: [id number] Critical Care Time Critical Care Time: Yes Total Critical Care Time: 32 I have personally spent greater than 32 minutes of critical care time in the direct management of this patient. This includes bedside care, interpretation of diagnostic studies and testing, discussion with consultants, the patient, and family members, and other required patient management activities. This 32 minutes is in excess of all separately billable procedures. Medical Decision Making Differential Diagnosis Differential diagnoses include hypotension, anemia, dehydration, MRSA, GI bleed, sepsis, amongst others that were considered. Medical Records Attestation: I reviewed the patient's medical records. The patient was discharged from [facility] on 12/12/19 to go to [facility]. She was discharged with IV antibiotics ceftaroline to be taken every 12 hours for 6 weeks for MRSA. The patient returned to the ED on 12/13/19 where it was found the patient had a hemoglobin of 6.8. She was then given 1 unit of red blood cells. The patients hemoglobin was found to be 6.4 today. The patient has a history of ulcer at the gastric bypass anastomosis Home Medications Current Medication List: was personally reviewed by me Laboratory Data Attestation: I reviewed the patient's lab results. Result diagrams: 12/15/19 12:54 12/15/19 12:54 Lab Results 12/15/19 12/15/19 12/15/19 Range/Units 12:54 12:54 12:54 WBC 4.87 (4.8-10.8) K/uL RBC 2.15 L (4.2-5.4) M/uL Hgb 7.3 L (12.0-16.0) g/dL Hct 21.4 L (37-47) % MCV 99.5 (80-100) fL MCH 34.0 (25-34) pg MCHC 34.1 (32-36) g/dL RDW Std Deviation 65.2 H (36.4-46.3) fL RDW Coeff of Taye 18.3 H (11.5-14.5) % Plt Count 113 L (130-400) K/uL MPV 8.9 (7.4-10.4) fL Immature Gran % (Auto) 0.4 % Neut % (Auto) 69.5 % Lymph % (Auto) 17.2 % [place] % (Auto) 7.6 % Eos % (Auto) 4.5 % Baso % (Auto) 0.8 % Immature Gran # (Auto) 0.02 (0.00-0.02) K/uL Neut # (Auto) 3.38 (1.4-6.5) K/uL Lymph # (Auto) 0.84 L (1.2-3.4) K/uL [place] # (Auto) 0.37 (0.11-0.59) K/uL Eos # (Auto) 0.22 (0-0.5) K/uL Baso # (Auto) 0.04 (0-0.2) K/uL Polychromasia 1+ ESR (0-21) mm/hr Sodium 137 (136-145) mmol/L Potassium 3.6 (3.5-5.1) mmol/L Chloride 107 (98-107) mmol/L Carbon Dioxide 24 (21-32) mmol/L Anion Gap 6.0 (3-11) BUN 12 (7-18) mg/dl Creatinine 0.86 (0.6-1.2) mg/dl Est Cr Clr Drug Dosing Not Reportable Est GFR ( Amer) 83.9 Est GFR (Non-Af Amer) 72.4 BUN/Creatinine Ratio 13.4 (10-20) Glucose 113 H (70-99) mg/dl Lactate (0.4-2.0) mmol/L Calcium 7.7 L (8.5-10.1) mg/dl Magnesium 1.8 (1.8-2.4) mg/dl Total Bilirubin 1.3 H (0.2-1) mg/dl AST 58 H (15-37) U/L ALT 23 (12-78) U/L Alkaline Phosphatase 132 H (45-117) U/L Troponin I < 0.015 (0-0.045) ng/ml C-Reactive Protein 3.31 H (0-0.29) mg/dl Total Protein 5.9 L (6.4-8.2) gm/dl Albumin 1.7 L (3.4-5.0) gm/dl Globulin 4.2 H (2.5-4.0) gm/dl Albumin/Globulin Ratio 0.4 L (0.9-2) Specimen Hemolysis Blood Type A Positive Antibody Screen NEGATIVE Crossmatch See Detail 12/15/19 12/15/19 Range/Units 12:54 13:07 WBC (4.8-10.8) K/uL RBC (4.2-5.4) M/uL Hgb (12.0-16.0) g/dL Hct (37-47) % MCV (80-100) fL MCH (25-34) pg MCHC (32-36) g/dL RDW Std Deviation (36.4-46.3) fL RDW Coeff of Taye (11.5-14.5) % Plt Count (130-400) K/uL MPV (7.4-10.4) fL Immature Gran % (Auto) % Neut % (Auto) % Lymph % (Auto) % [place] % (Auto) % Eos % (Auto) % Baso % (Auto) % Immature Gran # (Auto) (0.00-0.02) K/uL Neut # (Auto) (1.4-6.5) K/uL Lymph # (Auto) (1.2-3.4) K/uL [place] # (Auto) (0.11-0.59) K/uL Eos # (Auto) (0-0.5) K/uL Baso # (Auto) (0-0.2) K/uL Polychromasia ESR 42 H (0-21) mm/hr Sodium (136-145) mmol/L Potassium (3.5-5.1) mmol/L Chloride (98-107) mmol/L Carbon Dioxide (21-32) mmol/L Anion Gap (3-11) BUN (7-18) mg/dl Creatinine (0.6-1.2) mg/dl Est Cr Clr Drug Dosing Est GFR ( Amer) Est GFR (Non-Af Amer) BUN/Creatinine Ratio (10-20) Glucose (70-99) mg/dl Lactate 2.3 H* (0.4-2.0) mmol/L Calcium (8.5-10.1) mg/dl Magnesium (1.8-2.4) mg/dl Total Bilirubin (0.2-1) mg/dl AST (15-37) U/L ALT (12-78) U/L Alkaline Phosphatase (45-117) U/L Troponin I (0-0.045) ng/ml C-Reactive Protein (0-0.29) mg/dl Total Protein (6.4-8.2) gm/dl Albumin (3.4-5.0) gm/dl Globulin (2.5-4.0) gm/dl Albumin/Globulin Ratio (0.9-2) Specimen Hemolysis Blood Type Antibody Screen Crossmatch Imaging Data Radiologist's Impression: Radiology results as stated below per my review and the radiologist's interpretation: XR chest 1V portable CLINICAL HISTORY: weakness COMPARISON STUDY: December 13, 2019 FINDINGS: The heart is normal in size. The patient is rotated. There are old right-sided rib fractures. There is no overt failure. There is blunting of both lateral costophrenic angle suggesting trace pleural effusions. There are left basilar opacity statistically atelectatic.[ IMPRESSION: 1. Left basilar opacities, likely atelectatic 2. Trace pleural effusions ACT 112: Negative or not required by law. Electronically signed by: Jevon Fitzpatrick M.D. 12/15/2019 1:56 PM ECG Data Attestation: I personally reviewed and interpreted this ECG as follows: Indication: + weakness Rate (beats per minute): 71 Rhythm: + normal sinus ECG Intervals/blocks: + Normal QT-c (493) ECG ST segments: + T-wave inversions; no ST elevation ECG Findings: + Other (Marked T-wave abnormalities to inferior and lateral); no PVCs Comparison ECG Date: from (12/13/19) Change: no significant change Blood Pressure Blood Pressure Findings: Low blood pressure Blood Pressure Disposition: further management by hospitalist [facility] Narrative There is no leukocytosis. The patient is anemic with a hemoglobin of 7.3, the hemoglobin was reported at 6.4 earlier today via outside laboratory testing. Platelet count was slightly low at 113. No kidney failure. Calcium was slightly low. There were some subtle liver enzyme elevations. C-reactive protein was elevated but lower than noted on recent testing. EKG shows a sinus rhythm, no acute ischemia. Cardiac enzyme testing x1 does not show any evidence for acute cardiac injury. Chest film showed some effusion to the left hemithorax, no obvious pneumonia. The film looked very similar to somewhat im proved compared to some recent films. Rectal exam was performed and was heme- negative. The patient presents with weakness, dizziness and a lower blood pressure. Her hemoglobin is low. She was just at the ED for a blood transfusion 2 days ago. The hemoglobin has again dropped. The cause for this continuing drop in hemoglobin is unclear. The patient was given a 500 cc saline bolus. She was given a unit of packed red blood cells in the ED, she did consent to the transfusion, the appropriate paperwork was signed. Of note, the patient did receive IV Benadryl and oral Tylenol as premedication for her blood transfusion. I spoke to the patient and case management. The on-call hospitalist has been consulted. Hospitalization is warranted. Continuous Cardiac Monitoring: An order was placed for continuous cardiac monitoring. The monitor shows a rate of 70 with normal sinus rhythm. Impression & Plan Hypotension, Anemia, Weakness, Acute dehydration, History of MRSA infection Discharge Plan Visit Data *Final* Discharge Date/Time: 12/15/19 14:17 Chief Complaint: Illness Stated Complaint: BLOOD TRANSFUSION, SENT FROM [facility] ED Provider: Yury Alexander Discharge Problem: Hypotension, Anemia, Weakness, Acute dehydration, History of MRSA infection Patient Disposition: Being Evaluated by Hospitalist Discharge Instructions Interventions: ED Discharge Assessment Last Done: 12/15/19 14:17 Discharge Problem: Hypotension Qualifiers: Hypotension type: unspecified hypotension type Qualified Code(s): I95.9 - Hypotension, unspecified Anemia Qualifiers: Anemia type: unspecified type Qualified Code(s): D64.9 - Anemia, unspecified The [email or web address]'s documentation has been prepared under my direction and personally reviewed by me in its entirety. I confirm that the note above accurately refle cts all work, treatment, procedures, and medical decision making performed by me.
[2019-12-15] MEDS: CEFTAROLINE FOSAMIL ACETATE 600 MG in SODIUM CHLORIDE 0.9% 250 ML IV SCH (19:58)
[2019-12-15] MEDS: HEPARIN SOD 5,000 UNIT/0.5 ML VIAL SQ SCH (21:33)
[2019-12-15] MEDS: POTASSIUM CHLORIDE 20 MEQ TABCR PO SCH (21:40)
[2019-12-15] MEDS: NORTRIPTYLINE HCL 25 MG CAP PO SCH (21:41)
[2019-12-15] MEDS: PANTOprazole 40 MG TAB PO SCH (21:41)
[2019-12-15] MEDS: MAGNESIUM CHLORIDE 64MG DELAYED REL TAB PO SCH (21:42)
[2019-12-15] MEDS: METOPROLOL SUCC 25MG EXT REL TAB PO SCH (21:42)
[2019-12-16] MEDS: CEFTAROLINE FOSAMIL ACETATE 600 MG in SODIUM CHLORIDE 0.9% 250 ML IV SCH ×2 (05:37→18:11)
[2019-12-16] MEDS: LEVOTHYROXINE SODIUM 25 MCG TABLET PO SCH (05:41)
[2019-12-16 06:01] LABS: Basophils # (auto) 0.02 K/uL (0-0.2); Basophils % (auto) 0.4 %; Eosinophils # (auto) 0.23 K/uL (0-0.5); Eosinophils % (auto) 4.6 %; Hematocrit (blood only) 24.2 % (37-47); Hemoglobin 8.2 g/dL (12.0-16.0); Immature Granulocytes # (auto) 0.02 K/uL (0.00-0.02); Immature Granulocytes % (auto) 0.4 %; Lymphocytes # (auto) 0.73 K/uL (1.2-3.4); Lymphocytes % (auto) 14.6 %; Mean Corpuscular Hemoglobin 32.9 pg (25-34); Mean Corpuscular Hgb Conc 33.9 g/dL (32-36); Mean Corpuscular Volume 97.2 fL (80-100); Monocytes # (auto) 0.47 K/uL (0.11-0.59); Monocytes % (auto) 9.4 %; Neutrophils # (auto) 3.54 K/uL (1.4-6.5); Neutrophils % (auto) 70.6 %; Platelet Count 113 K/uL (130-400); RDW Coefficient of Variation 18.2 % (11.5-14.5); RDW Standard Deviation 64.9 fL (36.4-46.3); Red Blood Count 2.49 M/uL (4.2-5.4); White Blood Count 5.01 K/uL (4.8-10.8)
[2019-12-16 06:10] LABS: INR 1.1 (0.9-1.1); Prothrombin Time 10.9 Seconds (9.0-12.0)
[2019-12-16 06:42] LABS: Albumin Globulin Ratio 0.4 (0.9-2); Albumin Level 1.5 gm/dl (3.4-5.0); BUN Creatinine Ratio 15.4 (10-20); Bilirubin,Total 1.6 mg/dl (0.2-1); Calcium 7.7 mg/dl (8.5-10.1); Creatinine Clr Calc Pharmacy 68.2 ml/min; Est GFR (African American) 95.9; Est GFR (Non-African American) 82.8; Globulin 3.7 gm/dl (2.5-4.0); Potassium 3.6 mmol/L (3.5-5.1); Total Protein 5.2 gm/dl (6.4-8.2)
--- NOTE | 2019-12-16 07:49 | Hospitalist Progress Note ---
Date of Service December 16, 2019 Assessment & Plan (1) SOB (shortness of breath): (2) Anemia: (3) Weakness: (4) Chest pain, precordial: (5) Major depression: (6) Cardiomyopathy: (7) Malnutrition: (8) Anastomotic ulcer S/P gastric bypass: (9) Diabetes mellitus type 2, controlled: (10) Status post gastric bypass for obesity: s/p Gram Pos Sepsis, Septic Arthritis L Knee, Empyema and UTI last admission Resume Ceftaroline, Transfuse Blood up to 10. Midodrine, Shannon x 3 are negative, Monitor daily labs, CRP, ESR, SSI, Midline Failed, US guided peripheral failed, consult Dr Martinez for TAC line Labs checked ROS-No Headache, No Visual Changes, No Nausea, No Vomiting, No Fever, No Chills, No Neck Pain or Stiffness, No Chest Pain, No Palpitations, + SOB, + ATKINSON, + Cough, No Sputum, No Wheezing, No Abdominal Pain, No Diarrhea, No Hematemesis, No Hemoptysis, No Unexpected Weight Loss, No Flank pain, No Melena, No Hematochezia, No Frequency, No Urgency, No Burning, No Hematuria, No Rashes, No Diaphoresis. Appetite is Normal Physical Exam Gen-AAO x 3, NAD, Afebrile, Pleasant, Weak Head-NCAT, EOMI, PERRLA, Anicteric Sclera, No Posterior Pharyngeal Erythema Neck-Supple, No JVD, No Thyromegaly, No Masses, No LAD, No Bruits Lungs-Coarse BS L, R Clear Chest-No S4, +S1, +S2, No S3, No Murmurs, No Rubs, No Gallops, No Ectopy Abdomen-Soft, Bowel Sounds Present, Non Tender, Non Distended, No Hepatomegaly, No Splenomegaly, No Palpable Masses, No Rebound, No Rigidity, No Guarding Musculoskeletal-Full Range of Motion Bilaterally, No CVAT Extremities-No Cyanosis, No Clubbing, No Edema Nuero-Cranial Nerves II-XII grossly intact, Motor WNL, DTRs WNL, Strength WNL, Non Focal Psych-Normal Mood Admission and Anticipated Discharge Date Admission Date: December 15, 2019 Results & Data ([facility]) Vital Signs (Past 12 Hours) Vital Signs Temp Pulse Pulse Resp BP Pulse Ox 02/11/20 04:00 36.8 C 73 18 142/76 H 96 12/16/19 00:00 60 12/15/19 23:29 36.7 C 72 18 151/83 H 96 (1) Anemia Anemia type: unspecified type Qualified Code(s): D64.9 - Anemia, unspecified
[2019-12-16] MEDS: SUCRALFATE 1 GM/10 ML UDC PO SCH ×4 (08:51→20:13)
[2019-12-16] MEDS: INSULIN ASPART 100 UNITS/ML 3 ML PEN SC SCH ×4 (08:53→20:14)
[2019-12-16] MEDS: LACTOBACILLUS ACIDOPHILUS 1 GM PACK PO SCH ×3 (08:54→18:11)
[2019-12-16] MEDS: MIDODRINE HCL 10 MG TAB PO SCH ×3 (08:55→18:11)
[2019-12-16] MEDS: miSOPROStoL 100 MCG TAB PO SCH ×4 (08:56→20:13)
[2019-12-16] MEDS: FLUDROCORTISONE ACETATE 0.1 MG TAB PO SCH (08:57)
[2019-12-16] MEDS: HEPARIN SOD 5,000 UNIT/0.5 ML VIAL SQ SCH ×2 (08:58→20:14)
[2019-12-16] MEDS: FOLIC ACID 1 MG TAB PO SCH (08:58)
[2019-12-16] MEDS: POTASSIUM CHLORIDE 20 MEQ TABCR PO SCH ×2 (09:03→20:13)
[2019-12-16] MEDS: GABAPENTIN 300 MG CAP PO SCH ×3 (09:03→20:13)
[2019-12-16] MEDS: PANTOprazole 40 MG TAB PO SCH ×2 (09:04→20:13)
[2019-12-16] MEDS: METOPROLOL SUCC 25MG EXT REL TAB PO SCH ×2 (09:04→20:13)
[2019-12-16] MEDS: MAGNESIUM CHLORIDE 64MG DELAYED REL TAB PO SCH ×2 (09:04→20:13)
[2019-12-16] MEDS: THIAMINE HCL 100 MG TAB PO SCH (09:06)
[2019-12-16] MEDS: CYANOCOBALAMIN 500 MCG TABLET (VITAMIN B-12) PO SCH (09:06)
--- NOTE | 2019-12-16 10:27 | Consultation ---
Date of Consultation December 16, 2019 Assessment & Plan (1) Poor intravenous access: Pt with poor IV access and need for outpt IV abx. Pt discussed with Dr Martinez, planning on insertion of dias catheter tomorrow. Pt aware. History of Present Illness Reason for Consultation: need access for abx Attending Physician: Xavier Maurice DO History of Present Illness 63 yo f with multiple medical problems, including DMII, cardiomyopathy, malnutrition, hx of gastric bypass, hx alcoholism, currently admitted for ane deni, seen in consultation today for placement of dias catheter for alf abx administration. Pt previously admitted with empyema and currently on IV abx. PICC line failed, midline failed, currently with single US guided IV. Pt admits fatigue, malaise and occasional nausea. Denies GOODWIN, fever, chills, chest pain, abd pain, vomiting, rest pain, claudication, other complaints. Pt will apparently require acceess for IV abx for at least another 3-4 weeks. Allergies Allergy/AdvReac Type Severity Reaction Status Date / Time Sulfa (Sulfonamide Allergy Severe FACE/THROAT Verified 12/15/19 12:44 Antibiotics) SWELL UP Home Medications Home Medications Medication Instructions Recorded Confirmed Type misoprostol [Cytotec] 100 mcg PO QID 08/16/19 12/15/19 History thiamine HCl (vitamin B1) [Vitamin 100 mg PO QAM #30 tab 08/22/19 12/15/19 Rx B-1] meclizine 25 mg PO Q8H PRN #30 tab 09/29/19 12/15/19 Rx fludrocortisone 0.1 mg PO QAM 11/17/19 12/15/19 History gabapentin 300 mg PO TID 11/17/19 12/15/19 History levothyroxine 25 mcg PO QAM 11/17/19 12/15/19 History nortriptyline 25 mg PO HS 11/17/19 12/15/19 History Lactobacillus acidoph-L.bulgar 1 g PO TIDM #60 ea 12/12/19 12/15/19 Rx [Floranex] acetaminophen [Mapap 650 mg PO Q4H PRN #100 tab 12/12/19 12/15/19 Rx (acetaminophen)] bisacodyl [Laxative (bisacodyl)] 10 mg MI DAILY PRN #30 ea 12/12/19 12/15/19 Rx ceftaroline fosamil 600 mg IV Q12H #50 ea 12/12/19 12/15/19 Rx magnesium chloride [Mag 64] 64 mg PO BID #60 tab 12/12/19 12/15/19 Rx metoprolol succinate 12.5 mg PO BID #60 tab 12/12/19 12/15/19 Rx pantoprazole 40 mg PO BID #60 tab 12/12/19 12/15/19 Rx cyanocobalamin (vitamin B-12) 500 mcg PO QAM 12/15/19 12/15/19 History [Vitamin B-12] docusate sodium 100 mg PO BID PRN 12/15/19 12/15/19 History enoxaparin [Lovenox] 40 mg SUBCUT QAM 12/15/19 12/15/19 History folic acid 1 mg PO QAM 12/15/19 12/15/19 History multivitamin [Daily-Satnam] 1 tab PO QDL 12/15/19 12/15/19 History potassium chloride [Klor-Con M20] 20 meq PO BID 12/15/19 12/15/19 History sucralfate 10 ml PO ACHS 12/15/19 12/15/19 History Patient History Medical History (Updated 12/16/19 @ 10:32 by Heather De Guzman PA-C) Acute alcohol abuse (Chronic) Alcohol abuse Alcoholism Anemia, iron deficiency (Chronic) Arthritis (Chronic) Bacteremia Chest tube in place Diabetes mellitus type 2, controlled DVT prophylaxis Empyema Esophagus disorder Gram positive sepsis Hypokalemia Poor intravenous access Small bowel obstruction (Resolved) Ulcer GI Surgical History History of incision and drainage (08/18/19) Left Axillary Abscess Incision and Drainage Dr. Perdue 08/18/19 Status post appendectomy (Chronic) Status post cholecystectomy (Chronic) Status post gastric bypass for obesity (Chronic) Status post hysterectomy (Chronic) Family History Other No pertinent family history in first degree relatives Social History Preferred Language: British Communication Ability: Effective [employer]orer [employer] Required: No Beliefs That Will Affect Care: None and Spiritual marital status: Current Living Situation: Rehab Current Living Situation Comment: [facility] Other Information That Helps Us Care for You: No Feels Safe at Home: Yes Safety Concerns: Feels Safe At This Time Smoking Status: Former smoker Tobacco Type: cigarettes ; Second Hand Exposure: Yes ; Hx Alcohol Use: Yes Alcohol type: beer and hard liquor Hx Substance Use: No Review of Systems Review of Systems: All systems reviewed & are unremarkable except as noted in HPI & below Physical Exam Constitutional: + thin, + frail appearing, cooperative, comfortable and + malnourished; not in distress Eyes: PERRL, conjunctivae normal, anicteric sclerae ENMT: external ear and nose normal, oropharynx normal Ears: no hearing impairment Neck: trachea midline, no thyromegaly Respiratory: normal respiratory effort Auscultation: lungs clear to auscultation bilaterally and + diminished lung sounds Cardiovascular: RRR, no murmur, no edema Gastrointestinal (Abdomen): normal bowel sounds, soft, nontender, no hepatosplenomegaly Musculoskeletal: no cyanosis or clubbing, extremities motor strength 5/5 Skin: no rashes, warm and dry Neurologic: moves all extremities; no focal motor deficits and not confused Psychiatric: Orientation: alert and oriented x 3 Affect: + flat affect Results & Data Vital Signs (Past 12 Hours) Vital Signs Temp Pulse Pulse Resp BP Pulse Ox 12/16/19 07:47 36.7 C 68 18 134/71 95 12/16/19 04:00 36.8 C 73 18 142/76 H 96 12/16/19 00:00 60 12/15/19 23:29 36.7 C 72 18 151/83 H 96
[2019-12-16] MEDS: PROMETHAZINE HCL 12.5 MG in SODIUM CHLORIDE 0.9% 50 ML IV PRN (11:03)
[2019-12-16] MEDS: SODIUM CHLORIDE 0.9% 1000ML 1,000 ML IV SCH ×2 (11:03→21:32)
--- NOTE | 2019-12-16 11:34 | Pharmacy Report ---
Pharmacy Glycemic Short Note 2 - Date of Service December 16, 2019 - Glycemic Short BSG Results (Last 24 hours): 12/15/19 12/15/19 12/15/19 12:54 16:12 20:58 Glucose 113 H POC Glucose 110 H 99 12/16/19 12/16/19 05:36 07:32 Glucose 88 POC Glucose 94 OUTPATIENT ANTIDIABETIC REGIMEN: * N/A * A1c: 4.9% (11/18/19) ASSESSMENT: * BSGs ranging 88-113 mg/dL over past 24 hours * Patient has received 0 units of insulin PLAN FOR INPATIENT GLYCEMIC CONTROL: * Hold outpatient oral diabetes medications * Basal insulin * Continue to hold * Bolus insulin * NovoLog per scale ACHS or Q6hrs while NPO * Goal Range: Low 120 mg/dL - High 150 mg/dL * Correction Factor: 30 mg/dL/unit * No carb coverage at this time PLAN FOR DISCHARGE: * Based on A1c and current BSGs - patient will not require outpatient treatment at this time * Promote healthy lifestyle (i.e. diet and exercise)
[2019-12-16] MEDS: MULTIVITAMIN TAB PO SCH (12:47)
[2019-12-16] MEDS: NORTRIPTYLINE HCL 25 MG CAP PO SCH (20:17)
[2019-12-17] MEDS: CEFTAROLINE FOSAMIL ACETATE 600 MG in SODIUM CHLORIDE 0.9% 250 ML IV SCH ×2 (05:23→17:27)
[2019-12-17] MEDS: LEVOTHYROXINE SODIUM 25 MCG TABLET PO SCH (05:23)
[2019-12-17 07:20] LABS: Hematocrit (blood only) 20.4 % (37-47); Mean Corpuscular Hemoglobin 34.3 pg (25-34); Mean Corpuscular Hgb Conc 34.3 g/dL (32-36); Mean Platelet Volume 9.2 fL (7.4-10.4); Platelet Count 132 K/uL (130-400); RDW Coefficient of Variation 17.8 % (11.5-14.5); RDW Standard Deviation 63.5 fL (36.4-46.3); Red Blood Count 2.04 M/uL (4.2-5.4); White Blood Count 5.88 K/uL (4.8-10.8)
[2019-12-17] MEDS: INSULIN ASPART 100 UNITS/ML 3 ML PEN SC SCH ×4 (07:26→21:37)
[2019-12-17] MEDS: LACTOBACILLUS ACIDOPHILUS 1 GM PACK PO SCH ×3 (07:29→16:55)
[2019-12-17] MEDS: SUCRALFATE 1 GM/10 ML UDC PO SCH ×4 (07:29→21:42)
[2019-12-17] MEDS: MIDODRINE HCL 10 MG TAB PO SCH ×3 (07:29→16:55)
[2019-12-17 07:48] LABS: BUN Creatinine Ratio 14.8 (10-20); Calcium 7.7 mg/dl (8.5-10.1); Creatinine Clr Calc Pharmacy 70.9 ml/min; Est GFR (African American) 100.6; Est GFR (Non-African American) 86.8; Potassium 3.3 mmol/L (3.5-5.1)
--- NOTE | 2019-12-17 07:59 | Pharmacy Report ---
Pharmacy Glycemic Sign Off Nt - Date of Service December 17, 2019 - Assessment & Plan ASSESSMENT: * Pharmacy was consulted by Dr Maurice on 12/15/19 for glycemic control and to write orders per [facility] inpatient glycemic control protocol. * Major changes made by pharmacy to antidiabetic regimen include: * Addition of Novolog ACHS with correction factor of 30, no carb coverage * Patient has been receiving/requiring 0 units of insulin per day for adequate glycemic control * BSGs ranging 88 - 114 mg/dl * Regimen has not required any adjustments over the past 48hrs to achieve this level of control * Do not anticipate further changes in patient status that would quickly deteriorate glycemic control * Please see recommendations for outpatient antidiabetic regimen below. PLAN FOR INPATIENT GLYCEMIC CONTROL: No changes needed to current regimen. * Continue NovoLog per scale ACHS/Q6hrs while NPO * Goal range = 120 - 150 mg/dl * CF = 30 mg/dl/unit * Pharmacy is signing off of glycemic consult and will no longer be making adjustments to inpatient regimen. Please feel free to re-consult if needed. Thank you. DISCHARGE RECOMMENDATIONS: * A1c 4.9 % on 11/18/19 * Based on A1c and current BSGs - patient will not require outpatient treatment at this time * Promote healthy lifestyle (i.e. diet and exercise as tolerated)
[2019-12-17] MEDS ORDERED: SODIUM CHLORIDE 0.9% 250 ML IV PRN ×2 (08:30→18:20)
[2019-12-17] MEDS: SODIUM CHLORIDE 0.9% 1000ML 1,000 ML IV SCH ×2 (09:36→17:26)
[2019-12-17] MEDS: POTASSIUM CHLORIDE / WTR 10 MEQ/100 ML PLCT IV SCH ×2 (10:01→15:55)
[2019-12-17] MEDS: miSOPROStoL 100 MCG TAB PO SCH ×4 (10:02→21:37)
[2019-12-17] MEDS: FLUDROCORTISONE ACETATE 0.1 MG TAB PO SCH (10:03)
[2019-12-17] MEDS: FOLIC ACID 1 MG TAB PO SCH (10:03)
[2019-12-17] MEDS: GABAPENTIN 300 MG CAP PO SCH ×3 (10:04→21:43)
[2019-12-17] MEDS: PANTOprazole 40 MG TAB PO SCH ×2 (10:05→21:42)
[2019-12-17] MEDS: MAGNESIUM CHLORIDE 64MG DELAYED REL TAB PO SCH ×2 (10:06→21:42)
[2019-12-17] MEDS: METOPROLOL SUCC 25MG EXT REL TAB PO SCH ×2 (10:06→21:41)
[2019-12-17] MEDS: CYANOCOBALAMIN 500 MCG TABLET (VITAMIN B-12) PO SCH (10:08)
[2019-12-17] MEDS: THIAMINE HCL 100 MG TAB PO SCH (10:08)
[2019-12-17] MEDS: POTASSIUM CHLORIDE 20 MEQ TABCR PO SCH ×2 (10:23→21:38)
--- NOTE | 2019-12-17 10:46 | History & Physical Bridge Note ---
Date of Service December 17, 2019 History & Physical Bridge Note Patient for insertion of a dias catheter today. I have discussed the risks options and benefits of the procedure with the patient. The patient understands the risks options and benefits and agrees to the procedure. I have examined the patient, reviewed the History & Physical and in the interval since the performance of the History & Physical I have noted the following changes of clinical significance: no changes noted
[2019-12-17] MEDS ORDERED: MIDAZOLAM HCL 1 MG/ML 2ML VIAL ONE (11:29)
[2019-12-17] MEDS ORDERED: fentaNYL citrate 100 MCG/2 ML VIAL ONE (11:29)
[2019-12-17] MEDS: HEPARIN SOD 5,000 UNIT/0.5 ML VIAL SQ SCH ×2 (11:36→21:36)
[2019-12-17] MEDS ORDERED: LIDOCAINE HCL 1% 20 ML VIAL ONE (11:43)
--- NOTE | 2019-12-17 11:48 | Pre Anesthesia Assessment ---
Date of Service December 17, 2019 Pre Sedation Assessment Vital Signs Temp Pulse Pulse Resp BP Pulse Ox 12/17/19 11:15 63 18 134/60 100 12/17/19 10:56 70 12/17/19 07:57 36.7 C 72 18 126/74 96 12/17/19 04:30 36.8 C 80 16 119/73 95 12/16/19 23:42 75 12/16/19 23:25 36.9 C 80 18 127/69 96 12/16/19 20:29 36.9 C 79 18 123/70 95 12/16/19 16:01 36.7 C 73 18 138/75 94 Cardiovascular RRR, no murmur, no edema Respiratory normal respiratory effort, lungs clear to auscultation Pre-Sedation Airway Assessment Smoking Status: Former smoker Hx Sleep Apnea: No Short, Thick Neck: No Thyromental Distance: > or= 3.5 Finger Breadths Oral Cavity: + Dentures Mallampati Class: II ASA: ASA2 NPO Status Date of Last Intake of Fluids: 12/17/19 Last Oral Intake of Fluids Comment: 614 Date of Last Intake of Solid Food: 12/16/19 Last Intake of Solids Comment: 1800 Procedure Planning Contraindications for Sedation: none Current Medications Reviewed: Yes Notes The planned sedation has been discussed with the patient. Informed Consent was obtained. I have identified the patient, determined the appropriateness of sedation and have assessed the patient immediately prior to the procedure. All medicine(s) and interventions are by my order.
--- NOTE | 2019-12-17 12:55 | Post Operative Brief Note ---
Immediate Post Op Note v1 Date of Surgery December 17, 2019 Pre & Post Diagnosis Operation Date: 12/17/19 15:10 Pre-Op Diagnosis: Lack of IV access Post-Op Diagnosis: Lack of IV access I identified the patient and participated in the time-out.: Yes Procedure Operation Date: 12/17/19 15:10 Actual Procedures p Insertion of tunneled power port double lumen Catheter, Ultrasound Localization of Right Jugular Vein, Flouroscopy for Positioning, Moderate Sedation [id number](Right) - Khang Martinez MD Surgeon Khang Martinez MD Field Service Analyst MD Devin Estimated Blood Loss 3 Findings Consistent with Post-Op Diagnosis Anesthesia Type RN Sedation Complications none Disposition Accompanied Patient To Recovery: No Disposition: Recovery Room
--- NOTE | 2019-12-17 13:03 | Operative Report ---
Post Operative Report Pre & Post Diagnosis Operation Date: 12/17/19 15:10 Pre-Op Diagnosis: Lack of IV access Post-Op Diagnosis: Lack of IV access I identified the patient and participated in the time-out.: Yes Procedure Operation Date: 12/17/19 15:10 Actual Procedures p Insertion of Arce Catheter, Ultrasound Localization of Right Jugular Vein, Flouroscopy for Positioning, Moderate Sedation 1215-(Right) - Khagn Martinez MD Surgeon Dr. Martinez Resource Room Teacher MD Devin Estimated Blood Loss 3 Findings Consistent with Post-Op Diagnosis Specimens none Complications none Disposition Accompanied Patient To Recovery: No Disposition: Recovery Room Description of Procedure Patient was taken to the angio suite and placed in the supine position. The right side of the neck and chest wall were prepped and draped in a sterile manner. Local anesthesia was then administered to the appropriate areas of the neck and chest wall. Ultrasound was then used to locate the right internal jugular vein. The vein compressed easily, had no filing defects, and was patent. The vein was then punctured under direct ultrasound imaging. A guidewire was then passed centrally under fluoroscopic imaging. A stab wound was then made in the anterior chest wall and a 21cm Arce cath was passed from the stab wound on the chest wall to the puncture site on the neck. The puncture site was then dilated till the 14Fr peel away sheath was inserted. The Arce catheter was then inserted through the sheath to a central position in the distal superior vena cava. The peel away sheath was then removed. The catheter was then sutured in place using nylon sutures. The puncture was then closed using a 4-0 Vicryl subcuticular suture. Dermabond was used for a dressing on the puncture site. Both ports aspirated and flushed easily and were then packed with heparin. A sterile dressing was applied to the catheter. The patient left the angio suite in good condition and tolerated the procedure well. Dr. Martinez was present and scrubbed for the entire procedure. I attest to the content of the Intraoperative Record and any orders documented therein. Any exceptions are noted below.
--- NOTE | 2019-12-17 13:08 | Post Anesthesia Assessment ---
Date of Service December 17, 2019 Post Sedation Assessment Vital Signs Temp Pulse Pulse Resp BP Pulse Ox 12/17/19 13:05 67 12 137/66 98 12/17/19 13:00 69 13 132/69 96 12/17/19 12:55 67 12 136/65 97 12/17/19 12:50 64 24 140/65 100 12/17/19 12:45 66 24 137/64 100 12/17/19 12:40 68 24 124/67 100 12/17/19 12:35 70 16 132/69 100 12/17/19 12:30 67 22 133/63 100 12/17/19 12:25 66 13 142/66 H 100 12/17/19 12:20 64 12 140/76 100 12/17/19 12:15 62 24 146/69 H 100 12/17/19 12:10 61 15 141/66 H 100 12/17/19 12:07 65 20 141/66 H 98 12/17/19 11:15 63 18 134/60 100 12/17/19 10:56 70 12/17/19 07:57 36.7 C 72 18 126/74 96 12/17/19 04:30 36.8 C 80 16 119/73 95 12/16/19 23:42 75 12/16/19 23:25 36.9 C 80 18 127/69 96 12/16/19 20:29 36.9 C 79 18 123/70 95 12/16/19 16:01 36.7 C 73 18 138/75 94 Recovery Score Activity: Moves 4 extremities Respiration: Deep Breath/Cough Circulation: +/-20% PreAnes Value Consciousness: Fully Awake Oxygen Saturation: > 92% On Room Air Post Anesthesia Score: 10 Discharge Sedation Level of Care: Fast Track Phase II Post Sedation Plan On clinical assessment, the patient appears to have tolerated the sedation without complications. Patient is recovering as anticipated. Patient will continue to be monitored by nursing and may be discharged when sedation discharge criteria are met per below protocol. Upon Completions of procedure up to 15 minutes continue every 5 minute vital signs and the P.A.R. score; then discharge to a Phase I or Fast Track to Phase II per the following guidelines: * Discharge Patient to appropriate Phase II area if PAR is 8 or greater or return to pre- procedure baseline. The post - procedure orders will be as directed. * If PAR score is less than 8 or not return to pre-procedure baseline then patient will follow Phase I monitoring till PAR is reached for Phase II. The Phase I may be done in procedure room or may call to secure a Phase I area. * If naloxone or flumazenil are used for reversal, hold in Phase I for continued monitoring from when last reversal dose was given for a minimum of 60 minutes or longer pending the nurse and/or physician discretion of patient condition before discharge to Phase II. Please call the Sedation Physician to re-evaluate and complete post-note for discharge to Phase II area. Do NOT discharge from procedure sedation or Phase 1 until post- sedation evaluation note is complete by procedure /sedation MD Sedation Discharge Instructions to be given to the patient at discharge to home.
[2019-12-17] MEDS: MULTIVITAMIN TAB PO SCH (14:17)
--- NOTE | 2019-12-17 17:26 | Hospitalist Progress Note ---
Date of Service December 17, 2019 Assessment & Plan (1) SOB (shortness of breath): (2) Anemia: (3) Weakness: Related to symptomatic anemia Hgb on admission 7.3 Received 1 unit PRBC, then repeat hgb 8.3 Hgb dropped to 7 today, will transfuse another 1 unit prbc Will put another 1 unit prbc on hold PT/OT eval Monitor CBC (4) Chest pain, precordial: EKG on admission showed no significant ischemic changes Troponin x3 negative Continue Metoprolol Stable (5) Major depression: Stable (6) Cardiomyopathy: Possible related to Takotsubo from recent cardiology consult Echocardiogram on last admission showed an apical ballooning pattern along significantly reduced LV systolic function EF approximately 30 to 35%. Continue Low dose metoprolol Septic arthritis of knee, left Arthrocentesis on 11/22/2019 demonstrated 78,000 WBCs (88% polys). Cultures subsequently grew MRSA on last admission ID in the last admission recommended to continue IV abx for 6 weeks starting from 11/24/19 negative cx. Insertion of tunneled power port double lumen Catheter placed today by Vascular surgery Hypotension During previous admission Was starting on Midodrine BP has been stable Continue midodrine with BP parameters Left rib fracture: Multiple left rib fractures due to recent fall. Analgesics PRN. Stable Hypokalemia K 3.3 today K replaced Monitor BMP Anastomotic ulcer S/P gastric bypass: Status post [place]-en-[place] gastric bypass years ago. History anastomotic ulcer. No gross GI bleeding. Continue PPI, sucralfate, misoprostol Diabetes Hba1c 4.9 on 11/24 Continue insulin sliding scale Monitor BS DVT px on heparin subq Admission and Anticipated Discharge Date Admission Date: December 15, 2019 Subjective Pt was seen and examined Lying in bed with no distress Pt said that she feels fine She said that she feels a little weak Denies any chest pain, palpitation and SOB Physical Exam Physical Exam: General- No acute distress Head- atraumatic Eyes- PERRL, EOMI, ENT- oropharynx clear Neck- supple, no JVD Lungs- clear to auscultation Heart- regular rhythm; no murmur Abdomen- normal bowel sounds, soft, nontender Extremities- no calf tenderness Neuro- alert, oriented x 3; PERRL, EOMI; no facial palsy; no dysarthria Skin- warm & dry Results & Data ([facility]) Vital Signs (Past 12 Hours) Vital Signs Temp Pulse Pulse Resp BP BP BP 12/17/19 17:01 36.5 C 68 18 152/81 H 12/17/19 15:24 36.5 C 65 16 121/70 12/17/19 15:09 36.5 C 64 18 133/70 12/17/19 14:54 36.5 C 70 16 121/72 12/17/19 14:37 36.5 C 85 18 109/74 12/17/19 13:27 36.4 C L 62 18 134/75 134/75 12/17/19 13:05 67 12 137/66 12/17/19 13:00 69 13 132/69 12/17/19 12:55 67 12 136/65 12/17/19 12:50 64 24 140/65 12/17/19 12:45 66 24 137/64 12/17/19 12:40 68 24 124/67 12/17/19 12:35 70 16 132/69 12/17/19 12:30 67 22 133/63 12/17/19 12:25 66 13 142/66 H 12/17/19 12:20 64 12 140/76 12/17/19 12:15 62 24 146/69 H 12/17/19 12:10 61 15 141/66 H 12/17/19 12:07 65 20 141/66 H 12/17/19 11:15 63 18 134/60 12/17/19 10:56 70 12/17/19 07:57 36.7 C 72 18 126/74 Pulse Ox 12/17/19 17:01 99 12/17/19 15:24 96 12/17/19 15:09 98 12/17/19 14:54 98 12/17/19 14:37 97 12/17/19 13:27 98 12/17/19 13:05 98 12/17/19 13:00 96 12/17/19 12:55 97 12/17/19 12:50 100 12/17/19 12:45 100 12/17/19 12:40 100 12/17/19 12:35 100 12/17/19 12:30 100 12/17/19 12:25 100 12/17/19 12:20 100 12/17/19 12:15 100 12/17/19 12:10 100 12/17/19 12:07 98 12/17/19 11:15 100 12/17/19 10:56 12/17/19 07:57 96 (1) Anemia Anemia type: unspecified type Qualified Code(s): D64.9 - Anemia, unspecified
[2019-12-17] MEDS: NORTRIPTYLINE HCL 25 MG CAP PO SCH (21:41)
[2019-12-18] MEDS: SODIUM CHLORIDE 0.9% 1000ML 1,000 ML IV SCH ×3 (03:59→23:02)
[2019-12-18] MEDS: LEVOTHYROXINE SODIUM 25 MCG TABLET PO SCH (05:54)
[2019-12-18] MEDS: CEFTAROLINE FOSAMIL ACETATE 600 MG in SODIUM CHLORIDE 0.9% 250 ML IV SCH ×2 (05:54→19:00)
[2019-12-18 07:06] LABS: Hematocrit (blood only) 24.8 % (37-47); Hemoglobin 8.2 g/dL (12.0-16.0); Mean Corpuscular Hemoglobin 32.7 pg (25-34); Mean Corpuscular Hgb Conc 33.1 g/dL (32-36); Mean Corpuscular Volume 98.8 fL (80-100); Mean Platelet Volume 9.5 fL (7.4-10.4); Platelet Count 149 K/uL (130-400); RDW Coefficient of Variation 19.7 % (11.5-14.5); RDW Standard Deviation 69.8 fL (36.4-46.3); Red Blood Count 2.51 M/uL (4.2-5.4); White Blood Count 4.99 K/uL (4.8-10.8)
[2019-12-18 07:52] LABS: Calcium 7.5 mg/dl (8.5-10.1); Creatinine Clr Calc Pharmacy 69.1 ml/min; Est GFR (African American) 97.4; Est GFR (Non-African American) 84.1; Potassium 3.6 mmol/L (3.5-5.1)
[2019-12-18] MEDS: INSULIN ASPART 100 UNITS/ML 3 ML PEN SC SCH ×4 (09:09→22:26)
[2019-12-18] MEDS: SUCRALFATE 1 GM/10 ML UDC PO SCH ×4 (09:09→22:18)
[2019-12-18] MEDS: THIAMINE HCL 100 MG TAB PO SCH (09:10)
[2019-12-18] MEDS: METOPROLOL SUCC 25MG EXT REL TAB PO SCH ×2 (09:10→22:26)
[2019-12-18] MEDS: miSOPROStoL 100 MCG TAB PO SCH ×4 (09:11→22:19)
[2019-12-18] MEDS: POTASSIUM CHLORIDE 20 MEQ TABCR PO SCH ×2 (09:11→22:18)
[2019-12-18] MEDS: FLUDROCORTISONE ACETATE 0.1 MG TAB PO SCH (09:11)
[2019-12-18] MEDS: PANTOprazole 40 MG TAB PO SCH ×2 (09:12→22:26)
[2019-12-18] MEDS: LACTOBACILLUS ACIDOPHILUS 1 GM PACK PO SCH ×3 (09:12→17:27)
[2019-12-18] MEDS: GABAPENTIN 300 MG CAP PO SCH ×3 (09:12→22:17)
[2019-12-18] MEDS: MAGNESIUM CHLORIDE 64MG DELAYED REL TAB PO SCH ×2 (09:12→22:18)
[2019-12-18] MEDS: FOLIC ACID 1 MG TAB PO SCH (09:12)
[2019-12-18] MEDS: CYANOCOBALAMIN 500 MCG TABLET (VITAMIN B-12) PO SCH (09:13)
[2019-12-18] MEDS: HEPARIN SOD 5,000 UNIT/0.5 ML VIAL SQ SCH ×2 (09:13→22:19)
[2019-12-18] MEDS: MIDODRINE HCL 10 MG TAB PO SCH ×3 (09:16→17:28)
[2019-12-18] MEDS: MULTIVITAMIN TAB PO SCH (11:58)
[2019-12-18] MEDS: PROMETHAZINE HCL 12.5 MG in SODIUM CHLORIDE 0.9% 50 ML IV PRN ×2 (11:58→19:00)
--- NOTE | 2019-12-18 17:07 | Hospitalist Progress Note ---
Date of Service December 18, 2019 Assessment & Plan (1) SOB (shortness of breath): (2) Anemia: (3) Weakness: Related to symptomatic anemia Hgb on admission 7.3 Received 1 unit PRBC, then repeat hgb 8.3 Hgb dropped to 7 yesterday, then received 1 more unit PRBC Hgb 8.3 today 1 unit prbc on hold if needed since pt required irradiated blood PT/OT eval Monitor CBC (4) Chest pain, precordial: EKG on admission showed no significant ischemic changes Troponin x3 negative Continue Metoprolol Stable (5) Major depression: Stable (6) Cardiomyopathy: Possible related to Takotsubo from recent cardiology consult Echocardiogram on last admission showed an apical ballooning pattern along significantly reduced LV systolic function EF approximately 30 to 35%. Continue Low dose metoprolol Septic arthritis of knee, left Arthrocentesis on 11/22/2019 demonstrated 78,000 WBCs (88% polys). Cultures subsequently grew MRSA on last admission ID in the last admission recommended to continue IV abx for 6 weeks starting from 11/24/19 negative cx. Insertion of tunneled power port double lumen Catheter placed today by Vascular surgery Hypotension During previous admission Was starting on Midodrine BP has been stable Continue midodrine with BP parameters Resolved Diarrhea Stools sent for Cdiff pending Monitor electrolytes Continue gentle hydration Left rib fracture: Multiple left rib fractures due to recent fall. Analgesics PRN. Stable Hypokalemia K 3.6 today K stable Monitor BMP Anastomotic ulcer S/P gastric bypass: Status post [place]-en-[place] gastric bypass years ago. History anastomotic ulcer. No gross GI bleeding. Continue PPI, sucralfate, misoprostol Diabetes Hba1c 4.9 on 11/24 Continue insulin sliding scale Monitor BS DVT px on heparin subq Admission and Anticipated Discharge Date Admission Date: December 15, 2019 Subjective Pt was seen and examined Lying in bed with no distress Pt said that strength slightly improves She said that she has been having recurrent episodes of diarrhea Denies any chest pain, palpitation, dizziness and SOB Physical Exam Physical Exam: General- No acute distress Head- atraumatic Eyes- PERRL, EOMI, ENT- oropharynx clear Neck- supple, no JVD Lungs- clear to auscultation Heart- regular rhythm; no murmur Abdomen- normal bowel sounds, soft, nontender Extremities- no calf tenderness Neuro- alert, oriented x 3; PERRL, EOMI; no facial palsy; no dysarthria Skin- warm & dry Results & Data ([facility]) Vital Signs (Past 12 Hours) Vital Signs Temp Pulse Pulse Resp BP Pulse Ox 12/18/19 15:40 36.5 C 76 18 138/77 94 12/18/19 11:06 36.7 C 67 16 135/72 96 12/18/19 11:00 36.8 C 62 14 131/64 96 12/18/19 09:44 57 L 12/18/19 08:09 36.5 C 66 16 134/66 96 (1) Anemia Anemia type: unspecified type Qualified Code(s): D64.9 - Anemia, unspecified
[2019-12-18 17:26] LABS: Cdiff Antigen Positive
[2019-12-18 17:27] LABS: Cdiff Toxin A+B Positive Cdiff Toxin (Negative)
[2019-12-18] MEDS: VANCOMYCIN HCL 125 MG/2.5ML SOLN PO SCH (19:02)
[2019-12-18] MEDS: RASPBERRY SYRUP 5 ML UDP PO SCH (19:03)
[2019-12-18] MEDS: NORTRIPTYLINE HCL 25 MG CAP PO SCH (22:25)
[2019-12-19] MEDS: LEVOTHYROXINE SODIUM 25 MCG TABLET PO SCH (05:32)
[2019-12-19] MEDS: RASPBERRY SYRUP 5 ML UDP PO SCH ×4 (05:32→18:34)
[2019-12-19] MEDS: VANCOMYCIN HCL 125 MG/2.5ML SOLN PO SCH ×4 (05:32→17:40)
[2019-12-19] MEDS: CEFTAROLINE FOSAMIL ACETATE 600 MG in SODIUM CHLORIDE 0.9% 250 ML IV SCH ×2 (05:32→17:41)
[2019-12-19] MEDS: GABAPENTIN 300 MG CAP PO SCH ×3 (09:22→21:05)
[2019-12-19 09:23] LABS: Hematocrit (blood only) 24.2 % (37-47); Mean Corpuscular Hemoglobin 32.8 pg (25-34); Mean Corpuscular Hgb Conc 33.1 g/dL (32-36); Mean Corpuscular Volume 99.2 fL (80-100); Platelet Count 151 K/uL (130-400); RDW Coefficient of Variation 18.9 % (11.5-14.5); RDW Standard Deviation 67.8 fL (36.4-46.3); Red Blood Count 2.44 M/uL (4.2-5.4)
[2019-12-19] MEDS: FOLIC ACID 1 MG TAB PO SCH (09:23)
[2019-12-19] MEDS: INSULIN ASPART 100 UNITS/ML 3 ML PEN SC SCH ×4 (09:23→20:59)
[2019-12-19] MEDS: SUCRALFATE 1 GM/10 ML UDC PO SCH ×4 (09:23→21:04)
[2019-12-19] MEDS: FLUDROCORTISONE ACETATE 0.1 MG TAB PO SCH (09:23)
[2019-12-19] MEDS: CYANOCOBALAMIN 500 MCG TABLET (VITAMIN B-12) PO SCH (09:24)
[2019-12-19] MEDS: MIDODRINE HCL 10 MG TAB PO SCH ×3 (09:24→17:41)
[2019-12-19] MEDS: LACTOBACILLUS ACIDOPHILUS 1 GM PACK PO SCH ×3 (09:24→17:43)
[2019-12-19] MEDS: HEPARIN SOD 5,000 UNIT/0.5 ML VIAL SQ SCH ×2 (09:25→21:00)
[2019-12-19] MEDS: METOPROLOL SUCC 25MG EXT REL TAB PO SCH ×2 (09:25→21:05)
[2019-12-19] MEDS: POTASSIUM CHLORIDE 20 MEQ TABCR PO SCH ×2 (09:25→21:00)
[2019-12-19] MEDS: MAGNESIUM CHLORIDE 64MG DELAYED REL TAB PO SCH ×2 (09:25→21:06)
[2019-12-19] MEDS: PANTOprazole 40 MG TAB PO SCH ×2 (09:25→21:06)
[2019-12-19] MEDS: miSOPROStoL 100 MCG TAB PO SCH ×4 (09:26→21:00)
[2019-12-19] MEDS: THIAMINE HCL 100 MG TAB PO SCH (09:26)
[2019-12-19] MEDS: MULTIVITAMIN TAB PO SCH (09:26)
[2019-12-19 09:50] LABS: BUN Creatinine Ratio 10.1 (10-20); Calcium 7.3 mg/dl (8.5-10.1); Creatinine Clr Calc Pharmacy 76.1 ml/min; Est GFR (African American) 108.1; Est GFR (Non-African American) 93.3; Potassium 3.4 mmol/L (3.5-5.1)
[2019-12-19] MEDS: SODIUM CHLORIDE 0.9% 1000ML 1,000 ML IV SCH (12:20)
[2019-12-19] MEDS ORDERED: POTASSIUM CHLORIDE 20 MEQ TABCR PO STA (13:12)
--- NOTE | 2019-12-19 13:12 | Hospitalist Progress Note ---
Date of Service December 19, 2019 Assessment & Plan (1) C. difficile diarrhea: Stools positive for Cdiff on IV abx to complete 6 weeks course Monitor electrolytes Continue gentle hydration ID on board plan to continue PO vanco for 1 month (2) SOB (shortness of breath): (3) Anemia: (4) Weakness: Related to symptomatic anemia Hgb on admission 7.3 Received 1 unit PRBC, then repeat hgb 8.3 Hgb dropped to 7 , then received 1 more unit PRBC (received a total of 2 units so far during hospital stay ) Hgb 8.0 today 1 unit prbc on hold if needed since pt required irradiated blood PT/OT eval Monitor CBC (5) Chest pain, precordial: EKG on admission showed no significant ischemic changes Troponin x3 negative Continue Metoprolol Stable (6) Major depression: Stable (7) Cardiomyopathy: Possible related to Takotsubo from recent cardiology consult Echocardiogram on last admission showed an apical ballooning pattern along significantly reduced LV systolic function EF approximately 30 to 35%. Continue Low dose metoprolol Septic arthritis of knee, left Arthrocentesis on 11/22/2019 demonstrated 78,000 WBCs (88% polys). Cultures subsequently grew MRSA on last admission ID in the last admission recommended to continue IV abx for 6 weeks starting from 11/24/19 negative cx. Insertion of tunneled power port double lumen Catheter placed today by Vascular surgery Hypotension During previous admission Was starting on Midodrine BP has been stable Continue midodrine with BP parameters Resolved Left rib fracture: Multiple left rib fractures due to recent fall. Analgesics PRN. Stable Hypokalemia K 3.4 today K replaced Monitor BMP Anastomotic ulcer S/P gastric bypass: Status post [place] gastric bypass years ago. History anastomotic ulcer. No gross GI bleeding. Continue PPI, sucralfate, misoprostol Diabetes Hba1c 4.9 on 11/24 Continue insulin sliding scale Monitor BS DVT px on heparin subq Admission and Anticipated Discharge Date Admission Date: December 15, 2019 Subjective Pt was seen and examined Lying in bed with no distress Pt said that she continues to have diarrhea She said that she feels weak Denies any chest pain, palpitation and SOB Physical Exam Physical Exam: General- No acute distress Head- atraumatic Eyes- PERRL, EOMI, ENT- oropharynx clear Neck- supple, no JVD Lungs- clear to auscultation Heart- regular rhythm; no murmur Abdomen- normal bowel sounds, soft, nontender Extremities- no calf tenderness Neuro- alert, oriented x 3; PERRL, EOMI; no facial palsy; no dysarthria Skin- warm & dry Results & Data ([facility]) Vital Signs (Past 12 Hours) Vital Signs Temp Pulse Resp BP Pulse Ox 12/19/19 12:04 36.8 C 65 16 92/54 L 99 12/19/19 07:44 36.8 C 110 H 16 119/68 98 12/19/19 05:16 36.7 C 67 18 127/77 98 (1) Anemia Anemia type: unspecified type Qualified Code(s): D64.9 - Anemia, unspecified
--- NOTE | 2019-12-19 13:48 | Infectious Disease Consult ---
Date of Consultation December 19, 2019 Assessment & Plan (1) C. difficile diarrhea: continue vanco, would give 30 days at QID dosing then will likely need tapering dose. History of Present Illness Attending Physician: Tomas Moore MD pt admitted several days ago with diarrhea and weakness, at [facility] for IV ceftaroline/rehab for prolonged hospital stay with MRSA sepsis, empyema and infected knee, tentative stop date 01/05. she was found to have c diff and has been on vanco, ID consulted for duration due to ongoing IV abx. no f/c. eating and drinking. states breathing overall improved. no f/c. no abd pain, still with diarrhea and intermittent cramping but overall better. no gu symptoms. wbc 4, creat 0.7, CXR min effusions, blood cultures negative. Allergies Allergy/AdvReac Type Severity Reaction Status Date / Time Sulfa (Sulfonamide Allergy Severe FACE/THROAT Verified 12/15/19 12:44 Antibiotics) SWELL UP Home Medications Home Medications Medication Instructions Recorded Confirmed Type misoprostol [Cytotec] 100 mcg PO QID 08/16/19 12/15/19 History thiamine HCl (vitamin B1) [Vitamin 100 mg PO QAM #30 tab 08/22/19 12/15/19 Rx B-1] meclizine 25 mg PO Q8H PRN #30 tab 09/29/19 12/15/19 Rx fludrocortisone 0.1 mg PO QAM 11/17/19 12/15/19 History gabapentin 300 mg PO TID 11/17/19 12/15/19 History levothyroxine 25 mcg PO QAM 11/17/19 12/15/19 History nortriptyline 25 mg PO HS 11/17/19 12/15/19 History Lactobacillus acidoph-L.bulgar 1 g PO TIDM #60 ea 12/12/19 12/15/19 Rx [Floranex] acetaminophen [Mapap 650 mg PO Q4H PRN #100 tab 12/12/19 12/15/19 Rx (acetaminophen)] bisacodyl [Laxative (bisacodyl)] 10 mg WI DAILY PRN #30 ea 12/12/19 12/15/19 Rx ceftaroline fosamil 600 mg IV Q12H #50 ea 02/07/20 02/10/20 Rx magnesium chloride [Mag 64] 64 mg PO BID #60 tab 12/12/19 12/15/19 Rx metoprolol succinate 12.5 mg PO BID #60 tab 12/12/19 12/15/19 Rx pantoprazole 40 mg PO BID #60 tab 12/12/19 12/15/19 Rx cyanocobalamin (vitamin B-12) 500 mcg PO QAM 12/15/19 12/15/19 History [Vitamin B-12] docusate sodium 100 mg PO BID PRN 12/15/19 12/15/19 History enoxaparin [Lovenox] 40 mg SUBCUT QAM 12/15/19 12/15/19 History folic acid 1 mg PO QAM 12/15/19 12/15/19 History multivitamin [Daily-Satnam] 1 tab PO QDL 12/15/19 12/15/19 History potassium chloride [Klor-Con M20] 20 meq PO BID 12/15/19 12/15/19 History sucralfate 10 ml PO ACHS 12/15/19 12/15/19 History Patient History Medical History Acute alcohol abuse (Chronic) Alcohol abuse Alcoholism Anemia, iron deficiency (Chronic) Arthritis (Chronic) Bacteremia Chest tube in place Diabetes mellitus type 2, controlled DVT prophylaxis Empyema Esophagus disorder Gram positive sepsis Hypokalemia Poor intravenous access Small bowel obstruction (Resolved) Ulcer GI Surgical History History of incision and drainage (08/18/19) Left Axillary Abscess Incision and Drainage Dr. Perdue 08/18/19 Status post appendectomy (Chronic) Status post cholecystectomy (Chronic) Status post gastric bypass for obesity (Chronic) Status post hysterectomy (Chronic) Family History Other No pertinent family history in first degree relatives Social History Preferred Language: Scottish Communication Ability: Effective Is Support Analyst Required: No Beliefs That Will Affect Care: None and Spiritual marital status: Current Living Situation: Rehab Current Living Situation Comment: [facility] Other Information That Helps Us Care for You: No Feels Safe at Home: Yes Safety Concerns: Feels Safe At This Time Smoking Status: Former smoker Tobacco Type: cigarettes ; Second Hand Exposure: Yes ; Hx Alcohol Use: Yes Alcohol type: beer and hard liquor Hx Substance Use: No Review of Systems Review of Systems: All systems reviewed & are unremarkable except as noted in HPI & below Physical Exam Constitutional: WD/WN, vitals as above Eyes: PERRL, conjunctivae normal, anicteric sclerae ENMT: external ear and nose normal, oropharynx normal Neck: normal visual inspection Respiratory: normal respiratory effort, lungs clear to auscultation Cardiovascular: RRR, no murmur, no edema Gastrointestinal (Abdomen): normal bowel sounds, soft, nontender, no hepatosplenomegaly Musculoskeletal: no cyanosis or clubbing, extremities motor strength 5/5 Skin: no rashes, warm and dry Psychiatric: A+Ox3, euthymic affect Results & Data ([facility]) Vital Signs (Past 12 Hours) Vital Signs Temp Pulse Resp BP Pulse Ox 12/19/19 12:04 36.8 C 65 16 92/54 L 99 12/19/19 07:44 36.8 C 110 H 16 119/68 98 12/19/19 05:16 36.7 C 67 18 127/77 98 Laboratory Results Microbiology 12/15/19 13:58 Blood Aerobic Blood Culture - Preliminary No growth in Aerobic bottle after 48 hours. 12/15/19 13:58 Blood Anaerobic Blood Culture - Preliminary No growth in Anaerobic bottle after 48 hours. 12/15/19 13:07 Blood Aerobic Blood Culture - Preliminary No growth in Aerobic bottle after 48 hours. 12/15/19 13:07 Blood Anaerobic Blood Culture - Preliminary No growth in Anaerobic bottle after 48 hours. PG Care Time/CCT Total # of Minutes Spent Total Time Spent with Patient: Total time spent is greater than 50% in coordination of care (as documented) at patient's floor/unit and/or counseling patient: Coding Level of Care Code 93929 Inpt Consult Level 4 Diagnoses C. difficile diarrhea A04.72
[2019-12-19] MEDS: NORTRIPTYLINE HCL 25 MG CAP PO SCH (21:04)
[2019-12-20] MEDS: RASPBERRY SYRUP 5 ML UDP PO SCH ×4 (00:40→18:13)
[2019-12-20] MEDS: VANCOMYCIN HCL 125 MG/2.5ML SOLN PO SCH ×4 (00:41→18:13)
[2019-12-20] MEDS: CEFTAROLINE FOSAMIL ACETATE 600 MG in SODIUM CHLORIDE 0.9% 250 ML IV SCH ×2 (05:56→18:15)
[2019-12-20] MEDS: LEVOTHYROXINE SODIUM 25 MCG TABLET PO SCH (06:08)
[2019-12-20 06:23] LABS: Hematocrit (blood only) 25.3 % (37-47); Hemoglobin 8.5 g/dL (12.0-16.0); Mean Corpuscular Hemoglobin 33.7 pg (25-34); Mean Corpuscular Hgb Conc 33.6 g/dL (32-36); Mean Corpuscular Volume 100.4 fL (80-100); Mean Platelet Volume 9.7 fL (7.4-10.4); Platelet Count 201 K/uL (130-400); RDW Coefficient of Variation 18.5 % (11.5-14.5); RDW Standard Deviation 67.8 fL (36.4-46.3); Red Blood Count 2.52 M/uL (4.2-5.4); White Blood Count 3.85 K/uL (4.8-10.8)
[2019-12-20 06:50] LABS: Calcium 7.5 mg/dl (8.5-10.1); Creatinine Clr Calc Pharmacy 77.2 ml/min; Est GFR (African American) 108.7; Est GFR (Non-African American) 93.7; Potassium 3.8 mmol/L (3.5-5.1)
[2019-12-20] MEDS: THIAMINE HCL 100 MG TAB PO SCH (09:40)
[2019-12-20] MEDS: SUCRALFATE 1 GM/10 ML UDC PO SCH ×4 (09:41→21:44)
[2019-12-20] MEDS: miSOPROStoL 100 MCG TAB PO SCH ×4 (09:41→21:44)
[2019-12-20] MEDS: LACTOBACILLUS ACIDOPHILUS 1 GM PACK PO SCH ×3 (09:41→18:12)
[2019-12-20] MEDS: MIDODRINE HCL 10 MG TAB PO SCH ×3 (09:42→18:14)
[2019-12-20] MEDS: PANTOprazole 40 MG TAB PO SCH ×2 (09:42→21:46)
[2019-12-20] MEDS: FLUDROCORTISONE ACETATE 0.1 MG TAB PO SCH (09:43)
[2019-12-20] MEDS: HEPARIN SOD 5,000 UNIT/0.5 ML VIAL SQ SCH ×2 (09:43→21:52)
[2019-12-20] MEDS: POTASSIUM CHLORIDE 20 MEQ TABCR PO SCH ×2 (09:44→21:44)
[2019-12-20] MEDS: FOLIC ACID 1 MG TAB PO SCH (09:44)
[2019-12-20] MEDS: GABAPENTIN 300 MG CAP PO SCH ×3 (09:45→21:45)
[2019-12-20] MEDS: MAGNESIUM CHLORIDE 64MG DELAYED REL TAB PO SCH ×2 (09:45→21:44)
[2019-12-20] MEDS: CYANOCOBALAMIN 500 MCG TABLET (VITAMIN B-12) PO SCH (09:46)
[2019-12-20] MEDS: METOPROLOL SUCC 25MG EXT REL TAB PO SCH ×2 (09:47→21:46)
[2019-12-20] MEDS: INSULIN ASPART 100 UNITS/ML 3 ML PEN SC SCH ×4 (09:52→21:52)
[2019-12-20] MEDS: PROMETHAZINE HCL 12.5 MG in SODIUM CHLORIDE 0.9% 50 ML IV PRN (11:15)
[2019-12-20] MEDS: MULTIVITAMIN TAB PO SCH (13:11)
--- NOTE | 2019-12-20 16:44 | Hospitalist Progress Note ---
Date of Service December 20, 2019 Assessment & Plan (1) C. difficile diarrhea: Stools positive for Cdiff on IV abx to complete 6 weeks course Last BM was last night Will consider to get a KUB done due to recurrent vomiting today ID on board plan to continue PO vanco for 1 month Continue monitor closely (2) SOB (shortness of breath): (3) Anemia: (4) Weakness: Related to symptomatic anemia Hgb on admission 7.3 Received 1 unit PRBC, then repeat hgb 8.3 Hgb dropped to 7 , then received 1 more unit PRBC (received a total of 2 units so far during hospital stay ) Hgb improved to 8.5 today 1 unit prbc on hold if needed since pt required irradiated blood PT/OT eval Monitor CBC (5) Chest pain, precordial: EKG on admission showed no significant ischemic changes Troponin x3 negative Continue Metoprolol Stable (6) Major depression: Stable (7) Cardiomyopathy: Possible related to Takotsubo from recent cardiology consult Echocardiogram on last admission showed an apical ballooning pattern along significantly reduced LV systolic function EF approximately 30 to 35%. Continue Low dose metoprolol Septic arthritis of knee, left Arthrocentesis on 11/22/2019 demonstrated 78,000 WBCs (88% polys). Cultures subsequently grew MRSA on last admission ID in the last admission recommended to continue IV abx for 6 weeks starting from 11/24/19 negative cx. Insertion of tunneled power port double lumen Catheter placed today by Vascular surgery Hypotension During previous admission Was starting on Midodrine BP has been stable Continue midodrine with BP parameters Resolved Left rib fracture: Multiple left rib fractures due to recent fall. Analgesics PRN. Stable Hypokalemia K 3.8 today K stable Monitor BMP Anastomotic ulcer S/P gastric bypass: Status post [place] gastric bypass years ago. History anastomotic ulcer. No gross GI bleeding. Continue PPI, sucralfate, misoprostol Diabetes Hba1c 4.9 on 11/24 Continue insulin sliding scale Monitor BS DVT px on heparin subq Admission and Anticipated Discharge Date Admission Date: December 15, 2019 Subjective Pt was seen and examined Lying in bed with no distress Pt said that her last bowel movement was last night She said that she vomited 3 times today She said that her abdominal is tender Denies any chest pain, palpitation, dizziness and SOB Physical Exam Physical Exam: General- No acute distress Head- atraumatic Eyes- PERRL, EOMI, ENT- oropharynx clear Neck- supple, no JVD Lungs- clear to auscultation Heart- regular rhythm; no murmur Abdomen- normal bowel sounds, soft, +tender with palpation Extremities- no calf tenderness Neuro- alert, oriented x 3; PERRL, EOMI; no facial palsy; no dysarthria Skin- warm & dry Results & Data ([facility]) Vital Signs (Past 12 Hours) Vital Signs Temp Pulse Resp BP Pulse Ox 12/20/19 15:59 36.9 C 73 16 117/67 95 12/20/19 07:54 36.3 C L 68 16 117/61 96 (1) Anemia Anemia type: unspecified type Qualified Code(s): D64.9 - Anemia, unspecified
--- NOTE | 2019-12-20 18:31 | XRay Report ---
XR KUB/Abdomen 1 view CLINICAL HISTORY: vomiting COMPARISON STUDY: No previous studies for comparison. FINDINGS: There are left upper quadrant sutures line suggesting a prior gastric bypass. There is no p athologic bowel dilatation. Pelvic basin calcifications likely represent phleboliths. IMPRESSION: Postsurgical changes. Nonobstructive bowel gas pattern. ACT 112: Negative or not required by law. Electronically signed by: Jevon Fitzpatrick M.D. 12/20/2019 6:30 PM
[2019-12-20] MEDS: NORTRIPTYLINE HCL 25 MG CAP PO SCH (21:44)
[2019-12-21] MEDS: VANCOMYCIN HCL 125 MG/2.5ML SOLN PO SCH ×4 (00:30→18:08)
[2019-12-21] MEDS: RASPBERRY SYRUP 5 ML UDP PO SCH ×4 (00:30→18:07)
[2019-12-21] MEDS: CEFTAROLINE FOSAMIL ACETATE 600 MG in SODIUM CHLORIDE 0.9% 250 ML IV SCH ×2 (05:35→18:11)
[2019-12-21] MEDS: LEVOTHYROXINE SODIUM 25 MCG TABLET PO SCH (05:35)
[2019-12-21 07:20] LABS: Hematocrit (blood only) 24.1 % (37-47); Hemoglobin 7.9 g/dL (12.0-16.0); Mean Corpuscular Hemoglobin 33.3 pg (25-34); Mean Corpuscular Hgb Conc 32.8 g/dL (32-36); Mean Corpuscular Volume 101.7 fL (80-100); Mean Platelet Volume 9.1 fL (7.4-10.4); Platelet Count 182 K/uL (130-400); RDW Coefficient of Variation 18.5 % (11.5-14.5); Red Blood Count 2.37 M/uL (4.2-5.4); White Blood Count 4.01 K/uL (4.8-10.8)
[2019-12-21 07:53] LABS: BUN Creatinine Ratio 6.2 (10-20); Calcium 7.4 mg/dl (8.5-10.1); Est GFR (Non-African American) 85.4; Potassium 3.8 mmol/L (3.5-5.1)
[2019-12-21] MEDS ORDERED: SODIUM CHLORIDE 0.9% 250 ML IV PRN ×2 (08:02→08:13)
[2019-12-21] MEDS: INSULIN ASPART 100 UNITS/ML 3 ML PEN SC SCH ×4 (08:21→21:30)
[2019-12-21] MEDS: miSOPROStoL 100 MCG TAB PO SCH ×4 (08:42→21:35)
[2019-12-21] MEDS: MIDODRINE HCL 10 MG TAB PO SCH ×3 (08:42→17:46)
[2019-12-21] MEDS: LACTOBACILLUS ACIDOPHILUS 1 GM PACK PO SCH ×3 (08:43→17:37)
[2019-12-21] MEDS: METOPROLOL SUCC 25MG EXT REL TAB PO SCH ×2 (08:43→21:34)
[2019-12-21] MEDS: THIAMINE HCL 100 MG TAB PO SCH (08:43)
[2019-12-21] MEDS: FLUDROCORTISONE ACETATE 0.1 MG TAB PO SCH (08:43)
[2019-12-21] MEDS: MAGNESIUM CHLORIDE 64MG DELAYED REL TAB PO SCH ×2 (08:44→21:34)
[2019-12-21] MEDS: FOLIC ACID 1 MG TAB PO SCH (08:44)
[2019-12-21] MEDS: GABAPENTIN 300 MG CAP PO SCH ×3 (08:44→21:34)
[2019-12-21] MEDS: CYANOCOBALAMIN 500 MCG TABLET (VITAMIN B-12) PO SCH (08:44)
[2019-12-21] MEDS: PANTOprazole 40 MG TAB PO SCH ×2 (08:44→21:35)
[2019-12-21] MEDS: SUCRALFATE 1 GM/10 ML UDC PO SCH ×4 (08:44→21:35)
[2019-12-21] MEDS: POTASSIUM CHLORIDE 20 MEQ TABCR PO SCH ×2 (08:45→21:35)
[2019-12-21] MEDS: HEPARIN SOD 5,000 UNIT/0.5 ML VIAL SQ SCH ×2 (08:45→21:30)
[2019-12-21] MEDS: MULTIVITAMIN TAB PO SCH (12:38)
--- NOTE | 2019-12-21 14:00 | Hospitalist Progress Note ---
Date of Service December 21, 2019 Assessment & Plan (1) C. difficile diarrhea: Stools positive for Cdiff on IV abx to complete 6 weeks course Diarrhea improves significantly KUB done yesterday showed nonobstructive bowel gas pattern. ID on board plan to continue PO vanco for 1 month Diarrhea improves significantly (2) SOB (shortness of breath): (3) Anemia: (4) Weakness: Related to symptomatic anemia Hgb on admission 7.3 Received 1 unit PRBC, then repeat hgb 8.3 Hgb dropped to 7 , then received 1 more unit PRBC (received a total of 3 units so far during hospital stay ) Hgb dropped to 7.9 Will transfuse 1 unit PRBC today PT/OT eval Monitor CBC (5) Chest pain, precordial: EKG on admission showed no significant ischemic changes Troponin x3 negative Continue Metoprolol Stable (6) Major depression: Stable (7) Cardiomyopathy: Possible related to Takotsubo from recent cardiology consult Echocardiogram on last admission showed an apical ballooning pattern along significantly reduced LV systolic function EF approximately 30 to 35%. Continue Low dose metoprolol Septic arthritis of knee, left Arthrocentesis on 11/22/2019 demonstrated 78,000 WBCs (88% polys). Cultures subsequently grew MRSA on last admission ID in the last admission recommended to continue IV abx for 6 weeks starting from 11/24/19 negative cx. Insertion of tunneled power port double lumen Catheter placed today by Vascular surgery Hypotension During previous admission Was starting on Midodrine BP has been stable Continue midodrine with BP parameters Resolved Left rib fracture: Multiple left rib fractures due to recent fall. Analgesics PRN. Stable Hypokalemia K 3.8 today K stable Monitor BMP Anastomotic ulcer S/P gastric bypass: Status post [place] gastric bypass years ago. History anastomotic ulcer. No gross GI bleeding. Continue PPI, sucralfate, misoprostol Diabetes Hba1c 4.9 on 11/24 Continue insulin sliding scale Monitor BS DVT px on heparin subq Admission and Anticipated Discharge Date Admission Date: December 15, 2019 Subjective Pt was seen and examined Lying in bed with no distress Pt said that she feels a little better today She said that she does not have anymore vomiting She said that her diarrhea improves and only had 1 BM today Denies any chest pain, palpitation, dizziness and SOB Physical Exam Physical Exam: General- No acute distress Head- atraumatic Eyes- PERRL, EOMI, ENT- oropharynx clear Neck- supple, no JVD Lungs- clear to auscultation Heart- regular rhythm; no murmur Abdomen- normal bowel sounds, soft, +mild tender with palpation Extremities- no calf tenderness Neuro- alert, oriented x 3; PERRL, EOMI; no facial palsy; no dysarthria Skin- warm & dry Results & Data ([facility]) Vital Signs (Past 12 Hours) Vital Signs Temp Pulse Pulse Resp BP BP Pulse Ox 12/21/19 13:17 36.8 C 58 L 14 157/75 H 96 12/21/19 11:58 36.6 C 59 L 14 144/78 H 96 12/21/19 11:49 36.7 C 55 L 13 143/71 H 95 12/21/19 10:58 36.7 C 57 L 13 153/82 H 96 12/21/19 10:35 36.7 C 57 L 16 149/72 H 96 12/21/19 10:13 36.5 C 58 L 16 133/73 95 12/21/19 09:55 36.5 C 59 L 16 131/75 12/21/19 07:57 36.6 C 71 16 144/70 H 95 (1) Anemia Anemia type: unspecified type Qualified Code(s): D64.9 - Anemia, unspecified
[2019-12-21] MEDS: NORTRIPTYLINE HCL 25 MG CAP PO SCH (21:35)
[2019-12-22] MEDS: RASPBERRY SYRUP 5 ML UDP PO SCH ×5 (00:13→23:59)
[2019-12-22] MEDS: VANCOMYCIN HCL 125 MG/2.5ML SOLN PO SCH ×5 (00:13→23:59)
[2019-12-22] MEDS: LEVOTHYROXINE SODIUM 25 MCG TABLET PO SCH (05:39)
[2019-12-22] MEDS: CEFTAROLINE FOSAMIL ACETATE 600 MG in SODIUM CHLORIDE 0.9% 250 ML IV SCH ×2 (05:39→17:55)
[2019-12-22 05:59] LABS: Hematocrit (blood only) 28.9 % (37-47); Hemoglobin 9.6 g/dL (12.0-16.0); Mean Corpuscular Hemoglobin 32.7 pg (25-34); Mean Corpuscular Hgb Conc 33.2 g/dL (32-36); Mean Corpuscular Volume 98.3 fL (80-100); Mean Platelet Volume 9.4 fL (7.4-10.4); Platelet Count 196 K/uL (130-400); RDW Coefficient of Variation 20.1 % (11.5-14.5); RDW Standard Deviation 71.7 fL (36.4-46.3); Red Blood Count 2.94 M/uL (4.2-5.4); White Blood Count 4.33 K/uL (4.8-10.8)
[2019-12-22] MEDS: SUCRALFATE 1 GM/10 ML UDC PO SCH ×4 (07:42→21:39)
[2019-12-22] MEDS: LACTOBACILLUS ACIDOPHILUS 1 GM PACK PO SCH ×3 (07:42→17:55)
[2019-12-22] MEDS: MIDODRINE HCL 10 MG TAB PO SCH ×3 (07:43→16:58)
[2019-12-22] MEDS: GABAPENTIN 300 MG CAP PO SCH ×3 (09:10→21:39)
[2019-12-22] MEDS: FOLIC ACID 1 MG TAB PO SCH (09:10)
[2019-12-22] MEDS: METOPROLOL SUCC 25MG EXT REL TAB PO SCH ×2 (09:10→21:39)
[2019-12-22] MEDS: MAGNESIUM CHLORIDE 64MG DELAYED REL TAB PO SCH ×2 (09:10→21:39)
[2019-12-22] MEDS: PANTOprazole 40 MG TAB PO SCH ×2 (09:11→21:39)
[2019-12-22] MEDS: miSOPROStoL 100 MCG TAB PO SCH ×4 (09:11→21:39)
[2019-12-22] MEDS: THIAMINE HCL 100 MG TAB PO SCH (09:11)
[2019-12-22] MEDS: CYANOCOBALAMIN 500 MCG TABLET (VITAMIN B-12) PO SCH (09:11)
[2019-12-22] MEDS: FLUDROCORTISONE ACETATE 0.1 MG TAB PO SCH (09:11)
[2019-12-22] MEDS: POTASSIUM CHLORIDE 20 MEQ TABCR PO SCH ×2 (09:11→21:39)
[2019-12-22] MEDS: HEPARIN SOD 5,000 UNIT/0.5 ML VIAL SQ SCH ×2 (09:14→21:44)
[2019-12-22] MEDS: INSULIN ASPART 100 UNITS/ML 3 ML PEN SC SCH ×4 (09:15→21:43)
[2019-12-22] MEDS: PROMETHAZINE HCL 12.5 MG in SODIUM CHLORIDE 0.9% 50 ML IV PRN (11:56)
[2019-12-22] MEDS: MULTIVITAMIN TAB PO SCH (11:57)
[2019-12-22 13:48] LABS: Appearance Urine Clear (Clear); Bilirubin Urine Negative (Negative); Blood Urine Negative (Negative); Color Urine Dark Yellow; Glucose Urine UA Negative (Negative); Ketones Urine Negative (Negative); Leukocyte Esterase Urine Negative (Negative); Nitrite Urine Negative (Negative); Protein Urine Negative (Negative); Specific Gravity Urine 1.013 (1.000-1.030); Urobilinogen Urine Negative (Negative)
--- NOTE | 2019-12-22 15:27 | Internal Med Progress Note ---
Date of Service December 22, 2019 Assessment & Plan (1) Encounter for rehabilitation evaluation: If Hgb remains stable, she appears to be on track for return to the rehab hospital. Already seeing some improvement today. Admission and Anticipated Discharge Date Admission Date: December 15, 2019 Subjective Returning to check progress toward medical stability for rehab hospital care. Hgb noted. She reports feeling some better. Stools have slowed. I spoke with OT today. She was able to ambulate with assistance to the bathroom. Did some better with PT activities also. Less SOB reported. Review of Systems Review of Systems: As noted above Physical Exam Physical Exam: No new findings Results & Data ([facility]) Vital Signs (Past 12 Hours) Vital Signs Temp Pulse Resp BP Pulse Ox 12/22/19 14:16 131/75 12/22/19 11:56 88/65 L 12/22/19 07:02 36.5 C 61 16 131/76 95
--- NOTE | 2019-12-22 20:01 | Hospitalist Progress Note ---
Date of Service December 22, 2019 Assessment & Plan (1) C. difficile diarrhea: Stools positive for Cdiff on IV abx to complete 6 weeks course Diarrhea improves significantly KUB done yesterday showed nonobstructive bowel gas pattern. ID on board plan to continue PO vanco for 1 month Diarrhea improves significantly (2) SOB (shortness of breath): (3) Anemia: (4) Weakness: Related to symptomatic anemia Hgb on admission 7.3 Received 1 unit PRBC, then repeat hgb 8.3 Hgb dropped to 7 , then received 1 more unit PRBC (received a total of 3 units so far during hospital stay ) Hgb dropped to 7.9 yesterday then received 1 unit prbc Hgb 9.6 today PT/OT eval Monitor CBC (5) Chest pain, precordial: EKG on admission showed no significant ischemic changes Troponin x3 negative Continue Metoprolol Stable (6) Major depression: Stable (7) Cardiomyopathy: Possible related to Takotsubo from recent cardiology consult Echocardiogram on last admission showed an apical ballooning pattern along significantly reduced LV systolic function EF approximately 30 to 35%. Continue Low dose metoprolol Septic arthritis of knee, left Arthrocentesis on 11/22/2019 demonstrated 78,000 WBCs (88% polys). Cultures subsequently grew MRSA on last admission ID in the last admission recommended to continue IV abx for 6 weeks starting from 11/24/19 negative cx. Insertion of tunneled power port double lumen Catheter placed today by Vascular surgery Hypotension During previous admission Was starting on Midodrine BP has been stable Continue midodrine with BP parameters Resolved Left rib fracture: Multiple left rib fractures due to recent fall. Analgesics PRN. Stable Hypokalemia K 3.8 today K stable Monitor BMP Anastomotic ulcer S/P gastric bypass: Status post [place] gastric bypass years ago. History anastomotic ulcer. No gross GI bleeding. Continue PPI, sucralfate, misoprostol Diabetes Hba1c 4.9 on 11/24 Continue insulin sliding scale Monitor BS DVT px on heparin subq Admission and Anticipated Discharge Date Admission Date: December 15, 2019 Subjective Pt was seen and examined Lying in bed with no distress Pt said that she feels much better She has no diarrhea today Denies any chest pain, palpitation, dizziness and SOB Physical Exam Physical Exam: General- No acute distress Head- atraumatic Eyes- PERRL, EOMI, ENT- oropharynx clear Neck- supple, no JVD Lungs- clear to auscultation Heart- regular rhythm; no murmur Abdomen- normal bowel sounds, soft, +mild tender with palpation Extremities- no calf tenderness Neuro- alert, oriented x 3; PERRL, EOMI; no facial palsy; no dysarthria Skin- warm & dry Results & Data ([facility]) Vital Signs (Past 12 Hours) Vital Signs Temp Pulse Resp BP Pulse Ox 12/22/19 16:57 149/79 H 12/22/19 15:34 36.5 C 61 18 134/67 95 12/22/19 14:16 131/75 12/22/19 11:56 88/65 L (1) Anemia Anemia type: unspecified type Qualified Code(s): D64.9 - Anemia, unspecified
[2019-12-22] MEDS: NORTRIPTYLINE HCL 25 MG CAP PO SCH (21:39)
[2019-12-22 23:04] VITALS: TEMP 98.1
[2019-12-23] MEDS: VANCOMYCIN HCL 125 MG/2.5ML SOLN PO SCH ×2 (05:30→12:38)
[2019-12-23] MEDS: RASPBERRY SYRUP 5 ML UDP PO SCH ×2 (05:30→12:38)
[2019-12-23] MEDS: CEFTAROLINE FOSAMIL ACETATE 600 MG in SODIUM CHLORIDE 0.9% 250 ML IV SCH (05:30)
[2019-12-23] MEDS: LEVOTHYROXINE SODIUM 25 MCG TABLET PO SCH (05:30)
[2019-12-23 08:01] VITALS: BP 132/64; O2SAT 95
[2019-12-23] MEDS: INSULIN ASPART 100 UNITS/ML 3 ML PEN SC SCH ×2 (08:36→12:31)
[2019-12-23] MEDS: MULTIVITAMIN TAB PO SCH (08:37)
[2019-12-23] MEDS: PANTOprazole 40 MG TAB PO SCH (08:37)
[2019-12-23] MEDS: HEPARIN SOD 5,000 UNIT/0.5 ML VIAL SQ SCH (08:38)
[2019-12-23] MEDS: miSOPROStoL 100 MCG TAB PO SCH ×2 (08:39→12:39)
[2019-12-23] MEDS: FOLIC ACID 1 MG TAB PO SCH (08:39)
[2019-12-23] MEDS: POTASSIUM CHLORIDE 20 MEQ TABCR PO SCH (08:40)
[2019-12-23] MEDS: THIAMINE HCL 100 MG TAB PO SCH (08:40)
[2019-12-23] MEDS: GABAPENTIN 300 MG CAP PO SCH ×2 (08:40→13:46)
[2019-12-23] MEDS: MAGNESIUM CHLORIDE 64MG DELAYED REL TAB PO SCH (08:41)
[2019-12-23] MEDS: LACTOBACILLUS ACIDOPHILUS 1 GM PACK PO SCH ×2 (08:41→12:38)
[2019-12-23] MEDS: MIDODRINE HCL 10 MG TAB PO SCH ×2 (08:41→12:38)
[2019-12-23] MEDS: FLUDROCORTISONE ACETATE 0.1 MG TAB PO SCH (08:41)
[2019-12-23] MEDS: CYANOCOBALAMIN 500 MCG TABLET (VITAMIN B-12) PO SCH (08:43)
[2019-12-23] MEDS: METOPROLOL SUCC 25MG EXT REL TAB PO SCH (08:43)
[2019-12-23] MEDS: SUCRALFATE 1 GM/10 ML UDC PO SCH ×2 (08:45→12:37)
[2019-12-23 09:12] LABS: Hematocrit (blood only) 29.8 % (37-47); Hemoglobin 9.7 g/dL (12.0-16.0); Mean Corpuscular Hgb Conc 32.6 g/dL (32-36); Mean Corpuscular Volume 98.3 fL (80-100); Mean Platelet Volume 9.1 fL (7.4-10.4); Platelet Count 164 K/uL (130-400); RDW Coefficient of Variation 19.1 % (11.5-14.5); RDW Standard Deviation 68.9 fL (36.4-46.3); Red Blood Count 3.03 M/uL (4.2-5.4); White Blood Count 3.85 K/uL (4.8-10.8)
--- NOTE | 2019-12-23 10:40 | Hospitalist Progress Note ---
Date of Service December 23, 2019 Assessment & Plan (1) C. difficile diarrhea: Stools positive for Cdiff on IV abx to complete 6 weeks course Diarrhea improves significantly KUB done yesterday showed nonobstructive bowel gas pattern. ID on board plan to continue PO vanco for 1 month, then will need a slower taper Diarrhea improves significantly Follow up with ID (2) SOB (shortness of breath): (3) Anemia: (4) Weakness: Related to symptomatic anemia Hgb on admission 7.3 Received 1 unit PRBC, then repeat hgb 8.3 Hgb dropped to 7 , then received 1 more unit PRBC (received a total of 3 units so far during hospital stay ) Hgb dropped to 7.9 yesterday then received 1 unit prbc Hgb stable at 9.7 today Continue PT/OT eval Check CBC within 5 to 7 days (5) Chest pain, precordial: EKG on admission showed no significant ischemic changes Troponin x3 negative Continue Metoprolol Stable (6) Major depression: Stable (7) Cardiomyopathy: Possible related to Takotsubo from recent cardiology consult Echocardiogram on last admission showed an apical ballooning pattern along significantly reduced LV systolic function EF approximately 30 to 35%. Continue Low dose metoprolol Septic arthritis of knee, left Arthrocentesis on 11/22/2019 demonstrated 78,000 WBCs (88% polys). Cultures subsequently grew MRSA on last admission ID in the last admission recommended to continue IV Ceftaroline for 6 weeks starting from 11/24/19 negative cx with tentative stop date 01/05. Insertion of tunneled power port double lumen Catheter placed by Vascular surgery on 12/17/19 Follow up with orthopedic Hypotension During previous admission Was starting on Midodrine BP has been stable Continue midodrine with BP parameters Resolved Left rib fracture: Multiple left rib fractures due to recent fall. Analgesics PRN. Stable Hypokalemia K 3.8 K stable Monitor BMP Anastomotic ulcer S/P gastric bypass: Status post [place]-en-[place] gastric bypass years ago. History anastomotic ulcer. No gross GI bleeding. Continue PPI, sucralfate, misoprostol Diabetes Hba1c 4.9 on 11/24 Continue insulin sliding scale Monitor BS DVT px on heparin subq Admission and Anticipated Discharge Date Admission Date: December 15, 2019 Subjective Pt was seen and examined Lying in bed with no distress Pt said that she had no diarrhea last night She said that she only had 2 episodes of BM today She said that the stool are getting more form She said that she is feeling ok Denies any chest pain, palpitation, dizziness and SOB Physical Exam Physical Exam: General- No acute distress Head- atraumatic Eyes- PERRL, EOMI, ENT- oropharynx clear Neck- supple, no JVD Lungs- clear to auscultation Heart- regular rhythm; no murmur Abdomen- normal bowel sounds, soft, +mild tender with deep palpation Extremities- no calf tenderness Neuro- alert, oriented x 3; PERRL, EOMI; no facial palsy; no dysarthria Skin- warm & dry Results & Data ([facility]) Vital Signs (Past 12 Hours) Vital Signs Temp Pulse Resp BP Pulse Ox 12/23/19 07:50 36.7 C 62 16 132/64 95 12/22/19 23:03 36.7 C 68 18 137/73 96 (1) Anemia Anemia type: unspecified type Qualified Code(s): D64.9 - Anemia, unspecified
[2019-12-23 11:25] VITALS: PULSE 65
--- NOTE | 2019-12-24 14:22 | Discharge Summary ---
Date of Service December 23, 2019 Admission HPI Per Admitting Provider 63 year old female who presented to the Emergency Room 12/13 with complaints of constant weakness. She was transfused one unit of blood and returned to [facility]. She returns today weak, tired and hypotensive, Hb was 6.4 at [facility], she was unable to participate in rehab so was sent back to our ER. The patient states she is feeling SOB, dizzy, and lightheaded. She denies having bloody or black stools. She was heme neg in the ER on 12/13 and today. She states her bowel movements have been all liquid. She states she has been having chest pain. She is on Ceftaroline until 01/05. She states she has a history of a ble eding ulcer from a gastric bypass. She had an extended stay of 25 days for a Left Empyema for which a CTube and eventually a Pleurex Catheter was placed. ID and Thoracic Surgery were on the case and the pleurex catheter was removed prior to DC. She also had a septic knee on last admission and ortho. Admission Exam Per Admitting Provider Gen-AAO x 3, NAD, Afebrile, Pleasant, Weak Head-NCAT, EOMI, PERRLA, Anicteric Sclera, No Posterior Pharyngeal Erythema Neck-Supple, No JVD, No Thyromegaly, No Masses, No LAD, No Bruits Lungs-Coarse BS L, R Clear Chest-No S4, +S1, +S2, No S3, No Murmurs, No Rubs, No Gallops, No Ectopy Abdomen-Soft, Bowel Sounds Present, Non Tender, Non Distended, No Hepatomegaly, No Splenomegaly, No Palpable Masses, No Rebound, No Rigidity, No Guarding Musculoskeletal-Full Range of Motion Bilaterally, No CVAT Extremities-No Cyanosis, No Clubbing, No Edema Nuero-Cranial Nerves II-XII grossly intact, Motor WNL, DTRs WNL, Strength WNL, Non Focal Psych-Normal Mood Principal Diagnosis C. difficile diarrhea: SOB (shortness of breath): Anemia: Weakness: Chest pain, precordial: Major depression: Cardiomyopathy: Septic arthritis of knee, left Hypotension Left rib fracture: Hypokalemia Anastomotic ulcer S/P gastric bypass: Diabetes Discharge Exam General- No acute distress Head- atraumatic Eyes- PERRL, EOMI, ENT- oropharynx clear Neck- supple, no JVD Lungs- clear to auscultation Heart- regular rhythm; no murmur Abdomen- normal bowel sounds, soft, +mild tender with deep palpation Extremities- no calf tenderness Neuro- alert, oriented x 3; PERRL, EOMI; no facial palsy; no dysarthria Skin- warm & dry Discharge Data Allergies Allergy/AdvReac Type Severity Reaction Status Date / Time Sulfa (Sulfonamide Allergy Severe FACE/THROAT Verified 12/15/19 12:44 Antibiotics) SWELL UP Consultations 12/15/19 12:57 ED Decision to Admit Stat 12/16/19 07:47 Consult Vascular Surgery Routine 12/19/19 07:00 Consult Infectious Diseases Routine Procedures Performed Operation Date: 12/17/19 15:10 Actual Procedures p Insertion of Arce Catheter, Ultrasound Localization of Right Jugular Vein, Flouroscopy for Positioning, Moderate Sedation [id number](Right) - Khang Martinez MD Ordered Studies 12/17/19 11:43 US guide vascular access Routine 12/17/19 11:44 EV cvc insrt tunnel wo prt/hand spring repairer helper Routine XR chest 1V portable CLINICAL HISTORY: weakness COMPARISON STUDY: December 13, 2019 FINDINGS: The heart is normal in size. The patient is rotated. There are old right-sided rib fractures. There is no overt failure. There is blunting of both lateral costophrenic angle suggesting trace pleural effusions. There are left basilar opacity statistically atelectatic.[ IMPRESSION: 1. Left basilar opacities, likely atelectatic 2. Trace pleural effusions ACT 112: Negative or not required by law. Electronically signed by: Jevon Fitzpatrick M.D. 12/15/2019 1:56 PM Dictated: 12/15/19 1355 Transcribed: 12/15/19 1355 XR KUB/Abdomen 1 view CLINICAL HISTORY: vomiting COMPARISON STUDY: No previous studies for comparison. FINDINGS: There are left upper quadrant sutures line suggesting a prior gastric bypass. There is no pathologic bowel dilatation. Pelvic basin calcifications likely represent phleboliths. IMPRESSION: Postsurgical changes. Nonobstructive bowel gas pattern. ACT 112: Negative or not required by law. Electronically signed by: Jevon Fitzpatrick M.D. 12/20/2019 6:30 PM Dictated: 12/20/191828 Transcribed: 12/20/191828 Hospital Course (1) C. difficile diarrhea: Stools positive for Cdiff on IV abx to complete 6 weeks course Diarrhea improves significantly KUB done yesterday showed nonobstructive bowel gas pattern. ID on board plan to continue PO vanco for 1 month, then will need a slower taper Diarrhea improves significantly Follow up with ID (2) SOB (shortness of breath): (3) Anemia: (4) Weakness: Related to symptomatic anemia Hgb on admission 7.3 Received 1 unit PRBC, then repeat hgb 8.3 Hgb dropped to 7 , then received 1 more unit PRBC (received a total of 3 units so far during hospital stay ) Hgb dropped to 7.9 yesterday then received 1 unit prbc Hgb stable at 9.7 today Continue PT/OT eval Check CBC within 5 to 7 days (5) Chest pain, precordial: EKG on admission showed no significant ischemic changes Troponin x3 negative Continue Metoprolol Stable (6) Major depression: Stable (7) Cardiomyopathy: Possible related to Takotsubo from recent cardiology consult Echocardiogram on last admission showed an apical ballooning pattern along significantly reduced LV systolic function EF approximately 30 to 35%. Continue Low dose metoprolol Septic arthritis of knee, left Arthrocentesis on 11/22/2019 demonstrated 78,000 WBCs (88% polys). Cultures subsequently grew MRSA on last admission ID in the last admission recommended to continue IV Ceftaroline for 6 weeks starting from 11/24/19 negative cx with tentative stop date 01/05. Insertion of tunneled power port double lumen Catheter placed by Vascular surgery on 12/17/19 Follow up with orthopedic Hypotension During previous admission Was starting on Midodrine BP has been stable Continue midodrine with BP parameters Resolved Left rib fracture: Multiple left rib fractures due to recent fall. Analgesics PRN. Stable Hypokalemia K 3.8 K stable Monitor BMP Anastomotic ulcer S/P gastric bypass: Status post [place] gastric bypass years ago. History anastomotic ulcer. No gross GI bleeding. Continue PPI, sucralfate, misoprostol Diabetes Hba1c 4.9 on 11/24 Continue insulin sliding scale Monitor BS DVT px on heparin subq Total Time Total Time Spent Total Time Spent (In Minutes): 45 minutes Total Time Includes: Examination of the Patient, Discharge Planning, Medication Reconciliation, Communication With Other Providers and Other Discharge Plan Discharge Items Patient Disposition: Transfer Inpatient Rehab Fac Reason For Visit: ANEMIA, SOB, WEAKNESS Discharge Diagnosis: C. difficile diarrhea: SOB (shortness of breath): Anemia: Weakness: Chest pain, precordial: Major depression: Cardiomyopathy: Septic arthritis of knee, left Hypotension Left rib fracture: Hypokalemia Anastomotic ulcer S/P gastric bypass: Diabetes Activity: Resume your previous activity Non-emergency contact: Primary Care Provider Call non-emergency contact if: you have any medication questions Follow-up/Referrals: [facility] [Primary Care Provider] - Diet: Heart Healthy Addtl Attending Provider Instructions: Follow up with your primary care provider once discharge from [facility] Follow up with Infectious disease Dr. Lofton in 3-4 weeks Follow up with Orthopedic Continue Physical and occupational therapy Fall precaution Continue IV Ceftaroline with tentative stop date 01/06/20 Continue Oral vancomycin fourth time a day for 30 days for now, then you will need a slow taper Check CBC within 5 to 7 days to check your hemoglobin Check BMP within 5 to 7 days to monitor your electrolytes Pending Studies at Discharge: No Stand-Alone Forms: My [facility] Skilled Items Patient informed of condition?: Yes DNR: No Discharge Level of Care: Acute rehab Communicable Disease: No Discharge Prognosis: Stable Lines: Arce Urinary Catheter: No Medications and DC Order Prescriptions: New midodrine 10 mg Tablet 10 mg PO TID@0800,1200,1700 PRN (Reason: for low BP) Qty: 30 RF: 0 vancomycin 125 mg capsule 125 mg PO Q6H 30 Days Qty: 120 RF: 0 Continued thiamine HCl (vitamin B1) [Vitamin B-1] 100 mg Tablet 100 mg PO QAM Qty: 30 RF: 1 meclizine 25 mg Tablet 25 mg PO Q8H PRN (Reason: dizziness or vertigo) Qty: 30 RF: 0 misoprostol [Cytotec] 100 mcg tablet 100 mcg PO QID RF: 0 levothyroxine 25 mcg tablet 25 mcg PO QAM RF: 0 nortriptyline 25 mg capsule 25 mg PO HS RF: 0 gabapentin 300 mg capsule 300 mg PO TID RF: 0 fludrocortisone 0.1 mg tablet 0.1 mg PO QAM RF: 0 acetaminophen [Mapap (acetaminophen)] 325 mg Tablet 650 mg PO Q4H PRN (Reason: fever or pain) Qty: 100 RF: 0 metoprolol succinate 25 mg Tablet Extended Release 24 Hr 12.5 mg PO BID Qty: 60 RF: 0 bisacodyl [Laxative (bisacodyl)] 10 mg Suppository 10 mg SC DAILY PRN (Reason: constipation) Qty: 30 RF: 0 magnesium chloride [Mag 64] 64 mg Tablet,Delayed Release (Dr/Ec) 64 mg PO BID Qty: 60 RF: 0 pantoprazole 40 mg Tablet,Delayed Release (Dr/Ec) 40 mg PO BID Qty: 60 RF: 0 Floranex 100 million cell Granules In Packet 1 g PO TIDM Qty: 60 RF: 0 ceftaroline fosamil 600 mg recon soln 600 mg IV Q12H Qty: 50 RF: 0 enoxaparin [Lovenox] 40 mg/0.4 mL Syringe 40 mg SUBCUT QAM RF: 0 multivitamin [Daily-Satnam] Tablet 1 tab PO QDL RF: 0 sucralfate 100 mg/mL suspension 10 ml PO ACHS RF: 0 potassium chloride [Klor-Con M20] 20 mEq tablet,ER particles/crystals 20 meq PO BID RF: 0 cyanocobalamin (vitamin B-12) [Vitamin B-12] 500 mcg tablet 500 mcg PO QAM RF: 0 docusate sodium 100 mg capsule 100 mg PO BID PRN (Reason: Constipation) RF: 0 folic acid 1 mg tablet 1 mg PO QAM RF: 0 Discharge Orders: Discharge Order (Routine); Ordered 12/23/19 Ordered By: Tomas Moore Admission Data Admit Date/Time: 12/15/19 13:26 Attending Provider: Tomas Moore Admit Provider: Xavier Maurice Primary Care Provider: Gorge Carmona Other Providers: Gorge Carmona ; Xavier Maurice ; Lucero Saunders ; Khang Garcia i ; Michelle Lofton Other Interventions: Discharge Summary Assessment (RN) Last Done: 12/23/19 11:19 DC Date/Time DO NOT enter until pt leaves facility: 12/23/19 14:25
== END 2019-12-23 14:25 | DRG 372 ==
LOC: ED 12:15 → SUATTDRO 13:26 → 2S 13:26 → 3N 12-19 21:14

== ENCOUNTER 2020-10-01 16:08 | Observation (INO) ==
[2020-10-01] MEDS ORDERED: ONDANSETRON INJ 2 MG/ML 2 ML VIAL ONE (16:32)
[2020-10-01 16:36] LABS: Basophils # (auto) 0.02 K/uL (0-0.2); Basophils % (auto) 0.4 %; Eosinophils # (auto) 0.04 K/uL (0-0.5); Eosinophils % (auto) 0.8 %; Hematocrit (blood only) 42.1 % (37-47); Lymphocytes % (auto) 24.8 %; Mean Corpuscular Hemoglobin 30.2 pg (25-34); Mean Corpuscular Hgb Conc 33.3 g/dL (32-36); Mean Corpuscular Volume 90.7 fL (80-100); Mean Platelet Volume 9.3 fL (7.4-10.4); Monocytes # (auto) 0.35 K/uL (0.11-0.59); Monocytes % (auto) 6.7 %; Neutrophils # (auto) 3.53 K/uL (1.4-6.5); Neutrophils % (auto) 67.3 %; Platelet Count 266 K/uL (130-400); RDW Coefficient of Variation 13.6 % (11.5-14.5); RDW Standard Deviation 44.5 fL (36.4-46.3); Red Blood Count 4.64 M/uL (4.2-5.4); White Blood Count 5.24 K/uL (4.8-10.8)
[2020-10-01] MEDS ORDERED: MoRPHine SULFATE 2 MG/ML CARP IV STA (16:39)
[2020-10-01] MEDS ORDERED: SODIUM CHLORIDE 0.9% 1000ML 1,000 ML IV ONE (16:41)
--- NOTE | 2020-10-01 16:47 | Emergency Department Note ---
History of Present Illness General Chief Complaint: Chest Pain Time Seen by Provider: 10/01/20 16:12 Source: patient Mode of arrival: EMS Limitations: no limitations History of Present Illness Provider Complaint: chest pain Maximum Pain Intensity: 4 This is a 64-year-old female who presents to the ED with a chief complaint of chest, back and abdominal pain. The patient states that her chest pain started around 2:15 in the morning. She states that it was a nagging pain. She otherwise could not describe what it feels like. It continued throughout the day today. She states that she started developing a sharp back pain that radiates from just below the shoulder blades down into the pelvis area. This started around noon today. The patient reports some associated nausea. She states that she also has a pain in her left arm and left shoulder. She also reports a little discomfort in her lower gums. The patient was transported here by EMS. She received a sublingual nitroglycerin. Her initial pressure here was around 80 systolic. Prehospital was around 110 systolic. She also received 324 mg of aspirin p.o. She does report being a smoker. Last significant alcohol use was in 2012, per the patient. Home Medications Medication Instructions Recorded Confirmed Type esomeprazole magnesium 40 mg PO QAM 10/01/20 10/01/20 History levothyroxine 50 mcg PO QAM 10/01/20 10/01/20 History metformin 500 mg PO BID 10/01/20 10/01/20 History misoprostol 100 mcg PO QID 10/01/20 10/01/20 History nortriptyline 50 mg PO HS 10/01/20 10/01/20 History sucralfate 1 g PO QID 10/01/20 10/01/20 History suvorexant [Belsomra] 5 mg PO HS 10/01/20 10/01/20 History Allergies Allergy/AdvReac Type Severity Reaction Status Date / Time Sulfa (Sulfonamide Allergy Severe FACE/THROAT Verified 10/01/20 19:21 Antibiotics) SWELL UP Past Med/Surg History Medical History (Updated 10/01/20 @ 20:48 by Barry Summers MD) Alcoholic HX (NO PROBLEMS SINCE 2012) Anemia, iron deficiency Anxiety and depression Arthritis Cardiomyopathy Esophagus disorder GERD (gastroesophageal reflux disease) Hx of diabetes mellitus CLEARED AFTER GASTRIC BYPASS PER PATIENT Hx of intestinal obstruction Hx of migraines Hx of sleep apnea Hypotension Hypothyroidism Osteoarthritis Poor intravenous access Stomach ulcer Surgical History Abscess Hx of I&D of left axilla abscess. MRSA POSITIVE History of appendectomy History of cataract surgery RT/LEFT History of cholecystectomy History of colonoscopy History of esophagogastroduodenoscopy (EGD) History of hysterectomy History of tonsillectomy and adenoidectomy History of tooth extraction History of vascular access device CENTRAL LINE/REMOVED Hx of gastric bypass 20 YEARS AGO Nausea and vomiting after administration of anesthetic agent Family History Mother Family history of diabetes mellitus Father Family history of diabetes mellitus Other No pertinent family history in first degree relatives Social History Smoking Status: Current some day smoker Second Hand Exposure: Yes; Hx Alcohol Use: No Hx Substance Use: No Preferred Language: Icelandic Communication Ability: Effective 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 Beliefs That Will Affect Care: None marital status: Current Living Situation: Alone Current Living Situation Comment: [facility] Feels Safe at Home: Yes Assistive Devices: Denture - Lower, Glasses and Walker Review of Systems A total of 10 systems reviewed and were otherwise negative Physical Exam Vital Signs Vital Signs - 24 hr 10/01/20 16:21 10/01/20 16:23 10/01/20 16:36 Temperature 37 C Temperature Source Oral Pulse Rate 54 L 61 Pulse Rate from SpO2 Sensor 62 Pulse Rhythm Regular Pulse Strength Normal Respiratory Rate 18 20 Respiratory Effort / Characteristics Non-Labored Spontaneous Respiratory Depth Normal Respiratory Pattern Regular Blood Pressure 85/49 L 110/67 Blood Pressure Mean 61 75 Blood Pressure Position Sitting Pulse Oximetry 99 Oxygen Delivery Method Room Air Room Air Sepsis Recent Fever Within 48 Hours No Sepsis New/Unexplained Change in Mental Status N/A Sepsis Action Taken by Nursing No Action Required 10/01/20 16:53 10/01/20 17:00 10/01/20 17:15 Temperature Temperature Source Pulse Rate 58 L 55 L 54 L Pulse Rate from SpO2 Sensor 59 L 54 L 53 L Pulse Rhythm Pulse Strength Respiratory Rate 13 12 11 L Respiratory Effort / Characteristics Respiratory Depth Respiratory Pattern Blood Pressure 108/70 92/56 L 91/50 L Blood Pressure Mean 81 70 56 Blood Pressure Position Pulse Oximetry 100 100 99 Oxygen Delivery Method Sepsis Recent Fever Within 48 Hours Sepsis New/Unexplained Change in Mental Status Sepsis Action Taken by Nursing 10/01/20 17:30 10/01/20 17:45 10/01/20 17:54 Temperature Temperature Source Pulse Rate 59 L 61 63 Pulse Rate from SpO2 Sensor 58 L 61 64 Pulse Rhythm Pulse Strength Respiratory Rate 16 12 21 Respiratory Effort / Characteristics Respiratory Depth Respiratory Pattern Blood Pressure 96/56 L 111/44 L 113/48 L Blood Pressure Mean 68 74 65 Blood Pressure Position Pulse Oximetry 95 94 95 Oxygen Delivery Method Sepsis Recent Fever Within 48 Hours Sepsis New/Unexplained Change in Mental Status Sepsis Action Taken by Nursing 10/01/20 18:04 10/01/20 18:31 10/01/20 18:45 Temperature Temperature Source Pulse Rate 63 57 L Pulse Rate from SpO2 Sensor 64 57 L Pulse Rhythm Pulse Strength Respiratory Rate 15 13 Respiratory Effort / Characteristics Respiratory Depth Respiratory Pattern Blood Pressure 121/61 104/54 L 107/68 Blood Pressure Mean 74 66 82 Blood Pressure Position Pulse Oximetry 99 93 Oxygen Delivery Method Sepsis Recent Fever Within 48 Hours Sepsis New/Unexplained Change in Mental Status Sepsis Action Taken by Nursing 10/01/20 19:00 10/01/20 19:15 10/01/20 19:30 Temperature Temperature Source Pulse Rate 59 L 62 67 Pulse Rate from SpO2 Sensor 58 L 62 Pulse Rhythm Pulse Strength Respiratory Rate 18 14 20 Respiratory Effort / Characteristics Respiratory Depth Respiratory Pattern Blood Pressure 96/53 L 103/57 L 90/80 L Blood Pressure Mean 62 69 86 Blood Pressure Position Pulse Oximetry 93 94 Oxygen Delivery Method Sepsis Recent Fever Within 48 Hours Sepsis New/Unexplained Change in Mental Status Sepsis Action Taken by Nursing 10/01/20 19:45 10/01/20 20:00 10/01/20 20:15 Temperature Temperature Source Pulse Rate 58 L 66 72 Pulse Rate from SpO2 Sensor Pulse Rhythm Pulse Strength Respiratory Rate 16 10 L 22 Respiratory Effort / Characteristics Respiratory Depth Respiratory Pattern Blood Pressure 100/54 L 92/54 L 97/47 L Blood Pressure Mean 64 60 56 Blood Pressure Position Pulse Oximetry Oxygen Delivery Method Sepsis Recent Fever Within 48 Hours Sepsis New/Unexplained Change in Mental Status Sepsis Action Taken by Nursing 10/01/20 20:30 10/01/20 20:45 Temperature Temperature Source Pulse Rate 67 63 Pulse Rate from SpO2 Sensor 67 63 Pulse Rhythm Pulse Strength Respiratory Rate 17 16 Respiratory Effort / Characteristics Respiratory Depth Respiratory Pattern Blood Pressure 96/60 L 102/73 Blood Pressure Mean 77 77 Blood Pressure Position Pulse Oximetry 97 98 Oxygen Delivery Method Sepsis Recent Fever Within 48 Hours Sepsis New/Unexplained Change in Mental Status Sepsis Action Taken by Nursing CONSTITUTIONAL/VITAL SIGNS: Reviewed / noted above. GENERAL: Non-toxic in appearance. INTEGUMENTARY: Warm, dry, and [place]. HEAD: Normocephalic. EYES: without scleral icterus or trauma. ENT/OROPHARYNX: clear and moist. LYMPHADENOPATHY/NECK: Is supple without lymphadenopathy or meningismus. RESPIRATORY: Lungs clear and equal. CARDIOVASCULAR: Regular rate and rhythm. GI/ABDOMEN: Soft and tender in the left lower, left upper and epigastric areas. No organomegaly or pulsatile mass. No rebound or guarding. Normal bowel sounds. EXTREMITIES: Warm and well perfused. BACK: No CVA tenderness. NEUROLOGICAL: Intact without focal deficits. PSYCHIATRIC: normal affect. MUSCULOSKELETAL: Normally developed with good muscle tone. TRIAGE NURSING DOCUMENTATION REVIEWED. Course Administered Medications Discontinued Medications Fentanyl Citrate (Fentanyl Citrate 100 Mcg/2 Ml Vial) 50 mcg IV NOW STA Stop: 10/01/20 18:23 Last Admin: 10/01/20 18:55 Dose: 50 mcg Documented by: [id number] Fentanyl Citrate (Fentanyl Citrate 100 Mcg/2 Ml Vial) Confirm Administered Dose 100 mcg .ROUTE .STK-MED ONE Stop: 10/01/20 19:52 Last Increment: 10/01/20 21:44 Dose: 50 mcg Documented by: [id number] Heparin Sodium (Porcine) (Heparin (Porcine) 1000 Unit/Ml 10 Ml (Individual Pension Consultant Use Only)) Confirm Administered Dose 10,000 units .ROUTE .STK-MED ONE Stop: 10/01/20 19:52 Last Admin: 10/01/20 21:44 Dose: 10,000 units Documented by: [id number] Heparin Sodium (Porcine) (Heparin (Porcine) 1000 Unit/Ml 10 Ml (Individual Pension Consultant Use Only)) Confirm Administered Dose 10,000 units .ROUTE .STK-MED ONE Stop: 10/01/20 21:42 Last Admin: 10/01/20 21:44 Dose: 1,000 units Documented by: [id number] Heparin Sodium/Sodium Chloride (Heparin In Nss Infusion 1000 Unit/500 Ml (2 U/Ml) Bag) Confirm Administered Dose 3,000 units IV .STK-MED ONE Stop: 10/01/20 19:53 Last Admin: 10/01/20 21:11 Dose: 3,000 units Documented by: [id number] Hydromorphone HCl (Hydromorphone Inj 0.5 Mg/0.5 Ml Syr) 0.5 mg IV NOW STA Stop: 10/01/20 19:36 Last Admin: 10/01/20 21:02 Dose: Not Given Documented by: [id number] Sodium Chloride (Nss 1000ml) 1,000 mls @ 999 mls/hr IV .Q1H1M ONE Stop: 10/01/20 17:41 Last Infusion: 10/01/20 19:00 Dose: 0 mls/hr Documented by: [id number] Admin: 10/01/20 16:55 Dose: 999 mls/hr Documented by: [id number] Ioversol (Optiray 320 125ml) 119 ml IV ONCE ONE Stop: 10/01/20 18:12 Last Admin: 10/01/20 18:11 Dose: 119 ml Documented by: [id number] Midazolam HCl (Midazolam Hcl 1 Mg/Ml 2ml Vial) Confirm Administered Dose 2 mg .ROUTE .STK-MED ONE Stop: 10/01/20 19:52 Last Admin: 10/01/20 21:44 Dose: 2 mg Documented by: [id number] Morphine Sulfate (Morphine Sulfate 2 Mg/Ml Carp) 2 mg IV NOW STA Stop: 10/01/20 16:40 Last Admin: 10/01/20 16:58 Dose: 2 mg Documented by: [id number] Nicardipine HCl (Nicardipine Hcl Inj 2.5 Mg/Ml 10 Ml Amp) Confirm Administered Dose 25 mg .ROUTE .STK-MED ONE Stop: 10/01/20 19:52 Last Admin: 10/01/20 21:06 Dose: 25 mg Documented by: [id number] Nicardipine HCl (Nicardipine Hcl Inj 2.5 Mg/Ml 10 Ml Amp) Confirm Administered Dose 25 mg .ROUTE .STK-MED ONE Stop: 10/01/20 20:56 Last Admin: 10/01/20 21:11 Dose: Not Given Documented by: [id number] Nitroglycerin (Nitroglycerin Sl 0.4 Mg/Tab Tab) 0.4 mg SL NOW STA Stop: 10/01/20 18:23 Last Admin: 10/01/20 18:50 Dose: 0.4 mg Documented by: [id number] Nitroglycerin/Dextrose (Nitroglycerin/D5w 100mcg/Ml 20ml Syr) Confirm Administered Dose 2,000 mcg .ROUTE .STK-MED ONE Stop: 10/01/20 19:53 Last Admin: 10/01/20 21:11 Dose: 2,000 mcg Documented by: [id number] Nitroglycerin/Dextrose (Nitroglycerin/D5w 100mcg/Ml 20ml Syr) Confirm Administered Dose 2,000 mcg .ROUTE .STK-MED ONE Stop: 10/01/20 20:56 Last Admin: 10/01/20 21:11 Dose: Not Given Documented by: [id number] Ondansetron HCl (Ondansetron Inj 2 Mg/Ml 2 Ml Vial) Confirm Administered Dose 4 mg .ROUTE .STMODIZY.COM-MED ONE Stop: 10/01/20 16:33 Last Admin: 10/01/20 16:38 Dose: 4 mg Documented by: [id number] Ticagrelor (Ticagrelor 90 Mg Tab) Confirm Administered Dose 180 mg PO .Encapson-MED ONE Stop: 10/01/20 21:50 Last Admin: 10/01/20 22:00 Dose: 180 mg Documented by: [id number] Medical Decision Making Differential Diagnosis The differential that was considered includes acute myocardial infarction, acute coronary syndrome, myocarditis, pericarditis, pericardial effusions /tamponade, esophageal perforation, thoracic aortic dissection, pulmonary embolism, pneumonia, pneumothorax, pancreatitis, shingles, acute cholecystitis, perforated abdominal viscus. Medical Records Attestation: I reviewed the patient's medical records. Home Medications Current Medication List: was personally reviewed by me Laboratory Data Attestation: I reviewed the patient's lab results. Result diagrams: 10/01/20 16:15 10/01/20 16:15 Labs: Lab Results 10/01/20 10/01/20 10/01/20 Range/Units 16:15 16:15 16:15 WBC 5.24 (4.8-10.8) K/uL RBC 4.64 (4.2-5.4) M/uL Hgb 14.0 (12.0-16.0) g/dL Hct 42.1 (37-47) % MCV 90.7 (80-100) fL MCH 30.2 (25-34) pg MCHC 33.3 (32-36) g/dL RDW Std Deviation 44.5 (36.4-46.3) fL RDW Coeff of Taye 13.6 (11.5-14.5) % Plt Count 266 (130-400) K/uL MPV 9.3 (7.4-10.4) fL Immature Gran % (Auto) 0.0 % Neut % (Auto) 67.3 % Lymph % (Auto) 24.8 % Darke % (Auto) 6.7 % Eos % (Auto) 0.8 % Baso % (Auto) 0.4 % Neut # (Auto) 3.53 (1.4-6.5) K/uL Lymph # (Auto) 1.30 (1.2-3.4) K/uL Darke # (Auto) 0.35 (0.11-0.59) K/uL Eos # (Auto) 0.04 (0-0.5) K/uL Baso # (Auto) 0.02 (0-0.2) K/uL Immature Gran # (Auto) 0.00 (0.00-0.02) K/uL PT Cancelled INR Cancelled APTT Cancelled PTT Ratio Cancelled Activ Coag Time Kaolin (94-140) SECONDS D-Dimer Sodium 137 (136-145) mmol/L Potassium 4.1 (3.5-5.1) mmol/L Chloride 104 (98-107) mmol/L Carbon Dioxide 26 (21-32) mmol/L Anion Gap 7.0 (3-11) BUN 10 (7-18) mg/dl Creatinine 1.04 (0.6-1.2) mg/dl Est Cr Clr Drug Dosing 48.8 ml/min Est GFR ( Amer) 66.2 Est GFR (Non-Af Amer) 57.1 BUN/Creatinine Ratio 10.0 (10-20) Glucose 198 H (70-99) mg/dl Calcium 9.5 (8.5-10.1) mg/dl Total Bilirubin 0.3 (0.2-1) mg/dl AST 21 (15-37) U/L ALT 19 (12-78) U/L Alkaline Phosphatase 130 H (45-117) U/L Troponin I 0.241 H* (0-0.045) ng/ml Total Protein 7.7 (6.4-8.2) gm/dl Albumin 3.6 (3.4-5.0) gm/dl Globulin 4.1 H (2.5-4.0) gm/dl Albumin/Globulin Ratio 0.9 (0.9-2) Lipase 154 (73-393) U/L COVID-19 Eval Order SARS-CoV-2, RNA, NAAT (NEGATIVE) 10/01/20 10/01/20 10/01/20 Range/Units 16:15 17:37 18:35 WBC (4.8-10.8) K/uL RBC (4.2-5.4) M/uL Hgb (12.0-16.0) g/dL Hct (37-47) % MCV (80-100) fL MCH (25-34) pg MCHC (32-36) g/dL RDW Std Deviation (36.4-46.3) fL RDW Coeff of Taye (11.5-14.5) % Plt Count (130-400) K/uL MPV (7.4-10.4) fL Immature Gran % (Auto) % Neut % (Auto) % Lymph % (Auto) % Darke % (Auto) % Eos % (Auto) % Baso % (Auto) % Neut # (Auto) (1.4-6.5) K/uL Lymph # (Auto) (1.2-3.4) K/uL Darke # (Auto) (0.11-0.59) K/uL Eos # (Auto) (0-0.5) K/uL Baso # (Auto) (0-0.2) K/uL Immature Gran # (Auto) (0.00-0.02) K/uL PT 10.4 INR 1.0 APTT 26.7 PTT Ratio 1.0 Activ Coag Time Kaolin (94-140) SECONDS D-Dimer Cancelled 330 Sodium (136-145) mmol/L Potassium (3.5-5.1) mmol/L Chloride (98-107) mmol/L Carbon Dioxide (21-32) mmol/L Anion Gap (3-11) BUN (7-18) mg/dl Creatinine (0.6-1.2) mg/dl Est Cr Clr Drug Dosing ml/min Est GFR ( Amer) Est GFR (Non-Af Amer) BUN/Creatinine Ratio (10-20) Glucose (70-99) mg/dl Calcium (8.5-10.1) mg/dl Total Bilirubin (0.2-1) mg/dl AST (15-37) U/L ALT (12-78) U/L Alkaline Phosphatase (45-117) U/L Troponin I (0-0.045) ng/ml Total Protein (6.4-8.2) gm/dl Albumin (3.4-5.0) gm/dl Globulin (2.5-4.0) gm/dl Albumin/Globulin Ratio (0.9-2) Lipase (73-393) U/L COVID-19 Eval [email or web address] SARS-CoV-2, RNA, NAAT (NEGATIVE) 10/01/20 10/01/20 Range/Units 18:35 21:37 WBC (4.8-10.8) K/uL RBC (4.2-5.4) M/uL Hgb (12.0-16.0) g/dL Hct (37-47) % MCV (80-100) fL MCH (25-34) pg MCHC (32-36) g/dL RDW Std Deviation (36.4-46.3) fL RDW Coeff of Taye (11.5-14.5) % Plt Count (130-400) K/uL MPV (7.4-10.4) fL Immature Gran % (Auto) % Neut % (Auto) % Lymph % (Auto) % Darke % (Auto) % Eos % (Auto) % Baso % (Auto) % Neut # (Auto) (1.4-6.5) K/uL Lymph # (Auto) (1.2-3.4) K/uL Darke # (Auto) (0.11-0.59) K/uL Eos # (Auto) (0-0.5) K/uL Baso # (Auto) (0-0.2) K/uL Immature Gran # (Auto) (0.00-0.02) K/uL PT INR APTT PTT Ratio Activ Coag Time Kaolin 246 H (94-140) SECONDS D-Dimer Sodium (136-145) mmol/L Potassium (3.5-5.1) mmol/L Chloride (98-107) mmol/L Carbon Dioxide (21-32) mmol/L Anion Gap (3-11) BUN (7-18) mg/dl Creatinine (0.6-1.2) mg/dl Est Cr Clr Drug Dosing ml/min Est GFR ( Amer) Est GFR (Non-Af Amer) BUN/Creatinine Ratio (10-20) Glucose (70-99) mg/dl Calcium (8.5-10.1) mg/dl Total Bilirubin (0.2-1) mg/dl AST (15-37) U/L ALT (12-78) U/L Alkaline Phosphatase (45-117) U/L Troponin I (0-0.045) ng/ml Total Protein (6.4-8.2) gm/dl Albumin (3.4-5.0) gm/dl Globulin (2.5-4.0) gm/dl Albumin/Globulin Ratio (0.9-2) Lipase (73-393) U/L COVID-19 Eval Order SARS-CoV-2, RNA, NAAT NEGATIVE (NEGATIVE) Imaging Data Chest x-ray: Attestation: I personally reviewed and interpreted this imaging study as follows: Radiologist's impression: SINGLE VIEW CHEST CLINICAL HISTORY: Atypical chest pain. FINDINGS: An AP, portable, upright chest radiograph is compared to study dated 03/09/2020. The cardiomediastinal silhouette is unremarkable. The lungs and pleural spaces are clear. No pneumothorax is seen. The skeletal structures are osteopenic. There are healed right-sided rib fractures. IMPRESSION: No active disease in the chest. CT scan - chest: Radiologist's impression: IMPRESSION: 1. There is no airspace consolidation or pleural effusion. 2. There are least 3 pulmonary and pleural-based nodules measuring up to 8 mm as detailed above, which were not seen previously due to pleural effusions and consolidation. These should be followed as per the Fleischner criteria. See below. 3. Additional findings as above. ECG Data Attestation: I personally reviewed and interpreted this ECG as follows: Indication: chest pain Rate (beats per minute): 67 Rhythm: normal sinus Findings: no PVC and no ST elevation MDM Narrative Patient presents with chest, back and abdominal pain as detailed above. Her exam was relatively benign with exception of some left-sided and epigastric abdominal tenderness. EKG showed normal sinus rhythm at a rate of 67. The patient's troponin, elevated at 0.241. Glucose is 198. Lipase was negative. D-dimer is negative. I did speak with Dr. Summers about this patient. He recommended that I speak with Dr. Chavez for possible cardiac catheterization. After speaking with Dr. Chavez, he recommended trying some additional nitro and fentanyl for the patient's discomfort. This was attempted without improvement in her discomfort. A repeat twelve-lead EKG now shows some T wave inversions in the inferior leads that were not present on her original EKG. The patient was was given some Dilaudid for her discomfort. I did speak with Dr. Chavez about the lack of response to the medication and the patient will be taken to the cardiac Individual Pension Consultant for further interventional evaluation. Noncontrast CT scan of the chest did not show any concerning emergent abnormalities. The patient remains hemodynamically stable other than a slight drop in her blood pressure related to the nitroglycerin. Impression & Plan Non-ST elevation (NSTEMI) myocardial infarction Critical Care Time Critical Care Time: Yes Total Critical Care Time: 45 I have personally spent 45 minutes of critical care time in the direct management of this patient. This includes bedside care, interpretation of diagnostic studies, and testing, discussion with consultants, patient, and family members, and other required patient management activities. This 45 minutes is in excess of all separately billable procedures. Discharge Plan Visit Data Chief Complaint: Chest Pain ED Provider: Asif Painter Discharge Problem: Non-ST elevation (NSTEMI) myocardial infarction Patient Disposition: Still a Patient Discharge Instructions Interventions: ED Discharge Assessment Last Done: 10/01/20 20:59
[2020-10-01 16:53] LABS: Albumin Level 3.6 gm/dl (3.4-5.0); Calcium 9.5 mg/dl (8.5-10.1); Creatinine Clr Calc Pharmacy 48.8 ml/min; Est GFR (African American) 66.2; Est GFR (Non-African American) 57.1; Potassium 4.1 mmol/L (3.5-5.1)
--- NOTE | 2020-10-01 16:54 | XRay Report ---
SINGLE VIEW CHEST CLINICAL HISTORY: Atypical chest pain. FINDINGS: An AP, portable, upright chest radiograph is compared to study dated 03/09/2020. The cardiome diastinal silhouette is unremarkable. The lungs and pleural spaces are clear. No pneumothorax is seen . The skeletal structures are osteopenic. There are healed right-sided rib fractures. IMPRESSION: No active disease in the chest. ACT 112: Negative or not required by law. Electronically signed by: Yury Brown M.D. 10/01/2020 4:53 PM
[2020-10-01 17:03] LABS: Albumin Globulin Ratio 0.9 (0.9-2); Bilirubin,Total 0.3 mg/dl (0.2-1); Globulin 4.1 gm/dl (2.5-4.0); Total Protein 7.7 gm/dl (6.4-8.2); Troponin I 0.241 ng/ml (0-0.045)
[2020-10-01 18:09] LABS: D Dimer 330 ug/L FEU (0-500); Partial Thromboplastin Time 26.7 Seconds (21.0-31.0); Prothrombin Time 10.4 Seconds (9.0-12.0)
[2020-10-01] MEDS ORDERED: OPTIRAY 320 125ml IV ONE (18:11)
[2020-10-01] MEDS ORDERED: fentaNYL citrate 100 MCG/2 ML VIAL IV STA (18:22)
[2020-10-01] MEDS ORDERED: NITROGLYCERIN SL 0.4 MG/TAB TAB SL STA (18:22)
--- NOTE | 2020-10-01 18:53 | CT Scan Report ---
CT SCAN OF THE CHEST WITHOUT IV CONTRAST CLINICAL HISTORY: Atypical chest pain. Thoracic back pain. COMPARISON STUDY: Chest x-ray dated 10/01/2020. Chest CT scans dated 12/06/2019 and 11/17/2019. TECHNIQUE: CT scan of the thorax was performed from the thoracic inlet to the upper abdomen. Images are reviewed in the axial, sagittal, and coronal planes. IV contrast was not administered for this ex amination as per the referring clinician. A dose lowering technique was utilized adhering to the kasandra [place]. FINDINGS: Thyroid: Imaged portions of the thyroid gland are normal in size and heterogeneous in attenuation. Co arse calcifications are seen bilaterally. Low-attenuation nodules measure up to 10 mm. Thoracic aorta: There is mild atherosclerotic calcification of the thoracic aorta, which is normal in caliber and demonstrates standard 3-vessel arch anatomy. Heart: The heart is top normal in size and without pericardial effusion. The coronary arteries are de nsely calcified. Lungs and pleural spaces: There is no airspace consolidation typical for pneumonia or pleural effusio n. Scarring/atelectasis is seen at both lung bases. The trachea and central airways are clear. A fat- containing Bochdalek hernia is seen at the left lung base. 3 mm pleural-based nodule is seen in the l eft lower lobe on image #213. A 4 mm right lower lobe pulmonary nodule is also seen on image #213. A 4 mm left lower lobe nodule is seen on image #135. Mediastinum: There is no mediastinal lymphadenopathy. Bernie: Not well assessed without IV contrast. Axillae: There is no axillary lymphadenopathy. Upper abdomen: Postoperative change is seen involving the stomach. There is a small hiatal hernia. Skeletal structures: The skeletal structures are osteopenic. Degenerative change and hyperkyphosis is noted in the thoracic spine. No lytic or blastic bony lesions are seen. There are numerous healed bi lateral rib fractures. There is chronic posttraumatic deformity of the body of the sternum. IMPRESSION: 1. There is no airspace consolidation or pleural effusion. 2. There are least 3 pulmonary and pleural-based nodules measuring up to 8 mm as detailed above, whic h were not seen previously due to pleural effusions and consolidation. These should be followed as pe r the Fleischner criteria. See below. 3. Additional findings as above. Please refer to below summary of Fleischner criteria recommendations for follow-up of incidental CT n odules (Rachelle Hussein, Guidelines for management of small pulmonary nodules detected on CT scans: A sta tement from the Fleischner Society, Radiology 237: [phone].) SOLID NODULES Solitary nodule size: <6 mm * low risk patients: no follow-up needed * high risk patients: optional CT at 12 months Solitary nodule size: 6-8 mm * low risk patients: follow-up at 6-12 months, then consider further follow-up at 18-24 months * high risk patients: initial follow-up CT at 6-12 months and then at 18-24 months if no change Solitary nodule size: >8 mm * either low or high risk patients - consider follow-up CT at 3 months, and/or CT-PET, and/or biopsy Multiple nodules size: <6 mm * low risk patients: no routine follow-up * high risk patients: optional CT at 12 months Multiple nodules size: 6-8 mm * low risk patients: follow-up at 3-6 months, then consider further follow-up at 18-24 months * high risk patients: follow-up at 3-6 months, then at 18-24 months if no change Multiple nodules size: >8 mm * low risk patients: follow-up at 3-6 months, then consider further follow-up at 18-24 months * high risk patients: follow-up at 3-6 months, then at 18-24 months if no change Note: newly detected indeterminate nodule in persons 35 years of age or older. * low risk patients: minimal or absent history of smoking and/or other known risk factors * high risk patients: history of smoking or of other known risk factors (e.g. first degree relative with lung cancer, or exposure to asbestos, radon, uranium) * if a nodule up to 8 mm is partly solid or is ground glass further follow-up is required after 24 m onths to exclude possible slow growing adenocarcinoma (YOLY) SUBSOLID NODULES Solitary pure ground-glass nodule * nodule size <6 mm - no CT follow-up required * nodule size >=6 mm - follow-up CT at 6-12 months, then every 2 years until 5 years Solitary part-solid nodule * nodule size <6 mm - no CT follow-up required * nodule size >=6 mm - follow-up CT at 3-6 months. If unchanged, and solid component remains <6 mm, then annual follow-up for 5 years Multiple subsolid nodules * nodule size <6 mm - follow-up CT at 3-6 months, consider further follow-up at 2 and 4 years if sta ble * nodule size >=6 mm - follow-up CT at 3-6 months, subsequent management based on the most suspiciou s nodule(s) ACT 112: Negative or not required by law. Electronically signed by: Yury Brown M.D. 10/01/2020 6:52 PM
[2020-10-01] MEDS ORDERED: HYDROmorphone INJ 0.5 MG/0.5 ML SYR IV STA (19:35)
[2020-10-01] MEDS ORDERED: niCARdipine HCL INJ 2.5 MG/ML 10 ML AMP ONE ×2 (19:51→20:55)
[2020-10-01] MEDS ORDERED: MIDAZOLAM HCL 1 MG/ML 2ML VIAL ONE (19:51)
[2020-10-01] MEDS ORDERED: fentaNYL citrate 100 MCG/2 ML VIAL ONE (19:51)
[2020-10-01] MEDS ORDERED: HEPARIN (PORCINE) 1000 UNIT/ML 10 ML (CATH LAB USE ONLY) ONE ×2 (19:51→21:41)
[2020-10-01] MEDS ORDERED: NITROGLYCERIN/D5W 100MCG/ML 20ML SYR ONE ×2 (19:52→20:55)
--- NOTE | 2020-10-01 20:33 | Cardiology Consultation ---
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 She now presents with chest pain radiating to left shoulder persistent for multiple hours with elevated troponin. Symptoms do have some atypical features but are concerning given constellation of presentation, hypotension and family history of heart disease as well as underlying past possible structural heart disease/cardiomyopathy. Symptoms are persistent despite narcotic analgesia nitrates and beta-blockers limited by low heart rate and blood pressure Patient will be referred for diagnostic cardiac catheterization urgently further recommendations pending results of studies (2) Non-ST elevation (NSTEMI) myocardial infarction: (3) History of MRSA infection: Would include blood cultures as part of clinical evaluation given atypical presentations in the past History of Present Illness Reason for Consultation: Chest and left shoulder pain elevated troponin Requesting Physician: Dr. Painter History of Present Illness Patient is a 64-year-old female with complex history which includes 1. Type 2 diabetes mellitus in past with resolve after treatment of morbid obese 2. Hypothyroid 3. 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 Recurrent MRSA sepsis 5. Status post gastric bypass surgery with marginal ulcer in past, bariatric anastomoses stricture status post dilatation most recent May 2020 Patient presents now this admission noting usual state of health until last evening when she began experiencing symptoms of left arm and shoulder discomfort. Early this morning she was awakened from sleep with similar pain however with radiation across her chest and into her jaw. Symptoms persisted intermittently throughout the day ultimately resulting in ER presentation. Patient received sublingual nitroglycerin in route was hypotensive on presentation. She denies fevers chills or productive cough though has chronic low-level cough in a.m. Past smoker now occasional. No acute weight loss or gain, no change in appetite. No acute bleeding melena medication dysuria hematuria. Only change in medication addition of Belsomra earlier this week for insomnia Patient notes she was recommended to follow-up with cardiology after hospitalization in November and December regarding catecholamine mediated cardiomyopathy but did not complete patient due to Covid pandemic Patient does carry a significant family history for coronary disease Allergies Allergy/AdvReac Type Severity Reaction Status Date / Time Sulfa (Sulfonamide Allergy Severe FACE/THROAT Verified 10/01/20 19:21 Antibiotics) SWELL UP Home Medications Medication Instructions Recorded Confirmed Type esomeprazole magnesium 40 mg PO QAM 10/01/20 10/01/20 History levothyroxine 50 mcg PO QAM 10/01/20 10/01/20 History metformin 500 mg PO BID 10/01/20 10/01/20 History misoprostol 100 mcg PO QID 10/01/20 10/01/20 History nortriptyline 50 mg PO HS 10/01/20 10/01/20 History sucralfate 1 g PO QID 10/01/20 10/01/20 History suvorexant [Belsomra] 5 mg PO HS 10/01/20 10/01/20 History Patient History Medical History (Updated 10/01/20 @ 20:48 by Barry Summers MD) Alcoholic HX (NO PROBLEMS SINCE 2012) Anemia, iron deficiency Anxiety and depression Arthritis Cardiomyopathy Esophagus disorder GERD (gastroesophageal reflux disease) Hx of diabetes mellitus CLEARED AFTER GASTRIC BYPASS PER PATIENT Hx of intestinal obstruction Hx of migraines Hx of sleep apnea Hypotension Hypothyroidism Osteoarthritis Poor intravenous access Stomach ulcer Surgical History Abscess Hx of I&D of left axilla abscess. MRSA POSITIVE History of appendectomy History of cataract surgery RT/LEFT History of cholecystectomy History of colonoscopy History of esophagogastroduodenoscopy (EGD) History of hysterectomy History of tonsillectomy and adenoidectomy History of tooth extraction History of vascular access device CENTRAL LINE/REMOVED Hx of gastric bypass 20 YEARS AGO Nausea and vomiting after administration of anesthetic agent Family History Mother Family history of diabetes mellitus Father Family history of diabetes mellitus Other No pertinent family history in first degree relatives Social History Smoking Status: Current some day smoker Second Hand Exposure: Yes; Hx Alcohol Use: No Hx Substance Use: No Preferred Language: Maori Communication Ability: Effective Pantry Attendant Required: No Beliefs That Will Affect Care: None marital status: Current Living Situation: Alone Current Living Situation Comment: [facility] Feels Safe at Home: Yes Assistive Devices: Denture - Lower, Glasses and Walker Review of Systems Review of Systems: All systems reviewed & are unremarkable except as noted in HPI & below Physical Exam Constitutional: Thin age-appropriate female complaining of left substernal chest discomfort radiating to the shoulder. No acute dyspnea or diaphoresis Eyes: PERRL, conjunctivae normal, anicteric sclerae + nystagmus ENMT: external ear and nose normal, oropharynx normal Neck: trachea midline, no thyromegaly Respiratory: Scattered rhonchi bibasilar clear partially with cough Cardiovascular: Rate/Rhythm: regular rate and regular rhythm Heart Sounds: normal S1 and normal S2; no gallop and no murmur Palpation: normal PMI Vessels: normal carotid upstroke and radial pulses present; no JVD and no cobb tid bruit Extremities: no edema Gastrointestinal (Abdomen): normal bowel sounds, soft, nontender, no hepatosplenomegaly Musculoskeletal: no cyanosis or clubbing, extremities motor strength 5/5 Skin: no rashes, warm and dry Neurologic: PERRL, EOMI, accommodation nl, no face palsy, no dysarthria Psychiatric: A+Ox3, euthymic affect Results & Data ([facility]) Vital Signs (Past 12 Hours) Vital Signs Temp Pulse Resp BP Pulse Ox 10/01/20 19:00 59 L 18 96/53 L 93 10/01/20 18:45 107/68 10/01/20 18:31 57 L 13 104/54 L 93 10/01/20 18:04 63 15 121/61 99 10/01/20 17:54 63 21 113/48 L 95 10/01/20 17:45 61 12 111/44 L 94 10/01/20 17:30 59 L 16 96/56 L 95 10/01/20 17:15 54 L 11 L 91/50 L 99 10/01/20 17:00 55 L 12 92/56 L 100 10/01/20 16:53 58 L 13 108/70 100 10/01/20 16:36 61 20 110/67 10/01/20 16:23 37 C 54 L 18 85/49 L 99 Laboratory Results Laboratory Results - last 24 hr 10/01/20 10/01/20 10/01/20 16:15 16:15 16:15 WBC 5.24 RBC 4.64 Hgb 14.0 Hct 42.1 MCV 90.7 MCH 30.2 MCHC 33.3 RDW Std Deviation 44.5 RDW Coeff of Taye 13.6 Plt Count 266 MPV 9.3 Immature Gran % (Auto) 0.0 Neut % (Auto) 67.3 Lymph % (Auto) 24.8 [place] % (Auto) 6.7 Eos % (Auto) 0.8 Baso % (Auto) 0.4 Neut # (Auto) 3.53 Lymph # (Auto) 1.30 [place] # (Auto) 0.35 Eos # (Auto) 0.04 Baso # (Auto) 0.02 Immature Gran # (Auto) 0.00 PT Cancelled INR Cancelled APTT Cancelled PTT Ratio Cancelled D-Dimer Sodium 137 Potassium 4.1 Chloride 104 Carbon Dioxide 26 Anion Gap 7.0 BUN 10 Creatinine 1.04 Est Cr Clr Drug Dosing 48.8 Est GFR ( Amer) 66.2 Est GFR (Non-Af Amer) 57.1 BUN/Creatinine Ratio 10.0 Glucose 198 H Calcium 9.5 Total Bilirubin 0.3 AST 21 ALT 19 Alkaline Phosphatase 130 H Troponin I 0.241 H* Total Protein 7.7 Albumin 3.6 Globulin 4.1 H Albumin/Globulin Ratio 0.9 Lipase 154 COVID-19 Eval Order SARS-CoV-2, RNA, NAAT 10/01/20 10/01/20 10/01/20 16:15 17:37 18:35 WBC RBC Hgb Hct MCV MCH MCHC RDW Std Deviation RDW Coeff of Taye Plt Count MPV Immature Gran % (Auto) Neut % (Auto) Lymph % (Auto) [place] % (Auto) Eos % (Auto) Baso % (Auto) Neut # (Auto) Lymph # (Auto) [place] # (Auto) Eos # (Auto) Baso # (Auto) Immature Gran # (Auto) PT 10.4 INR 1.0 APTT 26.7 PTT Ratio 1.0 D-Dimer Cancelled 330 Sodium Potassium Chloride Carbon Dioxide Anion Gap BUN Creatinine Est Cr Clr Drug Dosing Est GFR ( Amer) Est GFR (Non-Af Amer) BUN/Creatinine Ratio Glucose Calcium Total Bilirubin AST ALT Alkaline Phosphatase Troponin I Total Protein Albumin Globulin Albumin/Globulin Ratio Lipase COVID-19 Eval [facility] SARS-CoV-2, RNA, NAAT 10/01/20 18:35 WBC RBC Hgb Hct MCV MCH MCHC RDW Std Deviation RDW Coeff of Taye Plt Count MPV Immature Gran % (Auto) Neut % (Auto) Lymph % (Auto) [place] % (Auto) Eos % (Auto) Baso % (Auto) Neut # (Auto) Lymph # (Auto) [place] # (Auto) Eos # (Auto) Baso # (Auto) Immature Gran # (Auto) PT INR APTT PTT Ratio D-Dimer Sodium Potassium Chloride Carbon Dioxide Anion Gap BUN Creatinine Est Cr Clr Drug Dosing Est GFR ( Amer) Est GFR (Non-Af Amer) BUN/Creatinine Ratio Glucose Calcium Total Bilirubin AST ALT Alkaline Phosphatase Troponin I Total Protein Albumin Globulin Albumin/Globulin Ratio Lipase COVID-19 Eval Order SARS-CoV-2, RNA, NAAT NEGATIVE
[2020-10-01] MEDS ORDERED: TICAGRELOR 90 MG TAB PO ONE (21:49)
--- NOTE | 2020-10-01 21:59 | Post Anesthesia Assessment ---
Date of Service October 01, 2020 Post Sedation Assessment Vital Signs Temp Pulse Resp BP Pulse Ox 10/01/20 20:45 63 16 102/73 98 10/01/20 20:30 67 17 96/60 L 97 10/01/20 20:15 72 22 97/47 L 10/01/20 20:00 66 10 L 92/54 L 10/01/20 19:45 58 L 16 100/54 L 10/01/20 19:30 67 20 90/80 L 10/01/20 19:15 62 14 103/57 L 94 10/01/20 19:00 59 L 18 96/53 L 93 10/01/20 18:45 107/68 10/01/20 18:31 57 L 13 104/54 L 93 10/01/20 18:04 63 15 121/61 99 10/01/20 17:54 63 21 113/48 L 95 10/01/20 17:45 61 12 111/44 L 94 10/01/20 17:30 59 L 16 96/56 L 95 10/01/20 17:15 54 L 11 L 91/50 L 99 10/01/20 17:00 55 L 12 92/56 L 100 10/01/20 16:53 58 L 13 108/70 100 10/01/20 16:36 61 20 110/67 10/01/20 16:23 98.6 F 54 L 18 85/49 L 99 Recovery Score Activity: Moves 4 extremities Respiration: Deep Breath/Cough Circulation: +/-20% PreAnes Value Consciousness: Fully Awake Oxygen Saturation: O2 needed for >90% Discharge Sedation Level of Care: Fast Track Phase II Post Sedation Plan On clinical assessment, the patient appears to have tolerated the sedation without complications. Patient is recovering as anticipated. Patient will continue to be monitored by nursing and may be discharged when sedation discharge criteria are met per below protocol. Upon Completions of procedure up to 15 minutes continue every 5 minute vital signs and the P.A.R. score; then discharge to a Phase I or Fast Track to Phase II per the following guidelines: * Discharge Patient to appropriate Phase II area if PAR is 8 or greater or return to pre- procedure baseline. The post - procedure orders will be as directed. * If PAR score is less than 8 or not return to pre-procedure baseline then patient will follow Phase I monitoring till PAR is reached for Phase II. The Phase I may be done in procedure room or may call to secure a Phase I area. * If naloxone or flumazenil are used for reversal, hold in Phase I for continued monitoring from when last reversal dose was given for a minimum of 60 minutes or longer pending the nurse and/or physician discretion of patient condition before discharge to Phase II. Please call the Sedation Physician to re-evaluate and complete post-note for discharge to Phase II area. Do NOT discharge from procedure sedation or Phase 1 until post- sedation evaluation note is complete by procedure /sedation MD Sedation Discharge Instructions to be given to the patient at discharge to home.
--- NOTE | 2020-10-01 21:59 | Pre Anesthesia Assessment ---
Date of Service October 01, 2020 Pre Sedation Assessment Vital Signs Temp Pulse Resp BP Pulse Ox 10/01/20 20:45 63 16 102/73 98 10/01/20 20:30 67 17 96/60 L 97 10/01/20 20:15 72 22 97/47 L 10/01/20 20:00 66 10 L 92/54 L 10/01/20 19:45 58 L 16 100/54 L 10/01/20 19:30 67 20 90/80 L 10/01/20 19:15 62 14 103/57 L 94 10/01/20 19:00 59 L 18 96/53 L 93 10/01/20 18:45 107/68 10/01/20 18:31 57 L 13 104/54 L 93 10/01/20 18:04 63 15 121/61 99 10/01/20 17:54 63 21 113/48 L 95 10/01/20 17:45 61 12 111/44 L 94 10/01/20 17:30 59 L 16 96/56 L 95 10/01/20 17:15 54 L 11 L 91/50 L 99 10/01/20 17:00 55 L 12 92/56 L 100 10/01/20 16:53 58 L 13 108/70 100 10/01/20 16:36 61 20 110/67 10/01/20 16:23 98.6 F 54 L 18 85/49 L 99 Cardiovascular RRR, no murmur, no edema Respiratory normal respiratory effort, lungs clear to auscultation Pre-Sedation Airway Assessment Smoking Status: Current some day smoker Hx Sleep Apnea: No Hx Difficult Intubation: No Short, Thick Neck: No Thyromental Distance: > or= 3.5 Finger Breadths Oral Cavity: + WNL Mallampati Class: III ASA: ASA3 Procedure Planning Contraindications for Sedation: none Current Medications Reviewed: Yes Notes The planned sedation has been discussed with the patient. Informed Consent was obtained. I have identified the patient, determined the appropriateness of sedation and have assessed the patient immediately prior to the procedure. All medicine(s) and interventions are by my order.
[2020-10-01] MEDS ORDERED: ONDANSETRON INJ 2 MG/ML 2 ML VIAL IV PRN (22:17)
[2020-10-01] MEDS ORDERED: ACETAMINOPHEN 325 MG TAB PO PRN (22:17)
--- NOTE | 2020-10-01 22:17 | Cardiac Catheterization ---
[facility] Data: Corporate Event Planner Cardiac Status Clinical evaluation leading to the procedure CAD Presenation: Non STEMI Anginal Classification: CCS IV Heart Failure: No Cardiogenic Shock within 24 Hours: No Cardiac Arrest within 24 Hours: No Imaging Studies Past 6 Months: No Stress Studies Past 6 Months: No Diagnostic Physicians Name: Ajith Chavez MD Status: Urgent Closure Device Percutaneous Entry Location: Radial Closure Device: Radial Band Recommendations: PCI without planned CABG PCI Indication: PCI for high risk Non-ALEXANDER Lesion Segment Name: Mid RCA Culprit Artery: Yes Stenosis Prior to Rx (%): 100 Chronic Total Occlusion: No IVUS: No FFR: No Pre-Procedure LAINA Flow: 0 Previously Treated Lesion: No Lesion Complexity: Non-High/Non-C Lesion Length (mm): 18 Thrombus Present: Yes Bifurcation Lesion: No Guidewire Across Lesion: Stenosis Post-Procedure (%): 0 Post-Procedure LAINA Flow: 3 Devices(s) Deployed: Yes Yes Intraprocedure Events Significant Disection: No Perforation: No Cardiac Cath Procedure Full Procedure Date October 01, 2020 Pre-Procedure Diagnosis Pre-Procedure Diagnosis: Non STEMI AUC Score AUC Score: 8 Post-Procedure Diagnosis Post-Procedure Diagnosis: Severe CAD, Successful PCI and Normal Intracardiac Pressures Procedure(s) Performed Procedure(s) Performed: Coronary Angiography, Left Heart Cath and Drug Eluting Stent Circular Saw Filer Ajith Chavez MD Curing Oven Attendant(s) [place] Estimated Blood Loss Estimated Blood Loss: 15 Medication(s) Medication(s): Fentanyl, Heparin, Lidocaine 1%, Nicardipine, Nitroglycerin and Versed Medication(s): ticagrelor Summary of Findings Indication: High risk NSTEMI Access: 6 Fr slender right radial artery Catheters: Downs, pigtail, JR4 guide Findings: LM -Short, no significant disease, almost separate ostium LAD -medium caliber vessel, 20 to 30% proximal to mid disease, small tortuous distal vessel wraps around apex. Small diagonals without significant disease Circumflex -medium caliber, proximal and mid segment luminal irregularities. Large OM 2 with 50 to 60% proximal stenosis. RCA -dominant, medium caliber, mildly calcified, 100% acute on chronic mid RCA occlusion. Distal vessels faintly fills via [id number] collaterals. LVEDP -0 -- PCI -- Antithrombotic therapy: Heparin, ticagrelor Procedure: RCA cannulated with JR4 guide [employer] 50 wire passed across lesion into distal vessel Mid RCA lesion predilated with 2.5 compliant balloon Dilated lesion stented with 3.0 x 26 mm [place] drug-eluting stent Stent post-dilated with 3.25 noncompliant balloon IC vasodilators administered for spasm Post procedure LAINA 3 flow, stent well expanded with minimal residual stenosis and no apparent cardiac complications. Arterial Closure: TR band Summary: 1. Severe single vessel coronary artery disease -100% acute on chronic mid RCA occlusion 2. Mild to moderate nonculprit vessel disease 50 to 60% proximal OM 2 3. Low intracardiac filling pressure 4. Successful PCI of mid to distal RCA with single drug-eluting stent (3.0 x 26 mm Gabriele; postdilated with 3.25 NC). Recommendations: To PCU for continued monitoring IV fluid bolus as needed for hypotension Loaded with ticagrelor 180 mg in Corporate Event Planner Continue dual-antiplatelet therapy for at least 1 year. Transition to clopidogrel on discharge. Continue statin, and ASCVD risk factor modification Consult cardiac Rehab Hemodynamics Rest Ao:: 127/55/86 Final Ao: 92/46/66 LV: 86/0 Recommendations Recommendations: PCI without planned CABG Specimens Specimens: None Radiation Exposure (mGy) 1190 Contrast (mls) 70 Fluids (cc crystalloids) Fluids (cc crystalloids): 100 Drains Drains: None Anesthesia Moderate Procedural Complication(s) None Disposition PCU I attest to the content of the Intraoperative Record and any orders documented therein. Any exceptions are noted below. [facility] Card Cath Procedure Codes Cardiac Catheterization Procedure 1: Cardiovascular Cath Procedures: 38786 Coronaries and LHC (+/-LV) Moderate Sedation Procedure 1: Sedation/Anesthesia: 99550 Mod Sedation by the same physician;Init15 Min Child Age 5 & Up Procedure 2: Sedation/Anesthesia: 29392 Mod Sedation by the same physician; Ea [id number] Minutes Stenting Procedure 1: Cardiovascular Stent Procedures: 27313 Perc transluminal revascularization of acute sub/total occl, aMI PG Care Time/CCT Total # of Minutes Spent Total Time Spent with Patient: Total time spent is greater than 50% in coord ination of care (as documented) at patient's floor/unit and/or counseling patient:
[2020-10-01] MEDS ORDERED: SODIUM CHLORIDE 0.9% 1000ML 1,000 ML IV SCH (22:30)
[2020-10-02] MEDS ORDERED: GLUCOSE 40% GEL 15 GM TUBE PO PRN (03:15)
[2020-10-02] MEDS ORDERED: GLUCOSE 10 TABS/TUBE PO PRN (03:15)
[2020-10-02] MEDS ORDERED: GLUCAGON FOR INJ 1 MG VIAL SQ PRN (03:15)
[2020-10-02] MEDS ORDERED: CARBOHYDRATES FOR HYPOGLYCEMIA PO PRN (03:15)
[2020-10-02] MEDS ORDERED: DEXTROSE 50% 50 ML SYRINGE IV PRN (03:15)
--- NOTE | 2020-10-02 05:08 | History and Physical Report ---
DATE OF ADMISSION: 10/01/2020 CHIEF COMPLAINT: Chest pain. 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 The patient woke up yesterday at 2:15 a.m. with pain in her left arm, then it slowly came up into the chest, lower gums, and back, and the pain got progressively worse over the day and presented to ER in the evening with severe chest pain about 10/10 in severity. The nitro and narcotics pain medication in the ER did not relieve her pain. EKG was okay, but troponin was elevated and heart alert was called and she was taken to the cardiac catheterization lab and she was found to have [id number] 100% occlusion of RCA and she is status post stent placement. The patient, after the procedure, her chest pain completely resolved. The patient states before that she had some nausea that also resolved and she is feeling fine now, no complaints. Prior to this incident, the patient says she was walking and climbing steps okay. Denies any headache, no blurred vision, no earache, no runny nose, no sore throat, no cough, no shortness of breath. Currently, no nausea or abdominal pain. Normal bowel and bladder movements. Afebrile, hemodynamically stable, resting comfortably. ALLERGIES: SULFA ANTIBIOTICS. PAST MEDICAL HISTORY: As mentioned above. PAST SURGICAL HISTORY: Colonoscopy, EGD, multiple gastric bypass for obesity, knee arthroscopy, appendectomy, bilateral oophorectomy, hysterectomy, cholecystectomy, total abdominal hysterectomy with removal of tubes. MEDICATIONS: Currently, the patient is on esomeprazole 40 mg p.o. a.m., levothyroxine 50 mcg p.o. a.m., metformin 500 mg p.o. b.i.d., misoprostol 100 mcg p.o. q.i.d., nortriptyline 50 mg p.o. at bedtime, sucralfate 1 gram p.o. q.i.d., suvorexant 5 mg p.o. at bedtime. FAMILY HISTORY: Significant for brother had diabetes, mother had diabetes, brother has heart disorder. SOCIAL HISTORY: . Former smoker. Currently no alcohol use. History of DUI in the past. No drug use. REVIEW OF SYSTEMS: As per HPI. Rest of the review of systems negative. PHYSICAL EXAMINATION: GENERAL: The patient is of moderate build, not in acute distress. VITAL SIGNS: Temperature 36.6, pulse 61, respiratory rate 14, blood pressure 105/60, oxygen 96% on room air. HEENT: Pupils are equal, round, and reactive to light. Oral mucosa moist. NECK: No JVD, no neck masses. CARDIOVASCULAR: S1, S2 heard. Regular rate and rhythm. No murmur, no gallop. RESPIRATORY SYSTEM: Normal AP diameter. No accessory muscle use. No wheezing, no crackles. ABDOMEN: Soft, bowel sounds present, nontender. No distention. CENTRAL NERVOUS SYSTEM: Cranial nerves II-XII grossly intact, nonfocal. EXTREMITIES: No pedal edema present. Right radial catheterization site is clean. LABORATORY DATA: WBC 5.2, hemoglobin 14, hematocrit 42.1, platelets 266. PT 10.5, INR 1, APTT 26.7. D-dimer 330. Sodium 137, potassium 4.1, chloride 104, bicarbonate 26, BUN 10, creatinine 1.04, serum glucose 198, calcium 9.4, total bilirubin 0.3, AST 21, ALT 19, alkaline phosphatase 131. Troponin 1 of 0.24, lipase 154. COVID-19 negative. IMAGING DATA: CT chest, no airspace consolidation or pleural effusion. Three pleural-based nodules measuring up to 8 mm. Chest x-ray, no acute findings. EKG: Sinus bradycardia with sinus arrhythmia at a rate of 52. Nonspecific ST-T abnormalities seen. Left axis deviation. ASSESSMENT AND PLAN: This is a 64-year-old female who presents with chest pain, found to have non-ST elevated myocardial infarction. 1. Non-ST elevated myocardial infarction. Presents with chest pain going on since the morning. It was 10/10 in severity with elevation of troponin to 0.2. EKG, no acute ST changes seen. Pain was not resolved with treatment with narcotic pain medications. Heart alert was called and was taken to the cardiac catheterization lab and found to have 100% [id number] mid RCA occlusion and status post stent placement. The patient is currently asymptomatic and tolerated the procedure fine. Postop cardiac care as per cardiology. The patient is currently on aspirin, high-dose statin, Brilinta. Will closely monitor in the tele floor. Will follow the lipid profile. 2. Diabetes: Hold metformin. Placed on insulin sliding scale. Follow the blood sugar. 3. History of hypothyroidism: Continue Synthroid. 4. History of gastroesophageal reflux disease and history of gastric stenosis: Continue home sucralfate, misoprostol, and esomeprazole. 5. Hypertension: Currently not on any medication. Will monitor the blood pressure. 6. Deep venous thrombosis prophylaxis, sequential compression devices for now. 7. Disposition: Closely monitor in the tele floor. Expect to discharge home and follow with the family doctor and cardiology. CHARLIE
[2020-10-02 05:12] LABS: Basophils # (auto) 0.01 K/uL (0-0.2); Basophils % (auto) 0.2 %; Eosinophils # (auto) 0.06 K/uL (0-0.5); Eosinophils % (auto) 1.4 %; Hematocrit (blood only) 34.5 % (37-47); Hemoglobin 11.3 g/dL (12.0-16.0); Lymphocytes # (auto) 0.97 K/uL (1.2-3.4); Mean Corpuscular Hemoglobin 30.1 pg (25-34); Mean Corpuscular Hgb Conc 32.8 g/dL (32-36); Mean Platelet Volume 9.1 fL (7.4-10.4); Monocytes # (auto) 0.27 K/uL (0.11-0.59); Monocytes % (auto) 6.4 %; Platelet Count 197 K/uL (130-400); RDW Coefficient of Variation 13.5 % (11.5-14.5); RDW Standard Deviation 45.1 fL (36.4-46.3); Red Blood Count 3.75 M/uL (4.2-5.4); White Blood Count 4.21 K/uL (4.8-10.8)
[2020-10-02 05:41] LABS: Troponin I 7.65 ng/ml (0-0.045)
[2020-10-02 06:30] LABS: Estimated Average Glucose 154 mg/dl
[2020-10-02] MEDS ORDERED: LEVOTHYROXINE SODIUM 50 MCG TABLET PO SCH (06:30)
--- NOTE | 2020-10-02 07:47 | Electrocardiogram Report ---
Test Reason : Blood Pressure : / mmHG Vent. Rate : 067 BPM Atrial Rate : 067 BPM P-R Int : 180 ms QRS Dur : 086 ms QT Int : 394 ms P-R-T Axes : 019 109 035 degrees QTc Int : 416 ms Normal sinus rhythm Rightward axis Old Septal infarct (cited on or before 09-MAR-2020) Nonspecific T wave abnormality Anterior leads Abnormal ECG When compared with ECG of 09-MAR-2020 19:17, QRS axis Shifted right Nonspecific T wave abnormality Anterior leads now present Confirmed by Noe Leggett ([id number]) on 10/02/2020 7:47:30 AM Referred By: REFERRED SELF Confirmed By:Noe Leggett
--- NOTE | 2020-10-02 07:57 | Electrocardiogram Report ---
Test Reason : Blood Pressure : / mmHG Vent. Rate : 052 BPM Atrial Rate : 052 BPM P-R Int : 154 ms QRS Dur : 094 ms QT Int : 486 ms P-R-T Axes : 007 -45 013 degrees QTc Int : 451 ms Sinus bradycardia with sinus arrhythmia Left anterior fascicular block Nonspecific T wave abnormality Anterior leads Abnormal ECG When compared with ECG of 01-OCT-2020 16:18, Criteria for Septal infarct no longer present Left anterior fascicular block now present Confirmed by Noe Leggett ([id number]) on 10/02/2020 7:57:16 AM Referred By: REFERRED SELF Confirmed By:Noe Leggett
--- NOTE | 2020-10-02 08:02 | Electrocardiogram Report ---
Test Reason : Blood Pressure : / mmHG Vent. Rate : 059 BPM Atrial Rate : 059 BPM P-R Int : 196 ms QRS Dur : 094 ms QT Int : 490 ms P-R-T Axes : 043 -47 019 degrees QTc Int : 485 ms Sinus bradycardia Left anterior fascicular block Nonspecific T wave abnormality Anterior leads Abnormal ECG When compared with ECG of 01-OCT-2020 18:51, No significant change Confirmed by Noe Leggett ([id number]) on 10/02/2020 8:02:08 AM Referred By: REFERRED SELF Confirmed By:Noe Leggett
[2020-10-02] MEDS: miSOPROStoL 100 MCG TAB PO SCH ×2 (08:09→12:07)
[2020-10-02] MEDS: INSULIN ASPART 100 UNITS/ML 3 ML PEN SC SCH ×2 (08:09→12:19)
[2020-10-02] MEDS: SUCRALFATE 1 GM TAB PO SCH ×2 (08:09→12:07)
[2020-10-02] MEDS ORDERED: PANTOprazole 40 MG TAB PO SCH (09:00)
[2020-10-02] MEDS ORDERED: ATORVASTATIN 40 MG TAB PO SCH (09:00)
[2020-10-02] MEDS ORDERED: TICAGRELOR 90 MG TAB PO SCH (09:00)
[2020-10-02] MEDS ORDERED: ASPIRIN 81 MG ECTAB PO SCH (09:00)
--- NOTE | 2020-10-02 10:50 | Cardiology Progress Note ---
Date of Service October 02, 2020 Assessment & Plan (1) Non-ST elevation (NSTEMI) myocardial infarction: 64-year-old female presented with symptoms of persistent chest pain, elevated troponin taken urgently to diagnostic cardiac catheterization last evening demonstrating 100% occlusion of the mid right coronary artery, acute. Vessel successfully opened with good result with drug-eluting stent. Patient now asymptomatic. Feels well no arrhythmias on telemetry Plan: Dual antiplatelet therapy with aspirin and clopidogrel minimum 6-month Begin low-dose beta-cynthia with metoprolol succinate 12.5 mg p.o. daily High-dose statin ordered with atorvastatin 80 mg/day Cardiac rehab post hospital to Tobacco cessation mandated Follow-up cardiology [facility] 1 to 2 weeks with patient able to be discharged after ambulation today (2) Elevated troponin: (3) History of MRSA infection: Would include blood cultures as part of clinical evaluation given atypical presentations in the past Admission and Anticipated Discharge Date Admission Date: October 01, 2020 Subjective Patient was seen and examined, chart, medications, telemetry reviewed. Patient feels substantially improved immediately post cardiac catheterization and coronary intervention last night. No further chest pains, shortness of breath, tachypalpitations No dizziness or lightheadedness.. No bleeding issues. Right radial access healing Review of Systems Review of Systems: All systems reviewed & are unremarkable except as noted in HPI & below Physical Exam Constitutional: + thin; no acute distress Eyes: PERRL, conjunctivae normal, anicteric sclerae + nystagmus ENMT: external ear and nose normal, oropharynx normal Neck: trachea midline, no thyromegaly Cardiovascular: Rate/Rhythm: regular rate and regular rhythm Heart Sounds: normal S1 and normal S2; no gallop and no murmur Palpation: normal PMI Vessels: normal carotid upstroke and radial pulses present; no JVD and no carotid bruit Extremities: no edema Gastrointestinal (Abdomen): normal bowel sounds, soft, nontender, no hepatosplenomegaly Musculoskeletal: no cyanosis or clubbing, extremities motor strength 5/5 Skin: no rashes, warm and dry Neurologic: PERRL, EOMI, accommodation nl, no face palsy, no dysarthria Psychiatric: A+Ox3, euthymic affect Results & Data ([facility]) Vital Signs (Past 12 Hours) Vital Signs Temp Pulse Pulse Resp BP BP Pulse Ox 10/02/20 08:30 36.8 C 69 18 104/72 97 10/02/20 08:00 60 10/02/20 06:16 61 14 104/58 L 10/02/20 05:43 72 17 86/40 L 10/02/20 04:49 58 L 14 86/45 L 10/02/20 03:43 64 15 82/47 L 10/02/20 02:22 36.6 C 61 14 105/60 96 10/02/20 01:52 60 14 116/65 10/02/20 01:21 65 15 111/62 96 10/02/20 00:51 58 L 15 109/61 10/02/20 00:27 60 14 99/56 L 10/02/20 00:12 59 L 15 99/56 L 10/01/20 23:57 59 L 15 93/57 L 10/01/20 23:54 64 10/01/20 23:42 57 L 15 93/54 L 10/01/20 23:27 59 L 15 94/53 L 10/01/20 23:16 65 18 95/52 L 10/01/20 23:00 62 15 104/60 92 10/01/20 22:50 67 20 97 Diagnostic Findings Preliminary echocardiogram, full study not available for review Mild hypokinesis inferior inferoseptal wall EF 50-55%
[2020-10-02] MEDS ORDERED: CLOPIDOGREL BISULFATE 300 MG TAB PO STA (10:55)
[2020-10-02] MEDS ORDERED: METOPROLOL SUCC 25MG EXT REL TAB PO SCH (11:00)
--- NOTE | 2020-10-02 14:18 | Discharge Summary ---
Date of Service October 02, 2020 Admission HPI Per Admitting Provider DICTATED BY: Joe House MD DATE OF ADMISSION: 10/01/2020 CHIEF COMPLAINT: Chest pain. 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 The patient woke up yesterday at 2:15 a.m. with pain in her left arm, then it slowly came up into the chest, lower gums, and back, and the pain got progressively worse over the day and presented to ER in the evening with severe chest pain about 10/10 in severity. The nitro and narcotics pain medication in the ER did not relieve her pain. EKG was okay, but troponin was elevated and heart alert was called and she was taken to the cardiac catheterization lab and she was found to have [id number] 100% occlusion of RCA and she is status post stent placement. The patient, after the procedure, her chest pain completely resolved. The patient states before that she had some nausea that also resolved and she is feeling fine now, no complaints. Prior to this incident, the patient says she was walking and climbing steps okay. Denies any headache, no blurred vision, no earache, no runny nose, no sore throat, no cough, no shortness of breath. Currently, no nausea or abdominal pain. Normal bowel and bladder movements. Afebrile, hemodynamically stable, resting comfortably. Principal Diagnosis Non-ST elevated LA Cardiac stent placement Discharge Exam Constitutional WD/WN, vitals as above Eyes PERRL, conjunctivae normal, anicteric sclerae ENMT external ear and nose normal, oropharynx normal Neck trachea midline, no thyromegaly Respiratory normal respiratory effort and + cough; no respiratory distress Auscultation: + diminished lung sounds; no rales and no wheezes Cardiovascular RRR, no murmur, no edema Gastrointestinal (Abdomen) normal bowel sounds, soft, nontender, no hepatosplenomegaly Musculoskeletal no cyanosis or clubbing, extremities motor strength 5/5 Skin no rashes, warm and dry Neurologic PERRL, EOMI, accommodation nl, no face palsy, no dysarthria Psychiatric A+Ox3, euthymic affect Discharge Data Allergies Allergy/AdvReac Type Severity Reaction Status Date / Time Sulfa (Sulfonamide Allergy Severe FACE/THROAT Verified 10/01/20 19:21 Antibiotics) SWELL UP Consultations 10/01/20 22:19 Consult Cardiac Rehabilitation Routine 10/01/20 23:46 Consult Cardiology Routine Procedures Performed Operation Date: 10/01/20 20:30 Actual Procedures p Cineradiography w/Routine Exam - Kieran Chavez MD s Aspiration/PCI w/LINDA for Stemi - Kieran Chavez MD s Cath, Left with Cors and Vent - Kieran Chavez MD Ordered Studies 10/01/20 18:17 CT chest wo con Stat 10/01/20 19:48 CL Cath Imgs for PACS use only Stat Hospital Course (1) Non-ST elevation (NSTEMI) myocardial infarction: 1) Non-ST elevation (NSTEMI) myocardial infarction: 64-year-old female presented with symptoms of persistent chest pain, CODE Heart alert was called -ischemic change in EKG/elevated troponin , ongoing chest pain emergent cardiac catheterization-demonstrated 100% occlusion of the mid right coronary artery, s/p LINDA PTCA pt has been symptom free since yesterday , no chest pain , no SOB /ATKINSON or orthopnia vitals been stable appreciate input from Cardiology stable to be discharged hoem today Plan: Dual antiplatelet therapy with aspirin and clopidogrel minimum 6-month Begin low-dose beta-cynthia with metoprolol succinate 12.5 mg p.o. daily High-dose statin ordered with atorvastatin 80 mg/day Follow-up cardiology Tessy Gonogra 1 to 2 weeks referral for Cardiac rehab -per cardiology (2) Elevated troponin: -due to NSTEMI management as outlined above (3) Tobacco use disorder : strict smoking cessation recommended FULL CODE DISPOSITION ; pt is discharged home today Total Time Total Time Spent Total Time Spent (In Minutes): 35 mins Total Time Includes: Examination of the Patient, Discharge Planning, Medication Reconciliation and Communication With Other Providers Discharge Plan Discharge Items Patient Disposition: Home - Self-Care Reason For Visit: NSTEMI Discharge Diagnosis: NSTEMI CARDIAC STENT PLACEMENT Activity: As commented below Activity Comment: TOLERATED Non-emergency contact: Primary Care Provider Call non-emergency contact if: you have any medication questions Follow-up/Referrals: Barry Summers MD [Physician] - (CARDIOLOGY FOLLOW UP IN 1-2 WEEKS ) Prateek Tejeda MD [Primary Care Provider] - (HOSPITAL FOLLOW UP IN A WEEK ) Diet: Heart Healthy Addtl Attending Provider Instructions: ACTIVITY RECOMMENDATIONS: Excess manipulation of the wrist should be avoided for the next 24-48 hours. * No lifting over 2 pounds (approximately a 1/2 gallon of milk) with the utilized arm for 24 hours. * No strenuous activity such as bowling or tennis for 3 days. * Keep the site of the procedure covered with a bandage for 24 hours. *You may shower the day after the procedure. Do not take a tub bath or submerge the puncture site in water for the next 3 days. *Do not operate any motorized equipment for 3 days. SPECIAL CARE INSTRUCTIONS: The site may be slightly bruised and sore following your procedure. Should any of the following occur, contact the Dr. who performed your procedure. 1. Redness/inflammation, swelling, chills, or fever, or colored drainage at procedure site within 3-7 days after your procedure. 2. Coldness, discoloration, ongoing numbness, severe pain, or swelling. Expect mild tingling of hand and tenderness at the puncture site for up to three days. If this persists beyond three days, or other symptoms develop, notify the Dr. who performed your procedure. BLEEDING: If the procedure site on your wrist begins to bleed, do not panic 1. Place 1 or 2 fingers firmly just slightly above the insertion site to stop the bleeding. You may be able to feel your pulse as you hold pressure. 2. Lift your finger after 5 minutes to see if the bleeding has stopped. 3. Once the bleeding has stopped, gently wipe the wrist area clean with a bandage. * If the bleeding from your wrist does not stop after 10 minutes, or if there is a large amount of bleeding or spurting, call 911 (do not drive yourself to the hospital). SKIN IRRITATION: * You may experience some redness and/or swelling in the area where radiation was administered. If any skin irritation occurs, please contact your family physician. FOLLOW UP VISIT: Keep any scheduled doctor appointments. Addtl Guard Manager Provider Instructions: ABSOLUTE SMOKING CESSATION REQUIRED TO PREVENT FUTURE HEART ATTACK /STROKE DO NOT TAKE METFORMIN TILL URI TAKE ASPIRIN AND PLAVIX AFTER MEAL/FOOD ( CAN TAKE IT AFTER DINNER ) -TAKING IN EMPTY STOMACH MAY CAUSE STOMACH ULCER AND BLEEDING DO NOT STOP ANY OF THE MEDICATIONS WITHOUT TALKING WITH YOUR PHYSICIAN Pending Studies at Discharge: No Stand-Alone Forms: My [facility], Smoking Cessation Medications and DC Order Prescriptions: New atorvastatin 40 mg Tablet 80 mg PO QAM 30 Days Qty: 60 RF: 3 clopidogrel 75 mg Tablet 75 mg PO QAM 30 Days Qty: 30 RF: 3 aspirin 81 mg Tablet,Delayed Release (Dr/Ec) 81 mg PO QAM 30 Days Qty: 30 RF: 3 metoprolol succinate 25 mg Tablet Extended Release 24 Hr 12.5 mg PO QAM 30 Days Qty: 15 RF: 3 Continued metformin 500 mg tablet 500 mg PO BID RF: 0 sucralfate 1 gram tablet 1 g PO QID RF: 0 levothyroxine 50 mcg tablet 50 mcg PO QAM RF: 0 esomeprazole magnesium 40 mg capsule,delayed release(DR/EC) 40 mg PO QAM RF: 0 misoprostol 100 mcg tablet 100 mcg PO QID RF: 0 nortriptyline 50 mg capsule 50 mg PO HS RF: 0 Belsomra 5 mg tablet 5 mg PO HS RF: 0 Discharge Orders: Discharge Order (Routine); Ordered 10/02/20 Ordered By: Barbi Rodas/Other Patient Handouts: Tips Cardiovascular Quit Smoking, Managing Type 2 Diabetes, Getting Support for Quitting Smoking, Coping with Smoking Withdrawal, Eating Heart-Healthy Foods Admission Data Admit Date/Time: 10/01/20 22:19 Attending Provider: Barbi Herrera Admit Provider: Kieran Chavez Primary Care Provider: Prateek Tejeda Other Providers: Barry Summers ; Joe House Other Interventions: Discharge Summary Assessment (RN) Last Done: 10/02/20 14:13
[2020-10-03] MEDS ORDERED: CLOPIDOGREL BISULFATE 75 MG TAB PO SCH (09:00)
== END 2020-10-02 15:05 | disposition home or self-care (01) ==
LOC: ED 16:08 → 1E 20:59 → CC 20:59 → SUATTDRO 22:19

== ENCOUNTER 2021-05-01 10:21 | Inpatient (IN) ==
[2021-05-01] MEDS ORDERED: GI COCKTAIL ED USE PO ONE (10:48)
[2021-05-01] MEDS ORDERED: SODIUM CHLORIDE 0.9% 1000ML 1,000 ML IV ONE (10:48)
[2021-05-01] MEDS ORDERED: ONDANSETRON INJ 2 MG/ML 2 ML VIAL IV STA (10:48)
--- NOTE | 2021-05-01 11:05 | XRay Report ---
SINGLE VIEW CHEST CLINICAL HISTORY: Nausea and vomiting. FINDINGS: An AP, portable, upright chest radiograph is compared to chest x-ray and chest dated 2019. The cardiomediastinal silhouette is unremarkable. Chronic interstitial thickening is similar to previous. There is mild bibasilar scarring/atelectasis. No airspace consolidation or large pleural e ffusion is identified. No pneumothorax is seen. The skeletal structures are osteopenic. There are hea led right-sided rib fractures. IMPRESSION: No active disease in the chest. ACT 112: Negative or not required by law. Electronically signed by: Yury Brown M.D. 05/01/2021 11:04 AM
[2021-05-01 11:26] LABS: Basophils # (auto) 0.01 K/uL (0-0.2); Basophils % (auto) 0.2 %; Eosinophils # (auto) 0.04 K/uL (0-0.5); Eosinophils % (auto) 0.8 %; Hematocrit (blood only) 40.4 % (37-47); Hemoglobin 13.6 g/dL (12.0-16.0); Immature Granulocytes # (auto) 0.01 K/uL (0.00-0.02); Immature Granulocytes % (auto) 0.2 %; Lymphocytes # (auto) 1.14 K/uL (1.2-3.4); Lymphocytes % (auto) 23.6 %; Mean Corpuscular Hemoglobin 30.9 pg (25-34); Mean Corpuscular Hgb Conc 33.7 g/dL (32-36); Mean Corpuscular Volume 91.8 fL (80-100); Mean Platelet Volume 9.1 fL (7.4-10.4); Monocytes # (auto) 0.31 K/uL (0.11-0.59); Monocytes % (auto) 6.4 %; Neutrophils # (auto) 3.32 K/uL (1.4-6.5); Neutrophils % (auto) 68.8 %; Platelet Count 212 K/uL (130-400); RDW Coefficient of Variation 13.5 % (11.5-14.5); RDW Standard Deviation 45.6 fL (36.4-46.3); White Blood Count 4.83 K/uL (4.8-10.8)
[2021-05-01 11:38] LABS: Partial Thromboplastin Ratio 0.9; Partial Thromboplastin Time 24.1 Seconds (21.0-31.0); Prothrombin Time 10.1 Seconds (9.0-12.0)
[2021-05-01 11:44] LABS: Alanine Aminotransferase 19 U/L (12-78); Albumin Level 3.5 gm/dl (3.4-5.0); Aspartate Aminotransferase 20 U/L (15-37); BUN Creatinine Ratio 11.5 (10-20); Blood Urea Nitrogen 12 mg/dl (7-18); Carbon Dioxide 28 mmol/L (21-32); Chloride 104 mmol/L (98-107); Est GFR (African American) 64.3 ml/min; Est GFR (Non-African American) 55.4 ml/min; Glucose 109 mg/dl (70-99); Lipase 118 U/L (73-393); Magnesium 1.8 mg/dl (1.8-2.4); Potassium 4.3 mmol/L (3.5-5.1); Sodium 139 mmol/L (136-145)
[2021-05-01 11:49] LABS: Alkaline Phosphatase 95 U/L (45-117); Bilirubin Direct 0.3 mg/dl (0-0.2); Bilirubin,Total 0.8 mg/dl (0.2-1); Total Protein 6.8 gm/dl (6.4-8.2); Troponin I < 0.015 ng/ml (0-0.045)
--- NOTE | 2021-05-01 12:10 | Emergency Department Note ---
History of Present Illness General Chief complaint: Illness Stated complaint: VOMITING/LIGHTHEADED/CHEST PAIN Time Seen by Provider: 05/01/21 10:38 History of Present Illness Provider complaint: Nausea vomiting chest pain Onset (ago): day(s) 2 Location: chest and abdomen Radiation: non-radiation Severity: moderate Maximum Pain Intensity: 7 Current Pain Intensity: 7 Quality: + burning, + stabbing and + aching Relieved By: + none Exacerbated By: + none Associated symptoms: + chest pain, + malaise, + nausea/vomiting and + weakness; no cough, no headaches, no shortness of breath and no syncope 65-year-old female presents emergency department with nausea vomiting abdominal pain and chest pain. Patient reports her symptoms are gone for last 2 days. Patient reports she gets a burning sensation in her epigastric area and then it radiates into her chest. Patient also reports the pain is exacerbated when she takes a deep breath. Patient states she took a sublingual nitro yesterday which improved her pain. Patient states she was going to get another nitroglycerin today however than she realized she ran out of them. She denies any falls. She denies any alcohol abuse. No hematemesis coffee-ground emesis bilious vomiting melena hematochezia vaginal bleeding dysuria or hematuria. Patient states she has 1 dose of the Covid vaccine and is due to get her second 1 next week. Home Medications Medication Instructions Recorded Confirmed Type Belsomra 5 mg PO HS 10/01/20 05/01/21 History esomeprazole magnesium 40 mg PO QAM 10/01/20 05/01/21 History levothyroxine 50 mcg PO QAM 10/01/20 05/01/21 History metformin 500 mg PO BID 10/01/20 05/01/21 History misoprostol 100 mcg PO QID 10/01/20 05/01/21 History nortriptyline 50 mg PO HS 10/01/20 05/01/21 History sucralfate 1 g PO ACHS 10/01/20 05/01/21 History aspirin 81 mg PO QAM 30 Days #30 tab 10/02/20 05/01/21 Rx atorvastatin 80 mg PO QAM 30 Days #60 tab 10/02/20 05/01/21 Rx clopidogrel 75 mg PO QAM 30 Days #30 tab 11/28/20 06/27/21 Rx metoprolol succinate 12.5 mg PO QAM 30 Days #15 tab 10/02/20 05/01/21 Rx Allergies Allergy/AdvReac Type Severity Reaction Status Date / Time Sulfa (Sulfonamide Allergy Severe FACE/THROAT Verified 05/01/21 11:14 Antibiotics) SWELL UP Past Med/Surg History Medical History (Updated 05/01/21 @ 13:25 by Kenan Paul) Alcoholic HX (NO PROBLEMS SINCE 2012) Anemia, iron deficiency Anxiety and depression Arthritis Cardiomyopathy Esophagus disorder GERD (gastroesophageal reflux disease) Hx of diabetes mellitus CLEARED AFTER GASTRIC BYPASS PER PATIENT Hx of intestinal obstruction Hx of migraines Hx of sleep apnea Hypotension Hypothyroidism Osteoarthritis Poor intravenous access Stomach ulcer Surgical History Abscess Hx of I&D of left axilla abscess. MRSA POSITIVE History of appendectomy History of cataract surgery RT/LEFT History of cholecystectomy History of colonoscopy History of esophagogastroduodenoscopy (EGD) History of hysterectomy History of tonsillectomy and adenoidectomy History of tooth extraction History of vascular access device CENTRAL LINE/REMOVED Hx of gastric bypass 20 YEARS AGO Nausea and vomiting after administration of anesthetic agent Family History Mother Family history of diabetes mellitus Father Family history of diabetes mellitus Other No pertinent family history in first degree relatives Social History Smoking Status: Never smoker Second Hand Exposure: No; Hx Alcohol Use: No Hx Substance Use: No Preferred Language: French Communication Ability: Effective Program Therapist Required: No Beliefs That Will Affect Care: None marital status: Current Living Situation: Alone Current Living Situation Comment: [facility] Feels Safe at Home: Yes Assistive Devices: None Review of Systems A total of 10 systems reviewed and were otherwise negative Physical Exam Vital Signs Vital Signs - 24 hr 05/01/21 10:31 05/01/21 10:47 05/01/21 11:00 Temperature 36.7 C Temperature Source Temporal Artery Scan Pulse Rate 90 70 76 Pulse Rate [Finger] Pulse Rate from SpO2 Sensor 70 73 Pulse Rhythm Regular Respiratory Rate 18 20 12 Respiratory Effort / Characteristics Non-Labored Spontaneous Respiratory Depth Normal Blood Pressure 92/69 L 109/72 135/77 Blood Pressure [Left Arm] Blood Pressure Mean 76 84 96 Blood Pressure Mean [Left Arm] Pulse Oximetry 99 98 98 Oxygen Delivery Method Room Air Sepsis Recent Fever Within 48 Hours No Sepsis New/Unexplained Change in Mental Status No Sepsis Action Taken by Nursing No Action Required 05/01/21 11:08 05/01/21 12:00 05/01/21 12:34 Temperature Temperature Source Pulse Rate 73 70 Pulse Rate [Finger] Pulse Rate from SpO2 Sensor 72 69 Pulse Rhythm Respiratory Rate 17 14 Respiratory Effort / Characteristics Respiratory Depth Blood Pressure 108/62 136/54 L Blood Pressure [Left Arm] Blood Pressure Mean 77 81 Blood Pressure Mean [Left Arm] Pulse Oximetry 98 93 99 Oxygen Delivery Method Room Air Sepsis Recent Fever Within 48 Hours Sepsis New/Unexplained Change in Mental Status Sepsis Action Taken by Nursing 05/01/21 13:00 Temperature 37.6 C H Temperature Source Oral Pulse Rate Pulse Rate [Finger] 65 Pulse Rate from SpO2 Sensor Pulse Rhythm Respiratory Rate 15 Respiratory Effort / Characteristics Respiratory Depth Blood Pressure Blood Pressure [Left Arm] 96/54 L Blood Pressure Mean Blood Pressure Mean [Left Arm] 68 Pulse Oximetry Oxygen Delivery Method Sepsis Recent Fever Within 48 Hours Sepsis New/Unexplained Change in Mental Status Sepsis Action Taken by Nursing Physical Exam GENERAL: She is oriented to person, place, and time. She appears well-developed and well-nourished. She does not appear distressed. HENT: Exam performed. -Head: Normocephalic and atraumatic. -Right Ear: External ear normal. No mastoid tenderness. -Left Ear: External ear normal. No mastoid tenderness. -Mouth/Throat: The oropharynx is clear and moist. No trismus in the jaw. No dental abscesses or uvula swelling. No oropharyngeal exudate or tonsillar abscesses. EYES: Conjunctivae and EOM are normal. Pupils are equal, round, and reactive to light. Right eye exhibits no discharge. Left eye exhibits no discharge. No scleral icterus. NECK: Normal range of motion. Neck supple. No JVD present. No spinous process tenderness present. No carotid bruit present. No rigidity. No tracheal deviation and normal range of motion present. No Brudzinski's sign and no Kernig's sign noted. CV: Normal rate, regular rhythm, normal heart sounds and intact distal pulses. There is no peripheral edema. Palpable radial pulses bue. PULM/CHEST: Effort normal and breath sounds normal. No respiratory distress. No stridor. She has no wheezes. She has no rales. -Chest Wall: She exhibits no tenderness. ABD: The abdomen is soft. Bowel sounds are normal. She has no distension. No mass is present. There is no tenderness. There is no rebound, no guarding, no Castellanos's sign and no tenderness at McBurney's point. Rovsig negative MUSC/SKEL: Normal range of motion. There is no peripheral edema, tenderness or deformity. LYMPH: No cervical adenopathy. NEURO: She is alert and oriented to person, place, and time. She has normal strength. No cranial nerve deficit or sensory deficit. Coordination and gait normal. GCS eye subscore is 4. GCS verbal subscore is 5. GCS motor subscore is 6. Cerebellar tests wnl. SKIN: Skin is warm and dry. She is not diaphoretic. PSYCH: She has a normal mood and affect. Behavior is normal. Judgment and thought content normal. Course Course 1038: The patient was evaluated in room A9. A complete history and physical exam was performed Cardiac monitoring: An order was placed for continuous cardiac monitoring. The monitor shows a rate of 80 with sinus rhythm Patient hypotensive. Will hold off on nitroglycerin at this time and give IV fluids and try GI cocktail. EMR reviewed.Patient has a history of alcoholism.Patient had a cardiac catheterization done in September 2020 which showed 100% occlusion of the RCA and a stent was placed. 1300: Vital signs stable. Labs within normal limits. CTA of the chest shows no PE or pneumonia. CT of the abdomen shows no obstruction but does show possible esophageal stricture. Patient does state that she has a history of gastric bypass but states that she does not remember the surgeon or the hospital that she had done it as it was over 15 years ago. EMR reviewed. Patient has been seen by [facility] in the past. Patient was seen by Dr. 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 Given the patient's reporting that her symptoms got better with nitroglycerin at home we will give her nitroglycerin to see if her pain improves given her blood pressure is better status post IV fluids. We will plan on admitting the patient to the [facility] hospitalist team. Spoke with Elaina Melchor who states to admit to Dr. Kwong. 1322: Vital signs stable. Patient states her chest pain improved after sublingual nitroglycerin and she is no longer having chest pain. Administered Medications Discontinued Medications Al Hydrox/Mg Hydrox/Simethicone (Gi Cocktail Ed Use) 1 dose PO ONE ONE Stop: 05/01/21 10:49 Last Admin: 05/01/21 11:47 Dose: 1 dose Documented by: [id number] Sodium Chloride (Nss 1000ml) 1,000 mls @ 999 mls/hr IV .Q1H1M ONE Stop: 05/01/21 11:48 Last Infusion: 05/01/21 13:29 Dose: 0 mls/hr Documented by: [id number] Admin: 05/01/21 11:47 Dose: 999 mls/hr Documented by: [id number] Ioversol (Optiray 320 125ml) 120 ml IV ONCE ONE Stop: 05/01/21 12:17 Last Admin: 05/01/21 12:17 Dose: 120 ml Documented by: [id number] Nitroglycerin (Nitroglycerin Sl 0.4 Mg/Tab Tab) 0.4 mg SL NOW STA Stop: 05/01/21 13:02 Last Admin: 05/01/21 13:05 Dose: Not Given Documented by: [id number] Nitroglycerin (Nitroglycerin Sl 0.4 Mg/Tab Tab) Confirm Administered Dose 0.4 mg .ROUTE .STK-MED ONE Stop: 05/01/21 13:03 Last Admin: 05/01/21 13:02 Dose: 0.4 mg Documented by: [id number] Ondansetron HCl (Ondansetron Inj 2 Mg/Ml 2 Ml Vial) 4 mg IV NOW STA Stop: 05/01/21 10:49 Last Admin: 05/01/21 11:47 Dose: 4 mg Documented by: [id number] Medical Decision Making Laboratory Data Result diagrams: 05/01/21 11:13 05/01/21 11:12 Lab Results 05/01/21 05/01/21 05/01/21 Range/Units 10:55 10:55 11:12 WBC (4.8-10.8) K/uL RBC (4.2-5.4) M/uL Hgb (12.0-16.0) g/dL Hct (37-47) % MCV (80-100) fL MCH (25-34) pg MCHC (32-36) g/dL RDW Std Deviation (36.4-46.3) fL RDW Coeff of Taye (11.5-14.5) % Plt Count (130-400) K/uL MPV (7.4-10.4) fL Immature Gran % (Auto) % Neut % (Auto) % Lymph % (Auto) % Hamblen % (Auto) % Eos % (Auto) % Baso % (Auto) % Neut # (Auto) (1.4-6.5) K/uL Lymph # (Auto) (1.2-3.4) K/uL Hamblen # (Auto) (0.11-0.59) K/uL Eos # (Auto) (0-0.5) K/uL Baso # (Auto) (0-0.2) K/uL Immature Gran # (Auto) (0.00-0.02) K/uL PT (9.0-12.0) Seconds INR (0.9-1.1) APTT (21.0-31.0) Seconds PTT Ratio Sodium 139 (136-145) mmol/L Potassium 4.3 (3.5-5.1) mmol/L Chloride 104 (98-107) mmol/L Carbon Dioxide 28 (21-32) mmol/L Anion Gap 7.0 (3-11) BUN 12 (7-18) mg/dl Creatinine 1.06 (0.6-1.2) mg/dl Est Cr Clr Drug Dosing Not Reportable Est GFR ( Amer) 64.3 ml/min Est GFR (Non-Af Amer) 55.4 ml/min BUN/Creatinine Ratio 11.5 (10-20) Glucose 109 H (70-99) mg/dl POC Glucose (70-99) mg/dl Calcium 9.0 (8.5-10.1) mg/dl Magnesium 1.8 (1.8-2.4) mg/dl Total Bilirubin 0.8 (0.2-1) mg/dl Direct Bilirubin 0.3 H (0-0.2) mg/dl AST 20 (15-37) U/L ALT 19 (12-78) U/L Alkaline Phosphatase 95 (45-117) U/L Troponin I < 0.015 (0-0.045) ng/ml Total Protein 6.8 (6.4-8.2) gm/dl Albumin 3.5 (3.4-5.0) gm/dl Lipase 118 (73-393) U/L Ethyl Alcohol mg/dL (0-3) mg/dl COVID-19 Eval Order Covid19 at [facility] SARS-CoV-2 (PCR) NEGATIVE (Negative) 05/01/21 05/01/21 05/01/21 Range/Units 11:12 11:13 11:13 WBC 4.83 (4.8-10.8) K/uL RBC 4.40 (4.2-5.4) M/uL Hgb 13.6 (12.0-16.0) g/dL Hct 40.4 (37-47) % MCV 91.8 (80-100) fL MCH 30.9 (25-34) pg MCHC 33.7 (32-36) g/dL RDW Std Deviation 45.6 (36.4-46.3) fL RDW Coeff of Taye 13.5 (11.5-14.5) % Plt Count 212 (130-400) K/uL MPV 9.1 (7.4-10.4) fL Immature Gran % (Auto) 0.2 % Neut % (Auto) 68.8 % Lymph % (Auto) 23.6 % Hamblen % (Auto) 6.4 % Eos % (Auto) 0.8 % Baso % (Auto) 0.2 % Neut # (Auto) 3.32 (1.4-6.5) K/uL Lymph # (Auto) 1.14 L (1.2-3.4) K/uL Hamblen # (Auto) 0.31 (0.11-0.59) K/uL Eos # (Auto) 0.04 (0-0.5) K/uL Baso # (Auto) 0.01 (0-0.2) K/uL Immature Gran # (Auto) 0.01 (0.00-0.02) K/uL PT 10.1 (9.0-12.0) Seconds INR 1.0 (0.9-1.1) APTT 24.1 (21.0-31.0) Seconds PTT Ratio 0.9 Sodium (136-145) mmol/L Potassium (3.5-5.1) mmol/L Chloride (98-107) mmol/L Carbon Dioxide (21-32) mmol/L Anion Gap (3-11) BUN (7-18) mg/dl Creatinine (0.6-1.2) mg/dl Est Cr Clr Drug Dosing Est GFR ( Amer) ml/min Est GFR (Non-Af Amer) ml/min BUN/Creatinine Ratio (10-20) Glucose (70-99) mg/dl POC Glucose (70-99) mg/dl Calcium (8.5-10.1) mg/dl Magnesium (1.8-2.4) mg/dl Total Bilirubin (0.2-1) mg/dl Direct Bilirubin (0-0.2) mg/dl AST (15-37) U/L ALT (12-78) U/L Alkaline Phosphatase (45-117) U/L Troponin I (0-0.045) ng/ml Total Protein (6.4-8.2) gm/dl Albumin (3.4-5.0) gm/dl Lipase (73-393) U/L Ethyl Alcohol mg/dL < 3.0 (0-3) mg/dl COVID-19 Eval Order SARS-CoV-2 (PCR) (Negative) 05/01/21 Range/Units 11:14 WBC (4.8-10.8) K/uL RBC (4.2-5.4) M/uL Hgb (12.0-16.0) g/dL Hct (37-47) % MCV (80-100) fL MCH (25-34) pg MCHC (32-36) g/dL RDW Std Deviation (36.4-46.3) fL RDW Coeff of Taye (11.5-14.5) % Plt Count (130-400) K/uL MPV (7.4-10.4) fL Immature Gran % (Auto) % Neut % (Auto) % Lymph % (Auto) % Hamblen % (Auto) % Eos % (Auto) % Baso % (Auto) % Neut # (Auto) (1.4-6.5) K/uL Lymph # (Auto) (1.2-3.4) K/uL Hamblen # (Auto) (0.11-0.59) K/uL Eos # (Auto) (0-0.5) K/uL Baso # (Auto) (0-0.2) K/uL Immature Gran # (Auto) (0.00-0.02) K/uL PT (9.0-12.0) Seconds INR (0.9-1.1) APTT (21.0-31.0) Seconds PTT Ratio Sodium (136-145) mmol/L Potassium (3.5-5.1) mmol/L Chloride (98-107) mmol/L Carbon Dioxide (21-32) mmol/L Anion Gap (3-11) BUN (7-18) mg/dl Creatinine (0.6-1.2) mg/dl Est Cr Clr Drug Dosing Est GFR ( Amer) ml/min Est GFR (Non-Af Amer) ml/min BUN/Creatinine Ratio (10-20) Glucose (70-99) mg/dl POC Glucose 111 H (70-99) mg/dl Calcium (8.5-10.1) mg/dl Magnesium (1.8-2.4) mg/dl Total Bilirubin (0.2-1) mg/dl Direct Bilirubin (0-0.2) mg/dl AST (15-37) U/L ALT (12-78) U/L Alkaline Phosphatase (45-117) U/L Troponin I (0-0.045) ng/ml Total Protein (6.4-8.2) gm/dl Albumin (3.4-5.0) gm/dl Lipase (73-393) U/L Ethyl Alcohol mg/dL (0-3) mg/dl COVID-19 Eval Order SARS-CoV-2 (PCR) (Negative) Imaging Data Radiologist's Impression: Abdomen/Pelvis CT 05/01/21 10:48 CT ANGIOGRAM OF THE CHEST; CT SCAN OF THE ABDOMEN AND PELVIS WITH IV CONTRAST CLINICAL HISTORY: Nausea and vomiting. COMPARISON STUDY: Chest x-ray dated 05/01/2021. Chest CT dated 10/01/2020 and 11/17/2019. Abdominal CT dated 11/17/2019. TECHNIQUE: Following the IV administration of 120 of Optiray 320, CT angiogram of the chest is performed from the upper abdomen to the thoracic inlet utilizing the pulmonary embolus protocol. Images are reviewed in the axial, sagittal, coronal planes. 3-D MIPS images are created and assessed. Subsequently, CT scan of the abdomen and pelvis was performed from the lung bases to the proximal femora. Images are reviewed in the axial, sagittal, and coronal planes. IV contrast was administered without complication. A dose lowering technique was utilized adhering to the principles of ALARA. CT DOSE: 717.69 mGy.cm FINDINGS: CHEST: Thyroid: The thyroid gland is heterogeneous. Low-attenuation nodules measure up to 12 mm. These are similar to prior studies. Thoracic aorta: There is mild atherosclerotic calcification of the thoracic aorta, which is normal in caliber and demonstrates standard 3-vessel arch anatomy. No dissection is seen. Pulmonary vasculature: The pulmonary trunk is normal in caliber. There are no filling defects identified in the main, lobar, or segmental pulmonary arteries to indicate pulmonary embolus. Heart: The heart is top normal in size and without pericardial effusion. There are coronary artery calcifications. Lungs and pleural spaces: There is no airspace consolidation or pleural eff usion. The trachea and central airways are clear. Foci of scarring/atelectasis are seen throughout both lungs, greatest at the lung bases. There is a 4 mm right lower lobe pulmonary nodule seen on image #99. A 3 mm pulmonary nodule at the right apex is seen on image #245. An 8 mm pleural-based nodule at the left lung base as seen on image #88 comment a 4 mm right lower lobe nodule is seen on image #125. 3 mm left upper lobe pulmonary nodules are seen on images #169 and #192. Mediastinum: There is no mediastinal lymphadenopathy. Bernie: Clear. Axillae: There is no axillary lymphadenopathy. Bony thorax: The skeletal structures are osteopenic. Degenerative change and hyperkyphosis is noted in the thoracic spine. No lytic or blastic lesions are identified. There are healed right-sided rib fractures. ABDOMEN AND PELVIS: Liver: The contrast-enhanced liver is enlarged, measuring 18.2 cm in length. The liver demonstrates diffusely diminished attenuation indicating mild steatosis. There is no intrahepatic or ductal dilatation. The hepatic veins and portal veins are patent. Gallbladder: Surgically absent. Spleen: Normal in size and attenuation. Pancreas: Unremarkable. Adrenal glands: Unremarkable. Kidneys: The contrast enhanced kidneys demonstrate mild cortical atrophy and are without hydronephrosis. The kidneys enhance symmetrically. Abdominal vasculature: The abdominal aorta is normal in course and caliber noting advanced atherosclerotic calcification. Stomach and bowel: There is a small hiatal hernia. Postoperative change is consistent with a history of [place]-en-Y gastric bypass. Focal narrowing is suggested at the gastrojejunostomy on image #95. The gastric pouch is distended, and fluid fills the distal esophagus to the level of the geovanny. There is mild colonic diverticulosis without CT evidence of acute diverticulitis. The small bowel loops below the gastrojejunostomy and the colon are normal in caliber. Mild focal dilatation of the distal anastomosis is likely related to denervation. Pill fragments are noted in the gastric pouch. A 1.7 cm hyperdense intraluminal structure at the anastomosis is seen on image #178. This may also represent a pill fragment versus bowel contents. The appendix is not identified and reported surgically absent. Peritoneum: There is no intraperitoneal free air or abdominal ascites. Lymphadenopathy: None. Pelvic viscera: The bladder is normal as visualized. The uterus is surgically absent. No adnexal lesion is seen. Skeletal structures: The skeletal structures are osteopenic. There is mild lumbosacral spondylosis. No lytic or blastic lesions are seen. IMPRESSION: 1. There is no evidence of pulmonary embolus in the main, lobar, or segmental pulmonary arteries. 2. There is no airspace consolidation or pleural effusion. 3. Scattered pulmonary and pleural-based nodules measuring up to 8 mm are similar to 10/01/2020 examination. These can be followed as per the Fleischner criteria if clinically warranted. See below. 4. Postoperative change is consistent with a history of [place]-en-Y gastric bypass surgery. 5. Focal narrowing is suggested at/below the gastrojejunostomy, with significant upstream distention of the gastric pouch. There is also distention of the mid to distal esophagus which is filled with fluid to the level of the geovanny. These findings are suspicious for stricture/obstruction at gastrojejunostomy. Follow- up of the patient's bariatric surgeon is recommended. 6. Note that fluid filling the mid to distal esophagus may place the patient at risk for aspiration. 7. The small bowel loops below the gastrojejunostomy are normal in caliber, as is the colon. 8. Hepatomegaly and hepatic steatosis. 9. Colonic diverticulosis without CT evidence of acute diverticulitis. ACT 112: Negative or not required by law. Electronically signed by: Yury Brown M.D. 05/01/2021 12:52 PM Chest X-Ray 05/01/21 10:49 SINGLE VIEW CHEST CLINICAL HISTORY: Nausea and vomiting. FINDINGS: An AP, portable, upright chest radiograph is compared to chest x-ray and chest dated 10/01/2020. The cardiomediastinal silhouette is unremarkable. Chronic interstitial thickening is similar to previous. There is mild bibasilar scarring/atelectasis. No airspace consolidation or large pleural effusion is identified. No pneumothorax is seen. The skeletal structures are osteopenic. There are healed right-sided rib fractures. IMPRESSION: No active disease in the chest. ACT 112: Negative or not required by law. Electronically signed by: Yury Brown M.D. 05/01/2021 11:04 AM Chest CTA 05/01/21 12:12 CT ANGIOGRAM OF THE CHEST; CT SCAN OF THE ABDOMEN AND PELVIS WITH IV CONTRAST CLINICAL HISTORY: Nausea and vomiting. COMPARISON STUDY: Chest x-ray dated 05/01/2021. Chest CT dated 10/01/2020 and 11/17/2019. Abdominal CT dated 11/17/2019. TECHNIQUE: Following the IV administration of 120 of Optiray 320, CT angiogram of the chest is performed from the upper abdomen to the thoracic inlet utilizing the pulmonary embolus protocol. Images are reviewed in the axial, sagittal, coronal planes. 3-D MIPS images are created and assessed. Subsequently, CT scan of the abdomen and pelvis was performed from the lung bases to the proximal femora. Images are reviewed in the axial, sagittal, and coronal planes. IV contrast was administered without complication. A dose lowering technique was utilized adhering to the principles of ALARA. CT DOSE: 717.69 mGy.cm FINDINGS: CHEST: Thyroid: The thyroid gland is heterogeneous. Low-attenuation nodules measure up to 12 mm. These are similar to prior studies. Thoracic aorta: There is mild atherosclerotic calcification of the thoracic aorta, which is normal in caliber and demonstrates standard 3-vessel arch anatomy. No dissection is seen. Pulmonary vasculature: The pulmonary trunk is normal in caliber. There are no filling defects identified in the main, lobar, or segmental pulmonary arteries to indicate pulmonary embolus. Heart: The heart is top normal in size and without pericardial effusion. There are coronary artery calcifications. Lungs and pleural spaces: There is no airspace consolidation or pleural effusion. The trachea and central airways are clear. Foci of scarring/atelectasis are seen throughout both lungs, greatest at the lung bases. There is a 4 mm right lower lobe pulmonary nodule seen on image #99. A 3 mm pulmonary nodule at the right apex is seen on image #245. An 8 mm pleural-based nodule at the left lung base as seen on image #88 comment a 4 mm right lower lobe nodule is seen on image #125. 3 mm left upper lobe pulmonary nodules are seen on images #169 and #192. Mediastinum: There is no mediastinal lymphadenopathy. Bernie: Clear. Axillae: There is no axillary lymphadenopathy. Bony thorax: The skeletal structures are osteopenic. Degenerative change and hyperkyphosis is noted in the thoracic spine. No lytic or blastic lesions are identified. There are healed right-sided rib fractures. ABDOMEN AND PELVIS: Liver: The contrast-enhanced liver is enlarged, measuring 18.2 cm in length. The liver demonstrates diffusely diminished attenuation indicating mild steatosis. There is no intrahepatic or ductal dilatation. The hepatic veins and portal veins are patent. Gallbladder: Surgically absent. Spleen: Normal in size and attenuation. Pancreas: Unremarkable. Adrenal glands: Unremarkable. Kidneys: The contrast enhanced kidneys demonstrate mild cortical atrophy and are without hydronephrosis. The kidneys enhance symmetrically. Abdominal vasculature: The abdominal aorta is normal in course and caliber noting advanced atherosclerotic calcification. Stomach and bowel: There is a small hiatal hernia. Postoperative change is consistent with a history of [place]-en-Y gastric bypass. Focal narrowing is suggested at the gastrojejunostomy on image #95. The gastric pouch is distended, and fluid fills the distal esophagus to the level of the geovanny. There is mild colonic diverticulosis without CT evidence of acute diverticulitis. The small bowel loops below the gastrojejunostomy and the colon are normal in caliber. Mild focal dilatation of the distal anastomosis is likely related to d enervation. Pill fragments are noted in the gastric pouch. A 1.7 cm hyperdense intraluminal structure at the anastomosis is seen on image #178. This may also represent a pill fragment versus bowel contents. The appendix is not identified and reported surgically absent. Peritoneum: There is no intraperitoneal free air or abdominal ascites. Lymphadenopathy: None. Pelvic viscera: The bladder is normal as visualized. The uterus is surgically absent. No adnexal lesion is seen. Skeletal structures: The skeletal structures are osteopenic. There is mild lumbosacral spondylosis. No lytic or blastic lesions are seen. IMPRESSION: 1. There is no evidence of pulmonary embolus in the main, lobar, or segmental pulmonary arteries. 2. There is no airspace consolidation or pleural effusion. 3. Scattered pulmonary and pleural-based nodules measuring up to 8 mm are similar to 10/01/2020 examination. These can be followed as per the Fleischner criteria if clinically warranted. See below. 4. Postoperative change is consistent with a history of [place]-en-Y gastric bypass surgery. 5. Focal narrowing is suggested at/below the gastrojejunostomy, with significant upstream distention of the gastric pouch. There is also distention of the mid to distal esophagus which is filled with fluid to the level of the geovanny. These findings are suspicious for stricture/obstruction at gastrojejunostomy. Follow- up of the patient's bariatric surgeon is recommended. 6. Note that fluid filling the mid to distal esophagus may place the patient at risk for aspiration. 7. The small bowel loops below the gastrojejunostomy are normal in caliber, as is the colon. 8. Hepatomegaly and hepatic steatosis. 9. Colonic diverticulosis without CT evidence of acute diverticulitis. ACT 112: Negative or not required by law. Electronically signed by: Yury Brown M.D. 05/01/2021 12:52 PM ECG Data Indication: + abdominal pain and + chest pain Rate (beats per minute): 77 Rhythm: + normal sinus ECG Intervals/blocks: + Normal QRS, + Normal NE and + Normal QT-c ECG ST segments: + Normal ST segments MDM Narrative 1038: The patient was evaluated in room A9. A complete history and physical exam was performed Cardiac monitoring: An order was placed for continuous cardiac monitoring. The monitor shows a rate of 80 with sinus rhythm Patient hypotensive. Will hold off on nitroglycerin at this time and give IV fluids and try GI cocktail. EMR reviewed.Patient has a history of alcoholism.Patient had a cardiac catheterization done in September 2020 which showed 100% occlusion of the RCA and a stent was placed. 1300: Vital signs stable. Labs within normal limits. CTA of the chest shows no PE or pneumonia. CT of the abdomen shows no obstruction but does show possible esophageal stricture. Patient does state that she has a history of gastric bypass but states that she does not remember the surgeon or the hospital that she had done it as it was over 15 years ago. EMR reviewed. Patient has been seen by [facility] in the past. Patient was seen by Dr. 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 Given the patient's repo rting that her symptoms got better with nitroglycerin at home we will give her nitroglycerin to see if her pain improves given her blood pressure is better status post IV fluids. We will plan on admitting the patient to the [facility] hospitalist team. Spoke with Elaina Melchor who states to admit to Dr. Kwong. 1322: Vital signs stable. Patient states her chest pain improved after sublingual nitroglycerin and she is no longer having chest pain. Impression & Plan Chest pain, Esophageal stricture Discharge Plan Visit Data Chief Complaint: Illness Stated Complaint: VOMITING/LIGHTHEADED/CHEST PAIN ED Provider: Kenan Paul Discharge Problem: Chest pain, Esophageal stricture Patient Disposition: Being Evaluated by Hospitalist Forms Stand Alone Forms: [facility], Virtual Emergency Department, Important Visit Information Prescriptions Prescriptions: No Action metformin 500 mg tablet 500 mg PO BID RF: 0 sucralfate 1 gram tablet 1 g PO ACHS RF: 0 levothyroxine 50 mcg tablet 50 mcg PO QAM RF: 0 esomeprazole magnesium 40 mg capsule,delayed release(DR/EC) 40 mg PO QAM RF: 0 misoprostol 100 mcg tablet 100 mcg PO QID RF: 0 nortriptyline 50 mg capsule 50 mg PO HS RF: 0 Belsomra 5 mg tablet 5 mg PO HS RF: 0 atorvastatin 40 mg Tablet 80 mg PO QAM 30 Days Qty: 60 RF: 3 clopidogrel 75 mg Tablet 75 mg PO QAM 30 Days Qty: 30 RF: 3 aspirin 81 mg Tablet,Delayed Release (Dr/Ec) 81 mg PO QAM 30 Days Qty: 30 RF: 3 metoprolol succinate 25 mg Tablet Extended Release 24 Hr 12.5 mg PO QAM 30 Days Qty: 15 RF: 3 Referrals Referrals: Prateek Tejeda MD [Primary Care Provider] - Discharge Problem: Chest pain Qualifiers: Chest pain type: unspecified Qualified Code(s): R07.9 - Chest pain, unspecified
[2021-05-01] MEDS ORDERED: OPTIRAY 320 125ml IV ONE (12:16)
--- NOTE | 2021-05-01 12:53 | CT Scan Report ---
CT ANGIOGRAM OF THE CHEST; CT SCAN OF THE ABDOMEN AND PELVIS WITH IV CONTRAST CLINICAL HISTORY: Nausea and vomiting. COMPARISON STUDY: Chest x-ray dated 05/01/2021. Chest CT dated 10/01/2020 and 11/17/2019. Abdominal CT dated 11/17/2019. TECHNIQUE: Following the IV administration of 120 of Optiray 320, CT angiogram of the chest is perfor med from the upper abdomen to the thoracic inlet utilizing the pulmonary embolus protocol. Images are reviewed in the axial, sagittal, coronal planes. 3-D MIPS images are created and assessed. Subsequen tly, CT scan of the abdomen and pelvis was performed from the lung bases to the proximal femora. Imag es are reviewed in the axial, sagittal, and coronal planes. IV contrast was administered without comp lication. A dose lowering technique was utilized adhering to the principles of ALARA. CT DOSE: 717.69 mGy.cm FINDINGS: CHEST: Thyroid: The thyroid gland is heterogeneous. Low-attenuation nodules measure up to 12 mm. These are s imilar to prior studies. Thoracic aorta: There is mild atherosclerotic calcification of the thoracic aorta, which is normal in caliber and demonstrates standard 3-vessel arch anatomy. No dissection is seen. Pulmonary vasculature: The pulmonary trunk is normal in caliber. There are no filling defects identif ied in the main, lobar, or segmental pulmonary arteries to indicate pulmonary embolus. Heart: The heart is top normal in size and without pericardial effusion. There are coronary artery ca lcifications. Lungs and pleural spaces: There is no airspace consolidation or pleural effusion. The trachea and pratik tral airways are clear. Foci of scarring/atelectasis are seen throughout both lungs, greatest at the lung bases. There is a 4 mm right lower lobe pulmonary nodule seen on image #99. A 3 mm pulmonary nod ule at the right apex is seen on image #245. An 8 mm pleural-based nodule at the left lung base as se en on image #88 comment a 4 mm right lower lobe nodule is seen on image #125. 3 mm left upper lobe pu lmonary nodules are seen on images #169 and #192. Mediastinum: There is no mediastinal lymphadenopathy. Bernie: Clear. Axillae: There is no axillary lymphadenopathy. Bony thorax: The skeletal structures are osteopenic. Degenerative change and hyperkyphosis is noted i n the thoracic spine. No lytic or blastic lesions are identified. There are healed right-sided rib fr actures. ABDOMEN AND PELVIS: Liver: The contrast-enhanced liver is enlarged, measuring 18.2 cm in length. The liver demonstrates d iffusely diminished attenuation indicating mild steatosis. There is no intrahepatic or ductal dilatat ion. The hepatic veins and portal veins are patent. Gallbladder: Surgically absent. Spleen: Normal in size and attenuation. Pancreas: Unremarkable. Adrenal glands: Unremarkable. Kidneys: The contrast enhanced kidneys demonstrate mild cortical atrophy and are without hydronephros is. The kidneys enhance symmetrically. Abdominal vasculature: The abdominal aorta is normal in course and caliber noting advanced atheroscle rotic calcification. Stomach and bowel: There is a small hiatal hernia. Postoperative change is consistent with a history of [place]-en-Y gastric bypass. Focal narrowing is suggested at the gastrojejunostomy on image #95. The gastric pouch is distended, and fluid fills the distal esophagus to the level of the geovanny. There is mild colonic diverticulosis without CT evidence of acute diverticulitis. The small bowel loops below the gastrojejunostomy and the colon are normal in caliber. Mild focal dilatation of the distal anast omosis is likely related to denervation. Pill fragments are noted in the gastric pouch. A 1.7 cm hype rdense intraluminal structure at the anastomosis is seen on image #178. This may also represent a pil l fragment versus bowel contents. The appendix is not identified and reported surgically absent. Peritoneum: There is no intraperitoneal free air or abdominal ascites. Lymphadenopathy: None. Pelvic viscera: The bladder is normal as visualized. The uterus is surgically absent. No adnexal lesi on is seen. Skeletal structures: The skeletal structures are osteopenic. There is mild lumbosacral spondylosis. N o lytic or blastic lesions are seen. IMPRESSION: 1. There is no evidence of pulmonary embolus in the main, lobar, or segmental pulmonary arteries. 2. There is no airspace consolidation or pleural effusion. 3. Scattered pulmonary and pleural-based nodules measuring up to 8 mm are similar to 10/01/2020 exami nation. These can be followed as per the Fleischner criteria if clinically warranted. See below. 4. Postoperative change is consistent with a history of [place]-en-Y gastric bypass surgery. 5. Focal narrowing is suggested at/below the gastrojejunostomy, with significant upstream distention of the gastric pouch. There is also distention of the mid to distal esophagus which is filled with fl uid to the level of the geovanny. These findings are suspicious for stricture/obstruction at gastrojeju nostomy. Follow-up of the patient's bariatric surgeon is recommended. 6. Note that fluid filling the mid to distal esophagus may place the patient at risk for aspiration. 7. The small bowel loops below the gastrojejunostomy are normal in caliber, as is the colon. 8. Hepatomegaly and hepatic steatosis. 9. Colonic diverticulosis without CT evidence of acute diverticulitis. ACT 112: Negative or not required by law. Electronically signed by: Yury Brown M.D. 05/01/2021 12:52 PM
[2021-05-01] MEDS ORDERED: NITROGLYCERIN SL 0.4 MG/TAB TAB SL STA (13:01)
[2021-05-01] MEDS ORDERED: NITROGLYCERIN SL 0.4 MG/TAB TAB ONE (13:02)
--- NOTE | 2021-05-01 14:11 | History & Physical Report ---
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 Increased frequency of vomiting bilius fluid, history of dilatation to stenosis at GJ anastomosis site Chest CTA with focal narrowing is suggested at gastrojejunostomy with significant upstream distention of the gastric pouch, suspicious for stricture/obstruction at gastrojejunostomy NPO except meds, GI consult, antiemetics Likely need for dilatation of stricture, last done by Dr. Canas in 05/2020 (2) Chest pain: Atypical chest pain in setting of stricture at gastrojejunostomy, also with history of CAD (s/p stent to RCA in 09/2020) Chest pain epigastric, reproducible, relieved with ntg Troponin negative x 2, EKG with normal sinus, T wave flattening in lateral leads. No e/o dissection or PE on chest CTA Trend troponin, monitor on tele, SL ntg, routine cardiology consult in setting of stent in past year. On dual antiplatelet therapy with asa and plavix (3) Hypertension: Continue Toprol with hold parameters (4) Diabetes mellitus type 2, controlled: Hold home agents SSI Q6H while NPO (5) Hyperlipidemia: Continue statin (6) Depressive disorder: (7) Hypothyroidism: Continue levothyroxine (8) History of MRSA infection: Contact precautions DVT Ppx: SQ heparin this evening - then held until evaluated in AM in case of procedure Code status: FULL PCP: Ileana Dispo: Admitted to PCU Patient seen in collaboration with Dr. Mcmahon. Please see addendum. 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 Patient has intermittent episodes of vomiting due to stenosis of gastric pouch requiring GJ anastomosis dilatation, most recently performed by Dr. Canas in 05/2020. This sensation is usually uncomfortably but not painful. Episodes of vomiting have become more frequent over the past 3 days and she can no longer keep food down. Also endorses 1 episode of chest pain last week that lasted a few minutes and was resolved with ntg. Pain has recurred yesterday and today, relieved with ntg both times. Describes pain as an intermittent burning discomfort and irritation in epigastric area that radiates up into chest. Pain is worse with exertion. Also endorsing some radiation to left shoulder similar to pain she experienced in September of 2020, when she had stent to RCA for 100% occlusion. Has rarely needed to use ntg since then except for once six months ago and then yesterday. Pain recurred this morning at home but patient had run out of ntg so came to ED for further evaluation. In ER, received GI cocktail with modest improvement of pain. Received 2 doses of ntg with pain now /10. BP 90s/60s, after receiving ntg en route from EMS. Also given 324mg aspirin. Initial and repeat troponin 4 hours later are negative. Chest CTA with focal narrowing is suggested at gastrojejunostomy with significant upstream distention of the gastric pouch, suspicious for stricture/obstruction at gastrojejunostomy. Denies fever, chills, lightheadedness, headache, palpitations, SOB, abdominal pain, dysuria, diarrhea or constipation. Denies tobacco or alcohol use. Allergies Allergy/AdvReac Type Severity Reaction Status Date / Time Sulfa (Sulfonamide Allergy Severe FACE/THROAT Verified 05/01/21 11:14 Antibiotics) SWELL UP Home Medications Medication Instructions Recorded Confirmed Type esomeprazole magnesium 40 mg PO QAM 10/01/20 05/01/21 History levothyroxine 50 mcg PO QAM 10/01/20 05/01/21 History metformin 500 mg PO BID 10/01/20 05/01/21 History nortriptyline 50 mg PO HS 10/01/20 05/01/21 History sucralfate 1 g PO ACHS 10/01/20 05/01/21 History aspirin 81 mg PO QAM 30 Days #30 tab 10/02/20 05/01/21 Rx atorvastatin 80 mg PO QAM 30 Days #60 tab 10/02/20 05/01/21 Rx clopidogrel 75 mg PO QAM 30 Days #30 tab 10/02/20 05/01/21 Rx metoprolol succinate 12.5 mg PO QAM 30 Days #15 tab 10/02/20 05/01/21 Rx nitroglycerin 0.4 mg SUBLINGUAL UD 05/01/21 05/01/21 History Past Med/Surg History Medical History (Updated 05/01/21 @ 15:41 by Elaina Melchor PA-C) Alcoholic HX (NO PROBLEMS SINCE 2012) Anemia, iron deficiency Anxiety and depression Arthritis Cardiomyopathy Esophagus disorder GERD (gastroesophageal reflux disease) Hx of diabetes mellitus CLEARED AFTER GASTRIC BYPASS PER PATIENT Hx of intestinal obstruction Hx of migraines Hx of sleep apnea Hypotension Hypothyroidism Osteoarthritis Stomach ulcer Tobacco use disorder (11/23/11) Surgical History (Updated 05/01/21 @ 15:15 by Elaina Melchor PA-C) Abscess Hx of I&D of left axilla abscess. MRSA POSITIVE History of appendectomy History of cataract surgery RT/LEFT History of cholecystectomy History of colonoscopy History of esophagogastroduodenoscopy (EGD) History of hysterectomy History of tonsillectomy and adenoidectomy History of tooth extraction History of vascular access device CENTRAL LINE/REMOVED Hx of gastric bypass 20 YEARS AGO Nausea and vomiting after administration of anesthetic agent Status post appendectomy Status post cholecystectomy Status post gastric bypass for obesity Status post hysterectomy Family History (Updated 05/01/21 @ 15:10 by Elaina Melchor PA-C) Mother Family history of diabetes mellitus Father Family history of diabetes mellitus Other Heart disease Social History Smoking Status: Never smoker Second Hand Exposure: No; Hx Alcohol Use: No Hx Substance Use: No Preferred Language: Azeri Communication Ability: Effective [employer] Required: No Beliefs That Will Affect Care: None marital status: Current Living Situation: Alone Current Living Situation Comment: [facility] Feels Safe at Home: Yes Assistive Devices: None Review of Systems Review of Systems: At least ten systems reviewed and negative except as noted in the HPI. Physical Exam Physical Exam: General Appearance: WD/WN, vitals as above, NAD, sitting up in bed, pleasant, conversing easily Head: normocephalic, atraumatic Eyes: normal inspection, PERRL, conjunctivae normal, anicteric sclerae ENT: external ear and nose normal, oropharynx normal Neck: normal visual inspection, trachea midline, no thyromegaly Respiratory: normal respiratory effort, lungs clear to auscultation, no wheeze, rales, rhonchi. No accessory muscle use Cardiovascular: regular rate, rhythm, no murmur, normal peripheral pulses, no BLE edema. Vessels: no JVD Chest: normal inspection of chest. Reproducible pain in lower central chest/ upper epigastrium Abdomen/GI: normal bowel sounds, soft, nontender, no hepatosplenomegaly Extremities/Musculoskeletal: no cyanosis or clubbing, extremities motor strength 5/5 Neurologic: PERRL, EOMI, accommodation nl, no face palsy, no dysarthria, CN's II-XI intact bilaterally and moves all extremities Psychiatric: A+Ox3, euthymic affect Skin: no rashes, normal color, warm/dry Results & Data Results & Data ([facility]) Vital Signs (Past 12 Hours) Vital Signs Temp Pulse Pulse Resp BP BP Pulse Ox 05/01/21 13:00 37.6 C H 65 15 96/54 L 05/01/21 12:34 70 14 136/54 L 99 05/01/21 12:00 73 17 108/62 93 05/01/21 11:08 98 05/01/21 11:00 76 12 135/77 98 05/01/21 10:47 70 20 109/72 98 05/01/21 10:31 36.7 C 90 18 92/69 L 99 Laboratory Results Short CBC 05/01/21 05/01/21 05/01/21 Range/Units 11:12 11:13 14:28 WBC 4.83 (4.8-10.8) K/uL Hgb 13.6 (12.0-16.0) g/dL Hct 40.4 (37-47) % Plt Count 212 (130-400) K/uL Troponin I < 0.015 < 0.015 (0-0.045) ng/ml BMP 05/01/21 11:12 Sodium 139 Potassium 4.3 Chloride 104 Carbon Dioxide 28 BUN 12 Creatinine 1.06 Glucose 109 H Calcium 9.0 Cardiac Enzymes 05/01/21 05/01/21 Range/Units 11:12 14:28 Troponin I < 0.015 < 0.015 (0-0.045) ng/ml Liver Function 05/01/21 Range/Units 11:12 Total Bilirubin 0.8 (0.2-1) mg/dl Direct Bilirubin 0.3 H (0-0.2) mg/dl AST 20 (15-37) U/L ALT 19 (12-78) U/L Alkaline Phosphatase 95 (45-117) U/L Albumin 3.5 (3.4-5.0) gm/dl Diagnostic Findings Abdomen/Pelvis CT 05/01/21 10:48 CT ANGIOGRAM OF THE CHEST; CT SCAN OF THE ABDOMEN AND PELVIS WITH IV CONTRAST CLINICAL HISTORY: Nausea and vomiting. COMPARISON STUDY: Chest x-ray dated 05/01/2021. Chest CT dated 10/01/2020 and 11/17/2019. Abdominal CT dated 11/17/2019. TECHNIQUE: Following the IV administration of 120 of Optiray 320, CT angiogram of the chest is performed from the upper abdomen to the thoracic inlet utilizing the pulmonary embolus protocol. Images are reviewed in the axial, sagittal, coronal planes. 3-D MIPS images are created and assessed. Subsequently, CT scan of the abdomen and pelvis was performed from the lung bases to the proximal femora. Images are reviewed in the axial, sagittal, and coronal planes. IV contrast was administered without complication. A dose lowering technique was utilized adhering to the principles of ALARA. CT DOSE: 717.69 mGy.cm FINDINGS: CHEST: Thyroid: The thyroid gland is heterogeneous. Low-attenuation nodules measure up to 12 mm. These are similar to prior studies. Thoracic aorta: There is mild atherosclerotic calcification of the thoracic aorta, which is normal in caliber and demonstrates standard 3-vessel arch anatomy. No dissection is seen. Pulmonary vasculature: The pulmonary trunk is normal in caliber. There are no filling defects identified in the main, lobar, or segmental pulmonary arteries to indicate pulmonary embolus. Heart: The heart is top normal in size and without pericardial effusion. There are coronary artery calcifications. Lungs and pleural spaces: There is no airspace consolidation or pleural effusion. The trachea and central airways are clear. Foci of scarring/atelectasis are seen throughout both lungs, greatest at the lung bases. There is a 4 mm right lower lobe pulmonary nodule seen on image #99. A 3 mm p ulmonary nodule at the right apex is seen on image #245. An 8 mm pleural-based nodule at the left lung base as seen on image #88 comment a 4 mm right lower lobe nodule is seen on image #125. 3 mm left upper lobe pulmonary nodules are seen on images #169 and #192. Mediastinum: There is no mediastinal lymphadenopathy. Bernie: Clear. Axillae: There is no axillary lymphadenopathy. Bony thorax: The skeletal structures are osteopenic. Degenerative change and hyperkyphosis is noted in the thoracic spine. No lytic or blastic lesions are identified. There are healed right-sided rib fractures. ABDOMEN AND PELVIS: Liver: The contrast-enhanced liver is enlarged, measuring 18.2 cm in length. The liver demonstrates diffusely diminished attenuation indicating mild steatosis. There is no intrahepatic or ductal dilatation. The hepatic veins and portal veins are patent. Gallbladder: Surgically absent. Spleen: Normal in size and attenuation. Pancreas: Unremarkable. Adrenal glands: Unremarkable. Kidneys: The contrast enhanced kidneys demonstrate mild cortical atrophy and are without hydronephrosis. The kidneys enhance symmetrically. Abdominal vasculature: The abdominal aorta is normal in course and caliber noting advanced atherosclerotic calcification. Stomach and bowel: There is a small hiatal hernia. Postoperative change is consistent with a history of [place]-en-Y gastric bypass. Focal narrowing is suggested at the gastrojejunostomy on image #95. The gastric pouch is distended, and fluid fills the distal esophagus to the level of the geovanny. There is mild colonic diverticulosis without CT evidence of acute diverticulitis. The small bowel loops below the gastrojejunostomy and the colon are normal in caliber. Mild focal dilatation of the distal anastomosis is likely related to denervation. Pill fragments are noted in the gastric pouch. A 1.7 cm hyperdense intraluminal structure at the anastomosis is seen on image #178. This may also represent a pill fragment versus bowel contents. The appendix is not identified and reported surgically absent. Peritoneum: There is no intraperitoneal free air or abdominal ascites. Lymphadenopathy: None. Pelvic viscera: The bladder is normal as visualized. The uterus is surgically absent. No adnexal lesion is seen. Skeletal structures: The skeletal structures are osteopenic. There is mild lumbosacral spondylosis. No lytic or blastic lesions are seen. IMPRESSION: 1. There is no evidence of pulmonary embolus in the main, lobar, or segmental pulmonary arteries. 2. There is no airspace consolidation or pleural effusion. 3. Scattered pulmonary and pleural-based nodules measuring up to 8 mm are similar to 10/01/2020 examination. These can be followed as per the Fleischner criteria if clinically warranted. See below. 4. Postoperative change is consistent with a history of [place]-en-Y gastric bypass surgery. 5. Focal narrowing is suggested at/below the gastrojejunostomy, with significant upstream distention of the gastric pouch. There is also distention of the mid to distal esophagus which is filled with fluid to the level of the geovanny. These findings are suspicious for stricture/obstruction at gastrojejunostomy. Follow- up of the patient's bariatric surgeon is recommended. 6. Note that fluid filling the mid to distal esophagus may place the patient at risk for aspiration. 7. The small bowel loops below the gastrojejunostomy are normal in caliber, as is the colon. 8. Hepatomegaly and hepatic steatosis. 9. Colonic diverticulosis without CT evidence of acute diverticulitis. ACT 112: Negative or not required by law. Electronically signed by: Yury Brown M.D. 05/01/2021 12:52 PM Chest X-Ray 05/01/21 10:49 SINGLE VIEW CHEST CLINICAL HISTORY: Nausea and vomiting. FINDINGS: An AP, portable, upright chest radiograph is compared to chest x-ray and chest dated 10/01/2020. The cardiomediastinal silhouette is unremarkable. Chronic interstitial thickening is similar to previous. There is mild bibasilar scarring/atelectasis. No airspace consolidation or large pleural effusion is identified. No pneumothorax is seen. The skeletal structures are osteopenic. There are healed right-sided rib fractures. IMPRESSION: No active disease in the chest. ACT 112: Negative or not required by law. Electronically signed by: Yury Brown M.D. 05/01/2021 11:04 AM Chest CTA 05/01/21 12:12 CT ANGIOGRAM OF THE CHEST; CT SCAN OF THE ABDOMEN AND PELVIS WITH IV CONTRAST CLINICAL HISTORY: Nausea and vomiting. COMPARISON STUDY: Chest x-ray dated 05/01/2021. Chest CT dated 10/01/2020 and 11/17/2019. Abdominal CT dated 11/17/2019. TECHNIQUE: Following the IV administration of 120 of Optiray 320, CT angiogram of the chest is performed from the upper abdomen to the thoracic inlet utilizing the pulmonary embolus protocol. Images are reviewed in the axial, sagittal, coronal planes. 3-D MIPS images are created and assessed. Subsequently, CT scan of the abdomen and pelvis was performed from the lung bases to the proximal femora. Images are reviewed in the axial, sagittal, and coronal planes. IV contr ast was administered without complication. A dose lowering technique was utilized adhering to the principles of ALARA. CT DOSE: 717.69 mGy.cm FINDINGS: CHEST: Thyroid: The thyroid gland is heterogeneous. Low-attenuation nodules measure up to 12 mm. These are similar to prior studies. Thoracic aorta: There is mild atherosclerotic calcification of the thoracic aorta, which is normal in caliber and demonstrates standard 3-vessel arch anatomy. No dissection is seen. Pulmonary vasculature: The pulmonary trunk is normal in caliber. There are no filling defects identified in the main, lobar, or segmental pulmonary arteries to indicate pulmonary embolus. Heart: The heart is top normal in size and without pericardial effusion. There are coronary artery calcifications. Lungs and pleural spaces: There is no airspace consolidation or pleural effusion. The trachea and central airways are clear. Foci of scarring/atelectasis are seen throughout both lungs, greatest at the lung bases. There is a 4 mm right lower lobe pulmonary nodule seen on image #99. A 3 mm pulmonary nodule at the right apex is seen on image #245. An 8 mm pleural-based nodule at the left lung base as seen on image #88 comment a 4 mm right lower lobe nodule is seen on image #125. 3 mm left upper lobe pulmonary nodules are seen on images #169 and #192. Mediastinum: There is no mediastinal lymphadenopathy. Bernie: Clear. Axillae: There is no axillary lymphadenopathy. Bony thorax: The skeletal structures are osteopenic. Degenerative change and hyperkyphosis is noted in the thoracic spine. No lytic or blastic lesions are identified. There are healed right-sided rib fractures. ABDOMEN AND PELVIS: Liver: The contrast-enhanced liver is enlarged, measuring 18.2 cm in length. The liver demonstrates diffusely diminished attenuation indicating mild steatosis. There is no intrahepatic or ductal dilatation. The hepatic veins and portal veins are patent. Gallbladder: Surgically absent. Spleen: Normal in size and attenuation. Pancreas: Unremarkable. Adrenal glands: Unremarkable. Kidneys: The contrast enhanced kidneys demonstrate mild cortical atrophy and are without hydronephrosis. The kidneys enhance symmetrically. Abdominal vasculature: The abdominal aorta is normal in course and caliber noting advanced atherosclerotic calcification. Stomach and bowel: There is a small hiatal hernia. Postoperative change is consistent with a history of [place]-en-Y gastric bypass. Focal narrowing is suggested at the gastrojejunostomy on image #95. The gastric pouch is distended, and fluid fills the distal esophagus to the level of the geovanny. There is mild colonic diverticulosis without CT evidence of acute diverticulitis. The small bowel loops below the gastrojejunostomy and the colon are normal in caliber. Mild focal dilatation of the distal anastomosis is likely related to denervation. Pill fragments are noted in the gastric pouch. A 1.7 cm hyperdense intraluminal structure at the anastomosis is seen on image #178. This may also represent a pill fragment versus bowel contents. The appendix is not identified and reported surgically absent. Peritoneum: There is no intraperitoneal free air or abdominal ascites. Lymphadenopathy: None. Pelvic viscera: The bladder is normal as visualized. The uterus is surgically absent. No adnexal lesion is seen. Skeletal structures: The skeletal structures are osteopenic. There is mild lumbosacral spondylosis. No lytic or blastic lesions are seen. IMPRESSION: 1. There is no evidence of pulmonary embolus in the main, lobar, or segmental pulmonary arteries. 2. There is no airspace consolidation or pleural effusion. 3. Scattered pulmonary and pleural-based nodules measuring up to 8 mm are similar to 10/01/2020 examination. These can be followed as per the Fleischner criteria if clinically warranted. See below. 4. Postoperative change is consistent with a history of [place]-en-Y gastric bypass surgery. 5. Focal narrowing is suggested at/below the gastrojejunostomy, with significant upstream distention of the gastric pouch. There is also distention of the mid to distal esophagus which is filled with fluid to the level of the geovanny. These findings are suspicious for stricture/obstruction at gastrojejunostomy. Follow- up of the patient's bariatric surgeon is recommended. 6. Note that fluid filling the mid to distal esophagus may place the patient at risk for aspiration. 7. The small bowel loops below the gastrojejunostomy are normal in caliber, as is the colon. 8. Hepatomegaly and hepatic steatosis. 9. Colonic diverticulosis without CT evidence of acute diverticulitis. ACT 112: Negative or not required by law. Electronically signed by: Yury Brown M.D. 05/01/2021 12:52 PM ECG Rhythm: normal sinus Additional Comments: non specific T wave abnormality in lateral leads Supervising Physician Co-Signing Physician Notes Attending addendum: The patient was seen and examined in emergency room She has CAD status post RCA stent in September 2020 and also remote history of gastric bypass and requires esophageal dilatation for lower esophageal stricture Has been complaining of nausea abdominal pain since Sunday She feels her pain similar to that of prior to heart attack and is worried about it Complaints of shortness of breath associated with the pain but no sweating and/or palpitation and/or radiation of the pain Has been feeling much better in the emergency room following administration of GI cocktail and nitro On examination No apparent distress at rest Hemodynamically stable Chestclear to auscultate bilaterally HeartS1-S2, regular Extremities-no edema Abdomensoft, tender in the epigastrium, no guarding and rigidity, bowel sounds present CNSalert, awake and oriented x3 Her admission labs, EKG and imaging studies reviewed Has significant lower esophageal stricture with dilatation No significant EKG changes compared with prior with normal troponin Echo has been done and will have serial cardiac enzymes and EKG Patient will be kept n.p.o. after midnight for possible EGD tomorrow morning Cardiology and GI consult Agree with assessment and plan as outlined above by KELLIE Lovell DR (1) Chest pain Chest pain type: unspecified Qualified Code(s): R07.9 - Chest pain, unspecified
[2021-05-01] MEDS ORDERED: POLYETHYLENE (MIRALAX) 17 GM PACK PO PRN (16:03)
[2021-05-01] MEDS ORDERED: NITROGLYCERIN SL 0.4 MG/TAB TAB SL PRN (16:03)
[2021-05-01] MEDS ORDERED: ACETAMINOPHEN 325 MG TAB PO PRN (16:03)
[2021-05-01] MEDS ORDERED: ONDANSETRON INJ 2 MG/ML 2 ML VIAL IV PRN (16:03)
[2021-05-01 16:44] LABS: Appearance Urine Clear (Clear); Bilirubin Urine Negative (Negative); Blood Urine Negative (Negative); Color Urine Yellow; Glucose Urine UA Negative (Negative); Ketones Urine Trace (Negative); Leukocyte Esterase Urine Negative (Negative); Nitrite Urine Negative (Negative); Protein Urine Negative (Negative); Specific Gravity Urine > 1.045 (1.000-1.030); Urobilinogen Urine Negative (Negative); pH Urine 8.5 (4.5-7.5)
[2021-05-01] MEDS: SODIUM CHLORIDE 0.9% 1000ML 1,000 ML IV SCH (17:03)
[2021-05-01] MEDS ORDERED: NORTRIPTYLINE HCL 25 MG CAP PO SCH (21:00)
[2021-05-01] MEDS ORDERED: HEPARIN SOD 5,000 UNIT/0.5 ML VIAL SQ SCH (21:00)
[2021-05-02 03:29] LABS: Hematocrit (blood only) 34.1 % (37-47); Hemoglobin 11.5 g/dL (12.0-16.0); Mean Corpuscular Hemoglobin 30.3 pg (25-34); Mean Corpuscular Hgb Conc 33.7 g/dL (32-36); Mean Corpuscular Volume 89.7 fL (80-100); Platelet Count 182 K/uL (130-400); RDW Coefficient of Variation 13.6 % (11.5-14.5); RDW Standard Deviation 44.7 fL (36.4-46.3)
[2021-05-02 04:11] LABS: Alanine Aminotransferase 16 U/L (12-78); Albumin Globulin Ratio 1.1 (0.9-2); Albumin Level 2.8 gm/dl (3.4-5.0); Alkaline Phosphatase 72 U/L (45-117); Aspartate Aminotransferase 17 U/L (15-37); BUN Creatinine Ratio 13.6 (10-20); Bilirubin,Total 0.5 mg/dl (0.2-1); Blood Urea Nitrogen 11 mg/dl (7-18); Calcium 8.1 mg/dl (8.5-10.1); Carbon Dioxide 27 mmol/L (21-32); Chloride 110 mmol/L (98-107); Creatinine Clr Calc Pharmacy 66.8 ml/min; Est GFR (African American) 90.3 ml/min; Est GFR (Non-African American) 77.9 ml/min; Globulin 2.5 gm/dl (2.5-4.0); Glucose 78 mg/dl (70-99); Potassium 3.6 mmol/L (3.5-5.1); Sodium 141 mmol/L (136-145); Total Protein 5.3 gm/dl (6.4-8.2); Troponin I < 0.015 ng/ml (0-0.045)
[2021-05-02] MEDS: SODIUM CHLORIDE 0.9% 1000ML 1,000 ML IV SCH (04:57)
[2021-05-02] MEDS ORDERED: LEVOTHYROXINE SODIUM 50 MCG TABLET PO SCH (06:30)
[2021-05-02] MEDS ORDERED: METOPROLOL SUCC 25MG EXT REL TAB PO SCH (09:00)
[2021-05-02] MEDS ORDERED: ASPIRIN 81 MG ECTAB PO SCH (09:00)
[2021-05-02] MEDS ORDERED: ATORVASTATIN 40 MG TAB PO SCH (09:00)
[2021-05-02] MEDS ORDERED: PANTOprazole 40 MG TAB PO SCH (09:00)
[2021-05-02] MEDS ORDERED: CLOPIDOGREL BISULFATE 75 MG TAB PO SCH (09:00)
--- NOTE | 2021-05-02 10:03 | Gastrointestinal Consultation ---
Date of Consultation May 02, 2021 Assessment & Plan (1) Chest pain: 65 year old female admitted with CP, epigastric pain, nausea, vomiting, food aversion w/ CT concerning for stricture at gastrojejunostomy - this was last dilated in 2019. DDX discussed, diagnostic EGD, timing TBD Await cardiac clearance in chart Hold Plavix and any anticoagulation Pt note she may want to be discharged for possible add on EGD this week Will discuss with attending and hospitalist Please keep NPO until plan is in place Continue nexium and carafate Supervising Physician Co-Signing Physician Notes I have seen and examined the patient and discussed the management with ERIC Galarza. Admitted thru the ER with nausea, vomiting and chest pain on Sunday. Chest pain has resolved reportedly - seen by cardiology. Prior history of a cardiac stent for which she is on aspirin, plavix- (last dose 05/01/21). She also reports the nausea/vomiting has resolved. She has no reports of dysphagia, sob, belly pain, nausea, vomiting this am PE - she is alert and oriented, tanned appearing, abd - soft nt nd, scattered tatoos on her extremities, no drooling or resp distress noted. Labs reviewed - normal cbc and bmp. CTA done showing ? focal narrowing of GE junction and ? fluid in her esophagus with ? debris in her gastric pouch. She does not appear to have any clinical symptoms that correlate with her CTA findings and she is tolerating po, passing gas and having bm's. She is agreeable today to going home given she is tolerating po, passing gas, having bm's, holding her plavix for a total of 72 hours (today and tomorrow) and returning for an outpt EGD on 05/04/21 for further evaluation of her abnl ct findings. Her last egd was done in 05/[address] Canas with findings of a g- j narrowing that was successfully dilated with a tts balloon dilator to a max dilation size of 18 mm. Given her covid test was negative on admission, she is recommended to do her best to remain at home until her endoscopy in 2 days to prevent the need for repeat covid testing. 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 Notes abd pain, fullness with PO intake followed by severe nausea w/ eventual emesis. Suggests after vomiting the pain is resolved until PO intake again. She denies dysphagia. In ED, repeat troponins are negative, Chest CTA with focal narrowing is suggested at gastrojejunostomy with significant upstream distention of the gastric pouch, suspicious for stricture/obstruction at gastrojejunostomy, reporting cleared by cardiology for any endoscopic procedure that is needed, note pending Pt notes since admission her symptoms are actually improved and resolved ands he is requesting diet today Allergies Allergy/AdvReac Type Severity Reaction Status Date / Time Sulfa (Sulfonamide Allergy Severe FACE/THROAT Verified 05/01/21 11:14 Antibiotics) SWELL UP Home Medications Medication Instructions Recorded Confirmed Type esomeprazole magnesium 40 mg PO QAM 10/01/20 05/01/21 History levothyroxine 50 mcg PO QAM 10/01/20 05/01/21 History metformin 500 mg PO BID 10/01/20 05/01/21 History nortriptyline 50 mg PO HS 10/01/20 05/01/21 History sucralfate 1 g PO ACHS 10/01/20 05/01/21 History aspirin 81 mg PO QAM 30 Days #30 tab 10/02/20 05/01/21 Rx atorvastatin 80 mg PO QAM 30 Days #60 tab 10/02/20 05/01/21 Rx clopidogrel 75 mg PO QAM 30 Days #30 tab 10/02/20 05/01/21 Rx metoprolol succinate 12.5 mg PO QAM 30 Days #15 tab 10/02/20 05/01/21 Rx nitroglycerin 0.4 mg SUBLINGUAL UD 05/01/21 05/01/21 History Patient History Medical History (Updated 05/01/21 @ 15:41 by Elaina Melchor PA-C) Alcoholic HX (NO PROBLEMS SINCE 2012) Anemia, iron deficiency Anxiety and depression Arthritis Cardiomyopathy Esophagus disorder GERD (gastroesophageal reflux disease) Hx of diabetes mellitus CLEARED AFTER GASTRIC BYPASS PER PATIENT Hx of intestinal obstruction Hx of migraines Hx of sleep apnea Hypotension Hypothyroidism Osteoarthritis Stomach ulcer Tobacco use disorder (11/23/11) Surgical History (Updated 05/01/21 @ 15:15 by Elaina Melchor PA-C) Abscess Hx of I&D of left axilla abscess. MRSA POSITIVE History of appendectomy History of cataract surgery RT/LEFT History of cholecystectomy History of colonoscopy History of esophagogastroduodenoscopy (EGD) History of hysterectomy History of tonsillectomy and adenoidectomy History of tooth extraction History of vascular access device CENTRAL LINE/REMOVED Hx of gastric bypass 20 YEARS AGO Nausea and vomiting after administration of anesthetic agent Status post appendectomy Status post cholecystectomy Status post gastric bypass for obesity Status post hysterectomy Family History (Updated 05/01/21 @ 15:10 by Elaina Melchor PA-C) Mother Family history of diabetes mellitus Father Family history of diabetes mellitus Other Heart disease Social History Smoking Status: Former smoker Second Hand Exposure: No; Hx Alcohol Use: No Hx Substance Use: No Preferred Language: Nigerien Communication Ability: Effective Commercial Loan Coordinator Required: No Beliefs That Will Affect Care: None marital status: Current Living Situation: Alone Current Living Situation Comment: [facility] Other Information That Helps Us Care for You: No Feels Safe at Home: Yes Safety Concerns: Feels Safe At This Time Assistive Devices: Denture - Upper, Denture - Lower and Glasses Assistive Devices Comment: only upper dentures present Review of Systems Review of Systems: All systems reviewed & are unremarkable except as noted in HPI & below Physical Exam Constitutional: WD/WN, vitals as above Neck: trachea midline, no thyromegaly Respiratory: normal respiratory effort, lungs clear to auscultation Cardiovascular: RRR, no murmur, no edema Gastrointestinal (Abdomen): normal bowel sounds, soft, nontender, no hepatosplenomegaly Skin: no rashes, warm and dry Results & Data ([facility]) Vital Signs (Past 12 Hours) Vital Signs Temp Pulse Pulse Resp BP Pulse Ox 05/02/21 07:59 64 05/02/21 07:46 36.5 C 55 L 18 135/80 97 05/02/21 07:25 58 L 05/02/21 03:30 36.6 C 56 L 17 112/67 96 05/01/21 23:16 58 L 05/01/21 22:43 36.7 C 55 L 17 109/69 97 Laboratory Results 05/02/21 05/02/21 05/02/21 Range/Units 05:48 02:47 02:47 WBC 3.60 L (4.8-10.8) K/uL RBC 3.80 L (4.2-5.4) M/uL Hgb 11.5 L (12.0-16.0) g/dL Hct 34.1 L (37-47) % MCV 89.7 (80-100) fL MCH 30.3 (25-34) pg MCHC 33.7 (32-36) g/dL RDW Std Deviation 44.7 (36.4-46.3) fL RDW Coeff of Taye 13.6 (11.5-14.5) % Plt Count 182 (130-400) K/uL MPV 9.0 (7.4-10.4) fL Immature Gran % (Auto) % Neut % (Auto) % Lymph % (Auto) % [place] % (Auto) % Eos % (Auto) % Baso % (Auto) % Neut # (Auto) (1.4-6.5) K/uL Lymph # (Auto) (1.2-3.4) K/uL [place] # (Auto) (0.11-0.59) K/uL Eos # (Auto) (0-0.5) K/uL Baso # (Auto) (0-0.2) K/uL Immature Gran # (Auto) (0.00-0.02) K/uL PT (9.0-12.0) Seconds INR (0.9-1.1) APTT (21.0-31.0) Seconds PTT Ratio Sodium 141 (136-145) mmol/L Potassium 3.6 D (3.5-5.1) mmol/L Chloride 110 H (98-107) mmol/L Carbon Dioxide 27 (21-32) mmol/L Anion Gap 4.0 (3-11) BUN 11 (7-18) mg/dl Creatinine 0.80 (0.6-1.2) mg/dl Est Cr Clr Drug Dosing 66.8 Est GFR ( Amer) 90.3 ml/min Est GFR (Non-Af Amer) 77.9 ml/min BUN/Creatinine Ratio 13.6 (10-20) Glucose 78 (70-99) mg/dl POC Glucose 89 (70-99) mg/dl Calcium 8.1 L (8.5-10.1) mg/dl Magnesium (1.8-2.4) mg/dl Total Bilirubin 0.5 (0.2-1) mg/dl Direct Bilirubin (0-0.2) mg/dl AST 17 (15-37) U/L ALT 16 (12-78) U/L Alkaline Phosphatase 72 (45-117) U/L Troponin I < 0.015 (0-0.045) ng/ml Total Protein 5.3 L D (6.4-8.2) gm/dl Albumin 2.8 L (3.4-5.0) gm/dl Globulin 2.5 (2.5-4.0) gm/dl Albumin/Globulin Ratio 1.1 (0.9-2) Lipase (73-393) U/L Urine Color Urine Appearance (Clear) Urine pH (4.5-7.5) Ur Specific [place] (1.000-1.030) Urine Protein (Negative) Urine Glucose (UA) (Negative) Urine Ketones (Negative) Urine Blood (Negative) Urine Nitrite (Negative) Urine Bilirubin (Negative) Urine Urobilinogen (Negative) Ur Leukocyte Esterase (Negative) Ethyl Alcohol mg/dL (0-3) mg/dl COVID-19 Eval Order SARS-CoV-2 (PCR) (Negative) 05/01/21 05/01/21 05/01/21 Range/Units 23:54 20:42 18:08 WBC (4.8-10.8) K/uL RBC (4.2-5.4) M/uL Hgb (12.0-16.0) g/dL Hct (37-47) % MCV (80-100) fL MCH (25-34) pg MCHC (32-36) g/dL RDW Std Deviation (36.4-46.3) fL RDW Coeff of Taye (11.5-14.5) % Plt Count (130-400) K/uL MPV (7.4-10.4) fL Immature Gran % (Auto) % Neut % (Auto) % Lymph % (Auto) % [place] % (Auto) % Eos % (Auto) % Baso % (Auto) % Neut # (Auto) (1.4-6.5) K/uL Lymph # (Auto) (1.2-3.4) K/uL [place] # (Auto) (0.11-0.59) K/uL Eos # (Auto) (0-0.5) K/uL Baso # (Auto) (0-0.2) K/uL Immature Gran # (Auto) (0.00-0.02) K/uL PT (9.0-12.0) Seconds INR (0.9-1.1) APTT (21.0-31.0) Seconds PTT Ratio Sodium (136-145) mmol/L Potassium (3.5-5.1) mmol/L Chloride (98-107) mmol/L Carbon Dioxide (21-32) mmol/L Anion Gap (3-11) BUN (7-18) mg/dl Creatinine (0.6-1.2) mg/dl Est Cr Clr Drug Dosing Est GFR ( Amer) ml/min Est GFR (Non-Af Amer) ml/min BUN/Creatinine Ratio (10-20) Glucose (70-99) mg/dl POC Glucose 87 71 (70-99) mg/dl Calcium (8.5-10.1) mg/dl Magnesium (1.8-2.4) mg/dl Total Bilirubin (0.2-1) mg/dl Direct Bilirubin (0-0.2) mg/dl AST (15-37) U/L ALT (12-78) U/L Alkaline Phosphatase (45-117) U/L Troponin I < 0.015 (0-0.045) ng/ml Total Protein (6.4-8.2) gm/dl Albumin (3.4-5.0) gm/dl Globulin (2.5-4.0) gm/dl Albumin/Globulin Ratio (0.9-2) Lipase (73-393) U/L Urine Color Urine Appearance (Clear) Urine pH (4.5-7.5) Ur Specific [place] (1.000-1.030) Urine Protein (Negative) Urine Glucose (UA) (Negative) Urine Ketones (Negative) Urine Blood (Negative) Urine Nitrite (Negative) Urine Bilirubin (Negative) Urine Urobilinogen (Negative) Ur Leukocyte Esterase (Negative) Ethyl Alcohol mg/dL (0-3) mg/dl COVID-19 Eval Order SARS-CoV-2 (PCR) (Negative) 05/01/21 05/01/21 05/01/21 Range/Units 16:30 14:28 11:14 WBC (4.8-10.8) K/uL RBC (4.2-5.4) M/uL Hgb (12.0-16.0) g/dL Hct (37-47) % MCV (80-100) fL MCH (25-34) pg MCHC (32-36) g/dL RDW Std Deviation (36.4-46.3) fL RDW Coeff of Taye (11.5-14.5) % Plt Count (130-400) K/uL MPV (7.4-10.4) fL Immature Gran % (Auto) % Neut % (Auto) % Lymph % (Auto) % [place] % (Auto) % Eos % (Auto) % Baso % (Auto) % Neut # (Auto) (1.4-6.5) K/uL Lymph # (Auto) (1.2-3.4) K/uL [place] # (Auto) (0.11-0.59) K/uL Eos # (Auto) (0-0.5) K/uL Baso # (Auto) (0-0.2) K/uL Immature Gran # (Auto) (0.00-0.02) K/uL PT (9.0-12.0) Seconds INR (0.9-1.1) APTT (21.0-31.0) Seconds PTT Ratio Sodium (136-145) mmol/L Potassium (3.5-5.1) mmol/L Chloride (98-107) mmol/L Carbon Dioxide (21-32) mmol/L Anion Gap (3-11) BUN (7-18) mg/dl Creatinine (0.6-1.2) mg/dl Est Cr Clr Drug Dosing Est GFR ( Amer) ml/min Est GFR (Non-Af Amer) ml/min BUN/Creatinine Ratio (10-20) Glucose (70-99) mg/dl POC Glucose 111 H (70-99) mg/dl Calcium (8.5-10.1) mg/dl Magnesium (1.8-2.4) mg/dl Total Bilirubin (0.2-1) mg/dl Direct Bilirubin (0-0.2) mg/dl AST (15-37) U/L ALT (12-78) U/L Alkaline Phosphatase (45-117) U/L Troponin I < 0.015 (0-0.045) ng/ml Total Protein (6.4-8.2) gm/dl Albumin (3.4-5.0) gm/dl Globulin (2.5-4.0) gm/dl Albumin/Globulin Ratio (0.9-2) Lipase (73-393) U/L Urine Color Yellow Urine Appearance Clear (Clear) Urine pH 8.5 H (4.5-7.5) Ur Specific [place] > 1.045 H (1.000-1.030) Urine Protein Negative (Negative) Urine Glucose (UA) Negative (Negative) Urine Ketones Trace H (Negative) Urine Blood Negative (Negative) Urine Nitrite Negative (Negative) Urine Bilirubin Negative (Negative) Urine Urobilinogen Negative (Negative) Ur Leukocyte Esterase Negative (Negative) Ethyl Alcohol mg/dL (0-3) mg/dl COVID-19 Eval Order SARS-CoV-2 (PCR) (Negative) 05/01/21 05/01/21 05/01/21 Range/Units 11:13 11:13 11:12 WBC 4.83 (4.8-10.8) K/uL RBC 4.40 (4.2-5.4) M/uL Hgb 13.6 (12.0-16.0) g/dL Hct 40.4 (37-47) % MCV 91.8 (80-100) fL MCH 30.9 (25-34) pg MCHC 33.7 (32-36) g/dL RDW Std Deviation 45.6 (36.4-46.3) fL RDW Coeff of Taye 13.5 (11.5-14.5) % Plt Count 212 (130-400) K/uL MPV 9.1 (7.4-10.4) fL Immature Gran % (Auto) 0.2 % Neut % (Auto) 68.8 % Lymph % (Auto) 23.6 % [place] % (Auto) 6.4 % Eos % (Auto) 0.8 % Baso % (Auto) 0.2 % Neut # (Auto) 3.32 (1.4-6.5) K/uL Lymph # (Auto) 1.14 L (1.2-3.4) K/uL [place] # (Auto) 0.31 (0.11-0.59) K/uL Eos # (Auto) 0.04 (0-0.5) K/uL Baso # (Auto) 0.01 (0-0.2) K/uL Immature Gran # (Auto) 0.01 (0.00-0.02) K/uL PT 10.1 (9.0-12.0) Seconds INR 1.0 (0.9-1.1) APTT 24.1 (21.0-31.0) Seconds PTT Ratio 0.9 Sodium (136-145) mmol/L Potassium (3.5-5.1) mmol/L Chloride (98-107) mmol/L Carbon Dioxide (21-32) mmol/L Anion Gap (3-11) BUN (7-18) mg/dl Creatinine (0.6-1.2) mg/dl Est Cr Clr Drug Dosing Est GFR ( Amer) ml/min Est GFR (Non-Af Amer) ml/min BUN/Creatinine Ratio (10-20) Glucose (70-99) mg/dl POC Glucose (70-99) mg/dl Calcium (8.5-10.1) mg/dl Magnesium (1.8-2.4) mg/dl Total Bilirubin (0.2-1) mg/dl Direct Bilirubin (0-0.2) mg/dl AST (15-37) U/L ALT (12-78) U/L Alkaline Phosphatase (45-117) U/L Troponin I (0-0.045) ng/ml Total Protein (6.4-8.2) gm/dl Albumin (3.4-5.0) gm/dl Globulin (2.5-4.0) gm/dl Albumin/Globulin Ratio (0.9-2) Lipase (73-393) U/L Urine Color Urine Appearance (Clear) Urine pH (4.5-7.5) Ur Specific [place] (1.000-1.030) Urine Protein (Negative) Urine Glucose (UA) (Negative) Urine Ketones (Negative) Urine Blood (Negative) Urine Nitrite (Negative) Urine Bilirubin (Negative) Urine Urobilinogen (Negative) Ur Leukocyte Esterase (Negative) Ethyl Alcohol mg/dL < 3.0 (0-3) mg/dl COVID-19 Eval Order SARS-CoV-2 (PCR) (Negative) 05/01/21 05/01/21 05/01/21 Range/Units 11:12 10:55 10:55 WBC (4.8-10.8) K/uL RBC (4.2-5.4) M/uL Hgb (12.0-16.0) g/dL Hct (37-47) % MCV (80-100) fL MCH (25-34) pg MCHC (32-36) g/dL RDW Std Deviation (36.4-46.3) fL RDW Coeff of Taye (11.5-14.5) % Plt Count (130-400) K/uL MPV (7.4-10.4) fL Immature Gran % (Auto) % Neut % (Auto) % Lymph % (Auto) % [place] % (Auto) % Eos % (Auto) % Baso % (Auto) % Neut # (Auto) (1.4-6.5) K/uL Lymph # (Auto) (1.2-3.4) K/uL [place] # (Auto) (0.11-0.59) K/uL Eos # (Auto) (0-0.5) K/uL Baso # (Auto) (0-0.2) K/uL Immature Gran # (Auto) (0.00-0.02) K/uL PT (9.0-12.0) Seconds INR (0.9-1.1) APTT (21.0-31.0) Seconds PTT Ratio Sodium 139 (136-145) mmol/L Potassium 4.3 (3.5-5.1) mmol/L Chloride 104 (98-107) mmol/L Carbon Dioxide 28 (21-32) mmol/L Anion Gap 7.0 (3-11) BUN 12 (7-18) mg/dl Creatinine 1.06 (0.6-1.2) mg/dl Est Cr Clr Drug Dosing Not Reportable Est GFR ( Amer) 64.3 ml/min Est GFR (Non-Af Amer) 55.4 ml/min BUN/Creatinine Ratio 11.5 (10-20) Glucose 109 H (70-99) mg/dl POC Glucose (70-99) mg/dl Calcium 9.0 (8.5-10.1) mg/dl Magnesium 1.8 (1.8-2.4) mg/dl Total Bilirubin 0.8 (0.2-1) mg/dl Direct Bilirubin 0.3 H (0-0.2) mg/dl AST 20 (15-37) U/L ALT 19 (12-78) U/L Alkaline Phosphatase 95 (45-117) U/L Troponin I < 0.015 (0-0.045) ng/ml Total Protein 6.8 (6.4-8.2) gm/dl Albumin 3.5 (3.4-5.0) gm/dl Globulin (2.5-4.0) gm/dl Albumin/Globulin Ratio (0.9-2) Lipase 118 (73-393) U/L Urine Color Urine Appearance (Clear) Urine pH (4.5-7.5) Ur Specific [place] (1.000-1.030) Urine Protein (Negative) Urine Glucose (UA) (Negative) Urine Ketones (Negative) Urine Blood (Negative) Urine Nitrite (Negative) Urine Bilirubin (Negative) Urine Urobilinogen (Negative) Ur Leukocyte Esterase (Negative) Ethyl Alcohol mg/dL (0-3) mg/dl COVID-19 Eval Order Covid19 at [facility] SARS-CoV-2 (PCR) NEGATIVE (Negative) (1) Chest pain Chest pain type: unspecified Qualified Code(s): R07.9 - Chest pain, unspecified
--- NOTE | 2021-05-02 10:54 | Cardiology Consultation ---
Date of Consultation May 02, 2021 Assessment & Plan (1) Esophageal stricture: (2) CAD (coronary artery disease): (3) Esophagus disorder: (4) Cardiomyopathy: (5) Chest pain: Given the patient's presentation and her clinical workup including negative cardiac enzymes and an unremarkable EKG I do not see any cardiac component to her presenting symptoms. It does appear that she is suffering from complications of her stricture and no further cardiac workup is necessary at this time. She is over 6 months status post PCI and her Plavix may be held at this time for possible GI procedures but recommend restarting once bleeding risk is acceptable afterwards. Aspirin must be continued uninterrupted to prevent stent thrombosis. No further workup necessary from a cardiac standpoint. No need to delay any GI procedures from a cardiac standpoint. Patient is in agreement with this plan. History of Present Illness Reason for Consultation: abdominal/chest pain Requesting Physician: Oj hospitalist Attending Physician: Samreen Mcmahon MD History of Present Illness It was my pleasure to see Ms. Kelley in cardiac consultation today April 24, 2021. She is a very pleasant 65-year-old woman who presents to [facility] on May 01, 2021 with complaints of abdominal pain, nausea, vomiting and abdominal pain radiating into her chest. She does carry a complicated GI history including stenosis of the gastric pouch status post bariatric surgery. This is similar to her previous episodes. States the vomiting has become more frequent over the last 3 days and she was having difficulty keeping food down. During this time of abdominal discomfort, nausea and vomiting she had an episode of chest discomfort that was relieved with 1 sublingual nitroglycerin. Currently she is resting comfortably and denies any recurrences of chest pain nor any dyspnea on exertion, palpitations, lightheadedness, dizziness or syncope. History includes As per most recent outpatient cardiology visit: 1. Atherosclerotic coronary disease with acute non ST segment elevation myocardial infarction 2. Drug-eluting stent insertion mid RCA (Gabriele) October 01, 2020 3. Dyslipidemia 4. Type 2 diabetes mellitus 5. Hypertension 6. 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 in the setting of acute sepsis Allergies Allergy/AdvReac Type Severity Reaction Status Date / Time Sulfa (Sulfonamide Allergy Severe FACE/THROAT Verified 05/01/21 11:14 Antibiotics) SWELL UP Home Medications Medication Instructions Recorded Confirmed Type esomeprazole magnesium 40 mg PO QAM 10/01/20 05/01/21 History levothyroxine 50 mcg PO QAM 10/01/20 05/01/21 History metformin 500 mg PO BID 10/01/20 05/01/21 History nortriptyline 50 mg PO HS 10/01/20 05/01/21 History sucralfate 1 g PO ACHS 10/01/20 05/01/21 History aspirin 81 mg PO QAM 30 Days #30 tab 10/02/20 05/01/21 Rx atorvastatin 80 mg PO QAM 30 Days #60 tab 10/02/20 05/01/21 Rx clopidogrel 75 mg PO QAM 30 Days #30 tab 10/02/20 05/01/21 Rx metoprolol succinate 12.5 mg PO QAM 30 Days #15 tab 10/02/20 05/01/21 Rx nitroglycerin 0.4 mg SUBLINGUAL UD 05/01/21 05/01/21 History Patient History Medical History Alcoholic HX (NO PROBLEMS SINCE 2012) Anemia, iron deficiency Anxiety and depression Arthritis Cardiomyopathy Esophagus disorder GERD (gastroesophageal reflux disease) Hx of diabetes mellitus CLEARED AFTER GASTRIC BYPASS PER PATIENT Hx of intestinal obstruction Hx of migraines Hx of sleep apnea Hypotension Hypothyroidism Osteoarthritis Stomach ulcer Tobacco use disorder (11/23/11) Surgical History Abscess Hx of I&D of left axilla abscess. MRSA POSITIVE History of appendectomy History of cataract surgery RT/LEFT History of cholecystectomy History of colonoscopy History of esophagogastroduodenoscopy (EGD) History of hysterectomy History of tonsillectomy and adenoidectomy History of tooth extraction History of vascular access device CENTRAL LINE/REMOVED Hx of gastric bypass 20 YEARS AGO Nausea and vomiting after administration of anesthetic agent Status post appendectomy Status post cholecystectomy Status post gastric bypass for obesity Status post hysterectomy Family History Mother Family history of diabetes mellitus Father Family history of diabetes mellitus Other Heart disease Social History Smoking Status: Former smoker Second Hand Exposure: No; Hx Alcohol Use: No Hx Substance Use: No Preferred Language: American Communication Ability: Effective Transportation Assistant Required: No Beliefs That Will Affect Care: None marital status: Current Living Situation: Alone Current Living Situation Comment: [facility] Feels Safe at Home: Yes Assistive Devices: Denture - Upper, Denture - Lower and Glasses Review of Systems Review of Systems: All systems reviewed & are unremarkable except as noted in HPI & below Physical Exam Physical Exam: Physical Exam: General: Awake, alert and oriented x 3. No acute distress. HEENT: Normocephalic, atraumatic. Pupils equal, round and reactive to light and accommodation. Extraocular muscles are intact. Anicteric sclera. Moist mucous membranes. Neck: No JVD. No bruit. Cardiovascular: Regular. No S-4. Normal S-1 and S-2. No S-3. No murmurs, rubs or gallops. Pulmonary: Clear to auscultation bilaterally. No rales, rhonchi, or wheezing. Abdomen: Bowel sounds x 4, soft. No rebound, guarding or tenderness. No organomegaly. Extremities: No clubbing, cyanosis or edema. +2 pedal pulses bilaterally. Skin: Warm and dry. Results & Data ([facility]) Vital Signs (Past 12 Hours) Vital Signs Temp Pulse Pulse Resp BP Pulse Ox 05/02/21 07:59 64 05/02/21 07:46 36.5 C 55 L 18 135/80 97 05/02/21 07:25 58 L 05/02/21 03:30 36.6 C 56 L 17 112/67 96 05/01/21 23:16 58 L (1) Chest pain Chest pain type: unspecified Qualified Code(s): R07.9 - Chest pain, unspecified
--- NOTE | 2021-05-02 10:56 | Hospitalist Progress Note ---
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 Increased frequency of vomiting bilius fluid, history of dilatation to stenosis at GJ anastomosis site Chest CTA with focal narrowing is suggested at gastrojejunostomy with significant upstream distention of the gastric pouch, suspicious for stricture/obstruction at gastrojejunostomy NPO except meds, GI consult, antiemetics Likely need for dilatation of stricture, last done by Dr. Canas in 05/2020 Denies any more nausea no vomiting and has been tolerating liquid diet Appreciate GI input and recommendation Will hold aspirin and Plavix and she will have EGD with dilatation of esophageal stricture on Sunday-GI will arrange for that (2) Chest pain: Atypical chest pain in setting of stricture at gastrojejunostomy, also with history of CAD (s/p stent to RCA in 09/2020) Chest pain epigastric, reproducible, relieved with ntg Troponin negative x 2, EKG with normal sinus, T wave flattening in lateral leads. No e/o dissection or PE on chest CTA Trend troponin, monitor on tele, SL ntg, routine cardiology consult in setting of stent in past year. On dual antiplatelet therapy with asa and plavix Appreciate cardiology input and recommendation Her echo, troponins and EKG remain unremarkable-no further cardiac testing and the symptoms are due to esophageal stricture (3) Hypertension: Continue Toprol with hold parameters (4) Diabetes mellitus type 2, controlled: Hold home agents SSI Q6H while NPO (5) Hyperlipidemia: Continue statin (6) Depressive disorder: (7) Hypothyroidism: Continue levothyroxine (8) History of MRSA infection: Contact precautions DVT Ppx: SQ heparin this evening - then held until evaluated in AM in case of procedure Code status: FULL PCP: Ileana Dispo: Admitted to PCU Discharge home this afternoon Admission and Anticipated Discharge Date Admission Date: May 01, 2021 Subjective 05/02/2021 The patient was seen and examined in telemetry unit She denies any more pain in the chest Denies any shortness of breath or palpitation She has been tolerating liquid diet without any problem Review of Systems Review of Systems: All systems reviewed and are unremarkable except as noted below Gastrointestinal: + dysphagia (Has been managing to swallow liquid and semisolid food); no abdominal pain, no nausea and no vomiting Physical Exam Physical Exam: Lying in bed comfortably Constitutional: well developed and well nourished; not ill appearing Eyes: PERRL, conjunctivae normal, anicteric sclerae ENMT: external ear and nose normal, oropharynx normal Neck: trachea midline, no thyromegaly Respiratory: no respiratory distress Auscultation: lungs clear to auscultation bilaterally Cardiovascular: Rate/Rhythm: regular rate and regular rhythm Heart Sounds: no murmur Extremities: no edema Gastrointestinal (Abdomen): Inspection/Auscultation: normal bowel sounds; abdomen not distended Percussion/Palpation: + abdomen tender (Minimally tender in the epigastrium) and abdomen soft Musculoskeletal: No acute arthritis in any joint Neurologic: Alert, awake and oriented x3. No focal sensory and motor deficit appreciated Lymphatic: no cervical or axillary lymphadenopathy Results & Data Results & Data ([place]) Vital Signs (Past 12 Hours) Vital Signs Temp Pulse Pulse Resp BP Pulse Ox 05/02/21 07:59 64 05/02/21 07:46 36.5 C 55 L 18 135/80 97 05/02/21 07:25 58 L 05/02/21 03:30 36.6 C 56 L 17 112/67 96 05/01/21 23:16 58 L Laboratory Results Short CBC 05/01/21 05/02/21 Range/Units 11:13 02:47 WBC 4.83 3.60 L (4.8-10.8) K/uL Hgb 13.6 11.5 L (12.0-16.0) g/dL Hct 40.4 34.1 L (37-47) % Plt Count 212 182 (130-400) K/uL BMP 05/01/21 05/02/21 11:12 02:47 Sodium 139 141 Potassium 4.3 3.6 D Chloride 104 110 H Carbon Dioxide 28 27 BUN 12 11 Creatinine 1.06 0.80 Glucose 109 H 78 Calcium 9.0 8.1 L Cardiac Enzymes 05/01/21 05/01/21 05/01/21 Range/Units 11:12 14:28 20:42 Troponin I < 0.015 < 0.015 < 0.015 (0-0.045) ng/ml 05/02/21 Range/Units 02:47 Troponin I < 0.015 (0-0.045) ng/ml Liver Function 05/01/21 05/02/21 Range/Units 11:12 02:47 Total Bilirubin 0.8 0.5 (0.2-1) mg/dl Direct Bilirubin 0.3 H (0-0.2) mg/dl AST 20 17 (15-37) U/L ALT 19 16 (12-78) U/L Alkaline Phosphatase 95 72 (45-117) U/L Albumin 3.5 2.8 L (3.4-5.0) gm/dl Urine 05/01/21 Range/Units 16:30 Urine Color Yellow Urine Appearance Clear (Clear) Urine pH 8.5 H (4.5-7.5) Ur Specific [place] > 1.045 H (1.000-1.030) Urine Protein Negative (Negative) Urine Glucose (UA) Negative (Negative) Medications Administered Current Inpatient Medications Acetaminophen (Acetaminophen 325 Mg Tab) 650 mg PO Q4H PRN PRN Reason: Pain or Fever Stop: 05/31/21 16:02 Aspirin (Aspirin 81 Mg Ectab) 81 mg PO [facility] Stop: 06/01/21 08:59 Last Admin: 05/02/21 08:00 Dose: 81 mg Documented by: Atorvastatin Calcium (Atorvastatin 40 Mg Tab) 80 mg PO [facility] Stop: 06/01/21 08:59 Last Admin: 05/02/21 08:00 Dose: 80 mg Documented by: Clopidogrel Bisulfate (Clopidogrel Bisulfate 75 Mg Tab) 75 mg PO [facility] Stop: 06/01/21 08:59 Last Admin: 05/02/21 08:00 Dose: 75 mg Documented by: Heparin Sodium (Porcine) (Heparin Sod 5,000 Unit/0.5 Ml Vial) 5,000 units SQ HS [facility] Stop: 05/31/21 20:59 Last Admin: 05/01/21 20:50 Dose: 5,000 units Documented by: Sodium Chloride (Nss 1000ml) 1,000 mls @ 80 mls/hr IV .[id number] [facility] Stop: 05/31/21 16:59 Last Admin: 05/02/21 04:57 Dose: 80 mls/hr Documented by: Levothyroxine Sodium (Levothyroxine Sodium 50 Mcg Tablet) 50 mcg PO DAILYBB [facility] Stop: 06/01/21 06:29 Last Admin: 05/02/21 05:50 Dose: 50 mcg Documented by: Metoprolol Succinate (Metoprolol Succ 25mg Ext Rel Tab) 12.5 mg PO QAM [facility] Stop: 06/01/21 08:59 Last Admin: 05/02/21 08:00 Dose: 12.5 mg Documented by: Nitroglycerin (Nitroglycerin Sl 0.4 Mg/Tab Tab) 0.4 mg SL UD PRN PRN Reason: Chest Pain Stop: 05/31/21 16:02 Nortriptyline HCl (Nortriptyline Hcl 25 Mg Cap) 50 mg PO [facility] Stop: 05/31/21 20:59 Last Admin: 05/01/21 20:49 Dose: 50 mg Documented by: Ondansetron HCl (Ondansetron Inj 2 Mg/Ml 2 Ml Vial) 4 mg IV Q6H PRN PRN Reason: Nausea Stop: 05/31/21 16:02 Pantoprazole Sodium (Pantoprazole 40 Mg Tab) 40 [facility] Stop: 06/01/21 08:59 Last Admin: 05/02/21 08:00 Dose: 40 mg Documented by: Polyethylene Glycol (Polyethylene (Miralax) 17 Gm Pack) 17 gm PO DAILY PRN PRN Reason: Constipation Stop: 05/31/21 16:02 (1) Chest pain Chest pain type: unspecified Qualified Code(s): R07.9 - Chest pain, unspecified
--- NOTE | 2021-05-03 08:09 | Discharge Summary ---
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 Patient has intermittent episodes of vomiting due to stenosis of gastric pouch requiring GJ anastomosis dilatation, most recently performed by Dr. Canas in 05/2020. This sensation is usually uncomfortably but not painful. Episodes of vomiting have become more frequent over the past 3 days and she can no longer keep food down. Also endorses 1 episode of chest pain last week that lasted a few minutes and was resolved with ntg. Pain has recurred yesterday and today, relieved with ntg both times. Describes pain as an intermittent burning discomfort and irritation in epigastric area that radiates up into chest. Pain is worse with exertion. Also endorsing some radiation to left shoulder similar to pain she experienced in September of 2020, when she had stent to RCA for 100% occlusion. Has rarely needed to use ntg since then except for once six months ago and then yesterday. Pain recurred this morning at home but patient had run out of ntg so came to ED for further evaluation. In ER, received GI cocktail with modest improvement of pain. Received 2 doses of ntg with pain now 3/10. BP 90s/60s, after receiving ntg en route from EMS. Also given 324mg aspirin. Initial and repeat troponin 4 hours later are negative. Chest CTA with focal narrowing is suggested at gastrojejunostomy with significant upstream distention of the gastric pouch, suspicious for stricture/obstruction at gastrojejunostomy. Denies fever, chills, lighthea dedness, headache, palpitations, SOB, abdominal pain, dysuria, diarrhea or constipation. Denies tobacco or alcohol use. Admission Exam Per Admitting Provider Physical Exam: General Appearance: WD/WN, vitals as above, NAD, sitting up in bed, pleasant, conversing easily Head: normocephalic, atraumatic Eyes: normal inspection, PERRL, conjunctivae normal, anicteric sclerae ENT: external ear and nose normal, oropharynx normal Neck: normal visual inspection, trachea midline, no thyromegaly Respiratory: normal respiratory effort, lungs clear to auscultation, no wheeze, rales, rhonchi. No accessory muscle use Cardiovascular: regular rate, rhythm, no murmur, normal peripheral pulses, no BLE edema. Vessels: no JVD Chest: normal inspection of chest. Reproducible pain in lower central chest/ upper epigastrium Abdomen/GI: normal bowel sounds, soft, nontender, no hepatosplenomegaly Extremities/Musculoskeletal: no cyanosis or clubbing, extremities motor strength 5/5 Neurologic: PERRL, EOMI, accommodation nl, no face palsy, no dysarthria, CN's II-XI intact bilaterally and moves all extremities Psychiatric: A+Ox3, euthymic affect Skin: no rashes, normal color, warm/dry Principal Diagnosis Esophageal stricture Discharge Exam Constitutional well developed and well nourished; not ill appearing Eyes PERRL, conjunctivae normal, anicteric sclerae ENMT external ear and nose normal, oropharynx normal Neck trachea midline, no thyromegaly Respiratory no respiratory distress Auscultation: lungs clear to auscultation bilaterally Cardiovascular Rate/Rhythm: regular rate and regular rhythm Heart Sounds: no murmur Extremities: no edema Gastrointestinal (Abdomen) Inspection/Auscultation: normal bowel sounds; abdomen not distended Percussion/Palpation: + abdomen tender (Minimally tender in the epigastrium) and abdomen soft Lymphatic no cervical or axillary lymphadenopathy Discharge Data Allergies Allergy/AdvReac Type Severity Reaction Status Date / Time Sulfa (Sulfonamide Allergy Severe FACE/THROAT Verified 05/01/21 11:14 Antibiotics) SWELL UP Consultations 05/01/21 13:08 ED Decision to Admit Stat 05/01/21 16:03 Consult Cardiology Routine Consult Gastroenterology Routine Ordered Studies 05/01/21 10:48 CT abd pelvis IV con only Stat 05/01/21 12:12 CT angio chest PE protocol Stat Hospital Course (1) Esophageal stricture: This is a 65yo F with a PMH of 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 Increased frequency of vomiting bilius fluid, history of dilatation to stenosis at GJ anastomosis site Chest CTA with focal narrowing is suggested at gastrojejunostomy with sig nificant upstream distention of the gastric pouch, suspicious for stricture/obstruction at gastrojejunostomy NPO except meds, GI consult, antiemetics Likely need for dilatation of stricture, last done by Dr. Canas in 05/2020 Denies any more nausea no vomiting and has been tolerating liquid diet Appreciate GI input and recommendation Will hold aspirin and Plavix and she will have EGD with dilatation of esophageal stricture on Sunday-GI will arrange for that (2) Chest pain: Atypical chest pain in setting of stricture at gastrojejunostomy, also with history of CAD (s/p stent to RCA in 09/2020) Chest pain epigastric, reproducible, relieved with ntg Troponin negative x 2, EKG with normal sinus, T wave flattening in lateral leads. No e/o dissection or PE on chest CTA Trend troponin, monitor on tele, SL ntg, routine cardiology consult in setting of stent in past year. On dual antiplatelet therapy with asa and plavix Appreciate cardiology input and recommendation Her echo, troponins and EKG remain unremarkable-no further cardiac testing and the symptoms are due to esophageal stricture (3) Hypertension: Continue Toprol with hold parameters (4) Diabetes mellitus type 2, controlled: Hold home agents SSI Q6H while NPO (5) Hyperlipidemia: Continue statin (6) Depressive disorder: (7) Hypothyroidism: Continue levothyroxine (8) History of MRSA infection: Contact precautions DVT Ppx: SQ heparin this evening - then held until evaluated in AM in case of procedure Code status: FULL PCP: Ileana Dispo: Admitted to PCU Discharge home this afternoon Total Time Total Time Spent Total Time Spent (In Minutes): 35 minutes Total Time Includes: Examination of the Patient, Discharge Planning, Medication Reconciliation and Communication With Other Providers Discharge Plan Discharge Items Patient Disposition: Home - Self-Care Reason For Visit: CHEST PAIN,EPIGASTRIC PAIN Discharge Diagnosis: Esophageal stricture Condition on Discharge: Good Activity: Resume your previous activity Non-emergency contact: Primary Care Provider Call non-emergency contact if: you have any medication questions and your symptoms worsen Follow-up/Referrals: Prateek Tejeda MD [Primary Care Provider] - 05/10/21 2:20 pm (Date & Time 05/10/2021 2:20 PM Provider Jelly Quintanilla Department [facility] ) Diet: Heart Healthy Diet Texture: Mechanical soft (ground) Diet Comment: Liquid or soft diet as tolerated Addtl Attending Provider Instructions: Please take precaution in swallowing Do not take any aspirin and/or Plavix until the gastroenterology service clears to take this again [facility] will call you with an appointment for EGD on Sunday Please keep your appointment with your primary care physician Pending Studies at Discharge: No Stand-Alone Forms: My [facility] [employer], Smoking Cessation Medications and DC Order Prescriptions: Continued metformin 500 mg tablet 500 mg PO BID RF: 0 sucralfate 1 gram tablet 1 g PO ACHS RF: 0 levothyroxine 50 mcg tablet 50 mcg PO QAM RF: 0 esomeprazole magnesium 40 mg capsule,delayed release(DR/EC) 40 mg PO QAM RF: 0 nortriptyline 50 mg capsule 50 mg PO HS RF: 0 atorvastatin 40 mg Tablet 80 mg PO QAM 30 Days Qty: 60 RF: 3 clopidogrel 75 mg Tablet 75 mg PO QAM 30 Days Qty: 30 RF: 3 aspirin 81 mg Tablet,Delayed Release (Dr/Ec) 81 mg PO QAM 30 Days Qty: 30 RF: 3 metoprolol succinate 25 mg Tablet Extended Release 24 Hr 12.5 mg PO QAM 30 Days Qty: 15 RF: 3 nitroglycerin 0.4 mg Tablet, Sublingual 0.4 mg sublingual UD RF: 0 Discharge Orders: Discharge Order (Routine); Ordered 05/02/21 Ordered By: Samreen Mcmahon Admission Data Admit Date/Time: 05/01/21 14:50 Attending Provider: Samreen Mcmahon Admit Provider: aSmreen Mcmahon Primary Care Provider: Prateek Tejeda Other Providers: Keegan Kwong ; Barry Summers ; Bhavesh Nguyễn Other Interventions: Discharge Summary Assessment (RN) Last Done: 05/02/21 12:43
--- NOTE | 2021-05-03 11:06 | Electrocardiogram Report ---
Test Reason : Blood Pressure : / mmHG Vent. Rate : 077 BPM Atrial Rate : 077 BPM P-R Int : 134 ms QRS Dur : 088 ms QT Int : 418 ms P-R-T Axes : 031 -61 -11 degrees QTc Int : 473 ms Normal sinus rhythm Left anterior fascicular block Nonspecific T wave abnormality Abnormal ECG When compared with ECG of 01-OCT-2020 22:14, Nonspecific T wave abnormality now evident in Lateral leads Confirmed by Ferny Law ([id number]) on 05/03/2021 11:06:00 AM Referred By: REFERRED SELF Confirmed By:Ferny Law
--- NOTE | 2021-05-03 11:22 | Electrocardiogram Report ---
Test Reason : Blood Pressure : / mmHG Vent. Rate : 057 BPM Atrial Rate : 057 BPM P-R Int : 160 ms QRS Dur : 100 ms QT Int : 476 ms P-R-T Axes : 031 -49 -10 degrees QTc Int : 463 ms Sinus bradycardia Left axis deviation Abnormal ECG When compared with ECG of 01-MAY-2021 10:43, (unconfirmed) Nonspecific T wave abnormality no longer evident in Lateral leads Confirmed by Ferny Law ([id number]) on 05/03/2021 11:21:31 AM Referred By: REFERRED SELF Confirmed By:Ferny Law
== END 2021-05-02 14:00 | disposition home or self-care (01) | DRG 394 ==
LOC: ED 10:21 → 2S 14:50

== ENCOUNTER 2023-01-23 13:33 | Inpatient (IN) ==
[2023-01-23] MEDS ORDERED: ONDANSETRON INJ 2 MG/ML 2 ML VIAL IV STA (13:53)
[2023-01-23] MEDS ORDERED: SODIUM CHLORIDE 0.9% 1000ML 500 ML IV ONE (13:53)
[2023-01-23] MEDS ORDERED: SODIUM CHLORIDE 0.9% 1000ML 1,000 ML IV SCH (14:00)
[2023-01-23 14:08] LABS: Hematocrit (blood only) 38.8 % (37.0-47.0); Hemoglobin 12.4 g/dl (12.0-16.0); Mean Corpuscular Hemoglobin 26.6 pg (25.0-34.0); Mean Corpuscular Volume 83.3 fL (80.0-100.0); Mean Platelet Volume 9.3 fL (9.4-12.4); Platelet Count 245 K/uL (130-400); Red Blood Count 4.66 M/uL (4.20-5.40); White Blood Count 12.56 K/ul (4.8-10.8)
[2023-01-23] MEDS ORDERED: DOXYCYCLINE HYCLATE 100 MG in DEXTROSE 5% 100 ML IV STA (14:20)
[2023-01-23] MEDS ORDERED: cefTRIAXone SODIUM 2,000 MG/70 ML BAG IV STA (14:20)
[2023-01-23] MEDS ORDERED: HYDROmorphone INJ 0.5 MG/0.5 ML SYR IV STA (14:20)
--- NOTE | 2023-01-23 14:21 | XRay Report ---
XR chest 1V portable HISTORY: 67 years-old Female weakness acute weakness COMPARISON: Chest CT 08/16/2022 TECHNIQUE: AP view of the chest FINDINGS: Limited exam secondary to patient rotation. The heart is upper limits of normal in size. No pneumotho rax. Probable trace left pleural effusion. Multifocal dense airspace opacities are noted within the l eft midlung and left lung base. Degenerative changes of the shoulders and spine. IMPRESSION: 1. Limited exam secondary to positioning. 2. Left midlung and left basilar airspace opacities are suggestive of multifocal pneumonia. Follow-up imaging after treatment course is needed to document resolution ACT 112: Negative or not required by law. The above report was generated using voice recognition software. It may contain grammatical, syntax o r spelling errors. Electronically signed by: Mark Nina M.D. 01/23/2023 2:20 PM
[2023-01-23 14:26] LABS: Albumin Globulin Ratio 1.6 (0.9-2); Albumin Level 4.1 gm/dl (3.4-5.0); BUN Creatinine Ratio 16.3 (10-20); Bilirubin,Total 0.9 mg/dl (0.2-1.0); Calcium 9.8 mg/dl (8.5-10.1); Creatinine Clr Calc Pharmacy 28.6 ml/min; Est GFR (African American) 38.5 ml/min; Est GFR (Non-African American) 33.2 ml/min; Globulin 2.5 gm/dl (2.5-4.0); Magnesium 1.8 mg/dl (1.7-2.4); Potassium 3.7 mmol/L (3.5-5.1); Total Protein 6.6 gm/dl (6.0-8.3)
[2023-01-23 14:31] LABS: Basophils # (auto) 0.02 K/uL (0-0.2); Basophils % (auto) 0.2 %; Echinocytes 3+; Immature Granulocytes # (auto) 0.03 K/uL (0.01-0.20); Immature Granulocytes % (auto) 0.2 %; Lymphocytes # (auto) 0.29 K/uL (1.2-3.4); Lymphocytes % (auto) 2.3 %; Monocytes % (auto) 3.2 %; Neutrophils # (auto) 11.82 K/uL (1.40-6.50); Neutrophils % (auto) 94.1 %; Polychromasia 1+
[2023-01-23 14:32] LABS: Troponin I High Sensitivity 6.6 pg/ml (0-14)
--- NOTE | 2023-01-23 15:40 | CT Scan Report ---
CT SCAN OF THE CHEST WITHOUT IV CONTRAST CLINICAL HISTORY: Atypical chest pain. Airspace consolidation seen by chest x-ray. COMPARISON STUDY: Chest CT dated 08/16/2022 and chest x-ray dated 01/23/2023. TECHNIQUE: CT scan of the thorax was performed from the thoracic inlet to the upper abdomen. Images are reviewed in the axial, sagittal, and coronal planes. IV contrast was not administered for this ex amination as per the referring clinician. A dose lowering technique was utilized adhering to the kasandra [place]. The examination is degraded by motion artifact, as well as by streak artifact from the left arm which cannot be elevated above the chest. CT DOSE: 259.33 mGycm FINDINGS: Thyroid: Atrophic and heterogeneous. Thoracic aorta: There is moderate atherosclerotic calcification of the thoracic aorta, which is kanwal l in caliber and demonstrates standard 3-vessel arch anatomy. Heart: The heart is normal in size and without pericardial effusion. The coronary arteries are densel y calcified. Lungs and pleural spaces: The trachea and central airways appear clear. No pleural effusion is identi fied. Multifocal airspace consolidation is seen throughout the left lung, most confluent in the left lower lobe. Minimal patchy airspace consolidation is seen in the right upper lobe. Scarring/atelectas is is seen at the right lung base. A 4 mm right lower lobe pulmonary nodule is seen on image #[id number]. Mediastinum: There is no mediastinal lymphadenopathy. Bernie: Not well assessed without IV contrast. Axillae: There is no axillary lymphadenopathy. Upper abdomen: Postsurgical change is noted in the partially visualized stomach. The esophagus is dis tended and patulous, and filled with food/debris to the level of the thoracic inlet. Skeletal structures: The skeletal structures are osteopenic. Degenerative change and kyphoscoliosis i s noted in the thoracic spine. No lytic or blastic bony lesions are seen. There is chronic appearing deformity of the distal left clavicle. There are also numerous chronic appearing/healed bilateral rib fractures. IMPRESSION: 1. Extensive airspace consolidation throughout the left lung as well as minimal patchy consolidation in the right upper lobe is typical for multifocal pneumonia. Clinical correlation will be required an d radiographic follow-up to resolution is recommended. 2. Postsurgical change is noted in the partially visualized stomach. The esophagus is distended/patul ous and filled with fluid/debris to the level of the thoracic inlet. This places the patient at signi ficant risk for aspiration, and this is likely the etiology of the pneumonia. 3. There is a 4 mm pulmonary nodule at the right lung base. This is pathologically indeterminate and should be followed as per the Fleischner criteria. 4. Advanced coronary artery calcification. 5. Additional findings as above. Please refer to below summary of Fleischner criteria recommendations for follow-up of incidental CT n odules (Rachelle Hussein, Guidelines for management of small pulmonary nodules detected on CT scans: A sta tement from the Fleischner Society, Radiology 237: [phone].) SOLID NODULES Solitary nodule size: <6 mm * low risk patients: no follow-up needed * high risk patients: optional CT at 12 months Solitary nodule size: 6-8 mm * low risk patients: follow-up at 6-12 months, then consider further follow-up at 18-24 months * high risk patients: initial follow-up CT at 6-12 months and then at 18-24 months if no change Solitary nodule size: >8 mm * either low or high risk patients - consider follow-up CT at 3 months, and/or CT-PET, and/or biopsy Multiple nodules size: <6 mm * low risk patients: no routine follow-up * high risk patients: optional CT at 12 months Multiple nodules size: 6-8 mm * low risk patients: follow-up at 3-6 months, then consider further follow-up at 18-24 months * high risk patients: follow-up at 3-6 months, then at 18-24 months if no change Multiple nodules size: >8 mm * low risk patients: follow-up at 3-6 months, then consider further follow-up at 18-24 months * high risk patients: follow-up at 3-6 months, then at 18-24 months if no change Note: newly detected indeterminate nodule in persons 35 years of age or older. * low risk patients: minimal or absent history of smoking and/or other known risk factors * high risk patients: history of smoking or of other known risk factors (e.g. first degree relative with lung cancer, or exposure to asbestos, radon, uranium) * if a nodule up to 8 mm is partly solid or is ground glass further follow-up is required after 24 m onths to exclude possible slow growing adenocarcinoma ([facility]OLY) SUBSOLID NODULES Solitary pure ground-glass nodule * nodule size <6 mm - no CT follow-up required * nodule size >=6 mm - follow-up CT at 6-12 months, then every 2 years until 5 years Solitary part-solid nodule * nodule size <6 mm - no CT follow-up required * nodule size >=6 mm - follow-up CT at 3-6 months. If unchanged, and solid component remains <6 mm, then annual follow-up for 5 years Multiple subsolid nodules * nodule size <6 mm - follow-up CT at 3-6 months, consider further follow-up at 2 and 4 years if sta ble * nodule size >=6 mm - follow-up CT at 3-6 months, subsequent management based on the most suspiciou s nodule(s) ACT 112: Negative or not required by law. Electronically signed by: Yury Brown M.D. 01/23/2023 3:37 PM
--- NOTE | 2023-01-23 16:54 | History & Physical Report ---
Date of Service January 23, 2023 Assessment & Plan (1) Multifocal pneumonia: Plan: - Admit to med surg with tele - Sputum culture, mucinex, albuterol inhaler - Wean L O2 prn, currently does not require at baseline - Influenza swab neg, MRSA swab neg - WBC at time of admission = 13 K, procal is significantly elevated at 5.50 , Lactic acid = 1.6 - BCx x 2, follow - Afebrile - Started on ceftriaxone, doxy and flagyl in the ER for concern for possible aspiration pneumonia with esophageal issues. We will continue the patient on Unasyn, 3 g every 12 and the anticipation that her renal function improves tomorrow. 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 Denies ilicit drug use. (3) Esophagus disorder: (4) Anastomotic stenosis of gastrojejunostomy: Plan: - Consult GI - Dr. Hairston for assistance with possible needs for dilation of the anastomotic stenosis of GJ in the setting of gastric bypass surgery - Maintain n.p.o. status, Hold all meds, pt has not been able to tolerate since Sunday - Normally does take thiamine, B12, Mutivitamin with iron, Vit C (5) CAD (coronary artery disease): Plan: -On baby aspirin and Plavix at baseline, resume once able to take p.o. (6) Hypertension: Plan: - BP is 120/68 currently - Stable (7) Hyperlipidemia: Plan: - resume statin once can tolerate po meds (8) Diabetes mellitus type 2, controlled: Plan: - Check A1C with am labs - Fluids as above (9) Acute kidney injury superimposed on CKD: Plan: - Cr. 1.60 , BUN 26 - Fluids as above DVT ppx: teds, scds CODE: Conditional, agreeable to intubation Dispo: From home, likely to remain in the History of Present Illness Chief Complaint: Shortness of breath/ pain with inspiration Primary Care Provider: Gretta Mathur MD This is a 67-year-old female with PMHx of history of esophageal narrowing, anastomotic stenosis of gastrojejunostomy, status post gastric bypass surgery, DM type II, CAD, history of alcohol use in remission, CKD stage III, anemia and history of tobacco abuse who presents to the ER with worsening shortness of breath and pain with inspiration. Patient is found on CT of the chest to have multifocal pneumonia in the left side and right upper lobe, 4 mm pulmonary nodule is seen. She has a procalcitonin of 5.50, WBC 12.56, afebrile, O2 sats are 94% on 2 L. Pt states her vomiting started last Sunday. She states that every time she takes anything orally, she throws it back up. She uses peptobismol because this helps her throw up which she thought she would give her some relief, and doesn't think there is anything left in her esophagus or stomach at this point. Pt hasn't taken her routine meds since Sunday. She has complaints of central chest pain which started last night, she was able to go to bed last night but was restless and continued to have this deep chest pain into this morning, which is worsened with deep inspiration. Nitro tab x 1 was taken around lunch time and didn't help anything. Pt thinks this is all from her stomach. She reports having having chills, but denies fever. At home she does not require supplemental O2, currently is on 2 L. She felt incredible weakness when she was attempted to walk to her bathroom, as well as lightheaded or dizziness. She has hx of falling in the past, but denies any since worsening illness this past Sunday. Her left wrist is fractured and has a left rotator cuff tear, and anticipates having this surgery later in the month. Pt trialed ibuprofen for generalized body aches without alleviation. Today she called 911 herself today because her symptoms were so bad and was scared. Her sister in law lives locally and would be her point of contact. Esophagus dilation has been done at least 10 times, has been done by Dr. Allen most recently last done per our record in Sep 2021. She has had it done as an outpatient more recently at [facility]. Allergies Allergy/AdvReac Type Severity Reaction Status Date / Time Sulfa (Sulfonamide Allergy Severe AIRWAY Verified 08/22/22 13:08 Antibiotics) SWELLING Home Medications Medication Instructions Recorded Confirmed Type metformin 500 mg tablet 500 mg PO HS 10/01/20 01/23/23 History nortriptyline 50 mg capsule 50 mg PO HS 10/01/20 01/23/23 History sucralfate 1 gram tablet 1 g PO ACHS 10/01/20 01/23/23 History aspirin 81 mg tablet,delayed 81 mg PO QAM 30 days #30 tabs 10/02/20 01/23/23 Rx release clopidogrel 75 mg tablet 75 mg PO QAM 30 days #30 tabs 10/02/20 01/23/23 Rx nitroglycerin 0.4 mg sublingual 0.4 mg sublingual DIRECTED PRN 05/01/21 01/23/23 History tablet Chest Pain esomeprazole magnesium 40 mg 40 mg PO BID #60 caps 05/04/21 01/23/23 Rx capsule,delayed release (Nexium) albuterol sulfate 90 mcg/actuation 1 inh inhalation Q4H PRN SHORT OF 09/21/21 01/23/23 History aerosol inhaler BREATH albuterol sulfate 5 mg/mL(0.5 %) 2.5 mg inhalation DIRECTED PRN 08/16/22 01/23/23 History solution for nebulization Shortness Of Breath Or Wheezing ondansetron HCl 4 mg tablet 4 mg PO Q8H PRN NAUSEA/VOMITING 08/16/22 01/23/23 H istory ascorbic acid (vitamin C) 100 mg 100 mg PO DAILY 01/23/23 01/23/23 History tablet (Vitamin C) atorvastatin 80 mg tablet 80 mg PO DAILY 01/23/23 01/23/23 History cyanocobalamin (vitamin B-12) 1,000 mcg Q3M 01/23/23 01/23/23 History 1,000 mcg/mL injection syringe levothyroxine 75 mcg tablet 75 mcg PO DAILY 01/23/23 01/23/23 History thiamine HCl (vitamin B1) 100 mg 100 mg PO DAILY 01/23/23 01/23/23 History tablet Past Med/Surg History Medical History (Updated 01/23/23 @ 19:35 by Kamaljit Bonner MD) Alcoholic HX (NO PROBLEMS SINCE 2012) 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 Anemia, iron deficiency Anxiety and depression Arthritis Cardiomyopathy Esophagus disorder GERD (gastroesophageal reflux disease) History of esophageal dilatation (05/04/21) dilation of the stenosis of G-Jejunostomy History of stomach ulcers Hx of intestinal obstruction Hx of migraines Hx of myocardial infarction 09/2020 Hx of sleep apnea HOME SLEEP STUDY NORMAL>RECENT Hyperlipidemia Hypothyroidism Osteoarthritis Prediabetes Surgical History Abscess 2019 Hx of I&D of left axilla abscess. MRSA POSITIVE Family history of reaction to anesthesia SISTER>SWELLING ALL OVER ? DETAILS History of appendectomy History of cataract surgery RT/LEFT History of cholecystectomy History of colonoscopy History of esophagogastroduodenoscopy (EGD) History of heart artery stent 1 STENT PLACED 09/2020 History of hysterectomy History of tonsillectomy and adenoidectomy History of tooth extraction History of vascular access device CENTRAL LINE/REMOVED Hx of gastric bypass 20 YEARS AGO Nausea and vomiting after administration of anesthetic agent Family History (Updated 08/22/22 @ 13:41 by Deyanira Pandya RN) Mother Family history of diabetes mellitus Diabetes Heart disease Son Family history of diabetes mellitus Diabetes Stroke Brother Family history of diabetes mellitus Diabetes Heart disease Aunt Breast cancer Uncle Colorectal cancer Social History (Updated 08/22/22 @ 13:42 by Deyanira Pandya RN) Smoking Status: Former smoker Tobacco Type: Cigarettes packs per day: 1; Second Hand Exposure: Yes (IN THE PAST); Hx Alcohol Use: No (QUIT 2012) Preferred Language: Maltese Communication Ability: Effective Visual Impairment: No Limitations Fisher Spear Required: No Beliefs That Will Affect Care: None marital status: Current Living Situation: Alone current occupational status: disabled How many Children do You have: 2 Feels Safe at Home: Yes during the past year weight has: remained stable Assistive Devices: Denture - Upper, Denture - Lower and Glasses Review of Systems Review of Systems: Constitutional: No fever, sweats, but +chills, + lightheadedness and dizziness Eyes: No diplopia, no worsening or blurred vision ENT: normal hearing, no trouble swallowing Respiratory: + shortness of breath as per HPI, +cough, minimal sputum, +dyspnea at rest and on exertion Cardiovascular: As per HPI Abdomen: As per HPI, + nausea/vomiting, no diarrhea or constipation, last BM was today Musculoskeletal: No joint pain, calf pain, swelling Neurologic: No weakness, numbness/tingling, or balance problems Psychiatric: No anxiety or depression Skin: No rash or itch Physical Exam Physical Exam: General: awake, alert, no apparent distress, appears chronically ill, thin Head: Normocephalic, atraumatic ENT: PERRL, EOMI, no pharyngeal exudate, mucous membranes dry Chest: Coarse breath sounds worse on the left anterior manzano, pain with deep inspiration, O2 sats 94% on 2 L, no adventitious breath sounds Cardiac: Sinus tach,no murmur, no JVD, normal peripheral pulses, good capillary refill Abdominal: NABS x 4 quadrants, soft, nondistended, nontender to palpation, no rebound or guarding Extremities: Normal inspection, no peripheral edema or erythema, calfs nontender to palpation Psych: Normal mood and affect Neuro: AAO x 3, strength intact bilaterally and rated 5/5, no motor deficits, speech is clear, no peripheral sensory deficits Results & Data Results & Data Vital Signs (Past 12 Hours) Vital Signs Temp Pulse Pulse Resp BP Pulse Ox O2 Del Method 01/23/23 16:00 94 H 23 94 Nasal Cannula 01/23/23 14:13 94 H 01/23/23 13:53 96 Room Air 01/23/23 13:43 37.2 C 98 H 22 120/68 96 Room Air O2 Flow Rate 01/23/23 16:00 2 01/23/23 14:13 01/23/23 13:53 01/23/23 13:43 Laboratory Results 01/23/23 14:35 Aerobic Blood Culture - Pending Blood Anaerobic Blood Culture - Pending 01/23/23 14:35 Aerobic Blood Culture - Pending Blood Anaerobic Blood Culture - Pending 01/23/23 01/23/23 01/23/23 14:35 14:35 14:03 WBC RBC Hgb Hct MCV MCH MCHC Plt Count MPV Immature Gran % (Auto) Neut % (Auto) Lymph % (Auto) [place] % (Auto) Eos % (Auto) Baso % (Auto) Neut # (Auto) Lymph # (Auto) [place] # (Auto) Eos # (Auto) Baso # (Auto) Immature Gran # (Auto) Polychromasia Echinocytes Sodium Potassium Chloride Carbon Dioxide Anion Gap BUN Creatinine Est Cr Clr Drug Dosing Est GFR ( Amer) Est GFR (Non-Af Amer) BUN/Creatinine Ratio Glucose Lactate 1.6 Calcium Magnesium Total Bilirubin AST ALT Alkaline Phosphatase Troponin I High Sens Total Protein Albumin Globulin Albumin/Globulin Ratio Lipase Procalcitonin 5.50 H TSH SARS-CoV-2, RNA, NAAT NEGATIVE 01/23/23 01/23/23 01/23/23 13:45 13:45 13:45 WBC 12.56 H RBC 4.66 Hgb 12.4 Hct 38.8 MCV 83.3 MCH 26.6 MCHC 32.0 Plt Count 245 MPV 9.3 L Immature Gran % (Auto) 0.2 Neut % (Auto) 94.1 Lymph % (Auto) 2.3 [place] % (Auto) 3.2 Eos % (Auto) 0.0 Baso % (Auto) 0.2 Neut # (Auto) 11.82 H Lymph # (Auto) 0.29 L [place] # (Auto) 0.40 Eos # (Auto) 0.00 Baso # (Auto) 0.02 Immature Gran # (Auto) 0.03 Polychromasia 1+ Echinocytes 3+ Sodium 144 Potassium 3.7 Chloride 103 Carbon Dioxide 20 L Anion Gap 21 H BUN 26 H Creatinine 1.60 H Est Cr Clr Drug Dosing 28.6 Est GFR ( Amer) 38.5 Est GFR (Non-Af Amer) 33.2 BUN/Creatinine Ratio 16.3 Glucose 140 H Lactate Calcium 9.8 Magnesium 1.8 Total Bilirubin 0.9 AST 20 ALT 10 Alkaline Phosphatase 71 Troponin I High Sens 6.6 Total Protein 6.6 Albumin 4.1 Globulin 2.5 Albumin/Globulin Ratio 1.6 Lipase 17 Procalcitonin TSH 1.730 SARS-CoV-2, RNA, NAAT Diagnostic Findings Chest X-Ray 01/23/23 13:53 XR chest 1V portable HISTORY: 67 years-old Female weakness acute weakness COMPARISON: Chest CT 08/16/2022 TECHNIQUE: AP view of the chest FINDINGS: Limited exam secondary to patient rotation. The heart is upper limits of normal in size. No pneumothorax. Probable trace left pleural effusion. Multifocal dense airspace opacities are noted within the left midlung and left lung base. Degenerative changes of the shoulders and spine. IMPRESSION: 1. Limited exam secondary to positioning. 2. Left midlung and left basilar airspace opacities are suggestive of multifocal pneumonia. Follow-up imaging after treatment course is needed to document resolution ACT 112: Negative or not required by law. The above report was generated using voice recognition software. It may contain grammatical, syntax or spelling errors. Electronically signed by: Mark Nina M.D. 01/23/2023 2:[address] 01/23/23 14:29 CT SCAN OF THE CHEST WITHOUT IV CONTRAST CLINICAL HISTORY: Atypical chest pain. Airspace consolidation seen by chest x- ray. COMPARISON STUDY: Chest CT dated 08/16/2022 and chest x-ray dated 01/23/2023. TECHNIQUE: CT scan of the thorax was performed from the thoracic inlet to the upper abdomen. Images are reviewed in the axial, sagittal, and coronal planes. IV contrast was not administered for this examination as per the referring clinician. A dose lowering technique was utilized adhering to the principles of ALARA. The examination is degraded by motion artifact, as well as by streak artifact from the left arm which cannot be elevated above the chest. CT DOSE: 259.33 mGycm FINDINGS: Thyroid: Atrophic and heterogeneous. Thoracic aorta: There is moderate atherosclerotic calcification of the thoracic aorta, which is normal in caliber and demonstrates standard 3-vessel arch anatomy. Heart: The heart is normal in size and without pericardial effusion. The coronary arteries are densely calcified. Lungs and pleural spaces: The trachea and central airways appear clear. No pleural effusion is identified. Multifocal airspace consolidation is seen throughout the left lung, most confluent in the left lower lobe. Minimal patchy airspace consolidation is seen in the right upper lobe. Scarring/atelectasis is seen at the right lung base. A 4 mm right lower lobe pulmonary nodule is seen on image #[id number]. Mediastinum: There is no mediastinal lymphadenopathy. Bernie: Not well assessed without IV contrast. Axillae: There is no axillary lymphadenopathy. Upper abdomen: Postsurgical change is noted in the partially visualized stomach. The esophagus is distended and patulous, and filled with food/debris to the level of the thoracic inlet. Skeletal structures: The skeletal structures are osteopenic. Degenerative change and kyphoscoliosis is noted in the thoracic spine. No lytic or blastic bony lesions are seen. There is chronic appearing deformity of the distal left clavicle. There are also numerous chronic appearing/healed bilateral rib fractures. IMPRESSION: 1. Extensive airspace consolidation throughout the left lung as well as minimal patchy consolidation in the right upper lobe is typical for multifocal pneumonia. Clinical correlation will be required and radiographic follow-up to resolution is recommended. 2. Postsurgical change is noted in the partially visualized stomach. The esophagus is distended/patulous and filled with fluid/debris to the level of the thoracic inlet. This places the patient at significant risk for aspiration, and this is likely the etiology of the pneumonia. 3. There is a 4 mm pulmonary nodule at the right lung base. This is pathologically indeterminate and should be followed as per the Fleischner criteria. 4. Advanced coronary artery calcification. 5. Additional findings as above. Please refer to below summary of Fleischner criteria recommendations for follow- up of incidental CT nodules (Rachelle Hussein, Guidelines for management of small pulmonary nodules detected on CT scans: A statement from the Fleischner Society, Radiology 237: [phone].) SOLID NODULES Solitary nodule size: <6 mm * low risk patients: no follow-up needed * high risk patients: optional CT at 12 months Solitary nodule size: 6-8 mm * low risk patients: follow-up at 6-12 months, then consider further follow-up at 18-24 months * high risk patients: initial follow-up CT at 6-12 months and then at 18-24 months if no change Solitary nodule size: >8 mm * either low or high risk patients - consider follow-up CT at 3 months, and/or CT-PET, and/or biopsy Multiple nodules size: <6 mm * low risk patients: no routine follow-up * high risk patients: optional CT at 12 months Multiple nodules size: 6-8 mm * low risk patients: follow-up at 3-6 months, then consider further follow-up at 18-24 months * high risk patients: follow-up at 3-6 months, then at 18-24 months if no change Multiple nodules size: >8 mm * low risk patients: follow-up at 3-6 months, then consider further follow-up at 18-24 months * high risk patients: follow-up at 3-6 months, then at 18-24 months if no change Note: newly detected indeterminate nodule in persons 35 years of age or older. * low risk patients: minimal or absent history of smoking and/or other known risk factors * high risk patients: history of smoking or of other known risk factors (e.g. first degree relative with lung cancer, or exposure to asbestos, radon, uranium) * if a nodule up to 8 mm is partly solid or is ground glass further follow-up is required after 24 months to exclude possible slow growing adenocarcinoma (YOLY) SUBSOLID NODULES Solitary pure ground-glass nodule * nodule size <6 mm - no CT follow-up required * nodule size >=6 mm - follow-up CT at 6-12 months, then every 2 years until 5 years Solitary part-solid nodule * nodule size <6 mm - no CT follow-up required * nodule size >=6 mm - follow-up CT at 3-6 months. If unchanged, and solid component remains <6 mm, then annual follow-up for 5 years Multiple subsolid nodules * nodule size <6 mm - follow-up CT at 3-6 months, consider further follow-up at 2 and 4 years if stable * nodule size >=6 mm - follow-up CT at 3-6 months, subsequent management based on the most suspicious nodule(s) ACT 112: Negative or not required by law. Electronically signed by: Yury Brown M.D. 01/23/2023 3:37 PM ECG Additional Comments: 23-JAN-2023 13:39:19 [facility]-EDSTAT ROUTINE RETRIEVAL Normal sinus rhythm Incomplete right bundle branch block Left anterior fascicular block Minimal voltage criteria for LVH, may be normal variant ST & T wave abnormality, consider lateral ischemia Abnormal ECG When compared with ECG of 16-AUG-2022 03:24, Criteria for Septal infarct are no longer Present Nonspecific T wave abnormality, improved in Inferior leads T wave inversion now evident in Lateral leads ... 25mm/s10mm/[id number] 241CID: 13Unconfirmed Vent. rate 99 BPM ME interval 150 ms QRS duration 102 ms QT/QTc 350/449 ms Code Status & VTE Plan Code Status Conditional code Supervising Physician Co-Signing Physician Notes I have seen and examined the patient and have discussed the case with the jenaei win above. I agree with the assessment and plan as stated with the following exceptions. The patient is a 67-year-old female who presents with chest discomfort vomiting and shortness of breath over the last several days. She is currently unable to tolerate liquids p.o. including medications. She has a history of requiring esophageal dilations in the past and has a history of gastric bypass surgery. She reports her last dilation was approximately over a year ago and she is felt in recent weeks that she is having progressive worsening of her dysphagia. On Sunday she started vomiting profusely and has not been able to take in any p.o. since that time. She subsequently has a multifocal pneumonia on work-up and is hypoxic. On physical exam she is in no acute distress and is comfortably breathing and speaking on 2 L nasal cannula oxygenating 94%. Heart rate is slightly elevated at 94 bpm. Vitals otherwise stable and she is afebrile. Lungs are clear to auscultation throughout, however patient is very triggered to cough with breathing. Cardiac auscultation reveals S1-S2 heard with no murmurs gallops or rubs. Abdomen is soft nontender nondistended. Extremities are warm and well- perfused. She has no gross focal neurologic or musculoskeletal deficits. She is alert and oriented x3. Work-up in the ER reveals a CBC with a leukocytosis of 12.56. She has a left shift on differential. H&H and platelets are normal. Chemistry panel reflects dehydration with a sodium of 144, chloride of 103, bicarb of 20, anion gap 21, creatinine 1.6 with a baseline of 1.07. Lactate is 1.6. Magnesium 1.8. Liver function studies are otherwise normal. Troponin is within normal limits. Procalcitonin is elevated at 5.5. Lipase is 17. TSH within normal limits. Imaging including a chest CT without contrast reveals extensive airspace consolidation to the left lung as well as minimal patchy consolidation of the right upper lobe typical for multifocal pneumonia. There are postsurgical changes noted in the partially visualized stomach with an esophagus that is distended and patulous and filled with fluid and debris to the level of thoracic inlet. This places the patient at significant risk for aspiration and is likely the etiology of pneumonia. There is a 4 mm pulmonary nodule at the right base which was shared with the patient. Advanced coronary artery calcification was a lso seen. 1. Multifocal pneumonia likely secondary to aspiration 2. Anion gap metabolic acidosis likely secondary to starvation ketosis 3. Acute renal failure 4. Dysphagia with history of gastric bypass surgery with gastrojejunal anastomosis requiring dilation for moderate stenosis historically. 67 yo F presenting with aspiration pneumonia 2/2 G-J anastomosis stenosis with subsequent dysphagia to solids and liquids. Agree with transition to Unasyn to cover for aspiration pneumonia. She is also in a state of starvation with a HAGMA. This is likely related to starvation ketosis. Will check phosphate and replete to avoid refeeding syndrome. Mag and K are looking good. To be conservative will also check serum osmolality, although no additional alcohol intoxication is suspected. Agree wtih dextrose and will add thiamine given possibility of nutritional deficiency with h/o gastric bypass. Appreciate GI assistance. DO Freddy UPDATE: Phos is 3.4. Posm is elevated to 310, however, calculated osmolality is 305 which is not a significant gap. Follow BMP to ensure anion gap is closing with dextrose solution. sms
--- NOTE | 2023-01-23 17:40 | Communication Note ---
Date of Service: January 23, 2023 HOSPITALIST ATTENDING ADDENDUM: The patient is a 67-year-old female who presents with chest discomfort vomiting and shortness of breath over the last several days. She is currently unable to tolerate liquids p.o. including medications. She has a history of requiring esophageal dilations in the past and has a history of gastric bypass surgery. She reports her last dilation was approximately over a year ago and she is felt in recent weeks that she is having progressive worsening of her dysphagia. On Sunday she started vomiting profusely and has not been able to take in any p.o. since that time. She subsequently has a multifocal pneumonia on work-up and is hypoxic. On physical exam she is in no acute distress and is comfortably breathing and speaking on 2 L nasal cannula oxygenating 94%. Heart rate is slightly elevated at 94 bpm. Vitals otherwise stable and she is afebrile. Lungs are clear to auscultation throughout, however patient is very triggered to cough with breathing. Cardiac auscultation reveals S1-S2 heard with no murmurs gallops or rubs. Abdomen is soft nontender nondistended. Extremities are warm and well- perfused. She has no gross focal neurologic or musculoskeletal deficits. She is alert and oriented x3. Work-up in the ER reveals a CBC with a leukocytosis of 12.56. She has a left shift on differential. H&H and platelets are normal. Chemistry panel reflects dehydration with a sodium of 144, chloride of 103, bicarb of 20, anion gap 21, creatinine 1.6 with a baseline of 1.07. Lactate is 1.6. Magnesium 1.8. Liver function studies are otherwise normal. Troponin is within normal limits. Procalcitonin is elevated at 5.5. Lipase is 17. TSH within normal limits. Imaging including a chest CT without contrast reveals extensive airspace consolidation to the left lung as well as minimal patchy consolidation of the right upper lobe typical for multifocal pneumonia. There are postsurgical changes noted in the partially visualized stomach with an esophagus that is distended and patulous and filled with fluid and debris to the level of thoracic inlet. This places the patient at significant risk for aspiration and is likely the etiology of pneumonia. There is a 4 mm pulmonary nodule at the right base which was shared with the patient. Advanced coronary artery calcification was also seen. 1. Multifocal pneumonia likely secondary to aspiration 2. Anion gap metabolic acidosis likely secondary to starvation ketosis 3. Acute renal failure 4. Dysphagia with history of gastric bypass surgery with gastrojejunal anastomosis requiring dilation for moderate stenosis historically. 67 yo F presenting with aspiration pneumonia 2/2 G-J anastomosis stenosis with subsequent dysphagia to solids and liquids. Agree with transition to Unasyn to cover for aspiration pneumonia. She is also in a state of starvation with a HAGMA. This is likely related to starvation ketosis. Will check phosphate and replete to avoid refeeding syndrome. Mag and K are looking good. To be conservative will also check serum osmolality, although no additional alcohol intoxication is suspected. Agree wtih dextrose and will add thiamine given possibility of nutritional deficiency with h/o gastric bypass. Appreciate GI assistance. DO Freddy
[2023-01-23] MEDS ORDERED: THIAMINE HCL 100 MG in SYRINGE 9 ML IV STA (17:43)
[2023-01-23] MEDS ORDERED: DEXTROSE 5% 1,000 ML IV SCH (17:45)
[2023-01-23] MEDS ORDERED: ONDANSETRON INJ 2 MG/ML 2 ML VIAL ONE (18:09)
[2023-01-23] MEDS: metroNIDAZOLE 500 MG/100 ML BAG IV STA ×2 (18:12→18:57)
--- NOTE | 2023-01-23 18:52 | CT Scan Report ---
CT SCAN OF THE ABDOMEN AND PELVIS WITHOUT IV CONTRAST CLINICAL HISTORY: Esophageal distention seen on chest CT. COMPARISON STUDY: Abdominal CT dated 08/16/2022. Chest CT performed the same day 01/23/2023. TECHNIQUE: CT scan of the abdomen and pelvis is performed from the lung bases to the proximal femora. Images are reviewed in the axial, sagittal, and coronal planes. IV contrast was not administered for this examination as per the referring clinician. Note that the examination was performed in suboptim al fashion without oral and IV contrast. There is also streak artifact from the left arm which could not be elevated above the abdomen. A dose lowering technique was utilized adhering to the principles of ALARA. CT DOSE: 311.60 mGy.cm FINDINGS: Lung bases: The heart is normal in size and without pericardial effusion. The coronary arteries are d ensely calcified. Multifocal airspace consolidation is seen throughout the left lower lung. A 4 mm ri ght lower lobe pulmonary nodule is seen on image #22. No pleural effusion is identified. The distal e sophagus is distended and filled with fluid. Liver: The unenhanced liver is normal in size, contour, and attenuation. There is mild central intrah epatic biliary ductal dilatation. Gallbladder: Not identified and presumed surgically absent. Spleen: Normal in size and attenuation. Pancreas: The unenhanced pancreas is grossly unremarkable. Adrenal glands: Unremarkable. Kidneys: The unenhanced kidneys there is straightening of cortical atrophy and are without hydronephr osis. There are no renal calculi identified. There is no evidence of contour deforming renal mass les ion. Abdominal vasculature: The abdominal aorta is normal in course and caliber noting advanced atheroscle rotic calcification. Bowel: Postsurgical changes consistent with a history of [place]-en-Y gastric bypass surgery. The gastri c pouch is distended and filled with fluid/debris. The jejunum just below the gastrojejunostomy is de compressed, and the distal small bowel loops are normal in caliber. There are scattered colonic diver ticula without CT evidence of acute diverticulitis. A small duodenal diverticulum is incidentally not ed. The appendix is not identified and reported surgically absent. Residual enteric contrast is sugg ested in the rectosigmoid. Peritoneum: There is no intraperitoneal free air or abdominal ascites. Lymphadenopathy: None. Pelvic viscera: The bladder is normal as visualized. The uterus is surgically absent. No adnexal lesi on is seen. Skeletal structures: The skeletal structures are osteopenic. There is moderate lumbosacral spondylosi s. No lytic or blastic lesions are seen. There are subacute appearing right anterior rib fractures. C hronic/healed rib fractures are seen on the left. IMPRESSION: 1. Postsurgical change is consistent with a history of [place]-en-Y gastric bypass surgery. 2. The gastric pouch is distended and filled with fluid/debris. The jejunum just below the gastrojeju nostomy is decompressed, and this suggests at least partial obstruction at the gastrojejunostomy. Thi s could be retained to a retained food bolus within the gastric pouch or possibly anastomotic strictu re. GI or surgical evaluation is advised. 3. Multifocal airspace consolidation at the left lung base is consistent with pneumonia/aspiration pn eumonitis. CT pelvis chest CT report for details of thoracic findings. 4. Additional findings as above. ACT 112: Negative or not required by law. Electronically signed by: Yury Brown M.D. 01/23/2023 6:50 PM
[2023-01-23 19:24] LABS: Phosphorus 3.4 mg/dl (2.5-4.9)
--- NOTE | 2023-01-23 19:35 | Emergency Department Note ---
Impression & Plan Multifocal pneumonia, Anastomotic stenosis of gastrojejunostomy, Esophagus disorder, Left-sided chest pain ED Provider Note INFORMANT: Patient ED PROVIDER(S): Kamaljit Bonner MD CHIEF COMPLAINT: Left-sided chest pain PLAN: Disposition: Admitted Condition: Guarded Outpatient prescription management: none Referral: None MEDICAL DECISION MAKING: Patient presented complaining of left-sided chest pain. She was also had vomiting. Given her history this was concerning. Chest x-ray was performed and showed a significant infiltrate. The patient was requiring some small amounts of nasal cannula oxygen to maintain normal saturations. She was treated with a dose of Dilaudid and Zofran and felt significantly better with this. Because of the infiltrates she was given a dose of Rocephin and doxycycline after blood cultures. Patient's ECG did show slight lateral ST depression. Her white count was elevated. Chest CT was performed. Patient had mild ANNE. She was gently hydrated. The patient underwent chest CT imaging without contrast due to the elevated creatinine. This did show a multifocal pneumonia. Esophagus and stomach was dilated to raise concerns about partial stricture. Patient will need further evaluation and management in the hospital. Patient was given IV Flagyl as well due to concerns for possible aspiration as a source. Consultation was made with the [facility] hospitalist service. The case was discussed and diagnostics were reviewed. The patient will be admitted. I also discussed the case with Joi Welsh from [facility] gastroenterology. History, physical, diagnostic results discussed. Patient will be evaluated by gastroenterology as well. Discussed with ED pharmacist regarding antibiotic choice. Discussed with manager combination. After review of the information above and other included data, I feel the patient requires admission to the hospital. Triage Nursing notes reviewed and agree them. Vital Signs: reviewed and remarkable for mild hypoxia Prior /Outside records reviewed: none Differential diagnosis: Cardiac ischemia, aortic dissection, pulmonary embolism, pneumothorax, pneumonia, pericarditis, myocarditis, esophageal rupture, GERD, cholecystitis, pancreatitis, musculoskeletal, as well as other pathologies. Diagnostics, as interpreted by me: ECG: Twelve-lead ECG reveals normal sinus rhythm at 99 bpm. Incomplete right bundle branch block present. Left anterior fascicular block. There is lateral ST depression present. This is mild. Cardiac Monitoring: Cardiac monitoring ordered by me: The patient was placed on continuous cardiac monitoring and observed. It revealed a normal sinus rhythm at 93 beats per minute without ectopy or evidence of dysrhythmia. Medical decision rules: none Imaging studies: Chest x-ray and CT scan as above. Multifocal pneumonia noted. Esophageal and proximal stomach dilatation noted. I refer you to the EMR for fu rther details. HPI: The patient is a 67year old female who presents to the Emergency Room with complaints of left-sided chest pain. This started about 2 days ago and is wor sening. The patient also notes the following associated symptoms, vomiting and difficulty drinking. The patient has tried nitro unsuccessfully for relieving factors. Current pain is rated as 9/10. Patient was concerned as she has a history of coronary disease. Patient states it hurts to take deep breath. Patient does have a history of gastric bypass and stricture. Pt denies LOC, headache, fevers, chills, diaphoresis, visual changes, neck pain, abdominal pain, back pain, melena, hematochezia, urinary symptoms, numbness, weakness, lymphadenopathy, rash, or other complaints. PAST MEDICAL HISTORY: See Below, CAD PAST SURGICAL HISTORY: See Below, gastric bypass SOCIAL HISTORY: See Below, former smoker HOME MEDICATIONS: See Below ALLERGIES: See Below VITALS: See Below PHYSICAL EXAMINATION: GENERAL: Awake, alert, uncomfortable-appearing, in no distress HENT: Normocephalic, atraumatic. Oropharynx unremarkable. EYES: Normal conjunctiva. Sclera non-icteric. NECK: Inspection normal. Non-tender. Supple. No nuchal rigidity. FROM. No masses. RESPIRATORY: Left-sided rales noted. No wheezes. Normal respiratory effort. CARDIAC: Normal rate. Normal rhythm. No murmurs. No rubs. Extremities warm and well perfused. Pulses equal. No JVD. GI: Soft, non-distended. No tenderness to palpation. No rebound or guarding. No masses. RECTAL: Deferred. MUSCULOSKELETAL: Atraumatic. Chest examination reveals no tenderness. The back is symmetrical on inspection without obvious abnormality. There is no CVA tenderness to palpation. No joint edema. LOWER EXTREMITIES: Calves are equal size bilaterally and non-tender. No edema. Chronic venous discoloration. NEURO: Normal sensorium. No sensory or motor deficits noted. SKIN: No rash or jaundice noted. Past Med/Surg History Medical History (Updated 01/23/23 @ 19:35 by Kamaljit Bonner MD) Alcoholic HX (NO PROBLEMS SINCE 2012) 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 Anemia, iron deficiency Anxiety and depression Arthritis Cardiomyopathy Esophagus disorder GERD (gastroesophageal reflux disease) History of esophageal dilatation (05/04/21) dilation of the stenosis of G-Jejunostomy History of stomach ulcers Hx of intestinal obstruction Hx of migraines Hx of myocardial infarction 09/2020 Hx of sleep apnea HOME SLEEP STUDY NORMAL>RECENT Hyperlipidemia Hypothyroidism Osteoarthritis Prediabetes Surgical History Abscess 2019 Hx of I&D of left axilla abscess. MRSA POSITIVE Family history of reaction to anesthesia SISTER>SWELLING ALL OVER ? DETAILS History of appendectomy History of cataract surgery RT/LEFT History of cholecystectomy History of colonoscopy History of esophagogastroduodenoscopy (EGD) History of heart artery stent 1 STENT PLACED 09/2020 History of hysterectomy History of tonsillectomy and adenoidectomy History of tooth extraction History of vascular access device CENTRAL LINE/REMOVED Hx of gastric bypass 20 YEARS AGO Nausea and vomiting after administration of anesthetic agent Family History (Updated 08/22/22 @ 13:41 by Deyanira Pandya RN) Mother Family history of diabetes mellitus Diabetes Heart disease Son Family history of diabetes mellitus Diabetes Stroke Brother Family history of diabetes mellitus Diabetes Heart disease Aunt Breast cancer Uncle Colorectal cancer Social History (Updated 08/22/22 @ 13:42 by Deyanira Pandya RN) Smoking Status: Former smoker Tobacco Type: Cigarettes packs per day: 1; Second Hand Exposure: Yes (IN THE PAST); Hx Alcohol Use: No (QUIT 2012) Preferred Language: Beninese Communication Ability: Effective Visual Impairment: No Limitations Operations Recruiter Required: No Beliefs That Will Affect Care: None marital status: Current Living Situation: Alone current occupational status: disabled How many Children do You have: 2 Feels Safe at Home: Yes during the past year weight has: remained stable Assistive Devices: Denture - Upper, Denture - Lower and Glasses Allergies Allergies Allergy/AdvReac Type Severity Reaction Status Date / Time Sulfa (Sulfonamide Allergy Severe AIRWAY Verified 08/22/22 13:08 Antibiotics) SWELLING Home Meds Home Medications Medication Instructions Recorded Confirmed metformin 500 mg tablet 500 mg PO HS 10/01/20 01/23/23 nortriptyline 50 mg capsule 50 mg PO HS 10/01/20 01/23/23 sucralfate 1 gram tablet 1 g PO ACHS 10/01/20 01/23/23 nitroglycerin 0.4 mg sublingual 0.4 mg sublingual DIRECTED PRN 05/01/21 01/23/23 tablet Chest Pain albuterol sulfate 90 mcg/actuation 1 inh inhalation Q4H PRN SHORT OF 09/21/21 01/23/23 aerosol inhaler BREATH albuterol sulfate 5 mg/mL(0.5 %) 2.5 mg inhalation DIRECTED PRN 08/16/22 01/23/23 solution for nebulization Shortness Of Breath Or Wheezing ondansetron HCl 4 mg tablet 4 mg PO Q8H PRN NAUSEA/VOMITING 08/16/22 01/23/23 ascorbic acid (vitamin C) 100 mg 100 mg PO DAILY 01/23/23 01/23/23 tablet (Vitamin C) atorvastatin 80 mg tablet 80 mg PO DAILY 01/23/23 01/23/23 cyanocobalamin (vitamin B-12) 1,000 mcg Q3M 01/23/23 01/23/23 1,000 mcg/mL injection syringe levothyroxine 75 mcg tablet 75 mcg PO DAILY 01/23/23 01/23/23 thiamine HCl (vitamin B1) 100 mg 100 mg PO DAILY 01/23/23 01/23/23 tablet Previous Rx's Medication Instructions Recorded aspirin 81 mg tablet,delayed 81 mg PO QAM 30 days #30 tabs 10/02/20 release clopidogrel 75 mg tablet 75 mg PO QAM 30 days #30 tabs 10/02/20 esomeprazole magnesium 40 mg 40 mg PO BID #60 caps 05/04/21 capsule,delayed release (Nexium) Results & Data (ED) Vital Signs Vital Signs - 24 hr 01/23/23 13:43 01/23/23 13:53 01/23/23 14:13 Temperature 37.2 C Temperature Source Oral Pulse Rate 98 H 94 H Pulse Rate [Apical] Pulse Rhythm Regular Pulse Rhythm [Apical] Pulse Strength Normal Pulse Strength [Apical] Respiratory Rate 22 Respiratory Effort / Characteristics Non-Labored Respiratory Depth Normal Respiratory Pattern Regular Blood Pressure 120/68 Blood Pressure [Left Arm] Blood Pressure Mean 85 Blood Pressure Mean [Left Arm] Blood Pressure Position Lying Pulse Oximetry 96 96 Oxygen Delivery Method Room Air Room Air Oxygen Flow Rate Sepsis Recent Fever Within 48 Hours No Sepsis New/Unexplained Change in Mental Status No Sepsis Action Taken by Nursing No Action Required 01/23/23 16:00 01/23/23 18:15 01/23/23 18:00 Temperature Temperature Source Pulse Rate 93 H Pulse Rate [Apical] 94 H 96 H Pulse Rhythm Pulse Rhythm [Apical] Regular Regular Pulse Strength Pulse Strength [Apical] Normal Normal Respiratory Rate 23 18 Respiratory Effort / Characteristics Non-Labored Non-Labored Respiratory Depth Normal Normal Respiratory Pattern Regular Regular Blood Pressure Blood Pressure [Left Arm] 128/70 Blood Pressure Mean Blood Pressure Mean [Left Arm] 89 Blood Pressure Position Pulse Oximetry 94 Oxygen Delivery Method Nasal Cannula Oxygen Flow Rate 2 Sepsis Recent Fever Within 48 Hours Sepsis New/Unexplained Change in Mental Status Sepsis Action Taken by Nursing Laboratory Data 01/23/23 13:45 01/23/23 13:45 Lab Results 01/23/23 01/23/23 01/23/23 Range/Units 13:45 13:45 13:45 WBC 12.56 H (4.8-10.8) K/ul RBC 4.66 (4.20-5.40) M/uL Hgb 12.4 (12.0-16.0) g/dl Hct 38.8 (37.0-47.0) % MCV 83.3 (80.0-100.0) fL MCH 26.6 (25.0-34.0) pg MCHC 32.0 (32.0-36.0) g/dL Plt Count 245 (130-400) K/uL MPV 9.3 L (9.4-12.4) fL Immature Gran % (Auto) 0.2 % Neut % (Auto) 94.1 % Lymph % (Auto) 2.3 % Borden % (Auto) 3.2 % Eos % (Auto) 0.0 % Baso % (Auto) 0.2 % Neut # (Auto) 11.82 H (1.40-6.50) K/uL Lymph # (Auto) 0.29 L (1.2-3.4) K/uL Borden # (Auto) 0.40 (0.11-0.59) K/uL Eos # (Auto) 0.00 (0-0.50) K/uL Baso # (Auto) 0.02 (0-0.2) K/uL Immature Gran # (Auto) 0.03 (0.01-0.20) K/uL Polychromasia 1+ Echinocytes 3+ Sodium 144 (136-145) mmol/L Potassium 3.7 (3.5-5.1) mmol/L Chloride 103 (98-107) mmol/L Carbon Dioxide 20 L (21-32) mmol/L Anion Gap 21 H (3-11) BUN 26 H (6-23) mg/dl Creatinine 1.60 H (0.6-1.2) mg/dl Est Cr Clr Drug Dosing 28.6 ml/min Est GFR ( Amer) 38.5 ml/min Est GFR (Non-Af Amer) 33.2 ml/min BUN/Creatinine Ratio 16.3 (10-20) Glucose 140 H (70-99(Fasting)) mg/dl Lactate (0.4-2.0) mmol/L Calcium 9.8 (8.5-10.1) mg/dl Phosphorus 3.4 (2.5-4.9) mg/dl Magnesium 1.8 (1.7-2.4) mg/dl Total Bilirubin 0.9 (0.2-1.0) mg/dl AST 20 (13-39) U/L ALT 10 (7-52) U/L Alkaline Phosphatase 71 (34-104) U/L Troponin I High Sens 6.6 (0-14) pg/ml Total Protein 6.6 (6.0-8.3) gm/dl Albumin 4.1 (3.4-5.0) gm/dl Globulin 2.5 (2.5-4.0) gm/dl Albumin/Globulin Ratio 1.6 (0.9-2) Lipase 17 (11-82) U/L Procalcitonin (0-0.5) ng/ml TSH 1.730 (0.300-4.500) uIu/ml SARS-CoV-2, RNA, NAAT (NEGATIVE) 01/23/23 01/23/23 01/23/23 Range/Units 14:03 14:35 14:35 WBC (4.8-10.8) K/ul RBC (4.20-5.40) M/uL Hgb (12.0-16.0) g/dl Hct (37.0-47.0) % MCV (80.0-100.0) fL MCH (25.0-34.0) pg MCHC (32.0-36.0) g/dL Plt Count (130-400) K/uL MPV (9.4-12.4) fL Immature Gran % (Auto) % Neut % (Auto) % Lymph % (Auto) % Borden % (Auto) % Eos % (Auto) % Baso % (Auto) % Neut # (Auto) (1.40-6.50) K/uL Lymph # (Auto) (1.2-3.4) K/uL Borden # (Auto) (0.11-0.59) K/uL Eos # (Auto) (0-0.50) K/uL Baso # (Auto) (0-0.2) K/uL Immature Gran # (Auto) (0.01-0.20) K/uL Polychromasia Echinocytes Sodium (136-145) mmol/L Potassium (3.5-5.1) mmol/L Chloride (98-107) mmol/L Carbon Dioxide (21-32) mmol/L Anion Gap (3-11) BUN (6-23) mg/dl Creatinine (0.6-1.2) mg/dl Est Cr Clr Drug Dosing ml/min Est GFR ( Amer) ml/min Est GFR (Non-Af Amer) ml/min BUN/Creatinine Ratio (10-20) Glucose (70-99(Fasting)) mg/dl Lactate 1.6 (0.4-2.0) mmol/L Calcium (8.5-10.1) mg/dl Phosphorus (2.5-4.9) mg/dl Magnesium (1.7-2.4) mg/dl Total Bilirubin (0.2-1.0) mg/dl AST (13-39) U/L ALT (7-52) U/L Alkaline Phosphatase (34-104) U/L Troponin I High Sens (0-14) pg/ml Total Protein (6.0-8.3) gm/dl Albumin (3.4-5.0) gm/dl Globulin (2.5-4.0) gm/dl Albumin/Globulin Ratio (0.9-2) Lipase (11-82) U/L Procalcitonin 5.50 H (0-0.5) ng/ml TSH (0.300-4.500) uIu/ml SARS-CoV-2, RNA, NAAT NEGATIVE (NEGATIVE) Administered Medications Discontinued Medications Hydromorphone HCl (Hydromorphone Inj 0.5 Mg/0.5 Ml Syr) 0.25 mg IV NOW STA Stop: 01/23/23 14:21 Last Admin: 01/23/23 14:26 Dose: 0.25 mg Documented By: JOSE JUAN Sodium Chloride (Nss 1000ml) 500 mls @ 999 mls/hr IV .Q31M ONE Stop: 01/23/23 14:23 Last Infusion: 01/23/23 14:30 Dose: 0 mls/hr Documented By: JOSE JUAN Admin: 01/23/23 13:59 Dose: 999 mls/hr Documented By: JOSE JUAN Sodium Chloride (Nss 1000ml) 1,000 mls @ 125 mls/hr IV .Q8H BABAK Stop: 02/22/23 13:59 Last Infusion: 01/23/23 19:03 Dose: 0 mls/hr Documented By: Infusion: 01/23/23 19:01 Dose: 0 mls/hr Documented By: Admin: 01/23/23 14:00 Dose: 125 mls/hr Documented By: JOSE JUAN Ceftriaxone Sodium (Rocephin) 2,000 mg in 70 mls @ 140 mls/hr IV NOW STA Stop: 01/23/23 14:49 Last Infusion: 01/23/23 15:35 Dose: 0 mls/hr Documented By: JOSE JUAN Admin: 01/23/23 14:56 Dose: 140 mls/hr Documented By: KT Doxycycline Hyclate 100 mg/ (Dextrose) 110 mls @ 50 mls/hr IV NOW STA Stop: 01/23/23 16:31 Last Infusion: 01/23/23 19:00 Dose: 0 mls/hr Documented By: Admin: 01/23/23 15:36 Dose: 50 mls/hr Documented By: [id number] Metronidazole (Flagyl) 500 mg in 100 mls @ 100 mls/hr IV NOW STA Stop: 01/23/23 17:32 Last Admin: 01/23/23 18:57 Dose: 100 mls/hr Documented By: ALONSO Thiamine HCl 100 mg/ Syringe 10 mls @ 2 mls/min IV NOW STA Stop: 01/23/23 17:47 Last Admin: 01/23/23 18:59 Dose: 2 mls/min Documented By: ALONSO Ondansetron HCl (Ondansetron Inj 2 Mg/Ml 2 Ml Vial) 4 mg IV NOW STA Stop: 01/23/23 13:54 Last Admin: 01/23/23 14:00 Dose: 4 mg Documented By: OAKamlesh Ondansetron HCl (Ondansetron Inj 2 Mg/Ml 2 Ml Vial) Confirm Administered Dose 4 mg .ROUTE .STK-MED ONE Stop: 01/23/23 18:10 Last Admin: 01/23/23 18:13 Dose: 4 mg Documented By: NH Imaging Data Radiologist's Impression: Chest X-Ray 01/23/23 13:53 XR chest 1V portable HISTORY: 67 years-old Female weakness acute weakness COMPARISON: Chest CT 08/16/2022 TECHNIQUE: AP view of the chest FINDINGS: Limited exam secondary to patient rotation. The heart is upper limits of normal in size. No pneumothorax. Probable trace left pleural effusion. Multifocal dense airspace opacities are noted within the left midlung and left lung base. Degenerative changes of the shoulders and spine. IMPRESSION: 1. Limited exam secondary to positioning. 2. Left midlung and left basilar airspace opacities are suggestive of multifocal pneumonia. Follow-up imaging after treatment course is needed to document resolution ACT 112: Negative or not required by law. The above report was generated using voice recognition software. It may contain grammatical, syntax or spelling errors. Electronically signed by: Mark Nina M.D. 01/23/2023 2:[address] 01/23/23 14:29 CT SCAN OF THE CHEST WITHOUT IV CONTRAST CLINICAL HISTORY: Atypical chest pain. Airspace consolidation seen by chest x-ray. COMPARISON STUDY: Chest CT dated 08/16/2022 and chest x-ray dated 01/23/2023. TECHNIQUE: CT scan of the thorax was performed from the thoracic inlet to the upper abdomen. Images are reviewed in the axial, sagittal, and coronal planes. IV contrast was not administered for this examination as per the referring clinician. A dose lowering technique was utilized adhering to the principles of ALARA. The examination is degraded by motion artifact, as well as by streak artifact from the left arm which cannot be elevated above the chest. CT DOSE: 259.33 mGycm FINDINGS: Thyroid: Atrophic and heterogeneous. Thoracic aorta: There is moderate atherosclerotic calcification of the thoracic aorta, which is normal in caliber and demonstrates standard 3-vessel arch anatomy. Heart: The heart is normal in size and without pericardial effusion. The coronary arteries are densely calcified. Lungs and pleural spaces: The trachea and central airways appear clear. No pleural effusion is identified. Multifocal airspace consolidation is seen throughout the left lung, most confluent in the left lower lobe. Minimal patchy airspace consolidation is seen in the right upper lobe. Scarring/atelectasis is seen at the right lung base. A 4 mm right lower lobe pulmonary nodule is seen on image #188. Mediastinum: There is no mediastinal lymphadenopathy. Bernie: Not well assessed without IV contrast. Axillae: There is no axillary lymphadenopathy. Upper abdomen: Postsurgical change is noted in the partially visualized stomach. The esophagus is distended and patulous, and filled with food/debris to the level of the thoracic inlet. Skeletal structures: The skeletal structures are osteopenic. Degenerative change and kyphoscoliosis is noted in the thoracic spine. No lytic or blastic bony lesions are seen. There is chronic appearing deformity of the distal left clavicle. There are also numerous chronic appearing/healed bilateral rib fractures. IMPRESSION: 1. Extensive airspace consolidation throughout the left lung as well as minimal patchy consolidation in the right upper lobe is typical for multifocal pneumonia. Clinical correlation will be required and radiographic follow-up to resolution is recommended. 2. Postsurgical change is noted in the partially visualized stomach. The esophagus is distended/patulous and filled with fluid/debris to the level of the thoracic inlet. This places the patient at significant risk for aspiration, and this is likely the etiology of the pneumonia. 3. There is a 4 mm pulmonary nodule at the right lung base. This is pathologically indeterminate and should be followed as per the Fleischner criteria. 4. Advanced coronary artery calcification. 5. Additional findings as above. Please refer to below summary of Fleischner criteria recommendations for follow- up of incidental CT nodules (Rachelle Hussein, Guidelines for management of small pulmonary nodules detected on CT scans: A statement from the Fleischner Society, Radiology 237: [phone].) SOLID NODULES Solitary nodule size: <6 mm * low risk patients: no follow-up needed * high risk patients: optional CT at 12 months Solitary nodule size: 6-8 mm * low risk patients: follow-up at 6-12 months, then consider further follow-up at 18-24 months * high risk patients: initial follow-up CT at 6-12 months and then at 18-24 months if no change Solitary nodule size: >8 mm * either low or high risk patients - consider follow-up CT at 3 months, and/or CT-PET, and/or biopsy Multiple nodules size: <6 mm * low risk patients: no routine follow-up * high risk patients: optional CT at 12 months Multiple nodules size: 6-8 mm * low risk patients: follow-up at 3-6 months, then consider further follow-up at 18-24 months * high risk patients: follow-up at 3-6 months, then at 18-24 months if no change Multiple nodules size: >8 mm * low risk patients: follow-up at 3-6 months, then consider further follow-up at 18-24 months * high risk patients: follow-up at 3-6 months, then at 18-24 months if no change Note: newly detected indeterminate nodule in persons 35 years of age or older. * low risk patients: minimal or absent history of smoking and/or other known risk factors * high risk patients: history of smoking or of other known risk factors (e.g. first degree relative with lung cancer, or exposure to asbestos, radon, uranium) * if a nodule up to 8 mm is partly solid or is ground glass further follow-up is required after 24 months to exclude possible slow growing adenocarcinoma (YOLY) SUBSOLID NODULES Solitary pure ground-glass nodule * nodule size <6 mm - no CT follow-up required * nodule size >=6 mm - follow-up CT at 6-12 months, then every 2 years until 5 years Solitary part-solid nodule * nodule size <6 mm - no CT follow-up required * nodule size >=6 mm - follow-up CT at 3-6 months. If unchanged, and solid component remains <6 mm, then annual follow-up for 5 years Multiple subsolid nodules * nodule size <6 mm - follow-up CT at 3-6 months, consider further follow-up at 2 and 4 years if stable * nodule size >=6 mm - follow-up CT at 3-6 months, subsequent management based on the most suspicious nodule(s) ACT 112: Negative or not required by law. Electronically signed by: Yury Brown M.D. 01/23/2023 3:37 PM Abdomen/Pelvis CT 01/23/23 16:32 CT SCAN OF THE ABDOMEN AND PELVIS WITHOUT IV CONTRAST CLINICAL HISTORY: Esophageal distention seen on chest CT. COMPARISON STUDY: Abdominal CT dated 08/16/2022. Chest CT performed the same day 01/23/2023. TECHNIQUE: CT scan of the abdomen and pelvis is performed from the lung bases to the proximal femora. Images are reviewed in the axial, sagittal, and coronal planes. IV contrast was not administered for this examination as per the referring clinician. Note that the examination was performed in suboptimal fashion without oral and IV contrast. There is also streak artifact from the left arm which could not be elevated above the abdomen. A dose lowering technique was utilized adhering to the principles of ALARA. CT DOSE: 311.60 mGy.cm FINDINGS: Lung bases: The heart is normal in size and without pericardial effusion. The coronary arteries are densely calcified. Multifocal airspace consolidation is seen throughout the left lower lung. A 4 mm right lower lobe pulmonary nodule is seen on image #22. No pleural effusion is identified. The distal esophagus is distended and filled with fluid. Liver: The unenhanced liver is normal in size, contour, and attenuation. There is mild central intrahepatic biliary ductal dilatation. Gallbladder: Not identified and presumed surgically absent. Spleen: Normal in size and attenuation. Pancreas: The unenhanced pancreas is grossly unremarkable. Adrenal glands: Unremarkable. Kidneys: The unenhanced kidneys there is straightening of cortical atrophy and are without hydronephrosis. There are no renal calculi identified. There is no evidence of contour deforming renal mass lesion. Abdominal vasculature: The abdominal aorta is normal in course and caliber noting advanced atherosclerotic calcification. Bowel: Postsurgical changes consistent with a history of [place]-en-Y gastric bypass surgery. The gastric pouch is distended and filled with fluid/debris. The jejunum just below the gastrojejunostomy is decompressed, and the distal small bowel loops are normal in caliber. There are scattered colonic diverticula without CT evidence of acute diverticulitis. A small duodenal diverticulum is incidentally noted. The appendix is not identified and reported surgically absent. Residual enteric contrast is suggested in the rectosigmoid. Peritoneum: There is no intraperitoneal free air or abdominal ascites. Lymphadenopathy: None. Pelvic viscera: The bladder is normal as visualized. The uterus is surgically absent. No adnexal lesion is seen. Skeletal structures: The skeletal structures are osteopenic. There is moderate lumbosacral spondylosis. No lytic or blastic lesions are seen. There are subacute appearing right anterior rib fractures. Chronic/healed rib fractures are seen on the left. IMPRESSION: 1. Postsurgical change is consistent with a history of [place]-en-Y gastric bypass surgery. 2. The gastric pouch is distended and filled with fluid/debris. The jejunum just below the gastrojejunostomy is decompressed, and this suggests at least partial obstruction at the gastrojejunostomy. This could be retained to a retained food bolus within the gastric pouch or possibly anastomotic stricture. GI or surgical evaluation is advised. 3. Multifocal airspace consolidation at the left lung base is consistent with pneumonia/aspiration pneumonitis. CT pelvis chest CT report for details of thoracic findings. 4. Additional findings as above. ACT 112: Negative or not required by law. Electronically signed by: Yury Brown M.D. 01/23/2023 6:50 PM Discharge Plan Visit Data Chief Complaint: Illness ED Provider: Kamaljit Bonner Discharge Problem: Multifocal pneumonia, Anastomotic stenosis of gastrojejunostomy, Esophagus disorder, Left-sided chest pain Forms Stand Alone Forms: [employer] Prescriptions Prescriptions: No Action metformin 500 mg tablet 500 mg PO HS sucralfate 1 gram tablet 1 g PO ACHS Rx Instructions: TAKE ONE TABLET BEFORE MEALS AND BEDTIME nortriptyline 50 mg capsule 50 mg PO HS clopidogrel 75 mg Tablet 75 mg PO QAM 30 Days Qty: 30 3RF aspirin 81 mg Tablet,Delayed Release (Dr/Ec) 81 mg PO QAM 30 Days Qty: 30 3RF albuterol sulfate 90 mcg/actuation Hfa Aerosol Inhaler 1 inh INHALATION Q4H PRN (Reason: SHORT OF BREATH) ondansetron HCl [Zofran] 4 mg Tablet 4 mg PO Q8H PRN (Reason: NAUSEA/VOMITING) albuterol sulfate [Proventil] 5 mg/mL Solution For Nebulization 2.5 mg INHALATION DIRECTED PRN (Reason: Shortness Of Breath Or Wheezing) atorvastatin 80 mg tablet 80 mg PO DAILY thiamine HCl (vitamin B1) 100 mg Tablet 100 mg PO DAILY levothyroxine 75 mcg tablet 75 mcg PO DAILY Vitamin C 100 mg Tablet 100 mg PO DAILY cyanocobalamin (vitamin B-12) 1,000 mcg/mL Syringe 1,000 mcg Q3M Rx Instructions: IM inj Q3M nitroglycerin 0.4 mg Tablet, Sublingual 0.4 mg sublingual DIRECTED PRN (Reason: Chest Pain) Rx Instructions: Place 1 tab under tongue every 5 minutes as needed for chest pain. Up to 3 doses in 15 minutes. esomeprazole magnesium [Nexium] 40 mg capsule,delayed release(DR/EC) 40 mg PO BID Qty: 60 3RF Referrals Referrals: Gretta Mathur MD [Primary Care Provider] -
[2023-01-23] MEDS ORDERED: ALBUTEROL HFA 8 GM INHALER INH PRN (20:43)
[2023-01-23] MEDS ORDERED: GLUCAGON FOR INJ 1 MG VIAL SQ PRN (20:43)
[2023-01-23] MEDS ORDERED: CARBOHYDRATES FOR HYPOGLYCEMIA PO PRN (20:43)
[2023-01-23] MEDS ORDERED: GLUCOSE 40% GEL 15 GM TUBE PO PRN (20:43)
[2023-01-23] MEDS ORDERED: DEXTROSE 50% 50 ML SYRINGE IV PRN (20:43)
[2023-01-23] MEDS ORDERED: GLUCOSE 10 TAB/TUBE PO PRN (20:43)
[2023-01-23] MEDS: FAMOTIDINE 20 MG in SYRINGE 3 ML IV SCH (21:54)
[2023-01-23] MEDS: AMPICILLIN/SULBACTAM SOD 3,000 MG in 0.9 % SODIUM CHLORIDE 100 ML IV SCH (21:57)
[2023-01-23] MEDS: guaiFENesin 600 MG TABCR PO SCH (21:59)
[2023-01-23] MEDS: INSULIN ASPART PER UNIT CHARGE SC SCH (22:05)
[2023-01-23] MEDS: ACETAMINOPHEN 325 MG TAB PO PRN (22:06)
[2023-01-23] MEDS: ONDANSETRON INJ 2 MG/ML 2 ML VIAL IV PRN (22:14)
[2023-01-23] MEDS: D5W AND 1/2NSS 1,000 ML IV SCH (22:41)
[2023-01-23] MEDS: ALBUTEROL HFA 8 GM INHALER INH SCH (22:42)
[2023-01-24] MEDS: D5W AND 1/2NSS 1,000 ML IV SCH (06:35)
[2023-01-24 06:45] LABS: Appearance Urine Clear (Clear); Bilirubin Urine Negative (Negative); Blood Urine Negative (Negative); Color Urine Dark Yellow; Epithelial Cell Urine Auto >30 /lpf (0-5); Glucose Urine UA Negative (Negative); Ketones Urine 3+ (Negative); Leukocyte Esterase Urine Trace (Negative); Nitrite Urine Negative (Negative); Protein Urine 1+ (Negative); RBC Urine Automated 0-4 /hpf (0-4); Specific Gravity Urine 1.026 (1.000-1.030); Urobilinogen Urine Negative (Negative); pH Urine 5.5 (4.5-7.5)
[2023-01-24 07:03] LABS: Bacteria Urine Automated 1+ (Negative)
[2023-01-24 07:04] LABS: Mucus Urine Present (None Prsent)
[2023-01-24 07:29] LABS: Hematocrit (blood only) 31.7 % (37.0-47.0); Hemoglobin 9.8 g/dl (12.0-16.0); Mean Corpuscular Hemoglobin 26.3 pg (25.0-34.0); Mean Corpuscular Hgb Conc 30.9 g/dL (32.0-36.0); Mean Corpuscular Volume 85.2 fL (80.0-100.0); Mean Platelet Volume 9.6 fL (9.4-12.4); Platelet Count 222 K/uL (130-400); RDW Coefficient of Variation 24.6 % (11.5-14.5); RDW Standard Deviation 75.8 fL (36.4-46.3); Red Blood Count 3.72 M/uL (4.20-5.40); White Blood Count 15.64 K/ul (4.8-10.8)
[2023-01-24] MEDS: ALBUTEROL HFA 8 GM INHALER INH SCH ×2 (07:33→11:21)
[2023-01-24 07:50] LABS: Calcium 8.3 mg/dl (8.5-10.1); Creatinine Clr Calc Pharmacy 36.9 ml/min; Est GFR (African American) 52.4 ml/min; Est GFR (Non-African American) 45.2 ml/min; Magnesium 1.8 mg/dl (1.7-2.4); Phosphorus 3.8 mg/dl (2.5-4.9); Potassium 3.3 mmol/L (3.5-5.1)
[2023-01-24] MEDS: guaiFENesin 600 MG TABCR PO SCH ×2 (08:21→20:47)
[2023-01-24] MEDS: INSULIN ASPART PER UNIT CHARGE SC SCH ×4 (08:26→20:47)
[2023-01-24] MEDS: AMPICILLIN/SULBACTAM SOD 3,000 MG in 0.9 % SODIUM CHLORIDE 100 ML IV SCH ×3 (08:26→20:40)
[2023-01-24] MEDS: FAMOTIDINE 20 MG in SYRINGE 3 ML IV SCH (08:26)
[2023-01-24 10:11] LABS: Estimated Average Glucose 120 mg/dl; Hemoglobin A1C 5.8 % (4.5-5.6)
[2023-01-24] MEDS: POTASSIUM CHLORIDE / WTR 10 MEQ/100 ML PLCT IV SCH ×2 (10:37→11:41)
--- NOTE | 2023-01-24 11:59 | Electrocardiogram Report ---
Test Reason : Blood Pressure : / mmHG Vent. Rate : 099 BPM Atrial Rate : 099 BPM P-R Int : 150 ms QRS Dur : 102 ms QT Int : 350 ms P-R-T Axes : 032 -60 063 degrees QTc Int : 449 ms Normal sinus rhythm Incomplete right bundle branch block Left anterior fascicular block Minimal voltage criteria for LVH, may be normal variant Abnormal ECG When compared with ECG of 16-AUG-2022 03:24, Nonspecific T wave abnormality, improved in Inferior leads T wave inversion now evident in Lateral leads QT has shortened Confirmed by Ajith Medrano ([id number]) on 01/24/2023 11:58:59 AM Referred By: Confirmed By:Barry Medrano
--- NOTE | 2023-01-24 12:19 | Gastrointestinal Consultation ---
Date of Consultation January 24, 2023 Assessment & Plan (1) Multifocal pneumonia: Pt is a 67 yo female w hx of RYGB surgery who was admitted with multifocal pneumonia. Pt w hx of gastrojejunostomy anastomosis requiring series of dilations, most recently on 08/2022. She was having epigastric pressure discomfort, and vomitting few days ago. On CT chest/abd/pelvis, esophagus appears distended with fluid and debris at level to the thoracic inlet. Gastric pouch is distended and fluid/debris filled. Jejunum below GJ area decompressed suggesting partial obstruction at GJ area. She is able to tolerate sips of CL and swallowing her meds fine this AM. - CL diet today - Speech therapy eval and treat - NPO after midnight - EGD evaluation w possible dilation by Dr. Hairston tomorrow 01/25. Supervising Physician Co-Signing Physician Notes I personally saw and evaluated the patient on 01/24/2023 with ERIC Diane and I agree with her findings and plan of care. 67 y/o F with hx of RYGB with history of anastomotic stricture that has been dilated multiple times most recently in 2020 who was admitted with multifocal pneumonia concerning for aspiration. On imaging stomach and esophagus were dilated with some fluid to the level of the thoracic inlet. Patient reports that prior to coming in she was having some N/V and abdominal pain. She was feeling full very quickly. She states this is what happens when her anastomosis needs to be dilated. She has been tolerating sips of liquids and her PO medications without any concern for food bolus/obstruction clinically. She is endorsing some heartburn. On exam she is laying in bed resting comfortably. Tolerating secretions. Abdomen is soft, non-tender, and non-distended. Will plan for EGD tomorrow with potential dilation if needed. She was on plavix but last dose per patient was 4 days ago. NPO at midnight. PPI 40 mg BID. Ashlyn Hairston, DO Gastroenterology and Hepatology History of Present Illness Reason for Consultation: Hx of anastomosis stenosis, n/v. Requesting Physician: Dr. Tomas Moore Attending Physician: Dr. Ashlyn Hairston History of Present Illness Pt is a 67 yo female w PMhx of RYGB, w gastrojejunostomy anastomosis stenosis requiring dilations who present to ED w c/o SOB and pain w inspiration. She was eating few days ago and started getting epigastric pressure sensation, and feels that food is "stacking up" on esophagus, then vomited. She says this usually happens when her GJ anastomosis needs dilated again. She was found to have multifocal pneumonia on eval and was requiring O2 per NC. Currently satting 95% on RA. CT chest/abd/pelvis showed L lung airspace consolidation w RUL patchy consolidation. + distended and patulous esophagus w fluid and debris at level to the thoracic inlet. Gastric pouch is distended and fluid/debris filled. Jejunum below GJ area decompressed suggesting partial obstruction at GJ area. Pt's last EGD w GJ anastomosis dilation was done by Dr. Pruitt 08/2022. Allergies Allergy/AdvReac Type Severity Reaction Status Date / Time Sulfa (Sulfonamide Allergy Severe AIRWAY Verified 08/22/22 13:08 Antibiotics) SWELLING Home Medications Medication Instructions Recorded Confirmed Type metformin 500 mg tablet 500 mg PO HS 10/01/20 01/23/23 History nortriptyline 50 mg capsule 50 mg PO HS 10/01/20 01/23/23 History sucralfate 1 gram tablet 1 g PO ACHS 10/01/20 01/23/23 History aspirin 81 mg tablet,delayed 81 mg PO QAM 30 days #30 tabs 10/02/20 01/23/23 Rx release clopidogrel 75 mg tablet 75 mg PO QAM 30 days #30 tabs 10/02/20 01/23/23 Rx nitroglycerin 0.4 mg sublingual 0.4 mg sublingual DIRECTED PRN 05/01/21 01/23/23 History tablet Chest Pain esomeprazole magnesium 40 mg 40 mg PO BID #60 caps 05/04/21 01/23/23 Rx capsule,delayed release (Nexium) albuterol sulfate 90 mcg/actuation 1 inh inhalation Q4H PRN SHORT OF 09/21/21 01/23/23 History aerosol inhaler BREATH albuterol sulfate 5 mg/mL(0.5 %) 2.5 mg inhalation DIRECTED PRN 08/16/22 01/23/23 History solution for nebulization Shortness Of Breath Or Wheezing ondansetron HCl 4 mg tablet 4 mg PO Q8H PRN NAUSEA/VOMITING 08/16/22 01/23/23 History ascorbic acid (vitamin C) 100 mg 100 mg PO DAILY 01/23/23 01/23/23 History tablet (Vitamin C) atorvastatin 80 mg tablet 80 mg PO DAILY 01/23/23 01/23/23 History cyanocobalamin (vitamin B-12) 1,000 mcg Q3M 01/23/23 01/23/23 History 1,000 mcg/mL injection syringe levothyroxine 75 mcg tablet 75 mcg PO DAILY 01/23/23 01/23/23 History thiamine HCl (vitamin B1) 100 mg 100 mg PO DAILY 01/23/23 01/23/23 History tablet Patient History Medical History (Updated 01/23/23 @ 19:35 by Kamaljit Bonner MD) Alcoholic HX (NO PROBLEMS SINCE 2012) 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 Anemia, iron deficiency Anxiety and depression Arthritis Cardiomyopathy Esophagus disorder GERD (gastroesophageal reflux disease) History of esophageal dilatation (05/04/21) dilation of the stenosis of G-Jejunostomy History of stomach ulcers Hx of intestinal obstruction Hx of migraines Hx of myocardial infarction 09/2020 Hx of sleep apnea HOME SLEEP STUDY NORMAL>RECENT Hyperlipidemia Hypothyroidism Osteoarthritis Prediabetes Surgical History Abscess 2019 Hx of I&D of left axilla abscess. MRSA POSITIVE Family history of reaction to anesthesia SISTER>SWELLING ALL OVER ? DETAILS History of appendectomy History of cataract surgery RT/LEFT History of cholecystectomy History of colonoscopy History of esophagogastroduodenoscopy (EGD) History of heart artery stent 1 STENT PLACED 09/2020 History of hysterectomy History of tonsillectomy and adenoidectomy History of tooth extraction History of vascular access device CENTRAL LINE/REMOVED Hx of gastric bypass 20 YEARS AGO Nausea and vomiting after administration of anesthetic agent Family History (Updated 08/22/22 @ 13:41 by Deyanira Pandya RN) Mother Family history of diabetes mellitus Diabetes Heart disease Son Family history of diabetes mellitus Diabetes Stroke Brother Family history of diabetes mellitus Diabetes Heart disease Aunt Breast cancer Uncle Colorectal cancer Social History (Updated 08/22/22 @ 13:42 by Deyanira Pandya RN) Smoking Status: Former smoker Tobacco Type: Cigarettes packs per day: 1; Second Hand Exposure: No; Do You Dip or Chew Tobacco: No; Hx Alcohol Use: No Hx Substance Use: No Preferred Language: Luxembourgish Communication Ability: Effective Visual Impairment: No Limitations 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 Beliefs That Will Affect Care: None marital status: Current Living Situation: Alone current occupational status: disabled How many Children do You have: 2 Other Information That Helps Us Care for You: No Feels Safe at Home: Yes Safety Concerns: Feels Safe At This Time during the past year weight has: remained stable Assistive Devices: Cane and Walker Review of Systems Review of Systems: All systems reviewed & are unremarkable except as noted in HPI & below Physical Exam Constitutional: WD/WN, vitals as above well groomed, cooperative and comfortable Eyes: PERRL, conjunctivae normal, anicteric sclerae ENMT: external ear and nose normal, oropharynx normal Respiratory: normal respiratory effort, lungs clear to auscultation Cardiovascular: RRR, no murmur, no edema Gastrointestinal (Abdomen): normal bowel sounds, soft, nontender, no hepatosplenomegaly Skin: no rashes, warm and dry no jaundice Psychiatric: A+Ox3, euthymic affect Lymphatic: no lymphedema Results & Data Vital Signs (Past 12 Hours) Vital Signs Temp Pulse Resp BP Pulse Ox O2 Del Method 01/24/23 11:33 37.1 C 85 17 112/64 95 Room Air 01/24/23 11:22 79 16 94 Room Air 01/24/23 08:21 37.2 C 93 H 20 98/63 L 95 Room Air 01/24/23 07:33 80 16 93 Room Air 01/24/23 03:55 36.9 C 83 16 107/59 L 94 Room Air
[2023-01-24] MEDS: ONDANSETRON INJ 2 MG/ML 2 ML VIAL IV PRN (14:11)
--- NOTE | 2023-01-24 19:43 | Hospitalist Progress Note ---
Date of Service January 24, 2023 Assessment & Plan (1) Multifocal pneumonia: Plan: Possible related to aspiration due to vomiting CXR reviewed by me and agreed with radiologist report that showed Left midlung and left basilar airspace opacities are suggestive of multifocal pneumonia CT chest showed extensive airspace consolidation throughout the left lung as well as minimal patchy consolidation in the right upper lobe is typical for multifocal pneumonia. Received ceftriaxone, doxy and flagyl in the ER for concern for possible aspiration pneumonia with esophageal issues. Currently on IV abx with Unasyn and Guaifenesin Sputum cx pending saturated well on RA Speech eval Continue monitor closely (2) Metabolic acidosis, increased anion gap: Plan: -Possible related to vomiting and poor oral intake - received IV fluid - Anion gap closed - Continue monitor electrolytes (3) Esophagus disorder: (4) Anastomotic stenosis of gastrojejunostomy: Plan: - Currently on clear liquid diet - The gastric pouch is distended and filled with fluid/debris. The jejunum just below the gastrojejunostomy is decompressed, and this suggests at least partial obstruction at the gastrojejunostomy. - Gastro on board - Dr. Hairston for assistance with possible needs for dilation of the anastomotic stenosis of GJ in the setting of gastric bypass surgery - Plan for EGD tomorrow with possible dilation (5) CAD (coronary artery disease): Plan: -On baby aspirin and Plavix at baseline, resume once able to take p.o. (6) Hypertension: Plan: - BP is 120/68 currently - Stable (7) Hyperlipidemia: Plan: - resume statin once can tolerate po meds (8) Diabetes mellitus type 2, controlled: Plan: - Most Hba1C 5.8 - Continue monitor BS (9) Acute kidney injury superimposed on CKD: Plan: - Cr. 1.60 , BUN 26 - Continue gentle IVF - Creatinine improved to 1.[address] chest showed 4 mm pulmonary nodule at the right lung base. Will need to monitor outpatient as per Fleischner criteria DVT ppx: teds, scds CODE: Conditional, agreeable to intubation Disposition Plan to discharge once medically stable Admission and Anticipated Discharge Date Admission Date: January 23, 2023 Subjective Pt was seen and examined for follow up Lying in bed with no acute distress She said that she feels a little better today She was just started on clear liquid diet She said that she is having some chest wall discomfort with coughing Denies any fever, SOB, dizziness, palpitation Review of Systems Review of Systems: All systems reviewed & are unremarkable except as noted in Subjective Physical Exam Physical Exam: General- No acute distress Head- atraumatic Eyes- PERRL, EOMI, ENT- oropharynx clear Neck- supple, no JVD Lungs- clear to auscultation Heart- regular rhythm; no murmur Abdomen- normal bowel sounds, soft, +mild tender with deep palpation Extremities- no calf tenderness Neuro- alert, oriented x 3; PERRL, EOMI; no facial palsy; no dysarthria Skin- warm & dry Results & Data Results & Data Vital Signs (Past 12 Hours) Vital Signs Temp Pulse Pulse Resp BP Pulse Ox O2 Del Method 01/24/23 16:40 76 01/24/23 15:30 84 01/24/23 15:30 36.9 C 81 18 120/73 95 Room Air 01/24/23 15:06 Room Air 01/24/23 11:33 37.1 C 85 17 112/64 95 Room Air 01/24/23 11:22 79 16 94 Room Air 01/24/23 08:21 37.2 C 93 H 20 98/63 L 95 Room Air
[2023-01-24] MEDS: PANTOprazole 40 MG in SYRINGE 0 ML IV SCH (20:43)
[2023-01-24] MEDS: ACETAMINOPHEN 325 MG TAB PO PRN (20:50)
[2023-01-24] MEDS ORDERED: DEXTROSE 5% 1,000 ML IV SCH (21:00)
[2023-01-25] MEDS: AMPICILLIN/SULBACTAM SOD 3,000 MG in 0.9 % SODIUM CHLORIDE 100 ML IV SCH ×4 (02:20→20:55)
[2023-01-25] MEDS: INSULIN ASPART PER UNIT CHARGE SC SCH ×4 (08:08→20:58)
[2023-01-25] MEDS: ACETAMINOPHEN 325 MG TAB PO PRN (08:52)
[2023-01-25] MEDS: guaiFENesin 600 MG TABCR PO SCH ×2 (08:53→21:01)
[2023-01-25] MEDS: PANTOprazole 40 MG in SYRINGE 0 ML IV SCH (08:54)
--- NOTE | 2023-01-25 09:09 | Gastroenterology Progress Note ---
Date of Service January 25, 2023 Assessment & Plan (1) Multifocal pneumonia: Plan: Pt is a 67 yo female w hx of RYGB surgery who was admitted with multifocal pneumonia. Pt w hx of gastrojejunostomy anastomosis requiring series of dilations, most recently on 08/2022. She was having epigastric pressure discomfort, and vomitting few days ago. On CT chest/abd/pelvis, esophagus appears distended with fluid and debris at level to the thoracic inlet. Gastric pouch is distended and fluid/debris filled. Jejunum below GJ area decompressed suggesting partial obstruction at GJ area. No longer having nausea, abd pain or heartburn symptoms this AM. Tolerated sips of CL diet last night but NPO for EGD eval this morning. She is tolerating her secretions. - Unasyn IV for pneumonia - Protonix 40mg IV BID - NPO for EGD evaluation w possible dilation by Dr. Hairston today - Speech therapy eval after EGD completed Admission and Anticipated Discharge Date Admission Date: January 23, 2023 Supervising Physician Co-Signing Physician Notes I personally saw and evaluated the patient on 01/25/2023 with ERIC Diane and I agree with her findings and plan of care. 67 y/o F with hx of RYGB with history of anastomotic stricture that has been dilated multiple times most recently in 2020 who was admitted with multifocal pneumonia concerning for aspiration. On imaging stomach and esophagus were dilated with some fluid to the level of the thoracic inlet. Patient reports that prior to coming in she was having some N/V and abdominal pain. She was feeling full very quickly. She states this is what happens when her anastomosis needs to be dilated. She has been tolerating sips of liquids and her PO medications with out any concern for food bolus/obstruction clinically. She is endorsing some heartburn. On exam abdomen is soft, non-tender, and non-distended. Will plan for EGD today with potential dilation if needed. She was on plavix but last dose per patient was 5 days ago. Continue PPI 40 mg BID. Ashlyn Hairston, DO Gastroenterology and Hepatology Subjective Pt feels well, denies any more abd pain, n/v, heartburn. NPO for EGD today Review of Systems Review of Systems: All systems reviewed & are unremarkable except as noted in HPI & below Physical Exam Constitutional: WD/WN, vitals as above well groomed, cooperative and comfortable Eyes: PERRL, conjunctivae normal, anicteric sclerae ENMT: external ear and nose normal, oropharynx normal Respiratory: normal respiratory effort, lungs clear to auscultation Cardiovascular: RRR, no murmur, no edema Gastrointestinal (Abdomen): normal bowel sounds, soft, nontender, no hepatosplenomegaly Skin: no rashes, warm and dry no jaundice Psychiatric: A+Ox3, euthymic affect Lymphatic: no lymphedema Results & Data Vital Signs (Past 12 Hours) Vital Signs Temp Pulse Pulse Resp BP BP Pulse Ox 01/25/23 08:05 36.9 C 74 17 130/70 94 01/25/23 04:52 36.8 C 70 16 105/58 L 93 01/24/23 22:01 77 01/24/23 23:27 36.8 C 71 16 101/56 L 95 O2 Del Method 01/25/23 08:05 Room Air 01/25/23 04:52 Room Air 01/24/23 22:01 01/24/23 23:27 Room Air
[2023-01-25 10:14] LABS: Hematocrit (blood only) 32.3 % (37.0-47.0); Hemoglobin 10.2 g/dl (12.0-16.0); Mean Corpuscular Hemoglobin 26.9 pg (25.0-34.0); Mean Corpuscular Hgb Conc 31.6 g/dL (32.0-36.0); Mean Corpuscular Volume 85.2 fL (80.0-100.0); Mean Platelet Volume 9.3 fL (9.4-12.4); Platelet Count 205 K/uL (130-400); RDW Coefficient of Variation 24.1 % (11.5-14.5); RDW Standard Deviation 73.7 fL (36.4-46.3); Red Blood Count 3.79 M/uL (4.20-5.40); White Blood Count 11.02 K/ul (4.8-10.8)
--- NOTE | 2023-01-25 10:26 | Anesthesiology Consultation ---
Date of Service January 25, 2023 Assessment & Plan (1) Encounter for pre-operative examination: Chart Review Chart Review: Acceptable Risk for Surgery History Surgery Operation Date: 01/25/23 11:45 Proposed Procedures p Esophagogastroduodenoscopy - Ashlyn Hairston DO Operation Date: 01/25/23 17:00 Proposed Procedures p Esophagogastroduodenoscopy Marika - Ashlyn Hairston, Height/Weight Height: 5 ft 3 in Weight: 61.8 kg Allergies Allergy/AdvReac Type Severity Reaction Status Date / Time Sulfa (Sulfonamide Allergy Severe AIRWAY Verified 08/22/22 13:08 Antibiotics) SWELLING Medications Home Medications Medication Instructions Recorded Confirmed Last Taken metformin 500 mg tablet 500 mg PO HS 10/01/20 01/23/23 08/15/22 nortriptyline 50 mg capsule 50 mg PO HS 10/01/20 01/23/23 08/14/22 sucralfate 1 gram tablet 1 g PO ACHS 10/01/20 01/23/23 08/15/22 aspirin 81 mg tablet,delayed 81 mg PO QAM 30 days #30 tabs 10/02/20 01/23/23 08/15/22 release clopidogrel 75 mg tablet 75 mg PO QAM 30 days #30 tabs 10/02/20 01/23/23 08/15/22 nitroglycerin 0.4 mg sublingual 0.4 mg sublingual DIRECTED PRN 05/01/21 01/23/23 04/19/21 tablet Chest Pain esomeprazole magnesium 40 mg 40 mg PO BID #60 caps 05/04/21 01/23/23 08/15/22 capsule,delayed release (Nexium) albuterol sulfate 90 mcg/actuation 1 inh inhalation Q4H PRN SHORT OF 09/21/21 01/23/23 Unknown aerosol inhaler BREATH albuterol sulfate 5 mg/mL(0.5 %) 2.5 mg inhalation DIRECTED PRN 08/16/22 01/23/23 Unknown solution for nebulization Shortness Of Breath Or Wheezing ondansetron HCl 4 mg tablet 4 mg PO Q8H PRN NAUSEA/VOMITING 08/16/22 01/23/23 Unknown ascorbic acid (vitamin C) 100 mg 100 mg PO DAILY 01/23/23 01/23/23 Unknown tablet (Vitamin C) atorvastatin 80 mg tablet 80 mg PO DAILY 01/23/23 01/23/23 Unknown cyanocobalamin (vitamin B-12) 1,000 mcg Q3M 01/23/23 01/23/23 Unknown 1,000 mcg/mL injection syringe levothyroxine 75 mcg tablet 75 mcg PO DAILY 01/23/23 01/23/23 Unknown thiamine HCl (vitamin B1) 100 mg 100 mg PO DAILY 01/23/23 01/23/23 Unknown tablet Active Medications Generic Name Dose Route Start Last Admin Trade Name Freq PRN Reason Stop Dose Admin Acetaminophen 650 mg 01/23/23 20:43 01/25/23 08:52 Acetaminophen 325 Mg Tab PO 02/22/23 20:42 650 mg Q4H PRN Administration Moderate Pain (Scale 4, 5, 6) Guaifenesin 1,200 mg 01/23/23 21:00 01/25/23 08:53 Guaifenesin 600 Mg Tabcr PO 02/22/23 20:59 1,200 mg Q12 BABAK Administration Ampicillin Sodium/Sulbactam 108 mls @ 200 mls/hr 01/24/23 15:00 01/25/23 09:50 Sodium 3,000 mg/ Sodium IV 01/30/23 20:59 Infused Chloride Q6H BABAK Infusion Protocol Pantoprazole Sodium 40 mg/ 10 mls @ 5 mls/min 01/24/23 21:00 01/25/23 08:54 Syringe IV 02/23/23 20:59 5 mls/min BID BABAK Administration Dextrose 1,000 mls @ 50 mls/hr 01/24/23 21:00 01/24/23 21:28 D5w IV 01/25/23 16:59 50 mls/hr .Q20H BABAK Administration Insulin Aspart 0 units 01/24/23 16:30 01/25/23 08:08 Insulin Aspart Per Unit Charge SC 02/23/23 16:29 Not Given ACHS BABAK Ondansetron HCl 4 mg 01/23/23 20:43 01/24/23 14:11 Ondansetron Inj 2 Mg/Ml 2 Ml Vial IV 02/22/23 20:42 4 mg Q4H PRN Administration Nausea And Vomiting Past Medical History Medical History Alcoholic HX (NO PROBLEMS SINCE 2012) 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 Anemia, iron deficiency Anxiety and depression Arthritis Cardiomyopathy Esophagus disorder GERD (gastroesophageal reflux disease) History of esophageal dilatation (05/04/21) dilation of the stenosis of G-Jejunostomy History of stomach ulcers Hx of intestinal obstruction Hx of migraines Hx of myocardial infarction 09/2020 Hx of sleep apnea HOME SLEEP STUDY NORMAL>RECENT Hyperlipidemia Hypothyroidism Osteoarthritis Prediabetes Past Family History Family History Mother Family history of diabetes mellitus Diabetes Heart disease Son Family history of diabetes mellitus Diabetes Stroke Brother Family history of diabetes mellitus Diabetes Heart disease Aunt Breast cancer Uncle Colorectal cancer Past Surgical History Surgical History Abscess 2019 Hx of I&D of left axilla abscess. MRSA POSITIVE Family history of reaction to anesthesia SISTER>SWELLING ALL OVER ? DETAILS History of appendectomy History of cataract surgery RT/LEFT History of cholecystectomy History of colonoscopy History of esophagogastroduodenoscopy (EGD) History of heart artery stent 1 STENT PLACED 09/2020 History of hysterectomy History of tonsillectomy and adenoidectomy History of tooth extraction History of vascular access device CENTRAL LINE/REMOVED Hx of gastric bypass 20 YEARS AGO Nausea and vomiting after administration of anesthetic agent Social History Smoking Status: Former smoker tobacco type: cigarettes Do You Dip or Chew Tobacco: No Hx Alcohol Use: No Alcohol type: beer and hard liquor alcohol intake frequency: a few times a month Hx Substance Use: No substance use type: does not use Physical Exam Vital Signs Last Vital Signs Temp 36.9 C 01/25/23 08:05 Pulse 74 01/25/23 08:05 Resp 17 01/25/23 08:05 BP 130/70 01/25/23 08:05 Pulse Ox 94 01/25/23 08:05 O2 Del Method Room Air 01/25/23 08:05 O2 Flow Rate 2 01/23/23 16:00 Testing Laboratory Results 01/25/23 09:41 Hemoglobin A1c 5.8 % (4.5-5.6) H 01/24/23 06:41 Urine Color Dark Yellow 01/24/23 Unknown Urine Appearance Clear (Clear) 01/24/23 Unknown Urine pH 5.5 (4.5-7.5) 01/24/23 Unknown Ur Specific [place] 1.026 (1.000-1.030) 01/24/23 Unknown Urine Protein 1+ (Negative) H 01/24/23 Unknown Urine Glucose (UA) Negative (Negative) 01/24/23 Unknown Urine Ketones 3+ (Negative) H 01/24/23 Unknown Urine Nitrite Negative (Negative) 01/24/23 Unknown Ur Leukocyte Esterase Trace (Negative) H 01/24/23 Unknown Urine WBC (Auto) 5-10 /hpf (0-5) H 01/24/23 Unknown Urine RBC (Auto) 0-4 /hpf (0-4) 01/24/23 Unknown U Hyaline Cast (Auto) 5-10 /lpf (0-5) H 01/24/23 Unknown U Epithel Cells (Auto) >30 /lpf (0-5) H 01/24/23 Unknown Urine Bacteria (Auto) 1+ (Negative) H 01/24/23 Unknown 01/23/23 14:35 Aerobic Blood Culture - Preliminary Blood No growth in Aerobic bottle after 24 hours. Anaerobic Blood Culture - Preliminary No growth in Anaerobic bottle after 24 hours. 01/23/23 14:35 Aerobic Blood Culture - Preliminary Blood No growth in Aerobic bottle after 24 hours. Anaerobic Blood Culture - Preliminary No growth in Anaerobic bottle after 24 hours. 01/25/23 06:15 POC Glucose 90 Electrocardiogram Date: 01/23/23 Findings: + NSR @ (99), + NSST changes and + RBBB (incomplete) Chest X-Ray Date: 01/23/23 possible left mid lung opacity / likely pneumonia Echocardiogram Date: 05/01/21 EF: 55-60 LV Function: normal Valvular Disease: + no significant valvular disease
[2023-01-25 10:31] LABS: BUN Creatinine Ratio 17.4 (10-20); Calcium 8.9 mg/dl (8.6-10.3); Creatinine Clr Calc Pharmacy 53.2 ml/min; Est GFR (African American) 81.6 ml/min; Est GFR (Non-African American) 70.4 ml/min; Potassium 3.3 mmol/L (3.5-5.1)
[2023-01-25] MEDS ORDERED: MIDAZOLAM HCL 1 MG/ML 2ML VIAL ONE (10:37)
[2023-01-25] MEDS ORDERED: PROPOFOL IV EMULSION 10 MG/ML 20 ML VIAL IV ONE (10:37)
[2023-01-25] MEDS ORDERED: DEXAMETHASONE SOD INJ 4 MG/ML VIAL ONE (10:37)
[2023-01-25] MEDS ORDERED: ONDANSETRON INJ 2 MG/ML 2 ML VIAL ONE (10:37)
[2023-01-25] MEDS ORDERED: fentaNYL citrate PF 100 MCG/2 ML VIAL ONE (10:37)
[2023-01-25] MEDS ORDERED: ROCURONIUM BROMIDE 10 MG/ML 5 ML VIAL IV ONE (10:37)
[2023-01-25] MEDS ORDERED: SUCCINYLCHOLINE CHLORIDE 20 MG/ML 10 ML VIAL IV ONE (10:37)
[2023-01-25] MEDS ORDERED: LIDOCAINE 2% MPF LOCAL 5 ML VIAL ONE (10:37)
--- NOTE | 2023-01-25 12:20 | GI REPORT ---
Patient Name: Nicole Kelley Procedure Date: 01/25/2023 11:41 AM Date of : 1955 Admit Type: Inpatient Age: 67 Gender: Female Attending MD: Ashlyn Hairston DO, Procedure: Upper GI endoscopy Providers: Ashlyn Hairston DO Referring MD: MYRIAM VIRGEN Indications: Epigastric abdominal pain, Abnormal CT of the GI tract, Nausea with vomiting Patient Profile: This is a 67 year old female. Refer to note in patient chart for documentation of history and physical. Medicines: General Anesthesia Complications: No immediate complications. Estimated Blood Loss: Estimated blood loss was minimal. Procedure: Pre-Anesthesia Assessment: - Prior to the procedure, a History and Physical was performed, and patient medications and allergies were reviewed. The risks and benefits of the procedure and the sedation options and risks were discussed with the patient. All questions were answered and informed consent was obtained. Patient identification and proposed procedure were verified by the physician, the nurse and the separator tender in the procedure room. Mental Status Examination: alert and oriented. Airway Examination: Mallampati Class II (the uvula but not tonsillar pillars visualized). Respiratory Examination: clear to auscultation. CV Examination: RRR, no murmurs, no S3 or S4. Prophylactic Antibiotics: The patient does not require prophylactic antibiotics. Prior Anticoagulants: The patient has taken Plavix (clopidogrel), last dose was 4 days prior to procedure. ASA Grade Assessment: III - A patient with severe systemic disease. After reviewing the risks and benefits, the patient was deemed in satisfactory condition to undergo the procedure. The anesthesia plan was to use general anesthesia. Immediately prior to administration of medications, the patient was re-assessed for adequacy to receive sedatives. The physical status of the patient was re-assessed after the procedure. After obtaining informed consent, the endoscope was passed under direct vision. Throughout the procedure, the patient's blood pressure, pulse, and oxygen saturations were monitored continuously. The Scope was introduced through the mouth, and advanced to the second part of duodenum. The upper GI endoscopy was accomplished without difficulty. The patient tolerated the procedure well. Findings: The Z-line was regular and was found 35 cm from the incisors. The examined esophagus was normal. Evidence of a Reno-en-Y gastrojejunostomy was found. The gastrojejunal anastomosis was characterized by severe stenosis. This was traversed. The ygqzi-gy-esuuiuh limb was characterized by healthy appearing mucosa. Moderate inflammation was found in the entire examined stomach. The examined jejunum was normal. Impression: - Z-line regular, 35 cm from the incisors. - Normal esophagus. 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 This stenosis was dilated with the passage of the endoscope which resulted in moderate mucosal disruption with some bleeding but improved narrowing. No food or fluid was found in the stomach or esophagus despite CT imaging. - Gastritis. - Normal examined jejunum. - No specimens collected. Recommendation: - [facility] patient to [facility]. - Would recommend liquid diet until further dilations can be performed to subsequently open the stenosis further. - Continue present medications. - PPI 40 mg BID - Will place order for repeat EGD in 2 weeks for ongoing dilation as this will likely require a few treatments. Ashlyn Hairston, 01/25/2023 12:19:38 PM Note Initiated On: 01/25/2023 11:41 AM Number of Addenda: 0 I attest to the content of the Intraoperative Record and orders documented therein, exceptions below {[id number]}
--- NOTE | 2023-01-25 13:05 | Anesthesiology Progress Note ---
Date of Service January 25, 2023 Anesthesia Post Procedure Vital Signs Vital Signs: Temp Pulse Pulse Pulse Resp BP BP 01/25/23 12:45 70 12 127/65 01/25/23 12:35 36.6 C 76 12 117/62 01/25/23 12:25 74 18 124/64 01/25/23 12:15 36.2 C L 79 18 127/66 01/25/23 10:42 36.8 C 82 20 132/68 01/25/23 08:05 36.9 C 74 17 130/70 01/25/23 04:52 36.8 C 70 16 105/58 L 01/24/23 22:01 77 01/24/23 23:27 36.8 C 71 16 101/56 L 01/24/23 20:00 01/24/23 19:58 36.9 C 86 18 99/49 L 01/24/23 16:40 76 01/24/23 15:30 84 01/24/23 15:30 36.9 C 81 18 120/73 01/24/23 15:06 Pulse Ox O2 Del Method O2 Flow Rate 01/25/23 12:45 95 Room Air 01/25/23 12:35 94 Room Air 01/25/23 12:25 99 Oxymask 11 01/25/23 12:15 97 Oxymask 11 01/25/23 10:42 96 Room Air 01/25/23 08:05 94 Room Air 01/25/23 04:52 93 Room Air 01/24/23 22:01 01/24/23 23:27 95 Room Air 01/24/23 20:00 Room Air 01/24/23 19:58 91 Room Air 01/24/23 16:40 01/24/23 15:30 01/24/23 15:30 95 Room Air 01/24/23 15:06 Room Air Pain Intensity Chest: Pain Intensity: 0 Transfer of Care Handoff Completed per policy Notes Mental Status: alert / awake / arousable Patient Amnestic to Procedure: Yes Nausea / Vomiting: adequately controlled Pain: adequately controlled Airway Patency, RR, SpO2: stable & adequate BP & HR: stable & adequate Hydration State: stable & adequate Anesthetic Complications: no major complications apparent
[2023-01-25] MEDS ORDERED: POTASSIUM CHLORIDE CRTAB 20 MEQ TABCR PO STA (13:28)
[2023-01-25] MEDS: PANTOprazole 40 MG TAB PO SCH (21:01)
--- NOTE | 2023-01-25 23:00 | Hospitalist Progress Note ---
Date of Service January 25, 2023 Assessment & Plan (1) Multifocal pneumonia: Plan: Possible related to aspiration due to vomiting CXR reviewed by me and agreed with radiologist report that showed Left midlung and left basilar airspace opacities are suggestive of multifocal pneumonia CT chest showed extensive airspace consolidation throughout the left lung as well as minimal patchy consolidation in the right upper lobe is typical for multifocal pneumonia. Received ceftriaxone, doxy and flagyl in the ER for concern for possible aspiration pneumonia with esophageal issues. Currently on IV abx with Unasyn and Guaifenesin blood cx no growth saturated well on RA Speech eval Continue monitor closely (2) Metabolic acidosis, increased anion gap: Plan: -Possible related to vomiting and poor oral intake - received IV fluid - Anion gap closed - Continue monitor electrolytes (3) Esophagus disorder: (4) Anastomotic stenosis of gastrojejunostomy: Plan: - Currently on clear liquid diet - The gastric pouch is distended and filled with fluid/debris. The jejunum just below the gastrojejunostomy is decompressed, and this suggests at least partial obstruction at the gastrojejunostomy. - Gastro on board - Dr. Hairston for assistance with possible needs for dilation of the anastomotic stenosis of GJ in the setting of gastric bypass surgery - S/P EGD on today showed gastritis, GJ anastomosis stenosis, dilated w passage of scope w moderate mucosal disruption. - GI recommended to keep on FL diet until repeat OP EGD on 02/13/2023 w possible repeat dilation (5) CAD (coronary artery disease): Plan: -On baby aspirin and Plavix at baseline, resume once able to take p.o. (6) Hypertension: Plan: - BP is 120/68 currently - Stable (7) Hyperlipidemia: Plan: - resume statin once can tolerate po meds (8) Diabetes mellitus type 2, controlled: Plan: - Most Hba1C 5.8 - Continue monitor BS (9) Acute kidney injury superimposed on CKD: Plan: - Cr. 1.60 , BUN 26 - Continue gentle IVF - Creatinine improved to 1.[address] chest showed 4 mm pulmonary nodule at the right lung base. Will need to monitor outpatient as per Fleischner criteria DVT ppx: teds, scds CODE: Conditional, agreeable to intubation Disposition Plan to discharge once medically stable Admission and Anticipated Discharge Date Admission Date: January 23, 2023 Subjective Pt was seen and examined for follow up Lying in bed with no acute distress Pt said that she feels alot better Denies any chest pain, palpitation, dizziness and SOB Review of Systems Review of Systems: All systems reviewed & are unremarkable except as noted in Subjective Physical Exam Physical Exam: General- No acute distress Head- atraumatic Eyes- PERRL, EOMI, ENT- oropharynx clear Neck- supple, no JVD Lungs- clear to auscultation Heart- regular rhythm; no murmur Abdomen- normal bowel sounds, soft, +mild tender with deep palpation Extremities- no calf tenderness Neuro- alert, oriented x 3; PERRL, EOMI; no facial palsy; no dysarthria Skin- warm & dry Results & Data Results & Data Vital Signs (Past 12 Hours) Vital Signs Temp Pulse Pulse Pulse Resp BP BP 01/25/23 20:00 01/25/23 20:00 36.8 C 75 18 129/74 01/25/23 17:00 75 01/25/23 15:37 36.6 C 86 20 128/78 01/25/23 14:30 36.9 C 95 H 21 130/77 01/25/23 12:45 70 12 127/65 01/25/23 12:35 36.6 C 76 12 117/62 01/25/23 12:25 74 18 124/64 01/25/23 12:15 36.2 C L 79 18 127/66 Pulse Ox O2 Del Method O2 Flow Rate 01/25/23 20:00 Room Air 01/25/23 20:00 93 Room Air 01/25/23 17:00 01/25/23 15:37 92 Room Air 01/25/23 14:30 92 Room Air 01/25/23 12:45 95 Room Air 01/25/23 12:35 94 Room Air 01/25/23 12:25 99 Oxymask 11 01/25/23 12:15 97 Oxymask 11
[2023-01-26] MEDS: AMPICILLIN/SULBACTAM SOD 3,000 MG in 0.9 % SODIUM CHLORIDE 100 ML IV SCH ×2 (02:46→08:49)
[2023-01-26] MEDS: INSULIN ASPART PER UNIT CHARGE SC SCH ×2 (08:04→12:11)
[2023-01-26] MEDS: guaiFENesin 600 MG TABCR PO SCH (08:53)
[2023-01-26] MEDS: PANTOprazole 40 MG TAB PO SCH (08:54)
--- NOTE | 2023-01-26 09:47 | Gastroenterology Progress Note ---
Date of Service January 26, 2023 Assessment & Plan (1) Multifocal pneumonia: Plan: Pt is a 67 yo female w hx of RYGB surgery who was admitted with multifocal pneumonia. Pt w hx of gastrojejunostomy anastomosis requiring series of dilations, most recently on 08/2022. She was having epigastric pressure discomfort, and vomitting few days ago. On CT chest/abd/pelvis, esophagus appears distended with fluid and debris at level to the thoracic inlet. Gastric pouch is distended and fluid/debris filled. Jejunum below GJ area decompressed suggesting partial obstruction at GJ area. EGD on 01/25: found to have gastritis, GJ anastomosis stenosis, dilated w passage of scope w moderate mucosal disruption. She is tolerating liquid consistency diet. Denies abd pain, n/v. - Unasyn IV for pneumonia - Protonix 40mg PO BID - Keep on FL diet until repeat OP EGD on 02/13/2023 w possible repeat dilation - GI to sign off; no contraindication for DC home today Admission and Anticipated Discharge Date Admission Date: January 23, 2023 Supervising Physician Co-Signing Physician Notes I personally saw and evaluated the patient on 01/26/2023 with ERIC Diane and I agree with her findings and plan of care. 67 y/o F with hx of RYGB with history of anastomotic stricture that has been dilated multiple times most recently in 2020 who was admitted with multifocal pneumonia concerning for aspiration. On imaging stomach and esophagus were dilated with some fluid to the level of the thoracic inlet. Patient reports that prior to coming in she was having some N/V and abdominal pain. She was feeling full very quickly. She states this is what happens when her anastomosis needs to be dilated. She underwent EGD on 01/25 with dilation of GJ stenosis. She reports today that her symptoms are greatly improved and she no longer has any nausea or vomiting. Tolerating a liquid diet without any issues. On exam abdomen is soft, non-tender, and non-distended. She should continue on liquid diet on discharge. Continue PPI 40 mg BID. Arranging outpatient EGD in 2 weeks for further dilation. Patient reports they already called her to schedule this for 02/13. GI will sign off. She is ok from our standpoint to be discharged home. Ashlyn Hairston, DO Gastroenterology and Hepatology Subjective Pt states she feels like " a new person". No having abd pain, n/v. Tolerating liquid consistency diet. Ready to go home. Review of Systems Review of Systems: All systems reviewed & are unremarkable except as noted in HPI & below Physical Exam Constitutional: WD/WN, vitals as above well groomed, cooperative and comfortable Eyes: PERRL, conjunctivae normal, anicteric sclerae ENMT: external ear and nose normal, oropharynx normal Respiratory: normal respiratory effort, lungs clear to auscultation Cardiovascular: RRR, no murmur, no edema Gastrointestinal (Abdomen): normal bowel sounds, soft, nontender, no hepatosplenomegaly Skin: no rashes, warm and dry no jaundice Psychiatric: A+Ox3, euthymic affect Lymphatic: no lymphedema Results & Data Vital Signs (Past 12 Hours) Vital Signs Temp Pulse Pulse Resp BP Pulse Ox O2 Del Method 01/26/23 07:22 36.7 C 65 18 149/81 H 95 Room Air 01/26/23 04:00 36.7 C 76 18 143/78 H 96 Room Air 01/25/23 22:04 69 01/25/23 23:09 36.7 C 69 18 128/68 94 Room Air
[2023-01-26 10:25] LABS: Basophils # (auto) 0.01 K/uL (0-0.2); Basophils % (auto) 0.1 %; Eosinophils # (auto) 0.02 K/uL (0-0.50); Eosinophils % (auto) 0.2 %; Hematocrit (blood only) 31.7 % (37.0-47.0); Hemoglobin 10.2 g/dl (12.0-16.0); Immature Granulocytes # (auto) 0.02 K/uL (0.01-0.20); Immature Granulocytes % (auto) 0.2 %; Lymphocytes # (auto) 1.25 K/uL (1.2-3.4); Mean Corpuscular Hemoglobin 26.6 pg (25.0-34.0); Mean Corpuscular Hgb Conc 32.2 g/dL (32.0-36.0); Mean Corpuscular Volume 82.6 fL (80.0-100.0); Mean Platelet Volume 9.4 fL (9.4-12.4); Monocytes # (auto) 0.34 K/uL (0.11-0.59); Monocytes % (auto) 3.8 %; Neutrophils # (auto) 7.31 K/uL (1.40-6.50); Neutrophils % (auto) 81.7 %; Platelet Count 210 K/uL (130-400); RDW Coefficient of Variation 22.3 % (11.5-14.5); RDW Standard Deviation 65.9 fL (36.4-46.3); Red Blood Count 3.84 M/uL (4.20-5.40); White Blood Count 8.95 K/ul (4.8-10.8)
[2023-01-26 10:44] LABS: Anisocytosis Present; Echinocytes 2+
--- NOTE | 2023-01-26 17:05 | Discharge Summary ---
Date of Service January 26, 2023 Admission HPI Per Admitting Provider This is a 67-year-old female with PMHx of history of esophageal narrowing, anastomotic stenosis of gastrojejunostomy, status post gastric bypass surgery, DM type II, CAD, history of alcohol use in remission, CKD stage III, anemia and history of tobacco abuse who presents to the ER with worsening shortness of breath and pain with inspiration. Patient is found on CT of the chest to have multifocal pneumonia in the left side and right upper lobe, 4 mm pulmonary nodule is seen. She has a procalcitonin of 5.50, WBC 12.56, afebrile, O2 sats are 94% on 2 L. Pt states her vomiting started last Sunday. She states that every time she takes anything orally, she throws it back up. She uses peptobismol because this helps her throw up which she thought she would give her some relief, and doesn't think there is anything left in her esophagus or stomach at this point. Pt hasn't taken her routine meds since Sunday. She has complaints of central chest pain which started last night, she was able to go to bed last night but was restless and continued to have this deep chest pain into this morning, which is worsened with deep inspiration. Nitro tab x 1 was taken around lunch time and didn't help anything. Pt thinks this is all from her stomach. She reports having having chills, but denies fever. At home she does not require supplemental O2, currently is on 2 L. She felt incredible weakness when she was attempted to walk to her bathroom, as well as lightheaded or dizziness. She has hx of falling in the past, but denies any since worsening illness this past Sunday. Her left wrist is fractured and has a left rotator cuff tear, and anticipates having this surgery later in the month. Pt trialed ibuprofen for generalized body aches without alleviation. Today she called 911 herself today because her symptoms were so bad and was scared. Her sister in law lives locally and would be her point of contact. Esophagus dilation has been done at least 10 times, has been done by Dr. Allen most recently last done per our record in Sep 2021. She has had it done as an outpatient more recently at [facility]. Admission Exam Per Admitting Provider Constitutional: No fever, sweats, but +chills, + lightheadedness and dizziness Eyes: No diplopia, no worsening or blurred vision ENT: normal hearing, no trouble swallowing Respiratory: + shortness of breath as per HPI, +cough, minimal sputum, +dyspnea at rest and on exertion Cardiovascular: As per HPI Abdomen: As per HPI, + nausea/vomiting, no diarrhea or constipation, last BM was today Musculoskeletal: No joint pain, calf pain, swelling Neurologic: No weakness, numbness/tingling, or balance problems Psychiatric: No anxiety or depression Skin: No rash or itch Principal Diagnosis Multifocal pneumonia: Metabolic acidosis, increased anion gap: Esophagus disorder: Anastomotic stenosis of gastrojejunostomy: CAD (coronary artery disease): Hypertension: Diabetes mellitus type 2, controlled: Acute kidney injury superimposed on CKD: Lung Nodule Discharge Exam General- No acute distress Head- atraumatic Eyes- PERRL, EOMI, ENT- oropharynx clear Neck- supple, no JVD Lungs- clear to auscultation Heart- regular rhythm; no murmur Abdomen- normal bowel sounds, soft, +mild tender with deep palpation Extremities- no calf tenderness Neuro- alert, oriented x 3; PERRL, EOMI; no facial palsy; no dysarthria Skin- warm & dry Discharge Data Allergies Allergy/AdvReac Type Severity Reaction Status Date / Time Sulfa (Sulfonamide Allergy Severe AIRWAY Verified 08/22/22 13:08 Antibiotics) SWELLING Consultations 01/23/23 16:56 Consult Gastroenterology Routine 01/23/23 17:06 ED Decision to Admit Stat Procedures Performed Operation Date: 01/25/23 17:00 <No data on this case meets the specified criteria> Ordered Studies 01/23/23 14:29 CT chest diagnostic wo con Stat 01/23/23 16:32 CT Abd and Pelvis [CT abd pelvis wo con] Stat Laboratory Results WBC 8.95 K/ul (4.8-10.8) 01/26/23 09:44 RBC 3.84 M/uL (4.20-5.40) L 01/26/23 09:44 Hgb 10.2 g/dl (12.0-16.0) L 01/26/23 09:44 Hct 31.7 % (37.0-47.0) L 01/26/23 09:44 MCV 82.6 fL (80.0-100.0) 01/26/23 09:44 MCH 26.6 pg (25.0-34.0) 01/26/23 09:44 MCHC 32.2 g/dL (32.0-36.0) 01/26/23 09:44 RDW Std Deviation 65.9 fL (36.4-46.3) H 01/26/23 09:44 RDW Coeff of Taye 22.3 % (11.5-14.5) H 01/26/23 09:44 Plt Count 210 K/uL (130-400) 01/26/23 09:44 MPV 9.4 fL (9.4-12.4) 01/26/23 09:44 Immature Gran % (Auto) 0.2 % 01/26/23 09:44 Neut % (Auto) 81.7 % 01/26/23 09:44 Lymph % (Auto) 14.0 % 01/26/23 09:44 Reagan % (Auto) 3.8 % 01/26/23 09:44 Eos % (Auto) 0.2 % 01/26/23 09:44 Baso % (Auto) 0.1 % 01/26/23 09:44 Neut # (Auto) 7.31 K/uL (1.40-6.50) H 01/26/23 09:44 Lymph # (Auto) 1.25 K/uL (1.2-3.4) 01/26/23 09:44 Reagan # (Auto) 0.34 K/uL (0.11-0.59) 01/26/23 09:44 Eos # (Auto) 0.02 K/uL (0-0.50) 01/26/23 09:44 Baso # (Auto) 0.01 K/uL (0-0.2) 01/26/23 09:44 Immature Gran # (Auto) 0.02 K/uL (0.01-0.20) 01/26/23 09:44 Polychromasia 1+ 01/23/23 13:45 Anisocytosis Present 01/26/23 09:44 Echinocytes 2+ 01/26/23 09:44 Sodium 140 mmol/L (136-145) 01/25/23 09:41 Potassium 3.3 mmol/L (3.5-5.1) L 01/25/23 09:41 Chloride 105 mmol/L (98-107) 01/25/23 09:41 Carbon Dioxide 26 mmol/L (21-32) 01/25/23 09:41 Anion Gap 9 (3-11) 01/25/23 09:41 BUN 15 mg/dl (6-23) 01/25/23 09:41 Creatinine 0.86 mg/dl (0.6-1.2) D 01/25/23 09:41 Est Cr Clr Drug Dosing 53.2 ml/min 01/25/23 09:41 Est GFR ( Amer) 81.6 ml/min 01/25/23 09:41 Est GFR (Non-Af Amer) 70.4 ml/min 01/25/23 09:41 BUN/Creatinine Ratio 17.4 (10-20) 01/25/23 09:41 Glucose 85 mg/dl (70-99(Fasting)) 01/25/23 09:41 POC Glucose 117 mg/dl (70-99) H 01/26/23 11:39 Estimat Average Glucose 120 mg/dl 01/24/23 06:41 Hemoglobin A1c 5.8 % (4.5-5.6) H 01/24/23 06:41 Osmolality 310 mOsm/kg (280-300) H 01/23/23 17:48 Lactate 1.6 mmol/L (0.4-2.0) 01/23/23 14:35 Calcium 8.9 mg/dl (8.6-10.3) 01/25/23 09:41 Phosphorus 3.8 mg/dl (2.5-4.9) 01/24/23 06:41 Magnesium 1.8 mg/dl (1.7-2.4) 01/24/23 06:41 Total Bilirubin 0.9 mg/dl (0.2-1.0) 01/23/23 13:45 AST 20 U/L (13-39) 01/23/23 13:45 ALT 10 U/L (7-52) 01/23/23 13:45 Alkaline Phosphatase 71 U/L (34-104) 01/23/23 13:45 Troponin I High Sens 6.6 pg/ml (0-14) 01/23/23 13:45 Total Protein 6.6 gm/dl (6.0-8.3) 01/23/23 13:45 Albumin 4.1 gm/dl (3.4-5.0) 01/23/23 13:45 Globulin 2.5 gm/dl (2.5-4.0) 01/23/23 13:45 Albumin/Globulin Ratio 1.6 (0.9-2) 01/23/23 13:45 Lipase 17 U/L (11-82) 01/23/23 13:45 Procalcitonin 5.50 ng/ml (0-0.5) H 01/23/23 14:35 TSH 1.730 uIu/ml (0.300-4.500) 01/23/23 13:45 Urine Color Dark Yellow 01/24/23 Unknown Urine Appearance Clear (Clear) 01/24/23 Unknown Urine pH 5.5 (4.5-7.5) 01/24/23 Unknown Ur Specific [place] 1.026 (1.000-1.030) 01/24/23 Unknown Urine Protein 1+ (Negative) H 01/24/23 Unknown Urine Glucose (UA) Negative (Negative) 01/24/23 Unknown Urine Ketones 3+ (Negative) H 01/24/23 Unknown Urine Blood Negative (Negative) 01/24/23 Unknown Urine Nitrite Negative (Negative) 01/24/23 Unknown Urine Bilirubin Negative (Negative) 01/24/23 Unknown Urine Urobilinogen Negative (Negative) 01/24/23 Unknown Ur Leukocyte Esterase Trace (Negative) H 01/24/23 Unknown Urine WBC (Auto) 5-10 /hpf (0-5) H 01/24/23 Unknown Urine RBC (Auto) 0-4 /hpf (0-4) 01/24/23 Unknown U Hyaline Cast (Auto) 5-10 /lpf (0-5) H 01/24/23 Unknown U Epithel Cells (Auto) >30 /lpf (0-5) H 01/24/23 Unknown Urine Bacteria (Auto) 1+ (Negative) H 01/24/23 Unknown Ur Renal Epithelial Cell Not Reportable 01/24/23 Unknown Urine Mucus Present (None Prsent) A 01/24/23 Unknown SARS-CoV-2, RNA, NAAT NEGATIVE (NEGATIVE) 01/23/23 14:03 Impressions Chest X-Ray 01/23/23 13:53 XR chest 1V portable HISTORY: 67 years-old Female weakness acute weakness COMPARISON: Chest CT 08/16/2022 TECHNIQUE: AP view of the chest FINDINGS: Limited exam secondary to patient rotation. The heart is upper limits of normal in size. No pneumothorax. Probable trace left pleural effusion. Multifocal dense airspace opacities are noted within the left midlung and left lung base. Degenerative changes of the shoulders and spine. IMPRESSION: 1. Limited exam secondary to positioning. 2. Left midlung and left basilar airspace opacities are suggestive of multifocal pneumonia. Follow-up imaging after treatment course is needed to document resolution ACT 112: Negative or not required by law. The above report was generated using voice recognition software. It may contain grammatical, syntax or spelling errors. Electronically signed by: Mark Nina M.D. 01/23/2023 2:[address] 01/23/23 14:29 CT SCAN OF THE CHEST WITHOUT IV CONTRAST CLINICAL HISTORY: Atypical chest pain. Airspace consolidation seen by chest x- ray. COMPARISON STUDY: Chest CT dated 08/16/2022 and chest x-ray dated 01/23/2023. TECHNIQUE: CT scan of the thorax was performed from the thoracic inlet to the upper abdomen. Images are reviewed in the axial, sagittal, and coronal planes. IV contrast was not administered for this examination as per the referring clini sixto. A dose lowering technique was utilized adhering to the principles of ALARA. The examination is degraded by motion artifact, as well as by streak artifact from the left arm which cannot be elevated above the chest. CT DOSE: 259.33 mGycm FINDINGS: Thyroid: Atrophic and heterogeneous. Thoracic aorta: There is moderate atherosclerotic calcification of the thoracic aorta, which is normal in caliber and demonstrates standard 3-vessel arch anatomy. Heart: The heart is normal in size and without pericardial effusion. The coronary arteries are densely calcified. Lungs and pleural spaces: The trachea and central airways appear clear. No pleural effusion is identified. Multifocal airspace consolidation is seen throughout the left lung, most confluent in the left lower lobe. Minimal patchy airspace consolidation is seen in the right upper lobe. Scarring/atelectasis is seen at the right lung base. A 4 mm right lower lobe pulmonary nodule is seen on image #188. Mediastinum: There is no mediastinal lymphadenopathy. Bernie: Not well assessed without IV contrast. Axillae: There is no axillary lymphadenopathy. Upper abdomen: Postsurgical change is noted in the partially visualized stomach. The esophagus is distended and patulous, and filled with food/debris to the level of the thoracic inlet. Skeletal structures: The skeletal structures are osteopenic. Degenerative change and kyphoscoliosis is noted in the thoracic spine. No lytic or blastic bony lesions are seen. There is chronic appearing deformity of the distal left clavicle. There are also numerous chronic appearing/healed bilateral rib fractures. IMPRESSION: 1. Extensive airspace consolidation throughout the left lung as well as minimal patchy consolidation in the right upper lobe is typical for multifocal pneumonia. Clinical correlation will be required and radiographic follow-up to resolution is recommended. 2. Postsurgical change is noted in the partially visualized stomach. The esophagus is distended/patulous and filled with fluid/debris to the level of the thoracic inlet. This places the patient at significant risk for aspiration, and this is likely the etiology of the pneumonia. 3. There is a 4 mm pulmonary nodule at the right lung base. This is pathologically indeterminate and should be followed as per the Fleischner criteria. 4. Advanced coronary artery calcification. 5. Additional findings as above. Please refer to below summary of Fleischner criteria recommendations for follow- up of incidental CT nodules (Rachelle Hussein, Guidelines for management of small pulmonary nodules detected on CT scans: A statement from the Fleischner Society, Radiology 237: [phone].) SOLID NODULES Solitary nodule size: <6 mm * low risk patients: no follow-up needed * high risk patients: optional CT at 12 months Solitary nodule size: 6-8 mm * low risk patients: follow-up at 6-12 months, then consider further follow-up at 18-24 months * high risk patients: initial follow-up CT at 6-12 months and then at 18-24 months if no change Solitary nodule size: >8 mm * either low or high risk patients - consider follow-up CT at 3 months, and/or CT-PET, and/or biopsy Multiple nodules size: <6 mm * low risk patients: no routine follow-up * high risk patients: optional CT at 12 months Multiple nodules size: 6-8 mm * low risk patients: follow-up at 3-6 months, then consider further follow-up at 18-24 months * high risk patients: follow-up at 3-6 months, then at 18-24 months if no change Multiple nodules size: >8 mm * low risk patients: follow-up at 3-6 months, then consider further follow-up at 18-24 months * high risk patients: follow-up at 3-6 months, then at 18-24 months if no change Note: newly detected indeterminate nodule in persons 35 years of age or older. * low risk patients: minimal or absent history of smoking and/or other known risk factors * high risk patients: history of smoking or of other known risk factors (e.g. first degree relative with lung cancer, or exposure to asbestos, radon, uranium) * if a nodule up to 8 mm is partly solid or is ground glass further follow-up is required after 24 months to exclude possible slow growing adenocarcinoma (YOLY) SUBSOLID NODULES Solitary pure ground-glass nodule * nodule size <6 mm - no CT follow-up required * nodule size >=6 mm - follow-up CT at 6-12 months, then every 2 years until 5 years Solitary part-solid nodule * nodule size <6 mm - no CT follow-up required * nodule size >=6 mm - follow-up CT at 3-6 months. If unchanged, and solid component remains <6 mm, then annual follow-up for 5 years Multiple subsolid nodules * nodule size <6 mm - follow-up CT at 3-6 months, consider further follow-up at 2 and 4 years if stable * nodule size >=6 mm - follow-up CT at 3-6 months, subsequent management based on the most suspicious nodule(s) ACT 112: Negative or not required by law. Electronically signed by: Yury Brown M.D. 01/23/2023 3:37 PM Abdomen/Pelvis CT 01/23/23 16:32 CT SCAN OF THE ABDOMEN AND PELVIS WITHOUT IV CONTRAST CLINICAL HISTORY: Esophageal distention seen on chest CT. COMPARISON STUDY: Abdominal CT dated 08/16/2022. Chest CT performed the same day 01/23/2023. TECHNIQUE: CT scan of the abdomen and pelvis is performed from the lung bases to the proximal femora. Images are reviewed in the axial, sagittal, and coronal planes. IV contrast was not administered for this examination as per the referring clinician. Note that the examination was performed in suboptimal fashion without oral and IV contrast. There is also streak artifact from the left arm which could not be elevated above the abdomen. A dose lowering technique was utilized adhering to the principles of ALARA. CT DOSE: 311.60 mGy.cm FINDINGS: Lung bases: The heart is normal in size and without pericardial effusion. The coronary arteries are densely calcified. Multifocal airspace consolidation is seen throughout the left lower lung. A 4 mm right lower lobe pulmonary nodule is seen on image #22. No pleural effusion is identified. The distal esophagus is distended and filled with fluid. Liver: The unenhanced liver is normal in size, contour, and attenuation. There is mild central intrahepatic biliary ductal dilatation. Gallbladder: Not identified and presumed surgically absent. Spleen: Normal in size and attenuation. Pancreas: The unenhanced pancreas is grossly unremarkable. Adrenal glands: Unremarkable. Kidneys: The unenhanced kidneys there is straightening of cortical atrophy and are without hydronephrosis. There are no renal calculi identified. There is no evidence of contour deforming renal mass lesion. Abdominal vasculature: The abdominal aorta is normal in course and caliber noting advanced atherosclerotic calcification. Bowel: Postsurgical changes consistent with a history of [place]-en-Y gastric bypass surgery. The gastric pouch is distended and filled with fluid/debris. The jejunum just below the gastrojejunostomy is decompressed, and the distal small bowel loops are normal in caliber. There are scattered colonic diverticula without CT evidence of acute diverticulitis. A small duodenal diverticulum is incidentally noted. The appendix is not identified and reported surgically absent. Residual enteric contrast is suggested in the rectosigmoid. Peritoneum: There is no intraperitoneal free air or abdominal ascites. Lymphadenopathy: None. Pelvic viscera: The bladder is normal as visualized. The uterus is surgically absent. No adnexal lesion is seen. Skeletal structures: The skeletal structures are osteopenic. There is moderate lumbosacral spondylosis. No lytic or blastic lesions are seen. There are subacute appearing right anterior rib fractures. Chronic/healed rib fractures are seen on the left. IMPRESSION: 1. Postsurgical change is consistent with a history of [place]-en-Y gastric bypass surgery. 2. The gastric pouch is distended and filled with fluid/debris. The jejunum just below the gastrojejunostomy is decompressed, and this suggests at least partial obstruction at the gastrojejunostomy. This could be retained to a retained food bolus within the gastric pouch or possibly anastomotic stricture. GI or surgical evaluation is advised. 3. Multifocal airspace consolidation at the left lung base is consistent with pneumonia/aspiration pneumonitis. CT pelvis chest CT report for details of thoracic findings. 4. Additional findings as above. ACT 112: Negative or not required by law. Electronically signed by: Yury Brown M.D. 01/23/2023 6:50 PM Hospital Course (1) Multifocal pneumonia: Possible related to aspiration due to vomiting CXR reviewed by me and agreed with radiologist report that showed Left midlung and left basilar airspace opacities are suggestive of multifocal pneumonia CT chest showed extensive airspace consolidation throughout the left lung as well as minimal patchy consolidation in the right upper lobe is typical for multifocal pneumonia. Received ceftriaxone, doxy and flagyl in the ER for concern for possible aspiration pneumonia with esophageal issues. Currently on IV abx with Unasyn and Guaifenesin blood cx no growth saturated well on RA Speech eval recommended soft bite size diet. aspiration precaution Continue monitor closely (2) Metabolic acidosis, increased anion gap: -Possible related to vomiting and poor oral intake - received IV fluid - Anion gap closed - Continue monitor electrolytes - resolved (3) Esophagus disorder: (4) Anastomotic stenosis of gastrojejunostomy: - Currently on clear liquid diet - The gastric pouch is distended and filled with fluid/debris. The jejunum just below the gastrojejunostomy is decompressed, and this suggests at least partial obstruction at the gastrojejunostomy. - Gastro on board - Dr. Hairston for assistance with possible needs for dilation of the anastomotic stenosis of GJ in the setting of gastric bypass surgery - S/P EGD on today showed gastritis, GJ anastomosis stenosis, dilated w passage of scope w moderate mucosal disruption. - GI recommended to keep on FL diet until repeat OP EGD on 02/13/2023 w possible repeat dilation (5) CAD (coronary artery disease): -On baby aspirin and Plavix at baseline, resume once able to take p.o. (6) Hypertension: - BP is 120/68 currently - Stable (7) Hyperlipidemia: - resume statin once can tolerate po meds (8) Diabetes mellitus type 2, controlled: - Most Hba1C 5.8 - Continue monitor BS (9) Acute kidney injury superimposed on CKD: - Cr. 1.60 , BUN 26 - Continue gentle IVF - Creatinine improved to 1.[address] chest showed 4 mm pulmonary nodule at the right lung base. Will need to monitor outpatient as per Fleischner criteria DVT ppx: teds, scds CODE: Conditional, agreeable to intubation Disposition Plan to discharge once medically stable Total Time Total Time Spent Total Time Spent (In Minutes): 35 minutes Discharge Plan Discharge Items Patient Disposition: Home - Self-Care Reason For Visit: MULTIFOCAL PNEUMONIA Discharge Diagnosis: Multifocal pneumonia: Metabolic acidosis, increased anion gap: Esophagus disorder: Anastomotic stenosis of gastrojejunostomy: CAD (coronary artery disease): Hypertension: Diabetes mellitus type 2, controlled: Acute kidney injury superimposed on CKD: Lung Nodule Activity: Resume your previous activity Non-emergency contact: Primary Care Provider and Bank Representative Call non-emergency contact if: you have any medication questions and your symptoms worsen Follow-up/Referrals: Gretta Mathur MD [Primary Care Provider] - (Date & Time 02/02/2023 11:00 AM Provider Gretta Mathur MD Department [facility] ) Diet: Full liquid Addtl Attending Provider Instructions: Follow up with your primary care provider 02/02/2023 @ 11:00 AM Gretta Mathur MD Department [facility] Follow up with Gastroenterology on 02/13/23 for outpatient EGD for possible to repeat dilation Continue full liquid diet until next appointment with gastro Continue outpatient follow CT chest for the right side lung nodule that was seen on CT chest Check BMP in 1 week to monitor your electrolytes Gastroenterology recommended to dissolve the carafate tablet in 30ml of water to make it slurry Pending Studies at Discharge: No Stand-Alone Forms: My [facility] [employer], Smoking Cessation Medications and DC Order Prescriptions: New amoxicillin-pot clavulanate 875-125 mg tablet 1 tab PO BID Qty: 6 0RF guaifenesin 600 mg tablet extended release 12hr 600 mg PO BID PRN (Reason: congestion) Qty: 10 0RF Continued metformin 500 mg tablet 500 mg PO HS sucralfate 1 gram tablet 1 g PO ACHS Rx Instructions: TAKE ONE TABLET BEFORE MEALS AND BEDTIME nortriptyline 50 mg capsule 50 mg PO HS clopidogrel 75 mg Tablet 75 mg PO QAM 30 Days Qty: 30 3RF aspirin 81 mg Tablet,Delayed Release (Dr/Ec) 81 mg PO QAM 30 Days Qty: 30 3RF albuterol sulfate 90 mcg/actuation Hfa Aerosol Inhaler 1 inh INHALATION Q4H PRN (Reason: SHORT OF BREATH) ondansetron HCl 4 mg Tablet 4 mg PO Q8H PRN (Reason: NAUSEA/VOMITING) albuterol sulfate 5 mg/mL Solution For Nebulization 2.5 mg INHALATION DIRECTED PRN (Reason: Shortness Of Breath Or Wheezing) atorvastatin 80 mg tablet 80 mg PO DAILY thiamine HCl (vitamin B1) 100 mg Tablet 100 mg PO DAILY levothyroxine 75 mcg tablet 75 mcg PO DAILY Vitamin C 100 mg Tablet 100 mg PO DAILY cyanocobalamin (vitamin B-12) 1,000 mcg/mL Syringe 1,000 mcg Q3M Rx Instructions: IM inj Q3M nitroglycerin 0.4 mg Tablet, Sublingual 0.4 mg sublingual DIRECTED PRN (Reason: Chest Pain) Rx Instructions: Place 1 tab under tongue every 5 minutes as needed for chest pain. Up to 3 doses in 15 minutes. esomeprazole magnesium [Nexium] 40 mg capsule,delayed release(DR/EC) 40 mg PO BID Qty: 60 3RF Discharge Orders: Discharge Order (Routine); Ordered 01/26/23 Ordered By: Tomas Moore Admission Data Admit Date/Time: 01/23/23 16:56 Attending Provider: Tomas Moore Admit Provider: Kari Hayes Primary Care Provider: Gretta Mathur Other Providers: Ashlyn Hairston ; Kari Hayes Other Interventions: Discharge Summary Assessment (RN) Last Done: 01/26/23 15:34
== END 2023-01-26 16:40 | disposition home or self-care (01) | DRG 393 ==
LOC: ED 13:33 → EDINP 16:56 → SUATTDRO 16:56 → 2W 20:26

== ENCOUNTER 2025-01-02 23:15 | Inpatient (IN) ==
--- NOTE | 2025-01-02 23:39 | Emergency Department Note ---
Impression & Plan Alcoholic intoxication ED Provider Note CHIEF COMPLAINT: Alcohol intoxication HISTORY OF PRESENTING ILLNESS: The patient is a 69-year-old female who arrives to the emergency department for evaluation of alcohol intoxication. The patient reports she rarely drinks alcohol at home. She states she was to have a total knee replacement performed by Dr. Morin today, however she called to cancel the procedure. She states she was too anxious to have the procedure done, and then began drinking afterwards. She states she began drinking vodka, and believes she drank an entire handle. She reports she is unsure of who called 911, and believes it was her neighbor. She states she did not fall, have head strike, and reports no pain. She denies use of anticoagulants. She reports no chest pain, or shortness of breath. She is currently on nasal cannula, however wears no oxygen at baseline. She is able to answer all questions appropriately. She reports no SI, or HI. REVIEW OF SYSTEMS: See HPI for pertinent positives and pertinent negatives. ALLERGIES: See below MEDICATIONS: See below PAST MEDICAL HISTORY: See below PHYSICAL EXAM: VITALS: Vitals are noted on the nurse's note and reviewed by myself. Vital signs stable. GENERAL: 69-year-old female, in no acute distress, nondiaphoretic, well- developed well-nourished. SKIN: The skin was without rashes, erythema, edema, or bruising. HEAD: Normocephalic atraumatic. EYES: Pupils equal round and reactive to light and accommodation. Conjunctivae without injection, sclerae without icterus. Extraocular movements intact. NOSE: Patent, turbinates without inflammation or discharge. No sinus tenderness. MOUTH: Mucous membranes moist. No tonsillar hypertrophy. Pharynx without erythema or exudate. Uvula midline. Airway patent. Tongue does not deviate. NECK: Supple without nuchal rigidity. No lymphadenopathy. Cervical spine is nontender. HEART: Tachycardia with regular rhythm without murmurs gallops or rubs. LUNGS: Coarse lung sounds throughout. ABDOMEN: Positive bowel sounds x 4. Soft, nontender, without masses or organomegaly. Castellanos sign negative. No guarding or rebound tenderness. MUSCULOSKELETAL: No muscle atrophy, erythema, or edema noted. Strength 5/5 throughout. NEURO: Patient was alert and oriented to person place and time. No focal neurological deficits. DIFFERENTIAL DIAGNOSIS: Differential diagnosis includes alcohol intoxication, drug intoxication, hypoglycemia, infectious process, intracranial bleed, psychosis, among others. ED COURSE AND MEDICAL DECISION MAKING: MONITOR: Continuous panel monitor: Order was placed for continuous panel monitor. Patient was placed on the panel monitor and continuous pulse ox. Patient was noted to be in normal sinus rhythm at an initial rate of 116 bpm per my interpretation. INTERPRETATION OF LABS: I interpreted the labs with full lab results as below in the lab section of this note. Pertinent lab results discussed in the MDM section below. INTERPRETATION OF IMAGING: Imaging studies were interpreted by myself and read by radiology as per the imaging section of this note. MDM SUMMARY: The patient is a 69-year-old female who arrives to the emergency department for evaluation of the above-stated complaint. The patient arrived during a time of high acuity, and high-volume. Initial orders were obtained from critical pathways including a saline lock, CBC, CMP, medical alcohol, cardiac monitoring, pulse oximetry, and aspiration precautions. Patient was placed on nasal cannula for alcohol induced hypoxia. Lab work shows no leukocytosis, with stable hemoglobin and hematocrit. CMP shows slight elevation in creatinine at 1.4, with no other concerning findings. Chest x-ray was obtained due to coarse lung sounds, which per my interpretation shows no acute cardiopulmonary process. Medical alcohol resulted at 348. Saline lock was established, 1 L bolus was provided. The patient will require admission for hypoxia with oxygen use. Contact was made with case management to facilitate admission to the [facility]. Dr. House from the [facility] hospitalist group agreed to evaluate and accept the patient for care. Please refer to his documentation for further patient workup and care. DIAGNOSIS: Alcohol intoxication The patient's case was discussed with Dr. Childers, who agreed with my evaluation and treatment plan. The chart was completed utilizing [employer] Speech voice recognition software. Grammatical errors, random word insertions, pronoun errors, and incomplete sentences are an occasional consequence of this system due to software limitations, ambient noise, and hardware issues. Any formal questions or concerns about the content, text, or information contained within the body of this dictation should be directly addressed to the provider for clarification. Past Med/Surg History Problem List (Updated 01/03/25 @ 01:26 by ERIC Armenta) Alcoholic intoxication (Acute) Osteoarthritis of left knee Encounter for pre-operative examination Esophageal stricture (Acute) Depressive disorder (Acute 11/23/11) Hypothyroidism (Acute 03/29/12) Cardiomyopathy History of MRSA infection (Acute) Anemia, iron deficiency (Chronic) Medical History Gastric stenosis Postgastric surgery syndrome COPD (chronic obstructive pulmonary disease) History of blood transfusion (~2019) History of alcoholism Type 2 diabetes mellitus per 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 cardiology, mid RCA LINDA 09/2020 Hx of intestinal obstruction (~2004) Osteoarthritis GERD (gastroesophageal reflux disease) controlled, stable per pt Hypothyroidism Anxiety and depression Hx of migraines Hx of sleep apnea per pt had follow-up home sleep study yrs ago which was negative Hyperlipidemia Hypertension controlled, stable per pt Esophagus disorder Arthritis Surgical History Family history of reaction to anesthesia SISTER>sweling all over ?details History of heart artery stent 1 STENT PLACED 09/2020 Nausea and vomiting after administration of anesthetic agent History of esophagogastroduodenoscopy (EGD) History of colonoscopy History of tooth extraction History of tonsillectomy and adenoidectomy History of cataract surgery RT/LEFT History of hysterectomy History of cholecystectomy History of appendectomy History of vascular access device central line removed after MRSA treatment completed Hx of gastric bypass 20 YEARS AGO Abscess 2019 Hx of I&D of left axilla abscess. MRSA POSITIVE Family History Mother Family history of diabetes mellitus Diabetes Heart disease Son Family history of diabetes mellitus Diabetes Stroke Brother Family history of diabetes mellitus Diabetes Heart disease Aunt Breast cancer Uncle Colorectal cancer Social History Smoking Status: Current some day smoker Tobacco Type: Cigarettes packs per day: 1; Second Hand Exposure: No; Do You Dip or Chew Tobacco: No; Hx Alcohol Use: No Hx Substance Use: No Preferred Language: Tamazight Communication Ability: Effective Visual Impairment: No Limitations Printmaker Required: No Beliefs That Will Affect Care: None marital status: Current Living Situation: Alone current occupational status: disabled How many Children do You have: 2 Feels Safe at Home: Yes during the past year weight has: remained stable Assistive Devices: Denture - Upper, Denture - Lower and Glasses Allergies Allergies Allergy/AdvReac Type Severity Reaction Status Date / Time Sulfa (Sulfonamide Allergy Severe AIRWAY Verified 11/13/24 15:01 Antibiotics) SWELLING Home Meds Home Medications Medication Instructions Recorded Confirmed nortriptyline 50 mg capsule 50 mg PO HS 10/01/20 01/03/25 sucralfate 1 gram tablet 1 g PO ACHS 10/01/20 01/03/25 nitroglycerin 0.4 mg sublingual 0.4 mg sublingual DIRECTED PRN 05/01/21 01/03/25 tablet Chest Pain albuterol sulfate 90 mcg/actuation 1 inh inhalation Q4H PRN SHORT OF 09/21/21 01/03/25 aerosol inhaler BREATH albuterol sulfate 5 mg/mL(0.5 %) 2.5 mg inhalation DIRECTED PRN 08/16/22 01/03/25 solution for nebulization Shortness Of Breath Or Wheezing ondansetron HCl 4 mg tablet 4 mg PO Q8H PRN NAUSEA/VOMITING 08/16/22 01/03/25 ascorbic acid (vitamin C) 100 mg 100 mg PO QAM 01/23/23 01/03/25 tablet (Vitamin C) atorvastatin 80 mg tablet 80 mg PO QAM 01/23/23 01/03/25 cyanocobalamin (vitamin B-12) 1,000 mcg UD 01/23/23 01/03/25 1,000 mcg/mL injection syringe levothyroxine 75 mcg tablet 75 mcg PO QAM 01/23/23 01/03/25 thiamine HCl (vitamin B1) 100 mg 100 mg PO QAM 01/23/23 01/03/25 tablet Previous Rx's Medication Instructions Recorded aspirin 81 mg tablet,delayed 81 mg PO QAM 30 days #30 tabs 10/02/20 release esomeprazole magnesium 40 mg 40 mg PO BID #60 caps 05/04/21 capsule,delayed release (Nexium) Results & Data (ED) Vital Signs Vital Signs - 24 hr 01/02/25 23:25 01/02/25 23:37 01/02/25 23:50 Temperature 36.8 C Temperature Source Oral Pulse Rate 127 H 116 H Pulse Rate [Apical] Pulse Rhythm Regular Pulse Rhythm [Apical] Pulse Strength Normal Pulse Strength [Apical] Respiratory Rate 17 Respiratory Effort / Characteristics Non-Labored Respiratory Depth Normal Respiratory Pattern Regular Blood Pressure 132/81 Blood Pressure [Right Arm] Blood Pressure Mean 98 Blood Pressure Mean [Right Arm] Blood Pressure Position Lying Blood Pressure Position [Right Arm] Pulse Oximetry 94 87 L Oxygen Delivery Method Nasal Cannula Room Air Nasal Cannula Oxygen Flow Rate 2 Sepsis Recent Fever Within 48 Hours No Sepsis New/Unexplained Change in Mental Status No Sepsis Action Taken by Nursing No Action Required Oxygen Flow Rate - Titration 2 Pulse Oximetry Post Tiitration 94 01/02/25 23:52 01/02/25 23:52 Temperature Temperature Source Pulse Rate 116 H Pulse Rate [Apical] 116 H Pulse Rhythm Regular Pulse Rhythm [Apical] Regular Pulse Strength Pulse Strength [Apical] Normal Respiratory Rate 18 18 Respiratory Effort / Characteristics Non-Labored Respiratory Depth Normal Respiratory Pattern Regular Blood Pressure Blood Pressure [Right Arm] 132/81 Blood Pressure Mean Blood Pressure Mean [Right Arm] 98 Blood Pressure Position Blood Pressure Position [Right Arm] Lying Pulse Oximetry 94 94 Oxygen Delivery Method Nasal Cannula Nasal Cannula Oxygen Flow Rate 2 2 Sepsis Recent Fever Within 48 Hours Sepsis New/Unexplained Change in Mental Status Sepsis Action Taken by Nursing Oxygen Flow Rate - Titration Pulse Oximetry Post Tiitration Home Medications Current Medication List: was personally reviewed by me Laboratory Data Attestation: I reviewed the patient's lab results. 01/02/25 23:34 01/02/25 23:34 Lab Results 01/02/25 Range/Units 23:34 WBC 7.26 (4.8-10.8) K/ul RBC 4.82 (4.20-5.40) M/uL Hgb 14.6 (12.0-16.0) g/dl Hct 43.0 (37.0-47.0) % MCV 89.2 (80.0-100.0) fL MCH 30.3 (25.0-34.0) pg MCHC 34.0 (32.0-36.0) g/dL RDW Std Deviation 49.1 H (36.4-46.3) fL RDW Coeff of Taye 15.2 H (11.5-14.5) % Plt Count 286 (130-400) K/uL MPV 8.7 L (9.4-12.4) fL Immature Gran % (Auto) 0.1 % Neut % (Auto) 82.4 % Lymph % (Auto) 11.7 % Grady % (Auto) 5.2 % Eos % (Auto) 0.0 % Baso % (Auto) 0.6 % Neut # (Auto) 5.98 (1.40-6.50) K/uL Lymph # (Auto) 0.85 L (1.20-3.40) K/uL Grady # (Auto) 0.38 (0.11-0.59) K/uL Eos # (Auto) 0.00 (0.00-0.50) K/uL Baso # (Auto) 0.04 (0.00-0.20) K/uL Immature Gran # (Auto) 0.01 (0.01-0.20) K/uL Sodium 142 (136-145) mmol/L Potassium 3.7 (3.5-5.1) mmol/L Chloride 102 (98-107) mmol/L Carbon Dioxide 21 (21-32) mmol/L Anion Gap 19 H (3-11) BUN 22 (6-23) mg/dl Creatinine 1.40 H (0.6-1.2) mg/dl Est Cr Clr Drug Dosing 33.2 ml/min eGFR 40.98 BUN/Creatinine Ratio 15.7 (10-20) Glucose 160 H (70-99(Fasting)) mg/dl Calcium 8.4 L (8.6-10.3) mg/dl Total Bilirubin 0.4 (0.2-1.0) mg/dl AST 65 H (13-39) U/L ALT 43 (7-52) U/L Alkaline Phosphatase 134 H (34-104) U/L Total Protein 6.6 (6.0-8.3) gm/dl Albumin 4.1 (3.4-5.0) gm/dl Globulin 2.5 (2.5-4.0) gm/dl Albumin/Globulin Ratio 1.6 (0.9-2) Ethyl Alcohol mg/dL 346.8 H (<10.0) mg/dl Administered Medications Sodium Chloride (Nss) 1,000 mls @ 999 mls/hr IV .Q1H1M ONE Stop: 01/03/25 01:29 Last Admin: 01/03/25 00:46 Dose: 999 mls/hr Documented By: GHAZALA Imaging Data Attestation: I personally reviewed and interpreted this imaging study as follows: Discharge Plan Visit Data Chief Complaint: Alcohol Intoxication Stated Complaint: ETOH ED Provider: Misti Childers ED Midlevel Provider: Katey Teresa Discharge Problem: Alcoholic intoxication Forms Stand Alone Forms: My [facility] Prescriptions Prescriptions: No Action sucralfate 1 gram tablet 1 g PO ACHS Rx Instructions: TAKE ONE TABLET BEFORE MEALS AND BEDTIME nortriptyline 50 mg capsule 50 mg PO HS aspirin 81 mg Tablet,Delayed Release (Dr/Ec) 81 mg PO QAM 30 Days Qty: 30 3RF albuterol sulfate 90 mcg/actuation Hfa Aerosol Inhaler 1 inh INHALATION Q4H PRN (Reason: SHORT OF BREATH) ondansetron HCl 4 mg Tablet 4 mg PO Q8H PRN (Reason: NAUSEA/VOMITING) albuterol sulfate 5 mg/mL Solution For Nebulization 2.5 mg INHALATION DIRECTED PRN (Reason: Shortness Of Breath Or Wheezing) atorvastatin 80 mg tablet 80 mg PO QAM thiamine HCl (vitamin B1) 100 mg Tablet 100 mg PO QAM levothyroxine 75 mcg tablet 75 mcg PO QAM Vitamin C 100 mg Tablet 100 mg PO QAM cyanocobalamin (vitamin B-12) 1,000 mcg/mL Syringe 1,000 mcg UD Rx Instructions: IM inj Q3M nitroglycerin 0.4 mg Tablet, Sublingual 0.4 mg sublingual DIRECTED PRN (Reason: Chest Pain) Rx Instructions: Place 1 tab under tongue every 5 minutes as needed for chest pain. Up to 3 doses in 15 minutes. esomeprazole magnesium [Nexium] 40 mg capsule,delayed release(DR/EC) 40 mg PO BID Qty: 60 3RF Referrals Referrals: Gretta Mathur MD [Primary Care Provider] -
[2025-01-03 00:24] LABS: Basophils # (auto) 0.04 K/uL (0.00-0.20); Basophils % (auto) 0.6 %; Hemoglobin 14.6 g/dl (12.0-16.0); Immature Granulocytes # (auto) 0.01 K/uL (0.01-0.20); Immature Granulocytes % (auto) 0.1 %; Lymphocytes # (auto) 0.85 K/uL (1.20-3.40); Lymphocytes % (auto) 11.7 %; Mean Corpuscular Hemoglobin 30.3 pg (25.0-34.0); Mean Corpuscular Volume 89.2 fL (80.0-100.0); Mean Platelet Volume 8.7 fL (9.4-12.4); Monocytes # (auto) 0.38 K/uL (0.11-0.59); Monocytes % (auto) 5.2 %; Neutrophils # (auto) 5.98 K/uL (1.40-6.50); Neutrophils % (auto) 82.4 %; Platelet Count 286 K/uL (130-400); RDW Coefficient of Variation 15.2 % (11.5-14.5); RDW Standard Deviation 49.1 fL (36.4-46.3); Red Blood Count 4.82 M/uL (4.20-5.40); White Blood Count 7.26 K/ul (4.8-10.8)
[2025-01-03 00:28] LABS: Albumin Globulin Ratio 1.6 (0.9-2); Albumin Level 4.1 gm/dl (3.4-5.0); BUN Creatinine Ratio 15.7 (10-20); Bilirubin,Total 0.4 mg/dl (0.2-1.0); Calcium 8.4 mg/dl (8.6-10.3); Creatinine Clr Calc Pharmacy 33.2 ml/min; Globulin 2.5 gm/dl (2.5-4.0); Potassium 3.7 mmol/L (3.5-5.1); Total Protein 6.6 gm/dl (6.0-8.3)
[2025-01-03] MEDS: SODIUM CHLORIDE 0.9% 1,000 ML IV ONE (00:46)
--- NOTE | 2025-01-03 01:10 | Emergency Department Note ---
ED Visit Note I was consulted by ERIC Smith. I personally made/approved the management plan and take responsibility for the patient management. I performed a substantive portion of the visit including lab evaluation and decision to admit d/t high ETOH of 346. Pt patient remains stable. Please refer to previous documentation for details of the history, physical and visit. .
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
--- NOTE | 2025-01-03 03:40 | XRay Report ---
EXAM: XR chest 1V portable CLINICAL HISTORY: concern for aspiration TECHNIQUE: Radiograph of chest was acquired. COMPARISON: 11/26/2024. FINDINGS: The lungs are clear and well-expanded with no pulmonary infiltrate or pleural effusion. The cardiomediastinal silhouette is within normal limits. No acute osseous abnormality. Osteoporotic changes seen in visualized bones. IMPRESSION: 1. No acute cardiopulmonary disease. Stable. Electronically signed by Bao Smith 01-03-2025 03:40 AM
[2025-01-03] MEDS ORDERED: NITROGLYCERIN SL 0.4 MG/TAB TAB SL PRN (03:57)
[2025-01-03] MEDS ORDERED: ACETAMINOPHEN 325 MG TAB PO PRN (03:57)
[2025-01-03] MEDS ORDERED: GLUCOSE 10 TAB/TUBE PO PRN (03:57)
[2025-01-03] MEDS ORDERED: GLUCOSE 40% GEL 15 GM TUBE PO PRN (03:57)
[2025-01-03] MEDS ORDERED: ALBUTEROL HFA 8 GM INHALER INH PRN (03:57)
[2025-01-03] MEDS ORDERED: LORazepam 2 MG/1 ML VIAL IV PRN ×3 (03:57)
[2025-01-03] MEDS ORDERED: CARBOHYDRATES FOR HYPOGLYCEMIA PO PRN (03:57)
[2025-01-03] MEDS ORDERED: Ativan IV Alcohol Withdrawal--Active Protocol IV PRN (03:57)
[2025-01-03] MEDS ORDERED: GLUCAGON FOR INJ 1 MG VIAL SQ PRN (03:57)
[2025-01-03] MEDS ORDERED: DEXTROSE 50% 50 ML SYRINGE IV PRN (03:57)
[2025-01-03] MEDS ORDERED: GABAPENTIN 1200MG ALCOHOL WITHDRAWAL LOAD PO STA (03:57)
[2025-01-03] MEDS ORDERED: ALBUTEROL 0.083% NEBU SOLN 3 ML VIAL INH PRN (04:06)
[2025-01-03] MEDS: SODIUM CHLORIDE 0.9% 1,000 ML IV SCH (05:26)
[2025-01-03] MEDS: GABAPENTIN 600 MG TAB PO ONE (05:53)
[2025-01-03] MEDS: HEPARIN SOD 5,000 UNIT/0.5 ML VIAL SQ SCH (06:39)
[2025-01-03] MEDS: LEVOTHYROXINE SODIUM 75 MCG TABLET PO SCH (06:39)
[2025-01-03 07:09] LABS: Base Excess VBG -2.7 mEq/L; HCO3 VBG 23 mmol/L; Oxygen Saturation VBG 78.7 %; PCO2 VBG 40 mmHg (38-50); PO2 VBG 49 mmHg; pH VBG 7.36 (7.36-7.41)
[2025-01-03 07:15] LABS: Basophils # (auto) 0.05 K/uL (0.00-0.20); Basophils % (auto) 0.8 %; Eosinophils # (auto) 0.01 K/uL (0.00-0.50); Eosinophils % (auto) 0.2 %; Hematocrit (blood only) 37.4 % (37.0-47.0); Hemoglobin 12.8 g/dl (12.0-16.0); Immature Granulocytes # (auto) 0.02 K/uL (0.01-0.20); Immature Granulocytes % (auto) 0.3 %; Lymphocytes % (auto) 13.1 %; Mean Corpuscular Hemoglobin 30.3 pg (25.0-34.0); Mean Corpuscular Hgb Conc 34.2 g/dL (32.0-36.0); Mean Corpuscular Volume 88.4 fL (80.0-100.0); Mean Platelet Volume 8.6 fL (9.4-12.4); Monocytes % (auto) 8.2 %; Neutrophils # (auto) 4.74 K/uL (1.40-6.50); Neutrophils % (auto) 77.4 %; Platelet Count 228 K/uL (130-400); RDW Coefficient of Variation 15.1 % (11.5-14.5); RDW Standard Deviation 48.6 fL (36.4-46.3); Red Blood Count 4.23 M/uL (4.20-5.40); White Blood Count 6.12 K/ul (4.8-10.8)
[2025-01-03] MEDS: ALBUT/IPRATROP 3MG/0.5MG NEB 3 ML VIAL NEB SCH (07:22)
[2025-01-03 07:30] VITALS: TEMP 98.1
[2025-01-03 07:35] LABS: Albumin Globulin Ratio 1.4 (0.9-2); Albumin Level 3.3 gm/dl (3.4-5.0); BUN Creatinine Ratio 18.7 (10-20); Bilirubin Direct 0.2 mg/dl (0-0.2); Bilirubin,Total 0.7 mg/dl (0.2-1.0); Creatinine Clr Calc Pharmacy 41.6 ml/min; Globulin 2.4 gm/dl (2.5-4.0); Potassium 3.8 mmol/L (3.5-5.1); Total Protein 5.7 gm/dl (6.0-8.3)
[2025-01-03] MEDS: INSULIN ASPART PER UNIT CHARGE SC SCH (07:36)
[2025-01-03] MEDS: ATORVASTATIN 40 MG TAB PO SCH (08:03)
[2025-01-03] MEDS: ASPIRIN 81 MG ECTAB PO SCH (08:03)
[2025-01-03] MEDS: MULTIVITAMIN TAB PO SCH (08:03)
[2025-01-03] MEDS: PANTOprazole 40 MG TAB PO SCH (08:03)
[2025-01-03] MEDS: FOLIC ACID 1 MG TAB PO SCH (08:03)
[2025-01-03] MEDS: ASCORBIC ACID 500 MG TAB PO SCH (08:04)
[2025-01-03] MEDS: THIAMINE HCL 100 MG TAB PO SCH (08:04)
[2025-01-03] MEDS: SUCRALFATE 1 GM TAB PO SCH (08:04)
[2025-01-03 09:53] LABS: Estimated Average Glucose 146 mg/dl; Hemoglobin A1C 6.7 % (4.5-5.6)
[2025-01-03 11:11] VITALS: RESP 16
[2025-01-03 11:31] VITALS: BP 145/79; PULSE 106; O2SAT 98
[2025-01-03] MEDS: GABAPENTIN 600 MG TAB PO SCH (12:13)
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
[2025-01-04] MEDS ORDERED: GABAPENTIN 600 MG TAB PO SCH (02:00)
[2025-01-05] MEDS ORDERED: GABAPENTIN 600 MG TAB PO SCH ×2 (02:00→06:00)
[2025-01-06] MEDS ORDERED: GABAPENTIN 600 MG TAB PO SCH (18:00)
--- NOTE | 2025-01-07 15:29 | Electrocardiogram Report ---
Test Reason : Blood Pressure : */* mmHG Vent. Rate : 103 BPM Atrial Rate : 103 BPM P-R Int : 172 ms QRS Dur : 102 ms QT Int : 360 ms P-R-T Axes : 31 -59 84 degrees QTcB Int : 472 ms Sinus tachycardia Left axis deviation Minimal voltage criteria for LVH, may be normal variant ( [place] product ) Abnormal ECG When compared with ECG of 23-Jan-2023 13:39, No significant change was found Confirmed by Ferny Law ([id number]) on 01/07/2025 3:29:17 PM Referred By: REFERRED SELF Confirmed By: Ferny Law
== END 2025-01-03 12:43 | disposition home or self-care (01) | DRG 897 ==
LOC: ED 23:15 → 2E 01-03 01:51

== ENCOUNTER 2025-02-09 07:45 | Observation (INO) ==
--- NOTE | 2024-11-20 13:06 | PAT Medication Instructions ---
Medication Instructions Date of Service November 20, 2024 Home Medications Medication Instructions Recorded aspirin 81 mg tablet,delayed 81 mg PO QAM 30 days #30 tabs 10/02/20 release esomeprazole magnesium 40 mg 40 mg PO BID #60 caps 05/04/21 capsule,delayed release (Nexium) nortriptyline 50 mg capsule 50 mg PO HS sucralfate 1 gram tablet 1 g PO ACHS aspirin 81 mg tablet,delayed release 81 mg PO QAM nitroglycerin 0.4 mg sublingual tablet 0.4 mg sublingual DIRECTED PRN Chest Pain esomeprazole magnesium 40 mg capsule,delayed release (Nexium) 40 mg PO BID albuterol sulfate 90 mcg/actuation aerosol inhaler 1 inh inhalation Q4H PRN SHORT OF BREATH albuterol sulfate 5 mg/mL(0.5 %) solution for nebulization 2.5 mg inhalation DIRECTED PRN Shortness Of Breath Or Wheezing ondansetron HCl 4 mg tablet 4 mg PO Q8H PRN NAUSEA/VOMITING ascorbic acid (vitamin C) 100 mg tablet (Vitamin C) 100 mg PO QAM atorvastatin 80 mg tablet 80 mg PO QAM cyanocobalamin (vitamin B-12) 1,000 mcg/mL injection syringe 1,000 mcg UD levothyroxine 75 mcg tablet 75 mcg PO QAM thiamine HCl (vitamin B1) 100 mg tablet 100 mg PO QAM Continue as directed nitroglycerin 0.4 mg sublingual tablet 0.4 mg sublingual DIRECTED PRN Chest Pain (if needed) cyanocobalamin (vitamin B-12) 1,000 mcg/mL injection syringe 1,000 mcg UD DO NOT take the morning of surgery sucralfate 1 gram tablet 1 g PO ACHS ascorbic acid (vitamin C) 100 mg tablet (Vitamin C) 100 mg PO QAM thiamine HCl (vitamin B1) 100 mg tablet 100 mg PO QAM Take morning of surgery With a small sip of water, OTHERWISE NOTHING TO EAT OR DRINK AFTER MIDNIGHT: aspirin 81 mg tablet,delayed release 81 mg PO QAM (unless surgeon directed otherwise) esomeprazole magnesium 40 mg capsule,delayed release (Nexium) 40 mg PO BID albuterol sulfate 90 mcg/actuation aerosol inhaler 1 inh inhalation Q4H PRN SHORT OF BREATH (use if needed; please bring with you to hospital day of surgery if possible) albuterol sulfate 5 mg/mL(0.5 %) solution for nebulization 2.5 mg inhalation DIRECTED PRN Shortness Of Breath Or Wheezing (if needed) ondansetron HCl 4 mg tablet 4 mg PO Q8H PRN NAUSEA/VOMITING (if needed) atorvastatin 80 mg tablet 80 mg PO QAM levothyroxine 75 mcg tablet 75 mcg PO QAM Take evening before surgery nortriptyline 50 mg capsule 50 mg PO HS sucralfate 1 gram tablet 1 g PO ACHS esomeprazole magnesium 40 mg capsule,delayed release (Nexium) 40 mg PO BID albuterol sulfate 90 mcg/actuation aerosol inhaler 1 inh inhalation Q4H PRN SHORT OF BREATH (if needed) albuterol sulfate 5 mg/mL(0.5 %) solution for nebulization 2.5 mg inhalation DIRECTED PRN Shortness Of Breath Or Wheezing (if needed) ondansetron HCl 4 mg tablet 4 mg PO Q8H PRN NAUSEA/VOMITING (if needed) Other Notes If you have any questions please call us at [phone] or [phone] or [phone] or [phone]
--- NOTE | 2024-11-26 10:09 | Anesthesiology Consultation ---
Date of Service November 26, 2024 Assessment & Plan (1) History of alcoholism: - Case discussed in detail with Dr. Crowley who advised patient have PCP clearance. Optimization form to be faxed to [facility] PCP with PAT testing, Dr. Mathur. Surgeon's office and patient made aware. - check BSG am DOS. - positive antibody screen: nothing additional needed per Shahram with blood bank. Patient aware, denied questions or concerns. - cardiology office visit 01/01/24 [facility]: "...dyspnea with minimal activity...iron infusions recently for low Hgb and iron...ongoing dyspnea and intermittent wheezing discussed. Dyspnea likely non cardiac. Negative nuclear imaging stress test 6 months ago...recommend pulm evaluation with complete PFTs...return in 6 months..." - Outpatient joint assessment: Patient is currently scheduled for inpatient pathway. If re-evaluated and patient/surgeon requests outpatient pathway, patient is not advised candidate for outpatient joint program from anesthesia standpoint. (2) Encounter for pre-operative examination: Chart Review Chart Review: Pending: Refer to Additional Notes / Consult section and Patient seen in Pre Admission Testing Teaching & Discussion Pre-Anesthesia Teaching/Discussion Notes: Instructed NPO after midnight before surgery, except medications with 15 cc of water. Medication instructions provided according to the PAT guidelines. History Surgery Operation Date: 12/19/24 10:00 Proposed Procedures p Left Total Knee Arthroplasty - Francesco Morin DO Height/Weight Height: 5 ft 3 in Weight: 62.4 kg Allergies Allergy/AdvReac Type Severity Reaction Status Date / Time Sulfa (Sulfonamide Allergy Severe AIRWAY Verified 11/13/24 15:01 Antibiotics) SWELLING Medications Home Medications Medication Instructions Recorded Confirmed Last Taken nortriptyline 50 mg capsule 50 mg PO HS 10/01/20 11/13/24 08/14/22 sucralfate 1 gram tablet 1 g PO ACHS 10/01/20 11/13/24 08/15/22 aspirin 81 mg tablet,delayed 81 mg PO QAM 30 days #30 tabs 10/02/20 11/13/24 08/15/22 release nitroglycerin 0.4 mg sublingual 0.4 mg sublingual DIRECTED PRN 05/01/21 11/13/24 04/19/21 tablet Chest Pain esomeprazole magnesium 40 mg 40 mg PO BID #60 caps 05/04/21 11/13/24 08/15/22 capsule,delayed release (Nexium) albuterol sulfate 90 mcg/actuation 1 inh inhalation Q4H PRN SHORT OF 09/21/21 11/13/24 Unknown aerosol inhaler BREATH albuterol sulfate 5 mg/mL(0.5 %) 2.5 mg inhalation DIRECTED PRN 08/16/22 11/13/24 Unknown solution for nebulization Shortness Of Breath Or Wheezing ondansetron HCl 4 mg tablet 4 mg PO Q8H PRN NAUSEA/VOMITING 08/16/22 11/13/24 Unknown ascorbic acid (vitamin C) 100 mg 100 mg PO QAM 01/23/23 11/13/24 Unknown tablet (Vitamin C) atorvastatin 80 mg tablet 80 mg PO QAM 01/23/23 11/13/24 Unknown cyanocobalamin (vitamin B-12) 1,000 mcg UD 01/23/23 11/13/24 Unknown 1,000 mcg/mL injection syringe levothyroxine 75 mcg tablet 75 mcg PO QAM 01/23/23 11/13/24 Unknown thiamine HCl (vitamin B1) 100 mg 100 mg PO QAM 01/23/23 11/13/24 Unknown tablet Past Medical History Medical History (Updated 11/27/24 @ 09:00 by Fidelia Holt PA-C) 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 Anxiety and depression Arthritis CAD (coronary artery disease) follows with [facility] cardiology, mid [facility] 09/2020 Cardiomyopathy "catecholamine mediated...11/2019...acute sepsis" COPD (chronic obstructive pulmonary disease) Esophagus disorder Gastric stenosis GERD (gastroesophageal reflux disease) controlled, stable per pt History of alcoholism History of blood transfusion (~2019) History of esophageal dilatation (05/04/21) dilation of the stenosis of G-Jejunostomy History of MRSA infection (~2019) 2019 [facility], left knee, and left axilla IV antibiotics x 3 months History of stomach ulcers (~2004) Hx of intestinal obstruction (~2004) Hx of migraines Hx of myocardial infarction (~2019) 09/2020-NSTEMI Hx of sleep apnea per pt had follow-up home sleep study yrs ago which was negative Hyperlipidemia Hypertension controlled, stable per pt Hypothyroidism Osteoarthritis Postgastric surgery syndrome Type 2 diabetes mellitus per [facility] EMR Patient denies h/o stroke, seizures, heart failure, or blood clots/DVTs. Exercise / Class Metabolic Activity II 4-5 Yardwork/Stairs/Walk up hill (occasional shortness of breath with one flight of stairs ongoing for several years-denies change or worsening-denies chest discomfort) Past Family History Family History Mother Family history of diabetes mellitus Diabetes Heart disease Son Family history of diabetes mellitus Diabetes Stroke Brother Family history of diabetes mellitus Diabetes Heart disease Aunt Breast cancer Uncle Colorectal cancer Past Surgical History Surgical History Abscess 2019 Hx of I&D of left axilla abscess. MRSA POSITIVE Family history of reaction to anesthesia SISTER>sweling all over ?details History of appendectomy History of cataract surgery RT/LEFT History of cholecystectomy History of colonoscopy History of esophagogastroduodenoscopy (EGD) History of heart artery stent 1 STENT PLACED 09/2020 History of hysterectomy History of tonsillectomy and adenoidectomy History of tooth extraction History of vascular access device central line removed after MRSA treatment completed Hx of gastric bypass 20 YEARS AGO Nausea and vomiting after administration of anesthetic agent Past Anesthesia History No Hx of Anesthesia Complications History of PONV History of PONV (denies needing scop patch, reports doing well with IV predosing) and Hx of Motion Sickness Social History Smoking Status: Former smoker tobacco type: cigarettes Do You Dip or Chew Tobacco: No Smoking End Date: 2020 Hx Alcohol Use: No Alcohol type: beer and hard liquor alcohol intake frequency: a few times a month Hx Substance Use: No substance use type: does not use Review of Systems Patient denies chest pain, fever, chills, cough, wheezing, or palpitations. Physical Exam Vital Signs Vitals BP 106/64 P 81 TEMP 98.2 SP02 98% on RA RESP 19 Physical Patient resting comfortably in chair in no acute distress, alert and oriented, responding appropriately throughout visit Full cervical extension range of motion without pain TMD 3.5 finger breadths Mallampati Score 2 Dentition: edentulous, full upper and lower dentures Lungs: normal respiratory effort. Good air movement, clear throughout to auscultation, no adventitious breath sounds Cardiac: regular rate and rhythm, no murmurs noted Carotid arteries: negative bruit bilat Lab Results Anesthesia Preop Results Results Anesthesia Widget: WBC 5.48 K/ul (4.8-10.8) 11/26/24 Hgb 13.0 g/dl (12.0-16.0) 11/26/24 Hct 39.2 % (37.0-47.0) 11/26/24 Plt 186 K/uL (130-400) 11/26/24 Na 139 mmol/L (136-145) 11/26/24 K 4.3 mmol/L (3.5-5.1) 11/26/24 Cl 104 mmol/L (98-107) 11/26/24 CO2 29 mmol/L (21-32) 11/26/24 BUN 14 mg/dl (6-23) 11/26/24 Creat 1.05 mg/dl (0.6-1.2) 11/26/24 Glucose Level 130 mg/dl (70-99(Fasting)) H 11/26/24 PT 10.2 Seconds (9.0-12.0) 11/26/24 PTT 24 Seconds (21-31) 11/26/24 INR 0.9 (0.9-1.1) 11/26/24 HA1c 6.9 % (4.5-5.6) H 11/26/24 Blood Type A Positive 11/26/24 Antibody Screen POSITIVE A 11/26/24 Testing Electrocardiogram Date: 01/01/24 NSR, rate 76 bpm Left anterior fascicular block Chest X-Ray Date: 11/26/24 No acute findings. Echocardiogram Date: 05/11/23 EF 60-64% Normal LV wall motion Basal septum is thickened and angulated consistent with sigmoid septum Mildly enlarged LA Grade I diastolic dysfunction Aortic root and proximal ascending aorta are borderline enlarged Stress Test Date: 06/08/23 MPHR 83% Negative for ischemia EF > 65% Cardiac Catheterization Date: 10/01/20 LM -Short, no significant disease, almost separate ostium LAD -medium caliber vessel, 20 to 30% proximal to mid disease, small tortuous distal vessel wraps around apex. Small diagonals without significant disease Circumflex -medium caliber, proximal and mid segment luminal irregularities. Large OM 2 with 50 to 60% proximal stenosis. RCA -dominant, medium caliber, mildly calcified, 100% acute on chronic mid RCA occlusion. Distal vessels faintly fills via [id number] collaterals. 1. Severe single vessel coronary artery disease-100% acute on chronic mid RCA occlusion 2. Mild to moderate nonculprit vessel [id number] to 60% proximal OM 2 3. Low intracardiac filling pressure 4. Successful PCI of mid to distal RCA with single drug-eluting stent (3.0 x 26 mm [place]; postdilated with 3.25 NC).
--- NOTE | 2025-01-01 07:27 | History & Physical Report ---
Date of Service January 01, 2025 Assessment & Plan (1) Osteoarthritis of left knee: We will proceed with a left total knee arthroplasty. Postoperatively she will be started on aspirin for DVT prophylaxis and kept overnight in the hospital for postop medical management. She plans to have [facility] physical therapy for discharge. History of Present Illness Chief Complaint: Osteoarthritis of the left knee. Primary Care Provider: Gretta Mathur MD Nicole is a pleasant 68-year-old female who has been dealing with chronic increasing left knee pain. X-rays and clinical examination have been diagnostic for advanced arthritis of the left knee. After failing extensive conservative treatment, she has elected to proceed with a left total knee arthroplasty. . Allergies Allergy/AdvReac Type Severity Reaction Status Date / Time Sulfa (Sulfonamide Allergy Severe AIRWAY Verified 11/13/24 15:01 Antibiotics) SWELLING Home Medications Medication Instructions Recorded Confirmed Type nortriptyline 50 mg capsule 50 mg PO HS 10/01/20 11/13/24 History sucralfate 1 gram tablet 1 g PO ACHS 10/01/20 11/13/24 History aspirin 81 mg tablet,delayed 81 mg PO QAM 30 days #30 tabs 10/02/20 11/13/24 Rx release nitroglycerin 0.4 mg sublingual 0.4 mg sublingual DIRECTED PRN 05/01/21 11/13/24 History tablet Chest Pain esomeprazole magnesium 40 mg 40 mg PO BID #60 caps 05/04/21 11/13/24 Rx capsule,delayed release (Nexium) albuterol sulfate 90 mcg/actuation 1 inh inhalation Q4H PRN SHORT OF 09/21/21 11/13/24 History aerosol inhaler BREATH albuterol sulfate 5 mg/mL(0.5 %) 2.5 mg inhalation DIRECTED PRN 08/16/22 11/13/24 History solution for nebulization Shortness Of Breath Or Wheezing ondansetron HCl 4 mg tablet 4 mg PO Q8H PRN NAUSEA/VOMITING 08/16/22 11/13/24 History ascorbic acid (vitamin C) 100 mg 100 mg PO QAM 01/23/23 11/13/24 History tablet (Vitamin C) atorvastatin 80 mg tablet 80 mg PO QAM 01/23/23 11/13/24 History cyanocobalamin (vitamin B-12) 1,000 mcg UD 01/23/23 11/13/24 History 1,000 mcg/mL injection syringe levothyroxine 75 mcg tablet 75 mcg PO QAM 01/23/23 11/13/24 History thiamine HCl (vitamin B1) 100 mg 100 mg PO QAM 01/23/23 11/13/24 History tablet Past Med/Surg History Problem List Osteoarthritis of left knee Encounter for pre-operative examination Esophageal stricture (Acute) Depressive disorder (Acute 11/23/11) Hypothyroidism (Acute 03/29/12) Cardiomyopathy History of MRSA infection (Acute) Anemia, iron deficiency (Chronic) Medical History Gastric stenosis Postgastric surgery syndrome COPD (chronic obstructive pulmonary disease) History of blood transfusion (~2019) History of alcoholism Type [address] 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 cardiology, mid [facility] LINDA 09/2020 Hx of intestinal obstruction (~2004) Osteoarthritis GERD (gastroesophageal reflux disease) controlled, stable per pt Hypothyroidism Anxiety and depression Hx of migraines Hx of sleep apnea per pt had follow-up home sleep study yrs ago which was negative Hyperlipidemia Hypertension controlled, stable per pt Esophagus disorder Arthritis Surgical History Family history of reaction to anesthesia SISTER>sweling all over ?details History of heart artery stent 1 STENT PLACED 09/2020 Nausea and vomiting after administration of anesthetic agent History of esophagogastroduodenoscopy (EGD) History of colonoscopy History of tooth extraction History of tonsillectomy and adenoidectomy History of cataract surgery RT/LEFT History of hysterectomy History of cholecystectomy History of appendectomy History of vascular access device central line removed after MRSA treatment completed Hx of gastric bypass 20 YEARS AGO Abscess 2019 Hx of I&D of left axilla abscess. MRSA POSITIVE Family History Mother Family history of diabetes mellitus Diabetes Heart disease Son Family history of diabetes mellitus Diabetes Stroke Brother Family history of diabetes mellitus Diabetes Heart disease Aunt Breast cancer Uncle Colorectal cancer Social History Smoking Status: Former smoker Tobacco Type: Cigarettes packs per day: 1; Second Hand Exposure: No; Do You Dip or Chew Tobacco: No; Hx Alcohol Use: No Hx Substance Use: No Preferred Language: Niuean Communication Ability: Effective Visual Impairment: No Limitations Correspondence Representative Required: No Beliefs That Will Affect Care: None marital status: Current Living Situation: Alone current occupational status: disabled How many Children do You have: 2 Feels Safe at Home: Yes during the past year weight has: remained stable Assistive Devices: Denture - Upper, Denture - Lower and Glasses Review of Systems All systems reviewed & are unremarkable except as noted in HPI & below. Physical Exam On physical exam the left knee, she is slight varus deformity. Tenderness palpation of the distal medial femoral condyle and over the medial joint line.. Constitutional WD/WN, vitals as above Eyes PERRL, conjunctivae normal, anicteric sclerae ENMT external ear and nose normal, oropharynx normal Neck trachea midline, no thyromegaly Respiratory normal respiratory effort Cardiovascular RRR, no murmur, no edema Gastrointestinal (Abdomen) normal bowel sounds, soft, nontender, no hepatosplenomegaly Psychiatric A+Ox3, euthymic affect Results & Data Results & Data Laboratory Results . Diagnostic Findings X-rays of the left knee show advanced osteoarthritis with joint space narrowing, osteophyte formation, and [id number] articulation. PG Care Time/CCT Total # of Minutes Spent Total Time Spent with Patient: Total time spent is greater than 50% in coordination of care (as documented) at patient's floor/unit and/or counseling patient: Coding Level of Care Code None Diagnoses Osteoarthritis of left knee M17.12
--- NOTE | 2025-01-02 14:32 | Anesthesiology Progress Note ---
Date of Service January 02, 2025 Anesthesia Post Procedure Transfer of Care Handoff Completed per policy Notes Mental Status: alert / awake / arousable and participated in evaluation Patient Amnestic to Procedure: Yes Nausea / Vomiting: adequately controlled Pain: adequately controlled Airway Patency, RR, SpO2: stable & adequate BP & HR: stable & adequate Hydration State: stable & adequate Neuraxial Anesthesia: was administered and sensory block is resolving Anesthetic Complications: no major complications apparent and Pt Satisfied with anesthetic care
--- NOTE | 2025-02-05 11:01 | History & Physical Report ---
Date of Service February 05, 2025 Assessment & Plan (1) Osteoarthritis of left knee: We will proceed with a left total knee arthroplasty. Postoperatively she will be started on aspirin for DVT prophylaxis and kept overnight in the hospital for postop medical management. She plans to have [facility] [address] physical therapy after discharge. History of Present Illness Chief Complaint: Osteoarthritis of the left knee. Primary Care Provider: Gretta Mathur MD Nicole is a pleasant 69-year-old female whose been dealing with chronic increasing left knee pain. X-rays and clinical exam have been diagnostic for advanced arthritis of the left knee. After failing conservative treatment, she has elected proceed with a left total knee arthroplasty.. Allergies Allergy/AdvReac Type Severity Reaction Status Date / Time Sulfa (Sulfonamide Allergy Severe AIRWAY Verified 01/29/25 12:25 Antibiotics) SWELLING Home Medications Medication Instructions Recorded Confirmed Type nortriptyline 50 mg capsule 100 mg PO HS 10/01/20 01/29/25 History sucralfate 1 gram tablet 1 g PO ACHS 10/01/20 01/29/25 History aspirin 81 mg tablet,delayed 81 mg PO QAM 30 days #30 tabs 10/02/20 01/29/25 Rx release nitroglycerin 0.4 mg sublingual 0.4 mg sublingual DIRECTED PRN 05/01/21 01/29/25 History tablet Chest Pain esomeprazole magnesium 40 mg 40 mg PO BID #60 caps 05/04/21 01/29/25 Rx capsule,delayed release (Nexium) albuterol sulfate 90 mcg/actuation 1 inh inhalation Q4H PRN SHORT OF 09/21/21 01/29/25 History aerosol inhaler BREATH albuterol sulfate 5 mg/mL(0.5 %) 2.5 mg inhalation DIRECTED PRN 08/16/22 01/29/25 History solution for nebulization Shortness Of Breath Or Wheezing ondansetron HCl 4 mg tablet 4 mg PO Q8H PRN NAUSEA/VOMITING 08/16/22 01/29/25 History ascorbic acid (vitamin C) 100 mg 100 mg PO QAM 01/23/23 01/29/25 History tablet (Vitamin C) atorvastatin 80 mg tablet 80 mg PO QAM 01/23/23 01/29/25 History cyanocobalamin (vitamin B-12) 1,000 mcg UD 01/23/23 01/29/25 History 1,000 mcg/mL injection syringe levothyroxine 75 mcg tablet 75 mcg PO QAM 01/23/23 01/29/25 History thiamine HCl (vitamin B1) 100 mg 100 mg PO QAM 01/23/23 01/29/25 History tablet folic acid 1 mg tablet 1,000 mcg PO QAM 01/29/25 01/29/25 History Past Med/Surg History Problem List Osteoarthritis of left knee Encounter for pre-operative examination Esophageal stricture (Acute) Depressive disorder (Acute 11/23/11) Hypothyroidism (Acute 03/29/12) Cardiomyopathy History of MRSA infection (Acute) Anemia, iron deficiency (Chronic) Medical History History of Clostridioides difficile infection (2019) no infection since 2019 Alcoholic intoxication History of kidney stones passed on own Gastric stenosis Postgastric surgery syndrome COPD (chronic obstructive pulmonary disease) History of blood transfusion (~2019) History of alcoholism Recently hospitalized at [facility] for alcohol intoxication, states she drank vodka and redbull and needed to stay overnight. Previous to this denies any alcohol for 12 years. Type 2 diabetes mellitus per [facility] EMR-no meds History of MRSA infection (~2019) 2019 [facility], left knee, and left axilla IV antibiotics x 3 months Cardiomyopathy "catecholamine mediated...11/2019...acute sepsis" Hx of myocardial infarction (~2019) 09/2020-NSTEMI History of stomach ulcers (~2004) 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 History of esophageal dilatation (05/04/21) dilation of the stenosis of A-[id number]-54/2025 [facility]- ? stent placed in esophagus to be removed 07/2025 CAD (coronary artery disease) follows with [facility] cardiology, mid RCA LINDA 09/2020 Hx of intestinal obstruction (~2004) Osteoarthritis GERD (gastroesophageal reflux disease) controlled, stable per pt Hypothyroidism Anxiety and depression Hx of migraines Hx of sleep apnea per pt had follow-up home sleep study yrs ago which was negative Hyperlipidemia Hypertension controlled, stable per pt Esophagus disorder 11/2024-had a procedure at [facility]- ?something placed in esophagus and is to be removed 07/2025, no difficulty swallowing currently Arthritis Surgical History Family history of reaction to anesthesia SISTER>sweling all over ?details History of heart artery stent 1 STENT PLACED 09/2020 Nausea and vomiting after administration of anesthetic agent History of esophagogastroduodenoscopy (EGD) History of colonoscopy History of tooth extraction History of tonsillectomy and adenoidectomy History of cataract surgery RT/LEFT History of hysterectomy History of cholecystectomy History of appendectomy History of vascular access device central line removed after MRSA treatment completed Hx of gastric bypass 20 YEARS AGO Abscess 2019 Hx of I&D of left axilla abscess. MRSA POSITIVE Family History Mother Family history of diabetes mellitus Diabetes Heart disease Son Family history of diabetes mellitus Diabetes Stroke Brother Family history of diabetes mellitus Diabetes Heart disease Aunt Breast cancer Uncle Colorectal cancer Social History Smoking Status: Former smoker Tobacco Type: Cigarettes packs per day: 1; Smoking End Date: 2019; Second Hand Exposure: Yes (hx of); Do You Dip or Chew Tobacco: No; Tobacco Cessation Education Requested by Patient: No Hx Alcohol Use: Yes Alcohol type: hard liquor Hx Substance Use: No Preferred Language: Uzbek Communication Ability: Effective Visual Impairment: No Limitations Mental Health Clinician Required: No Beliefs That Will Affect Care: None marital status: Current Living Situation: Alone current occupational status: disabled How many Children do You have: 2 Other Information That Helps Us Care for You: No Feels Safe at Home: Yes Safety Concerns: Feels Safe At This Time during the past year weight has: remained stable Assistive Devices: Cane, Denture - Upper, Denture - Lower, Glasses, Scooter/Electric Scooter and Walker Review of Systems All systems reviewed & are unremarkable except as noted in HPI & below. Physical Exam On physical exam of the left knee, she has a slight varus deformity. She has tenderness palpation of the distal medial femoral condyle and over the medial joint line.. Constitutional WD/WN, vitals as above Eyes PERRL, conjunctivae normal, anicteric sclerae ENMT external ear and nose normal, oropharynx normal Neck trachea midline, no thyromegaly Respiratory normal respiratory effort Cardiovascular RRR, no murmur, no edema Gastrointestinal (Abdomen) normal bowel sounds, soft, nontender, no hepatosplenomegaly Psychiatric A+Ox3, euthymic affect Results & Data Results & Data Laboratory Results . Diagnostic Findings X-rays of the left knee show advanced osteoarthritis with joint space narrowing, osteophyte formation, and kvic-yd-unom articulation. PG Care Time/CCT Total # of Minutes Spent Total Time Spent with Patient: Total time spent is greater than 50% in coordination of care (as documented) at patient's floor/unit and/or counseling patient: Coding Level of Care Code None Diagnoses Osteoarthritis of left knee M17.12
[~2025-02-09 07:45] MED LIST changes: +ACETAMINOPHEN 500 MG TAB PO SCH; +BUPIVACAINE 0.25% PF 30 ML VIAL ONE; +BUPIVACAINE 0.5 % 5 MG/1 ML PF 10ML VIAL ONE; -CRFUDL PO; -CYM/30 PO; +DEXAMETHASONE SOD INJ 4 MG/ML VIAL ONE; +EPINEPHrine INJ 1 MG/ML AMP ONE; +FAMOTIDINE 20 MG TAB PO SCH; -FOLI1TAB8 PO; +GABAPENTIN 300 MG CAP PO SCH; +LR 500ML BOLUS, THEN 15ML/HR IV SCH; +LR 60ML/HR IV SCH; +MIDAZOLAM HCL 1 MG/ML 2ML VIAL ONE; -MISO200T PO; -NORT25CA PO; -NRN300 PO; +ONDANSETRON INJ 2 MG/ML 2 ML VIAL ONE; -PRLSR20 PO; +PROPOFOL IV EMULSION 10 MG/ML 20 ML VIAL IV ONE; +ROPIV 0.5% 246mg, Ketorolac 30mg, EPINEPHrine 0.5mg in NSS INFIL SCH; +TRANEXAMIC ACID 1,000 MG **IV Intra-op IV SCH; +TRANEXAMIC ACID 1,000 MG **IV Pre-op IV SCH; -VTMB12100 PO; +ceFAZolin 2000MG 2,000 MG/15 ML SYR IV SCH; +dexAMETHasone**PF** 10 MG/ML VIAL IV SCH
[2025-02-09] MEDS: GABAPENTIN 300 MG CAP PO SCH (08:36)
[2025-02-09] MEDS: ACETAMINOPHEN 500 MG TAB PO SCH (08:36)
[2025-02-09] MEDS: dexAMETHasone**PF** 10 MG/ML VIAL IV SCH (08:36)
[2025-02-09] MEDS: FAMOTIDINE 20 MG TAB PO SCH (08:36)
[2025-02-09] MEDS: LR 60ML/HR IV SCH (08:37)
[2025-02-09] MEDS: LR 500ML BOLUS, THEN 15ML/HR IV SCH (08:40)
[2025-02-09] MEDS ORDERED: MIDAZOLAM HCL 1 MG/ML 2ML VIAL ONE (09:00)
[2025-02-09] MEDS ORDERED: ONDANSETRON INJ 2 MG/ML 2 ML VIAL ONE (09:00)
[2025-02-09] MEDS ORDERED: PROPOFOL IV EMULSION 10 MG/ML 20 ML VIAL IV ONE (09:00)
[2025-02-09] MEDS ORDERED: LIDOCAINE 2% 2 ML VIAL/AMP(20MG/ML) INFIL ONE (09:00)
[2025-02-09] MEDS ORDERED: ePHEDrine sulfate 50 MG/ML AMP IV PRN (09:25)
[2025-02-09] MEDS ORDERED: ONDANSETRON INJ 2 MG/ML 2 ML VIAL IV PRN (09:25)
[2025-02-09] MEDS ORDERED: ATROPINE SULFATE 0.1 MG/ML 10ML SYR IV PRN (09:25)
[2025-02-09] MEDS ORDERED: PROMETHAZINE HCL 6.25 MG in SODIUM CHLORIDE 0.9% 50 ML IV PRN (09:25)
[2025-02-09] MEDS ORDERED: fentaNYL citrate PF 100 MCG/2 ML VIAL IV PRN (09:25)
--- NOTE | 2025-02-09 09:41 | History & Physical Bridge Note ---
Date of Service February 09, 2025 History & Physical Bridge Note I have examined the patient, reviewed the History & Physical and in the interval since the performance of the History & Physical I have noted the following changes of clinical significance: no changes noted
[2025-02-09] MEDS: TRANEXAMIC ACID 1,000 MG **IV Pre-op IV SCH (10:19)
[2025-02-09] MEDS: ceFAZolin 2000MG 2,000 MG/15 ML SYR IV SCH (10:36)
[2025-02-09] MEDS: ROPIV 0.5% 246mg, Ketorolac 30mg, EPINEPHrine 0.5mg in NSS INFIL SCH (11:07)
[2025-02-09] MEDS: ORTHO JOINT ANESTHETIC ONE (11:07)
[2025-02-09] MEDS: TRANEXAMIC ACID 1,000 MG **IV Intra-op IV SCH (11:40)
--- NOTE | 2025-02-09 12:12 | Operative Report ---
PG Post Operative Report Pre & Post Diagnosis Operation Date: 02/09/25 10:00 Pre-Op Diagnosis: Left Knee Arthritis Post-Op Diagnosis: Left Knee Arthritis I identified the patient and participated in the time-out.: Yes Procedure Operation Date: 02/09/25 10:00 Actual Procedures p Left Total Knee Arthroplasty(Left) - Francesco Morin DO Surgeon Francesco Morin DO Willow Machine Operator None Estimated Blood Loss 50 Findings Consistent with Post-Op Diagnosis Specimens Left femoral tibial bone Description of Procedure Implants used: I used a Faye Persona total knee arthroplasty system with a size 9 narrow PS femur, D tibia, 34 oval patella, and a size 12 CPS polyethylene bearing. All components were cemented in place with Biomet cement. Chelsy arrived [facility] for the above procedure. She was seen in the preoperative holding area and the operative extremity was identified and signed. She was given a preoperative antibiotic, TXA, a spinal anesthetic and an adductor nerve block. She was taken back to the operating room and laid on the table in supine position. She was given basic sedation. The operative knee was then prepped and draped in sterile fashion. A timeout was done, and the patient and the operative extremity was properly identified. A midline incision was made directly over the patella. Dissection was taken down to the extensor mechanism. A medial parapatellar arthrotomy was used. The medial retinaculum was released and the fat pad was mostly excised. The knee was flexed and the ACL, PCL, and meniscus were removed. A drill was sent down the center of the femoral canal followed by an intramedullary damian. Off that damian a distal femoral cutting block was placed. 9 mm was resected off the distal femur at 5 of valgus. A posterior referencing AP sizing guide was then placed on the distal femur. The femur measured to be a size 9. 2 drill holes were placed in 3 of external rotation. A 4-in-1 cutting block was then impacted into place. Anterior, posterior, and chamfer cuts were then made. The proximal tibia was then exposed. An external tibial alignment guide was placed. A tibial cut guide was then anchored in place and the proximal tibia was then resected. The posterior aspect of the knee was then opened up and any additional meniscus fragments and osteophytes were removed. The tibia measured to be a size D. The tibial plate was then placed in the appropriate rotation and the tibia was drilled and punched. Trial components were then placed. I used a size 12 CPS polyethylene insert. The knee was brought through a full range of motion and felt to be stable. The peg holes for the femoral component were then drilled. The patella was then everted and 9 mm was resected off the posterior aspect of the patella. The patella measured to be a size 34 oval. 3 peg holes were then drilled. A trial patella was placed. The knee was once again brought through a full range of motion and felt to be stable. Trial components were then removed. The surrounding soft tissues were injected with 100 cc of an orthopedic pain control cocktail. All components were then cemented into place with Biomet cement. The final polyethylene insert was then snapped into place. Once cement was dry the tourniquet was deflated. Hemostasis was obtained. A dilute betadyne lavage was then done for 3 minutes. The joint was then irrigated with normal saline solution. The medial parapatellar arthrotomy was then closed with #1 Vicryl suture. The skin was cl osed with 2-0 Vicryl, 3-0V lock suture, and darshan. A soft compressive dressing was placed. She was then transferred to a hospital bed and taken to the postanesthesia care unit in stable condition. She tolerated the procedure well. I attest to the content of the Intraoperative Record and any orders documented therein. Any exceptions are noted below.
--- NOTE | 2025-02-09 12:43 | XRay Report ---
XR knee LT 1 or 2V routine CLINICAL HISTORY: Surgical Post Op COMPARISON: 04/27/2020 FINDINGS: Interval left knee prosthesis shows no hardware complication. There is expected soft tissu e gas. Skin darshan are present. IMPRESSION: Unremarkable postoperative exam. ACT 112: Negative or not required by law. Electronically signed by: Edilberto Whitlock M.D. 02/09/2025 12:42 PM
--- NOTE | 2025-02-09 13:47 | Anesthesiology Progress Note ---
Date of Service February 09, 2025 Anesthesia Post Procedure Vital Signs Vital Signs: Temp Pulse Pulse Resp BP Pulse Ox O2 Del Method 02/09/25 13:30 36.8 C 72 15 100/56 L 96 Room Air 02/09/25 13:20 73 14 99/54 L 92 Room Air 02/09/25 13:10 73 14 95/51 L 93 Room Air 02/09/25 13:00 76 16 101/54 L 97 Room Air 02/09/25 12:50 77 14 94/51 L 94 Room Air 02/09/25 12:40 75 12 98/49 L 96 Room Air 02/09/25 12:30 76 14 102/48 L 100 Oxymask 02/09/25 12:20 78 14 98/53 L 100 Oxymask 02/09/25 12:10 36.4 C L 86 12 99/49 L 98 Oxymask 02/09/25 08:18 36.5 C 84 20 141/77 H 97 Room Air O2 Flow Rate 02/09/25 13:30 02/09/25 13:20 02/09/25 13:10 02/09/25 13:00 02/09/25 12:50 02/09/25 12:40 02/09/25 12:30 3 02/09/25 12:20 4 02/09/25 12:10 6 02/09/25 08:18 Transfer of Care Handoff Completed per policy Notes Mental Status: alert / awake / arousable Patient Amnestic to Procedure: Yes Nausea / Vomiting: adequately controlled Pain: adequately controlled Airway Patency, RR, SpO2: stable & adequate BP & HR: stable & adequate Hydration State: stable & adequate Neuraxial Anesthesia: was administered and sensory block is resolving Anesthetic Complications: no major complications apparent and Pt Satisfied with anesthetic care
[2025-02-09] MEDS ORDERED: PHENYLEPHRINE HCL 10 MG/ML VIAL ONE (13:49)
[2025-02-09] MEDS ORDERED: NALOXONE HCL 0.4 MG/1 ML VIAL/CARP IV PRN (14:25)
[2025-02-09] MEDS ORDERED: HYDROmorphone INJ 0.5 MG/0.5 ML SYR IV PRN (14:25)
[2025-02-09] MEDS ORDERED: METOCLOPRAMIDE HCL INJ 5 MG/ML 2 ML VIAL IV PRN (14:25)
[2025-02-09] MEDS ORDERED: MAGNESIUM HYDROXIDE SUSP 30 ML UDC PO PRN (14:25)
[2025-02-09] MEDS ORDERED: bisacodyL 10 MG SUPP PR PRN (14:25)
[2025-02-09] MEDS ORDERED: ALBUTEROL HFA 8 GM INHALER INH PRN (14:25)
[2025-02-09] MEDS ORDERED: NITROGLYCERIN SL 0.4 MG/TAB TAB SL PRN (14:25)
[2025-02-09] MEDS ORDERED: ALBUTEROL 0.5% NEB SOLN 2.5 MG/0.5 ML VIAL INH PRN (14:50)
[2025-02-09] MEDS: KETOROLAC TROMETHAMINE 15 MG/ML VIAL IV SCH (15:06)
[2025-02-09] MEDS: ceFAZolin 1000MG 1,000 MG/7.5 ML SYR IV SCH (18:10)
[2025-02-09] MEDS: NORTRIPTYLINE HCL 25 MG CAP PO SCH (20:44)
[2025-02-09] MEDS: ASPIRIN 81 MG ECTAB PO SCH (20:44)
[2025-02-09] MEDS: DOCUSATE SODIUM 100 MG CAP PO SCH (20:45)
[2025-02-09] MEDS: SENNA 8.6 MG TAB PO SCH (20:45)
[2025-02-09] MEDS ORDERED: NORTRIPTYLINE HCL 25 MG CAP PO SCH (21:00)
[2025-02-09] MEDS: oxyCODONE HCL IR 5 MG TAB (IMMEDIATE RELEASE) PO PRN (22:58)
[2025-02-09 23:12] VITALS: TEMP 98.1
[2025-02-10 02:32] VITALS: RESP 16
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
--- OUTSIDE RECORDS SUMMARY | 2025-02-10 04:11 | External Medical Summary | Summary of Care ---
Author Name Unknown Organization [facility] Address [address] [place] [address] Phone [phone] Care Team Providers Care Profiler Hand Name Role Phone Gretta Mathur MD Primary Care Provid er Encounter Details Date Type Department Care Team (Late st Contact Info) Description 02/03/2025 External Data Patient Risk Medial Allergies Active Allergy Reactions Criticality Noted Date Comments Sulfa Antibiotics Edema airway High 11/11/2007 documented as of this encounter (statuses as of 02/03/2025) Medications Albuterol Sulfate HFA 108 (90 Base) [...] to the painful areas 350 g 12/22/19 23 Active Prolia 60 MG/ML Subcutaneous Solution Prefilled Syringe (Denosumab) Inject 60 mg under the skin every 6 months. Do not start before April 09, 2023. 1 mL 1 04/09/20 23 Active EPINEPHrine (Anaphylaxis) 1 MG/ML Injection Solution [...] 1,000 mcgIndications:Intestinal postoperative nonabsorption 1000 mcg IM [id number] 12/21/2023 02/14/20 25 Active documented as of this encounter (statuses as of 02/03/2025) Active Problems Problem Noted Date Diagnosed Date [...] current use of insulin 08/03/2021 Atherosclerosis of [place] co ronary artery of [place] heart with angina pectoris 08/03/2021 Chronic kidney [...] as of this encounter (statuses as of 02/03/2025) Resolved Problems Problem Noted Date Diagnosed Date [...] as of this encounter (statuses as of 02/03/2025) Immunizations Name Administration Dates Next Due COVID-19 mRNA, LNP-s, No Pre serve, 2-Dose Series (Pfizer) 05/07/2021,04/09/2021 Pneumococcal Conjugate Vacci ne, 20-valent ([id number]) 09/07/2023 Pneumococcal Polysaccharide PPV23 (Pneumovax) 03/09/2022,10/04/2010 Seasonal [...] older, IM (Adacel) 04/05/2007 Varicella Zoster Vaccine (Adult) 08/27/2017 Zoster Vaccine Recombinant (Shingrix) 06/16/2021 ,10/14/2020 documented as of this encounter Social History Tobacco Use Types Packs/Day Years Used Date Smoking Tobacco: Former Cigarettes 2019 Smokeless Tobacco: Never Alcohol Use Standard [...] on file documented as of this encounter Plan of Treatment Upcoming Encounters Date Type Department Care Team (Latest Contact Info) Description 04/01/2025 11:00 AM EDT Imaging Radiology [facility] 1st [facility] [address] [address] 04/24/2025 9:00 AM EDT Laboratory Laboratory, Kiah Glover [address] [place] [phone] Stephen Dupont [address] [place] [address] 05/05/2025 9:00 AM EDT Imaging Radiology [facility] [address] [place] [address] 05/05/2025 10:00 AM EDT Office Visit Rheumatology [facility] [address] [place] [phone] Chioma Fitzgerald CRNP [address] [place] [address] [place], [place] [address] 07/02/2025 8:00 AM EDT Hospital Encounter ENDO [facility], Endoscopy Room [facility] [address] [place] [phone] Mita Canas MD [address] [place] [address] 07/02/2025 8:00 AM EDT - 07/02/2025 8:30 AM EDT Surgery ENDO [facility], Endoscopy Room [facility] [address] [place] [phone] Mita Canas MD [address] [place] [address] ESOPHAGOGASTRODUODENOSCOPY (EGD), FLEXIBLE, TRANSORAL, DIAGNOSTIC 07/17/2025 9:00 AM EDT Laboratory Laboratory, Kiah Glover [address] [address] [facility] [address] [place] [address] [address] 07/24/2025 11:00 AM EDT Office Visit Hematology/Onco logy Radha Vital [place] [address] [place], [place] [address] Ness Ho CRNP [address] [place] [address] 08/19/2025 10:40 AM EDT Office Visit Family Practice, Kiah Becker [address] [address] [address] Gretta Mathur MD [address] [place] [id number] Scheduled Procedures Name Priority Associated Diagnoses Date/Ti [...] 05/26/2025 11/26/2024, 06/05, 09/07/2023, Additional history exists CKD PHOS USE SMARTSET 99567 06/18/202506/05, 02/05/2023, 05/10/2021, Additional history exists Albumin/Creatinine Ratio 07/21/20252 024, 02/05/2023, 05/10/2021, Additional history exists CKD HGB USE SMARTSET 24892 11/26/202511/26, 07/21/2024, 07/21/2024, Additional history exists O2 [...] this encounter Medical Devices Implanted Type Area Animal Care Provider Device Identifier Shelf Expiration Date Model / Serial / Lot Stent Axios [id number] - [id number] Implanted:Qty: 1 on 09/21/2023 by Mita Canas MD at OR [facility] [employer] [facility]OSCOPY [id number] 06/04/2024 [id number] / / [id number] Stent Axios [id number] - [id number] Implanted:Qty: 1 on 11/27/2024 by Mita Canas MD at OR [facility] [employer] [facility] ENDOSCOPY [id number] 09/03/2025 [id number] / / [id number] documented as of this encounter Advance Directives [...] Discussed due to patient's condition Care Teams Profiler Hand Relationship Specialty Start Date End Date Gretta Mahtur MD [address] [place] [address] PCP - General Family Medicine 11/13/24 documented as of this encounter
--- OUTSIDE RECORDS SUMMARY | 2025-02-10 04:12 | External Medical Summary | Summary of Care ---
Author Name Unknown Organization [facility] Address [address] [place] [address] Phone [phone] Care Team Providers Care Gas Collection System Operator Name Role Phone Gretta Mathur MD Primary Care Provid er Reason for Visit * Reason Onset Date Comments Health Maintenance 01/28/2025 Encounter Details Date Type Department Care Team (Late st Contact Info) Description 01/28[facility]20[facility] [address] [place] [address] Gretta Mathur MD [address] [place] [address] Health Maintenance Allergies Active Allergy Reactions Criticality Noted Date Comments Sulfa Antibiotics Edema airway High 11/11/2007 documented as of this encounter (statuses as of 01/28/2025) Medications Albuterol Sulfate HFA 108 (90 Base) [...] (severe allergic reaction). 2 mL 11 03/09/20 Active Thiamine HCl 100 MG Oral Tablet [...] Tablet 3 11/24/2024 4:56 PM EST 05/11/20 Active Atorvastatin Calcium 80 MG Oral Tablet (Lipitor)Indicatio ns:Dyslipidemia, goal LDL below 70 TAKE ONE TABLET BY MOUTH EVERY DAY IN THE MORNING 100 Tablet 3 12/03/2024 1:13 PM EST 05/21/20 Active Albuterol Sulfate HFA 108 (90 Base) MCG/ACT Inhalation Aerosol SolutionIndication s:COPD, group A, by GOLD 2017 classification ([facility]) INHALE TWO PUFFS BY MOUTH EVERY 6 HOURS 54 g 1 10/27/2024 5:56 PM EST 08/09/20 24 025 Active Levothyroxine Sodium 88 MCG Oral Tablet [...] 01/15/2025 2:16 PM EDT 01/13/20 25 Active Hospital, Clinic, or Other Facility Administered Medication Ordered Dose Route Frequency Start Date End Date Status vitamin b-12 (Cyanocobalamin) inj 1,000 mcgIndications:Intestinal postoperative nonabsorption 1000 mcg IM [id number] 12/21/2023 02/14/20 25 Active documented as of this encounter (statuses as of 01/28/2025) Active Problems Problem Noted Date Diagnosed Date [...] current use of insulin 08/03/2021 Atherosclerosis of [place] co ronary artery of [place] heart with angina pectoris 08/03/2021 Chronic kidney [...] as of this encounter (statuses as of 01/28/2025) Resolved Problems Problem Noted Date Diagnosed Date [...] as of this encounter (statuses as of 01/28/2025) Immunizations Name Administration Dates Next Due COVID-19 mRNA, LNP-s, No Pre serve, 2-Dose Series (8aweek) 05/07/2021,04/09/2021 Pneumococcal Conjugate Vacci ne, 20-valent ([id number]) 09/07/2023 Pneumococcal Polysaccharide PPV23 (Pneumovax) 03/09/2022,10/04/2010 Seasonal [...] encounter Miscellaneous Notes * Telephone Encounter - Anita Nolasco LPN - 01/28/2025 12:24 PM EDT Care Gaps Comprehensive Care Outreach Last Office/Telemedicine Visit: 12/08/2024 (in office), Visit date not found (telemedicine) Next Office Visit: Visit date not found Hemoglobin AIC Results: Lab Results Component Value Date/Time HEMOGLOBIN A1C - [facility] 6.9 (H) 06/18/2024 08:18 AM HEMOGLOBIN A1C - [facility] 6.2 (H) 09/07/2023 11:47 AM HEMOGLOBIN A1C - [facility] 6.0 (H) 02/05/2023 07:42 AM HEMOGLOBIN A1C - [facility] 7.6 (H) 08/06/2020 10:14 AM HEMOGLOBIN A1C - [facility] 4.9 10/06/2019 02:05 PM HEMOGLOBIN A1C - [facility] 6.4 08/27/2017 01:37 PM BP Readings from Last 1 Encounters: 12/09/24 97/62 Reviewed Health Maintenance below: Health Maintenance Topic Date Due Alpha-1 Antitrypsin Never done Adult Wellness Visit Never done Diabetic Eye Exam 03/27/2024 COVID-19 Vaccine ( season) 2024 Diabetic Foot Exam 09/07/2024 Mammogram 03/26/2025 TSH 03/26/2025 HbA1c 05/26/2025 GFR 05/26/2025 CKD PHOS USE SMARTSET 15365 06/18/2025 Albumin/Creatinine Ratio 07/21/2025 Mammogram scheduled Ov scheduled Labs already ordered Eye will schedule awv Care Gap Outreach Action Taken: Spoke to patient documented in this encounter Plan of Treatment Upcoming Encounters Date Type Department Care Team (Latest Contact Info) Description 04/01/2025 11:00 AM EDT Imaging Radiology [address] [place] [address] 04/24/2025 9:00 AM EDT Laboratory Laboratory, Kiah Glover [address] [place] [phone] Stephen Dupont [address] [place] [address] 05/05/2025 9:00 AM EDT Imaging Radiology [facility] [address] [address] 05/05/2025 10:00 AM EDT Office Visit Rheumatology [facility] [address] [place] [phone] Chioma Fitzgerald CRNP [address] [place] [address] [place], [place] [address] 07/02/2025 8:00 AM EDT Hospital Encounter ENDO [facility], Endoscopy Room [facility] [address] [place] [phone] Mita Canas MD [address] [place] [address] 07/02/2025 8:00 AM EDT - 07/02/2025 8:30 AM EDT Surgery ENDO [facility], Endoscopy Room [facility] [address] [place] [phone] Mita Canas MD [address] [place] [address] ESOPHAGOGASTRODUODENOSCOPY (EGD), FLEXIBLE, TRANSORAL, DIAGNOSTIC 07/17/2025 9:00 AM EDT Laboratory Laboratory, Kiah Glover [address] [address] [address] [facility] [address] [place] [address] 07/24/2025 11:00 AM EDT Office Visit Hematology/Onco logy Radha Vital [place] [address] [place], [place] [address] Ness Ho CRNP [address] [place] [address] 08/19/2025 10:40 AM EDT Office Visit Family Practice, Kiah Becker [address] [address] Gretta Mathur MD [address] [address] Scheduled Orders Name Type Priority Associated Diagnoses Orde r Schedule MAMMOGRAM SCREENING MONA BILATERAL Medical Imaging Routine Encounter for screening mammogram for malignant neoplasm of breast Expected: 01/28/2025, Expires: 02/28/2026 PHOSPHORUS Lab Routine Chronic kidney disease, unspecified CKD stage Expected: 07/06/2025, Expires: 01/28/2026 TSH WITH FREE T4 IF INDICATED Lab Routine Screening for thyroid disorder Expected: 03/26/2025, Expires: 01/28/2026 ALBUMIN / CREATININE RATIO, URINE Lab Routine Chronic kidney disease, unspecified CKD stage Expected: 07/31/2025 (Approximate), Expires: 01/28/2026 Scheduled Procedures Name Priority Associated Diagnoses Date/Ti [...] Additional history exists CKD PHOS USE SMARTSET 56457 06/18/202506/05, 02/05/2023, 05/10/2021, Additional history exists Albumin/Creatinine Ratio 07/21/2025 024, 02/05/2023, 05/10/2021, Additional history exists CKD HGB USE SMARTSET 86999 11/26/202511/26, 07/21/2024, 07/21/2024, Additional history exists O2 [...] this encounter Medical Devices Implanted Type Area [place]ra [place]ta Roofer Helper Device Identifier Shelf Expiration Date Model / Serial / Lot Stent Axios [id number] - [id number] Implanted:Qty: 1 on 09/21/2023 by Mita Canas MD at OR [facility] [id number] 06/04/2024 [id number] / / [id number] Stent Axios [id number] - [id number] Implanted:Qty: 1 on 11/27/2024 by Mita Canas MD at OR [facility]OSCOPY [id number] 09/03/2025 [id number] / / [id number] documented as of this encounter Visit Diagnoses Diagnosis Encounter for screening mammogram for malignant neoplasm of breast- Primary Other screening mammogram Chronic kidney disease, unspecified CKD stage Screening for thyroid disorder Encounter for removal of pancreatic stent documented in this encounter Advance Directives * Full Code [...] Discussed due to patient's condition Care Teams Gas Collection System Operator Relationship Specialty Start Date End Date Gretta Mathur MD [address] [place] [address] PCP - General Family Medicine 11/13/24 documented as of this encounter
--- OUTSIDE RECORDS SUMMARY | 2025-02-10 04:12 | External Medical Summary | Summary of Care ---
Author Name Unknown Organization [facility] Address [address] [place] [address] Phone [phone] Care Team Providers Care Head Wrestling Coach Name Role Phone Yonas Oliva MD Primary Care Provid er Reason for Visit * Reason Comments Medication Refill Encounter Details Date Type Department Care Team (Late st Contact Info) Description 01/31/[address] [facility] [address] [place] [address] Yonas Oliva MD [address] [facility] [place] [address] COPD, group A, by GOLD 2017 classification ([facility]) Allergies Active Allergy Reactions Criticality Noted Date Comments Sulfa Antibiotics Edema airway High 11/11/2007 documented as of this encounter (statuses as of 02/02/2025) Medications Aspirin EC 81 MG Oral Tablet Delayed ReleaseIndications :Cardiomyopathy, unspecified type ([facility]) Take by mouth 1 Tablet in the [...] reaction). 2 mL 11 03/09/20 23 Active Ezetimibe 10 MG Oral Tablet (Zetia)Indications :Dyslipidemia, goal LDL below 70 Take 1 Tablet by mouth in the morning. 90 Tablet 3 4 6:35 AM EST 02/01/20 24 Active Sucralfate 1 GM Oral Tablet (Carafate)Indicati ons:Anastomotic ulcer TAKE ONE TABLET BY MOUTH IN THE MORNING, ONE TABLET AT NOON, ONE TABLET IN THE EVENING, AND ONE TABLET BEFORE BEDTIME 400 Tablet 3 5 4:56 PM EST 05/11/20 24 Active Atorvastatin Calcium 80 MG Oral Tablet (Lipitor)Indicatio ns:Dyslipidemia, goal LDL below 70 TAKE ONE TABLET BY MOUTH EVERY DAY IN THE MORNING 100 Tablet 3 5 1:13 PM EST 05/21/20 24 Active Levothyroxine Sodium 88 MCG Oral Tablet (Levoxyl)Indicatio ns:Acquired hypothyroidism Take 1 Tablet by mouth daily first thing in the morning 30 minutes prior to food or other meds. 90 Tablet 3 5 9:45 AM EST 08/30/20 24 Active Ondansetron 4 MG Oral Tablet Disintegrating (Zofran) Place 1 Tablet on tongue daily as needed for Nausea. 30 Tablet 3 4 6:47 PM EST 09/16/20 24 Active Esomeprazole Magnesium 40 MG Oral Capsule Delayed ReleaseIndications :Anastomotic ulcer Take 1 Capsule by mouth in the morning and 1 Capsule before bedtime. 60 Capsule 3 4 6:47 PM EST 09/16/20 24 Active Nortriptyline HCl 50 MG Oral Capsule (Pamelor)Indicatio ns:Major depressive disorder, recurrent episode, moderate (HCC),Primary insomnia Take 2 Capsules by mouth at bedtime. 180 Capsule 1 5 2:16 PM EDT 01/13/20 25 Active Albuterol Sulfate HFA 108 (90 Base) MCG/ACT Inhalation Aerosol Solution INHALE TWO PUFFS BY MOUTH EVERY 6 HOURS 20.1 g 1 02/03/20 25 Active Albuterol Sulfate HFA 108 (90 Base) MCG/ACT Inhalation Aerosol SolutionIndication s:COPD, group A, by GOLD 2017 classification ([facility]) INHALE TWO PUFFS BY MOUTH EVERY 6 HOURS 54 g 1 4 5:56 PM EST 08/09/20 24 025 Discontin ued(Refil l) Hospital, Clinic, or Other Facility Administered Medication Ordered Dose Route Frequency Start Date End Date Status vitamin b-12 (Cyanocobalamin) inj 1,000 mcgIndications:Intestinal postoperative nonabsorption 1000 mcg IM [id number] 12/21/2023 02/14/20 25 Active documented as of this encounter (statuses as of 02/02/2025) Active Problems Problem Noted Date Diagnosed Date [...] current use of insulin 08/03/2021 Atherosclerosis of [place] co ronary artery of [place] heart with angina pectoris 08/03/2021 Chronic kidney [...] as of this encounter (statuses as of 02/02/2025) Resolved Problems Problem Noted Date Diagnosed Date [...] as of this encounter (statuses as of 02/02/2025) Immunizations Name Administration Dates Next Due COVID-19 mRNA, LNP-s, No Pre serve, 2-Dose Series (Gusto) 05/07/2021,04/09/2021 Pneumococcal Conjugate Vacci ne, 20-valent ([id number]) 09/07/2023 Pneumococcal Polysaccharide PPV23 (Pneumovax) 03/09/2022,10/04/2010 Seasonal [...] Years Used Date Smoking Tobacco: Former Cigarettes - 2019 Smokeless Tobacco: Never Alcohol Use Standard [...] 01/06/2025 Does the household have a re lar source of income? (Household - for ages [...] encounter Miscellaneous Notes * Telephone Encounter - Omar Mckoy [facility] - 02/02/2025 7:43 AM EDTSigned Prescriptions: Disp Refills Albuterol Sulfate HFA 108 (90 Base) MCG/AC*20.1 g 1 Sig: INHALE TWO PUFFS BY MOUTH EVERY 6 HOURSAuthorizing Provider: YONAS OLIVA User: OMAR MCKOY documented in this encounter Plan of Treatment Upcoming Encounters Date Type Department Care Team (Latest Contact Info) Description 04/01/2025 11:00 AM EDT [facility] [address] [place] [address] 04/24/2025 9:00 AM EDT Laboratory Laboratory, Kiah Glover [address] [facility] [place] [address] Kiah [facility] [address] [place] [address] 05/05/2025 9:00 AM EDT Imaging Radiology [facility] [address] [place] [address] 05/05/2025 10:00 AM EDT Office Visit Rheumatology [facility] [address] [place] [phone] Chioma Fitzgerald, ERIC [facility], [place] [address] 07/02/2025 8:00 AM EDT Hospital Encounter ENDO [facility], Endoscopy Room [facility] [address] [place] [address] Mita Canas MD [address] [place] [address] 07/02/2025 8:00 AM EDT - 07/02/2025 8:30 AM EDT Surgery ENDO [facility], Endoscopy Room [facility] [address] [place] [phone] iMta Canas MD [address] [place] [address] ESOPHAGOGASTRODUODENOSCOPY (EGD), FLEXIBLE, TRANSORAL, DIAGNOSTIC 07/17/2025 9:00 AM EDT Laboratory Laboratory, Kiah Glover [address] [place] [address] [facility] [address] [place] [address] 07/24/2025 11:00 AM EDT Office Visit Hematology/Onco logy Radha Vital [place] [address] [facility] [address] Ness Ho CRNP [address] [facility] [address] 08/19/2025 10:40 AM EDT Office Visit Family Practice, [place] [address] [facility] [place] [address] Yonas Oliva MD [address] [facility] [place] [place] [address] Scheduled Procedures Name Priority Associated Diagnoses Date/Ti [...] Additional history exists CKD PHOS USE SMARTSET 19702 06/18/202506/05, 02/05/2023, 05/10/2021, Additional history exists Albumin/Creatinine Ratio 07/21/2025 024, 02/05/2023, 05/10/2021, Additional history exists CKD HGB USE SMARTSET 23670 11/26/202511/26, 07/21/2024, 07/21/2024, Additional history exists O2 [...] this encounter Medical Devices Implanted Type Area Automation And Controls Manager Device Identifier Shelf Expiration Date Model / Serial / Lot Stent Axios [id number] - [id number] Implanted:Qty: 1 on 09/21/2023 by Mita Canas MD at OR [facility] [employer] [facility]OSCOPY [id number] 06/04/2024 [id number] / / [id number] Stent Axios [id number] - [id number] Implanted:Qty: 1 on 11/27/2024 by Mita Canas MD at OR [facility] [employer] [facility] ENDOSCOPY [id number] 09/03/2025 [id number] / / [id number] documented as of this encounter Visit Diagnoses Diagnosis COPD, group A, by GOLD 2017 classification (HCC) Encounter for removal of pancreatic stent documented [...] Discussed due to patient's condition Care Teams Head Wrestling Coach Relationship Specialty Start Date End Date Yonas Oliva MD [address] [place] [address] PCP - General Family Medicine 11/13/24 documented as of this encounter
--- OUTSIDE RECORDS SUMMARY | 2025-02-10 04:12 | External Medical Summary | Summary of Care ---
Author Name Unknown Organization [facility] Address [address] [place] [address] Phone [phone] Care Team Providers Care Med Spec Name Role Phone Yonas Mathur MD Primary Care Provid er Reason for Visit * Reason Comments Medication Refill Encounter Details Date Type Department Care Team (Late st Contact Info) Description 01/11/2025 Refill [facility] [address] [place] [address] Yonas Mathur MD [address] [place] [address] Major depressive disorder, recurrent episode, moderate (HCC); Primary insomnia Allergies Active Allergy Reactions Criticality Noted Date Comments Sulfa Antibiotics Edema airway High 11/11/2007 documented as of this encounter (statuses as of 01/12/2025) Medications Aspirin EC 81 MG Oral Tablet [...] allergic reaction). 2 mL 11 03/09/20 Active Ezetimibe 10 MG Oral Tablet (Zetia)Indications [...] 5 1:13 PM EST 05/21/20 24 Active Albuterol Sulfate HFA 108 (90 Base) MCG/ACT Inhalation Aerosol SolutionIndication s:COPD, group A, by GOLD 2017 classification ([facility]) INHALE TWO PUFFS BY MOUTH EVERY 6 HOURS 54 g 1 4 5:56 PM EST 08/09/20 24 025 Active [...] Active Nortriptyline HCl 50 MG Oral Capsule (Pamelor)Chucktio ns:Major depressive disorder, recurrent episode, moderate (HCC),Primary insomnia Take 2 Capsules by mouth at bedtime. 180 Capsule 1 01/13/20 25 Active Nortriptyline HCl 50 MG Oral Capsule (Pamelor)Indicatio ns:Major depressive disorder, recurrent episode, moderate (HCC),Primary insomnia Take 2 Capsules by mouth at bedtime. 180 Capsule 1 4 3:16 PM EST 07/22/20 24 025 Discontin ued(Refil l) Hospital, Clinic, or Other Facility Administered Medication Ordered Dose Route Frequency Start Date End Date Status vitamin b-12 (Cyanocobalamin) inj 1,000 mcgIndications:Intestinal postoperative nonabsorption 1000 mcg IM [id number] 12/21/2023 02/14/20 25 Active documented as of this encounter (statuses as of 01/12/2025) Active Problems Problem Noted Date Diagnosed Date [...] current use of insulin 08/03/2021 Atherosclerosis of [place] co ronary artery of [place] heart with angina pectoris 08/03/2021 Chronic kidney [...] as of this encounter (statuses as of 01/12/2025) Resolved Problems Problem Noted Date Diagnosed Date [...] as of this encounter (statuses as of 01/12/2025) Immunizations Name Administration Dates Next Due COVID-19 mRNA, LNP-s, No Pre serve, 2-Dose Series (Pfizer) 05/07/2021,04/09/2021 Pneumococcal Conjugate Vacci ne, 20-valent ([id number]) 09/07/2023 Pneumococcal Polysaccharide PPV23 (Pneumovax) 03/09/2022,10/04/2010 Seasonal [...] encounter Miscellaneous Notes * Telephone Encounter - Samreen Owens ernesto - 01/12/2025 1:38 PM EDTSigned Prescriptions: Disp Refills Nortriptyline HCl 50 MG Oral Capsule (Jacinta*180 Ca*1 Sig: Take 2 Capsules by mouth at bedtime.Authorizing Provider: YONAS MATHUR User: SAMREEN OWENS documented in this encounter Plan of Treatment Upcoming Encounters Date Type Department Care Team (Latest Contact Info) Description 01/23/2025 9:00 AM EDT Laboratory Laboratory, [address] [place] [phone] [facility] [address] [place] [address] 04/24/2025 9:00 AM EDT Laboratory Laboratory, [address] [place] [address] [facility] [address] [place] [address] 05/05/2025 9:00 AM EDT Imaging Radiology [facility] [address] [place] [phone] 05/05/2025 10:00 AM EDT Office Visit Rheumatology [facility] [address] [phone] Chioma Fitzgerald CRNP [address] [place] [address] [place] [address] 07/02/2025 8:00 AM EDT Hospital Encounter [facility]O [facility] [address] [phone] Mita Canas MD [address] [place] [address] 07/02/2025 8:00 AM EDT - 07/02/2025 8:30 AM EDT Surgery ENDO [facility], End[facility] [address] [place] [phone] Mita Canas MD [address] [place] [address] ESOPHAGOGASTRODUODENOSCOPY (EGD), FLEXIBLE, TRANSORAL, DIAGNOSTIC 07/17/2025 9:00 AM EDT Laboratory Laboratory, [address] [place] [phone] [facility] [address] [facility] [place] [address] 07/24/2025 11:00 AM EDT Office Visit Hematology/Onco logy [facility] [place] [address] [facility] [phone] Ness Ho CRNP [address] [facility] [place] [address] Scheduled Procedures Name Priority Associated Diagnoses Date/Ti [...] Additional history exists CKD PHOS USE SMARTSET 59626 06/18/202506/05, 02/05/2023, 05/10/2021, Additional history exists Albumin/Creatinine Ratio 07/21/2025 024, 02/05/2023, 05/10/2021, Additional history exists CKD HGB USE SMARTSET 02172 11/26/202511/26, 07/21/2024, 07/21/2024, Additional history exists O2 [...] this encounter Medical Devices Implanted Type Area Repairer Screen Crusher Device Identifier Shelf Expiration Date Model / Serial / Lot Stent Axios [id number] - [id number] Implanted:Qty: 1 on 09/21/2023 by Mita Canas MD at OR [facility] [employer] : ENDOSCOPY [id number] 06/04/2024 [id number] / / [id number] Stent Axios [id number] - [id number] Implanted:Qty: 1 on 11/27/2024 by Mita Canas MD at OR [facility] : ENDOSCOPY [id number] 09/03/2025 [id number] / / [id number] documented as of this encounter Visit Diagnoses Diagnosis Major depressive disorder, recurrent episode, moderate (HCC) Major depressive disorder, recurrent episode, moderate Primary insomnia Persistent disorder of initiating or maintaining sleep Encounter for removal of pancreatic stent documented [...] Discussed due to patient's condition Care Teams Med Spec Relationship Specialty Start Date End Date Yonas Mathur MD [address] [place] [address] PCP - General Family Medicine 11/13/24 documented as of this encounter
[2025-02-10] MEDS: LEVOTHYROXINE SODIUM 75 MCG TABLET PO SCH (05:42)
--- NOTE | 2025-02-10 07:03 | Orthopedic Progress Note ---
Date of Service February 10, 2025 Assessment & Plan (1) Status post left knee replacement: Overall she is doing very well. She is not having much pain in the left knee. She will be seen by physical therapy today for ambulation and range of motion exercises. The nursing staff can change her dressing after physical therapy. She is on aspirin for DVT prophylaxis. She can be discharged to home later today. She will follow-up with orthopedics in 2 weeks. Kathy Rivera was seen and examined at bedside this morning. Overall she is doing very well. She is not having much pain in the left knee. She has been up and ambulating to the bathroom. She has no complaints.. Review of Systems All systems reviewed & are unremarkable except as noted in HPI & below. Physical Exam On physical exam of the left knee, the dressing is clean and dry. Her leg is out full extension. She has active dorsiflexion plantarflexion of her left ankle.. Results & Data Results & Data Laboratory Results . Diagnostic Findings Postoperative x-rays of the left knee show the prosthesis to be in anatomic alignment without any evidence of fracture complication, or loosening.. PG Care Time/CCT Total # of Minutes Spent Total Time Spent with Patient: Total time spent is greater than 50% in coordination of care (as documented) at patient's floor/unit and/or counseling patient: Coding Level of Care Code 41120 Post Operative Follow-Up Diagnoses Status post left knee replacement Z96.652
--- NOTE | 2025-02-10 07:04 | Discharge Summary ---
Date of Service February 10, 2025 Admission HPI (Per Admitting) Nicole is a pleasant 69-year-old female whose been dealing with chronic increasing left knee pain. X-rays and clinical exam have been diagnostic for advanced arthritis of the left knee. After failing conservative treatment, she has elected proceed with a left total knee arthroplasty.. Admission Exam (Per Admitting) On physical exam of the left knee, she has a slight varus deformity. She has tenderness palpation of the distal medial femoral condyle and over the medial joint line.. Principal Diagnosis Same as "Discharge Diagnosis" noted below under Discharge Instructions. Discharge Exam On physical exam of the left knee, the dressing is clean and dry. Her leg is out full extension. She has active dorsiflexion plantarflexion of her left ankle.. Discharge Data Procedures Performed Operation Date: 02/09/25 10:00 Actual Procedures p Left Total Knee Arthroplasty(Left) - Francesco Morin DO Ordered Studies 02/09/25 05:00 US - OR guided needle placemen Routine Hospital Course (1) Status post left knee replacement: On February 09, 2025 Nicole arrived at [facility] and underwent a left knee replacement without complication. She had a spinal anesthetic. Postoperatively, she was started on aspirin for DVT prophylaxis and transferred to the general orthopedic floors. Her hospital course was uneventful. On postop day #1, her vital signs were stable and her pain was well-controlled. She was able to participate well with physical therapy doing ambulation and range of motion exercises. She was then discharged to home. She will follow-up with orthopedics in 2 weeks. PG Care Time/CCT Total # of Minutes Spent Total Time Spent with Patient: Total time spent is greater than 50% in coordination of care (as documented) at patient's floor/unit and/or counseling patient: Discharge Plan Discharge Items Patient Disposition: Home - Self-Care Reason For Visit: Left Knee Arthritis Discharge Diagnosis: Left knee replacement Activity: Per Instructions section Non-emergency contact: Surgeon Call non-emergency contact if: your wound has increased redness and your wound has increased drainage Follow-up/Referrals: Gretta Mathur MD [Primary Care Provider] - Diet: Regular Addtl Attending Provider Instructions: Activity and Therapy Recommendations: * If you are using [facility] then therapy will be provided at your home until they feel you have accomplished all of your goals. * If you are using [facility] then Physical Therapy will be provided until they feel you are ready to start Outpatient Physical Therapy. * If you are not using home therapy then Outpatient Physical Therapy should start about 3-5 days from your day of surgery. Therapy will last about 6-10 weeks * It is important not to put a pillow under your knee when you are relaxing or sleeping. It is just as important to make sure you are getting your knee perfectly straight as it is to regain your knee bend. * You were shown a series of exercises in the hospital. Do these exercises three times each day including the exercises you were shown in physical therapy. * Get up and walk several times each day. For the first four weeks, try not to stand or walk for more than one hour at a time. If you do stand or walk for more than one hour, you will not hurt anything, but your leg will likely swell. * As you feel comfortable, you may change from the walker or crutches to a cane and then to independent walking. Medications: * Narcotic You will likely be sent home from the hospital with a prescription for the narcotic pain medication that worked best throughout your stay. * Cefadroxil -take the antibiotic twice a day for 10 days to help prevent infection. * Aspirin Most patients will be required to take Aspirin 81mg twice a day for 6 weeks after surgery. This is obtained [id number] and a prescription is not necessary. * Other medications may be prescribed for specific circumstances. If you have any questions, please call the office at . * Resume previous home medications unless otherwise instructed TEDs/Elastic Stockings: The white elastic stockings help limit swelling and prevent blood clots from forming in your legs.~ The more you wear them, the more they work. Wear them for 2 weeks. Dressing Care: The dressing can be changed after physical therapy on postop day #1. Daily dry dressing changes for a few days, especially if the incision is still draining some. If the incision is not draining then you may leave the darshan open to air. If there is a little bit of drainage or if the darshan are getting stuck on your clothing then cover the incision with a dry dressing. The darshan will be removed at your 2 week follow-up appointment. Showering: You may shower 5 days from the day of surgery as long as the incision is no longer draining. You may shower with the darshan exposed. Let soapy water run over the darshan and pat them dry. Do not scrub or soak the incision. Diet: You may resume your previous diet. Things To Watch For: * Drainage from the incision site that occurs more than one week after your surgery. * Increased redness at the incision site. * Fever above 102 degrees Fahrenheit. * Unusual chest pain or shortness of breath. * Call [facility] at with any of the above problems Follow-Up Visit: Follow-up with Dr. Morin's office 2-3 weeks after your day of surgery. We will remove your dasrhan and answer any questions. If you have any additional questions or concerns, Dr Morin is usually in the office at the same time and will be available An appointment was probably scheduled when you signed-up for surgery in the office. If you have any questions call Office Instructions: More detailed instructions as well as Frequently Asked Questions were provided in a folder by our office when you signed-up for surgery. Please review these instructions when you get home. If you have any further questions or concerns, please feel free to call the office at [phone] Pending Studies at Discharge: No Stand-Alone Forms: [facility], Smoking Cessation Medications and DC Order Prescriptions: New cefadroxil 500 mg capsule 500 mg PO BID 10 Days Qty: 20 0RF oxycodone 5 mg tablet 5 mg PO Q6H PRN (Reason: pain) Qty: 30 0RF Continued sucralfate 1 gram tablet 1 g PO ACHS Rx Instructions: TAKE ONE TABLET BEFORE MEALS AND BEDTIME nortriptyline 50 mg capsule 100 mg PO HS albuterol sulfate 90 mcg/actuation Hfa Aerosol Inhaler 1 inh INHALATION Q4H PRN (Reason: SHORT OF BREATH) ondansetron HCl 4 mg Tablet 4 mg PO Q8H PRN (Reason: NAUSEA/VOMITING) albuterol sulfate 5 mg/mL Solution For Nebulization 2.5 mg INHALATION DIRECTED PRN (Reason: Shortness Of Breath Or Wheezing) atorvastatin 80 mg tablet 80 mg PO QAM thiamine HCl (vitamin B1) 100 mg Tablet 100 mg PO QAM levothyroxine 75 mcg tablet 75 mcg PO QAM Vitamin C 100 mg Tablet 100 mg PO QAM cyanocobalamin (vitamin B-12) 1,000 mcg/mL Syringe 1,000 mcg UD Rx Instructions: IM inj Q3M nitroglycerin 0.4 mg Tablet, Sublingual 0.4 mg sublingual DIRECTED PRN (Reason: Chest Pain) Rx Instructions: Place 1 tab under tongue every 5 minutes as needed for chest pain. Up to 3 doses in 15 minutes. esomeprazole magnesium [Nexium] 40 mg capsule,delayed release(DR/EC) 40 mg PO BID Qty: 60 3RF folic acid 1 mg tablet 1,000 mcg PO QAM Prolia 60 mg/mL Syringe 60 mg SUBCUT UD Rx Instructions: every six months Changed aspirin 81 mg Tablet,Delayed Release (Dr/Ec) 81 mg PO BID 42 Days Qty: 84 3RF Discharge Orders: Discharge Order (Routine); Ordered 02/10/25 Ordered By: Francesco Morin Admission Data Admit Date/Time: 02/09/25 12:13 Attending Provider: Francesco Morin Admit Provider: Francesco Morin Primary Care Provider: Gretta Mathur
[2025-02-10 07:28] VITALS: BP 115/69; PULSE 82; O2SAT 98
[2025-02-10] MEDS: ATORVASTATIN 40 MG TAB PO SCH (08:20)
[2025-02-10] MEDS: dexAMETHasone 4 MG TAB PO SCH (08:20)
[2025-02-10] MEDS: MULTIVITAMIN TAB PO SCH (08:21)
[2025-02-10] MEDS: FOLIC ACID 1 MG TAB PO SCH (08:21)
== END 2025-02-10 12:18 | disposition home or self-care (01) ==
LOC: ASU 07:45 → 3N 07:45